=== PATIENT | male | born 1965 | race Caucasian/White ===

== ENCOUNTER 2020-01-13 06:44 | Emergency (ER) | payer MEDICARE, MEDICAID, SELFPAY ==
[2020-01-13 06:44] VITALS: BP 256/114; PULSE 95; RESP 24; TEMP 36.2; O2SAT 100
[2020-01-13] MEDS: GLUCOSE ORAL GEL 15 GM OF GLUCSE IN 37.5 GM TUBE (06:54)
[2020-01-13] MEDS: DEXTROSE 50% 25 GM/50 ML SYRINGE (06:54)
[2020-01-13 06:55] VITALS: PULSE 94
--- NOTE | 2020-01-13 06:55 | ECG_ITS ---
Measurements Intervals [place] Rate: 94 P: 65 VT: 169 QRS: 86 QRSD: 93 T: 0 QT: 341 QTc: 427 Interpretive Statements SINUS RHYTHM POSSIBLE LEFT ATRIAL ENLARGEMENT BORDERLINE ST-T WAVE ABNORMALITY- DIFFUSE LEADS BASELINE ARTIFACT- V1-V2, V4-V5 BORDERLINE ECG Electronically Signed On 01-13-2020 7:06:25 [employer]INTER PLATE by Edmond Elias D.O.
--- NOTE | 2020-01-13 06:56 | ED.GENADULT ---
HPI - General Adult General Chief complaint: Unspecified Stated complaint: low bs Time Seen by Provider: 01/13/20 06:55 Source: patient and EMS Mode of arrival: EMS Limitations: no limitations History of Present Illness HPI narrative: Patient presented via EMS for hypoglycemia. Per EMS report, they were called to patient's home by the patient's for the patient was found to have a blood sugar in the 30s, had altered mental status, confused, slightly combative. Patient was given intramuscular glucagon, transported to our facility. At the time of initial assessment, the patient is awake and alert. He has no reports of pain. He reports taking too much insulin and not eating any food. Earlier in the night, the EMS record also been called for hypoglycemia, patient had been given dextrose, and the patient had refused transport. Patient follows with Dr. Huynh, he is a hemodialysis patient obtaining hemodialysis Monday, Monday, Monday. Patient denies any recent medication changes. No recent illnesses. He denies any head, chest, or abdominal pain. He denies nausea or vomiting. He denies diarrhea. Related Data Home Medications Medication Instructions Recorded Confirmed nicotine 21 mg/24 hr daily See Rx Instructions .ROUTE .COMPLEX 09/23/19 12/20/19 transdermal patch pantoprazole 40 mg tablet,delayed 40 mg PO DAILY tablet 09/23/19 12/20/19 release tamsulosin 0.4 mg capsule 0.4 mg PO DAILY 09/23/19 12/20/19 B complex-vitamin C-folic acid 1 tablet PO DAILY 11/07/19 12/20/19 cholecalciferol (vitamin D3) 2,000 unit PO DAILY 11/07/19 12/20/19 Lantus U-100 Insulin 10 units SUBCUT BID 12/20/19 12/20/19 calcitriol 0.25 mcg PO 3XW 12/20/19 12/20/19 calcium carbonate 200 mg calcium 200 mg PO DAILY tablet 12/22/19 12/24/19 (500 mg) chewable tablet carvedilol 25 mg tablet See Rx Instructions .ROUTE .COMPLEX 12/22/19 12/24/19 furosemide 80 mg tablet See Rx Instructions .ROUTE .COMPLEX 12/22/19 12/24/19 glucagon (human recombinant) 1 mg See Rx Instructions .ROUTE .COMPLEX 12/22/19 12/24/19 solution for injection insulin lispro 100 unit/mL See Rx Instructions SUB-Q .COMPLEX 12/22/19 12/24/19 subcutaneous solution Renal Vitamin 1 tablet PO DAILY 12/24/19 12/24/19 oxycodone 5 mg PO Q4H PRN 12/24/19 12/24/19 Allergies Allergy/AdvReac Type Severity Reaction Status Date / Time scopolamine AdvReac Severe Confusion Verified 12/20/19 07:22 Review of Systems Review of Systems: Narrative: CONSTITUTIONAL: Denies fever, chills, or sweats. EYES: Denies visual changes, redness, or discharge. ENT: Denies rhinorrhea, congestion, sore throat, or otalgia. CARDIOVASCULAR: Denies chest pain, palpitations, or edema. RESPIRATORY: Denies cough or dyspnea. GASTROINTESTINAL: Denies abdominal pain, nausea, vomiting, or diarrhea. GENITOURINARY: Denies dysuria or hematuria. SKIN: Denies rash or itching. MUSCULOSKELETAL: Denies back pain, joint pain, or myalgia. NEUROLOGIC: Denies headache, numbness, or weakness. [facility] Past Medical History Medical History Benign prostatic hyperplasia Chronic anemia Depression with anxiety End-stage renal disease on hemodialysis GERD (gastroesophageal reflux disease) Hypertension Seizure Secondary to hypoglycemia. Tobacco dependence Type 1 diabetes mellitus Diagnosed at the age of 10. Complicated by retinopathy, nephropathy, and neuropathy. Vitamin D deficiency disease Surgical History Surgical History History of spinal surgery Neurostimulator in place. Status post below knee amputation of right lower extremity December 02, 2019 at [facility]. Status post cataract extraction Status post hemorrhoidectomy Family History Family History Father Hypertension Sibling Multiple myeloma Mother Acute myelogenous leukemia Sibling Hy
[2020-01-13 06:57] LABS: Glucose Point of Care 35 (65-105)
[2020-01-13] MEDS: ONDANSETRON INJ 4 MG/2 ML VIAL IV PUSH (07:00)
--- NOTE | 2020-01-13 07:07 | PC.NURSE ---
Assumed care of pt. Pt alert and answering questions at this time. BS 146.
[2020-01-13 07:08] VITALS: BP 244/100; PULSE 92; RESP 20; O2SAT 96
[2020-01-13 07:12] LABS: Glucose Point of Care 146 (65-105)
[2020-01-13 07:13] LABS: Basophils Absolute Auto 0.1 K/mm3 (0.0-0.1); Basophils Percent Auto 0.8 % (0.2-1.2); Eosinophils Absolute Auto 0.6 K/mm3 (0-0.3); Eosinophils Percent Auto 5.3 % (0-4.4); Hematocrit 31.3 % (42.0-52.0); Hemoglobin 9.7 g/dL (14.0-18.0); Immature Granulocyte Absolute 0.07 K/mm3 (0.00-0.031); Immature Granulocyte Percent A 0.6 % (0-0.5); Lymphocytes Absolute Auto 2.23 K/mm3 (0.9-3.2); Mean Corpuscular Hemoglobin 31.9 pg (26-34); Mean Platelet Volume 9.7 fl (7.4-10.4); Monocytes Absolute Auto 1.1 K/mm3 (0.1-0.6); Monocytes Percent Auto 9.4 % (2.6-8.5); Neutrophils Absolute Auto 7.6 K/mm3 (1.3-6.7); Neutrophils Percent Auto 64.9 % (45.5-73.1); Platelet Count Result 396 k/mm3 (150-375); Red Blood Count 3.04 M/mm3 (4.6-6.20); Red Cell Distribution Width 17.2 % (11.5-14.5); White Blood Count 11.8 K/mm3 (4.5-10.0)
[2020-01-13 07:26] LABS: Glucose Point of Care 187 (65-105)
[2020-01-13 07:31] LABS: Blood Urea Nitrogen 40 mg/dL (9-20); Calcium 10.7 mg/dL (8.4-10.2); Carbon Dioxide 25 mmol/L (22-30); Chloride 100 mmol/L (98-107); Estimated Glomerular Filt Rate 7; Glucose 39 mg/dL (75-110); Potassium 5.1 mmol/L (3.4-5.0); Sodium 141 mmol/L (137-145)
[2020-01-13 07:54] VITALS: BP 247/106; PULSE 91; RESP 15; O2SAT 97
[2020-01-13 07:59] LABS: Glucose Point of Care 226 (65-105)
--- NOTE | 2020-01-13 07:59 | PC.NURSE ---
BS 226.
--- NOTE | 2020-01-13 08:22 | PC.NURSE ---
BS 246
[2020-01-13 08:24] LABS: Glucose Point of Care 246 (65-105)
== END 2020-01-13 08:20 | disposition home or self-care (01) ==
PROVIDERS: Emergency Provider Emergency Medicine; PCP Emergency Medicine
DX: E10.649 Type 1 diabetes mellitus with hypoglycemia without coma (principal); E10.22 Type 1 diabetes mellitus with diabetic chronic kidney disease; I12.0 Hypertensive chronic kidney disease with stage 5 chronic kidney disease or end stage renal disease; N18.6 End stage renal disease; Z99.2 Dependence on renal dialysis; N40.0 Benign prostatic hyperplasia without lower urinary tract symptoms; E55.9 Vitamin D deficiency, unspecified; F17.210 Nicotine dependence, cigarettes, uncomplicated; K21.9 Gastro-esophageal reflux disease without esophagitis; Z79.4 Long term (current) use of insulin; D64.9 Anemia, unspecified
CPT/HCPCS: 36415; 80048; 82948; 85025; 93005; 96374; 96375; 99284; A9270; J2405

== ENCOUNTER 2020-01-20 09:18 | Inpatient (IN) | payer MEDICARE, MEDICAID, SELFPAY ==
[2020-01-20] VITALS (31 sets, daily range): BP systolic 93–300; BP diastolic 52–140; PULSE 72–143; RESP 11–36; TEMP 35.7–37.1; O2SAT 95–100; BMI 21.4
--- NOTE | ~2020-01-20 | XR_ITS ---
XR chest 1V portable 01/21/2020 05:57 Indication: Respiratory failure Procedure: AP portable chest Comparison: Comparison to multiple prior studies sequentially, with oldest reviewed study dated 05/2020. Findings: Heart size normal. Improving interstitial edema. Possible small effusion. No pneumothorax. There is atherosclerosis. Impression: 1: Improving interstitial edema. Reviewed, dictated and finalized at location A. Impression: 1: Improving interstitial edema.
--- NOTE | ~2020-01-20 | XR_ITS ---
EXAMINATION: XR chest 1V portable DATE: 01/20/2020 10:08 INDICATION: Cough. TECHNIQUE: A single frontal view of the chest was obtained. COMPARISON: Chest single view 12/22/2019 FINDINGS: There is a diffuse interstitial pattern, consistent with mild pulmonary edema. No pleural e ffusion or pneumothorax. The heart size is normal. An electronic device overlies the abdomen. IMPRESSION: 1. Mild pulmonary edema. Reviewed, dictated and finalized at location A. IMPRESSION: 1. Mild pulmonary edema.
--- NOTE | ~2020-01-20 | US_ITS ---
EXAMINATION: US retroperitoneal duplex ltd DATE: 01/22/2020 15:20 INDICATION: Hypertension. TECHNIQUE: Multiple grayscale, color Doppler, and pulsed Doppler images of the kidneys and renal pauline suki were obtained. COMPARISON: None. FINDINGS: The aorta peak systolic velocity is 115 cm/s. The right renal artery peak systolic velocity is 71 cm/ s in the proximal segment, 64 cm/s in the mid segment, and 58 cm/s in the distal segment. The left re nal artery peak systolic velocity is 41 cm/s in the proximal segment, 57 cm/s in the mid segment, and 45 cm/s in the distal segment. IMPRESSION: 1. No Doppler evidence of renal artery stenosis. Reviewed, dictated and finalized at location A.
--- NOTE | 2020-01-20 09:17 | ED.SOB ---
HPI - SOB/Dyspnea General Chief Complaint: Shortness of Breath/Dyspnea Stated Complaint: DIFFICULTY BREATHING Time Seen by Provider: 01/20/20 09:17 Source: patient and EMS Mode of arrival: EMS Limitations: other (respiratory distress) History of Present Illness HPI Narrative: Pt is a 54 y/o male who presents to the ED, via EMS, with c/o SOB. Per EMS, pt's spouse stated that he was suddenly SOB an hour ago. Upon EMS arrival pt's O2 Sat was 76% on room air and once the pt was put on CPAP his O2 Sat was 100%. Per EMS, pt has a H/O HTN and his BP was high and his HR was 150BPM. He is a dialysis pt and gets dialysis every Monday, Monday, and Monday. Pt received dialysis on Monday and he is due for dialysis today at 12PM. He states that he still produces urine. A complete HPI is limited d/t the pt being in respiratory distress. MD elicited complaint: shortness of breath Onset (ago): hour(s) (1) Timing: constant Treatment prior to arrival: oxygen (CPAP) Related Data Home Medications Medication Instructions Recorded Confirmed nicotine 21 mg/24 hr daily 21 mg TRANSDERMAL DAILY 09/23/19 01/20/20 transdermal patch pantoprazole 40 mg tablet,delayed 40 mg PO DAILY tablet 09/23/19 01/20/20 release tamsulosin 0.4 mg capsule 0.4 mg PO DAILY 09/23/19 01/20/20 cholecalciferol (vitamin D3) 4,000 unit PO DAILY 11/07/19 01/20/20 Lantus U-100 Insulin 12 units SUBCUT QAM 12/20/19 01/20/20 calcitriol 0.25 mcg PO 3XW 12/20/19 01/20/20 carvedilol 25 mg tablet 50 mg PO BID 12/22/19 01/20/20 furosemide 80 mg tablet 80 mg PO BID 12/22/19 01/20/20 insulin lispro 100 unit/mL See Rx Instructions SUB-Q .COMPLEX 12/22/19 01/20/20 subcutaneous solution Renal Vitamin 1 tablet PO DAILY 12/24/19 01/20/20 oxycodone 5 mg PO Q6H PRN 12/24/19 01/20/20 clonidine HCl 0.4 mg PO TID 01/20/20 01/20/20 cyanocobalamin (vitamin B-12) 1,000 mcg PO DAILY 01/20/20 01/20/20 [Vitamin B-12] insulin glargine [Lantus Solostar 10 unit SUBCUT HS 01/20/20 01/20/20 U-100 Insulin] Allergies Allergy/AdvReac Type Severity Reaction Status Date / Time scopolamine AdvReac Severe Confusion Verified 12/20/19 07:22 Review of Systems Review of Systems: Narrative: A complete ROS is limited d/t pt being in respiratory distress. Respiratory: Respiratory: Reports dyspnea Genitourinary: Genitourinary: Reports other (able to produce urine) [facility] Past Medical History Medical History Benign prostatic hyperplasia Chronic anemia Depression with anxiety End-stage renal disease on hemodialysis GERD (gastroesophageal reflux disease) Hypertension Seizure Secondary to hypoglycemia. Tobacco dependence Type 1 diabetes mellitus Diagnosed at the age of 10. Complicated by retinopathy, nephropathy, and neuropathy. Vitamin D deficiency disease Surgical History Surgical History History of spinal surgery Neurostimulator in place. Status post below knee amputation of right lower extremity December 02, 2019 at [facility]. Status post cataract extraction Status post hemorrhoidectomy Family History Family History Father Hypertension Sibling Multiple myeloma Mother Acute myelogenous leukemia Sibling Hypertension Sibling Hypertension Sibling Hypertension Social History Social History Social History: The patient lives in [place] with his and their 22-year-old daughter. He is on disability. he designates his , Rosana, as his surrogate decision maker and he wishes to be a full code. He is a smoker, between 1 and 2 packs a day. He smokes marijuana daily. He denies significant alcohol use. Smoking packs per day: 2 Smoking cigarettes per day: 40.0 Years smoked: 32 Smoking pack-years: 64.00 Smoking status: Current every day smoker Riky
--- NOTE | 2020-01-20 09:19 | ECG_ITS ---
Measurements Intervals [place] Rate: 144 P: 52 MN: 133 QRS: 77 QRSD: 90 T: 93 QT: 266 QTc: 412 Interpretive Statements SINUS TACHYCARDIA, POSSIBLE ATRIAL FLUTTER NONSPECIFIC ST & T-WAVE ABNORMALITY- INF/LAT LEADS BASELINE WANDER- V4-V6 ABNORMAL ECG Electronically Signed On 01-20-2020 9:29:18 CDT by Edmond Elias D.O.
[2020-01-20 09:29] LABS: Base Excess ABG -7.8 mEq/l (+/-2.0); Fractional Inspired Oxygen 100 %; HCO3 ABG 20.3 mEq/l (22.0-26.0); Oxygen Content ABG 15.8 %vol (16.0-22.0); Oxygen Saturation ABG 99.8 % (95.0-100.0); PCO2 ABG 53.5 mmHg (35.0-45.0); PO2 ABG 538.5 mmHg (80.0-100.0); PO2 FiO2 Ratio Arterial Blood 5.39 %; Total Hemoglobin 10.5 g/dL (12.0-18.0)
[2020-01-20 09:30] LABS: Device NON-INVASIVE VENT; Modified Allen's Test Pass; Site Drawn RIGHT RADIAL; pH ABG 7.197 (7.350-7.450)
[2020-01-20 09:31] LABS: Non-Invasive Expiratory Pressure 8 CMH2O; Non-Invasive Inspiratory Pressure 14 CMH2O; Non-Invasive Vent Rate 20 /MIN
[2020-01-20] MEDS: NITROGLYCERIN OINTMENT 1 INCH DOSE TRANSDERM (09:31)
[2020-01-20 09:43] LABS: Glucose Point of Care 352 (65-105)
[2020-01-20] MEDS: FUROSEMIDE INJ 40 MG/4 ML VIAL IV PUSH ×2 (09:48→11:07)
[2020-01-20 10:12] LABS: Basophils Absolute Auto 0.1 K/mm3 (0.0-0.1); Basophils Percent Auto 0.7 % (0.2-1.2); Eosinophils Absolute Auto 0.9 K/mm3 (0-0.3); Hematocrit 30.2 % (42.0-52.0); Hemoglobin 9.4 g/dL (14.0-18.0); Immature Granulocyte Absolute 0.11 K/mm3 (0.00-0.031); Immature Granulocyte Percent A 0.6 % (0-0.5); Lymphocytes Absolute Auto 3.09 K/mm3 (0.9-3.2); Lymphocytes Percent Auto 16.9 % (18.3-44.2); Mean Corpuscular HGB Conc 31.1 g/dl (32-36); Mean Corpuscular Hemoglobin 32.2 pg (26-34); Mean Corpuscular Volume 103.4 fl (80-100); Mean Platelet Volume 10.5 fl (7.4-10.4); Monocytes Absolute Auto 1.3 K/mm3 (0.1-0.6); Monocytes Percent Auto 7.1 % (2.6-8.5); Neutrophils Absolute Auto 12.8 K/mm3 (1.3-6.7); Neutrophils Percent Auto 69.7 % (45.5-73.1); Platelet Count Result 377 k/mm3 (150-375); Red Blood Count 2.92 M/mm3 (4.6-6.20); Red Cell Distribution Width 18.1 % (11.5-14.5); White Blood Count 18.3 K/mm3 (4.5-10.0)
[2020-01-20 10:25] LABS: Prothrombin Time 12.6 Seconds (11.1-14.7)
[2020-01-20 10:26] LABS: Partial Thromboplastin Time 34.3 SECONDS (22.3-36.8)
[2020-01-20] MEDS: NITROGLYCERIN/D5W 200 MCG/ML 50 MG/250 ML BTL IV CONT (11:42)
--- NOTE | 2020-01-20 12:13 | PC.NURSE ---
Nitro paste removed after Nitro Drip administration
--- NOTE | 2020-01-20 12:15 | ECG_ITS ---
Measurements Intervals [place] Rate: 115 P: 24 CA: 194 QRS: 52 QRSD: 126 T: 134 QT: 298 QTc: 414 Interpretive Statements SINUS OR ECTOPIC ATRIAL TACHYCARDIA INTRAVENTRICULAR CONDUCTION DELAY ST-T WAVE ABNORMALITY IN ANTEROLAT/LAT LEADS- CONSIDER ISCHEMIA ABNORMAL ECG Electronically Signed On 01-20-2020 13:05:47 CDT by Edmond Elias D.O.
[2020-01-20 12:30] LABS: Alanine Aminotransferase 18 U/L (4-50); Albumin Level 4.6 g/dL (3.5-5.1); Alkaline Phosphatase 110 U/L (38-126); Aspartate Amino Transferase 28 U/L (17-59); Bilirubin,Total 0.6 mg/dL (0.2-1.3); Blood Urea Nitrogen 51 mg/dL (9-20); Calcium 9.4 mg/dL (8.4-10.2); Carbon Dioxide 22 mmol/L (22-30); Chloride 100 mmol/L (98-107); Estimated Glomerular Filt Rate 6; Glucose 384 mg/dL (75-110); Sodium 139 mmol/L (137-145)
[2020-01-20 12:31] LABS: Potassium 6.5 mmol/L (3.4-5.0)
[2020-01-20 12:38] LABS: Troponin I 0.027 ng/mL (0.000-0.034)
--- NOTE | 2020-01-20 12:48 | WPDCNINT ---
Assessment and Plan Assessment and plan (1) Acute respiratory failure with hypoxia: Code(s): J96.01 - Acute respiratory failure with hypoxia Status: Acute Assessment and Plan: acute hypoxic and hypercapnic respiratory failure secondary to pulmonary edema from volume overload secondary to end-stage renal disease and cardiomyopathy ABG and chest x-ray reviewed Lasix given plan to start dialysis as soon as possible to remove fluid. will recheck ABG post hemodialysis and will try to wean off BiPAP. Continue BiPAP for now. May need intubation if respiratory status worsens. (2) Hypertensive emergency: Code(s): I16.1 - Hypertensive emergency Status: Acute Assessment and Plan: patient on nitroglycerin infusion and I will add IV Lopressor. once patient is able to take p.o. I will resume patient's Coreg, clonidine and other medication (3) End-stage renal disease on hemodialysis: Code(s): N18.6 - End stage renal disease; Z99.2 - Dependence on renal dialysis Status: Acute Assessment and Plan: patient is due for hemodialysis today and comes in with volume overload and hyperkalemia. Nephrology consulted for hemodialysis and plan to start soon. Please see below for specific treatment for for hyperkalemia and volume overload (4) Acute hyperkalemia: Code(s): E87.5 - Hyperkalemia Status: Acute Assessment and Plan: Sodium bicarbonate 50 mg IV insulin regular 10 units IV x1 . Will not give any dextrose as patient is already hyperglycemic. hemodialysis as soon as possible (5) Pulmonary edema: Code(s): J81.1 - Chronic pulmonary edema Status: Acute Assessment and Plan: patient was given Lasix in the ED but patient will be started on dialysis soon to remove fluid (6) Type 1 diabetes mellitus: Code(s): E10.9 - Type 1 diabetes mellitus without complications Status: Acute Assessment and Plan: uncontrolled hyperglycemia .Patient will be given regular insulin of hyperkalemia. I will also resume patient's Lantus. Patient also be put on q.4 hours sliding scale. If unable to be controlled I will start patient on IV insulin infusion. Patient NPO at this time (7) CAD (coronary artery disease): Code(s): I25.10 - Atherosclerotic heart disease of [place] coronary artery without angina pectoris Status: Acute Assessment and Plan: continue aspirin, Plavix, statin and beta-graciela (8) Cardiomyopathy: Code(s): I42.9 - Cardiomyopathy, unspecified Status: Acute Assessment and Plan: see above. Dialysis for volume management Additional Plan DVT prophylaxis - SCDs for now under blood pressure is controlled Stress ulcer prophylaxis - resume home PPI Nutrition - NPO Code Status - Full Code which I confirmed with the patient's Patient's and daughter updated at bedside Total Critical Care Time - 40 minutes Due to a high probability of clinically significant, life threatening deterioration, the patient required my highest level of preparedness to intervene emergently and I personally spent this critical care time directly and personally managing the patient. This critical care time included obtaining a history; examining the patient; pulse oximetry; ordering and review of studies; arranging urgent treatment with development of a management plan; evaluation of patient's response to treatment; frequent reassessment; and discussions with other providers. It was exclusive of separately billable procedures and treating other patients and teaching time. 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 Per EMS, pt's spouse stated that he was suddenly SOB an hour ago. He is a dialysis pt and gets joel
--- NOTE | 2020-01-20 13:01 | ADMGEN ---
This patient, Ish Corley, was admitted to Intensive Care Unit-8. Patient/family oriented to hospital policies and general routines including ID bracelet, bed and alarms, visiting hours, pain management, procedures, bathroom and other care routines, personal items, smoking policy, room service/diet, and visiting hours. Valuables list has been completed. Information on how to activate the Rapid Response Team has been discussed. Patient/Family are encouraged to report perceived risks to care and to ask questions if they do not understand what they are told or what they should do.
[2020-01-20 13:06] LABS: Glucose Point of Care 386 (65-105)
[2020-01-20] MEDS: SODIUM BICARBONATE 8.4% 50 MEQ/50 ML VIAL IV PUSH (13:19)
[2020-01-20] MEDS: INSULIN HUMAN REGULAR (*BKC) 100 UNITS/ML 10 UNITS IV PUSH (13:22)
[2020-01-20 14:14] LABS: NT Pro B Type Natriuretic Pept > 35000 PG/ML (5-100)
[2020-01-20 14:17] LABS: Glucose Point of Care 292 (65-105)
[2020-01-20] MEDS: INSULIN GLARGINE (*BKC) 100 UNITS/ML 20 UNITS SUB-Q (14:22)
[2020-01-20 14:48] LABS: Hepatitis B Surface Antigen Negative (Negative)
[2020-01-20 15:56] LABS: Hepatitis B Surface Anti Res Positive
[2020-01-20 17:03] LABS: Glucose Point of Care 163 (65-105)
--- NOTE | 2020-01-20 18:30 | PM.PNNEP ---
Progress Note: A&P Assessment and Plan (1) End stage renal disease: Code(s): N18.6 - End stage renal disease Status: Acute (2) Hypertensive urgency: Code(s): I16.0 - Hypertensive urgency Status: Acute (3) Pulmonary edema: Code(s): J81.1 - Chronic pulmonary edema Status: Acute (4) Acute hyperkalemia: Code(s): E87.5 - Hyperkalemia Status: Acute Assessment and Plan: . Additional Plan HD today and possibly tomorrow FULL CONSULT TO FOLLOW Subjective Date/time seen: 01/20/20 18:30 Tolerating dialysis at the time of my visit (seen on HD at ~ 5:30PM); BiPAP in place and appears relatively comfortable; no other issues or problems noted at this time. Exam Narrative: Exam Narrative: General: WD/WN male in NAD Heart: normal S1 and S2; no rub Lungs: coarse with bibasilar crackles Abdomen: soft, nontender, nondistended, positive bowel sounds Extremities: no cyanosis or clubbing; trace edema Skin: warm and dry Objective Data Vital Signs Vital Signs: Vital Signs Temp Pulse Pulse Resp BP BP Pulse Ox 01/20/20 18:00 88 18 119/77 100 01/20/20 17:30 37.0 C 89 22 H 124/68 01/20/20 17:15 74 100/85 01/20/20 16:45 87 129/70 01/20/20 16:41 99 24 H 100 01/20/20 16:30 99 100/74 01/20/20 16:15 96 104/67 01/20/20 16:00 97 18 96/63 L 100 01/20/20 15:45 72 93/63 L 01/20/20 15:30 98 96/56 L 01/20/20 15:15 98 109/62 01/20/20 15:00 77 114/67 01/20/20 14:45 78 109/66 01/20/20 14:30 93 97/63 L 01/20/20 14:18 97 24 H 100 01/20/20 14:15 92 108/67 01/20/20 14:00 92 22 H 109/69 100 01/20/20 13:45 92 128/64 01/20/20 13:36 92 183/83 H 01/20/20 13:00 37.1 C 102 H 78 24 H 161/71 H 99 01/20/20 12:48 110 H 31 H 100 01/20/20 12:22 116 H 26 H 208/117 H 100 01/20/20 12:07 119 H 33 H 95 01/20/20 10:11 132 H 01/20/20 10:10 99 01/20/20 09:22 35.7 C L 143 H 36 H 300/140 H 100 01/20/20 09:18 142 H 34 H 100 Intake/Output Intake/Output: Intake & Output 01/17/20 01/18/20 01/19/20 01/20/20 22:59 22:59 23:59 23:59 Intake Total 0 Balance 0 Meds/Results Medications: Active Medications Generic Name Dose Route Start Last Admin Trade Name Freq PRN Reason Stop Dose Admin Albuterol 2.5 mg 01/20/20 12:41 Albuterol Sulf Neb 2.5mg/0.5ml INHALATION Q4HRT PRN Shortness Of Breath Aspirin 81 mg 01/20/20 09:00 01/20/20 16:39 Aspirin Ec PO Not Given QAM [facility] Atorvastatin Calcium 40 mg 01/20/20 09:00 01/20/20 16:39 Lipitor PO Not Given DAILY [facility] Carvedilol 50 mg 01/20/20 13:08 Coreg PO Q12HR [facility] Clonidine HCl 0.2 mg 01/20/20 14:00 01/20/20 16:40 Catapres PO Not Given Q8H [facility] Clopidogrel Bisulfate 75 mg 01/20/20 09:00 01/20/20 16:39 Plavix PO Not Given QAM [facility] Dextrose 12.5 gm 01/20/20 13:10 Dextrose 50% Syringe IV PUSH PRN PRN Hypoglycemia Protocol Glucagon 1 mg 01/20/20 13:10 Glucagon For Inj IM PRN PRN Hypoglycemia Protocol Glucose 15 gm 01/20/20 13:10 Glutose 15 PO PRN PRN Hypoglycemia Protocol Nitroglycerin/Dextrose 50 mg in 250 mls @ 0 mls/hr 01/20/20 10:55 01/20/20 14:00 Nitroglycerin In 5% Dextrose 50 Mg IV CONT 0 mcg/min .Q0M MARTHA 0 mls/hr Infusion 0 MCG/MIN Dextrose 1,000 mls @ 100 mls/hr 01/20/20 13:10 Dextrose 5% 1,000 Ml IVPB PRN PRN Hypoglycemia Protocol Insulin Aspart 3 - 6 units 01/20/20 13:10 01/20/20 17:42 Novolog SUB-Q Not Given Q4H MARTHA Protocol Insulin Glargine 20 units 01/20/20 13:09 01/20/20 14:22 Lantus SUB-Q 20 units DAILY MARTHA Administration Ipratropium [place] 0.5 mg 01/20/20 12:41 Atrovent Neb INHALATION Q4HRT PRN [place]
[2020-01-20 18:34] LABS: Alveolar/Arterial O2 Gradient 85.3 mmHg; Base Excess ABG 6.2 mEq/l (+/-2.0); Fractional Inspired Oxygen 50 %; Oxygen Content ABG 14.3 %vol (16.0-22.0); Oxygen Saturation ABG 99.6 % (95.0-100.0); Oxyhemoglobin 97.9 % THb (90.0-100.0); PCO2 ABG 40.1 mmHg (35.0-45.0); PO2 ABG 226.1 mmHg (80.0-100.0); PO2 FiO2 Ratio Arterial Blood 4.52 %; pH ABG 7.492 (7.350-7.450)
[2020-01-20 18:35] LABS: Device NON-INVASIVE VENT; Non-Invasive Expiratory Pressure 8 CMH2O; Non-Invasive Inspiratory Pressure 14 CMH2O; Non-Invasive Vent Rate 20 /MIN; Site Drawn RIGHT BRACHIAL
[2020-01-20 19:24] LABS: Blood Urea Nitrogen 22 mg/dL (9-20); Calcium 8.6 mg/dL (8.4-10.2); Carbon Dioxide 32 mmol/L (22-30); Chloride 95 mmol/L (98-107); Estimated CRCL calculation 17 ml/min; Estimated Glomerular Filt Rate 16; Glucose 146 mg/dL (75-110); Sodium 138 mmol/L (137-145)
--- NOTE | 2020-01-20 20:30 | PM.IMHP ---
H&P: HPI History of Present Illness Chief complaint: Shortness of breath. Narrative: Ish Corley is a 54-year-old male with type 1 diabetes mellitus diagnosed at the age of 10, end-stage renal disease on hemodialysis, and hypertension who presented to the emergency department earlier this morning via EMS for evaluation of shortness of breath. The patient is known to myself and the hospitalists and in fact was just admitted to our service December 20 through December 24, 2019. At that time he came in with shortness of breath, and was admitted with hypertensive urgency, volume overload, acute respiratory failure with hypoxia, and mild diabetic ketoacidosis. He received dialysis with improvement in blood pressures, and was able to be weaned off of his BiPAP. Due to mention of some chest pain and elevated troponins, he was taken to the cardiac cath lab manager which showed high-grade stenosis in the LAD which was stented. He has been doing quite well since that time. Unfortunately last night he did not sleep well due to shortness of breath, and around 07:30 his heard him making ?weird noises? and when she went to check on him, he was in significant respiratory distress and was pale and diaphoretic. In the emergency department his blood pressure was as high as 300/140 and he was started on a nitro drip. Interestingly, his chest x-ray showed only mild pulmonary edema. ABG showed a pH of 7.197, pCO2 of 53.5, PO2 of 538.5, and a bicarb of 20.3. He was placed on a CPAP per EMS and was transitioned to BiPAP on arrival. Potassium was 6.5, and he urgently started on dialysis. At the time my evaluation, he is post dialysis and has been weaned off the BiPAP. He is feeling much better at this time. He denies chest pain, pleuritic pain, shortness breath, nausea, vomiting, and diaphoresis. He states compliance with his home medications, and fact will double his clonidine dose if his blood pressures get too high. He still urinates a bit, and has not noticed a change in urine output. No fever, chills, or sweats. Denies blurry vision, polydipsia, and polyuria. Review of Systems Review of Systems: Narrative: Twelve systems were reviewed with pertinent positives and negatives as per HPI. Except as documented, all other systems were reviewed and are negative. [facility] Past Medical History Medical History (Updated 01/21/20 @ 00:18 by Anai Balderas PA-C) Benign prostatic hyperplasia Chronic anemia Coronary artery disease With non STEMI in December 2019, with stent placed to the LAD. Depression with anxiety End-stage renal disease on hemodialysis GERD (gastroesophageal reflux disease) Hypertension Seizure Secondary to hypoglycemia. Tobacco dependence Type 1 diabetes mellitus Diagnosed at the age of 10. Complicated by retinopathy, nephropathy, and neuropathy. Hemoglobin A1c was 8.1% in December 2019. Vitamin D deficiency disease Surgical History Surgical History History of spinal surgery Neurostimulator in place. Status post below knee amputation of right lower extremity December 02, 2019 at [facility]. Status post cataract extraction Status post hemorrhoidectomy Family History Family History Father Hypertension Sibling Multiple myeloma Mother Acute myelogenous leukemia Sibling Hypertension Sibling Hypertension Sibling Hypertension Social History Social History Social History: The patient lives in [place] with his and their 22-year-old daughter. He is on disability. he designates his , Rosana, as his surrogate decision maker and he wishes to be a full code. He is a smoker, between 1 and 2 packs a day. He smokes marijuana daily. He denies significant alcohol use. Smoking packs per day: 2 Smoking cigarettes per day: 40.0 Years smoked: 32
[2020-01-20 21:01] LABS: Glucose Point of Care 84 (65-105)
[2020-01-20] MEDS: carvediloL 25 MG TABLET 50 MG PO (21:05)
[2020-01-20] MEDS: CLONIDINE HCL 0.2 MG TABLET PO (21:05)
[2020-01-21] VITALS (21 sets, daily range): BP systolic 102–178; BP diastolic 54–79; PULSE 71–86; RESP 12–18; TEMP 35.4–36.9; O2SAT 90–100
[2020-01-21 00:35] LABS: Glucose Point of Care 159 (65-105)
[2020-01-21 04:28] LABS: Glucose Point of Care 99 (65-105)
[2020-01-21 04:50] LABS: Basophils Percent Auto 0.4 % (0.2-1.2); Eosinophils Absolute Auto 0.2 K/mm3 (0-0.3); Hematocrit 25.9 % (42.0-52.0); Hemoglobin 8.2 g/dL (14.0-18.0); Immature Granulocyte Absolute 0.06 K/mm3 (0.00-0.031); Immature Granulocyte Percent A 0.5 % (0-0.5); Lymphocytes Absolute Auto 1.82 K/mm3 (0.9-3.2); Lymphocytes Percent Auto 16.4 % (18.3-44.2); Mean Corpuscular HGB Conc 31.7 g/dl (32-36); Mean Corpuscular Hemoglobin 31.7 pg (26-34); Mean Platelet Volume 9.2 fl (7.4-10.4); Monocytes Absolute Auto 0.8 K/mm3 (0.1-0.6); Monocytes Percent Auto 7.4 % (2.6-8.5); Neutrophils Absolute Auto 8.1 K/mm3 (1.3-6.7); Neutrophils Percent Auto 73.3 % (45.5-73.1); Platelet Count Result 286 k/mm3 (150-375); Red Blood Count 2.59 M/mm3 (4.6-6.20); Red Cell Distribution Width 17.4 % (11.5-14.5); White Blood Count 11.1 K/mm3 (4.5-10.0)
[2020-01-21 05:11] LABS: Alanine Aminotransferase 12 U/L (4-50); Albumin Level 3.3 g/dL (3.5-5.1); Alkaline Phosphatase 69 U/L (38-126); Aspartate Amino Transferase 23 U/L (17-59); Bilirubin,Total 0.4 mg/dL (0.2-1.3); Blood Urea Nitrogen 27 mg/dL (9-20); Calcium 8.7 mg/dL (8.4-10.2); Carbon Dioxide 31 mmol/L (22-30); Chloride 98 mmol/L (98-107); Estimated CRCL calculation 14 ml/min; Estimated Glomerular Filt Rate 12; Glucose 100 mg/dL (75-110); Magnesium 2.4 mg/dL (1.6-2.3); Phosphorus 6.5 mg/dL (2.5-4.5); Potassium 3.5 mmol/L (3.4-5.0); Sodium 137 mmol/L (137-145)
[2020-01-21] MEDS: CLONIDINE HCL 0.2 MG TABLET PO ×3 (05:30→23:10)
--- NOTE | 2020-01-21 06:04 | PC.NURSE ---
Dialysis nurse relocation specialist Jeremiah notified of dialysis orders for 01/21/20
--- NOTE | 2020-01-21 07:30 | WPDINTPN ---
Progress Note: A&P Assessment and Plan (1) Acute respiratory failure with hypoxia: Code(s): J96.01 - Acute respiratory failure with hypoxia Status: Acute Assessment and Plan: acute hypoxic and hypercapnic respiratory failure secondary to pulmonary edema from volume overload secondary to end-stage renal disease and cardiomyopathy resolved has patient was given Lasix yesterday and then received hemodialysis with 2 L of fluid removed. Patient now on room air planned for another hemodialysis session today (2) Hypertensive emergency: Code(s): I16.1 - Hypertensive emergency Status: Acute Assessment and Plan: patient was started on nitroglycerin infusion on admission and I added IV Lopressor. now patient is able to take p.o. and off of nitroglycerin infusion continue Coreg, clonidine and other medications BP is controlled (3) End-stage renal disease on hemodialysis: Code(s): N18.6 - End stage renal disease; Z99.2 - Dependence on renal dialysis Status: Acute Assessment and Plan: patient received hemodialysis yesterday for volume overload and hyperkalemia. K level is normal today. Plan for another session of hemodialysis today. (4) Acute hyperkalemia: Code(s): E87.5 - Hyperkalemia Status: Acute Assessment and Plan: Received Sodium bicarbonate 50 mg IV, insulin regular 10 units IV x1 . and then dialysis potassium level normal today plan for another dialysis session today (5) Pulmonary edema: Code(s): J81.1 - Chronic pulmonary edema Status: Acute Assessment and Plan: resolved (6) Type 1 diabetes mellitus: Qualifiers: Diabetes mellitus complication status: with kidney complications Diabetes mellitus complication detail: with chronic kidney disease Chronic kidney disease stage: on chronic dialysis Qualified Code(s): E10.22 - Type 1 diabetes mellitus with diabetic chronic kidney disease; N18.6 - End stage renal disease; Z99.2 - Dependence on renal dialysis Code(s): E10.9 - Type 1 diabetes mellitus without complications Status: Acute Assessment and Plan: resume diet, Lantus and sliding scale (7) CAD (coronary artery disease): Code(s): I25.10 - Atherosclerotic heart disease of [place] coronary artery without angina pectoris Status: Acute Assessment and Plan: continue aspirin, Plavix, statin and beta-graciela (8) Cardiomyopathy: Code(s): I42.9 - Cardiomyopathy, unspecified Status: Acute Assessment and Plan: see above. Dialysis for volume management Additional Plan DVT prophylaxis - SCDs for now. patient will likely be discharged today Stress ulcer prophylaxis - continue home PPI Nutrition - advance diet Code Status - Full Code which I confirmed with the patient's patient will be transferred to ICU today and will likely be discharged post his dialysis session Case discussed with internal medicine physician Subjective Date/time seen: 01/21/20 0730 Interval history: Date of Service: 01/21/2020. Admitted with acute respiratory failure secondary to pulmonary edema, hypertensive emergency. Patient known diabetic with end-stage renal disease on hemodialysis. . Patient received hemodialysis yesterday and 2 L fluid was removed. Patient feels much better this morning. On room air. No chest pain. No shortness of breath. No abdominal pain. No nausea or vomiting. No complaints. Would like to go home. Would like to eat food. Requested Ativan for anxiety. Review of Systems Review of Systems: All systems reviewed & are unremarkable except as noted in HPI and below Exam Narrative: Exam Narrative: General: Pt is alert awake and in NAD Lungs/Chest: Trachea central Clear BS B/L, No crackles or wheezing. Cardiac: RRR. Normal S1 S2. No murmurs Circulation: Pedal pulses are intact and symmetrical. Abdomen: Normal bowel sounds.. Soft
--- NOTE | 2020-01-21 08:28 | PM.IMPN ---
Progress Note: A&P Assessment and Plan (1) Acute on chronic respiratory failure with hypoxia and hypercapnia: Code(s): J96.21 - Acute and chronic respiratory failure with hypoxia; J96.22 - Acute and chronic respiratory failure with hypercapnia Status: Acute Assessment and Plan: Result of volume overload. No longer requiring BiPAP. Now on room air. Improved after dialysis yesterday. Plan for additional dialysis session today. Discussed with director global strategic publisher sales. Possible discharge later today if stable after dialysis or at least transfer to medical floor. Transferred to medical floor as dialysis late today. Hopeful discharge tomorrow. (2) Hypertensive emergency: Code(s): I16.1 - Hypertensive emergency Status: Acute Assessment and Plan: Started on nitroglycerin infusion on admission but no longer requiring since dialysis yesterday. Telemetry reviewed on 01/21/2020 with sinus rhythm. (3) End-stage renal disease on hemodialysis: Code(s): N18.6 - End stage renal disease; Z99.2 - Dependence on renal dialysis Status: Acute Assessment and Plan: Nephrology consulted and appreciate input. Did receive dialysis yesterday. Plan for dialysis again today. (4) Type 1 diabetes mellitus: Qualifiers: Chronic kidney disease stage: on chronic dialysis Diabetes mellitus complication detail: with chronic kidney disease Diabetes mellitus complication status: with kidney complications Qualified Code(s): E10.22 - Type 1 diabetes mellitus with diabetic chronic kidney disease; N18.6 - End stage renal disease; Z99.2 - Dependence on renal dialysis Code(s): E10.9 - Type 1 diabetes mellitus without complications Status: Acute Assessment and Plan: Recent hemoglobin A1c 8.1. Was hyperglycemic on arrival but glucose now improved on review on 01/21/2020. Will continue home insulin doses. Sliding scale insulin available as needed. Will monitor. (5) Acute hyperkalemia: Code(s): E87.5 - Hyperkalemia Status: Acute Assessment and Plan: Potassium 6.5 on presentation. Now corrected since hemodialysis with current level 3.5. Will continue to monitor. (6) Coronary artery disease: Qualifiers: Associated angina: without angina Coronary Disease-Associated Artery/Lesion type: [place] artery [place] vs. transplanted heart: [place] heart Qualified Code(s): I25.10 - Atherosclerotic heart disease of [place] coronary artery without angina pectoris Code(s): I25.10 - Atherosclerotic heart disease of [place] coronary artery without angina pectoris Status: Acute Assessment and Plan: Recent stent to LAD. Will continue ASA, Plavix, atorvastatin and Coreg. Will continue to monitor. (7) DVT prophylaxis: Code(s): Z29.9 - Encounter for prophylactic measures, unspecified Status: Acute Assessment and Plan: SCDs. Time Spent With Patient Time with patient: 15 - 25 minutes Subjective Date/time seen: 01/21/20 08:28 Interval history: Date of Service: 01/21/2020. Admitted with acute respiratory failure, hypertensive emergency. Patient known diabetic with end-stage renal disease on hemodialysis. Patient feels much better this morning. On room air. No chest pain. No shortness of breath. No abdominal pain. No nausea or vomiting. Review of Systems Review of Systems: Narrative: Feeling much better. Constitutional: Constitutional: Denies chills and Denies fever(s) ENT: Reports system reviewed and no additional complaints, except as documented Cardiovascular: Cardiovascular: Denies chest pain Respiratory: Respiratory: Denies dyspnea Gastrointestinal: Gastrointestinal: Denies abdominal pain Genitourinary: Genitourinary: Reports no additional male genitourinary complaints Musculoskeletal: Musculoskeletal: Reports no additional musculoskeletal complaints Integumentary/Breasts: Skin/Breast: Denies rash Neurologic:
[2020-01-21 09:27] LABS: Glucose Point of Care 51 (65-105)
[2020-01-21] MEDS: carvediloL 25 MG TABLET 50 MG PO (09:33)
[2020-01-21] MEDS: ATORVASTATIN 40 MG TABLET PO (09:33)
[2020-01-21] MEDS: ASPIRIN 81 MG ENTERIC TABLET PO (09:33)
[2020-01-21] MEDS: CHOLECALCIFEROL 1,000 UNIT TABLET 4000 UNITS PO (09:34)
[2020-01-21] MEDS: FUROSEMIDE 80 MG TABLET PO ×2 (09:34→17:27)
[2020-01-21] MEDS: TAMSULOSIN HCL 0.4 MG CAPSULE PO (09:34)
[2020-01-21] MEDS: VITAMIN B CMPLX/VIT C/FOLIC AC 1 CAPSULE 1 CAP PO (09:34)
[2020-01-21] MEDS: SERTRALINE HCL 25 MG TABLET PO (09:34)
[2020-01-21] MEDS: CLOPIDOGREL BISULFATE 75 MG TABLET PO (09:34)
[2020-01-21] MEDS: PANTOPRAZOLE 40 MG TABLET PO (09:34)
[2020-01-21] MEDS: CYANOCOBALAMIN 1,000 MCG TABLET 1000 MCG PO (09:34)
[2020-01-21] MEDS: NICOTINE (*PBKC) 14 MG PATCH 1 PATCH TRANSDERM (10:23)
--- NOTE | 2020-01-21 10:23 | PM.CNNEP ---
Assessment and Plan Assessment and plan (1) End stage renal disease: Code(s): N18.6 - End stage renal disease Status: Acute Assessment and Plan: HD tomorrow and continue M/W/F schedule electrolytes, volume status, and clearance acceptable (2) Hypertensive urgency: Code(s): I16.0 - Hypertensive urgency Status: Acute Assessment and Plan: doing significantly better at this time back on home BP medications etiology??? - rebound hypertension from missing clonidine? - renal artery stenosis?? - other?? follow trend of hemodynamics (3) Acute hyperkalemia: Code(s): E87.5 - Hyperkalemia Status: Acute Assessment and Plan: resolved with dialysis and medical management follow trend (4) Acute respiratory failure with hypoxia: Code(s): J96.01 - Acute respiratory failure with hypoxia Status: Acute Assessment and Plan: resolved due to pulmonary edema on admission clinically better with urgent dialysis (day of admission) and ultrafiltration was this due to flash pulmonary edema secondary to hypertensive urgency/emergency??? Will continue to follow. History of Present Illness Reason for Consult Consult date: 01/22/20 Reason for consult: end stage renal disease Chief Complaint Chief complaint: Acute resp failure w/ hypoxia,chronic renal failur History of Present Illness Narrative: The patient is a 54-year-old male with a past medical history as outlined below who presented to the emergency department yesterday morning via EMS for evaluation of shortness of breath. The night before admission, the patient was unable to sleep due to his shortness of breath. Initially, he did not think much of it and suspected that when he would go to his regular scheduled dialysis treatment the next day, it would take care of itself. Apparently, however, later the next morning, his noted that he was in significant respiratory distress associated with diaphoresis and appeared somewhat pale. She called 911 and the patient was eventually brought to the emergency room for further evaluation. Work-up in the emergency department demonstrated his blood pressure was apparently 300/140 requiring initiation of a = nitro drip. Interestingly, his chest x-ray showed only mild pulmonary edema. ABG showed a pH of 7.197, pCO2 of 53.5, PO2 of 538.5, and a bicarb of 20.3. He was placed on a CPAP per EMS and was transitioned to BiPAP on arrival. Potassium was 6.5 and was transferred to the ICU for urgent dialysis. Interestingly, he was recently hospitalized in early December 2019 for a similar presentation. At that time he came in with shortness of breath, and was admitted with hypertensive urgency, volume overload, acute respiratory failure with hypoxia, and mild diabetic ketoacidosis. He received dialysis with improvement in blood pressures, and was able to be weaned off of his BiPAP. Due to some chest pain during that hospital stay along with elevated troponins, he was taken to the laborer filter plant which showed high-grade stenosis in the LAD which was stented. He has been doing quite well since that time Renal consultation was requested due to his end stage renal disease. The patient normally dialyzes on a Monday, Monday, Monday schedule at [facility] under the care of Dr. Luke Huynh. He is, for the most part, compliant with his dialysis treatments, although he had had issues in the past where he would leave early or terminates his treatment early mainly due to issues and problems related to his severe anxiety. More recently, as noted above, he has had several admissions for hypertensive urgency associated with respiratory failure that improves with dialytic support. Currently, he is doing significantly better with regard to her respiratory status and blood pressure control. Review of Systems Review of Systems: Narrative: As per HPI.
[2020-01-21] MEDS: INSULIN GLARGINE (*BKC) 100 UNITS/ML 12 UNITS SUB-Q (10:33)
[2020-01-21 12:15] LABS: Glucose Point of Care 136 (65-105)
[2020-01-21] MEDS: INSULIN ASPART (*BKC) 100 UNITS/ML SUB-Q (17:28)
[2020-01-21 17:50] LABS: Glucose Point of Care 202 (65-105)
[2020-01-21 23:13] LABS: Glucose Point of Care 47 (65-105)
[2020-01-22] VITALS (23 sets, daily range): BP systolic 102–159; BP diastolic 46–79; PULSE 71–86; RESP 15–20; TEMP 36–37; O2SAT 97
[2020-01-22] MEDS: carvediloL 25 MG TABLET 50 MG PO ×2 (00:02→09:01)
[2020-01-22 00:12] LABS: Glucose Point of Care 258 (65-105)
[2020-01-22] MEDS: INSULIN GLARGINE (*BKC) 100 UNITS/ML 10 UNITS SUB-Q (00:13)
[2020-01-22 05:37] LABS: Glucose Point of Care 165 (65-105)
[2020-01-22 05:44] LABS: Alanine Aminotransferase 11 U/L (4-50); Albumin Level 3.4 g/dL (3.5-5.1); Alkaline Phosphatase 65 U/L (38-126); Aspartate Amino Transferase 21 U/L (17-59); Bilirubin,Total 0.4 mg/dL (0.2-1.3); Blood Urea Nitrogen 39 mg/dL (9-20); Calcium 8.5 mg/dL (8.4-10.2); Carbon Dioxide 30 mmol/L (22-30); Chloride 93 mmol/L (98-107); Estimated CRCL calculation 9 ml/min; Estimated Glomerular Filt Rate 8; Glucose 161 mg/dL (75-110); Magnesium 2.4 mg/dL (1.6-2.3); Phosphorus 8.2 mg/dL (2.5-4.5); Sodium 136 mmol/L (137-145)
[2020-01-22] MEDS: CLONIDINE HCL 0.2 MG TABLET PO (05:52)
[2020-01-22 06:03] LABS: Potassium 3.6 mmol/L (3.4-5.0)
--- NOTE | 2020-01-22 08:29 | PM.IMPN ---
Progress Note: A&P Assessment and Plan (1) Acute on chronic respiratory failure with hypoxia and hypercapnia: Code(s): J96.21 - Acute and chronic respiratory failure with hypoxia; J96.22 - Acute and chronic respiratory failure with hypercapnia Status: Acute Assessment and Plan: Result of volume overload. Improved with hemodialysis. Now remains on room air. Anticipate discharge today after regular hemodialysis session. (2) Hypertensive emergency: Code(s): I16.1 - Hypertensive emergency Status: Acute Assessment and Plan: Started on nitroglycerin infusion on admission but no longer requiring since hemodialysis on day of admission. Blood pressure reviewed on 01/22/2020 and acceptable. Continue to monitor on clonidine, Coreg and Lasix. (3) End-stage renal disease on hemodialysis: Code(s): N18.6 - End stage renal disease; Z99.2 - Dependence on renal dialysis Status: Acute Assessment and Plan: Nephrology consulted and appreciate input. Usual hemodialysis schedule is Monday, Monday, Monday. Did receive hemodialysis yesterday. Plan for hemodialysis today. (4) Type 1 diabetes mellitus: Qualifiers: Diabetes mellitus complication status: with kidney complications Diabetes mellitus complication detail: with chronic kidney disease Chronic kidney disease stage: on chronic dialysis Qualified Code(s): E10.22 - Type 1 diabetes mellitus with diabetic chronic kidney disease; N18.6 - End stage renal disease; Z99.2 - Dependence on renal dialysis Code(s): E10.9 - Type 1 diabetes mellitus without complications Status: Acute Assessment and Plan: Recent hemoglobin A1c 8.1. Was hyperglycemic on arrival but glucose now improved. Glucose reviewed on 01/22/2020 and acceptable. Will continue home insulin doses. Sliding scale insulin available as needed. Will monitor. (5) Acute hyperkalemia: Code(s): E87.5 - Hyperkalemia Status: Acute Assessment and Plan: Potassium 6.5 on presentation. Now corrected since hemodialysis with current level 3.6. Will continue to monitor while here. (6) Coronary artery disease: Qualifiers: Coronary Disease-Associated Artery/Lesion type: [place] artery [place] vs. transplanted heart: [place] heart Associated angina: without angina Qualified Code(s): I25.10 - Atherosclerotic heart disease of [place] coronary artery without angina pectoris Code(s): I25.10 - Atherosclerotic heart disease of [place] coronary artery without angina pectoris Status: Acute Assessment and Plan: Recent stent to LAD. Stable. Will continue ASA, Plavix, atorvastatin and Coreg. Will continue to monitor. (7) DVT prophylaxis: Code(s): Z29.9 - Encounter for prophylactic measures, unspecified Status: Acute Assessment and Plan: SCDs. Time Spent With Patient Time with patient: 15 - 25 minutes Subjective Date/time seen: 01/22/20 08:29 Interval history: Date of Service: 01/22/2020. Admitted with acute respiratory failure, hypertensive emergency. Patient known diabetic with end-stage renal disease on hemodialysis. Had hemodialysis very late last night. Reports did not sleep well. Okay this morning. No chest pain. No shortness of breath. No abdominal pain. Review of Systems Constitutional: Constitutional: Denies chills and Denies fever(s) Cardiovascular: Cardiovascular: Denies chest pain Respiratory: Respiratory: Denies dyspnea Gastrointestinal: Gastrointestinal: Denies abdominal pain, Denies nausea and Denies vomiting Genitourinary: Genitourinary: Reports no additional male genitourinary complaints Musculoskeletal: Musculoskeletal: Reports no additional musculoskeletal complaints Integumentary/Breasts: Skin/Breast: Denies rash Neurologic: Denies headache(s) Psychiatric: Psychiatric: Denies anxiety, Denies confusion and Denies depression Exam Narrative: Exam Narrative
[2020-01-22] MEDS: DEXTROSE 50% 25 GM/50 ML SYRINGE IV PUSH (08:51)
[2020-01-22] MEDS: ATORVASTATIN 40 MG TABLET PO (09:00)
[2020-01-22] MEDS: ASPIRIN 81 MG ENTERIC TABLET PO (09:00)
[2020-01-22] MEDS: calcitrioL 0.25 MCG CAPSULE PO (09:01)
[2020-01-22] MEDS: CYANOCOBALAMIN 1,000 MCG TABLET 1000 MCG PO (09:02)
[2020-01-22] MEDS: NICOTINE (*PBKC) 21 MG PATCH 1 PATCH TRANSDERM (09:02)
[2020-01-22] MEDS: CHOLECALCIFEROL 1,000 UNIT TABLET 4000 UNITS PO (09:02)
[2020-01-22] MEDS: FUROSEMIDE 80 MG TABLET PO ×2 (09:02→19:28)
[2020-01-22] MEDS: CLOPIDOGREL BISULFATE 75 MG TABLET PO (09:02)
[2020-01-22] MEDS: VITAMIN B CMPLX/VIT C/FOLIC AC 1 CAPSULE 1 CAP PO (09:03)
[2020-01-22] MEDS: TAMSULOSIN HCL 0.4 MG CAPSULE PO (09:03)
[2020-01-22] MEDS: SERTRALINE HCL 25 MG TABLET PO (09:03)
[2020-01-22] MEDS: PANTOPRAZOLE 40 MG TABLET PO (09:04)
[2020-01-22] MEDS: NICOTINE (*PBKC) 14 MG PATCH 1 PATCH TRANSDERM (09:04)
[2020-01-22 09:12] LABS: Glucose Point of Care 43 (65-105)
[2020-01-22] MEDS: INSULIN GLARGINE (*BKC) 100 UNITS/ML 12 UNITS SUB-Q (09:16)
--- NOTE | 2020-01-22 09:26 | PC.NURSE ---
0839-Patient glucose check 43. Administered 12.5 mg D50. Patient refused recheck. Up in bed eating breakfast. States No, I don't want it rechecked. I'm eating, I'll be fine. Will continue to monitor.
[2020-01-22 11:51] LABS: Glucose Point of Care 86 (65-105)
--- NOTE | 2020-01-22 14:53 | PC.NURSE ---
1450-Patient taken to dialysis per ICU bed.
--- NOTE | 2020-01-22 16:29 | PM.PNNEP ---
Progress Note: A&P Assessment and Plan (1) End stage renal disease: Code(s): N18.6 - End stage renal disease Status: Acute Assessment and Plan: HD today and continue M/W/ schedule while hospitalized electrolytes, volume status, and clearance acceptable (2) Hypertensive urgency: Code(s): I16.0 - Hypertensive urgency Status: Acute Assessment and Plan: resolved etiology??? possible renal artery stenosis?? - will check renal duplex to evaluate (3) Acute hyperkalemia: Code(s): E87.5 - Hyperkalemia Status: Acute Assessment and Plan: resolved with dialysis and medical management follow trend (4) Acute respiratory failure with hypoxia: Code(s): J96.01 - Acute respiratory failure with hypoxia Status: Acute Assessment and Plan: resolved due to mild pulmonary edema + #2 off oxygen/bipap and doing well Will continue to follow -- not opposed to discharge from renal perspective. Subjective Date/time seen: 01/22/20 16:29 Tolerating dialysis at the time of my visit (seen on HD at ~ 4:15PM); breathing and respiratory status doing quite well; BP under reasonable control; no acute distress voiced at this time. Exam Narrative: Exam Narrative: General: WD/WN male in NAD Heart: normal S1 and S2; no rub Lungs: clear to ausculation Abdomen: soft, nontender, nondistended, positive bowel sounds Extremities: no cyanosis or clubbing; no edema Skin: warm and dry Objective Data Vital Signs Vital Signs: Vital Signs Temp Pulse Resp BP Pulse Ox 01/22/20 15:13 37.0 C 71 18 130/74 01/22/20 15:00 71 155/73 H 01/22/20 09:01 72 01/22/20 08:00 36.8 C 72 16 153/79 H 97 01/22/20 06:02 76 15 134/59 L 01/22/20 00:02 86 01/21/20 23:15 36.8 C 86 17 178/77 H 99 01/21/20 22:15 36.6 C 74 16 146/57 H 01/21/20 22:05 72 148/70 H 01/21/20 21:30 73 154/72 H 01/21/20 21:15 71 138/66 01/21/20 21:00 76 141/75 H 01/21/20 20:45 78 148/73 H 01/21/20 20:30 78 137/63 01/21/20 20:15 81 139/66 01/21/20 20:00 36.8 C 78 16 129/63 Intake/Output Intake/Output: Intake & Output 01/19/20 01/20/20 01/21/20 01/22/20 23:59 23:59 23:59 23:59 Intake Total 0 1240 740 Output Total 2005 0 Balance 0 -765 740 Meds/Results Medications: Active Medications Generic Name Dose Route Start Last Admin Trade Name Freq PRN Reason Stop Dose Admin Albuterol 2.5 mg 01/20/20 12:41 Albuterol Sulf Neb 2.5mg/0.5ml INHALATION Q4HRT PRN Shortness Of Breath Aspirin 81 mg 01/20/20 09:00 01/22/20 09:00 Aspirin Ec PO 81 mg QAM MARTHA Administration Atorvastatin Calcium 40 mg 01/20/20 09:00 01/22/20 09:00 Lipitor PO 40 mg DAILY MARTHA Administration Calcitriol 0.25 mcg 01/22/20 09:00 01/22/20 09:01 Rocaltrol PO 0.25 mcg [id number] MARTHA Administration Carvedilol 50 mg 01/20/20 13:08 01/22/20 09:01 Coreg PO 50 mg Q12HR MARTHA Administration Clonidine HCl 0.2 mg 01/20/20 14:00 01/22/20 05:52 Catapres PO 0.2 mg Q8H MARTHA Administration Clopidogrel Bisulfate 75 mg 01/20/20 09:00 01/22/20 09:02 Plavix PO 75 mg QAM MARTHA Administration Cyanocobalamin 1,000 mcg 01/21/20 09:00 01/22/20 09:02 Vitamin B-12 Tab PO 1,000 mcg DAILY MARTHA Administration Dextrose 12.5 gm 01/20/20 13:10 01/22/20 08:51 Dextrose 50% Syringe IV PUSH 12.5 gm PRN PRN Administration Hypoglycemia Protocol Epoetin Johnnie 10,000 units 01/22/20 19:00 Epogen IV PUSH 01/22/20 19:01 ONCE ONE Furosemide 80 mg 01/21/20 09:00 01/22/20 09:02 Lasix Tablet PO 80 mg BID MARTHA Administration Glucagon 1 mg 03/09/20 13:10 Glucagon For Inj IM PRN PRN Hypoglycemia Protocol Glucose 15 gm 01/20/20 13:10 Glutose 15 PO PRN PRN Hypoglycemia Protocol Dextrose 1,000 m
--- NOTE | 2020-01-22 19:22 | PM.DS ---
DS: Diagnosis Admitting Diagnosis Admitting Diagnosis: Acute respiratory failure with hypoxia Discharge Diagnosis (1) Acute on chronic respiratory failure with hypoxia and hypercapnia: Code(s): J96.21 - Acute and chronic respiratory failure with hypoxia; J96.22 - Acute and chronic respiratory failure with hypercapnia Status: Acute (2) Hypertensive emergency: Code(s): I16.1 - Hypertensive emergency Status: Acute (3) End-stage renal disease on hemodialysis: Code(s): N18.6 - End stage renal disease; Z99.2 - Dependence on renal dialysis Status: Acute (4) Type 1 diabetes mellitus: Qualifiers: Diabetes mellitus complication status: with kidney complications Diabetes mellitus complication detail: with chronic kidney disease Chronic kidney disease stage: on chronic dialysis Qualified Code(s): E10.22 - Type 1 diabetes mellitus with diabetic chronic kidney disease; N18.6 - End stage renal disease; Z99.2 - Dependence on renal dialysis Code(s): E10.9 - Type 1 diabetes mellitus without complications Status: Acute (5) Acute hyperkalemia: Code(s): E87.5 - Hyperkalemia Status: Acute (6) Coronary artery disease: Qualifiers: Coronary Disease-Associated Artery/Lesion type: [place] artery [place] vs. transplanted heart: [place] heart Associated angina: without angina Qualified Code(s): I25.10 - Atherosclerotic heart disease of [place] coronary artery without angina pectoris Code(s): I25.10 - Atherosclerotic heart disease of [place] coronary artery without angina pectoris Status: Acute DS: Summary Hospital Course Reason for hospitalization: Shortness of breath. Hospital Course: Date of Service of Discharge: January 22, 2020. History of Present Illness: Patient is a 54-year-old gentleman with type 1 diabetes mellitus, end-stage renal disease on hemodialysis and hypertension who presented to the emergency room by EMS for evaluation of shortness of breath. Patient was admitted at [facility] from 12/20/2019 through 12/24/2019 for hypertensive urgency, volume overload, acute respiratory failure and mild diabetic ketoacidosis at that time. He did also have cardiac catheterization at that time with high-grade stenosis in the LAD which was stented. He has been doing well since that hospitalization but developed shortness of breath the night before presentation. At approximately 7:30 a.m. on the morning of presentation heard him making ?weird noises?. When she went to check on him he was in significant respiratory distress, pale and diaphoretic. As result, EMS was called with patient brought to the emergency room. In the emergency room, he had significantly elevated blood pressure as high as 300/140. He was therefore started on a nitroglycerin drip. Potassium was also noted to be elevated at 6.5. Bid Clerk and Nephrology were consulted. Patient was then admitted with plan for emergent hemodialysis. Course in Hospital: On admission, patient was placed in the ICU. Nephrology was consulted as noted with emergent hemodialysis carried out. With dialysis, potassium returned to its normal level and remained normal throughout the duration of his stay. The volume overload with corrected immediately and did not return. He was able to moved to room air once volume overload was corrected. He remained on room air for the duration of his stay. He did receive additional hemodialysis on January 21, 2020. Hemodialysis was then conducted on his usual Monday on January 22, 2020. Patient did have renal artery ultrasound performed which did not show any significant stenosis. He was able to rapidly come off of the nitroglycerin drip for hypertensive emergency once initial hemodialysis was completed. Blood pressure continued to be monitored and remained in stable range with patient on clonidine, Coreg and Lasix. He was able to move from the ICU to the medical floor prior to
[2020-01-22 19:31] LABS: Glucose Point of Care 142 (65-105)
== END 2020-01-22 20:28 | disposition home or self-care (01) | DRG 189 ==
LOC: ANHED 11:18 → ANHICU 14:44
PROVIDERS: Internal Medicine; Internal Medicine Nephrology; Admitting Provider Internal Medicine; Emergency Provider Emergency Medicine; PCP Emergency Medicine; Visit Provider Hospitalist
DX: J96.01 Acute respiratory failure with hypoxia (principal); N18.6 End stage renal disease; I12.0 Hypertensive chronic kidney disease with stage 5 chronic kidney disease or end stage renal disease; I16.1 Hypertensive emergency; I42.9 Cardiomyopathy, unspecified; E10.21 Type 1 diabetes mellitus with diabetic nephropathy; J96.02 Acute respiratory failure with hypercapnia; E10.22 Type 1 diabetes mellitus with diabetic chronic kidney disease; Z99.2 Dependence on renal dialysis; N40.0 Benign prostatic hyperplasia without lower urinary tract symptoms; I25.10 Atherosclerotic heart disease of native coronary artery without angina pectoris; I25.2 Old myocardial infarction; F41.8 Other specified anxiety disorders; K21.9 Gastro-esophageal reflux disease without esophagitis; E10.319 Type 1 diabetes mellitus with unspecified diabetic retinopathy without macular edema; E10.40 Type 1 diabetes mellitus with diabetic neuropathy, unspecified; E87.5 Hyperkalemia; Z89.511 Acquired absence of right leg below knee; Z96.82 Presence of neurostimulator; F17.210 Nicotine dependence, cigarettes, uncomplicated; Z79.4 Long term (current) use of insulin; E87.70 Fluid overload, unspecified; E55.9 Vitamin D deficiency, unspecified; D63.1 Anemia in chronic kidney disease
CPT/HCPCS: 36415; 36600; 71045; 80048; 80053; 82805; 83735; 83880; 84100; 84484; 85025; 85610; 85730; 86706; 87040; 87081; 87340; 93005; 93976; 96365; 96375; 96376; 99291; A9270; G0257; J1815; J1940; J7030

== ENCOUNTER 2020-01-25 09:32 | Emergency (ER) | payer MEDICARE, MEDICAID, SELFPAY ==
--- NOTE | ~2020-01-25 | XR_ITS ---
EXAMINATION: XR chest 2V DATE: 01/25/2020 10:18 INDICATION: Shortness of breath and pulmonary edema TECHNIQUE: Frontal and lateral views of the chest are obtained COMPARISON: 01/21/2020 FINDINGS: The heart size is normal. A mild interstitial pattern persists but continues to improve. Th ere are small pleural effusions. No pneumothorax is identified. Calcified atherosclerosis is noted. IMPRESSION: 1. Mild pulmonary edema with continued improvement. Reviewed, dictated and finalized at location A.
[2020-01-25 09:36] VITALS: BP 183/85; PULSE 92; RESP 20; TEMP 36.4; O2SAT 98
[2020-01-25 09:39] VITALS: PULSE 92
--- NOTE | 2020-01-25 09:39 | ED.SOB ---
HPI - SOB/Dyspnea General Chief Complaint: Shortness of Breath/Dyspnea Stated Complaint: SHORT OF BREATH Time Seen by Provider: 01/25/20 09:38 Source: patient, family () and old records reviewed Mode of arrival: ambulatory Limitations: no limitations History of Present Illness HPI Narrative: The pt is a 54 y/o male who presents to the ED c/o SOB onset 0400 today. Pt was admitted on 01/20/20 for flash pulmonary edema per old records. Pt states that he was discharged 3 days ago, and did not experience any SOB then. Pt states that his SOB today woke him up from his sleep. He notes that he has a chronic cough that has not changed. Pt also reports anxiety, and notes that he has been experiencing this since losing his top dentures when he came in. Pt denies CP and fever. Pt states that his watch engineer is Dr. Huynh. Pt's notes that he went to dialysis yesterday on his usual Monday, Monday, Monday course and notes that the amount that is usually drawn off varies. She notes that the pt had a BP of 217 over a diastolic value in the hundreds this morning. She states that his diet has been a bit diminished due to him missing his dentures, but has been eating. MD elicited complaint: shortness of breath Onset (ago): hour(s) (5.5 ) Context: recent illness (Flash pulmonary edema) Associated symptoms: cough (Chronic, has not changed) and other (Anxiety) Related Data Home Medications Medication Instructions Recorded Confirmed pantoprazole 40 mg tablet,delayed 40 mg PO DAILY tablet 09/23/19 01/20/20 release tamsulosin 0.4 mg capsule 0.4 mg PO DAILY 09/23/19 01/20/20 cholecalciferol (vitamin D3) 4,000 unit PO DAILY 11/07/19 01/20/20 Lantus U-100 Insulin 12 units SUBCUT QAM 12/20/19 01/20/20 calcitriol 0.25 mcg PO 3XW 12/20/19 01/20/20 carvedilol 25 mg tablet 50 mg PO BID 12/22/19 01/20/20 furosemide 80 mg tablet 80 mg PO BID 12/22/19 01/20/20 Renal Vitamin 1 tablet PO DAILY 12/24/19 01/20/20 oxycodone 5 mg PO Q6H PRN 12/24/19 01/20/20 Lantus Solostar U-100 Insulin 10 unit SUBCUT HS 01/20/20 01/20/20 clonidine HCl 0.4 mg PO TID 01/20/20 01/20/20 cyanocobalamin (vitamin B-12) 1,000 mcg PO DAILY 01/20/20 01/20/20 [Vitamin B-12] insulin lispro [Humalog U-100 6 unit SUBCUT TIDWM 01/25/20 Insulin] Allergies Allergy/AdvReac Type Severity Reaction Status Date / Time scopolamine AdvReac Severe Confusion Verified 01/25/20 09:39 Review of Systems Review of Systems: All systems reviewed & are unremarkable except as noted in HPI and below Constitutional: Constitutional: Denies fever(s) Cardiovascular: Cardiovascular: Denies chest pain Respiratory: Respiratory: Reports cough (Chronic, has not changed) and Reports dyspnea Psychiatric: Psychiatric: Reports anxiety [facility] Past Medical History Medical History (Updated 01/25/20 @ 11:04 by Lou Tay MD) Benign prostatic hyperplasia Chronic anemia Coronary artery disease With non STEMI in December 2019, with stent placed to the LAD. Depression with anxiety Dialysis patient End-stage renal disease on hemodialysis Flash pulmonary edema GERD (gastroesophageal reflux disease) Hypertension Seizure Secondary to hypoglycemia. Tobacco dependence Type 1 diabetes mellitus Diagnosed at the age of 10. Complicated by retinopathy, nephropathy, and neuropathy. Hemoglobin A1c was 8.1% in December 2019. Vitamin D deficiency disease Surgical History Surgical History History of spinal surgery Neurostimulator in place. Status post below knee amputation of right lower extremity December 02, 2019 at [facility]. Status post cataract extraction Status post hemorrhoidectomy Social History Social History Social History: The patient lives in [place] with his and their 22-year-old daughter. He is on disability. he designates his , Rosana, as his surrogate
--- NOTE | 2020-01-25 09:46 | ECG_ITS ---
Measurements Intervals [place] Rate: 91 P: 49 [place]: 158 QRS: 67 QRSD: 86 T: 118 QT: 347 QTc: 429 Interpretive Statements SINUS RHYTHM POSSIBLE LEFT ATRIAL ENLARGEMENT LEFT VENTRICULAR HYPERTROPHY AND ST-T CHANGE ST-T WAVE ABNORMALITY IN LATERAL LEADS- CONSIDER ISCHEMIA BASELINE ARTIFACT- I, AVL, V1-V3 ABNORMAL ECG Electronically Signed On 01-25-2020 10:22:06 CDT by Edmond Elias D.O.
[2020-01-25 09:59] LABS: Basophils Absolute Auto 0.1 K/mm3 (0.0-0.1); Basophils Percent Auto 0.4 % (0.2-1.2); Eosinophils Absolute Auto 0.2 K/mm3 (0-0.3); Eosinophils Percent Auto 1.4 % (0-4.4); Hematocrit 26.8 % (42.0-52.0); Hemoglobin 8.4 g/dL (14.0-18.0); Immature Granulocyte Absolute 0.07 K/mm3 (0.00-0.031); Immature Granulocyte Percent A 0.6 % (0-0.5); Lymphocytes Absolute Auto 1.52 K/mm3 (0.9-3.2); Lymphocytes Percent Auto 12.5 % (18.3-44.2); Mean Corpuscular HGB Conc 31.3 g/dl (32-36); Mean Corpuscular Hemoglobin 31.6 pg (26-34); Mean Corpuscular Volume 100.8 fl (80-100); Mean Platelet Volume 9.5 fl (7.4-10.4); Monocytes Percent Auto 7.8 % (2.6-8.5); Neutrophils Absolute Auto 9.4 K/mm3 (1.3-6.7); Neutrophils Percent Auto 77.3 % (45.5-73.1); Platelet Count Result 388 k/mm3 (150-375); Red Blood Count 2.66 M/mm3 (4.6-6.20); White Blood Count 12.1 K/mm3 (4.5-10.0)
[2020-01-25 10:08] LABS: Alveolar/Arterial O2 Gradient 32.4 mmHg; Base Excess ABG 0.4 mEq/l (+/-2.0); Carboxyhemoglobin 1.5 % THb (0-2.0); Fractional Inspired Oxygen 21 %; HCO3 ABG 24.9 mEq/l (22.0-26.0); Oxygen Content ABG 11.4 %vol (16.0-22.0); Oxygen Saturation ABG 94.4 % (95.0-100.0); Oxyhemoglobin 91.8 % THb (90.0-100.0); PCO2 ABG 39.4 mmHg (35.0-45.0); PO2 ABG 70.2 mmHg (80.0-100.0); PO2 FiO2 Ratio Arterial Blood 3.34 %; Reduced Hemoglobin 6.7 %THb (0-5.0); Total Hemoglobin 8.8 g/dL (12.0-18.0); pH ABG 7.418 (7.350-7.450)
[2020-01-25 10:09] LABS: Device ROOM AIR; Site Drawn RIGHT BRACHIAL
[2020-01-25 10:10] LABS: Alanine Aminotransferase 29 U/L (4-50); Albumin Level 4.2 g/dL (3.5-5.1); Alkaline Phosphatase 92 U/L (38-126); Aspartate Amino Transferase 53 U/L (17-59); Bilirubin,Total 0.4 mg/dL (0.2-1.3); Blood Urea Nitrogen 44 mg/dL (9-20); Calcium 9.1 mg/dL (8.4-10.2); Carbon Dioxide 29 mmol/L (22-30); Chloride 94 mmol/L (98-107); Estimated CRCL calculation 12 ml/min; Estimated Glomerular Filt Rate 11; Glucose 164 mg/dL (75-110); Potassium 4.8 mmol/L (3.4-5.0); Sodium 135 mmol/L (137-145)
[2020-01-25 10:15] LABS: Prothrombin Time 12.9 Seconds (11.1-14.7)
[2020-01-25 10:16] LABS: Partial Thromboplastin Time 31.2 SECONDS (22.3-36.8)
[2020-01-25 11:22] VITALS: BP 169/77; PULSE 83; RESP 22; O2SAT 98
== END 2020-01-25 11:24 | disposition home or self-care (01) ==
PROVIDERS: Emergency Provider General Practice; PCP Emergency Medicine
DX: R06.00 Dyspnea, unspecified (principal); E10.22 Type 1 diabetes mellitus with diabetic chronic kidney disease; I12.0 Hypertensive chronic kidney disease with stage 5 chronic kidney disease or end stage renal disease; N18.6 End stage renal disease; Z99.2 Dependence on renal dialysis; Z79.4 Long term (current) use of insulin; N40.0 Benign prostatic hyperplasia without lower urinary tract symptoms; I25.10 Atherosclerotic heart disease of native coronary artery without angina pectoris; K21.9 Gastro-esophageal reflux disease without esophagitis; E55.9 Vitamin D deficiency, unspecified; Z89.511 Acquired absence of right leg below knee; Z98.49 Cataract extraction status, unspecified eye; F17.210 Nicotine dependence, cigarettes, uncomplicated; R94.31 Abnormal electrocardiogram [ECG] [EKG]; I51.7 Cardiomegaly
CPT/HCPCS: 36415; 36600; 71046; 80053; 82375; 82805; 83050; 85025; 85610; 85730; 93005; 99283

== ENCOUNTER 2020-02-05 04:28 | Inpatient (IN) | payer MEDICARE, MEDICAID, SELFPAY ==
[2020-02-05] VITALS (45 sets, daily range): BP systolic 94–263; BP diastolic 29–130; PULSE 75–119; RESP 12–31; TEMP 35.1–36.8; O2SAT 95–100; BMI 23.2
--- NOTE | ~2020-02-05 | XR_ITS ---
EXAMINATION: XR chest ET placement DATE: 02/05/2020 05:33 INDICATION: Endotracheal tube placement TECHNIQUE: frontal view of the chest was obtained. COMPARISON: Chest radiograph dated 01/25/2020 FINDINGS: Endotracheal tube tip 3.9 cm above the luciano. Nasogastric tube tip projects over the tip of the júnior na likely in the mid esophagus. There are bilateral interstitial and patchy perihilar predominant airspace opacities along several cu rly B lines at the periphery of the right lower lung. No pleural effusion or pneumothorax. The cardio mediastinal silhouette is within normal limits for AP technique. Visualized bones and soft tissues ar e unremarkable. Electronic device projects over the left posterior paraspinal soft tissues. IMPRESSION: 1. Bilateral perihilar predominant interstitial and airspace opacities most likely pulmonary edema al though differential includes pneumonia. Reviewed, dictated and finalized at location A. IMPRESSION: 1. Bilateral perihilar predominant interstitial and airspace opacities most lik estephania pulmonary edema although differential includes pneumonia.
--- NOTE | ~2020-02-05 | XR_ITS ---
EXAMINATION: XR chest 1V portable 02/06/2020 08:59 INDICATION: Moderate edema. Dyspnea. PROCEDURE: AP portable chest COMPARISON: Comparison to multiple prior studies sequentially, with oldest reviewed study dated 01/20. FINDINGS: There is been near complete resolution of pulmonary edema. The cardiomediastinal silhouette is within normal limits. There are no pleural effusions. There is no pneumothorax suspected. IMPRESSION: 1: Near-complete resolution of pulmonary edema.. Reviewed, dictated and finalized at location A.
--- NOTE | ~2020-02-05 | XR_ITS ---
EXAMINATION: XR chest 1V portable DATE: 02/05/2020 17:22 INDICATION: Congestive heart failure. Fluid overload. TECHNIQUE: A single frontal view of the chest was obtained. COMPARISON: Chest single view at 4:42 AM FINDINGS: There is mild atelectasis at left lung base. There are hazy airspace opacities in the perih ilar regions. No pleural effusion or pneumothorax. The heart size is normal. Electronic devices overl ie the abdomen. IMPRESSION: 1. Hazy airspace opacities in the perihilar regions with interval improvement, consistent with pulmon júnior edema. Reviewed, dictated and finalized at location A. IMPRESSION: 1. Hazy airspace opacities in the perihilar regions with interval improvement, consistent with pulmonary edema.
--- NOTE | 2020-02-05 04:30 | ECG_ITS ---
Measurements Intervals [place] Rate: 106 P: 38 [place]: 124 QRS: 75 QRSD: 97 T: 90 QT: 329 QTc: 437 Interpretive Statements SINUS TACHYCARDIA DELAYED PRECORDIAL R/S TRANSITION PEAKED T WAVES- CONSIDER HYPERKALEMIA OR ISCHEMIA BORDERLINE ST-T WAVE ABNORMALITY- LATERAL LEADS ABNORMAL ECG Electronically Signed On 02-05-2020 7:12:10 CDT by Edmond Elias D.O.
--- NOTE | 2020-02-05 04:32 | PC.NURSE ---
Pt has gurgling respirations, pt responsive to pain only.
--- NOTE | 2020-02-05 04:34 | PC.NURSE ---
20 mg etomidate administered [address] Valencia 50 mg rocuronium administered [address] Valencia Pt intubated by edp Dr. valencia size 8 ET Tube placed 24 at the lip.
--- NOTE | 2020-02-05 04:42 | ED.SOB ---
HPI - SOB/Dyspnea General Chief Complaint: Shortness of Breath/Dyspnea Stated Complaint: SOB History of Present Illness HPI Narrative: Brought in by EMS for respiratory distress. Noted to be hypoxic and diaphoretic. Placed on non-rebreather. O2 saturation improved, but contiued to have increased work of breathing. He was fully oriented and alert until shortly before arrival at the ED. On arrival here he is obtunded. responding to verbal stimuli occasionally, but speech is incomprehensible. History limited by clinical condition. Related Data Allergies Allergy/AdvReac Type Severity Reaction Status Date / Time scopolamine Allergy Unresponsiv Verified 02/05/20 05:31 e Review of Systems Review of Systems: ROS unobtainable: unobtainable due to endotracheal tube and unobtainable due to mental condition PMFSH Past Medical History Medical History CHF (congestive heart failure) Diabetes ESRD (end stage renal disease) Exam Const: Other: Severe distress. diaphoretic HENMT: Other: drooling. periorbital edema Eyes: Pupils: Equal, round and reactive pupils present Neck: Other: JVD Resp: Auscultation: rales diffuse Cardio: Rate: tachycardic Rhythm: regular rhythm GI: GI Palp: Yes Soft to palpation Skin: General skin exam: normal color Other: extremely diaphoretic Neuro: Other: incomprehensible speech. Extrem: Other: left BKA Course Vital Signs Vital signs: Vital Signs Pulse Rate 119 H 02/05/20 04:26 Respiratory Rate 31 H 02/05/20 04:26 Blood Pressure 242/130 H 02/05/20 04:26 Pulse Oximetry 98 02/05/20 04:26 Temperature 35.8 C L 02/05/20 05:41 Pulse Rate 103 H 02/05/20 05:51 Respiratory Rate 29 H 02/05/20 05:51 Blood Pressure 204/68 H 02/05/20 05:51 Pulse Oximetry 100 02/05/20 05:51 Procedures Intubation Intubation #1: Intubation Date: 02/05/20 Time out performed: No sedative: Etomidate Mg Given: 20 paralytic: Rocuronium Mg Given: 50 Laryngoscope: fiber optic video scope Tube Size (cm): 8.0 Method of Intubation: orotracheal Number of Attempts: 1 Tube Secured Depth (cm): 24 Tube Secured Location: lips Tube Placement Confirmation: visualized tube passing through cords, equal breath sounds bilaterally, no breath sounds over epigastrium and confirmation by capnometry Patient Tolerated Procedure: well Intubation Complications: none MDM - SOB/Dyspnea MDM Narrative Medical decision making narrative: CHF, flash pulmonary edema Lab Data Result diagrams: 02/05/20 04:50 02/05/20 04:50 Labs: Lab Results 02/05/20 02/05/20 02/05/20 Range/Units 04:50 04:50 04:50 WBC 14.6 H (4.5-10.0) K/mm3 RBC 2.87 L (4.6-6.20) M/mm3 Hgb 9.1 L (14.0-18.0) g/dL Hct 30.8 L (42.0-52.0) % MCV 107.3 H (80-100) fl MCH 31.7 (26-34) pg MCHC 29.5 L (32-36) g/dl RDW 17.1 H (11.5-14.5) % Plt Count 489 H (150-375) k/mm3 MPV 9.6 (7.4-10.4) fl Immature Gran % (Auto) 0.8 H (0-0.5) % Neut % (Auto) 59.7 (45.5-73.1) % Lymph % (Auto) 26.6 (18.3-44.2) % [place] % (Auto) 8.9 H (2.6-8.5) % Eos % (Auto) 3.4 (0-4.4) % Baso % (Auto) 0.6 (0.2-1.2) % Lymph # (Auto) 3.87 H (0.9-3.2) K/mm3 [place] # (Auto) 1.3 H (0.1-0.6) K/mm3 Eos # (Auto) 0.5 H (0-0.3) K/mm3 Baso # (Auto) 0.1 (0.0-0.1) K/mm3 Abs Immat Gran (auto) 0.11 H (0.00-0.031) K/mm3 Absolute Neuts (auto) 8.7 H (1.3-6.7) K/mm3 Absolute Nucleated RBC 0.0 (0.0-0.012) K/mm3 Nucleated RBC % 0.0 (0.0-0.2) % PT 12.9 (11.1-14.7) Seconds INR 1.0 APTT 32.2 (22.3-36.8) SECONDS Minute Volume Vent Mode Tidal Volume ml PEEP cmH2O Peak Inspir Pressure Pressure Support Sodium Cancelled Potassium Cancelled Chloride Cancelle
[2020-02-05] MEDS: FUROSEMIDE INJ 100 MG/10 ML VIAL 80 MG IV PUSH (04:56)
[2020-02-05] MEDS: NITROGLYCERIN OINTMENT 1 INCH DOSE TRANSDERM (04:56)
[2020-02-05 04:58] LABS: Basophils Absolute Auto 0.1 K/mm3 (0.0-0.1); Basophils Percent Auto 0.6 % (0.2-1.2); Eosinophils Absolute Auto 0.5 K/mm3 (0-0.3); Eosinophils Percent Auto 3.4 % (0-4.4); Hematocrit 30.8 % (42.0-52.0); Hemoglobin 9.1 g/dL (14.0-18.0); Immature Granulocyte Absolute 0.11 K/mm3 (0.00-0.031); Immature Granulocyte Percent A 0.8 % (0-0.5); Lymphocytes Absolute Auto 3.87 K/mm3 (0.9-3.2); Lymphocytes Percent Auto 26.6 % (18.3-44.2); Mean Corpuscular HGB Conc 29.5 g/dl (32-36); Mean Corpuscular Hemoglobin 31.7 pg (26-34); Mean Corpuscular Volume 107.3 fl (80-100); Mean Platelet Volume 9.6 fl (7.4-10.4); Monocytes Absolute Auto 1.3 K/mm3 (0.1-0.6); Monocytes Percent Auto 8.9 % (2.6-8.5); Neutrophils Absolute Auto 8.7 K/mm3 (1.3-6.7); Neutrophils Percent Auto 59.7 % (45.5-73.1); Platelet Count Result 489 k/mm3 (150-375); Red Blood Count 2.87 M/mm3 (4.6-6.20); Red Cell Distribution Width 17.1 % (11.5-14.5); White Blood Count 14.6 K/mm3 (4.5-10.0)
[2020-02-05 05:09] LABS: Partial Thromboplastin Time 32.2 SECONDS (22.3-36.8); Prothrombin Time 12.9 Seconds (11.1-14.7)
[2020-02-05] MEDS: PROPOFOL IV EMULSION 100 ML 4.9 MG IV CONT (05:09)
[2020-02-05 05:12] LABS: Alanine Aminotransferase 59 U/L (4-50); Albumin Level 4.3 g/dL (3.5-5.1); Alkaline Phosphatase 88 U/L (38-126); Aspartate Amino Transferase 113 U/L (17-59); Bilirubin,Total 0.3 mg/dL (0.2-1.3); Blood Urea Nitrogen 50 mg/dL (9-20); Calcium 8.8 mg/dL (8.4-10.2); Carbon Dioxide 26 mmol/L (22-30); Chloride 99 mmol/L (98-107); Estimated Glomerular Filt Rate 8; Glucose 371 mg/dL (75-110); Potassium 5.3 mmol/L (3.4-5.0); Sodium 140 mmol/L (137-145)
--- NOTE | 2020-02-05 05:19 | PC.NURSE ---
mult rn attempt Og/ng unable to insert at time. Mult RN attempt for IV access only on IV at this time. EDP attempted R Ej, no access.
[2020-02-05] MEDS: hydrALAZINE HCL 20 MG/ML VIAL IV PUSH (05:30)
[2020-02-05 05:36] LABS: Alveolar/Arterial O2 Gradient 355.1 mmHg; Base Excess ABG -2.8 mEq/l (+/-2.0); Fractional Inspired Oxygen 100 %; HCO3 ABG 26.7 mEq/l (22.0-26.0); Oxygen Content ABG 14.4 %vol (16.0-22.0); Oxygen Saturation ABG 99.5 % (95.0-100.0); Oxyhemoglobin 97.5 % THb (90.0-100.0); PO2 ABG 281.8 mmHg (80.0-100.0); PO2 FiO2 Ratio Arterial Blood 2.82 %
[2020-02-05 05:37] LABS: PCO2 ABG 76.1 mmHg (35.0-45.0); Site Drawn RIGHT BRACHIAL; pH ABG 7.163 (7.350-7.450)
[2020-02-05 05:38] LABS: Arterial Blood Gas PEEP 5 cmH2O; Arterial Blood Gas Tidal Volume 450 ml; Arterial Blood Gas Vent Mode CMV; Arterial Blood Gas Ventilator rate 12 /MIN; Device VENTILATOR
[2020-02-05 05:41] LABS: NT Pro B Type Natriuretic Pept > 35000 PG/ML (5-100)
[2020-02-05 05:52] LABS: Lactic Acid Reflex 0.7 mmol/L (0.7-2.1)
[2020-02-05] MEDS: PROPOFOL IV EMULSION 100 ML 24.5 MG IV CONT (08:29)
[2020-02-05 08:33] LABS: Hepatitis B Surface Antigen Negative (Negative)
--- NOTE | 2020-02-05 08:53 | PC.NURSE ---
This patient, Ish Corley, was admitted to Intensive Care Unit-7. Patient/family oriented to hospital policies and general routines including ID bracelet, bed and alarms, visiting hours, pain management, procedures, bathroom and other care routines, personal items, smoking policy, room service/diet, and visiting hours. Valuables list has been completed. Information on how to activate the Rapid Response Team has been discussed. Patient/Family are encouraged to report perceived risks to care and to ask questions if they do not understand what they are told or what they should do.
[2020-02-05 08:58] LABS: Hepatitis B Surface Anti Res Positive
--- NOTE | 2020-02-05 10:12 | P.PNNP_ITS ---
Progress Note: A&P Assessment and Plan (1) ESRD (end stage renal disease): Code(s): N18.6 - End stage renal disease Status: Chronic Assessment and Plan: * HD today and continue M/W/F schedule while hospitalized * fluid removal as tolerated by hemodynamics * may do HD/DUF tomorrow as well * follow electrolytes and clearance FULL CONSULT TO FOLLOW Subjective Date/time seen: 02/05/20 10:12 Tolerating dialysis at the time of my visit (seen on HD at ~ 10:00AM); currently intubated and sedated but appears in no distress; BP has improved since admission (acutally on the low side on my visit). Exam Narrative: Exam Narrative: General: WD/WN male in NAD (intubated/sedated) Heart: normal S1 and S2; no rub Lungs: crackles/rhonchi posteriorly Abdomen: soft, nontender, nondistended, positive bowel sounds Extremities: no cyanosis or clubbing; no edema Skin: warm and dry Objective Data Vital Signs Vital Signs: Vital Signs Temp Pulse Resp BP Pulse Ox 02/05/20 10:00 82 112/33 L 02/05/20 09:45 82 112/45 L 02/05/20 09:30 82 115/52 L 02/05/20 09:15 80 124/29 L 02/05/20 09:08 80 106/39 L 02/05/20 08:53 36.8 C 80 27 H 94/44 L 02/05/20 08:00 36.4 C L 86 30 H 101/40 L 99 02/05/20 06:48 35.3 C L 96 12 133/72 96 02/05/20 06:46 35.1 C L 100 31 H 133/72 97 02/05/20 06:27 35.2 C L 107 H 28 H 167/81 H 95 02/05/20 06:11 35.5 C L 105 H 24 H 194/73 H 100 02/05/20 05:51 103 H 29 H 204/68 H 100 02/05/20 05:45 103 H 100 02/05/20 05:41 35.8 C L 101 H 29 H 218/92 H 100 02/05/20 05:35 99 28 H 100 02/05/20 05:15 106 H 16 251/113 H 100 02/05/20 05:00 111 H 12 263/120 H 100 02/05/20 04:45 116 H 20 257/121 H 100 02/05/20 04:44 98 02/05/20 04:26 119 H 31 H 242/130 H 98 Intake/Output Intake/Output: Intake & Output 02/02/20 02/03/20 02/04/20 02/05/20 23:59 23:59 23:59 23:59 Intake Total 100 Balance 100 Meds/Results Medications: Active Medications Generic Name Dose Route Start Last Admin Trade Name Freq PRN Reason Stop Dose Admin Dexmedetomidine HCl 400 mcg in 100 mls @ 6.54 mls/hr 02/05/20 09:20 02/05/20 09:24 Precedex 400 Mcg/D5w 100 Ml IV CONT 0.5 mcg/kg/hr .[id number] MARTHA 8.2 mls/hr Administration Protocol 0.4 MCG/KG/HR Radiology Results: ITS Impressions Chest X-Ray 02/05/20 07:24 IMPRESSION: 1. Bilateral perihilar predominant interstitial and airspace opacities most likely pulmonary edema although differential includes pneumonia. Labs Labs: Laboratory Tests 02/05/20 04:50 02/05/20 04:50
--- NOTE | 2020-02-05 10:26 | WPDCNINT ---
Assessment and Plan Assessment and plan (1) Acute respiratory failure with hypoxia and hypercapnia: Code(s): J96.01 - Acute respiratory failure with hypoxia; J96.02 - Acute respiratory failure with hypercapnia Status: Acute Assessment and Plan: - Patient intubated in ER due to severe respiratory distress, hypoxia and pulmonary edema - Cxr with pulm edema pattern - Plan for fluid removal with dialysis - will wean vent vent once dialysis completed to see if patient can be extubated. - WBC count high but likely stress response - no fever or other signs of infection - patient is also chronic smoker, will continue nebs for now . no wheezing appreciated (2) Diabetes: Code(s): E11.9 - Type 2 diabetes mellitus without complications Status: Acute Assessment and Plan: - hold patients lantus - will cotninue SSI for now (3) ESRD (end stage renal disease): Code(s): N18.6 - End stage renal disease Status: Chronic Assessment and Plan: - poorly compliant with dialysis as noted to have multiple admissions in past with similar picture requiring BIPAP and fluid removal - currently on dialysis with 4-5 lit fluid removal - will continue other home meds - unclear if patient missed any of his dialysis session (4) Hypertensive emergency: Code(s): I16.1 - Hypertensive emergency Status: Acute Assessment and Plan: - ? flash pulmonary edema due to hypertension - patient noted to have SBP in 200`s on arrival to ER - currently BP is low , will hold off on home BP meds for now (5) DVT prophylaxis: Code(s): Z29.9 - Encounter for prophylactic measures, unspecified Status: Acute Assessment and Plan: sq heparin Additional Plan GI prophylaxis - protonix 40 mg IVP Total CCT - 45 min managing respiratory failure and further organ dysfunction . Extrusion Operator Consult Note Consult date: 02/05/20 Time Seen: 11:41 HPI: Ish Corley is a 54 year old male with PMHx significant for ERSD and medical noncompliance who presented from home via EMS with respiratory distress and Hypertension . As per records patient called EMS himself due to increased SOB. He was placed on 100% NRB and Tx to ER where he was noted to be in severe distress with frothy secretions . He was unable to talk in full sentences. He was hence intubated . His BP was noted to be 200`s systolic . He was given IV hydralazine, NTP and started on sedation with propofol. His cxr showed pulmonary edema pattern . Nephrology was consulted and he was tx to ICU for further care. On my assessment in ICU patient is sedated and intubated . His BP is low in 100`s . NTP has been taken off . Dialysis is at bedside with plans for 4-5 liter of fluid removal. Review of Systems Review of Systems: ROS unobtainable: unobtainable due to endotracheal tube PMFSH Past Medical History Medical History Benign prostatic hyperplasia CHF (congestive heart failure) Chronic anemia Coronary artery disease With non STEMI in December 2019, with stent placed to the LAD. Depression with anxiety Diabetes Dialysis patient End-stage renal disease on hemodialysis ESRD (end stage renal disease) Flash pulmonary edema GERD (gastroesophageal reflux disease) Hypertension Seizure Secondary to hypoglycemia. Tobacco dependence Type 1 diabetes mellitus Diagnosed at the age of 10. Complicated by retinopathy, nephropathy, and neuropathy. Hemoglobin A1c was 8.1% in December 2019. Vitamin D deficiency disease Surgical History Surgical History History of spinal surgery Neurostimulator in place. Status post below knee amputation of right lower extremity December 02, 2019 at [facility]. Status post cataract extraction Status post hemorrhoidectomy Family History Family History Father
[2020-02-05 11:24] LABS: Alveolar/Arterial O2 Gradient 142.9 mmHg; Base Excess ABG 3.9 mEq/l (+/-2.0); Fractional Inspired Oxygen 50 %; HCO3 ABG 27.9 mEq/l (22.0-26.0); Oxygen Content ABG 14.4 %vol (16.0-22.0); Oxygen Saturation ABG 99.2 % (95.0-100.0); Oxyhemoglobin 97.7 % THb (90.0-100.0); PCO2 ABG 39.7 mmHg (35.0-45.0); PO2 ABG 168.9 mmHg (80.0-100.0); PO2 FiO2 Ratio Arterial Blood 3.38 %; Total Hemoglobin 10.2 g/dL (12.0-18.0); pH ABG 7.465 (7.350-7.450)
[2020-02-05 11:25] LABS: Arterial Blood Gas Vent Mode CMV; Arterial Blood Gas Ventilator rate 20 /MIN; Device VENTILATOR; Modified Allen's Test Pass; Site Drawn RIGHT RADIAL
[2020-02-05 11:26] LABS: Arterial Blood Gas PEEP 8 cmH2O; Arterial Blood Gas Tidal Volume 450 ml
[2020-02-05 11:49] LABS: Glucose Point of Care 215 (65-105)
--- NOTE | 2020-02-05 12:18 | PM.IMHP ---
H&P: HPI History of Present Illness Chief complaint: Acute respiratory failure with hypoxia/hypercapnea Narrative: Date of visit 02/04 730. Ish Corley is a 54 year old hypertensive white male diabetic with end-stage renal disease on dialysis Monday who had contacted EMS due to respiratory to distressed. When they arrived yesterday the evening they placed him on non-rebreather and shortly after arriving merged room here he became less and less responsive blood gas revealed CO2 retention and he was intubated and placed on a ventilator and transferred to the ICU. Chest x-ray looks to be pulmonary edema and blood pressure systolics were over 200. Is given hydralazine and nitrates. No history of any chest pain. Review of Systems Review of Systems: Narrative: Unobtainable since patient is intubated and sedated [facility] Past Medical History Medical History Benign prostatic hyperplasia CHF (congestive heart failure) Chronic anemia Coronary artery disease With non STEMI in December 2019, with stent placed to the LAD. Depression with anxiety Diabetes Dialysis patient End-stage renal disease on hemodialysis ESRD (end stage renal disease) Flash pulmonary edema GERD (gastroesophageal reflux disease) Hypertension Seizure Secondary to hypoglycemia. Tobacco dependence Type 1 diabetes mellitus Diagnosed at the age of 10. Complicated by retinopathy, nephropathy, and neuropathy. Hemoglobin A1c was 8.1% in December 2019. Vitamin D deficiency disease Surgical History Surgical History History of spinal surgery Neurostimulator in place. Status post below knee amputation of right lower extremity December 02, 2019 at [facility]. Status post cataract extraction Status post hemorrhoidectomy Family History Family History Father Hypertension Sibling Multiple myeloma Hypertension Sibling Hypertension Sibling Hypertension Father Hypertension Sibling Multiple myeloma Mother Acute myelogenous leukemia Sibling Hypertension Sibling Hypertension Sibling Hypertension Social History Social History Social History: The patient lives in [place] with his and their 22-year-old daughter. He is on disability. he designates his , Rosana, as his surrogate decision maker and he wishes to be a full code. He is a smoker, between 1 and 2 packs a day. He smokes marijuana daily. He denies significant alcohol use. Smoking packs per day: 2 Smoking cigarettes per day: 40.0 Years smoked: 32 Smoking pack-years: 64.00 Smoking status: Current every day smoker Tobacco type: cigarettes Second hand tobacco smoke exposure: Yes Additional smoking assessment comments: smokes marijuana every day Alcohol intake: never Substance use: current Substance use type: marijuana Last use: !01/08/19 everyday marijuana user Gender identity (if verbalized by the patient): Male Spiritual care concerns: No Agree to blood products: Yes Meds Home Medications and Allergies Home Medications Medication Instructions Recorded Confirmed Type pantoprazole 40 mg tablet,delayed 40 mg PO DAILY tablet 09/23/19 01/20/20 History release tamsulosin 0.4 mg capsule 0.4 mg PO DAILY 09/23/19 01/20/20 History cholecalciferol (vitamin D3) 4,000 unit PO DAILY 11/07/19 01/20/20 History atorvastatin 40 mg PO HS #0 tablet 12/18/19 01/20/20 Rx Lantus U-100 Insulin 12 units SUBCUT QAM 12/20/19 01/20/20 History calcitriol 0.25 mcg PO 3XW 12/20/19 01/20/20 History albuterol sulfate 2.5 mg INHALATION Q6HRT PRN #0 ea 12/22/19 01/20/20 Rx aspirin [Children's Aspirin] 81 mg PO DAILY@0800 #0 tablet 12/22/19 01/20/20 Rx carvedilol 25 mg tablet 50 mg PO BID 12/22/19 01/20/20 History furosemide 80 mg tablet 80 mg PO BID 0
[2020-02-05 12:28] LABS: Troponin I 0.037 ng/mL (0.000-0.034)
[2020-02-05] MEDS: INSULIN ASPART (*BKC) 100 UNITS/ML SUB-Q ×2 (12:32→17:50)
[2020-02-05] MEDS: HEPARIN SODIUM 5,000 UNITS/ML VIAL 5000 UNITS SUB-Q (13:27)
[2020-02-05 14:22] LABS: Alveolar/Arterial O2 Gradient 97.8 mmHg; Base Excess ABG 2.9 mEq/l (+/-2.0); Fractional Inspired Oxygen 35 %; HCO3 ABG 26.7 mEq/l (22.0-26.0); Oxygen Content ABG 12.3 %vol (16.0-22.0); Oxygen Saturation ABG 98.2 % (95.0-100.0); Oxyhemoglobin 96.5 % THb (90.0-100.0); PCO2 ABG 37.3 mmHg (35.0-45.0); PO2 ABG 108.4 mmHg (80.0-100.0); Total Hemoglobin 8.9 g/dL (12.0-18.0); pH ABG 7.472 (7.350-7.450)
[2020-02-05 14:23] LABS: Arterial Blood Gas PEEP 5 cmH2O; Arterial Blood Gas Vent Mode SPONTANEOUS; Device VENTILATOR; Modified Allen's Test Pass; Site Drawn RIGHT RADIAL
[2020-02-05 14:24] LABS: Arterial Blood Gas Pressure Support 5 cmH2O
[2020-02-05 18:07] LABS: Glucose Point of Care 244 (65-105)
[2020-02-05] MEDS: ATORVASTATIN 40 MG TABLET PO (21:17)
[2020-02-06] VITALS (23 sets, daily range): BP systolic 93–207; BP diastolic 43–91; PULSE 68–109; RESP 12–24; TEMP 0–37.2; O2SAT 94–98
[2020-02-06] MEDS: CLONIDINE HCL 0.2 MG TABLET 0.4 MG PO ×3 (04:49→16:50)
[2020-02-06] MEDS: INSULIN ASPART (*BKC) 100 UNITS/ML SUB-Q ×3 (08:11→20:59)
[2020-02-06 08:25] LABS: Glucose Point of Care 454 (65-105)
[2020-02-06 08:50] LABS: Basophils Absolute Auto 0.1 K/mm3 (0.0-0.1); Basophils Percent Auto 0.7 % (0.2-1.2); Eosinophils Percent Auto 0.3 % (0-4.4); Hematocrit 28.9 % (42.0-52.0); Hemoglobin 8.7 g/dL (14.0-18.0); Immature Granulocyte Absolute 0.05 K/mm3 (0.00-0.031); Immature Granulocyte Percent A 0.5 % (0-0.5); Lymphocytes Absolute Auto 0.92 K/mm3 (0.9-3.2); Lymphocytes Percent Auto 8.7 % (18.3-44.2); Mean Corpuscular HGB Conc 30.1 g/dl (32-36); Mean Corpuscular Hemoglobin 32.3 pg (26-34); Mean Corpuscular Volume 107.4 fl (80-100); Monocytes Absolute Auto 0.4 K/mm3 (0.1-0.6); Monocytes Percent Auto 3.9 % (2.6-8.5); Neutrophils Absolute Auto 9.1 K/mm3 (1.3-6.7); Neutrophils Percent Auto 85.9 % (45.5-73.1); Platelet Count Result 383 k/mm3 (150-375); Red Blood Count 2.69 M/mm3 (4.6-6.20); Red Cell Distribution Width 16.5 % (11.5-14.5); White Blood Count 10.5 K/mm3 (4.5-10.0)
[2020-02-06] MEDS: INSULIN GLARGINE (*BKC) 100 UNITS/ML 12 UNITS SUB-Q (09:06)
[2020-02-06 09:15] LABS: Alanine Aminotransferase 39 U/L (4-50); Albumin Level 3.6 g/dL (3.5-5.1); Alkaline Phosphatase 85 U/L (38-126); Aspartate Amino Transferase 37 U/L (17-59); Bilirubin,Total 0.5 mg/dL (0.2-1.3); Blood Urea Nitrogen 44 mg/dL (9-20); Calcium 8.5 mg/dL (8.4-10.2); Carbon Dioxide 17 mmol/L (22-30); Chloride 92 mmol/L (98-107); Estimated CRCL calculation 13 ml/min; Estimated Glomerular Filt Rate 11; Glucose 515 mg/dL (75-110); Potassium 4.6 mmol/L (3.4-5.0); Sodium 134 mmol/L (137-145)
[2020-02-06] MEDS: CHOLECALCIFEROL 1,000 UNIT TABLET 4000 UNITS PO (09:15)
[2020-02-06] MEDS: CLOPIDOGREL BISULFATE 75 MG TABLET PO (09:16)
[2020-02-06] MEDS: VITAMIN B CMPLX/VIT C/FOLIC AC 1 CAPSULE 1 CAP PO (09:17)
[2020-02-06] MEDS: PANTOPRAZOLE 40 MG TABLET PO (09:17)
[2020-02-06] MEDS: CYANOCOBALAMIN 1,000 MCG TABLET 1000 MCG PO (09:17)
[2020-02-06] MEDS: ASPIRIN 81 MG CHEWABLE TABLET PO (09:20)
[2020-02-06 09:26] LABS: Glucose Point of Care 431 (65-105)
[2020-02-06] MEDS: TAMSULOSIN HCL 0.4 MG CAPSULE PO (10:27)
[2020-02-06] MEDS: carvediloL 25 MG TABLET 50 MG PO ×2 (10:27→20:35)
--- NOTE | 2020-02-06 12:00 | PC.NURSE ---
Pt to dialysis via bed
--- NOTE | 2020-02-06 12:24 | PM.IMPN ---
Progress Note: A&P Assessment and Plan (1) Acute respiratory failure with hypoxia: Code(s): J96.01 - Acute respiratory failure with hypoxia Status: Acute Assessment and Plan: Thought secondary to the pulmonary edema and volume overload from his end-stage renal disease. Pressure was elevated probably secondary to the pulmonary edema. Echo in December showed some diastolic dysfunction with ejection fraction of 50-55% Mild leukocytosis but appears to be stress related and no evidence of any infection Doing much better today at 4 L removed 02/04 (2) Pulmonary edema: Code(s): J81.1 - Chronic pulmonary edema Status: Acute Assessment and Plan: Secondary to volume overload and possibly hypertension. Pressure is already down with hydralazine and emergent dialysis 02/04 with anticipated p4-5 L of fluid removal Elevated troponin thought secondary to heart failure and renal failure with flat response and no evidence of ischemia Is status post stent to LAD in November of this year and will continue aspirin and Plavix with beta-graciela (3) End stage renal disease: Code(s): N18.6 - End stage renal disease Status: Acute Assessment and Plan: Apparently patient recently has been compliant with dialysis and will have fluid removed today per Nephrology (4) Type 1 diabetes mellitus: Qualifiers: Diabetes mellitus complication status: with kidney complications Diabetes mellitus complication detail: with chronic kidney disease Chronic kidney disease stage: on chronic dialysis Qualified Code(s): E10.22 - Type 1 diabetes mellitus with diabetic chronic kidney disease; N18.6 - End stage renal disease; Z99.2 - Dependence on renal dialysis Code(s): E10.9 - Type 1 diabetes mellitus without complications Status: Acute Assessment and Plan: Low-dose Lantus and sliding scale (5) Hypertensive emergency: Code(s): I16.1 - Hypertensive emergency Status: Acute Assessment and Plan: Pressure is already fallen parental meds as needed and dialysis should help immensely with blood pressure (6) DVT prophylaxis: Code(s): Z29.9 - Encounter for prophylactic measures, unspecified Status: Acute Assessment and Plan: Heparin subcu Subjective Date/time seen: 02/06/20 12:24 Interval history: Date of visit 02/05. 54-year-old hypertensive type 2 diabetic known coronary disease on dialysis 3 times a week for chronic renal failure presented with acute shortness of breath and pulmonary edema. Initially intubated and after 4 L of fluid removed at dialysis 325 was able to be extubated.. Feels much better at present time. Had not missed any dialysis sessions and takes his medication regularly. No chest pain or other symptoms Exam Narrative: Exam Narrative: Blood pressure 162/54 pulse is 92 saturating 100% on room air Pupils equal and reactive to light sluggishly sclera anicteric Mouth normal Lungs very faint left end inpiratory crackles no areas consolidatio CV regular rate rhythm no murmurs Abdomen is soft nontender no masses Extremities without edema , right below-knee amputation stump clean and dry Neuro unresponsive sedated Objective Data Vital Signs Vital Signs: Vital Signs - 24 hr 02/05/20 12:30 02/05/20 12:40 02/05/20 12:45 Temperature 36.6 C Pulse Rate 81 80 79 Respiratory Rate 20 Blood Pressure 99/55 L 111/35 L 114/32 L Pulse Oximetry 02/05/20 13:25 02/05/20 14:00 02/05/20 14:03 Temperature Pulse Rate 78 75 76 Respiratory Rate 18 Blood Pressure 107/46 L Pulse Oximetry 100 100 02/05/20 16:00 02/05/20 16:03 02/05/20 18:00 Temperature 36.8 C Pulse Rate 83 84 101 H Respiratory Rate 24 H Blood Pressure 153/49 H Pulse Oximetry 95 02/05/20 18:03 02/05/20 20:00 02/05/20 22:00 Temperature 36.8 C Pulse Rate 101 H 99 104 H Respiratory Rate 27 H 22 H 20 Blood Pressure 107/53 L 139/60 124/62 Pulse Oximetry 96
--- NOTE | 2020-02-06 12:52 | WPDINTPN ---
Progress Note: A&P Assessment and Plan (1) Acute respiratory failure with hypoxia and hypercapnia: Code(s): J96.01 - Acute respiratory failure with hypoxia; J96.02 - Acute respiratory failure with hypercapnia Status: Acute Assessment and Plan: - Patient intubated in ER due to severe respiratory distress, hypoxia and pulmonary edema - Cxr much improved this morning after dialysis and removal of fluid on 02/05/2020 - dialysis planned again today for removal of fluid - WBC trending down, likely related to stress - no fever or other signs of infection - patient is also chronic smoker, will continue nebs for now . no wheezing appreciated (2) Diabetes: Code(s): E11.9 - Type 2 diabetes mellitus without complications Status: Acute Assessment and Plan: - patient hyperglycemic, restarted Lantus, continue high-dose sliding scale insulin Accu-Cheks - patient was refusing Accu-Cheks through the night (3) ESRD (end stage renal disease): Code(s): N18.6 - End stage renal disease Status: Chronic Assessment and Plan: - poorly compliant with dialysis as noted to have multiple admissions in past with similar picture requiring BIPAP and fluid removal - patient had dialysis on 02/05/2020 with removal of 4 L fluid - will continue other home meds - unclear if patient missed any of his dialysis session (4) Hypertensive emergency: Code(s): I16.1 - Hypertensive emergency Status: Acute Assessment and Plan: - ? flash pulmonary edema due to hypertension - patient noted to have SBP in 200`s on arrival to ER - patient continues to be hypertensive, will start home medication (5) DVT prophylaxis: Code(s): Z29.9 - Encounter for prophylactic measures, unspecified Status: Acute Assessment and Plan: DVT prophylaxis; sq heparin GI prophylaxis - protonix Additional Plan discussed with patient updated with his condition and plan of care. I did discuss with him regarding the importance of dialysis and maintaining normal blood pressures to prevent flash pulmonary edema causing respiratory distress /failure. Code status: Full code Critical care time spent: 33 minutes . Subjective Date/time seen: 02/06/20 12:52 REASON FOR CONSULT: Acute respiratory failure secondary to hypoxia and pulmonary edema, poorly compliant with dialysis, hypertensive urgency patient seen and examined in the ICU this morning. Is awake, alert, nonfocal. Patient on room air with good O2 sats, blood pressure is slightly elevated. Patient also hyperglycemic. Patient refused Accu-Cheks the evening yesterday and through the night. Patient denies any chest pain, shortness of breath, abdominal pain, nausea vomiting. Patient is on Lasix at home but states he only probably has about and oz of urine output. Review of Systems Review of Systems: All systems reviewed & are unremarkable except as noted in HPI and below Exam Narrative: Exam Narrative: General sedated, intubated Eyes Normal conjunctiva. Right pupil larger than the left and reactive to light. 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 right BKA noted Const: General: comfortable and no acute distress HENMT: Mouth: Yes moist mucous membranes Eyes: Sclera: sclerae normal and scleral abnormality Neck: Neck: supple and no JVD Resp: Effort & Inspection: normal respiratory effort Auscultation: clear to auscultation bilaterally Cardio: Rate: regular rate Rhythm: regular rhythm GI: Inspection: non-distended GI Palp: Yes Soft to palpation and No Tenderness to palpation present (GI) Auscultation: normal bowel sounds Neuro: Cognition (Neuro): normal cognition Speech: normal speech Other: Willa
--- NOTE | 2020-02-06 15:22 | PM.CNNEP ---
Assessment and Plan Assessment and plan (1) End stage renal disease: Code(s): N18.6 - End stage renal disease Status: Acute (2) Acute respiratory failure with hypoxia: Code(s): J96.01 - Acute respiratory failure with hypoxia Status: Acute (3) Hypertensive urgency: Code(s): I16.0 - Hypertensive urgency Status: Acute (4) Diabetes: Code(s): E11.9 - Type 2 diabetes mellitus without complications Status: Acute Assessment and Plan: . Additional Plan Ish has end-stage renal disease. This hospitalization/admission is very similar to his previous 1 although the severity of his respiratory distress led to intubation and placement on mechanical ventilation. He is currently off the ventilator with stable hemodynamics and respiratory status. The etiology of these episodes of hypertensive urgency associated with pulmonary edema is still not entirely clear. Initially the thought process was this may be a variation of renal artery stenosis but imaging studies done today have not significantly demonstrated this. The patient received urgent dialysis yesterday with improvement in his overall volume status and stability in his electrolytes and is currently undergoing dry ultrafiltration at the time of my visit for further fluid removal an effort to maintain stability in his volume status. His CKD parameters appear to be relatively stable and we will adjust his current dialysis prescription and medications as deemed necessary to maintain stability of them. I would not be opposed to discharge from a renal perspective after his session of dry ultrafiltration session today unless of course other medical issues and problems are present at require intervention. He remains hospitalized, I will proceed with dialysis tomorrow and maintain his Monday, Monday, Monday dialysis schedule. I will continue follow patient with you while remains hospitalized and make further recommendations based on his hospital course. Thank you for allowing me to participate in the care this patient. History of Present Illness Reason for Consult Consult date: 02/06/20 Reason for consult: end stage renal disease Chief Complaint Chief complaint: Acute respiratory failure with hypoxia/hypercapnea History of Present Illness Narrative: The patient is a 54-year-old male with a past medical history as outlined below who presented to the emergency department yesterday morning via EMS for evaluation of shortness of breath. The morning of admission, the patient woke up with sudden shortness of breath. EMS was called due to his respiratory distree. Apparently, by the time of his arrival to the ER, he was quite hypertensive with ongoing respiratory distress. His mental status started to decline as well and ABG demonstrated his pCO2 rising. Work-up in the emergency department demonstrated his blood pressure was apparently 260s systolic and CXR with pulmonary edema. Given ongoing respitory decline, he was intubated and initiated on mechanical ventilation. Interestingly, he was recently hospitalized in early December and January 2020 for a similar presentation. At that time he came in with shortness of breath, and was admitted with hypertensive urgency, volume overload, and acute respiratory failure with hypoxia. He received dialysis with improvement in blood pressures, and was able to be weaned off of his BiPAP (he did require intubation). Since admission, he was extubated and doing reasonably well Renal consultation was requested due to his end stage renal disease. The patient normally dialyzes on a Monday, Monday, Monday schedule at [facility] under the care of Dr. Luke Huynh. He is, for the most part, compliant with his dialysis treatments, although he had had issues in the past where he would leave early or terminates his treatment early mainly due to issues and problems related to his severe anxiety. More
--- NOTE | 2020-02-06 16:25 | PC.NURSE ---
Patient received from ICU room 7. Belongings list verified.
--- NOTE | 2020-02-06 16:27 | PC.NURSE ---
This patient, Ish Corley, was transferred to [[id number]] on 02/06/20 at 1627. Personal belongings sent with patient. Belongings list checked and signed with receiving [ ]. Report given to [ADILENE Muller @ [phone]]. Appropriate documentation sent with patient.
--- NOTE | 2020-02-06 16:28 | PC.NURSE ---
Pt complete dialysis. 2L removed. Transfered to medical floor, rm [id number]. Report given to ADILENE Muller
[2020-02-06 17:44] LABS: Glucose Point of Care 310 (65-105)
[2020-02-06] MEDS: ATORVASTATIN 40 MG TABLET PO (20:35)
[2020-02-06 20:57] LABS: Glucose Point of Care 283 (65-105)
[2020-02-06] MEDS: NICOTINE (*PBKC) 14 MG PATCH 1 PATCH TRANSDERM (23:59)
[2020-02-07] VITALS (21 sets, daily range): BP systolic 90–152; BP diastolic 37–56; PULSE 68–75; RESP 16–20; TEMP 34.9–36.8; O2SAT 98
[2020-02-07 07:42] LABS: Glucose Point of Care 495 (65-105)
[2020-02-07] MEDS: PANTOPRAZOLE 40 MG TABLET PO (08:26)
[2020-02-07] MEDS: TAMSULOSIN HCL 0.4 MG CAPSULE PO (08:27)
[2020-02-07] MEDS: carvediloL 25 MG TABLET 50 MG PO (08:28)
[2020-02-07] MEDS: CLONIDINE HCL 0.2 MG TABLET 0.4 MG PO ×2 (08:28→14:41)
[2020-02-07] MEDS: CHOLECALCIFEROL 1,000 UNIT TABLET 4000 UNITS PO (08:28)
[2020-02-07] MEDS: calcitrioL 0.25 MCG CAPSULE PO (08:29)
[2020-02-07] MEDS: CYANOCOBALAMIN 1,000 MCG TABLET 1000 MCG PO (08:29)
[2020-02-07] MEDS: INSULIN GLARGINE (*BKC) 100 UNITS/ML 12 UNITS SUB-Q (08:29)
[2020-02-07] MEDS: INSULIN ASPART (*BKC) 100 UNITS/ML 15 UNITS SUB-Q (08:29)
[2020-02-07] MEDS: VITAMIN B CMPLX/VIT C/FOLIC AC 1 CAPSULE 1 CAP PO (08:29)
[2020-02-07] MEDS: CLOPIDOGREL BISULFATE 75 MG TABLET PO (08:29)
[2020-02-07] MEDS: NICOTINE (*PBKC) 14 MG PATCH 1 PATCH TRANSDERM (08:30)
[2020-02-07] MEDS: ASPIRIN 81 MG CHEWABLE TABLET PO (09:17)
--- NOTE | 2020-02-07 09:50 | PC.NURSE ---
Patient transferred to dialysis in bed by nurse rosina.
--- NOTE | 2020-02-07 11:23 | PCNFU ---
Nutrition Follow-Up Complete: Inadequate oral intake related to oral intubation as evidenced by NPO status. Patient to meet estimated nutritional needs. Goal: met goal. Pt current nutrition is Diabetic Consistent Carb/Renal Dialysis diet. Nutrition recommendation: Agree Last recorded weight is 67.3 kg. Bowel Motility:+BM 02/05 noted Labs Reviewed:Na 134,GFR 11,Cr 5.3,BUN 44 Meds Noted:Vit D,Plavix, Vit B, Folic Acid, Coreg Additional Notes: Patient tolerating current diet order with intake great than 90% of meals. Agree with diet orders. No further nutritional interventions needed. Monitor: Follow up every 7 days.
--- NOTE | 2020-02-07 12:14 | P.CDI_ITS ---
CDI Query Clarification Request - Acute respiratory failure Thought secondary to the pulmonary edema documented - Chronic pulmonary edema documented - flash pulmonary edema documented by Dr Cortes Please clarify acuity of pulmonary edema: * Acute * Chronic * Acute on Chronic * Unable to determine
--- NOTE | 2020-02-07 13:57 | PM.PNNEP ---
Progress Note: A&P Assessment and Plan (1) End stage renal disease: Code(s): N18.6 - End stage renal disease Status: Acute Assessment and Plan: HD today and continue M/W/F schedule while hospitalized electrolytes, volume status, and clearance stable (2) Acute respiratory failure with hypoxia: Code(s): J96.01 - Acute respiratory failure with hypoxia Status: Acute Assessment and Plan: resolved extubated and on room air presumably due to pulmonary edema continue supportive care (3) Hypertensive urgency: Code(s): I16.0 - Hypertensive urgency Status: Acute Assessment and Plan: resolved normotensive at this time continue BP medications as is (4) Diabetes: Code(s): E11.9 - Type 2 diabetes mellitus without complications Status: Acute Assessment and Plan: follow accuchecks on LAntus and SSI Will continue to follow -- would not be opposed to discharge from renal perspective. Subjective Date/time seen: 02/07/20 13:20 Tolerating dialysis at the time of my visit (seen on HD at ~ 1:15PM); no apparent distress voiced at this time; tolerated DUF (dry ultrafiltration session) yesterday without any problems either; respiratory status and BP quite stable. Exam Narrative: Exam Narrative: General: WD/WN male iin NAD Heart: normal S1 and S2; no rub Lungs: clear to auscultation Abdomen: soft, nontender, nondistended, positive bowel sounds Extremities: no cyanosis or clubbing; no edema Skin: warm and dry Objective Data Vital Signs Vital Signs: Vital Signs Temp Pulse Resp BP Pulse Ox 02/07/20 13:30 68 107/44 L 02/07/20 13:15 69 94/37 L 02/07/20 13:00 72 101/52 L 02/07/20 12:45 75 109/53 L 02/07/20 12:30 75 121/54 L 02/07/20 12:15 69 118/52 L 02/07/20 12:00 70 124/55 L 02/07/20 11:45 72 112/56 L 02/07/20 11:30 73 109/53 L 02/07/20 11:15 71 106/55 L 02/07/20 11:00 73 107/52 L 02/07/20 10:45 71 90/49 L 02/07/20 10:30 70 111/47 L 02/07/20 10:15 70 113/49 L 02/07/20 10:10 70 111/54 L 02/07/20 09:49 36.8 C 73 18 103/52 L 02/07/20 08:28 74 02/07/20 05:37 36.2 C L 74 20 152/54 H 98 02/06/20 21:13 36.1 C L 69 18 119/61 98 02/06/20 16:00 36.8 C 72 16 168/83 H 98 02/06/20 15:35 36.4 C 70 16 123/58 L 02/06/20 15:00 68 99/45 L 02/06/20 14:45 73 133/73 02/06/20 14:30 72 135/69 02/06/20 14:15 71 128/63 02/06/20 14:00 70 135/65 Intake/Output Intake/Output: Intake & Output 02/04/20 02/05/20 02/06/20 02/07/20 23:59 23:59 23:59 23:59 Intake Total 211.5 300 100 Output Total 4075 2000 0 Balance -3863.5 -1700 100 Meds/Results Medications: Active Medications Generic Name Dose Route Start Last Admin Trade Name Freq PRN Reason Stop Dose Admin Albuterol 2.5 mg 02/05/20 15:11 Albuterol Sulf Neb 2.5mg/0.5ml INHALATION Q6HRT PRN Shortness Of Breath Aspirin 81 mg 02/06/20 09:00 02/07/20 09:17 Aspirin Chewable PO 81 mg DAILY MARTHA Administration Atorvastatin Calcium 40 mg 02/05/20 21:00 02/06/20 20:35 Lipitor PO 40 mg HS MARTHA Administration Calcitriol 0.25 mcg 02/07/20 09:00 02/07/20 08:29 Rocaltrol PO 0.25 mcg [id number] MARTHA Administration Carvedilol 50 mg 02/06/20 09:00 02/07/20 08:28 Coreg PO 50 mg Q12HR MARTHA Administration Clonidine HCl 0.4 mg 02/06/20 04:45 02/07/20 08:28 Catapres PO 0.4 mg TID MARTHA Administration Clopidogrel Bisulfate 75 mg 02/06/20 09:00 02/07/20 08:29 Plavix PO 75 mg DAILY MARTHA Administration Cyanocobalamin 1,000 mcg 02/06/20 09:00 02/07/20 08:29 Vitamin B-12 Tab PO 1,000 mcg DAILY MARTHA Administration Dextrose 12.5 gm 02/05/20 11:20 Dextrose 50% Syringe IV PUSH PRN PRN Hypoglycemia Protocol Epoetin Johnnie 10,000 units 02/07/20 19:00
--- NOTE | 2020-02-07 14:33 | PC.NURSE ---
patient back from dialysis, blood sugar checked and dr kyle informed of results.
[2020-02-07 14:57] LABS: Glucose Point of Care 206 (65-105)
[2020-02-07 16:55] LABS: Glucose Point of Care 110 (65-105)
--- NOTE | 2020-02-07 17:02 | PM.DS ---
DS: Diagnosis Admitting Diagnosis Admitting Diagnosis: Acute respiratory failure with hypoxia Discharge Diagnosis (1) Acute respiratory failure with hypoxia: Code(s): J96.01 - Acute respiratory failure with hypoxia Status: Acute Assessment and Plan: Thought secondary to the pulmonary edema and volume overload from his end-stage renal disease. Pressure was elevated probably secondary to the pulmonary edema. Echo in December showed some diastolic dysfunction with ejection fraction of 50-55% Mild leukocytosis but appears to be stress related and no evidence of any infection Doing much better today at 4 L removed 02/04, 1700 ml 02/05 and 1700 again 02/06 (2) Pulmonary edema: Code(s): J81.1 - Chronic pulmonary edema Status: Acute Assessment and Plan: Acute pulmonary edema, Secondary to volume overload and possibly hypertension. Pressure came down with hydralazine and emergent dialysis 02/04 with anticipated p4-5 L of fluid removal Elevated troponin thought secondary to heart failure and renal failure with flat response and no evidence of ischemia Is status post stent to LAD in November of this year and will continue aspirin and Plavix with beta-graciela at d/c bp 130/42 (3) End stage renal disease: Code(s): N18.6 - End stage renal disease Status: Acute Assessment and Plan: Apparently patient recently has been compliant with dialysis and had fluid removed daily per Nephrology as above (4) Type 1 diabetes mellitus: Qualifiers: Diabetes mellitus complication status: with kidney complications Diabetes mellitus complication detail: with chronic kidney disease Chronic kidney disease stage: on chronic dialysis Qualified Code(s): E10.22 - Type 1 diabetes mellitus with diabetic chronic kidney disease; N18.6 - End stage renal disease; Z99.2 - Dependence on renal dialysis Code(s): E10.9 - Type 1 diabetes mellitus without complications Status: Acute Assessment and Plan: Low-dose Lantus and sliding scale, very brittle with wide fluctuations. but down to 110 post dialysis before eating and d/c (5) Hypertensive emergency: Code(s): I16.1 - Hypertensive emergency Status: Acute Assessment and Plan: Pressure fell with parental meds as needed and dialysis should helped immensely with blood pressure As stated with dialysis and usuall meds bp down to 13 systolic by d/c (6) DVT prophylaxis: Code(s): Z29.9 - Encounter for prophylactic measures, unspecified Status: Acute Assessment and Plan: received sc Heparin while here DS: Summary Hospital Course Hospital Course: 54-year-old hypertensive type 1 brittle diabetic admitted and acute pulmonary edema with volume overload. Had to be intubated and mechanically ventilated for the 1st approximately 12 hours but quickly extubated and did well after dialysis. Had 4 L removed the 1st day, 1700 the 2nd and 3rd days. Follow-up chest x-ray showed continue resolution Blood pressure fell with fluid removal and repeat in soon his normal blood pressure medicines Blood sugar remained very labile as normal for him. He will be discharged to follow-up with his usual dialysis regime Monday the Time Spent with Patient Time attestation: Total time spent providing and/or coordinating discharge services: 35 minutes Exam Narrative: Exam Narrative: Condition on discharge Blood pressure 130/42 pulse is 84 Lungs clear is very faint basal crackle on the left CV regular rate rhythm no murmurs Abdomen soft nontender Extremities without edema good distal pulses Neuro alert pleasant cooperative no focal deficits DS: Data Data Completed and Pending Labs on day of discharge: Labs from last 24 hours 02/07/20 02/07/20 02/07/20 14:53 14:29 07:40 POC Capillary Glucose 206 H 110 495 H 02/06/20 02/06/20 20:33 16:20 POC Capillary Glucose 283 H 310 H Preliminary micro results at discha
== END 2020-02-07 15:37 | disposition home or self-care (01) | DRG 208 ==
LOC: ANHED 06:10 → ANHICU 07:09 → ANH2MED 02-07 10:55 → ANHICU 02-10 14:15
PROVIDERS: Internal Medicine; Internal Medicine Critical Care Medicine; Internal Medicine Nephrology; Admitting Provider Internal Medicine; Emergency Provider Emergency Medicine; PCP Emergency Medicine; Visit Provider Internal Medicine
DX: J96.01 Acute respiratory failure with hypoxia (principal); N18.6 End stage renal disease; I13.2 Hypertensive heart and chronic kidney disease with heart failure and with stage 5 chronic kidney disease, or end stage renal disease; I16.1 Hypertensive emergency; E10.22 Type 1 diabetes mellitus with diabetic chronic kidney disease; J96.02 Acute respiratory failure with hypercapnia; N40.0 Benign prostatic hyperplasia without lower urinary tract symptoms; I50.9 Heart failure, unspecified; D64.9 Anemia, unspecified; I25.10 Atherosclerotic heart disease of native coronary artery without angina pectoris; I25.2 Old myocardial infarction; Z95.5 Presence of coronary angioplasty implant and graft; F41.8 Other specified anxiety disorders; Z99.2 Dependence on renal dialysis; Z96.82 Presence of neurostimulator; E10.40 Type 1 diabetes mellitus with diabetic neuropathy, unspecified; E10.319 Type 1 diabetes mellitus with unspecified diabetic retinopathy without macular edema; Z89.511 Acquired absence of right leg below knee; Z98.49 Cataract extraction status, unspecified eye; F17.210 Nicotine dependence, cigarettes, uncomplicated; E87.70 Fluid overload, unspecified; E55.9 Vitamin D deficiency, unspecified; Z91.15 Patient's noncompliance with renal dialysis
CPT/HCPCS: 31500; 36415; 36600; 71045; 80053; 82805; 83605; 83880; 84484; 85025; 85610; 85730; 86706; 87040; 87340; 93005; 96365; 96366; 96375; 99291; A9270; G0257; J0360; J1644; J1815; J1940; J2704; J7030

== ENCOUNTER 2020-02-27 16:15 | Emergency (ER) | payer MEDICARE, MEDICAID, SELFPAY ==
--- NOTE | ~2020-02-27 | XR_ITS ---
EXAMINATION: XR chest 2V 02/27/2020 17:21 INDICATION: Right anterior rib pain PROCEDURE: 2 view chest COMPARISON: 02/06/2020 FINDINGS: The lungs are clear. The cardiomediastinal silhouette is within normal limits. There are no pleural effusions. There is no pneumothorax suspected. IMPRESSION: 1: NO ACUTE CARDIOPULMONARY DISEASE. Reviewed, dictated and finalized at location A.
[2020-02-27 16:35] VITALS: BP 157/63; PULSE 70; RESP 16; TEMP 36.8; O2SAT 100
--- NOTE | 2020-02-27 16:56 | ED.GENADULT ---
HPI - General Adult General Chief complaint: Unspecified Stated complaint: Right Side Rib Pain Time Seen by Provider: 02/27/20 16:56 Source: patient and RN notes reviewed History of Present Illness HPI narrative: Patient is a 54-year-old male that presents the urgent care with complaints of right-sided rib pain. Patient states that he lost his footing while standing on a footboard last night falling onto his right side. Patient is a right BKA and states that he sometimes loses his footing . Patient denies hitting his head or any loss of consciousness. Denies any other injuries due to the fall. Patient states that it is more painful with movement and deep breathing. No other acute complaints. No acute distress noted. Patient aware of the plan of care. Related Data Home Medications Medication Instructions Recorded Confirmed Lantus Solostar U-100 Insulin 10 unit SUBCUT HS 02/05/20 02/05/20 Lantus U-100 Insulin 12 unit SUBCUT DAILY 02/05/20 02/05/20 Renal Vitamin 1 tablet PO DAILY 02/05/20 02/05/20 Vitamin D3 4,000 unit PO DAILY 02/05/20 02/05/20 aspirin [Aspirin Childrens] 81 mg PO DAILY 02/05/20 02/05/20 atorvastatin 40 mg PO HS 02/05/20 02/05/20 calcitriol 0.25 mcg PO 3XW 02/05/20 02/05/20 carvedilol 50 mg PO Q12H 02/05/20 02/05/20 clonidine HCl 0.4 mg PO TID 02/05/20 02/05/20 clopidogrel 75 mg PO DAILY 02/05/20 02/05/20 cyanocobalamin (vitamin B-12) 1,000 mcg PO DAILY 02/05/20 02/05/20 furosemide 80 mg PO BID 02/05/20 02/05/20 insulin lispro [Humalog KwikPen 6 unit SUBCUT TIDWM 02/05/20 02/05/20 Insulin] nitroglycerin 0.4 mg SUBLINGUAL Q5MIN PRN 02/05/20 02/05/20 pantoprazole 40 mg PO DAILY 02/05/20 02/05/20 sertraline 25 mg PO DAILY 02/05/20 02/05/20 tamsulosin 0.4 mg PO DAILY 02/05/20 02/05/20 Allergies Allergy/AdvReac Type Severity Reaction Status Date / Time scopolamine Allergy Severe Unresponsiv Verified 02/05/20 11:26 e Review of Systems Review of Systems: Narrative: CONSTITUTIONAL: Denies fever, chills, or sweats. EYES: Denies visual changes, redness, or discharge. ENT: Denies rhinorrhea, congestion, sore throat, or otalgia. CARDIOVASCULAR: Denies chest pain, palpitations, or edema. RESPIRATORY: Denies cough or dyspnea. reports of right sided rib pain GASTROINTESTINAL: Denies abdominal pain, nausea, vomiting, or diarrhea. GENITOURINARY: Denies dysuria or hematuria. SKIN: Denies rash or itching. MUSCULOSKELETAL: Denies back pain, joint pain, or myalgia. NEUROLOGIC: Denies headache, numbness, or weakness. All other systems reviewed are negative, except as documented in HPI. [facility] Social History Social History Social History: The patient lives in [place] with his and their 22-year-old daughter. He is on disability. he designates his , Rosana, as his surrogate decision maker and he wishes to be a full code. He is a smoker, between 1 and 2 packs a day. He smokes marijuana daily. He denies significant alcohol use. Smoking packs per day: 2 Smoking cigarettes per day: 40.0 Years smoked: 32 Smoking pack-years: 64.00 Smoking status: Current every day smoker Tobacco type: cigarettes Second hand tobacco smoke exposure: Yes Additional smoking assessment comments: smokes marijuana every day Alcohol intake: never Substance use: current Substance use type: marijuana Last use: !01/08/19 everyday marijuana user Gender identity (if verbalized by the patient): Male Spiritual care concerns: No Agree to blood products: Yes Comments At the time of my signature, I reviewed and agree with the nursing past medical, surgical, social, and family history. There is no relevant family history pertinent to the patient complaint. Exam Narrative: Exam Narrative: GENERAL: This is a well-nourished, well-developed patient, in no apparent distress. HEAD: normocephalic, atraumatic. EYES: PERRL. Sclera clear/white. Vision is grossly intac
== END 2020-02-27 17:45 | disposition home or self-care (01) ==
PROVIDERS: Emergency Provider Nurse Practitioner Family
DX: S20.211A Contusion of right front wall of thorax, initial encounter (principal); W17.89XA Other fall from one level to another, initial encounter; F17.210 Nicotine dependence, cigarettes, uncomplicated; I25.2 Old myocardial infarction; I25.10 Atherosclerotic heart disease of native coronary artery without angina pectoris; Z95.5 Presence of coronary angioplasty implant and graft; J44.9 Chronic obstructive pulmonary disease, unspecified; F41.9 Anxiety disorder, unspecified; F32.9 Major depressive disorder, single episode, unspecified; E10.9 Type 1 diabetes mellitus without complications
CPT/HCPCS: 71046; 99213; G0463

== ENCOUNTER 2020-03-07 14:53 | Emergency (ER) | payer MEDICARE, MEDICAID, SELFPAY ==
--- NOTE | ~2020-03-07 | CT_ITS ---
EXAMINATION: CT abdomen pelvis wo con DATE: 03/07/2020 15:42 INDICATION: Right upper quadrant abdominal pain TECHNIQUE: Computed tomography (CT) of the abdomen and pelvis was performed without intravenous contr ast. Automated exposure control and iterative reconstruction technique were employed. Exam dose: 349 .01 mGy-cm total exam DLP. COMPARISON: 01/22/2020 retroperitoneal duplex Limited ultrasound examination FINDINGS: There are patchy bilateral lower lobe infiltrates and/or atelectasis, with some focal atele ctasis/consolidation in the medial base of the middle lobe, as well as mild discoid atelectasis or sc arring at the lung bases. The transverse cardiothoracic ratio measures approximate 14/25, consistent with cardiomegaly. There is extensive calcification of the abdominal aorta as well as prominent celiac, superior mesente rommel, renal and inferior mesenteric and bilateral iliac and femoral artery calcifications. The liver, spleen, pancreas appear essentially unremarkable on this limited noncontrast examination. The examination is compromised by considerable streak artifact from a battery pack in the left and rodriguez rdware in the lumbar and lumbosacral area. The gallbladder is present but not optimally demonstrated. Ultrasound would be more helpful for this purpose, given the history of right upper quadrant abdomin al pain. No bile duct or pancreatic duct dilatation is evident. There is bilateral diffuse renal atrophy and extensive bilateral renal artery calcified atheroscleros is. There is evidence of bilateral renal cysts, measuring up to approximately 2 cm is maximal dimensi on on the left. No ureteral calculus or hydroureteronephrosis is evident. The urinary bladder is unre markable. There are bilateral dog ears, with bladder extending into bilateral fat-containing inguinal hernias. Caution must be exercised is there is inguinal hernia repair in order to avoid bladder inju ry. There is a very prominent amount of fecal material in the colon; no bowel obstruction or intraperiton eal free air is evident. Degenerative changes of the thoracic and particularly lumbar spine including prominent degenerative d isc disease L2-3 particularly. Posterior and interbody spinal fusion at L4-5 and L5-S1. Osteoarthritic changes of both hip joints. IMPRESSION: Patchy bilateral lower lung infiltrates and/or atelectasis Cardiomegaly Extensive atherosclerotic calcifications, including particularly the renal arteries, as well as monse c and mesenteric arteries, abdominal aorta, iliac and femoral arteries Bilateral diffuse renal atrophy Renal cysts Bilateral dog ears and bilateral fat-containing inguinal hernias; caution should be exercised if ther e is a very inguinal hernia repair Very prominent fecal material in the colon Reviewed, dictated and finalized at [facility]. Reviewed, dictated and finalized at location A. IMPRESSION: Patchy bilateral lower lung infiltrates and/or atelectasis Cardiomegaly Extensive atherosclerotic calcifications, including particularly the renal pauline suki, as well as celiac and mesenteric arteries, abdominal aorta, iliac and fem oral arteries Bilateral diffuse renal atrophy Renal cysts Bilateral dog ears and bilateral fat-containing inguinal hernias; caution shoul d be exercised if there is a very inguinal hernia repair Very prominent fecal material in the colon
[2020-03-07 14:59] VITALS: BP 190/79; PULSE 100; RESP 18; TEMP 36.9; O2SAT 96
--- NOTE | 2020-03-07 15:20 | ED.ABDPAIN ---
HPI - Abdominal Pain General Chief Complaint: Abdominal Pain Stated Complaint: abdominal pain/fall/right rib pain Time Seen by Provider: 03/07/20 15:06 History of Present Illness HPI narrative: Patient presents with his for ongoing abdominal pain. He says he has it off and on a lot but it has been pretty consistent for the last month. It has been nonstop for the last 2 weeks. He gives it a 7 out of 10 rating. He has a history of pancreatitis. He locates it in the right upper quadrant, without radiation. He has no nausea, no vomiting and no recent stool. He said that his dentures were lost a month ago and because of that he has been unable to eat from. He is angry about this and says someone lost them. He has a history of diabetes hypertension and end-stage renal disease on dialysis Monday. He has a right lower leg amputation from peripheral vascular disease. He still smokes. He says he rarely drinks alcohol. He denies being sick otherwise. Related Data Home Medications Medication Instructions Recorded Confirmed Lantus Solostar U-100 Insulin 10 unit SUBCUT HS 02/05/20 02/05/20 Lantus U-100 Insulin 12 unit SUBCUT DAILY 02/05/20 02/05/20 Renal Vitamin 1 tablet PO DAILY 02/05/20 02/05/20 Vitamin D3 4,000 unit PO DAILY 02/05/20 02/05/20 aspirin [Aspirin Childrens] 81 mg PO DAILY 02/05/20 02/05/20 atorvastatin 40 mg PO HS 02/05/20 02/05/20 calcitriol 0.25 mcg PO 3XW 02/05/20 02/05/20 carvedilol 50 mg PO Q12H 02/05/20 02/05/20 clopidogrel 75 mg PO DAILY 02/05/20 02/05/20 cyanocobalamin (vitamin B-12) 1,000 mcg PO DAILY 02/05/20 02/05/20 furosemide 80 mg PO BID 02/05/20 02/05/20 insulin lispro [Humalog KwikPen 6 unit SUBCUT TIDWM 02/05/20 02/05/20 Insulin] nitroglycerin 0.4 mg SUBLINGUAL Q5MIN PRN 02/05/20 02/05/20 pantoprazole 40 mg PO DAILY 02/05/20 02/05/20 sertraline 25 mg PO DAILY 02/05/20 02/05/20 tamsulosin 0.4 mg PO DAILY 02/05/20 02/05/20 Allergies Allergy/AdvReac Type Severity Reaction Status Date / Time scopolamine Allergy Severe Unresponsiv Verified 03/07/20 15:02 e Review of Systems Review of Systems: Narrative: CONSTITUTIONAL: Denies fever, chills, or sweats. EYES: Denies visual changes, redness, or discharge. ENT: Denies rhinorrhea, congestion, sore throat, or otalgia. CARDIOVASCULAR: Denies chest pain, palpitations, or edema. RESPIRATORY: Denies cough or dyspnea. GASTROINTESTINAL: Denies nausea, vomiting, or diarrhea. GENITOURINARY: Denies dysuria or hematuria. SKIN: Denies rash or itching. MUSCULOSKELETAL: Denies back pain, joint pain, or myalgia. NEUROLOGIC: Denies headache, numbness, or weakness. PSYCHIATRIC: Denies anxiety or depression. [facility] Past Medical History Medical History Benign prostatic hyperplasia CHF (congestive heart failure) Chronic anemia Coronary artery disease With non STEMI in December 2019, with stent placed to the LAD. Depression with anxiety Diabetes Dialysis patient End-stage renal disease on hemodialysis ESRD (end stage renal disease) Flash pulmonary edema GERD (gastroesophageal reflux disease) Hypertension Seizure Secondary to hypoglycemia. Tobacco dependence Type 1 diabetes mellitus Diagnosed at the age of 10. Complicated by retinopathy, nephropathy, and neuropathy. Hemoglobin A1c was 8.1% in December 2019. Vitamin D deficiency disease Surgical History Surgical History History of spinal surgery Neurostimulator in place. Status post below knee amputation of right lower extremity December 02, 2019 at [facility]. Status post cataract extraction Status post hemorrhoidectomy Social History Social History Social History: The patient lives in [place] with his and their 22-year-old daughter. He is on disability. he designates his , Rosana, as his surrogate decision
[2020-03-07 15:35] LABS: Basophils Absolute Auto 0.1 K/mm3 (0.0-0.1); Basophils Percent Auto 0.5 % (0.2-1.2); Eosinophils Absolute Auto 0.3 K/mm3 (0-0.3); Eosinophils Percent Auto 2.7 % (0-4.4); Hematocrit 29.2 % (42.0-52.0); Hemoglobin 9.2 g/dL (14.0-18.0); Immature Granulocyte Percent A 0.8 % (0-0.5); Lymphocytes Absolute Auto 1.76 K/mm3 (0.9-3.2); Lymphocytes Percent Auto 14.3 % (18.3-44.2); Mean Corpuscular HGB Conc 31.5 g/dl (32-36); Mean Corpuscular Hemoglobin 31.7 pg (26-34); Mean Corpuscular Volume 100.7 fl (80-100); Mean Platelet Volume 9.1 fl (7.4-10.4); Monocytes Absolute Auto 0.9 K/mm3 (0.1-0.6); Monocytes Percent Auto 7.6 % (2.6-8.5); Neutrophils Absolute Auto 9.1 K/mm3 (1.3-6.7); Neutrophils Percent Auto 74.1 % (45.5-73.1); Platelet Count Result 323 k/mm3 (150-375); Red Cell Distribution Width 16.3 % (11.5-14.5); White Blood Count 12.3 K/mm3 (4.5-10.0)
[2020-03-07 15:45] LABS: Prothrombin Time 12.4 Seconds (11.1-14.7)
[2020-03-07 15:46] LABS: Partial Thromboplastin Time 31.5 SECONDS (22.3-36.8)
[2020-03-07 15:52] LABS: Alanine Aminotransferase 14 U/L (4-50); Albumin Level 3.9 g/dL (3.5-5.1); Alkaline Phosphatase 71 U/L (38-126); Aspartate Amino Transferase 30 U/L (17-59); Bilirubin,Total 0.4 mg/dL (0.2-1.3); Blood Urea Nitrogen 39 mg/dL (9-20); Calcium 9.3 mg/dL (8.4-10.2); Carbon Dioxide 29 mmol/L (22-30); Chloride 100 mmol/L (98-107); Estimated CRCL calculation 11 ml/min; Estimated Glomerular Filt Rate 9; Glucose 184 mg/dL (75-110); Lipase 269 U/L (23-300); Potassium 4.5 mmol/L (3.4-5.0); Sodium 139 mmol/L (137-145)
[2020-03-07 16:03] LABS: Troponin I 0.014 ng/mL (0.000-0.034)
--- NOTE | 2020-03-07 17:05 | PC.NURSE ---
IV insertion was not documented by RN that did it. This RN took out IV and site was WNL
== END 2020-03-07 17:07 | disposition home or self-care (01) ==
PROVIDERS: Emergency Provider Emergency Medicine; PCP Emergency Medicine
DX: E10.22 Type 1 diabetes mellitus with diabetic chronic kidney disease (principal); I13.2 Hypertensive heart and chronic kidney disease with heart failure and with stage 5 chronic kidney disease, or end stage renal disease; N18.6 End stage renal disease; K59.00 Constipation, unspecified; E10.319 Type 1 diabetes mellitus with unspecified diabetic retinopathy without macular edema; E10.40 Type 1 diabetes mellitus with diabetic neuropathy, unspecified; E10.59 Type 1 diabetes mellitus with other circulatory complications; F17.210 Nicotine dependence, cigarettes, uncomplicated; Z99.2 Dependence on renal dialysis; Z79.4 Long term (current) use of insulin; Z79.82 Long term (current) use of aspirin; F41.8 Other specified anxiety disorders; I25.10 Atherosclerotic heart disease of native coronary artery without angina pectoris; I25.2 Old myocardial infarction; Z95.5 Presence of coronary angioplasty implant and graft; K21.9 Gastro-esophageal reflux disease without esophagitis; E55.9 Vitamin D deficiency, unspecified; Z98.49 Cataract extraction status, unspecified eye; Z89.511 Acquired absence of right leg below knee
CPT/HCPCS: 36415; 74176; 80053; 83690; 84484; 85025; 85610; 85730; 99284

== ENCOUNTER 2020-03-10 21:00 | Inpatient (IN) | payer MEDICARE, MEDICAID, SELFPAY ==
--- NOTE | ~2020-03-10 | XR_ITS ---
EXAMINATION: XR abdomen NG/feed tube rechec DATE: 03/11/2020 06:37 INDICATION: Orogastric tube advancement. TECHNIQUE: A supine view of the abdomen was obtained. COMPARISON: Abdomen radiograph at 3:06 AM. Chest single view 03/10/2020, chest CT 03/11/2020 FINDINGS: The lower abdomen is excluded. There are no dilated loops of bowel. The nasogastric tube ti p is in the stomach. There are changes of posterior fusion procedure in lumbar spine. Electrodes over lie lumbar spine. There are airspace opacities in the perihilar regions, right worse than left. There is a diffuse interstitial pattern in the lungs. No pleural effusion or pneumothorax. The heart size is normal. IMPRESSION: 1. Nasogastric tube tip in the stomach. 2. Normal bowel gas pattern. 3. Unchanged diffuse lung disease, likely a combination of pneumonia and pulmonary edema. Reviewed, dictated and finalized at location A. IMPRESSION: 1. Nasogastric tube tip in the stomach. 2. Normal bowel gas pattern. 3. Unchanged diffuse lung disease, likely a combination of pneumonia and pulmon júnior edema.
--- NOTE | ~2020-03-10 | XR_ITS ---
EXAMINATION: XR chest 1V portable DATE: 03/12/2020 05:54 INDICATION: Pneumonia. TECHNIQUE: A single frontal view of the chest was obtained. COMPARISON: Chest single view 03/10/2020, chest CT 03/11/2020 FINDINGS: The patient is rotated to his left. There are airspace opacities in right mid and lower loren g zones and left lower lung zone. No pleural effusion or pneumothorax. The heart size is normal. The endotracheal tube tip is 4.8 cm above the luciano. The nasogastric tube tip is beyond the inferior mar gin of the radiograph, but at least to the stomach. IMPRESSION: 1. Airspace opacities in right mid and lower lung zones and left lower lung zone with improvement, co nsistent with pneumonia. Reviewed, dictated and finalized at location A. IMPRESSION: 1. Airspace opacities in right mid and lower lung zones and left lower lung zon e with improvement, consistent with pneumonia.
--- NOTE | ~2020-03-10 | XR_ITS ---
XR abdomen/kub 1V 03/14/2020 10:58 Indication: Evaluate for ileus or obstruction. Procedure: AP view of the abdomen Comparison: 03/11/2020 Findings: NG tube in the stomach. Surgical changes consistent with fusion at L4 S1. Bowel pattern is nonobstructive with fecal loading of the rectum. There is extensive renal arterial calcification. Hai g bases unremarkable. Impression: 1: Nonobstructive bowel gas pattern. Reviewed, dictated and finalized at location A. Impression: 1: Nonobstructive bowel gas pattern.
--- NOTE | ~2020-03-10 | XR_ITS ---
EXAMINATION: XR abdomen NG/feed tube insert DATE: 03/11/2020 03:16 INDICATION: Orogastric tube placement. TECHNIQUE: A semiupright view of the abdomen was obtained. COMPARISON: CT 03/11/2020 FINDINGS: The lower abdomen is excluded. There are no dilated loops of bowel. The nasogastric tube ti p is in the stomach. There are changes of posterior fusion procedure in lumbar spine. Electrodes over lie the lumbar spine. There is a diffuse interstitial pattern in the lungs. There are airspace opacit ies in the perihilar regions, right worse than left. IMPRESSION: 1. Nasogastric tube tip in the stomach. 2. Diffuse lung disease, likely a combination of pulmonary edema and pneumonia. Reviewed, dictated and finalized at location A.
--- NOTE | ~2020-03-10 | CT_ITS ---
EXAMINATION: CT chest abdomen pelvis w con DATE: 03/11/2020 00:50 INDICATION: Dyspnea. Generalized abdominal pain. TECHNIQUE: Computed tomography (CT) of the chest, abdomen, and pelvis was performed with 100 mL Omnip aque 350 intravenous contrast. Automated exposure control and iterative reconstruction technique were employed. The dose-length product was 788.25 mGy-cm. COMPARISON: CT abdomen and pelvis 03/07/2020 FINDINGS: CHEST CT: There is diffuse smooth septal thickening in the lungs. There are groundglass opacities scattered in all lobes. There are airspace opacities in all lobes with a posterior predominance, right worse than left. There are small pleural effusions. The endotracheal tube tip is in expected position above the luciano. The heart size is normal. There are coronary artery calcifications. No pericardial effusion. The central pulmonary arteries are enlarged, consistent with pulmonary arterial hypertension. There i s mild mediastinal lymphadenopathy. There is moderate thoracic spondylosis. There are chronic jc keke fractures of T4 and T5. ABDOMEN/PELVIS CT: There are foci of gas in the inferior vena cava, likely from IV injection. Foci of gas in left hepati c lobe are likely in hepatic veins, likely also from IV injection. There is wall thickening of the ga llbladder, likely interstitial edema. The spleen, pancreas, and adrenal glands are normal. There is m ild atrophy of the kidneys. There are cysts in the kidneys measuring up to 2.4 cm on the left. There is diffuse wall thickening of the colon. The appendix is normal. There are no dilated loops of bowel. There are extensive arterial calcifications. There is moderate bilateral renal artery stenosis. Ther e is mild retroperitoneal lymphadenopathy. There is no free intraperitoneal fluid. There are healing fractures of right L2 and L3 transverse processes. There are changes of anterior and posterior fusion procedures from L4 to S1. There is moderate lumbar spondylosis. Electrodes posterior to lumbar spine are likely a bone stimulator. There is a left inguinal central venous catheter with tip in left comm on iliac vein. IMPRESSION: 1. Severe diffuse lung disease, likely a combination of pulmonary edema and pneumonia. 2. Small pleural effusions. 3. Mild mediastinal and retroperitoneal lymphadenopathy, likely reactive. 4. Diffuse wall thickening of the colon, which may be interstitial edema or colitis. 5. Bilateral renal artery stenosis. Reviewed, dictated and finalized at location A. IMPRESSION: 1. Severe diffuse lung disease, likely a combination of pulmonary edema and pne umonia. 2. Small pleural effusions. 3. Mild mediastinal and retroperitoneal lymphadenopathy, likely reactive. 4. Diffuse wall thickening of the colon, which may be interstitial edema or col itis. 5. Bilateral renal artery stenosis.
--- NOTE | ~2020-03-10 | XR_ITS ---
EXAMINATION: XR chest ET placement EXAM DATE: 03/10/2020 23:41 INDICATION: Intubated, respiratory failure. TECHNIQUE: Portable AP frontal chest x-ray was obtained. Comparison is made to prior examination from 02/27/2020. FINDINGS: Endotracheal tube is adequately positioned. There is interval development of confluent righ t perihilar airspace disease, smaller amount of left perihilar airspace disease, acute process such a s pneumonia, acute lung injury, edema. No pneumothorax or pleural effusion. Cardiomediastinal silhoue tte is normal. There is aortic arterial sclerosis. IMPRESSION: Development of extensive right perihilar, small left perihilar acute airspace disease. Cl inical correlation. Reviewed, dictated and finalized at location G. IMPRESSION: Development of extensive right perihilar, small left perihilar acut e airspace disease. Clinical correlation.
--- NOTE | ~2020-03-10 | XR_ITS ---
EXAMINATION: XR chest 1V portable DATE: 03/13/2020 06:11 INDICATION: Pneumonia TECHNIQUE: frontal view of the chest was obtained. COMPARISON: Chest radiograph dated 03/12/2020 FINDINGS: Endotracheal tube tip 5.3 cm above the luciano. Nasogastric tube extends below the left hemidiaphragm with distal tip collimated off the study. No significant interval change in airspace opacities in the bilateral lower lung zones. No pleural ef fusion or pneumothorax. The cardiomediastinal silhouette is normal. IMPRESSION: 1. Unchanged opacities in the bilateral lower lung zones consistent with pneumonia. Reviewed, dictated and finalized at location A. IMPRESSION: 1. Unchanged opacities in the bilateral lower lung zones consistent with pneumo tyree.
--- NOTE | ~2020-03-10 | XR_ITS ---
XR chest 1V portable 03/15/2020 06:29 Indication: Pneumonia. Respiratory distress. Procedure: AP portable chest Comparison: Comparison to multiple prior studies sequentially, with oldest reviewed study dated 03/10. Findings: Interval removal of endotracheal and NG tubes. Heart size normal. No focal air space diseas e, pulmonary edema, pleural effusion or suspected pneumothorax. Impression: 1: No acute cardiopulmonary disease. Reviewed, dictated and finalized at location A. Impression: 1: No acute cardiopulmonary disease.
--- NOTE | ~2020-03-10 | XR_ITS ---
XR chest 1V portable 03/14/2020 06:27 Indication: Pneumonia Procedure: AP portable chest Comparison: Comparison to multiple prior studies sequentially, with oldest reviewed study dated 02/26. Findings: Endotracheal tube tip 7.9 cm above the luciano. NG tube in the stomach. Heart size normal. N o focal air space disease, pulmonary edema, pleural effusion or suspected pneumothorax. Impression: 1: No acute cardiopulmonary disease. Resolution of bilateral airspace disease since prior examination s. Reviewed, dictated and finalized at location A. Impression: 1: No acute cardiopulmonary disease. Resolution of bilateral airspace disease s lani prior examinations.
[2020-03-10 21:00] VITALS: BP 268/117; PULSE 120; PULSE 162; RESP 26; RESP 38; TEMP 36.8; O2SAT 97; O2SAT 98
--- NOTE | 2020-03-10 21:03 | ECG_ITS ---
Measurements Intervals [place] Rate: 162 P: [place]: 0 QRS: -18 QRSD: 90 T: -14 QT: 257 QTc: 423 Interpretive Statements SINUS OR ECTOPIC ATRIAL TACHYCARDIA LEFT VENTRICULAR HYPERTROPHY AND ST-T CHANGE CONSIDER INFERIOR INFARCT, AGE INDETERMINATE BASELINE WANDER- I, III, AVL, AVF, V4-V6 ABNORMAL ECG Electronically Signed On 03-11-2020 7:36:49 CDT by Edmond Elias D.O.
--- NOTE | 2020-03-10 21:03 | ED.ABDPAIN ---
HPI - Abdominal Pain General Chief Complaint: Abdominal Pain Stated Complaint: abd Source: patient and EMS Mode of arrival: EMS Limitations: no limitations History of Present Illness HPI narrative: Patient is a 54-year-old male with a history of chronic kidney disease on dialysis, diabetes, who presents for evaluation of abdominal pain. Patient reports a worsening history of abdominal pain throughout the day, pain became severe this evening, currently sharp, stabbing in nature in the right lower quadrant but radiates throughout abdomen. Patient denies back pain or chest pain. No cough, congestion or shortness of breath. Patient denies fever. Patient reports he has been unable to have a bowel movement today, yesterday had a soft bowel movement without hard stool. Patient denies vomiting, but reports nausea. Patient was recently seen in this emergency department discharged home yesterday for a ground-level fall. Related Data Home Medications Medication Instructions Recorded Confirmed Lantus Solostar U-100 Insulin 10 unit SUBCUT HS 02/05/20 02/05/20 Lantus U-100 Insulin 12 unit SUBCUT DAILY 02/05/20 02/05/20 Renal Vitamin 1 tablet PO DAILY 02/05/20 02/05/20 Vitamin D3 4,000 unit PO DAILY 02/05/20 02/05/20 aspirin [Aspirin Childrens] 81 mg PO DAILY 02/05/20 02/05/20 calcitriol 0.25 mcg PO 3XW 02/05/20 02/05/20 carvedilol 50 mg PO Q12H 02/05/20 02/05/20 clopidogrel 75 mg PO DAILY 02/05/20 02/05/20 cyanocobalamin (vitamin B-12) 1,000 mcg PO DAILY 02/05/20 02/05/20 furosemide 80 mg PO BID 02/05/20 02/05/20 insulin lispro [Humalog KwikPen 6 unit SUBCUT TIDWM 02/05/20 02/05/20 Insulin] nitroglycerin 0.4 mg SUBLINGUAL Q5MIN PRN 02/05/20 02/05/20 pantoprazole 40 mg PO DAILY 02/05/20 02/05/20 tamsulosin 0.4 mg PO DAILY 02/05/20 02/05/20 Allergies Allergy/AdvReac Type Severity Reaction Status Date / Time scopolamine Allergy Severe Unresponsiv Verified 03/07/20 15:02 e Review of Systems Review of Systems: Narrative: CONSTITUTIONAL: Denies fever, chills, or sweats. EYES: Denies visual changes, redness, or discharge. ENT: Denies rhinorrhea, congestion, sore throat, or otalgia. CARDIOVASCULAR: Denies chest pain, palpitations, or edema. RESPIRATORY: Denies cough or dyspnea. GASTROINTESTINAL: Reports abdominal pain, nausea, reports constipation GENITOURINARY: Denies dysuria or hematuria. SKIN: Denies rash or itching. MUSCULOSKELETAL: Denies back pain, joint pain, or myalgia. NEUROLOGIC: Denies headache, numbness, or weakness. [facility]END[facility] SALE TO [facility] Past Medical History Medical History Benign prostatic hyperplasia CHF (congestive heart failure) Chronic anemia Coronary artery disease With non STEMI in December 2019, with stent placed to the LAD. Depression with anxiety Diabetes Dialysis patient End-stage renal disease on hemodialysis ESRD (end stage renal disease) Flash pulmonary edema GERD (gastroesophageal reflux disease) Hypertension Seizure Secondary to hypoglycemia. Tobacco dependence Type 1 diabetes mellitus Diagnosed at the age of 10. Complicated by retinopathy, nephropathy, and neuropathy. Hemoglobin A1c was 8.1% in December 2019. Vitamin D deficiency disease Surgical History Surgical History History of spinal surgery Neurostimulator in place. Status post below knee amputation of right lower extremity December 02, 2019 at [facility]. Status post cataract extraction Status post hemorrhoidectomy Family History Family History Father Hypertension Sibling Multiple myeloma Hypertension Sibling Hypertension Sibling Hypertension Father Hypertension Sibling Multiple myeloma Mother Acute myelogenous leukemia Sibling Hypertension Sibling Hypertension Sibling Hypertension Social History Social History (Reviewed 03/10/20 @ 21:06 by Montez
[2020-03-10] MEDS: NITROGLYCERIN SL 0.4 MG TABLET SUBLINGUAL (21:12)
[2020-03-10] MEDS: ONDANSETRON INJ 4 MG/2 ML VIAL IV PUSH (21:14)
[2020-03-10] MEDS: FUROSEMIDE INJ 40 MG/4 ML VIAL 20 MG IV PUSH (21:17)
--- NOTE | 2020-03-10 21:20 | PC.NURSE ---
21:20, pt became diaphoretic and increased anxiety, nasal canual at 4lpm, MD at bedside, ordered Bipap, nitro drip, and lasix. 21:21 Bipap placed on pt.
[2020-03-10 21:25] LABS: Basophils Absolute Auto 0.1 K/mm3 (0.0-0.1); Basophils Percent Auto 0.4 % (0.2-1.2); Eosinophils Absolute Auto 0.3 K/mm3 (0-0.3); Eosinophils Percent Auto 2.2 % (0-4.4); Hematocrit 33.4 % (42.0-52.0); Hemoglobin 10.6 g/dL (14.0-18.0); Immature Granulocyte Absolute 0.08 K/mm3 (0.00-0.031); Immature Granulocyte Percent A 0.5 % (0-0.5); Lymphocytes Absolute Auto 1.67 K/mm3 (0.9-3.2); Lymphocytes Percent Auto 11.3 % (18.3-44.2); Mean Corpuscular HGB Conc 31.7 g/dl (32-36); Mean Corpuscular Hemoglobin 31.5 pg (26-34); Mean Corpuscular Volume 99.4 fl (80-100); Mean Platelet Volume 9.2 fl (7.4-10.4); Monocytes Absolute Auto 1.2 K/mm3 (0.1-0.6); Monocytes Percent Auto 8.1 % (2.6-8.5); Neutrophils Absolute Auto 11.4 K/mm3 (1.3-6.7); Neutrophils Percent Auto 77.5 % (45.5-73.1); Platelet Count Result 348 k/mm3 (150-375); Red Blood Count 3.36 M/mm3 (4.6-6.20); Red Cell Distribution Width 16.3 % (11.5-14.5); White Blood Count 14.8 K/mm3 (4.5-10.0)
[2020-03-10] MEDS: NITROGLYCERIN/D5W 200 MCG/ML 50 MG/250 ML BTL IV CONT (21:25)
--- NOTE | 2020-03-10 21:35 | PC.NURSE ---
NACl not given per MD, pt having SHOB and given lasix.
[2020-03-10 21:36] LABS: Lactic Acid Reflex 2.6 mmol/L (0.7-2.1)
[2020-03-10 21:37] LABS: Alanine Aminotransferase 31 U/L (4-50); Albumin Level 4.6 g/dL (3.5-5.1); Alkaline Phosphatase 95 U/L (38-126); Aspartate Amino Transferase 47 U/L (17-59); Bilirubin,Total 0.5 mg/dL (0.2-1.3); Blood Urea Nitrogen 58 mg/dL (9-20); Calcium 9.5 mg/dL (8.4-10.2); Carbon Dioxide 19 mmol/L (22-30); Chloride 102 mmol/L (98-107); Estimated CRCL calculation 8 ml/min; Estimated Glomerular Filt Rate 6; Glucose 131 mg/dL (75-110); Potassium 4.7 mmol/L (3.4-5.0); Sodium 139 mmol/L (137-145)
--- NOTE | 2020-03-10 21:53 | PC.NURSE ---
MD at bedside, ordered Nitro drip to be increased to 10mcg,
[2020-03-10 22:25] LABS: Alveolar/Arterial O2 Gradient 175.2 mmHg; Base Excess ABG -8.9 mEq/l (+/-2.0); Carboxyhemoglobin 2.3 % THb (0-2.0); Fractional Inspired Oxygen 40 %; HCO3 ABG 19.2 mEq/l (22.0-26.0); Methemoglobin ABG 0.3 %THb (0-1.5); Oxygen Content ABG 12.5 %vol (16.0-22.0); Oxyhemoglobin 75.4 % THb (90.0-100.0); PCO2 ABG 50.7 mmHg (35.0-45.0); PO2 ABG 51.7 mmHg (80.0-100.0); PO2 FiO2 Ratio Arterial Blood 1.29 %; Total Hemoglobin 11.8 g/dL (12.0-18.0)
[2020-03-10 22:28] LABS: Device BIPAP; Modified Allen's Test Pass; Oxygen Saturation ABG 78.1 % (95.0-100.0); Site Drawn RIGHT RADIAL; pH ABG 7.196 (7.350-7.450)
[2020-03-10 22:29] LABS: Expiratory Pressure 5 cmH2O; Inspiratory Pressure 15 cmH2O
[2020-03-10] MEDS: RAPID SEQUENCE INTUBATION KIT 1 EACH (23:23)
[2020-03-10 23:32] VITALS: BP 227/145; PULSE 140; RESP 17; O2SAT 96
[2020-03-10] MEDS: PROPOFOL IV EMULSION 100 ML 2.1 MG IV CONT (23:39)
[2020-03-10] MEDS: ROCURONIUM BROMIDE 50 MG/5 ML VIAL 100 MG IV PUSH (23:40)
[2020-03-10 23:47] VITALS: PULSE 141; RESP 16; O2SAT 91
[2020-03-11] VITALS (48 sets, daily range): BP systolic 73–188; BP diastolic 47–91; PULSE 68–150; RESP 16–23; TEMP 35.8–37; O2SAT 94–100; BMI 24.3
[2020-03-11] MEDS: LABETALOL HCL INJ 200 MG in DEXTROSE 5% IN WATER 160 ML 120 MG IV CONT (00:10)
[2020-03-11 00:23] LABS: Reflex Lactic Acid Yes or No Add Lactic
--- NOTE | 2020-03-11 00:57 | PC.NURSE ---
pt to ct per stretcher, pt soniya well, iv infusing without diff.
[2020-03-11 01:12] LABS: Lactic Acid 0.9 mmol/L (0.7-2.1)
[2020-03-11 01:28] LABS: Alveolar/Arterial O2 Gradient 242.6 mmHg; Carboxyhemoglobin 1.4 % THb (0-2.0); Fractional Inspired Oxygen 50 %; HCO3 ABG 19.8 mEq/l (22.0-26.0); Methemoglobin ABG 0.1 %THb (0-1.5); Oxygen Content ABG 14.8 %vol (16.0-22.0); Oxygen Saturation ABG 92.2 % (95.0-100.0); Oxyhemoglobin 90.2 % THb (90.0-100.0); PCO2 ABG 40.3 mmHg (35.0-45.0); PO2 ABG 68.6 mmHg (80.0-100.0); PO2 FiO2 Ratio Arterial Blood 1.37 %; Reduced Hemoglobin 8.3 %THb (0-5.0); Total Hemoglobin 11.6 g/dL (12.0-18.0)
[2020-03-11 01:29] LABS: Site Drawn RIGHT BRACHIAL
[2020-03-11 01:30] LABS: Arterial Blood Gas Vent Mode CMV; Arterial Blood Gas Ventilator rate 16 /MIN; Device VENTILATOR
[2020-03-11 01:31] LABS: Arterial Blood Gas PEEP 5 cmH2O; Arterial Blood Gas Tidal Volume 450 ml
--- NOTE | 2020-03-11 02:30 | PC.NURSE ---
pt brought to ICU 1 on ventilator. transfered to bed and placed on monitor Lobatalol drip d/c'd bp 120/75. Og tube placed
--- NOTE | 2020-03-11 02:54 | ADMGEN ---
This patient, Ish Corley, was admitted to Intensive Care Unit-1. Patient/family oriented to hospital policies and general routines including ID bracelet, bed and alarms, visiting hours, pain management, procedures, bathroom and other care routines, personal items, smoking policy, room service/diet, and visiting hours. Valuables list has been completed. Information on how to activate the Rapid Response Team has been discussed. Patient/Family are encouraged to report perceived risks to care and to ask questions if they do not understand what they are told or what they should do.
[2020-03-11] MEDS: PROPOFOL IV EMULSION 100 ML 16.9 MG IV CONT (03:17)
--- NOTE | 2020-03-11 03:21 | PM.IMHP ---
H&P: HPI History of Present Illness Chief complaint: Flash pulminary edema, Respiratory failure,Colitis Narrative: This is a 54 year old Diabetic male with known ESRD on HD who presented to the hospital yesterday evening for the evaluation of abdominal pain and was complaining of constipation to the ER provder. He denied any back pain,chest pain, cough, congestion, shortness of breath, or fever to the ER provider. Shortly after the patient was in the ER he quickly decompensated and was emergently intubated after he failed Bipap and Lasix. He was found to have severely elevated blood pressure. CXR demonstrated diffuse pulmonary edema. The patient had not been treated with any IV fluids while he was in the ER. The patient was placed on IV labetalol and propofol for his elevated blood pressure. Professor Of Theatre was consulted by ER provider. IV antibiotics were administered in the ER. CT abd/pelvis demonstrated colonic distention without perforation. General surgery was consulted by ER provider. NG tube was placed and dark material was drained. No other history is obtainable at this time secondary to the patient's clnical condition. Review of Systems Review of Systems: ROS unobtainable: Yes unobtainable due to endotracheal tube and unobtainable due to mental status PMFSH Past Medical History Medical History Benign prostatic hyperplasia CHF (congestive heart failure) Chronic anemia Coronary artery disease With non STEMI in December 2019, with stent placed to the LAD. Depression with anxiety Diabetes Dialysis patient End-stage renal disease on hemodialysis ESRD (end stage renal disease) Flash pulmonary edema GERD (gastroesophageal reflux disease) Hypertension Seizure Secondary to hypoglycemia. Tobacco dependence Type 1 diabetes mellitus Diagnosed at the age of 10. Complicated by retinopathy, nephropathy, and neuropathy. Hemoglobin A1c was 8.1% in December 2019. Vitamin D deficiency disease Surgical History Surgical History History of spinal surgery Neurostimulator in place. Status post below knee amputation of right lower extremity December 02, 2019 at [facility]. Status post cataract extraction Status post hemorrhoidectomy Family History Family History Father Hypertension Sibling Multiple myeloma Hypertension Sibling Hypertension Sibling Hypertension Father Hypertension Sibling Multiple myeloma Mother Acute myelogenous leukemia Sibling Hypertension Sibling Hypertension Sibling Hypertension Social History Social History Social History: The patient lives in [place] with his and their 22-year-old daughter. He is on disability. he designates his , Rosana, as his surrogate decision maker and he wishes to be a full code. He is a smoker, between 1 and 2 packs a day. He smokes marijuana daily. He denies significant alcohol use. Smoking packs per day: 2 Smoking cigarettes per day: 40.0 Years smoked: 32 Smoking pack-years: 64.00 Smoking status: Current every day smoker Tobacco type: cigarettes Second hand tobacco smoke exposure: Yes Additional smoking assessment comments: smokes marijuana every day Alcohol intake: unknown Substance use: current Substance use type: marijuana Last use: !01/08/19 everyday marijuana user Gender identity (if verbalized by the patient): Male Spiritual care concerns: No Agree to blood products: Yes Meds Home Medications and Allergies Home Medications Medication Instructions Recorded Confirmed Type albuterol sulfate 2.5 mg INHALATION Q6HRT PRN #0 ea 12/22/19 03/11/20 Rx Lantus Solostar U-100 Insulin 10 unit SUBCUT HS 02/05/20 03/11/20 History Lantus U-100 Insulin 12 unit SUBCUT DAILY 02/05/20 03/11/20 History Re
[2020-03-11 06:13] LABS: Basophils Percent Auto 0.1 % (0.2-1.2); Hematocrit 31.1 % (42.0-52.0); Hemoglobin 9.8 g/dL (14.0-18.0); Immature Granulocyte Absolute 0.15 K/mm3 (0.00-0.031); Immature Granulocyte Percent A 0.7 % (0-0.5); Mean Corpuscular HGB Conc 31.5 g/dl (32-36); Mean Corpuscular Hemoglobin 31.6 pg (26-34); Mean Corpuscular Volume 100.3 fl (80-100); Mean Platelet Volume 9.4 fl (7.4-10.4); Monocytes Percent Auto 4.8 % (2.6-8.5); Neutrophils Absolute Auto 18.1 K/mm3 (1.3-6.7); Neutrophils Percent Auto 90.4 % (45.5-73.1); Platelet Count Result 343 k/mm3 (150-375); Red Cell Distribution Width 16.1 % (11.5-14.5); White Blood Count 20.1 K/mm3 (4.5-10.0)
[2020-03-11 06:24] LABS: Blood Urea Nitrogen 64 mg/dL (9-20); Calcium 8.5 mg/dL (8.4-10.2); Carbon Dioxide 18 mmol/L (22-30); Chloride 96 mmol/L (98-107); Estimated CRCL calculation 8 ml/min; Estimated Glomerular Filt Rate 6; Glucose 329 mg/dL (75-110); Magnesium 2.7 mg/dL (1.6-2.3); Potassium 5.7 mmol/L (3.4-5.0); Sodium 134 mmol/L (137-145)
[2020-03-11 06:37] LABS: Troponin I 0.076 ng/mL (0.000-0.034)
[2020-03-11 06:49] LABS: Gastric Negative Control Negative; Gastric Positive Control Positive; Occult Blood Gastric Fluid Positive; pH Gastric Fluid 1 (1-8)
[2020-03-11 07:03] LABS: Ovalocytes 1+ (NORMAL); Platelet Estimate Adequate (Adequate); Poikilocytosis 1+ (NORMAL)
[2020-03-11 07:04] LABS: Burr Cells 1+ (NORMAL)
[2020-03-11 07:47] LABS: Base Excess ABG -6.6 mEq/l (+/-2.0); Fractional Inspired Oxygen 50 %; HCO3 ABG 18.9 mEq/l (22.0-26.0); Oxygen Content ABG 14.4 %vol (16.0-22.0); Oxygen Saturation ABG 98.5 % (95.0-100.0); Oxyhemoglobin 96.9 % THb (90.0-100.0); PCO2 ABG 37.4 mmHg (35.0-45.0); PO2 ABG 134.4 mmHg (80.0-100.0); PO2 FiO2 Ratio Arterial Blood 2.69 %; Total Hemoglobin 10.4 g/dL (12.0-18.0); pH ABG 7.321 (7.350-7.450)
[2020-03-11 07:48] LABS: Arterial Blood Gas PEEP 5 cmH2O; Arterial Blood Gas Tidal Volume 450 ml; Arterial Blood Gas Vent Mode CMV; Arterial Blood Gas Ventilator rate 16 /MIN; Device VENTILATOR; Modified Allen's Test Pass; Site Drawn RIGHT RADIAL
[2020-03-11 08:45] LABS: CRP 4.8 mg/dL (<1.0); Lactate Dehydrogenase 519 U/L (313-618)
--- NOTE | 2020-03-11 10:26 | PM.PNNEP ---
Progress Note: A&P Assessment and Plan (1) ESRD (end stage renal disease): Code(s): N18.6 - End stage renal disease Status: Chronic Assessment and Plan: HD today and continue M/W/F dialysis schedule FULL CONSULT TO FOLLOW Subjective Date/time seen: 03/11/20 10:26 Tolerating dialyis treatment at the time of my visit (seen on HD at ~ 10:15AM); no apparent distress but currently intubated; no other issues or problems to report at this time. Exam Narrative: Exam Narrative: General: WD/WN male currently intubated but in NAD Heart: normal S1 and S2; no rub Lungs: coarse breath sounds Abdomen: soft, nontender, nondistended, positive bowel sounds Extremities: no cyanosis or clubbing; trace edema Skin: warm and dry Objective Data Vital Signs Vital Signs: Vital Signs Temp Pulse Resp BP Pulse Ox 03/11/20 10:15 119/65 03/11/20 10:00 84 118/68 03/11/20 09:45 83 106/59 L 03/11/20 09:30 80 108/58 L 03/11/20 09:24 79 107/58 L 03/11/20 09:15 36.4 C L 80 16 112/54 L 100 03/11/20 07:37 81 100 03/11/20 06:00 36.7 C 82 17 108/57 L 100 03/11/20 05:56 84 23 H 100 03/11/20 05:53 84 03/11/20 05:13 79 100 03/11/20 04:00 36.8 C 74 20 116/61 100 03/11/20 03:13 36.7 C 74 20 120/75 99 03/11/20 03:07 150 H 98 03/11/20 02:59 74 03/11/20 02:39 68 16 106/66 98 03/11/20 02:30 110 H 97 03/11/20 01:36 36.2 C L 78 16 125/76 95 03/11/20 00:56 91 16 188/91 H 94 03/11/20 00:13 97 16 168/86 H 96 03/10/20 23:47 141 H 16 91 03/10/20 23:32 140 H 17 227/145 H 96 03/10/20 21:00 36.8 C 162 H 38 H 268/117 H 98 Intake/Output Intake/Output: Intake & Output 03/08/20 03/09/20 03/10/20 03/11/20 23:59 23:59 23:59 23:59 Intake Total 380 Output Total 950 Balance -570 Meds/Results Medications: Active Medications Generic Name Dose Route Start Last Admin Trade Name Freq PRN Reason Stop Dose Admin Dextrose 12.5 gm 03/11/20 03:16 Dextrose 50% Syringe IV PUSH PRN PRN Hypoglycemia Protocol Epoetin Johnnie 10,000 units 03/11/20 19:02 Epogen IV PUSH 03/11/20 19:03 ONCE ONE Glucagon 1 mg 03/11/20 03:16 Glucagon For Inj IM PRN PRN Hypoglycemia Protocol Lactated Ringer's 1,000 mls @ 125 mls/hr 03/11/20 01:00 Lr - Lactated Ringers Iv IV CONT .Q8H MARTHA Fentanyl Citrate 2,500 mcg in 250 mls @ 10 mls/hr 03/11/20 02:50 03/11/20 05:47 Fentanyl 2,500 Mcg/Ns 250 Ml IV CONT 100 mcg/hr .Q25H MARTHA 10 mls/hr Titration Protocol 100 MCG/HR Dextrose 1,000 mls @ 100 mls/hr 03/11/20 03:16 Dextrose 5% 1,000 Ml IVPB PRN PRN Hypoglycemia Protocol Midazolam HCl 50 mg in 100 mls @ 2 mls/hr 03/11/20 05:35 Versed 50 Mg/D5w 100 Ml IV CONT .Q50H MARTHA Protocol 1 MG/HR Albumin Human 50 mls @ 999 mls/hr 03/11/20 07:02 Albutein IVPB 04/10/20 07:03 Q10M PRN HYPOTENSION Propofol 100 mls @ 2.114 mls/hr 03/11/20 09:35 Diprivan IV CONT .[id number] MARTHA Protocol 5 MCG/KG/MIN Vancomycin HCl 1,000 mg in 250 mls @ 250 mls/hr 03/11/20 09:54 Vancomycin 1,000 Mg/D5w 250 Ml IVPB PRN PRN Kinetics Consult Insulin Aspart 2 - 5 units 03/11/20 08:00 Novolog SUB-Q TIDWM MARTHA Protocol Multi-Ingred Cream/Lotion/Oil/Oint 1 applic 03/11/20 09:00 Lubrifresh Pm Eye Ointment EACH EYE Q12HR [facility] Radiology Results: ITS Impressions Chest X-Ray 03/10/20 23:50 IMPRESSION: Development of extensive right perihilar, small left perihilar acute airspace disease. Clinical correlation. Abdomen X-Ray 03/11/20 07:00 IMPRESSION: 1. Nasogastric tube tip in the stomach. 2. Diffuse lung disease, likely a combination of pulmonary edema and pneumonia. Chest/Abdomen/Pelvis CT 03/11/20 07:24 IMPRESSION: 1. Severe diffuse lung dis
--- NOTE | 2020-03-11 11:15 | WPDCNINT ---
Assessment and Plan Assessment and plan (1) Acute respiratory failure with hypoxia: Code(s): J96.01 - Acute respiratory failure with hypoxia Status: Acute Assessment and Plan: Acute Respiratory failure secondary to pulmonary edema and possible pneumonia Continue full mechanical ventilation support to prevent hypoxemia/hypercarbia and end organ damage. ABG and PCXR reviewed and will repeat in am. Low tidal volume ventilation strategy to prevent volutrauma Will attempt SBT when ready to wean. Bronchodilators Empiric vancomycin and Zosyn will check blood and sputum culture hemodialysis to remove fluid vent settings reviewed and will do a breathing trial after hemodialysis (2) Pneumonia: Code(s): J18.9 - Pneumonia, unspecified organism Status: Acute Assessment and Plan: see above (3) Pulmonary edema: Qualifiers: Chronicity: acute Qualified Code(s): J81.0 - Acute pulmonary edema Code(s): J81.1 - Chronic pulmonary edema Status: Acute Assessment and Plan: secondary to CHF and end-stage renal dialysis patient is undergoing hemodialysis for fluid removal (4) Suspected 2019 novel coronavirus infection: Code(s): R68.89 - Other general symptoms and signs Status: Acute Assessment and Plan: COVID-19 suspected although atypical presentation SARS-CoV-2 PCR sent and results pending Patient is in Airborne, Droplet and Contact Isolation (5) End stage renal disease: Code(s): N18.6 - End stage renal disease Status: Acute Assessment and Plan: nephrology consulted patient is now being started on hemodialysis (6) Acute hyperkalemia: Code(s): E87.5 - Hyperkalemia Status: Acute Assessment and Plan: patient is on hemodialysis at this time (7) Hypertensive urgency: Code(s): I16.0 - Hypertensive urgency Status: Acute Assessment and Plan: when patient presented his systolic blood pressure was in 200s but now improved as patient is intubated and sedated. Monitor and treat as needed (8) GERD (gastroesophageal reflux disease): Code(s): K21.9 - Gastro-esophageal reflux disease without esophagitis Status: Acute Assessment and Plan: PPI (9) DVT prophylaxis: Code(s): Z29.9 - Encounter for prophylactic measures, unspecified Status: Acute Assessment and Plan: subcu heparin (10) Type 1 diabetes mellitus: Qualifiers: Diabetes mellitus complication status: with kidney complications Diabetes mellitus complication detail: with chronic kidney disease Chronic kidney disease stage: on chronic dialysis Qualified Code(s): E10.22 - Type 1 diabetes mellitus with diabetic chronic kidney disease; N18.6 - End stage renal disease; Z99.2 - Dependence on renal dialysis Code(s): E10.9 - Type 1 diabetes mellitus without complications Status: Chronic Assessment and Plan: sliding scale and Lantus Additional Plan DVT prophylaxis - subcutaneous heparin Stress ulcer prophylaxis - PPI Nutrition - NPO will start tube feeds if unable to extubate Code Status - full code Total Critical Care Time - 30 minutes Due to a high probability of clinically significant, life threatening deterioration, the patient required my highest level of preparedness to intervene emergently and I personally spent this critical care time directly and personally managing the patient. This critical care time included obtaining a history; examining the patient; pulse oximetry; ordering and review of studies; arranging urgent treatment with development of a management plan; evaluation of patient's response to treatment; frequent reassessment; and discussions with other providers. It was exclusive of separately billable procedures and treating other patients and teaching time. Please see Assessment and Plan section and the rest of the note for further information on
[2020-03-11] MEDS: EPOETIN ALFA 10,000 UNITS/ML VIAL 10000 UNITS IV PUSH (11:22)
[2020-03-11] MEDS: INSULIN GLARGINE (*BKC) 100 UNITS/ML 10 UNITS SUB-Q (11:30)
[2020-03-11] MEDS: ALBUMIN HUMAN 25% 12.5 GM/50ML 50 ML IVPB (11:34)
[2020-03-11] MEDS: PROPOFOL IV EMULSION 100 ML 2.1 MG IV CONT (12:00)
--- NOTE | 2020-03-11 14:32 | PM.IMPN ---
Progress Note: A&P Assessment and Plan (1) Acute respiratory failure with hypoxia: Code(s): J96.01 - Acute respiratory failure with hypoxia Status: Acute Assessment and Plan: Appears to be secondary to flash pulmonary edema. The patient has a history of multiple hospitalizations for being fluid overloaded. Admit to ICU, telemetry, NPO, Continue ventilatory support and wean off as tolerated. We will continue sedation with fentanyl and propofol overnight. Stallion Manager has been consulted. Monitor ABG. RT assess and treat. 03/11/20 14:32 patient is a 55-year-old male with history of end-stage initial disease on hemodialysis and diabetes he presented emergency department with a complaint of abdominal pain however while in the emergency department he decompensated he was placed on BiPAP and IV Lasix without much improvement in his respiratory and patient was emergently intubated and transferred to ICU, is a concern the patient may have COVID-19, patient CRP is elevated as well as D-dimer and chest x-ray is very diagnostic of COVID-19 most likely patient is positive, and under isolation, upon arrival patient blood pressure was significantly elevated most likely secondary to respiratory stress, he was started on labetalol IV is blood pressure is now trending down, he was seen but not examined unable to provide any history of review of symptoms, patient seen by brazing machine operator and appreciate (2) Pulmonary edema: Qualifiers: Chronicity: acute Qualified Code(s): J81.0 - Acute pulmonary edema Code(s): J81.1 - Chronic pulmonary edema Status: Acute Assessment and Plan: The patient has had lasix in the ER tonight. Its unknown exactly how much urine he makes daily if any. He will likely benefit from dialysis today. Nephrology has been consulted by ER provider. (3) Colitis: Code(s): K52.9 - Noninfective gastroenteritis and colitis, unspecified Status: Acute Assessment and Plan: Continue IV antibiotics. NPO. NG tube in place. Check gastric occult. General surgery has been consulted by ER provider. (4) End stage renal disease: Code(s): N18.6 - End stage renal disease Status: Acute Assessment and Plan: Continue nephrology recommendations as the patient is a dialysis patient. (5) Lactic acidosis: Code(s): E87.2 - Acidosis Status: Acute Assessment and Plan: Now resolved. Likely secondary to poor prefusion from HTN event. (6) Suspected 2019 novel coronavirus infection: Code(s): R68.89 - Other general symptoms and signs Status: Acute Assessment and Plan: The patient has been tested for COVID-19 in the ER. Test results pending. Continue supportive care. Contact isolation. (7) Hypertensive urgency: Code(s): I16.0 - Hypertensive urgency Status: Acute Assessment and Plan: Now resolved and appears to have been secondary to acute respiratory failure. Monitor blood pressure closely. (8) Type 1 diabetes mellitus: Qualifiers: Diabetes mellitus complication status: with kidney complications Diabetes mellitus complication detail: with chronic kidney disease Chronic kidney disease stage: on chronic dialysis Qualified Code(s): E10.22 - Type 1 diabetes mellitus with diabetic chronic kidney disease; N18.6 - End stage renal disease; Z99.2 - Dependence on renal dialysis Code(s): E10.9 - Type 1 diabetes mellitus without complications Status: Chronic Assessment and Plan: Accuchecks, SSI Coverage, Hypoglycemic protocol. (9) HLD (hyperlipidemia): Qualifiers: Hyperlipidemia type: unspecified Qualified Code(s): E78.5 - Hyperlipidemia, unspecified Code(s): E78.5 - Hyperlipidemia, unspecified Status: Chronic Assessment and Plan: resume statin therapy when appropriate. Subjective Date/time seen: 03/11/20 14:32 patient is a 55-year-old male with history of end-stag
[2020-03-11 19:13] LABS: Glucose Point of Care 242 (65-105)
[2020-03-11 19:13] LABS: Glucose Point of Care 142 (65-105)
[2020-03-11 19:13] LABS: Glucose Point of Care 148 (65-105)
[2020-03-11] MEDS: HEPARIN SODIUM 5,000 UNITS/ML VIAL 5000 UNITS SUB-Q (20:40)
[2020-03-11 20:57] LABS: Glucose Point of Care 172 (65-105)
[2020-03-11] MEDS: PROPOFOL IV EMULSION 100 ML 21.1 MG IV CONT (21:39)
[2020-03-12] VITALS (31 sets, daily range): BP systolic 92–145; BP diastolic 48–80; PULSE 6–98; RESP 16–20; TEMP 35.2–37; O2SAT 96–100
[2020-03-12 00:44] LABS: Glucose Point of Care 183 (65-105)
[2020-03-12] MEDS: ALTEPLASE 2 MG VIAL (CATHFLO) IV PUSH (03:21)
[2020-03-12] MEDS: WATER, STERILE FOR INJECTION 10 ML VIAL XX (03:24)
[2020-03-12 03:31] LABS: Alveolar/Arterial O2 Gradient 97.2 mmHg; Base Excess ABG 5.4 mEq/l (+/-2.0); Fractional Inspired Oxygen 30 %; HCO3 ABG 29.2 mEq/l (22.0-26.0); Oxygen Content ABG 14.8 %vol (16.0-22.0); Oxygen Saturation ABG 95.2 % (95.0-100.0); Oxyhemoglobin 92.6 % THb (90.0-100.0); PCO2 ABG 39.7 mmHg (35.0-45.0); PO2 ABG 70.1 mmHg (80.0-100.0); PO2 FiO2 Ratio Arterial Blood 2.34 %; Site Drawn RIGHT RADIAL; Total Hemoglobin 11.3 g/dL (12.0-18.0); pH ABG 7.485 (7.350-7.450)
[2020-03-12 03:32] LABS: Arterial Blood Gas PEEP 5 cmH2O; Arterial Blood Gas Tidal Volume 450 ml; Arterial Blood Gas Vent Mode CMV; Arterial Blood Gas Ventilator rate 16 /MIN; Device VENTILATOR; Modified Allen's Test Pass
[2020-03-12 05:42] LABS: Basophils Absolute Auto 0.1 K/mm3 (0.0-0.1); Basophils Percent Auto 0.4 % (0.2-1.2); Eosinophils Absolute Auto 0.3 K/mm3 (0-0.3); Eosinophils Percent Auto 2.2 % (0-4.4); Hematocrit 31.2 % (42.0-52.0); Immature Granulocyte Absolute 0.07 K/mm3 (0.00-0.031); Immature Granulocyte Percent A 0.6 % (0-0.5); Lymphocytes Absolute Auto 1.42 K/mm3 (0.9-3.2); Lymphocytes Percent Auto 11.5 % (18.3-44.2); Mean Corpuscular HGB Conc 32.1 g/dl (32-36); Mean Corpuscular Hemoglobin 31.9 pg (26-34); Mean Corpuscular Volume 99.7 fl (80-100); Mean Platelet Volume 9.4 fl (7.4-10.4); Monocytes Percent Auto 7.9 % (2.6-8.5); Neutrophils Absolute Auto 9.6 K/mm3 (1.3-6.7); Neutrophils Percent Auto 77.4 % (45.5-73.1); Platelet Count Result 321 k/mm3 (150-375); Red Blood Count 3.13 M/mm3 (4.6-6.20); Red Cell Distribution Width 16.4 % (11.5-14.5); White Blood Count 12.3 K/mm3 (4.5-10.0)
[2020-03-12 06:07] LABS: D Dimer 3.13 ug/mL (<0.48)
[2020-03-12 06:46] LABS: Alanine Aminotransferase 20 U/L (4-50); Albumin Level 3.8 g/dL (3.5-5.1); Alkaline Phosphatase 82 U/L (38-126); Aspartate Amino Transferase 30 U/L (17-59); Bilirubin,Total 0.5 mg/dL (0.2-1.3); Blood Urea Nitrogen 34 mg/dL (9-20); CRP 18.9 mg/dL (<1.0); Calcium 9.2 mg/dL (8.4-10.2); Carbon Dioxide 31 mmol/L (22-30); Chloride 89 mmol/L (98-107); Estimated CRCL calculation 10 ml/min; Estimated Glomerular Filt Rate 8; Glucose 243 mg/dL (75-110); Lactate Dehydrogenase 404 U/L (313-618); Magnesium 2.3 mg/dL (1.6-2.3); Potassium 3.9 mmol/L (3.4-5.0); Sodium 138 mmol/L (137-145)
[2020-03-12] MEDS: INSULIN ASPART (*BKC) 100 UNITS/ML SUB-Q ×2 (07:01→11:24)
[2020-03-12 07:07] LABS: Glucose Point of Care 249 (65-105)
[2020-03-12 07:15] LABS: Vancomycin Random 9.2 ug/mL (10-20)
[2020-03-12] MEDS: ASPIRIN 325 MG TABLET PO (08:06)
[2020-03-12] MEDS: PANTOPRAZOLE SODIUM IV 40 MG VIAL IV PUSH (08:07)
[2020-03-12] MEDS: CLOPIDOGREL BISULFATE 75 MG TABLET PO (08:07)
[2020-03-12] MEDS: HEPARIN SODIUM 5,000 UNITS/ML VIAL 5000 UNITS SUB-Q ×2 (08:07→22:11)
[2020-03-12] MEDS: INSULIN GLARGINE (*BKC) 100 UNITS/ML 10 UNITS SUB-Q (08:27)
--- NOTE | 2020-03-12 09:41 | WPDINTPN ---
Progress Note: A&P Assessment and Plan (1) Acute respiratory failure with hypoxia: Code(s): J96.01 - Acute respiratory failure with hypoxia Status: Acute Assessment and Plan: Acute Respiratory failure secondary to pulmonary edema and possible pneumonia - Continue full mechanical ventilation support to prevent hypoxemia/hypercarbia and end organ damage. - ABG and PCXR reviewed - continueLow tidal volume ventilation strategy to prevent volutrauma - Will attempt SBT when ready to wean. - Bronchodilators - Empiric vancomycin and Zosyn - sputum and blood cultures have been ordered - will discuss with Nephrology regarding hemodialysis today (2) Pneumonia: Code(s): J18.9 - Pneumonia, unspecified organism Status: Acute Assessment and Plan: see above (3) Pulmonary edema: Qualifiers: Chronicity: acute Qualified Code(s): J81.0 - Acute pulmonary edema Code(s): J81.1 - Chronic pulmonary edema Status: Acute Assessment and Plan: secondary to CHF and end-stage renal dialysis - patient was dialyzed on 03/11/2020, will discuss with Nephrology regarding dialysis again today (4) Suspected 2019 novel coronavirus infection: Code(s): R68.89 - Other general symptoms and signs Status: Acute Assessment and Plan: COVID-19 suspected although atypical presentation SARS-CoV-2 PCR sent and results pending Patient is in Airborne, Droplet and Contact Isolation (5) End stage renal disease: Code(s): N18.6 - End stage renal disease Status: Acute Assessment and Plan: appreciate Nephrology evaluation and recommendations, dialysis per button riveter (6) Acute hyperkalemia: Code(s): E87.5 - Hyperkalemia Status: Acute Assessment and Plan: RESOLVED post dialysis (7) Hypertensive urgency: Code(s): I16.0 - Hypertensive urgency Status: Acute Assessment and Plan: patient had similar symptoms when he was admitted at the end of January 2020 - blood pressures have been stable with positive pressure ventilation and sedation. - Patient initially presented with systolic blood pressures of over 200s. - Holding antihypertensives (8) GERD (gastroesophageal reflux disease): Code(s): K21.9 - Gastro-esophageal reflux disease without esophagitis Status: Acute Assessment and Plan: PPI (9) DVT prophylaxis: Code(s): Z29.9 - Encounter for prophylactic measures, unspecified Status: Acute Assessment and Plan: subcu heparin (10) Type 1 diabetes mellitus: Qualifiers: Diabetes mellitus complication status: with kidney complications Diabetes mellitus complication detail: with chronic kidney disease Chronic kidney disease stage: on chronic dialysis Qualified Code(s): E10.22 - Type 1 diabetes mellitus with diabetic chronic kidney disease; N18.6 - End stage renal disease; Z99.2 - Dependence on renal dialysis Code(s): E10.9 - Type 1 diabetes mellitus without complications Status: Chronic Assessment and Plan: sliding scale and Lantus Additional Plan will discuss with family. Will start tube feeds code status: Full code Total Critical Care Time - 30 minutes Due to a high probability of clinically significant, life threatening deterioration, the patient required my highest level of preparedness to intervene emergently and I personally spent this critical care time directly and personally managing the patient. This critical care time included obtaining a history; examining the patient; pulse oximetry; ordering and review of studies; arranging urgent treatment with development of a management plan; evaluation of patient's response to treatment; frequent reassessment; and discussions with other providers. It was exclusive of separately billable procedures and treating other patients and teaching time. Please see Assessment and Plan section and
--- NOTE | 2020-03-12 11:12 | PCDIET ---
ICU Rounding Note: Patient remains NPO which is appropriate. OG to suction with 900mL output thus far today. Last recorded weight is 59.8kg which is decreased. -I/O. Patient had 2L UF yesterday with possible plan for dialysis again today. Bowel Motility: No documented BM as of yet. Labs Reviewed: Glu (249), BUN (34), Cr (6.9), Alb (3.8) Meds Noted: Albuterol, Fentanyl, Novolog, Protonix, Lantus, Versed, Zosyn, Vancomycin, Propofol (current rate of 21.2mL/hr provides 557kcal over 24 hour period) Additional Notes: No documented skin breakdown. Following daily in ICU rounds. Assessing/reassessing every 3 days.
--- NOTE | 2020-03-12 12:40 | PM.IMPN ---
Progress Note: A&P Assessment and Plan (1) Acute respiratory failure with hypoxia: Code(s): J96.01 - Acute respiratory failure with hypoxia Status: Acute Assessment and Plan: Appears to be secondary to flash pulmonary edema. The patient has a history of multiple hospitalizations for being fluid overloaded. Admit to ICU, telemetry, NPO, Continue ventilatory support and wean off as tolerated. We will continue sedation with fentanyl and propofol overnight. Regulatory Law Specialist has been consulted. Monitor ABG. RT assess and treat. 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 and diabetes he presented emergency department with a complaint of abdominal pain however while in the emergency department he decompensated he was placed on BiPAP and IV Lasix without much improvement in his respiratory and patient was emergently intubated and transferred to ICU, is a concerning thay patient may have COVID-19, patient CRP were elevated as well as D-dimer and chest x-ray was very diagnostic of COVID-19, again today there is increase in CRP, D Dimer however chest x-ray today shows some improvement, most likely patient is positive, and under isolation, upon arrival patient blood pressure was significantly elevated most likely secondary to respiratory stress, he was started on labetalol IV is blood pressure is now trending down, he is seen by bridge manager and appreciate, he has ESRD and seen by superintendent pipelines and will have scheduled dialysis, Covid-19 test is still pendign he was seen but not examined unable to provide any history of review of symptoms as he is on vent. (2) Pulmonary edema: Qualifiers: Chronicity: acute Qualified Code(s): J81.0 - Acute pulmonary edema Code(s): J81.1 - Chronic pulmonary edema Status: Acute Assessment and Plan: The patient has had lasix in the ER tonight. Its unknown exactly how much urine he makes daily if any. He seen by superintendent pipelines and will have scheduled dialysis (3) Colitis: Code(s): K52.9 - Noninfective gastroenteritis and colitis, unspecified Status: Acute Assessment and Plan: CT of abdomen showed diffuse wall thickening of the colon, which may be interstitial edema or colitis. Patient on Zosyn will continue to monitor (4) End stage renal disease: Code(s): N18.6 - End stage renal disease Status: Acute Assessment and Plan: Continue nephrology recommendations as the patient is a dialysis patient. (5) Lactic acidosis: Code(s): E87.2 - Acidosis Status: Acute Assessment and Plan: Now resolved. Likely secondary to poor prefusion from HTN event. (6) Suspected 2019 novel coronavirus infection: Code(s): R68.89 - Other general symptoms and signs Status: Acute Assessment and Plan: The patient has been tested for COVID-19 in the ER. Test results pending. Continue supportive care. Contact isolation. (7) Hypertensive urgency: Code(s): I16.0 - Hypertensive urgency Status: Acute Assessment and Plan: Now resolved and appears to have been secondary to acute respiratory failure. Monitor blood pressure closely. (8) Type 1 diabetes mellitus: Qualifiers: Chronic kidney disease stage: on chronic dialysis Diabetes mellitus complication detail: with chronic kidney disease Diabetes mellitus complication status: with kidney complications Qualified Code(s): E10.22 - Type 1 diabetes mellitus with diabetic chronic kidney disease; N18.6 - End stage renal disease; Z99.2 - Dependence on renal dialysis Code(s): E10.9 - Type 1 diabetes mellitus without complications Status: Chronic Assessment and Plan: Accuchecks, SSI Coverage, Hypoglycemic protocol. (9) HLD (hyperlipidemia): Qualifiers: Hyperlipidemia type: unspecified Qualified Code(s): E78.5 - Hyperlipidemia, unspecified Code(s): E78.5 - Hy
--- NOTE | 2020-03-12 14:59 | PM.CNNEP ---
Assessment and Plan Assessment and plan (1) End stage renal disease: Code(s): N18.6 - End stage renal disease Status: Acute (2) Acute respiratory failure with hypoxia: Code(s): J96.01 - Acute respiratory failure with hypoxia Status: Acute (3) Pneumonia: Code(s): J18.9 - Pneumonia, unspecified organism Status: Acute (4) Pulmonary edema: Qualifiers: Chronicity: acute Qualified Code(s): J81.0 - Acute pulmonary edema Code(s): J81.1 - Chronic pulmonary edema Status: Acute (5) Hypertensive urgency: Code(s): I16.0 - Hypertensive urgency Status: Acute (6) Type 1 diabetes mellitus: Qualifiers: Diabetes mellitus complication status: with kidney complications Diabetes mellitus complication detail: with chronic kidney disease Chronic kidney disease stage: on chronic dialysis Qualified Code(s): E10.22 - Type 1 diabetes mellitus with diabetic chronic kidney disease; N18.6 - End stage renal disease; Z99.2 - Dependence on renal dialysis Code(s): E10.9 - Type 1 diabetes mellitus without complications Status: Chronic Assessment and Plan: . Additional Plan Jorge has end-stage renal disease and is on dialysis 3 times a week. He received dialysis yesterday to maintain his Monday, Monday, Monday dialysis schedule and we will continue dialysis on this schedule while he remains hospitalized. Given his chest x-ray findings, tentative plan is for dry ultrafiltration today to see if this will further facilitate ventilatory weaning and improve his respiratory status. His acute respiratory failure is likely multifactorial and is due to pulmonary edema, possible pneumonia, as well as the concern for COVID 19 infection. HIS COVID-19 testing is still pending and remains on IV antibiotic therapy on the concern for possible pneumonia as well. As evident by his records, the patient has had several presentations to [facility] with hypertensive urgency with associated respiratory distress secondary to pulmonary edema requiring BiPAP/mechanical ventilation to try and maintain stability in thi issue. However, the concern for pneumonia as well as COVID-19 infection are likely contributing factors with regard to this hospital admission. I will continue follow patient with you while she he remains hospitalized and make further recommendations during his hospital course and continue to make adjustments to his medications and dialysis prescription in effort to maintain stability in his electrolytes, volume status, and clearance. Thank you for allowing me to participate in the care this patient. History of Present Illness Reason for Consult Consult date: 03/12/20 Reason for consult: end stage renal disease Chief Complaint Chief complaint: Flash pulminary edema, Respiratory failure,Colitis History of Present Illness Narrative: All of the information obtained from review of the electronic medical record, my discussion with the ER physician on admission, and my personal experience taking care of this patient as he is currently intubated and sedated and unable to provide me with any history. The patient is a 54 year old male with a past medical history as outlined below presented to [facility] ER with complaints of abdominal pain/constipation. He reported no other systemic symptoms to the ER provider on initial evaluation with regard to back pain,chest pain, cough, congestion, shortness of breath, or fever. However, after this, the patient quickly decompensated and was emergently intubated after he failed a trial of BIPAP as well as IV diuretics with regard to his respiratory status. It should be noted that his BP was quite high (> 200 systolic). Further evaluation including blood work demonstrated labs consistent with his known history of end-stage renal disease and his chest x-ray demonstrated diffuse pulmonary edema. He was started on IV lab
[2020-03-12 17:54] LABS: Glucose Point of Care 345 (65-105)
[2020-03-12 17:55] LABS: Glucose Point of Care 182 (65-105)
[2020-03-13] VITALS (31 sets, daily range): BP systolic 88–183; BP diastolic 47–82; PULSE 78–122; RESP 10–25; TEMP 35.5–36.9; O2SAT 95–100
[2020-03-13] MEDS: INSULIN ASPART (*BKC) 100 UNITS/ML SUB-Q ×4 (00:30→23:16)
[2020-03-13] MEDS: PROPOFOL IV EMULSION 100 ML 21.1 MG IV CONT ×2 (00:33→07:02)
[2020-03-13 00:55] LABS: Glucose Point of Care 318 (65-105)
[2020-03-13 03:51] LABS: Base Excess ABG 5.5 mEq/l (+/-2.0); Carboxyhemoglobin 0.3 % THb (0-2.0); Fractional Inspired Oxygen 30 %; HCO3 ABG 29.6 mEq/l (22.0-26.0); Methemoglobin ABG 0.3 %THb (0-1.5); Oxygen Content ABG 16.7 %vol (16.0-22.0); Oxygen Saturation ABG 96.7 % (95.0-100.0); Oxyhemoglobin 95.2 % THb (90.0-100.0); PCO2 ABG 41.2 mmHg (35.0-45.0); PO2 ABG 82.5 mmHg (80.0-100.0); PO2 FiO2 Ratio Arterial Blood 2.75 %; Reduced Hemoglobin 4.2 %THb (0-5.0); Total Hemoglobin 12.4 g/dL (12.0-18.0); pH ABG 7.474 (7.350-7.450)
[2020-03-13 03:52] LABS: Arterial Blood Gas Vent Mode CMV; Arterial Blood Gas Ventilator rate 16 /MIN; Device VENTILATOR; Modified Allen's Test Pass; Site Drawn RIGHT RADIAL
[2020-03-13 03:53] LABS: Arterial Blood Gas PEEP 5 cmH2O; Arterial Blood Gas Tidal Volume 450 ml
[2020-03-13 05:21] LABS: D Dimer 0.95 ug/mL (<0.48)
[2020-03-13 05:27] LABS: Basophils Absolute Auto 0.1 K/mm3 (0.0-0.1); Basophils Percent Auto 0.7 % (0.2-1.2); Eosinophils Absolute Auto 0.3 K/mm3 (0-0.3); Eosinophils Percent Auto 2.9 % (0-4.4); Hemoglobin 10.5 g/dL (14.0-18.0); Immature Granulocyte Absolute 0.05 K/mm3 (0.00-0.031); Immature Granulocyte Percent A 0.5 % (0-0.5); Lymphocytes Absolute Auto 1.63 K/mm3 (0.9-3.2); Lymphocytes Percent Auto 15.5 % (18.3-44.2); Mean Corpuscular HGB Conc 31.8 g/dl (32-36); Mean Corpuscular Hemoglobin 31.3 pg (26-34); Mean Corpuscular Volume 98.5 fl (80-100); Mean Platelet Volume 9.6 fl (7.4-10.4); Monocytes Percent Auto 9.1 % (2.6-8.5); Neutrophils Absolute Auto 7.5 K/mm3 (1.3-6.7); Neutrophils Percent Auto 71.3 % (45.5-73.1); Platelet Count Result 405 k/mm3 (150-375); Red Blood Count 3.35 M/mm3 (4.6-6.20); Red Cell Distribution Width 16.2 % (11.5-14.5); White Blood Count 10.5 K/mm3 (4.5-10.0)
[2020-03-13 05:32] LABS: Alanine Aminotransferase 20 U/L (4-50); Albumin Level 4.1 g/dL (3.5-5.1); Alkaline Phosphatase 91 U/L (38-126); Aspartate Amino Transferase 38 U/L (17-59); Bilirubin,Total 0.5 mg/dL (0.2-1.3); Blood Urea Nitrogen 47 mg/dL (9-20); Calcium 9.7 mg/dL (8.4-10.2); Carbon Dioxide 30 mmol/L (22-30); Chloride 86 mmol/L (98-107); Estimated CRCL calculation 7 ml/min; Estimated Glomerular Filt Rate 6; Glucose 297 mg/dL (75-110); Lactate Dehydrogenase 368 U/L (313-618); Magnesium 2.7 mg/dL (1.6-2.3); Potassium 4.1 mmol/L (3.4-5.0); Sodium 136 mmol/L (137-145)
[2020-03-13 05:38] LABS: CRP 21.8 mg/dL (<1.0)
[2020-03-13 08:03] LABS: SARS-CoV-2 RNA PCR Negative
[2020-03-13] MEDS: EPOETIN ALFA 10,000 UNITS/ML VIAL 5000 UNITS IV PUSH (08:28)
--- NOTE | 2020-03-13 09:20 | WPDINTPN ---
Progress Note: A&P Assessment and Plan (1) Acute respiratory failure with hypoxia: Code(s): J96.01 - Acute respiratory failure with hypoxia Status: Acute Assessment and Plan: Acute Respiratory failure secondary to pulmonary edema and possible pneumonia - Continue full mechanical ventilation support to prevent hypoxemia/hypercarbia and end organ damage. - ABG and PCXR reviewed - continue Low tidal volume ventilation strategy to prevent volutrauma - patient is on fentanyl and propofol for sedation - Empiric vancomycin and Zosyn - blood cultures negative x2 so far - patient getting dialyzed again today, will place patient on SBT after dialysis evaluate for extubation (2) Pneumonia: Code(s): J18.9 - Pneumonia, unspecified organism Status: Acute Assessment and Plan: see above (3) Pulmonary edema: Qualifiers: Chronicity: acute Qualified Code(s): J81.0 - Acute pulmonary edema Code(s): J81.1 - Chronic pulmonary edema Status: Acute Assessment and Plan: secondary to CHF and end-stage renal dialysis - MUCH IMPROVED - patient was dialyzed on 03/11/2020, 03/12/2020 - patient getting dialyzed today too (4) Suspected 2019 novel coronavirus infection: Code(s): R68.89 - Other general symptoms and signs Status: Acute Assessment and Plan: COVID-19 suspected although atypical presentation - SARS-CoV-2 PCR NEGATIVE - will take patient off Airborne, Droplet and Contact Isolation (5) End stage renal disease: Code(s): N18.6 - End stage renal disease Status: Acute Assessment and Plan: appreciate Nephrology evaluation and recommendations, dialysis per branch mechanic (6) Acute hyperkalemia: Code(s): E87.5 - Hyperkalemia Status: Acute Assessment and Plan: RESOLVED post dialysis (7) Hypertensive urgency: Code(s): I16.0 - Hypertensive urgency Status: Acute Assessment and Plan: patient had similar symptoms when he was admitted at the end of January 2020 - blood pressures have been stable with positive pressure ventilation and sedation. - Patient initially presented with systolic blood pressures of over 200s. - Holding antihypertensives (8) GERD (gastroesophageal reflux disease): Code(s): K21.9 - Gastro-esophageal reflux disease without esophagitis Status: Acute Assessment and Plan: PPI (9) DVT prophylaxis: Code(s): Z29.9 - Encounter for prophylactic measures, unspecified Status: Acute Assessment and Plan: subcu heparin (10) Type 1 diabetes mellitus: Qualifiers: Diabetes mellitus complication status: with kidney complications Diabetes mellitus complication detail: with chronic kidney disease Chronic kidney disease stage: on chronic dialysis Qualified Code(s): E10.22 - Type 1 diabetes mellitus with diabetic chronic kidney disease; N18.6 - End stage renal disease; Z99.2 - Dependence on renal dialysis Code(s): E10.9 - Type 1 diabetes mellitus without complications Status: Chronic Assessment and Plan: sliding scale and Lantus Additional Plan will discuss with family. code status: Full code Total Critical Care Time - 33 minutes Due to a high probability of clinically significant, life threatening deterioration, the patient required my highest level of preparedness to intervene emergently and I personally spent this critical care time directly and personally managing the patient. This critical care time included obtaining a history; examining the patient; pulse oximetry; ordering and review of studies; arranging urgent treatment with development of a management plan; evaluation of patient's response to treatment; frequent reassessment; and discussions with other providers. It was exclusive of separately billable procedures and treating other patients and teaching time. Please see Assessment and
--- NOTE | 2020-03-13 10:41 | PCDIET ---
Nutrition Follow-Up Complete: Nutrition Diagnosis: Inadequate oral intake related to oral intubation as evidenced by NPO status. Nutrition Goal: Patient to meet estimated nutritional needs. Goal not met. Plan for dialysis again today, then possible extubation. If unable to extubate, recommend Nepro tube feeding at goal of 40mL/hr. Over estimated 22 hour infusion daily, this would provide 1584kcal, 71g protein and 639mL free water. Recommend adding 1 packet Pro-Stat (100kcal, 15g protein) daily to ensure protein needs are met. Last recorded weight is 57.7 kg which is decreased. -I/O. Patient had ~2.4L UF yesterday. Bowel Motility: No documented BM yet. 900mL NG output yesterday. Labs Reviewed: Glu (297), BUN (47), Cr (9.2), Na (136) Meds Noted: Albumin, Epogen, Fentanyl, Novolog, Versed, Lantus, Protonix, Zosyn, Vancomycin Additional Notes: Lantus increased. No documented skin breakdown. Nutrition Monitoring and Evaluation: Follow up every 3 days. Follow daily in ICU rounds.
[2020-03-13 11:15] LABS: Glucose Point of Care 123 (65-105)
--- NOTE | 2020-03-13 11:21 | PM.IMPN ---
Progress Note: A&P Assessment and Plan (1) Pneumonia: Qualifiers: Pneumonia type: due to unspecified organism Laterality: bilateral Lung location: unspecified part of lung Qualified Code(s): J18.9 - Pneumonia, unspecified organism Code(s): J18.9 - Pneumonia, unspecified organism Status: Acute Assessment and Plan: Continue empiric vancomycin and Zosyn (2) Acute respiratory failure with hypoxia: Code(s): J96.01 - Acute respiratory failure with hypoxia Status: Acute Assessment and Plan: Seems to be due to flash pulmonary edema related to end-stage renal disease Supportive care wean from ventilator is possible (3) Pulmonary edema: Qualifiers: Chronicity: acute Qualified Code(s): J81.0 - Acute pulmonary edema Code(s): J81.1 - Chronic pulmonary edema Status: Acute Assessment and Plan: The patient has had lasix in the ER tonight. Its unknown exactly how much urine he makes daily if any. He seen by lap maker and will have scheduled dialysis (4) Colitis: Code(s): K52.9 - Noninfective gastroenteritis and colitis, unspecified Status: Acute Assessment and Plan: CT of abdomen showed diffuse wall thickening of the colon, which may be interstitial edema or colitis. Patient on Zosyn will continue to monitor (5) End stage renal disease: Code(s): N18.6 - End stage renal disease Status: Acute Assessment and Plan: Continue nephrology recommendations as the patient is a dialysis patient. (6) Lactic acidosis: Code(s): E87.2 - Acidosis Status: Acute Assessment and Plan: Now resolved. Likely secondary to poor prefusion from HTN event. (7) Suspected 2019 novel coronavirus infection: Code(s): R68.89 - Other general symptoms and signs Status: Acute Assessment and Plan: COVID-19 negative (8) Hypertensive urgency: Code(s): I16.0 - Hypertensive urgency Status: Acute Assessment and Plan: Now resolved and appears to have been secondary to acute respiratory failure. Monitor blood pressure closely. (9) Type 1 diabetes mellitus: Qualifiers: Diabetes mellitus complication status: with kidney complications Diabetes mellitus complication detail: with chronic kidney disease Chronic kidney disease stage: on chronic dialysis Qualified Code(s): E10.22 - Type 1 diabetes mellitus with diabetic chronic kidney disease; N18.6 - End stage renal disease; Z99.2 - Dependence on renal dialysis Code(s): E10.9 - Type 1 diabetes mellitus without complications Status: Chronic Assessment and Plan: Accuchecks, SSI Coverage, Hypoglycemic protocol. (10) HLD (hyperlipidemia): Qualifiers: Hyperlipidemia type: unspecified Qualified Code(s): E78.5 - Hyperlipidemia, unspecified Code(s): E78.5 - Hyperlipidemia, unspecified Status: Chronic Assessment and Plan: resume statin therapy when appropriate. Subjective Date/time seen: 03/13/20 11:21 Interval history: Admitted to ICU with flash pulmonary edema and respiratory failure 03/13 sedated and ventilated Review of Systems Review of Systems: ROS unobtainable: Yes unobtainable due to medical condition Exam Narrative: Exam Narrative: HEENT: Pupils small and sluggishly reactive, sclerae nonicteric, pharyngeal mucosa pink and intact NECK: No JVD CHEST: Coarse breath sounds HEART: NL S1/S2, regular, no murmur ABDOMEN: BS+, soft, nontender, no mass, no bruits EXTREMITIES: No cyanosis, edema, or clubbing NEUROLOGIC: CN intact and symmetric to inspection. MUSCULOSKELETAL: Tone symmetric PSYCH: Sedated and ventilated. Objective Data Vital Signs Vital Signs: Vital Signs - 24 hr 03/12/20 12:00 03/12/20 14:00 03/12/20 14:11 Temperature 96.8 F L Pulse Rate 81 87 89 Respiratory Rate 16 16 Blood Pressure 116/55 L 136/73 Pulse Oximetry 100 100 100 03/12/20
[2020-03-13] MEDS: CLOPIDOGREL BISULFATE 75 MG TABLET PO (11:36)
[2020-03-13] MEDS: PANTOPRAZOLE SODIUM IV 40 MG VIAL IV PUSH (11:36)
[2020-03-13] MEDS: INSULIN GLARGINE (*BKC) 100 UNITS/ML 16 UNITS SUB-Q (11:37)
--- NOTE | 2020-03-13 14:22 | PM.PNNEP ---
Progress Note: A&P Assessment and Plan (1) End stage renal disease: Code(s): N18.6 - End stage renal disease Status: Acute Assessment and Plan: HD today and continue M/W/F schedule follow electrolytes, volume status, and clearance (2) Acute respiratory failure with hypoxia: Code(s): J96.01 - Acute respiratory failure with hypoxia Status: Acute Assessment and Plan: suspect due to a combination of pulmonary edema and possibly pneumonia on mechanical ventilation wean as tolerated (3) Pneumonia: Code(s): J18.9 - Pneumonia, unspecified organism Status: Acute Assessment and Plan: suspected on admission follow culutres on antibiotics (4) Pulmonary edema: Qualifiers: Chronicity: acute Qualified Code(s): J81.0 - Acute pulmonary edema Code(s): J81.1 - Chronic pulmonary edema Status: Acute Assessment and Plan: as evidence by CXR findings on admission precipitated by hypertensive urgency(?) fluid removal with dialysis and ultrafiltration (5) Hypertensive urgency: Code(s): I16.0 - Hypertensive urgency Status: Acute Assessment and Plan: BP doing significantly better follow trend of hemodynamics Will continue to follow. Subjective Date/time seen: 03/13/20 11:22 Tolerating dialysis at the time of my visit (seen on HD at 11:00AM); did not tolerate fluid removal well; remains on mechanical ventilation and in no distress. Exam Narrative: Exam Narrative: General: WD/WN male in NAD; intubated Heart: normal S1 and S2; no rub Lungs: clear anteriorly but decreased at bases Abdomen: soft, nontender, nondistended, positive bowel sounds Extremities: no cyanosis or clubbing; no edema Skin: warm and dry Objective Data Vital Signs Vital Signs: Vital Signs Temp Pulse Resp BP Pulse Ox 03/13/20 14:00 87 12 166/74 H 95 03/13/20 12:04 82 99 03/13/20 12:00 35.5 C L 78 16 164/66 H 96 03/13/20 11:30 36.3 C L 107 H 25 H 99/58 L 99 03/13/20 11:13 105 H 98/57 L 03/13/20 10:45 99 99/56 L 03/13/20 10:30 99 100/51 L 03/13/20 10:15 104 H 88/59 L 03/13/20 10:00 105 H 16 89/55 L 96 03/13/20 09:45 108 H 103/58 L 03/13/20 09:30 109 H 98/58 L 03/13/20 09:15 120 H 101/59 L 03/13/20 09:00 122 H 89/64 L 03/13/20 08:46 119 H 110/82 03/13/20 08:30 113 H 113/69 03/13/20 08:10 110 H 110/68 03/13/20 08:00 36.2 C L 99 16 110/65 100 03/13/20 07:47 99 100 03/13/20 06:00 97 16 108/58 L 100 03/13/20 05:15 94 100 03/13/20 04:00 35.8 C L 88 16 150/69 H 100 03/13/20 02:00 87 16 128/62 100 03/13/20 00:00 35.7 C L 82 16 150/65 H 100 03/12/20 23:13 84 100 03/12/20 22:00 85 16 126/59 L 100 03/12/20 20:14 37.0 C 57 L 20 110/74 03/12/20 20:00 35.2 C L 83 16 117/58 L 100 03/12/20 18:00 75 16 104/52 L 100 03/12/20 17:16 78 116/61 03/12/20 17:15 100 03/12/20 17:01 72 109/57 L 03/12/20 16:45 73 104/58 L 03/12/20 16:34 75 114/58 L 03/12/20 16:16 73 115/57 L 03/12/20 16:01 83 103/56 L 03/12/20 16:00 35.8 C L 82 16 145/64 H 100 03/12/20 15:14 36.4 C 6 L 03/12/20 14:57 63 92/50 L 03/12/20 14:45 36.4 C 67 20 127/80 Intake/Output Intake/Output: Intake & Output 03/10/20 03/11/20 03/12/20 03/13/20 23:59 23:59 23:59 23:59 Intake Total 1080 750 150 Output Total 2470 7432 800 Balance -2005 -4968 -051 Meds/Results Medications: Active Medications Generic Name Dose Route Start Last Admin Trade Name Freq PRN Reason Stop Dose Admin Alteplase, Recombinant 2 mg 03/12/20 02:55 03/12/20 03:21 Cathflo Activase IV PUSH 2 mg ONCE PRN Administration Line Occlusion Aspirin 325 mg 03/12/20 08:00 03/13/20 11:16 Aspirin PO Not Given DAILY@0800 [facility] Clopidogrel Bisulfate 75 mg 04
[2020-03-13 17:49] LABS: Glucose Point of Care 236 (65-105)
[2020-03-13 18:53] LABS: Vancomycin Random 15.4 ug/mL (10-20)
[2020-03-13] MEDS: HEPARIN SODIUM 5,000 UNITS/ML VIAL 5000 UNITS SUB-Q (21:13)
[2020-03-13 22:53] LABS: Glucose Point of Care 311 (65-105)
[2020-03-14] VITALS (20 sets, daily range): BP systolic 107–167; BP diastolic 53–84; PULSE 97–110; RESP 11–20; TEMP 36.5–37.1; O2SAT 97–100
[2020-03-14 05:10] LABS: Base Excess ABG 1.8 mEq/l (+/-2.0); Carboxyhemoglobin 0.1 % THb (0-2.0); Device VENTILATOR; Fractional Inspired Oxygen 30 %; HCO3 ABG 25.8 mEq/l (22.0-26.0); Methemoglobin ABG 0.3 %THb (0-1.5); Oxygen Content ABG 17.4 %vol (16.0-22.0); Oxygen Saturation ABG 97.5 % (95.0-100.0); Oxyhemoglobin 96.2 % THb (90.0-100.0); PCO2 ABG 38.3 mmHg (35.0-45.0); PO2 ABG 93.9 mmHg (80.0-100.0); PO2 FiO2 Ratio Arterial Blood 3.13 %; Reduced Hemoglobin 3.4 %THb (0-5.0); Site Drawn RIGHT BRACHIAL; Total Hemoglobin 12.8 g/dL (12.0-18.0); pH ABG 7.446 (7.350-7.450)
[2020-03-14 05:11] LABS: Arterial Blood Gas Minute Volume 7 LPM; Arterial Blood Gas PEEP 5 cmH2O; Arterial Blood Gas Vent Mode ASV
[2020-03-14 05:48] LABS: Glucose Point of Care 259 (65-105)
[2020-03-14] MEDS: INSULIN ASPART (*BKC) 100 UNITS/ML SUB-Q ×2 (05:48→13:05)
[2020-03-14 05:49] LABS: Basophils Absolute Auto 0.1 K/mm3 (0.0-0.1); Basophils Percent Auto 0.3 % (0.2-1.2); Hematocrit 34.8 % (42.0-52.0); Immature Granulocyte Percent A 0.6 % (0-0.5); Lymphocytes Absolute Auto 0.73 K/mm3 (0.9-3.2); Lymphocytes Percent Auto 4.7 % (18.3-44.2); Mean Corpuscular HGB Conc 31.6 g/dl (32-36); Mean Corpuscular Hemoglobin 31.7 pg (26-34); Mean Corpuscular Volume 100.3 fl (80-100); Mean Platelet Volume 9.6 fl (7.4-10.4); Monocytes Absolute Auto 1.8 K/mm3 (0.1-0.6); Monocytes Percent Auto 11.2 % (2.6-8.5); Neutrophils Percent Auto 83.2 % (45.5-73.1); Nucleated Red Blood Cells Perc 0.2 % (0.0-0.2); Platelet Count Result 433 k/mm3 (150-375); Red Blood Count 3.47 M/mm3 (4.6-6.20); Red Cell Distribution Width 16.4 % (11.5-14.5); White Blood Count 15.6 K/mm3 (4.5-10.0)
[2020-03-14 06:16] LABS: Alanine Aminotransferase 23 U/L (4-50); Albumin Level 4.6 g/dL (3.5-5.1); Alkaline Phosphatase 99 U/L (38-126); Aspartate Amino Transferase 39 U/L (17-59); Bilirubin,Total 0.7 mg/dL (0.2-1.3); Blood Urea Nitrogen 41 mg/dL (9-20); Calcium 10.5 mg/dL (8.4-10.2); Carbon Dioxide 31 mmol/L (22-30); Chloride 85 mmol/L (98-107); Estimated CRCL calculation 8 ml/min; Estimated Glomerular Filt Rate 7; Glucose 287 mg/dL (75-110); Lactate Dehydrogenase 394 U/L (313-618); Magnesium 2.5 mg/dL (1.6-2.3); Potassium 4.8 mmol/L (3.4-5.0); Sodium 138 mmol/L (137-145)
[2020-03-14 06:21] LABS: D Dimer 1.13 ug/mL (<0.48)
[2020-03-14 08:20] LABS: Ferritin > 2000.00 ng/mL (11.1-264)
[2020-03-14] MEDS: ASPIRIN 325 MG TABLET PO (08:39)
[2020-03-14] MEDS: PANTOPRAZOLE SODIUM IV 40 MG VIAL IV PUSH (08:39)
[2020-03-14] MEDS: HEPARIN SODIUM 5,000 UNITS/ML VIAL 5000 UNITS SUB-Q ×2 (08:39→21:18)
[2020-03-14] MEDS: CLOPIDOGREL BISULFATE 75 MG TABLET PO (08:39)
[2020-03-14] MEDS: INSULIN GLARGINE (*BKC) 100 UNITS/ML 16 UNITS SUB-Q (08:40)
[2020-03-14 09:03] LABS: CRP 31.9 mg/dL (<1.0)
[2020-03-14 10:23] LABS: Alveolar/Arterial O2 Gradient 137.2 mmHg; Base Excess ABG 4.9 mEq/l (+/-2.0); Carboxyhemoglobin 0.1 % THb (0-2.0); Device VENTILATOR; Fractional Inspired Oxygen 30 %; HCO3 ABG 29.7 mEq/l (22.0-26.0); Methemoglobin ABG 0.2 %THb (0-1.5); Modified Allen's Test Pass; Oxygen Content ABG 16.8 %vol (16.0-22.0); Oxygen Saturation ABG 97.1 % (95.0-100.0); Oxyhemoglobin 95.7 % THb (90.0-100.0); PO2 ABG 90.9 mmHg (80.0-100.0); PO2 FiO2 Ratio Arterial Blood 3.03 %; Site Drawn RIGHT RADIAL; Total Hemoglobin 12.4 g/dL (12.0-18.0); pH ABG 7.438 (7.350-7.450)
[2020-03-14 10:24] LABS: Arterial Blood Gas PEEP 5 cmH2O; Arterial Blood Gas Pressure Support 8 cmH2O; Arterial Blood Gas Vent Mode SPONTANEOUS
--- NOTE | 2020-03-14 10:43 | PM.PNNEP ---
Progress Note: A&P Assessment and Plan (1) End stage renal disease: Code(s): N18.6 - End stage renal disease Status: Acute Assessment and Plan: HD yesterday and continue M/W/F schedule follow electrolytes, volume status, and clearance (2) Acute respiratory failure with hypoxia: Code(s): J96.01 - Acute respiratory failure with hypoxia Status: Acute Assessment and Plan: suspect due to a combination of pulmonary edema and possibly pneumonia on mechanical ventilation wean as tolerated (3) Pneumonia: Qualifiers: Laterality: bilateral Lung location: unspecified part of lung Pneumonia type: due to unspecified organism Qualified Code(s): J18.9 - Pneumonia, unspecified organism Code(s): J18.9 - Pneumonia, unspecified organism Status: Acute Assessment and Plan: suspected on admission follow culutres on antibiotics (4) Pulmonary edema: Qualifiers: Chronicity: acute Qualified Code(s): J81.0 - Acute pulmonary edema Code(s): J81.1 - Chronic pulmonary edema Status: Acute Assessment and Plan: as evidence by CXR findings on admission precipitated by hypertensive urgency(?) fluid removal with dialysis and ultrafiltration (5) Hypertensive urgency: Code(s): I16.0 - Hypertensive urgency Status: Acute Assessment and Plan: BP doing significantly better follow trend of hemodynamics Will continue to follow. Subjective Date/time seen: 03/14/20 10:43 Tolerated dialysis yesterday although fluid removal limited by hemodynamics; possible extubation later this AM; no new issues or problems overnight or earlier this AM; remains hemodynamically stable. Exam Narrative: Exam Narrative: General: WD/WN male in NAD; intubated Heart: normal S1 and S2; no rub Lungs: clear anteriorly but decreased at bases Abdomen: soft, nontender, nondistended, positive bowel sounds Extremities: no cyanosis or clubbing; no edema Skin: warm and intact Objective Data Vital Signs Vital Signs: Vital Signs Temp Pulse Resp BP Pulse Ox 03/14/20 10:00 108 H 15 152/76 H 100 03/14/20 08:57 105 H 100 03/14/20 08:55 106 H 100 03/14/20 08:30 104 H 100 03/14/20 08:00 36.9 C 109 H 20 138/84 100 03/14/20 06:00 110 H 03/14/20 05:50 104 H 12 124/73 99 03/14/20 04:50 106 H 100 03/14/20 04:00 36.8 C 105 H 13 124/73 100 03/14/20 02:05 99 100 03/14/20 02:00 106 H 12 107/53 L 100 03/14/20 00:00 37.1 C 107 H 11 L 129/65 98 03/13/20 23:13 109 H 100 03/13/20 22:00 117 H 11 L 145/70 H 100 03/13/20 20:05 114 H 98 03/13/20 20:00 36.9 C 113 H 11 L 146/71 H 100 03/13/20 18:00 107 H 10 L 180/76 H 100 03/13/20 16:17 108 H 100 03/13/20 16:00 36.8 C 96 12 183/81 H 100 03/13/20 14:00 87 12 166/74 H 95 03/13/20 12:04 82 99 03/13/20 12:00 35.5 C L 78 16 164/66 H 96 03/13/20 11:30 36.3 C L 107 H 25 H 99/58 L 99 03/13/20 11:13 105 H 98/57 L 03/13/20 10:45 99 99/56 L Intake/Output Intake/Output: Intake & Output 03/11/20 03/12/20 03/13/20 03/14/20 23:59 23:59 23:59 23:59 Intake Total 1080 750 260 86 Output Total 2950 5647 1100 350 Balance -1870 -2607 -840 -264 Meds/Results Medications: Active Medications Generic Name Dose Route Start Last Admin Trade Name Freq PRN Reason Stop Dose Admin Alteplase, Recombinant 2 mg 03/12/20 02:55 03/12/20 03:21 Cathflo Activase IV PUSH 2 mg ONCE PRN Administration Line Occlusion Aspirin 325 mg 03/12/20 08:00 03/14/20 08:39 Aspirin PO 325 mg DAILY@0800 MARTHA Administration Clopidogrel Bisulfate 75 mg 03/12/20 09:00 03/14/20 08:39 Plavix PO 75 mg QAM MRATHA Administration Dextrose 12.5 gm 03/11/20 03:16 Dextrose 50% Syringe IV PUSH PRN PRN Hypoglycemia Protocol Glucagon 1 mg 03/11/20 03:16
--- NOTE | 2020-03-14 10:46 | PM.IMPN ---
Progress Note: A&P Assessment and Plan (1) Pneumonia: Qualifiers: Pneumonia type: due to unspecified organism Laterality: bilateral Lung location: unspecified part of lung Qualified Code(s): J18.9 - Pneumonia, unspecified organism Code(s): J18.9 - Pneumonia, unspecified organism Status: Acute Assessment and Plan: Continue empiric vancomycin and Zosyn (2) Acute respiratory failure with hypoxia: Code(s): J96.01 - Acute respiratory failure with hypoxia Status: Acute Assessment and Plan: Seems to be due to flash pulmonary edema related to end-stage renal disease 5/2 extubate this morning (3) Pulmonary edema: Qualifiers: Chronicity: acute Qualified Code(s): J81.0 - Acute pulmonary edema Code(s): J81.1 - Chronic pulmonary edema Status: Acute Assessment and Plan: Continue with dialysis per Nephrology (4) Colitis: Code(s): K52.9 - Noninfective gastroenteritis and colitis, unspecified Status: Acute Assessment and Plan: CT of abdomen showed diffuse wall thickening of the colon, which may be interstitial edema or colitis. Clinically more likely edema (5) End stage renal disease: Code(s): N18.6 - End stage renal disease Status: Acute Assessment and Plan: Continue nephrology recommendations as the patient is a dialysis patient. (6) Lactic acidosis: Code(s): E87.2 - Acidosis Status: Acute Assessment and Plan: Now resolved. Likely secondary to poor prefusion from HTN event. (7) Suspected 2019 novel coronavirus infection: Code(s): R68.89 - Other general symptoms and signs Status: Acute Assessment and Plan: COVID-19 negative (8) Hypertensive urgency: Code(s): I16.0 - Hypertensive urgency Status: Acute Assessment and Plan: Now resolved and appears to have been secondary to acute respiratory failure. Monitor blood pressure closely. (9) Type 1 diabetes mellitus: Qualifiers: Diabetes mellitus complication status: with kidney complications Diabetes mellitus complication detail: with chronic kidney disease Chronic kidney disease stage: on chronic dialysis Qualified Code(s): E10.22 - Type 1 diabetes mellitus with diabetic chronic kidney disease; N18.6 - End stage renal disease; Z99.2 - Dependence on renal dialysis Code(s): E10.9 - Type 1 diabetes mellitus without complications Status: Chronic Assessment and Plan: Accuchecks, SSI Coverage, Hypoglycemic protocol. (10) HLD (hyperlipidemia): Qualifiers: Hyperlipidemia type: unspecified Qualified Code(s): E78.5 - Hyperlipidemia, unspecified Code(s): E78.5 - Hyperlipidemia, unspecified Status: Chronic Assessment and Plan: resume statin therapy when appropriate. Subjective Date/time seen: 03/14/20 10:46 Interval history: Admitted to ICU with flash pulmonary edema and respiratory failure 5/2 ventilated but awake Review of Systems Review of Systems: ROS unobtainable: Yes unobtainable due to endotracheal tube Exam Narrative: Exam Narrative: HEENT: Pupils small and sluggishly reactive, sclerae nonicteric, pharyngeal mucosa pink and intact NECK: No JVD CHEST: Clear to auscultation anteriorly HEART: NL S1/S2, regular, no murmur ABDOMEN: BS+, soft, nontender, no mass, no bruits EXTREMITIES: No cyanosis, edema, or clubbing NEUROLOGIC: CN intact and symmetric to inspection. MUSCULOSKELETAL: Tone symmetric PSYCH: Drowsy but arouses easily and follow simple commands Objective Data Vital Signs Vital Signs: Vital Signs - 24 hr 03/13/20 11:13 03/13/20 11:30 03/13/20 12:00 Temperature 97.4 F L 96 F L Pulse Rate 105 H 107 H 78 Respiratory Rate 25 H 16 Blood Pressure 98/57 L 99/58 L 164/66 H Pulse Oximetry 99 96 03/13/20 12:04 03/13/20 14:00 03/13/20 16:00 Temperature 98.3 F Pulse Rate 82 87 96 Respiratory Rate 1
--- NOTE | 2020-03-14 11:03 | WPDINTPN ---
Progress Note: A&P Assessment and Plan (1) Acute respiratory failure with hypoxia: Code(s): J96.01 - Acute respiratory failure with hypoxia Status: Acute Assessment and Plan: Acute Respiratory failure secondary to pulmonary edema and possible pneumonia - Continue full mechanical ventilation support to prevent hypoxemia/hypercarbia and end organ damage. - ABG and PCXR reviewed - continue Low tidal volume ventilation strategy to prevent volutrauma - Off all sedation - Empiric vancomycin and Zosyn - blood cultures negative x2 so far - patient more awake since discontinuation of his sedation yesterday. Will place patient on spontaneous breathing trial and evaluate for extubation. (2) Pneumonia: Qualifiers: Laterality: bilateral Lung location: unspecified part of lung Pneumonia type: due to unspecified organism Qualified Code(s): J18.9 - Pneumonia, unspecified organism Code(s): J18.9 - Pneumonia, unspecified organism Status: Acute Assessment and Plan: see above (3) Pulmonary edema: Qualifiers: Chronicity: acute Qualified Code(s): J81.0 - Acute pulmonary edema Code(s): J81.1 - Chronic pulmonary edema Status: Acute Assessment and Plan: secondary to CHF and end-stage renal dialysis - MUCH IMPROVED - patient was dialyzed on 03/11/2020, 03/12/2020 - patient getting dialyzed today too (4) Suspected 2019 novel coronavirus infection: Code(s): R68.89 - Other general symptoms and signs Status: Acute Assessment and Plan: COVID-19 suspected although atypical presentation - SARS-CoV-2 PCR NEGATIVE - will take patient off Airborne, Droplet and Contact Isolation (5) End stage renal disease: Code(s): N18.6 - End stage renal disease Status: Acute Assessment and Plan: appreciate Nephrology evaluation and recommendations, dialysis per electronic bench technician (6) Acute hyperkalemia: Code(s): E87.5 - Hyperkalemia Status: Acute Assessment and Plan: RESOLVED post dialysis (7) Hypertensive urgency: Code(s): I16.0 - Hypertensive urgency Status: Acute Assessment and Plan: patient had similar symptoms when he was admitted at the end of January 2020 - blood pressures have been stable with positive pressure ventilation and sedation. - Patient initially presented with systolic blood pressures of over 200s. - Holding antihypertensives (8) GERD (gastroesophageal reflux disease): Code(s): K21.9 - Gastro-esophageal reflux disease without esophagitis Status: Acute Assessment and Plan: PPI (9) DVT prophylaxis: Code(s): Z29.9 - Encounter for prophylactic measures, unspecified Status: Acute Assessment and Plan: subcu heparin (10) Type 1 diabetes mellitus: Qualifiers: Chronic kidney disease stage: on chronic dialysis Diabetes mellitus complication detail: with chronic kidney disease Diabetes mellitus complication status: with kidney complications Qualified Code(s): E10.22 - Type 1 diabetes mellitus with diabetic chronic kidney disease; N18.6 - End stage renal disease; Z99.2 - Dependence on renal dialysis Code(s): E10.9 - Type 1 diabetes mellitus without complications Status: Chronic Assessment and Plan: sliding scale and Lantus Additional Plan patient placed on SBT and will evaluate for extubation code status: Full code Total Critical Care Time - 32 minutes Due to a high probability of clinically significant, life threatening deterioration, the patient required my highest level of preparedness to intervene emergently and I personally spent this critical care time directly and personally managing the patient. This critical care time included obtaining a history; examining the patient; pulse oximetry; ordering and review of studies; arranging urgent treatment with development of a management p
[2020-03-14 13:01] LABS: Glucose Point of Care 330 (65-105)
[2020-03-14 17:52] LABS: Glucose Point of Care 166 (65-105)
[2020-03-14 23:22] LABS: Glucose Point of Care 162 (65-105)
[2020-03-15] VITALS (7 sets, daily range): BP systolic 136–170; BP diastolic 62–90; PULSE 92–122; RESP 16–18; TEMP 36.3–36.4; O2SAT 96–100
[2020-03-15 06:29] LABS: Glucose Point of Care 200 (65-105)
[2020-03-15 06:36] LABS: Basophils Absolute Auto 0.1 K/mm3 (0.0-0.1); Basophils Percent Auto 0.4 % (0.2-1.2); Eosinophils Percent Auto 0.2 % (0-4.4); Hemoglobin 11.9 g/dL (14.0-18.0); Immature Granulocyte Absolute 0.09 K/mm3 (0.00-0.031); Immature Granulocyte Percent A 0.6 % (0-0.5); Lymphocytes Percent Auto 9.9 % (18.3-44.2); Mean Corpuscular HGB Conc 32.2 g/dl (32-36); Mean Corpuscular Hemoglobin 31.6 pg (26-34); Mean Corpuscular Volume 98.1 fl (80-100); Mean Platelet Volume 9.6 fl (7.4-10.4); Monocytes Absolute Auto 1.7 K/mm3 (0.1-0.6); Monocytes Percent Auto 10.2 % (2.6-8.5); Neutrophils Absolute Auto 12.7 K/mm3 (1.3-6.7); Neutrophils Percent Auto 78.7 % (45.5-73.1); Nucleated Red Blood Cells Perc 0.2 % (0.0-0.2); Platelet Count Result 499 k/mm3 (150-375); Red Blood Count 3.77 M/mm3 (4.6-6.20); Red Cell Distribution Width 16.4 % (11.5-14.5); White Blood Count 16.2 K/mm3 (4.5-10.0)
[2020-03-15 06:54] LABS: Magnesium 2.8 mg/dL (1.6-2.3)
[2020-03-15 07:00] LABS: Alanine Aminotransferase 25 U/L (4-50); Albumin Level 4.5 g/dL (3.5-5.1); Alkaline Phosphatase 95 U/L (38-126); Aspartate Amino Transferase 36 U/L (17-59); Bilirubin,Total 0.6 mg/dL (0.2-1.3); Blood Urea Nitrogen 74 mg/dL (9-20); Calcium 10.3 mg/dL (8.4-10.2); Carbon Dioxide 34 mmol/L (22-30); Chloride 83 mmol/L (98-107); Estimated CRCL calculation 6 ml/min; Estimated Glomerular Filt Rate 5; Glucose 215 mg/dL (75-110); Lactate Dehydrogenase 389 U/L (313-618); Potassium 4.5 mmol/L (3.4-5.0); Sodium 139 mmol/L (137-145)
[2020-03-15 07:36] LABS: Glucose Point of Care 197 (65-105)
[2020-03-15 07:40] LABS: CRP 36.9 mg/dL (<1.0)
[2020-03-15 08:50] LABS: Ferritin > 2000.00 ng/mL (11.1-264)
[2020-03-15] MEDS: CYANOCOBALAMIN 1,000 MCG TABLET 1000 MCG PO (09:25)
[2020-03-15] MEDS: CHOLECALCIFEROL 1,000 UNIT TABLET 4000 UNITS PO (09:25)
[2020-03-15] MEDS: carvediloL 25 MG TABLET 50 MG PO (09:25)
[2020-03-15] MEDS: VITAMIN B CMPLX/VIT C/FOLIC AC 1 CAPSULE 1 CAP PO (09:25)
[2020-03-15] MEDS: FUROSEMIDE 80 MG TABLET PO (09:25)
[2020-03-15] MEDS: TAMSULOSIN HCL 0.4 MG CAPSULE PO (09:26)
[2020-03-15] MEDS: CLONIDINE HCL 0.2 MG TABLET 0.4 MG PO (09:26)
[2020-03-15] MEDS: SERTRALINE HCL 25 MG TABLET PO (09:26)
[2020-03-15] MEDS: ASPIRIN 81 MG CHEWABLE TABLET PO (09:26)
[2020-03-15] MEDS: CLOPIDOGREL BISULFATE 75 MG TABLET PO (09:27)
[2020-03-15] MEDS: PANTOPRAZOLE SODIUM IV 40 MG VIAL IV PUSH (09:27)
[2020-03-15] MEDS: INSULIN GLARGINE (*BKC) 100 UNITS/ML 16 UNITS SUB-Q (09:27)
[2020-03-15] MEDS: HEPARIN SODIUM 5,000 UNITS/ML VIAL 5000 UNITS SUB-Q (09:28)
--- NOTE | 2020-03-15 09:28 | PM.DS ---
DS: Diagnosis Admitting Diagnosis Admitting Diagnosis: Hypertensive heart and chronic kidney disease with heart failure and with stage 5 chronic kidney disease, or end stage renal disease Discharge Diagnosis (1) Pneumonia: Qualifiers: Laterality: bilateral Lung location: unspecified part of lung Pneumonia type: due to unspecified organism Qualified Code(s): J18.9 - Pneumonia, unspecified organism Code(s): J18.9 - Pneumonia, unspecified organism Status: Acute Assessment and Plan: 5/ d/c empiric vancomycin and Zosyn (2) Acute respiratory failure with hypoxia: Code(s): J96.01 - Acute respiratory failure with hypoxia Status: Acute Assessment and Plan: Seems to be due to flash pulmonary edema related to end-stage renal disease / extubated (3) Pulmonary edema: Qualifiers: Chronicity: acute Qualified Code(s): J81.0 - Acute pulmonary edema Code(s): J81.1 - Chronic pulmonary edema Status: Acute Assessment and Plan: Continue with dialysis per Nephrology (4) Colitis: Code(s): K52.9 - Noninfective gastroenteritis and colitis, unspecified Status: Acute Assessment and Plan: CT of abdomen showed diffuse wall thickening of the colon, which may be interstitial edema or colitis. Clinically more likely edema (5) End stage renal disease: Code(s): N18.6 - End stage renal disease Status: Acute Assessment and Plan: Continue nephrology recommendations as the patient is a dialysis patient Consider QIW (6) Lactic acidosis: Code(s): E87.2 - Acidosis Status: Acute Assessment and Plan: Now resolved. Likely secondary to poor prefusion from HTN event. (7) Suspected 2019 novel coronavirus infection: Code(s): R68.89 - Other general symptoms and signs Status: Acute Assessment and Plan: COVID-19 negative (8) Hypertensive urgency: Code(s): I16.0 - Hypertensive urgency Status: Acute Assessment and Plan: Now resolved and appears to have been secondary to acute respiratory failure. Monitor blood pressure closely. (9) Type 1 diabetes mellitus: Qualifiers: Chronic kidney disease stage: on chronic dialysis Diabetes mellitus complication detail: with chronic kidney disease Diabetes mellitus complication status: with kidney complications Qualified Code(s): E10.22 - Type 1 diabetes mellitus with diabetic chronic kidney disease; N18.6 - End stage renal disease; Z99.2 - Dependence on renal dialysis Code(s): E10.9 - Type 1 diabetes mellitus without complications Status: Chronic Assessment and Plan: Accuchecks, SSI Coverage, Hypoglycemic protocol. Resume home regimen at discharge (10) HLD (hyperlipidemia): Qualifiers: Hyperlipidemia type: unspecified Qualified Code(s): E78.5 - Hyperlipidemia, unspecified Code(s): E78.5 - Hyperlipidemia, unspecified Status: Chronic Assessment and Plan: resume statin DS: Summary Hospital Course Reason for hospitalization: Acute respiratory failure Hospital Course: Blayne was admitted with acute respiratory failure. Found to be in pulmonary edema with possible pneumonia. Tested negative for COVID-19. Empiric vancomycin and Zosyn. Treated with furosemide and dialysis. Was able to extubate the day prior to discharge. Is up about in his usual fashion given his a BKA. Alert oriented person place and time. Anxious to go home on day of discharge, 03/15. Time Spent with Patient Time attestation: Total time spent providing and/or coordinating discharge services: Exam Narrative: Exam Narrative: HEENT: PERRL, sclerae nonicteric, pharyngeal mucosa pink and intact NECK: No JVD CHEST: Clear to auscultation, NL effort HEART: NL S1/S2, regular, no murmur ABDOMEN: BS+, soft, nontender, no mass, no bruits EXTREMITIES: No cyanosis, edema, or clubbing NEUROLOGIC: CN intact and
--- NOTE | 2020-03-15 09:34 | PM.PNNEP ---
Progress Note: A&P Assessment and Plan (1) End stage renal disease: Code(s): N18.6 - End stage renal disease Status: Acute Assessment and Plan: HD tomorrow and continue M/W/F schedule follow electrolytes, volume status, and clearance (2) Acute respiratory failure with hypoxia: Code(s): J96.01 - Acute respiratory failure with hypoxia Status: Acute Assessment and Plan: resolved -- extubated yesterday suspect due to a combination of pulmonary edema and possibly pneumonia continue supportive therapy (3) Pneumonia: Qualifiers: Laterality: bilateral Lung location: unspecified part of lung Pneumonia type: due to unspecified organism Qualified Code(s): J18.9 - Pneumonia, unspecified organism Code(s): J18.9 - Pneumonia, unspecified organism Status: Acute Assessment and Plan: suspected on admission follow cultures (negative to date) on antibiotics (4) Pulmonary edema: Qualifiers: Chronicity: acute Qualified Code(s): J81.0 - Acute pulmonary edema Code(s): J81.1 - Chronic pulmonary edema Status: Acute Assessment and Plan: resolved as evidence by CXR findings on admission precipitated by hypertensive urgency(?) fluid removal with dialysis and ultrafiltration (5) Hypertensive urgency: Code(s): I16.0 - Hypertensive urgency Status: Acute Assessment and Plan: BP doing significantly better follow trend of hemodynamics Will continue to follow. Subjective Date/time seen: 03/15/20 09:34 Successfully extubated yesterday; respiratory status/breathing appears stable; no issues or problems overnight or earlier this AM; appears in no apparent distress at this time. Exam Narrative: Exam Narrative: General: WD/WN male in NAD; intubated Heart: normal S1 and S2; no rub Lungs: clear anteriorly Abdomen: soft, nontender, nondistended, positive bowel sounds Extremities: no cyanosis or clubbing; no edema Skin: no rash or nodules Objective Data Vital Signs Vital Signs: Vital Signs Temp Pulse Resp BP Pulse Ox 03/15/20 09:25 122 H 03/15/20 08:00 36.4 C L 118 H 18 155/90 H 100 03/15/20 07:56 100 03/15/20 06:00 94 16 170/77 H 100 03/15/20 04:00 36.3 C L 101 H 18 136/62 100 03/15/20 01:58 97 169/69 H 96 05/03/20 00:00 92 03/14/20 23:53 36.8 C 99 17 154/71 H 99 03/14/20 22:00 97 130/59 L 99 03/14/20 21:15 103 H 16 97 03/14/20 20:00 36.5 C 100 14 167/60 H 98 03/14/20 17:47 103 H 18 166/71 H 97 03/14/20 16:00 36.9 C 102 H 16 159/78 H 98 03/14/20 14:00 101 H 18 166/76 H 98 03/14/20 12:00 36.6 C 107 H 19 157/79 H 97 03/14/20 10:00 108 H 15 152/76 H 100 Intake/Output Intake/Output: Intake & Output 03/12/20 03/13/20 03/14/20 03/15/20 23:59 23:59 23:59 23:59 Intake Total 750 260 306 940 Output Total 3357 1100 350 0 Balance -2607 -840 -44 940 Meds/Results Medications: Active Medications Generic Name Dose Route Start Last Admin Trade Name Freq PRN Reason Stop Dose Admin Alteplase, Recombinant 2 mg 03/12/20 02:55 03/12/20 03:21 Cathflo Activase IV PUSH 2 mg ONCE PRN Administration Line Occlusion Aspirin 81 mg 03/15/20 09:00 03/15/20 09:26 Aspirin Chewable PO 81 mg DAILY MARTHA Administration Atorvastatin Calcium 40 mg 03/15/20 21:00 Lipitor PO HS [facility] Calcitriol 0.25 mcg 03/16/20 09:00 Rocaltrol PO [id number] [facility] Carvedilol 50 mg 03/15/20 09:00 03/15/20 09:25 Coreg PO 50 mg Q12HR MARTHA Administration Clonidine HCl 0.4 mg 03/15/20 09:00 03/15/20 09:26 Catapres PO 0.4 mg TID MARTHA Administration Clopidogrel Bisulfate 75 mg 03/12/20 09:00 03/15/20 09:27 Plavix PO 75 mg QAM [facility] Administration Cyanocobalamin 1,000 mcg 03/15/20 09:00 03/15/20 09:25 Vitamin B-12 Tab PO 1,000 mcg DAILY [facility] Admini
--- NOTE | 2020-03-15 09:55 | WPDINTPN ---
Progress Note: A&P Assessment and Plan (1) Acute respiratory failure with hypoxia: Code(s): J96.01 - Acute respiratory failure with hypoxia Status: Acute Assessment and Plan: Acute Respiratory failure secondary to pulmonary edema and possible pneumonia - patient was successfully extubated on 03/14/2020. - Currently on room air - sitting up in chair with increased activity - continue vanc and Zosyn - blood cultures negative x2 so far (2) Pneumonia: Qualifiers: Pneumonia type: due to unspecified organism Laterality: bilateral Lung location: unspecified part of lung Qualified Code(s): J18.9 - Pneumonia, unspecified organism Code(s): J18.9 - Pneumonia, unspecified organism Status: Acute Assessment and Plan: see above (3) Pulmonary edema: Qualifiers: Chronicity: acute Qualified Code(s): J81.0 - Acute pulmonary edema Code(s): J81.1 - Chronic pulmonary edema Status: Acute Assessment and Plan: secondary to CHF and end-stage renal dialysis - MUCH IMPROVED - patient was dialyzed on 03/11/2020, 03/12/2020, 03/13/2020 (4) Suspected 2019 novel coronavirus infection: Code(s): R68.89 - Other general symptoms and signs Status: Acute Assessment and Plan: COVID-19 suspected although atypical presentation - SARS-CoV-2 PCR NEGATIVE - will take patient off Airborne, Droplet and Contact Isolation (5) End stage renal disease: Code(s): N18.6 - End stage renal disease Status: Acute Assessment and Plan: appreciate Nephrology evaluation and recommendations, dialysis per project superintendent (6) Acute hyperkalemia: Code(s): E87.5 - Hyperkalemia Status: Acute Assessment and Plan: RESOLVED post dialysis (7) Hypertensive urgency: Code(s): I16.0 - Hypertensive urgency Status: Acute Assessment and Plan: patient had similar symptoms when he was admitted at the end of January 2020 - restart all his home blood pressure medication (8) GERD (gastroesophageal reflux disease): Code(s): K21.9 - Gastro-esophageal reflux disease without esophagitis Status: Acute Assessment and Plan: PPI (9) DVT prophylaxis: Code(s): Z29.9 - Encounter for prophylactic measures, unspecified Status: Acute Assessment and Plan: subcu heparin (10) Type 1 diabetes mellitus: Qualifiers: Diabetes mellitus complication status: with kidney complications Diabetes mellitus complication detail: with chronic kidney disease Chronic kidney disease stage: on chronic dialysis Qualified Code(s): E10.22 - Type 1 diabetes mellitus with diabetic chronic kidney disease; N18.6 - End stage renal disease; Z99.2 - Dependence on renal dialysis Code(s): E10.9 - Type 1 diabetes mellitus without complications Status: Chronic Assessment and Plan: sliding scale and Lantus Additional Plan discussed with patient and updated with his condition and plan of care. Patient will be discharged home today per hospitalist code status: Full code Total Critical Care Time - 31 minutes Due to a high probability of clinically significant, life threatening deterioration, the patient required my highest level of preparedness to intervene emergently and I personally spent this critical care time directly and personally managing the patient. This critical care time included obtaining a history; examining the patient; pulse oximetry; ordering and review of studies; arranging urgent treatment with development of a management plan; evaluation of patient's response to treatment; frequent reassessment; and discussions with other providers. It was exclusive of separately billable procedures and treating other patients and teaching time. Please see Assessment and Plan section and the rest of the note for further information on patient assessment and treatment Subje
== END 2020-03-15 10:15 | disposition home or self-care (01) | DRG 291 ==
LOC: ANHED 23:34 → ANHICU 03-11 02:55
PROVIDERS: Family Medicine; Internal Medicine; Internal Medicine Nephrology; Admitting Provider Family Medicine; Emergency Provider Emergency Medicine; PCP Emergency Medicine; Visit Provider Internal Medicine
DX: I13.2 Hypertensive heart and chronic kidney disease with heart failure and with stage 5 chronic kidney disease, or end stage renal disease (principal); N18.6 End stage renal disease; J96.01 Acute respiratory failure with hypoxia; J18.9 Pneumonia, unspecified organism; E87.2 Acidosis; Z20.828 Contact with and (suspected) exposure to other viral communicable diseases; N40.0 Benign prostatic hyperplasia without lower urinary tract symptoms; I50.9 Heart failure, unspecified; I25.10 Atherosclerotic heart disease of native coronary artery without angina pectoris; F41.8 Other specified anxiety disorders; I25.2 Old myocardial infarction; D64.9 Anemia, unspecified; Z99.2 Dependence on renal dialysis; K21.9 Gastro-esophageal reflux disease without esophagitis; E55.9 Vitamin D deficiency, unspecified; E10.40 Type 1 diabetes mellitus with diabetic neuropathy, unspecified; E10.319 Type 1 diabetes mellitus with unspecified diabetic retinopathy without macular edema; E10.22 Type 1 diabetes mellitus with diabetic chronic kidney disease; Z89.611 Acquired absence of right leg above knee; F17.210 Nicotine dependence, cigarettes, uncomplicated; K52.9 Noninfective gastroenteritis and colitis, unspecified; I16.0 Hypertensive urgency; Z96.82 Presence of neurostimulator; E87.5 Hyperkalemia
CPT/HCPCS: 31500; 36415; 36556; 36600; 71045; 71260; 74018; 74177; 80048; 80053; 80202; 82271; 82375; 82728; 82805; 82948; 83050; 83605; 83615; 83735; 83986; 84484; 85025; 85380; 86140; 87040; 87635; 93005; 94002; 94003; 94660; 96365; 96366; 96367; 96368; 96375; 99291; A9270; C1751; C9113; G0257; J1644; J1815; J1940; J2405; J2543; J2704; J2997; J3010; J3370; J7030; J7060; P9047; Q4081; Q9967; U0003

== ENCOUNTER 2020-03-27 08:15 | Emergency (ER) | payer MEDICARE, MEDICAID, SELFPAY ==
--- NOTE | ~2020-03-27 | XR_ITS ---
EXAMINATION: XR chest 2V DATE: 03/27/2020 08:59 INDICATION: Dyspnea. TECHNIQUE: Frontal and lateral views of the chest were obtained. COMPARISON: Chest single view 03/15/2020, chest CT 03/11/2020 FINDINGS: There is mild atelectasis at the lung bases. No pleural effusion or pneumothorax. The heart size is normal. An electronic device overlies the abdomen. IMPRESSION: 1. Mild atelectasis at the lung bases. Reviewed, dictated and finalized at location A.
--- NOTE | 2020-03-27 08:22 | ED.GENADULT ---
HPI - General Adult General Chief complaint: Shortness of Breath/Dyspnea Stated complaint: shortness breath, extra fluid Time Seen by Provider: 03/27/20 08:22 Source: EMS Mode of arrival: EMS Limitations: no limitations History of Present Illness HPI narrative: Patient presented to the emergency department for evaluation of shortness of breath. Patient states that shortness of breath began approximately 4 in the morning. Patient is due for dialysis this afternoon, but typically experiences flash pulmonary edema in his last admission required intubation thus he wanted to be seen in the emergency department. Patient is still smoking. He denies head, chest pain, belly pain, lightheadedness or dizziness. No productive cough or fever. Patient states he feels short of breath especially with exertion. It is improved with that rest. Related Data Home Medications Medication Instructions Recorded Confirmed Lantus Solostar U-100 Insulin 10 unit SUBCUT HS 02/05/20 03/11/20 Lantus U-100 Insulin 12 unit SUBCUT DAILY 02/05/20 03/11/20 Renal Vitamin 1 tablet PO DAILY 02/05/20 03/11/20 Vitamin D3 4,000 unit PO DAILY 02/05/20 03/11/20 aspirin [Aspirin Childrens] 81 mg PO DAILY 02/05/20 03/11/20 calcitriol 0.25 mcg PO 3XW 02/05/20 03/11/20 carvedilol 50 mg PO Q12H 02/05/20 03/11/20 clopidogrel 75 mg PO DAILY 02/05/20 03/11/20 cyanocobalamin (vitamin B-12) 1,000 mcg PO DAILY 02/05/20 03/11/20 furosemide 80 mg PO BID 02/05/20 03/11/20 insulin lispro [Humalog KwikPen 6 unit SUBCUT TIDWM 02/05/20 03/11/20 Insulin] nitroglycerin 0.4 mg SUBLINGUAL Q5MIN PRN 02/05/20 03/11/20 pantoprazole 40 mg PO DAILY 02/05/20 03/11/20 tamsulosin 0.4 mg PO DAILY 02/05/20 03/11/20 clonidine HCl 0.4 mg PO TID 03/11/20 03/11/20 oxycodone 5 mg PO Q6H PRN 03/11/20 03/11/20 Allergies Allergy/AdvReac Type Severity Reaction Status Date / Time scopolamine Allergy Severe Unresponsiv Verified 03/07/20 15:02 e Review of Systems Review of Systems: Narrative: CONSTITUTIONAL: Denies fever CARDIOVASCULAR: Denies chest pain RESPIRATORY: Denies cough, reports shortness of breath GASTROINTESTINAL: Denies abdominal pain SKIN: Denies rash MUSCULOSKELETAL: Denies back pain NEUROLOGIC: Denies headache, denies lightheadedness or dizziness [facility] Past Medical History Medical History Benign prostatic hyperplasia CHF (congestive heart failure) Chronic anemia Coronary artery disease With non STEMI in December 2019, with stent placed to the LAD. Depression with anxiety Diabetes Dialysis patient End-stage renal disease on hemodialysis ESRD (end stage renal disease) Flash pulmonary edema GERD (gastroesophageal reflux disease) Hypertension Seizure Secondary to hypoglycemia. Tobacco dependence Type 1 diabetes mellitus Diagnosed at the age of 10. Complicated by retinopathy, nephropathy, and neuropathy. Hemoglobin A1c was 8.1% in December 2019. Vitamin D deficiency disease Surgical History Surgical History History of spinal surgery Neurostimulator in place. Status post below knee amputation of right lower extremity December 02, 2019 at [facility]. Status post cataract extraction Status post hemorrhoidectomy Family History Family History Father Hypertension Sibling Multiple myeloma Hypertension Sibling Hypertension Sibling Hypertension Father Hypertension Sibling Multiple myeloma Mother Acute myelogenous leukemia Sibling Hypertension Sibling Hypertension Sibling Hypertension Social History Social History Social History: The patient lives in [place] with his and their 22-year-old daughter. He is on disability. he designates his , Rosana, as his surrogate decision maker and he wishes to be a full code. H
[2020-03-27 08:23] VITALS: BP 192/81; PULSE 88; RESP 18; TEMP 36.8; O2SAT 100
--- NOTE | 2020-03-27 08:25 | ECG_ITS ---
Measurements Intervals [place] Rate: 87 P: 66 IN: 162 QRS: 75 QRSD: 88 T: 92 QT: 354 QTc: 428 Interpretive Statements SINUS RHYTHM DELAYED PRECORDIAL R/S TRANSITION POSSIBLE LEFT VENTRICULAR HYPERTROPHY BORDERLINE T WAVE ABNORMALITY- HIGH LATERAL LEADS BORDERLINE ECG Electronically Signed On 03-27-2020 14:13:56 CDT by Edmond Elias D.O.
[2020-03-27 08:29] VITALS: PULSE 88
[2020-03-27 08:32] VITALS: O2SAT 99
[2020-03-27] MEDS: FUROSEMIDE INJ 40 MG/4 ML VIAL IV PUSH (08:45)
[2020-03-27] MEDS: NITROGLYCERIN SL 0.4 MG TABLET SUBLINGUAL (08:45)
[2020-03-27 08:47] LABS: Basophils Absolute Auto 0.1 K/mm3 (0.0-0.1); Basophils Percent Auto 0.5 % (0.2-1.2); Eosinophils Absolute Auto 0.4 K/mm3 (0-0.3); Eosinophils Percent Auto 3.2 % (0-4.4); Hematocrit 27.8 % (42.0-52.0); Hemoglobin 8.7 g/dL (14.0-18.0); Immature Granulocyte Absolute 0.09 K/mm3 (0.00-0.031); Immature Granulocyte Percent A 0.7 % (0-0.5); Mean Corpuscular HGB Conc 31.3 g/dl (32-36); Mean Corpuscular Hemoglobin 31.1 pg (26-34); Mean Corpuscular Volume 99.3 fl (80-100); Mean Platelet Volume 9.2 fl (7.4-10.4); Monocytes Percent Auto 7.6 % (2.6-8.5); Neutrophils Absolute Auto 10.5 K/mm3 (1.3-6.7); Platelet Count Result 645 k/mm3 (150-375); Red Cell Distribution Width 15.9 % (11.5-14.5); White Blood Count 13.6 K/mm3 (4.5-10.0)
[2020-03-27 08:54] LABS: Prothrombin Time 12.6 Seconds (11.1-14.7)
[2020-03-27 08:55] LABS: Partial Thromboplastin Time 32.6 SECONDS (22.3-36.8)
[2020-03-27 08:57] LABS: Alanine Aminotransferase 13 U/L (4-50); Alkaline Phosphatase 75 U/L (38-126); Aspartate Amino Transferase 22 U/L (17-59); Bilirubin,Total 0.3 mg/dL (0.2-1.3); Blood Urea Nitrogen 65 mg/dL (9-20); Carbon Dioxide 25 mmol/L (22-30); Chloride 93 mmol/L (98-107); Estimated CRCL calculation 9 ml/min; Estimated Glomerular Filt Rate 7; Glucose 331 mg/dL (75-110); Potassium 5.8 mmol/L (3.4-5.0); Sodium 133 mmol/L (137-145)
[2020-03-27 09:08] LABS: NT Pro B Type Natriuretic Pept > 35000 PG/ML (5-100); Troponin I 0.017 ng/mL (0.000-0.034)
[2020-03-27 09:27] VITALS: BP 171/69; PULSE 84; RESP 18; O2SAT 100
[2020-03-27] MEDS: CALCIUM GLUCONATE 1,000 MG/10 ML VIAL 2000 MG IV PUSH (10:59)
[2020-03-27 11:11] VITALS: BP 187/79; PULSE 80; RESP 18; O2SAT 99
== END 2020-03-27 11:11 | disposition home or self-care (01) ==
PROVIDERS: Emergency Provider Emergency Medicine; PCP Emergency Medicine
DX: R06.00 Dyspnea, unspecified (principal); N40.0 Benign prostatic hyperplasia without lower urinary tract symptoms; I50.9 Heart failure, unspecified; I13.2 Hypertensive heart and chronic kidney disease with heart failure and with stage 5 chronic kidney disease, or end stage renal disease; N18.6 End stage renal disease; Z99.2 Dependence on renal dialysis; E10.22 Type 1 diabetes mellitus with diabetic chronic kidney disease; Z79.4 Long term (current) use of insulin; I25.10 Atherosclerotic heart disease of native coronary artery without angina pectoris; K21.9 Gastro-esophageal reflux disease without esophagitis; E55.9 Vitamin D deficiency, unspecified; F17.210 Nicotine dependence, cigarettes, uncomplicated; Z89.511 Acquired absence of right leg below knee; Z98.49 Cataract extraction status, unspecified eye; Z79.82 Long term (current) use of aspirin; E10.40 Type 1 diabetes mellitus with diabetic neuropathy, unspecified; E10.319 Type 1 diabetes mellitus with unspecified diabetic retinopathy without macular edema; R94.31 Abnormal electrocardiogram [ECG] [EKG]
CPT/HCPCS: 36415; 71046; 80053; 83880; 84484; 85025; 85610; 85730; 93005; 96374; 96375; 99284; A9270; J0610; J1940

== ENCOUNTER 2020-04-07 10:47 | Emergency (ER) | payer MEDICARE, MEDICAID, SELFPAY ==
[2020-04-07] VITALS (17 sets, daily range): BP systolic 84–151; BP diastolic 47–71; PULSE 66–74; RESP 13–23; TEMP 36.6; O2SAT 98–100
--- NOTE | ~2020-04-07 | XR_ITS ---
EXAMINATION: [id number] DATE: 04/07/2020 11:31 INDICATION: Anterior left rib pain. TECHNIQUE: A frontal view of the chest on 2 radiographs and 3 views of the left ribs were obtained. COMPARISON: Chest 2 views 03/27/2020, chest CT 03/11/2020 FINDINGS: There is mild atelectasis at the lung bases. No pleural effusion or pneumothorax. The heart size is normal. There are changes of anterior and posterior fusion procedures in lumbar spine. There is a bone stimulator overlying lumbar spine. IMPRESSION: 1. No rib fracture. 2. Mild atelectasis at the lung bases. Reviewed, dictated and finalized at location A.
--- NOTE | 2020-04-07 10:56 | ECG_ITS ---
Measurements Intervals [place] Rate: 66 P: 52 NM: 185 QRS: 67 QRSD: 85 T: 99 QT: 426 QTc: 448 Interpretive Statements SINUS RHYTHM VOLTAGE CRITERIA FOR LVH BORDERLINE ST-T WAVE ABNORMALITY- HIGH LATERAL LEADS BORDERLINE ECG Electronically Signed On 04-07-2020 11:12:33 CDT by Edmond Elias D.O.
--- NOTE | 2020-04-07 11:05 | PC.NURSE ---
Pt states he is weak and feels like he has low blood sugar. Pt states his BP was low this morning. Pt is A&Ox4. Pt able to transfer to bed. Pt talking with us.
--- NOTE | 2020-04-07 11:09 | ED.GENADULT ---
HPI - General Adult General Chief complaint: Recheck/Abnormal Lab/Rx Stated complaint: BP LOW Time Seen by Provider: 04/07/20 10:54 Source: RN notes reviewed History of Present Illness HPI narrative: Patient presents emergency department from home for low blood pressure. Patient states he noted this morning feeling weak and lightheaded. He states he went to his PCP office where blood pressure was checked and was noted to be low patient does have a history of dialysis on Wednesdays and Fridays went to dialysis yesterday with regular treatment performed he denies any recent illness he denies any fevers or chills chest pain shortness of breath or any other symptoms he states he did fall last week striking his left ribs and has been soreness left anterior lateral ribs states he has had no work-up for this Related Data Home Medications Medication Instructions Recorded Confirmed Lantus Solostar U-100 Insulin 10 unit SUBCUT HS 02/05/20 03/11/20 Lantus U-100 Insulin 12 unit SUBCUT DAILY 02/05/20 03/11/20 Renal Vitamin 1 tablet PO DAILY 02/05/20 03/11/20 Vitamin D3 4,000 unit PO DAILY 02/05/20 03/11/20 aspirin [Aspirin Childrens] 81 mg PO DAILY 02/05/20 03/11/20 calcitriol 0.25 mcg PO 3XW 02/05/20 03/11/20 carvedilol 50 mg PO Q12H 02/05/20 03/11/20 clopidogrel 75 mg PO DAILY 02/05/20 03/11/20 cyanocobalamin (vitamin B-12) 1,000 mcg PO DAILY 02/05/20 03/11/20 furosemide 80 mg PO BID 02/05/20 03/11/20 insulin lispro [Humalog KwikPen 6 unit SUBCUT TIDWM 02/05/20 03/11/20 Insulin] nitroglycerin 0.4 mg SUBLINGUAL Q5MIN PRN 02/05/20 03/11/20 pantoprazole 40 mg PO DAILY 02/05/20 03/11/20 tamsulosin 0.4 mg PO DAILY 02/05/20 03/11/20 clonidine HCl 0.4 mg PO TID 03/11/20 03/11/20 oxycodone 5 mg PO Q6H PRN 03/11/20 03/11/20 Allergies Allergy/AdvReac Type Severity Reaction Status Date / Time scopolamine Allergy Severe Unresponsiv Verified 03/07/20 15:02 e Review of Systems Review of Systems: Narrative: Gen.: Denies fevers or chills Eyes: Denies eye pain or visual change ENT: Denies congestion Respiratory: Denies shortness of breath or cough CV: Denies chest pain or palpitations reports low blood pressure GI: Denies abdominal pain nausea, emesis or diarrhea reports dialysis with last dialysis yesterday Musculoskeletal: Denies back pain or muscle pain Neuro: Reports lightheadedness Skin: Denies rash Except as documented, all other systems reviewed and negative [facility] Past Medical History Medical History Benign prostatic hyperplasia CHF (congestive heart failure) Chronic anemia Coronary artery disease With non STEMI in December 2019, with stent placed to the LAD. Depression with anxiety Diabetes Dialysis patient End-stage renal disease on hemodialysis ESRD (end stage renal disease) Flash pulmonary edema GERD (gastroesophageal reflux disease) Hypertension Seizure Secondary to hypoglycemia. Tobacco dependence Type 1 diabetes mellitus Diagnosed at the age of 10. Complicated by retinopathy, nephropathy, and neuropathy. Hemoglobin A1c was 8.1% in December 2019. Vitamin D deficiency disease Social History Social History Social History: The patient lives in [place] with his and their 22-year-old daughter. He is on disability. he designates his , Rosana, as his surrogate decision maker and he wishes to be a full code. He is a smoker, between 1 and 2 packs a day. He smokes marijuana daily. He denies significant alcohol use. Smoking packs per day: 2 Smoking cigarettes per day: 40.0 Years smoked: 32 Smoking pack-years: 64.00 Smoking status: Current every day smoker Tobacco type: cigarettes Second hand tobacco smoke exposure: Yes Additional smoking assessment comments: smokes marijuana every day Alcohol intake: unknown Substance use: current Substance use type: marijuana Last
[2020-04-07] MEDS: SODIUM CHLORIDE 0.9% IV 500 ML 999 ML IV CONT (12:05)
[2020-04-07 12:18] LABS: Basophils Absolute Auto 0.1 K/mm3 (0.0-0.1); Basophils Percent Auto 0.8 % (0.2-1.2); Eosinophils Absolute Auto 0.4 K/mm3 (0-0.3); Eosinophils Percent Auto 4.6 % (0-4.4); Hematocrit 33.9 % (42.0-52.0); Hemoglobin 10.3 g/dL (14.0-18.0); Immature Granulocyte Absolute 0.07 K/mm3 (0.00-0.031); Immature Granulocyte Percent A 0.8 % (0-0.5); Lymphocytes Absolute Auto 1.25 K/mm3 (0.9-3.2); Lymphocytes Percent Auto 14.4 % (18.3-44.2); Mean Corpuscular HGB Conc 30.4 g/dl (32-36); Mean Corpuscular Volume 102.1 fl (80-100); Monocytes Absolute Auto 0.7 K/mm3 (0.1-0.6); Monocytes Percent Auto 8.3 % (2.6-8.5); Neutrophils Absolute Auto 6.2 K/mm3 (1.3-6.7); Neutrophils Percent Auto 71.1 % (45.5-73.1); Platelet Count Result 458 k/mm3 (150-375); Red Blood Count 3.32 M/mm3 (4.6-6.20); Red Cell Distribution Width 17.1 % (11.5-14.5); White Blood Count 8.7 K/mm3 (4.5-10.0)
[2020-04-07 12:39] LABS: Alanine Aminotransferase 14 U/L (4-50); Albumin Level 3.9 g/dL (3.5-5.1); Alkaline Phosphatase 80 U/L (38-126); Aspartate Amino Transferase 21 U/L (17-59); Bilirubin,Total 0.3 mg/dL (0.2-1.3); Blood Urea Nitrogen 38 mg/dL (9-20); Calcium 8.6 mg/dL (8.4-10.2); Carbon Dioxide 25 mmol/L (22-30); Chloride 100 mmol/L (98-107); Estimated CRCL calculation 13 ml/min; Estimated Glomerular Filt Rate 10; Glucose 171 mg/dL (75-110); Potassium 6.3 mmol/L (3.4-5.0); Sodium 134 mmol/L (137-145)
[2020-04-07] MEDS: SODIUM POLYSTYRENE SULFONONATE 15 GM/60 ML BTL 30 GM PO (13:33)
== END 2020-04-07 14:03 | disposition home or self-care (01) ==
PROVIDERS: Emergency Provider Emergency Medicine; PCP Emergency Medicine
DX: E87.5 Hyperkalemia (principal); I13.2 Hypertensive heart and chronic kidney disease with heart failure and with stage 5 chronic kidney disease, or end stage renal disease; E11.22 Type 2 diabetes mellitus with diabetic chronic kidney disease; N18.6 End stage renal disease; Z99.2 Dependence on renal dialysis; Z79.4 Long term (current) use of insulin; D64.9 Anemia, unspecified; K21.9 Gastro-esophageal reflux disease without esophagitis; F17.210 Nicotine dependence, cigarettes, uncomplicated; I50.9 Heart failure, unspecified
CPT/HCPCS: 36415; 71101; 80053; 85025; 93005; 96360; 99283; A9270; J7040

== ENCOUNTER 2020-04-10 20:18 | Observation (INO) | payer MEDICARE, MEDICAID, SELFPAY ==
--- NOTE | ~2020-04-10 | XR_ITS ---
EXAMINATION: XR chest 2V 04/12/2020 08:33 INDICATION: Pneumonia. Shortness of breath. PROCEDURE: PA and lateral views of the chest COMPARISON: Comparison to multiple prior studies sequentially, with oldest reviewed study dated 12/2019. FINDINGS: The lungs are clear. The cardiomediastinal silhouette is within normal limits. There are no pleural effusions. There is no pneumothorax suspected. IMPRESSION: 1: NO ACUTE CARDIOPULMONARY DISEASE. Reviewed, dictated and finalized at location A.
--- NOTE | ~2020-04-10 | CT_ITS ---
EXAMINATION: CT abdomen pelvis wo con DATE: 04/10/2020 20:54 INDICATION: Lower abdominal pain. History of constipation. TECHNIQUE: Computed tomography (CT) of the abdomen and pelvis was performed without intravenous contr ast. The dose-length product was 313.79 mGy-cm. Automated exposure control and iterative reconstructi on technique were employed. COMPARISON: CT dated 03/11/2020 FINDINGS: There are are groundglass opacities in the right middle lobe there is dependent atelectasis . No significant pleural or pericardial effusion. Heart size is normal. The liver, spleen, pancreas, adrenal glands are unremarkable. There is extensive atherosclerosis incl uding renal artery calcifications with bilateral renal atrophy. There is bilateral renal artery steno sis. There are left renal cysts. There is a large amount of retained fecal material throughout the colon and rectum. There is a large amount of fluid and debris in the stomach. No free air or free fluid. No abscess. Evaluation for lymp hadenopathy limited by lack of contrast. There is upper abdominal retroperitoneal lymphadenopathy. Th ere is moderate lumbar spondylosis with spinal stimulator overlying the lumbar spine. There are tadeo es of anterior and posterior fusion at L5-S1. There are healing fractures of right L2 and L3 transver se processes. IMPRESSION: 1. Large amount of retained fecal material throughout the colon and rectum. Large amount of fluid and debris in the stomach. Compatible with ileus with possible fecal impaction of the colon. 2: Groundglass opacities right middle lobe, suspicious for pneumonia. 3: Bilateral renal artery stenosis with bilateral renal atrophy.. Reviewed, dictated and finalized at location A. IMPRESSION: 1. Large amount of retained fecal material throughout the colon and rectum. Lar ge amount of fluid and debris in the stomach. Compatible with ileus with possib le fecal impaction of the colon. 2: Groundglass opacities right middle lobe, suspicious for pneumonia. 3: Bilateral renal artery stenosis with bilateral renal atrophy..
--- NOTE | ~2020-04-10 | XR_ITS ---
EXAMINATION: XR chest 1V portable 04/10/2020 22:07 INDICATION: History of CHF, hypertension and infiltrate PROCEDURE: AP portable chest COMPARISON: 03/27/2020 FINDINGS: The lungs are clear. The cardiomediastinal silhouette is within normal limits. There are no pleural effusions. There is no pneumothorax suspected. IMPRESSION: 1: NO ACUTE CARDIOPULMONARY DISEASE. Reviewed, dictated and finalized at location A.
[2020-04-10 20:25] VITALS: BP 201/85; PULSE 101; RESP 21; TEMP 36.8; O2SAT 100
--- NOTE | 2020-04-10 20:43 | ED.ABDPAIN ---
HPI - Abdominal Pain General Chief Complaint: Abdominal Pain Stated Complaint: Abd pain Time Seen by Provider: 04/10/20 20:23 Source: RN notes reviewed History of Present Illness HPI narrative: Patient presents emergency department from home for abdominal pain. Patient states pain began this morning. Pain is located across the bilateral upper abdomen described as burning and sandpaper feeling . Patient denies any fevers or chills chest pain shortness of breath nausea vomiting diarrhea or any other symptoms. Patient states he took no previous pain medication for the symptoms patient reports chronic renal failure with dialysis today Related Data Home Medications Medication Instructions Recorded Confirmed Lantus Solostar U-100 Insulin 10 unit SUBCUT HS 02/05/20 03/11/20 Lantus U-100 Insulin 12 unit SUBCUT DAILY 02/05/20 03/11/20 Renal Vitamin 1 tablet PO DAILY 02/05/20 03/11/20 Vitamin D3 4,000 unit PO DAILY 02/05/20 03/11/20 aspirin [Aspirin Childrens] 81 mg PO DAILY 02/05/20 03/11/20 calcitriol 0.25 mcg PO 3XW 02/05/20 03/11/20 carvedilol 50 mg PO Q12H 02/05/20 03/11/20 clopidogrel 75 mg PO DAILY 02/05/20 03/11/20 cyanocobalamin (vitamin B-12) 1,000 mcg PO DAILY 02/05/20 03/11/20 furosemide 80 mg PO BID 02/05/20 03/11/20 insulin lispro [Humalog KwikPen 6 unit SUBCUT TIDWM 02/05/20 03/11/20 Insulin] nitroglycerin 0.4 mg SUBLINGUAL Q5MIN PRN 02/05/20 03/11/20 pantoprazole 40 mg PO DAILY 02/05/20 03/11/20 tamsulosin 0.4 mg PO DAILY 02/05/20 03/11/20 clonidine HCl 0.4 mg PO TID 03/11/20 03/11/20 oxycodone 5 mg PO Q6H PRN 03/11/20 03/11/20 Allergies Allergy/AdvReac Type Severity Reaction Status Date / Time scopolamine Allergy Severe Unresponsiv Verified 03/07/20 15:02 e Review of Systems Review of Systems: Narrative: Gen.: Denies fevers or chills ENT: Denies congestion Respiratory: Denies shortness of breath or cough CV: Denies chest pain or palpitations GI: See HPI chronic renal failure Musculoskeletal: Denies back pain or muscle pain Neuro: Denies numbness, tingling, weakness or focal weakness Skin: Denies rash Except as documented, all other systems reviewed and negative [facility] Social History Social History Social History: The patient lives in [place] with his and their 22-year-old daughter. He is on disability. he designates his , Rosana, as his surrogate decision maker and he wishes to be a full code. He is a smoker, between 1 and 2 packs a day. He smokes marijuana daily. He denies significant alcohol use. Smoking packs per day: 2 Smoking cigarettes per day: 40.0 Years smoked: 32 Smoking pack-years: 64.00 Smoking status: Current every day smoker Tobacco type: cigarettes Second hand tobacco smoke exposure: Yes Additional smoking assessment comments: smokes marijuana every day Alcohol intake: unknown Substance use: current Substance use type: marijuana Last use: !01/08/19 everyday marijuana user Gender identity (if verbalized by the patient): Male Spiritual care concerns: No Agree to blood products: Yes Exam Narrative: Exam Narrative: APPEARANCE: No acute distress, nontoxic, resting in bed HEENT: Normocephalic, atraumatic, OMM RESPIRATORY: No respiratory distress, clear to auscultation bilaterally with no rhonchi wheezing or rales CARDIOVASCULAR: RRR s murmur ABDOMINAL: Soft, nondistended, diffusely tender to palpation, no rebound or guarding MUSCULOSKELETAl: Moves all extremities. No clubbing, cyanosis or edema. NEURO: Awake and alert. Following commands, speech normal, no focal deficits SKIN:: Warm, dry. Normal Color PSYCHIATRIC: Normal affect/mood Course Course Emergency Course: Shortly after blood work was drawn the patient had checked his blood sugar in his room and noted it was high and gave himself 11 units of insulin Discussed with Dr. Ponce presentation work-up. Agrees with admission at
[2020-04-10 20:50] LABS: Basophils Absolute Auto 0.1 K/mm3 (0.0-0.1); Basophils Percent Auto 0.7 % (0.2-1.2); Eosinophils Absolute Auto 0.5 K/mm3 (0-0.3); Eosinophils Percent Auto 6.1 % (0-4.4); Hematocrit 37.5 % (42.0-52.0); Hemoglobin 11.6 g/dL (14.0-18.0); Immature Granulocyte Absolute 0.09 K/mm3 (0.00-0.031); Lymphocytes Absolute Auto 1.71 K/mm3 (0.9-3.2); Lymphocytes Percent Auto 19.4 % (18.3-44.2); Mean Corpuscular HGB Conc 30.9 g/dl (32-36); Mean Corpuscular Hemoglobin 31.6 pg (26-34); Mean Corpuscular Volume 102.2 fl (80-100); Mean Platelet Volume 9.3 fl (7.4-10.4); Monocytes Absolute Auto 0.9 K/mm3 (0.1-0.6); Monocytes Percent Auto 10.3 % (2.6-8.5); Neutrophils Absolute Auto 5.5 K/mm3 (1.3-6.7); Neutrophils Percent Auto 62.5 % (45.5-73.1); Platelet Count Result 435 k/mm3 (150-375); Red Blood Count 3.67 M/mm3 (4.6-6.20); White Blood Count 8.8 K/mm3 (4.5-10.0)
[2020-04-10 21:06] LABS: Alanine Aminotransferase 15 U/L (4-50); Albumin Level 4.5 g/dL (3.5-5.1); Alkaline Phosphatase 127 U/L (38-126); Aspartate Amino Transferase 27 U/L (17-59); Bilirubin,Total 0.4 mg/dL (0.2-1.3); Blood Urea Nitrogen 24 mg/dL (9-20); Calcium 8.6 mg/dL (8.4-10.2); Carbon Dioxide 29 mmol/L (22-30); Chloride 93 mmol/L (98-107); Estimated CRCL calculation 18 ml/min; Estimated Glomerular Filt Rate 16; Glucose 570 mg/dL (75-110); Lipase 504 U/L (23-300); Sodium 132 mmol/L (137-145)
--- NOTE | 2020-04-10 21:15 | PC.NURSE ---
PT STATES THAT HE TOOK HIS SUGAR IN ROOM AND IT READ HIGH PT THEN GAVE HIMSELF 11 UNITS OF HIS OWN INSULIN SUB-Q AT THIS TIME.
[2020-04-10 21:18] VITALS: BP 166/68; PULSE 101; RESP 19; TEMP 37.2; O2SAT 100
[2020-04-10 21:54] VITALS: BP 143/66; PULSE 101; RESP 19; O2SAT 100
[2020-04-10 22:39] VITALS: BP 158/74; PULSE 102; RESP 21; O2SAT 100
[2020-04-10 22:49] LABS: Glucose Point of Care 473 (65-105)
--- NOTE | 2020-04-10 22:59 | PC.NURSE ---
PT HAD 1 LARGE BOWEL MOVEMENT AT THIS TIME.
[2020-04-10 23:20] VITALS: BP 168/74; PULSE 104; RESP 18; TEMP 37.2; O2SAT 97
[2020-04-10 23:54] VITALS: BP 170/65; PULSE 99; RESP 20; TEMP 36.9; O2SAT 100
[2020-04-10 23:55] VITALS: BMI 21.1
[2020-04-11 00:59] LABS: Glucose Point of Care 493 (65-105)
[2020-04-11] MEDS: INSULIN ASPART (*BKC) 100 UNITS/ML 10 UNITS SUB-Q (02:27)
[2020-04-11 06:00] VITALS: BP 159/89; PULSE 88; RESP 19; TEMP 36.8; O2SAT 99
[2020-04-11 06:51] LABS: Basophils Absolute Auto 0.1 K/mm3 (0.0-0.1); Basophils Percent Auto 0.6 % (0.2-1.2); Eosinophils Absolute Auto 0.7 K/mm3 (0-0.3); Eosinophils Percent Auto 4.8 % (0-4.4); Hematocrit 36.5 % (42.0-52.0); Hemoglobin 11.5 g/dL (14.0-18.0); Immature Granulocyte Absolute 0.08 K/mm3 (0.00-0.031); Immature Granulocyte Percent A 0.6 % (0-0.5); Lymphocytes Absolute Auto 1.86 K/mm3 (0.9-3.2); Lymphocytes Percent Auto 13.3 % (18.3-44.2); Mean Corpuscular HGB Conc 31.5 g/dl (32-36); Mean Corpuscular Hemoglobin 31.1 pg (26-34); Mean Corpuscular Volume 98.6 fl (80-100); Monocytes Absolute Auto 1.5 K/mm3 (0.1-0.6); Monocytes Percent Auto 10.9 % (2.6-8.5); Neutrophils Absolute Auto 9.8 K/mm3 (1.3-6.7); Neutrophils Percent Auto 69.8 % (45.5-73.1); Platelet Count Result 461 k/mm3 (150-375); Red Cell Distribution Width 16.8 % (11.5-14.5)
[2020-04-11 07:09] LABS: Blood Urea Nitrogen 36 mg/dL (9-20); Calcium 9.3 mg/dL (8.4-10.2); Carbon Dioxide 26 mmol/L (22-30); Chloride 99 mmol/L (98-107); Estimated CRCL calculation 13 ml/min; Estimated Glomerular Filt Rate 12; Glucose 67 mg/dL (75-110); Potassium 4.7 mmol/L (3.4-5.0); Sodium 137 mmol/L (137-145)
--- NOTE | 2020-04-11 07:33 | PM.IMHP ---
H&P: HPI History of Present Illness Chief complaint: fecal impaction, abdominal pain Narrative: Ish Corley is a 54 year old male with ESRD and DM Type I here for abd pain. Patient has had abdominal 'discomfort' x 1 week he describes as 'sandpaper running over my intestines'. He has been constipated over this time with occasional nausea. Last BM 2 days ago. He took a COlace on that day as well. He tried Miralax once 1 week ago with no benefit. He has been tolerating HD M-W- but states he has been feeling more anxious at HD requiring him to take more lorazepan then prescribed. Weight has been stable. He had a BM prior to admission with improvement in his symptoms but still decided to present to the ER so 'you guys can figure out whats wrong'. No melana or hematachezia. He has noted early satiety past few months with bloating. Makes small amount of urine daily. In the ER, BP 201/85 and pulse 101. Glucose 570 but no evidence of DKA. He states his glucose runs 'all over the place'. He has a sensor in place but still checks his glucose 3-4x/day. CXR clear. CT A/P showing stool filled colon, large amount of debris in the stomach and RML airspace opacity. He denies SOB or cough. He has minor SOB prior to HD ususally but this is chronic. No fever or chills. No treatment in ER. Patient states since admission, he has had 3 BMs. He also was having emesis here of undigested food. He is requesting renal diet this morning and feels ready for discharge. Review of Systems Review of Systems: All systems reviewed & are unremarkable except as noted in HPI and below [facility] Past Medical History Medical History (Updated 04/11/20 @ 07:58 by Matteo Tom MD) Anxiety Benign prostatic hyperplasia CHF (congestive heart failure) Chronic anemia Coronary artery disease With non STEMI in December 2019, with stent placed to the LAD. Depression with anxiety End-stage renal disease on hemodialysis Flash pulmonary edema GERD (gastroesophageal reflux disease) Hypertension Seizure Secondary to hypoglycemia. Tobacco dependence Type 1 diabetes mellitus Diagnosed at the age of 10. Complicated by retinopathy, nephropathy, and neuropathy. Hemoglobin A1c was 8.1% in December 2019. Vitamin D deficiency disease Surgical History Surgical History History of spinal surgery Neurostimulator in place. Status post below knee amputation of right lower extremity December 02, 2019 at [facility]. Status post cataract extraction Status post hemorrhoidectomy Family History Family History Father Hypertension Sibling Multiple myeloma Hypertension Sibling Hypertension Sibling Hypertension Father Hypertension Sibling Multiple myeloma Mother Acute myelogenous leukemia Sibling Hypertension Sibling Hypertension Sibling Hypertension Social History Social History (Updated 04/11/20 @ 07:52 by Matteo Tom MD) Social History: The patient lives in [place] with his and daughter. He is on disability. He designates his , Rosana, as his surrogate decision maker and he wishes to be a full code. Smokes 1ppd since age 17yo. He is trying to quit and down to 3-5cig/day now. He smokes marijuana daily. He denies significant alcohol use. Hx of cocaine use but no other drug use. Smoking packs per day: 2 Smoking cigarettes per day: 40.0 Years smoked: 32 Smoking pack-years: 64.00 Smoking status: Current every day smoker Tobacco type: cigarettes Second hand tobacco smoke exposure: Yes Additional smoking assessment comments: smokes marijuana every day Alcohol intake: former Drinks per week: 12 Substance use: current Substance use type: marijuana Last use: !01/08/19 everyday marijuana user Gender identity (if verbalized by the patient): Male Spiritual care concerns: No Agree to
[2020-04-11 07:43] LABS: Glucose Point of Care 92 (65-105)
[2020-04-11] MEDS: ASPIRIN 81 MG CHEWABLE TABLET PO (09:30)
[2020-04-11] MEDS: TAMSULOSIN HCL 0.4 MG CAPSULE PO (09:30)
[2020-04-11] MEDS: PANTOPRAZOLE 40 MG TABLET PO (09:30)
[2020-04-11] MEDS: LOSARTAN POTASSIUM 100 MG TABLET PO (09:30)
[2020-04-11] MEDS: CLONIDINE HCL 0.2 MG TABLET PO ×3 (09:30→16:15)
[2020-04-11] MEDS: DOCUSATE SODIUM 100 MG CAPSULE PO ×2 (09:30→21:09)
[2020-04-11] MEDS: CHOLECALCIFEROL 1,000 UNIT TABLET 4000 UNITS PO (09:31)
[2020-04-11] MEDS: NICOTINE (*PBKC) 21 MG PATCH 1 PATCH TRANSDERM (09:32)
[2020-04-11] MEDS: VITAMIN B CMPLX/VIT C/FOLIC AC 1 CAPSULE 1 CAP PO (09:33)
[2020-04-11] MEDS: SERTRALINE HCL 25 MG TABLET PO (09:33)
[2020-04-11] MEDS: FUROSEMIDE 80 MG TABLET PO ×2 (09:33→16:15)
[2020-04-11] MEDS: carvediloL 25 MG TABLET 50 MG PO ×2 (09:33→21:09)
[2020-04-11] MEDS: CLOPIDOGREL BISULFATE 75 MG TABLET PO (09:33)
[2020-04-11] MEDS: polyethylene glycoL 3350 17 GM POWD.PACK PO (09:56)
--- NOTE | 2020-04-11 09:58 | PC.NURSE ---
patient's blood sugar at 0741 was 92. Patient did not require any insulin at this time. Upon entering patient's room during medication pass the patient informed me that after breakfast he checked his blood sugar and it was 230. The patient then self administered 2 units of Humalog. I educated the patient about the importance of not taking home medications while inpatient. The patient refused to allow me to lock up his home medications stating the insulin never leaves my side . The patient and I came to an agreement that he would not self administer medications and I would administer insulin as scheduled. I notified Dr. Tom and he said to hold the scheduled Novolog and Lantus at this time.
[2020-04-11] MEDS: METOCLOPRAMIDE HCL 2.5 MG TABLET PO ×3 (11:33→21:09)
[2020-04-11 11:41] LABS: Glucose Point of Care 241 (65-105)
[2020-04-11] MEDS: INSULIN ASPART (*BKC) 100 UNITS/ML SUB-Q (11:45)
[2020-04-11] MEDS: INSULIN ASPART (*BKC) 100 UNITS/ML 6 UNITS SUB-Q ×2 (11:46→21:28)
[2020-04-11 12:15] VITALS: BP 139/58
[2020-04-11 14:00] VITALS: BP 112/50; PULSE 78; RESP 20; TEMP 36.6; O2SAT 100
[2020-04-11 14:04] LABS: Lipase 751 U/L (23-300)
[2020-04-11 14:09] LABS: Glucose Point of Care 99 (65-105)
--- NOTE | 2020-04-11 14:10 | PC.NURSE ---
The patient was very diaphoretic and lethargic upon entering the room. Vitals signs were taken and are as follows: Temperature-97.9, pulse-78, respirations-20, oxygen-100%, blood pressure-112/50, blood glucose- 99. Patient denies any chest pain or dizziness and just states he is tired. Patient states that he sweats like this at home occasionally. I notified Dr. Tom and he assessed the patient. The patient has no complaints at this time so Dr. Tom said to continue to monitor the patient.
[2020-04-11 16:00] VITALS: BP 128/65
[2020-04-11] MEDS: GLUCOSE ORAL GEL 15 GM OF GLUCSE IN 37.5 GM TUBE PO ×2 (16:36→17:01)
[2020-04-11 16:38] LABS: Glucose Point of Care 31 (65-105)
[2020-04-11 17:17] LABS: Glucose Point of Care 39 (65-105)
[2020-04-11 17:24] LABS: Glucose Point of Care 78 (65-105)
[2020-04-11 18:55] LABS: Glucose Point of Care 332 (65-105)
[2020-04-11 21:09] VITALS: PULSE 76
[2020-04-11] MEDS: ATORVASTATIN 40 MG TABLET PO (21:09)
[2020-04-11] MEDS: INSULIN GLARGINE (*BKC) 100 UNITS/ML 10 UNITS SUB-Q (21:10)
[2020-04-11 21:23] LABS: Glucose Point of Care 377 (65-105)
[2020-04-11 22:00] VITALS: BP 159/70; PULSE 71; RESP 18; TEMP 36.5; O2SAT 100
[2020-04-12 06:00] VITALS: BP 162/67; PULSE 74; RESP 18; TEMP 35.8; O2SAT 100
[2020-04-12 06:07] LABS: Basophils Absolute Auto 0.1 K/mm3 (0.0-0.1); Basophils Percent Auto 0.8 % (0.2-1.2); Eosinophils Absolute Auto 0.6 K/mm3 (0-0.3); Eosinophils Percent Auto 7.3 % (0-4.4); Hematocrit 35.7 % (42.0-52.0); Hemoglobin 11.2 g/dL (14.0-18.0); Immature Granulocyte Absolute 0.05 K/mm3 (0.00-0.031); Immature Granulocyte Percent A 0.6 % (0-0.5); Lymphocytes Percent Auto 25.9 % (18.3-44.2); Mean Corpuscular HGB Conc 31.4 g/dl (32-36); Mean Corpuscular Hemoglobin 31.2 pg (26-34); Mean Corpuscular Volume 99.4 fl (80-100); Mean Platelet Volume 9.1 fl (7.4-10.4); Monocytes Absolute Auto 0.8 K/mm3 (0.1-0.6); Monocytes Percent Auto 9.8 % (2.6-8.5); Neutrophils Absolute Auto 4.7 K/mm3 (1.3-6.7); Neutrophils Percent Auto 55.6 % (45.5-73.1); Platelet Count Result 417 k/mm3 (150-375); Red Blood Count 3.59 M/mm3 (4.6-6.20); White Blood Count 8.5 K/mm3 (4.5-10.0)
[2020-04-12] MEDS: METOCLOPRAMIDE HCL 2.5 MG TABLET PO ×2 (06:16→11:37)
[2020-04-12 06:27] LABS: CRP 1.1 mg/dL (<1.0); Lipase 302 U/L (23-300)
[2020-04-12 06:28] LABS: Albumin Level 3.6 g/dL (3.5-5.1); Blood Urea Nitrogen 47 mg/dL (9-20); Calcium 8.8 mg/dL (8.4-10.2); Carbon Dioxide 21 mmol/L (22-30); Chloride 96 mmol/L (98-107); Estimated CRCL calculation 9 ml/min; Estimated Glomerular Filt Rate 8; Glucose 244 mg/dL (75-110); Magnesium 3.4 mg/dL (1.6-2.3); Phosphorus 7.1 mg/dL (2.5-4.5); Potassium 4.6 mmol/L (3.4-5.0); Sodium 128 mmol/L (137-145)
[2020-04-12 08:14] VITALS: PULSE 74
[2020-04-12] MEDS: CHOLECALCIFEROL 1,000 UNIT TABLET 4000 UNITS PO (08:14)
[2020-04-12] MEDS: ASPIRIN 81 MG CHEWABLE TABLET PO (08:14)
[2020-04-12] MEDS: carvediloL 25 MG TABLET 50 MG PO (08:14)
[2020-04-12] MEDS: DOCUSATE SODIUM 100 MG CAPSULE PO (08:15)
[2020-04-12] MEDS: LOSARTAN POTASSIUM 100 MG TABLET PO (08:15)
[2020-04-12] MEDS: FUROSEMIDE 80 MG TABLET PO (08:15)
[2020-04-12] MEDS: CLONIDINE HCL 0.2 MG TABLET PO ×2 (08:15→12:36)
[2020-04-12] MEDS: CLOPIDOGREL BISULFATE 75 MG TABLET PO (08:15)
[2020-04-12] MEDS: NICOTINE (*PBKC) 21 MG PATCH 1 PATCH TRANSDERM (08:15)
[2020-04-12 08:16] LABS: Glucose Point of Care 246 (65-105)
[2020-04-12] MEDS: TAMSULOSIN HCL 0.4 MG CAPSULE PO (08:16)
[2020-04-12] MEDS: polyethylene glycoL 3350 17 GM POWD.PACK PO (08:16)
[2020-04-12] MEDS: VITAMIN B CMPLX/VIT C/FOLIC AC 1 CAPSULE 1 CAP PO (08:16)
[2020-04-12] MEDS: PANTOPRAZOLE 40 MG TABLET PO (08:16)
[2020-04-12] MEDS: SERTRALINE HCL 25 MG TABLET PO (08:16)
[2020-04-12] MEDS: INSULIN ASPART (*BKC) 100 UNITS/ML 6 UNITS SUB-Q ×2 (08:17→11:37)
[2020-04-12] MEDS: INSULIN GLARGINE (*BKC) 100 UNITS/ML 12 UNITS SUB-Q (08:18)
[2020-04-12 11:54] LABS: Glucose Point of Care 335 (65-105)
--- NOTE | 2020-04-12 13:11 | PM.DS ---
DS: Discharge Diagnosis Discharge Diagnosis (1) Fecal impaction: Code(s): K56.41 - Fecal impaction Status: Acute Assessment and Plan: Patient found to have fecal impaction by imaging. While in the ER, he already had multiple BMs probably related to medication taken from home. We continued Miralax and Colace. Discussed with patient about need to titrate medications to ensure one soft BM daily or QOD. He voices understanding. (2) Gastroparesis: Code(s): K31.84 - Gastroparesis Status: Acute Assessment and Plan: CT scan showing debris in the stomach. [place] better after a bought of emesis overnight. We advanced his diet and add low dose reglan. He tolerated oral intake well. He will need more formal study to verify diagnosis but high likelihood due to his symptoms and DM duration. (3) Elevated lipase: Code(s): R74.8 - Abnormal levels of other serum enzymes Status: Acute Assessment and Plan: Probably related to above and from lack of clearance. No evidence of acute pancreatitis by CT. Repeat lipase trended down. (4) End stage renal disease: Code(s): N18.6 - End stage renal disease Status: Acute Assessment and Plan: HD on Monday and completed the treatment. We held on consulting nephrology but they were informed on the patient's admission. (5) Type 1 diabetes mellitus: Qualifiers: Chronic kidney disease stage: on chronic dialysis Diabetes mellitus complication detail: with chronic kidney disease Diabetes mellitus complication status: with kidney complications Qualified Code(s): E10.22 - Type 1 diabetes mellitus with diabetic chronic kidney disease; N18.6 - End stage renal disease; Z99.2 - Dependence on renal dialysis Code(s): E10.9 - Type 1 diabetes mellitus without complications Status: Chronic Assessment and Plan: Last A1c 8.4 per patient (8.1 here in Dec). Glucose was labile. He dropped to 31 at one point but was without symptoms. He was diaphoretic at one point but glucose 99. With treatment of the hypoglycemia, he climbed to 332. Patient to follow up with his provider for further diabetes management. Labile glucose could also be related to gastroparesis. (6) Tobacco dependence: Code(s): F17.200 - Nicotine dependence, unspecified, uncomplicated Status: Acute Assessment and Plan: Congratulated patient on trying to stop smoking. Warned him of not using the patch while smoking. DS: Summary Hospital Course Reason for hospitalization: 54yo male here for abd pain and found to have fecal impaction. Please see H&P for details. Hospital Course: As above Time Spent with Patient Time attestation: Total time spent providing and/or coordinating discharge services:31 minutes Time spent: Greater than 30 minutes Exam Narrative: Exam Narrative: AF 162/67 74 Gen - NARD sitting up at side of bed feeding himself lunch Chest - CTA bilateally, nml RR CV - RRR S1/S2 Abd - Soft, NT/ND, Positive BS Ext - No left pedal edema; right BKA. Thrill/bruit LUE. Psych - Nml mood and affect Skin - Warm and dry DS: Data Data Completed and Pending Labs on day of discharge: Labs from last 24 hours 04/12/20 04/12/20 04/12/20 11:32 08:14 05:57 WBC RBC Hgb Hct MCV MCH MCHC RDW Plt Count MPV Immature Gran % (Auto) Neut % (Auto) Lymph % (Auto) Blanco % (Auto) Eos % (Auto) Baso % (Auto) Lymph # (Auto) [place] # (Auto) Eos # (Auto) Baso # (Auto) Abs Immat Gran (auto) Absolute Neuts (auto) Absolute Nucleated RBC Nucleated RBC % Sodium Potassium Chloride Carbon Dioxide BUN Creatinine Estim Creat Clear Calc Estimated GFR Glucose POC Capillary Glucose 335 H 246 H Calcium Phosphorus Magnesium C-Reactive Protein 1.1 Albumin Lipase 302 H 03/15
--- NOTE | 2020-04-20 10:48 | PC.NURSE ---
Blood cx are negative.Dr. Vaishali rasmussen.
== END 2020-04-12 14:15 | disposition home or self-care (01) ==
LOC: ANHED 22:47 → ANH3MED 23:12
PROVIDERS: Admitting Provider Internal Medicine; Emergency Provider Emergency Medicine; PCP Emergency Medicine; Visit Provider Internal Medicine
DX: K56.41 Fecal impaction (principal); E10.43 Type 1 diabetes mellitus with diabetic autonomic (poly)neuropathy; K31.84 Gastroparesis; R74.8 Abnormal levels of other serum enzymes; E10.22 Type 1 diabetes mellitus with diabetic chronic kidney disease; I13.2 Hypertensive heart and chronic kidney disease with heart failure and with stage 5 chronic kidney disease, or end stage renal disease; I50.9 Heart failure, unspecified; N18.6 End stage renal disease; Z99.2 Dependence on renal dialysis; E10.319 Type 1 diabetes mellitus with unspecified diabetic retinopathy without macular edema; E10.65 Type 1 diabetes mellitus with hyperglycemia; F17.210 Nicotine dependence, cigarettes, uncomplicated; I25.10 Atherosclerotic heart disease of native coronary artery without angina pectoris; I25.2 Old myocardial infarction; F41.8 Other specified anxiety disorders; E55.9 Vitamin D deficiency, unspecified; N40.0 Benign prostatic hyperplasia without lower urinary tract symptoms; K21.9 Gastro-esophageal reflux disease without esophagitis; Z79.4 Long term (current) use of insulin; Z79.899 Other long term (current) drug therapy
CPT/HCPCS: 36415; 71045; 71046; 74176; 80048; 80053; 80069; 82948; 83690; 83735; 85025; 86140; 87040; 99285; A9270; G0378; J1815

== ENCOUNTER 2020-04-25 22:16 | Observation (INO) | payer MEDICARE, MEDICAID, SELFPAY ==
--- NOTE | ~2020-04-25 | XR_ITS ---
EXAMINATION: XR chest 1V portable INDICATION: Hypotension TECHNIQUE: Portable AP chest at 2243 hours COMPARISON: 04/12/2020 FINDINGS: The lungs are free of acute opacities. There is no pleural effusion or pneumothorax. The ca rdiomediastinal silhouette is normal. There is mild osteoarthritis of the shoulders. IMPRESSION: 1. No acute cardiopulmonary abnormality. Reviewed, dictated and finalized at location A.
--- NOTE | ~2020-04-25 | CT_ITS ---
EXAMINATION: CT abdomen pelvis wo con DATE: 04/25/2020 23:42 INDICATION: Nausea and vomiting TECHNIQUE: Computed tomography (CT) of the abdomen and was performed without intravenous contrast. Th e dose-length product (DLP) was 334.02 mGy-cm. Automated exposure control and iterative reconstructio n technique were employed. COMPARISON: 04/10/2020 FINDINGS: There is atelectasis and increasing airspace opacity of the right middle lobe. Dependent at electasis is noted. The heart size is normal. The liver, spleen, pancreas, and adrenal glands are nor mal. There is mild gallbladder distention. Extensive vascular calcifications are noted in the otherwi se normal-appearing kidneys. No pathologically enlarged abdominal or pelvic lymph nodes are identifie d. A moderate volume of colonic stool is present. There is no free intraperitoneal gas or evidence of bowel obstruction. There is calcified atherosclerosis of the aorta and many of the other arteries. T here are changes of anterior and posterior fusion procedures in the lumbar spine. Healed right-sided rib fractures are noted. IMPRESSION: 1. No CT correlate for the patient's symptoms. 2. Persistent right middle lobe airspace opacity, consistent with atelectasis and pneumonia. Reviewed, dictated and finalized at location A. IMPRESSION: 1. No CT correlate for the patient's symptoms. 2. Persistent right middle lobe airspace opacity, consistent with atelectasis a nd pneumonia.
[2020-04-25 22:15] VITALS: BP 71/55; PULSE 76; RESP 16; TEMP 36.2
--- NOTE | 2020-04-25 22:17 | ED.NAVMDI ---
HPI - Nausea/Vomiting/Diarrhea General Chief complaint: Nausea/Vomiting/Diarrhea Stated complaint: lerthargic, n/v History of Present Illness HPI Narrative: 54 yo male w/ h/o ESRD on dialysis, DM, HTn, constipation, Nausea and vomiting for the past 3 days. Not tolerating anything PO. Mild diarrhea a few days ago. Today became lethargic and EMS was called. They found him to hypotensive to about 60/40. No pain, fever, syncope, melena. Related Data Home Medications Medication Instructions Recorded Confirmed Lantus Solostar U-100 Insulin 10 unit SUBCUT HS 02/05/20 04/26/20 Renal Vitamin 1 tablet PO DAILY 02/05/20 04/26/20 Vitamin D3 4,000 unit PO DAILY 02/05/20 04/26/20 aspirin [Aspirin Childrens] 81 mg PO DAILY 02/05/20 04/26/20 calcitriol 0.25 mcg PO 3XW 02/05/20 04/26/20 carvedilol 25 mg PO BID 02/05/20 04/26/20 clopidogrel 75 mg PO DAILY 02/05/20 04/26/20 furosemide 80 mg PO BID 02/05/20 04/26/20 insulin lispro [Humalog KwikPen 6 unit SUBCUT TIDWM 02/05/20 04/26/20 Insulin] nitroglycerin 0.4 mg SUBLINGUAL Q5MIN PRN 02/05/20 04/26/20 pantoprazole 40 mg PO DAILY 02/05/20 04/26/20 tamsulosin 0.4 mg PO DAILY 02/05/20 04/26/20 clonidine HCl 0.2 mg PO TID 03/11/20 04/26/20 oxycodone 5 mg PO Q6H PRN 03/11/20 04/26/20 B complex with C 20-folic acid 1 cap PO DAILY 04/10/20 04/26/20 losartan 100 mg PO DAILY 04/10/20 04/26/20 Lantus Solostar U-100 Insulin 12 unit SUBCUT QAM 04/11/20 04/26/20 calcium carbonate [Tums] 200 mg PO PRN PRN 04/11/20 04/26/20 Allergies Allergy/AdvReac Type Severity Reaction Status Date / Time scopolamine Allergy Severe Unresponsiv Verified 04/25/20 22:21 e Review of Systems Review of Systems: All systems reviewed & are unremarkable except as noted in HPI and below Constitutional: Constitutional: Denies fever(s) and Reports weakness Cardiovascular: Cardiovascular: Denies chest pain Respiratory: Respiratory: Denies dyspnea Gastrointestinal: Gastrointestinal: Denies abdominal pain, Reports diarrhea, Reports nausea and Reports vomiting Neurologic: Reports confusion PMFSH Past Medical History Medical History Anxiety Benign prostatic hyperplasia CHF (congestive heart failure) Chronic anemia Coronary artery disease With non STEMI in December 2019, with stent placed to the LAD. Depression with anxiety End-stage renal disease on hemodialysis Flash pulmonary edema GERD (gastroesophageal reflux disease) Hypertension Seizure Secondary to hypoglycemia. Tobacco dependence Type 1 diabetes mellitus Diagnosed at the age of 10. Complicated by retinopathy, nephropathy, and neuropathy. Hemoglobin A1c was 8.1% in December 2019. Vitamin D deficiency disease Surgical History Surgical History History of spinal surgery Neurostimulator in place. Status post below knee amputation of right lower extremity December 02, 2019 at [facility]. Status post cataract extraction Status post hemorrhoidectomy Family History Family History Father Hypertension Sibling Multiple myeloma Hypertension Sibling Hypertension Sibling Hypertension Father Hypertension Sibling Multiple myeloma Mother Acute myelogenous leukemia Sibling Hypertension Sibling Hypertension Sibling Hypertension Social History Social History Social History: The patient lives in [place] with his and daughter. He is on disability. He designates his , Rosana, as his surrogate decision maker and he wishes to be a full code. Smokes 1ppd since age 17yo. He is trying to quit and down to 3-5cig/day now. He smokes marijuana daily. He denies significant alcohol use. Hx of cocaine use but no other drug use. Smoking packs per day: 2 Smoking cigarettes per day: 40.0 Years smoke
--- NOTE | 2020-04-25 22:25 | ECG_ITS ---
Measurements Intervals [place] Rate: 75 P: 68 OK: 166 QRS: 79 QRSD: 83 T: 127 QT: 414 QTc: 465 Interpretive Statements SINUS RHYTHM LEFT VENTRICULAR HYPERTROPHY AND ST-T CHANGE ST-T WAVE ABNORMALITY IN ANTEROLAT/INF LEADS- CONSIDER ISCHEMIA ABNORMAL ECG Electronically Signed On 04-26-2020 8:05:44 CDT by Edmond Elias D.O.
[2020-04-25] MEDS: SODIUM CHLORIDE 0.9% IV 1,000 ML 999 ML IV CONT (22:30)
[2020-04-25 22:32] VITALS: BP 83/50; PULSE 70; RESP 16; O2SAT 97
[2020-04-25 22:37] LABS: Basophils Absolute Auto 0.1 K/mm3 (0.0-0.1); Basophils Percent Auto 0.8 % (0.2-1.2); Eosinophils Absolute Auto 0.1 K/mm3 (0-0.3); Eosinophils Percent Auto 0.7 % (0-4.4); Hematocrit 48.6 % (42.0-52.0); Hemoglobin 15.1 g/dL (14.0-18.0); Immature Granulocyte Absolute 0.04 K/mm3 (0.00-0.031); Immature Granulocyte Percent A 0.4 % (0-0.5); Lymphocytes Absolute Auto 1.85 K/mm3 (0.9-3.2); Lymphocytes Percent Auto 20.1 % (18.3-44.2); Mean Corpuscular HGB Conc 31.1 g/dl (32-36); Mean Corpuscular Hemoglobin 31.3 pg (26-34); Mean Corpuscular Volume 100.6 fl (80-100); Mean Platelet Volume 9.8 fl (7.4-10.4); Monocytes Absolute Auto 0.8 K/mm3 (0.1-0.6); Monocytes Percent Auto 8.7 % (2.6-8.5); Neutrophils Absolute Auto 6.4 K/mm3 (1.3-6.7); Neutrophils Percent Auto 69.3 % (45.5-73.1); Platelet Count Result 505 k/mm3 (150-375); Red Blood Count 4.83 M/mm3 (4.6-6.20); Red Cell Distribution Width 16.8 % (11.5-14.5); White Blood Count 9.2 K/mm3 (4.5-10.0)
[2020-04-25 22:52] VITALS: BP 105/55; PULSE 66; RESP 16; O2SAT 97
[2020-04-25 22:52] LABS: INR 1.1; Prothrombin Time 13.9 Seconds (11.1-14.7)
[2020-04-25 22:53] LABS: Partial Thromboplastin Time 33.2 SECONDS (22.3-36.8)
[2020-04-25 23:01] LABS: Alanine Aminotransferase 18 U/L (4-50); Alkaline Phosphatase 131 U/L (38-126); Aspartate Amino Transferase 36 U/L (17-59); Bilirubin,Total 0.6 mg/dL (0.2-1.3); Blood Urea Nitrogen 51 mg/dL (9-20); CRP 2.6 mg/dL (<1.0); Carbon Dioxide 33 mmol/L (22-30); Chloride 87 mmol/L (98-107); Estimated Glomerular Filt Rate 7; Glucose 194 mg/dL (75-110); Potassium 5.8 mmol/L (3.4-5.0); Sodium 136 mmol/L (137-145)
[2020-04-25 23:23] VITALS: BP 109/61; PULSE 67; RESP 20; O2SAT 100
[2020-04-26] VITALS (24 sets, daily range): BP systolic 78–124; BP diastolic 37–64; PULSE 68–85; RESP 12–18; TEMP 35.7–36.5; O2SAT 94–100; BMI 19.7
[2020-04-26 00:39] LABS: Lactic Acid Reflex 3.3 mmol/L (0.7-2.1)
--- NOTE | 2020-04-26 02:02 | PC.NURSE ---
This patient, Ish Corley, was admitted to IMU Room 201-01 at 0145. Patient/family oriented to hospital policies and general routines including ID bracelet, bed and alarms, visiting hours, pain management, procedures, bathroom and other care routines, personal items, smoking policy, room service/diet, and visiting hours. Valuables list has been completed. Information on how to activate the Rapid Response Team has been discussed. Patient/Family are encouraged to report perceived risks to care and to ask questions if they do not understand what they are told or what they should do.
[2020-04-26] MEDS: LACTATED RINGERS 1,000 ML 75 ML IV CONT ×2 (02:16→17:12)
[2020-04-26 03:17] LABS: Reflex Lactic Acid Yes or No Add Lactic
--- NOTE | 2020-04-26 04:22 | PC.NURSE ---
Lab notified RN, unable to obtain blood culture and repeat lactic. No other lab techs available to draw until 529.
[2020-04-26 04:58] LABS: Glucose Point of Care 89 (65-105)
[2020-04-26 07:51] LABS: Hematocrit 34.6 % (42.0-52.0); Hemoglobin 10.5 g/dL (14.0-18.0); Mean Corpuscular HGB Conc 30.3 g/dl (32-36); Mean Corpuscular Hemoglobin 31.3 pg (26-34); Mean Platelet Volume 9.4 fl (7.4-10.4); Platelet Count Result 377 k/mm3 (150-375); Red Blood Count 3.36 M/mm3 (4.6-6.20); Red Cell Distribution Width 16.9 % (11.5-14.5); White Blood Count 8.9 K/mm3 (4.5-10.0)
[2020-04-26] MEDS: DEXTROSE 50% 25 GM/50 ML SYRINGE IV PUSH (07:57)
[2020-04-26 08:03] LABS: Lactic Acid 3.8 mmol/L (0.7-2.1)
[2020-04-26 08:14] LABS: Albumin Level 3.1 g/dL (3.5-5.1); Blood Urea Nitrogen 42 mg/dL (9-20); Calcium 8.2 mg/dL (8.4-10.2); Carbon Dioxide 24 mmol/L (22-30); Chloride 96 mmol/L (98-107); Estimated CRCL calculation 10 ml/min; Estimated Glomerular Filt Rate 9; Glucose 37 mg/dL (75-110); Phosphorus 5.9 mg/dL (2.5-4.5); Potassium 4.6 mmol/L (3.4-5.0); Sodium 134 mmol/L (137-145)
[2020-04-26 08:25] LABS: Glucose Point of Care 36 (65-105)
[2020-04-26 08:25] LABS: Glucose Point of Care 138 (65-105)
--- NOTE | 2020-04-26 09:33 | PM.IMHP ---
H&P: HPI History of Present Illness Chief complaint: dehydration, esophagitis, hyperkalemia Narrative: Date of admission: 04/26/2020 Date of service: 04/26/2020, approx. 9:00 a.m. Ish Corley is a 54 year old male with a past medical history significant for ESRD, type 1 diabetes mellitus, hypertension, CHF, and multiple other comorbidities who presented to the emergency department on 04/25/2020 with complaints of nausea and vomiting. He reports he had been feeling somewhat lethargic and fatigued the past few days. He then developed nausea and vomiting and was not able to tolerate oral intake. Due to this, he developed hypoglycemia yesterday evening around 4:00 p.m. He had symptoms of diaphoresis, confusion, and weakness. He was brought to the hospital via EMS. He denied syncope or seizure activity. He denies diarrhea, however he did report he had a loose bowel movement yesterday evening. He denies hematochezia or melena. He denies any acute pain. He reports that now his nausea and vomiting have seemed to resolve. He has been tolerating oral intake today and was able to eat a solid breakfast. He reports feeling fatigued but he was able to sleep well last night. He attended his regularly scheduled dialysis appointment on Monday. He is scheduled for dialysis on Monday. He complains of some mild muscle aches, which he reports is common for him following dialysis. Upon presentation, he was found to be hypotensive at approximately 60/40. He denied dizziness or lightheadedness. At the time of my evaluation, he reports he is feeling much better and feels that he is back to his usual state of health with the exception of some fatigue. Review of Systems Review of Systems: Narrative: A 12 point review of systems was reviewed with pertinent positives and negatives as per HPI. He denies fever or chills. He denies sore throat, congestion, cough, shortness of breath, chest pain, or palpitations. He denies numbness or tingling in his extremities. Endorses urinary hesitancy, but denies dysuria, hematuria, urgency or retention. He denies anxiety or depression. [facility] Surgical History Surgical History History of spinal surgery Neurostimulator in place. Status post below knee amputation of right lower extremity December 02, 2019 at [facility]. Status post cataract extraction Status post hemorrhoidectomy Family History Family History (Updated 04/26/20 @ 09:48 by Luz Maria Mackey PA-C) Father Hypertension Sibling Multiple myeloma Hypertension Mother Acute myelogenous leukemia Heart disease Social History Social History (Updated 04/26/20 @ 09:50 by Luz Maria Mackey PA-C) Social History: Mr. Corley lives at home in [place] with his and daughter. He is on disability. 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 He designates his , Rosana, as his surrogate decision maker and he wishes to be a full code. Smoking packs per day: 1 Smoking cigarettes per day: 20.0 Years smoked: 37 Smoking pack-years: 37.00 Smoking status: Light tobacco smoker Tobacco type: cigarettes Additional smoking assessment comments: Patient has cut down to 1-2 cigarettes/day for the past month. Alcohol intake: never Alcohol use details: Patient has not drank alcohol in many years. Substance use: current Substance use type: marijuana Other substance usage details: Patient smokes marijuana daily. Last use: 04/24/20 Living arrangements: with family Gender identity (if verbalized by the patient): Male Spiritual care concerns: No Agree to blood products: Yes Meds Home Medications and Allergies Home Medications Medication Instructions Recorded Confirmed Type Lantus Solostar U-100 Insulin 10 unit SUBCUT HS 02/05/20 04/26/20 History Renal Vitamin 1 tablet PO DAILY 02/05/20 04/26/20 History Vitamin D3 4,000 unit PO DAILY 02/05/20
[2020-04-26] MEDS: SERTRALINE HCL 25 MG TABLET PO (11:04)
[2020-04-26] MEDS: DOCUSATE SODIUM 100 MG CAPSULE PO ×2 (11:04→19:55)
[2020-04-26] MEDS: VITAMIN B CMPLX/VIT C/FOLIC AC 1 CAPSULE 1 CAP PO (11:04)
[2020-04-26] MEDS: CHOLECALCIFEROL 1,000 UNIT TABLET 4000 UNITS PO (11:04)
[2020-04-26] MEDS: ASPIRIN 81 MG CHEWABLE TABLET PO (11:04)
[2020-04-26] MEDS: TAMSULOSIN HCL 0.4 MG CAPSULE PO (11:04)
[2020-04-26] MEDS: FAMOTIDINE 20 MG/2 ML VIAL IV PUSH ×2 (11:05→19:55)
[2020-04-26] MEDS: CLOPIDOGREL BISULFATE 75 MG TABLET PO (11:05)
[2020-04-26 11:48] LABS: Glucose Point of Care 247 (65-105)
[2020-04-26] MEDS: INSULIN ASPART (*BKC) 100 UNITS/ML SUB-Q ×2 (13:00→17:35)
--- NOTE | 2020-04-26 14:29 | PM.CNNEP ---
Assessment and Plan Assessment and plan (1) ESRD (end stage renal disease): Code(s): N18.6 - End stage renal disease Status: Chronic (2) Acute hypotension: Code(s): I95.9 - Hypotension, unspecified Status: Acute (3) Acute hyperkalemia: Code(s): E87.5 - Hyperkalemia Status: Acute (4) Nausea and vomiting: Code(s): R11.2 - Nausea with vomiting, unspecified Status: Acute (5) Diabetes: Qualifiers: Diabetes mellitus complication detail: with other circulatory complications Diabetes mellitus complication status: with circulatory complication Diabetes mellitus type: type 1 Qualified Code(s): E10.59 - Type 1 diabetes mellitus with other circulatory complications Code(s): E11.9 - Type 2 diabetes mellitus without complications Status: Acute Assessment and Plan: . Additional Plan Ish has end-stage renal disease. He is due for dialysis tomorrow and since he has no critical electrolyte abnormalities and his volume status is probably more on the volume depleted side than volume overload, I think he can wait for dialysis tomorrow in effort to maintain stability of his schedule of Monday. His nausea and vomiting appear to have resolved as has his hypotension improved visibly all of these symptoms related to volume depletion in general although I am unclear what precipitated this unless perhaps maybe he had some underlying viral gastroenteritis. For now, I would continue his home medications as is with some parameters on his blood pressure medications as he has been known to have issues with hypertensive urgency in the past as well. I will continue follow his CKD parameters and adjust his medications and dialysis prescription as deemed necessary to maintain stability in these parameters Thank you for allowing me to participate in the care this patient. History of Present Illness Reason for Consult Consult date: 04/26/20 Reason for consult: end stage renal disease Chief Complaint Chief complaint: dehydration, esophagitis, hyperkalemia History of Present Illness Narrative: The patient is a 54 year old male with a past medical history as outlined below who presented to [facility] ER with complaints of nausea and vomiting. The patient states that over last few days he has noticed himself to be somewhat more lethargic and fatigued. Following the symptoms he then started having nausea and vomiting and was unable to tolerate any type of oral intake. Because of his decreased oral intake, he notes episodes of hypoglycemia yesterday afternoon. The symptoms of hypoglycemia included diaphoresis, confusion, and weakness which subsequently led to his presentation to the emergency room. He gave no symptoms with regard to syncope, seizure activity, fevers, chills, chest pain, or shortness of breath. He does report though that with the nausea and subsequent vomiting it seemed that his overall condition seemed to improve. He has no apparent distress at this time Renal consultation was requested due to his end-stage renal disease. The patient normally dialyzes on a Monday schedule at [facility] under the care of Dr. Luke Huynh. He did receive his dialysis treatment on Monday (04/24/2020) without any issues or problems. Apparently, there was some concern that he would require dialysis today as his admission labs demonstrate a potassium of 5.8. However repeat labs this morning show his sodium so his potassium level has improved and he has no other acute indications for dialysis at this time. Aside for some mild fatigue, he otherwise appears to be close to his baseline status. Review of Systems Review of Systems: Narrative: As per HPI. [facility] Past Medical History Medical History (Updated 04/26/20 @ 14:33 by Jony Martino MD) Anxiety Benign prostatic hyperplasia CHF (congestive heart failure) C
[2020-04-26 16:27] LABS: Hematocrit 39.4 % (42.0-52.0); Hemoglobin 12.3 g/dL (14.0-18.0)
[2020-04-26 16:41] LABS: Hemoglobin A1C 8.5 % (<5.7)
[2020-04-26 17:03] LABS: Glucose Point of Care 273 (65-105)
[2020-04-26 18:30] LABS: Potassium 5.5 mmol/L (3.4-5.0)
[2020-04-26] MEDS: ATORVASTATIN 40 MG TABLET PO (19:55)
[2020-04-26 20:03] LABS: Glucose Point of Care 306 (65-105)
--- NOTE | 2020-04-26 21:59 | PC.NURSE ---
Pt requested Ativan 1mg. I asked this is not a home med and w his history of resp issues the answer was no.
[2020-04-27] VITALS (26 sets, daily range): BP systolic 124–164; BP diastolic 57–80; PULSE 80–93; RESP 12–18; TEMP 35.8–37; O2SAT 96–98
[2020-04-27 01:25] LABS: Glucose Point of Care 403 (65-105)
[2020-04-27] MEDS: ONDANSETRON INJ 4 MG/2 ML VIAL IV PUSH (01:51)
[2020-04-27 02:53] LABS: Glucose Point of Care > 500 (65-105)
[2020-04-27] MEDS: INSULIN GLARGINE (*BKC) 100 UNITS/ML 10 UNITS SUB-Q (03:05)
[2020-04-27] MEDS: INSULIN ASPART (*BKC) 100 UNITS/ML 8 UNITS SUB-Q (03:05)
[2020-04-27 04:45] LABS: Basophils Absolute Auto 0.1 K/mm3 (0.0-0.1); Basophils Percent Auto 0.6 % (0.2-1.2); Eosinophils Absolute Auto 0.3 K/mm3 (0-0.3); Eosinophils Percent Auto 2.4 % (0-4.4); Hematocrit 37.1 % (42.0-52.0); Hemoglobin 11.7 g/dL (14.0-18.0); Immature Granulocyte Absolute 0.05 K/mm3 (0.00-0.031); Immature Granulocyte Percent A 0.4 % (0-0.5); Lymphocytes Absolute Auto 2.15 K/mm3 (0.9-3.2); Lymphocytes Percent Auto 16.1 % (18.3-44.2); Mean Corpuscular HGB Conc 31.5 g/dl (32-36); Mean Corpuscular Hemoglobin 30.9 pg (26-34); Mean Corpuscular Volume 97.9 fl (80-100); Mean Platelet Volume 9.4 fl (7.4-10.4); Monocytes Absolute Auto 0.8 K/mm3 (0.1-0.6); Monocytes Percent Auto 5.7 % (2.6-8.5); Neutrophils Percent Auto 74.8 % (45.5-73.1); Platelet Count Result 453 k/mm3 (150-375); Red Blood Count 3.79 M/mm3 (4.6-6.20); Red Cell Distribution Width 16.4 % (11.5-14.5); White Blood Count 13.3 K/mm3 (4.5-10.0)
[2020-04-27 04:55] LABS: Lactic Acid 2.3 mmol/L (0.7-2.1)
[2020-04-27 05:08] LABS: Alanine Aminotransferase 17 U/L (4-50); Albumin Level 4.4 g/dL (3.5-5.1); Alkaline Phosphatase 99 U/L (38-126); Aspartate Amino Transferase 26 U/L (17-59); Bilirubin,Total 0.5 mg/dL (0.2-1.3); Blood Urea Nitrogen 68 mg/dL (9-20); Calcium 8.9 mg/dL (8.4-10.2); Carbon Dioxide 26 mmol/L (22-30); Chloride 87 mmol/L (98-107); Estimated CRCL calculation 6 ml/min; Estimated Glomerular Filt Rate 6; Glucose 433 mg/dL (75-110); Magnesium 4.7 mg/dL (1.6-2.3); Phosphorus 7.5 mg/dL (2.5-4.5); Potassium 5.5 mmol/L (3.4-5.0); Sodium 129 mmol/L (137-145)
--- NOTE | 2020-04-27 08:19 | PM.PNNEP ---
Progress Note: A&P Assessment and Plan (1) ESRD (end stage renal disease): Code(s): N18.6 - End stage renal disease Status: Chronic Assessment and Plan: Due for dialysis today. If he is discharged he can go to his 3rd shift dialysis treatment. (2) Acute hypotension: Code(s): I95.9 - Hypotension, unspecified Status: Acute (3) Acute hyperkalemia: Code(s): E87.5 - Hyperkalemia Status: Acute Assessment and Plan: Potassium is stable. Slightly high. Actually really good for him. (4) Nausea and vomiting: Code(s): R11.2 - Nausea with vomiting, unspecified Status: Acute Assessment and Plan: This is resolved. (5) Diabetes: Qualifiers: Diabetes mellitus complication detail: with other circulatory complications Diabetes mellitus complication status: with circulatory complication Diabetes mellitus type: type 1 Qualified Code(s): E10.59 - Type 1 diabetes mellitus with other circulatory complications Code(s): E11.9 - Type 2 diabetes mellitus without complications Status: Acute Assessment and Plan: . Subjective Date/time seen: 04/27/20 08:19 Interval history: Patient is alert. No shortness of breath. Blood pressure is back up to speed. He feels okay and wants to go home. Review of Systems Cardiovascular: Cardiovascular: Reports no additional cardiovascular complaints Respiratory: Respiratory: Reports no additional respiratory complaints Gastrointestinal: Gastrointestinal: Reports no additional gastrointestinal complaints Genitourinary: Genitourinary: Reports no additional male genitourinary complaints Exam Narrative: Exam Narrative: WDWN in NAD skin no rash head ncat lungs clear cor reg no rub abd BS+ nontender and soft ext no edema. Objective Data Vital Signs Vital Signs: Vital Signs - 24 hr 04/26/20 10:00 04/26/20 10:17 04/26/20 11:52 Temperature 35.7 C L Pulse Rate 74 80 80 Respiratory Rate 12 Blood Pressure 111/62 111/62 Pulse Oximetry 94 04/26/20 11:58 04/26/20 12:00 04/26/20 14:07 Temperature Pulse Rate 80 79 83 Respiratory Rate Blood Pressure 123/58 L 112/62 Pulse Oximetry 04/26/20 16:00 04/26/20 18:09 04/26/20 20:00 Temperature 36.0 C L Pulse Rate 80 80 69 Respiratory Rate 16 Blood Pressure 110/64 Pulse Oximetry 100 04/26/20 20:03 04/26/20 22:00 04/26/20 23:57 Temperature 35.9 C L 35.7 C L Pulse Rate 80 82 79 Respiratory Rate 18 18 Blood Pressure 104/37 L 117/48 L Pulse Oximetry 96 99 04/27/20 00:00 04/27/20 02:00 04/27/20 04:00 Temperature Pulse Rate 83 85 88 Respiratory Rate Blood Pressure Pulse Oximetry 04/27/20 04:31 04/27/20 06:00 04/27/20 08:00 Temperature 35.8 C L 36.1 C L Pulse Rate 88 82 84 Respiratory Rate 18 18 Blood Pressure 149/57 H 158/74 H Pulse Oximetry 98 98 Intake/Output Intake/Output: Intake & Output 04/24/20 04/25/20 04/26/20 04/27/20 23:59 23:59 23:59 23:59 Intake Total 1000 2716 Balance 1000 2716 Meds/Results Medications: Active Medications Generic Name Dose Route Start Last Admin Trade Name Freq PRN Reason Stop Dose Admin Aspirin 81 mg 04/26/20 09:00 04/26/20 11:04 Aspirin Chewable PO 81 mg DAILY MARTHA Administration Atorvastatin Calcium 40 mg 04/26/20 21:00 04/26/20 19:55 Lipitor PO 40 mg HS MARTHA Administration Calcitriol 0.25 mcg 04/27/20 09:00 Rocaltrol PO [id number] MARTHA Calcium Carbonate 200 mg 04/26/20 10:20 Tums PO PRN PRN Indigestion Carvedilol 25 mg 04/27/20 09:00 Coreg PO Q12HR MARTHA Clonidine HCl 0.2 mg 04/27/20 09:00 Catapres PO TID MARTHA Clopidogrel Bisulfate 75 mg 04/26/20 09:00 04/26/20 11:05 Plavix PO 75 mg DAILY MARTHA Administration Dextrose 12.5 gm 04/26/20 05:00 04/26/20 07:57 Dextrose 50% Syringe IV PUSH 12.5 gm PRN PRN Administration
[2020-04-27 08:29] LABS: Glucose Point of Care 222 (65-105)
[2020-04-27] MEDS: CLOPIDOGREL BISULFATE 75 MG TABLET PO (08:36)
[2020-04-27] MEDS: ASPIRIN 81 MG CHEWABLE TABLET PO (08:36)
[2020-04-27] MEDS: VITAMIN B CMPLX/VIT C/FOLIC AC 1 CAPSULE 1 CAP PO (08:37)
[2020-04-27] MEDS: carvediloL 25 MG TABLET PO (08:39)
[2020-04-27] MEDS: calcitrioL 0.25 MCG CAPSULE PO (08:39)
--- NOTE | 2020-04-27 08:53 | PC.NURSE ---
Pt transferred to diaylsis via bed.
--- NOTE | 2020-04-27 10:10 | PC.NURSE ---
Re port given to ADILENE Yost @ 1010. Pt currently in dialysis. ADILENE Lyn in dialysis notified of room change and will call report to Ritika at end of dialysis. Pt will be transferred via bed from dialysis to [facility].
--- NOTE | 2020-04-27 13:15 | PC.NURSE ---
Received patient from dialysis via bed with staff. Patient settled in room. No distress noted. No c/o pain. Blood sugar checked and is in the 170s. Telemetry placed on patient. Called Luz Maria BECERRA and left voice message concerning a.m. Lantus dose. Awaiting call back.
[2020-04-27 13:29] LABS: Glucose Point of Care 171 (65-105)
[2020-04-27] MEDS: CHOLECALCIFEROL 1,000 UNIT TABLET 4000 UNITS PO (13:36)
[2020-04-27] MEDS: CLONIDINE HCL 0.2 MG TABLET PO ×2 (13:37→16:57)
[2020-04-27] MEDS: DOCUSATE SODIUM 100 MG CAPSULE PO (13:37)
[2020-04-27] MEDS: SERTRALINE HCL 25 MG TABLET PO (13:37)
[2020-04-27] MEDS: FAMOTIDINE 20 MG/2 ML VIAL IV PUSH (13:37)
[2020-04-27] MEDS: TAMSULOSIN HCL 0.4 MG CAPSULE PO (13:37)
[2020-04-27] MEDS: INSULIN ASPART (*BKC) 100 UNITS/ML 6 UNITS SUB-Q ×2 (13:43→16:56)
--- NOTE | 2020-04-27 14:58 | PM.DS ---
DS: Admitting Diagnosis Admitting Diagnosis Admitting Diagnosis: Hypotension, unspecified DS: Discharge Diagnosis Discharge Diagnosis (1) Acute hypotension: Code(s): I95.9 - Hypotension, unspecified Status: Acute Assessment and Plan: Blood pressure was noted to be as low 60/40 upon presentation. This acute decrease may been related to dehydration as patient was not tolerating oral intake given recent nausea and vomiting. He was not orthostatic. Pressures improved with gentle IV fluids. His antihypertensives were held during his stay. Given his history of uncontrolled HTN and hypertensive urgency, his antihypertensives were resumed at discharge without adjustments. However, he was instructed to monitor his BP regularly at home and hold medications if hypotensive. He was also instructed to record BP readings for PCP review to determine if antihypertensive regimen adjustments are required. (2) Acute hyperkalemia: Code(s): E87.5 - Hyperkalemia Status: Acute Assessment and Plan: Potassium was 5.8 on presentation. EKG was performed with no evidence of arrhythmia and no peaked T-waves were noted. Potassium improved upon repeat. He again developed hyperkalemia on 04/27 but was due for dialysis which improved levels. He was seen in consultation by nephrology who determined his potassium level to be acceptable. (3) Hypoglycemia: Code(s): E16.2 - Hypoglycemia, unspecified Status: Acute Assessment and Plan: Patient presented with hypoglycemia at home secondary to poor oral intake due to N/V. He again had an episode of hypoglycemia during his stay at 36 which stabilized with D50. Insulin was held. Blood sugars stabilized with improvement of oral intake. (4) Lactic acidosis: Code(s): E87.2 - Acidosis Status: Acute Assessment and Plan: Patient was noted to have elevated lactic acid at 3.8 with no evidence of infection or ischemia. This may have been related to recent nausea and vomiting as well as dehydration. Levels improved. (5) End stage renal disease: Code(s): N18.6 - End stage renal disease Status: Acute Assessment and Plan: Patient is established with Dr. Huynh and is on hemodialysis. He underwent dialysis on 04/27/20. He will continue his MWF schedule. (6) Type 1 diabetes mellitus: Qualifiers: Chronic kidney disease stage: on chronic dialysis Diabetes mellitus complication detail: with chronic kidney disease Diabetes mellitus complication status: with kidney complications Qualified Code(s): E10.22 - Type 1 diabetes mellitus with diabetic chronic kidney disease; N18.6 - End stage renal disease; Z99.2 - Dependence on renal dialysis Code(s): E10.9 - Type 1 diabetes mellitus without complications Status: Chronic Assessment and Plan: A1c is 8.5 on 04/26/20. Patient reports full compliance with insulin. His home insulin was held during his stay given hypoglycemia and he was initiated on sliding scale insulin. His blood sugars became elevated without insulin but stabilized. No changes were made to his insulin regimen. We discussed monitoring blood sugars closely and signs of hypoglycemia. (7) Chronic anemia: Code(s): D64.9 - Anemia, unspecified Status: Acute Assessment and Plan: Patient has chronic anemia secondary to end-stage renal disease. H&H remained consistent with baseline. (8) Tobacco dependence: Code(s): F17.200 - Nicotine dependence, unspecified, uncomplicated Status: Acute Assessment and Plan: Patient has recently cut down his smoking substantially and now is smoking 1-2 cigarettes per day. I congratulated him on his significant reduction. He plans to continue to cut cigarettes out completely and I spent 4 minutes discussing complete smoking cessation with him. DS: Summary Hospital Course Reason for hospitalization: [facility]
[2020-04-27 15:22] LABS: Potassium 4.3 mmol/L (3.4-5.0)
--- NOTE | 2020-04-27 15:50 | PM.EVENT ---
Event Note Event Note Event Note: oN HD soniya it well Seen at 1:05pm
[2020-04-27 16:37] LABS: Glucose Point of Care 152 (65-105)
== END 2020-04-27 17:35 | disposition home or self-care (01) ==
LOC: ANHED 22:54 → ANHIMU 04-26 01:44 → ANH3MED 04-27 14:58 → ANHIMU 04-29 16:52
PROVIDERS: Admitting Provider Internal Medicine; Emergency Provider Emergency Medicine; PCP Emergency Medicine; Visit Provider Physician Assistant
DX: I95.9 Hypotension, unspecified (principal); E87.5 Hyperkalemia; E10.649 Type 1 diabetes mellitus with hypoglycemia without coma; E87.2 Acidosis; E10.22 Type 1 diabetes mellitus with diabetic chronic kidney disease; I13.2 Hypertensive heart and chronic kidney disease with heart failure and with stage 5 chronic kidney disease, or end stage renal disease; I50.9 Heart failure, unspecified; N18.6 End stage renal disease; D63.1 Anemia in chronic kidney disease; Z99.2 Dependence on renal dialysis; E10.59 Type 1 diabetes mellitus with other circulatory complications; E10.319 Type 1 diabetes mellitus with unspecified diabetic retinopathy without macular edema; E10.40 Type 1 diabetes mellitus with diabetic neuropathy, unspecified; I25.10 Atherosclerotic heart disease of native coronary artery without angina pectoris; I25.2 Old myocardial infarction; E55.9 Vitamin D deficiency, unspecified; N40.0 Benign prostatic hyperplasia without lower urinary tract symptoms; F17.210 Nicotine dependence, cigarettes, uncomplicated; F41.8 Other specified anxiety disorders; Z95.5 Presence of coronary angioplasty implant and graft; Z79.4 Long term (current) use of insulin; Z79.899 Other long term (current) drug therapy
CPT/HCPCS: 36415; 71045; 74176; 80053; 80069; 83036; 83605; 83735; 84100; 84132; 85014; 85018; 85025; 85027; 85610; 85730; 86140; 87040; 93005; 96361; 96374; 96375; 96376; 99291; A9270; G0257; G0378; J1815; J2405; J7030; J7120

== ENCOUNTER 2020-05-29 10:00 | Outpatient (RCR) | payer MEDICARE, MEDICAID, SELFPAY ==
--- NOTE | 2020-04-07 11:09 | PTOPEVAL ---
PT note 04-07-2020 Ish and his came to department today for the PT evaluation, for the diagnosis of s/p R BKA. It was initiated, he was not feeling well but wanted to try to start therapy; his blood sugar was low this morning, but he was drinking a soda and it was increasing. Vitals were taken, his BP was 79/49 and HR was 56. He began sweating more and stated- he does not look good, need to get him to the hospital. The Physical Therapy evaluation was not completed today. He is to call when ready to perform the PT evaluation and start treatment sessions. Thank you for referring Ish Corley to [facility]. Please review, sign, date and return this PT note DONTAE. I agree with and certify that the following plan of care is medically necessary. Referring Physician Date Attending Provider: Jovanny Mcbride MD *PT Outpatient Evaluation Start: 04/07/20 10:18 Document 04/07/20 10:10 ROSY (Rec: 04/07/20 11:04 ROSY [id number]) Outpatient Past Medical History Past Medical History Source of Past Medical History Patient,Family/Significant Other Neurological History Hx Seizures Yes: from hypoglycemia Cardiovascular History Hx Cardiomyopathy Yes Hx Congestive Heart Failure Yes Hx Coronary Artery Disease Yes: NSTEMI Dec 2019, stent placed to LAD Hx Hypercholesterolemia Yes Hx Hypertension Yes: not regulated very well Respiratory History Hx Chronic Obstructive Pulmonary Disease Yes (COPD) Hx Other Respiratory Disorders Yes: pulmonary edema, acute/ chronic respiratory failure Gastrointestinal History Hx Gastroesophageal Reflux Disease Yes Hx Hemorrhoids Yes: removed 12 years ago Genitourinary History Hx Dialysis Yes: Has fistula in left arm, M-W-F dialysis Hx Renal Disease Yes Hx Other Genitourinary Disorders Yes: signs of calciphylaxis Musculoskeletal History Hx Fractures Yes: left rib fx Hx Orthopedic Surgery Yes: R BKA Dec 10, 2019 Hx Spinal Surgery Yes: has had 2 back surgeries, spinal fusion and laminectomy Hematological History Hx Anemia Yes: takes folic acid Endocrine History Hx Diabetes Yes: 40+ years; not controlled HEENT History Hx Cataracts Yes: has had surgery Integumentary History Hx Other Skin Disorders Yes: hx diabetic foot ulcer R Reproductive History Hx Reproductive Disorders No Significant History Psychosocial History Hx Anxiety Yes: taking meds--lorazopram and zoloft Hx Depression Yes Hx Other Psychiatric Disorders Yes: reports anxiety with dialysis- 3 & 1/2 hours Pain History Has Past Pain Affected Your Daily Life Ye
--- NOTE | 2020-05-25 11:23 | PCPTNOTE ---
PHYSICAL THERAPY DISCHARGE 05-25-2020 Attending Provider: Jovanny Mcbride MD Patient:Ish Corley Date of :1965 The PT evaluation was initiated on 04/07/2020, but was not able to be completed due to him being ill. This account # was discharged. An evaluation was completed today, with a new account #. Therefore, this account # has been discharged. Thank you for referring Ish to [facility]. Please review, sign, date and return this discharge summary DONTAE. I have been updated about the patient's current status and I agree with discharge from the above service at this time. Referring Physician Date
== END 2020-07-06 23:59 | disposition home or self-care (01) ==
LOC: ANHPT 10:00
PROVIDERS: PCP Emergency Medicine; Visit Provider Surgery Vascular Surgery
DX: Z47.81 Encounter for orthopedic aftercare following surgical amputation (principal); Z89.511 Acquired absence of right leg below knee
CPT/HCPCS: 99199

== ENCOUNTER 2020-06-09 08:17 | Observation (INO) | payer MEDICARE, MEDICAID, SELFPAY ==
[2020-06-09] VITALS (32 sets, daily range): BP systolic 189–251; BP diastolic 75–126; PULSE 86–115; RESP 14–23; TEMP 36.2–37.1; O2SAT 96–99; BMI 22.2
--- NOTE | ~2020-06-09 | XR_ITS ---
EXAMINATION: XR chest 2V EXAM DATE: 06/09/2020 08:57 INDICATION: Shortness of breath. TECHNIQUE: Frontal and lateral projections of the chest obtained and reviewed. Comparison is made to prior examination from 04/25/2020. FINDINGS: Mildly prominent left infrahilar markings, and some prominent peripheral reticulation. Hai gs are moderately chronically hyperinflated. Mild cardiomegaly. No pneumothorax or pleural effusion. IMPRESSION: 1. Cardiomegaly. Some prominent left infrahilar and bilateral peripheral reticulation, could indicat e mild pulmonary edema. 2. No confluent consolidation. Reviewed, dictated and finalized at location A. IMPRESSION: 1. Cardiomegaly. Some prominent left infrahilar and bilateral peripheral retic ulation, could indicate mild pulmonary edema. 2. No confluent consolidation.
--- NOTE | ~2020-06-09 | CT_ITS ---
EXAMINATION: CT abdomen pelvis wo con DATE: 06/09/2020 10:28 INDICATION: Severe acute abdominal pain TECHNIQUE: Computed tomography (CT) of the abdomen and pelvis was performed without intravenous contr ast. The dose-length product (DLP) was 285.56 mGy-cm. Automated exposure control and iterative recons truction technique were employed. COMPARISON: 04/25/2020 FINDINGS: Cardiomegaly is noted. There is interlobular septal thickening of the visualized lung bases . Within the limitations of noncontrast examination, the liver, spleen, pancreas, gallbladder, and ad renal glands are normal. There is extensive calcified atherosclerosis of the aorta and many of the ot her arteries. Cysts of the kidneys measure up to 2.2 cm on the left. No pathologically enlarged abdom inal or pelvic lymph nodes are identified. There is a greater than normal number of fluid-filled, non distended small bowel loops. There is no free intraperitoneal gas or evidence of bowel obstruction. T here are changes of anterior and posterior fusion procedures in the lumbar spine. Healed right-sided rib fractures are again noted. IMPRESSION: 1. Greater than normal number of fluid-filled, nondistended small bowel loops which may reflect enter itis. 2. Cardiomegaly with pulmonary edema of the visualized lung bases. Reviewed, dictated and finalized at location B. IMPRESSION: 1. Greater than normal number of fluid-filled, nondistended small bowel loops w hich may reflect enteritis. 2. Cardiomegaly with pulmonary edema of the visualized lung bases.
--- NOTE | 2020-06-09 08:29 | ECG_ITS ---
Measurements Intervals Spring Rate: 85 P: 62 SD: 162 QRS: 74 QRSD: 85 T: 87 QT: 382 QTc: 455 Interpretive Statements SINUS RHYTHM POSSIBLE LEFT ATRIAL ENLARGEMENT BORDERLINE ST-T WAVE ABNORMALITY- HIGH LAT/LAT LEADS BORDERLINE ECG Electronically Signed On 06-09-2020 8:43:56 CDT by Edmond Elias D.O.
[2020-06-09 08:45] LABS: Basophils Absolute Auto 0.1 K/mm3 (0.0-0.1); Basophils Percent Auto 0.5 % (0.2-1.2); Eosinophils Absolute Auto 0.6 K/mm3 (0-0.3); Eosinophils Percent Auto 4.7 % (0-4.4); Hematocrit 36.1 % (42.0-52.0); Hemoglobin 11.3 g/dL (14.0-18.0); Immature Granulocyte Absolute 0.05 K/mm3 (0.00-0.031); Immature Granulocyte Percent A 0.4 % (0-0.5); Lymphocytes Percent Auto 14.6 % (18.3-44.2); Mean Corpuscular HGB Conc 31.3 g/dl (32-36); Mean Corpuscular Hemoglobin 30.7 pg (26-34); Mean Corpuscular Volume 98.1 fl (80-100); Mean Platelet Volume 9.2 fl (7.4-10.4); Monocytes Absolute Auto 1.1 K/mm3 (0.1-0.6); Monocytes Percent Auto 9.5 % (2.6-8.5); Neutrophils Absolute Auto 8.2 K/mm3 (1.3-6.7); Neutrophils Percent Auto 70.3 % (45.5-73.1); Platelet Count Result 415 k/mm3 (150-375); Red Blood Count 3.68 M/mm3 (4.6-6.20); Red Cell Distribution Width 17.2 % (11.5-14.5); White Blood Count 11.6 K/mm3 (4.5-10.0)
[2020-06-09 08:53] LABS: Anion Gap 15.4 mmol/L (7-16); Blood Urea Nitrogen 32 mg/dL (9-20); Calcium 8.3 mg/dL (8.4-10.2); Carbon Dioxide 26 mmol/L (22-30); Chloride 103 mmol/L (98-107); Estimated CRCL calculation 14 ml/min; Estimated Glomerular Filt Rate 12; Glucose 66 mg/dL (75-110); Potassium 4.4 mmol/L (3.4-5.0); Sodium 140 mmol/L (137-145)
--- NOTE | 2020-06-09 09:13 | PC.NURSE ---
PT GLUCOSE 66, ERP CLINTON AWARE, VERBAL ORDER TO FEED PT, RENAL DIET ORDERED.
--- NOTE | 2020-06-09 09:20 | PC.NURSE ---
MEAL TRAY ORDERED AT THIS TIME, WILL RECHECK BS WHEN PT EATS.
--- NOTE | 2020-06-09 09:22 | ED.SOB ---
HPI - SOB/Dyspnea General Chief Complaint: Shortness of Breath/Dyspnea Stated Complaint: SOB Time Seen by Provider: 06/09/20 08:25 History of Present Illness HPI Narrative: Dialysis patient presents with his from home for shortness of breath. Started this morning. He had his normal dialysis yesterday, then he had salted salmon for dinner. He has swelling in his eyelids but not his scrotum or his legs. He feels short of breath with a high blood pressure. He complains of abdominal pain despite having a stool already this morning. He feels like he is constipated, and would like a laxative. He has no cough, cold, fever, chills, sweats. He has no known COVID exposure. He is a dialysis patient Wednesdays and Fridays. His access is in his left upper arm. He smokes cigarettes, and marijuana. Related Data Home Medications Medication Instructions Recorded Confirmed Lantus Solostar U-100 Insulin 10 unit SUBCUT HS 02/05/20 04/26/20 Renal Vitamin 1 tablet PO DAILY 02/05/20 04/26/20 Vitamin D3 4,000 unit PO DAILY 02/05/20 04/26/20 aspirin [Aspirin Childrens] 81 mg PO DAILY 02/05/20 04/26/20 calcitriol 0.25 mcg PO 3XW 02/05/20 04/26/20 carvedilol 25 mg PO BID 02/05/20 04/26/20 clopidogrel 75 mg PO DAILY 02/05/20 04/26/20 furosemide 80 mg PO BID 02/05/20 04/26/20 insulin lispro [Humalog KwikPen 6 unit SUBCUT TIDWM 02/05/20 04/26/20 Insulin] nitroglycerin 0.4 mg SUBLINGUAL Q5MIN PRN 02/05/20 04/26/20 pantoprazole 40 mg PO DAILY 02/05/20 04/26/20 tamsulosin 0.4 mg PO DAILY 02/05/20 04/26/20 oxycodone 5 mg PO Q6H PRN 03/11/20 04/26/20 B complex with C 20-folic acid 1 cap PO DAILY 04/10/20 04/26/20 losartan 100 mg PO DAILY 04/10/20 04/26/20 Lantus Solostar U-100 Insulin 12 unit SUBCUT QAM 04/11/20 04/26/20 calcium carbonate [Tums] 200 mg PO PRN PRN 04/11/20 04/26/20 Allergies Allergy/AdvReac Type Severity Reaction Status Date / Time scopolamine Allergy Severe Unresponsiv Verified 06/09/20 08:33 e Review of Systems Review of Systems: Narrative: CONSTITUTIONAL: Denies fever, chills, or sweats. EYES: Denies visual changes, redness, or discharge. ENT: Denies, sore throat, or otalgia. CARDIOVASCULAR: Denies chest pain, palpitations, or edema. RESPIRATORY: Denies cough, but does have dyspnea. GASTROINTESTINAL: He has abdominal pain, but not nausea, vomiting, or diarrhea. GENITOURINARY: Denies dysuria or hematuria. SKIN: Denies rash or itching. MUSCULOSKELETAL: Denies back pain, joint pain, or myalgia. NEUROLOGIC: Denies headache, numbness, or weakness. . All systems reviewed & are unremarkable except as noted in HPI and below PMFSH Past Medical History Medical History Anxiety Benign prostatic hyperplasia CHF (congestive heart failure) Chronic anemia Coronary artery disease With non STEMI in December 2019, with stent placed to the LAD. Depression with anxiety End-stage renal disease on hemodialysis Flash pulmonary edema GERD (gastroesophageal reflux disease) Hypertension Seizure Secondary to hypoglycemia. Tobacco dependence Type 1 diabetes mellitus Diagnosed at the age of 10. Complicated by retinopathy, nephropathy, and neuropathy. Hemoglobin A1c was 8.1% in December 2019. Vitamin D deficiency disease Surgical History Surgical History History of spinal surgery Neurostimulator in place. Status post below knee amputation of right lower extremity December 02, 2019 at [facility]. Status post cataract extraction Status post hemorrhoidectomy Family History Family History (Updated 04/26/20 @ 09:48 by Luz Maria Mackey PA-C) Father Hypertension Sibling Multiple myeloma Hypertension Mother Acute myelogenous leukemia Heart disease Social History Social History Social History: Mr. Corley lives at home in [place] with his and daught
--- NOTE | 2020-06-09 09:38 | PC.NURSE ---
SPOKE WITH ERP ABOUT PT GETTING KAEXELATE W/ K+ WNL AND DIALYSIS SCHEDULED FOR TODAY, ERP STATES THAT SHE IS GIVING IT TO HELP HIM POOP AND TO ONLY ADMINISTER HALF OF THE BOTTLE.
[2020-06-09] MEDS: hydrALAZINE HCL 20 MG/ML VIAL 10 MG IV PUSH (09:48)
[2020-06-09 09:52] LABS: NT Pro B Type Natriuretic Pept > 35000 PG/ML (5-100); Troponin I 0.022 ng/mL (0.000-0.034)
[2020-06-09] MEDS: SODIUM POLYSTYRENE SULFONONATE 15 GM/60 ML BTL PO (09:54)
--- NOTE | 2020-06-09 10:00 | PC.NURSE ---
RN AND ERP CLINTON CALLED TO BEDSIDE, PT SQUEEZING EYES SHUT AND ROCKING IN PLACE, C/O 08/22 ABD PAIN, MEAL REMOVED, TOLD NOT TO EAT ANYTHIGN ELSE, ERP CLINTON TO PLACE ORDERS FOR CT ABD AND PAIN MEDICATION. VS: 103PR, 40 rr, 100%, 233/126. AWAITING ORDERS.
[2020-06-09] MEDS: MORPHINE SULFATE 4 MG/ML INJ IV PUSH (10:07)
[2020-06-09 10:12] LABS: Glucose Point of Care 120 (65-105)
--- NOTE | 2020-06-09 10:27 | PC.NURSE ---
PT TO CT IN STRETCHER AT THIS TIME, RATING PAIN AT 7/10 AFTER IVP MORHPINE.
--- NOTE | 2020-06-09 10:39 | PC.NURSE ---
PT AMBULATORY TO RESTROOM AT THIS TIME, I ATTEMPTED TO HAVE PT USE URINAL OR COMMODE, PT REFUSING STATES HE WILL GET UP TO THE BATHROOM, I EXPLAINED THAT HE IS A FALL RISK AND WHY WE NEEDED TO USE THE COMMODE, PT STILL REFUSING STATES HE WILL GET UP AND OUT OF BED. I ASSISTED PT TO THE BATHROOM, AND EDUCATED ON THE RED CALL LIGHT.
--- NOTE | 2020-06-09 11:23 | PC.NURSE ---
PT FOUND UP AND WALKING IN ROOM, I ASKED PT TO RETURN TO THE BED DUE TO BEING A FALL RISK. PT STATES I KNOW THAT YOU ASKED ME NICELY TO GET UP BUT I WAS JUST JAC TO TAKE A BITE OF MY MEAL. I GOT PT BACK INTO THE BED, AND REMINDED HIM THAT HE IS NOT TO EAT ANYTHING AT THIS TIME. PT VERBALIZED UNDERSTANDING OF INSTRUCTIONS AND EDUCATION.
--- NOTE | 2020-06-09 12:16 | ADMGEN ---
This patient, Ish Corley, was admitted to IMU Room 209-. Patient/family oriented to hospital policies and general routines including ID bracelet, bed and alarms, visiting hours, pain management, procedures, bathroom and other care routines, personal items, smoking policy, room service/diet, and visiting hours. Valuables list has been completed. Information on how to activate the Rapid Response Team has been discussed. Patient/Family are encouraged to report perceived risks to care and to ask questions if they do not understand what they are told or what they should do.
[2020-06-09] MEDS: HEPARIN SODIUM 1,000 UNITS/ML VIAL 1000 UNITS IV PUSH (12:56)
[2020-06-09] MEDS: HEPARIN SODIUM 1,000 UNITS/ML VIAL 500 UNITS IV PUSH ×2 (12:59→13:59)
--- NOTE | 2020-06-09 14:20 | PM.CNNEP ---
Assessment and Plan Assessment and plan (1) ESRD needing dialysis: Code(s): N18.6 - End stage renal disease; Z99.2 - Dependence on renal dialysis Status: Acute Assessment and Plan: Ish had dialysis yesterday. His potassium is high so are doing again today. (2) CHF (congestive heart failure): Qualifiers: Heart failure chronicity: unspecified Heart failure type: unspecified Qualified Code(s): I50.9 - Heart failure, unspecified Code(s): I50.9 - Heart failure, unspecified Status: Acute Assessment and Plan: patient has volume overload. I do not see than an echocardiogram has been done. We can do this tomorrow. Clearly the pulmonary edema is from drinking too much fluid. Because he has done this overnight over again sometimes people developed a cardiomyopathy and so patient is will be more susceptible to pulmonary edema given the same amount of fluid intake. That may explain why he had pulmonary edema this morning when they took 3L of fluid off yesterday. Another possibility is that his blood pressure is so high that the increased afterload could have produced pulmonary edema as well apart from just the fluid gain. Whichever it is at all starts with drinking too much fluid. We discussed this again. We discussed the dangers of cardiomyopathy in the future if this type of fluid overload continues. At this point I suggest doing dialysis 4 times a week. I talked to bring about an he seems agreeable to come in every Monday as well. (3) Hypertensive crisis: Code(s): I16.9 - Hypertensive crisis, unspecified Status: Acute Assessment and Plan: Patient's blood pressure is very high. Will give clonidine now and resume his outpatient meds. Taking fluid off will help this as well. (4) Smoking: Code(s): F17.200 - Nicotine dependence, unspecified, uncomplicated Status: Acute Assessment and Plan: He continues to smoke. We have suggested ways to help him stop smoking such as Chantix or patches but he is not interested at this point. (5) Chronic anemia: Code(s): D64.9 - Anemia, unspecified Status: Acute Assessment and Plan: Hemoglobin is pretty good. Will hold off on EPO. (6) Renal osteodystrophy: Code(s): N25.0 - Renal osteodystrophy Status: Acute Assessment and Plan: Continue binders and education for patient to stop eating so much phosphorus (7) Hyperkalemia: Code(s): E87.5 - Hyperkalemia Status: Acute Assessment and Plan: potassium was high. Probably from dietary indiscretion. We will take potassium off with dialysis. History of Present Illness Reason for Consult Consult date: 06/09/20 Chief Complaint Chief complaint: hypertensive crisis/esrd needs dialysis/ileus History of Present Illness Narrative: Ish is a very pleasant 54-year-old gentleman who has multiple medical problems including end-stage renal disease on dialysis 3 times a week, recurrent pulmonary edema from excess fluid intake and salt intake, recurrent hyperkalemia and hyperphosphatemia, hypertension, peripheral vascular disease status post right [id number] amputation, diabetes, and depression. Patient came into dialysis yesterday. He had 6L on. They were able to get 3L off and scheduled him for another treatment today to make up the difference. He tolerated dialysis yesterday. This morning he will come he was short of breath. He came to the emergency room. His blood pressure was extremely high. He received some medications. He had a chest x-ray which showed fluid so was admitted. he is not having any chest pain. No belly pain no nausea vomiting diarrhea constipation. His fluid intake has been a problem for the last few years. He frequently comes in very volume overloaded. Sometimes he is able to come in for an extra treatment to get the rest of the fluid off. This was a planned this ti
--- NOTE | 2020-06-09 14:30 | PM.IMHP ---
H&P: HPI History of Present Illness Chief complaint: Shortness of breath. Narrative: This is a 54-year-old male with multiple medical problems to include type 1 diabetes mellitus diagnosed at the age of 10, end-stage renal disease on hemodialysis, peripheral vascular disease, and hypertension who presented to the emergency department earlier this morning via private vehicle from home for evaluation of shortness of breath. He is well known to the hospitalist service and has been admitted to us many times due to flash pulmonary edema and/ or volume overload. Dialysis days are Monday, Monday, and Monday and he did have dialysis yesterday, reportedly a complete session. This morning, not long after waking, he developed sudden onset of severe shortness of breath and he had his drive him into the emergency department. He also reports having pain throughout his chest and abdomen, almost a pressure-like pain. His blood pressures were extremely high on arrival to the emergency department and is chest x-ray once again showed pulmonary edema, and thus he was taken to dialysis. He admits to dietary indiscretion, and reports eating salmon with a lot of salt on at last night.He is no longer having any discomfort in his chest or abdomen. He also denies nausea, vomiting, and diarrhea. He has not had a cough and he denies sick contacts. Despite a blood pressure of 260/140 while getting dialysis, he reports feeling pretty good. Review of Systems Review of Systems: Narrative: Twelve systems were reviewed with pertinent positives and negatives as per HPI. Except as documented, all other systems were reviewed and are negative. [facility] Past Medical History Medical History Anxiety Benign prostatic hyperplasia CHF (congestive heart failure) Chronic anemia Coronary artery disease With non STEMI in December 2019, with stent placed to the LAD. Depression with anxiety End-stage renal disease on hemodialysis Flash pulmonary edema GERD (gastroesophageal reflux disease) Hyperkalemia Hypertension Renal osteodystrophy Seizure Secondary to hypoglycemia. Tobacco dependence Type 1 diabetes mellitus Diagnosed at the age of 10. Complicated by retinopathy, nephropathy, and neuropathy. Hemoglobin A1c was 8.1% in December 2019. Vitamin D deficiency disease Surgical History Surgical History History of spinal surgery Neurostimulator in place. Status post below knee amputation of right lower extremity December 02, 2019 at [facility]. Status post cataract extraction Status post hemorrhoidectomy Family History Family History Father Hypertension Sibling Multiple myeloma Hypertension Mother Acute myelogenous leukemia Heart disease Social History Social History Social History: Mr. Corley lives at home in [place] with his and daughter. He is on disability. 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 He designates his , Rosana, as his surrogate decision maker and he wishes to be a full code. Smoking packs per day: 1 Smoking cigarettes per day: 20.0 Years smoked: 37 Smoking pack-years: 37.00 Smoking status: Light tobacco smoker Tobacco type: cigarettes Additional smoking assessment comments: Patient has cut down to 1-2 cigarettes/day for the past month. Alcohol intake: never Substance use: current Substance use type: marijuana Other substance usage details: Patient smokes marijuana daily. Last use: 04/24/20 Gender identity (if verbalized by the patient): Male Spiritual care concerns: No Agree to blood products: Yes Meds Home Medications and Allergies Home Medications Medication Instructions Recorded Confirmed Type Lantus Solostar U-100 Insulin 10 unit SUBCUT HS 0
--- NOTE | 2020-06-09 14:33 | PM.EVENT ---
Event Note Event Note Event Note: On dialysis and tolerating it well. Blood pressure is very high in spite of removing fluid. Will try clonidine 0.2 to bring the blood pressure down. Was seen at 2:10 p.m.
--- NOTE | 2020-06-09 16:41 | PM.EVENT ---
Event Note Event Note Event Note: Patient seen for a 2nd time on dialysis. He wants to come off. He is tired of doing dialysis. We discussed at length. He was discontinued and now will restart for dry ultrafiltration to get the rest of the fluid off. We had a long conversation.
[2020-06-09] MEDS: carvediloL 25 MG TABLET PO (17:33)
[2020-06-09] MEDS: cloNIDine HCL 0.2 MG TABLET PO (17:34)
--- NOTE | 2020-06-09 17:48 | PC.NURSE ---
Patient removed telemetry. I asked patient if I could please put his telemetry back on. Patient yelled at me and said he was going to leave the hospital if I asked him again. I informed patient he has high blood pressure and he is having dialysis and we need to monitor his heart. Patient stated QUOTE I am a dumbass and I will not wear the telemetry while I am here.
[2020-06-09 18:47] LABS: Glucose Point of Care 272 (65-105)
--- NOTE | 2020-06-09 19:53 | PC.NURSE ---
Patient notified of risks of leaving AMA. Anai BECERRA notified. Follow up instructions given to patient. Patient signed AMA form. Explained in detail to patient reason to stay and get treatment. Patient states I know I'm a dumbass and thats my choice. Patient ambulated to lobby to wait for to pick him up. Charge nurse and housekeeping lead notified also.
== END 2020-06-09 19:50 | disposition left against medical advice (07) ==
LOC: ANHED 10:55 → ANHIMU 11:35
PROVIDERS: Admitting Provider Internal Medicine; Emergency Provider Emergency Medicine; PCP Emergency Medicine; Visit Provider Internal Medicine
DX: R06.02 Shortness of breath (principal); E87.70 Fluid overload, unspecified; E10.22 Type 1 diabetes mellitus with diabetic chronic kidney disease; E10.21 Type 1 diabetes mellitus with diabetic nephropathy; E10.51 Type 1 diabetes mellitus with diabetic peripheral angiopathy without gangrene; E10.42 Type 1 diabetes mellitus with diabetic polyneuropathy; E10.319 Type 1 diabetes mellitus with unspecified diabetic retinopathy without macular edema; E87.5 Hyperkalemia; I12.0 Hypertensive chronic kidney disease with stage 5 chronic kidney disease or end stage renal disease; N18.6 End stage renal disease; Z99.2 Dependence on renal dialysis; D63.1 Anemia in chronic kidney disease; F17.210 Nicotine dependence, cigarettes, uncomplicated; F12.90 Cannabis use, unspecified, uncomplicated; I16.9 Hypertensive crisis, unspecified; I25.10 Atherosclerotic heart disease of native coronary artery without angina pectoris; J81.1 Chronic pulmonary edema; R93.5 Abnormal findings on diagnostic imaging of other abdominal regions, including retroperitoneum; Z89.511 Acquired absence of right leg below knee
CPT/HCPCS: 36415; 71046; 74176; 80048; 82948; 83880; 84484; 85025; 93005; 96374; 96375; 99285; A9270; G0257; G0378; J0360; J1644; J2270; J7030

== ENCOUNTER 2020-06-17 10:00 | Outpatient (RCR) | payer MEDICARE, MEDICAID, SELFPAY ==
--- NOTE | 2020-05-25 11:10 | PTOPEVAL ---
PHYSICAL THERAPY EVALUATION AND PLAN OF TREATMENT 05-25-2020 The PT evaluation was completed for the diagnosis of s/p R BKA and prosthesis training. The plan of treatment is scheduled for 2x/week for 4 weeks. Thank you for referring Ish Corley to [facility]. Please review, sign, date and return this plan of care DONTAE. I agree with and certify that the following plan of care is medically necessary. Referring Physician Date Attending Provider: Jovanny Mcbride MD *PT Outpatient Evaluation Start: 05/25/20 10:03 Document 05/25/20 10:03 ROSY (Rec: 05/25/20 11:04 ROSY [id number]) Outpatient Past Medical History Past Medical History Source of Past Medical History Patient,Family/Significant Other Neurological History Hx Seizures Yes: from hypoglycemia Cardiovascular History Hx Angina Yes Hx Cardiomyopathy Yes Hx Congestive Heart Failure Yes Hx Coronary Artery Disease Yes: NSTEMI Dec 2019, stent placed to LAD Hx Coronary Stent Yes Hx Hypercholesterolemia Yes Hx Hypertension Yes: on meds, monitoring Hx Myocardial Infarction Yes Respiratory History Hx Other Respiratory Disorders Yes: pulmonary edema, acute/ chronic respiratory failure Gastrointestinal History Hx Hemorrhoids Yes: removed 12 years ago Genitourinary History Hx Dialysis Yes: Has fistula in left arm, M-W-F dialysis Hx Renal Disease Yes Hx Other Genitourinary Disorders Yes: signs of calciphylaxis Musculoskeletal History Hx Fractures Yes: left rib fx Hx Orthopedic Surgery Yes: R BKA Dec 10, 2019 Hx Spinal Surgery Yes: has had 2 back surgeries, spinal fusion and laminectomy Hematological History Hx Anemia Yes: takes folic acid Endocrine History Hx Diabetes Yes: 40+ years; not controlled HEENT History Hx Cataracts Yes: has had surgery LEFT EYE Hx Dental Problems Yes Integumentary History Hx Other Skin Disorders Yes: hx diabetic foot ulcer R Reproductive History Hx Reproductive Disorders No Significant History Psychosocial History Hx Anxiety Yes: taking meds--lorazopram and zoloft Hx Depression Yes Hx Other Psychiatric Disorders Yes: reports anxiety with dialysis- 3 & 1/2 hours Pain History History of Any Previous or Ongoing No Significant History Instance of Pain Anesthesia History Hx Anesthesia Reactions No Significant History Other History Hx Implanted Device Yes: GLUCOSE MONITOR Evaluation Information Problem
--- NOTE | 2020-06-17 10:40 | PTOPEVAL ---
PHYSICAL THERAPY DISCHARGE 06-17-2020 Ish has received 10 PT sessions, from April 25 to today, for the diagnosis of s/p R BKA. Compared to the initial evaluation: strength of R hip has improved with single leg standing tolerance increased; 6 minute walk test is the same distance; Bose balance score increased by 3 points, sit/stand time improved and he has been educated on a home exercise program. The goals were partially achieved. Thank you for referring Ish Corley to [facility]. Please review, sign, date and return this discharge DONTAE. I agree with and certify that the following plan of care is medically necessary. Referring Physician Date Attending Provider: Jovanny Mcbride MD *PT Outpatient Discharge Document 06/17/20 10:18 ROSY (Rec: 06/17/20 10:35 ROSY [id number]) Subjective Information Ish reports: doing home Query Text:As Reported By Patient/ exercises when he feels up to Family it; does not have any pain; has not had any falls; is doing everything at home; no skin irritation of R stump, skin a little dry--checks skin , wearing prosthesis 8-10 hours/day; in home is not always using the cane; agrees with discharge from PT and to continue exercises and walking as tolerated; Pain Assessment Timing of Pain Assessment Timing of Pain Assessment Assessment Self Report Self Report Pain Level 0 Pain Score Pain Score 0: Self Report Balance Assessment Bose Balance Assessment Sitting to Standing Independent w/out Hands Unsupported Stance Ability Safely- 2 minutes Sitting Unsupported, Feet on Floor Safely- 2 minutes Standing to Sitting Safely, Minimal Hand Use Transfer Ability Safely, Minimal Hand Use Unsupported Stance- Eyes Closed Safely, 10 seconds Unsupported Stance- Feet Together Independent, 1 minute Reaching Forward while Standing Safely, 5 inches biomedical equipment support specialist Object From Floor Independent/Safe Look Behind Shoulder - Standing Shifts Weight Well Turning 360 Degrees Turns Bilateral, < 4 secs Unsupported Stance, Alternating Feet on (I)- 8 Steps in > 20 secs Stair Unsupported Tandem Stance Small Step- 30 seconds Unilateral Leg Stance Lifts Leg/Unable to Hold BOSE Balance Evaluation Total Score (/56 49 points) Comments single leg standing on R-2 sec / L 6 seconds-unsteady 5 Time Sit to Stand Time in Seconds 13 5 Time Sit to Stand Comments without use of UE Query Text:Normative Data: If Greater Than 15 Seconds, 74% Increase Risk for
== END 2020-06-18 12:48 | disposition home or self-care (01) ==
LOC: ANHPT 10:00
PROVIDERS: PCP Emergency Medicine; Visit Provider Surgery Vascular Surgery
DX: Z47.81 Encounter for orthopedic aftercare following surgical amputation (principal); Z89.511 Acquired absence of right leg below knee
CPT/HCPCS: 97110; 97140; 97161

== ENCOUNTER 2020-06-26 06:13 | Inpatient (IN) | payer MEDICARE, MEDICAID, SELFPAY ==
[2020-06-26] VITALS (62 sets, daily range): BP systolic 90–226; BP diastolic 53–119; PULSE 72–123; RESP 12–32; TEMP 36.5–37; O2SAT 94–100; BMI 22.8
--- NOTE | 2020-06-26 | ECHO_ITS ---
Patient Info Name: Ish Corley Age: 54 years : 1965 Gender: Male Ht: 66 in Wt: 144 lbs BSA: 1.75 m2 HR: 75 bpm BP: 97 / 62 mmHg Heart Rhythm: Sinus Rhythm Technical Quality: Good Exam Date: 06/26/2020 11:31 AM Exam Location: [facility] Patient Status: Inpatient Admit Date: 06/26/2020 Staff Ordering Physician: Cristi Amin MD [employer] Products Fabricator: Riki Marley RDCS Attending Provider: Chance Landis MD Exam Type: CA echo dop color flow w con Study Info Indications I21.02 - ST elevation (STEMI) myocardial infarction involving left anterior descending coronary artery Complete two-dimensional, color flow and Doppler transthoracic echocardiogram is performed with contrast to opacify the left ventricle and to improve the deliniation of the left ventricle endocardial borders. Strain analysis performed. Contrast/Agitated Saline Contrast/Ag. Saline: Definity Amount: 3.00 ml Administered By: Lew Ash RN Existing IV Access: Yes History/Risk Factors STEMI; SOB, pulmonary edema, respiratory failure, HTN, COPD>. Summary 1. Left ventricular chamber dimension is mildly enlarged. 2. Left ventricular systolic function is severely reduced, estimated at 25-30%. 3. There is moderately increased left ventricular wall thickness. 4. The left ventricular diastolic function is grade II diastolic dysfunction. 5. There is no thrombus visualized in the left ventricle. 6. Global longitudinal strain is abnormal at -6 %. 7. The apex, inferior wall, anterior wall, inferoseptal wall, anterolateral wall, and anteroseptal wall are hypokinetic. 8. Left atrial chamber dimension is mildly enlarged. 9. There is severe aortic valve sclerosis. 10. There is mild mitral valve regurgitation. 11. The mitral valve has calcified annulus. 12. Mild pulmonary hypertension, estimated pulmonary arterial systolic pressure is 43 mmHg. 13. There is mild tricuspid valve regurgitation. 14. There is mild pulmonic regurgitation. Left Ventricle Left ventricular chamber dimension is mildly enlarged. Left ventricular systolic function is severely reduced, estimated at 25-30%. There is moderately increased left ventricular wall thickness. The left ventricular diastolic function is grade II diastolic dysfunction. There is no thrombus visualized in the left ventricle. Global longitudinal strain is abnormal at -6 %. The apex, inferior wall, anterior wall, inferoseptal wall, anterolateral wall, and anteroseptal wall are hypokinetic. All other duenas appear normal. Right Ventricle Right ventricular chamber dimension is normal. Right ventricular systolic function is normal. Left Atria Left atrial chamber dimension is mildly enlarged. Right Atria Right atrial chamber dimension is normal. Atrial Septum Intact interatrial septum visualized by color flow imaging. Aortic Valve The aortic valve is trileaflet. There is severe aortic valve sclerosis. There is no aortic valve stenosis. There is trace aortic valve regurgitation. Pulmonic Valve The pulmonic valve is normal. There is no pulmonic valve stenosis. There is mild pulmonic regurgitation. Mitral Valve The mitral valve has calcified annulus. There is no mitral valve stenosis. There is mild mitral valve regurgitation. Tricuspid Valve The tricuspid valve leaflets are normal. There is no significant tricuspid valve stenosis. There is mild tricuspid valve reg
--- NOTE | ~2020-06-26 | XR_ITS ---
EXAMINATION: XR chest 1V portable DATE: 06/27/2020 05:55 INDICATION: Respiratory failure. TECHNIQUE: A single frontal view of the chest was obtained. COMPARISON: Chest single view 06/26/2020 FINDINGS: The chest demonstrates clear lungs without pneumonia, pleural effusion, or pneumothorax. Th e heart size is normal. The endotracheal tube tip is 4.8 cm above the luciano. The nasogastric tube ti p is in the stomach. IMPRESSION: 1. No acute cardiopulmonary disease. Reviewed, dictated and finalized at location A.
--- NOTE | ~2020-06-26 | XR_ITS ---
EXAMINATION: XR chest ET placement DATE: 06/26/2020 09:58 INDICATION: Respiratory failure. TECHNIQUE: A single frontal view of the chest was obtained. COMPARISON: Chest single view at 6:46 AM, CT abdomen and pelvis 06/09/2020 FINDINGS: There is a diffuse interstitial pattern with a perihilar and upper lung predominance, consi stent with pulmonary edema. No pleural effusion or pneumothorax. The heart size is normal. The endotr acheal tube tip is 4.5 cm above the luciano. The nasogastric tube tip is beyond the inferior margin of the radiograph, but at least to the stomach. IMPRESSION: 1. Mild pulmonary edema with interval improvement. Reviewed, dictated and finalized at location B.
--- NOTE | ~2020-06-26 | XR_ITS ---
EXAMINATION: XR chest 1V portable DATE: 06/28/2020 05:42 INDICATION: Respiratory failure. TECHNIQUE: A single frontal view of the chest was obtained. COMPARISON: Chest single view 06/27/2020, CT abdomen and pelvis 06/09/2020 FINDINGS: There is mild atelectasis in left mid and lower lung zones. No pleural effusion or pneumoth orax. The heart size is normal. IMPRESSION: 1. Mild atelectasis in left mid and lower lung zones. Reviewed, dictated and finalized at location A.
--- NOTE | ~2020-06-26 | XR_ITS ---
EXAMINATION: XR chest ET placement DATE: 06/26/2020 06:48 INDICATION: Endotracheal tube placement TECHNIQUE: AP view of the chest and AP view of the abdomen and pelvis were obtained.. COMPARISON: Chest radiograph dated 06/09/2020 FINDINGS: Endotracheal tube tip 6.1 cm above the luciano. Perihilar opacities with diffuse increased interstitia l pattern and peripheral Marilee B-lines consistent with mild pulmonary edema. No pneumothorax or defi nitive pleural effusion although portions of the lung bases are excluded from the field of imaging. C ardiomegaly. Nasogastric tube tip and proximal side port in the body of the stomach. Normal bowel gas pattern with no dilated gas-filled loops of bowel. Stimulator device with bilateral leads projecting over the lef t and right sides of the lumbar spine at the level of the L3-L4. L5 laminectomy. Bilateral vertical r od and pedicle screw fixation for posterior spinal fusion at L4-S1. There is also and washer and scre w fixation projecting over L5-S1 likely for anterior spinal fusion. IMPRESSION: 1. Endotracheal tube 6.1 cm above the luciano. Consider advancement by 3-4 cm. 2. Congestive heart failure with cardiomegaly and mild pulmonary edema. Reviewed, dictated and finalized at location A.
--- NOTE | ~2020-06-26 | XR_ITS ---
XR abdomen NG/feed tube rechec DATE: 06/27/2020 15:21 INDICATION: Reinserted NG tube TECHNIQUE: Portable AP views on 06/27/2020 at 1514 and 1515 hours COMPARISON: None FINDINGS: An NG tube is present in the distal esophagus approximately 6-6.5 centimeters proximal to t he diaphragmatic hiatus. The bowel gas pattern is unremarkable, without evidence of obstruction. There is hardware in the mid lumbar spine to upper sacrum. Implanted battery and leads overlie the maury mbar area. Diffuse osteopenia. IMPRESSION: NG tube in distal stomach approximately 6-6.5 cm proximal to the diaphragmatic hiatus Reviewed, dictated and finalized at Location A. Reviewed, dictated and finalized at location A. IMPRESSION: NG tube in distal stomach approximately 6-6.5 cm proximal to the di aphragmatic hiatus
--- NOTE | 2020-06-26 06:26 | ECG_ITS ---
Measurements Intervals [place] Rate: 88 P: -70 [place]: 188 QRS: -65 QRSD: 254 T: 95 QT: 547 QTc: 663 Interpretive Statements ECTOPIC ATRIAL RHYTHM LEFT AXIS DEVIATION LEFT BUNDLE BRANCH BLOCK SIGNIFICANT ST ELEVATION IN ANTEROSEPTAL LEADS- CONSIDER ACUTE INJURY BASELINE ARTIFACT- I, II, III ABNORMAL ECG Electronically Signed On 06-26-2020 9:52:56 CDT by Edmond Elias D.O.
--- NOTE | 2020-06-26 06:27 | ED.SOB ---
HPI - SOB/Dyspnea General Chief Complaint: Shortness of Breath/Dyspnea <Lex Oliveira MD - Last Filed: 06/26/20 07:00> Stated Complaint: SOB <Lex Oliveira MD - Last Filed: 06/26/20 07:00> Time Seen by Provider: 06/26/20 06:24 <Lex Oliveira MD - Last Filed: 06/26/20 07:00> History of Present Illness HPI Narrative: Brought in by EMS from home. Called for SOB. Hypoxic. Became unresponsive in route. Recieved BVM ventilation. History limited by clinical condition <Lex Oliveira MD - Last Filed: 06/26/20 07:00> Review of Systems Review of Systems: ROS unobtainable: Yes unobtainable due to medical condition <Lex Oliveira MD - Last Filed: 06/26/20 07:00> Exam Const: Other: Severe distress. diaphoretic. <Lex Oliveira MD - Last Filed: 06/26/20 07:00> Eyes: Pupils: Equal, round and reactive pupils present <Lex Oliveira MD - Last Filed: 06/26/20 07:00> Resp: Other: Gasping. tachypnea, rales <Lex Oliveira MD - Last Filed: 06/26/20 07:00> Cardio: Rate: tachycardic <eLx Oliveira MD - Last Filed: 06/26/20 07:00> Rhythm: regular rhythm <Lex Oliveira MD - Last Filed: 06/26/20 07:00> GI: GI Palp: Yes Soft to palpation <Lex Oliveira MD - Last Filed: 06/26/20 07:00> Skin: General skin exam: normal color <Lex Oliveira MD - Last Filed: 06/26/20 07:00> Neuro: Other: Unresponsive. <Lex Oliveira MD - Last Filed: 06/26/20 07:00> Extrem: Other: Left bka. Dialysis shunt in LUE. <Lex Oliveira MD - Last Filed: 06/26/20 07:00> Course Reevaluation(s) Reevaluation #1: Patient is intubated, and Dr. Oliveira advanced the ET tube before he left. The is present and she has the patient's cardiac cath card that shows a stent in the LAD. His previous MO was in December of this year. <Ilsa Stewart MD - Last Filed: 06/26/20 07:12> Date: 06/26/20 <Ilsa Stewart MD - Last Filed: 06/26/20 07:12> Time: 07:12 <Ilsa Stewart MD - Last Filed: 06/26/20 07:12> Consultations Consultation #1: Call Dr. Landis for acute MO on EKG. he was the physician who did the cardiac cath in December for the acute MO and gave a stent to the LAD. He spoke with the , and is taking the patient to cardiac cath. <Ilsa Stewart MD - Last Filed: 06/26/20 07:12> Date: 06/26/20 <Ilsa Stewart MD - Last Filed: 06/26/20 07:12> Time: 07:11 <Ilsa Stewart MD - Last Filed: 06/26/20 07:12> Vital Signs Vital signs: Vital Signs Pulse Rate 123 H 06/26/20 06:15 Respiratory Rate 32 H 06/26/20 06:15 Blood Pressure 221/107 H 06/26/20 06:15 Pulse Oximetry 98 06/26/20 06:15 Temperature 98.2 F 06/26/20 06:26 Pulse Rate 119 H 06/26/20 06:53 Respiratory Rate 19 06/26/20 06:53 Blood Pressure 180/110 H 06/26/20 06:53 Pulse Oximetry 100 06/26/20 06:53 <Lex Oliveira MD - Last Filed: 06/26/20 07:00> Vital Signs Pulse Rate 123 H 06/26/20 06:15 Respiratory Rate 32 H 06/26/20 06:15 Blood Pressure 221/107 H 06/26/20 06:15 Pulse Oximetry 98 06/26/20 06:15 Temperature 98.2 F 06/26/20 06:26 Pulse Rate 119 H 06/26/20 06:53 Respiratory Rate 19 06/26/20 06:53 Blood Pressure 180/110 H 06/26/20 06:53 Pulse Oximetry 100 06/26/20 06:53 <Ilsa Stewart MD - Last Filed: 06/26/20 07:12> Procedures Intubation Intubation #1: Intubation Date: 06/26/20 <Lex Oliveira MD - Last Filed: 06/26/20 07:00> Time out performed: No <Lex Oliveira MD - Last Filed: 06/26/20 07:00> sedative: Etomidate <Lex Oliveira MD - Last Filed: 06/26/20 07:00> Mg Given: 20 <Lex Oliveira MD - Last Filed: 06/26/20 07:00> paralytic: Succinylcholine <Lex Oliveira MD - Last Filed: 06/26/20 07:00> Mg Given: 100 <Lex Oliveira MD - Last Filed: 06/26/20 07:00>
--- NOTE | 2020-06-26 06:31 | PC.NURSE ---
0617---18g right external Jugular placed by Dr Oliveira 0619 20mg Etomidate given IV 0620 100mg Succinylcholine given IV 0622 8.[address] Oliveira--no rey used. At 23cm lip line
[2020-06-26] MEDS: NITROGLYCERIN OINTMENT 1 INCH DOSE TRANSDERM (06:37)
[2020-06-26] MEDS: PROPOFOL IV EMULSION 100 ML 30 MG (06:40)
[2020-06-26 06:47] LABS: Basophils Absolute Auto 0.1 K/mm3 (0.0-0.1); Basophils Percent Auto 0.7 % (0.2-1.2); Eosinophils Absolute Auto 0.7 K/mm3 (0-0.3); Eosinophils Percent Auto 3.3 % (0-4.4); Hematocrit 42.7 % (42.0-52.0); Hemoglobin 12.9 g/dL (14.0-18.0); Immature Granulocyte Absolute 0.12 K/mm3 (0.00-0.031); Immature Granulocyte Percent A 0.6 % (0-0.5); Lymphocytes Absolute Auto 5.09 K/mm3 (0.9-3.2); Lymphocytes Percent Auto 24.3 % (18.3-44.2); Mean Corpuscular HGB Conc 30.2 g/dl (32-36); Mean Corpuscular Hemoglobin 30.6 pg (26-34); Mean Corpuscular Volume 101.4 fl (80-100); Mean Platelet Volume 9.9 fl (7.4-10.4); Monocytes Absolute Auto 1.5 K/mm3 (0.1-0.6); Monocytes Percent Auto 7.3 % (2.6-8.5); Neutrophils Absolute Auto 13.4 K/mm3 (1.3-6.7); Neutrophils Percent Auto 63.8 % (45.5-73.1); Platelet Count Result 484 k/mm3 (150-375); Red Blood Count 4.21 M/mm3 (4.6-6.20); Red Cell Distribution Width 17.3 % (11.5-14.5); White Blood Count 20.9 K/mm3 (4.5-10.0)
[2020-06-26 07:00] LABS: Anion Gap 17 mmol/L (8-16); Blood Urea Nitrogen 63 mg/dL (9-20); Calcium 8.9 mg/dL (8.4-10.2); Carbon Dioxide 24 mmol/L (22-30); Chloride 97 mmol/L (98-107); Estimated CRCL calculation 9 ml/min; Estimated Glomerular Filt Rate 6; Glucose 226 mg/dL (75-110); Potassium 5.6 mmol/L (3.4-5.0); Sodium 138 mmol/L (137-145)
--- NOTE | 2020-06-26 07:04 | PC.NURSE ---
ETT advanced to 24cm at lip line
[2020-06-26 07:05] LABS: Partial Thromboplastin Time 28.7 SECONDS (22.3-36.8)
--- NOTE | 2020-06-26 07:08 | PC.NURSE ---
REport to oncoming shift RN
[2020-06-26 07:23] LABS: NT Pro B Type Natriuretic Pept > 35000 PG/ML (5-100); Troponin I 0.049 ng/mL (0.000-0.034)
--- NOTE | 2020-06-26 07:34 | WPDMODSED ---
Moderate Sedation Note-Pt Data Patient Data Diagnosis: Acute respiratory failure requiring emergency intubation history of coronary artery disease with PCI to the mid LAD December of 2019 Present Complaint: 54-year-old man with history of previous stenting to the LAD in December of 2019 abruptly noticing next respiratory extremis this morning and was brought to the emergency room. He was intubated because of respiratory extremis. He was not reporting chest pain. Following intubation there is mild precordial ST elevation. Procedure to be performed/Plan: Emergency coronary angiogram Allergies Allergy/AdvReac Type Severity Reaction Status Date / Time scopolamine Allergy Unknown Verified 06/26/20 07:35 Current Medications: Active Medications Propofol (Diprivan) 100 mls @ 2.7 mls/hr IV CONT .Q37H3M MARTHA Sedation/Anesthesia: No previous sedation/anesthesia problems (including family history). Mod Sed Physical Exam Physical Exam Pre Procedural Exam: Normal: Neck, Throat, Heart Size, Heart Rate and Heart Rhythm and Variation: Appearance ( intubated white male right lower extremity amputee), Airway ( patient intubated), Lungs ( central rhonchi), Neuro Exam ( sedated) and Extremities ( right lower extremity amputation) Hours since solid foods: 12 Hours since liquid intake: 12 Internal Medicine - PN: Obj Da Vital Signs Vital Signs: Vital Signs - 24 hr 06/26/20 06:15 06/26/20 06:26 06/26/20 06:39 Temperature 36.8 C Pulse Rate 123 H 120 H Respiratory Rate 32 H 16 Blood Pressure 221/107 H 226/119 H Pulse Oximetry 98 100 100 06/26/20 06:40 06/26/20 06:53 Temperature Pulse Rate 120 H 119 H Respiratory Rate 19 19 Blood Pressure 180/110 H Pulse Oximetry 100 Meds/Results Medications: Active Medications Generic Name Dose Route Start Last Admin Trade Name Freq PRN Reason Stop Dose Admin Propofol 100 mls @ 2.7 mls/hr 06/26/20 06:30 Diprivan IV CONT .Q37H3M MARTHA 5 MCG/KG/MIN Radiology Results: ITS Impressions Chest X-Ray 06/26/20 06:50 IMPRESSION: 1. Endotracheal tube 6.1 cm above the luciano. Consider advancement by 3-4 cm. 2. Congestive heart failure with cardiomegaly and mild pulmonary edema. Labs CBC & Chem 7: 06/26/20 06:39 06/26/20 06:39 Labs: Laboratory Results - last 24 hr 06/26/20 06/26/20 06/26/20 06:39 06:39 06:39 WBC 20.9 H RBC 4.21 L Hgb 12.9 L Hct 42.7 MCV 101.4 H MCH 30.6 MCHC 30.2 L RDW 17.3 H Plt Count 484 H MPV 9.9 Immature Gran % (Auto) 0.6 H Neut % (Auto) 63.8 Lymph % (Auto) 24.3 [place] % (Auto) 7.3 Eos % (Auto) 3.3 Baso % (Auto) 0.7 Lymph # (Auto) 5.09 H [place] # (Auto) 1.5 H Eos # (Auto) 0.7 H Baso # (Auto) 0.1 Abs Immat Gran (auto) 0.12 H Absolute Neuts (auto) 13.4 H Absolute Nucleated RBC 0.0 Nucleated RBC % 0.0 PT 13.0 INR 1.0 APTT 28.7 Sodium 138 Potassium 5.6 H Chloride 97 L Carbon Dioxide 24 Anion Gap 17 H BUN 63 H Creatinine 9.10 H Estim Creat Clear Calc 9 Estimated GFR 6 L Glucose 226 H Calcium 8.9 Troponin I 0.049 H* NT-Pro-B Natriuret Pep > 28102 H ASA Classification/Sedation ASA Classification/Sedation ASA Class: IV Emergent: Yes Risks: Risks, benefits and alternatives explained and patient/family accepted plan for sedation. Patient re-evaluated immediately prior to sedation.
--- NOTE | 2020-06-26 08:44 | ECG_ITS ---
Measurements Intervals [place] Rate: 120 P: 71 [place]: 157 QRS: 97 QRSD: 130 T: -74 QT: 338 QTc: 478 Interpretive Statements SINUS TACHYCARDIA RIGHT AXIS DEVIATION INTRAVENTRICULAR CONDUCTION DELAY ST ELEVATION IN ANTEROSEPTAL LEADS- CONSIDER ACUTE INJURY ABNORMAL ECG Electronically Signed On 06-26-2020 10:52:33 CDT by Edmond Elias D.O.
--- NOTE | 2020-06-26 08:49 | WPDCARDPROC ---
Cardiac Cath Procedure Note Date of procedure:: 06/26/20 Performing physician:: Chance Landis MD Indication:: acute myocardial infarction, acute pulmonary edema Brief clinical history:: this is a 54-year-old patient with coronary disease who underwent LAD stenting in December of this year. He presented to the hospital with acute respiratory extremis and was intubated in the emergency room. Electrocardiogram demonstrates anterior precordial ST elevation resulting in the need to perform urgent angiogram. Procedure Procedure performed:: Emergency left coronary angiography emergency thrombectomy of LAD, in stent thrombus PTCA and stenting of LAD distal to the previous device high-pressure balloon inflation of existing stent Sedation/Medication given:: patient on propofol infusion from the emergency room, no additional sedation given case start time 7:42 a.m. case end time 8:41 a.m. sedation monitored by Houston Dubois RN, trained observer Access site:: right femoral artery Estimated blood loss:: 50 cc Procedure note:: patient was brought emergently to the cardiac catheterization lab intubated and sedated in the setting of acute pulmonary edema. The patient's angiography from December of this year were reviewed his right coronary was a very small nondominant vessel and was not re-examined during this procedure. A 6 British CLS 3.5 guiding catheter was used to engage inject the left coronary. Following this emergency PCI of the LAD was carried out as detailed below. Prior to PCI the patient was systemically anticoagulated with Angiomax and he received aspirin and Brilinta 180 mg down the NG tube. Following this the LAD was wired using the 0.014 BMW wire. The 1st wire was underneath existing struts from the original stent identified when initial balloon inflation attempt was performed. Following this a 2nd BMW wire was advanced into the LAD and with support of the PTCA balloon the true lumen of the stent was identified and the wire was advanced into the distal LAD. Following this extraction thrombectomy of the in stent thrombus was performed using the export catheter. Following this the area was pre-dilated with the 3.5 mm high-pressure balloon. Following this attention was turned to the lesion at the distal margin of the stent this was dilated using the 3.5 mm balloon at low pressure. Following this the 3.5 x 22 mm or cirrhosis stent was delivered to the segment using the GuideLiner catheter and deployed at the distal margin of the previous stent at 8 atmospheres. Following this a 4 mm high-pressure noncompliant balloon was used to dilate the original stent at 20 atmospheres. Following this the area in question was widely patent with excellent angiographic result and resolution of thrombus and no persistent dissection or distal embolization. The sheath was sutured into position and the patient was taken to the ICU for further recovery. Following and during the procedure described above the patient did have 1 episode of sustained ventricular tachycardia which was monomorphic and was terminated with 1 countershock at 200 joules. Findings:: The left main coronary artery is widely patent the LAD is a large caliber artery with visible stent material in the proximal segment. There is NADJA 3 flow in the vessel but there is an obvious intraluminal thrombus in the LAD stent. The device appears angiographically to be undersized. The LAD also has a 70% stenosis at the distal margin of the stent. A previously seen proximal diagonal branch which was jailed by the original stent is now totally occluded. circumflex is dominant to the posterior circulation there are mild luminal irregularities in the circumflex but no significant disease is identified as stated above the right coronary artery is known to be a very small non dominant vessel was not reinjected during today's emergency. Conclusion:: 1. Acute pulmonary edema with acute thro
[2020-06-26 09:36] LABS: Glucose Point of Care 215 (65-105)
--- NOTE | 2020-06-26 09:57 | WPDCNINT ---
Assessment and Plan Assessment and plan (1) Acute respiratory failure: Code(s): J96.00 - Acute respiratory failure, unspecified whether with hypoxia or hypercapnia Status: Acute Assessment and Plan: Acute Respiratory failure secondary to STEMI and pulmonary edema Continue full mechanical ventilation support to prevent hypoxemia/hypercarbia and end organ damage. PCXR reviewed and showed pulmonary edema and acceptable position of ET tube vent settings reviewed. check ABG now Will attempt SBT after dialysis if he is hemodynamically stable (2) STEMI (ST elevation myocardial infarction): Code(s): I21.3 - ST elevation (STEMI) myocardial infarction of unspecified site Status: Acute Assessment and Plan: status post complicated PCI with stent placement in LAD on aspirin statin beta-graciela ARB and Brilinta will check echo (3) ESRD (end stage renal disease): Code(s): N18.6 - End stage renal disease Status: Acute Assessment and Plan: consulted nephrology for hemodialysis today (4) Hyperkalemia: Code(s): E87.5 - Hyperkalemia Status: Acute Assessment and Plan: check BMP now to see current potassium level (5) Pulmonary edema: Code(s): J81.1 - Chronic pulmonary edema Status: Acute Assessment and Plan: plan to remove fluid with hemodialysis today (6) CHF (congestive heart failure): Code(s): I50.9 - Heart failure, unspecified Status: Acute (7) Upper GI bleed: Code(s): K92.2 - Gastrointestinal hemorrhage, unspecified Status: Acute Assessment and Plan: patient has coffee-ground section coming out of his OG tube patient is currently on antiplatelets aspirin and Brilinta and also on anticoagulation with Angiomax will give Protonix IV bolus and start infusion serial hemoglobin Discussed with cardiology and GI. will DC Angiomax at this time Additional Plan DVT prophylaxis - currently on Angiomax which will be stopped, SCDs Stress ulcer prophylaxis - PPI infusion Nutrition - NPO Code Status - Full Code. no family at bedside Total Critical Care Time - 35 minutes Due to a high probability of clinically significant, life threatening deterioration, the patient required my highest level of preparedness to intervene emergently and I personally spent this critical care time directly and personally managing the patient. This critical care time included obtaining a history; examining the patient; pulse oximetry; ordering and review of studies; arranging urgent treatment with development of a management plan; evaluation of patient's response to treatment; frequent reassessment; and discussions with other providers. It was exclusive of separately billable procedures and treating other patients and teaching time. Please see Assessment and Plan section and the rest of the note for further information on patient assessment and treatment Oil Well Driller Consult Note Consult date: 06/26/20 Time Seen: 09:00 HPI: Ish Corley is a 54 year old male with past medical history of end-stage renal disease on hemodialysis Monday, coronary artery disease status post LAD stent placement in December of this year, hypertension, COPD who was brought early in the morning today with chief complaint of shortness of breath. To hospital he became unresponsive and was ventilated with Ambu bag. Was intubated in ED and during the workup EKG showed ST segment elevation. Was emergently taken to medical laboratory specialist and had a complicated PCI with a stent placed in LAD. Patient had 2 episodes of V-tach during the procedure 1 of them required cardioversion. Postprocedure patient was admitted to ICU for further evaluation management. History obtained from chart and Physician sign out. Pt intubated and sedated and unable to provide any other history. Review of Systems Review of Systems: ROS unobtainable: Yes unobtainable due t
[2020-06-26] MEDS: PROPOFOL IV EMULSION 100 ML 27 MG IV CONT (10:07)
[2020-06-26] MEDS: PANTOPRAZOLE SODIUM IV 40 MG VIAL 80 MG IV PUSH (10:15)
[2020-06-26 10:30] LABS: Hematocrit 37.8 % (42.0-52.0); Hemoglobin 11.6 g/dL (14.0-18.0)
[2020-06-26 10:32] LABS: Glucose Point of Care 274 (65-105)
[2020-06-26] MEDS: INSULIN ASPART (*BKC) 100 UNITS/ML SUB-Q ×2 (10:32→23:57)
[2020-06-26 10:59] LABS: Anion Gap 16 mmol/L (8-16); Blood Urea Nitrogen 72 mg/dL (9-20); Calcium 8.1 mg/dL (8.4-10.2); Carbon Dioxide 20 mmol/L (22-30); Chloride 92 mmol/L (98-107); Estimated CRCL calculation 10 ml/min; Estimated Glomerular Filt Rate 6; Glucose 356 mg/dL (75-110); Potassium 8.5 mmol/L (3.4-5.0); Sodium 128 mmol/L (137-145)
--- NOTE | 2020-06-26 11:20 | WPDGICN ---
Assessment and Plan Assessment and plan (1) Upper GI bleed: Code(s): K92.2 - Gastrointestinal hemorrhage, unspecified Status: Acute Assessment and Plan: Patient with upper GI bleeding manifested by maroonish in coffee-ground NG tube return. Suspect he may have peptic ulcer disease. Plan is to maintain on IV proton pump inhibitors. Anticoagulation should be held if at all possible. Because hemoglobin is felt to be stable in the 11.6 - 12 range would defer endoscopy unless absolutely necessary. Consider a elective EGD over the next several days if he remains stable more urgently should he actively bleed. (2) CHF (congestive heart failure): Code(s): I50.9 - Heart failure, unspecified Status: Acute Assessment and Plan: Acute congestive heart failure and pulmonary edema now with respiratory failure patient is on the ventilator. Cardiology actively managing the patient. (3) Acute respiratory failure: Code(s): J96.00 - Acute respiratory failure, unspecified whether with hypoxia or hypercapnia Status: Acute (4) Acute renal failure: Code(s): N17.9 - Acute kidney failure, unspecified Status: Acute Assessment and Plan: Elevated BUN 72, creatinine 8.7. Appears to be acute renal insufficiency. Workup in process. GI Consult Note Consult date/time: 06/26/20 11:20 HPI: Ish Corley is a 54 year old male I am asked to see at the request of the speech language pathologist prn service. To evaluate upper GI blood loss. Patient has a known history of diabetes mellitus. Has a history of peripheral vascular disease and bilateral [id number] amputations. He awoke his early this morning with respiratory distress. Was taken to the emergency room in quickly intubated. He was identified as having an acute IN. He was taken to the labor economist and cstents were placed. He was placed on bright Lantus anticoagulation upon presenting to the intensive care unit NG tube was noticed to pass a large amount of maroonish blood. In for this reason I have been consulted. There is no prior known history of ulcer disease. Patient is currently intubated unable to add any useful history. Much history is obtained from question his . Review of Systems Review of Systems: ROS unobtainable: Yes unobtainable due to endotracheal tube Meds Home Medications and Allergies Home Medications Medication Instructions Recorded Confirmed Type B complex-vitamin C-folic acid 1 tablet PO DAILY 06/26/20 History [Dang-Nilsa] albuterol sulfate 2.5 mg INHALATION ONCE 06/26/20 History aspirin 81 mg PO DAILY 06/26/20 History atorvastatin 40 mg PO DAILY 06/26/20 History calcitriol 0.25 mcg PO 3XW 06/26/20 History carvedilol 25 mg PO BID 06/26/20 History cholecalciferol (vitamin D3) 100 mcg PO DAILY 06/26/20 History clonidine HCl 0.4 mg PO TID 06/26/20 History clopidogrel 75 mg PO DAILY 06/26/20 History furosemide 80 mg PO BID 06/26/20 History insulin glargine [Lantus U-100 10 unit SUBCUT QPM 06/26/20 History Insulin] insulin lispro [Humalog KwikPen 6 unit SUBCUT DAILY 06/26/20 History Insulin] lanthanum [Fosrenol] 1,000 mg PO TID 06/26/20 History lorazepam 1 mg PO BID PRN 06/26/20 History losartan 100 mg PO DAILY 06/26/20 History nitroglycerin 0.4 mg SUBLINGUAL ONCE 06/26/20 History oxycodone-acetaminophen 1 tablet PO Q6H PRN 06/26/20 History pantoprazole 40 mg PO QAM 06/26/20 History sertraline 25 mg PO DAILY 06/26/20 History tamsulosin 0.4 mg PO DAILY 06/26/20 History Allergies Allergy/AdvReac Type Severity Reaction Status Date / Time scopolamine Allergy Unknown Verified 06/26/20 07:35 Vital Signs Vital Signs - 24 hr 06/26/20 06:15 06/26/20 06:26 06/26/20 06:39 Temperature 98.2 F Pulse Rate 123 H 120 H Respiratory Rate 32 H 16 Blood Pressure 221/107 H 226/119 H Pulse Oximetry 98 100 100 06/26/20 06:40 06/26/20 06:53 06/26/20 07:33 Temperature P
--- NOTE | 2020-06-26 11:51 | PM.CNNEP ---
Assessment and Plan Assessment and plan (1) ESRD (end stage renal disease): Code(s): N18.6 - End stage renal disease Status: Acute Assessment and Plan: The patient has end-stage kidney disease. He is due for dialysis today. I have notified the nurse. Orders are written. (2) STEMI (ST elevation myocardial infarction): Code(s): I21.3 - ST elevation (STEMI) myocardial infarction of unspecified site Status: Acute Assessment and Plan: Patient had a STEMI. He had a PCI performed. (3) Acute respiratory failure: Code(s): J96.00 - Acute respiratory failure, unspecified whether with hypoxia or hypercapnia Status: Acute Assessment and Plan: He is on the ventilator now. He is on full support because he is sedated. We will do dialysis today and take some fluid off if possible. Discussed with Dr. Amin (4) Upper GI bleed: Code(s): K92.2 - Gastrointestinal hemorrhage, unspecified Status: Acute Assessment and Plan: He has some bleeding going on. His anticoagulants have been discontinued. He is on Protonix. PI has been consulted. (5) Acute hyperkalemia: Code(s): E87.5 - Hyperkalemia Status: Acute Assessment and Plan: Potassium was high on admission. We just got another test back and it is 8.5! This probably kevin because of the absorption of the potassium since he is GI bleeding. He was also a difficult stick so may have been hemolyzed. I asked the nurse to repeat the potassium stat as well. I talked with nursing and gave him orders for measures to get his potassium down. I just got word from the dialysis nurse that he is on his way now. (6) Hypertension: Code(s): I10 - Essential (primary) hypertension Status: Acute Assessment and Plan: Blood pressure is under better control lately. History of Present Illness Reason for Consult Consult date: 06/26/20 Chief Complaint Chief complaint: STEMI History of Present Illness Narrative: Ish is an unfortunate 54-year-old gentleman who has multiple medical problems including diabetes, hypertension, renal osteodystrophy, peripheral vascular disease status post right [id number] amputation, hyperlipidemia, coronary disease, depression, BPH. The patient came in the hospital because of shortness of breath. It turns out that he had a STEMI and so emergent with the cardiac microbiology lab analyst. They did a PCI. The patient went to the ICU. He is on a ventilator. He is due for dialysis today he cannot give a history the patient has severe hypertension. He is on several antihypertensives and finally his blood pressure has been under pretty good control the last few months. He has severe renal osteodystrophy. Phosphorus is constantly very high. He forgets his medicines and is noncompliant with his diet. He has diabetes. He has GERD on pantoprazole. He has BPH on tamsulosin he does not drink alcohol. He smokes a pack per day. Review of Systems Review of Systems: ROS unobtainable: Yes unobtainable due to endotracheal tube and unobtainable due to medical condition Endocrine: Endocrine: Reports no additional endocrine complaints Meds Home Medications and Allergies Home Medications Medication Instructions Recorded Confirmed Type B complex-vitamin C-folic acid 1 tablet PO DAILY 06/26/20 History [Dang-Nilsa] albuterol sulfate 2.5 mg INHALATION ONCE 06/26/20 History aspirin 81 mg PO DAILY 06/26/20 History atorvastatin 40 mg PO DAILY 06/26/20 History calcitriol 0.25 mcg PO 3XW 06/26/20 History carvedilol 25 mg PO BID 06/26/20 History cholecalciferol (vitamin D3) 100 mcg PO DAILY 06/26/20 History clonidine HCl 0.4 mg PO TID 06/26/20 History clopidogrel 75 mg PO DAILY 06/26/20 History furosemide 80 mg PO BID 06/26/20 History insulin glargine [Lantus U-100 10 unit SUBCUT QPM 06/26/20 History Insulin]
--- NOTE | 2020-06-26 12:08 | PM.EVENT ---
Event Note Event Note Event Note: potassium 8.5 2 g of calcium gluconate, 10 units of insulin regular IV, 25 g of dextrose 50 and 100 meq sodium bicarbonate IV ordered discussed with nephrology and plan for dialysis
[2020-06-26] MEDS: PERFLUTREN LIPID MICROSPHERES 1.5 ML VIAL DILUTED TO 10 ML TOTAL VOLUME IV PUSH (12:15)
[2020-06-26] MEDS: MIDAZOLAM HCL 2 MG/2 ML VIAL 4 MG IV PUSH (13:21)
--- NOTE | 2020-06-26 14:02 | P.PCNBED_ITS ---
Procedures Central Line Placement Left Femoral: Central Line Date: 06/26/20 Central Line Time: 13:00 Discussed w/ the patient/family/POA,the placement of a central venous catheter, including its clinical necessity/indication & associated potential risks, benifits and alternatives.: Yes The patient/family/POA understand(s) and acknowledge(s) the need to proceed with central venous catheter insertion as an important element of the patient's clinical management.: Yes Consent: Patient had poor IV access and we were unable to draw labs. informed consent was obtained from patient's . femoral site was used as patient was on Angiomax which was discontinued recently Time Out Performed: Yes Patient Position: supine Patient placed on monitor/pulse ox: Yes Provider Prep: mask, sterile gown, sterile gloves, Max. sterile barrier precautions, cap and hand hygiene with conventional soap/water or alcohol based hand rub Central line prep: 2% Chlorhexidine scrub and sterile full body sheet applied Sterile US Technique with sterile gel/sterile probe covers: Yes Central line lumen inserted: triple Length (cm): 16 Depth of Insertion (cm): 16 Post procedure: sutured in place, good blood return, all ports aspirated, flushed, capped, tegaderm, hemostatic disc, antimicrobial disc and aseptic te chnique maintained throughout procedure Patient tolerated procedure: well Complications: none
[2020-06-26 14:16] LABS: Anion Gap 15 mmol/L (8-16); Blood Urea Nitrogen 74 mg/dL (9-20); Calcium 7.8 mg/dL (8.4-10.2); Carbon Dioxide 23 mmol/L (22-30); Chloride 93 mmol/L (98-107); Estimated CRCL calculation 8 ml/min; Estimated Glomerular Filt Rate 6; Glucose 320 mg/dL (75-110); Potassium 6.9 mmol/L (3.4-5.0); Sodium 131 mmol/L (137-145)
[2020-06-26] MEDS: PROPOFOL IV EMULSION 100 ML 11.6 MG IV CONT (14:28)
[2020-06-26 17:49] LABS: Glucose Point of Care 160 (65-105)
[2020-06-26 17:51] LABS: Hematocrit 31.5 % (42.0-52.0); Hemoglobin 10.4 g/dL (14.0-18.0)
[2020-06-26 20:47] LABS: Hemoglobin 9.9 g/dL (14.0-18.0)
[2020-06-26] MEDS: PROPOFOL IV EMULSION 100 ML 19.3 MG IV CONT (21:07)
[2020-06-26] MEDS: carvediloL 12.5 MG TABLET PO (23:19)
[2020-06-26 23:55] LABS: Glucose Point of Care 205 (65-105)
[2020-06-27] VITALS (40 sets, daily range): BP systolic 88–182; BP diastolic 54–83; PULSE 96–121; RESP 6–28; TEMP 36.5–37.2; O2SAT 90–100
[2020-06-27 01:27] LABS: Hematocrit 30.4 % (42.0-52.0); Hemoglobin 9.6 g/dL (14.0-18.0)
[2020-06-27] MEDS: PROPOFOL IV EMULSION 100 ML 17.3 MG IV CONT (01:33)
[2020-06-27] MEDS: SODIUM CHLORIDE 0.9% IV 500 ML IV CONT (02:21)
[2020-06-27 04:29] LABS: Alveolar/Arterial O2 Gradient 165.9 mmHg; Base Excess ABG 2.3 mEq/l (+/-2.0); Carboxyhemoglobin 0.3 % THb (0-2.0); Fractional Inspired Oxygen 60 %; HCO3 ABG 25.3 mEq/l (22.0-26.0); Methemoglobin ABG 0.1 %THb (0-1.5); Oxygen Content ABG 14.7 %vol (16.0-22.0); Oxygen Saturation ABG 99.6 % (95.0-100.0); Oxyhemoglobin 98.6 % THb (90.0-100.0); PCO2 ABG 33.2 mmHg (35.0-45.0); PO2 ABG 225.4 mmHg (80.0-100.0); PO2 FiO2 Ratio Arterial Blood 3.76 %; Total Hemoglobin 10.2 g/dL (12.0-18.0)
[2020-06-27 04:30] LABS: Device VENTILATOR; Modified Allen's Test Pass; Site Drawn RIGHT BRACHIAL
[2020-06-27 04:31] LABS: Arterial Blood Gas PEEP 5 cmH2O; Arterial Blood Gas Tidal Volume 500 ml; Arterial Blood Gas Vent Mode CMV; Arterial Blood Gas Ventilator rate 18 /MIN
[2020-06-27 05:10] LABS: Hemoglobin 9.1 g/dL (14.0-18.0); Mean Corpuscular HGB Conc 32.5 g/dl (32-36); Mean Corpuscular Hemoglobin 31.2 pg (26-34); Mean Corpuscular Volume 95.9 fl (80-100); Mean Platelet Volume 10.2 fl (7.4-10.4); Platelet Count Result 355 k/mm3 (150-375); Red Blood Count 2.92 M/mm3 (4.6-6.20); Red Cell Distribution Width 17.5 % (11.5-14.5); White Blood Count 16.4 K/mm3 (4.5-10.0)
--- NOTE | 2020-06-27 05:11 | ECG_ITS ---
Measurements Intervals [place] Rate: 105 P: 60 SC: 116 QRS: 73 QRSD: 86 T: 120 QT: 415 QTc: 550 Interpretive Statements SINUS TACHYCARDIA WITH SHORT SC INTERVAL POSSIBLE LEFT ATRIAL ENLARGEMENT DELAYED PRECORDIAL R/S TRANSITION T WAVE ABNORMALITY IN ANTEROLATERAL LEADS- CONSIDER ISCHEMIA ABNORMAL ECG Electronically Signed On 06-27-2020 7:47:34 CDT by Edmond Elias D.O.
[2020-06-27 05:33] LABS: Alanine Aminotransferase 37 U/L (4-50); Alkaline Phosphatase 81 U/L (38-126); Anion Gap 17 mmol/L (8-16); Aspartate Amino Transferase 209 U/L (17-59); Bilirubin,Total 0.4 mg/dL (0.2-1.3); Blood Urea Nitrogen 39 mg/dL (9-20); Calcium 7.9 mg/dL (8.4-10.2); Carbon Dioxide 26 mmol/L (22-30); Chloride 88 mmol/L (98-107); Estimated CRCL calculation 13 ml/min; Estimated Glomerular Filt Rate 10; Glucose 327 mg/dL (75-110); Magnesium 2.5 mg/dL (1.6-2.3); Potassium 4.2 mmol/L (3.4-5.0); Sodium 131 mmol/L (137-145)
[2020-06-27] MEDS: INSULIN ASPART (*BKC) 100 UNITS/ML SUB-Q ×3 (05:42→12:28)
[2020-06-27 05:49] LABS: Glucose Point of Care 286 (65-105)
--- NOTE | 2020-06-27 08:00 | WPDINTPN ---
Progress Note: A&P Assessment and Plan (1) Acute respiratory failure: Code(s): J96.00 - Acute respiratory failure, unspecified whether with hypoxia or hypercapnia Status: Acute Assessment and Plan: Acute Respiratory failure secondary to STEMI and pulmonary edema Continue full mechanical ventilation support to prevent hypoxemia/hypercarbia and end organ damage. PCXR reviewed and showed pulmonary edema improved after dialysis yesterday vent settings reviewed. decrease tidal volume to 420 Will attempt SBT after EGD today depending on the results (2) Upper GI bleed: Code(s): K92.2 - Gastrointestinal hemorrhage, unspecified Status: Acute Assessment and Plan: patient has coffee-ground section coming out of his OG tube on arrival to ICU patient was on Angiomax which was discontinued. Patient was started on Protonix infusion serial hemoglobin are being done GI was consulted and notified overnight of persistent bleeding. Plan for EGD today. Brilinta was held last night. Aspirin is on hold. Will resume depending on EGD results. will transfuse if hemoglobin drops below 9 in the setting of STEMI (3) STEMI (ST elevation myocardial infarction): Code(s): I21.3 - ST elevation (STEMI) myocardial infarction of unspecified site Status: Acute Assessment and Plan: status post complicated PCI with stent placement in LAD on aspirin statin beta-graciela ARB and Brilinta echo reviewed yesterday Angiomax had to be discontinued earlier than planned due to GI bleeding. GI bleeding persisted despite noninvasive intervention and Brilinta was held. this does increase risk of InStent thrombosis but in light of active GI bleeding left us with no choice. Will resume antiplatelet drugs depending on EGD results today (4) ESRD (end stage renal disease): Code(s): N18.6 - End stage renal disease Status: Acute Assessment and Plan: patient was hemodialyzed yesterday. Further dialysis as per nephrology (5) Hyperkalemia: Code(s): E87.5 - Hyperkalemia Status: Acute Assessment and Plan: resolved after hemodialysis (6) Pulmonary edema: Code(s): J81.1 - Chronic pulmonary edema Status: Acute Assessment and Plan: improved after hemodialysis yesterday (7) CHF (congestive heart failure): Code(s): I50.9 - Heart failure, unspecified Status: Acute Assessment and Plan: ECHO Summary 1. Left ventricular chamber dimension is mildly enlarged. 2. Left ventricular systolic function is severely reduced, estimated at25-30%. 3. There is moderately increased left ventricular wall thickness. 4. The left ventricular diastolic function is grade II diastolicdysfunction. 5. There is no thrombus visualized in the left ventricle. 6. Global longitudinal strain is abnormal at -6 %. 7. The apex, inferior wall, anterior wall, inferoseptal wall, anterolateralwall, and anteroseptal wall are hypokinetic. 8. Left atrial chamber dimension is mildly enlarged. 9. There is severe aortic valve sclerosis. 10. There is mild mitral valve regurgitation. 11. The mitral valve has calcified annulus. 12. Mild pulmonary hypertension, estimated pulmonary arterial systolic pressure is 43 mmHg. 13. There is mild tricuspid valve regurgitation. 14. There is mild pulmonic regurgitation. (8) Diabetes mellitus: Code(s): E11.9 - Type 2 diabetes mellitus without complications Status: Acute Assessment and Plan: increase sliding scale strength and add Lantus Additional Plan DVT prophylaxis - SCDs Stress ulcer prophylaxis - PPI infusion Nutrition - NPO Code Status - Full Code. no family at bedside Total Critical Care Time - 30 minutes Due to a high probability of clinically significant, life threatening deterioration, the patient required my highest level of preparedness to intervene emergently and
[2020-06-27] MEDS: PROPOFOL IV EMULSION 100 ML 19.3 MG IV CONT (08:07)
[2020-06-27] MEDS: ROSUVASTATIN 10 MG TABLET 20 MG PO (08:09)
--- NOTE | 2020-06-27 08:22 | PM.PNCARD ---
Progress Note: A&P Additional Plan 54-year-old man with challenging difficult case with abrupt stent thrombosis in his LAD yesterday. Following this event he unfortunately has had significant GI bleeding which seems to have tapered off this morning. Hemoglobin has decreased to 9 which is acceptable. Await EGD findings this morning. He needs to be put back on aspirin and Brilinta as soon as possible. His beta-graciela and ARB are on hold because of low blood pressure which is likely a combination of acute hemorrhage and propofol Chance Landis MD [facility] Subjective Date/time seen: Date of service:06/27/20 08:22 Interval history: Follow-up visit in 54-year-old man with complex case coronary artery disease with acute coronary syndrome status post stent to the mid LAD December of 2019. Patient presented yesterday with acute pulmonary edema and evidence of abrupt stent thrombosis in the laborer cutting tool. Successful but challenging and difficult intervention to treat this involving extraction thrombectomy, stent distal to the original device to address significant stenosis in that segment and expanding the original stent using a 4 mm noncompliant balloon. There was question in the chart as to the patient's compliant with his medication he has a history apparently of signing out of the hospital AMA with frequency. Following emergency PCI the patient has had significant GI bleeding from the stomach hemoglobin has dropped to 9 g. With lavage bleeding seems to have cleared largely this morning. Plan is for EGD in the ICU about an hour from now. Until we have those results the patient's aspirin and Brilinta are on hold which is obviously of significant concern given fresh stent in his LAD. Serious comorbidities include end-stage renal disease with chronic hemodialysis and severe vascular disease with right lower extremity amputation today patient is alert and responsive still on the ventilator seems a bit uncomfortable /agitated Exam Const: General: uncomfortable Other: alert 54-year-old man on the ventilator appears to be uncomfortable because of the ET tube HENMT: Mouth: Yes moist mucous membranes Eyes: Sclera: sclerae normal Pupils: Equal, round and reactive pupils present Neck: Neck: supple Thyroid: thyroid normal Other: no apparent carotid bruits Resp: Other: central rhonchi noted bilaterally Cardio: Rate: regular rate and tachycardic Rhythm: regular rhythm GI: Auscultation: normal bowel sounds Skin: General skin exam: normal color Neuro: Other: appears responsive but this still intubated and somewhat sedated Extrem: Other: access site in the right femoral triangle looks fine with no hematoma no ecchymosis no bruits Objective Data Vital Signs Vital Signs: Vital Signs - 24 hr 06/26/20 09:00 06/26/20 09:28 06/26/20 09:30 Temperature 36.5 C Pulse Rate 81 91 Respiratory Rate 23 H Blood Pressure 124/74 Pulse Oximetry 100 100 98 06/26/20 09:45 06/26/20 10:00 06/26/20 10:30 Temperature Pulse Rate 85 83 78 Respiratory Rate 20 20 19 Blood Pressure 124/80 113/67 99/63 L Pulse Oximetry 100 100 100 06/26/20 11:00 06/26/20 12:00 06/26/20 13:00 Temperature 36.8 C Pulse Rate 74 72 72 Respiratory Rate 19 12 19 Blood Pressure 91/61 L 96/65 L 90/53 L Pulse Oximetry 100 100 100 06/26/20 13:55 06/26/20 14:00 06/26/20 14:14 Temperature 36.8 C Pulse Rate 77 84 77 Respiratory Rate 20 Blood Pressure 94/61 L 109/62 Pulse Oximetry 100 100 06/26/20 14:25 06/26/20 14:30 06/26/20 14:45 Temperature Pulse Rate 79 82 83 Respiratory Rate Blood Pressure 96/64 L 95/64 L 94/61 L Pulse Oximetry 06/26/20 15:00 06/26/20 15:15 06/26/20 15:30 Temperature Pulse Rate 87 88 89 Respiratory Rate 21 H Blood Pressure 105/64 104/64 109/66 Pulse Oximetry 100 06/26/20 15:45 06/26/20 16:00 06/26/20 16:15 Temperature 36.5 C Pulse Rate 92 93 96 Respiratory Rate 19 Blood
[2020-06-27] MEDS: INSULIN GLARGINE (*BKC) 100 UNITS/ML 10 UNITS SUB-Q (08:34)
[2020-06-27 08:42] LABS: Glucose Point of Care 328 (65-105)
[2020-06-27] MEDS: MIDAZOLAM HCL 2 MG/2 ML VIAL 4 MG IV PUSH (09:26)
[2020-06-27 09:35] LABS: Prothrombin Time 12.9 Seconds (11.1-14.7)
[2020-06-27] MEDS: MIDAZOLAM HCL 2 MG/2 ML VIAL IV PUSH (09:35)
[2020-06-27] MEDS: ASPIRIN 81 MG CHEWABLE TABLET PO (10:32)
--- NOTE | 2020-06-27 11:40 | PM.PNNEP ---
Progress Note: A&P Assessment and Plan (1) ESRD (end stage renal disease): Code(s): N18.6 - End stage renal disease Status: Acute Assessment and Plan: The patient has end-stage kidney disease. He had dialysis yesterday and did well. Will hold off on dialysis until Monday his usual day. (2) STEMI (ST elevation myocardial infarction): Code(s): I21.3 - ST elevation (STEMI) myocardial infarction of unspecified site Status: Acute Assessment and Plan: Patient had a STEMI. He had a PCI performed. Last stroke was over 13 (3) Acute respiratory failure: Code(s): J96.00 - Acute respiratory failure, unspecified whether with hypoxia or hypercapnia Status: Acute Assessment and Plan: He is on the ventilator now. He is on full support because he is sedated. (4) Upper GI bleed: Code(s): K92.2 - Gastrointestinal hemorrhage, unspecified Status: Acute Assessment and Plan: He has some bleeding going on. His anticoagulants have been discontinued. He is on Protonix. GI has been consulted. scope done and report is pending (5) Acute hyperkalemia: Code(s): E87.5 - Hyperkalemia Status: Acute Assessment and Plan: Potassium is good today. (6) Hypertension: Code(s): I10 - Essential (primary) hypertension Status: Acute Assessment and Plan: Blood pressure is under better control lately. Subjective Date/time seen: 06/27/20 11:40 Interval history: Patient is intubated and sedated. He is a bit agitated, trying to lift his head and moves his arms and legs about. in the room. We discussed the case. Review of Systems Review of Systems: ROS unobtainable: Yes unobtainable due to medical condition Exam Narrative: Exam Narrative: WDWN Gentleman intubated and sedated in the ICU. skin no rash head ncat lungs Course bilaterally cor reg no rub abd BS+ nontender and soft ext no edema. Objective Data Vital Signs Vital Signs: Vital Signs - 24 hr 06/26/20 12:00 06/26/20 13:00 06/26/20 13:55 Temperature 36.8 C Pulse Rate 72 72 77 Respiratory Rate 12 19 Blood Pressure 96/65 L 90/53 L Pulse Oximetry 100 100 100 06/26/20 14:00 06/26/20 14:14 06/26/20 14:25 Temperature 36.8 C Pulse Rate 84 77 79 Respiratory Rate 20 Blood Pressure 94/61 L 109/62 96/64 L Pulse Oximetry 100 06/26/20 14:30 06/26/20 14:45 06/26/20 15:00 Temperature Pulse Rate 82 83 87 Respiratory Rate 21 H Blood Pressure 95/64 L 94/61 L 105/64 Pulse Oximetry 100 06/26/20 15:15 06/26/20 15:30 06/26/20 15:45 Temperature Pulse Rate 88 89 92 Respiratory Rate Blood Pressure 104/64 109/66 111/65 Pulse Oximetry 06/26/20 16:00 06/26/20 16:15 06/26/20 16:30 Temperature 36.5 C Pulse Rate 93 96 97 Respiratory Rate 19 Blood Pressure 129/67 115/69 122/69 Pulse Oximetry 100 06/26/20 16:45 06/26/20 16:47 06/26/20 16:50 Temperature Pulse Rate 100 99 100 Respiratory Rate 14 Blood Pressure 129/66 129/66 Pulse Oximetry 100 100 06/26/20 16:52 06/26/20 16:57 06/26/20 17:00 Temperature Pulse Rate 102 H 102 H 101 H Respiratory Rate 14 23 H Blood Pressure 127/74 131/71 113/69 Pulse Oximetry 100 100 06/26/20 17:02 06/26/20 17:07 06/26/20 17:12 Temperature Pulse Rate 102 H 103 H 104 H Respiratory Rate 19 21 H 21 H Blood Pressure 113/69 112/69 110/69 Pulse Oximetry 100 100 100 06/26/20 17:15 06/26/20 17:17 06/26/20 17:22 Temperature Pulse Rate 103 H 103 H 103 H Respiratory Rate 21 H 21 H Blood Pressure 110/69 110/69 109/73 Pulse Oximetry 100 100 06/26/20 17:27 06/26/20 17:30 06/26/20 17:45 Temperature 36.6 C Pulse Rate 104 H 104 H 106 H Respiratory Rate 23 H 22 H Blood Pressure 113/75 113/75 128/79 Pulse Oximetry 100 100 06/26/20 18:00 06/26/20 19:00 06/26/20 19:40 Temperature 36.6 C Pulse Rate 100 105 H
[2020-06-27] MEDS: PROPOFOL IV EMULSION 100 ML 13.5 MG IV CONT (12:23)
[2020-06-27 12:27] LABS: Glucose Point of Care 255 (65-105)
[2020-06-27 12:48] LABS: Alveolar/Arterial O2 Gradient 122.1 mmHg; Fractional Inspired Oxygen 40 %; HCO3 ABG 27.2 mEq/l (22.0-26.0); Oxygen Content ABG 12.9 %vol (16.0-22.0); Oxygen Saturation ABG 98.4 % (95.0-100.0); PCO2 ABG 40.2 mmHg (35.0-45.0); PO2 ABG 116.9 mmHg (80.0-100.0); PO2 FiO2 Ratio Arterial Blood 2.92 %; Total Hemoglobin 9.3 g/dL (12.0-18.0); pH ABG 7.449 (7.350-7.450)
[2020-06-27 12:49] LABS: Arterial Blood Gas PEEP 5 cmH2O; Arterial Blood Gas Pressure Support 5 cmH2O; Arterial Blood Gas Vent Mode SPONTANEOUS; Device VENTILATOR; Site Drawn RIGHT BRACHIAL
[2020-06-27 13:03] LABS: Hematocrit 25.6 % (42.0-52.0); Hemoglobin 8.3 g/dL (14.0-18.0)
[2020-06-27] MEDS: SODIUM CHLORIDE 0.9% IV 250 ML 30 ML IV CONT (15:43)
[2020-06-27 17:06] LABS: Glucose Point of Care 166 (65-105)
[2020-06-27] MEDS: TICAGRELOR 90 MG TABLET PO (20:06)
[2020-06-27 20:16] LABS: Glucose Point of Care 188 (65-105)
[2020-06-28] VITALS (15 sets, daily range): BP systolic 123–173; BP diastolic 61–87; PULSE 89–120; RESP 12–25; TEMP 36.4–37.1; O2SAT 92–98
--- NOTE | 2020-06-28 06:28 | PM.PNCARD ---
Progress Note: A&P Additional Plan 54-year-old man with: Acute myocardial infarction with abrupt stent thrombosis of the LAD. Device was placed in December of this year and appeared to be undersized. Underwent somewhat difficult but successful PCI involving extraction thrombectomy. Stenting distal to the original device and up sizing the original stent with a 4.0 mm balloon. Patient had significant GI bleeding following the event found to have a gastric ulcer which was cauterized yesterday morning. He is now back on dual anti-platelet therapy. Patient is off of pressors and hypertensive. I will resume his losartan and carvedilol today. In my opinion he can move from the ICU to IMU and he is a potential candidate for discharge no earlier than tomorrow. Patient was asking if he can be discharged today and I told him that was not realistic Chance Landis MD [facility] Subjective Date/time seen: Date of service:06/28/20 06:28 Interval history: Follow-up visit in 54-year-old man with complex case coronary artery disease with acute coronary syndrome status post stent to the mid LAD December of 2019. Patient presented yesterday with acute pulmonary edema and evidence of abrupt stent thrombosis in the electronic lab technician. Successful but challenging and difficult intervention to treat this involving extraction thrombectomy, stent distal to the original device to address significant stenosis in that segment and expanding the original stent using a 4 mm noncompliant balloon. There was question in the chart as to the patient's compliant with his medication he has a history apparently of signing out of the hospital AMA with frequency. Following emergency PCI the patient has had significant GI bleeding from the stomach hemoglobin has dropped to 9 g. With lavage bleeding seems to have cleared largely this morning. Plan is for EGD in the ICU about an hour from now. Until we have those results the patient's aspirin and Brilinta are on hold which is obviously of significant concern given fresh stent in his LAD. 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 He understands the event very well. He reports that he was compliant with his medications including his aspirin and clopidogrel. His only complaint today is that he would like to be fed, he has been NPO since admission Exam Const: General: comfortable and no acute distress HENMT: Mouth: Yes moist mucous membranes Eyes: Sclera: sclerae normal Pupils: Equal, round and reactive pupils present Neck: Neck: supple and no JVD Thyroid: thyroid normal Resp: Effort & Inspection: normal respiratory effort Auscultation: clear to auscultation bilaterally Cardio: Rate: regular rate Rhythm: regular rhythm Other: S4 gallop is evident GI: Auscultation: normal bowel sounds Skin: General skin exam: normal color Neuro: Cognition (Neuro): normal cognition Extrem: General: normal to inspection Objective Data Vital Signs Vital Signs: Vital Signs - 24 hr 06/27/20 07:10 06/27/20 08:00 06/27/20 08:07 Temperature 37.1 C Pulse Rate 105 H 107 H 105 H Respiratory Rate 25 H 18 25 H Blood Pressure 111/64 Pulse Oximetry 100 06/27/20 08:30 06/27/20 09:26 06/27/20 09:31 Temperature Pulse Rate 112 H 115 H 110 H Respiratory Rate 21 H 21 H Blood Pressure 109/55 L 88/55 L Pulse Oximetry 100 100 100 06/27/20 09:36 06/27/20 09:41 06/27/20 10:00 Temperature Pulse Rate 110 H 111 H 109 H Respiratory Rate 21 H 21 H 18 Blood Pressure 93/68 L 120/57 L 136/67 Pulse Oximetry 100 100 100 06/27/20 10:51 06/27/20 10:59 06/27/20 11:35 Temperature Pulse Rate 108 H 110 H 107 H Respiratory Rate 25 H 18 Blood Pressure Pulse Oximetry 100
[2020-06-28 08:51] LABS: Hematocrit 25.8 % (42.0-52.0); Hemoglobin 8.5 g/dL (14.0-18.0); Mean Corpuscular HGB Conc 32.9 g/dl (32-36); Mean Corpuscular Hemoglobin 30.7 pg (26-34); Mean Corpuscular Volume 93.1 fl (80-100); Mean Platelet Volume 10.4 fl (7.4-10.4); Platelet Count Result 308 k/mm3 (150-375); Red Blood Count 2.77 M/mm3 (4.6-6.20); Red Cell Distribution Width 16.7 % (11.5-14.5); White Blood Count 15.9 K/mm3 (4.5-10.0)
[2020-06-28 08:52] LABS: Alanine Aminotransferase 35 U/L (4-50); Albumin Level 3.2 g/dL (3.5-5.1); Alkaline Phosphatase 82 U/L (38-126); Anion Gap 15 mmol/L (8-16); Aspartate Amino Transferase 116 U/L (17-59); Bilirubin,Total 0.4 mg/dL (0.2-1.3); Blood Urea Nitrogen 26 mg/dL (9-20); Calcium 8.1 mg/dL (8.4-10.2); Carbon Dioxide 27 mmol/L (22-30); Chloride 84 mmol/L (98-107); Estimated CRCL calculation 9 ml/min; Estimated Glomerular Filt Rate 7; Glucose 477 mg/dL (75-110); Magnesium 2.7 mg/dL (1.6-2.3); Potassium 4.3 mmol/L (3.4-5.0); Sodium 126 mmol/L (137-145)
--- NOTE | 2020-06-28 09:00 | WPDINTPN ---
Progress Note: A&P Assessment and Plan (1) Acute respiratory failure: Code(s): J96.00 - Acute respiratory failure, unspecified whether with hypoxia or hypercapnia Status: Acute Assessment and Plan: Acute Respiratory failure secondary to STEMI and pulmonary edema patient extubated after successful weaning trial yesterday and now saturating well on room air fluid was removed with hemodialysis (2) Upper GI bleed: Code(s): K92.2 - Gastrointestinal hemorrhage, unspecified Status: Acute Assessment and Plan: patient rodriguez had coffee-ground section coming out of his OG tube on arrival to ICU. patient was on Angiomax which was discontinued and patient was started on Protonix infusion. GI was consulted. bleeding persisted and patient underwent EGD yesterday which showed nonbleeding ulcers which were cauterized. Patient was NPO with NG tube but he pulled out his NG tube and threatened to leave against medical advice unless started on a diet. Patient was started on clear liquid diet after discussion with GI physician. Patient was transfused 1 unit of packed red cells yesterday. Patient denies any new episodes of vomiting and nausea. Discussed with Dr. Reynoso of GI. Will advance diet today. Discontinue Protonix infusion and switched to IVP PPI twice a day aspirin and Brilinta were resumed yesterday after EGD continue monitoring of hemoglobin for another 24 hours (3) STEMI (ST elevation myocardial infarction): Code(s): I21.3 - ST elevation (STEMI) myocardial infarction of unspecified site Status: Acute Assessment and Plan: status post complicated PCI with stent placement in LAD echo reviewed aspirin and Brilinta was resumed after EGD yesterday on Coreg and losartan (4) ESRD (end stage renal disease): Code(s): N18.6 - End stage renal disease Status: Acute Assessment and Plan: patient was hemodialyzed 06/27 Further dialysis as per nephrology (5) Hyperkalemia: Code(s): E87.5 - Hyperkalemia Status: Acute Assessment and Plan: resolved after hemodialysis (6) Pulmonary edema: Code(s): J81.1 - Chronic pulmonary edema Status: Acute Assessment and Plan: improved after hemodialysis yesterday (7) CHF (congestive heart failure): Code(s): I50.9 - Heart failure, unspecified Status: Acute Assessment and Plan: ECHO Summary 1. Left ventricular chamber dimension is mildly enlarged. 2. Left ventricular systolic function is severely reduced, estimated at25-30%. 3. There is moderately increased left ventricular wall thickness. 4. The left ventricular diastolic function is grade II diastolicdysfunction. 5. There is no thrombus visualized in the left ventricle. 6. Global longitudinal strain is abnormal at -6 %. 7. The apex, inferior wall, anterior wall, inferoseptal wall, anterolateralwall, and anteroseptal wall are hypokinetic. 8. Left atrial chamber dimension is mildly enlarged. 9. There is severe aortic valve sclerosis. 10. There is mild mitral valve regurgitation. 11. The mitral valve has calcified annulus. 12. Mild pulmonary hypertension, estimated pulmonary arterial systolic pressure is 43 mmHg. 13. There is mild tricuspid valve regurgitation. 14. There is mild pulmonic regurgitation. (8) Diabetes mellitus: Code(s): E11.9 - Type 2 diabetes mellitus without complications Status: Acute Assessment and Plan: who restarted q.12 on Lantus and continue sliding scale. Blood sugar is high this morning will adjust depending on levels after treatment Additional Plan DVT prophylaxis - SCDs Stress ulcer prophylaxis - PPI IV Nutrition - advance diet Code Status - Full Code. Patient is adamant that he wants his nicotine patch otherwise he will leave against medical advise to smoke outside. Patient is now close to 3 days out of his MT.I have reluctantl
--- NOTE | 2020-06-28 09:39 | PM.PNNEP ---
Progress Note: A&P Assessment and Plan (1) ESRD (end stage renal disease): Code(s): N18.6 - End stage renal disease Status: Acute Assessment and Plan: The patient has end-stage kidney disease. Dialysis is due tomorrow (2) STEMI (ST elevation myocardial infarction): Code(s): I21.3 - ST elevation (STEMI) myocardial infarction of unspecified site Status: Acute Assessment and Plan: Patient had a STEMI. He had a PCI performed. Last troponin was over 13 it is clearly dangerous for him to leave the hospital. He understands this. (3) Acute respiratory failure: Code(s): J96.00 - Acute respiratory failure, unspecified whether with hypoxia or hypercapnia Status: Acute Assessment and Plan: This is improved. He is off the ventilator. (4) Upper GI bleed: Code(s): K92.2 - Gastrointestinal hemorrhage, unspecified Status: Acute Assessment and Plan: He has some bleeding going on. His anticoagulants have been discontinued. He is on Protonix. GI has been consulted. reported endoscope showing something. Report pending presuming it was done. (5) Acute hyperkalemia: Code(s): E87.5 - Hyperkalemia Status: Acute Assessment and Plan: Potassium is good today. (6) Hypertension: Code(s): I10 - Essential (primary) hypertension Status: Acute Assessment and Plan: Blood pressure is under better control lately. Right now it is a bit high but he is somewhat anxious. Subjective Date/time seen: 06/28/20 09:39 Interval history: Patient is Extubated. When I entered the room he was standing at the side of the bed. spanish interpreter leads and phone were all tangled up. His bed clothes are string throughout the room and on his bed and he has several belongings including a pocket knife in his bed. I helped clear his bed off and on tingle him and got him back into bed. He is alert and oriented but he is talking about signing out against medical advice. He has done this before. He understands this is bad for him but he is just too anxious to stay in the hospital. I told him that the more he signs out AMA the more likely it is that he would come back into the hospital which is where he does not want to be. Review of Systems Cardiovascular: Cardiovascular: Reports no additional cardiovascular complaints Respiratory: Respiratory: Reports no additional respiratory complaints Gastrointestinal: Gastrointestinal: Reports no additional gastrointestinal complaints Genitourinary: Genitourinary: Reports no additional male genitourinary complaints Exam Narrative: Exam Narrative: WDWN Gentleman intubated and sedated in the ICU. skin no rash head ncat lungs Course bilaterally cor reg no rub abd BS+ nontender and soft ext no edema. Objective Data Vital Signs Vital Signs: Vital Signs - 24 hr 06/27/20 09:41 06/27/20 10:00 06/27/20 10:51 Temperature Pulse Rate 111 H 109 H 108 H Respiratory Rate 21 H 18 25 H Blood Pressure 120/57 L 136/67 Pulse Oximetry 100 100 06/27/20 10:59 06/27/20 11:35 06/27/20 12:00 Temperature 37.2 C Pulse Rate 110 H 107 H 106 H Respiratory Rate 18 27 H Blood Pressure 131/62 Pulse Oximetry 100 99 06/27/20 12:23 06/27/20 13:18 06/27/20 13:19 Temperature Pulse Rate 106 H 107 H 107 H Respiratory Rate 28 H 14 14 Blood Pressure Pulse Oximetry 06/27/20 13:20 06/27/20 14:00 06/27/20 15:23 Temperature 36.6 C Pulse Rate 114 H 106 H Respiratory Rate 11 L 14 Blood Pressure 137/77 133/64 Pulse Oximetry 99 97 95 06/27/20 15:40 06/27/20 15:51 06/27/20 16:00 Temperature 36.5 C 36.5 C Pulse Rate 110 H 110 H 108 H Respiratory Rate 18 18 Blood Pressure 171/83 H 171/83 H Pulse Oximetry 99 99 06/27/20 16:40 06/27/20 18:00 06/27/20 20:00 Temperature 36.5 C 36.9 C Pulse Rate 114 H 115 H 121 H Respiratory Rate
[2020-06-28] MEDS: PANTOPRAZOLE SODIUM IV 40 MG VIAL IV PUSH ×2 (09:45→20:54)
[2020-06-28] MEDS: ASPIRIN 81 MG CHEWABLE TABLET PO (09:45)
[2020-06-28] MEDS: carvediloL 12.5 MG TABLET PO ×2 (09:46→20:54)
[2020-06-28] MEDS: INSULIN GLARGINE (*BKC) 100 UNITS/ML 12 UNITS SUB-Q ×2 (09:46→20:54)
[2020-06-28] MEDS: TICAGRELOR 90 MG TABLET PO ×2 (09:47→20:54)
[2020-06-28] MEDS: LOSARTAN POTASSIUM 100 MG TABLET PO (09:47)
[2020-06-28] MEDS: INSULIN ASPART (*BKC) 100 UNITS/ML SUB-Q ×4 (09:47→23:50)
[2020-06-28] MEDS: ROSUVASTATIN 10 MG TABLET 20 MG PO (09:51)
--- NOTE | 2020-06-28 09:55 | WPDGIPROGNO ---
Progress Note: A&P Assessment and Plan (1) Gastric ulcer: Code(s): K25.9 - Gastric ulcer, unspecified as acute or chronic, without hemorrhage or perforation Status: Acute Assessment and Plan: he has gastric ulcers without visible vessel but treated with gold probe yesterday now he is on ppi bid, ok to advance diet hb stable after blood transfusion dual antiplatelet therapy was resumed given recent STEMI with thrombosis in LAD stent which was treated by cardiology. Dr Pacheco will resume care tomorrow. (2) Upper GI bleed: Code(s): K92.2 - Gastrointestinal hemorrhage, unspecified Status: Acute Assessment and Plan: stable and no more episodes of hematemesis, now he is hemodynamically stable monitor h/h ppi bid (3) Acute blood loss anemia: Code(s): D62 - Acute posthemorrhagic anemia Status: Acute (4) STEMI (ST elevation myocardial infarction): Code(s): I21.3 - ST elevation (STEMI) myocardial infarction of unspecified site Status: Acute Assessment and Plan: by cardiology, he is now back on dual anti-platelet therapy (5) ESRD (end stage renal disease): Code(s): N18.6 - End stage renal disease Status: Acute Assessment and Plan: nephrology on board Subjective Date/time seen: 06/28/20 09:55 Interval history: yesterday I found 4 non-bleeding gastric ulcers treated with gold probe, he was extubated and removed OGT. No more report of bleeding and tolerated liquid diet, no vomiting. Patient is anxious to go home. Review of Systems Review of Systems: All systems reviewed & are unremarkable except as noted in HPI and below Exam Const: General: comfortable and no acute distress Other: anxious, he is aaox3 HENMT: General nose exam: Normal nares present Eyes: General: appearance normal, both eyes and all related structures Neck: Neck: no JVD Resp: Auscultation: clear to auscultation bilaterally Cardio: Rate: regular rate Rhythm: regular rhythm Heart sounds: Gallop heart sound present GI: Inspection: non-distended GI Palp: Yes Soft to palpation and No Tenderness to palpation present (GI) Auscultation: normal bowel sounds Skin: General skin exam: no erythema Neuro: General: gait normal Speech: normal speech Extrem: General: normal to inspection Psych: Affect: Anxious affect present Objective Data Vital Signs Vital Signs: Vital Signs - 24 hr 06/27/20 10:00 06/27/20 10:51 06/27/20 10:59 Temperature Pulse Rate 109 H 108 H 110 H Respiratory Rate 18 25 H 18 Blood Pressure 136/67 Pulse Oximetry 100 06/27/20 11:35 06/27/20 12:00 06/27/20 12:23 Temperature 99 F Pulse Rate 107 H 106 H 106 H Respiratory Rate 27 H 28 H Blood Pressure 131/62 Pulse Oximetry 100 99 06/27/20 13:18 06/27/20 13:19 06/27/20 13:20 Temperature Pulse Rate 107 H 107 H Respiratory Rate 14 14 Blood Pressure Pulse Oximetry 99 06/27/20 14:00 06/27/20 15:23 06/27/20 15:40 Temperature 97.9 F 97.7 F Pulse Rate 114 H 106 H 110 H Respiratory Rate 11 L 14 18 Blood Pressure 137/77 133/64 171/83 H Pulse Oximetry 97 95 99 06/27/20 15:51 06/27/20 16:00 06/27/20 16:40 Temperature 97.7 F 97.7 F Pulse Rate 110 H 108 H 114 H Respiratory Rate 18 6 L Blood Pressure 171/83 H 179/80 H Pulse Oximetry 99 100 06/27/20 18:00 06/27/20 20:00 06/27/20 22:00 Temperature 98.4 F Pulse Rate 115 H 121 H 118 H Respiratory Rate 16 20 26 H Blood Pressure 151/73 H 172/77 H 182/78 H Pulse Oximetry 95 95 90 06/28/20 00:00 06/28/20 02:00 06/28/20 04:00 Temperature Pulse Rate 107 H 110 H 107 H Respiratory Rate 20 25 H 21 H Blood Pressure 130/61 166/81 H 158/63 H Pulse Oximetry 92 93 93 06/28/20 06:00 06/28/20 08:00 06/28/20 09:46 Temperature 98.3 F Pulse Rate 106 H 109 H 120 H Respiratory Rate 12 22 H Blood Pressure 157/68 H 173/84 H Pulse Oximetry 95 97 Intake/Output Intake/Output: Intake & Output
[2020-06-28] MEDS: NICOTINE (*PBKC) 21 MG PATCH 1 PATCH TRANSDERM (11:00)
[2020-06-28 12:39] LABS: Glucose Point of Care 393 (65-105)
[2020-06-28 17:06] LABS: Glucose Point of Care 176 (65-105)
[2020-06-28 17:17] LABS: Hematocrit 24.5 % (42.0-52.0); Hemoglobin 8.1 g/dL (14.0-18.0)
--- NOTE | 2020-06-28 18:31 | PC.NURSE ---
This patient, Ish Corley, was transferred to [facility] on 06/28/20 at 1805 via wheelchair with Rn x2. Personal belongings sent with patient. Belongings list checked and signed with receiving RN. Report given to ADILENE Ledezma. Appropriate documentation sent with patient.
[2020-06-28 20:36] LABS: Glucose Point of Care 249 (65-105)
[2020-06-28 23:33] LABS: Glucose Point of Care 268 (65-105)
[2020-06-29] VITALS (33 sets, daily range): BP systolic 120–186; BP diastolic 62–94; PULSE 84–109; RESP 12–20; TEMP 36.5–37; O2SAT 97–100
[2020-06-29 05:19] LABS: Glucose Point of Care 142 (65-105)
[2020-06-29] MEDS: METOPROLOL TARTRATE INJ 5 MG/5 ML VIAL IV PUSH (05:21)
[2020-06-29 05:49] LABS: Hematocrit 23.9 % (42.0-52.0); Hemoglobin 7.9 g/dL (14.0-18.0); Mean Corpuscular HGB Conc 33.1 g/dl (32-36); Mean Corpuscular Hemoglobin 30.5 pg (26-34); Mean Corpuscular Volume 92.3 fl (80-100); Platelet Count Result 292 k/mm3 (150-375); Red Blood Count 2.59 M/mm3 (4.6-6.20); Red Cell Distribution Width 16.4 % (11.5-14.5); White Blood Count 12.6 K/mm3 (4.5-10.0)
[2020-06-29 06:15] LABS: Alanine Aminotransferase 30 U/L (4-50); Albumin Level 3.2 g/dL (3.5-5.1); Alkaline Phosphatase 74 U/L (38-126); Anion Gap 13 mmol/L (8-16); Aspartate Amino Transferase 75 U/L (17-59); Bilirubin,Total 0.3 mg/dL (0.2-1.3); Blood Urea Nitrogen 77 mg/dL (9-20); Carbon Dioxide 29 mmol/L (22-30); Chloride 88 mmol/L (98-107); Estimated CRCL calculation 7 ml/min; Estimated Glomerular Filt Rate 5; Glucose 132 mg/dL (75-110); Magnesium 2.9 mg/dL (1.6-2.3); Potassium 3.6 mmol/L (3.4-5.0); Sodium 130 mmol/L (137-145)
--- NOTE | 2020-06-29 08:23 | PM.PNNEP ---
Progress Note: A&P Assessment and Plan (1) ESRD (end stage renal disease): Code(s): N18.6 - End stage renal disease Status: Acute Assessment and Plan: The patient has end-stage kidney disease. Dialysis is due today. I talked with nursing. I wrote orders. (2) STEMI (ST elevation myocardial infarction): Code(s): I21.3 - ST elevation (STEMI) myocardial infarction of unspecified site Status: Acute Assessment and Plan: Patient had a STEMI. He had a PCI performed. Last troponin was over 13 Cardiology on board. (3) Acute respiratory failure: Code(s): J96.00 - Acute respiratory failure, unspecified whether with hypoxia or hypercapnia Status: Acute Assessment and Plan: This is improved. He is off the ventilator. Breathing comfortably on room air. (4) Upper GI bleed: Code(s): K92.2 - Gastrointestinal hemorrhage, unspecified Status: Acute Assessment and Plan: He had endoscopies done which showed for ulcers. He is on IV Protonix (5) Acute hyperkalemia: Code(s): E87.5 - Hyperkalemia Status: Acute Assessment and Plan: Potassium is Normal. (6) Hypertension: Code(s): I10 - Essential (primary) hypertension Status: Acute Assessment and Plan: Blood pressure is Mostly good. Overnight it was in the 120s. It is high this morning but we will be removing fluid with dialysis. Subjective Date/time seen: 06/29/20 08:23 Interval history: the patient is feeling better today. He decided to stick around. He is due for dialysis today. He has some swelling Review of Systems Cardiovascular: Cardiovascular: Reports no additional cardiovascular complaints Respiratory: Respiratory: Reports no additional respiratory complaints Gastrointestinal: Gastrointestinal: Reports no additional gastrointestinal complaints Genitourinary: Genitourinary: Reports no additional male genitourinary complaints Exam Narrative: Exam Narrative: WDWN Gentleman intubated and sedated in the ICU. skin no rash head ncat lungs Course bilaterally cor reg no rub abd BS+ nontender and soft ext 1+ edema. Objective Data Vital Signs Vital Signs: Vital Signs - 24 hr 06/28/20 09:46 06/28/20 10:00 06/28/20 12:00 Temperature 37.1 C Pulse Rate 120 H 108 H 101 H Respiratory Rate 25 H 16 Blood Pressure 173/87 H 123/66 Pulse Oximetry 97 96 06/28/20 14:00 06/28/20 16:00 06/28/20 18:00 Temperature 36.9 C Pulse Rate 95 91 98 Respiratory Rate 15 Blood Pressure 139/63 Pulse Oximetry 98 06/28/20 20:00 06/28/20 20:54 06/28/20 22:00 Temperature 36.4 C L Pulse Rate 92 97 100 Respiratory Rate 20 Blood Pressure 139/66 Pulse Oximetry 98 06/28/20 23:42 06/29/20 00:00 06/29/20 02:00 Temperature 36.6 C Pulse Rate 97 99 90 Respiratory Rate 20 Blood Pressure 123/68 Pulse Oximetry 98 06/29/20 04:00 06/29/20 05:21 06/29/20 06:00 Temperature 36.6 C Pulse Rate 99 95 84 Respiratory Rate 20 Blood Pressure 174/70 H Pulse Oximetry 99 Intake/Output Intake/Output: Intake & Output 06/26/20 06/27/20 06/28/20 06/29/20 23:59 23:59 23:59 23:59 Intake Total 3182 2560 1380 250 Output Total 4290 1050 0 Balance -1108 1510 1380 250 Meds/Results Medications: Active Medications Generic Name Dose Route Start Last Admin Trade Name Freq PRN Reason Stop Dose Admin Aspirin 81 mg 06/27/20 08:00 06/28/20 09:45 Aspirin Chewable PO 81 mg DAILY@0800 MARTHA Administration Carvedilol 12.5 mg 06/26/20 09:00 06/28/20 20:54 Coreg PO 12.5 mg Q12HR MARTHA Administration Dextrose 12.5 gm 06/27/20 08:05 Dextrose 50% Syringe IV PUSH PRN PRN Hypoglycemia Protocol Glucagon 1 mg 06/27/20 08:05 Glucagon For Inj IM PRN PRN Hypoglycemia Protocol Glucose 15 gm 06/27/20 08:05 Glutose 1
[2020-06-29] MEDS: NICOTINE (*PBKC) 21 MG PATCH 1 PATCH TRANSDERM (08:30)
--- NOTE | 2020-06-29 08:30 | P.CDI_ITS ---
CDI Query Clarification Request - Acute CHF has been documented - Echo results documented, EF 25-30%, grad II diastolic dysfunction - Coders cannot code type of CHF from echo results Please clarify type of CHF: * Systolic * Diastolic * Both systolic and diastolic * Unable to determine
[2020-06-29 08:40] LABS: Glucose Point of Care 104 (65-105)
--- NOTE | 2020-06-29 09:05 | PC.NURSE ---
Patient to dialysis via bed. Report given to ADILENE Lyn.
--- NOTE | 2020-06-29 11:00 | WPDGIPROGNO ---
Progress Note: A&P Additional Plan patient with no additional bleeding. Feels good today. Tolerating diet. Anxious to go home. Denies abdominal pain or bleeding. Physical exam reveals patient to be alert. He is anicteric. Vital signs stable. HEENT exam unremarkable. Lungs are clear. Heart without murmur. Abdomen bowel sounds present soft nontender with no organomegaly. Impression 1. Gastric ulcer. Identified by EGD over the weekend. Cautery applied. It was no longer bleeding at time of endoscopy. Plan to avoid nonsteroidal anti-inflammatory agents. Continue Protonix. Follow-up EGD in 2 months advised. Advance diet as tolerated. 2. Acute [place]. Status post stents. Try to hold off on anticoagulants for a week given the recent upper GI blood loss from ulcer. 3. End-stage renal disease. Dr. Huynh seeing for dialysis. Subjective Date/time seen: 06/29/20 11:00 Objective Data Vital Signs Vital Signs: Vital Signs - 24 hr 06/28/20 12:00 06/28/20 14:00 06/28/20 16:00 Temperature 98.7 F 98.4 F Pulse Rate 101 H 95 91 Respiratory Rate 16 15 Blood Pressure 123/66 139/63 Pulse Oximetry 96 98 06/28/20 18:00 06/28/20 20:00 06/28/20 20:54 Temperature 97.5 F L Pulse Rate 98 92 97 Respiratory Rate 20 Blood Pressure 139/66 Pulse Oximetry 98 06/28/20 22:00 06/28/20 23:42 06/29/20 00:00 Temperature 97.9 F Pulse Rate 100 97 99 Respiratory Rate 20 Blood Pressure 123/68 Pulse Oximetry 98 06/29/20 02:00 06/29/20 04:00 06/29/20 05:21 Temperature 97.9 F Pulse Rate 90 99 95 Respiratory Rate 20 Blood Pressure 174/70 H Pulse Oximetry 99 06/29/20 06:00 06/29/20 08:00 06/29/20 09:15 Temperature 97.7 F 98.3 F Pulse Rate 84 88 96 Respiratory Rate 18 12 Blood Pressure 178/67 H 184/94 H Pulse Oximetry 97 06/29/20 09:25 06/29/20 09:30 06/29/20 09:45 Temperature Pulse Rate 92 90 89 Respiratory Rate Blood Pressure 176/93 H 172/85 H 168/85 H Pulse Oximetry 06/29/20 10:00 06/29/20 10:15 06/29/20 10:30 Temperature Pulse Rate 89 89 89 Respiratory Rate Blood Pressure 155/77 H 154/78 H 150/79 H Pulse Oximetry 06/29/20 10:45 Temperature Pulse Rate 90 Respiratory Rate Blood Pressure 156/76 H Pulse Oximetry Intake/Output Intake/Output: Intake & Output 06/26/20 06/27/20 06/28/20 06/29/20 23:59 23:59 23:59 23:59 Intake Total 3182 2560 1380 250 Output Total 4290 1050 0 Balance -1108 1510 1380 250 Meds/Results Medications: Active Medications Generic Name Dose Route Start Last Admin Trade Name Freq PRN Reason Stop Dose Admin Aspirin 81 mg 06/27/20 08:00 06/28/20 09:45 Aspirin Chewable PO 81 mg DAILY@0800 MARTHA Administration Carvedilol 12.5 mg 06/26/20 09:00 06/28/20 20:54 Coreg PO 12.5 mg Q12HR MARTHA Administration Dextrose 12.5 gm 06/27/20 08:05 Dextrose 50% Syringe IV PUSH PRN PRN Hypoglycemia Protocol Glucagon 1 mg 06/27/20 08:05 Glucagon For Inj IM PRN PRN Hypoglycemia Protocol Glucose 15 gm 06/27/20 08:05 Glutose 15 PO PRN PRN Hypoglycemia Protocol Hydromorphone HCl 1 mg 06/27/20 21:44 06/29/20 08:40 Dilaudid Inj IV PUSH 1 mg Q3H PRN Administration Pain Rated 7-10 Dextrose 1,000 mls @ 100 mls/hr 06/27/20 08:05 Dextrose 5% 1,000 Ml IVPB PRN PRN Hypoglycemia Protocol Albumin Human 50 mls @ 999 mls/hr 06/29/20 09:53 Albutein IVPB 06/30/20 09:54 Q10M PRN HYPOTENSION Insulin Aspart 4 - 8 units 06/27/20 09:00 06/29/20 08:28 Novolog SUB-Q Not Given Q4HR MARTHA Protocol Insulin Glargine 12 units 06/28/20 21:00 06/28/20 20:54 Lantus SUB-Q 12 units Q12H MARTHA Administration Losartan Potassium 100 mg 06/26/20 09:00 06/28/20 09:47 Cozaar PO 100 mg DAILY MARTHA Administration Metoprolol Tartrate 5 mg 06/28/20 10:01 06/29/20 05:21 Lopressor Inj
[2020-06-29] MEDS: EPOETIN ALFA-EPBX 10,000 UNITS/ML VIAL 10000 UNITS IV PUSH (11:23)
--- NOTE | 2020-06-29 11:24 | PCDIET ---
Nutrition Follow-Up Complete: Nutrition Diagnosis: Inadequate oral intake at present related to oral intubation as evidenced by NPO status. Nutrition Goal: Patient to meet estimated nutritional needs. Goal in progress. Patient extubated and transferred to IMU. Now on renal dialysis diet with 100% consumption recorded on 06/28/20. Patient off unit for dialysis at time of visit. Last recorded weight is 67.8 kg which is increased from last review, but stable with last two days. Bowel Motility: +BM today. Labs Reviewed: Hgb (7.9), Hct (23.9), Glu (142), BUN (77), Cr (10.0), Na (130), Alb (3.2), Dede Ca (8.64) Meds Noted: Albumin, Novolog, Lantus, Protonix Additional Notes: No skin breakdown documented. Will continue to monitor with same goal. Nutrition Monitoring and Evaluation: Follow up every 5 days.
--- NOTE | 2020-06-29 12:50 | PM.EVENT ---
Event Note Event Note Event Note: On dialysis and tolerating it well. Fluid coming off well. Blood pressure is okay he was seen at 12:30 p.m.
[2020-06-29] MEDS: carvediloL 12.5 MG TABLET PO (14:03)
[2020-06-29] MEDS: ROSUVASTATIN 10 MG TABLET 20 MG PO (14:03)
[2020-06-29] MEDS: ASPIRIN 81 MG CHEWABLE TABLET PO (14:03)
[2020-06-29] MEDS: TICAGRELOR 90 MG TABLET PO ×2 (14:04→21:23)
[2020-06-29] MEDS: LOSARTAN POTASSIUM 100 MG TABLET PO (14:04)
--- NOTE | 2020-06-29 15:08 | PC.NURSE ---
1345 Patient returned to room following dialysis.
--- NOTE | 2020-06-29 15:44 | PM.PNCARD ---
Progress Note: A&P Assessment and Plan (1) STEMI (ST elevation myocardial infarction): Code(s): I21.3 - ST elevation (STEMI) myocardial infarction of unspecified site Status: Acute Assessment and Plan: 06/26/2020:Acute myocardial infarction with abrupt stent thrombosis of the LAD. Device was placed in December of this year and appeared to be undersized. Underwent somewhat difficult but successful PCI involving extraction thrombectomy. Stenting distal to the original device and up sizing the original stent with a 4.0 mm balloon. Since he was compliant with aspirin and clopidogrel with a stent thrombosis he will need to be on Brilinta 90 mg q.12 hours for at least 1 year. GI bleed post procedure. Angiomax was discontinued. Aspirin and Brilinta were held. Underwent endoscopy with the findings of an ulcer that was not bleeding at the time but this was cauterized. Aspirin and Brilinta have been resumed. H&H still drifting Was hypotensive and on pressors. Off pressors and then hypertensive. Carvedilol and losartan resumed. He states that he was on carvedilol 50 mg in the morning and 25 mg in the evening. Will increase to 25 mg Q.12 hours at this point. Continue losartan 100 mg daily. Echo 06/26/2020: 1. Left ventricular chamber dimension is mildly enlarged. 2. Left ventricular systolic function is severely reduced, estimated at 25-30%. 3. There is moderately increased left ventricular wall thickness. 4. The left ventricular diastolic function is grade II diastolic dysfunction. 5. There is no thrombus visualized in the left ventricle. 6. Global longitudinal strain is abnormal at -6 %. 7. The apex, inferior wall, anterior wall, inferoseptal wall, anterolateral wall, and anteroseptal wall are hypokinetic. 8. Left atrial chamber dimension is mildly enlarged. 9. There is severe aortic valve sclerosis. 10. There is mild mitral valve regurgitation. 11. The mitral valve has calcified annulus. 12. Mild pulmonary hypertension, estimated pulmonary arterial systolic pressure is 43 mmHg. 13. There is mild tricuspid valve regurgitation. 14. There is mild pulmonic regurgitation. (2) Acute blood loss anemia: Code(s): D62 - Acute posthemorrhagic anemia Status: Acute Assessment and Plan: Due to GI bleed. H&H as above. Dr. Hsu following. (3) ESRD (end stage renal disease): Code(s): N18.6 - End stage renal disease Status: Acute Assessment and Plan: Management per Dr. Huynh. Dialysis days Monday, Monday, Monday. Tolerated dialysis well today. 3 L removed. Will leave the resumption diuretics up to Dr. Huynh. (4) Neck pain: Code(s): M54.2 - Cervicalgia Status: Acute Assessment and Plan: Has been receiving Dilaudid for his pain. He is to follow up with his primary care provider regarding this pain. Will discontinue Dilaudid and try tramadol 50 mg every 6 hours. Additional Plan Anticipate discharge within the next 24-[address] Landis 1610 06/29/2020 Subjective Date/time seen: 06/29/20 15:44 Interval history: Follow up for: abrupt stent thrombosis in his LAD with challenging intervention on 06/26/2020, respiratory failure withpulmonary edema requiring intubation, GI bleed, end-stage renal disease on dialysis Date of service: 06/29/2020 Subjective: Denied chest discomfort, shortness of breath or lightheadedness. Has neck pain. Has been receiving dilaudid for this Review of Systems Constitutional: Constitutional: Denies chills, Denies fatigue and Denies weakness Eyes: Eyes: Denies blurry vision ENT: Reports Normal hearing present and Denies epistaxis Cardiovascular: Cardiovascular: Denies chest pain, Denies pedal edema, Denies lightheadedness, Denies palpitations and Denies orthopnea Re
[2020-06-29] MEDS: traMADol HCL 50 MG TABLET PO ×2 (16:18→22:05)
[2020-06-29] MEDS: INSULIN ASPART (*BKC) 100 UNITS/ML SUB-Q ×2 (17:11→21:24)
[2020-06-29 17:26] LABS: Glucose Point of Care 387 (65-105)
[2020-06-29 21:17] LABS: Glucose Point of Care 342 (65-105)
[2020-06-29] MEDS: carvediloL 25 MG TABLET PO (21:23)
[2020-06-29] MEDS: PANTOPRAZOLE SODIUM IV 40 MG VIAL IV PUSH (21:24)
[2020-06-29] MEDS: INSULIN GLARGINE (*BKC) 100 UNITS/ML 12 UNITS SUB-Q (21:24)
[2020-06-30] VITALS (8 sets, daily range): BP systolic 118–157; BP diastolic 53–70; PULSE 62–106; RESP 12–20; TEMP 36.6–37.2; O2SAT 97–100
[2020-06-30] MEDS: INSULIN ASPART (*BKC) 100 UNITS/ML SUB-Q ×3 (00:04→12:47)
[2020-06-30 00:08] LABS: Glucose Point of Care 285 (65-105)
[2020-06-30 05:15] LABS: Glucose Point of Care 168 (65-105)
[2020-06-30 05:47] LABS: Hematocrit 25.6 % (42.0-52.0); Hemoglobin 8.2 g/dL (14.0-18.0); Mean Corpuscular Hemoglobin 30.6 pg (26-34); Mean Corpuscular Volume 95.5 fl (80-100); Platelet Count Result 300 k/mm3 (150-375); Red Blood Count 2.68 M/mm3 (4.6-6.20); Red Cell Distribution Width 16.6 % (11.5-14.5); White Blood Count 9.1 K/mm3 (4.5-10.0)
[2020-06-30 06:17] LABS: Alanine Aminotransferase 26 U/L (4-50); Albumin Level 3.1 g/dL (3.5-5.1); Alkaline Phosphatase 71 U/L (38-126); Anion Gap 12 mmol/L (8-16); Aspartate Amino Transferase 50 U/L (17-59); Bilirubin,Total 0.3 mg/dL (0.2-1.3); Blood Urea Nitrogen 36 mg/dL (9-20); Carbon Dioxide 30 mmol/L (22-30); Chloride 91 mmol/L (98-107); Estimated CRCL calculation 11 ml/min; Estimated Glomerular Filt Rate 9; Glucose 176 mg/dL (75-110); Magnesium 2.3 mg/dL (1.6-2.3); Potassium 4.2 mmol/L (3.4-5.0); Sodium 133 mmol/L (137-145)
[2020-06-30 07:54] LABS: Glucose Point of Care 261 (65-105)
[2020-06-30] MEDS: TICAGRELOR 90 MG TABLET PO (08:44)
[2020-06-30] MEDS: ROSUVASTATIN 10 MG TABLET 20 MG PO (08:45)
[2020-06-30] MEDS: LOSARTAN POTASSIUM 100 MG TABLET PO (08:45)
[2020-06-30] MEDS: ASPIRIN 81 MG CHEWABLE TABLET PO (08:45)
[2020-06-30] MEDS: carvediloL 25 MG TABLET PO (08:45)
[2020-06-30] MEDS: INSULIN GLARGINE (*BKC) 100 UNITS/ML 12 UNITS SUB-Q (08:46)
[2020-06-30] MEDS: PANTOPRAZOLE SODIUM IV 40 MG VIAL IV PUSH (08:47)
[2020-06-30] MEDS: NICOTINE (*PBKC) 21 MG PATCH 1 PATCH TRANSDERM (08:47)
[2020-06-30] MEDS: traMADol HCL 50 MG TABLET PO (08:53)
--- NOTE | 2020-06-30 09:00 | PM.PNNEP ---
Progress Note: A&P Assessment and Plan (1) ESRD (end stage renal disease): Code(s): N18.6 - End stage renal disease Status: Acute Assessment and Plan: The patient has end-stage kidney disease. Dialysis is due tomorrow (2) STEMI (ST elevation myocardial infarction): Code(s): I21.3 - ST elevation (STEMI) myocardial infarction of unspecified site Status: Acute Assessment and Plan: Patient had a STEMI. He had a PCI performed. Last troponin was over 13 Cardiology on board. aspirin and Brilinta for the next year (3) Acute respiratory failure: Code(s): J96.00 - Acute respiratory failure, unspecified whether with hypoxia or hypercapnia Status: Acute Assessment and Plan: This is improved. He is off the ventilator. Breathing comfortably on room air. (4) Upper GI bleed: Code(s): K92.2 - Gastrointestinal hemorrhage, unspecified Status: Acute Assessment and Plan: He had endoscopies done which showed four ulcers. He is on IV Protonix (5) Acute hyperkalemia: Code(s): E87.5 - Hyperkalemia Status: Acute Assessment and Plan: Potassium is Normal. (6) Hypertension: Code(s): I10 - Essential (primary) hypertension Status: Acute Assessment and Plan: Blood pressure is Mostly good. sometimes high if anxiety or if volume present Subjective Date/time seen: 06/30/20 09:01 Interval history: the patient is feeling better today. he had dialysis yesterday and tolerated it well. He is not having any chest pain. He says he never did and never has. He has no shortness of breath Review of Systems Cardiovascular: Cardiovascular: Reports no additional cardiovascular complaints Respiratory: Respiratory: Reports no additional respiratory complaints Gastrointestinal: Gastrointestinal: Reports no additional gastrointestinal complaints Genitourinary: Genitourinary: Reports no additional male genitourinary complaints Exam Narrative: Exam Narrative: WDWN Gentleman intubated and sedated in the ICU. skin no rash or subcu nodules head ncat lungs Course bilaterally cor reg no rub or gallop abd BS+ nontender and soft ext 1+ edema. Objective Data Vital Signs Vital Signs: Vital Signs - 24 hr 06/29/20 09:15 06/29/20 09:25 06/29/20 09:30 Temperature 36.8 C Pulse Rate 96 92 90 Respiratory Rate 12 Blood Pressure 184/94 H 176/93 H 172/85 H Pulse Oximetry 06/29/20 09:45 06/29/20 10:00 06/29/20 10:15 Temperature Pulse Rate 89 89 89 Respiratory Rate Blood Pressure 168/85 H 155/77 H 154/78 H Pulse Oximetry 06/29/20 10:30 06/29/20 10:45 06/29/20 11:00 Temperature Pulse Rate 89 90 88 Respiratory Rate Blood Pressure 150/79 H 156/76 H 160/75 H Pulse Oximetry 06/29/20 11:15 06/29/20 11:30 06/29/20 11:45 Temperature Pulse Rate 97 102 H 94 Respiratory Rate Blood Pressure 170/81 H 186/82 H 171/82 H Pulse Oximetry 06/29/20 12:00 06/29/20 12:06 06/29/20 12:15 Temperature Pulse Rate 95 94 93 Respiratory Rate Blood Pressure 175/85 H 168/83 H Pulse Oximetry 06/29/20 12:30 06/29/20 12:45 06/29/20 12:57 Temperature Pulse Rate 96 96 96 Respiratory Rate Blood Pressure 160/83 H 155/79 H 165/89 H Pulse Oximetry 06/29/20 13:10 06/29/20 14:00 06/29/20 14:03 Temperature 36.9 C Pulse Rate 98 108 H 109 H Respiratory Rate 16 Blood Pressure 152/82 H Pulse Oximetry 06/29/20 16:00 06/29/20 18:00 06/29/20 20:00 Temperature 36.7 C 36.7 C Pulse Rate 104 H 103 H 97 Respiratory Rate 16 18 Blood Pressure 145/69 H 120/62 Pulse Oximetry 100 97 06/29/20 21:23 06/29/20 22:00 06/30/20 00:00 Temperature 36.6 C Pulse Rate 98 99 85 Respiratory Rate 20 Blood Pressure 126/53 L Pulse Oximetry 97 06/30/20 02:00 06/30/20 04:00 06/30/20 06:00 Temperature 36.7 C P
--- NOTE | 2020-06-30 09:31 | WPDGIPROGNO ---
Progress Note: A&P Additional Plan Patient alert and comfortable this morning. Tolerating diet. Offers no complaints. No bleeding described. Denies abdominal pain. Physical exam reveals patient to be alert. Vital signs stable. HEENT exam unremarkable. Patient is anicteric. Lungs are clear to auscultation and percussion. Heart without murmur. Abdomen bowel sounds are present soft nontender. Labs reveal hemoglobin 8.2, hematocrit 25.6. Stable. Impression 1. Gastric ulcerations. Status post upper GI bleeding. He this required cautery on Monday. Plan is to continue patient on proton pump inhibitor. Continue to monitor hemoglobin on a occasional basis after discharge. Watch closely as patient remains anticoagulated. Anticipate follow-up EGD in 2 months because of gastric ulcerations. 2. Atherosclerotic heart disease. Status post acute [place]. Stent placement recently. Patient to remain on Brilenta for the next year. 3. End-stage renal disease. Dr. Huynh following patient. Continue dialysis anticipated. 4. Diabetes mellitus. Plan is for patient be discharged when all services agree. Follow-up EGD suggested in 2 months. Because of gastric ulcers. Subjective Date/time seen: 06/30/20 09:31 Objective Data Vital Signs Vital Signs: Vital Signs - 24 hr 06/29/20 09:45 06/29/20 10:00 06/29/20 10:15 Temperature Pulse Rate 89 89 89 Respiratory Rate Blood Pressure 168/85 H 155/77 H 154/78 H Pulse Oximetry 06/29/20 10:30 06/29/20 10:45 06/29/20 11:00 Temperature Pulse Rate 89 90 88 Respiratory Rate Blood Pressure 150/79 H 156/76 H 160/75 H Pulse Oximetry 06/29/20 11:15 06/29/20 11:30 06/29/20 11:45 Temperature Pulse Rate 97 102 H 94 Respiratory Rate Blood Pressure 170/81 H 186/82 H 171/82 H Pulse Oximetry 06/29/20 12:00 06/29/20 12:06 06/29/20 12:15 Temperature Pulse Rate 95 94 93 Respiratory Rate Blood Pressure 175/85 H 168/83 H Pulse Oximetry 06/29/20 12:30 06/29/20 12:45 06/29/20 12:57 Temperature Pulse Rate 96 96 96 Respiratory Rate Blood Pressure 160/83 H 155/79 H 165/89 H Pulse Oximetry 06/29/20 13:10 06/29/20 14:00 06/29/20 14:03 Temperature 98.4 F Pulse Rate 98 108 H 109 H Respiratory Rate 16 Blood Pressure 152/82 H Pulse Oximetry 06/29/20 16:00 06/29/20 18:00 06/29/20 20:00 Temperature 98.1 F 98.0 F Pulse Rate 104 H 103 H 97 Respiratory Rate 16 18 Blood Pressure 145/69 H 120/62 Pulse Oximetry 100 97 06/29/20 21:23 06/29/20 22:00 06/30/20 00:00 Temperature 97.9 F Pulse Rate 98 99 85 Respiratory Rate 20 Blood Pressure 126/53 L Pulse Oximetry 97 06/30/20 02:00 06/30/20 04:00 06/30/20 06:00 Temperature 98.0 F Pulse Rate 94 62 99 Respiratory Rate 18 Blood Pressure 118/60 Pulse Oximetry 97 06/30/20 08:00 06/30/20 08:45 Temperature 98.6 F Pulse Rate 95 102 H Respiratory Rate 12 Blood Pressure 157/70 H Pulse Oximetry 100 Intake/Output Intake/Output: Intake & Output 06/27/20 06/28/20 06/29/20 06/30/20 23:59 23:59 23:59 23:59 Intake Total 2560 1380 2010 200 Output Total 1050 0 3000 Balance 1510 1380 -990 200 Meds/Results Medications: Active Medications Generic Name Dose Route Start Last Admin Trade Name Freq PRN Reason Stop Dose Admin Aspirin 81 mg 06/27/20 08:00 06/30/20 08:45 Aspirin Chewable PO 81 mg DAILY@0800 MARTHA Administration Carvedilol 25 mg 06/29/20 21:00 06/30/20 08:45 Coreg PO 25 mg Q12HR MARTHA Administration Dextrose 12.5 gm 06/27/20 08:05 Dextrose 50% Syringe IV PUSH PRN PRN Hypoglycemia Protocol Glucagon 1 mg 06/27/20 08:05 Glucagon For Inj IM PRN PRN Hypoglycemia Protocol Glucose 15 gm 06/27/20 08:05 Glutose 15 PO PRN PRN Hypoglycemia Protocol Dextrose 1,000 mls @ 100 mls/hr 06/27/20 08:05 Dextrose 5% 1,000 Ml IVPB
[2020-06-30 10:01] LABS: Glucose Point of Care 384 (65-105)
--- NOTE | 2020-06-30 12:21 | PM.DS ---
DS: Admitting Diagnosis Admitting Diagnosis Admitting Diagnosis: STEMI DS: Discharge Diagnosis Discharge Diagnosis (1) STEMI (ST elevation myocardial infarction): Code(s): I21.3 - ST elevation (STEMI) myocardial infarction of unspecified site Status: Acute Assessment and Plan: 06/26/2020:Acute myocardial infarction with abrupt stent thrombosis of the LAD. Device was placed in December (see [id number]) of this year and appeared to be undersized. Underwent somewhat difficult but successful PCI involving extraction thrombectomy. Stenting distal to the original device and up sizing the original stent with a 4.0 mm balloon. Since he stated he was compliant with aspirin and clopidogrel with a stent thrombosis he will need to be on Brilinta 90 mg q.12 hours for at least 1 year. GI bleed post procedure. Angiomax was discontinued. Aspirin and Brilinta were held. Underwent endoscopy with the findings of an ulcer that was not bleeding at the time but this was cauterized. Aspirin and Brilinta resumed. H&H stable Was hypotensive and on pressors. Off pressors and then hypertensive. Carvedilol and losartan resumed. He states that he was on carvedilol 50 mg in the morning and 25 mg in the evening. Per his and his medcation list was taking 25 mg Q.12 hours. Continue losartan 100 mg daily. Blood pressure was stable off clonidine. This was not resume the discharge Echo 06/26/2020: 1. Left ventricular chamber dimension is mildly enlarged. 2. Left ventricular systolic function is severely reduced, estimated at 25-30%. 3. There is moderately increased left ventricular wall thickness. 4. The left ventricular diastolic function is grade II diastolic dysfunction. 5. There is no thrombus visualized in the left ventricle. 6. Global longitudinal strain is abnormal at -6 %. 7. The apex, inferior wall, anterior wall, inferoseptal wall, anterolateral wall, and anteroseptal wall are hypokinetic. 8. Left atrial chamber dimension is mildly enlarged. 9. There is severe aortic valve sclerosis. 10. There is mild mitral valve regurgitation. 11. The mitral valve has calcified annulus. 12. Mild pulmonary hypertension, estimated pulmonary arterial systolic pressure is 43 mmHg. 13. There is mild tricuspid valve regurgitation. 14. There is mild pulmonic regurgitation. (2) Acute blood loss anemia: Code(s): D62 - Acute posthemorrhagic anemia Status: Acute Assessment and Plan: Due to GI bleed. H&H as above. He is to follow up with Dr Pacheco. (3) ESRD (end stage renal disease): Code(s): N18.6 - End stage renal disease Status: Acute Assessment and Plan: Management per Dr. Huynh. Dialysis days Monday, Monday, Monday. Tolerated dialysis well Resumed diuretics at discharge. (4) Neck pain: Code(s): M54.2 - Cervicalgia Status: Acute Assessment and Plan: He is to follow up with his primary care provider regarding this pain. Dilaudid was discontinued. Received 2 doses of tramadol. Requested delighted prior to discharge. Request denied. DS: Summary Hospital Course Reason for hospitalization: Acute pulmonary edema/STEMI Hospital Course: 54-year-old male admitted on 06/26/2020 in pulmonary edema due to ST-elevation myocardial infarction. He was intubated in the emergency room. He was taken emergently to the cardiac catheterization lab by Dr. Landis with a significant findings of: acute myocardial infarction with abrupt stent thrombosis of the LAD. Device was placed in December (see [id number]) of this year and appeared to be undersized. Underwent somewhat difficult but successful PCI involving extraction thrombectomy. Stenting distal to the original device and up sizing the original stent with a 4.0 mm balloon. He had a GI bleed immediately p
[2020-06-30 12:41] LABS: Glucose Point of Care 340 (65-105)
[2020-06-30] MEDS: NEOMYCIN/POLYMYXIN/BACITRACIN OINTMENT PACKET 1 PACKET TOPICAL (13:35)
== END 2020-06-30 14:53 | disposition home or self-care (01) | DRG 248 ==
LOC: ANHED 07:10 → ANHICU 07:18 → ANHIMU 06-28 18:09
PROVIDERS: Emergency Medicine; Internal Medicine; Internal Medicine Gastroenterology; Internal Medicine Nephrology; Admitting Provider Specialist; Emergency Provider Emergency Medicine; PCP Emergency Medicine; Visit Provider Specialist
PROC: 4A023N7 Measurement of Cardiac Sampling and Pressure, Left Heart, Percutaneous Approach (ICD-10-PCS; CPT 93452; principal; 2020-06-26 07:30)
PROC: 02703DZ Dilation of Coronary Artery, One Artery with Intraluminal Device, Percutaneous Approach (ICD-10-PCS; 2020-06-26 07:30)
PROC: 0DJ08ZZ Inspection of Upper Intestinal Tract, Via Natural or Artificial Opening Endoscopic (ICD-10-PCS; CPT 43235; principal; 2020-06-27 09:30)
DX: I21.09 ST elevation (STEMI) myocardial infarction involving other coronary artery of anterior wall (principal); J96.00 Acute respiratory failure, unspecified whether with hypoxia or hypercapnia; N18.6 End stage renal disease; K25.0 Acute gastric ulcer with hemorrhage; T82.855A Stenosis of coronary artery stent, initial encounter; I13.2 Hypertensive heart and chronic kidney disease with heart failure and with stage 5 chronic kidney disease, or end stage renal disease; J81.1 Chronic pulmonary edema; K92.0 Hematemesis; I97.790 Other intraoperative cardiac functional disturbances during cardiac surgery; I47.2 Ventricular tachycardia; D62 Acute posthemorrhagic anemia; D50.9 Iron deficiency anemia, unspecified; Z89.511 Acquired absence of right leg below knee; I25.10 Atherosclerotic heart disease of native coronary artery without angina pectoris; N40.0 Benign prostatic hyperplasia without lower urinary tract symptoms; E87.5 Hyperkalemia; E11.22 Type 2 diabetes mellitus with diabetic chronic kidney disease; E78.5 Hyperlipidemia, unspecified; M54.2 Cervicalgia; K21.9 Gastro-esophageal reflux disease without esophagitis; I50.9 Heart failure, unspecified; N25.0 Renal osteodystrophy; Z99.2 Dependence on renal dialysis
CPT/HCPCS: 31500; 36415; 36430; 36600; 51702; 71045; 74018; 80048; 80053; 82375; 82805; 83050; 83735; 83880; 84484; 85014; 85018; 85025; 85027; 85610; 85730; 86850; 86900; 86901; 86923; 93005; 93458; 94003; 96365; 99291; A9270; C1725; C1751; C1757; C1769; C1874; C1887; C1894; C8929; C9113; C9606; G0257; J0282; J0330; J0461; J0583; J1170; J1644; J1815; J2250; J2704; J3010; J7030; J7040; J7050; J7060; L1830; P9016; Q5106; Q9957

== ENCOUNTER 2020-07-02 16:59 | Emergency (ER) | payer MEDICARE, MEDICAID, SELFPAY ==
[2020-07-02 17:17] VITALS: BP 105/53; PULSE 86; RESP 16; TEMP 37.1; O2SAT 98
--- NOTE | 2020-07-02 17:34 | ED.EAR ---
HPI - Ear Problem General Chief complaint: Ear Stated complaint: left ear clogged Time Seen by Provider: 07/02/20 17:34 Source: patient Mode of arrival: ambulatory Limitations: no limitations History of Present Illness HPI Narrative: Ish Corley is a 54 yo male with a PMH of STEMI (1 week ago), HTN, cholesterol, anxiety, GERD, who comes to express care with clogged ears. All new meds post UT last week including Plavix and ASA. Related Data Home Medications Medication Instructions Recorded Confirmed albuterol sulfate 1 inh INHALATION QID 07/02/20 07/02/20 aspirin 81 mg PO DAILY 07/02/20 07/02/20 atorvastatin [Lipitor] 40 mg PO DAILY 07/02/20 07/02/20 carvedilol [Coreg] 25 mg PO BID 07/02/20 07/02/20 clonidine HCl [Catapres] 0.2 mg PO BID 07/02/20 07/02/20 clopidogrel [Plavix] 75 mg PO DAILY 07/02/20 07/02/20 furosemide [Lasix] 80 mg PO BID 07/02/20 07/02/20 insulin glargine [Lantus U-100 12 unit SUBCUT DAILY 07/02/20 07/02/20 Insulin] insulin lispro [Humalog KwikPen 1 unit SUBCUT ONCE 07/02/20 07/02/20 Insulin] lorazepam [Ativan] 1 mg PO BID 07/02/20 07/02/20 nitroglycerin 0.4 mg SUBLINGUAL ONCE 07/02/20 07/02/20 oxycodone-acetaminophen 1 tablet PO Q4H 07/02/20 07/02/20 pantoprazole [Protonix] 40 mg PO BID 07/02/20 07/02/20 sertraline [Zoloft] 25 mg PO DAILY 07/02/20 07/02/20 tamsulosin 0.4 mg PO DAILY 07/02/20 07/02/20 ticagrelor [Brilinta] 90 mg PO DAILY 07/02/20 07/02/20 Allergies Allergy/AdvReac Type Severity Reaction Status Date / Time scopolamine Allergy Unknown Verified 07/02/20 17:29 Review of Systems Review of Systems: Narrative: CONSTITUTIONAL: Denies fever, chills, sweats. EYES: Denies visual changes, redness, discharge. ENT: Denies rhinorrhea, congestion, sore throat, otalgia. Feels ears are clogged CARDIOVASCULAR: Denies chest pain, palpitations, edema. RESPIRATORY: Denies dyspnea, wheezing, cough GASTROINTESTINAL: Denies abdominal pain, nausea, vomiting, diarrhea. GENITOURINARY: Denies dysuria, hematuria, abnormal discharge SKIN: Denies rash or itching. NEUROLOGIC: Denies numbness, or focal weakness. PSYCHIATRIC: Denies anxiety or depression. [facility] Past Medical History Medical History (Updated 07/02/20 @ 17:59 by Lilliana Rider CNP) Acute blood loss anemia Chronic kidney disease requiring chronic dialysis Gastric ulcer Hypertension STEMI (ST elevation myocardial infarction) Surgical History Surgical History (Updated 07/02/20 @ 17:50 by Lilliana Rider CNP) Hx of BKA Family History Family History Sibling Multiple myeloma Social History Social History (Updated 07/02/20 @ 17:41 by Lilliana Rider CNP) Smoking packs per day: 0.5 Smoking cigarettes per day: 10.0 Smoking status: Current every day smoker Additional smoking assessment comments: Patient states trying to quit and is down to 4cigarettes daily currently; Alcohol intake: never Substance use: current Substance use type: marijuana Other substance usage details: marijuana usage daily-continued post STEMI Last use: 06/25/2020 Living arrangements: with family Gender identity (if verbalized by the patient): Male Spiritual care concerns: No Comments At time of signature, I agree with nursing past medical, surgical, social and family history. There is no relevant family history pertinent to the presenting complaint. Which this luis also was Exam Narrative: Exam Narrative: GENERAL: Patient looks much older than stated age and appears somewhat fragile, well-developed patient, in mild distress. HEAD: normocephalic, atraumatic. EYES: Sclera clear/white. Vision is grossly intact. EARS: External ears normal, auditory canals clear and without drainage, TMs normal without perforation. R ear small amount cerumen at opening; L ear small amount further in canal; no cotton noted .Hearing grossly intact. NOSE: External nose normal without nasal discharg
== END 2020-07-02 18:05 | disposition home or self-care (01) ==
PROVIDERS: Emergency Provider Nurse Practitioner; PCP Emergency Medicine
DX: H91.92 Unspecified hearing loss, left ear (principal); F17.210 Nicotine dependence, cigarettes, uncomplicated; I12.0 Hypertensive chronic kidney disease with stage 5 chronic kidney disease or end stage renal disease; N18.6 End stage renal disease; I25.2 Old myocardial infarction; Z99.2 Dependence on renal dialysis
CPT/HCPCS: 99213; G0463

== ENCOUNTER 2020-07-05 10:54 | Emergency (ER) | payer MEDICARE, MEDICAID, SELFPAY ==
--- NOTE | ~2020-07-05 | XR_ITS ---
EXAMINATION: XR chest 2V DATE: 07/05/2020 11:40 INDICATION: History of COPD TECHNIQUE: AP and lateral views of the chest are obtained. COMPARISON: 06/28/2020 FINDINGS: The lungs are free of acute opacities. There is no pleural effusion or pneumothorax. The ca rdiomediastinal silhouette is normal. There is mild thoracic spondylosis. IMPRESSION: 1. No acute cardiopulmonary abnormality. Reviewed, dictated and finalized at location A.
--- NOTE | ~2020-07-05 | CT_ITS ---
EXAMINATION: CT abdomen pelvis wo con DATE: 07/05/2020 12:17 INDICATION: Generalized abdominal pain and nausea TECHNIQUE: Computed tomography (CT) of the abdomen and pelvis was performed without intravenous contr ast. The dose-length product (DLP) was 272.98 mGy-cm. Automated exposure control and iterative recons truction technique were employed. COMPARISON: 06/01/2020 FINDINGS: Cardiomegaly is noted. There is mild atelectasis of the visualized lung bases. The liver, s pleen, pancreas, gallbladder, and adrenal glands are normal. Cysts of the kidneys measure up to 2.2 c m on the left. There is extensive calcified atherosclerosis of the aorta and many of the other arteri es. No pathologically enlarged abdominal or pelvic lymph nodes are identified. There is no free intra peritoneal gas or evidence of bowel obstruction. The anterior and posterior fusion procedures are not ed in the lumbar spine. IMPRESSION: 1. No CT correlate for the patient's symptoms. 2. Cardiomegaly Reviewed, dictated and finalized at location A.
[2020-07-05 11:02] VITALS: BP 158/65; PULSE 93; RESP 16; TEMP 36.1; O2SAT 100
--- NOTE | 2020-07-05 11:10 | ECG_ITS ---
Measurements Intervals [place] Rate: 87 P: 68 SD: 179 QRS: 71 QRSD: 90 T: 107 QT: 385 QTc: 465 Interpretive Statements SINUS RHYTHM NONSPECIFIC ST & T-WAVE ABNORMALITY- INF/LAT LEADS BASELINE ARTIFACT- I, III, AVL BORDERLINE ECG Electronically Signed On 07-05-2020 13:42:11 CDT by Edmond Elias D.O.
--- NOTE | 2020-07-05 11:25 | ED.NAVMDI ---
HPI - Nausea/Vomiting/Diarrhea General Chief complaint: Nausea/Vomiting/Diarrhea Stated complaint: NAUSEA, UPSET STOMACH Time Seen by Provider: 07/05/20 11:07 History of Present Illness HPI Narrative: Diffuse abdominal pain today. Associated with many bouts of watery diarrhea. He states that he has had similar pain, but this is worse. No vomiting, fever, CP, SOB. He was admitted to the hospital earlier this month with a STEMI. Related Data Home Medications Medication Instructions Recorded Confirmed albuterol sulfate 1 inh INHALATION QID 07/02/20 07/02/20 aspirin 81 mg PO DAILY 07/02/20 07/02/20 atorvastatin [Lipitor] 40 mg PO DAILY 07/02/20 07/02/20 carvedilol [Coreg] 25 mg PO BID 07/02/20 07/02/20 clonidine HCl [Catapres] 0.2 mg PO BID 07/02/20 07/02/20 clopidogrel [Plavix] 75 mg PO DAILY 07/02/20 07/02/20 furosemide [Lasix] 80 mg PO BID 07/02/20 07/02/20 insulin glargine [Lantus U-100 12 unit SUBCUT DAILY 07/02/20 07/02/20 Insulin] insulin lispro [Humalog KwikPen 1 unit SUBCUT ONCE 07/02/20 07/02/20 Insulin] lorazepam [Ativan] 1 mg PO BID 07/02/20 07/02/20 nitroglycerin 0.4 mg SUBLINGUAL ONCE 07/02/20 07/02/20 oxycodone-acetaminophen 1 tablet PO Q4H 07/02/20 07/02/20 pantoprazole [Protonix] 40 mg PO BID 07/02/20 07/02/20 sertraline [Zoloft] 25 mg PO DAILY 07/02/20 07/02/20 tamsulosin 0.4 mg PO DAILY 07/02/20 07/02/20 ticagrelor [Brilinta] 90 mg PO DAILY 07/02/20 07/02/20 Allergies Allergy/AdvReac Type Severity Reaction Status Date / Time scopolamine Allergy Unknown Verified 07/02/20 17:29 Review of Systems Review of Systems: All systems reviewed & are unremarkable except as noted in HPI and below Constitutional: Constitutional: Denies fever(s) and Reports weakness Cardiovascular: Cardiovascular: Denies chest pain Respiratory: Respiratory: Denies dyspnea Gastrointestinal: Gastrointestinal: Reports abdominal pain, Reports diarrhea, Reports nausea and Denies vomiting Neurologic: Reports weakness PMFSH Past Medical History Medical History Acute blood loss anemia Chronic kidney disease requiring chronic dialysis Gastric ulcer Hypertension STEMI (ST elevation myocardial infarction) Surgical History Surgical History Hx of BKA Family History Family History Sibling Multiple myeloma Social History Social History Smoking packs per day: 0.5 Smoking cigarettes per day: 10.0 Smoking status: Current every day smoker Additional smoking assessment comments: Patient states trying to quit and is down to 4cigarettes daily currently; Alcohol intake: never Substance use: current Substance use type: marijuana Other substance usage details: marijuana usage daily-continued post STEMI Last use: 06/25/2020 Gender identity (if verbalized by the patient): Male Spiritual care concerns: No Exam Const: General: alert and ill appearing chronically Orientation/consciousness: patient oriented x3 HENMT: Head: normal to inspection Resp: Effort & Inspection: normal respiratory effort Auscultation: clear to auscultation bilaterally Cardio: Rate: regular rate Rhythm: regular rhythm GI: GI Palp: Yes Soft to palpation and Yes Tenderness to palpation present (GI) (LLQ) Skin: Other: 2 abscess ti right posterior thigh minimal surrounding erythema. 1 small abscess adjacent to the anus on the right side. Neuro: General: patient oriented x3, moves all extremities and CN's II-XI intact bilaterally Speech: normal speech Extrem: Other: LUE dialysis fistula. RLE AKA. Course Vital Signs Vital signs: Vital Signs Temperature 36.1 C L 07/05/20 11:02 Pulse Rate 93 07/05/20 11:02 Respiratory Rate 16 07/05/20 11:02 Blood Pressure 158/65 H 07/05/20 11:02 Pulse Oximetry
[2020-07-05 11:26] LABS: Basophils Absolute Auto 0.1 K/mm3 (0.0-0.1); Basophils Percent Auto 0.5 % (0.2-1.2); Eosinophils Absolute Auto 0.5 K/mm3 (0-0.3); Eosinophils Percent Auto 4.7 % (0-4.4); Hematocrit 27.3 % (42.0-52.0); Hemoglobin 8.6 g/dL (14.0-18.0); Immature Granulocyte Absolute 0.04 K/mm3 (0.00-0.031); Immature Granulocyte Percent A 0.4 % (0-0.5); Lymphocytes Absolute Auto 1.55 K/mm3 (0.9-3.2); Lymphocytes Percent Auto 15.9 % (18.3-44.2); Mean Corpuscular HGB Conc 31.5 g/dl (32-36); Mean Corpuscular Hemoglobin 30.6 pg (26-34); Mean Corpuscular Volume 97.2 fl (80-100); Mean Platelet Volume 9.5 fl (7.4-10.4); Monocytes Percent Auto 10.7 % (2.6-8.5); Neutrophils Absolute Auto 6.6 K/mm3 (1.3-6.7); Neutrophils Percent Auto 67.8 % (45.5-73.1); Platelet Count Result 495 k/mm3 (150-375); Red Blood Count 2.81 M/mm3 (4.6-6.20); Red Cell Distribution Width 16.3 % (11.5-14.5); White Blood Count 9.7 K/mm3 (4.5-10.0)
[2020-07-05 11:34] LABS: Potassium 5.3 mmol/L (3.4-5.0)
[2020-07-05 11:36] LABS: Lactic Acid Reflex 1.3 mmol/L (0.7-2.1)
[2020-07-05 11:37] LABS: Prothrombin Time 13.2 Seconds (11.1-14.7)
[2020-07-05 11:38] LABS: Partial Thromboplastin Time 36.7 SECONDS (22.3-36.8)
[2020-07-05 11:45] LABS: Alanine Aminotransferase 17 U/L (4-50); Albumin Level 3.9 g/dL (3.5-5.1); Alkaline Phosphatase 67 U/L (38-126); Anion Gap 13 mmol/L (8-16); Aspartate Amino Transferase 29 U/L (17-59); Bilirubin,Total 0.2 mg/dL (0.2-1.3); Blood Urea Nitrogen 44 mg/dL (9-20); CRP 2.6 mg/dL (<1.0); Calcium 8.6 mg/dL (8.4-10.2); Carbon Dioxide 26 mmol/L (22-30); Chloride 97 mmol/L (98-107); Estimated CRCL calculation 9 ml/min; Estimated Glomerular Filt Rate 7; Glucose 202 mg/dL (75-110); Sodium 136 mmol/L (137-145)
[2020-07-05] MEDS: SODIUM CHLORIDE 0.9% IV 1,000 ML 999 ML IV CONT (11:59)
[2020-07-05 12:00] VITALS: BP 152/72; PULSE 85; RESP 18; O2SAT 100
[2020-07-05] MEDS: LOPERAMIDE HCL 2 MG CAPSULE 4 MG PO (13:18)
[2020-07-05 14:18] VITALS: BP 164/75; PULSE 91; RESP 18; O2SAT 96
--- NOTE | 2020-07-05 14:18 | PC.NURSE ---
Pt informed us of 2 abcesses to RLE and 1 abcess to buttocks. ERP in room for I&D.
[2020-07-05 15:00] VITALS: BP 132/75; PULSE 78; RESP 18; O2SAT 98
[2020-07-05] MEDS: CLINDAMYCIN HCL 150 MG CAP 300 MG PO (15:00)
== END 2020-07-05 15:01 | disposition home or self-care (01) ==
PROVIDERS: Emergency Medicine Emergency Medical Services; Emergency Provider Emergency Medicine; PCP Emergency Medicine
DX: R10.30 Lower abdominal pain, unspecified (principal); R19.7 Diarrhea, unspecified; L02.415 Cutaneous abscess of right lower limb; L02.212 Cutaneous abscess of back [any part, except buttock and flank]; I25.2 Old myocardial infarction; E10.22 Type 1 diabetes mellitus with diabetic chronic kidney disease; I13.2 Hypertensive heart and chronic kidney disease with heart failure and with stage 5 chronic kidney disease, or end stage renal disease; N18.6 End stage renal disease; I50.9 Heart failure, unspecified; Z99.2 Dependence on renal dialysis; Z79.4 Long term (current) use of insulin; Z79.82 Long term (current) use of aspirin; Z79.02 Long term (current) use of antithrombotics/antiplatelets; I25.10 Atherosclerotic heart disease of native coronary artery without angina pectoris; F41.8 Other specified anxiety disorders; K21.9 Gastro-esophageal reflux disease without esophagitis; Z89.519 Acquired absence of unspecified leg below knee; Z98.49 Cataract extraction status, unspecified eye
CPT/HCPCS: 10061; 36415; 71046; 74176; 80053; 83605; 84484; 85025; 85610; 85730; 86140; 87040; 93005; 96360; 99284; A9270; J7030

== ENCOUNTER 2020-07-20 08:10 | Emergency (ER) | payer MEDICARE, MEDICAID, SELFPAY ==
[2020-07-20] VITALS (31 sets, daily range): BP systolic 153–175; BP diastolic 70–83; PULSE 75–83; RESP 12–29; TEMP 36.6; O2SAT 95–100
--- NOTE | ~2020-07-20 | XR_ITS ---
EXAMINATION: XR chest 1V portable INDICATION: Increasing shortness of breath TECHNIQUE: Portable AP chest at 0838 hours COMPARISON: 07/05/2020 FINDINGS: The heart size is upper limits of normal for technique. There are interstitial opacities wi th a mid and lower lung zone predominance. No pleural effusion or pneumothorax is identified. Calcifi ed atherosclerosis is noted. IMPRESSION: 1. Findings consistent with mild pulmonary edema. Reviewed, dictated and finalized at location A.
--- NOTE | ~2020-07-20 | CT_ITS ---
EXAMINATION: CT abdomen pelvis wo con DATE: 07/20/2020 09:53 INDICATION: Abdominal pain and bloating TECHNIQUE: Computed tomography (CT) of the abdomen and pelvis was performed without intravenous contr ast. The dose-length product (DLP) was 327.41 mGy-cm. Automated exposure control and iterative recons truction technique were employed. COMPARISON: 07/05/2020 FINDINGS: There is smooth interlobular septal thickening in the visualized lung bases. Atelectasis is noted. There are tiny pleural effusions. The heart size is upper limits of normal. Within the limita tions of noncontrast examination, the liver, spleen, pancreas, gallbladder, and adrenal glands are no rmal. There is calcified atherosclerosis of the aorta and many of the other arteries. Cysts of the ki dneys measure up to 2.2 cm on the left. There is a 4 mm hemorrhagic cyst of the right kidney. No path ologically enlarged abdominal or pelvic lymph nodes are identified. There is no free intraperitoneal gas or evidence of bowel obstruction. A moderate volume of colonic stool is present. There are change s of anterior and posterior fusion from L4 through S1. An electronic device is implanted in the poste rior subcutaneous tissues of the lower back to the left of midline. IMPRESSION: 1. Pulmonary edema and the visualized lung bases. 2. No acute abnormality of the abdomen or pelvis. Reviewed, dictated and finalized at location A.
--- NOTE | 2020-07-20 08:11 | ED.SOB ---
HPI - SOB/Dyspnea General Chief Complaint: Shortness of Breath/Dyspnea Stated Complaint: trouble breathing Time Seen by Provider: 07/20/20 08:11 Source: patient Mode of arrival: wheelchair Limitations: no limitations History of Present Illness HPI Narrative: Patient is a 54-year-old male with a history of end-stage renal disease, Monday dialysis, hypertension, flash pulmonary edema, recent STEMI, who presents for evaluation of shortness of breath. Patient has been feeling weak, reports abdominal bloating and has been feeling short of breath. Patient states he is due for dialysis today, but they did not have a chair available for him this morning and he did not feel that he could wait until this afternoon. Patient is denying any current chest pain. He denies diarrhea or constipation. He reports pain throughout his abdomen. Reports some mild diarrhea. Related Data Home Medications Medication Instructions Recorded Confirmed Lantus Solostar U-100 Insulin 10 unit SUBCUT HS 02/05/20 06/09/20 Renal Vitamin 1 tablet PO DAILY 02/05/20 06/09/20 Vitamin D3 4,000 unit PO DAILY 02/05/20 06/09/20 aspirin [Aspirin Childrens] 81 mg PO DAILY 02/05/20 06/09/20 calcitriol 0.25 mcg PO 3XW 02/05/20 06/09/20 carvedilol 25 mg PO BID 02/05/20 06/09/20 clopidogrel 75 mg PO DAILY 02/05/20 06/09/20 furosemide 80 mg PO BID 02/05/20 06/09/20 insulin lispro [Humalog KwikPen 6 unit SUBCUT TIDWM 02/05/20 06/09/20 Insulin] nitroglycerin 0.4 mg SUBLINGUAL Q5MIN PRN 02/05/20 06/09/20 pantoprazole 40 mg PO DAILY 02/05/20 06/09/20 tamsulosin 0.4 mg PO DAILY 02/05/20 06/09/20 oxycodone 5 mg PO Q6H PRN 03/11/20 06/09/20 B complex with C 20-folic acid 1 cap PO DAILY 04/10/20 06/09/20 losartan 100 mg PO DAILY 04/10/20 06/09/20 Lantus Solostar U-100 Insulin 12 unit SUBCUT QAM 04/11/20 06/09/20 calcium carbonate [Tums] 200 mg PO PRN PRN 04/11/20 06/09/20 albuterol sulfate 1 inh INHALATION QID 07/02/20 07/02/20 aspirin 81 mg PO DAILY 07/02/20 07/02/20 atorvastatin [Lipitor] 40 mg PO DAILY 07/02/20 07/02/20 carvedilol [Coreg] 25 mg PO BID 07/02/20 07/02/20 clonidine HCl [Catapres] 0.2 mg PO BID 07/02/20 07/02/20 clopidogrel [Plavix] 75 mg PO DAILY 07/02/20 07/02/20 furosemide [Lasix] 80 mg PO BID 07/02/20 07/02/20 insulin glargine [Lantus U-100 12 unit SUBCUT DAILY 07/02/20 07/02/20 Insulin] insulin lispro [Humalog KwikPen 1 unit SUBCUT ONCE 07/02/20 07/02/20 Insulin] lorazepam [Ativan] 1 mg PO BID 07/02/20 07/02/20 nitroglycerin 0.4 mg SUBLINGUAL ONCE 07/02/20 07/02/20 oxycodone-acetaminophen 1 tablet PO Q4H 07/02/20 07/02/20 pantoprazole [Protonix] 40 mg PO BID 07/02/20 07/02/20 sertraline [Zoloft] 25 mg PO DAILY 07/02/20 07/02/20 tamsulosin 0.4 mg PO DAILY 07/02/20 07/02/20 ticagrelor [Brilinta] 90 mg PO DAILY 07/02/20 07/02/20 Allergies Allergy/AdvReac Type Severity Reaction Status Date / Time scopolamine Allergy Severe Unresponsiv Verified 07/06/20 08:58 e [facility] Social History Social History (System 07/06/20 @ 08:58 by Molly Kurtz) Social History: Mr. Corley lives at home in [place] with his and daughter. He is on disability. 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 He designates his , Rosana, as his surrogate decision maker and he wishes to be a full code. Smoking packs per day: 0.5 Smoking cigarettes per day: 10.0 Years smoked: 37 Smoking pack-years: 18.50 Smoking status: Current every day smoker Tobacco type: cigarettes Additional smoking assessment comments: Patient states trying to quit and is down to 4cigarettes daily currently; Alcohol intake: never Substance use: current Substance use type: marijuana Other substance usage details: marijuana usage daily-continued post STEMI Last use: 06/25/2020 Gender identity (if verbalized by the patient): Male Spiritual care concerns: No Agree to blood products: Yes Course Vital Signs Vital signs: Vital Signs Pulse Rate 7
--- NOTE | 2020-07-20 08:12 | ECG_ITS ---
Measurements Intervals Ideal Rate: 79 P: 60 AR: 168 QRS: 71 QRSD: 86 T: 111 QT: 406 QTc: 467 Interpretive Statements SINUS RHYTHM POSSIBLE LEFT ATRIAL ENLARGEMENT NONSPECIFIC ST & T-WAVE ABNORMALITY- INF/LAT LEADS BORDERLINE ECG Electronically Signed On 07-20-2020 8:29:00 CDT by Edmond Elias D.O.
[2020-07-20 08:44] LABS: Basophils Absolute Auto 0.1 K/mm3 (0.0-0.1); Basophils Percent Auto 0.5 % (0.2-1.2); Eosinophils Absolute Auto 0.5 K/mm3 (0-0.3); Eosinophils Percent Auto 4.6 % (0-4.4); Hematocrit 25.9 % (42.0-52.0); Hemoglobin 8.2 g/dL (14.0-18.0); Immature Granulocyte Absolute 0.05 K/mm3 (0.00-0.031); Immature Granulocyte Percent A 0.5 % (0-0.5); Lymphocytes Absolute Auto 1.67 K/mm3 (0.9-3.2); Lymphocytes Percent Auto 15.4 % (18.3-44.2); Mean Corpuscular HGB Conc 31.7 g/dl (32-36); Mean Corpuscular Hemoglobin 31.2 pg (26-34); Mean Corpuscular Volume 98.5 fl (80-100); Mean Platelet Volume 9.7 fl (7.4-10.4); Neutrophils Absolute Auto 7.6 K/mm3 (1.3-6.7); Platelet Count Result 424 k/mm3 (150-375); Red Blood Count 2.63 M/mm3 (4.6-6.20); Red Cell Distribution Width 16.9 % (11.5-14.5); White Blood Count 10.8 K/mm3 (4.5-10.0)
[2020-07-20 09:09] LABS: Anion Gap 17 mmol/L (8-16); Blood Urea Nitrogen 64 mg/dL (9-20); Calcium 8.2 mg/dL (8.4-10.2); Carbon Dioxide 27 mmol/L (22-30); Chloride 97 mmol/L (98-107); Estimated CRCL calculation 7 ml/min; Estimated Glomerular Filt Rate 6; Glucose 41 mg/dL (75-110); Lipase 80 U/L (23-300); Sodium 141 mmol/L (137-145)
[2020-07-20 09:18] LABS: NT Pro B Type Natriuretic Pept > 35000 PG/ML (5-100); Troponin I 0.081 ng/mL (0.000-0.034)
[2020-07-20 09:27] LABS: INR 1.2; Prothrombin Time 14.6 Seconds (11.1-14.7)
--- NOTE | 2020-07-20 09:30 | PC.NURSE ---
915 Pt. give apple juice 930 BG 51 EDP notified, EDP asked to give Pt. another apple juice
[2020-07-20 09:35] LABS: Potassium 4.6 mmol/L (3.4-5.0)
[2020-07-20 09:41] LABS: Glucose Point of Care 51 (65-105)
[2020-07-20 10:19] LABS: Glucose Point of Care 77 (65-105)
--- NOTE | 2020-07-20 10:55 | PC.NURSE ---
Pt. ambulated on spo2 device on room air. Pt. remained at 97% while ambulating.
[2020-07-20 12:04] LABS: Troponin I 0.083 ng/mL (0.000-0.034)
== END 2020-07-20 12:38 | disposition home or self-care (01) ==
PROVIDERS: Emergency Provider Emergency Medicine; PCP Emergency Medicine
DX: R06.02 Shortness of breath (principal); J81.1 Chronic pulmonary edema; F17.210 Nicotine dependence, cigarettes, uncomplicated; I25.2 Old myocardial infarction; I12.0 Hypertensive chronic kidney disease with stage 5 chronic kidney disease or end stage renal disease; E11.22 Type 2 diabetes mellitus with diabetic chronic kidney disease; N18.6 End stage renal disease; Z99.2 Dependence on renal dialysis; Z79.4 Long term (current) use of insulin
CPT/HCPCS: 36415; 71045; 74176; 80048; 82948; 83690; 83880; 84484; 85025; 85610; 85730; 93005; 99284

== ENCOUNTER 2020-07-23 06:15 | Inpatient (IN) | payer MEDICARE, MEDICAID, SELFPAY ==
[2020-07-23] VITALS (40 sets, daily range): BP systolic 100–223; BP diastolic 37–93; PULSE 69–146; RESP 12–22; TEMP 35.4–37; O2SAT 88–100
--- NOTE | ~2020-07-23 | XR_ITS ---
XR chest 1V portable 07/26/2020 10:28 Indication: Assess for rib fracture. Mid chest pain. Procedure: AP portable chest Comparison: Comparison to multiple prior studies sequentially, with oldest reviewed study dated 05/2020. Findings: There are bilateral interstitial infiltrates. Heart size normal. No pleural effusion or pne umothorax. No acute osseous abnormality identified. There is a healing right ninth rib fracture. Impression: 1: Healing right ninth rib fracture. Possible 10th rib fracture. 2: Bilateral interstitial infiltrates of the mid and lower lungs which may represent atelectasis and /or atypical pneumonia. Reviewed, dictated and finalized at location A. Impression: 1: Healing right ninth rib fracture. Possible 10th rib fracture. 2: Bilateral interstitial infiltrates of the mid and lower lungs which may rep resent atelectasis and/or atypical pneumonia.
--- NOTE | ~2020-07-23 | CT_ITS ---
EXAMINATION: CT brain wo con INDICATION: Altered mental status, hypotension COMPARISON: 12/04/2018 TECHNIQUE: Standard unenhanced head CT. The dose-length product (DLP) was 605.33 mGy-cm. The mA was a djusted according to patient size. Iterative reconstruction technique was employed. FINDINGS: There is no intracranial hemorrhage, acute infarction, or abnormal mass lesion. Chronic enc ephalomalacia in the left anterior frontal lobe may reflect prior infarct or prior traumatic brain in jury. The ventricles are normal. There is no abnormal mass effect or midline shift. The brown-white ma tter differentiation is normal. The basal cisterns are patent. The orbits are normal. Intracranial ca lcified cerebral atherosclerosis is noted. There is partial opacification of the left mastoid air lila ls. IMPRESSION: 1. Chronic encephalomalacia in the left anterior frontal lobe without acute intracranial abnormality. Reviewed, dictated and finalized at location B. IMPRESSION: 1. Chronic encephalomalacia in the left anterior frontal lobe without acute int racranial abnormality.
--- NOTE | ~2020-07-23 | XR_ITS ---
EXAMINATION: XR chest ET placement, XR abdomen NG/feed tube insert DATE: 07/23/2020 06:53 INDICATION: Endotracheal tube placement. Nasogastric tube placement. TECHNIQUE: 1. Frontal view of the chest was obtained. 2. AP supine view of the abdomen was obtained. COMPARISON: Chest radiograph dated 07/20/2020 FINDINGS: Endotracheal tube tip 3.4 cm above the luciano. Nasogastric tube tip in proximal side port in the body of the stomach. Slight increase in the diffuse interstitial and perihilar predominant patchy airspace opacities with peripheral Marilee B-lines consistent with worsening pulmonary edema. No pleural effusion or pneumotho rax. Borderline heart size accounting for AP technique. Incompletely visualized vertical devyn and pedicle screw fixation for lower lumbar posterior spinal fus ion. There is also a likely pain management device with stimulator leads projecting over the lumbar s pine. Visualized bowel gas pattern in the upper abdomen is unremarkable. IMPRESSION: 1. Endotracheal tube and nasogastric tube in expected positions. 2. Worsening pulmonary edema. Reviewed, dictated and finalized at location A. IMPRESSION: 1. Endotracheal tube and nasogastric tube in expected positions. 2. Worsening pulmonary edema.
--- NOTE | ~2020-07-23 | XR_ITS ---
XR chest 1V portable 07/25/2020 07:03 Indication: Pulmonary edema. Respiratory failure. Procedure: AP portable chest Comparison: Comparison to multiple prior studies sequentially, with oldest reviewed study dated 07/05. Findings: Heart size normal for technique. Mild interstitial edema. No pleural effusion or pneumothor ax. No acute osseous abnormality. Impression: 1: Mild interstitial edema. Reviewed, dictated and finalized at location A. Impression: 1: Mild interstitial edema.
--- NOTE | ~2020-07-23 | XR_ITS ---
EXAMINATION: XR chest 1V portable DATE: 07/24/2020 05:49 INDICATION: Acute respiratory failure. Pulmonary edema. TECHNIQUE: frontal view of the chest was obtained. COMPARISON: Chest radiograph dated 07/23/2020 FINDINGS: Endotracheal tube tip 4.4 cm above the luciano. Nasogastric tube extends below the left hemidiaphragm with distal tip collimated off the study. Resolution of prior pulmonary edema. No new airspace opacities, pleural effusion or pneumothorax. Car diomediastinal silhouette is normal. IMPRESSION: 1. Resolution of prior pulmonary edema. No evident acute cardiopulmonary disease. Reviewed, dictated and finalized at location A. IMPRESSION: 1. Resolution of prior pulmonary edema. No evident acute cardiopulmonary diseas e.
--- NOTE | 2020-07-23 06:33 | ECG_ITS ---
Measurements Intervals Cerulean Rate: 97 P: WV: 0 QRS: 111 QRSD: 94 T: 152 QT: 367 QTc: 468 Interpretive Statements SINUS RHYTHM LIMB LEAD REVERSSAL LEFT ATRIAL ENLARGEMENT BORDERLINE R WAVE PROGRESSION, ANTERIOR LEADS BORDERLINE ST-T WAVE ABNORMALITY- ANTEROLAT/INF LEADS BASELINE ARTIFACT- I, II, III, AVR, AVF, V4-V5 BORDERLINE ECG Electronically Signed On 07-23-2020 7:08:10 CDT by Edmond Elias D.O.
--- NOTE | 2020-07-23 06:36 | ED.SOB ---
HPI - SOB/Dyspnea General Chief Complaint: Shortness of Breath/Dyspnea <Lex Oliveira MD - Last Filed: 07/24/20 14:46> Stated Complaint: STEMI <Lex Oliveira MD - Last Filed: 07/24/20 14:46> Time Seen by Provider: 07/23/20 06:33 <Lex Oliveira MD - Last Filed: 07/24/20 14:46> History of Present Illness HPI Narrative: EMS called to his house for SOB. Patient in severe distress. Found to have ST elevations in V1-V3. He reportedly nodded yes to chest pain. STEMI was called in the field. On arrival He was unresponsive. History limited by medical condition and mental status. <Lex Oliveira MD - Last Filed: 07/24/20 14:46> Related Data Home Medications: Home Medications Medication Instructions Recorded Confirmed Lantus Solostar U-100 Insulin 10 unit SUBCUT HS 02/05/20 07/23/20 Vitamin D3 4,000 unit PO DAILY 02/05/20 07/23/20 carvedilol 25 mg PO BID 02/05/20 07/23/20 furosemide 80 mg PO BID 02/05/20 07/23/20 insulin lispro [Humalog KwikPen See Rx Instructions .ROUTE .COMPLEX 02/05/20 07/23/20 Insulin] nitroglycerin 0.4 mg SUBLINGUAL Q5MIN PRN 02/05/20 07/23/20 pantoprazole 40 mg PO BID 02/05/20 07/23/20 losartan 100 mg PO DAILY 04/10/20 07/23/20 Lantus Solostar U-100 Insulin 12 unit SUBCUT QAM 04/11/20 07/23/20 calcium carbonate [Tums] 200 mg PO PRN PRN 04/11/20 07/23/20 albuterol sulfate 1 inh INHALATION QID 07/02/20 07/23/20 aspirin 81 mg PO DAILY 07/02/20 07/23/20 atorvastatin [Lipitor] 40 mg PO DAILY 07/02/20 07/23/20 lorazepam [Ativan] 1 mg PO BID PRN 07/02/20 07/23/20 sertraline [Zoloft] 25 mg PO DAILY 07/02/20 07/23/20 ticagrelor [Brilinta] 90 mg PO DAILY 07/02/20 07/23/20 B complex-vitamin C-folic acid 1 tablet PO DAILY 07/23/20 07/23/20 [Dang-Nilsa] lanthanum 1,000 mg PO TID 07/23/20 07/23/20 nicotine 1 patch TRANSDERMAL DAILY 07/23/20 07/23/20 rosuvastatin 10 mg PO DAILY 07/23/20 07/23/20 <Lex Oliveira MD - Last Filed: 07/24/20 14:46> Allergies/Adverse Reactions: Allergies Allergy/AdvReac Type Severity Reaction Status Date / Time scopolamine Allergy Severe Unresponsiv Verified 07/23/20 07:32 e <Lex Oliveira MD - Last Filed: 07/24/20 14:46> Review of Systems Review of Systems: ROS unobtainable: Yes unobtainable due to medical condition and unobtainable due to mental status <Lex Oliveira MD - Last Filed: 07/24/20 14:46> [facility] Past Medical History Medical History: Medical History Acute blood loss anemia Anxiety Benign prostatic hyperplasia CHF (congestive heart failure) Chronic anemia Chronic kidney disease requiring chronic dialysis Coronary artery disease With non STEMI in December 2019, with stent placed to the LAD. Depression with anxiety End-stage renal disease on hemodialysis Flash pulmonary edema Gastric ulcer GERD (gastroesophageal reflux disease) Hyperkalemia Hypertension Hypertension Renal osteodystrophy Seizure Secondary to hypoglycemia. STEMI (ST elevation myocardial infarction) Tobacco dependence Type 1 diabetes mellitus Diagnosed at the age of 10. Complicated by retinopathy, nephropathy, and neuropathy. Hemoglobin A1c was 8.1% in December 2019. Vitamin D deficiency disease <Lex Oliveira MD - Last Filed: 07/24/20 14:46> Surgical History Surgical History: Surgical History H/O endoscopy June 27, 2020 H/O heart artery stent LAD December of 2019 twice a cough June 26, 2020 left coronary Angiography the myectomy of LAD and stent thrombosis PTCA and stenting of LAD distal the previous devise a History of spinal surgery Neurostimulator in place. Hx of BKA S/P dialysis catheter insertion left forearm Status post below knee amputation of right lower extremity December 02, 2019 at [facility]. Status post cataract extraction Status post hemorrhoidectomy
[2020-07-23] MEDS: NITROGLYCERIN OINTMENT 1 INCH DOSE (06:40)
[2020-07-23 06:53] LABS: Basophils Absolute Auto 0.1 K/mm3 (0.0-0.1); Basophils Percent Auto 0.6 % (0.2-1.2); Eosinophils Absolute Auto 0.3 K/mm3 (0-0.3); Eosinophils Percent Auto 2.8 % (0-4.4); Hematocrit 31.9 % (42.0-52.0); Hemoglobin 9.6 g/dL (14.0-18.0); Immature Granulocyte Absolute 0.05 K/mm3 (0.00-0.031); Immature Granulocyte Percent A 0.5 % (0-0.5); Lymphocytes Absolute Auto 2.23 K/mm3 (0.9-3.2); Lymphocytes Percent Auto 21.5 % (18.3-44.2); Mean Corpuscular HGB Conc 30.1 g/dl (32-36); Mean Corpuscular Volume 102.9 fl (80-100); Mean Platelet Volume 10.7 fl (7.4-10.4); Monocytes Absolute Auto 0.9 K/mm3 (0.1-0.6); Monocytes Percent Auto 8.2 % (2.6-8.5); Neutrophils Absolute Auto 6.9 K/mm3 (1.3-6.7); Neutrophils Percent Auto 66.4 % (45.5-73.1); Platelet Count Result 409 k/mm3 (150-375); Red Cell Distribution Width 16.8 % (11.5-14.5); White Blood Count 10.4 K/mm3 (4.5-10.0)
--- NOTE | 2020-07-23 07:00 | PC.NURSE ---
pt intubated by TIM Oliveira at 0622, tube size #7, 23CM AT LIPS. PT SEDATED WITH 20MG ETOMIDATE, AND 50MG OF ROCK AT 0619.
[2020-07-23 07:02] LABS: Magnesium 2.3 mg/dL (1.6-2.3)
[2020-07-23 07:03] LABS: INR 1.1; Prothrombin Time 13.6 Seconds (11.1-14.7)
[2020-07-23 07:04] LABS: Partial Thromboplastin Time 37.2 SECONDS (22.3-36.8)
--- NOTE | 2020-07-23 07:08 | ECG_ITS ---
Measurements Intervals Gage Rate: 98 P: 51 MS: 170 QRS: 70 QRSD: 101 T: 92 QT: 360 QTc: 460 Interpretive Statements SINUS RHYTHM BORDERLINE R WAVE PROGRESSION, ANTERIOR LEADS BORDERLINE ST-T WAVE ABNORMALITY- LAT/HIGH LAT LEADS BASELINE WANDER- I, II, AVR, AVL, AVF, V4-V6 BORDERLINE ECG Electronically Signed On 07-23-2020 8:26:09 CDT by Edmond Elias D.O.
[2020-07-23 07:59] LABS: Alveolar/Arterial O2 Gradient 255.9 mmHg; Base Excess ABG -3.8 mEq/l (+/-2.0); Fractional Inspired Oxygen 70 %; HCO3 ABG 25.8 mEq/l (22.0-26.0); Oxygen Content ABG 14.9 %vol (16.0-22.0); Oxygen Saturation ABG 98.5 % (95.0-100.0); Oxyhemoglobin 96.7 % THb (90.0-100.0); PO2 FiO2 Ratio Arterial Blood 2.34 %; Total Hemoglobin 10.7 g/dL (12.0-18.0)
[2020-07-23 08:01] LABS: Device VENTILATOR; Modified Allen's Test Pass; PCO2 ABG 73.7 mmHg (35.0-45.0); Site Drawn LEFT RADIAL; pH ABG 7.162 (7.350-7.450)
[2020-07-23 08:02] LABS: Arterial Blood Gas Vent Mode CMV; Arterial Blood Gas Ventilator rate 12 /MIN
[2020-07-23 08:03] LABS: Arterial Blood Gas Minute Volume 0 LPM; Arterial Blood Gas PEEP 5 cmH2O; Arterial Blood Gas Pressure Support 0 cmH2O; Arterial Blood Gas Tidal Volume 400 ml; Peak Inspiratory Pressure 0 cmH2O
[2020-07-23 09:13] LABS: Anion Gap 11 mmol/L (8-16); Blood Urea Nitrogen 48 mg/dL (9-20); Calcium 8.6 mg/dL (8.4-10.2); Carbon Dioxide 29 mmol/L (22-30); Chloride 93 mmol/L (98-107); Estimated Glomerular Filt Rate 9; Glucose 440 mg/dL (75-110); Potassium 7.5 mmol/L (3.4-5.0); Sodium 133 mmol/L (137-145)
[2020-07-23] MEDS: INSULIN HUMAN REGULAR (*BKC) 100 UNITS/ML 10 UNITS IV PUSH (09:26)
[2020-07-23] MEDS: SODIUM BICARBONATE 8.4% 50 MEQ/50 ML VIAL IV PUSH (09:27)
[2020-07-23] MEDS: DEXTROSE 50% 25 GM/50 ML SYRINGE IV PUSH (09:27)
[2020-07-23 09:28] LABS: NT Pro B Type Natriuretic Pept > 35000 PG/ML (5-100); Troponin I 0.083 ng/mL (0.000-0.034)
[2020-07-23] MEDS: ALBUTEROL SULFATE NEB 2.5 MG/0.5 ML INH 20 MG INHALATION (10:14)
[2020-07-23] MEDS: ALBUTEROL SULFATE NEB 2.5 MG/0.5 ML INH 20 MG (10:20)
[2020-07-23 11:10] LABS: Alveolar/Arterial O2 Gradient 194.2 mmHg; Base Excess ABG 3.1 mEq/l (+/-2.0); Fractional Inspired Oxygen 70 %; HCO3 ABG 27.8 mEq/l (22.0-26.0); Oxygen Saturation ABG 99.6 % (95.0-100.0); Oxyhemoglobin 98.2 % THb (90.0-100.0); PCO2 ABG 43.4 mmHg (35.0-45.0); PO2 ABG 258.3 mmHg (80.0-100.0); PO2 FiO2 Ratio Arterial Blood 3.69 %; Total Hemoglobin 10.4 g/dL (12.0-18.0); pH ABG 7.425 (7.350-7.450)
[2020-07-23 11:11] LABS: Arterial Blood Gas PEEP 8 cmH2O; Arterial Blood Gas Vent Mode CMV; Arterial Blood Gas Ventilator rate 20 /MIN; Device VENTILATOR; Modified Allen's Test Pass; Site Drawn RIGHT RADIAL
[2020-07-23 11:12] LABS: Arterial Blood Gas Tidal Volume 450 ml
[2020-07-23] MEDS: SODIUM POLYSTYRENE SULFONONATE 15 GM/60 ML BTL PO (11:12)
--- NOTE | 2020-07-23 12:10 | WPDCNINT ---
Assessment and Plan Assessment and plan (1) Acute respiratory failure with hypoxia and hypercarbia: Code(s): J96.01 - Acute respiratory failure with hypoxia; J96.02 - Acute respiratory failure with hypercapnia Status: Acute Assessment and Plan: acute respiratory failure likely related to volume overload, pulmonary edema secondary to end-stage renal disease on dialysis and or congestive heart failure. - Patient being emergently dialyzed - remains on CMV mode of ventilation, peep of 5, 70% FiO2, repeat ABG with much improvement in hypercarbia and respiratory acidosis. Ventilator adjusted, CO2 weaned down to 50% - continue fentanyl and Versed for sedation, maintain RASS of 0 to -2, the sedation vacation (2) Cardiac arrest: Code(s): I46.9 - Cardiac arrest, cause unspecified Status: Acute Assessment and Plan: patient with brief cardiac arrest likely respiratory event, ROSC with 2 rounds of epi and CPR - patient is awake post cardiac arrest and follows commands, not a candidate for hypothermia protocol - elevated troponins, Cardiology was consulted from the ER - there was some mention of ST elevation of the initial EKG in the field when EMS arrived. Repeat EKG in the ER did not show any ST elevations. - Will await evaluation from Cardiology - patient does have an extensive cardiac history, with recent in stent thrombosis on 06/26/2020 status post successful PCI involving extraction thrombectomy - continue Brilinta, aspirin, statin (3) Acute hyperkalemia: Code(s): E87.5 - Hyperkalemia Status: Acute Assessment and Plan: patient with acute hyperkalemia with potassium level of 7.5, treated with calcium, bicarbonate, insulin and D50 and Kayexalate, patient also received albuterol nebulizer - currently being dialyzed, will repeat [facility] follow-up potassium level (4) ESRD (end stage renal disease): Code(s): N18.6 - End stage renal disease Status: Acute Assessment and Plan: patient with end-stage renal disease on hemodialysis, Monday and Monday - patient did get dialyzed on 07/22/2020 according this - appreciate Nephrology evaluation, further dialysis per Nephrology (5) CHF (congestive heart failure): Qualifiers: Heart failure type: combined systolic and diastolic Heart failure chronicity: acute on chronic Qualified Code(s): I50.43 - Acute on chronic combined systolic (congestive) and diastolic (congestive) heart failure Code(s): I50.9 - Heart failure, unspecified Status: Acute Assessment and Plan: cardiomyopathy and congestive heart failure systolic and diastolic - Will hold carvedilol, furosemide, losartan echocardiogram 06/26/2020: showed EF of 25 30%, grade 2 diastolic dysfunction, severe aortic valve sclerosis, mild mitral valve regurg, mild pulmonary hypertension with RVSP of 43 mmHg. (6) DVT prophylaxis: Code(s): Z29.9 - Encounter for prophylactic measures, unspecified Status: Acute Assessment and Plan: heparin subcu Additional Plan discussed with patient's and updated with his condition and plan of care. Answered all her questions code status: Full code critical care time spent: 46 minutes Due to a high probability of clinically significant, life threatening deterioration, the patient required my highest level of preparedness to intervene emergently and I personally spent this critical care time directly and personally managing the patient. This critical care time included obtaining a history; examining the patient; pulse oximetry; ordering and review of studies; arranging urgent treatment with development of a management plan; evaluation of patient's response to treatment; frequent reassessment; and discussions with other providers. It was exclusive of separately billable procedures and treating other patients and teaching time. Please see Assessment and Plan section and the res
[2020-07-23 12:40] LABS: Troponin I 0.112 ng/mL (0.000-0.034)
--- NOTE | 2020-07-23 12:59 | PM.IMHP ---
H&P: HPI History of Present Illness Date/Time: 07/23/20 12:59 Chief complaint: cardiac arrest,respiratory failure Narrative: Ish Corley is a 54 year old male Who has a history of insulin-dependent diabetes type 1 and end-stage renal disease on dialysis. The patient has dialysis on Monday. The last day that the patient had dialysis was yesterday. His is at the bedside answering questions for me. She stated that he had a full treatment yesterday he has been very compliant with his dialysis. She stated that his blood pressure and his blood sugars were high yesterday. She said that his blood sugars were in the 500s last night he was feeling very lethargic. She stated that his blood pressure was so high yesterday that thumb monitor at home would not rated she had to give him some clonidine. She also had a give him insulin every 2 hours x2. Today the patient felt very weak and had a seen his wheelchair. Has a prosthetic leg for the right gocvr-eyw-tlex amputation but was not able to ambulate today. He became very diaphoretic and short of breath today. He has his to call the ambulance. At the time he did not tell her that he was having any chest pain. His EKG was read as sinus rhythm borderline R-wave progression anterior leads. He reportedly nodded yes to chest pain when EMS came. a STEMI was called in the field. On 06/26/2020 the patient had a stent thrombosis of the LAD and underwent successful PCI involving a extraction thrombectomy Upon arrival to ER he was unresponsive. The patient Mike down and then went into cardiac arrest. CPR was initiated and 2 rounds of Epinephrine and a dose of calcium chloride were given in the emergency room to regain pulse. pulse was regained after those IV medications were given. Patient was intubated in the emergency room. His potassium was found to be 7.5. The patient was also given insulin, dextrose and bicarb. Nephrology has been consulted. The polymer chemist has seen the patient. He is currently getting dialysis at this time. Troponin 0.112. BNP greater than 35,000. the patient was also given a nebulizer treatment and sodium bicarb as well as nitroglycerin. I spent approximately 1 hour reviewing the chart , assessing the patient and speaking with his . his admitted to ICU date of service is 07/23/2020 Review of Systems Review of Systems: ROS unobtainable: Yes unobtainable due to endotracheal tube Constitutional: Constitutional: Reports as per HPI and Reports no additional constitutional complaints Eyes: Eyes: Reports as per HPI and Reports no additional eye complaints ENT: Reports system reviewed and no additional complaints, except as documented and Reports Normal hearing present Cardiovascular: Cardiovascular: Reports no additional cardiovascular complaints Respiratory: Respiratory: Reports no additional respiratory complaints and Reports no additional respiratory complaints Gastrointestinal: Gastrointestinal: Reports as per HPI and Reports no additional gastrointestinal complaints Musculoskeletal: Musculoskeletal: Reports no additional musculoskeletal complaints Integumentary/Breasts: Skin/Breast: Reports system reviewed and no additional complaints, except as docu and Reports as per HPI Neurologic: Reports system reviewed and no additional complaints, except as documented, Reports as per HPI and Reports Normal hearing present Psychiatric: Psychiatric: Reports no additional psychiatric complaints and Reports as per HPI Endocrine: Endocrine: Reports no additional endocrine complaints Hematologic/Lymphatic: Hematologic/Lymphatic: Reports no additional hematologic/lymphatic complaints Allergic/Immunologic: Allergic/Immunologic: Reports no additional allergic/immunologic complaints [facility], [facility] Past Medical History Medical History Acute blood loss anemia Anxiety Benign prostatic hyperplasia CHF (congestive
--- NOTE | 2020-07-23 13:24 | PM.PNNEP ---
Progress Note: A&P Assessment and Plan (1) ESRD (end stage renal disease): Code(s): N18.6 - End stage renal disease Status: Acute Assessment and Plan: emergent HD today for pulmonary edema and hyperkalemia possible HD tomorrow depending on AM labs and CXR FULL CONSULT to follow Subjective Date/time seen: 07/23/20 13:24 Tolerating dialysis treatment at the time of my visit (seen on HD at ~1:00PM); intubated/sedated but in no apparent distress. Objective Data Vital Signs Vital Signs: Vital Signs Temp Pulse Resp BP Pulse Ox 07/23/20 13:15 92 116/68 07/23/20 13:00 90 118/74 07/23/20 12:45 89 136/79 07/23/20 12:30 85 120/74 07/23/20 12:15 85 136/75 07/23/20 12:00 79 126/67 07/23/20 11:57 78 137/75 07/23/20 11:45 35.9 C L 75 14 109/66 100 07/23/20 10:43 79 20 07/23/20 10:00 78 20 100 07/23/20 09:33 80 16 149/74 H 100 07/23/20 08:45 85 18 07/23/20 08:44 85 18 07/23/20 08:38 86 21 H 195/83 H 100 07/23/20 07:50 102 H 100 07/23/20 07:02 99 16 158/61 H 100 07/23/20 06:47 122 H 100 07/23/20 06:31 146 H 16 223/93 H 100 07/23/20 06:14 35.4 C L 97 22 H 132/37 L 88 L Meds/Results Medications: Active Medications Generic Name Dose Route Start Last Admin Trade Name Freq PRN Reason Stop Dose Admin Dextrose 12.5 gm 07/23/20 12:22 Dextrose 50% Syringe IV PUSH PRN PRN Hypoglycemia Protocol Glucagon 1 mg 07/23/20 12:22 Glucagon For Inj IM PRN PRN Hypoglycemia Protocol Glucose 15 gm 07/23/20 12:22 Glutose 15 PO PRN PRN Hypoglycemia Protocol Fentanyl Citrate 2,500 mcg in 250 mls @ 2.5 mls/hr 07/23/20 08:20 07/23/20 10:00 Fentanyl 2,500 Mcg/Ns 250 Ml IV CONT 25 mcg/hr .Q72H MARTHA 2.5 mls/hr Infusion 25 MCG/HR Midazolam HCl 50 mg in 100 mls @ 2 mls/hr 07/23/20 08:20 07/23/20 10:00 Versed 50 Mg/D5w 100 Ml IV CONT 1 mg/hr .Q50H MARTHA 2 mls/hr Infusion 1 MG/HR Albumin Human 50 mls @ 999 mls/hr 07/23/20 10:59 Albutein IVPB 08/22/20 11:00 Q10M PRN HYPOTENSION Dextrose 1,000 mls @ 100 mls/hr 07/23/20 12:22 Dextrose 5% 1,000 Ml IVPB PRN PRN Hypoglycemia Protocol Insulin Aspart 4 - 8 units 07/23/20 12:00 Novolog SUB-Q TIDWM MARTHA Protocol Rosuvastatin Calcium 10 mg 07/24/20 09:00 Crestor PO DAILY MARTHA Ticagrelor 90 mg 07/24/20 09:00 Brilinta PO DAILY [facility] Radiology Results: ITS Impressions Abdomen X-Ray 07/23/20 07:22 IMPRESSION: 1. Endotracheal tube and nasogastric tube in expected positions. 2. Worsening pulmonary edema. Chest X-Ray 07/23/20 07:22 IMPRESSION: 1. Endotracheal tube and nasogastric tube in expected positions. 2. Worsening pulmonary edema. Head CT 07/23/20 08:38 IMPRESSION: 1. Chronic encephalomalacia in the left anterior frontal lobe without acute intracranial abnormality. Labs Labs: Laboratory Tests 07/23/20 06:34 07/23/20 08:48 Quality Patient seen and evaluated on hemodialysis ([id number]).
[2020-07-23] MEDS: INSULIN GLARGINE (*BKC) 100 UNITS/ML SUB-Q (13:38)
[2020-07-23 13:43] LABS: Glucose Point of Care 164 (65-105)
--- NOTE | 2020-07-23 13:58 | PM.CNCAR ---
Assessment and Plan Assessment and plan (1) Cardiac arrest: Code(s): I46.9 - Cardiac arrest, cause unspecified Status: Acute Assessment and Plan: In setting of severe hyperkalemia, acute pulmonary edema and respiratory failure, bradycardic arrest not secondary to acute myocardial infarction. (2) Acute respiratory failure with hypoxia and hypercarbia: Code(s): J96.01 - Acute respiratory failure with hypoxia; J96.02 - Acute respiratory failure with hypercapnia Status: Acute Assessment and Plan: Secondary to pulmonary edema from volume overload suspect inadequate hemodialysis and hypertensive urgency. Hemodialysis for volume management. Continue ventilatory support, wean as tolerated. Defer to Critical Care in this regard. (3) Pulmonary edema: Code(s): J81.1 - Chronic pulmonary edema Status: Acute Assessment and Plan: As above. (4) Cardiomyopathy: Code(s): I42.9 - Cardiomyopathy, unspecified Status: Acute Assessment and Plan: Severe LV dysfunction EF previously documented 25-30%. As above, volume management per hemodialysis. (5) Coronary artery disease: Qualifiers: Coronary Disease-Associated Artery/Lesion type: [place] artery [place] vs. transplanted heart: [place] heart Associated angina: without angina Qualified Code(s): I25.10 - Atherosclerotic heart disease of [place] coronary artery without angina pectoris Code(s): I25.10 - Atherosclerotic heart disease of [place] coronary artery without angina pectoris Status: Acute Assessment and Plan: Minimal troponin elevation given his presentation. No evidence for acute myocardial infarction/ ACS as primary explanation for patient's presentation and cardiac arrest. Must continue aspirin, Brilinta without interruption due to stent thrombosis LAD in setting of ST-elevation [place] June 2020. Continue statin therapy. Stop Rosuvastatin, continue atorvastatin 40 mg daily which he was taking at discharge in June. (6) Hypertensive urgency: Code(s): I16.0 - Hypertensive urgency Status: Acute Assessment and Plan: as above, blood pressure very high with evidence of pulmonary edema. BP much better controlled. (7) Acute hyperkalemia: Code(s): E87.5 - Hyperkalemia Status: Acute Assessment and Plan: Hyperkalemic 7.5 at presentation status post treatment. Electrolyte management per hemodialysis as well. (8) End stage renal disease: Code(s): N18.6 - End stage renal disease Status: Acute Assessment and Plan: Hemodialysis Per Nephrology. History of Present Illness History of Present Illness Consult date/time: Date of service: 07/23/20 13:58 This is a cardiology consultation at the request of Dr. Roca of the Emergency Department for our opinion regarding cardiac arrest. Requesting physician: Judy Roca MD Consult reason: Other (cardiac arrest) Reason For Visit: cardiac arrest,respiratory failure Narrative: Mr. Corley is 54-year-old male with a history of type 1 diabetes mellitus, end-stage renal disease on hemodialysis, history of severe LV dysfunction EF 25-30%, NSTEMI 12/2019 s/p 3.0 x 26 mm drug-eluting stent in proximal LAD extending across Diagonal branch, anterior STEMI 06/26/20 presenting in acute pulmonary edema due to stent thrombosis s/p aspiration thrombectomy and placement of 3.5 x 22 mm MANPREET overlapping previous stent at site of 70% at proximal edge of the stent, occluded of jailed diagonal branch. It is noted the patient suffered GI bleeding post intervention during that hospitalization. Pt has a h/o severe PAD s/p R AKA, ongoing tobacco abuse, HTN with multiple ER visits for various complaints who presented to the emergency department this visit with complaints of increasing shortness of breath and reported confusion. Her electronic medical record patient had completed dialysis the day before but was
[2020-07-23 14:27] LABS: Hemoglobin A1C 7.6 % (<5.7)
[2020-07-23 17:55] LABS: Troponin I 0.227 ng/mL (0.000-0.034)
[2020-07-23 18:52] LABS: Glucose Point of Care 212 (65-105)
[2020-07-23] MEDS: INSULIN ASPART (*BKC) 100 UNITS/ML SUB-Q (18:54)
[2020-07-23] MEDS: ASPIRIN 81 MG ENTERIC TABLET PO (18:54)
[2020-07-23] MEDS: HEPARIN SODIUM 5,000 UNITS/ML VIAL 5000 UNITS SUB-Q (20:16)
[2020-07-23 23:25] LABS: Glucose Point of Care 174 (65-105)
[2020-07-24] VITALS (35 sets, daily range): BP systolic 86–157; BP diastolic 47–96; PULSE 87–400; RESP 10–25; TEMP 35–37.4; O2SAT 92–100
[2020-07-24 04:24] LABS: Basophils Percent Auto 0.4 % (0.2-1.2); Eosinophils Absolute Auto 0.2 K/mm3 (0-0.3); Eosinophils Percent Auto 1.6 % (0-4.4); Hematocrit 33.6 % (42.0-52.0); Hemoglobin 10.4 g/dL (14.0-18.0); Immature Granulocyte Absolute 0.04 K/mm3 (0.00-0.031); Immature Granulocyte Percent A 0.4 % (0-0.5); Lymphocytes Absolute Auto 1.36 K/mm3 (0.9-3.2); Lymphocytes Percent Auto 13.7 % (18.3-44.2); Mean Corpuscular Hemoglobin 30.7 pg (26-34); Mean Corpuscular Volume 99.1 fl (80-100); Mean Platelet Volume 9.6 fl (7.4-10.4); Monocytes Percent Auto 9.7 % (2.6-8.5); Neutrophils Absolute Auto 7.4 K/mm3 (1.3-6.7); Neutrophils Percent Auto 74.2 % (45.5-73.1); Platelet Count Result 370 k/mm3 (150-375); Red Blood Count 3.39 M/mm3 (4.6-6.20); Red Cell Distribution Width 16.4 % (11.5-14.5)
[2020-07-24 04:29] LABS: Alveolar/Arterial O2 Gradient 175.8 mmHg; Base Excess ABG 2.4 mEq/l (+/-2.0); Carboxyhemoglobin 0.3 % THb (0-2.0); Fractional Inspired Oxygen 50 %; HCO3 ABG 26.4 mEq/l (22.0-26.0); Oxygen Content ABG 14.6 %vol (16.0-22.0); Oxygen Saturation ABG 98.9 % (95.0-100.0); Oxyhemoglobin 98.1 % THb (90.0-100.0); PCO2 ABG 38.4 mmHg (35.0-45.0); PO2 ABG 137.5 mmHg (80.0-100.0); PO2 FiO2 Ratio Arterial Blood 2.75 %; Reduced Hemoglobin 1.6 %THb (0-5.0); Total Hemoglobin 10.4 g/dL (12.0-18.0); pH ABG 7.455 (7.350-7.450)
[2020-07-24 04:30] LABS: Site Drawn RIGHT RADIAL
[2020-07-24 04:31] LABS: Device VENTILATOR; Modified Allen's Test Pass
[2020-07-24 04:33] LABS: Arterial Blood Gas PEEP 5 cmH2O; Arterial Blood Gas Tidal Volume 450 ml; Arterial Blood Gas Vent Mode CMV; Arterial Blood Gas Ventilator rate 16 /MIN
[2020-07-24 05:22] LABS: Alanine Aminotransferase 42 U/L (4-50); Albumin Level 3.9 g/dL (3.5-5.1); Alkaline Phosphatase 98 U/L (38-126); Anion Gap 14 mmol/L (8-16); Aspartate Amino Transferase 45 U/L (17-59); Bilirubin,Total 0.6 mg/dL (0.2-1.3); Blood Urea Nitrogen 24 mg/dL (9-20); Calcium 9.3 mg/dL (8.4-10.2); Carbon Dioxide 28 mmol/L (22-30); Chloride 95 mmol/L (98-107); Estimated Glomerular Filt Rate 12; Glucose 250 mg/dL (75-110); Magnesium 1.9 mg/dL (1.6-2.3); Phosphorus 7.5 mg/dL (2.5-4.5); Potassium 4.2 mmol/L (3.4-5.0); Sodium 137 mmol/L (137-145)
[2020-07-24] MEDS: INSULIN ASPART (*BKC) 100 UNITS/ML SUB-Q ×5 (05:28→23:18)
--- NOTE | 2020-07-24 09:10 | PM.IMPN ---
Progress Note: A&P Assessment and Plan (1) Cardiac arrest: Code(s): I46.9 - Cardiac arrest, cause unspecified Status: Acute Assessment and Plan: Patient was coded and intubated placed in ICU. Emergent dialysis was started. Most likely this resulted from his high potassium level. also due to fluid overload. Vent settings per radar repairer. The patient has a history of coronary artery disease and remains on Brilinta, aspirin and statins. No ST elevation was noted on the EKG when he arrived to the hospital. Patient received 2 rounds of epi in the emergency room. Elevated troponins, cardiology was consulted. He is alert and following commands today, critical care planning for possible extubation. (2) Acute respiratory failure with hypoxia and hypercarbia: Code(s): J96.01 - Acute respiratory failure with hypoxia; J96.02 - Acute respiratory failure with hypercapnia Status: Acute Assessment and Plan: Arterial blood gases have improved. Patient is intubated on the vent but improving he might be extubated today. (3) Acute hyperkalemia: Code(s): E87.5 - Hyperkalemia Status: Acute Assessment and Plan: Treated in the emergency room with calcium carbonate, bicarbonate, insulin D50, and Kayexalate as well as albuterol nebulizer treatments. He is currently being dialysis. K wnl now.. (4) CHF (congestive heart failure): Qualifiers: Heart failure type: combined systolic and diastolic Heart failure chronicity: acute on chronic Qualified Code(s): I50.43 - Acute on chronic combined systolic (congestive) and diastolic (congestive) heart failure Code(s): I50.9 - Heart failure, unspecified Status: Acute Assessment and Plan: On coreg and lasix and losartan. Patient has a EF of 25-30% with a grade 2 diastolic dysfunction. (5) Hypertension: Code(s): I10 - Essential (primary) hypertension Status: Acute Assessment and Plan: Back on his home medications (6) CAD (coronary artery disease): Code(s): I25.10 - Atherosclerotic heart disease of [place] coronary artery without angina pectoris Status: Acute Assessment and Plan: Resume her ASA, brilinta and statin. (7) Diabetes mellitus: Code(s): E11.9 - Type 2 diabetes mellitus without complications Status: Acute Assessment and Plan: Accu-Cheks q.6 hours with sliding scale. . (8) ESRD (end stage renal disease): Code(s): N18.6 - End stage renal disease Status: Chronic Assessment and Plan: Patient typically has dialysis on Monday. The patient had dialysis yesterday according to the . Nephrology has been consulted. (9) Depression with anxiety: Code(s): F41.8 - Other specified anxiety disorders Status: Acute Subjective Date/time seen: Alert and following commands he is intubated for now. 07/24/20 09:10 Exam Const: General: comfortable and no acute distress Other: Intubated Neck: Neck: supple and no JVD Resp: Auscultation: clear to auscultation bilaterally and diminished lung sounds Cardio: Rate: regular rate Rhythm: regular rhythm GI: Auscultation: normal bowel sounds Other: Soft, non tender. Non distended. Neuro: Motor exam (neuro): 5/5 motor strength present throughout and Normal motor muscle tone present throughout Extrem: Other: Right below the knee amputation. Objective Data Vital Signs Vital Signs: Vital Signs - 24 hr 07/23/20 09:33 07/23/20 10:00 07/23/20 10:43 Temperature 98.1 F Pulse Rate 80 78 79 Respiratory Rate 16 20 20 Blood Pressure 149/74 H 140/75 Pulse Oximetry 100 100 07/23/20 11:40 07/23/20 11:45 07/23/20 11:57 Temperature 96.7 F L Pulse Rate 82 75 78 Respiratory Rate 14 Blood Pressure 109/66 137/75 Pulse Oximetry 100 100 07/23/20 12:00 07/23/20 12:15 07/23/20 12:30 Temperature 97.5 F L Pulse Rate 78 85 85 Respiratory
[2020-07-24] MEDS: ATORVASTATIN 40 MG TABLET PO (09:31)
[2020-07-24] MEDS: carvediloL 25 MG TABLET PO ×2 (09:31→21:43)
[2020-07-24] MEDS: ASPIRIN 81 MG ENTERIC TABLET PO (09:31)
[2020-07-24] MEDS: FUROSEMIDE 80 MG TABLET PO ×2 (09:31→21:44)
[2020-07-24] MEDS: HEPARIN SODIUM 5,000 UNITS/ML VIAL 5000 UNITS SUB-Q ×2 (09:32→21:44)
[2020-07-24] MEDS: TICAGRELOR 90 MG TABLET PO (09:32)
[2020-07-24 11:05] LABS: Alveolar/Arterial O2 Gradient 131.7 mmHg; Fractional Inspired Oxygen 35 %; HCO3 ABG 28.1 mEq/l (22.0-26.0); Oxygen Content ABG 15.2 %vol (16.0-22.0); Oxyhemoglobin 93.8 % THb (90.0-100.0); PCO2 ABG 40.5 mmHg (35.0-45.0); PO2 ABG 70.8 mmHg (80.0-100.0); PO2 FiO2 Ratio Arterial Blood 2.02 %; Total Hemoglobin 11.5 g/dL (12.0-18.0); pH ABG 7.459 (7.350-7.450)
[2020-07-24 11:07] LABS: Arterial Blood Gas PEEP 5 cmH2O; Arterial Blood Gas Pressure Support 8 cmH2O; Arterial Blood Gas Vent Mode SPONTANEOUS; Device VENTILATOR; Modified Allen's Test Pass; Site Drawn RIGHT RADIAL
--- NOTE | 2020-07-24 12:52 | PM.CNNEP ---
Assessment and Plan Assessment and plan (1) ESRD (end stage renal disease): Code(s): N18.6 - End stage renal disease Status: Acute (2) Acute hyperkalemia: Code(s): E87.5 - Hyperkalemia Status: Acute (3) Acute and chronic respiratory failure with hypoxia: Code(s): J96.21 - Acute and chronic respiratory failure with hypoxia Status: Acute (4) Pulmonary edema: Code(s): J81.1 - Chronic pulmonary edema Status: Acute (5) Hypertension: Code(s): I10 - Essential (primary) hypertension Status: Acute (6) Diabetes mellitus: Code(s): E11.9 - Type 2 diabetes mellitus without complications Status: Acute Assessment and Plan: . Additional Plan Ish has end-stage renal disease. He received dialysis yesterday given his critical electrolyte abnormalities and his volume status and will receive dialysis today to maintain his outpatient schedule of Monday. His respiratory status appears to be doing better and his labs have stablilized as well. Unfortunately, it is not entirely clear what precipitated his presentation -- flash pulmonary edema versus hyperkalemia versus something else but this is not the first time he has presented to the hospital with this scenario. Cardiology has been consulted for further assessment given his extensive cardiac history. I will continue follow his CKD parameters and adjust his medications and dialysis prescription as deemed necessary to maintain stability in these parameters Thank you for allowing me to participate in the care this patient. History of Present Illness Reason for Consult Consult date: 07/24/20 Reason for consult: end stage renal disease Chief Complaint Chief complaint: cardiac arrest,respiratory failure History of Present Illness Narrative: The patient is a 54 year old male with past medical history as outlined below who presented to [facility] yesterday with complains of increasing shortness of breath, dyspnea, confusion. Per review of records and discussion with his , had his normal dialysis treatment yesterday but seemsed more weak and fatigued than usual followint the treatment and was noticeably confused. On the morning or admission, he became acute short of breath and was progressively getting worse so EMS was called On arrival by EMS, he was immediately placed on BiPAP due to his respiratory status and there was some concern he had ST-elevation in V1 to V3 and hence a STEMI was called in the field. By the time of his arrival to the ER, he became bradycardic and had a cardiac arrest. ACLS protocol was initiated with administration of calcium gluconate, epinephrine...etc. with ROSC fairly quickly; he was intubated at this time as well. Repeat EKG was without any ischemic changes but STAT labs were significan for significant hyperkalemia, elevated BNP, and mildly elevated troponins. Head CT was negative for an new/acute intracranial findings and his CXR was notable for significant pulmonary edema. He received medical management for his hyperkalemia and admitted to the ICU for further management. Renal consultation was requested due to his end-stage renal disease. The patient normally dialyzes on a Monday schedule at [facility] under the care of Dr. Luke Huynh. He did receive his dialysis treatment on Monday (07/22/2020) without any issues or problems and received emergent hemodialysis yesterday to correct his pulmonary edema and hyperkalemia. He is going to recieve dialysis again today later this afternoon as well. Currently, at the time of my visit, the patient appears to be doing better; he was just extubated and doing reasonably well. Review of Systems Review of Systems: Narrative: As per HPI. [facility] Past Medical History Medical History Acute blood loss anemia Anxiety Benign
[2020-07-24 13:28] LABS: Glucose Point of Care 323 (65-105)
--- NOTE | 2020-07-24 13:41 | WPDINTPN ---
Progress Note: A&P Assessment and Plan (1) Acute respiratory failure with hypoxia and hypercarbia: Code(s): J96.01 - Acute respiratory failure with hypoxia; J96.02 - Acute respiratory failure with hypercapnia Status: Acute Assessment and Plan: acute respiratory failure likely related to volume overload, pulmonary edema secondary to end-stage renal disease on dialysis and or congestive heart failure. - Patient was dialyzed on 07/23/2020 with 3 L fluid removal - will discontinue fentanyl and Versed infusion, - placed patient on SBT, patient did well and was extubated on 07/24/2020, currently on 2 L nasal cannula with good O2 sats (2) Cardiac arrest: Code(s): I46.9 - Cardiac arrest, cause unspecified Status: Acute Assessment and Plan: patient with brief cardiac arrest likely respiratory event, ROSC with 2 rounds of epi and CPR - patient is awake post cardiac arrest and follows commands, not a candidate for hypothermia protocol - appreciate evaluation and recommendation from Cardiology - - patient does have an extensive cardiac history, with recent in stent thrombosis on 06/26/2020 status post successful PCI involving extraction thrombectomy - continue Brilinta, aspirin, statin (3) Acute hyperkalemia: Code(s): E87.5 - Hyperkalemia Status: Acute Assessment and Plan: RESOLVED: patient with acute hyperkalemia with potassium level of 7.5, treated with calcium, bicarbonate, insulin and D50 and Kayexalate, patient also received albuterol nebulizer - currently being dialyzed, will repeat BMP follow-up potassium level (4) ESRD (end stage renal disease): Code(s): N18.6 - End stage renal disease Status: Acute Assessment and Plan: patient with end-stage renal disease on hemodialysis, Monday and Monday - patient did get dialyzed on 07/22/2020 according this - appreciate Nephrology evaluation, further dialysis per Nephrology (5) CHF (congestive heart failure): Qualifiers: Heart failure type: combined systolic and diastolic Heart failure chronicity: acute on chronic Qualified Code(s): I50.43 - Acute on chronic combined systolic (congestive) and diastolic (congestive) heart failure Code(s): I50.9 - Heart failure, unspecified Status: Acute Assessment and Plan: cardiomyopathy and congestive heart failure systolic and diastolic - Will hold carvedilol, furosemide, losartan echocardiogram 06/26/2020: showed EF of 25 30%, grade 2 diastolic dysfunction, severe aortic valve sclerosis, mild mitral valve regurg, mild pulmonary hypertension with RVSP of 43 mmHg. (6) DVT prophylaxis: Code(s): Z29.9 - Encounter for prophylactic measures, unspecified Status: Acute Assessment and Plan: heparin subcu Additional Plan Discussed with the patient and his and updated them with his condition and plan of care. They aware that he will be getting another round of dialysis today code status: Full code critical care time spent: 46 minutes Due to a high probability of clinically significant, life threatening deterioration, the patient required my highest level of preparedness to intervene emergently and I personally spent this critical care time directly and personally managing the patient. This critical care time included obtaining a history; examining the patient; pulse oximetry; ordering and review of studies; arranging urgent treatment with development of a management plan; evaluation of patient's response to treatment; frequent reassessment; and discussions with other providers. It was exclusive of separately billable procedures and treating other patients and teaching time. Please see Assessment and Plan section and the rest of the note for further information on patient assessment and treatment Subjective Date/time seen: 07/24/20 13:41 Reason for consult: acute respiratory failure, cardiac arrest, hy
--- NOTE | 2020-07-24 13:58 | PM.PNCARD ---
Progress Note: A&P Assessment and Plan (1) Cardiac arrest: Code(s): I46.9 - Cardiac arrest, cause unspecified Status: Acute Assessment and Plan: In setting of severe hyperkalemia, acute pulmonary edema and respiratory failure, bradycardic arrest not secondary to acute myocardial infarction. (2) Acute respiratory failure with hypoxia and hypercarbia: Code(s): J96.01 - Acute respiratory failure with hypoxia; J96.02 - Acute respiratory failure with hypercapnia Status: Acute Assessment and Plan: Secondary to pulmonary edema from volume overload suspect inadequate hemodialysis and hypertensive urgency. Hemodialysis for volume management. Extubated. Doing well in this regard. Hemodialysis planned once again today. (3) Pulmonary edema: Code(s): J81.1 - Chronic pulmonary edema Status: Acute Assessment and Plan: As above. Lasix 80 mg p.o. b.i.d.. (4) Cardiomyopathy: Code(s): I42.9 - Cardiomyopathy, unspecified Status: Acute Assessment and Plan: Severe LV dysfunction EF previously documented 25-30%. As above, volume management per hemodialysis. Continue supportive cardiovascular medical therapy. (5) Coronary artery disease: Qualifiers: Coronary Disease-Associated Artery/Lesion type: [place] artery [place] vs. transplanted heart: [place] heart Associated angina: without angina Qualified Code(s): I25.10 - Atherosclerotic heart disease of [place] coronary artery without angina pectoris Code(s): I25.10 - Atherosclerotic heart disease of [place] coronary artery without angina pectoris Status: Acute Assessment and Plan: Minimal troponin elevation given his presentation. No evidence for acute myocardial infarction/ ACS as primary explanation for patient's presentation and cardiac arrest. Must continue aspirin, Brilinta without interruption due to stent thrombosis LAD in setting of ST-elevation [place] June 2020. Continue statin therapy. Stop Rosuvastatin, continue atorvastatin 40 mg daily which he was taking at discharge in June. (6) Hypertensive urgency: Code(s): I16.0 - Hypertensive urgency Status: Acute Assessment and Plan: as above, blood pressure very high with evidence of pulmonary edema. BP much better controlled. (7) Acute hyperkalemia: Code(s): E87.5 - Hyperkalemia Status: Acute Assessment and Plan: resolved. Hyperkalemic 7.5 at presentation status post treatment. Electrolyte management per hemodialysis as well. Potassium 4.2 this morning. patient and admit he had been eating a lot of potassium rich foods and was taking a no salt substitute the past couple of weeks. They wish to speak with a dietitian. (8) End stage renal disease: Code(s): N18.6 - End stage renal disease Status: Acute Assessment and Plan: Hemodialysis Per Nephrology. Subjective Date/time seen: Date of service: 07/24/20 13:58 Follow-up visit for respiratory arrest, hyperkalemia at bedside. Patient states he feels much better but complains of chest pain from CPR in the ER at presentation. Denies shortness of breath. states his potassium was noted to be high prior to dialysis before admission. He had been drinking a lot of chocolate milk at home, frequently missing his evening medications, eating more potassium rich foods including cheese, dairy including others. They also admit to taking a no salt substitute in the past few weeks. Apparently, per his , patient eats and drinks what he wants and then chases his blood sugars with insulin. Review of Systems Review of Systems: All systems reviewed & are unremarkable except as noted in HPI and below Constitutional: Constitutional: Reports as per HPI, Reports no additional constitutional complaints, Denies fatigue and Reports weakness Eyes: Eyes: Reports as per HPI and Reports no additional eye complaints ENT: R
[2020-07-24] MEDS: ACETAMINOPHEN 500 MG TABLET 1000 MG (16:57)
[2020-07-24 17:47] LABS: Glucose Point of Care 456 (65-105)
[2020-07-24] MEDS: ACETAMINOPHEN 500 MG TABLET 1000 MG PO (21:33)
--- NOTE | 2020-07-24 22:41 | PC.NURSE ---
PATIENT TRANSFERRED TO [address] [place] [address] AT 2230. REPORT GIVEN TO ESTHER HEAD. PATIENT TRANSPORTED VIA W/C.
--- NOTE | 2020-07-24 22:45 | PC.NURSE ---
This patient, Ish Corley, was received from [ICU 7 ] on 07/24/20 at 2225. Personal belongings list checked and signed. Patient/family oriented to unit policies and routines
[2020-07-24] MEDS: MELATONIN 3 MG TABLET PO (23:17)
[2020-07-24 23:25] LABS: Glucose Point of Care 231 (65-105)
[2020-07-25] VITALS (11 sets, daily range): BP systolic 102–145; BP diastolic 58–65; PULSE 89–101; RESP 16; TEMP 36.3–36.8; O2SAT 97
[2020-07-25 06:02] LABS: Glucose Point of Care 457 (65-105)
[2020-07-25 06:09] LABS: Basophils Absolute Auto 0.1 K/mm3 (0.0-0.1); Basophils Percent Auto 0.4 % (0.2-1.2); Eosinophils Absolute Auto 0.1 K/mm3 (0-0.3); Eosinophils Percent Auto 0.7 % (0-4.4); Hematocrit 32.6 % (42.0-52.0); Hemoglobin 10.1 g/dL (14.0-18.0); Immature Granulocyte Absolute 0.04 K/mm3 (0.00-0.031); Immature Granulocyte Percent A 0.3 % (0-0.5); Lymphocytes Absolute Auto 1.52 K/mm3 (0.9-3.2); Lymphocytes Percent Auto 13.1 % (18.3-44.2); Mean Corpuscular Hemoglobin 30.2 pg (26-34); Mean Corpuscular Volume 97.6 fl (80-100); Mean Platelet Volume 10.1 fl (7.4-10.4); Monocytes Absolute Auto 1.3 K/mm3 (0.1-0.6); Monocytes Percent Auto 11.5 % (2.6-8.5); Neutrophils Absolute Auto 8.6 K/mm3 (1.3-6.7); Platelet Count Result 405 k/mm3 (150-375); Red Blood Count 3.34 M/mm3 (4.6-6.20); Red Cell Distribution Width 16.2 % (11.5-14.5); White Blood Count 11.6 K/mm3 (4.5-10.0)
[2020-07-25 06:21] LABS: Anion Gap 19 mmol/L (8-16); Blood Urea Nitrogen 30 mg/dL (9-20); Calcium 9.5 mg/dL (8.4-10.2); Carbon Dioxide 23 mmol/L (22-30); Chloride 90 mmol/L (98-107); Estimated CRCL calculation 13 ml/min; Estimated Glomerular Filt Rate 12; Glucose 445 mg/dL (75-110); Magnesium 2.2 mg/dL (1.6-2.3); Phosphorus 6.6 mg/dL (2.5-4.5); Potassium 4.5 mmol/L (3.4-5.0); Sodium 132 mmol/L (137-145)
[2020-07-25] MEDS: INSULIN ASPART (*BKC) 100 UNITS/ML 9 UNITS SUB-Q (06:25)
[2020-07-25] MEDS: INSULIN ASPART (*BKC) 100 UNITS/ML SUB-Q ×3 (07:36→23:28)
[2020-07-25 08:31] LABS: Glucose Point of Care 382 (65-105)
[2020-07-25] MEDS: LOSARTAN POTASSIUM 100 MG TABLET PO (09:08)
[2020-07-25] MEDS: FUROSEMIDE 80 MG TABLET PO ×2 (09:08→16:14)
[2020-07-25] MEDS: carvediloL 25 MG TABLET PO ×2 (09:08→16:14)
[2020-07-25] MEDS: ASPIRIN 81 MG ENTERIC TABLET PO (09:08)
[2020-07-25] MEDS: HEPARIN SODIUM 5,000 UNITS/ML VIAL 5000 UNITS SUB-Q ×2 (09:09→20:41)
[2020-07-25] MEDS: ATORVASTATIN 40 MG TABLET PO (09:09)
[2020-07-25] MEDS: TICAGRELOR 90 MG TABLET PO (09:09)
[2020-07-25] MEDS: INSULIN GLARGINE (*BKC) 100 UNITS/ML 12 UNITS SUB-Q (09:11)
[2020-07-25 09:39] LABS: Glucose Point of Care 392 (65-105)
[2020-07-25] MEDS: INSULIN ASPART (*BKC) 100 UNITS/ML 10 UNITS SUB-Q ×3 (10:09→17:00)
[2020-07-25] MEDS: CHOLECALCIFEROL 1,000 UNITS TABLET 4000 UNITS PO (10:11)
[2020-07-25] MEDS: SERTRALINE HCL 25 MG TABLET PO (10:11)
[2020-07-25] MEDS: VITAMIN B CMPLX/VIT C/FOLIC AC 1 CAPSULE 1 CAP PO (10:11)
[2020-07-25] MEDS: PANTOPRAZOLE 40 MG TABLET PO ×2 (10:11→20:40)
[2020-07-25] MEDS: NICOTINE (*PBKC) 21 MG PATCH 1 PATCH TRANSDERM (10:11)
[2020-07-25 12:16] LABS: Glucose Point of Care 245 (65-105)
[2020-07-25 12:16] LABS: Glucose Point of Care 375 (65-105)
--- NOTE | 2020-07-25 15:06 | PM.PNNEP ---
Progress Note: A&P Assessment and Plan (1) ESRD (end stage renal disease): Code(s): N18.6 - End stage renal disease Status: Acute Assessment and Plan: HD yesterday and continue M/W/F dialysis schedule follow electrolytes, volume status, and clearance (2) Acute hyperkalemia: Code(s): E87.5 - Hyperkalemia Status: Acute Assessment and Plan: resolved treated with medical management and urgent hemodialysis on day of admission follow trend (3) Acute and chronic respiratory failure with hypoxia: Code(s): J96.21 - Acute and chronic respiratory failure with hypoxia Status: Acute Assessment and Plan: slowly improving extubated/off ventilator wean oxygen as tolerated secondary to pulmonary edema (4) Pulmonary edema: Code(s): J81.1 - Chronic pulmonary edema Status: Acute Assessment and Plan: improved with aggressive ultrafiltration/fluid removal with dialysis follow respiratory status closely (5) Hypertension: Code(s): I10 - Essential (primary) hypertension Status: Acute Assessment and Plan: reasonable control with current therapy follow trend of hemodynamics (6) Diabetes mellitus: Code(s): E11.9 - Type 2 diabetes mellitus without complications Status: Acute Assessment and Plan: follow accuchecks on Lantus and SSI Will continue to follow. Subjective Date/time seen: 07/25/20 15:06 Only recevied a partial dialysis treatment yesterday; ended treatment 45 minutes early due to pain all over -- transferred out of ICU; respiratory status stable; no events overnight or this AM. Exam Narrative: Exam Narrative: General: WD/WN male in NAD Heart: normal S1 and S2; no rub Lungs: decreased at the bases Abdomen: soft, nontender, nondistended, positive bowel sounds Extremities: no cyanosis or clubbing; no edema Skin: warm and dry Objective Data Vital Signs Vital Signs: Vital Signs Temp Pulse Resp BP Pulse Ox 07/25/20 09:08 98 07/25/20 08:00 101 H 07/25/20 06:00 36.8 C 98 16 145/65 H 97 07/25/20 04:00 98 07/25/20 00:00 100 07/24/20 22:39 108 H 07/24/20 22:00 36.8 C 108 H 16 133/66 100 07/24/20 21:43 106 H 07/24/20 21:37 99 07/24/20 21:01 36.5 C 18 114/64 07/24/20 21:00 107 H 106/74 07/24/20 20:45 112 H 86/47 L 07/24/20 20:15 400 H 103/69 07/24/20 20:00 36.4 C 111 H 19 114/65 07/24/20 19:45 112 H 102/51 L 07/24/20 19:30 123 H 125/71 07/24/20 19:00 126 H 149/67 H 07/24/20 18:45 121 H 147/75 H 07/24/20 18:30 111 H 157/72 H 07/24/20 18:15 111 H 147/68 H 07/24/20 18:04 110 H 156/66 H 07/24/20 18:00 108 H 22 H 147/68 H 07/24/20 17:45 37.4 C 110 H 19 126/60 07/24/20 16:00 111 H 20 157/71 H 97 Intake/Output Intake/Output: Intake & Output 07/22/20 07/23/20 07/24/20 07/25/20 23:59 23:59 23:59 23:59 Intake Total 126 621.9 990 Output Total 3375 2254 Balance -3249 -1632.1 990 Meds/Results Medications: Active Medications Generic Name Dose Route Start Last Admin Trade Name Freq PRN Reason Stop Dose Admin Acetaminophen 1,000 mg 07/24/20 17:00 07/24/20 21:33 Tylenol Tablet PO 1,000 mg Q6H PRN Administration Mild Pain (1-3) or Fever Hydrocodone Bitart/Acetaminophen 1 tab 07/25/20 10:20 07/25/20 10:54 [place] 5-325 Mg PO 1 tab Q6H PRN Administration Pain Rated 4-10 Aspirin 81 mg 07/23/20 09:00 07/25/20 09:08 Aspirin Ec PO 81 mg DAILY MARTHA Administration Atorvastatin Calcium 40 mg 07/24/20 09:00 07/25/20 09:09 Lipitor PO 40 mg DAILY MARTHA Administration Carvedilol 25 mg 07/24/20 09:00 07/25/20 09:08 Coreg PO 25 mg BID MARTHA Administration Dextrose 12.5 gm 07/24/20 18:01 Dextrose 50% Syringe IV PUSH PRN PRN Hypoglycemia Protocol Furosemide 80 m
--- NOTE | 2020-07-25 15:44 | PM.IMPN ---
Progress Note: A&P Assessment and Plan (1) Cardiac arrest: Code(s): I46.9 - Cardiac arrest, cause unspecified Status: Acute Assessment and Plan: Patient was coded and intubated placed in ICU. Emergent dialysis was started. Most likely this resulted from his high potassium level. also due to fluid overload. Doing better now, was extubated yesterday. (2) Acute respiratory failure with hypoxia and hypercarbia: Code(s): J96.01 - Acute respiratory failure with hypoxia; J96.02 - Acute respiratory failure with hypercapnia Status: Acute Assessment and Plan: Resolved, he was extubated. (3) Acute hyperkalemia: Code(s): E87.5 - Hyperkalemia Status: Acute Assessment and Plan: Treated in the emergency room with calcium carbonate, bicarbonate, insulin D50, and Kayexalate as well as albuterol nebulizer treatments. He is currently being dialysis. K wnl now.. (4) CHF (congestive heart failure): Qualifiers: Heart failure type: combined systolic and diastolic Heart failure chronicity: acute on chronic Qualified Code(s): I50.43 - Acute on chronic combined systolic (congestive) and diastolic (congestive) heart failure Code(s): I50.9 - Heart failure, unspecified Status: Acute Assessment and Plan: On coreg and lasix and losartan. Patient has a EF of 25-30% with a grade 2 diastolic dysfunction. Currently compensated. (5) Hypertension: Code(s): I10 - Essential (primary) hypertension Status: Acute Assessment and Plan: Back on his home medications (6) CAD (coronary artery disease): Code(s): I25.10 - Atherosclerotic heart disease of [place] coronary artery without angina pectoris Status: Acute Assessment and Plan: Resume her ASA, brilinta and statin. (7) Diabetes mellitus: Code(s): E11.9 - Type 2 diabetes mellitus without complications Status: Acute Assessment and Plan: Uncontrolled, back on long acting insulin 10 units q pm and 12 units qam, 10 units of short acting with meals and correctional scale. We will get a hemoglobin A1c. (8) ESRD (end stage renal disease): Code(s): N18.6 - End stage renal disease Status: Chronic Assessment and Plan: Patient typically has dialysis on Monday. Nephrology has been consulted. (9) Depression with anxiety: Code(s): F41.8 - Other specified anxiety disorders Status: Acute Subjective Date/time seen: C/o sharp chest pain after CPR. 07/25/20 15:44 Exam Const: General: comfortable and no acute distress Neck: Neck: supple and no JVD Resp: Auscultation: clear to auscultation bilaterally and diminished lung sounds Cardio: Rate: regular rate Rhythm: regular rhythm GI: Auscultation: normal bowel sounds Other: Soft, non tender. Non distended. Neuro: Motor exam (neuro): 5/5 motor strength present throughout and Normal motor muscle tone present throughout Extrem: Other: Right below the knee amputation. Objective Data Vital Signs Vital Signs: Vital Signs - 24 hr 07/24/20 16:00 07/24/20 17:45 07/24/20 18:00 Temperature 99.4 F Pulse Rate 111 H 110 H 108 H Respiratory Rate 20 19 22 H Blood Pressure 157/71 H 126/60 147/68 H Pulse Oximetry 97 07/24/20 18:04 07/24/20 18:15 07/24/20 18:30 Temperature Pulse Rate 110 H 111 H 111 H Respiratory Rate Blood Pressure 156/66 H 147/68 H 157/72 H Pulse Oximetry 07/24/20 18:45 07/24/20 19:00 07/24/20 19:30 Temperature Pulse Rate 121 H 126 H 123 H Respiratory Rate Blood Pressure 147/75 H 149/67 H 125/71 Pulse Oximetry 07/24/20 19:45 07/24/20 20:00 07/24/20 20:15 Temperature 97.6 F Pulse Rate 112 H 111 H 400 H Respiratory Rate 19 Blood Pressure 102/51 L 114/65 103/69 Pulse Oximetry 07/24/20 20:45 07/24/20 21:00 07/24/20 21:01 Temperature 97.7 F Pulse Rate 112 H 107 H Respi
[2020-07-25] MEDS: LIDOCAINE 5% PATCH 1 PATCH TRANSDERM (16:02)
[2020-07-25 17:19] LABS: Glucose Point of Care 151 (65-105)
[2020-07-25] MEDS: MELATONIN 3 MG TABLET PO (20:40)
[2020-07-25] MEDS: INSULIN GLARGINE (*BKC) 100 UNITS/ML 10 UNITS SUB-Q (20:45)
[2020-07-25 21:10] LABS: Glucose Point of Care 201 (65-105)
[2020-07-25 23:33] LABS: Glucose Point of Care 334 (65-105)
[2020-07-26] VITALS: BP 140/66; PULSE 92; PULSE 93; RESP 18; TEMP 36.9; O2SAT 95
[2020-07-26 04:00] VITALS: PULSE 93
[2020-07-26] MEDS: INSULIN ASPART (*BKC) 100 UNITS/ML SUB-Q ×2 (05:26→10:26)
[2020-07-26 05:50] LABS: Glucose Point of Care 369 (65-105)
[2020-07-26 05:53] VITALS: BP 153/66; PULSE 93; RESP 18; TEMP 36.9; O2SAT 97
[2020-07-26 06:12] LABS: Basophils Percent Auto 0.4 % (0.2-1.2); Eosinophils Absolute Auto 0.4 K/mm3 (0-0.3); Eosinophils Percent Auto 3.4 % (0-4.4); Hematocrit 32.5 % (42.0-52.0); Hemoglobin 10.4 g/dL (14.0-18.0); Immature Granulocyte Absolute 0.05 K/mm3 (0.00-0.031); Immature Granulocyte Percent A 0.5 % (0-0.5); Lymphocytes Absolute Auto 2.05 K/mm3 (0.9-3.2); Lymphocytes Percent Auto 19.1 % (18.3-44.2); Mean Corpuscular Hemoglobin 30.9 pg (26-34); Mean Corpuscular Volume 96.4 fl (80-100); Mean Platelet Volume 10.3 fl (7.4-10.4); Monocytes Absolute Auto 1.1 K/mm3 (0.1-0.6); Monocytes Percent Auto 10.1 % (2.6-8.5); Neutrophils Absolute Auto 7.1 K/mm3 (1.3-6.7); Neutrophils Percent Auto 66.5 % (45.5-73.1); Platelet Count Result 404 k/mm3 (150-375); Red Blood Count 3.37 M/mm3 (4.6-6.20); Red Cell Distribution Width 15.9 % (11.5-14.5); White Blood Count 10.7 K/mm3 (4.5-10.0)
[2020-07-26 06:41] LABS: Anion Gap 20 mmol/L (8-16); Blood Urea Nitrogen 58 mg/dL (9-20); Calcium 9.5 mg/dL (8.4-10.2); Carbon Dioxide 22 mmol/L (22-30); Chloride 87 mmol/L (98-107); Estimated CRCL calculation 10 ml/min; Estimated Glomerular Filt Rate 8; Glucose 381 mg/dL (75-110); Potassium 4.6 mmol/L (3.4-5.0); Sodium 129 mmol/L (137-145)
[2020-07-26 08:00] VITALS: BP 132/62; PULSE 80; PULSE 96; RESP 20; TEMP 36.7; O2SAT 100
[2020-07-26] MEDS: ASPIRIN 81 MG ENTERIC TABLET PO (08:25)
[2020-07-26 08:26] VITALS: PULSE 86
[2020-07-26] MEDS: carvediloL 25 MG TABLET PO (08:26)
[2020-07-26] MEDS: CHOLECALCIFEROL 1,000 UNITS TABLET 4000 UNITS PO (08:26)
[2020-07-26] MEDS: ATORVASTATIN 40 MG TABLET PO (08:26)
[2020-07-26 08:27] LABS: Glucose Point of Care 283 (65-105)
[2020-07-26] MEDS: FUROSEMIDE 80 MG TABLET PO (08:27)
[2020-07-26] MEDS: LIDOCAINE 5% PATCH 1 PATCH TRANSDERM (08:28)
[2020-07-26] MEDS: NICOTINE (*PBKC) 21 MG PATCH 1 PATCH TRANSDERM (08:28)
[2020-07-26] MEDS: LOSARTAN POTASSIUM 100 MG TABLET PO (08:28)
[2020-07-26] MEDS: SERTRALINE HCL 25 MG TABLET PO (08:29)
[2020-07-26] MEDS: TICAGRELOR 90 MG TABLET PO (08:29)
[2020-07-26] MEDS: PANTOPRAZOLE 40 MG TABLET PO (08:29)
[2020-07-26] MEDS: VITAMIN B CMPLX/VIT C/FOLIC AC 1 CAPSULE 1 CAP PO (08:29)
[2020-07-26] MEDS: INSULIN GLARGINE (*BKC) 100 UNITS/ML 12 UNITS SUB-Q (08:32)
[2020-07-26] MEDS: INSULIN ASPART (*BKC) 100 UNITS/ML 10 UNITS SUB-Q (08:35)
[2020-07-26] MEDS: HEPARIN SODIUM 5,000 UNITS/ML VIAL 5000 UNITS SUB-Q (10:25)
--- NOTE | 2020-07-26 11:31 | PC.NURSE ---
Called Dr. Martino in regards to the patient being discharged today. Per Dr. Martino he is okay that the patient be discharged home at this time. Medically he is stable and main goal was pain control. Per Dr. Martino he can follow up tomorrow with Dr. Huynh for his routine visits and his scheduled hemodialysis.
[2020-07-26] MEDS: MORPHINE SULFATE 2 MG/ML INJ IV PUSH (12:05)
[2020-07-26 12:23] LABS: Glucose Point of Care 96 (65-105)
--- NOTE | 2020-07-26 17:09 | PM.DS ---
DS: Admitting Diagnosis Admitting Diagnosis Admitting Diagnosis: cardiac arrest,respiratory failure DS: Discharge Diagnosis Discharge Diagnosis (1) Cardiac arrest: Code(s): I46.9 - Cardiac arrest, cause unspecified Status: Acute (2) Respiratory failure: Code(s): J96.90 - Respiratory failure, unspecified, unspecified whether with hypoxia or hypercapnia Status: Acute (3) Acute hyperkalemia: Code(s): E87.5 - Hyperkalemia Status: Acute (4) ESRD (end stage renal disease): Code(s): N18.6 - End stage renal disease Status: Acute (5) Acute respiratory failure: Code(s): J96.00 - Acute respiratory failure, unspecified whether with hypoxia or hypercapnia Status: Acute (6) Diabetes mellitus: Code(s): E11.9 - Type 2 diabetes mellitus without complications Status: Acute DS: Summary Hospital Course Reason for hospitalization: Cardiac arrest Hospital Course: 54 yo that presented to the hospital feeling very weak and then had a cardiac arrest in the ER, he was intubated, given epinephrine and calcium chloride and regain pulse. His cardiac arrest was likely due to hyperkalemia he had a K of 7.5. He was seen by cardiology, it seems that his cardiac arrest was not due to ACS but due to hyperkalemia. He was successfully extubated and transferred to the floor, his potassium is wnl now. His glucose was hard to manage in the hospital, he was started on a fixed dose of short acting insulin and achieved a better control with 10 units with meals plus correctional scale. The patient is hesitant about doing this at home and decided to follow up with his PCP to see if further adjustments are needed for his insulin. He should continue his same long acting insulin dose at home. The patient was also found to have a ninth healing rib fracture and a 10 th rib fracture after the chest compressions. No pneumothorax. Status at Discharge Cognitive/behavioral status at discharge: Alert and oriented Functional status at discharge: independent ambulation Overall status at discharge: patient is back to baseline Time Spent with Patient Time attestation: Total time spent providing and/or coordinating discharge services: Time spent: Greater than 30 minutes Exam Const: General: comfortable and no acute distress Neck: Neck: supple and no JVD Resp: Auscultation: clear to auscultation bilaterally and diminished lung sounds Cardio: Rate: regular rate Rhythm: regular rhythm GI: Auscultation: normal bowel sounds Other: Soft, non tender. Non distended. Neuro: Motor exam (neuro): 5/5 motor strength present throughout and Normal motor muscle tone present throughout Extrem: Other: Right below the knee amputation. DS: Data Data Completed and Pending Labs on day of discharge: Labs from last 24 hours 07/26/20 07/26/20 07/26/20 12:09 08:24 05:43 WBC RBC Hgb Hct MCV MCH MCHC RDW Plt Count MPV Immature Gran % (Auto) Neut % (Auto) Lymph % (Auto) [place] % (Auto) Eos % (Auto) Baso % (Auto) Lymph # (Auto) [place] # (Auto) Eos # (Auto) Baso # (Auto) Abs Immat Gran (auto) Absolute Neuts (auto) Absolute Nucleated RBC Nucleated RBC % Sodium 129 L Potassium 4.6 Chloride 87 L Carbon Dioxide 22 Anion Gap 20 H BUN 58 H D Creatinine 7.10 H Estim Creat Clear Calc 10 Estimated GFR 8 L Glucose 381 H POC Capillary Glucose 96 283 H Calcium 9.5 07/26/20 07/26/20 07/25/20 05:43 05:23 23:26 WBC 10.7 H RBC 3.37 L Hgb 10.4 L Hct 32.5 L MCV 96.4 MCH 30.9 MCHC 32.0 RDW 15.9 H Plt Count 404 H MPV 10.3 Immature Gran % (Auto) 0.5 Neut % (Auto) 66.5 Lymph % (Auto) 19.1 [place] % (Auto) 10.1 H Eos % (Auto) 3.4 Baso % (Auto) 0.4 Lymph # (Auto) 2.05 [place] # (Auto) 1.1 H Eos # (Auto) 0.4 H Baso # (Auto) 0.0 Abs Immat Gran (auto)
== END 2020-07-26 14:35 | disposition home or self-care (01) | DRG 291 ==
LOC: ANHED 09:15 → ANHICU 07-24 03:42 → ANH2MED 07-26 00:26 → ANHICU 07-28 17:08
PROVIDERS: Emergency Medicine; Internal Medicine; Nurse Practitioner; Admitting Provider Internal Medicine; Emergency Provider Emergency Medicine; PCP Emergency Medicine; Visit Provider Hospitalist
DX: I13.2 Hypertensive heart and chronic kidney disease with heart failure and with stage 5 chronic kidney disease, or end stage renal disease (principal); J96.02 Acute respiratory failure with hypercapnia; I50.43 Acute on chronic combined systolic (congestive) and diastolic (congestive) heart failure; I46.8 Cardiac arrest due to other underlying condition; N18.6 End stage renal disease; J96.01 Acute respiratory failure with hypoxia; S22.41XA Multiple fractures of ribs, right side, initial encounter for closed fracture; E87.5 Hyperkalemia; I25.10 Atherosclerotic heart disease of native coronary artery without angina pectoris; F41.8 Other specified anxiety disorders; N25.0 Renal osteodystrophy; K21.9 Gastro-esophageal reflux disease without esophagitis; E55.9 Vitamin D deficiency, unspecified; N40.0 Benign prostatic hyperplasia without lower urinary tract symptoms; E10.319 Type 1 diabetes mellitus with unspecified diabetic retinopathy without macular edema; E10.21 Type 1 diabetes mellitus with diabetic nephropathy; E10.42 Type 1 diabetes mellitus with diabetic polyneuropathy; I16.0 Hypertensive urgency; F17.210 Nicotine dependence, cigarettes, uncomplicated; E10.22 Type 1 diabetes mellitus with diabetic chronic kidney disease; Z99.2 Dependence on renal dialysis; Z89.511 Acquired absence of right leg below knee; I25.2 Old myocardial infarction; Z95.5 Presence of coronary angioplasty implant and graft; Z98.42 Cataract extraction status, left eye; Z98.41 Cataract extraction status, right eye; X58.XXXA Exposure to other specified factors, initial encounter
CPT/HCPCS: 31500; 36415; 36600; 51702; 70450; 71045; 74176; 80048; 80053; 82375; 82805; 82948; 83036; 83050; 83690; 83735; 83880; 84100; 84443; 84484; 85025; 85610; 85730; 93005; 94003; 94640; 96374; 96375; 99284; 99291; A9270; G0257; J0171; J0330; J1644; J1815; J2250; J2270; J3010; J7030

== ENCOUNTER 2020-07-27 17:19 | Emergency (ER) | payer MEDICARE, MEDICAID, SELFPAY ==
[2020-07-27 17:31] VITALS: BP 113/60; PULSE 90; RESP 16; TEMP 36.5; O2SAT 100
--- NOTE | 2020-07-27 17:37 | ECG_ITS ---
Measurements Intervals [place] Rate: 90 P: 49 LA: 154 QRS: 33 QRSD: 81 T: 120 QT: 387 QTc: 474 Interpretive Statements SINUS RHYTHM POSSIBLE LEFT ATRIAL ENLARGEMENT LEFT VENTRICULAR HYPERTROPHY WITH ST-T CHANGE BORDERLINE R WAVE PROGRESSION, ANTERIOR LEADS BORDERLINE ECG Electronically Signed On 07-27-2020 19:43:31 CDT by Edmond Elias D.O.
[2020-07-27 18:04] LABS: Basophils Percent Auto 0.4 % (0.2-1.2); Eosinophils Absolute Auto 0.2 K/mm3 (0-0.3); Eosinophils Percent Auto 2.5 % (0-4.4); Immature Granulocyte Absolute 0.04 K/mm3 (0.00-0.031); Immature Granulocyte Percent A 0.4 % (0-0.5); Lymphocytes Absolute Auto 0.64 K/mm3 (0.9-3.2); Lymphocytes Percent Auto 6.8 % (18.3-44.2); Mean Corpuscular HGB Conc 32.3 g/dl (32-36); Mean Corpuscular Hemoglobin 30.6 pg (26-34); Mean Corpuscular Volume 94.8 fl (80-100); Monocytes Absolute Auto 0.7 K/mm3 (0.1-0.6); Monocytes Percent Auto 7.3 % (2.6-8.5); Neutrophils Absolute Auto 7.8 K/mm3 (1.3-6.7); Neutrophils Percent Auto 82.6 % (45.5-73.1); Platelet Count Result 418 k/mm3 (150-375); Red Blood Count 3.27 M/mm3 (4.6-6.20); White Blood Count 9.5 K/mm3 (4.5-10.0)
[2020-07-27 18:18] LABS: Anion Gap 14 mmol/L (8-16); Blood Urea Nitrogen 29 mg/dL (9-20); Calcium 9.1 mg/dL (8.4-10.2); Carbon Dioxide 27 mmol/L (22-30); Chloride 92 mmol/L (98-107); Estimated CRCL calculation 14 ml/min; Estimated Glomerular Filt Rate 13; Glucose 261 mg/dL (75-110); Potassium 4.2 mmol/L (3.4-5.0); Sodium 133 mmol/L (137-145)
--- NOTE | 2020-07-27 18:54 | PC.NURSE ---
Pt brought to intake desk my security. Pt states that he is feel 100% better. States that he lives close and if he started to feel worse he will return but for now he is going to leave. Pt insisted he will walk to the car in the parking lot. Pt ambulated with cane to parking lot.
== END 2020-07-27 18:45 | disposition left against medical advice (07) ==
PROVIDERS: Emergency Provider Emergency Medicine; PCP Emergency Medicine
DX: R68.89 Other general symptoms and signs (principal); I51.7 Cardiomegaly
CPT/HCPCS: 36415; 80048; 85025; 93005; 99199

== ENCOUNTER 2020-07-31 17:40 | Emergency (ER) | payer MEDICARE, MEDICAID, SELFPAY ==
--- NOTE | 2020-07-31 18:14 | PC.NURSE ---
pt came to triage desk stating that he does not want to wait for ed room at this time and will return to ed if he begins to feel worse. pt encouraged to stay.
== END 2020-07-31 18:14 | disposition left against medical advice (07) ==
PROVIDERS: PCP Emergency Medicine
DX: Z53.21 Procedure and treatment not carried out due to patient leaving prior to being seen by health care provider (principal)
CPT/HCPCS: 99199

== ENCOUNTER 2020-08-12 08:59 | Inpatient (IN) | payer MEDICARE, MEDICAID, SELFPAY ==
[2020-08-12] VITALS (59 sets, daily range): BP systolic 80–252; BP diastolic 23–108; PULSE 82–123; RESP 20–35; TEMP 35.5–37.3; O2SAT 90–100; BMI 24.0
--- NOTE | 2020-08-12 | ECG_ITS ---
Measurements Intervals [place] Rate: 113 P: [place]: 0 QRS: 71 QRSD: 92 T: 80 QT: 338 QTc: 465 Interpretive Statements SINUS TACHYCARDIA BASELINE ARTIFACT- I, II, III, AVR, AVL, AVF, V1-V6 ABNORMAL ECG Electronically Signed On 08-12-2020 16:14:27 CDT by Edmond Elias D.O.
--- NOTE | ~2020-08-12 | XR_ITS ---
EXAMINATION: XR chest 1V portable EXAM DATE: 08/14/2020 06:32 INDICATION: Respiratory failure. TECHNIQUE: Portable AP frontal chest x-ray was obtained. Comparison is made to prior examination from earlier same date. FINDINGS: There is mild to moderate bilateral perihilar acute airspace disease. There are no sizable pleural e ffusions. There is no pneumothorax suspected. Cardiomediastinal silhouette is normal. Coronary ar meche stent. The bones and soft tissues are unremarkable. Compared to last several days, continued i nterval improvement in the acute airspace disease. IMPRESSION: 1. Continued improvement in bilateral perihilar edema and/or pneumonia. 2. Extubated. Reviewed, dictated and finalized at location A.
--- NOTE | ~2020-08-12 | XR_ITS ---
EXAMINATION: XR chest 1V portable EXAM DATE: 08/13/2020 05:57 INDICATION: Respiratory failure. TECHNIQUE: Portable AP frontal chest x-ray was obtained. Comparison is made to prior examination from earlier same date. FINDINGS: Awa difficult to confirm in position, but tube appears adequately positioned about 3 cm above it. There is a nasogastric tube seen with tip collimated off the study, but below the left hem idiaphragm. There is extensive right, moderate left perihilar acute airspace disease. There are no sizable pleur al effusions. There is no pneumothorax suspected. Cardiomediastinal silhouette is normal. Coronar y artery stent. The bones and soft tissues are unremarkable. Compared to yesterday, there may be sl ight interval improvement in the perihilar airspace disease. IMPRESSION: 1. Tubes in position. 2. Bilateral perihilar distribution acute edema or pneumonia, mild improvement. Reviewed, dictated and finalized at location A. IMPRESSION: 1. Tubes in position. 2. Bilateral perihilar distribution acute edema or pneumonia, mild improvement .
--- NOTE | ~2020-08-12 | XR_ITS ---
XR abdomen NG/feed tube insert DATE: 08/12/2020 16:02 INDICATION: NG tube placement TECHNIQUE: Portable supine AP view COMPARISON: 07/23/2020 KUB FINDINGS: The orogastric tube tip overlies the gastric fundus, the proximal side-port approximately 2 cm distal to the diaphragmatic hiatus. Extensive bilateral renal artery calcifications are noted incidentally. There are bilateral pulmonary infiltrates Marilee B-lines and prominence of the minor fissure suggesti ng pulmonary interstitial and subpleural edema. Battery pack and electrodes overlie the lumbar spine. Lumbar spine hardware. IMPRESSION: Orogastric tube in gastric fundus Reviewed, dictated and finalized at Location A. Reviewed, dictated and finalized at location B.
--- NOTE | ~2020-08-12 | XR_ITS ---
EXAMINATION: XR chest ET placement DATE: 08/12/2020 16:03 INDICATION: Intubation. TECHNIQUE: A single frontal view of the chest was obtained. COMPARISON: Chest single view at 9:14 AM, chest single view 07/26/2020, CT abdomen and pelvis 07/20/2020 FINDINGS: There are airspace opacities in the perihilar regions. There is a diffuse interstitial thad candy in the lungs. No pleural effusion or pneumothorax. The heart size is normal. The endotracheal tub e tip is 5.2 cm above the luciano. The nasogastric tube tip is in the stomach. IMPRESSION: 1. Stable diffuse lung disease, likely moderate pulmonary edema. Reviewed, dictated and finalized at location A.
--- NOTE | ~2020-08-12 | XR_ITS ---
XR chest 1V portable DATE: 08/12/2020 09:15 INDICATION: Shortness of breath. Dyspnea. Diaphoresis. History of COPD and congestive heart failure TECHNIQUE: Portable upright AP chest on 08/12/2020 at 0914 hours COMPARISON: 07/26/2020 portable AP chest FINDINGS: There are prominent bilateral pulmonary infiltrates which are more prominent centrally, rig ht greater than left. Marilee B-lines are noted, as well as prominence of the minor fissure, consisten t with pulmonary interstitial and subpleural edema. There is slight if any pleural effusion. Heart size appears within normal range. There is aortic arch and descending thoracic aortic calcifica tion. Moderate diffuse osteopenia. IMPRESSION: Interval prominent bilateral infiltrates, which predominate centrally, right greater than left, likely due to pulmonary alveolar edema; pulmonary interstitial and subpleural edema are noted. Reviewed, dictated and finalized at location B. IMPRESSION: Interval prominent bilateral infiltrates, which predominate central ly, right greater than left, likely due to pulmonary alveolar edema; pulmonary interstitial and subpleural edema are noted.
--- NOTE | ~2020-08-12 | XR_ITS ---
EXAMINATION: XR chest 1V portable EXAM DATE: 08/15/2020 06:11 INDICATION: Respiratory failure. TECHNIQUE: Portable AP frontal chest x-ray was obtained. Comparison is made to prior examination from earlier same date. FINDINGS: There is mild bilateral perihilar acute airspace disease. There are no sizable pleural effusions. There is no pneumothorax suspected. The cardiomediastinal silhouette is prominent but magnified on this AP technique. The bones and soft tissues are unremarkable. Mild hyperinflation. Compared to last several days, continued interval improvement in the acute airspace disease. IMPRESSION: Continued improvement in bilateral perihilar edema and/or pneumonia. Reviewed, dictated and finalized at location A. IMPRESSION: Continued improvement in bilateral perihilar edema and/or pneumoni a.
[2020-08-12] MEDS: NITROGLYCERIN OINTMENT 1 INCH DOSE (08:59)
[2020-08-12] MEDS: LABETALOL HCL INJ 100 MG/20 ML VIAL (09:00)
[2020-08-12] MEDS: CALCIUM CHLORIDE 1,000 MG/10 ML SYRINGE 1000 MG IV PUSH (09:08)
[2020-08-12] MEDS: hydrALAZINE HCL 20 MG/ML VIAL 10 MG IV PUSH (09:13)
--- NOTE | 2020-08-12 09:24 | ECG_ITS ---
Measurements Intervals [place] Rate: 93 P: 30 [place]: 176 QRS: 34 QRSD: 102 T: 29 QT: 372 QTc: 463 Interpretive Statements SINUS RHYTHM POSSIBLE LEFT ATRIAL ENLARGEMENT BORDERLINE R WAVE PROGRESSION, ANTERIOR LEADS BORDERLINE ST-T WAVE ABNORMALITY- INF/LAT LEADS BASELINE ARTIFACT- I, II, III, AVR, AVL, V4-V6 BORDERLINE ECG Electronically Signed On 08-12-2020 9:33:40 CDT by Edmond Elias D.O.
--- NOTE | 2020-08-12 09:27 | ED.SOB ---
HPI - SOB/Dyspnea General Chief Complaint: Shortness of Breath/Dyspnea Stated Complaint: DIFFICULTY BREATHING Time Seen by Provider: 08/12/20 09:18 History of Present Illness HPI Narrative: 54 yo male w/ h/o ESRD on dialysis, CHF, flash pulmonary edema, COPD, SD brought in by EMS from home for respiratory distress. They were called out for SOB. He was initially alert. He was placed on CPAP and given Epi and fluids. During transport he became drowsy. He has bee nhere with a similar presentation many times recently. He has required CPR, intubation by myself personally. He is due for dialysis today. He has not missed any. Related Data Home Medications Medication Instructions Recorded Confirmed Lantus Solostar U-100 Insulin 10 unit SUBCUT HS 02/05/20 08/12/20 carvedilol 25 mg PO BID 02/05/20 08/12/20 furosemide 80 mg PO BID 02/05/20 08/12/20 insulin lispro [Humalog KwikPen See Rx Instructions .ROUTE .COMPLEX 02/05/20 08/12/20 Insulin] nitroglycerin 0.4 mg SUBLINGUAL Q5MIN PRN 02/05/20 08/12/20 pantoprazole 40 mg PO Q12H 02/05/20 08/12/20 losartan 100 mg PO QPM 04/10/20 08/12/20 Lantus Solostar U-100 Insulin 12 unit SUBCUT QAM 04/11/20 08/12/20 calcium carbonate [Tums] 200 mg PO PRN PRN 04/11/20 08/12/20 Brilinta 90 mg PO Q12H 07/02/20 08/12/20 aspirin 81 mg PO DAILY 07/02/20 08/12/20 atorvastatin [Lipitor] 40 mg PO DAILY 07/02/20 08/12/20 lorazepam [Ativan] 1 mg PO BID PRN 07/02/20 08/12/20 [place] 1 tablet PO DAILY 07/23/20 08/12/20 lanthanum 1,000 mg PO TIDWM 07/23/20 08/12/20 nicotine 1 patch TRANSDERMAL DAILY 07/23/20 08/12/20 albuterol sulfate 1 inh INHALATION QID PRN 08/12/20 08/12/20 cholecalciferol (vitamin D3) 50 mcg PO DAILY 08/12/20 08/12/20 rosuvastatin 10 mg PO HS 08/12/20 08/12/20 sertraline 25 mg PO DAILY 08/12/20 08/12/20 Allergies Allergy/AdvReac Type Severity Reaction Status Date / Time scopolamine Allergy Severe Unresponsiv Verified 07/23/20 07:32 e Review of Systems Review of Systems: ROS unobtainable: Yes unobtainable due to medical condition and unobtainable due to mental status PMFSH Past Medical History Medical History Acute blood loss anemia Anxiety Benign prostatic hyperplasia CHF (congestive heart failure) Chronic anemia Chronic kidney disease requiring chronic dialysis Coronary artery disease With non STEMI in December 2019, with stent placed to the LAD. Depression with anxiety End-stage renal disease on hemodialysis Flash pulmonary edema Gastric ulcer GERD (gastroesophageal reflux disease) Hyperkalemia Hypertension Hypertension Renal osteodystrophy Seizure Secondary to hypoglycemia. STEMI (ST elevation myocardial infarction) Tobacco dependence Type 1 diabetes mellitus Diagnosed at the age of 10. Complicated by retinopathy, nephropathy, and neuropathy. Hemoglobin A1c was 8.1% in December 2019. Vitamin D deficiency disease Surgical History Surgical History H/O endoscopy June 27, 2020 H/O heart artery stent LAD December of 2019June 26, 2020 left coronary Angiography the myectomy of LAD and stent thrombosis PTCA and stenting of LAD distal the previous devise a History of spinal surgery Neurostimulator in place. Hx of BKA Right leg S/P dialysis catheter insertion left forearm Status post below knee amputation of right lower extremity December 02, 2019 at [facility]. Status post cataract extraction Status post hemorrhoidectomy Family History Family History Father Hypertension Sibling Multiple myeloma Hypertension Mother Acute myelogenous leukemia Heart disease Social History Social History Social History: Mr. Corley lives at home in [place] with his and daughter. He is on disability. 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
[2020-08-12] MEDS: LABETALOL HCL INJ 100 MG/20 ML VIAL 20 MG IV PUSH (09:35)
[2020-08-12 09:51] LABS: Basophils Absolute Auto 0.1 K/mm3 (0.0-0.1); Basophils Percent Auto 0.7 % (0.2-1.2); Eosinophils Absolute Auto 0.6 K/mm3 (0-0.3); Eosinophils Percent Auto 4.6 % (0-4.4); Hematocrit 33.1 % (42.0-52.0); Hemoglobin 10.3 g/dL (14.0-18.0); Immature Granulocyte Absolute 0.07 K/mm3 (0.00-0.031); Immature Granulocyte Percent A 0.6 % (0-0.5); Lymphocytes Absolute Auto 2.63 K/mm3 (0.9-3.2); Lymphocytes Percent Auto 20.8 % (18.3-44.2); Mean Corpuscular HGB Conc 31.1 g/dl (32-36); Mean Corpuscular Hemoglobin 31.1 pg (26-34); Monocytes Absolute Auto 0.8 K/mm3 (0.1-0.6); Neutrophils Absolute Auto 8.5 K/mm3 (1.3-6.7); Neutrophils Percent Auto 67.3 % (45.5-73.1); Platelet Count Result 500 k/mm3 (150-375); Red Blood Count 3.31 M/mm3 (4.6-6.20); White Blood Count 12.6 K/mm3 (4.5-10.0)
[2020-08-12 09:57] LABS: Glucose Point of Care 281 (65-105)
[2020-08-12 09:59] LABS: INR 1.1; Prothrombin Time 13.6 Seconds (11.1-14.7)
[2020-08-12 10:00] LABS: Partial Thromboplastin Time 34.3 SECONDS (22.3-36.8)
[2020-08-12 10:44] LABS: Alanine Aminotransferase 67 U/L (4-50); Albumin Level 4.1 g/dL (3.5-5.1); Alkaline Phosphatase 112 U/L (38-126); Anion Gap 19 mmol/L (8-16); Aspartate Amino Transferase 163 U/L (17-59); Bilirubin,Total 0.3 mg/dL (0.2-1.3); Blood Urea Nitrogen 52 mg/dL (9-20); Calcium 10.3 mg/dL (8.4-10.2); Carbon Dioxide 23 mmol/L (22-30); Chloride 100 mmol/L (98-107); Estimated CRCL calculation 8 ml/min; Estimated Glomerular Filt Rate 6; Glucose 316 mg/dL (75-110); Magnesium 2.6 mg/dL (1.6-2.3); Phosphorus 10.9 mg/dL (2.5-4.5); Potassium 4.6 mmol/L (3.4-5.0); Sodium 142 mmol/L (137-145)
[2020-08-12] MEDS: NITROGLYCERIN/D5W 200 MCG/ML 50 MG/250 ML BTL 6 MG IV CONT (10:49)
[2020-08-12] MEDS: NITROGLYCERIN/D5W 200 MCG/ML 50 MG/250 ML BTL 6 MG (10:49)
[2020-08-12 10:58] LABS: NT Pro B Type Natriuretic Pept > 35000 PG/ML (5-100); Troponin I 0.092 ng/mL (0.000-0.034)
--- NOTE | 2020-08-12 11:14 | PC.NURSE ---
assumed care of pt from [facility] at this time.
--- NOTE | 2020-08-12 11:35 | PC.NURSE ---
nitro past removed from pt left chest.
--- NOTE | 2020-08-12 12:55 | PC.NURSE ---
Per EDP, IO is to remain in L leg at this time for secondary IV access.
--- NOTE | 2020-08-12 13:18 | PM.IMHP ---
H&P: HPI History of Present Illness Date/Time: 08/12/20 13:18 Chief complaint: ACUTE RESPIRATORY FAILURE,PULMONARY EDEMA Narrative: His blood sugar is 281.Ish Corley is a 54 year old male Who has dialysis on Monday. The patient did not go to dialysis today. The patient was very short of breath today but did not complain of any chest pain. The patient thought he would try to waited out for his dialysis patches could make it he was so short of breath. The patient just had a follow-up visit with his primary care doctor Dr. york on 07/31/2020 after the patient had been discharged from here on 07/26/2020. The patient had been admitted on 07/23/2020 after cardiac arrest. The patient had a potassium level of 7.5 at that time. Shelters cardiac arrest most likely was due to the potassium. Patient had rib fractures after his cardiac arrest due to chest compressions. Today the patient is in sinus rhythm. his white count was 12.6. H&H is 10.3 and 33.1. Troponin is 0.092. BNP is greater than 35,000 which is his baseline. The patient has chronically elevated troponin. He is not complaining of any chest pain at this Time. Patient was given labetalol, calcium chloride, hydralazine, nitro drip, and normal saline. Patient is being admitted inpatient to IMU. Review of Systems Review of Systems: Narrative: The patient is currently on a BiPAP machine any shaking his head yes and no to questions and his is answering questions as well. All systems reviewed & are unremarkable except as noted in HPI and below Constitutional: Constitutional: Reports as per HPI and Reports no additional constitutional complaints Eyes: Eyes: Reports as per HPI and Reports no additional eye complaints ENT: Reports system reviewed and no additional complaints, except as documented and Reports Normal hearing present Cardiovascular: Cardiovascular: Reports no additional cardiovascular complaints Respiratory: Respiratory: Reports no additional respiratory complaints and Reports no additional respiratory complaints Gastrointestinal: Gastrointestinal: Reports as per HPI and Reports no additional gastrointestinal complaints Musculoskeletal: Musculoskeletal: Reports no additional musculoskeletal complaints Integumentary/Breasts: Skin/Breast: Reports system reviewed and no additional complaints, except as docu and Reports as per HPI Neurologic: Reports system reviewed and no additional complaints, except as documented, Reports as per HPI and Reports Normal hearing present Psychiatric: Psychiatric: Reports no additional psychiatric complaints and Reports as per HPI Endocrine: Endocrine: Reports no additional endocrine complaints Hematologic/Lymphatic: Hematologic/Lymphatic: Reports no additional hematologic/lymphatic complaints Allergic/Immunologic: Allergic/Immunologic: Reports no additional allergic/immunologic complaints [facility] Past Medical History Medical History Acute blood loss anemia Anxiety Benign prostatic hyperplasia CHF (congestive heart failure) Chronic anemia Chronic kidney disease requiring chronic dialysis Coronary artery disease With non STEMI in December 2019, with stent placed to the LAD. Depression with anxiety End-stage renal disease on hemodialysis Flash pulmonary edema Gastric ulcer GERD (gastroesophageal reflux disease) Hyperkalemia Hypertension Hypertension Renal osteodystrophy Seizure Secondary to hypoglycemia. STEMI (ST elevation myocardial infarction) Tobacco dependence Type 1 diabetes mellitus Diagnosed at the age of 10. Complicated by retinopathy, nephropathy, and neuropathy. Hemoglobin A1c was 8.1% in December 2019. Vitamin D deficiency disease Surgical History Surgical History (Updated 08/12/20 @ 13:36 by Mary Lou Davila NP) H/O endoscopy June 27, 2020 H/O heart artery stent LAD December of 2019June 26, 2020 left coronary Angiograph
[2020-08-12 14:04] LABS: Alveolar/Arterial O2 Gradient 298.9 mmHg; Base Excess ABG -6.8 mEq/l (+/-2.0); Fractional Inspired Oxygen 60 %; Oxygen Content ABG 14.5 %vol (16.0-22.0); Oxygen Saturation ABG 96.8 % (95.0-100.0); Oxyhemoglobin 94.4 % THb (90.0-100.0); PCO2 ABG 33.5 mmHg (35.0-45.0); PO2 ABG 92.1 mmHg (80.0-100.0); PO2 FiO2 Ratio Arterial Blood 1.53 %; Total Hemoglobin 10.8 g/dL (12.0-18.0); pH ABG 7.348 (7.350-7.450)
[2020-08-12 14:05] LABS: Device BIPAP; Modified Allen's Test Pass; Site Drawn RIGHT RADIAL
[2020-08-12 14:06] LABS: Expiratory Pressure 7 cmH2O; Inspiratory Pressure 18 cmH2O
--- NOTE | 2020-08-12 14:31 | ADMGEN ---
This patient, Ish Corley, was admitted to IMU Room 210-01 on 08-12-2020 at 1318. Patient/family oriented to hospital policies and general routines including ID bracelet, bed and alarms, visiting hours, pain management, procedures, bathroom and other care routines, personal items, smoking policy, room service/diet, and visiting hours. Valuables list has been completed. Information on how to activate the Rapid Response Team has been discussed. Patient/Family are encouraged to report perceived risks to care and to ask questions if they do not understand what they are told or what they should do.
[2020-08-12] MEDS: LORazepam INJ (*CRX) 2 MG/ML VIAL 0.5 MG IV PUSH (14:46)
--- NOTE | 2020-08-12 15:03 | P.PNCROSS_ITS ---
Event Note Event Note Event Note: I was called into the patient's room while he was getting dialysis. He was very diaphoretic and tachypneic. His blood pressure went up so we requested that the nitro drip be increased. The patient is currently getting dialysis. We put him on a non-rebreather at 15 L any satting 100%. I asked for of blood sugar read as well since the patient is diaphoretic and anxious. Patient's respirations are 32-40 and he is using accessory muscles he has retractions. Respiratory was called for ABGs which are not bad. Troponin has been drawn. Dr. Cortes was called to the room. Patient will be intubated by the licensed investment sales assistant and taken to ICU. An EKG was performed which shows sinus tachycardia. It was reading as atrial flutter but it is Sinus tachycardia per my read. I showed the EKG to the licensed investment sales assistant as well.
[2020-08-12 15:11] LABS: Troponin I 0.085 ng/mL (0.000-0.034)
[2020-08-12] MEDS: PROPOFOL IV EMULSION 100 ML 4.1 MG IV CONT (15:20)
[2020-08-12 15:56] LABS: Glucose Point of Care 315 (65-105)
[2020-08-12] MEDS: hydrALAZINE HCL 20 MG/ML VIAL IV PUSH (15:57)
[2020-08-12 15:59] LABS: Alveolar/Arterial O2 Gradient 501.2 mmHg; Base Excess ABG -4.1 mEq/l (+/-2.0); Carboxyhemoglobin 1.9 % THb (0-2.0); Fractional Inspired Oxygen 100 %; HCO3 ABG 20.9 mEq/l (22.0-26.0); Methemoglobin ABG 0.3 %THb (0-1.5); Oxygen Content ABG 16.1 %vol (16.0-22.0); Oxygen Saturation ABG 99.1 % (95.0-100.0); Oxyhemoglobin 97.3 % THb (90.0-100.0); PCO2 ABG 38.1 mmHg (35.0-45.0); PO2 ABG 173.7 mmHg (80.0-100.0); PO2 FiO2 Ratio Arterial Blood 1.74 %; Reduced Hemoglobin 0.5 %THb (0-5.0); Total Hemoglobin 11.5 g/dL (12.0-18.0); pH ABG 7.357 (7.350-7.450)
[2020-08-12 16:00] LABS: Arterial Blood Gas PEEP 8 cmH2O; Arterial Blood Gas Tidal Volume 450 ml; Arterial Blood Gas Vent Mode CMV; Arterial Blood Gas Ventilator rate 20 /MIN; Device VENTILATOR; Site Drawn RIGHT BRACHIAL
--- NOTE | 2020-08-12 16:13 | PM.PNNEP ---
Progress Note: A&P Assessment and Plan (1) ESRD (end stage renal disease): Code(s): N18.6 - End stage renal disease Status: Acute Assessment and Plan: HD today possible DUF tomorrow FULL CONSULT to follow Subjective Date/time seen: 08/12/20 16:13 Tolerating dialysis at the time of my visit (seen on HD at 3:50PM); currently intubated and on mechanical ventilation (intubated about a hour ago); no distress at this time; BP is doing better. Objective Data Vital Signs Vital Signs: Vital Signs Temp Pulse Resp BP Pulse Ox 08/12/20 15:25 115 H 100 08/12/20 15:20 123 H 24 H 08/12/20 14:10 98 08/12/20 14:07 142/78 H 08/12/20 13:46 140/70 08/12/20 13:45 140/70 08/12/20 13:43 148/80 H 08/12/20 13:36 36.6 C 91 29 H 148/85 H 93 08/12/20 13:32 36.6 C 91 29 H 148/85 H 93 08/12/20 13:18 89 35 H 100 08/12/20 13:09 89 28 H 165/66 H 100 08/12/20 12:33 89 28 H 165/66 H 100 08/12/20 12:26 85 27 H 100 08/12/20 12:06 175/65 H 08/12/20 12:05 175/65 H 08/12/20 11:46 82 158/65 H 08/12/20 11:31 86 32 H 178/80 H 100 08/12/20 11:24 182/63 H 08/12/20 11:13 85 205/72 H 08/12/20 10:40 35.5 C L 08/12/20 09:53 88 27 H 174/106 H 100 08/12/20 09:50 86 31 H 174/106 H 100 08/12/20 09:30 92 31 H 100 08/12/20 09:29 91 29 H 252/107 H 100 08/12/20 09:25 91 34 H 252/107 H 100 08/12/20 09:22 90 31 H 08/12/20 09:10 115 H 31 H 90 08/12/20 09:05 91 Meds/Results Medications: Active Medications Generic Name Dose Route Start Last Admin Trade Name Freq PRN Reason Stop Dose Admin Hydrocodone Bitart/Acetaminophen 1 tab 08/12/20 13:49 [place] 5-325 Mg PO Q4H PRN Pain Rated 4-6 Albuterol 1 puff 08/12/20 13:49 Proventil Hfa INHALATION QID PRN Shortness Of Breath Or Wheezing Aspirin 81 mg 08/13/20 09:00 Aspirin Ec PO DAILY [facility] Atorvastatin Calcium 40 mg 08/13/20 09:00 Lipitor PO DAILY [facility] Calcium Carbonate 200 mg 08/12/20 13:49 Tums PO PRN PRN Indigestion Carvedilol 25 mg 08/12/20 21:00 Coreg PO Q12HR [facility] Dextrose 12.5 gm 08/12/20 14:00 Dextrose 50% Syringe IV PUSH PRN PRN Hypoglycemia Protocol Furosemide 80 mg 08/12/20 17:00 Lasix Tablet PO BID [facility] Glucagon 1 mg 08/12/20 14:00 Glucagon For Inj IM PRN PRN Hypoglycemia Protocol Glucose 15 gm 08/12/20 14:00 Glutose 15 PO PRN PRN Hypoglycemia Protocol Hydralazine HCl 10 mg 08/12/20 13:37 Apresoline Hcl Inj IV PUSH Q8H PRN Blood Pressure - High Dextrose 1,000 mls @ 100 mls/hr 08/12/20 14:00 Dextrose 5% 1,000 Ml IVPB PRN PRN Hypoglycemia Protocol Propofol 100 mls @ 8.1 mls/hr 08/12/20 15:25 08/12/20 15:45 Diprivan IV CONT 20 mcg/kg/min .[id number] MARTHA 8.1 mls/hr Titration Protocol 20 MCG/KG/MIN Insulin Aspart 2 - 5 units 08/12/20 17:00 Novolog SUB-Q TIDWM [facility] Protocol Insulin Glargine 12 units 08/13/20 09:00 Lantus SUB-Q QAM [facility] Insulin Glargine 10 units 08/12/20 21:00 Lantus SUB-Q HS [facility] Lorazepam 1 mg 08/12/20 13:49 Ativan Tablet PO BID PRN Anxiety Losartan Potassium 100 mg 08/12/20 18:00 Cozaar PO QPM [facility] Multi-Ingred Cream/Lotion/Oil/Oint 1 applic 08/12/20 21:00 Lubrifresh Pm Eye Ointment EACH EYE Q12HR [facility] Nicotine 1 patch 08/12/20 14:15 Nicoderm Cq 21 Mg TRANSDERM DAILY [facility] Nitroglycerin 0.4 mg 08/12/20 13:49 Nitrostat Subl 0.4 Mg (1/150) SUBLINGUAL Q5MIN PRN Chest Pain Non-Formulary Medication 1,000 mg 08/12/20 17:00 Lanthanum PO 09/11/20 17:01 TIDWM [facility] Pantoprazole Sodium 40 mg 08/12/20 21:00 Protonix PO Q12HR [facility] Rosuvastatin Calcium 10 mg 07/16
[2020-08-12] MEDS: LEVALBUTEROL NEB 1.25 MG/3 ML 3.75 MG INHALATION (16:20)
[2020-08-12 16:26] LABS: Glucose Point of Care 213 (65-105)
[2020-08-12 17:42] LABS: Troponin I 0.121 ng/mL (0.000-0.034)
--- NOTE | 2020-08-12 19:41 | WPDCNINT ---
Assessment and Plan Assessment and plan (1) Acute respiratory failure with hypoxia and hypercarbia: Code(s): J96.01 - Acute respiratory failure with hypoxia; J96.02 - Acute respiratory failure with hypercapnia Status: Acute Assessment and Plan: acute respiratory failure likely related to pulmonary edema /volume overload secondary end-stage renal disease on dialysis and a congestive heart failure - patient intubated, on CMV mode of ventilation - chest x-ray and ABGs post intubation reviewed, ventilator adjusted - continue bronchodilators - continue propofol for sedation maintain RASS of 0 to -2 (2) Pulmonary edema: Code(s): J81.1 - Chronic pulmonary edema Status: Acute Assessment and Plan: flash pulmonary edema likely related to end-stage renal disease - patient was dialyzed with removal of 4 L of fluid - chest x-ray with bilateral pulmonary edema (3) ESRD (end stage renal disease): Code(s): N18.6 - End stage renal disease Status: Acute Assessment and Plan: end-stage renal disease on dialysis, Monday, Monday, Monday - nephrology following the patient and dialysis per plate painter - patient did get dialyzed today with removal of 4 L (4) Hypertensive urgency: Code(s): I16.0 - Hypertensive urgency Status: Acute Assessment and Plan: hypertensive urgency requiring nitroglycerin infusion - status post dialysis - currently on propofol infusion with adequate blood pressures - continue to monitor (5) Type 1 diabetes mellitus: Qualifiers: Diabetes mellitus complication status: with kidney complications Diabetes mellitus complication detail: with chronic kidney disease Chronic kidney disease stage: on chronic dialysis Qualified Code(s): E10.22 - Type 1 diabetes mellitus with diabetic chronic kidney disease; N18.6 - End stage renal disease; Z99.2 - Dependence on renal dialysis Code(s): E10.9 - Type 1 diabetes mellitus without complications Status: Chronic Assessment and Plan: Accu-Cheks, sliding scale insulin and Lantus (6) HLD (hyperlipidemia): Qualifiers: Hyperlipidemia type: unspecified Qualified Code(s): E78.5 - Hyperlipidemia, unspecified Code(s): E78.5 - Hyperlipidemia, unspecified Status: Chronic Assessment and Plan: continue atorvastatin (7) CAD (coronary artery disease): Code(s): I25.10 - Atherosclerotic heart disease of [place] coronary artery without angina pectoris Status: Acute Assessment and Plan: patient does have an extensive cardiac history, with recent in stent thrombosis on 06/26/2020 status post successful PCI involving extraction thrombectomy - continue carvedilol, Brilinta, rosuvastatin, losartan (8) CHF (congestive heart failure): Code(s): I50.9 - Heart failure, unspecified Status: Acute Assessment and Plan: 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 - continue medications as above (9) DVT prophylaxis: Code(s): Z29.9 - Encounter for prophylactic measures, unspecified Status: Acute Assessment and Plan: heparin subcu Additional Plan discussed with and updated with patient's condition and plan of care. I answered all questions code status: Full code critical care time spent: 51 minutes Due to a high probability of clinically significant, life threatening deterioration, the patient required my highest level of preparedness to intervene emergently and I personally spent this critical care time directly and personally managing the patient. This critical care time included obtaining a history; examining the patient; pulse oximetry; ordering and review of studies; arranging urgent treatment with develop
--- NOTE | 2020-08-12 19:57 | WPDPROCEDUR ---
Procedures Intubation Intubation Date: 08/12/20 A pre-procedural Time-Out was completed immediately before starting the procedure and confirmed: Patient Identification, Site, Procedure, Patient Position and the Availability of Requisite Equipment: Yes Sedative: etomidate Paralytic: rocuronium Laryngoscope: fiber optic video scope Assist device used: fiber optic device ET tube size: 8 Tube secured depth (cm): 24 Tube secured location: lips Tube placement confirmation: visualized tube passing through cords, equal breath sounds bilaterally, no breath sounds over epigastrium and confirmation by capnometry Patient tolerated procedure: well Intubation complications: none Additional comments: ETT in appropriate position on chest x-ray
--- NOTE | 2020-08-12 20:55 | PC.NURSE ---
Patient arrived to IMU floor from ER at 13:18. Patient was on continuous BiPAP with a Nitro drip running at 45 mcg/min. TISH Dumont and Nakia Matthews, ICU Director monitored patients BP and Nakia spoke with the physician and adjusted the Nitro drip rate per orders. Riki set up machinist was present on arrival and began to hook patient up for his dialysis treatment. While completing the admission questions with the patients spouse at the room door, the patient was noted to be vomiting into his BiPAP mask at approximately 14:25. The mask was immediately removed and RT called and the patient was placed on high flow nasal cannula. The patient, while clammy on arrival from ER, was, at this time, now noted to be extremely diaphoretic, working hard to breath and had bilateral wheezes in all lung worthy. The patient was laboring hard to breath and stating I can't breath. Help me. I can't breath. The patients oxygen saturation levels remained 95% or higher during this time. Mary Lou Davila, EXTRACTOR LOADER AND UNLOADER was called when patient vomited and asked to come to the room. When she arrived, I updated Mary Lou on the patients deteriorating condition. She placed orders for Ativan IVP which was administer. The patients anxiety,shortness of breath and work of breathing continued despite best efforts. Dr. Cortes and Nakia Matthews were informed and both responded to the patients room. Dr. Cortes, at that time, decided to intubate the patient and supplies were obtained. The patient was successfully intubated at 15:08 and placed on a Propofol drip. Dialysis treatment continued throughout the respiratory distress and intubation. Dr. Martino assessed the patient later in the afternoon at approximately 15:45 and was updated on the events since admission.
[2020-08-12] MEDS: TICAGRELOR 90 MG TABLET PO (21:43)
[2020-08-12] MEDS: HEPARIN SODIUM 5,000 UNITS/ML VIAL 5000 UNITS SUB-Q (21:43)
[2020-08-12] MEDS: PANTOPRAZOLE SODIUM IV 40 MG VIAL IV PUSH (21:44)
[2020-08-12] MEDS: INSULIN GLARGINE (*BKC) 100 UNITS/ML 10 UNITS SUB-Q (21:45)
[2020-08-12] MEDS: PROPOFOL IV EMULSION 100 ML 18.2 MG IV CONT (23:35)
[2020-08-12] MEDS: HYDROcodone/acetaminophen (*CRX) 5-325 MG TABLET 1 TAB PO (23:44)
[2020-08-13] VITALS (51 sets, daily range): BP systolic 75–138; BP diastolic 45–69; PULSE 68–101; RESP 14–24; TEMP 0–37.4; O2SAT 96–100; BMI 24.2
[2020-08-13 00:12] LABS: Glucose Point of Care 184 (65-105)
[2020-08-13] MEDS: LORazepam (*CRX) 1 MG TABLET PO (02:33)
[2020-08-13] MEDS: PROPOFOL IV EMULSION 100 ML 20.3 MG IV CONT ×2 (05:44→10:37)
[2020-08-13 06:34] LABS: Basophils Percent Auto 0.3 % (0.2-1.2); Eosinophils Absolute Auto 0.1 K/mm3 (0-0.3); Eosinophils Percent Auto 0.8 % (0-4.4); Hematocrit 29.7 % (42.0-52.0); Hemoglobin 9.8 g/dL (14.0-18.0); Immature Granulocyte Absolute 0.04 K/mm3 (0.00-0.031); Immature Granulocyte Percent A 0.4 % (0-0.5); Lymphocytes Absolute Auto 1.07 K/mm3 (0.9-3.2); Lymphocytes Percent Auto 10.8 % (18.3-44.2); Mean Corpuscular Hemoglobin 30.5 pg (26-34); Mean Corpuscular Volume 92.5 fl (80-100); Mean Platelet Volume 9.9 fl (7.4-10.4); Monocytes Absolute Auto 0.6 K/mm3 (0.1-0.6); Monocytes Percent Auto 6.3 % (2.6-8.5); Neutrophils Absolute Auto 8.1 K/mm3 (1.3-6.7); Neutrophils Percent Auto 81.4 % (45.5-73.1); Platelet Count Result 422 k/mm3 (150-375); Red Blood Count 3.21 M/mm3 (4.6-6.20); Red Cell Distribution Width 16.3 % (11.5-14.5); White Blood Count 9.9 K/mm3 (4.5-10.0)
[2020-08-13 06:42] LABS: Alveolar/Arterial O2 Gradient 146.5 mmHg; Base Excess ABG 5.9 mEq/l (+/-2.0); Carboxyhemoglobin 1.1 % THb (0-2.0); Fractional Inspired Oxygen 40 %; HCO3 ABG 27.9 mEq/l (22.0-26.0); Methemoglobin ABG 0.3 %THb (0-1.5); Oxygen Saturation ABG 98.4 % (95.0-100.0); Oxyhemoglobin 96.8 % THb (90.0-100.0); PCO2 ABG 31.4 mmHg (35.0-45.0); PO2 ABG 102.6 mmHg (80.0-100.0); PO2 FiO2 Ratio Arterial Blood 2.57 %; Reduced Hemoglobin 1.8 %THb (0-5.0); Total Hemoglobin 10.2 g/dL (12.0-18.0)
[2020-08-13 06:44] LABS: Arterial Blood Gas Vent Mode CMV; Arterial Blood Gas Ventilator rate 20 /MIN; Device VENTILATOR; Modified Allen's Test Pass; Site Drawn RIGHT RADIAL; pH ABG 7.567 (7.350-7.450)
[2020-08-13 06:45] LABS: Arterial Blood Gas PEEP 8 cmH2O; Arterial Blood Gas Tidal Volume 450 ml
[2020-08-13 07:03] LABS: Alanine Aminotransferase 42 U/L (4-50); Albumin Level 3.6 g/dL (3.5-5.1); Alkaline Phosphatase 95 U/L (38-126); Anion Gap 16 mmol/L (8-16); Aspartate Amino Transferase 41 U/L (17-59); Bilirubin,Total 0.4 mg/dL (0.2-1.3); Blood Urea Nitrogen 36 mg/dL (9-20); Carbon Dioxide 28 mmol/L (22-30); Chloride 96 mmol/L (98-107); Estimated CRCL calculation 13 ml/min; Estimated Glomerular Filt Rate 11; Glucose 115 mg/dL (75-110); Lipase 27 U/L (23-300); Magnesium 2.3 mg/dL (1.6-2.3); Phosphorus 6.6 mg/dL (2.5-4.5); Potassium 3.9 mmol/L (3.4-5.0); Sodium 140 mmol/L (137-145)
[2020-08-13 07:40] LABS: Thyroid Stimulating Hormone Reflex 0.859 uIU/mL (0.465-4.68)
[2020-08-13] MEDS: CHOLECALCIFEROL 1,000 UNITS TABLET 2000 UNITS PO (09:02)
[2020-08-13] MEDS: ASPIRIN 81 MG ENTERIC TABLET PO (09:02)
[2020-08-13] MEDS: HEPARIN SODIUM 5,000 UNITS/ML VIAL 5000 UNITS SUB-Q ×2 (09:02→20:05)
[2020-08-13] MEDS: VITAMIN B CMPLX/VIT C/FOLIC AC 1 CAPSULE 1 CAP PO (09:03)
[2020-08-13] MEDS: SERTRALINE HCL 25 MG TABLET PO (09:03)
[2020-08-13] MEDS: PANTOPRAZOLE SODIUM IV 40 MG VIAL IV PUSH ×2 (09:03→20:02)
[2020-08-13] MEDS: TICAGRELOR 90 MG TABLET PO ×2 (09:03→20:03)
[2020-08-13 09:19] LABS: Glucose Point of Care 106 (65-105)
--- NOTE | 2020-08-13 09:36 | PM.CNNEP ---
Assessment and Plan Assessment and plan (1) ESRD (end stage renal disease): Code(s): N18.6 - End stage renal disease Status: Acute Assessment and Plan: HD tomorrow and eventually transition to M/W/F next week follow electrolytes, volume status, and clearance (2) Acute respiratory failure: Code(s): J96.00 - Acute respiratory failure, unspecified whether with hypoxia or hypercapnia Status: Acute Assessment and Plan: due to pulmonary edema wean mechanical ventilation as tolerated DUF today for further fluid removal (3) Pulmonary edema: Code(s): J81.1 - Chronic pulmonary edema Status: Acute Assessment and Plan: as noted by CXR on admission continue with HD and DUF to facilitate significant fluid removal/ultrafiltration follow respiratory status (4) Hypertensive urgency: Code(s): I16.0 - Hypertensive urgency Status: Acute Assessment and Plan: doing better weaned off nitro gtt resume home medications as tolerated follow trend of hemodynamics (5) CHF (congestive heart failure): Qualifiers: Heart failure chronicity: acute on chronic Heart failure type: combined systolic and diastolic Qualified Code(s): I50.43 - Acute on chronic combined systolic (congestive) and diastolic (congestive) heart failure Code(s): I50.9 - Heart failure, unspecified Status: Acute Assessment and Plan: likely playing a role with respiratory status reassess once fluid/volume status optimized (6) Diabetes: Qualifiers: Diabetes mellitus complication detail: with other circulatory complications Diabetes mellitus complication status: with circulatory complication Diabetes mellitus type: type 1 Qualified Code(s): E10.59 - Type 1 diabetes mellitus with other circulatory complications Code(s): E11.9 - Type 2 diabetes mellitus without complications Status: Acute Assessment and Plan: follow accuchecks on SSI I will continue follow the patient with you while remains hospitalized make further recommendations during his hospital course. Thank you for allowing me to participate in the care this patient History of Present Illness Reason for Consult Consult date: 08/13/20 Reason for consult: end stage renal disease Chief Complaint Chief complaint: ACUTE RESPIRATORY FAILURE,PULMONARY EDEMA History of Present Illness Narrative: The patient is a 54 year old male with an extensive past medical history as outlined below who presented to [facility] ER with complaints of increasing shortness of breath, dyspnea and drowsiness. The patient apparently woke up with the symptoms and a progressively seemed to worsen to the point where he called 911 and EMS was sent for further evaluation. He appeared to be in respiratory distress and hypoxic and supplemental oxygen was applied and he was brought to the emergency room for further evaluation and therapy Workup and evaluation emergency room demonstrated the patient to be quite hypertensive with a systolic BP greater than 250 and in significant respiratory distress. BiPAP was applied in the hopes of improving his breathing and he was given IV labetalol to try to help bring his blood pressure down. This failed to bring his blood pressure down significantly so he was started on a nitroglycerin drip for better control. Routine blood test demonstrated labs consistent with his known history of end-stage renal disease with no critical electrolyte abnormalities. chest x-ray demonstrated bilateral infiltrates presumably secondary to pulmonary edema. With BiPAP, his respirations seem to somewhat stabilized and he was subsequent admitted to IMU with ongoing BiPAP and the aforementioned nitroglycerin drip. Since his admission, he was started on dialysis in effort to improve his respiratory status but he continued to decline with worsening respiratory distress in a
[2020-08-13] MEDS: HYDROmorphone HCL INJ (*CRX) 1 MG/ML SYR 0.25 MG IV PUSH (10:46)
[2020-08-13] MEDS: ATORVASTATIN 40 MG TABLET PO (13:02)
--- NOTE | 2020-08-13 13:52 | WPDINTPN ---
Progress Note: A&P Assessment and Plan (1) Acute respiratory failure with hypoxia and hypercarbia: Code(s): J96.01 - Acute respiratory failure with hypoxia; J96.02 - Acute respiratory failure with hypercapnia Status: Acute Assessment and Plan: acute respiratory failure likely related to pulmonary edema /volume overload secondary end-stage renal disease on dialysis and a congestive heart failure - patient intubated, on CMV mode of ventilation - chest x-ray and ABGs reviewed, ventilator adjusted - continue bronchodilators - continue propofol for sedation maintain RASS of 0 to -2 (2) Pulmonary edema: Code(s): J81.1 - Chronic pulmonary edema Status: Acute Assessment and Plan: flash pulmonary edema likely related to end-stage renal disease - patient was dialyzed with removal of 3 L of fluid on 08/12/2020 - chest x-ray with bilateral pulmonary edema - discussed with Nephrology, patient again dialyzed again today (3) ESRD (end stage renal disease): Code(s): N18.6 - End stage renal disease Status: Acute Assessment and Plan: end-stage renal disease on dialysis, Monday, Monday, Monday - nephrology following the patient and dialysis per search engine marketing specialist - patient did get dialyzed today with removal of 3L on 08/12/2020 (4) Hypertensive urgency: Code(s): I16.0 - Hypertensive urgency Status: Acute Assessment and Plan: hypertensive urgency requiring nitroglycerin infusion. PATIENT OFF TRIGLYCERIDE INFUSION - status post dialysis - currently on propofol infusion with adequate blood pressures - continue to monitor (5) Type 1 diabetes mellitus: Qualifiers: Diabetes mellitus complication status: with kidney complications Diabetes mellitus complication detail: with chronic kidney disease Chronic kidney disease stage: on chronic dialysis Qualified Code(s): E10.22 - Type 1 diabetes mellitus with diabetic chronic kidney disease; N18.6 - End stage renal disease; Z99.2 - Dependence on renal dialysis Code(s): E10.9 - Type 1 diabetes mellitus without complications Status: Chronic Assessment and Plan: Accu-Cheks, sliding scale insulin and Lantus (6) HLD (hyperlipidemia): Qualifiers: Hyperlipidemia type: unspecified Qualified Code(s): E78.5 - Hyperlipidemia, unspecified Code(s): E78.5 - Hyperlipidemia, unspecified Status: Chronic Assessment and Plan: continue atorvastatin (7) CAD (coronary artery disease): Code(s): I25.10 - Atherosclerotic heart disease of [place] coronary artery without angina pectoris Status: Acute Assessment and Plan: patient does have an extensive cardiac history, with recent in stent thrombosis on 06/26/2020 status post successful PCI involving extraction thrombectomy - continue carvedilol, Brilinta, rosuvastatin, losartan (8) CHF (congestive heart failure): Code(s): I50.9 - Heart failure, unspecified Status: Acute Assessment and Plan: 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 - continue medications as above (9) DVT prophylaxis: Code(s): Z29.9 - Encounter for prophylactic measures, unspecified Status: Acute Assessment and Plan: heparin subcu Additional Plan discussed with and updated with patient's condition and plan of care. I answered all questions code status: Full code critical care time spent: 34 minutes Due to a high probability of clinically significant, life threatening deterioration, the patient required my highest level of preparedness to intervene emergently and I personally spent this critical care time directly and personally managing the patient. This critical care time included obtaining a history
[2020-08-13 14:00] LABS: Glucose Point of Care 92 (65-105)
[2020-08-13] MEDS: PROPOFOL IV EMULSION 100 ML 16.2 MG IV CONT ×2 (16:43→22:18)
--- NOTE | 2020-08-13 20:00 | PC.NURSE ---
propofol drip running at 45mcg per hour. Increased to 50 due to agitation.
[2020-08-13] MEDS: INSULIN GLARGINE (*BKC) 100 UNITS/ML 10 UNITS SUB-Q (20:23)
[2020-08-13 20:29] LABS: Glucose Point of Care 233 (65-105)
[2020-08-13] MEDS: ALBUMIN HUMAN 25% 25 GM/100 ML 100 ML IVPB (23:49)
[2020-08-13] MEDS: INSULIN ASPART (*BKC) 100 UNITS/ML SUB-Q (23:53)
[2020-08-14] VITALS (23 sets, daily range): BP systolic 105–178; BP diastolic 54–76; PULSE 56–83; RESP 15–27; TEMP 36.4–37.7; O2SAT 88–100
[2020-08-14 00:02] LABS: Glucose Point of Care 269 (65-105)
--- NOTE | 2020-08-14 02:38 | PC.NURSE ---
Pt self extubated at 0210. Placed on nonrebreather. Pt asking for apple juice. When told he can not have any states things are about to go real bad and demands discharge papers. Explained to patient it is not safe for him to go home after self extubating when he has had low blood pressures this evening. Pt states he does not care get my discharge papers . Pt shaking oxygen mask off and trying to climb out of bed with restraints on and right BKA, attempting to break restraints. Dr Cortes called and precedex ordered.
--- NOTE | 2020-08-14 02:41 | P.PNCROSS_ITS ---
Event Note Event Note Event Note: Nursing staff called to inform me that the patient had self- extubated. By the time I arrived at the patient's bedside the patient was on a non-rebreather in maintaining oxygen saturations. The patient was demanding discharge papers or he was going to leave AMA.
[2020-08-14 04:49] LABS: Hematocrit 29.7 % (42.0-52.0); Hemoglobin 9.5 g/dL (14.0-18.0); Mean Corpuscular Hemoglobin 30.4 pg (26-34); Mean Corpuscular Volume 95.2 fl (80-100); Mean Platelet Volume 10.4 fl (7.4-10.4); Platelet Count Result 385 k/mm3 (150-375); Red Blood Count 3.12 M/mm3 (4.6-6.20); Red Cell Distribution Width 16.7 % (11.5-14.5); White Blood Count 9.6 K/mm3 (4.5-10.0)
--- NOTE | 2020-08-14 05:16 | PCRCNOTE ---
05:15 went into pt room to obtain an ABG he told me not now later today. RN is aware.
[2020-08-14 05:28] LABS: Anion Gap 19 mmol/L (8-16); Blood Urea Nitrogen 55 mg/dL (9-20); Calcium 9.7 mg/dL (8.4-10.2); Carbon Dioxide 31 mmol/L (22-30); Chloride 91 mmol/L (98-107); Estimated CRCL calculation 8 ml/min; Estimated Glomerular Filt Rate 7; Glucose 190 mg/dL (75-110); Magnesium 2.6 mg/dL (1.6-2.3); Phosphorus 8.4 mg/dL (2.5-4.5); Potassium 4.1 mmol/L (3.4-5.0); Sodium 141 mmol/L (137-145)
[2020-08-14] MEDS: SERTRALINE HCL 25 MG TABLET PO (09:07)
[2020-08-14] MEDS: VITAMIN B CMPLX/VIT C/FOLIC AC 1 CAPSULE 1 CAP PO (09:07)
[2020-08-14] MEDS: ASPIRIN 81 MG ENTERIC TABLET PO (09:08)
[2020-08-14] MEDS: CHOLECALCIFEROL 1,000 UNITS TABLET 2000 UNITS PO (09:08)
[2020-08-14] MEDS: PANTOPRAZOLE SODIUM IV 40 MG VIAL IV PUSH ×2 (09:08→21:09)
[2020-08-14] MEDS: TICAGRELOR 90 MG TABLET PO ×2 (09:08→21:10)
[2020-08-14] MEDS: ATORVASTATIN 40 MG TABLET PO (09:08)
[2020-08-14] MEDS: NICOTINE (*PBKC) 21 MG PATCH 1 PATCH TRANSDERM (09:08)
[2020-08-14] MEDS: INSULIN GLARGINE (*BKC) 100 UNITS/ML 12 UNITS SUB-Q (09:14)
[2020-08-14 09:18] LABS: Glucose Point of Care 172 (65-105)
[2020-08-14] MEDS: HEPARIN SODIUM 5,000 UNITS/ML VIAL 5000 UNITS SUB-Q ×2 (10:02→21:01)
--- NOTE | 2020-08-14 10:13 | PC.NURSE ---
Gave Cari on 2nd medical report on patient. Patient is eating his breakfast and will be moved after he is done.
--- NOTE | 2020-08-14 11:15 | PC.NURSE ---
Received patient from ICU via wheelchair with ICU staff. Patient settled in room. Ambulating in room. Patient's at bedside. No c/o pain. No distress noted.
--- NOTE | 2020-08-14 11:26 | PCDIET ---
Nutrition Follow-Up Complete: Nutrition Diagnosis: Inadequate oral intake related to oral intubation as evidenced by NPO status. Nutrition Goal: Patient to meet estimated nutritional needs. Goal in progress. Patient extubated and diet advanced to diabetic, renal dialysis. Recommend adding phosphate binder. Will monitor intakes and provide additional recommendations, as needed. Last recorded weight is 58.3 kg which is significantly decreased. -I/O with UF on 08/12/20 and 08/13/20. Recommend re-weighing to ensure accuracy. Bowel Motility: No documented BM. Labs Reviewed: Hgb (9.5), Hct (29.7), Glu (190), BUN (55), Cr (7.9), PO4 (8.4), Mg (2.6) Meds Noted: [place], Lipitor, Retacrit, Heparin, Novolog, Lantus, Protonix, Nephrocaps, Vitamin D Additional Notes: No documented skin breakdown. Will continue to monitor with same goal. Nutrition Monitoring and Evaluation: Follow up every 3 days. Follow daily in ICU rounds.
[2020-08-14 11:41] LABS: Glucose Point of Care 225 (65-105)
--- NOTE | 2020-08-14 11:56 | PC.NURSE ---
Patient transferred to [facility] via wheelchair. Patient belongings and medications transferred with patient.
[2020-08-14] MEDS: INSULIN ASPART (*BKC) 100 UNITS/ML SUB-Q ×2 (12:19→21:05)
[2020-08-14] MEDS: carvediloL 25 MG TABLET PO (12:21)
[2020-08-14] MEDS: HYDROcodone/acetaminophen (*CRX) 5-325 MG TABLET 1 TAB PO ×2 (12:27→18:16)
--- NOTE | 2020-08-14 13:09 | WPDINTPN ---
Progress Note: A&P Assessment and Plan (1) Acute respiratory failure with hypoxia and hypercarbia: Code(s): J96.01 - Acute respiratory failure with hypoxia; J96.02 - Acute respiratory failure with hypercapnia Status: Acute Assessment and Plan: acute respiratory failure likely related to pulmonary edema /volume overload secondary end-stage renal disease on dialysis and a congestive heart failure - self-extubated during the night, on 1 L nasal cannula. - chest x-ray Much improved - continue bronchodilators (2) Pulmonary edema: Code(s): J81.1 - Chronic pulmonary edema Status: Acute Assessment and Plan: flash pulmonary edema likely related to end-stage renal disease : SIGNIFICANTLY IMPROVED - patient was dialyzed with removal of 3 L of fluid on 08/12/2020 AND 3.2 L OF FLUID REMOVAL on 08/13/2020 - chest x-ray improvement in pulmonary edema - patient to be dialyzed again today (3) ESRD (end stage renal disease): Code(s): N18.6 - End stage renal disease Status: Acute Assessment and Plan: end-stage renal disease on dialysis, Monday, Monday, Monday - nephrology following the patient and dialysis per burnisher - patient will be dialyzed again today (4) Hypertensive urgency: Code(s): I16.0 - Hypertensive urgency Status: Acute Assessment and Plan: hypertensive urgency requiring nitroglycerin infusion. PATIENT OFF TRIGLYCERIDE INFUSION - status post dialysis - currently on propofol infusion with adequate blood pressures - continue to monitor (5) Type 1 diabetes mellitus: Qualifiers: Diabetes mellitus complication status: with kidney complications Diabetes mellitus complication detail: with chronic kidney disease Chronic kidney disease stage: on chronic dialysis Qualified Code(s): E10.22 - Type 1 diabetes mellitus with diabetic chronic kidney disease; N18.6 - End stage renal disease; Z99.2 - Dependence on renal dialysis Code(s): E10.9 - Type 1 diabetes mellitus without complications Status: Chronic Assessment and Plan: Accu-Cheks, sliding scale insulin and Lantus (6) HLD (hyperlipidemia): Qualifiers: Hyperlipidemia type: unspecified Qualified Code(s): E78.5 - Hyperlipidemia, unspecified Code(s): E78.5 - Hyperlipidemia, unspecified Status: Chronic Assessment and Plan: continue atorvastatin (7) CAD (coronary artery disease): Code(s): I25.10 - Atherosclerotic heart disease of [place] coronary artery without angina pectoris Status: Acute Assessment and Plan: patient does have an extensive cardiac history, with recent in stent thrombosis on 06/26/2020 status post successful PCI involving extraction thrombectomy - continue carvedilol, Brilinta, rosuvastatin, losartan (8) CHF (congestive heart failure): Code(s): I50.9 - Heart failure, unspecified Status: Acute Assessment and Plan: 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 - continue medications as above (9) DVT prophylaxis: Code(s): Z29.9 - Encounter for prophylactic measures, unspecified Status: Acute Assessment and Plan: heparin subcu Additional Plan discussed with and updated with patient's condition and plan of care. I answered all questions code status: Full code critical care time spent: 31 minutes Due to a high probability of clinically significant, life threatening deterioration, the patient required my highest level of preparedness to intervene emergently and I personally spent this critical care time directly and personally managing the patient. This critical care time included obtaining a history; examining the patient; pulse oximetry; ordering and rev
--- NOTE | 2020-08-14 13:19 | PM.IMPN ---
Progress Note: A&P Assessment and Plan (1) CHF (congestive heart failure): Code(s): I50.9 - Heart failure, unspecified Status: Acute Assessment and Plan: The patient is going for dialysis today he is currently on a BiPAP. I will get some ABGs. Continue with Coreg. Continue Lasix. 08/14/20 13:19Patient is a 55-year-old male with history of end-stage renal disease on hemodialysis patient was recently admitted and had a cardiac arrest he was discharged home July 26 he was doing reasonably well until on August 12 patient became short of breath and was brought to the emergency department via EMS, patient was volume overload with flash pulmonary edema as he had missed his dialysis that day, was admitted in IMU and while having dialysis his symptoms worsen he became quite hypoxic and unit operator was called and patient was intubated patient remained intubated and had his scheduled dialysis, upon arrival patient blood pressure was extremely elevated he was placed on BiPAP is started on nitro drip and continue his home regimen Coreg, losartan and lasix, and patient blood pressure was trending down, however early this morning on 08/14 patient extubated himself and currently patient is out of ICU on the medical floor and on room air patient clinically stable he denies any complaint of shortness of breath, chest pain palpitation fever or chills, I communicated with Dr. Collins patient will have a dialysis tomorrow and reassess the patient and may discharge him tomorrow. (2) Hypertensive emergency: Code(s): I16.1 - Hypertensive emergency Status: Acute Assessment and Plan: Patient was on a nitro drip. I did stop that as his blood pressure is coming down. Continue with his Coreg, losartan, and Lasix (3) Acute and chronic respiratory failure with hypoxia: Code(s): J96.21 - Acute and chronic respiratory failure with hypoxia Status: Acute Assessment and Plan: patient is currently on a BiPAP machine 30/05. Will get ABGs. Patient needs dialysis. And will be going she here shortly. (4) Type 1 diabetes mellitus: Qualifiers: Diabetes mellitus complication status: with kidney complications Diabetes mellitus complication detail: with chronic kidney disease Chronic kidney disease stage: on chronic dialysis Qualified Code(s): E10.22 - Type 1 diabetes mellitus with diabetic chronic kidney disease; N18.6 - End stage renal disease; Z99.2 - Dependence on renal dialysis Code(s): E10.9 - Type 1 diabetes mellitus without complications Status: Chronic Assessment and Plan: Continue with patient's Lantus and do sliding scale insulin. last A1c was 7.6 on 07/23/2020 (5) End-stage renal disease on hemodialysis: Code(s): N18.6 - End stage renal disease; Z99.2 - Dependence on renal dialysis Status: Acute Assessment and Plan: Patient has dialysis on Monday. Patient did not have dialysis today is going to have dialysis here soon. (6) Depression: Qualifiers: Depression Type: major depressive disorder Major depression recurrence: recurrent Active/Remission status: currently active Major depression episode severity: moderate Qualified Code(s): F33.1 - Major depressive disorder, recurrent, moderate Code(s): F32.9 - Major depressive disorder, single episode, unspecified Status: Acute Assessment and Plan: Continue with Zoloft. (7) HTN (hypertension): Code(s): I10 - Essential (primary) hypertension Status: Acute Assessment and Plan: P.r.n. hydralazine. Continue with Coreg, losartan, and Lasix. (8) HLD (hyperlipidemia): Qualifiers: Hyperlipidemia type: unspecified Qualified Code(s): E78.5 - Hyperlipidemia, unspecified Code(s): E78.5 - Hyperlipidemia, unspecified Status: Chronic Assessment and Plan: Continue with Crestor. (9) CAD (coronary pauline
--- NOTE | 2020-08-14 15:03 | PM.PNNEP ---
Progress Note: A&P Assessment and Plan (1) ESRD (end stage renal disease): Code(s): N18.6 - End stage renal disease Status: Acute Assessment and Plan: HD tomorrow and eventually transition to M/W/F next week follow electrolytes, volume status, and clearance (2) Acute respiratory failure: Code(s): J96.00 - Acute respiratory failure, unspecified whether with hypoxia or hypercapnia Status: Acute Assessment and Plan: resolved s/p self extubation due to HTN and pulmonary edema follow respiratory status (3) Pulmonary edema: Code(s): J81.1 - Chronic pulmonary edema Status: Acute Assessment and Plan: as noted by CXR on admission s/p HD and DUF to facilitate significant fluid removal/ultrafiltration improved (if no resovled) (4) Hypertensive urgency: Code(s): I16.0 - Hypertensive urgency Status: Acute Assessment and Plan: doing better off nitro gtt follow trend of hemodynamics (5) CHF (congestive heart failure): Qualifiers: Heart failure type: combined systolic and diastolic Heart failure chronicity: acute on chronic Qualified Code(s): I50.43 - Acute on chronic combined systolic (congestive) and diastolic (congestive) heart failure Code(s): I50.9 - Heart failure, unspecified Status: Acute Assessment and Plan: better compensated at this time no acute intervention needed (6) Diabetes: Qualifiers: Diabetes mellitus complication detail: with other circulatory complications Diabetes mellitus complication status: with circulatory complication Diabetes mellitus type: type 1 Qualified Code(s): E10.59 - Type 1 diabetes mellitus with other circulatory complications Code(s): E11.9 - Type 2 diabetes mellitus without complications Status: Acute Assessment and Plan: follow accuchecks on SSI Will contine to follow. Subjective Date/time seen: 08/14/20 15:03 Self extubated himself earlier this AM and wanted to leave AMA; transferred to the floor and also wanted to leave AMA but eventually changed his mind; no other acute issues or problems to report; respiratory status seems stable at this time. Exam Narrative: Exam Narrative: General: WD/WN male in NAD Heart: normal S1 and S2; no rub Lungs: clear but decreased at bases Abdomen: soft, nontender, nondistended, positive bowel sounds Extremities: no cyanosis or clubbing; no edema Skin: warm and dry Objective Data Vital Signs Vital Signs: Vital Signs Temp Pulse Resp BP Pulse Ox 08/14/20 12:21 72 08/14/20 09:00 77 20 105/54 L 92 08/14/20 08:00 36.7 C 75 15 128/68 93 08/14/20 07:21 72 17 08/14/20 06:25 88 L 08/14/20 06:09 70 16 08/14/20 06:08 69 15 94 08/14/20 06:00 69 17 130/58 L 94 08/14/20 05:19 68 15 95 08/14/20 05:18 70 15 08/14/20 04:00 36.4 C L 73 17 135/56 L 95 08/14/20 03:46 75 20 08/14/20 03:03 78 21 H 08/14/20 02:43 83 27 H 129/64 95 08/14/20 02:29 83 15 08/14/20 02:01 79 16 08/14/20 02:00 80 17 127/54 L 100 08/14/20 01:49 79 99 08/14/20 01:33 83 16 08/14/20 00:00 80 08/13/20 23:50 36.8 C 81 16 89/58 L 100 08/13/20 23:16 83 16 99 08/13/20 23:15 83 16 96/58 L 97 08/13/20 23:10 80/46 L 08/13/20 23:06 85 16 08/13/20 23:04 85 16 83/58 L 100 08/13/20 22:59 85 100 08/13/20 22:45 87 16 82/57 L 97 08/13/20 22:30 88 16 75/54 L 96 08/13/20 22:18 87 16 08/13/20 22:00 87 16 91/58 L 99 08/13/20 21:01 81 16 105/60 99 08/13/20 20:41 81 98 08/13/20 20:31 82 16 98 08/13/20 20:01 79 16 104/57 L 99 08/13/20 20:00 78 99 08/13/20 19:30 36.8 C 77 16 102/49 L 100 08/13/20 19:16 73 16 104/55 L 100 08/13/20 19:01 70 16 130/65 100 10/01/20 18:38 36.7 C 71 16 138/69 08/13/20 18:
--- NOTE | 2020-08-14 16:15 | PC.NURSE ---
Blood glucose 527. Called Dr. Ibarra and orders received.
[2020-08-14 16:20] LABS: Glucose Point of Care > 500 (65-105)
[2020-08-14] MEDS: INSULIN GLARGINE (*BKC) 100 UNITS/ML 10 UNITS SUB-Q (16:39)
[2020-08-14] MEDS: INSULIN ASPART (*BKC) 100 UNITS/ML 7 UNITS SUB-Q (16:40)
[2020-08-14 21:32] LABS: Glucose Point of Care 337 (65-105)
[2020-08-15] VITALS (21 sets, daily range): BP systolic 132–190; BP diastolic 51–85; PULSE 73–88; RESP 12–16; TEMP 36.5–37; O2SAT 97
[2020-08-15] MEDS: HYDROcodone/acetaminophen (*CRX) 5-325 MG TABLET 1 TAB PO ×3 (01:34→12:51)
[2020-08-15] MEDS: carvediloL 25 MG TABLET PO ×2 (01:35→13:45)
[2020-08-15] MEDS: LORazepam (*CRX) 1 MG TABLET PO (05:54)
[2020-08-15 05:58] LABS: Hematocrit 28.1 % (42.0-52.0); Hemoglobin 9.3 g/dL (14.0-18.0); Mean Corpuscular HGB Conc 33.1 g/dl (32-36); Mean Corpuscular Volume 93.7 fl (80-100); Mean Platelet Volume 10.7 fl (7.4-10.4); Platelet Count Result 393 k/mm3 (150-375); White Blood Count 9.2 K/mm3 (4.5-10.0)
[2020-08-15 06:18] LABS: Anion Gap 22 mmol/L (8-16); Blood Urea Nitrogen 79 mg/dL (9-20); Calcium 9.4 mg/dL (8.4-10.2); Carbon Dioxide 26 mmol/L (22-30); Chloride 88 mmol/L (98-107); Estimated CRCL calculation 7 ml/min; Estimated Glomerular Filt Rate 6; Glucose 328 mg/dL (75-110); Magnesium 2.7 mg/dL (1.6-2.3); Phosphorus 8.2 mg/dL (2.5-4.5); Potassium 4.1 mmol/L (3.4-5.0); Sodium 136 mmol/L (137-145)
[2020-08-15] MEDS: INSULIN ASPART (*BKC) 100 UNITS/ML SUB-Q (07:47)
[2020-08-15] MEDS: INSULIN GLARGINE (*BKC) 100 UNITS/ML 12 UNITS SUB-Q (07:49)
[2020-08-15 07:57] LABS: Glucose Point of Care 278 (65-105)
--- NOTE | 2020-08-15 08:00 | PC.NURSE ---
To dialysis via bed with staff. Handoff to Riki chief resource officer.
--- NOTE | 2020-08-15 10:57 | PM.PNNEP ---
Progress Note: A&P Assessment and Plan (1) ESRD (end stage renal disease): Code(s): N18.6 - End stage renal disease Status: Acute Assessment and Plan: HD today and eventually transition to M/W/F next week follow electrolytes, volume status, and clearance (2) Acute respiratory failure: Code(s): J96.00 - Acute respiratory failure, unspecified whether with hypoxia or hypercapnia Status: Acute Assessment and Plan: resolved s/p self extubation due to HTN and pulmonary edema follow respiratory status (3) Pulmonary edema: Code(s): J81.1 - Chronic pulmonary edema Status: Acute Assessment and Plan: as noted by CXR on admission s/p HD and DUF to facilitate significant fluid removal/ultrafiltration improved (if no resovled) (4) Hypertensive urgency: Code(s): I16.0 - Hypertensive urgency Status: Acute Assessment and Plan: doing better off nitro gtt back on home medications follow trend of hemodynamics (5) CHF (congestive heart failure): Qualifiers: Heart failure chronicity: acute on chronic Heart failure type: combined systolic and diastolic Qualified Code(s): I50.43 - Acute on chronic combined systolic (congestive) and diastolic (congestive) heart failure Code(s): I50.9 - Heart failure, unspecified Status: Acute Assessment and Plan: better compensated at this time no acute intervention needed (6) Diabetes: Qualifiers: Diabetes mellitus complication detail: with other circulatory complications Diabetes mellitus complication status: with circulatory complication Diabetes mellitus type: type 1 Qualified Code(s): E10.59 - Type 1 diabetes mellitus with other circulatory complications Code(s): E11.9 - Type 2 diabetes mellitus without complications Status: Acute Assessment and Plan: follow accuchecks on SSI Will contine to follow - not opposed to discharge today after dialysis. Subjective Date/time seen: 08/15/20 10:57 Tolerating dialysis treatment at the time of my visit (seen on HD at ~ 10:50AM); no apparent distress voiced at this time; breathing and blood pressure are stable; no events overnight or earlier this AM. Exam Narrative: Exam Narrative: General: WD/WN male in NAD Heart: normal S1 and S2; no rub Lungs: clear anteriorly Abdomen: soft, nontender, nondistended, positive bowel sounds Extremities: no cyanosis or clubbing; no edema Skin: warm and intact Objective Data Vital Signs Vital Signs: Vital Signs Temp Pulse Resp BP Pulse Ox 08/15/20 10:45 82 155/76 H 08/15/20 10:30 76 152/78 H 08/15/20 10:15 77 160/72 H 08/15/20 10:00 79 132/72 08/15/20 09:45 80 169/63 H 08/15/20 09:30 78 163/83 H 08/15/20 09:15 81 159/82 H 08/15/20 09:00 78 163/80 H 08/15/20 08:45 78 171/74 H 08/15/20 08:33 76 163/74 H 08/15/20 08:25 36.7 C 78 12 168/78 H 08/15/20 06:00 36.6 C 73 16 190/75 H 97 08/14/20 22:15 36.7 C 78 16 178/76 H 98 08/14/20 15:16 37.7 C H 56 L 17 134/67 93 08/14/20 12:21 72 Intake/Output Intake/Output: Intake & Output 08/12/20 08/13/20 08/14/20 08/15/20 23:59 23:59 23:59 23:59 Intake Total 426 922 4966 1220 Output Total 3000 3202 100 Balance -2900 -2802 1895 1220 Meds/Results Medications: Active Medications Generic Name Dose Route Start Last Admin Trade Name Freq PRN Reason Stop Dose Admin Hydrocodone Bitart/Acetaminophen 1 tab 08/12/20 13:49 08/15/20 05:53 [place] 5-325 Mg PO 1 tab Q4H PRN Administration Pain Rated 4-6 Albuterol 1 puff 08/12/20 13:49 Proventil Hfa INHALATION QID PRN Shortness Of Breath Or Wheezing Aspirin 81 mg 08/13/20 09:00 08/14/20 09:08 Aspirin Ec PO 81 mg DAILY MARTHA Administration Atorvastatin Calcium 40 mg 08/13/20 09:00 08/14/20 09:08 Lipitor PO 40 mg
[2020-08-15] MEDS: EPOETIN ALFA-EPBX 10,000 UNITS/ML VIAL 10000 UNITS IV PUSH (11:35)
--- NOTE | 2020-08-15 11:37 | PM.DS ---
DS: Admitting Diagnosis Admitting Diagnosis Admitting Diagnosis: ACUTE RESPIRATORY FAILURE,PULMONARY EDEMA DS: Discharge Diagnosis Discharge Diagnosis (1) CHF (congestive heart failure): Code(s): I50.9 - Heart failure, unspecified Status: Acute Assessment and Plan: The patient is going for dialysis today he is currently on a BiPAP. I will get some ABGs. Continue with Coreg. Continue Lasix. 08/14/20 13:19Patient is a 55-year-old male with history of end-stage renal disease on hemodialysis patient was recently admitted and had a cardiac arrest he was discharged home July 26 he was doing reasonably well until on August 12 patient became short of breath and was brought to the emergency department via EMS, patient was volume overload with flash pulmonary edema as he had missed his dialysis that day, was admitted in IMU and while having dialysis his symptoms worsen he became quite hypoxic and ornamental metalwork designer was called and patient was intubated patient remained intubated and had his scheduled dialysis, upon arrival patient blood pressure was extremely elevated he was placed on BiPAP is started on nitro drip and continue his home regimen Coreg, losartan and lasix, and patient blood pressure was trending down, however early this morning on 08/14 patient extubated himself and currently patient is out of ICU on the medical floor and on room air patient clinically stable he denies any complaint of shortness of breath, chest pain palpitation fever or chills, I communicated with Dr. Collins patient will have a dialysis tomorrow and reassess the patient and may discharge him tomorrow. (2) Hypertensive emergency: Code(s): I16.1 - Hypertensive emergency Status: Acute Assessment and Plan: Patient was on a nitro drip. I did stop that as his blood pressure is coming down. Continue with his Coreg, losartan, and Lasix (3) Acute and chronic respiratory failure with hypoxia: Code(s): J96.21 - Acute and chronic respiratory failure with hypoxia Status: Acute Assessment and Plan: patient is currently on a BiPAP machine 30/05. Will get ABGs. Patient needs dialysis. And will be going she here shortly. (4) Type 1 diabetes mellitus: Qualifiers: Diabetes mellitus complication status: with kidney complications Diabetes mellitus complication detail: with chronic kidney disease Chronic kidney disease stage: on chronic dialysis Qualified Code(s): E10.22 - Type 1 diabetes mellitus with diabetic chronic kidney disease; N18.6 - End stage renal disease; Z99.2 - Dependence on renal dialysis Code(s): E10.9 - Type 1 diabetes mellitus without complications Status: Chronic Assessment and Plan: Continue with patient's Lantus and do sliding scale insulin. last A1c was 7.6 on 07/23/2020 (5) End-stage renal disease on hemodialysis: Code(s): N18.6 - End stage renal disease; Z99.2 - Dependence on renal dialysis Status: Acute Assessment and Plan: Patient has dialysis on Monday. Patient did not have dialysis today is going to have dialysis here soon. (6) Depression: Qualifiers: Depression Type: major depressive disorder Major depression recurrence: recurrent Active/Remission status: currently active Major depression episode severity: moderate Qualified Code(s): F33.1 - Major depressive disorder, recurrent, moderate Code(s): F32.9 - Major depressive disorder, single episode, unspecified Status: Acute Assessment and Plan: Continue with Zoloft. (7) HTN (hypertension): Code(s): I10 - Essential (primary) hypertension Status: Acute Assessment and Plan: P.r.n. hydralazine. Continue with Coreg, losartan, and Lasix. (8) HLD (hyperlipidemia): Qualifiers: Hyperlipidemia type: unspecified Qualified Code(s): E78.5 - Hyperlipidemia, unspecified Code(s): E78.5 - Hyperlipid
[2020-08-15] MEDS: ASPIRIN 81 MG ENTERIC TABLET PO (13:04)
[2020-08-15] MEDS: NICOTINE (*PBKC) 21 MG PATCH 1 PATCH TRANSDERM (13:05)
[2020-08-15] MEDS: CHOLECALCIFEROL 1,000 UNITS TABLET 2000 UNITS PO (13:05)
[2020-08-15] MEDS: ATORVASTATIN 40 MG TABLET PO (13:05)
[2020-08-15] MEDS: SERTRALINE HCL 25 MG TABLET PO (13:06)
[2020-08-15] MEDS: VITAMIN B CMPLX/VIT C/FOLIC AC 1 CAPSULE 1 CAP PO (13:06)
[2020-08-15] MEDS: PANTOPRAZOLE SODIUM IV 40 MG VIAL IV PUSH (13:06)
[2020-08-15] MEDS: TICAGRELOR 90 MG TABLET PO (13:06)
[2020-08-15] MEDS: HEPARIN SODIUM 5,000 UNITS/ML VIAL 5000 UNITS SUB-Q (13:09)
[2020-08-15 13:18] LABS: Glucose Point of Care 140 (65-105)
--- NOTE | 2020-08-15 13:55 | PC.NURSE ---
Patient returned from dialysis via bed with staff. Settled in room and lunch tray given to patient.
== END 2020-08-15 13:55 | disposition home or self-care (01) | DRG 208 ==
LOC: ANHED 09:51 → ANHIMU 12:00 → ANHICU 18:32 → ANH2MED 08-14 11:21
PROVIDERS: Internal Medicine; Nurse Practitioner; Admitting Provider Family Medicine; Emergency Provider Emergency Medicine; PCP Emergency Medicine; Visit Provider Family Medicine
DX: J96.21 Acute and chronic respiratory failure with hypoxia (principal); N18.6 End stage renal disease; I50.43 Acute on chronic combined systolic (congestive) and diastolic (congestive) heart failure; I13.2 Hypertensive heart and chronic kidney disease with heart failure and with stage 5 chronic kidney disease, or end stage renal disease; E10.21 Type 1 diabetes mellitus with diabetic nephropathy; E78.5 Hyperlipidemia, unspecified; I25.10 Atherosclerotic heart disease of native coronary artery without angina pectoris; E87.5 Hyperkalemia; F41.8 Other specified anxiety disorders; D64.9 Anemia, unspecified; I25.2 Old myocardial infarction
CPT/HCPCS: 31500; 36415; 36600; 71045; 80048; 80053; 82375; 82805; 83050; 83690; 83735; 83880; 84100; 84443; 84484; 85025; 85027; 85610; 85730; 87040; 93005; 94002; 94003; 94640; 96365; 96375; 96376; 99291; A9270; C9113; G0257; J0360; J1170; J1644; J1815; J2060; J2250; J2704; J3010; J7030; P9047; Q5106

== ENCOUNTER 2020-09-14 08:53 | Inpatient (IN) | payer MEDICARE, MEDICAID, SELFPAY ==
[2020-09-14] VITALS (37 sets, daily range): BP systolic 72–226; BP diastolic 15–138; PULSE 76–113; RESP 18–35; TEMP 35.8–37; O2SAT 79–100
--- NOTE | ~2020-09-14 | XR_ITS ---
EXAMINATION: XR chest 1V portable INDICATION: Respiratory failure TECHNIQUE: Portable AP chest at 0546 hours COMPARISON: 09/14/2020 FINDINGS: The endotracheal tube ends approximately 6.4 cm above the luciano. The nasogastric tube is i n the stomach. There is stable cardiomegaly. Perihilar and upper lung zone opacities persist but have slightly improved. There is no pleural effusion or pneumothorax. IMPRESSION: 1. Perihilar and upper lung zone opacities with slight improvement, consistent with pulmonary edema a nd/or pneumonia. 2. Stable cardiomegaly. Reviewed, dictated and finalized at location A. RISK SPECIALIST IMPRESSION: 1. Perihilar and upper lung zone opacities with slight improvement, consistent with pulmonary edema and/or pneumonia. 2. Stable cardiomegaly.
--- NOTE | ~2020-09-14 | XR_ITS ---
EXAMINATION: XR chest ET placement INDICATION: Shortness of breath and unresponsive TECHNIQUE: Portable AP chest at 0923 hours COMPARISON: 08/15/2020 FINDINGS: The endotracheal tube ends approximately 5.7 cm above the luciano. The nasogastric tube is f ollowed as far as the stomach. Its tip is beyond the inferior margin of the radiograph. Cardiomegaly is noted. There are perihilar opacities as well as peripheral opacities in the upper lung zones. Ashley nary artery stent is noted. IMPRESSION: 1. Endotracheal tube approximately 5.7 cm above the luciano. 2. Cardiomegaly. 3. Perihilar and upper lung zone opacities which could reflect pulmonary edema and/or pneumonia. Reviewed, dictated and finalized at location A. ROPOLOGY INSTRUCTOR
--- NOTE | ~2020-09-14 | XR_ITS ---
EXAMINATION: XR abdomen NG/feed tube insert INDICATION: Nasogastric tube placement TECHNIQUE: Portable AP KUB-NG at 0924 hours COMPARISON: 08/12/2020 FINDINGS: The tip of nasogastric tube is in the stomach. The proximal side port is at the gastroesoph ageal junction. Cardiomegaly is noted. IMPRESSION: 1. Nasogastric tube in the stomach with proximal side port near the gastroesophageal junction. Tube c an be safely advanced 2 to 3 cm. Reviewed, dictated and finalized at location A. ORATIVE ART EMBALMER IMPRESSION: 1. Nasogastric tube in the stomach with proximal side port near the gastroesoph ageal junction. Tube can be safely advanced 2 to 3 cm.
--- NOTE | 2020-09-14 09:06 | ECG_ITS ---
Measurements Intervals [place] Rate: 109 P: OK: 0 QRS: 75 QRSD: 94 T: 91 QT: 333 QTc: 449 Interpretive Statements SINUS TACHYCARDIA BORDERLINE R WAVE PROGRESSION, ANTERIOR LEADS BORDERLINE ST-T WAVE ABNORMALITY- LAT/HIGH LAT LEADS ABNORMAL ECG Electronically Signed On 09-14-2020 9:27:04 SOFTWARE RELEASE ENGINEER by Edmond Elias D.O.
[2020-09-14] MEDS: MORPHINE SULFATE (*CRX) 4 MG/ML INJ (09:07)
[2020-09-14] MEDS: ONDANSETRON INJ 4 MG/2 ML VIAL (09:07)
[2020-09-14] MEDS: FUROSEMIDE INJ 40 MG/4 ML VIAL (09:07)
--- NOTE | 2020-09-14 09:07 | PC.NURSE ---
EDP at bedside with verbal orders for medications. 40mg lasix 4mg zofran 4mg morphine EDP preparing to intubate patient: 7.5 tube at 23 at the lip at 0912
[2020-09-14] MEDS: RAPID SEQUENCE INTUBATION KIT 1 EACH (09:10)
--- NOTE | 2020-09-14 09:18 | ED.SOB ---
HPI - SOB/Dyspnea General Chief Complaint: Shortness of Breath/Dyspnea Stated Complaint: RESP DISTRESS Time Seen by Provider: 09/14/20 09:16 Source: family and EMS Mode of arrival: EMS History of Present Illness HPI Narrative: 55 years old white male brought to the emergency room by ambulance because of severe shortness of breath which started in the middle of the night. The told me that patient woke up in the middle of the night complaining of shortness of breath, and told her to not call ENT at that time. The called EMT 20 minutes prior to arrival because patient was not able to talk and unable to breathe. Patient scheduled for hemodialysis this morning. History of multiple intubation for similar symptoms. Patient arrived to the ED on BiPAP. Related Data Home Medications Medication Instructions Recorded Confirmed Lantus Solostar U-100 Insulin 10 unit SUBCUT HS 02/05/20 08/12/20 carvedilol 25 mg PO BID 02/05/20 08/12/20 furosemide 80 mg PO BID 02/05/20 08/12/20 insulin lispro [Humalog KwikPen See Rx Instructions .ROUTE .COMPLEX 02/05/20 08/12/20 Insulin] nitroglycerin 0.4 mg SUBLINGUAL Q5MIN PRN 02/05/20 08/12/20 pantoprazole 40 mg PO Q12H 02/05/20 08/12/20 losartan 100 mg PO QPM 04/10/20 08/12/20 Lantus Solostar U-100 Insulin 12 unit SUBCUT QAM 04/11/20 08/12/20 calcium carbonate [Tums] 200 mg PO PRN PRN 04/11/20 08/12/20 Brilinta 90 mg PO Q12H 07/02/20 08/12/20 aspirin 81 mg PO DAILY 07/02/20 08/12/20 lorazepam [Ativan] 1 mg PO BID PRN 07/02/20 08/12/20 Dang-Nilsa 1 tablet PO DAILY 07/23/20 08/12/20 lanthanum 1,000 mg PO TIDWM 07/23/20 08/12/20 nicotine 1 patch TRANSDERMAL DAILY 07/23/20 08/12/20 cholecalciferol (vitamin D3) 50 mcg PO DAILY 08/12/20 08/12/20 sertraline 25 mg PO DAILY 08/12/20 08/12/20 Allergies Allergy/AdvReac Type Severity Reaction Status Date / Time scopolamine Allergy Severe Unresponsiv Verified 09/14/20 09:25 e Review of Systems Review of Systems: ROS unobtainable: Yes unobtainable due to medical condition [facility] Past Medical History Medical History Acute blood loss anemia Anxiety Benign prostatic hyperplasia CHF (congestive heart failure) Chronic anemia Chronic kidney disease requiring chronic dialysis Coronary artery disease With non STEMI in December 2019, with stent placed to the LAD. Depression with anxiety End-stage renal disease on hemodialysis Flash pulmonary edema Gastric ulcer GERD (gastroesophageal reflux disease) Hyperkalemia Hypertension Hypertension Renal osteodystrophy Seizure Secondary to hypoglycemia. STEMI (ST elevation myocardial infarction) Tobacco dependence Type 1 diabetes mellitus Diagnosed at the age of 10. Complicated by retinopathy, nephropathy, and neuropathy. Hemoglobin A1c was 8.1% in December 2019. Vitamin D deficiency disease Surgical History Surgical History H/O endoscopy June 27, 2020 H/O heart artery stent LAD December of 2019June 26, 2020 left coronary Angiography the myectomy of LAD and stent thrombosis PTCA and stenting of LAD distal the previous devise a History of spinal surgery Neurostimulator in place. Hx of BKA Right leg S/P dialysis catheter insertion left forearm Status post below knee amputation of right lower extremity December 02, 2019 at [facility]. Status post cataract extraction Status post hemorrhoidectomy Family History Family History Father Hypertension Sibling Multiple myeloma Hypertension Mother Acute myelogenous leukemia Heart disease Social History Social History Social History: Mr. Corley lives at home in [place] with his and daughter. He is on disability. 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 He designates his , Rosana, as his surrogate decision maker
[2020-09-14 09:19] LABS: Basophils Absolute Auto 0.1 K/mm3 (0.0-0.1); Basophils Percent Auto 0.7 % (0.2-1.2); Eosinophils Absolute Auto 0.7 K/mm3 (0-0.3); Eosinophils Percent Auto 4.4 % (0-4.4); Hematocrit 35.3 % (42.0-52.0); Hemoglobin 10.7 g/dL (14.0-18.0); Immature Granulocyte Absolute 0.07 K/mm3 (0.00-0.031); Immature Granulocyte Percent A 0.4 % (0-0.5); Lymphocytes Absolute Auto 3.32 K/mm3 (0.9-3.2); Lymphocytes Percent Auto 20.2 % (18.3-44.2); Mean Corpuscular HGB Conc 30.3 g/dl (32-36); Mean Corpuscular Hemoglobin 29.7 pg (26-34); Mean Corpuscular Volume 98.1 fl (80-100); Mean Platelet Volume 9.9 fl (7.4-10.4); Monocytes Absolute Auto 1.5 K/mm3 (0.1-0.6); Monocytes Percent Auto 9.4 % (2.6-8.5); Neutrophils Absolute Auto 10.7 K/mm3 (1.3-6.7); Neutrophils Percent Auto 64.9 % (45.5-73.1); Platelet Count Result 534 k/mm3 (150-375); Red Cell Distribution Width 16.9 % (11.5-14.5); White Blood Count 16.4 K/mm3 (4.5-10.0)
--- NOTE | 2020-09-14 09:23 | PC.NURSE ---
EMS gave Decadron and albuterol in route with the C-Pap Machine.
[2020-09-14 09:31] LABS: Alveolar/Arterial O2 Gradient 185.2 mmHg; Base Excess ABG -8.3 mEq/l (+/-2.0); Fractional Inspired Oxygen 100 %; HCO3 ABG 21.2 mEq/l (22.0-26.0); Oxygen Content ABG 16.3 %vol (16.0-22.0); Oxygen Saturation ABG 99.8 % (95.0-100.0); Oxyhemoglobin 96.5 % THb (90.0-100.0); PO2 ABG 462.8 mmHg (80.0-100.0); PO2 FiO2 Ratio Arterial Blood 4.63 %; Total Hemoglobin 11.1 g/dL (12.0-18.0)
[2020-09-14 09:32] LABS: Arterial Blood Gas Ventilator rate 18 /MIN; Device VENTILATOR; Modified Allen's Test Pass; Site Drawn LEFT RADIAL; pH ABG 7.132 (7.350-7.450)
[2020-09-14] MEDS: hydrALAZINE HCL 20 MG/ML VIAL 10 MG IV PUSH (09:32)
[2020-09-14 09:33] LABS: Arterial Blood Gas PEEP 5 cmH2O; Arterial Blood Gas Tidal Volume 450 ml; Arterial Blood Gas Vent Mode CMV
[2020-09-14 09:35] LABS: Anion Gap 22 mmol/L (8-16); Blood Urea Nitrogen 71 mg/dL (9-20); Carbon Dioxide 23 mmol/L (22-30); Chloride 98 mmol/L (98-107); Estimated CRCL calculation 7 ml/min; Estimated Glomerular Filt Rate 5; Glucose 171 mg/dL (75-110); Potassium 5.2 mmol/L (3.4-5.0); Sodium 143 mmol/L (137-145)
[2020-09-14 10:00] LABS: Add Urine Microscopic? YES; Appearance Urine Clear (Clear); Bilirubin Urine Negative (Negative); Blood Urine Negative (Negative); Color Urine Yellow (Yellow); Glucose Urine UA 3+ mg/dL (Negative); Ketones Urine Negative (Negative); Leukocyte Esterase Ur Negative LEU/UL (Negative); Nitrate Urine Negative (Negative); Protein Urine 2+ mg/dL (Negative); Squamous Epithelial Cell Urine Rare /hpf (Few); Urobilinogen Urine Negative mg/dL (<2.0); WBC Urine 0-3 /hpf
[2020-09-14 10:17] LABS: Lactic Acid Reflex 1.2 mmol/L (0.7-2.1)
--- NOTE | 2020-09-14 10:50 | ADMGEN ---
This patient, Ish Corley, was admitted to Intensive Care Unit-12. Patient/family oriented to hospital policies and general routines including ID bracelet, bed and alarms, visiting hours, pain management, procedures, bathroom and other care routines, personal items, smoking policy, room service/diet, and visiting hours. Information on how to activate the Rapid Response Team has been discussed. Patient/Family are encouraged to report perceived risks to care and to ask questions if they do not understand what they are told or what they should do.
[2020-09-14] MEDS: PROPOFOL IV EMULSION 100 ML 6.06 MG IV CONT (11:26)
--- NOTE | 2020-09-14 11:45 | WPDCNINT ---
Assessment and Plan Assessment and plan (1) Acute respiratory failure with hypoxia and hypercarbia: Code(s): J96.01 - Acute respiratory failure with hypoxia; J96.02 - Acute respiratory failure with hypercapnia Status: Acute Assessment and Plan: Acute Respiratory failure secondary to pulmonary edema although patient does have elevated white count, chest x-ray suggest pulmonary edema and the a acuity of symptoms for example starting in the middle of night, patient's history of similar presentation the past, I will hold antibiotics at this time. Cultures were sent and patient will be monitor plan for hemodialysis COVID-19 PCR sent PCXR reviewed and will repeat in am. repeat ABG now Low tidal volume ventilation strategy to prevent volutrauma Will attempt SBT when ready to wean. Bronchodilators (2) ESRD (end stage renal disease): Code(s): N18.6 - End stage renal disease Status: Acute Assessment and Plan: nephrology consulted for hemodialysis will give a dose of Kayexalate (3) Acute hyperkalemia: Code(s): E87.5 - Hyperkalemia Status: Acute Assessment and Plan: mild hyperkalemia with K 5.2 will give a dose of Kayexalate at this time patient will be dialyzed today (4) Hypertensive urgency: Code(s): I16.0 - Hypertensive urgency Status: Acute Assessment and Plan: improved now as patient is sedated. Patient also received hydralazine in the ER. Lopressor IV p.r.n. from my past experience with the patient patient tends to get hypotensive once adequately sedated and on dialysis Hence will hold scheduled medications unless patient is not adequately controlled (5) Pulmonary edema: Code(s): J81.1 - Chronic pulmonary edema Status: Acute Assessment and Plan: plan for hemodialysis (6) CAD (coronary artery disease): Code(s): I25.10 - Atherosclerotic heart disease of [place] coronary artery without angina pectoris Status: Acute Assessment and Plan: continue aspirin and Brilinta statin and beta-graciela (7) Suspected COVID-19 virus infection: Code(s): Z20.828 - Contact with and (suspected) exposure to other viral communicable diseases Status: Acute Assessment and Plan: COVID-19 suspected. SARS-CoV-2 PCR sent and results pending Patient is in Airborne, Droplet and Contact Isolation Additional Plan DVT prophylaxis - SCDs as patient has history of GI bleed Stress ulcer prophylaxis - Protonix Nutrition - NPO Code Status - Full Code Total Critical Care Time -32 minutes Due to a high probability of clinically significant, life threatening deterioration, the patient required my highest level of preparedness to intervene emergently and I personally spent this critical care time directly and personally managing the patient. This critical care time included obtaining a history; examining the patient; pulse oximetry; ordering and review of studies; arranging urgent treatment with development of a management plan; evaluation of patient's response to treatment; frequent reassessment; and discussions with other providers. It was exclusive of separately billable procedures and treating other patients and teaching time. Please see Assessment and Plan section and the rest of the note for further information on patient assessment and treatment Supervisor Coffee Consult Note Consult date: 09/14/20 Time Seen: 11:25 HPI: Ish Corley is a 55 year old male well known to this hospital due to multiple admissions in the past. Patient has history of end-stage renal disease, right BKA, coronary artery disease, hypertension, CHF, noncompliance and respiratory failure secondary to volume overload requiring intubation.. He was brought by EMS with severe shortness of breath which started in the middle of the night. per patient's patient woke up in the middle of the night complaining of shortness of breath. P
[2020-09-14 11:54] LABS: Alveolar/Arterial O2 Gradient 352.5 mmHg; Base Excess ABG -4.8 mEq/l (+/-2.0); Carboxyhemoglobin 1.9 % THb (0-2.0); Fractional Inspired Oxygen 60 %; HCO3 ABG 21.5 mEq/l (22.0-26.0); Methemoglobin ABG 0.1 %THb (0-1.5); Oxygen Content ABG 5.3 %vol (16.0-22.0); Oxyhemoglobin 35.1 % THb (90.0-100.0); PCO2 ABG 45.1 mmHg (35.0-45.0); PO2 FiO2 Ratio Arterial Blood 0.43 %; Reduced Hemoglobin 62.9 %THb (0-5.0); Total Hemoglobin 10.7 g/dL (12.0-18.0); pH ABG 7.296 (7.350-7.450)
[2020-09-14 11:57] LABS: Device VENTILATOR; Oxygen Saturation ABG 40.8 % (95.0-100.0); PO2 ABG 25.7 mmHg (80.0-100.0); Site Drawn RIGHT BRACHIAL
[2020-09-14] MEDS: INSULIN ASPART (*BKC) 100 UNITS/ML SUB-Q ×2 (13:34→17:24)
[2020-09-14 13:50] LABS: Arterial Blood Gas PEEP 5 cmH2O; Arterial Blood Gas Tidal Volume 450 ml; Arterial Blood Gas Vent Mode CMV; Arterial Blood Gas Ventilator rate 18 /MIN
[2020-09-14] MEDS: ALBUMIN HUMAN 25% 12.5 GM/50ML 50 ML IVPB (14:40)
[2020-09-14] MEDS: SODIUM CHLORIDE 0.9% IV 1,000 ML 999 ML IV CONT (14:41)
[2020-09-14] MEDS: HEPARIN SODIUM 1,000 UNITS/ML VIAL 1000 UNITS IV PUSH (14:46)
[2020-09-14] MEDS: HEPARIN SODIUM 1,000 UNITS/ML VIAL 500 UNITS IV PUSH (14:47)
--- NOTE | 2020-09-14 15:39 | PM.CNNEP ---
Assessment and Plan Assessment and plan (1) Hypertensive urgency: Code(s): I16.0 - Hypertensive urgency Status: Acute Assessment and Plan: patient has extremely high blood pressure. Is hard to tease out whether the hypertension is because of volume overload or if the Hypertension is causing the pulmonary edema. Either way he needs blood pressure control and fluid removal. Dialysis is getting fluid off. His blood pressure was extremely high in the ER then he got some Hydralazine. The knee moved to the ICU and was intubated in given Propofol and now his blood pressure is only in the 90s. Dialysis is trying to get him through treatment but we are unable to take any fluid off right now. Sometimes just getting would pressure under control decreases the afterload and therefore the pulmonary edema. (2) Acute respiratory failure with hypoxia and hypercarbia: Code(s): J96.01 - Acute respiratory failure with hypoxia; J96.02 - Acute respiratory failure with hypercapnia Status: Acute Assessment and Plan: Patient has respiratory failure and is on the ventilator. Will try to wean the ventilator as quickly as possible. (3) Suspected COVID-19 virus infection: Code(s): Z20.828 - Contact with and (suspected) exposure to other viral communicable diseases Status: Acute Assessment and Plan: COVID-19 is pending (4) Acute hyperkalemia: Code(s): E87.5 - Hyperkalemia Status: Acute Assessment and Plan: Potassium is a little high at 5.2. Dialysis will take care of this. (5) Renal osteodystrophy: Code(s): N25.0 - Renal osteodystrophy Status: Acute Assessment and Plan: Will check a phosphorus level in the morning. This is almost always elevated in this patient. (6) Erythropoietin deficiency anemia: Code(s): D63.1 - Anemia in chronic kidney disease Status: Acute Assessment and Plan: Will give him Epogen starting Monday. I held off on it today because of his very high blood pressure in the ER (7) Diabetes: Qualifiers: Diabetes mellitus complication detail: with other circulatory complications Diabetes mellitus complication status: with circulatory complication Diabetes mellitus type: type 1 Qualified Code(s): E10.59 - Type 1 diabetes mellitus with other circulatory complications Code(s): E11.9 - Type 2 diabetes mellitus without complications Status: Acute Assessment and Plan: on Accu-Cheks and sliding-scale insulin (8) ESRD (end stage renal disease): Code(s): N18.6 - End stage renal disease Status: Acute Assessment and Plan: gets dialysis 3 times a week History of Present Illness Reason for Consult Consult date: 09/14/20 Chief Complaint Chief complaint: RESP DISTRESS History of Present Illness Narrative: Ish is a very pleasant gentleman who has multiple medical problems including end-stage renal disease on dialysis 3 times a week, congestive cardiomyopathy, severe hypertension, coronary disease, lower extremity peripheral vascular disease, chronic pain, renal osteodystrophy, anemia of chronic kidney disease, GERD, who went to dialysis on Monday and did pretty well. Over the weekend he apparently did okay but then became short of breath on Monday evening. He refused to go to the ER at that time. Apparently things worsen gradually overnight and so came to the ER hardly able to breathe at all. He was intubated and sedated and put in the ICU. his blood pressure was extremely high and so he receive some hydralazine. COVID-19 test was checked and is pending the patient cannot give a history Review of Systems Review of Systems: ROS unobtainable: Yes unobtainable due to medical condition PMFSH Past Medical History Medical History (Updated 09/14/20 @ 15:45 by Luke Huynh MD) Acute blood loss anemia Anxiety Benign prostatic hyperplasia CHF
--- NOTE | 2020-09-14 15:49 | PM.EVENT ---
Event Note Event Note Event Note: on dialysis. Blood pressure still low but at least it did go lower while on the machine. Will continue supportive care. He was seen at 3:30 p.m.
[2020-09-14] MEDS: SODIUM POLYSTYRENE SULFONONATE 15 GM/60 ML BTL 30 GM FEED TUBE (16:01)
[2020-09-14] MEDS: EPOETIN ALFA-EPBX 10,000 UNITS/ML VIAL 10000 UNITS IV PUSH (16:19)
[2020-09-14 17:38] LABS: Glucose Point of Care 266 (65-105)
[2020-09-14 17:38] LABS: Glucose Point of Care 202 (65-105)
--- NOTE | 2020-09-14 18:00 | PM.IMHP ---
H&P: HPI History of Present Illness Date/Time: 09/14/20 18:00 Chief complaint: Shortness of breath. Narrative: Ish Corley is a chronically ill 55-year-old male smoker with multiple medical problems including end-stage renal disease on hemodialysis, congestive heart failure, coronary artery disease, hypertension, type 1 diabetes mellitus, noncompliance, and several other comorbidities who presented to the emergency department earlier today via EMS from home with complaints of severe shortness of breath. He is well known to this hospital with frequent visits to the emergency department as well as hospitalizations, several times requiring intubation due to volume overload and flash pulmonary edema. At the time my evaluation he is sedated and intubated, however is responsive and will follow commands. In fact he will nod and shake his head appropriately to questions as well. According to the EMR he became acutely short of breath sometime early this morning but he told his not call 911 at that time. As the hours past he got increasingly short of breath and on arrival to the emergency department it sounds as though he was in respiratory extremis with an SpO2 of 79% on CPAP. Blood pressure at that time was 226/138. He was subsequently intubated and has now undergone dialysis as he was due for that today. He denies fever, cold and flu symptoms, cough chest pain, recent travel, and sick contacts. Review of Systems Review of Systems: Narrative: The patient was able to answer some questions by nodding or shaking his head however he is sedated and intubated and thus a full review of systems is unable to be obtained accurately. [facility] Past Medical History Medical History (Updated 09/14/20 @ 19:32 by Anai Balderas PA-C) Anxiety Benign prostatic hyperplasia Bradycardic cardiac arrest (~07/23/20) In the setting of severe hyperkalemia, acute pulmonary edema, and respiratory failure Chronic anemia Congestive heart failure Echocardiogram in August 2020 showed a mildly enlarged left ventricular chamber, severely reduced left ventricular systolic function with an estimated ejection fraction of 25 to 30%, moderately increased LV wall thickness, grade 2 diastolic dysfunction, severe aortic valve sclerosis, mild mitral, tricuspid, and pulmonic valve regurgitation, mild pulmonary hypertension with an estimated arterial pressure 43 mmHg, and areas of hypokinesis including the apex, inferior wall, anterior wall, inferoseptal wall, anterolateral wall, and anteroseptal wall. Coronary artery disease With non STEMI in December 2019, with stent placed to the LAD. Depression with anxiety End-stage renal disease on hemodialysis Gastric ulcer On endoscopy per Dr. Pacheco in June 2020. Gastroesophageal reflux disease Hypertension Hypertension Renal osteodystrophy Seizure Secondary to hypoglycemia. ST elevation myocardial infarction (STEMI) (~06/26/20) Secondary to abrupt stent thrombosis of the LAD. Tobacco dependence Type 1 diabetes mellitus Diagnosed at the age of 10. Complicated by retinopathy, nephropathy, and neuropathy. Hemoglobin A1c was 7.6% in July 2020. Vitamin D deficiency disease Surgical History Surgical History (Updated 09/14/20 @ 19:13 by Anai Balderas PA-C) History of endoscopy (~06/27/20) History of heart artery stent Stent in the LAD in December 2019. Patient had abrupt stent thrombosis of the previously placed stent to the LAD on June 26, 2020 left coronary with extraction thrombectomy and stenting distal to the original stent with upsizing of the original stent. History of right below knee amputation History of spinal surgery Neurostimulator in place. Status post below knee amputation of right lower extremity (~12/02/19) Performed [facility]. Status post cataract extraction Status post creation of arteriovenous fistula Left upper extremity. Status post hemorrhoidectomy Family History Family History (
[2020-09-14 19:58] LABS: SARS-CoV-2 RNA PCR Negative
[2020-09-14] MEDS: FENTANYL 2,500MCG/NS250ML(*CRX 2,500 MCG/250 ML BAG 20 MCG IV CONT (21:48)
[2020-09-14] MEDS: TICAGRELOR 90 MG TABLET PO (21:49)
[2020-09-14] MEDS: INSULIN GLARGINE (*BKC) 100 UNITS/ML 10 UNITS SUB-Q (21:49)
[2020-09-14] MEDS: PANTOPRAZOLE SODIUM IV 40 MG VIAL IV PUSH (21:50)
[2020-09-15] VITALS (18 sets, daily range): BP systolic 68–182; BP diastolic 34–88; PULSE 68–99; RESP 14–20; TEMP 35.6–36.4; O2SAT 96–100
[2020-09-15 05:17] LABS: Base Excess ABG 0.5 mEq/l (+/-2.0); Carboxyhemoglobin 0.5 % THb (0-2.0); Device VENTILATOR; Fractional Inspired Oxygen 50 %; HCO3 ABG 23.8 mEq/l (22.0-26.0); Methemoglobin ABG 0.3 %THb (0-1.5); Modified Allen's Test Pass; Oxygen Content ABG 16.1 %vol (16.0-22.0); Oxygen Saturation ABG 99.3 % (95.0-100.0); Oxyhemoglobin 98.2 % THb (90.0-100.0); PCO2 ABG 33.7 mmHg (35.0-45.0); PO2 ABG 174.6 mmHg (80.0-100.0); PO2 FiO2 Ratio Arterial Blood 3.49 %; Site Drawn RIGHT RADIAL; Total Hemoglobin 11.4 g/dL (12.0-18.0); pH ABG 7.467 (7.350-7.450)
[2020-09-15 05:18] LABS: Arterial Blood Gas PEEP 5 cmH2O; Arterial Blood Gas Tidal Volume 450 ml; Arterial Blood Gas Vent Mode CMV; Arterial Blood Gas Ventilator rate 18 /MIN
[2020-09-15 08:19] LABS: Basophils Absolute Auto 0.1 K/mm3 (0.0-0.1); Basophils Percent Auto 0.4 % (0.2-1.2); Eosinophils Percent Auto 0.3 % (0-4.4); Hematocrit 30.9 % (42.0-52.0); Hemoglobin 9.8 g/dL (14.0-18.0); Immature Granulocyte Percent A 1.4 % (0-0.5); Lymphocytes Absolute Auto 1.77 K/mm3 (0.9-3.2); Lymphocytes Percent Auto 12.1 % (18.3-44.2); Mean Corpuscular HGB Conc 31.7 g/dl (32-36); Mean Corpuscular Hemoglobin 29.7 pg (26-34); Mean Corpuscular Volume 93.6 fl (80-100); Mean Platelet Volume 9.9 fl (7.4-10.4); Monocytes Absolute Auto 1.3 K/mm3 (0.1-0.6); Monocytes Percent Auto 9.2 % (2.6-8.5); Neutrophils Absolute Auto 11.2 K/mm3 (1.3-6.7); Neutrophils Percent Auto 76.6 % (45.5-73.1); Platelet Count Result 466 k/mm3 (150-375); Red Cell Distribution Width 16.8 % (11.5-14.5); White Blood Count 14.6 K/mm3 (4.5-10.0)
[2020-09-15 08:33] LABS: Alanine Aminotransferase 17 U/L (4-50); Albumin Level 3.6 g/dL (3.5-5.1); Alkaline Phosphatase 82 U/L (38-126); Anion Gap 20 mmol/L (8-16); Aspartate Amino Transferase 21 U/L (17-59); Bilirubin,Total 0.4 mg/dL (0.2-1.3); Blood Urea Nitrogen 66 mg/dL (9-20); Calcium 9.1 mg/dL (8.4-10.2); Carbon Dioxide 26 mmol/L (22-30); Chloride 94 mmol/L (98-107); Estimated CRCL calculation 7 ml/min; Estimated Glomerular Filt Rate 6; Glucose 255 mg/dL (75-110); Magnesium 2.6 mg/dL (1.6-2.3); Phosphorus 10.7 mg/dL (2.5-4.5); Potassium 4.4 mmol/L (3.4-5.0); Sodium 140 mmol/L (137-145)
[2020-09-15 08:41] LABS: Alveolar/Arterial O2 Gradient 110.3 mmHg; Base Excess ABG -0.2 mEq/l (+/-2.0); Carboxyhemoglobin 0.5 % THb (0-2.0); Fractional Inspired Oxygen 40 %; Methemoglobin ABG 0.3 %THb (0-1.5); Oxygen Content ABG 14.4 %vol (16.0-22.0); Oxygen Saturation ABG 98.4 % (95.0-100.0); Oxyhemoglobin 97.2 % THb (90.0-100.0); PO2 ABG 125.5 mmHg (80.0-100.0); PO2 FiO2 Ratio Arterial Blood 3.14 %; Total Hemoglobin 10.4 g/dL (12.0-18.0); pH ABG 7.382 (7.350-7.450)
[2020-09-15 08:42] LABS: Arterial Blood Gas PEEP 5 cmH2O; Arterial Blood Gas Pressure Support 5 cmH2O; Arterial Blood Gas Vent Mode SPONTANEOUS; Device VENTILATOR; Modified Allen's Test Pass; Site Drawn RIGHT RADIAL
--- NOTE | 2020-09-15 09:00 | WPDINTPN ---
Progress Note: A&P Assessment and Plan (1) Acute respiratory failure with hypoxia and hypercarbia: Code(s): J96.01 - Acute respiratory failure with hypoxia; J96.02 - Acute respiratory failure with hypercapnia Status: Acute Assessment and Plan: Acute Respiratory failure secondary to pulmonary edema Pt hemodialysed yesterday COVID-19 PCR was negative PCXR reviewed and will repeat in am. 5/5 PSV SBT done. ABG, RSBI and VS acceptable Will extubate and monitor (2) ESRD (end stage renal disease): Code(s): N18.6 - End stage renal disease Status: Acute Assessment and Plan: nephrology consulted for hemodialysis Expect another session today (3) Acute hyperkalemia: Code(s): E87.5 - Hyperkalemia Status: Acute Assessment and Plan: mild hyperkalemia with K 5.2 on presentation resolved after HD (4) Hypertensive urgency: Code(s): I16.0 - Hypertensive urgency Status: Acute Assessment and Plan: Resolved. BP actually was low once he got sedated and on HD. Required Cruz for short while. Now off and BP in adequate range Monitor (5) Pulmonary edema: Code(s): J81.1 - Chronic pulmonary edema Status: Acute Assessment and Plan: S/P HD (6) CAD (coronary artery disease): Code(s): I25.10 - Atherosclerotic heart disease of [place] coronary artery without angina pectoris Status: Acute Assessment and Plan: continue aspirin and Brilinta statin and beta-graciela (7) Suspected COVID-19 virus infection: Code(s): Z20.828 - Contact with and (suspected) exposure to other viral communicable diseases Status: Acute Assessment and Plan: COVID-19 was suspected. SARS-CoV-2 PCR sent and was negative Additional Plan DVT prophylaxis - SCDs as patient has history of GI bleed Stress ulcer prophylaxis - Protonix Nutrition - NPO Code Status - Full Code Total Critical Care Time -30 minutes Due to a high probability of clinically significant, life threatening deterioration, the patient required my highest level of preparedness to intervene emergently and I personally spent this critical care time directly and personally managing the patient. This critical care time included obtaining a history; examining the patient; pulse oximetry; ordering and review of studies; arranging urgent treatment with development of a management plan; evaluation of patient's response to treatment; frequent reassessment; and discussions with other providers. It was exclusive of separately billable procedures and treating other patients and teaching time. Please see Assessment and Plan section and the rest of the note for further information on patient assessment and treatment Subjective Date/time seen: 09/15/20 0700 Pt was hemodialysed last night Required low dose cruz support to maintain BP with sedation and HD Follows commands this morning Afebrile Review of Systems Review of Systems: ROS unobtainable: Yes unobtainable due to endotracheal tube Exam Narrative: Exam Narrative: General: Pt is sedated, intubated and on mechanical ventilation Lungs/Chest: Trachea central Coarse BS B/L, bilateral crackles Cardiac: RRR. Normal S1 S2. No murmurs Circulation: Pedal pulses are intact and symmetrical. Abdomen: Decreased bowel sounds. Obese. Soft. NT. ND. Extremities: No clubbing, cyanosis or edema. Warm right BKA : Baptiste in place Neurologic: Moves all 4 ext, follows commands. PERRL Objective Data Vital Signs Vital Signs: Vital Signs - 24 hr 09/14/20 09:12 09/14/20 09:13 09/14/20 09:14 Temperature Pulse Rate 105 H 107 H Respiratory Rate 21 H Blood Pressure 207/101 H Pulse Oximetry 99 100 09/14/20 09:22 09/14/20 09:55 09/14/20 10:23 Temperature 35.8 C L Pulse Rate 98 96 Respiratory Rate 29 H 32 H Blood Pressure 180/88 H 175/86 H Pulse Oximetry 100 100 100 09/14/20 10:40 09/14/20 11:00 09/14/20 11:18
[2020-09-15] MEDS: PANTOPRAZOLE SODIUM IV 40 MG VIAL IV PUSH (09:29)
[2020-09-15] MEDS: ASPIRIN 325 MG TABLET PO (11:02)
[2020-09-15] MEDS: ATORVASTATIN 40 MG TABLET 80 MG PO (11:03)
[2020-09-15] MEDS: TICAGRELOR 90 MG TABLET PO (11:03)
--- NOTE | 2020-09-15 11:04 | PM.PNNEP ---
Progress Note: A&P Assessment and Plan (1) Hypertensive urgency: Code(s): I16.0 - Hypertensive urgency Status: Acute Assessment and Plan: blood pressure was very high in the emergency room. This was treated. His blood pressure was low yesterday and yesterday evening and is just starting to rise now. This chest x-ray is wet and so taking fluid off should help the blood pressure. I hesitate to treat the blood pressure because yesterday his systolic was too low for us to take any fluid off. Ultimately fluid removal is going to help the blood pressure. Dialysis nurses will be in to do the a dry ultrafiltration today discussed with Dr. Amin (2) Acute respiratory failure with hypoxia and hypercarbia: Code(s): J96.01 - Acute respiratory failure with hypoxia; J96.02 - Acute respiratory failure with hypercapnia Status: Acute Assessment and Plan: patient has been extubated and is breathing comfortably. (3) Suspected COVID-19 virus infection: Code(s): Z20.828 - Contact with and (suspected) exposure to other viral communicable diseases Status: Acute Assessment and Plan: COVID-19 is Negative (4) Acute hyperkalemia: Code(s): E87.5 - Hyperkalemia Status: Acute Assessment and Plan: resolved (5) Renal osteodystrophy: Code(s): N25.0 - Renal osteodystrophy Status: Acute Assessment and Plan: Will check a phosphorus level in the morning. (6) Erythropoietin deficiency anemia: Code(s): D63.1 - Anemia in chronic kidney disease Status: Acute Assessment and Plan: Will give him Epogen starting Monday. (7) Diabetes: Qualifiers: Diabetes mellitus complication detail: with other circulatory complications Diabetes mellitus complication status: with circulatory complication Diabetes mellitus type: type 1 Qualified Code(s): E10.59 - Type 1 diabetes mellitus with other circulatory complications Code(s): E11.9 - Type 2 diabetes mellitus without complications Status: Acute Assessment and Plan: on Accu-Cheks and sliding-scale insulin (8) ESRD (end stage renal disease): Code(s): N18.6 - End stage renal disease Status: Acute Assessment and Plan: gets dialysis 3 times a week Subjective Date/time seen: 09/15/20 11:04 Interval history: Ish is feeling better today. Extubated this morning. He is reading comfortably now. He has no swelling. Review of Systems Cardiovascular: Cardiovascular: Reports no additional cardiovascular complaints Respiratory: Respiratory: Reports no additional respiratory complaints Gastrointestinal: Gastrointestinal: Reports no additional gastrointestinal complaints Genitourinary: Genitourinary: Reports no additional male genitourinary complaints Exam Narrative: Exam Narrative: WDWN in NAD skin no rash head ncat lungs Rare crackles at the bases but surprisingly clear. cor reg no rub abd BS+ nontender and soft ext no edema. Status post right lower extremity amputation Objective Data Vital Signs Vital Signs: Vital Signs - 24 hr 09/14/20 11:18 09/14/20 11:20 09/14/20 11:24 Temperature 36.5 C Pulse Rate 89 89 90 Respiratory Rate 32 H 28 H Blood Pressure 170/69 H Pulse Oximetry 100 100 100 09/14/20 11:26 09/14/20 11:39 09/14/20 12:00 Temperature Pulse Rate 88 88 84 Respiratory Rate 28 H 26 H Blood Pressure Pulse Oximetry 09/14/20 13:26 09/14/20 13:50 09/14/20 14:00 Temperature 36.1 C L Pulse Rate 89 89 82 Respiratory Rate 25 H 20 Blood Pressure 93/41 L 82/27 L Pulse Oximetry 100 100 100 09/14/20 14:29 09/14/20 14:45 09/14/20 15:00 Temperature 36.1 C L Pulse Rate 91 91 92 Respiratory Rate 22 H Blood Pressure 75/15 L 73/24 L 72/34 L Pulse Oximetry 100 09/14/20 15:15 09/14/20 15:30 09/14/20 15:45 Temperature Pulse Rate 93 91 92 Respirator
--- NOTE | 2020-09-15 11:55 | PC.NURSE ---
Patient spouse to guille stated Ish said when he gets home tomorrow he will kill himself . Dr. Ayala, ICU Drector and steno typist notified
[2020-09-15] MEDS: INSULIN ASPART (*BKC) 100 UNITS/ML SUB-Q (12:30)
[2020-09-15] MEDS: METOPROLOL TARTRATE INJ 5 MG/5 ML VIAL IV PUSH (12:36)
[2020-09-15] MEDS: ONDANSETRON INJ 4 MG/2 ML VIAL IV PUSH (12:51)
[2020-09-15] MEDS: LORazepam INJ (*CRX) 2 MG/ML VIAL 1 MG IV PUSH (12:52)
[2020-09-15 12:56] LABS: Glucose Point of Care 216 (65-105)
--- NOTE | 2020-09-15 15:09 | PM.DS ---
DS: Admitting Diagnosis Admitting Diagnosis Admitting Diagnosis: Shortness of breath. DS: Discharge Diagnosis Discharge Diagnosis (1) Acute respiratory failure with hypoxia and hypercarbia: Code(s): J96.01 - Acute respiratory failure with hypoxia; J96.02 - Acute respiratory failure with hypercapnia Status: Acute Assessment and Plan: Pt was intubated and extubated the next day. Stable for discharge off oxygen now. CXR shows mild cardiomegaly. Some pulmonary edema. (2) Hypertensive urgency: Code(s): I16.0 - Hypertensive urgency Status: Acute Assessment and Plan: BP is 182/ 82 Pt to continue on his own BP medications at home (3) Acute hyperkalemia: Code(s): E87.5 - Hyperkalemia Status: Acute Assessment and Plan: Potassium is 4.4 today (4) Pulmonary edema: Qualifiers: Chronicity: acute Qualified Code(s): J81.0 - Acute pulmonary edema Code(s): J81.1 - Chronic pulmonary edema Status: Acute Assessment and Plan: SP intubated. ? non compliance to dialysis pt needs to continue dialysis three times a week (5) Type 1 diabetes mellitus: Qualifiers: Chronic kidney disease stage: on chronic dialysis Diabetes mellitus complication detail: with chronic kidney disease Diabetes mellitus complication status: with kidney complications Qualified Code(s): E10.22 - Type 1 diabetes mellitus with diabetic chronic kidney disease; N18.6 - End stage renal disease; Z99.2 - Dependence on renal dialysis Code(s): E10.9 - Type 1 diabetes mellitus without complications Status: Chronic Assessment and Plan: Pt to continue home medications (6) Coronary artery disease: Qualifiers: Associated angina: without angina Coronary Disease-Associated Artery/Lesion type: stebbins artery [place] vs. transplanted heart: stebbins heart Qualified Code(s): I25.10 - Atherosclerotic heart disease of stebbins coronary artery without angina pectoris Code(s): I25.10 - Atherosclerotic heart disease of stebbins coronary artery without angina pectoris Status: Acute Assessment and Plan: Pt to continue home medications (7) Tobacco dependence: Code(s): F17.200 - Nicotine dependence, unspecified, uncomplicated Status: Acute Assessment and Plan: Pt adviced to quit smoking (8) Suspected COVID-19 virus infection: Code(s): Z20.828 - Contact with and (suspected) exposure to other viral communicable diseases Status: Acute Assessment and Plan: COVID is negative (9) ESRD (end stage renal disease): Code(s): N18.6 - End stage renal disease Status: Acute Assessment and Plan: Seen by Dr Huynh, nephrology, ok or discharge pt must continue with dialysis as outpatient. Must have dialysis tomorrow (10) Suicidal ideation: Code(s): R45.851 - Suicidal ideations Status: Acute Assessment and Plan: Pt expressed thoughts of suicide history of depression, in the ICU room with him. CRISIS team consulted ok to dischrage on a safety pact. lives with him and will watch him. DS: Summary Time Spent with Patient Time attestation: Total time spent providing and/or coordinating discharge services: 40 minutes on day of dischrage Exam Narrative: Exam Narrative: General: Middle aged man, slightly agitated HEENT: Normocephalic, atraumatic. Neck: Supple. Respiratory: Lung sounds are clear Cardiovascular: Regular rate and rhythm with S1-S2. Gastrointestinal: Abdomen is soft, nontender, and nondistended with positive bowel sounds. Skin: Warm and dry. No rash or lesions on limited exam. Extremities: No cyanosis, clubbing, or edema. Status post right [id number]-[id number] amputation. DS: Data Data Completed and Pending Labs on day of discharge: Labs from last 24 hours 09/15/20 09/15/20 09/15/20 12:28 08:34 07:59 WBC RBC Hgb Hct M
--- NOTE | 2020-09-15 15:55 | PC.NURSE ---
Patient discharge paperwork signed. Patient waiting for spouse for transportation home.
== END 2020-09-15 17:25 | disposition home or self-care (01) | DRG 291 ==
LOC: ANHED 09:21 → ANHICU 10:38
PROVIDERS: Internal Medicine; Admitting Provider Family Medicine; Emergency Provider Emergency Medicine; PCP Emergency Medicine; Visit Provider Family Medicine
DX: I13.2 Hypertensive heart and chronic kidney disease with heart failure and with stage 5 chronic kidney disease, or end stage renal disease (principal); J96.01 Acute respiratory failure with hypoxia; N18.6 End stage renal disease; J96.02 Acute respiratory failure with hypercapnia; I50.42 Chronic combined systolic (congestive) and diastolic (congestive) heart failure; R45.851 Suicidal ideations; Z20.828 Contact with and (suspected) exposure to other viral communicable diseases; Z91.15 Patient's noncompliance with renal dialysis; J44.9 Chronic obstructive pulmonary disease, unspecified; I16.0 Hypertensive urgency; E10.22 Type 1 diabetes mellitus with diabetic chronic kidney disease; E87.5 Hyperkalemia; E10.21 Type 1 diabetes mellitus with diabetic nephropathy; E10.319 Type 1 diabetes mellitus with unspecified diabetic retinopathy without macular edema; E10.42 Type 1 diabetes mellitus with diabetic polyneuropathy; N40.0 Benign prostatic hyperplasia without lower urinary tract symptoms; F41.8 Other specified anxiety disorders; E55.9 Vitamin D deficiency, unspecified; N25.0 Renal osteodystrophy; D63.1 Anemia in chronic kidney disease; K21.9 Gastro-esophageal reflux disease without esophagitis; I25.10 Atherosclerotic heart disease of native coronary artery without angina pectoris; E10.51 Type 1 diabetes mellitus with diabetic peripheral angiopathy without gangrene; F17.200 Nicotine dependence, unspecified, uncomplicated; Z89.511 Acquired absence of right leg below knee; I25.2 Old myocardial infarction; Z98.42 Cataract extraction status, left eye; Z99.2 Dependence on renal dialysis; Z98.41 Cataract extraction status, right eye
CPT/HCPCS: 31500; 36415; 36600; 71045; 80048; 80053; 81001; 82375; 82805; 83050; 83605; 83735; 84100; 85025; 87040; 87635; 93005; 94003; 96374; 96375; 99291; A9270; C9113; C9803; G0257; J0330; J0360; J1644; J1815; J1940; J2060; J2250; J2270; J2370; J2405; J2704; J3010; J7030; J7060; P9047; Q5106; U0003

== ENCOUNTER 2020-10-17 03:25 | Inpatient (IN) | payer MEDICARE, MEDICAID, SELFPAY ==
[2020-10-17] VITALS (59 sets, daily range): BP systolic 72–248; BP diastolic 47–112; PULSE 56–120; RESP 13–32; TEMP 35–37; O2SAT 97–100; BMI 21.1
--- NOTE | ~2020-10-17 | CT_ITS ---
EXAMINATION: CT brain wo con DATE: 10/17/2020 05:45 INDICATION: Altered mental status TECHNIQUE: Computed tomography (CT) of the head was performed without intravenous contrast. The dose- length product was 605.33 mGy-cm. The mA was adjusted according to patient size. Iterative reconstruc tion technique was employed. COMPARISON: None FINDINGS: Generalized atrophy. Chronic left frontal lobe infarction with encephalomalacia. No ventric ulomegaly or midline shift. There is intracranial atherosclerosis. There are scattered mild periventr icular and subcortical white matter changes, most likely related to small vessel ischemic disease (mi croangiopathy). Small left mastoid effusion. IMPRESSION: 1. No acute intracranial abnormality. 2: Chronic left frontal lobe infarction with encephalomalacia. 3: Chronic age-related findings. Reviewed, dictated and finalized at location A. GY CONSERVATION SPECIALIST
--- NOTE | ~2020-10-17 | XR_ITS ---
XR chest ET placement 10/17/2020 03:56 Indication: Respiratory distress. Intubation. Procedure: AP portable chest Comparison: Comparison to multiple prior studies sequentially, with oldest reviewed study dated 12/2019. Findings: Endotracheal tube tip 3.3 cm above the luciano. NG tube in the stomach. Cardiomegaly. Diffus e bilateral airspace disease. Left costophrenic recess is excluded. No significant effusion or pneumo thorax. Impression: 1: Extensive bilateral airspace disease which may represent edema and/or pneumonia. Reviewed, dictated and finalized at location A. PIT WORKER Impression: 1: Extensive bilateral airspace disease which may represent edema and/or pneumo tyree.
--- NOTE | 2020-10-17 03:32 | ECG_ITS ---
Measurements Intervals [place] Rate: 110 P: 47 MT: 112 QRS: 76 QRSD: 94 T: 87 QT: 362 QTc: 492 Interpretive Statements SINUS TACHYCARDIA WITH SHORT MT INTERVAL LEFT ATRIAL ENLARGEMENT NONSPECIFIC ST & T-WAVE ABNORMALITY- DIFFUSE LEADS ABNORMAL ECG Electronically Signed On 10-17-2020 7:40:53 BEHAVIOR CLINICIAN by Edmond Elias D.O.
--- NOTE | 2020-10-17 03:34 | PC.NURSE ---
0323 annie in room to intubate pt. 0323 100mg rocc, 20mg etomidate given to pt per annie vargas verbal order. 0324 IO in left leg taken out by james warner due to it not flushing. 0325 20g IV placed in right upp arm by leatha warner. 0327 OG placed in pt
--- NOTE | 2020-10-17 03:37 | ED.AMS ---
HPI - Altered Mental Status General Chief Complaint: Altered Mental Status Stated Complaint: unresponsive Time Seen by Provider: 10/17/20 03:30 History of Present Illness HPI narrative: 55 yo male with h/o COPD, CHF, ESRD on dialysis, and flash pulmonary edema brought in by EMS for severe respiratory distress. Found in severe distress by his . Had to have assisted respirations by EMS. He has presented in similar circumstances many time and required intubation. He has also gone into cardiac arrest on at least 1 occasion. Related Data Home Medications Medication Instructions Recorded Confirmed carvedilol 50 mg PO DAILY 02/05/20 10/17/20 furosemide 80 mg PO BID 02/05/20 10/17/20 nitroglycerin 0.4 mg SUBLINGUAL Q5MIN PRN 02/05/20 10/17/20 pantoprazole 40 mg PO Q12H 02/05/20 10/17/20 losartan 100 mg PO QPM 04/10/20 10/17/20 calcium carbonate [Tums] 200 mg PO PRN PRN 04/11/20 10/17/20 aspirin 81 mg PO DAILY 07/02/20 10/17/20 Dang-Nilsa 1 tablet PO DAILY 07/23/20 10/17/20 lanthanum 1,000 mg PO TIDWM 07/23/20 10/17/20 nicotine 1 patch TRANSDERMAL DAILY 07/23/20 10/17/20 cholecalciferol (vitamin D3) 50 mcg PO DAILY 08/12/20 10/17/20 clopidogrel [Plavix] 75 mg PO DAILY 09/14/20 10/17/20 rosuvastatin 10 mg PO DAILY 09/14/20 10/17/20 Allergies Allergy/AdvReac Type Severity Reaction Status Date / Time scopolamine Allergy Severe Unresponsiv Verified 10/18/20 16:11 e Review of Systems Review of Systems: ROS unobtainable: Yes unobtainable due to medical condition [facility] Past Medical History Medical History Anxiety Benign prostatic hyperplasia Bradycardic cardiac arrest (~07/23/20) In the setting of severe hyperkalemia, acute pulmonary edema, and respiratory failure Chronic anemia Congestive heart failure Echocardiogram in August 2020 showed a mildly enlarged left ventricular chamber, severely reduced left ventricular systolic function with an estimated ejection fraction of 25 to 30%, moderately increased LV wall thickness, grade 2 diastolic dysfunction, severe aortic valve sclerosis, mild mitral, tricuspid, and pulmonic valve regurgitation, mild pulmonary hypertension with an estimated arterial pressure 43 mmHg, and areas of hypokinesis including the apex, inferior wall, anterior wall, inferoseptal wall, anterolateral wall, and anteroseptal wall. Coronary artery disease With non STEMI in December 2019, with stent placed to the LAD. Depression with anxiety End-stage renal disease on hemodialysis Gastric ulcer On endoscopy per Dr. Pacheco in June 2020. Gastroesophageal reflux disease Hypertension Hypertension Renal osteodystrophy Seizure Secondary to hypoglycemia. ST elevation myocardial infarction (STEMI) (~06/26/20) Secondary to abrupt stent thrombosis of the LAD. Tobacco dependence Type 1 diabetes mellitus Diagnosed at the age of 10. Complicated by retinopathy, nephropathy, and neuropathy. Hemoglobin A1c was 7.6% in July 2020. Vitamin D deficiency disease Surgical History Surgical History History of endoscopy (~06/27/20) History of heart artery stent Stent in the LAD in December 2019. Patient had abrupt stent thrombosis of the previously placed stent to the LAD on June 26, 2020 left coronary with extraction thrombectomy and stenting distal to the original stent with upsizing of the original stent. History of right below knee amputation History of spinal surgery Neurostimulator in place. Status post below knee amputation of right lower extremity (~12/02/19) Performed [facility]. Status post cataract extraction Status post creation of arteriovenous fistula Left upper extremity. Status post hemorrhoidectomy Family History Family History Father Hypertension Sibling Multiple myeloma Hypertension Mother Acute myelogenous le
[2020-10-17 03:44] LABS: Glucose Point of Care > 500 (65-105)
[2020-10-17] MEDS: PROPOFOL IV EMULSION 100 ML 1.95 MG IV CONT (03:54)
[2020-10-17] MEDS: NITROGLYCERIN/D5W 200 MCG/ML 50 MG/250 ML BTL IV CONT (04:05)
[2020-10-17 04:17] LABS: Basophils Absolute Auto 0.1 K/mm3 (0.0-0.1); Basophils Percent Auto 0.6 % (0.2-1.2); Eosinophils Absolute Auto 0.6 K/mm3 (0-0.3); Hematocrit 35.8 % (42.0-52.0); Hemoglobin 10.8 g/dL (14.0-18.0); Immature Granulocyte Absolute 0.04 K/mm3 (0.00-0.031); Immature Granulocyte Percent A 0.4 % (0-0.5); Lymphocytes Absolute Auto 2.48 K/mm3 (0.9-3.2); Lymphocytes Percent Auto 25.2 % (18.3-44.2); Mean Corpuscular HGB Conc 30.2 g/dl (32-36); Mean Corpuscular Hemoglobin 30.3 pg (26-34); Mean Corpuscular Volume 100.6 fl (80-100); Mean Platelet Volume 10.8 fl (7.4-10.4); Monocytes Absolute Auto 0.9 K/mm3 (0.1-0.6); Monocytes Percent Auto 9.2 % (2.6-8.5); Neutrophils Absolute Auto 5.8 K/mm3 (1.3-6.7); Neutrophils Percent Auto 58.6 % (45.5-73.1); Platelet Count Result 375 k/mm3 (150-375); Red Blood Count 3.56 M/mm3 (4.6-6.20); Red Cell Distribution Width 17.6 % (11.5-14.5); White Blood Count 9.8 K/mm3 (4.5-10.0)
[2020-10-17 04:20] LABS: Prothrombin Time 13.5 Seconds (11.1-14.7)
[2020-10-17 04:21] LABS: Partial Thromboplastin Time 33.6 SECONDS (22.3-36.8)
[2020-10-17] MEDS: INSULIN HUMAN REGULAR (*BKC) 100 UNITS/ML 10 UNITS IV PUSH (04:21)
[2020-10-17 04:26] LABS: Base Excess ABG 0.9 mEq/l (+/-2.0); Device VENTILATOR; Fractional Inspired Oxygen 60 %; HCO3 ABG 28.3 mEq/l (22.0-26.0); Oxygen Content ABG 15.4 %vol (16.0-22.0); Oxygen Saturation ABG 96.3 % (95.0-100.0); Oxyhemoglobin 93.6 % THb (90.0-100.0); PCO2 ABG 58.4 mmHg (35.0-45.0); PO2 ABG 93.6 mmHg (80.0-100.0); PO2 FiO2 Ratio Arterial Blood 1.56 %; Site Drawn RIGHT BRACHIAL; Total Hemoglobin 11.6 g/dL (12.0-18.0); pH ABG 7.303 (7.350-7.450)
[2020-10-17 04:27] LABS: Arterial Blood Gas PEEP 5 cmH2O; Arterial Blood Gas Tidal Volume 400 ml; Arterial Blood Gas Vent Mode ASSIST CONTROL; Arterial Blood Gas Ventilator rate 15 /MIN
[2020-10-17 04:28] LABS: Anion Gap 19 mmol/L (8-16); Blood Urea Nitrogen 35 mg/dL (9-20); Calcium 8.4 mg/dL (8.4-10.2); Carbon Dioxide 28 mmol/L (22-30); Chloride 91 mmol/L (98-107); Estimated CRCL calculation 12 ml/min; Estimated Glomerular Filt Rate 10; Glucose 758 mg/dL (75-110); Potassium 4.7 mmol/L (3.4-5.0); Sodium 138 mmol/L (137-145)
[2020-10-17 04:34] LABS: NT Pro B Type Natriuretic Pept > 35000 PG/ML (5-100); Troponin I 0.046 ng/mL (0.000-0.034)
[2020-10-17 06:12] LABS: Glucose Point of Care > 500 (65-105)
[2020-10-17 07:04] LABS: Beta-Hydroxybutyrate/Acetoacetate 0.19 mmol/L (0.02-0.27)
--- NOTE | 2020-10-17 08:11 | ADMGEN ---
This patient, Ish Corley, was admitted to Intensive Care Unit-5. Patient/family oriented to hospital policies and general routines including ID bracelet, bed and alarms, visiting hours, pain management, procedures, bathroom and other care routines, personal items, smoking policy, room service/diet, and visiting hours. Information on how to activate the Rapid Response Team has been discussed. Patient/Family are encouraged to report perceived risks to care and to ask questions if they do not understand what they are told or what they should do.
[2020-10-17 08:43] LABS: Glucose Point of Care > 500 (65-105)
[2020-10-17] MEDS: INSULIN GLARGINE (*BKC) 100 UNITS/ML 30 UNITS SUB-Q (08:50)
[2020-10-17] MEDS: PROPOFOL IV EMULSION 100 ML 11.7 MG IV CONT (08:54)
[2020-10-17 11:42] LABS: Glucose Point of Care 455 (65-105)
[2020-10-17 12:03] LABS: Glucose Point of Care 362 (65-105)
[2020-10-17] MEDS: INSULIN ASPART (*BKC) 100 UNITS/ML SUB-Q (12:05)
[2020-10-17 12:35] LABS: SARS-CoV-2 RNA PCR Negative
--- NOTE | 2020-10-17 12:57 | WPDCNINT ---
Assessment and Plan Assessment and plan (1) Flash pulmonary edema: Code(s): J81.0 - Acute pulmonary edema Status: Acute Assessment and Plan: awaiting dialysis. once dialysis and adequate fluid removal is achieved then he will undergo SBT for possible extubation (2) Acute and chronic respiratory failure with hypoxia: Code(s): J96.21 - Acute and chronic respiratory failure with hypoxia Status: Acute Assessment and Plan: likely due to CHF and flash pulmonary edema. BP needs to be well controlled. Patient is not compliant with home meds I'm told. (3) ESRD (end stage renal disease): Code(s): N18.6 - End stage renal disease Status: Acute (4) IDDM (insulin dependent diabetes mellitus): Status: Acute Assessment and Plan: Will start Lantus 30 units SC daily plus high dose SSI. If glucose does not come down or AG increases he may need an insulin drip. Additional Plan Condition: Critical Code status: Full code Critical care time spent: 35 minutes Due to a high probability of clinically significant, life threatening deterioration, the patient required my highest level of preparedness to intervene emergently and I personally spent this critical care time directly and personally managing the patient. This critical care time included obtaining a history; examining the patient; pulse oximetry; ordering and review of studies; arranging urgent treatment with development of a management plan; evaluation of patient's response to treatment; frequent reassessment; and discussions with other providers. It was exclusive of separately billable procedures and treating other patients and teaching time. Please see Assessment and Plan section and the rest of the note for further information on patient assessment and treatment Hand Nailer Consult Note Consult date: 10/17/20 Time Seen: 09:30 HPI: Ish Corley is a 55 year old male with ESRD, HTN, IDDM, CAD, GERD who is non complaint with medications and presents every few weeks with respiratory failure due to pulmonary edema. Not sure if he normally misses dialysis. He was intubated upon arrival and his SBP has decreased from 260 to 150's. He is current sedated on propofol and stable, blood sugars were in 700's, AG was 19 but bicarb is 28. Review of Systems Review of Systems: All systems reviewed & are unremarkable except as noted in HPI and below PMFSH Past Medical History Medical History Anxiety Benign prostatic hyperplasia Bradycardic cardiac arrest (~07/23/20) In the setting of severe hyperkalemia, acute pulmonary edema, and respiratory failure Chronic anemia Congestive heart failure Echocardiogram in August 2020 showed a mildly enlarged left ventricular chamber, severely reduced left ventricular systolic function with an estimated ejection fraction of 25 to 30%, moderately increased LV wall thickness, grade 2 diastolic dysfunction, severe aortic valve sclerosis, mild mitral, tricuspid, and pulmonic valve regurgitation, mild pulmonary hypertension with an estimated arterial pressure 43 mmHg, and areas of hypokinesis including the apex, inferior wall, anterior wall, inferoseptal wall, anterolateral wall, and anteroseptal wall. Coronary artery disease With non STEMI in December 2019, with stent placed to the LAD. Depression with anxiety End-stage renal disease on hemodialysis Gastric ulcer On endoscopy per Dr. Pacheco in June 2020. Gastroesophageal reflux disease Hypertension Hypertension Renal osteodystrophy Seizure Secondary to hypoglycemia. ST elevation myocardial infarction (STEMI) (~06/26/20) Secondary to abrupt stent thrombosis of the LAD. Tobacco dependence Type 1 diabetes mellitus Diagnosed at the age of 10. Complicated by retinopathy, nephropathy, and neuropathy. Hemoglobin A1c was 7.6% in July 2020. Vitamin D deficiency disease Surgical History Surgical Hi
[2020-10-17] MEDS: NICOTINE (*PBKC) 21 MG PATCH 1 PATCH TRANSDERM (14:20)
[2020-10-17] MEDS: SERTRALINE HCL 50 MG TABLET 100 MG PO (14:21)
[2020-10-17] MEDS: ROSUVASTATIN 10 MG TABLET PO (14:22)
[2020-10-17] MEDS: CLOPIDOGREL BISULFATE 75 MG TABLET PO (14:23)
[2020-10-17] MEDS: carvediloL 25 MG TABLET 50 MG PO (14:23)
[2020-10-17] MEDS: CHOLECALCIFEROL 1,000 UNITS TABLET 2000 UNITS PO (14:23)
[2020-10-17] MEDS: ASPIRIN 81 MG ENTERIC TABLET PO (14:24)
--- NOTE | 2020-10-17 14:38 | PM.IMHP ---
H&P: HPI History of Present Illness Date/Time: 10/17/20 14:38 Chief complaint: Acute respiratory failure/anion gap acidosis/ESRD Narrative: Date of visit 10/17 1145 Ish Corley is a 55 year old male with end-stage renal disease on hemodialysis, congestive heart failure with last ejection fraction 25-30%, coronary artery disease status post stent to LAD in 01/02, who presents to the emergency room by ambulance when his found him acutely short of breath and respiratory distress. Is found to be in pulmonary edema has he has been on previous hospitalizations with elevated blood sugar but normal CO2. He was intubated and mechanically ventilated in the emergency room and is awaiting hemodialysis.. Apparently there has been an issue with compliance of medications in the past Review of Systems Review of Systems: Narrative: Unobtainable at this time due to mechanical ventilation and sedation [facility] Past Medical History Medical History Anxiety Benign prostatic hyperplasia Bradycardic cardiac arrest (~07/23/20) In the setting of severe hyperkalemia, acute pulmonary edema, and respiratory failure Chronic anemia Congestive heart failure Echocardiogram in August 2020 showed a mildly enlarged left ventricular chamber, severely reduced left ventricular systolic function with an estimated ejection fraction of 25 to 30%, moderately increased LV wall thickness, grade 2 diastolic dysfunction, severe aortic valve sclerosis, mild mitral, tricuspid, and pulmonic valve regurgitation, mild pulmonary hypertension with an estimated arterial pressure 43 mmHg, and areas of hypokinesis including the apex, inferior wall, anterior wall, inferoseptal wall, anterolateral wall, and anteroseptal wall. Coronary artery disease With non STEMI in December 2019, with stent placed to the LAD. Depression with anxiety End-stage renal disease on hemodialysis Gastric ulcer On endoscopy per Dr. Pacheco in June 2020. Gastroesophageal reflux disease Hypertension Hypertension Renal osteodystrophy Seizure Secondary to hypoglycemia. ST elevation myocardial infarction (STEMI) (~06/26/20) Secondary to abrupt stent thrombosis of the LAD. Tobacco dependence Type 1 diabetes mellitus Diagnosed at the age of 10. Complicated by retinopathy, nephropathy, and neuropathy. Hemoglobin A1c was 7.6% in July 2020. Vitamin D deficiency disease Surgical History Surgical History History of endoscopy (~06/27/20) History of heart artery stent Stent in the LAD in December 2019. Patient had abrupt stent thrombosis of the previously placed stent to the LAD on June 26, 2020 left coronary with extraction thrombectomy and stenting distal to the original stent with upsizing of the original stent. History of right below knee amputation History of spinal surgery Neurostimulator in place. Status post below knee amputation of right lower extremity (~12/02/19) Performed [facility]. Status post cataract extraction Status post creation of arteriovenous fistula Left upper extremity. Status post hemorrhoidectomy Family History Family History Father Hypertension Sibling Multiple myeloma Hypertension Mother Acute myelogenous leukemia Heart disease Social History Social History Social History: Mr. Corley lives at home in [place] with his and daughter. 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 He designates his , Rosana, as his surrogate decision maker and he wishes to be a full code. Smoking packs per day: 0.5 Smoking cigarettes per day: 10.0 Years smoked: 30 Smoking pack-years: 15.00 Smoking status: Current every day smoker Tobacco type: cigarettes Second hand tobacco smoke exposure: Yes Alcohol in
--- NOTE | 2020-10-17 14:40 | PM.CNNEP ---
Assessment and Plan Assessment and plan (1) End stage renal disease: Code(s): N18.6 - End stage renal disease Status: Acute Assessment and Plan: HD (along with DUF) today and resume schedule of Monday/Monday/Monday next week follow electrolytes, volume status, and clearance (2) Acute respiratory failure: Code(s): J96.00 - Acute respiratory failure, unspecified whether with hypoxia or hypercapnia Status: Acute Assessment and Plan: secondary to flash pulmonary edema from hypertensive urgency fluid removal with HD/DUF as tolerated wean from ventilator as respiratory status improves (3) Hypertension: Code(s): I10 - Essential (primary) hypertension Status: Acute Assessment and Plan: notoriously erratic and possibly complicated by compliance issues with medications reasonably control at this time follow trend of hemodynamics (4) Anemia: Code(s): D64.9 - Anemia, unspecified Status: Acute Assessment and Plan: due to ESRD Epogen with HD follow trend of H/H (5) Cardiomyopathy: Code(s): I42.9 - Cardiomyopathy, unspecified Status: Chronic Assessment and Plan: known history fluid removal with HD to maintain euvolemia (6) Diabetes: Qualifiers: Diabetes mellitus complication detail: with other circulatory complications Diabetes mellitus complication status: with circulatory complication Diabetes mellitus type: type 1 Qualified Code(s): E10.59 - Type 1 diabetes mellitus with other circulatory complications Code(s): E11.9 - Type 2 diabetes mellitus without complications Status: Chronic Assessment and Plan: poor control at baseline as noted by last A1c hyperglycemic on admission as well glycemic control instituted Will continue to follow. History of Present Illness Reason for Consult Consult date: 10/17/20 Reason for consult: end stage renal disease Chief Complaint Chief complaint: Acute respiratory failure/anion gap acidosis/ESRD History of Present Illness Narrative: All the information I have obtained is from review of the electronic medical record as well as my personal history of taking care of this patient as he is unable to provide me with any history given his current clinical status (intubated and sedated). The patient is a 55 year old male with an extensive past medical history as outlined below who presented to [facility] ER with complaints of increasing shortness of breath/respiratory distress. The patient was noted by his yesterday evening to be in respiratory distress. She called 911 and EMS arrived for further evaluation. He appeared to be in respiratory distress and hypoxic and supplemental oxygen was applied and he was brought to the emergency room for further evaluation and therapy. Workup and evaluation emergency room demonstrated the patient to be quite hypertensive with a systolic BP greater than 250 and in significant respiratory distress. routine blood test demonstrated labs consistent with his known history of end-stage renal disease a chest x-ray showed significant pulmonary vascular congestion/pulmonary edema. Given the severity of his respiratory status, he was intubated and placed on mechanical ventilation. He was subsequently admitted to the intensive care unit for further therapy. Renal consultation was requested due to his history of end-stage renal disease. The patient is well known to me as I have taken care of him numerous times during his multiple hospitalizations here [facility]. His presentation is somewhat similar to some of his previous hospitalizations/admissions for respiratory distress, hypertensive urgency, and flash pulmonary edema which is quite similar to his presentation on this hospitalization as well. He normally dialyzes on a Monday, Monday, Monday schedule under the care of Dr. Luke Huynh at [facility]
[2020-10-17] MEDS: PROPOFOL IV EMULSION 100 ML 19.5 MG IV CONT ×2 (15:32→20:30)
[2020-10-17] MEDS: DEXTROSE 50% 25 GM/50 ML SYRINGE IV PUSH (17:27)
[2020-10-17 17:59] LABS: Glucose Point of Care 34 (65-105)
[2020-10-17 17:59] LABS: Glucose Point of Care 164 (65-105)
[2020-10-17] MEDS: HEPARIN SODIUM 5,000 UNITS/ML VIAL 5000 UNITS SUB-Q (21:30)
[2020-10-18] VITALS (10 sets, daily range): BP systolic 84–111; BP diastolic 50–59; PULSE 81–100; RESP 15; TEMP 36.6–37.2; O2SAT 92–100
[2020-10-18 00:02] LABS: Glucose Point of Care 148 (65-105)
[2020-10-18] MEDS: PROPOFOL IV EMULSION 100 ML 19.5 MG IV CONT ×2 (00:48→05:52)
[2020-10-18 05:49] LABS: Glucose Point of Care 325 (65-105)
[2020-10-18] MEDS: INSULIN ASPART (*BKC) 100 UNITS/ML SUB-Q (05:52)
[2020-10-18 06:04] LABS: Alveolar/Arterial O2 Gradient 107.1 mmHg; Base Excess ABG 8.8 mEq/l (+/-2.0); Fractional Inspired Oxygen 35 %; HCO3 ABG 32.1 mEq/l (22.0-26.0); Oxygen Content ABG 18.4 %vol (16.0-22.0); Oxyhemoglobin 96.9 % THb (90.0-100.0); PCO2 ABG 39.3 mmHg (35.0-45.0); PO2 ABG 96.8 mmHg (80.0-100.0); PO2 FiO2 Ratio Arterial Blood 2.77 %; Total Hemoglobin 13.4 g/dL (12.0-18.0)
[2020-10-18 06:08] LABS: Arterial Blood Gas PEEP 5 cmH2O; Arterial Blood Gas Vent Mode CMV; Arterial Blood Gas Ventilator rate 15 /MIN; Device VENTILATOR; Modified Allen's Test Pass; Site Drawn LEFT RADIAL
[2020-10-18 06:09] LABS: Arterial Blood Gas Tidal Volume 450 ml
--- NOTE | 2020-10-18 08:20 | WPDINTPN ---
Progress Note: A&P Assessment and Plan (1) Flash pulmonary edema: Code(s): J81.0 - Acute pulmonary edema Status: Acute Assessment and Plan: Due to hypertensive emergency; improved with HD and BP control. Vent needs are minimal. SAT/SBT today. (2) Acute and chronic respiratory failure with hypoxia: Code(s): J96.21 - Acute and chronic respiratory failure with hypoxia Status: Acute Assessment and Plan: Due to CHF and flash pulmonary edema. BP needs to be well controlled. Patient is not compliant with home meds I'm told. SAT/SBT today with probable extubation. (3) ESRD (end stage renal disease): Code(s): N18.6 - End stage renal disease Status: Acute Assessment and Plan: HD per Nephrology. (4) IDDM (insulin dependent diabetes mellitus): Status: Acute Assessment and Plan: Continue Lantus 30 units SC daily plus high dose SSI. Additional Plan Condition: Critical Code status: Full code Critical care time spent: 32 minutes Due to a high probability of clinically significant, life threatening deterioration, the patient required my highest level of preparedness to intervene emergently and I personally spent this critical care time directly and personally managing the patient. This critical care time included obtaining a history; examining the patient; pulse oximetry; ordering and review of studies; arranging urgent treatment with development of a management plan; evaluation of patient's response to treatment; frequent reassessment; and discussions with other providers. It was exclusive of separately billable procedures and treating other patients and teaching time. Please see Assessment and Plan section and the rest of the note for further information on patient assessment and treatment Subjective Date/time seen: 10/18/20 08:20 10/17: presented to ED with respiratory distress and hypertensive emergency, intubated 24h summary: Pt remains on mechanical ventilation. No acute events noted. Review of Systems Review of Systems: All systems reviewed & are unremarkable except as noted in HPI and below Exam Const: General: cooperative and comfortable Other: NAD HENMT: Head: normocephalic and atraumatic Eyes: General: appearance normal, both eyes and all related structures Neck: Other: JVD Resp: Effort & Inspection: normal respiratory effort Auscultation: clear to auscultation bilaterally Other: intubated and sedated Cardio: Rate: regular rate Rhythm: regular rhythm Heart sounds: S1 normal heart sound present and S2 normal heart sound present GI: Inspection: normal to inspection Auscultation: normal bowel sounds Skin: General skin exam: normal color and no rashes or lesions noted Neuro: Other: Grimace to pain. Extrem: Other: right BKA Objective Data Vital Signs Vital Signs: Vital Signs - 24 hr 10/17/20 08:41 10/17/20 08:54 10/17/20 10:00 Temperature Pulse Rate 76 76 77 Respiratory Rate 17 16 Blood Pressure 159/60 H Pulse Oximetry 100 100 10/17/20 11:13 10/17/20 12:00 10/17/20 14:00 Temperature 35.7 C L Pulse Rate 76 76 84 Respiratory Rate 15 17 Blood Pressure 135/69 142/55 H Pulse Oximetry 100 100 99 10/17/20 14:02 10/17/20 14:20 10/17/20 15:32 Temperature Pulse Rate 76 82 76 Respiratory Rate 15 15 Blood Pressure Pulse Oximetry 99 10/17/20 16:00 10/17/20 17:01 10/17/20 18:00 Temperature 36.2 C L Pulse Rate 79 75 74 Respiratory Rate 16 15 Blood Pressure 126/64 112/64 Pulse Oximetry 100 100 100 10/17/20 19:08 10/17/20 19:15 10/17/20 19:30 Temperature Pulse Rate 89 72 67 Respiratory Rate 15 15 15 Blood Pressure 158/64 H 102/56 L 96/56 L Pulse Oximetry 98 98 98 10/17/20 19:43 10/17/20 19:45 10/17/20 20:00 Temperature 36.7 C Pulse Rate 68 68 80 Respiratory Rate 17 19 Blood Pressure 95/57 L 95/57 L 82/55 L Pulse Oximetry 97 98 10/17/20 20:15 10/17/20 20:20 12/0
[2020-10-18] MEDS: CHOLECALCIFEROL 1,000 UNITS TABLET 2000 UNITS PO (08:49)
[2020-10-18] MEDS: CLOPIDOGREL BISULFATE 75 MG TABLET PO (08:49)
[2020-10-18] MEDS: HEPARIN SODIUM 5,000 UNITS/ML VIAL 5000 UNITS SUB-Q (08:50)
[2020-10-18] MEDS: NICOTINE (*PBKC) 21 MG PATCH 1 PATCH TRANSDERM (08:50)
[2020-10-18] MEDS: VITAMIN B CMPLX/VIT C/FOLIC AC 1 CAPSULE 1 CAP PO (08:51)
[2020-10-18] MEDS: ROSUVASTATIN 10 MG TABLET PO (08:51)
[2020-10-18] MEDS: SERTRALINE HCL 50 MG TABLET 100 MG PO (08:51)
[2020-10-18] MEDS: PANTOPRAZOLE 40 MG TABLET PO (08:52)
[2020-10-18] MEDS: INSULIN GLARGINE (*BKC) 100 UNITS/ML 30 UNITS SUB-Q (09:05)
[2020-10-18 12:15] LABS: Glucose Point of Care 304 (65-105)
--- NOTE | 2020-10-18 13:04 | PC.NURSE ---
1245After going into room, pt stated release me. asked pt what he meant and he stated to take all of the stuff off him so he can go home. I asked him if he was meaning Against Medical Advice. He stated yes, bring the AMA paper in for him to sign it. Notified Dr. Mejía and icu physcian. all wires and iv's dc'd after paper signed and awaiting him to dress,
--- NOTE | 2020-10-18 14:23 | PC.NURSE ---
pt left at 1415, explained the need why pt must become compliant with doctors orders with diabetic diet and dialysis clinics need for therapies, pt stayed he was willing to stay then changed his mind several times,
--- NOTE | 2020-10-18 16:44 | PM.IMPN ---
Progress Note: A&P Assessment and Plan (1) Flash pulmonary edema: Code(s): J81.0 - Acute pulmonary edema Status: Acute Assessment and Plan: Thought secondary to noncompliance and possibly hypertension. Relieved after dialysis 10/17 (2) Acute and chronic respiratory failure with hypoxia: Code(s): J96.21 - Acute and chronic respiratory failure with hypoxia Status: Acute Assessment and Plan: Diuresed and hemodialysis 10/17. Thought secondary to volume overload secondary to noncompliance. (3) ESRD (end stage renal disease): Code(s): N18.6 - End stage renal disease Status: Acute Assessment and Plan: Dialysis 10 17 and will resume his usual Monday schedule (4) Hypertension: Code(s): I10 - Essential (primary) hypertension Status: Acute Assessment and Plan: Fair control resumed meds per NG (5) Diabetes mellitus: Code(s): E11.9 - Type 2 diabetes mellitus without complications Status: Acute Assessment and Plan: A1c in July 7.6. Continue Lantus and sliding scale. Blood sugar fasting still 300 this a.m. it is reported the eat ate a whole cheesecake today prior to admission Subjective Date/time seen: 10/18/20 16:44 Interval history: Date of visit 10/18. 55-year-old type 2 diabetic with known congestive heart failure chronic renal failure on dialysis admitted with 1 of multiple admissions with flash pulmonary edema and respiratory distress. He was intubated and mechanically ventilated and placed in ICU. This a.m. he is still mechanically ventilated on my rounds and sedated.. Required minimal oxygenation with FiO2 of 35% after hemodialysis 10/17 Exam Narrative: Exam Narrative: Blood pressure 100/60 pulse is 94, afebrile saturating 100% on FiO2 of 35% with 5 of PEEP Pupils equal reactive to light sclera anicteric Mouth ET and OG secured Neck supple Lungs appear clear, today CV regular rate rhythm I hear no murmurs Abdomen is soft nontender no masses Baptiste catheter draining clear yellow urine Extremities right below-knee amputation with clean stump, left foot cool and not able to palpate dorsalis pedis or posterior tibial Neuro sedated but spontaneous movement of left leg Integument no skin breakdown rashes Objective Data Vital Signs Vital Signs: Vital Signs - 24 hr 10/17/20 17:01 10/17/20 18:00 10/17/20 19:08 Temperature Pulse Rate 75 74 89 Respiratory Rate 15 15 Blood Pressure 112/64 158/64 H Pulse Oximetry 100 100 98 10/17/20 19:15 10/17/20 19:30 10/17/20 19:43 Temperature Pulse Rate 72 67 68 Respiratory Rate 15 15 17 Blood Pressure 102/56 L 96/56 L 95/57 L Pulse Oximetry 98 98 97 10/17/20 19:45 10/17/20 20:00 10/17/20 20:15 Temperature 36.7 C Pulse Rate 68 80 60 Respiratory Rate 19 Blood Pressure 95/57 L 82/55 L 92/48 L Pulse Oximetry 98 10/17/20 20:20 10/17/20 20:25 10/17/20 20:27 Temperature Pulse Rate 80 57 L 56 L Respiratory Rate Blood Pressure 79/47 L 72/48 L Pulse Oximetry 98 10/17/20 20:31 10/17/20 22:00 10/18/20 00:00 Temperature 36.3 C L 36.6 C Pulse Rate 69 75 81 Respiratory Rate 15 15 15 Blood Pressure 94/53 L 89/50 L 97/57 L Pulse Oximetry 100 100 10/18/20 02:00 10/18/20 04:00 10/18/20 06:00 Temperature 36.8 C Pulse Rate 87 91 91 Respiratory Rate 15 15 15 Blood Pressure 103/53 L 109/52 L 84/50 L Pulse Oximetry 100 100 100 10/18/20 08:00 10/18/20 08:18 10/18/20 10:00 Temperature 36.8 C Pulse Rate 98 100 97 Respiratory Rate 15 15 Blood Pressure 100/59 L 92/58 L Pulse Oximetry 100 98 100 10/18/20 10:50 10/18/20 11:40 10/18/20 12:00 Temperature 37.2 C Pulse Rate 94 90 96 Respiratory Rate 15 Blood Pressure 111/58 L Pulse Oximetry 96 96 92 Intake/Output Intake/Output: Intake & Output 10/15/20 10/16/20 10/17/20 10/18/20 23:59 23:59 23:59 23:59 Intake Total 300 290 Output Total 1545 1150 Hermilo
== END 2020-10-18 14:15 | disposition left against medical advice (07) | DRG 208 ==
LOC: ANHED 03:34 → ANHICU 15:38
PROVIDERS: Internal Medicine Critical Care Medicine; Admitting Provider Family Medicine; Emergency Provider Emergency Medicine; PCP Emergency Medicine; Visit Provider Internal Medicine
DX: J96.21 Acute and chronic respiratory failure with hypoxia (principal); N18.6 End stage renal disease; J81.0 Acute pulmonary edema; I13.2 Hypertensive heart and chronic kidney disease with heart failure and with stage 5 chronic kidney disease, or end stage renal disease; I42.9 Cardiomyopathy, unspecified; Z20.828 Contact with and (suspected) exposure to other viral communicable diseases; I16.0 Hypertensive urgency; Z99.2 Dependence on renal dialysis; I25.10 Atherosclerotic heart disease of native coronary artery without angina pectoris; E10.319 Type 1 diabetes mellitus with unspecified diabetic retinopathy without macular edema; E10.40 Type 1 diabetes mellitus with diabetic neuropathy, unspecified; E10.22 Type 1 diabetes mellitus with diabetic chronic kidney disease; E10.59 Type 1 diabetes mellitus with other circulatory complications; I50.9 Heart failure, unspecified; D63.1 Anemia in chronic kidney disease; F17.210 Nicotine dependence, cigarettes, uncomplicated; I25.2 Old myocardial infarction; Z98.49 Cataract extraction status, unspecified eye; Z89.511 Acquired absence of right leg below knee; Z95.5 Presence of coronary angioplasty implant and graft; Z79.4 Long term (current) use of insulin; Z79.899 Other long term (current) drug therapy; Z91.14 Patient's other noncompliance with medication regimen
CPT/HCPCS: 31500; 36415; 36600; 70450; 80048; 82010; 82805; 82948; 83880; 84484; 85025; 85610; 85730; 87070; 87205; 87635; 93005; 94002; 94003; 96365; 96366; 96368; 96375; 99291; A9270; C9803; J1644; J1815; J2704; J7030; U0003

== ENCOUNTER 2020-10-18 16:03 | Observation (INO) | payer MEDICARE, MEDICAID, SELFPAY ==
[2020-10-18] VITALS (10 sets, daily range): BP systolic 79–110; BP diastolic 49–65; PULSE 85–97; RESP 15–95; TEMP 36.4–37.2; O2SAT 94–100; BMI 21.0
--- NOTE | ~2020-10-18 | XR_ITS ---
EXAMINATION: XR chest 1V portable DATE: 10/18/2020 16:51 INDICATION: Congestive heart failure, coronary artery disease, hypertension and weakness. TECHNIQUE: frontal view of the chest was obtained. COMPARISON: Chest radiograph dated 10/17/2020 FINDINGS: Symmetric nipple shadows projecting between the anterior fifth and sixth ribs on both the left and ri ght. Additional ill-defined nodular opacities projecting over the lateral left lung corresponding to the anterior second-fifth ribs which suggests likelihood of callus formation associated with relative ly recent rib fractures. Correlate for history of recent trauma or CPR. Pulmonary vascular congestion but without danna pulmonary edema. No pleural effusion or pneumothorax. Borderline heart size accoun ting for AP technique. IMPRESSION: 1. Borderline heart size with pulmonary vascular congestion but without danna pulmonary edema. 2. Subtle nodular opacities projecting over the anterior left second-fifth ribs suggesting callus for mation related to recent rib fractures. Correlate for history of recent trauma or CPR. If there is no collaborating history. Would recommend chest CT for further evaluation. Reviewed, dictated and finalized at location A. DERMATOLOGIST IMPRESSION: 1. Borderline heart size with pulmonary vascular congestion but without danna p ulmonary edema. 2. Subtle nodular opacities projecting over the anterior left second-fifth ribs suggesting callus formation related to recent rib fractures. Correlate for his tory of recent trauma or CPR. If there is no collaborating history. Would recom mend chest CT for further evaluation.
--- NOTE | 2020-10-18 16:33 | ECG_ITS ---
Measurements Intervals M[place]une Rate: 86 P: 55 [place]: 148 QRS: 62 QRSD: 86 T: 83 QT: 463 QTc: 554 Interpretive Statements SINUS RHYTHM POSSIBLE LEFT ATRIAL ENLARGEMENT LEFT VENTRICULAR HYPERTROPHY AND ST-T CHANGE BORDERLINE ST-T WAVE ABNORMALITY- DIFFUSE LEADS BASELINE WANDER- II, III, AVF BORDERLINE ECG Electronically Signed On 10-18-2020 18:35:12 TELEPHONE CLERK by Edmond Elias D.O.
--- NOTE | 2020-10-18 16:45 | ED.GENADULT ---
HPI - General Adult General Chief complaint: Weakness Stated complaint: weak/signed out ama from icu Time Seen by Provider: 10/18/20 16:25 Source: patient History of Present Illness HPI narrative: Patient is a 55 y/o male complaining of severe generalized weakness start today. There is no alleviating or exacerbating factor. He was apparently admitted for respiratory failure, intubated and just extubated earlier today. He signed out AMA, but his family convince him to return to be evaluated. He also complains of left arm pain. Related Data Home Medications Medication Instructions Recorded Confirmed carvedilol 50 mg PO DAILY 02/05/20 10/18/20 furosemide 80 mg PO BID 02/05/20 10/18/20 nitroglycerin 0.4 mg SUBLINGUAL Q5MIN PRN 02/05/20 10/18/20 pantoprazole 40 mg PO Q12H 02/05/20 10/18/20 losartan 100 mg PO QPM 04/10/20 10/18/20 aspirin 81 mg PO DAILY 07/02/20 10/18/20 Dang-Nilsa 1 tablet PO DAILY 07/23/20 10/18/20 lanthanum 1,000 mg PO TIDWM 07/23/20 10/18/20 nicotine 1 patch TRANSDERMAL DAILY 07/23/20 10/18/20 cholecalciferol (vitamin D3) 50 mcg PO DAILY 08/12/20 10/18/20 clopidogrel [Plavix] 75 mg PO DAILY 09/14/20 10/18/20 rosuvastatin 10 mg PO DAILY 09/14/20 10/18/20 albuterol sulfate 1 inh INHALATION BID 10/18/20 10/18/20 Allergies Allergy/AdvReac Type Severity Reaction Status Date / Time scopolamine Allergy Severe Unresponsiv Verified 10/18/20 16:11 e Review of Systems Constitutional: Constitutional: Denies chills, Denies fever(s), Denies headache(s) and Reports weakness Eyes: Eyes: Denies blurry vision ENT: Denies headache(s) and Denies neck pain Cardiovascular: Cardiovascular: Denies chest pain and Denies dyspnea Respiratory: Respiratory: Denies cough and Denies dyspnea Gastrointestinal: Gastrointestinal: Denies abdominal pain, Denies diarrhea, Denies nausea and Denies vomiting Genitourinary: Genitourinary: Denies hematuria and Denies dysuria Musculoskeletal: Musculoskeletal: Denies back pain, Denies neck pain and Reports other (left arm pain) Neurologic: Denies headache(s) and Reports weakness PMFSH Past Medical History Medical History Anxiety Benign prostatic hyperplasia Bradycardic cardiac arrest (~07/23/20) In the setting of severe hyperkalemia, acute pulmonary edema, and respiratory failure Chronic anemia Congestive heart failure Echocardiogram in August 2020 showed a mildly enlarged left ventricular chamber, severely reduced left ventricular systolic function with an estimated ejection fraction of 25 to 30%, moderately increased LV wall thickness, grade 2 diastolic dysfunction, severe aortic valve sclerosis, mild mitral, tricuspid, and pulmonic valve regurgitation, mild pulmonary hypertension with an estimated arterial pressure 43 mmHg, and areas of hypokinesis including the apex, inferior wall, anterior wall, inferoseptal wall, anterolateral wall, and anteroseptal wall. Coronary artery disease With non STEMI in December 2019, with stent placed to the LAD. Depression with anxiety End-stage renal disease on hemodialysis Gastric ulcer On endoscopy per Dr. Pacheco in June 2020. Gastroesophageal reflux disease Hypertension Hypertension Renal osteodystrophy Seizure Secondary to hypoglycemia. ST elevation myocardial infarction (STEMI) (~06/26/20) Secondary to abrupt stent thrombosis of the LAD. Tobacco dependence Type 1 diabetes mellitus Diagnosed at the age of 10. Complicated by retinopathy, nephropathy, and neuropathy. Hemoglobin A1c was 7.6% in July 2020. Vitamin D deficiency disease Surgical History Surgical History History of endoscopy (~06/27/20) History of heart artery stent Stent in the LAD in December 2019. Patient had abrupt stent thrombosis of the previously placed stent to the LAD on June 26, 2020 left coronary with extraction thrombectomy and stenting distal to the
[2020-10-18 16:48] LABS: Basophils Absolute Auto 0.1 K/mm3 (0.0-0.1); Basophils Percent Auto 0.4 % (0.2-1.2); Eosinophils Percent Auto 0.2 % (0-4.4); Hematocrit 42.3 % (42.0-52.0); Hemoglobin 13.1 g/dL (14.0-18.0); Immature Granulocyte Absolute 0.05 K/mm3 (0.00-0.031); Immature Granulocyte Percent A 0.3 % (0-0.5); Lymphocytes Absolute Auto 1.51 K/mm3 (0.9-3.2); Lymphocytes Percent Auto 9.1 % (18.3-44.2); Mean Corpuscular Hemoglobin 29.5 pg (26-34); Mean Corpuscular Volume 95.3 fl (80-100); Mean Platelet Volume 10.5 fl (7.4-10.4); Monocytes Absolute Auto 1.3 K/mm3 (0.1-0.6); Monocytes Percent Auto 7.8 % (2.6-8.5); Neutrophils Absolute Auto 13.6 K/mm3 (1.3-6.7); Neutrophils Percent Auto 82.2 % (45.5-73.1); Platelet Count Result 447 k/mm3 (150-375); Red Blood Count 4.44 M/mm3 (4.6-6.20); Red Cell Distribution Width 17.4 % (11.5-14.5); White Blood Count 16.5 K/mm3 (4.5-10.0)
[2020-10-18 17:00] LABS: Lactic Acid Reflex 2.4 mmol/L (0.7-2.1)
[2020-10-18] MEDS: SODIUM CHLORIDE 0.9% IV 500 ML 999 ML IV CONT (17:26)
[2020-10-18 17:42] LABS: Alanine Aminotransferase 27 U/L (4-50); Albumin Level 4.3 g/dL (3.5-5.1); Alkaline Phosphatase 155 U/L (38-126); Aspartate Amino Transferase 38 U/L (17-59); Bilirubin,Total 0.4 mg/dL (0.2-1.3); Blood Urea Nitrogen 53 mg/dL (9-20); Calcium 9.4 mg/dL (8.4-10.2); Carbon Dioxide > 40 mmol/L (22-30); Chloride 84 mmol/L (98-107); Estimated CRCL calculation 8 ml/min; Estimated Glomerular Filt Rate 6; Glucose 229 mg/dL (75-110); Potassium 3.8 mmol/L (3.4-5.0); Sodium 146 mmol/L (137-145)
[2020-10-18 17:50] LABS: Troponin I 0.489 ng/mL (0.000-0.034)
[2020-10-18] MEDS: LORazepam (*CRX) 1 MG TABLET PO (18:45)
[2020-10-18 19:47] LABS: Reflex Lactic Acid Yes or No Add Lactic
--- NOTE | 2020-10-18 19:51 | ADMGEN ---
This patient, [facility], was admitted to IMU Room 205-01 at 1946. Patient/family oriented to hospital policies and general routines including ID bracelet, bed and alarms, visiting hours, pain management, procedures, bathroom and other care routines, personal items, smoking policy, room service/diet, and visiting hours. Information on how to activate the Rapid Response Team has been discussed. Patient/Family are encouraged to report perceived risks to care and to ask questions if they do not understand what they are told or what they should do.
--- NOTE | 2020-10-18 19:59 | ADMGEN ---
This patient, Ish Corley, was admitted to IMU Room 205-01. Patient/family oriented to hospital policies and general routines including ID bracelet, bed and alarms, visiting hours, pain management, procedures, bathroom and other care routines, personal items, smoking policy, room service/diet, and visiting hours. Information on how to activate the Rapid Response Team has been discussed. Patient/Family are encouraged to report perceived risks to care and to ask questions if they do not understand what they are told or what they should do.
[2020-10-18 20:00] LABS: Glucose Point of Care 221 (65-105)
[2020-10-18 20:05] LABS: Troponin I 0.445 ng/mL (0.000-0.034)
--- NOTE | 2020-10-18 22:15 | PM.IMHP ---
H&P: HPI History of Present Illness Date/Time: 10/18/20 22:15 Chief complaint: weakness/hypotension Narrative: Ish Corley is a 55 year old male who has a history of having end-stage renal disease on dialysis and congestive heart failure with ejection fraction of 25-35% he also has coronary artery disease with a stent to the LAD on 01/02. The patient came to the emergency room on 10/17 with shortness of breath and respiratory distress. The patient was found to be in pulmonary edema he was intubated and mechanically ventilated the emergency room and was awaiting hemodialysis there has been some compliance issues with the patient in the past. Patient was to be resumed back on his regular dialysis on Monday and he received dialysis on the day he was admitted here on the . The patient was weaned off the ventilator after dialysis. Patient's blood pressure had been low and he was given albumin. Patient has poorly controlled diabetes. He has type 1 was diagnosed at the age of 10. After extubation is came to the hospital and the patient left against medical advice. It was noted that his pulmonary edema was relieved after dialysis on 10/17. His last A1c was 7.6. The patient's chest x-ray showed extensive bilateral airspace disease which could represent edema or pneumonia which was noted on 10/17/2020. The patient return back to the emergency room today after signing out AMA earlier this morning. The patient came back this afternoon was complaining of severe generalized weakness. Chest x-ray was read as borderline heart size supple nodular opacities projecting over the anterior left 2nd 5th rib suggesting calcis formation related to recent rib fractures. The ED provider felt that the patient was septic because his blood pressure was low and his white count was 16.5 however I do not have a source of infection. The patient was given a dose of vancomycin. The patient was admitted into observation status on the date of service of 10/18/2020 Review of Systems Review of Systems: All systems reviewed & are unremarkable except as noted in HPI and below Constitutional: Constitutional: Reports as per HPI and Reports no additional constitutional complaints Eyes: Eyes: Reports as per HPI and Reports no additional eye complaints ENT: Reports system reviewed and no additional complaints, except as documented and Reports Normal hearing present Cardiovascular: Cardiovascular: Reports no additional cardiovascular complaints Respiratory: Respiratory: Reports no additional respiratory complaints and Reports no additional respiratory complaints Gastrointestinal: Gastrointestinal: Reports as per HPI and Reports no additional gastrointestinal complaints Musculoskeletal: Musculoskeletal: Reports no additional musculoskeletal complaints Integumentary/Breasts: Skin/Breast: Reports system reviewed and no additional complaints, except as docu and Reports as per HPI Neurologic: Reports system reviewed and no additional complaints, except as documented, Reports as per HPI and Reports Normal hearing present Psychiatric: Psychiatric: Reports no additional psychiatric complaints and Reports as per HPI Endocrine: Endocrine: Reports no additional endocrine complaints Hematologic/Lymphatic: Hematologic/Lymphatic: Reports no additional hematologic/lymphatic complaints Allergic/Immunologic: Allergic/Immunologic: Reports no additional allergic/immunologic complaints [facility] Past Medical History Medical History Anxiety Benign prostatic hyperplasia Bradycardic cardiac arrest (~07/23/20) In the setting of severe hyperkalemia, acute pulmonary edema, and respiratory failure Chronic anemia Congestive heart failure Echocardiogram in August 2020 showed a mildly enlarged left ventricular chamber, severely reduced left ventricular systolic function with an estimated ejection fraction of 25 to 30%, moderately
[2020-10-18 23:07] LABS: Lactic Acid 1.9 mmol/L (0.7-2.1)
[2020-10-19] VITALS (10 sets, daily range): BP systolic 113–135; BP diastolic 56–72; PULSE 86–95; RESP 16–95; TEMP 36–36.9; O2SAT 95–96
[2020-10-19] MEDS: PANTOPRAZOLE 40 MG TABLET PO ×2 (01:52→08:42)
[2020-10-19] MEDS: INSULIN GLARGINE (*BKC) 100 UNITS/ML 10 UNITS SUB-Q (01:53)
[2020-10-19] MEDS: LOSARTAN POTASSIUM 100 MG TABLET PO (01:53)
[2020-10-19] MEDS: TICAGRELOR 90 MG TABLET PO ×2 (01:53→08:42)
[2020-10-19 04:37] LABS: Basophils Absolute Auto 0.1 K/mm3 (0.0-0.1); Basophils Percent Auto 0.4 % (0.2-1.2); Eosinophils Absolute Auto 0.4 K/mm3 (0-0.3); Eosinophils Percent Auto 3.1 % (0-4.4); Hematocrit 37.6 % (42.0-52.0); Immature Granulocyte Absolute 0.06 K/mm3 (0.00-0.031); Immature Granulocyte Percent A 0.4 % (0-0.5); Lymphocytes Absolute Auto 1.74 K/mm3 (0.9-3.2); Lymphocytes Percent Auto 12.9 % (18.3-44.2); Mean Corpuscular HGB Conc 31.9 g/dl (32-36); Mean Corpuscular Hemoglobin 30.1 pg (26-34); Mean Corpuscular Volume 94.2 fl (80-100); Mean Platelet Volume 9.9 fl (7.4-10.4); Monocytes Absolute Auto 1.1 K/mm3 (0.1-0.6); Monocytes Percent Auto 8.5 % (2.6-8.5); Neutrophils Percent Auto 74.7 % (45.5-73.1); Platelet Count Result 364 k/mm3 (150-375); Red Blood Count 3.99 M/mm3 (4.6-6.20); Red Cell Distribution Width 17.2 % (11.5-14.5); White Blood Count 13.5 K/mm3 (4.5-10.0)
[2020-10-19 04:56] LABS: Alanine Aminotransferase 24 U/L (4-50); Albumin Level 3.8 g/dL (3.5-5.1); Alkaline Phosphatase 105 U/L (38-126); Aspartate Amino Transferase 42 U/L (17-59); Bilirubin,Total 0.5 mg/dL (0.2-1.3); Blood Urea Nitrogen 65 mg/dL (9-20); CRP 6.7 mg/dL (<1.0); Calcium 8.3 mg/dL (8.4-10.2); Carbon Dioxide > 40 mmol/L (22-30); Chloride 86 mmol/L (98-107); Estimated CRCL calculation 8 ml/min; Estimated Glomerular Filt Rate 7; Glucose 179 mg/dL (75-110); Magnesium 2.8 mg/dL (1.6-2.3); Phosphorus 9.2 mg/dL (2.5-4.5); Potassium 3.5 mmol/L (3.4-5.0); Sodium 141 mmol/L (137-145)
[2020-10-19 06:04] LABS: Thyroid Stimulating Hormone Reflex 0.542 uIU/mL (0.465-4.68)
[2020-10-19] MEDS: ALBUTEROL SULFATE (*SP) AEROSOL 1 PUFF INHALATION (08:04)
[2020-10-19 08:34] LABS: Glucose Point of Care 66 (65-105)
[2020-10-19] MEDS: CLOPIDOGREL BISULFATE 75 MG TABLET PO (08:42)
[2020-10-19] MEDS: SERTRALINE HCL 50 MG TABLET 100 MG PO (08:42)
[2020-10-19] MEDS: carvediloL 25 MG TABLET 50 MG PO (08:42)
[2020-10-19] MEDS: VITAMIN B CMPLX/VIT C/FOLIC AC 1 CAPSULE 1 CAP PO (08:42)
[2020-10-19] MEDS: ASPIRIN 81 MG ENTERIC TABLET PO (08:43)
[2020-10-19] MEDS: FUROSEMIDE 80 MG TABLET PO (08:43)
[2020-10-19] MEDS: NICOTINE (*PBKC) 21 MG PATCH 1 PATCH TRANSDERM (08:43)
[2020-10-19] MEDS: ATORVASTATIN 40 MG TABLET 80 MG PO (08:43)
[2020-10-19] MEDS: CHOLECALCIFEROL 1,000 UNITS TABLET 2000 UNITS PO (08:43)
[2020-10-19 10:07] LABS: Glucose Point of Care 218 (65-105)
[2020-10-19 12:44] LABS: Glucose Point of Care 189 (65-105)
--- NOTE | 2020-10-21 12:40 | PM.DS ---
DS: Admitting Diagnosis Admitting Diagnosis Admitting Diagnosis: weakness/hypotension DS: Discharge Diagnosis Discharge Diagnosis (1) ESRD (end stage renal disease): Code(s): N18.6 - End stage renal disease Status: Acute Assessment and Plan: The patient got dialysis Thursday 10/18 after missing Tuesday 10/16 and is supposed to resume his Monday schedule. The patient had been in the hospital am 10/18 but got extubated and signed out AMA. However the patient came back now because he felt weak. BP was low after dialysis before her left and still is. However the ED provider felt that the patient was septic because his white count was mildly elevated. . However obvious source of infection and his white cell count was lower than when he left the hospital. His blood pressure kevin and he continued to feel better. Dialysis could not be ranged at the hospital until midnight due to scheduling and after discussion with streetcar starter it was arranged for him to be discharged directly to the dialysis unit for his scheduled dialysis 10/19. (2) CHF (congestive heart failure): Qualifiers: Heart failure type: combined systolic and diastolic Heart failure chronicity: acute on chronic Qualified Code(s): I50.43 - Acute on chronic combined systolic (congestive) and diastolic (congestive) heart failure Code(s): I50.9 - Heart failure, unspecified Status: Acute Assessment and Plan: patient has a known ejection fraction of 20-25% and will run chronically low blood pressures. His Coreg and losartan were restarted and doses may need to be adjusted later (3) ESRD needing dialysis: Code(s): N18.6 - End stage renal disease; Z99.2 - Dependence on renal dialysis Status: Acute Assessment and Plan: Monday, as above discharge to his dialysis unit for treatment today (4) Smoking: Code(s): F17.200 - Nicotine dependence, unspecified, uncomplicated Status: Acute Assessment and Plan: Patient is on a nicotine patch and he has been offered smoking cessation. (5) Acute hypotension: Code(s): I95.9 - Hypotension, unspecified Status: Acute Assessment and Plan: Patient was given albumin at his dialysis 10/17. His blood pressure still on the soft side. But parameters on his lorazepam, Cozaar, Coreg, pain medication if his blood pressures less than 100/60 them were to hold that medication. resume medication on discharge (6) HLD (hyperlipidemia): Qualifiers: Hyperlipidemia type: unspecified Qualified Code(s): E78.5 - Hyperlipidemia, unspecified Code(s): E78.5 - Hyperlipidemia, unspecified Status: Chronic Assessment and Plan: Continue with atorvastatin (7) Depression: Qualifiers: Depression Type: major depressive disorder Major depression recurrence: recurrent Active/Remission status: currently active Major depression episode severity: moderate Qualified Code(s): F33.1 - Major depressive disorder, recurrent, moderate Code(s): F32.9 - Major depressive disorder, single episode, unspecified Status: Acute Assessment and Plan: Continue with Zoloft for depression and he is on lorazepam for anxiety. I also put parameters on that for blood pressure get his Ativan. (8) Diabetes: Qualifiers: Diabetes mellitus complication detail: with other circulatory complications Diabetes mellitus complication status: with circulatory complication Diabetes mellitus type: type 1 Qualified Code(s): E10.59 - Type 1 diabetes mellitus with other circulatory complications Code(s): E11.9 - Type 2 diabetes mellitus without complications Status: Chronic Assessment and Plan: Accu-Cheks AC and HS. Last A1c was around 7.6. Continue with glargine. DS: Summary Hospital Course Hospital Course: date of service and date of discharge 10/19. 55-year-old hypertensive typ
== END 2020-10-19 12:18 | disposition home or self-care (01) ==
LOC: ANHED 16:36 → ANHIMU 18:42
PROVIDERS: Nurse Practitioner; Admitting Provider Internal Medicine; Emergency Provider Emergency Medicine; PCP Emergency Medicine; Visit Provider Internal Medicine
DX: N18.6 End stage renal disease (principal); I13.2 Hypertensive heart and chronic kidney disease with heart failure and with stage 5 chronic kidney disease, or end stage renal disease; I50.43 Acute on chronic combined systolic (congestive) and diastolic (congestive) heart failure; Z99.2 Dependence on renal dialysis; E10.22 Type 1 diabetes mellitus with diabetic chronic kidney disease; E10.65 Type 1 diabetes mellitus with hyperglycemia; J96.90 Respiratory failure, unspecified, unspecified whether with hypoxia or hypercapnia; R53.1 Weakness; E78.5 Hyperlipidemia, unspecified; F32.9 Major depressive disorder, single episode, unspecified; I25.10 Atherosclerotic heart disease of native coronary artery without angina pectoris; I95.9 Hypotension, unspecified; Z89.511 Acquired absence of right leg below knee; F17.210 Nicotine dependence, cigarettes, uncomplicated; F12.90 Cannabis use, unspecified, uncomplicated; Z95.5 Presence of coronary angioplasty implant and graft
CPT/HCPCS: 36415; 71045; 80053; 83605; 83735; 84100; 84443; 84484; 85025; 86140; 93005; 94640; 96361; 96365; 96375; 99285; A9270; G0378; J1815; J2543; J3370; J7040

== ENCOUNTER 2020-12-24 14:29 | Outpatient (CLI) | payer MEDICARE, MEDICAID, SELFPAY ==
--- NOTE | ~2020-12-24 | XR_ITS ---
EXAMINATION: XR foot LT 2V DATE: 12/24/2020 16:21 INDICATION: Lacerations at the first and second toes. TECHNIQUE: Dorsoplantar and lateral views of the left foot were obtained. COMPARISON: None. FINDINGS: Relatively thick lucent defect with sclerotic margins extending across the third middle phalanx sugge sting a chronic nonunited fracture which remains in essentially anatomic alignment (aside from shorte antinoette of the middle phalanx relative to the middle phalanx on the contralateral right foot as seen on radiographs dated 11/07/2019). No other fractures identified. Mild polyarticular osteoarthritis at th e distal interphalangeal joints. No periosteal reaction or cortical erosions to suggest osteomyelitis . Extensive scattered vascular calcifications. No subcutaneous gas or radiopaque foreign bodies. IMPRESSION: 1. Likely chronic nonunited fracture of the third middle phalanx. No acute osseous abnormality. Reviewed, dictated and finalized at location A. ZING MACHINE OPERATOR IMPRESSION: 1. Likely chronic nonunited fracture of the third middle phalanx. No acute osse ous abnormality.
--- NOTE | ~2020-12-24 | US_ITS ---
EXAMINATION: US art doppler w press LE LT DATE: 12/24/2020 15:21 INDICATION: Type 1 diabetes with circulatory complications including toe ulcers. TECHNIQUE: Segmental pressures and plethysmographic and Doppler waveforms of the brachial and left lo wer extremity arteries were obtained. Prior right lower limb amputation. COMPARISON: None. FINDINGS: Right brachial artery pressures of 144 mm Hg. The left brachial artery pressures unable to be obtaine d due to the presence of a dialysis access at the left upper arm. Arterial pressures were unable to be obtained into the left lower limb due to inability to occlude th e vessels. Arterial waveforms are biphasic at the left common femoral artery with brisk systolic upst rokes at the common femoral, superficial femoral and popliteal arteries. There are dampened and broad ened systolic peaks at the left posterior tibial artery with delayed upstrokes. No detectable arteria l waveform at the left dorsalis pedis artery. Patient is status post right [id number] amputation. Patient unable to tolerate pressure measurements at the left thigh due to pain. IMPRESSION: 1. Significant arterial occlusive disease to the left lower limb with parvus et tardus arterial wavef orms with delayed upstrokes at the left posterior tibial artery and no discernible arterial waveforms at the left dorsalis pedis artery. Pressures unable to be obtained due to inability to occlude the v essels. Reviewed, dictated and finalized at location A. S SUPERINTENDENT IMPRESSION: 1. Significant arterial occlusive disease to the left lower limb with parvus et tardus arterial waveforms with delayed upstrokes at the left posterior tibial artery and no discernible arterial waveforms at the left dorsalis pedis artery. Pressures unable to be obtained due to inability to occlude the vessels.
== END 2020-12-24 14:30 | disposition home or self-care (01) ==
PROVIDERS: PCP Emergency Medicine; Visit Provider Emergency Medicine
DX: E10.59 Type 1 diabetes mellitus with other circulatory complications (principal); M79.673 Pain in unspecified foot
CPT/HCPCS: 73620; 93922

== ENCOUNTER 2021-01-08 18:26 | Emergency (ER) | payer MEDICARE, MEDICAID, SELFPAY ==
--- NOTE | ~2021-01-08 | XR_ITS ---
EXAMINATION: XR foot LT min 3V DATE: 01/08/2021 21:30 INDICATION: Left foot injury. TECHNIQUE: 4 views of left foot were obtained. COMPARISON: Left foot radiographs 12/24/2020 FINDINGS: Bone alignment is normal. There is a transverse extra-articular fracture of third middle ph alanx with sclerotic margins. There is mild osteoarthritis of first metatarsophalangeal joint and toni e the interphalangeal joints. IMPRESSION: 1. Ununited fracture of third middle phalanx, likely chronic. 2. Mild polyarticular osteoarthritis. Reviewed, dictated and finalized at location A. NING AND DEVELOPMENT COORDINATOR
--- NOTE | ~2021-01-08 | XR_ITS ---
EXAMINATION: XR toe 2nd LT min 2V DATE: 01/08/2021 21:34 INDICATION: Left foot injury. Black left toe. TECHNIQUE: 4 views of left second toe were obtained. COMPARISON: Left foot radiographs 12/24/2020 FINDINGS: Bone alignment is normal. Again seen is a transverse extra-articular fracture of third midd le phalanx with sclerotic margins. There is mild osteoarthritis of first metatarsophalangeal joint an d some of the interphalangeal joints. IMPRESSION: 1. Fracture of third middle phalanx, likely chronic. 2. Mild polyarticular osteoarthritis. Reviewed, dictated and finalized at location A. ETING SALES REPRESENTATIVE
[2021-01-08 20:54] VITALS: BP 164/63; PULSE 98; RESP 22; TEMP 36.7; O2SAT 93
--- NOTE | 2021-01-08 22:25 | ED.GENADULT ---
HPI - General Adult General Chief complaint: Extremity Injury, Lower Stated complaint: black toes/diabetic Time Seen by Provider: 01/08/21 22:07 Source: RN notes reviewed History of Present Illness HPI narrative: Patient presents to emergency department from home for left second toe wound patient states that initially it had a wound on his left second toe and was seen by his primary care physician the beginning of the month of December and was started on antibiotics at that time. He states that he had had some improvement and then a week ago he had slipped into bed and try to catch himself had kicked the wall causing pain in his left second toe he states that since that time is progressively become discolored and painful notes the pain is throbbing in nature denies any other trauma or injury denies any fevers or chills Related Data Home Medications Medication Instructions Recorded Confirmed carvedilol 50 mg PO DAILY 02/05/20 10/18/20 furosemide 80 mg PO BID 02/05/20 10/18/20 nitroglycerin 0.4 mg SUBLINGUAL Q5MIN PRN 02/05/20 10/18/20 pantoprazole 40 mg PO Q12H 02/05/20 10/18/20 aspirin 81 mg PO DAILY 07/02/20 10/18/20 Dang-Nilsa 1 tablet PO DAILY 07/23/20 10/18/20 lanthanum 1,000 mg PO TIDWM 07/23/20 10/18/20 nicotine 1 patch TRANSDERMAL DAILY 07/23/20 10/18/20 cholecalciferol (vitamin D3) 50 mcg PO DAILY 08/12/20 10/18/20 clopidogrel [Plavix] 75 mg PO DAILY 09/14/20 10/18/20 rosuvastatin 10 mg PO DAILY 09/14/20 10/18/20 albuterol sulfate 1 inh INHALATION QID 10/18/20 10/19/20 Allergies Allergy/AdvReac Type Severity Reaction Status Date / Time scopolamine Allergy Severe Unresponsiv Verified 01/08/21 21:53 e Review of Systems Review of Systems: Narrative: Gen.: Denies fevers or chills ENT: Denies congestion Respiratory: Denies shortness of breath or cough CV: Denies chest pain or palpitations GI: Denies abdominal pain nausea, emesis Musculoskeletal: Reports toe pain Neuro: Denies numbness, tingling, weakness or focal weakness Skin: See HPI Except as documented, all other systems reviewed and negative FORMERLY [facility], [facility] Past Medical History Medical History Anxiety Benign prostatic hyperplasia Bradycardic cardiac arrest (~07/23/20) In the setting of severe hyperkalemia, acute pulmonary edema, and respiratory failure Chronic anemia Congestive heart failure Echocardiogram in August 2020 showed a mildly enlarged left ventricular chamber, severely reduced left ventricular systolic function with an estimated ejection fraction of 25 to 30%, moderately increased LV wall thickness, grade 2 diastolic dysfunction, severe aortic valve sclerosis, mild mitral, tricuspid, and pulmonic valve regurgitation, mild pulmonary hypertension with an estimated arterial pressure 43 mmHg, and areas of hypokinesis including the apex, inferior wall, anterior wall, inferoseptal wall, anterolateral wall, and anteroseptal wall. Coronary artery disease With non STEMI in December 2019, with stent placed to the LAD. Depression with anxiety End-stage renal disease on hemodialysis Gastric ulcer On endoscopy per Dr. Pacheco in June 2020. Gastroesophageal reflux disease Hypertension Hypertension Renal osteodystrophy Seizure Secondary to hypoglycemia. ST elevation myocardial infarction (STEMI) (~06/26/20) Secondary to abrupt stent thrombosis of the LAD. Tobacco dependence Type 1 diabetes mellitus Diagnosed at the age of 10. Complicated by retinopathy, nephropathy, and neuropathy. Hemoglobin A1c was 7.6% in July 2020. Vitamin D deficiency disease Surgical History Surgical History History of endoscopy (~06/27/20) History of heart artery stent Stent in the LAD in December 2019. Patient had abrupt stent thrombosis of the previously placed stent to the LAD on June 26, 2020 left coronary with extraction thrombectomy and stenting distal to the original
[2021-01-08 22:48] LABS: Basophils Absolute Auto 0.1 K/mm3 (0.0-0.1); Basophils Percent Auto 0.4 % (0.2-1.2); Eosinophils Absolute Auto 0.2 K/mm3 (0-0.3); Eosinophils Percent Auto 1.1 % (0-4.4); Hematocrit 35.7 % (42.0-52.0); Hemoglobin 11.5 g/dL (14.0-18.0); Immature Granulocyte Absolute 0.06 K/mm3 (0.00-0.031); Immature Granulocyte Percent A 0.4 % (0-0.5); Lymphocytes Absolute Auto 0.98 K/mm3 (0.9-3.2); Lymphocytes Percent Auto 6.2 % (18.3-44.2); Mean Corpuscular HGB Conc 32.2 g/dl (32-36); Mean Corpuscular Hemoglobin 29.9 pg (26-34); Mean Platelet Volume 9.8 fl (7.4-10.4); Monocytes Absolute Auto 1.1 K/mm3 (0.1-0.6); Monocytes Percent Auto 7.1 % (2.6-8.5); Neutrophils Absolute Auto 13.4 K/mm3 (1.3-6.7); Neutrophils Percent Auto 84.8 % (45.5-73.1); Platelet Count Result 397 k/mm3 (150-375); Red Blood Count 3.84 M/mm3 (4.6-6.20); Red Cell Distribution Width 17.7 % (11.5-14.5); White Blood Count 15.8 K/mm3 (4.5-10.0)
[2021-01-08 23:04] LABS: Alanine Aminotransferase 11 U/L (4-50); Albumin Level 3.9 g/dL (3.5-5.1); Alkaline Phosphatase 110 U/L (38-126); Anion Gap 10 mmol/L (8-16); Aspartate Amino Transferase 22 U/L (17-59); Bilirubin,Total 0.4 mg/dL (0.2-1.3); Blood Urea Nitrogen 26 mg/dL (9-20); Calcium 8.2 mg/dL (8.4-10.2); Carbon Dioxide 28 mmol/L (22-30); Chloride 97 mmol/L (98-107); Estimated CRCL calculation 15 ml/min; Estimated Glomerular Filt Rate 13; Glucose 303 mg/dL (75-110); Potassium 3.9 mmol/L (3.4-5.0); Sodium 135 mmol/L (137-145)
[2021-01-08 23:05] LABS: Lactic Acid Reflex 0.9 mmol/L (0.7-2.1)
[2021-01-08] MEDS: HYDROcodone/acetaminophen (*CRX) 5-325 MG TABLET 1 TAB PO (23:47)
[2021-01-08] MEDS: CLINDAMYCIN HCL 150 MG CAP 300 MG PO (23:47)
== END 2021-01-08 23:56 | disposition home or self-care (01) ==
PROVIDERS: Emergency Provider Emergency Medicine; PCP Emergency Medicine
DX: L03.032 Cellulitis of left toe (principal); E10.52 Type 1 diabetes mellitus with diabetic peripheral angiopathy with gangrene; I96 Gangrene, not elsewhere classified; E10.319 Type 1 diabetes mellitus with unspecified diabetic retinopathy without macular edema; E10.40 Type 1 diabetes mellitus with diabetic neuropathy, unspecified; E10.22 Type 1 diabetes mellitus with diabetic chronic kidney disease; I13.2 Hypertensive heart and chronic kidney disease with heart failure and with stage 5 chronic kidney disease, or end stage renal disease; I50.9 Heart failure, unspecified; N18.6 End stage renal disease; F17.210 Nicotine dependence, cigarettes, uncomplicated; Z99.2 Dependence on renal dialysis; N40.0 Benign prostatic hyperplasia without lower urinary tract symptoms; D63.1 Anemia in chronic kidney disease; I25.10 Atherosclerotic heart disease of native coronary artery without angina pectoris; K21.9 Gastro-esophageal reflux disease without esophagitis; N25.0 Renal osteodystrophy; I25.2 Old myocardial infarction; E55.9 Vitamin D deficiency, unspecified; Z95.5 Presence of coronary angioplasty implant and graft; Z89.511 Acquired absence of right leg below knee; Z98.49 Cataract extraction status, unspecified eye; Z79.4 Long term (current) use of insulin
CPT/HCPCS: 36415; 73630; 73660; 80053; 83605; 85025; 87040; 99283; A9270

== ENCOUNTER 2021-01-10 23:51 | Inpatient (IN) | payer MEDICARE, MEDICAID, SELFPAY ==
--- NOTE | ~2021-01-10 | XR_ITS ---
EXAMINATION: XR chest 1V portable DATE: 01/11/2021 00:27 INDICATION: Cough. Shortness of breath. TECHNIQUE: A single frontal view of the chest was obtained on 2 radiographs. COMPARISON: Chest single view 10/18/2020, CT abdomen and pelvis 07/20/2020 FINDINGS: There is a diffuse interstitial pattern in the lungs, consistent with mild pulmonary edema. No pleural effusion or pneumothorax. The heart size is normal. IMPRESSION: 1. Mild pulmonary edema. Reviewed, dictated and finalized at location A. NG PAN TENDER IMPRESSION: 1. Mild pulmonary edema.
--- NOTE | ~2021-01-10 | NM_ITS ---
EXAM: NM gastric emptying study DATE: 01/14/2021 12:32 INDICATION: Nausea and vomiting TECHNIQUE: A gastric emptying study was performed using the methodology of Randall REY, et al. J Nucl Med 2007; 48:568-572. The patient was given a meal consisting of 2 scrambled eggs labeled with 1 mCi Tc-99m sulfur colloid, 2 slices of toast, two packages of jam, and approximately 120 mL of water. Si multaneous anterior and posterior 1-min images of the abdomen were obtained with the patient supine a t multiple time points over a total period of 4 hours. The geometric mean of anterior and posterior v iews was determined, and the percentage retention was calculated for each time point. COMPARISON: None. FINDINGS: Gastric retention of the radiotracer-labeled meal was 105%, 104%, and 94% at the 1-hour, 2-hour, and 4-hour time points, respectively. With this technique, apparent rapid gastric emptying is suggested b y <30% gastric retention at 1 hour. Delayed gastric emptying is defined by gastric retention of >90% at 1 hour, >60% retention at 2 hours, or >10% retention at 4 hours. IMPRESSION: 1. Delayed gastric emptying. Reviewed, dictated and finalized at location B. NG AND QUARRYING MACHINERY REPAIRER
--- NOTE | ~2021-01-10 | US_ITS ---
EXAMINATION: US retroperitoneal duplex ltd DATE: 01/13/2021 09:53 INDICATION: hypertension TECHNIQUE: Multiple grayscale, color Doppler, and pulsed Doppler images of the kidneys and renal pauline suki were obtained. COMPARISON: 01/22/2020 FINDINGS: The aorta peak systolic velocity is 100 cm/s. The right renal artery peak systolic velocity is 42 cm/ s in the proximal segment, 51 cm/s in the mid segment, and 66 cm/s in the distal segment. The left re nal artery peak systolic velocity is 79 cm/s in the proximal segment, 51 cm/s in the mid segment, and 31 cm/s in the distal segment. Again noted are echogenic calcifications at the bilateral renal munir which on CT dated 07/20/2020 appear to correspond to atherosclerotic calcifications. IMPRESSION: 1. No Doppler evidence of renal artery stenosis. Reviewed, dictated and finalized at location B. BULATORY CARE NURSE
[2021-01-10 23:52] VITALS: BP 228/143; PULSE 147; RESP 40; TEMP 35.7; O2SAT 100
--- NOTE | 2021-01-10 23:58 | PC.NURSE ---
Pt given 40mg of IVP Lasix
--- NOTE | 2021-01-10 23:58 | PC.NURSE ---
1 of nitro past applied to patient's R chest.
[2021-01-11] VITALS (39 sets, daily range): BP systolic 132–224; BP diastolic 75–135; PULSE 55–146; RESP 18–42; TEMP 35.7–36.8; O2SAT 94–100; BMI 21.2
[2021-01-11 00:11] LABS: Basophils Absolute Auto 0.1 K/mm3 (0.0-0.1); Basophils Percent Auto 0.5 % (0.2-1.2); Eosinophils Absolute Auto 0.5 K/mm3 (0-0.3); Eosinophils Percent Auto 2.7 % (0-4.4); Hematocrit 42.6 % (42.0-52.0); Hemoglobin 13.3 g/dL (14.0-18.0); Immature Granulocyte Absolute 0.12 K/mm3 (0.00-0.031); Immature Granulocyte Percent A 0.7 % (0-0.5); Lymphocytes Absolute Auto 3.04 K/mm3 (0.9-3.2); Lymphocytes Percent Auto 16.6 % (18.3-44.2); Mean Corpuscular HGB Conc 31.2 g/dl (32-36); Mean Corpuscular Hemoglobin 29.7 pg (26-34); Mean Corpuscular Volume 95.1 fl (80-100); Monocytes Absolute Auto 1.2 K/mm3 (0.1-0.6); Monocytes Percent Auto 6.4 % (2.6-8.5); Neutrophils Absolute Auto 13.4 K/mm3 (1.3-6.7); Neutrophils Percent Auto 73.1 % (45.5-73.1); Platelet Count Result 569 k/mm3 (150-375); Red Blood Count 4.48 M/mm3 (4.6-6.20); White Blood Count 18.3 K/mm3 (4.5-10.0)
[2021-01-11 00:19] LABS: Alveolar/Arterial O2 Gradient 209.2 mmHg; Base Excess ABG -7.8 mEq/l (+/-2.0); Fractional Inspired Oxygen 50 %; HCO3 ABG 17.6 mEq/l (22.0-26.0); Oxygen Content ABG 17.5 %vol (16.0-22.0); Oxygen Saturation ABG 97.5 % (95.0-100.0); Oxyhemoglobin 94.3 % THb (90.0-100.0); PCO2 ABG 35.7 mmHg (35.0-45.0); PO2 ABG 107.1 mmHg (80.0-100.0); PO2 FiO2 Ratio Arterial Blood 2.14 %; Total Hemoglobin 13.1 g/dL (12.0-18.0); pH ABG 7.311 (7.350-7.450)
[2021-01-11 00:21] LABS: Prothrombin Time 13.4 Seconds (11.1-14.7)
[2021-01-11 00:22] LABS: Partial Thromboplastin Time 38.6 SECONDS (22.3-36.8)
[2021-01-11 00:24] LABS: Alanine Aminotransferase 16 U/L (4-50); Albumin Level 4.4 g/dL (3.5-5.1); Alkaline Phosphatase 128 U/L (38-126); Anion Gap 23 mmol/L (8-16); Aspartate Amino Transferase 34 U/L (17-59); Bilirubin,Total 0.7 mg/dL (0.2-1.3); Blood Urea Nitrogen 61 mg/dL (9-20); Calcium 8.8 mg/dL (8.4-10.2); Carbon Dioxide 22 mmol/L (22-30); Chloride 98 mmol/L (98-107); Estimated Glomerular Filt Rate 6; Glucose 184 mg/dL (75-110); Potassium 4.6 mmol/L (3.4-5.0); Sodium 143 mmol/L (137-145)
[2021-01-11 00:25] LABS: Device NON-INVASIVE VENT; Modified Allen's Test Pass; Site Drawn RIGHT RADIAL
[2021-01-11 00:26] LABS: Non-Invasive Expiratory Pressure 5 CMH2O; Non-Invasive Inspiratory Pressure 14 CMH2O; Non-Invasive Vent Rate 4 /MIN
[2021-01-11 00:38] LABS: NT Pro B Type Natriuretic Pept > 35000 PG/ML (5-100); Troponin I 0.035 ng/mL (0.000-0.034)
--- NOTE | 2021-01-11 00:47 | ED.GENADULT ---
HPI - General Adult General Chief complaint: Shortness of Breath/Dyspnea Stated complaint: respiratory distress Source: RN notes reviewed History of Present Illness HPI narrative: Patient presents to emergency department from home via EMS for respiratory distress. EMS was called out tonight for shortness of breath that began 5 minutes prior to calling EMS. The patient has a history of flash pulmonary edema and is well-known to this facility for similar episodes in the past requiring intubation patient is unable to give any history at this time he was placed on CPAP by EMS Related Data Home Medications Medication Instructions Recorded Confirmed carvedilol 50 mg PO DAILY 02/05/20 01/11/21 furosemide 80 mg PO BID 02/05/20 01/11/21 nitroglycerin 0.4 mg SUBLINGUAL Q5MIN PRN 02/05/20 10/18/20 pantoprazole 40 mg PO Q12H 02/05/20 10/18/20 aspirin 81 mg PO DAILY 07/02/20 10/18/20 Dang-Nilsa 1 tablet PO DAILY 07/23/20 10/18/20 lanthanum 1,000 mg PO TIDWM 07/23/20 10/18/20 nicotine 1 patch TRANSDERMAL DAILY 07/23/20 10/18/20 cholecalciferol (vitamin D3) 50 mcg PO DAILY 08/12/20 10/18/20 clopidogrel [Plavix] 75 mg PO DAILY 09/14/20 10/18/20 rosuvastatin 10 mg PO DAILY 09/14/20 10/18/20 albuterol sulfate 1 inh INHALATION QID 10/18/20 10/19/20 atorvastatin 80 mg PO HS 01/11/21 01/11/21 carvedilol 25 mg PO HS 01/11/21 01/11/21 lorazepam 0.5 mg PO BID 01/11/21 01/11/21 ropinirole mg 01/11/21 sevelamer carbonate 800 mg PO TID 01/11/21 01/11/21 Allergies Allergy/AdvReac Type Severity Reaction Status Date / Time scopolamine Allergy Severe Unresponsiv Verified 01/08/21 21:53 e Review of Systems Review of Systems: ROS unobtainable: Yes unobtainable due to medical condition PMFSH Past Medical History Medical History Anxiety Benign prostatic hyperplasia Bradycardic cardiac arrest (~07/23/20) In the setting of severe hyperkalemia, acute pulmonary edema, and respiratory failure Chronic anemia Congestive heart failure Echocardiogram in August 2020 showed a mildly enlarged left ventricular chamber, severely reduced left ventricular systolic function with an estimated ejection fraction of 25 to 30%, moderately increased LV wall thickness, grade 2 diastolic dysfunction, severe aortic valve sclerosis, mild mitral, tricuspid, and pulmonic valve regurgitation, mild pulmonary hypertension with an estimated arterial pressure 43 mmHg, and areas of hypokinesis including the apex, inferior wall, anterior wall, inferoseptal wall, anterolateral wall, and anteroseptal wall. Coronary artery disease With non STEMI in December 2019, with stent placed to the LAD. Depression with anxiety End-stage renal disease on hemodialysis Gastric ulcer On endoscopy per Dr. Pacheco in June 2020. Gastroesophageal reflux disease Hypertension Hypertension Renal osteodystrophy Seizure Secondary to hypoglycemia. ST elevation myocardial infarction (STEMI) (~06/26/20) Secondary to abrupt stent thrombosis of the LAD. Tobacco dependence Type 1 diabetes mellitus Diagnosed at the age of 10. Complicated by retinopathy, nephropathy, and neuropathy. Hemoglobin A1c was 7.6% in July 2020. Vitamin D deficiency disease Surgical History Surgical History History of endoscopy (~06/27/20) History of heart artery stent Stent in the LAD in December 2019. Patient had abrupt stent thrombosis of the previously placed stent to the LAD on June 26, 2020 left coronary with extraction thrombectomy and stenting distal to the original stent with upsizing of the original stent. History of right below knee amputation History of spinal surgery Neurostimulator in place. Status post below knee amputation of right lower extremity (~12/02/19) Performed [facility]. Status post cataract extraction Status post creation of arteriovenous fistula Left upper extremity. Status post
--- NOTE | 2021-01-11 00:57 | ECG_ITS ---
Measurements Intervals [place] Rate: 116 P: 66 MO: 152 QRS: 72 QRSD: 93 T: 91 QT: 344 QTc: 478 Interpretive Statements SINUS TACHYCARDIA POSSIBLE LEFT ATRIAL ENLARGEMENT POOR R WAVE PROGRESSION, CONSIDER ANTEROSEPTAL INFARCT BORDERLINE ST-T WAVE ABNORMALITY- INF/HIGH LAT LEADS BASELINE ARTIFACT- V4-V6 ABNORMAL ECG Electronically Signed On 01-11-2021 20:19:19 DATA MANAGEMENT ASSOCIATE by Edmond Elias D.O.
--- NOTE | 2021-01-11 01:41 | PM.IMHP ---
H&P: HPI History of Present Illness Date/Time: 01/11/21 01:41 Chief Complaint: Acute respiratory distress tonight++ Narrative: This is a 55 year old Diabetic male with known ESRD on HD who presented to the hospital [facility] in acute respiratory distress. The patient has not missed any of his dialysis sessions and today he spent most of the time sleeping in bed. He had a short episode of respiratory difficulty earlier in the day but it resolved quickly. Tonight while laying down he began to have respiratory difficulty which did not improve. He does have a history of previous flash pulmonary edema requiring intubation and mechanical ventilation. The patient was seen in the ER a few days ago for a necrotic second toe of his left foot for which he has been on antibiotics and is supposed to follow up with general surgery tomorrow for a possible amputation. He complains of ongoing foot pain. Tonight he denies any fever, chills, cough, worsening LE swelling, rectal bleeding, dark black stools, palpitations, or focal neurological symptoms. On arrival to the ER [facility] the patient was placed on Bipap for his acute respiratory distress. Routine labs demonstrated leukocytosis of 18,300 and an elevated troponin of 0.035. General Surgery and Nephrology have been consulted by ER provider and we were asked to admit the patient for further care. Review of Systems Review of Systems: All systems reviewed & are unremarkable except as noted in HPI and below PMFSH Past Medical History Medical History Anxiety Benign prostatic hyperplasia Bradycardic cardiac arrest (~07/23/20) In the setting of severe hyperkalemia, acute pulmonary edema, and respiratory failure Chronic anemia Congestive heart failure Echocardiogram in August 2020 showed a mildly enlarged left ventricular chamber, severely reduced left ventricular systolic function with an estimated ejection fraction of 25 to 30%, moderately increased LV wall thickness, grade 2 diastolic dysfunction, severe aortic valve sclerosis, mild mitral, tricuspid, and pulmonic valve regurgitation, mild pulmonary hypertension with an estimated arterial pressure 43 mmHg, and areas of hypokinesis including the apex, inferior wall, anterior wall, inferoseptal wall, anterolateral wall, and anteroseptal wall. Coronary artery disease With non STEMI in December 2019, with stent placed to the LAD. Depression with anxiety End-stage renal disease on hemodialysis Gastric ulcer On endoscopy per Dr. Pacheco in June 2020. Gastroesophageal reflux disease Hypertension Hypertension Renal osteodystrophy Seizure Secondary to hypoglycemia. ST elevation myocardial infarction (STEMI) (~06/26/20) Secondary to abrupt stent thrombosis of the LAD. Tobacco dependence Type 1 diabetes mellitus Diagnosed at the age of 10. Complicated by retinopathy, nephropathy, and neuropathy. Hemoglobin A1c was 7.6% in July 2020. Vitamin D deficiency disease Surgical History Surgical History History of endoscopy (~06/27/20) History of heart artery stent Stent in the LAD in December 2019. Patient had abrupt stent thrombosis of the previously placed stent to the LAD on June 26, 2020 left coronary with extraction thrombectomy and stenting distal to the original stent with upsizing of the original stent. History of right below knee amputation History of spinal surgery Neurostimulator in place. Status post below knee amputation of right lower extremity (~12/02/19) Performed [facility]. Status post cataract extraction Status post creation of arteriovenous fistula Left upper extremity. Status post hemorrhoidectomy Family History Family History Father Hypertension Sibling Multiple myeloma Hypertension Mother Acute myelogenous leukemia Heart disease Social Hi
[2021-01-11 02:50] LABS: Lactic Acid Reflex 1.3 mmol/L (0.7-2.1)
--- NOTE | 2021-01-11 03:25 | ADMGEN ---
This patient, Ish Corley, was admitted to IMU Room 200-01. Patient/family oriented to hospital policies and general routines including ID bracelet, bed and alarms, visiting hours, pain management, procedures, bathroom and other care routines, personal items, smoking policy, room service/diet, and visiting hours. Information on how to activate the Rapid Response Team has been discussed. Patient/Family are encouraged to report perceived risks to care and to ask questions if they do not understand what they are told or what they should do.
[2021-01-11 04:04] LABS: Troponin I 0.065 ng/mL (0.000-0.034)
[2021-01-11] MEDS: MORPHINE SULFATE (*CRX) 2 MG/ML INJ IV PUSH ×5 (04:17→22:14)
[2021-01-11 04:36] LABS: Glucose Point of Care 199 (65-105)
[2021-01-11 06:31] LABS: Estimated CRCL calculation 6 ml/min; Estimated Glomerular Filt Rate 5
[2021-01-11 06:41] LABS: Troponin I 0.156 ng/mL (0.000-0.034)
[2021-01-11] MEDS: IMIPENEM/CILASTATIN SODIUM 200 MG in DEXTROSE 5% 100 ML 300 MG IVPB ×3 (08:57→21:24)
--- NOTE | 2021-01-11 09:01 | PM.CNNEP ---
Assessment and Plan Assessment and plan (1) ESRD (end stage renal disease) on dialysis: Code(s): N18.6 - End stage renal disease; Z99.2 - Dependence on renal dialysis Status: Chronic Assessment and Plan: Ish has end-stage renal disease. He has not missed any treatments. He does have problems with weight gains at times and also has problems with high blood pressure, both of which contribute to these episodes of pulmonary edema. Part of the pulmonary edema is because of his very high blood pressures which cause increased afterload. Part is the excess fluid intake that sometimes occurs with Ish. He has been trying diligently to reduce that. Will do dialysis today to remove fluid. His blood pressure is already better (2) Acute respiratory failure: Qualifiers: Respiratory failure complication: unspecified whether with hypoxia or hypercapnia Qualified Code(s): J96.00 - Acute respiratory failure, unspecified whether with hypoxia or hypercapnia Code(s): J96.00 - Acute respiratory failure, unspecified whether with hypoxia or hypercapnia Status: Acute Assessment and Plan: pulmonary edema . Blood pressure is under better control and will redo move fluid with dialysis today (3) Cellulitis of foot: Code(s): L03.119 - Cellulitis of unspecified part of limb Status: Acute Assessment and Plan: he is getting antibiotics and is undergoing evaluation of this foot. (4) Cardiomyopathy: Code(s): I42.9 - Cardiomyopathy, unspecified Status: Chronic Assessment and Plan: EF only 25-30%. (5) Hypertension: Qualifiers: Hypertension type: unspecified Qualified Code(s): I10 - Essential (primary) hypertension Code(s): I10 - Essential (primary) hypertension Status: Chronic Assessment and Plan: His blood pressure is better (6) Anemia: Code(s): D64.9 - Anemia, unspecified Status: Acute Assessment and Plan: hemoglobin is 13. Will not need EPO today. (7) Erythropoietin deficiency anemia: Code(s): D63.1 - Anemia in chronic kidney disease Status: Acute (8) Tobacco abuse: Code(s): Z72.0 - Tobacco use Status: Acute (9) IDDM (insulin dependent diabetes mellitus): Status: Chronic History of Present Illness Reason for Consult Consult date: 01/11/21 Chief Complaint Chief complaint: Acute respiratory failure with hypoxia, History of Present Illness Narrative: Ish is a very pleasant 55-year-old gentleman who has multiple medical problems including end-stage renal disease on dialysis 3 times a week, hypertension, diabetes, peripheral vascular disease status post left below the knee amputation, anxiety, depression, coronary disease status post stents, congestive heart failure with an EF of 25-30%, cardiac arrest in the past, renal osteodystrophy with severely high phosphorus levels, anemia from chronic kidney disease, hyperlipidemia, ongoing cigarette smoking who in his usual state of health until yesterday when he developed sudden onset shortness of breath. They called 911 and took him to the ER. He was found to be in pulmonary edema. They gave him some oxygen and then placed him on a BiPAP mask. His blood pressure was also high so they gave him medications for that. He improved dramatically.He did not need to have emergency dialysis last night. Today he feels better but is still on the BiPAP machine. No chest pain or shortness of breath now. Has no swelling or joint pains. Over the last 3 weeks the patient has developed a black 2nd toe on his right foot. He is seeing an orthopedic surgeon about this. He says that he has quite a bit of pain in the right foot all the way to the heel on the sole of the foot and also some pain on the dorsum of the foot to about nursing home up. He went to dialysis routinely. His blood pressures been doing pretty well on
--- NOTE | 2021-01-11 12:54 | PM.CNGS ---
Assessment and Plan Assessment and plan (1) Sepsis: Qualifiers: Sepsis type: sepsis due to unspecified organism Sepsis acute organ dysfunction status: with acute organ dysfunction Severe sepsis acute organ dysfunction type: acute respiratory failure Acute respiratory failure type: unspecified Severe sepsis shock status: unspecified Qualified Code(s): A41.9 - Sepsis, unspecified organism; R65.20 - Severe sepsis without septic shock; J96.00 - Acute respiratory failure, unspecified whether with hypoxia or hypercapnia Code(s): A41.9 - Sepsis, unspecified organism Status: Acute Assessment and Plan: Criteria met on admission. WBC 18,300. Lactic acid normal. Hemodynamically stable and tachycardia has resolved. Concern of the left foot infection being the source. Continue IV antibiotics and IV fluids. Blood cultures pending. (2) Cellulitis of foot: Code(s): L03.119 - Cellulitis of unspecified part of limb Status: Acute Assessment and Plan: The patient has dry gangrene of the left 2nd toe with surrounding cellulitis of the left foot. This is a potential source for the leukocytosis. He will eventually need at least a left second toe amputation, but we would recommend to continue with the IV antibiotics for now and allow the primary team to improve his overall respiratory status prior to proceeding with any surgical intervention. The patient also has significant peripheral arterial disease as evidenced by his arterial doppler and exam. We can proceed with surgery at this facility to gain source control, but he may have prolonged healing or complications with healing due to his PAD. He will eventually need an evaluation from a vascular surgeon as well. He was seen at [facility] in the past when he had his BKA on the right. I discussed all of this with the patient and treatment options at this time. He is agreeable to the plan. We will re-evaluate the patient tomorrow and decipher if he is medically stable to proceed with surgery. 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 Will receive hemodialysis today. Management per Hospitalist and Nephrology. (5) PAD (peripheral artery disease): Code(s): I73.9 - Peripheral vascular disease, unspecified Status: Acute Assessment and Plan: Arterial doppler on 12/24/20 showing significant arterial occlusive disease to the left lower limb. Will need to be evaluated by a vascular surgeon. See plan above. (6) ESRD (end stage renal disease) on dialysis: Code(s): N18.6 - End stage renal disease; Z99.2 - Dependence on renal dialysis Status: Chronic Assessment and Plan: Nephrology consulted and planning hemodialysis today. (7) IDDM (insulin dependent diabetes mellitus): Status: Chronic (8) Cardiomyopathy: Code(s): I42.9 - Cardiomyopathy, unspecified Status: Chronic (9) CHF (congestive heart failure): Qualifiers: Heart failure type: combined systolic and diastolic Heart failure chronicity: acute on chronic Qualified Code(s): I50.43 - Acute on chronic combined systolic (congestive) and diastolic (congestive) heart failure Code(s): I50.9 - Heart failure, unspecified Status: Acute Assessment and Plan: Echo (June 2020) showed EF 25-30% with severe aortic valve sclerosis, mild MVR, and pulm HTN. (10) CAD (coronary artery disease): Code(s): I25.10 - Atherosclerotic heart disease of [place] coronary artery without angina
[2021-01-11 13:01] LABS: Glucose Point of Care 250 (65-105)
[2021-01-11] MEDS: INSULIN ASPART (*BKC) 100 UNITS/ML SUB-Q (14:17)
--- NOTE | 2021-01-11 14:20 | PM.IMPN ---
Progress Note: A&P Assessment and Plan (1) Acute respiratory failure: Qualifiers: Respiratory failure complication: unspecified whether with hypoxia or hypercapnia Qualified Code(s): J96.00 - Acute respiratory failure, unspecified whether with hypoxia or hypercapnia Code(s): J96.00 - Acute respiratory failure, unspecified whether with hypoxia or hypercapnia Status: Acute Assessment and Plan: Volume overload pt had lasix in ED will benefit from dialysis and oxygen delivery (2) Flash pulmonary edema: Code(s): J81.0 - Acute pulmonary edema Status: Acute Assessment and Plan: Nephrology on the case, pt should have dialysis soon (3) Sepsis: Qualifiers: Sepsis type: sepsis due to unspecified organism Sepsis acute organ dysfunction status: with acute organ dysfunction Severe sepsis acute organ dysfunction type: acute respiratory failure Acute respiratory failure type: unspecified Severe sepsis shock status: unspecified Qualified Code(s): A41.9 - Sepsis, unspecified organism; R65.20 - Severe sepsis without septic shock; J96.00 - Acute respiratory failure, unspecified whether with hypoxia or hypercapnia Code(s): A41.9 - Sepsis, unspecified organism Status: Acute Assessment and Plan: Source of sepsis appears to be cellulitis. Continue IV imipenem and vancomycin (4) Cellulitis of foot: Code(s): L03.119 - Cellulitis of unspecified part of limb Status: Acute Assessment and Plan: see above (5) Toe necrosis: Code(s): I96 - Gangrene, not elsewhere classified Status: Chronic Assessment and Plan: General surgery has been consulted (6) Elevated troponin: Code(s): R77.8 - Other specified abnormalities of plasma proteins Status: Acute Assessment and Plan: Likely secondary to ESRD. (7) Leukocytosis: Qualifiers: Leukocytosis type: unspecified Qualified Code(s): D72.829 - Elevated white blood cell count, unspecified Code(s): D72.829 - Elevated white blood cell count, unspecified Status: Acute Assessment and Plan: Appears to be secondary to cellulitis and gangrenous left toe (8) Hypertension: Qualifiers: Hypertension type: unspecified Qualified Code(s): I10 - Essential (primary) hypertension Code(s): I10 - Essential (primary) hypertension Status: Chronic Assessment and Plan: Elevated. (9) Metabolic acidosis: Code(s): E87.2 - Acidosis Status: Chronic Assessment and Plan: Likely secondary to ESRD. Monitor acid-base status. We will consider sodium bicarbonate administration if necessary. (10) ESRD (end stage renal disease) on dialysis: Code(s): N18.6 - End stage renal disease; Z99.2 - Dependence on renal dialysis Status: Chronic Assessment and Plan: Nephrology has been consulted. (11) IDDM (insulin dependent diabetes mellitus): Status: Chronic Assessment and Plan: Accuchecks, SSI Coverage, long acting glargine insulin. Subjective Date/time seen: 01/11/21 14:20 Interval history: 55 year old Diabetic male with known ESRD on HD who presented to the [facility] in acute respiratory distress. Also having on going foot pain with gangrene. Pt seen by surgery and nephrology today. Review of Systems Review of Systems: All systems reviewed & are unremarkable except as noted in HPI and below Exam Const: General: cooperative, alert, awake and other (chronically ill appearing ) Nutritional Appearance: thin Orientation/consciousness: patient oriented x3 Resp: Auscultation: diminished lung sounds Cardio: Rhythm: regular rhythm Heart sounds: no murmurs Skin: General skin exam: normal color and no rashes or lesions noted Neuro: General: patient oriented x3 Cranial nerves: Yes CN's II-XII intact bilaterally and Yes Equal, round and reactive pupils present Speec
[2021-01-11] MEDS: NICOTINE (*PBKC) 21 MG PATCH 1 PATCH TRANSDERM (15:27)
[2021-01-11 20:12] LABS: Glucose Point of Care 141 (65-105)
[2021-01-11] MEDS: TICAGRELOR 90 MG TABLET PO (21:22)
[2021-01-11] MEDS: INSULIN GLARGINE (*BKC) 100 UNITS/ML 10 UNITS SUB-Q (21:23)
[2021-01-11] MEDS: FUROSEMIDE 80 MG TABLET PO (21:24)
[2021-01-11] MEDS: SEVELAMER CARBONATE 800 MG TABLET PO (21:24)
[2021-01-11] MEDS: carvediloL 25 MG TABLET PO (21:25)
[2021-01-11] MEDS: ATORVASTATIN 40 MG TABLET 80 MG PO (21:25)
[2021-01-11] MEDS: rOPINIRole HCL 0.25 MG TABLET PO (21:25)
[2021-01-11] MEDS: LORazepam (*CRX) 0.5 MG TABLET PO (21:47)
[2021-01-11] MEDS: ALBUTEROL SULFATE (*SP) AEROSOL 1 PUFF INHALATION (22:45)
[2021-01-11] MEDS: TEMAZEPAM (*CRX) 15 MG CAPSULE PO (23:41)
[2021-01-12] VITALS (16 sets, daily range): BP systolic 129–170; BP diastolic 58–99; PULSE 76–102; RESP 16–20; TEMP 35.8–36.6; O2SAT 94–100
[2021-01-12] MEDS: MORPHINE SULFATE (*CRX) 2 MG/ML INJ IV PUSH ×2 (01:58→06:05)
[2021-01-12] MEDS: IMIPENEM/CILASTATIN SODIUM 200 MG in DEXTROSE 5% 100 ML 300 MG IVPB ×4 (01:58→20:18)
[2021-01-12 05:27] LABS: Basophils Absolute Auto 0.1 K/mm3 (0.0-0.1); Basophils Percent Auto 0.6 % (0.2-1.2); Eosinophils Absolute Auto 0.1 K/mm3 (0-0.3); Eosinophils Percent Auto 1.1 % (0-4.4); Hematocrit 36.7 % (42.0-52.0); Hemoglobin 11.9 g/dL (14.0-18.0); Immature Granulocyte Absolute 0.06 K/mm3 (0.00-0.031); Immature Granulocyte Percent A 0.5 % (0-0.5); Lymphocytes Absolute Auto 1.51 K/mm3 (0.9-3.2); Lymphocytes Percent Auto 13.2 % (18.3-44.2); Mean Corpuscular HGB Conc 32.4 g/dl (32-36); Mean Corpuscular Hemoglobin 29.8 pg (26-34); Mean Platelet Volume 10.2 fl (7.4-10.4); Monocytes Absolute Auto 0.9 K/mm3 (0.1-0.6); Monocytes Percent Auto 8.2 % (2.6-8.5); Neutrophils Absolute Auto 8.8 K/mm3 (1.3-6.7); Neutrophils Percent Auto 76.4 % (45.5-73.1); Platelet Count Result 501 k/mm3 (150-375); Red Blood Count 3.99 M/mm3 (4.6-6.20); Red Cell Distribution Width 17.3 % (11.5-14.5); White Blood Count 11.5 K/mm3 (4.5-10.0)
[2021-01-12 05:32] LABS: Alanine Aminotransferase 12 U/L (4-50); Alkaline Phosphatase 112 U/L (38-126); Anion Gap 12 mmol/L (8-16); Aspartate Amino Transferase 24 U/L (17-59); Bilirubin,Total 0.7 mg/dL (0.2-1.3); Blood Urea Nitrogen 36 mg/dL (9-20); Calcium 9.3 mg/dL (8.4-10.2); Carbon Dioxide 34 mmol/L (22-30); Chloride 92 mmol/L (98-107); Estimated CRCL calculation 11 ml/min; Estimated Glomerular Filt Rate 10; Glucose 244 mg/dL (75-110); Phosphorus 6.1 mg/dL (2.5-4.5); Potassium 4.2 mmol/L (3.4-5.0); Sodium 138 mmol/L (137-145)
[2021-01-12] MEDS: INSULIN ASPART (*BKC) 100 UNITS/ML SUB-Q ×3 (06:05→16:47)
[2021-01-12] MEDS: FUROSEMIDE 80 MG TABLET PO ×2 (08:52→16:47)
[2021-01-12] MEDS: ASPIRIN 81 MG ENTERIC TABLET PO (08:52)
[2021-01-12] MEDS: SERTRALINE HCL 50 MG TABLET 100 MG PO (08:52)
[2021-01-12] MEDS: NICOTINE (*PBKC) 21 MG PATCH 1 PATCH TRANSDERM (08:52)
[2021-01-12] MEDS: VITAMIN B CMPLX/VIT C/FOLIC AC 1 CAPSULE 1 CAP PO (08:53)
[2021-01-12] MEDS: carvediloL 25 MG TABLET 50 MG PO (08:53)
--- NOTE | 2021-01-12 09:36 | PM.PNNEP ---
Progress Note: A&P Assessment and Plan (1) ESRD (end stage renal disease) on dialysis: Code(s): N18.6 - End stage renal disease; Z99.2 - Dependence on renal dialysis Status: Chronic Assessment and Plan: Ish has end-stage renal disease. He had dialysis yesterday and is due tomorrow. (2) Acute respiratory failure: Qualifiers: Respiratory failure complication: unspecified whether with hypoxia or hypercapnia Qualified Code(s): J96.00 - Acute respiratory failure, unspecified whether with hypoxia or hypercapnia Code(s): J96.00 - Acute respiratory failure, unspecified whether with hypoxia or hypercapnia Status: Acute Assessment and Plan: He had pulmonary edema, probably more from his blood pressure than from his weight gains. . This is improved now after fluid removal in dialysis. Breathing comfortably on room air (3) Cellulitis of foot: Code(s): L03.119 - Cellulitis of unspecified part of limb Status: Acute Assessment and Plan: he is getting antibiotics and is undergoing evaluation of this foot. Orthopedics saw yesterday. Her deciding about amputation. (4) Cardiomyopathy: Code(s): I42.9 - Cardiomyopathy, unspecified Status: Chronic Assessment and Plan: EF only 25-30%. (5) Hypertension: Qualifiers: Hypertension type: unspecified Qualified Code(s): I10 - Essential (primary) hypertension Code(s): I10 - Essential (primary) hypertension Status: Chronic Assessment and Plan: His blood pressure is better (6) Anemia: Code(s): D64.9 - Anemia, unspecified Status: Acute Assessment and Plan: hemoglobin is 13. Will not need EPO today. (7) Erythropoietin deficiency anemia: Code(s): D63.1 - Anemia in chronic kidney disease Status: Acute (8) Tobacco abuse: Code(s): Z72.0 - Tobacco use Status: Acute (9) IDDM (insulin dependent diabetes mellitus): Status: Chronic Subjective Date/time seen: 01/12/21 09:36 Interval history: Ish is feeling much better today. He is off the BiPAP machine and is breathing fine without any oxygen. He did well on dialysis yesterday. He still has pain in his left toe. He is getting morphine for this. Review of Systems Cardiovascular: Cardiovascular: Reports no additional cardiovascular complaints Respiratory: Respiratory: Reports no additional respiratory complaints Gastrointestinal: Gastrointestinal: Reports no additional gastrointestinal complaints Genitourinary: Genitourinary: Reports no additional male genitourinary complaints Exam Narrative: Exam Narrative: WDWN in NAD skin no rash head ncat lungs clear cor reg no rub abd BS+ nontender and soft ext no edema. Right [id number] amputation. Left foot has a necrotic 2nd toe and erythema proximal to that. Objective Data Vital Signs Vital Signs: Vital Signs - 24 hr 01/11/21 10:00 01/11/21 12:00 01/11/21 14:00 Temperature 36.4 C Pulse Rate 94 92 102 H Respiratory Rate 18 Blood Pressure 167/75 H Pulse Oximetry 100 01/11/21 15:40 01/11/21 15:54 01/11/21 16:00 Temperature 36.8 C Pulse Rate 92 90 93 Respiratory Rate 18 Blood Pressure 171/89 H 169/91 H 178/91 H Pulse Oximetry 98 01/11/21 16:15 01/11/21 16:30 01/11/21 16:45 Temperature Pulse Rate 90 94 Respiratory Rate Blood Pressure 171/89 H 161/82 H 155/92 H Pulse Oximetry 01/11/21 17:00 01/11/21 17:15 01/11/21 17:30 Temperature Pulse Rate 95 100 100 Respiratory Rate Blood Pressure 161/82 H 164/83 H 149/86 H Pulse Oximetry 01/11/21 17:45 01/11/21 18:00 01/11/21 18:15 Temperature Pulse Rate 101 H 100 107 H Respiratory Rate Blood Pressure 167/88 H 168/85 H 178/87 H Pulse Oximetry 01/11/21 18:30 01/11/21 18:45 01/11/21 19:00 Temperature Pulse Rate 100 101 H 96 Respiratory Rate Blood Pressure 169/89 H
[2021-01-12] MEDS: ONDANSETRON INJ 4 MG/2 ML VIAL IV PUSH (10:04)
[2021-01-12] MEDS: HYDROmorphone HCL INJ (*CRX) 1 MG/ML SYR IV PUSH ×6 (10:24→22:24)
--- NOTE | 2021-01-12 10:57 | PM.PNGS ---
Progress Note: A&P Assessment and Plan (1) Gangrene: Code(s): I96 - Gangrene, not elsewhere classified Status: Acute Assessment and Plan: will setup for amputation in am, cont med optimization Subjective Subjective Date/Time Seen: 01/12/21 10:57 still c/o severe pain at L second toe, reports breathing is much improved Review of Systems Review of Systems: All systems reviewed & are unremarkable except as noted in HPI and below Exam Const: General: cooperative, no acute distress and ill appearing Chest: Chest palpation & inspection: normal inspection of the chest Resp: Effort & Inspection: normal respiratory effort Auscultation: diminished lung sounds Cardio: Rate: regular rate Rhythm: regular rhythm GI: Inspection: normal to inspection GI Palp: Yes Soft to palpation and No Tenderness to palpation present (GI) Skin: Other: left second toe dry gangrene, decreased surrounding cellulitis Objective Data Vital Signs Vital Signs: Vital Signs - 24 hr 01/11/21 12:00 01/11/21 14:00 01/11/21 15:40 Temperature 36.4 C 36.8 C Pulse Rate 92 102 H 92 Respiratory Rate 18 18 Blood Pressure 167/75 H 171/89 H Pulse Oximetry 100 01/11/21 15:54 01/11/21 16:00 01/11/21 16:15 Temperature Pulse Rate 90 93 90 Respiratory Rate Blood Pressure 169/91 H 178/91 H 171/89 H Pulse Oximetry 98 01/11/21 16:30 01/11/21 16:45 01/11/21 17:00 Temperature Pulse Rate 94 95 Respiratory Rate Blood Pressure 161/82 H 155/92 H 161/82 H Pulse Oximetry 01/11/21 17:15 01/11/21 17:30 01/11/21 17:45 Temperature Pulse Rate 100 100 101 H Respiratory Rate Blood Pressure 164/83 H 149/86 H 167/88 H Pulse Oximetry 01/11/21 18:00 01/11/21 18:15 01/11/21 18:30 Temperature Pulse Rate 100 107 H 100 Respiratory Rate Blood Pressure 168/85 H 178/87 H 169/89 H Pulse Oximetry 01/11/21 18:45 01/11/21 19:00 01/11/21 19:28 Temperature Pulse Rate 101 H 96 96 Respiratory Rate Blood Pressure 184/95 H 163/84 H 162/85 H Pulse Oximetry 01/11/21 19:38 01/11/21 20:00 01/11/21 20:05 Temperature 36.6 C 35.9 C L Pulse Rate 95 107 H 109 H Respiratory Rate 18 18 Blood Pressure 177/83 H 151/81 H Pulse Oximetry 99 98 01/11/21 21:00 01/11/21 21:25 01/11/21 22:46 Temperature Pulse Rate 106 H 100 107 H Respiratory Rate 18 18 Blood Pressure Pulse Oximetry 01/11/21 23:07 01/11/21 23:29 01/11/21 23:54 Temperature 36.6 C Pulse Rate 113 H 109 H 109 H Respiratory Rate 20 20 Blood Pressure 172/82 H Pulse Oximetry 94 01/12/21 00:00 01/12/21 02:00 01/12/21 04:00 Temperature 36.5 C Pulse Rate 102 H 102 H 98 Respiratory Rate 20 Blood Pressure 169/77 H Pulse Oximetry 96 01/12/21 06:00 01/12/21 08:00 01/12/21 08:34 Temperature 35.8 C L Pulse Rate 95 89 92 Respiratory Rate 16 18 Blood Pressure 156/62 H Pulse Oximetry 96 94 01/12/21 09:51 Temperature Pulse Rate 96 Respiratory Rate Blood Pressure Pulse Oximetry Intake/Output Intake/Output: Intake & Output 01/09/21 01/10/21 01/11/21 01/12/21 23:59 23:59 23:59 23:59 Intake Total 650 600 Output Total 3000 225 Balance -2350 375 Meds/Results Medications: Active Medications Generic Name Dose Route Start Last Admin Trade Name Shahramq PRN Reason Stop Dose Admin Albuterol 1 puff 01/11/21 16:00 01/11/21 22:45 Albuterol Sulfate (*Sp) Aerosol 1 Puff INHALATION 1 puff QIDRT MARTHA Administration Aspirin 81 mg 01/12/21 09:00 01/12/21 08:52 Aspirin 81 Mg Enteric Tablet PO 81 mg DAILY MARTHA Administration Atorvastatin Calcium 80 mg 01/11/21 21:00 01/11/21 21:25 Atorvastatin 40 Mg Tablet PO 80 mg HS MARTHA Administration Carvedilol 25 mg 01/11/21 21:00 01/11/21 21:25 Carvedilol 25 Mg Tablet PO 25 mg HS MARTHA Administration Carvedilol 50 mg 01/12/21 09:00 03/02/21 08:53 Carvedilol 25 Mg Tablet PO 50 mg DWIGHT
[2021-01-12 11:44] LABS: Glucose Point of Care 228 (65-105)
[2021-01-12] MEDS: SEVELAMER CARBONATE 800 MG TABLET PO ×2 (12:18→16:47)
[2021-01-12] MEDS: LORazepam (*CRX) 0.5 MG TABLET PO ×2 (13:07→20:49)
[2021-01-12] MEDS: hydrALAZINE HCL 20 MG/ML VIAL 10 MG IV PUSH (13:11)
--- NOTE | 2021-01-12 15:28 | PM.IMPN ---
Progress Note: A&P Assessment and Plan (1) Acute respiratory failure: Qualifiers: Respiratory failure complication: unspecified whether with hypoxia or hypercapnia Qualified Code(s): J96.00 - Acute respiratory failure, unspecified whether with hypoxia or hypercapnia Code(s): J96.00 - Acute respiratory failure, unspecified whether with hypoxia or hypercapnia Status: Acute Assessment and Plan: Acute respiratory failure secondary to acute flash pulmonary edema. Patietn started on Bipap support but able to be weaned off and back on room air now. Contineu to monitor. (2) Flash pulmonary edema: Code(s): J81.0 - Acute pulmonary edema Status: Acute Assessment and Plan: Secondary to being fluid overloaded or related to the severe HTN. He has not missed HD. Noncompliance with diet? The patient has an extensive history of flash pulmonary edema. Renal artery stenosis? Nephrology has been consulted. Symptoms much better after HD. Continue to use HD to control fluid status. (3) Hypertensive urgency: Code(s): I16.0 - Hypertensive urgency Status: Acute Assessment and Plan: BP was 228/143 on admission. Unclear if this is a result of the respiratory failue and pulmonary edema or the cause of it. Patient's blood pressure was reviewed on 01/12 Blood pressure much better controlled. Will continue current medications. Continue home antihypertensives. PRN IV hydralazine w/ parameters is ordered. (4) Nausea and vomiting: Code(s): R11.2 - Nausea with vomiting, unspecified Status: Acute Assessment and Plan: Nausea with vomiting but appears to be more chronic. Could be worse related to the infection. Doubt DKA given normal AG now. Possible gastroparesis given the chronicity. Check GES. Add Protonix. Consider GI consult (5) Sepsis: Qualifiers: Acute respiratory failure type: unspecified Sepsis acute organ dysfunction status: with acute organ dysfunction Sepsis type: sepsis due to unspecified organism Severe sepsis acute organ dysfunction type: acute respiratory failure Severe sepsis shock status: unspecified Qualified Code(s): A41.9 - Sepsis, unspecified organism; R65.20 - Severe sepsis without septic shock; J96.00 - Acute respiratory failure, unspecified whether with hypoxia or hypercapnia Code(s): A41.9 - Sepsis, unspecified organism Status: Acute Assessment and Plan: Present on admission with leukocytosis, tachycardia, Source of sepsis appears to be left foot cellulitis. Continue IV antibiotics. (6) Cellulitis of foot: Code(s): L03.119 - Cellulitis of unspecified part of limb Status: Acute Assessment and Plan: Intially was a wound to the left 2nd toe treated with abx early part of December. Was doing well until he slipped and stubbing the left 2nd toe. Seen here in ED 01/08 and discharged home on clinidamycin. Fading erythema to the left dorsum associated with the necrotic toe. BCx NGTD from 01/08 and 01/11. Continue IV antibiotics. 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 General surgery has been consulted with plans for amputation. Arterial doppler 12/24/20 on the LLE showing significant arterial occlusive disease to the left lower limb with parvus et tardus arterial waveforms with delayed upstrokes at the left posterior tibial artery and no discernible arterial waveforms at the left dorsalis pedis artery. May be difficult to heal given his vascular disease. (8) Elevated troponin: Code(s): R77.8 - Other specified abnormalities of plasma proteins Status: Acute Assessment and Plan: Troponin elevated on admission and has climbed to 0.156. No complaints of chest pain. EKG showing poor R w
[2021-01-12 16:28] LABS: Glucose Point of Care 296 (65-105)
[2021-01-12 19:44] LABS: Glucose Point of Care 275 (65-105)
[2021-01-12] MEDS: INSULIN GLARGINE (*BKC) 100 UNITS/ML 10 UNITS SUB-Q (20:16)
[2021-01-12] MEDS: ATORVASTATIN 40 MG TABLET 80 MG PO (20:18)
[2021-01-12] MEDS: TICAGRELOR 90 MG TABLET PO (20:18)
[2021-01-12] MEDS: PANTOPRAZOLE SODIUM IV 40 MG VIAL IV PUSH (20:18)
[2021-01-12] MEDS: rOPINIRole HCL 0.25 MG TABLET PO (20:18)
[2021-01-12] MEDS: carvediloL 25 MG TABLET PO (20:19)
[2021-01-13] VITALS (30 sets, daily range): BP systolic 91–169; BP diastolic 48–88; PULSE 53–92; RESP 12–20; TEMP 36.2–37; O2SAT 95–100
--- NOTE | 2021-01-13 | ECHO_ITS ---
Patient Info Name: Ish Corley Age: 55 years : 1965 Gender: Male Ht: 66 in Wt: 131 lbs BSA: 1.66 m2 HR: 84 bpm BP: 150 / 65 mmHg Technical Quality: Good Exam Date: 01/13/2021 4:02 PM Exam Location: [facility] Pulmonary Exam Room: 200 Patient Status: Inpatient Admit Date: 01/11/2021 Staff Ordering Physician: Matteo Tom MD Senior Physician: Aishwarya Carmen RDCS Attending Provider: Matteo Tom MD Exam Type: CA echo doppler color flow Study Info Indications - ELEVATED TROPONINS ON HD MWF Complete two-dimensional, color flow and Doppler transthoracic echocardiogram is performed. Summary 1. Complete two-dimensional, color flow and Doppler transthoracic echocardiogram is performed. 2. Left ventricular systolic function is normal, estimated at 60-65%. 3. The left ventricular diastolic function is grade I diastolic dysfunction. 4. There is mild aortic valve calcification. 5. There is moderate mitral valve calcification. 6. There is mild mitral valve regurgitation. 7. There is mild tricuspid valve regurgitation. 8. No pulmonary hypertension, estimated pulmonary arterial systolic pressure is 45 mmHg. Left Ventricle Left ventricular chamber dimension is normal. Left ventricular systolic function is normal, estimated at 60-65%. There is no increased left ventricular wall thickness. Left ventricular septal wall motion is normal. The left ventricular diastolic function is grade I diastolic dysfunction. Right Ventricle Right ventricular chamber dimension is normal. Right ventricular systolic function is normal. Left Atria Left atrial chamber dimension is normal. Right Atria Right atrial chamber dimension is normal. Atrial Septum Intact interatrial septum visualized by color flow imaging. Aortic Valve The aortic valve is trileaflet. There is no aortic valve stenosis. There is no aortic valve regurgitation. There is mild aortic valve calcification. Pulmonic Valve The pulmonic valve is normal. There is no pulmonic valve stenosis. There is no pulmonic regurgitation. Mitral Valve The mitral valve has normal leaflets. There is no mitral valve stenosis. There is mild mitral valve regurgitation. There is moderate mitral valve calcification. Tricuspid Valve The tricuspid valve leaflets are normal. There is no significant tricuspid valve stenosis. There is mild tricuspid valve regurgitation. No pulmonary hypertension, estimated pulmonary arterial systolic pressure is 45 mmHg. Pericardium/Pleural The pericardium appears normal. There is no pericardial effusion. Inferior Vena Cava Normal inferior vena cava with >50% collapse upon inspiration consistent with normal right atrial pressure, 10 mmHg. Aorta The aortic root size at the sinus of Valsalva is normal. The prox ascending aorta size is normal. Left Ventricular Outflow Tract Name Value Normal LVOT 2D LVOT Diameter 2.0 cm LVOT Doppler LVOT Peak Gradient 4 mmHg LVOT Mean Gradient 2 mmHg LVOT VTI 18 cm
[2021-01-13] MEDS: HYDROmorphone HCL INJ (*CRX) 1 MG/ML SYR IV PUSH ×6 (00:24→20:24)
[2021-01-13] MEDS: IMIPENEM/CILASTATIN SODIUM 200 MG in DEXTROSE 5% 100 ML 300 MG IVPB ×3 (02:01→13:08)
[2021-01-13 04:52] LABS: Hemoglobin 11.7 g/dL (14.0-18.0); Mean Corpuscular HGB Conc 31.6 g/dl (32-36); Mean Corpuscular Hemoglobin 29.5 pg (26-34); Mean Corpuscular Volume 93.4 fl (80-100); Platelet Count Result 511 k/mm3 (150-375); Red Blood Count 3.96 M/mm3 (4.6-6.20); Red Cell Distribution Width 17.2 % (11.5-14.5); White Blood Count 12.4 K/mm3 (4.5-10.0)
[2021-01-13 05:12] LABS: Albumin Level 3.7 g/dL (3.5-5.1); Anion Gap 14 mmol/L (8-16); Blood Urea Nitrogen 54 mg/dL (9-20); Calcium 9.2 mg/dL (8.4-10.2); Carbon Dioxide 30 mmol/L (22-30); Chloride 91 mmol/L (98-107); Estimated CRCL calculation 8 ml/min; Estimated Glomerular Filt Rate 7; Glucose 276 mg/dL (75-110); Magnesium 2.4 mg/dL (1.6-2.3); Phosphorus 8.9 mg/dL (2.5-4.5); Potassium 4.6 mmol/L (3.4-5.0); Sodium 135 mmol/L (137-145)
[2021-01-13] MEDS: INSULIN ASPART (*BKC) 100 UNITS/ML SUB-Q ×3 (06:17→13:05)
--- NOTE | 2021-01-13 06:31 | PC.NURSE ---
Report given to preop. No further questions. SBAR handed off to RN. Preop requested that blood sugar be treated per sliding scale. Sliding scale administered.
[2021-01-13] MEDS: SODIUM CHLORIDE 0.9% IV 500 ML 30 ML IV CONT (06:35)
--- NOTE | 2021-01-13 06:41 | WPDANESEPPF ---
Anes - Initial Pre Proc Eval Procedure: Operation Date: 01/13/21 07:30 Proposed Procedures p Amputation Of Left Second Toe - Isabell Hercules MD Date/Time: 01/13/21 06:41 Surgeon: Al Tom MD Pre Op Diagnosis: Acute respiratory failure with hypoxia, Patient Data Age: 55 Gender: M Height: 1.68 m Weight: 59.7 kg Last Vital Signs Temp 36.5 C 01/13/21 03:55 Pulse 85 01/13/21 06:00 Resp 20 01/13/21 03:55 BP 156/76 H 01/13/21 03:55 Pulse Ox 99 01/13/21 03:55 Allergies Allergy/AdvReac Type Severity Reaction Status Date / Time scopolamine Allergy Severe Unresponsiv Verified 01/08/21 21:53 e Home Medications Medication Instructions Recorded Confirmed Type carvedilol 50 mg PO DAILY 02/05/20 01/11/21 History furosemide 80 mg PO BID 02/05/20 01/11/21 History aspirin 81 mg PO DAILY 07/02/20 01/11/21 History Dang-Nilsa 1 tablet PO DAILY 07/23/20 01/11/21 History Brilinta 90 mg PO Q12HR 30 Days #60 tablet 09/15/20 01/11/21 Rx insulin lispro 100 unit/mL See Rx Instructions .ROUTE 09/16/20 01/11/21 Rx subcutaneous pen .COMPLEX #45 ml sertraline 100 mg tablet 100 mg PO DAILY #90 tablet 09/22/20 01/11/21 Rx insulin glargine 100 unit/mL (3 See Rx Instructions .ROUTE 09/29/20 01/11/21 Rx mL) subcutaneous pen .COMPLEX #30 ml blood-glucose sensor #3 each 10/20/20 01/11/21 Rx blood-glucose transmitter #1 each 10/20/20 01/11/21 Rx blood-glucose meter,continuous #3 ea 10/21/20 01/11/21 Rx alcohol swabs See Rx Instructions .ROUTE 12/22/20 01/11/21 Rx .COMPLEX #100 ea temazepam 15 mg capsule 15 mg PO ONCE PRN #30 cap 12/31/20 01/11/21 Rx albuterol sulfate 1 puff INHALATION QID 01/11/21 01/11/21 History atorvastatin 80 mg PO HS 01/11/21 01/11/21 History carvedilol 25 mg PO HS 01/11/21 01/11/21 History desoximetasone 1 applic TOPICAL BID 01/11/21 01/11/21 History diclofenac sodium 2 g TOPICAL TID 01/11/21 01/11/21 History lorazepam 0.5 mg PO BID PRN 01/11/21 01/11/21 History ropinirole 0.25 mg PO DIRECTED 01/11/21 01/11/21 History sevelamer carbonate 800 mg PO TID 01/11/21 01/11/21 History Laboratory Tests 01/12/21 01/12/21 01/12/21 11:32 16:01 19:31 WBC RBC Hgb Hct MCV MCH MCHC RDW Plt Count MPV Sodium Potassium Chloride Carbon Dioxide Anion Gap BUN Creatinine Estim Creat Clear Calc Estimated GFR Glucose POC Capillary Glucose 228 mg/dl H mg/dl 296 mg/dl H mg/dl 275 mg/dl H mg/dl (65-105) (65-105) (65-105) Calcium Phosphorus Magnesium Troponin I Albumin 01/13/21 01/13/21 04:13 04:13 WBC 12.4 K/mm3 H K/mm3 (4.5-10.0) RBC 3.96 M/mm3 L M/mm3 (4.6-6.20) Hgb 11.7 g/dL L g/dL (14.0-18.0) Hct 37.0 % L % (42.0-52.0) MCV 93.4 fl fl (80-100) MCH 29.5 pg pg (26-34) MCHC 31.6 g/dl L g/dl (32-36) RDW 17.2 % H % (11.5-14.5) Plt Count 511 k/mm3 H k/mm3 (150-375) MPV 10.0 fl fl (7.4-10.4) Sodium 135 mmol/L L mmol/L (137-145) Potassium 4.6 mmol/L mmol/L (3.4-5.0) Chloride 91 mmol/L L mmol/L (98-107) Carbon Dioxide 30 mmol/L mmol/L (22-30) Anion Gap 14 mmol/L mmol/L (8-16) BUN 54 mg/dL H D mg/dL (9-20) Creatinine 8.30 mg/dL H mg/dL (0.7-1.3) Estim Creat Clear Calc 8 ml/min ml/min Estimated GFR 7 L (59 - ) Glucose 276 mg/dL H mg/dL (75-110) POC Capillary Glucose Calcium 9.2 mg/dL mg/dL (8.4-10.2) Phosphorus 8.9 mg/dL H mg/dL (2.5-4.5) Magnesium 2.4 mg/dL H mg/dL (1.6-2.3) Troponin I 0.540 ng/mL H* ng/mL (0.000-0.034) Albumin 3.7 g/dL g/dL (3.5-5.1)
--- NOTE | 2021-01-13 07:26 | WPDHPUPDATE1 ---
History and Physical Update Update Date/Time: 01/13/21 07:26 History and Physical has been reviewed, including an updated exam of the patient. There are NO changes in the patient's condition. Risks, benefits, and alternatives have been discussed and questions answered. Patient agrees to proceed with procedure.
--- NOTE | 2021-01-13 08:16 | PM.PROC ---
Procedure Note - Detailed Date of procedure: 01/13/21 Pre-op diagnosis: Acute respiratory failure with hypoxia, Gangrene and infection of left 2nd toe Post-op diagnosis: same Procedure performed: left 2nd toe guillotine amputation, washout Description of procedure: The patient was taken to the operating room placed in the supine position. After adequate induction of general anesthesia, the patient was prepped and draped in the normal sterile fashion. A time-out was then done to verify the patient, as well as the procedure being performed. I began by using the scalpel to make a incision in the skin around the area of the gangrene. This was done with a fishmouth fashion to allow closure. Upon getting into the subcutaneous tissue, it was noted that the tissue was necrotic and infected. I was able to then use the rongeur to disarticulate the metatarsal from the intermediate cuneiform. The specimen was then sent to pathology for further review. I then further debrided some of this necrotic infected tissue. On the dorsal aspect there was noted to be a pocket of purulence. This area was opened to allow drainage. Given the amount of infection in the area I decided to leave the wound open. We washed out the wound with Betadine and normal saline. I then packed the wound open with Betadine soaked gauze. Sterile dressing was then placed. The patient tolerated the procedure well and was extubated the operating room postoperative. He will be sent to the recovery room in stable condition. Anesthesia: KATHERINE Surgeon: Isabell Hercules MD Estimated blood loss (mL): 10 Drains: No Packing: Yes Pathology: yes Complications: No immediate complications Condition: stable Disposition: PACU Findings: Necrotic gangrenous infected 2nd left toe
[2021-01-13 08:49] LABS: Glucose Point of Care 233 (65-105)
--- NOTE | 2021-01-13 09:16 | PM.IMPN ---
Progress Note: A&P Assessment and Plan (1) Acute respiratory failure: Qualifiers: Respiratory failure complication: unspecified whether with hypoxia or hypercapnia Qualified Code(s): J96.00 - Acute respiratory failure, unspecified whether with hypoxia or hypercapnia Code(s): J96.00 - Acute respiratory failure, unspecified whether with hypoxia or hypercapnia Status: Acute Assessment and Plan: Acute respiratory failure secondary to acute flash pulmonary edema. Patietn started on Bipap support but able to be weaned off and back on room air now. Contineu to monitor. (2) Flash pulmonary edema: Code(s): J81.0 - Acute pulmonary edema Status: Acute Assessment and Plan: Secondary to being fluid overloaded or related to the severe HTN. He has not missed HD. Noncompliance with diet? The patient has an extensive history of flash pulmonary edema. No renal artery stenosis. Nephrology has been consulted. Symptoms much better after HD. Continue to use HD to control fluid status. (3) Hypertensive urgency: Code(s): I16.0 - Hypertensive urgency Status: Acute Assessment and Plan: BP was 228/143 on admission. Unclear if this is a result of the respiratory failue and pulmonary edema or the cause of it. Patient's blood pressure was reviewed on / Blood pressure much better controlled. Will continue current medications. Continue home antihypertensives. PRN IV hydralazine w/ parameters is ordered. (4) Nausea and vomiting: Code(s): R11.2 - Nausea with vomiting, unspecified Status: Acute Assessment and Plan: Nausea with vomiting that is acute on chronic. Acute process could be related to the pain and/or narcotics. Could also be worse related to the infection. Chronic n/v possibly gastroparesis given the chronicity. Doubt DKA given normal AG now. GES pending. Continue Protonix. (5) Sepsis: Qualifiers: Acute respiratory failure type: unspecified Sepsis acute organ dysfunction status: with acute organ dysfunction Sepsis type: sepsis due to unspecified organism Severe sepsis acute organ dysfunction type: acute respiratory failure Severe sepsis shock status: unspecified Qualified Code(s): A41.9 - Sepsis, unspecified organism; R65.20 - Severe sepsis without septic shock; J96.00 - Acute respiratory failure, unspecified whether with hypoxia or hypercapnia Code(s): A41.9 - Sepsis, unspecified organism Status: Acute Assessment and Plan: Present on admission with leukocytosis, tachycardia. Source of sepsis appears to be left foot cellulitis. Continue IV antibiotics. (6) Cellulitis of foot: Code(s): L03.119 - Cellulitis of unspecified part of limb Status: Acute Assessment and Plan: Initially was a wound to the left 2nd toe treated with abx early part of December. Was doing well until he slipped and stubbing the left 2nd toe. Seen here in ED 01/08 and discharged home on clinidamycin. Fading erythema to the left dorsum associated with the necrotic toe. BCx NGTD from 01/08 and 01/11. Continue IV antibiotics. 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 Arterial doppler 12/24/20 on the LLE showing significant arterial occlusive disease to the left lower limb with parvus et tardus arterial waveforms with delayed upstrokes at the left posterior tibial artery and no discernible arterial waveforms at the left dorsalis pedis artery. General surgery was consulted and patietn underwent amputation earlier today. (8) Elevated troponin: Code(s): R77.8 - Other specified abnormalities of plasma proteins Status: Acute Assessment and Plan: Troponin elevated on admission and has climbed to 0.156. No complaints of chyna
--- NOTE | 2021-01-13 09:25 | PC.NURSE ---
Report received from ADILENE Rollins in PACU. Pt to ultrasound from PACU and then will return to room 200
--- NOTE | 2021-01-13 10:04 | PC.NURSE ---
Pt returned to room via bed from PACU and US
[2021-01-13] MEDS: TICAGRELOR 90 MG TABLET PO ×2 (10:14→20:23)
[2021-01-13] MEDS: NICOTINE (*PBKC) 21 MG PATCH 1 PATCH TRANSDERM (10:14)
[2021-01-13] MEDS: SEVELAMER CARBONATE 800 MG TABLET PO ×3 (10:14→16:37)
[2021-01-13] MEDS: FUROSEMIDE 80 MG TABLET PO ×2 (10:14→16:37)
[2021-01-13] MEDS: PANTOPRAZOLE SODIUM IV 40 MG VIAL IV PUSH ×2 (10:15→20:22)
[2021-01-13] MEDS: SERTRALINE HCL 50 MG TABLET 100 MG PO (10:15)
[2021-01-13] MEDS: ASPIRIN 81 MG ENTERIC TABLET PO (10:15)
[2021-01-13] MEDS: carvediloL 25 MG TABLET 50 MG PO (10:15)
[2021-01-13] MEDS: VITAMIN B CMPLX/VIT C/FOLIC AC 1 CAPSULE 1 CAP PO (10:16)
[2021-01-13 10:19] LABS: Glucose Point of Care 247 (65-105)
[2021-01-13] MEDS: INSULIN GLARGINE (*BKC) 100 UNITS/ML 12 UNITS SUB-Q ×2 (10:22→20:27)
[2021-01-13] MEDS: ONDANSETRON INJ 4 MG/2 ML VIAL IV PUSH (10:23)
[2021-01-13] MEDS: LORazepam (*CRX) 0.5 MG TABLET PO ×2 (11:06→20:23)
[2021-01-13 12:02] LABS: Glucose Point of Care 228 (65-105)
[2021-01-13 15:09] LABS: Hemoglobin A1C 8.7 % (<5.7)
[2021-01-13 15:21] LABS: Troponin I 0.425 ng/mL (0.000-0.034)
--- NOTE | 2021-01-13 15:54 | PC.NURSE ---
Dr. Tom notified of blood glucose of 427. New order to give 10 units of Novolog when tray arrives
[2021-01-13 16:05] LABS: Glucose Point of Care 427 (65-105)
[2021-01-13] MEDS: INSULIN ASPART (*BKC) 100 UNITS/ML 10 UNITS SUB-Q (16:39)
--- NOTE | 2021-01-13 18:16 | PM.PNNEP ---
Progress Note: A&P Assessment and Plan (1) ESRD (end stage renal disease) on dialysis: Code(s): N18.6 - End stage renal disease; Z99.2 - Dependence on renal dialysis Status: Chronic Assessment and Plan: Ish has end-stage renal disease. He had dialysis yesterday and is due tomorrow. (2) Acute respiratory failure: Qualifiers: Respiratory failure complication: unspecified whether with hypoxia or hypercapnia Qualified Code(s): J96.00 - Acute respiratory failure, unspecified whether with hypoxia or hypercapnia Code(s): J96.00 - Acute respiratory failure, unspecified whether with hypoxia or hypercapnia Status: Acute Assessment and Plan: He had pulmonary edema, probably more from his blood pressure than from his weight gains. . This is improved now after fluid removal in dialysis. Breathing comfortably on room air (3) Cellulitis of foot: Code(s): L03.119 - Cellulitis of unspecified part of limb Status: Acute Assessment and Plan: he is getting antibiotics and is undergoing evaluation of this foot. status post toe amputation. Afebrile. White cell count is better as well. (4) Cardiomyopathy: Code(s): I42.9 - Cardiomyopathy, unspecified Status: Chronic Assessment and Plan: EF only 25-30%. He seems to be compensated (5) Hypertension: Qualifiers: Hypertension type: unspecified Qualified Code(s): I10 - Essential (primary) hypertension Code(s): I10 - Essential (primary) hypertension Status: Chronic Assessment and Plan: His blood pressure is better (6) Anemia: Code(s): D64.9 - Anemia, unspecified Status: Acute Assessment and Plan: hemoglobin is 13. Will not need EPO today. (7) Erythropoietin deficiency anemia: Code(s): D63.1 - Anemia in chronic kidney disease Status: Acute (8) Tobacco abuse: Code(s): Z72.0 - Tobacco use Status: Acute (9) IDDM (insulin dependent diabetes mellitus): Status: Chronic Subjective Date/time seen: 01/13/21 18:16 Interval history: Ish is feeling good this evening. is in the room. He had the toe amputated this morning. Pain is much better. Exam Narrative: Exam Narrative: WDWN in NAD skin no rash Or subcu nodules head ncat lungs clear bilaterally cor reg no rub abd BS+ nontender and soft ext no edema. Right [id number] amputation. Left foot has a necrotic 2nd toe and erythema proximal to that. Objective Data Vital Signs Vital Signs: Vital Signs - 24 hr 01/12/21 19:08 01/12/21 20:00 01/12/21 20:19 Temperature 36.5 C Pulse Rate 88 89 88 Respiratory Rate 16 Blood Pressure 129/99 H Pulse Oximetry 100 01/12/21 22:00 01/12/21 23:43 01/13/21 00:00 Temperature 36.6 C Pulse Rate 76 76 78 Respiratory Rate 20 Blood Pressure 137/87 Pulse Oximetry 97 01/13/21 02:00 01/13/21 03:23 01/13/21 03:55 Temperature 36.5 C Pulse Rate 81 92 85 Respiratory Rate 20 Blood Pressure 156/76 H Pulse Oximetry 99 01/13/21 04:00 01/13/21 06:00 01/13/21 06:28 Temperature 37.0 C Pulse Rate 53 L 85 88 Respiratory Rate 20 Blood Pressure 155/72 H Pulse Oximetry 98 01/13/21 08:14 01/13/21 08:25 01/13/21 08:40 Temperature 36.2 C L Pulse Rate 67 70 70 Respiratory Rate 12 12 12 Blood Pressure 91/48 L 101/49 L 108/53 L Pulse Oximetry 100 100 100 01/13/21 08:55 01/13/21 09:10 01/13/21 09:25 Temperature Pulse Rate 72 77 71 Respiratory Rate 12 14 12 Blood Pressure 115/58 L 113/54 L 116/50 L Pulse Oximetry 100 100 97 01/13/21 10:15 01/13/21 10:30 01/13/21 10:45 Temperature 36.6 C 36.6 C 36.8 C Pulse Rate 86 82 86 Respiratory Rate 18 16 16 Blood Pressure 150/76 H 151/71 H 155/68 H Pulse Oximetry 96 96 97 01/13/21 11:00 01/13/21 11:30 01/13/21 12:00 Temperature 36.8 C 36.8 C 36.9 C Pulse Rate 80 80 86 Respiratory
[2021-01-13 20:18] LABS: Glucose Point of Care 260 (65-105)
[2021-01-13] MEDS: ATORVASTATIN 40 MG TABLET 80 MG PO (20:22)
[2021-01-13] MEDS: rOPINIRole HCL 0.25 MG TABLET PO (20:22)
[2021-01-13] MEDS: carvediloL 25 MG TABLET PO (20:23)
[2021-01-13] MEDS: IMIPENEM/CILASTATIN SODIUM 200 MG in DEXTROSE 5% 100 ML 100 MG IVPB (20:28)
[2021-01-13] MEDS: TEMAZEPAM (*CRX) 15 MG CAPSULE PO (23:35)
[2021-01-14] VITALS (28 sets, daily range): BP systolic 93–149; BP diastolic 48–89; PULSE 71–94; RESP 14–22; TEMP 36.1–37; O2SAT 96–99
[2021-01-14] MEDS: HYDROmorphone HCL INJ (*CRX) 1 MG/ML SYR IV PUSH ×8 (00:08→23:17)
[2021-01-14] MEDS: IMIPENEM/CILASTATIN SODIUM 200 MG in DEXTROSE 5% 100 ML 300 MG IVPB ×3 (02:47→13:50)
[2021-01-14 05:18] LABS: Basophils Percent Auto 0.3 % (0.2-1.2); Eosinophils Absolute Auto 0.1 K/mm3 (0-0.3); Eosinophils Percent Auto 0.3 % (0-4.4); Hematocrit 31.4 % (42.0-52.0); Hemoglobin 9.9 g/dL (14.0-18.0); Immature Granulocyte Absolute 0.11 K/mm3 (0.00-0.031); Immature Granulocyte Percent A 0.7 % (0-0.5); Lymphocytes Absolute Auto 1.54 K/mm3 (0.9-3.2); Mean Corpuscular HGB Conc 31.5 g/dl (32-36); Mean Corpuscular Hemoglobin 28.6 pg (26-34); Mean Corpuscular Volume 90.8 fl (80-100); Mean Platelet Volume 10.2 fl (7.4-10.4); Monocytes Percent Auto 6.6 % (2.6-8.5); Neutrophils Absolute Auto 12.6 K/mm3 (1.3-6.7); Neutrophils Percent Auto 82.1 % (45.5-73.1); Platelet Count Result 526 k/mm3 (150-375); Red Blood Count 3.46 M/mm3 (4.6-6.20); Red Cell Distribution Width 16.9 % (11.5-14.5); White Blood Count 15.4 K/mm3 (4.5-10.0)
[2021-01-14 05:50] LABS: Albumin Level 3.5 g/dL (3.5-5.1); Anion Gap 16 mmol/L (8-16); Blood Urea Nitrogen 66 mg/dL (9-20); Calcium 8.6 mg/dL (8.4-10.2); Carbon Dioxide 27 mmol/L (22-30); Chloride 88 mmol/L (98-107); Estimated CRCL calculation 7 ml/min; Estimated Glomerular Filt Rate 5; Glucose 407 mg/dL (75-110); Phosphorus 9.4 mg/dL (2.5-4.5); Potassium 4.8 mmol/L (3.4-5.0); Sodium 131 mmol/L (137-145)
[2021-01-14] MEDS: INSULIN ASPART (*BKC) 100 UNITS/ML SUB-Q (06:42)
[2021-01-14] MEDS: PANTOPRAZOLE SODIUM IV 40 MG VIAL IV PUSH ×2 (09:00→20:52)
[2021-01-14] MEDS: NICOTINE (*PBKC) 21 MG PATCH 1 PATCH TRANSDERM (09:00)
[2021-01-14 09:14] LABS: Glucose Point of Care 224 (65-105)
--- NOTE | 2021-01-14 10:01 | WPDANESPN ---
Anes - Prog Note Post-Op Date/Time: 01/14/21 10:01 Cardiovascular status: normal Respiratory status: normal Airway patency: baseline Mental status: baseline Post-Op hydration status: normal Vital Signs: Last Vital Signs Temp 97.6 F 01/14/21 04:00 Pulse 71 01/14/21 06:00 Resp 18 01/14/21 04:00 BP 141/89 H 01/14/21 04:00 Pulse Ox 96 01/14/21 04:00 Pain Score (VAS): 11/22 I/O: Intake & Output 01/13/21 01/14/21 01/14/21 23:59 07:59 15:59 Intake Total 880 500 Balance 880 500 Laboratory Tests 01/14/21 04:26 01/14/21 04:26 01/13/21 01/13/21 01/13/21 10:15 11:59 14:31 WBC RBC Hgb Hct MCV MCH MCHC RDW Plt Count MPV Immature Gran % (Auto) Neut % (Auto) Lymph % (Auto) [place] % (Auto) Eos % (Auto) Baso % (Auto) Lymph # (Auto) [place] # (Auto) Eos # (Auto) Baso # (Auto) Abs Immat Gran (auto) Absolute Neuts (auto) Absolute Nucleated RBC Nucleated RBC % Sodium Potassium Chloride Carbon Dioxide Anion Gap BUN Creatinine Estim Creat Clear Calc Estimated GFR Glucose POC Capillary Glucose 247 H 228 H Hemoglobin A1c 8.7 H Calcium Phosphorus Troponin I Albumin 01/13/21 01/13/21 01/13/21 14:31 15:46 20:05 WBC RBC Hgb Hct MCV MCH MCHC RDW Plt Count MPV Immature Gran % (Auto) Neut % (Auto) Lymph % (Auto) [place] % (Auto) Eos % (Auto) Baso % (Auto) Lymph # (Auto) [place] # (Auto) Eos # (Auto) Baso # (Auto) Abs Immat Gran (auto) Absolute Neuts (auto) Absolute Nucleated RBC Nucleated RBC % Sodium Potassium Chloride Carbon Dioxide Anion Gap BUN Creatinine Estim Creat Clear Calc Estimated GFR Glucose POC Capillary Glucose 427 H 260 H Hemoglobin A1c Calcium Phosphorus Troponin I 0.425 H* Albumin 01/14/21 01/14/21 01/14/21 04:26 04:26 08:57 WBC 15.4 H RBC 3.46 L Hgb 9.9 L Hct 31.4 L MCV 90.8 MCH 28.6 MCHC 31.5 L RDW 16.9 H Plt Count 526 H MPV 10.2 Immature Gran % (Auto) 0.7 H Neut % (Auto) 82.1 H Lymph % (Auto) 10.0 L [place] % (Auto) 6.6 Eos % (Auto) 0.3 Baso % (Auto) 0.3 Lymph # (Auto) 1.54 [place] # (Auto) 1.0 H Eos # (Auto) 0.1 Baso # (Auto) 0.0 Abs Immat Gran (auto) 0.11 H Absolute Neuts (auto) 12.6 H Absolute Nucleated RBC 0.0 Nucleated RBC % 0.0 Sodium 131 L Potassium 4.8 Chloride 88 L Carbon Dioxide 27 Anion Gap 16 BUN 66 H D Creatinine 10.10 H Estim Creat Clear Calc 7 Estimated GFR 5 L Glucose 407 H POC Capillary Glucose 224 H Hemoglobin A1c Calcium 8.6 Phosphorus 9.4 H Troponin I Albumin 3.5 Post-procedural complaints: none Patient Feedback: Patient satisfied with anesthetic care.
[2021-01-14] MEDS: DEXTROSE 50% 25 GM/50 ML SYRINGE IV PUSH (11:52)
--- NOTE | 2021-01-14 12:56 | PM.IMPN ---
Progress Note: A&P Assessment and Plan (1) Acute respiratory failure: Qualifiers: Respiratory failure complication: unspecified whether with hypoxia or hypercapnia Qualified Code(s): J96.00 - Acute respiratory failure, unspecified whether with hypoxia or hypercapnia Code(s): J96.00 - Acute respiratory failure, unspecified whether with hypoxia or hypercapnia Status: Acute Assessment and Plan: Acute respiratory failure secondary to acute flash pulmonary edema. Patient started on Bipap support but able to be weaned off and back on room air now. Contineu to monitor. (2) Flash pulmonary edema: Code(s): J81.0 - Acute pulmonary edema Status: Acute Assessment and Plan: Secondary to being fluid overloaded or related to the severe HTN. He has not missed HD. The patient has an extensive history of flash pulmonary edema. Doppler negative for renal artery stenosis. I spoke with patient who admits to being noncompliant with his diet. Nephrology has been consulted. Symptoms much better after HD. Continue to use HD to control fluid status. Educated about the benefits of minimizing fluid intake especially when he off HD for 2 days (3) Hypertensive urgency: Code(s): I16.0 - Hypertensive urgency Status: Acute Assessment and Plan: BP was 228/143 on admission. Unclear if this is a result of the respiratory failure and pulmonary edema or the cause of it. Patient's blood pressure was reviewed on 01/14. Blood pressure much better controlled. Will continue current medications. Continue home antihypertensives. PRN IV hydralazine w/ parameters is ordered. (4) Nausea and vomiting: Code(s): R11.2 - Nausea with vomiting, unspecified Status: Acute Assessment and Plan: Nausea with vomiting that is acute on chronic. Acute process could be related to the pain and/or narcotics. Could also be worse related to the infection. Chronic n/v possibly gastroparesis given the chronicity. GES pending. Continue Protonix. GES showing delayed gastric emptying with gastric retention of meal of 105%, 104%, and 94% at the 1-hour, 2-hour, and 4-hour time points, respectively. Add Reglan. (5) Sepsis: Qualifiers: Acute respiratory failure type: unspecified Sepsis acute organ dysfunction status: with acute organ dysfunction Sepsis type: sepsis due to unspecified organism Severe sepsis acute organ dysfunction type: acute respiratory failure Severe sepsis shock status: unspecified Qualified Code(s): A41.9 - Sepsis, unspecified organism; R65.20 - Severe sepsis without septic shock; J96.00 - Acute respiratory failure, unspecified whether with hypoxia or hypercapnia Code(s): A41.9 - Sepsis, unspecified organism Status: Acute Assessment and Plan: Present on admission with leukocytosis, tachycardia. Source of sepsis appears to be left foot cellulitis and necrotic toe. Continue IV antibiotics. (6) Cellulitis of foot: Code(s): L03.119 - Cellulitis of unspecified part of limb Status: Acute Assessment and Plan: Initially was a wound to the left 2nd toe treated with abx early part of December. Was doing well until he slipped and stubbing the left 2nd toe. Seen here in ED 01/08 and discharged home on clinidamycin. Fading erythema to the left dorsum consistent with cellulitis associated with the necrotic toe. BCx NGTD from 01/08 and 01/11. Continue IV antibiotics. 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 Arterial doppler 12/24/20 on the LLE showing significant arterial occlusive disease to the left lower limb with parvus et tardus arterial waveforms with delayed upstrokes at the left posterior tibial artery and no discernible arterial waveforms at the left do
[2021-01-14 13:05] LABS: Glucose Point of Care 55 (65-105)
[2021-01-14 13:05] LABS: Glucose Point of Care 107 (65-105)
--- NOTE | 2021-01-14 13:29 | PM.PNGS ---
Progress Note: A&P Assessment and Plan (1) Gangrene: Code(s): I96 - Gangrene, not elsewhere classified Status: Acute Assessment and Plan: wound looks good, cont abx and local wound care Subjective Subjective Date/Time Seen: 01/14/21 13:29 feels good, no acute issues Review of Systems Review of Systems: All systems reviewed & are unremarkable except as noted in HPI and below Exam Resp: Effort & Inspection: normal respiratory effort Auscultation: diminished lung sounds Cardio: Rate: regular rate Rhythm: regular rhythm Skin: Other: LLE - drsg C/D/I Objective Data Vital Signs Vital Signs: Vital Signs - 24 hr 01/13/21 14:00 01/13/21 15:00 01/13/21 16:00 Temperature 36.6 C 36.6 C 36.6 C Pulse Rate 82 80 84 Respiratory Rate 16 16 16 Blood Pressure 150/65 H 152/61 H 165/88 H Pulse Oximetry 98 98 95 01/13/21 18:00 01/13/21 18:51 01/13/21 20:00 Temperature 36.9 C Pulse Rate 92 90 91 Respiratory Rate 16 Blood Pressure 169/83 H Pulse Oximetry 99 01/13/21 20:20 01/13/21 20:23 01/13/21 20:35 Temperature Pulse Rate 91 Respiratory Rate Blood Pressure Pulse Oximetry 99 99 01/13/21 23:47 01/14/21 00:00 01/14/21 02:00 Temperature 36.4 C Pulse Rate 85 84 72 Respiratory Rate 18 Blood Pressure 155/67 H Pulse Oximetry 100 01/14/21 04:00 01/14/21 06:00 01/14/21 08:00 Temperature 36.4 C 36.7 C Pulse Rate 77 71 94 Respiratory Rate 18 18 Blood Pressure 141/89 H 148/75 H Pulse Oximetry 96 98 01/14/21 10:00 01/14/21 10:41 01/14/21 12:00 Temperature 36.6 C Pulse Rate 85 84 Respiratory Rate 16 Blood Pressure 141/67 H Pulse Oximetry 98 98 Intake/Output Intake/Output: Intake & Output 01/11/21 01/12/21 01/13/21 01/14/21 23:59 23:59 23:59 23:59 Intake Total 650 1320 2085 600 Output Total 3000 525 Balance -2350 795 2085 600 Meds/Results Medications: Active Medications Generic Name Dose Route Start Last Admin Trade Name Freq PRN Reason Stop Dose Admin Albuterol 1 puff 01/11/21 16:00 01/13/21 21:15 Albuterol Sulfate (*Sp) Aerosol 1 Puff INHALATION Not Given QIDRT MARTHA Aspirin 81 mg 01/12/21 09:00 01/13/21 10:15 Aspirin 81 Mg Enteric Tablet PO 81 mg DAILY MARTHA Administration Atorvastatin Calcium 80 mg 01/11/21 21:00 01/13/21 20:22 Atorvastatin 40 Mg Tablet PO 80 mg HS MARTHA Administration Carvedilol 25 mg 01/11/21 21:00 01/13/21 20:23 Carvedilol 25 Mg Tablet PO 25 mg HS MARTHA Administration Carvedilol 50 mg 01/12/21 09:00 01/13/21 10:15 Carvedilol 25 Mg Tablet PO 50 mg DAILY MARTHA Administration Dextrose 12.5 gm 01/11/21 02:43 01/14/21 11:52 Dextrose 50% 25 Gm/50 Ml Syringe IV PUSH 12.5 gm PRN PRN Administration Hypoglycemia Protocol Epoetin Johnnie-epbx 10,000 units 01/15/21 09:00 Epoetin Johnnie-Epbx 10,000 Units/Ml Vial IV PUSH [id number] MARTHA Furosemide 80 mg 01/11/21 17:00 01/13/21 16:37 Furosemide 80 Mg Tablet PO 80 mg BID MARTHA Administration Glucagon 1 mg 01/11/21 02:43 Glucagon For Inj 1 Mg Vial IM PRN PRN Hypoglycemia Protocol Glucose 15 gm 01/11/21 02:43 Glucose Oral Gel 15 Gm Of Glucse In 37.5 Gm Tube PO PRN PRN Hypoglycemia Protocol Heparin Sodium (Porcine) 5,000 units 01/12/21 21:00 01/14/21 11:25 Heparin Sodium 5,000 Units/Ml Vial SUB-Q Not Given Q12HR MARTHA Hydromorphone HCl 1 mg 01/12/21 10:10 01/14/21 11:52 Hydromorphone Hcl Inj (*Crx) 1 Mg/Ml Syr IV PUSH 1 mg Q2H PRN Administration Pain Rated 7-10 Dextrose 1,000 mls @ 100 mls/hr 01/11/21 02:43 Dextrose 5% 1,000 Ml IVPB PRN PRN Hypoglycemia Protocol Imipenem/Cilastatin Sodium 200 100 mls @ 300 mls/hr 01/11/21 08:00 01/14/21 09:18 mg/ Dextrose IVPB Infused Q6H MARTHA Infusion Vancomycin HCl 1,000 mg in 250 mls @ 250 mls/hr 01/11/21 10:03 Vancomycin 1,000 Mg/D5w
[2021-01-14] MEDS: LORazepam (*CRX) 0.5 MG TABLET PO (13:43)
[2021-01-14] MEDS: ASPIRIN 81 MG ENTERIC TABLET PO (13:44)
[2021-01-14] MEDS: carvediloL 25 MG TABLET 50 MG PO (13:44)
[2021-01-14] MEDS: FUROSEMIDE 80 MG TABLET PO ×2 (13:44→20:49)
[2021-01-14] MEDS: TICAGRELOR 90 MG TABLET PO ×2 (13:45→20:49)
[2021-01-14] MEDS: SERTRALINE HCL 50 MG TABLET 100 MG PO (13:45)
[2021-01-14] MEDS: VITAMIN B CMPLX/VIT C/FOLIC AC 1 CAPSULE 1 CAP PO (13:45)
[2021-01-14] MEDS: SEVELAMER CARBONATE 800 MG TABLET PO ×2 (13:45→20:48)
--- NOTE | 2021-01-14 13:54 | PM.PNNEP ---
Progress Note: A&P Assessment and Plan (1) ESRD (end stage renal disease) on dialysis: Code(s): N18.6 - End stage renal disease; Z99.2 - Dependence on renal dialysis Status: Chronic Assessment and Plan: Ish has end-stage renal disease. He Will get dialysis today (2) Acute respiratory failure: Qualifiers: Respiratory failure complication: unspecified whether with hypoxia or hypercapnia Qualified Code(s): J96.00 - Acute respiratory failure, unspecified whether with hypoxia or hypercapnia Code(s): J96.00 - Acute respiratory failure, unspecified whether with hypoxia or hypercapnia Status: Acute Assessment and Plan: He had pulmonary edema, probably more from his blood pressure than from his weight gains. . he looks compensated now. (3) Cellulitis of foot: Code(s): L03.119 - Cellulitis of unspecified part of limb Status: Acute Assessment and Plan: he is getting antibiotics and is undergoing evaluation of this foot. status post toe amputation. Afebrile. White cell count Is up and down. (4) Cardiomyopathy: Code(s): I42.9 - Cardiomyopathy, unspecified Status: Chronic Assessment and Plan: EF only 25-30%. He seems to be compensated (5) Hypertension: Qualifiers: Hypertension type: unspecified Qualified Code(s): I10 - Essential (primary) hypertension Code(s): I10 - Essential (primary) hypertension Status: Chronic Assessment and Plan: His blood pressure is better Systolic is in the 140s (6) Anemia: Code(s): D64.9 - Anemia, unspecified Status: Acute Assessment and Plan: hemoglobin is below 10 now. Will give EPO (7) Erythropoietin deficiency anemia: Code(s): D63.1 - Anemia in chronic kidney disease Status: Acute (8) Tobacco abuse: Code(s): Z72.0 - Tobacco use Status: Acute Assessment and Plan: encouraged to stop smoking (9) IDDM (insulin dependent diabetes mellitus): Status: Chronic Subjective Date/time seen: 01/14/21 13:54 Interval history: Ish is feeling good going for a nuclear scan. To get dialysis later today. Exam Narrative: Exam Narrative: WDWN in NAD skin no rash Or subcu nodules head ncat lungs clear bilaterally cor reg no rub abd BS+ nontender and soft ext no edema. Right [id number] amputation. Left foot has a necrotic 2nd toe and erythema proximal to that. Objective Data Vital Signs Vital Signs: Vital Signs - 24 hr 01/13/21 14:00 01/13/21 15:00 01/13/21 16:00 Temperature 36.6 C 36.6 C 36.6 C Pulse Rate 82 80 84 Respiratory Rate 16 16 16 Blood Pressure 150/65 H 152/61 H 165/88 H Pulse Oximetry 98 98 95 01/13/21 18:00 01/13/21 18:51 01/13/21 20:00 Temperature 36.9 C Pulse Rate 92 90 91 Respiratory Rate 16 Blood Pressure 169/83 H Pulse Oximetry 99 01/13/21 20:20 01/13/21 20:23 01/13/21 20:35 Temperature Pulse Rate 91 Respiratory Rate Blood Pressure Pulse Oximetry 99 99 01/13/21 23:47 01/14/21 00:00 01/14/21 02:00 Temperature 36.4 C Pulse Rate 85 84 72 Respiratory Rate 18 Blood Pressure 155/67 H Pulse Oximetry 100 01/14/21 04:00 01/14/21 06:00 01/14/21 08:00 Temperature 36.4 C 36.7 C Pulse Rate 77 71 94 Respiratory Rate 18 18 Blood Pressure 141/89 H 148/75 H Pulse Oximetry 96 98 01/14/21 10:00 01/14/21 10:41 01/14/21 12:00 Temperature 36.6 C Pulse Rate 85 84 Respiratory Rate 16 Blood Pressure 141/67 H Pulse Oximetry 98 98 01/14/21 13:44 Temperature Pulse Rate 87 Respiratory Rate Blood Pressure Pulse Oximetry Intake/Output Intake/Output: Intake & Output 01/11/21 01/12/21 01/13/21 01/14/21 23:59 23:59 23:59 23:59 Intake Total 650 1320 2085 1080 Output Total 3000 525 Balance -0971 799 2086 1080 Meds/Results Medications: Active Medications Generic Name
[2021-01-14] MEDS: EPOETIN ALFA-EPBX 10,000 UNITS/ML VIAL 10000 UNITS IV PUSH (16:37)
[2021-01-14] MEDS: rOPINIRole HCL 0.25 MG TABLET PO ×2 (17:42→20:47)
[2021-01-14 19:52] LABS: Hepatitis Be Antibody Nonreactive; Hepatitis Be Antigen Nonreactive
[2021-01-14] MEDS: ATORVASTATIN 40 MG TABLET 80 MG PO (20:48)
[2021-01-14] MEDS: IMIPENEM/CILASTATIN SODIUM 200 MG in DEXTROSE 5% 100 ML 100 MG IVPB (20:58)
[2021-01-14] MEDS: ALBUTEROL SULFATE (*SP) AEROSOL 1 PUFF INHALATION (22:09)
[2021-01-14] MEDS: METOCLOPRAMIDE HCL 2.5 MG TABLET PO (22:20)
[2021-01-14 22:30] LABS: Glucose Point of Care 65 (65-105)
[2021-01-14 22:30] LABS: Glucose Point of Care 103 (65-105)
[2021-01-14] MEDS: TEMAZEPAM (*CRX) 15 MG CAPSULE PO (23:29)
[2021-01-14 23:36] LABS: Vancomycin Random 11.6 ug/mL (10-20)
[2021-01-15] VITALS (11 sets, daily range): BP systolic 128–155; BP diastolic 41–70; PULSE 71–84; RESP 16–20; TEMP 35.6–36.4; O2SAT 95–100
[2021-01-15] MEDS: carvediloL 25 MG TABLET PO ×2 (00:44→21:49)
[2021-01-15] MEDS: IMIPENEM/CILASTATIN SODIUM 200 MG in DEXTROSE 5% 100 ML 300 MG IVPB ×2 (03:44→08:51)
[2021-01-15 04:58] LABS: Basophils Percent Auto 0.4 % (0.2-1.2); Eosinophils Absolute Auto 0.2 K/mm3 (0-0.3); Eosinophils Percent Auto 2.4 % (0-4.4); Hematocrit 34.1 % (42.0-52.0); Hemoglobin 10.8 g/dL (14.0-18.0); Immature Granulocyte Absolute 0.08 K/mm3 (0.00-0.031); Immature Granulocyte Percent A 0.8 % (0-0.5); Lymphocytes Absolute Auto 1.66 K/mm3 (0.9-3.2); Lymphocytes Percent Auto 16.5 % (18.3-44.2); Mean Corpuscular HGB Conc 31.7 g/dl (32-36); Mean Corpuscular Hemoglobin 29.7 pg (26-34); Mean Corpuscular Volume 93.7 fl (80-100); Mean Platelet Volume 9.7 fl (7.4-10.4); Monocytes Absolute Auto 0.8 K/mm3 (0.1-0.6); Monocytes Percent Auto 8.1 % (2.6-8.5); Neutrophils Absolute Auto 7.2 K/mm3 (1.3-6.7); Neutrophils Percent Auto 71.8 % (45.5-73.1); Platelet Count Result 480 k/mm3 (150-375); Red Blood Count 3.64 M/mm3 (4.6-6.20); White Blood Count 10.1 K/mm3 (4.5-10.0)
[2021-01-15 05:18] LABS: Albumin Level 3.5 g/dL (3.5-5.1); Anion Gap 8 mmol/L (8-16); Blood Urea Nitrogen 36 mg/dL (9-20); Calcium 8.4 mg/dL (8.4-10.2); Carbon Dioxide 33 mmol/L (22-30); Chloride 91 mmol/L (98-107); Estimated CRCL calculation 9 ml/min; Estimated Glomerular Filt Rate 9; Glucose 250 mg/dL (75-110); Phosphorus 6.9 mg/dL (2.5-4.5); Potassium 4.2 mmol/L (3.4-5.0); Sodium 132 mmol/L (137-145)
[2021-01-15] MEDS: METOCLOPRAMIDE HCL 2.5 MG TABLET PO ×4 (06:46→21:44)
[2021-01-15 08:10] LABS: Glucose Point of Care 263 (65-105)
[2021-01-15] MEDS: INSULIN ASPART (*BKC) 100 UNITS/ML SUB-Q ×2 (08:52→17:13)
[2021-01-15] MEDS: NICOTINE (*PBKC) 21 MG PATCH 1 PATCH TRANSDERM (08:52)
[2021-01-15] MEDS: TICAGRELOR 90 MG TABLET PO ×2 (08:53→21:52)
[2021-01-15] MEDS: PANTOPRAZOLE SODIUM IV 40 MG VIAL IV PUSH ×2 (08:53→21:51)
[2021-01-15] MEDS: SERTRALINE HCL 50 MG TABLET 100 MG PO (08:53)
[2021-01-15] MEDS: SEVELAMER CARBONATE 800 MG TABLET PO ×3 (08:53→17:14)
[2021-01-15] MEDS: SILVERGEL (ELTA) 45 ML 1 APPLIC TOPICAL (08:53)
[2021-01-15] MEDS: FUROSEMIDE 80 MG TABLET PO ×2 (08:54→17:14)
[2021-01-15] MEDS: carvediloL 25 MG TABLET 50 MG PO (08:54)
[2021-01-15] MEDS: VITAMIN B CMPLX/VIT C/FOLIC AC 1 CAPSULE 1 CAP PO (08:54)
[2021-01-15] MEDS: ASPIRIN 81 MG ENTERIC TABLET PO (08:54)
[2021-01-15] MEDS: HYDROmorphone HCL INJ (*CRX) 1 MG/ML SYR IV PUSH ×6 (08:56→21:44)
--- NOTE | 2021-01-15 09:39 | PM.PNGS ---
Progress Note: A&P Assessment and Plan (1) Gangrene: Code(s): I96 - Gangrene, not elsewhere classified Status: Acute Assessment and Plan: Wound looks good today. Continue local wound care with silver gel dressing changes daily. Patient states he has help with both his and daughter to perform dressing changes at home. WBC trending towards normal. Cellulitis of the left foot is improving. Okay from our standpoint to switch to oral antibiotics and discharge home when okay with all other services. Will have the patient set up for follow-up with Dr. Hercules in the wound clinic in 2 weeks. Continue to wear post-op shoe with ambulation. Additional Plan I discussed the plan of care with Dr. Hercules today. Subjective Subjective Date/Time Seen: 01/15/21 09:39 Post Op day: 2 (left 2nd toe guillotine amputation, washout) Patient reports: no new complaints, pain is less and afebrile Interval history: Patient feeling well this morning. No new complaints. Reports pain in his left foot is improving. Wearing the post-op shoe with any ambulation. Review of Systems Review of Systems: All systems reviewed & are unremarkable except as noted in HPI and below Constitutional: Constitutional: Denies chills and Denies fever(s) Exam Const: General: no acute distress, alert and awake Orientation/consciousness: patient oriented x3 Skin: Other: Left foot with open wound s/p 2nd toe amputation with no purulent drainage, some dusky tissue but also some granulation tissue forming, bone exposed. Surrounding cellulitis/erythema improving of left foot. Neuro: General: moves all extremities and no focal motor deficits Extrem: General: amputation noted Below the knee: right Left lower extremity: foot Details: vascular exam Details: other (unable to palpate DP or PT, able to doppler both on left) Psych: Mental Status: mental status grossly normal Insight: Good insight present (Psych) Judgement: Good judgement present (Psych) Objective Data Vital Signs Vital Signs: Vital Signs - 24 hr 01/14/21 10:00 01/14/21 10:41 01/14/21 12:00 Temperature 97.8 F Pulse Rate 85 84 Respiratory Rate 16 Blood Pressure 141/67 H Pulse Oximetry 98 98 01/14/21 13:44 01/14/21 14:00 01/14/21 15:55 Temperature 98.0 F Pulse Rate 87 89 81 Respiratory Rate 22 H Blood Pressure 141/72 H Pulse Oximetry 01/14/21 16:00 01/14/21 16:03 01/14/21 16:15 Temperature 97 F L Pulse Rate 81 80 82 Respiratory Rate 14 Blood Pressure 116/83 142/71 H 132/63 Pulse Oximetry 99 01/14/21 16:30 01/14/21 16:45 01/14/21 17:00 Temperature Pulse Rate 88 85 84 Respiratory Rate Blood Pressure 149/75 H 124/68 121/58 L Pulse Oximetry 01/14/21 17:15 01/14/21 17:30 01/14/21 17:45 Temperature Pulse Rate 83 88 89 Respiratory Rate Blood Pressure 142/60 H 132/62 127/67 Pulse Oximetry 01/14/21 18:00 01/14/21 18:15 01/14/21 18:30 Temperature Pulse Rate 87 91 89 Respiratory Rate Blood Pressure 138/69 123/66 110/57 L Pulse Oximetry 01/14/21 18:45 01/14/21 19:00 01/14/21 20:00 Temperature Pulse Rate 91 81 93 Respiratory Rate Blood Pressure 93/55 L 97/48 L Pulse Oximetry 01/14/21 22:25 01/15/21 00:00 01/15/21 00:44 Temperature 96.9 F L Pulse Rate 77 79 Respiratory Rate 18 Blood Pressure 135/41 L Pulse Oximetry 99 100 01/15/21 04:00 01/15/21 08:00 01/15/21 08:54 Temperature 96.9 F L 97.6 F Pulse Rate 72 79 83 Respiratory Rate 20 16 Blood Pressure 132/61 155/70 H Pulse Oximetry 99 100 Intake/Output Intake/Output: Intake & Output 01/12/21 01/13/21 01/14/21 01/15/21 23:59 23:59 23:59 23:59 Intake Total 1320 2085 2000 850 Output Total 525 2485 Balance 795 2085 -485 850 Meds/Results Medications: Active Medications Generic Name Dose Route Start Last Admin Trade Name Freq PRN Reason Stop Dose Admin Albuterol 1 puff 01/11/21 16:00 01/14/21 22:09
--- NOTE | 2021-01-15 10:08 | PM.DS ---
DS: Admitting Diagnosis Admitting Diagnosis Admitting Diagnosis: DS: Summary Time Spent with Patient Time attestation: Total time spent providing and/or coordinating discharge services: DS: Data Data Completed and Pending Pending studies at discharge: Pending at discharge 01/13/21 07:55 Surgical [PTH] Routine Labs on day of discharge: Labs from last 24 hours 01/15/21 01/15/21 01/15/21 07:50 04:28 04:27 WBC 10.1 H RBC 3.64 L Hgb 10.8 L Hct 34.1 L MCV 93.7 MCH 29.7 MCHC 31.7 L RDW 17.0 H Plt Count 480 H MPV 9.7 Immature Gran % (Auto) 0.8 H Neut % (Auto) 71.8 Lymph % (Auto) 16.5 L [place] % (Auto) 8.1 Eos % (Auto) 2.4 Baso % (Auto) 0.4 Lymph # (Auto) 1.66 [place] # (Auto) 0.8 H Eos # (Auto) 0.2 Baso # (Auto) 0.0 Abs Immat Gran (auto) 0.08 H Absolute Neuts (auto) 7.2 H Absolute Nucleated RBC 0.0 Nucleated RBC % 0.0 Sodium 132 L Potassium 4.2 Chloride 91 L Carbon Dioxide 33 H Anion Gap 8 BUN 36 H D Creatinine 6.70 H Estim Creat Clear Calc 9 Estimated GFR 9 L Glucose 250 H POC Capillary Glucose 263 H Calcium 8.4 Phosphorus 6.9 H Albumin 3.5 Random Vancomycin Hepatitis Be Antibody Hepatitis Be Antigen 01/14/21 01/14/21 01/14/21 22:11 21:55 20:24 WBC RBC Hgb Hct MCV MCH MCHC RDW Plt Count MPV Immature Gran % (Auto) Neut % (Auto) Lymph % (Auto) [place] % (Auto) Eos % (Auto) Baso % (Auto) Lymph # (Auto) [place] # (Auto) Eos # (Auto) Baso # (Auto) Abs Immat Gran (auto) Absolute Neuts (auto) Absolute Nucleated RBC Nucleated RBC % Sodium Potassium Chloride Carbon Dioxide Anion Gap BUN Creatinine Estim Creat Clear Calc Estimated GFR Glucose POC Capillary Glucose 103 65 Calcium Phosphorus Albumin Random Vancomycin 11.6 Hepatitis Be Antibody Hepatitis Be Antigen 01/14/21 01/14/21 01/11/21 12:12 11:50 15:22 WBC RBC Hgb Hct MCV MCH MCHC RDW Plt Count MPV Immature Gran % (Auto) Neut % (Auto) Lymph % (Auto) [place] % (Auto) Eos % (Auto) Baso % (Auto) Lymph # (Auto) [place] # (Auto) Eos # (Auto) Baso # (Auto) Abs Immat Gran (auto) Absolute Neuts (auto) Absolute Nucleated RBC Nucleated RBC % Sodium Potassium Chloride Carbon Dioxide Anion Gap BUN Creatinine Estim Creat Clear Calc Estimated GFR Glucose POC Capillary Glucose 107 55 L* Calcium Phosphorus Albumin Random Vancomycin Hepatitis Be Antibody Nonreactive Hepatitis Be Antigen Nonreactive Preliminary micro results at discharge 01/11/21 02:29 Blood Culture - Preliminary Blood 01/11/21 02:29 Blood Culture - Preliminary Blood Discharge Plan Discharge Consulting providers: Isabell Hercules ; Jony Martino Wound Care Instructions: follow printed instructions Discharge Instructions: Wound Care Instructions Apply Silver gel to the open wound on the left foot, cover with gauze and wrap with roll gauze. Change once a day. You will see Dr. Hercules at the [facility] on Monday January 25, 2021 at 1:00pm Patient Instructions: How to Stop Smoking (DC), Extrapyramidal Symptoms (DC) Follow-up/Referrals: Isabell Hercules MD [Physician] - 01/25/21 1:00 pm (You will see Dr. Hercules at the [facility] on Monday January 25, 2021 at 1:00pm. Please arrive to the hospital at 12:30pm as you must register. Registration is located in the main lobby of Hospital Entrance 1. Once you are Registered, the wound center is located on the 2nd floor. For any questions regarding your appointment please call [phone].) Discharge Medications: No Action aspirin 81 mg Tablet,Delayed Release (Dr/Ec) 81 mg PO DAILY R
--- NOTE | 2021-01-15 10:11 | PM.IMPN ---
Progress Note: A&P Assessment and Plan (1) Acute respiratory failure: Qualifiers: Respiratory failure complication: unspecified whether with hypoxia or hypercapnia Qualified Code(s): J96.00 - Acute respiratory failure, unspecified whether with hypoxia or hypercapnia Code(s): J96.00 - Acute respiratory failure, unspecified whether with hypoxia or hypercapnia Status: Acute Assessment and Plan: Acute respiratory failure secondary to acute flash pulmonary edema. Patient started on Bipap support. Patient had hemodialysis on the day of admission with removal of 3 L. Patient had marked symptomatic improvement and able to be weaned off BIPAP and back on room air now. Continue to monitor. (2) Flash pulmonary edema: Code(s): J81.0 - Acute pulmonary edema Status: Acute Assessment and Plan: Secondary to being fluid overloaded and/or related to the severe HTN. He has not missed HD. The patient has an extensive history of flash pulmonary edema. Doppler negative for renal artery stenosis. Patient admits to being noncompliant with his diet. Nephrology following and appreciate their input. Symptoms much better after HD. Continue to use HD to control fluid status. Educated about the benefits of minimizing fluid intake especially when he off HD for 2 days (3) Hypertensive urgency: Code(s): I16.0 - Hypertensive urgency Status: Acute Assessment and Plan: BP was 228/143 on admission. Unclear if this is a result of the respiratory failure and pulmonary edema or the cause of it. Patient's blood pressure was reviewed on 01/15 Blood pressure soft last night but much better controlled overall. Will continue current medications. Continue home antihypertensives. PRN IV hydralazine w/ parameters is ordered. (4) Nausea and vomiting: Code(s): R11.2 - Nausea with vomiting, unspecified Status: Acute Assessment and Plan: Nausea with vomiting that is acute on chronic. Acute process could be related to the pain and/or narcotics. Could also be worse related to the infection. Chronic n/v secondary to gastroparesis with GES showing delayed gastric emptying with gastric retention of meal of 105%, 104%, and 94% at the 1-hour, 2-hour, and 4-hour time points, respectively. Reglan added. Continue Protonix. (5) Sepsis: Qualifiers: Acute respiratory failure type: unspecified Sepsis acute organ dysfunction status: with acute organ dysfunction Sepsis type: sepsis due to unspecified organism Severe sepsis acute organ dysfunction type: acute respiratory failure Severe sepsis shock status: unspecified Qualified Code(s): A41.9 - Sepsis, unspecified organism; R65.20 - Severe sepsis without septic shock; J96.00 - Acute respiratory failure, unspecified whether with hypoxia or hypercapnia Code(s): A41.9 - Sepsis, unspecified organism Status: Acute Assessment and Plan: Present on admission with leukocytosis, tachycardia. Source of sepsis appears to be left foot cellulitis and necrotic toe. Continue IV antibiotics with Primaxin and Vancomycin Day 5. (6) Cellulitis of foot: Code(s): L03.119 - Cellulitis of unspecified part of limb Status: Acute Assessment and Plan: Initially was a wound to the left 2nd toe treated with abx early part of December. Was doing well until he slipped and stubbing the left 2nd toe. Seen here in ED 01/08 and discharged home on clindamycin. Erythema to the left dorsum consistent with cellulitis associated with the necrotic toe. BCx NGTD from 01/08 and 01/11. Continue IV antibiotics. Surgical input appreciated. Consult ID for abx choice with goals for cure. 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 Arterial doppler 12/24/20 on the LLE showing signific
[2021-01-15] MEDS: INSULIN GLARGINE (*BKC) 100 UNITS/ML 12 UNITS SUB-Q (10:17)
--- NOTE | 2021-01-15 11:27 | PM.PNNEP ---
Progress Note: A&P Assessment and Plan (1) ESRD (end stage renal disease) on dialysis: Code(s): N18.6 - End stage renal disease; Z99.2 - Dependence on renal dialysis Status: Chronic Assessment and Plan: Ish has end-stage renal disease. He received dialysis yesterday. He will get it today here or at [facility] depending on discharge. (2) Acute respiratory failure: Qualifiers: Respiratory failure complication: unspecified whether with hypoxia or hypercapnia Qualified Code(s): J96.00 - Acute respiratory failure, unspecified whether with hypoxia or hypercapnia Code(s): J96.00 - Acute respiratory failure, unspecified whether with hypoxia or hypercapnia Status: Acute Assessment and Plan: He had pulmonary edema, probably more from his blood pressure than from his weight gains. . he looks compensated now. (3) Cellulitis of foot: Code(s): L03.119 - Cellulitis of unspecified part of limb Status: Acute Assessment and Plan: he is getting antibiotics The toe was removed. (4) Cardiomyopathy: Code(s): I42.9 - Cardiomyopathy, unspecified Status: Chronic Assessment and Plan: EF only 25-30%. He seems to be compensated (5) Hypertension: Qualifiers: Hypertension type: unspecified Qualified Code(s): I10 - Essential (primary) hypertension Code(s): I10 - Essential (primary) hypertension Status: Chronic Assessment and Plan: His blood pressure is better Systolic is in the 140s (6) Anemia: Code(s): D64.9 - Anemia, unspecified Status: Acute Assessment and Plan: hemoglobin is below 10 now. Will give EPO (7) Erythropoietin deficiency anemia: Code(s): D63.1 - Anemia in chronic kidney disease Status: Acute (8) Tobacco abuse: Code(s): Z72.0 - Tobacco use Status: Acute Assessment and Plan: encouraged to stop smoking (9) IDDM (insulin dependent diabetes mellitus): Status: Chronic Subjective Date/time seen: 01/15/21 11:27 Interval history: Ish is feeling fine today. He is eager for discharge. He wants to go to outpatient dialysis today if he can go home. Exam Narrative: Exam Narrative: WDWN in NAD skin no rash Or subcu nodules head ncat lungs clear bilaterally cor reg no rub or gallop abd BS+ nontender and soft ext no edema. Right [id number] amputation. Left foot has a bandage Objective Data Vital Signs Vital Signs: Vital Signs - 24 hr 01/14/21 12:00 01/14/21 13:44 01/14/21 14:00 Temperature 36.6 C Pulse Rate 84 87 89 Respiratory Rate 16 Blood Pressure 141/67 H Pulse Oximetry 98 01/14/21 15:55 01/14/21 16:00 01/14/21 16:03 Temperature 36.7 C 36.1 C L Pulse Rate 81 81 80 Respiratory Rate 22 H 14 Blood Pressure 141/72 H 116/83 142/71 H Pulse Oximetry 99 01/14/21 16:15 01/14/21 16:30 01/14/21 16:45 Temperature Pulse Rate 82 88 85 Respiratory Rate Blood Pressure 132/63 149/75 H 124/68 Pulse Oximetry 01/14/21 17:00 01/14/21 17:15 01/14/21 17:30 Temperature Pulse Rate 84 83 88 Respiratory Rate Blood Pressure 121/58 L 142/60 H 132/62 Pulse Oximetry 01/14/21 17:45 01/14/21 18:00 01/14/21 18:15 Temperature Pulse Rate 89 87 91 Respiratory Rate Blood Pressure 127/67 138/69 123/66 Pulse Oximetry 01/14/21 18:30 01/14/21 18:45 01/14/21 19:00 Temperature Pulse Rate 89 91 81 Respiratory Rate Blood Pressure 110/57 L 93/55 L 97/48 L Pulse Oximetry 01/14/21 20:00 01/14/21 22:25 01/15/21 00:00 Temperature 36.1 C L Pulse Rate 93 77 Respiratory Rate 18 Blood Pressure 135/41 L Pulse Oximetry 99 100 01/15/21 00:44 01/15/21 04:00 01/15/21 08:00 Temperature 36.1 C L 36.4 C Pulse Rate 79 72 79 Respiratory Rate 20 16 Blood Pressure 132/61 155/70 H Pulse Oximetry 99 100 01/15/21 08:54 Temperature Pulse R
[2021-01-15 12:57] LABS: Glucose Point of Care 195 (65-105)
--- NOTE | 2021-01-15 13:54 | WPDINFPN2 ---
Progress Note: A&P Assessment and Plan (1) Gangrene: Code(s): I96 - Gangrene, not elsewhere classified Status: Acute Assessment and Plan: Gangrene L 2nd toe with cellulitis at open wound REC Clinda x 2 weeks. Subjective Date/time seen: 01/15/21 13:54 Objective Data Vital Signs Vital Signs: Vital Signs - 24 hr 01/14/21 14:00 01/14/21 15:55 01/14/21 16:00 Temperature 36.7 C 36.1 C L Pulse Rate 89 81 81 Respiratory Rate 22 H 14 Blood Pressure 141/72 H 116/83 Pulse Oximetry 99 01/14/21 16:03 01/14/21 16:15 01/14/21 16:30 Temperature Pulse Rate 80 82 88 Respiratory Rate Blood Pressure 142/71 H 132/63 149/75 H Pulse Oximetry 01/14/21 16:45 01/14/21 17:00 01/14/21 17:15 Temperature Pulse Rate 85 84 83 Respiratory Rate Blood Pressure 124/68 121/58 L 142/60 H Pulse Oximetry 01/14/21 17:30 01/14/21 17:45 01/14/21 18:00 Temperature Pulse Rate 88 89 87 Respiratory Rate Blood Pressure 132/62 127/67 138/69 Pulse Oximetry 01/14/21 18:15 01/14/21 18:30 01/14/21 18:45 Temperature Pulse Rate 91 89 91 Respiratory Rate Blood Pressure 123/66 110/57 L 93/55 L Pulse Oximetry 01/14/21 19:00 01/14/21 20:00 01/14/21 22:25 Temperature Pulse Rate 81 93 Respiratory Rate Blood Pressure 97/48 L Pulse Oximetry 99 01/15/21 00:00 01/15/21 00:44 01/15/21 04:00 Temperature 36.1 C L 36.1 C L Pulse Rate 77 79 72 Respiratory Rate 18 20 Blood Pressure 135/41 L 132/61 Pulse Oximetry 100 99 01/15/21 08:00 01/15/21 08:54 01/15/21 10:00 Temperature 36.4 C Pulse Rate 76 83 81 Respiratory Rate 18 Blood Pressure 155/70 H Pulse Oximetry 97 01/15/21 12:00 Temperature 36.3 C L Pulse Rate 74 Respiratory Rate 18 Blood Pressure 128/53 L Pulse Oximetry 97 Intake/Output Intake/Output: Intake & Output 01/12/21 01/13/21 01/14/21 01/15/21 23:59 23:59 23:59 23:59 Intake Total 1320 2085 1999 1430 Output Total 525 2485 Balance 795 2085 -485 1430 Meds/Results Medications: Active Medications Generic Name Dose Route Start Last Admin Trade Name Freq PRN Reason Stop Dose Admin Albuterol 1 puff 01/11/21 16:00 01/14/21 22:09 Albuterol Sulfate (*Sp) Aerosol 1 Puff INHALATION 1 puff QIDRT MARTHA Administration Aspirin 81 mg 01/12/21 09:00 01/15/21 08:54 Aspirin 81 Mg Enteric Tablet PO 81 mg DAILY MARTHA Administration Atorvastatin Calcium 80 mg 01/11/21 21:00 01/14/21 20:48 Atorvastatin 40 Mg Tablet PO 80 mg HS MARTHA Administration Carvedilol 25 mg 01/11/21 21:00 01/15/21 00:44 Carvedilol 25 Mg Tablet PO 25 mg HS MARTHA Administration Carvedilol 50 mg 01/12/21 09:00 01/15/21 08:54 Carvedilol 25 Mg Tablet PO 50 mg DAILY MARTHA Administration Dextrose 12.5 gm 01/11/21 02:43 01/14/21 11:52 Dextrose 50% 25 Gm/50 Ml Syringe IV PUSH 12.5 gm PRN PRN Administration Hypoglycemia Protocol Epoetin Johnnie-epbx 10,000 units 01/15/21 09:00 01/14/21 16:37 Epoetin Johnnie-Epbx 10,000 Units/Ml Vial IV PUSH 10,000 units [id number] MARTHA Administration Furosemide 80 mg 01/11/21 17:00 01/15/21 08:54 Furosemide 80 Mg Tablet PO 80 mg BID MARTHA Administration Glucagon 1 mg 01/11/21 02:43 Glucagon For Inj 1 Mg Vial IM PRN PRN Hypoglycemia Protocol Glucose 15 gm 01/11/21 02:43 Glucose Oral Gel 15 Gm Of Glucse In 37.5 Gm Tube PO PRN PRN Hypoglycemia Protocol Heparin Sodium (Porcine) 5,000 units 01/12/21 21:00 01/15/21 10:16 Heparin Sodium 5,000 Units/Ml Vial SUB-Q Not Given Q12HR MARTHA Hydromorphone HCl 1 mg 01/12/21 10:10 01/15/21 12:30 Hydromorphone Hcl Inj (*Crx) 1 Mg/Ml Syr IV PUSH 1 mg Q2H PRN Administration Pain Rated 7-10 Dextrose 1,000 mls @ 100 mls/hr 01/11/21 02:43 Dextrose 5% 1,000 Ml IVPB PRN PRN Hypoglycemia Protocol Insulin Aspart 2 - 5 units 01/13/21 1
[2021-01-15] MEDS: CLINDAMYCIN HCL 150 MG CAP 300 MG PO ×2 (14:46→21:43)
[2021-01-15] MEDS: LORazepam (*CRX) 0.5 MG TABLET PO (14:46)
[2021-01-15 18:03] LABS: Glucose Point of Care 212 (65-105)
--- NOTE | 2021-01-15 18:24 | ADMGEN ---
This patient, Ish Corley, was admitted to 3rd med/surg Room 312-01. Patient/family oriented to hospital policies and general routines including ID bracelet, bed and alarms, visiting hours, pain management, procedures, bathroom and other care routines, personal items, smoking policy, room service/diet, and visiting hours. Information on how to activate the Rapid Response Team has been discussed. Patient/Family are encouraged to report perceived risks to care and to ask questions if they do not understand what they are told or what they should do.
--- NOTE | 2021-01-15 18:31 | PC.NURSE ---
This patient, Ish Corley, was transferred to [[id number] ] on 01/15/21 at 1820. Personal belongings sent with patient. Report given to [RN ]. Appropriate documentation sent with patient.
--- NOTE | 2021-01-15 19:38 | CONS_ITS ---
DATE OF CONSULTATION: 01/15/2021 REASON FOR CONSULTATION: Soft tissue infection, left foot. HISTORY OF PRESENT ILLNESS: A 55-year-old male with chronic renal failure and type 1 diabetes mellitus. The former has been on dialysis need for about 3 years. 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 He accidentally struck the left first and second toes against a hard wooden object at home about 3 weeks before admission, but the following day he had discoloration in the first and second toes and this progressed until the time of the present admission, which was early on January 11. He has been given imipenem and vancomycin for suspected infection of the left 2nd toe and consultation requested. He was taken to the operating room on January 13 where he underwent guillotine amputation of the left 2nd toe, with washout some purulence was encountered as well. Pathology as below. Consultation requested today. No fever, chills, or sweats. He is on no antibiotics for this indication prior to admission. No previous operations to the foot nor the toes. He knows of no other trauma. ALLERGIES: SCOPOLAMINE. HABITS: Three cigarettes per day and he hopes to quit. He smokes marijuana. No alcohol. PRESENT MEDICATIONS: No immunosuppressants. PAST MEDICAL HISTORY: AV fistula, left arm; hemorrhoidectomy; cataract extraction; spine surgery; coronary stents; non-ST NV; seizure disorder; hypertension; GERD; PUD; depression; anxiety; heart failure; BPH. FAMILY HISTORY: Not pertinent to his present illness. SOCIAL HISTORY: He is , disabled, and lives locally. REVIEW OF SYSTEMS: He does urinate some. Appetite has been diminished. Weight has been stable. He has noted some dyspnea, which is now resolved. 14-point review otherwise negative. PHYSICAL EXAMINATION: GENERAL: This is a middle-aged male who appears older than his actual age. No acute distress. VITAL SIGNS: Afebrile since arrival, 74, 18, 128/53, 97% on room air. SKIN: Few ecchymoses, warm and dry. No erythroderma. EENT: The conjunctivae are clear. Pupils equal, round, reactive. The oropharynx, oral mucosa normal. NECK: No masses. No thyromegaly. No asymmetry. LUNGS: Clear to auscultation and percussion. Good air entry. CHEST: Equal expansion. Normal AP diameter. CARDIAC: Regular rate and rhythm. No murmurs or gallops. Popliteal pulse on the left is 1+, unable to palpate dorsalis pedis. ABDOMEN: Scaphoid, nontender. No mass. No organomegaly. EXTREMITIES: Right BKA stump and he has a prosthesis. On the left, he has a blood blister over the lateral aspect of the first toe distal phalanx, approximately 0.5 cm in diameter. There is no gangrene. There is an open wound at the left foot and no gangrene presently; however, he does have some mild erythema over the dorsum of the foot. He has diminished light touch sensation. LABORATORY DATA: No cultures obtained. Surgical pathology with atherosclerosis and gangrenous changes with soft tissue inflammation at the margins. Blood cultures are no growth. White count 10.1, was 18.3 on admission; hemoglobin 10.8; platelets are 480. Differential is normal. His A1c was mildly high at 8.7%. His BUN 36, creatinine 6.7, chloride low, sodium low, albumin normal. RADIOLOGY: Foot x-ray showed no bone destruction. His duplex Doppler of the kidneys normal. He also had a lower extremity Doppler on the left performed 12/24/2020, as an outpatient. Significant arterial occlusive disease as described. ASSESSMENT: 1. Gangrene and resulting soft tissue infection, left second toe, postop day 2 amputation. He has mild cellulitis at the remaining part of his foot. No sepsis. 2. Chronic renal failure. 3. Carri
[2021-01-15] MEDS: ONDANSETRON INJ 4 MG/2 ML VIAL IV PUSH (19:42)
[2021-01-15] MEDS: rOPINIRole HCL 0.25 MG TABLET PO (21:43)
[2021-01-15] MEDS: ATORVASTATIN 40 MG TABLET 80 MG PO (21:43)
[2021-01-15 22:39] LABS: Glucose Point of Care 72 (65-105)
[2021-01-15 22:39] LABS: Glucose Point of Care 48 (65-105)
[2021-01-16] VITALS (22 sets, daily range): BP systolic 90–161; BP diastolic 53–77; PULSE 60–89; RESP 12–20; TEMP 36.1–37; O2SAT 98–100
[2021-01-16] MEDS: HYDROmorphone HCL INJ (*CRX) 1 MG/ML SYR IV PUSH ×4 (03:24→14:22)
[2021-01-16 03:56] LABS: Glucose Point of Care 261 (65-105)
[2021-01-16] MEDS: TICAGRELOR 90 MG TABLET PO (08:40)
[2021-01-16] MEDS: FUROSEMIDE 80 MG TABLET PO (08:41)
[2021-01-16] MEDS: CLINDAMYCIN HCL 150 MG CAP 300 MG PO (08:41)
[2021-01-16] MEDS: carvediloL 25 MG TABLET 50 MG PO (08:41)
[2021-01-16] MEDS: SERTRALINE HCL 50 MG TABLET 100 MG PO (08:42)
[2021-01-16] MEDS: ASPIRIN 81 MG ENTERIC TABLET PO (08:42)
[2021-01-16] MEDS: VITAMIN B CMPLX/VIT C/FOLIC AC 1 CAPSULE 1 CAP PO (08:42)
[2021-01-16] MEDS: SEVELAMER CARBONATE 800 MG TABLET PO (08:42)
[2021-01-16] MEDS: METOCLOPRAMIDE HCL 2.5 MG TABLET PO (08:42)
[2021-01-16] MEDS: SILVERGEL (ELTA) 45 ML 1 APPLIC TOPICAL (08:43)
[2021-01-16] MEDS: PANTOPRAZOLE SODIUM IV 40 MG VIAL IV PUSH (08:43)
[2021-01-16] MEDS: NICOTINE (*PBKC) 21 MG PATCH 1 PATCH TRANSDERM (08:43)
[2021-01-16] MEDS: INSULIN ASPART (*BKC) 100 UNITS/ML SUB-Q (09:00)
[2021-01-16] MEDS: INSULIN GLARGINE (*BKC) 100 UNITS/ML 12 UNITS SUB-Q (09:00)
[2021-01-16 10:03] LABS: Glucose Point of Care 280 (65-105)
--- NOTE | 2021-01-16 12:01 | PM.DS ---
DS: Admitting Diagnosis Admitting Diagnosis Admitting Diagnosis: acute respiratory distress. DS: Discharge Diagnosis Discharge Diagnosis (1) Acute respiratory failure: Qualifiers: Respiratory failure complication: unspecified whether with hypoxia or hypercapnia Qualified Code(s): J96.00 - Acute respiratory failure, unspecified whether with hypoxia or hypercapnia Code(s): J96.00 - Acute respiratory failure, unspecified whether with hypoxia or hypercapnia Status: Acute Assessment and Plan: Acute respiratory failure secondary to acute flash pulmonary edema. Patient started on Bipap support on admission. Patient had hemodialysis on the day of admission with removal of 3 L. Patient had marked symptomatic improvement and able to be weaned off BIPAP and back on room air now. (2) Flash pulmonary edema: Code(s): J81.0 - Acute pulmonary edema Status: Acute Assessment and Plan: Secondary to being fluid overloaded and/or related to the severe HTN. He has not missed HD. The patient has an extensive history of flash pulmonary edema. Doppler negative for renal artery stenosis. Patient admits to being noncompliant with his diet. Nephrology followed along. Symptoms much better after HD. We used HD to control fluid status. Patient educated about the benefits of minimizing fluid intake especially when he off HD for 2 days (3) Hypertensive urgency: Code(s): I16.0 - Hypertensive urgency Status: Acute Assessment and Plan: BP was 228/143 on admission. Unclear if this is a result of the respiratory failure and pulmonary edema or the cause of it. Patient's blood pressure was monitored closely. We continued home medications and BP remained well controlled. (4) Nausea and vomiting: Code(s): R11.2 - Nausea with vomiting, unspecified Status: Acute Assessment and Plan: Nausea with vomiting that is acute on chronic. Acute process could be related to the pain and/or narcotics. Could also be worse related to the infection. Chronic n/v secondary to gastroparesis with GES showing delayed gastric emptying with gastric retention of meal of 105%, 104%, and 94% at the 1-hour, 2-hour, and 4-hour time points, respectively. Reglan added. (5) Sepsis: Qualifiers: Acute respiratory failure type: unspecified Sepsis acute organ dysfunction status: with acute organ dysfunction Sepsis type: sepsis due to unspecified organism Severe sepsis acute organ dysfunction type: acute respiratory failure Severe sepsis shock status: unspecified Qualified Code(s): A41.9 - Sepsis, unspecified organism; R65.20 - Severe sepsis without septic shock; J96.00 - Acute respiratory failure, unspecified whether with hypoxia or hypercapnia Code(s): A41.9 - Sepsis, unspecified organism Status: Acute Assessment and Plan: Present on admission with leukocytosis, tachycardia. Source of sepsis appears to be left foot cellulitis and necrotic toe. Treated with IV antibiotics with Primaxin and Vancomycin before changing to Clindamycin orally. (6) Cellulitis of foot: Code(s): L03.119 - Cellulitis of unspecified part of limb Status: Acute Assessment and Plan: Initially was a wound to the left 2nd toe treated with abx early part of December. Was doing well until he slipped and stubbing the left 2nd toe. Seen here in ED 01/08 and discharged home on clindamycin. Erythema to the left dorsum consistent with cellulitis associated with the necrotic toe. BCx NGTD from 01/08 and 01/11. Plan for Clindamycin for 2 weeks. 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 Arterial doppler 12/24/20 on the LLE showing significant arterial occlusive disease to the left lower limb with parvus et tardus arterial wavefo
[2021-01-16] MEDS: EPOETIN ALFA-EPBX 10,000 UNITS/ML VIAL 10000 UNITS IV PUSH (12:06)
[2021-01-16 12:14] LABS: Glucose Point of Care 165 (65-105)
--- NOTE | 2021-01-16 14:51 | PC.NURSE ---
Pt is being discharged. Pt has had IV removed, and tele removed. Pt's discharge paperwork has been reviewed with him and his , with opportunity for questions provided. Both exhibit understanding of discharge instructions, follow up appointments, and new medication. Pt will be assisted by wheelchair to the front of the building to get into his 's car.
--- NOTE | 2021-01-16 15:33 | PM.PNNEP ---
Progress Note: A&P Assessment and Plan (1) ESRD (end stage renal disease) on dialysis: Code(s): N18.6 - End stage renal disease; Z99.2 - Dependence on renal dialysis Status: Chronic Assessment and Plan: Ish has end-stage renal disease. getting dialysis today he is hoping to go home tomorrow (2) Acute respiratory failure: Qualifiers: Respiratory failure complication: unspecified whether with hypoxia or hypercapnia Qualified Code(s): J96.00 - Acute respiratory failure, unspecified whether with hypoxia or hypercapnia Code(s): J96.00 - Acute respiratory failure, unspecified whether with hypoxia or hypercapnia Status: Acute Assessment and Plan: He had pulmonary edema, probably more from his blood pressure than from his weight gains. . he looks compensated now. (3) Cellulitis of foot: Code(s): L03.119 - Cellulitis of unspecified part of limb Status: Acute Assessment and Plan: he is getting antibiotics to get oral antibiotics once dishcharget The toe was removed. (4) Cardiomyopathy: Code(s): I42.9 - Cardiomyopathy, unspecified Status: Chronic Assessment and Plan: EF only 25-30%. He seems to be compensated (5) Hypertension: Qualifiers: Hypertension type: unspecified Qualified Code(s): I10 - Essential (primary) hypertension Code(s): I10 - Essential (primary) hypertension Status: Chronic Assessment and Plan: His blood pressure is better Systolic is in the 140s (6) Anemia: Code(s): D64.9 - Anemia, unspecified Status: Acute Assessment and Plan: hemoglobin is below 10 now. Will give EPO (7) Erythropoietin deficiency anemia: Code(s): D63.1 - Anemia in chronic kidney disease Status: Acute (8) Tobacco abuse: Code(s): Z72.0 - Tobacco use Status: Acute Assessment and Plan: encouraged to stop smoking (9) IDDM (insulin dependent diabetes mellitus): Status: Chronic Subjective Date/time seen: 01/16/21 15:33 Interval history: Ish is feeling fine today. on HD soniya it well. seen at noon Exam Narrative: Exam Narrative: WDWN in NAD skin no rash Or subcu nodules head ncat lungs clear bilaterally cor reg no rub or gallop abd BS+ nontender and soft ext no edema. Right [id number] amputation. Left foot has a bandage Objective Data Vital Signs Vital Signs: Vital Signs - 24 hr 01/15/21 16:00 01/15/21 20:00 01/15/21 21:49 Temperature 36.1 C L 35.6 C L Pulse Rate 77 78 80 Respiratory Rate 18 20 Blood Pressure 150/66 H 151/61 H Pulse Oximetry 100 100 01/15/21 23:52 01/16/21 00:00 01/16/21 04:00 Temperature 36.3 C L 36.2 C L Pulse Rate 84 84 85 Respiratory Rate 20 20 Blood Pressure 147/69 H 161/71 H Pulse Oximetry 95 100 01/16/21 08:00 01/16/21 10:05 01/16/21 10:16 Temperature 36.1 C L 36.6 C Pulse Rate 89 86 86 Respiratory Rate 20 12 Blood Pressure 148/77 H 137/70 137/70 Pulse Oximetry 99 01/16/21 10:30 01/16/21 10:45 01/16/21 11:00 Temperature Pulse Rate 82 81 81 Respiratory Rate Blood Pressure 120/56 L 121/58 L 90/55 L Pulse Oximetry 01/16/21 11:15 01/16/21 11:30 01/16/21 11:45 Temperature Pulse Rate 81 79 80 Respiratory Rate Blood Pressure 106/53 L 106/53 L 129/59 L Pulse Oximetry 01/16/21 12:00 01/16/21 12:15 01/16/21 12:30 Temperature 36.5 C Pulse Rate 82 81 80 Respiratory Rate 20 Blood Pressure 129/59 L 110/55 L 123/58 L Pulse Oximetry 98 01/16/21 12:45 01/16/21 13:00 01/16/21 13:15 Temperature Pulse Rate 85 80 81 Respiratory Rate Blood Pressure 140/61 126/59 L 122/60 Pulse Oximetry 01/16/21 13:30 01/16/21 13:45 01/16/21 13:46 Temperature Pulse Rate 82 81 82 Respiratory Rate Blood Pressure 142/68 H 114/61 117/56 L Pulse Oximetry 01/16/21 13:55 Temperature 36.7 C Pulse Ra
== END 2021-01-16 15:10 | disposition home or self-care (01) | DRG 853 ==
LOC: ANHED 01-11 01:17 → ANHIMU 01-11 02:44 → ANH3MEDSUR 01-16 12:35 → ANHIMU 01-20 13:55
PROVIDERS: Internal Medicine; Internal Medicine Nephrology; Surgery; Admitting Provider Family Medicine; Emergency Provider Emergency Medicine; PCP Emergency Medicine; Visit Provider Family Medicine
PROC: 0Y6S0Z0 Detachment at Left 2nd Toe, Complete, Open Approach (ICD-10-PCS; principal; 2021-01-13 07:30)
DX: A41.9 Sepsis, unspecified organism (principal); I21.A1 Myocardial infarction type 2; J96.01 Acute respiratory failure with hypoxia; N18.6 End stage renal disease; J81.0 Acute pulmonary edema; E10.52 Type 1 diabetes mellitus with diabetic peripheral angiopathy with gangrene; I96 Gangrene, not elsewhere classified; I13.2 Hypertensive heart and chronic kidney disease with heart failure and with stage 5 chronic kidney disease, or end stage renal disease; I50.42 Chronic combined systolic (congestive) and diastolic (congestive) heart failure; E87.2 Acidosis; I42.9 Cardiomyopathy, unspecified; R65.20 Severe sepsis without septic shock; L03.032 Cellulitis of left toe; E10.22 Type 1 diabetes mellitus with diabetic chronic kidney disease; E10.43 Type 1 diabetes mellitus with diabetic autonomic (poly)neuropathy; K31.84 Gastroparesis; E10.42 Type 1 diabetes mellitus with diabetic polyneuropathy; E10.21 Type 1 diabetes mellitus with diabetic nephropathy; E10.319 Type 1 diabetes mellitus with unspecified diabetic retinopathy without macular edema; E10.628 Type 1 diabetes mellitus with other skin complications; D72.829 Elevated white blood cell count, unspecified; I16.0 Hypertensive urgency; F41.8 Other specified anxiety disorders; I25.10 Atherosclerotic heart disease of native coronary artery without angina pectoris; K21.9 Gastro-esophageal reflux disease without esophagitis; D63.1 Anemia in chronic kidney disease; E55.9 Vitamin D deficiency, unspecified; N40.0 Benign prostatic hyperplasia without lower urinary tract symptoms; G40.909 Epilepsy, unspecified, not intractable, without status epilepticus; N25.0 Renal osteodystrophy; F17.210 Nicotine dependence, cigarettes, uncomplicated; Z99.2 Dependence on renal dialysis; Z91.11 Patient's noncompliance with dietary regimen; Z95.5 Presence of coronary angioplasty implant and graft; I25.2 Old myocardial infarction; Z89.511 Acquired absence of right leg below knee; Z98.42 Cataract extraction status, left eye; Z98.41 Cataract extraction status, right eye; Z79.02 Long term (current) use of antithrombotics/antiplatelets
CPT/HCPCS: 36415; 36600; 71045; 73630; 73660; 78264; 80053; 80069; 80202; 82565; 82805; 82948; 83036; 83605; 83735; 83880; 84100; 84484; 85025; 85027; 85610; 85730; 86707; 87040; 87350; 88305; 88311; 93005; 93306; 93976; 94640; 94660; 99291; A9270; A9541; C9113; G0257; J0360; J0743; J1100; J1170; J1644; J1815; J1940; J2250; J2270; J2405; J2704; J3010; J3370; J7030; J7040; Q5106

== ENCOUNTER 2021-01-28 10:51 | Outpatient (RCR) | payer MEDICARE, MEDICAID, SELFPAY ==
--- NOTE | 2021-01-28 12:15 | WPDWOUNDNOTE ---
Wound Care Note Date/Time: 01/28/21 12:15 Pt seen and examined. Pt reports he still has significant pain in the L foot. Pt denies any drainage, reports redness, swelling is improved. Pt denies any f/c. Assessment and Plan Assessment and plan (1) Gangrene: Code(s): I96 - Gangrene, not elsewhere classified Status: Acute Assessment and Plan: cont local wound care, may still end up needing TMA, will refer to vascular surgery to see if able increase blood flow to LLE, encourage smoking cessation Review of Systems Review of Systems: All systems reviewed & are unremarkable except as noted in HPI and below Exam Const: General: cooperative, comfortable and no acute distress Nutritional Appearance: average body habitus Orientation/consciousness: patient oriented x3 Limitations: no limitations Extrem: Other: L foot wound - 2nd digit amp site sl dusky, no s/s drainage, active infection, exposed bone noted, 1st digit brown and dusky, overall cellulitis improved
[2021-01-28 14:07] VITALS: BMI 21.2
== END 2021-02-17 14:42 | disposition home or self-care (01) ==
LOC: ANHWOC 10:51
PROVIDERS: PCP Emergency Medicine; Visit Provider Surgery
DX: Z47.81 Encounter for orthopedic aftercare following surgical amputation (principal); Z89.422 Acquired absence of other left toe(s)
CPT/HCPCS: 99213; G0463

== ENCOUNTER 2021-01-29 20:25 | Emergency (ER) | payer MEDICARE, MEDICAID, SELFPAY ==
--- NOTE | ~2021-01-29 | XR_ITS ---
XR foot LT 2V DATE: 01/29/2021 21:23 INDICATION: Osteomyelitis. Second toe amputated one week ago. TECHNIQUE: AP and lateral views COMPARISON: 02/05/2021 left foot FINDINGS: There is amputation of all 3 phalanges of the second digit since 01/08/2021. Chronic fracture deformity of the middle phalanx of the third digit. There is diffuse osteopenia. There is extensive arterial calcification including metatarsal artery as well as digital artery calci fications, suggesting diabetes. No periosteal reaction or bone destruction is evident. IMPRESSION: Status post amputation of the second digit since 01/08/2021 Extensive arterial calcifications, likely due to diabetes Diffuse osteopenia Reviewed, dictated and finalized at location A.
[2021-01-29 20:29] VITALS: BP 142/59; PULSE 87; RESP 19; TEMP 36.7; O2SAT 99
--- NOTE | 2021-01-29 21:16 | ED.EXTPRO ---
HPI - Extremity Problem General Chief complaint: Extremity Problem,Nontraumatic <Iker Ramires MD - Last Filed: 01/30/21 00:40> Stated complaint: left foot pain <Iker Ramires MD - Last Filed: 01/30/21 00:40> Time Seen by Provider: 01/29/21 21:00 <Iker Ramires MD - Last Filed: 01/30/21 00:40> Source: patient <Iker Ramires MD - Last Filed: 01/30/21 00:40> Mode of arrival: ambulatory <Iker Ramires MD - Last Filed: 01/30/21 00:40> Limitations: no limitations <Iker Ramires MD - Last Filed: 01/30/21 00:40> History of Present Illness HPI Narrative: Patient is 55 years old white male status post left second toe amputation 2 weeks ago, subsequently patient developed pain at that area immediately after the surgery, was seen by his surgeon yesterday and was advised to follow-up with pain management physician. Patient denies any fever, chills, nausea, vomiting. Patient has dialysis today <Iker Ramires MD - Last Filed: 01/30/21 00:40> Related Data Home medications: Home Medications Medication Instructions Recorded Confirmed carvedilol 50 mg PO DAILY 02/05/20 01/11/21 furosemide 80 mg PO BID 02/05/20 01/11/21 aspirin 81 mg PO DAILY 07/02/20 01/11/21 Dang-Nilsa 1 tablet PO DAILY 07/23/20 01/11/21 albuterol sulfate 1 puff INHALATION QID 01/11/21 01/11/21 atorvastatin 80 mg PO HS 01/11/21 01/11/21 carvedilol 25 mg PO HS 01/11/21 01/11/21 desoximetasone 1 applic TOPICAL BID 01/11/21 01/11/21 diclofenac sodium 2 g TOPICAL TID 01/11/21 01/11/21 lorazepam 0.5 mg PO BID PRN 01/11/21 01/11/21 ropinirole 0.25 mg PO DIRECTED 01/11/21 01/11/21 sevelamer carbonate 800 mg PO TID 03/01/21 03/01/21 naltrexone 50 mg tablet 1.5 mg PO DAILY tablet 01/29/21 <Iker Ramires MD - Last Filed: 01/30/21 00:40> Allergies/Adverse reactions: Allergies Allergy/AdvReac Type Severity Reaction Status Date / Time scopolamine Allergy Severe Unresponsiv Verified 01/30/21 07:13 e <Iker Ramires MD - Last Filed: 01/30/21 00:40> Review of Systems Review of Systems: Narrative: CONSTITUTIONAL: Denies fever, chills, or sweats. EYES: Denies visual changes, redness, or discharge. ENT: Denies rhinorrhea, congestion, sore throat, or otalgia. CARDIOVASCULAR: Denies chest pain, palpitations, or edema. RESPIRATORY: Denies cough or dyspnea. GASTROINTESTINAL: Denies abdominal pain, nausea, vomiting, or diarrhea. GENITOURINARY: Denies dysuria or hematuria. SKIN: Denies rash or itching. MUSCULOSKELETAL: Denies back pain, joint pain, or myalgia. NEUROLOGIC: Denies headache, numbness, or weakness. PSYCHIATRIC: Denies anxiety or depression. <Iker Ramires MD - Last Filed: 01/30/21 00:40> [facility] Past Medical History Medical History: Medical History Anxiety Benign prostatic hyperplasia Bradycardic cardiac arrest (~07/23/20) In the setting of severe hyperkalemia, acute pulmonary edema, and respiratory failure Chronic anemia Congestive heart failure Echocardiogram in August 2020 showed a mildly enlarged left ventricular chamber, severely reduced left ventricular systolic function with an estimated ejection fraction of 25 to 30%, moderately increased LV wall thickness, grade 2 diastolic dysfunction, severe aortic valve sclerosis, mild mitral, tricuspid, and pulmonic valve regurgitation, mild pulmonary hypertension with an estimated arterial pressure 43 mmHg, and areas of hypokinesis including the apex, inferior wall, anterior wall, inferoseptal wall, anterolateral wall, and anteroseptal wall. Coronary artery disease With non STEMI in December 2019, with stent placed to the LAD. Depression with anxiety End-stage renal disease on hemodialysis Gastric ulcer On endoscopy per Dr. Pacheco in June 2020. Gastroesophageal reflux disease Hypertension Hypertension Renal osteodystrophy Seizure Secondary to hypoglycemia. ST elevation myocardial infarction (
[2021-01-29 22:13] LABS: Basophils Absolute Auto 0.1 K/mm3 (0.0-0.1); Basophils Percent Auto 0.5 % (0.2-1.2); Eosinophils Absolute Auto 0.1 K/mm3 (0-0.3); Eosinophils Percent Auto 0.8 % (0-4.4); Hematocrit 29.3 % (42.0-52.0); Hemoglobin 9.5 g/dL (14.0-18.0); Immature Granulocyte Absolute 0.06 K/mm3 (0.00-0.031); Immature Granulocyte Percent A 0.5 % (0-0.5); Lymphocytes Percent Auto 8.3 % (18.3-44.2); Mean Corpuscular HGB Conc 32.4 g/dl (32-36); Mean Corpuscular Hemoglobin 29.7 pg (26-34); Mean Corpuscular Volume 91.6 fl (80-100); Mean Platelet Volume 9.8 fl (7.4-10.4); Monocytes Absolute Auto 0.9 K/mm3 (0.1-0.6); Monocytes Percent Auto 7.1 % (2.6-8.5); Neutrophils Absolute Auto 9.9 K/mm3 (1.3-6.7); Neutrophils Percent Auto 82.8 % (45.5-73.1); Platelet Count Result 556 k/mm3 (150-375)
[2021-01-29 22:30] LABS: Alanine Aminotransferase 12 U/L (4-50); Albumin Level 3.6 g/dL (3.5-5.1); Alkaline Phosphatase 109 U/L (38-126); Anion Gap 9 mmol/L (8-16); Aspartate Amino Transferase 23 U/L (17-59); Bilirubin,Total 0.4 mg/dL (0.2-1.3); Blood Urea Nitrogen 33 mg/dL (9-20); Calcium 7.9 mg/dL (8.4-10.2); Carbon Dioxide 31 mmol/L (22-30); Chloride 95 mmol/L (98-107); Estimated CRCL calculation 14 ml/min; Estimated Glomerular Filt Rate 12; Glucose 433 mg/dL (75-110); Sodium 135 mmol/L (137-145)
[2021-01-29 22:38] LABS: CRP 14.3 mg/dL (<1.0)
[2021-01-29 22:54] VITALS: BP 139/60; PULSE 77; RESP 18; O2SAT 98
[2021-01-29] MEDS: MORPHINE SULFATE (*CRX) 4 MG/ML INJ IV PUSH (23:06)
[2021-01-29] MEDS: ONDANSETRON INJ 4 MG/2 ML VIAL IV PUSH (23:06)
[2021-01-30] MEDS: HYDROmorphone HCL INJ (*CRX) 1 MG/ML SYR 0.5 MG IV PUSH ×4 (00:28→13:33)
[2021-01-30] MEDS: INSULIN HUMAN REGULAR (*BKC) 100 UNITS/ML 8 UNITS SUB-Q (00:48)
[2021-01-30] MEDS: SODIUM CHLORIDE 0.9% IV 1,000 ML 999 ML IV CONT (01:39)
[2021-01-30 01:49] VITALS: BP 160/63; PULSE 88; RESP 18; O2SAT 94
[2021-01-30 03:06] LABS: Glucose Point of Care 185 (65-105)
--- NOTE | 2021-01-30 06:08 | PC.NURSE ---
SPOKE WITH [facility] PATIENT ACCESS, STILL ON WAITLIST, NO BEDS AVAILABLE AT THIS TIME.
[2021-01-30 06:20] VITALS: BP 168/76; PULSE 80; RESP 18; O2SAT 93
[2021-01-30 07:18] VITALS: BP 186/84; PULSE 83; RESP 18; O2SAT 95
[2021-01-30] MEDS: ONDANSETRON INJ 4 MG/2 ML VIAL IV PUSH (07:18)
[2021-01-30 07:23] LABS: Glucose Point of Care 98 (65-105)
[2021-01-30 08:01] VITALS: BP 177/80; PULSE 80; RESP 18; O2SAT 95
[2021-01-30 09:20] VITALS: TEMP 36.7
[2021-01-30 11:24] LABS: Glucose Point of Care 245 (65-105)
--- NOTE | 2021-01-30 12:47 | PC.NURSE ---
[facility] Called to report that [facility] are no [facility] available at this time, will call back with updates
[2021-01-30 12:58] VITALS: BP 189/78; PULSE 89; RESP 18; O2SAT 95
[2021-01-30] MEDS: INSULIN HUMAN REGULAR (*BKC) 100 UNITS/ML SUB-Q (13:05)
== END 2021-01-30 13:39 | disposition short-term general hospital (02) ==
PROVIDERS: Emergency Medicine; Emergency Provider Emergency Medicine; PCP Emergency Medicine
DX: E10.52 Type 1 diabetes mellitus with diabetic peripheral angiopathy with gangrene (principal); I96 Gangrene, not elsewhere classified; Z89.422 Acquired absence of other left toe(s); N40.0 Benign prostatic hyperplasia without lower urinary tract symptoms; I50.9 Heart failure, unspecified; I25.10 Atherosclerotic heart disease of native coronary artery without angina pectoris; E10.22 Type 1 diabetes mellitus with diabetic chronic kidney disease; I13.2 Hypertensive heart and chronic kidney disease with heart failure and with stage 5 chronic kidney disease, or end stage renal disease; F17.210 Nicotine dependence, cigarettes, uncomplicated; N18.6 End stage renal disease; Z99.2 Dependence on renal dialysis; E10.21 Type 1 diabetes mellitus with diabetic nephropathy; E10.319 Type 1 diabetes mellitus with unspecified diabetic retinopathy without macular edema; E10.40 Type 1 diabetes mellitus with diabetic neuropathy, unspecified; K21.9 Gastro-esophageal reflux disease without esophagitis; N25.0 Renal osteodystrophy; I25.2 Old myocardial infarction; E55.9 Vitamin D deficiency, unspecified; Z95.5 Presence of coronary angioplasty implant and graft; Z89.511 Acquired absence of right leg below knee; Z98.49 Cataract extraction status, unspecified eye; M85.872 Other specified disorders of bone density and structure, left ankle and foot
CPT/HCPCS: 36415; 73620; 80053; 82948; 83605; 85025; 86140; 87040; 96361; 96365; 96367; 96375; 96376; 99285; J0743; J1170; J1815; J2270; J2405; J3370; J7030

== ENCOUNTER → 2021-02-14 18:53 | Emergency (ER) | payer MEDICARE, MEDICAID, SELFPAY ==
[2021-02-14 18:57] VITALS: BP 137/52; PULSE 86; RESP 20; TEMP 36.8; O2SAT 99
--- NOTE | 2021-02-14 21:00 | PC.NURSE ---
came to the desk and told staff that he was going to leave, that he did not need to be seen. pt agreeable to return if need be. picked up the pt
== END | disposition left against medical advice (07) ==
PROVIDERS: PCP Emergency Medicine
DX: Z53.21 Procedure and treatment not carried out due to patient leaving prior to being seen by health care provider (principal)
CPT/HCPCS: 99199; A9270

== ENCOUNTER 2021-02-15 07:34 | Inpatient (IN) | payer MEDICARE, MEDICAID, SELFPAY ==
[2021-02-15] VITALS (51 sets, daily range): BP systolic 96–255; BP diastolic 51–128; PULSE 63–129; RESP 18–33; TEMP 35.7–36.9; O2SAT 98–100; BMI 21.0
--- NOTE | ~2021-02-15 | XR_ITS ---
EXAMINATION: XR abdomen NG/feed tube insert DATE: 02/17/2021 06:41 INDICATION: Nasogastric tube placement. TECHNIQUE: A semiupright view of the abdomen was obtained. COMPARISON: Abdomen radiograph 02/15/2021 FINDINGS: The lower abdomen is excluded. The nasogastric tube tip is in the stomach with proximal rosi e port at the gastroesophageal junction. There are changes of posterior fusion procedure in lumbar sp ine. A bone stimulator overlies the lumbar spine. IMPRESSION: 1. Nasogastric tube tip in the stomach with proximal side port at the gastroesophageal junction. Adva ncement 4 cm is recommended. Reviewed, dictated and finalized at location A. IMPRESSION: 1. Nasogastric tube tip in the stomach with proximal side port at the gastroeso phageal junction. Advancement 4 cm is recommended.
--- NOTE | ~2021-02-15 | XR_ITS ---
EXAMINATION: XR chest ET placement DATE: 02/17/2021 06:41 INDICATION: Intubation. TECHNIQUE: A single frontal view of the chest was obtained. COMPARISON: Chest single view at 6:03 AM FINDINGS: There is a diffuse interstitial pattern in the lungs. There are airspace opacities in the p erihilar regions. No pleural effusion or pneumothorax. The heart size is normal. The endotracheal tub e tip is 4.9 cm above the luciano. The nasogastric tube tip is beyond the inferior margin of the radio graph, but at least to the stomach. IMPRESSION: 1. Stable diffuse lung disease, likely moderate pulmonary edema. Reviewed, dictated and finalized at location A.
--- NOTE | ~2021-02-15 | XR_ITS ---
EXAMINATION: XR chest 1V portable DATE: 02/17/2021 06:40 INDICATION: Respiratory distress. TECHNIQUE: A single frontal view of the chest was obtained. COMPARISON: Chest single view at 5:15 AM FINDINGS: There is a diffuse interstitial pattern in the lungs. There are airspace opacities in the p erihilar regions. No pleural effusion or pneumothorax. The heart size is normal. IMPRESSION: 1. Stable diffuse lung disease, likely moderate pulmonary edema. Reviewed, dictated and finalized at location A.
--- NOTE | ~2021-02-15 | XR_ITS ---
EXAMINATION: XR abdomen NG/feed tube insert EXAM DATE: 02/15/2021 11:31 INDICATION: NG tube placement . TECHNIQUE: Frontal projection(s) of the abdomen for interpretation. Comparison is made to prior exami nation from 09/14/2020. FINDINGS: Feeding tube tip and side-port project below the left hemidiaphragm, adequate. There is non obstructive upper abdominal bowel gas pattern. Lumbar fusion hardware, laminectomies, spine stimulato r. Some bony degenerative changes. IMPRESSION: 1. Feeding tube in position. Reviewed, dictated and finalized at location A.
--- NOTE | ~2021-02-15 | XR_ITS ---
EXAMINATION: XR chest 1V portable DATE: 02/16/2021 05:27 INDICATION: Acute respiratory failure. TECHNIQUE: A single frontal view of the chest was obtained. COMPARISON: Chest single view 02/15/2021, CT abdomen and pelvis 07/20/2020 FINDINGS: There are airspace opacities in the lower lung zones, right worse than left. No pleural eff usion or pneumothorax. The heart size is normal. The nasogastric tube tip is in the stomach. The endo tracheal tube tip is 7.4 cm above the luciano. IMPRESSION: 1. Airspace opacities in the lower lung zones with interval change in distribution, consistent with a telectasis versus pneumonia. Reviewed, dictated and finalized at location A. IMPRESSION: 1. Airspace opacities in the lower lung zones with interval change in distribut ion, consistent with atelectasis versus pneumonia.
--- NOTE | ~2021-02-15 | XR_ITS ---
EXAMINATION: XR chest 1V portable DATE: 02/19/2021 05:38 INDICATION: Acute respiratory failure. TECHNIQUE: A single frontal view of the chest was obtained. COMPARISON: Chest single view 02/18/2021 FINDINGS: There is mild atelectasis at left lung base. No pleural effusion or pneumothorax. The heart size is normal. IMPRESSION: 1. Mild atelectasis at left lung base. Reviewed, dictated and finalized at location A.
--- NOTE | ~2021-02-15 | XR_ITS ---
EXAMINATION: XR chest 1V portable DATE: 02/17/2021 05:19 INDICATION: Acute respiratory failure. TECHNIQUE: A single frontal view of the chest was obtained. COMPARISON: Chest single view 02/16/2021 FINDINGS: There is a diffuse interstitial pattern in the lungs. There are airspace opacities in the p erihilar regions bilaterally. No pleural effusion or pneumothorax. The heart size is normal. IMPRESSION: 1. Diffuse lung disease with worsening on the left, likely moderate pulmonary edema. Reviewed, dictated and finalized at location A. IMPRESSION: 1. Diffuse lung disease with worsening on the left, likely moderate pulmonary e robbi.
--- NOTE | ~2021-02-15 | XR_ITS ---
EXAMINATION: XR chest 1V portable DATE: 02/18/2021 05:30 INDICATION: Acute respiratory failure. TECHNIQUE: A single frontal view of the chest was obtained. COMPARISON: Chest single view 02/17/2021 FINDINGS: There are airspace opacities in the lower lung zones. Marilee B lines are noted, consistent with mild pulmonary edema. No pleural effusion or pneumothorax. The heart size is normal. The endotra cheal tube tip is 4.6 cm above the luciano. The nasogastric tube tip is in the stomach. IMPRESSION: 1. Improved mild pulmonary edema. 2. Worsened airspace opacities in the lower lung zones, consistent with atelectasis versus pneumonia. Reviewed, dictated and finalized at location A. IMPRESSION: 1. Improved mild pulmonary edema. 2. Worsened airspace opacities in the lower lung zones, consistent with atelect asis versus pneumonia.
--- NOTE | ~2021-02-15 | XR_ITS ---
EXAMINATION: XR chest 1V portable EXAM DATE: 02/20/2021 05:45 INDICATION: Acute respiratory failure. TECHNIQUE: Portable AP frontal chest x-ray was obtained. Comparison is made to prior examination from 02/19/2021. FINDINGS: The lungs are clear. There are no pleural effusions. Cardiomediastinal silhouette is norm al. There is no pneumothorax suspected. The bones and soft tissues are unremarkable. Mild chronic hyperinflation. IMPRESSION: No acute cardiopulmonary findings. Reviewed, dictated and finalized at location A.
--- NOTE | ~2021-02-15 | XR_ITS ---
EXAMINATION: XR chest ET placement DATE: 02/15/2021 08:02 INDICATION: Intubation. TECHNIQUE: A single frontal view of the chest was obtained on 2 radiographs. COMPARISON: Chest single view 01/11/2021, CT abdomen and pelvis 07/20/2020 FINDINGS: There is a diffuse interstitial pattern in the lungs. There are airspace opacities in the r ight perihilar region and left midlung zone. No pleural effusion or pneumothorax. The heart size is n ormal. The endotracheal tube tip is 6.6 cm above the luciano. IMPRESSION: 1. Worsened diffuse lung disease, likely moderate pulmonary edema. Superimposed pneumonia cannot be e xcluded. Reviewed, dictated and finalized at location A. IMPRESSION: 1. Worsened diffuse lung disease, likely moderate pulmonary edema. Superimposed pneumonia cannot be excluded.
--- NOTE | 2021-02-15 07:36 | ECG_ITS ---
Measurements Intervals [place] Rate: 114 P: 65 [place]: 153 QRS: 73 QRSD: 90 T: 92 QT: 298 QTc: 410 Interpretive Statements SINUS TACHYCARDIA POSSIBLE LEFT ATRIAL ENLARGEMENT ST-T WAVE ABNORMALITY IN INF/LAT LEADS- CONSIDER ISCHEMIA BASELINE WANDER- II, III ABNORMAL ECG ABNORMAL ECG Electronically Signed On 02-15-2021 10:48:52 CDT by Edmond Elias D.O.
--- NOTE | 2021-02-15 07:42 | PC.NURSE ---
0742: 20 mg Etomidate given 0743: 100 mg Succinylcholine given Pt intubated by Dr. Beauchamp at 0744 with 7.5 tube, 24 at the lip
[2021-02-15] MEDS: NITROGLYCERIN OINTMENT 1 INCH DOSE TRANSDERM (07:47)
--- NOTE | 2021-02-15 08:00 | PC.NURSE ---
Per , pt had alot of liquid intake yesterday. Pt was here yesterday but left before he was seen. states pt BS was high yesterday and he did not take his insulin this morning.
[2021-02-15 08:05] LABS: Basophils Absolute Auto 0.1 K/mm3 (0.0-0.1); Basophils Percent Auto 0.4 % (0.2-1.2); Eosinophils Absolute Auto 0.3 K/mm3 (0-0.3); Hematocrit 29.9 % (42.0-52.0); Hemoglobin 9.2 g/dL (14.0-18.0); Immature Granulocyte Absolute 0.17 K/mm3 (0.00-0.031); Immature Granulocyte Percent A 0.7 % (0-0.5); Lymphocytes Absolute Auto 3.15 K/mm3 (0.9-3.2); Lymphocytes Percent Auto 12.9 % (18.3-44.2); Mean Corpuscular HGB Conc 30.8 g/dl (32-36); Mean Corpuscular Hemoglobin 29.8 pg (26-34); Mean Corpuscular Volume 96.8 fl (80-100); Mean Platelet Volume 10.2 fl (7.4-10.4); Monocytes Absolute Auto 1.5 K/mm3 (0.1-0.6); Monocytes Percent Auto 6.1 % (2.6-8.5); Neutrophils Absolute Auto 19.3 K/mm3 (1.3-6.7); Neutrophils Percent Auto 78.9 % (45.5-73.1); Platelet Count Result 571 k/mm3 (150-375); Red Blood Count 3.09 M/mm3 (4.6-6.20); Red Cell Distribution Width 17.8 % (11.5-14.5); White Blood Count 24.5 K/mm3 (4.5-10.0)
[2021-02-15] MEDS: FUROSEMIDE INJ 100 MG/10 ML VIAL 80 MG IV PUSH (08:05)
[2021-02-15] MEDS: PROPOFOL IV EMULSION 200 MG/20 ML VIAL 60 MG IV PUSH (08:12)
[2021-02-15] MEDS: PROPOFOL IV EMULSION 100 ML 1.89 MG IV CONT (08:14)
[2021-02-15 08:15] LABS: Prothrombin Time 14.1 Seconds (11.1-14.7)
[2021-02-15 08:16] LABS: Partial Thromboplastin Time 48.9 SECONDS (22.3-36.8)
[2021-02-15 08:19] LABS: Anion Gap 21 mmol/L (8-16); Blood Urea Nitrogen 61 mg/dL (9-20); Calcium 9.1 mg/dL (8.4-10.2); Carbon Dioxide 18 mmol/L (22-30); Chloride 90 mmol/L (98-107); Estimated CRCL calculation 8 ml/min; Estimated Glomerular Filt Rate 7; Potassium 5.4 mmol/L (3.4-5.0); Sodium 129 mmol/L (137-145)
[2021-02-15 08:19] LABS: Lactic Acid Reflex 4.6 mmol/L (0.7-2.1)
[2021-02-15] MEDS: RAPID SEQUENCE INTUBATION KIT 1 EACH (08:20)
[2021-02-15 08:22] LABS: Glucose Point of Care > 500 (65-105)
--- NOTE | 2021-02-15 08:24 | PC.NURSE ---
Pt bucking at the tube and thrashing. notified. [facility] for 40mg propofol IVP
--- NOTE | 2021-02-15 08:24 | ED.SOB ---
HPI - SOB/Dyspnea General Chief Complaint: Shortness of Breath/Dyspnea Stated Complaint: resp distress Time Seen by Provider: 02/15/21 07:36 History of Present Illness HPI Narrative: Patient is a 55-year-old male who presents to the ER with respiratory failure/distress. Patient with history of CHF and end-stage renal disease. Recently had left midfoot amputation at [facility]. According to patient was drinking alcohol all day yesterday. Unknown when his last dialysis was. Patient unable to provide history due to clinical state. Related Data Home Medications Medication Instructions Recorded Confirmed carvedilol 50 mg PO TID 02/05/20 01/11/21 furosemide 80 mg PO BID 02/05/20 01/11/21 aspirin 81 mg PO DAILY 07/02/20 01/11/21 Dang-Nilsa 1 tablet PO DAILY 07/23/20 01/11/21 albuterol sulfate 1 puff INHALATION QID 01/11/21 01/11/21 atorvastatin 80 mg PO HS 01/11/21 01/11/21 lorazepam 1 mg PO BID PRN 01/11/21 01/11/21 ropinirole 0.25 mg PO DIRECTED 01/11/21 01/11/21 naltrexone 50 mg tablet 1.5 mg PO DAILY tablet 01/29/21 amlodipine 02/15/21 02/15/21 gabapentin 02/15/21 vitamin B complex [B 1 tablet PO DAILY 02/15/21 02/15/21 Complex-Vitamin B12] Allergies Allergy/AdvReac Type Severity Reaction Status Date / Time scopolamine Allergy Severe Unresponsiv Verified 02/15/21 09:35 e Review of Systems Review of Systems: ROS unobtainable: Yes unobtainable due to medical condition [facility] Past Medical History Medical History (Updated 02/15/21 @ 10:49 by Vivek Sears MD) Amputation of left midfoot Anxiety Benign prostatic hyperplasia Bradycardic cardiac arrest (~07/23/20) In the setting of severe hyperkalemia, acute pulmonary edema, and respiratory failure Chronic anemia Congestive heart failure Echocardiogram in August 2020 showed a mildly enlarged left ventricular chamber, severely reduced left ventricular systolic function with an estimated ejection fraction of 25 to 30%, moderately increased LV wall thickness, grade 2 diastolic dysfunction, severe aortic valve sclerosis, mild mitral, tricuspid, and pulmonic valve regurgitation, mild pulmonary hypertension with an estimated arterial pressure 43 mmHg, and areas of hypokinesis including the apex, inferior wall, anterior wall, inferoseptal wall, anterolateral wall, and anteroseptal wall. Coronary artery disease With non STEMI in December 2019, with stent placed to the LAD. Depression with anxiety End-stage renal disease on hemodialysis Gastric ulcer On endoscopy per Dr. Pacheco in June 2020. Gastroesophageal reflux disease Hypertension Hypertension Renal osteodystrophy Seizure Secondary to hypoglycemia. ST elevation myocardial infarction (STEMI) (~06/26/20) Secondary to abrupt stent thrombosis of the LAD. Tobacco dependence Type 1 diabetes mellitus Diagnosed at the age of 10. Complicated by retinopathy, nephropathy, and neuropathy. Hemoglobin A1c was 7.6% in July 2020. Vitamin D deficiency disease Surgical History Surgical History History of endoscopy (~06/27/20) History of heart artery stent Stent in the LAD in December 2019. Patient had abrupt stent thrombosis of the previously placed stent to the LAD on June 26, 2020 left coronary with extraction thrombectomy and stenting distal to the original stent with upsizing of the original stent. History of right below knee amputation History of spinal surgery Neurostimulator in place. Status post below knee amputation of right lower extremity (~12/02/19) Performed [facility]. Status post cataract extraction Status post creation of arteriovenous fistula Left upper extremity. Status post hemorrhoidectomy Family History Family History Father Hypertension Sibling Multiple myeloma Hypertension Mother Acute myelogenous leukemia Heart disease Social History S
[2021-02-15] MEDS: INSULIN HUMAN REGULAR (*BKC) 100 UNITS/ML 10 UNITS IV PUSH ×2 (08:27→12:39)
[2021-02-15 08:30] LABS: NT Pro B Type Natriuretic Pept > 35000 PG/ML (5-100)
[2021-02-15 08:31] LABS: Alveolar/Arterial O2 Gradient 314.9 mmHg; Base Excess ABG -7.5 mEq/l (+/-2.0); Carboxyhemoglobin 2.1 % THb (0-2.0); Fractional Inspired Oxygen 100 %; Methemoglobin ABG 0.3 %THb (0-1.5); Oxygen Content ABG 12.2 %vol (16.0-22.0); Oxygen Saturation ABG 99.7 % (95.0-100.0); Oxyhemoglobin 97.4 % THb (90.0-100.0); PCO2 ABG 43.2 mmHg (35.0-45.0); PO2 ABG 354.9 mmHg (80.0-100.0); PO2 FiO2 Ratio Arterial Blood 3.55 %; Reduced Hemoglobin 0.2 %THb (0-5.0); Total Hemoglobin 8.2 g/dL (12.0-18.0)
[2021-02-15 08:33] LABS: Device VENTILATOR; Modified Allen's Test Pass; Site Drawn RIGHT RADIAL
[2021-02-15 08:34] LABS: Arterial Blood Gas PEEP 5 cmH2O; Arterial Blood Gas Tidal Volume 450 ml; Arterial Blood Gas Vent Mode CMV; Arterial Blood Gas Ventilator rate 18 /MIN
[2021-02-15 08:38] LABS: Glucose 650 mg/dL (75-110)
--- NOTE | 2021-02-15 08:47 | PC.NURSE ---
Pt still thrashing and bucking at tube. notified. VORB 2 mg versed
[2021-02-15] MEDS: MIDAZOLAM 100MG/NS 100ML(*CRX) 100 MG/100 ML BAG IV CONT (09:10)
[2021-02-15 09:55] LABS: pH ABG 7.262 (7.350-7.450)
[2021-02-15 10:13] LABS: Glucose Point of Care > 500 (65-105)
[2021-02-15 11:03] LABS: Reflex Lactic Acid Yes or No Add Lactic
--- NOTE | 2021-02-15 11:20 | ADMGEN ---
This patient, Ish Corley, was admitted to Intensive Care Unit-2. Patient/family oriented to hospital policies and general routines including ID bracelet, bed and alarms, visiting hours, pain management, procedures, bathroom and other care routines, personal items, smoking policy, room service/diet, and visiting hours. Information on how to activate the Rapid Response Team has been discussed. Patient/Family are encouraged to report perceived risks to care and to ask questions if they do not understand what they are told or what they should do.
--- NOTE | 2021-02-15 11:27 | WPDCNINT ---
Assessment and Plan Assessment and plan (1) Acute respiratory failure: Code(s): J96.00 - Acute respiratory failure, unspecified whether with hypoxia or hypercapnia Status: Acute Assessment and Plan: Acute Respiratory failure secondary to pulmonary edema due to noncompliance with dialysis and other medication regimen. Although patient does have elevated white count, chest x-ray suggest pulmonary edema. He has history of similar presentation why many times in the past. Nephrology has been consulted. His being dialyzed now in the room. Continue mechanical ventilation with current settings. Wean FiO2 and PEEP if tolerated. Follow chest x-ray and ABG. Low tidal volume ventilation strategy to prevent volutrauma Will attempt SBT when ready to wean. Continue bronchodilator. (2) Diabetic foot infection: Code(s): E11.628 - Type 2 diabetes mellitus with other skin complications; L08.9 - Local infection of the skin and subcutaneous tissue, unspecified Status: Acute Assessment and Plan: Will start him empirically on Zosyn and vancomycin. Surgery has been consulted. Cultures have been sent from emergency department which will be followed up. (3) CHF exacerbation: Code(s): I50.9 - Heart failure, unspecified Status: Acute Assessment and Plan: He is being dialyzed today. Strict intake output record and daily weight. Continue his cardiac regimen with aspirin Lipitor and Brilinta. Continue carvedilol. Hold of amlodipine for now. (4) Metabolic acidosis: Code(s): E87.2 - Acidosis Status: Chronic Assessment and Plan: Likely combination of end-stage renal disease not compliant with dialysis regimen and lactic acidosis. Continue to monitor ABG. (5) Lactic acidosis: Code(s): E87.2 - Acidosis Status: Acute Assessment and Plan: Continue to monitor lactic acid until it resolved. (6) ESRD (end stage renal disease) on dialysis: Code(s): N18.6 - End stage renal disease; Z99.2 - Dependence on renal dialysis Status: Chronic Assessment and Plan: Nephrology has been consulted. Dialysis as per nephrology service. (7) IDDM (insulin dependent diabetes mellitus): Status: Chronic Assessment and Plan: Continue Lantus and insulin sliding scale. Additional Plan DVT prophylaxis - SCDs Stress ulcer prophylaxis -Pepcid Nutrition - NPO Code Status - Full Code Critical Care Time -32 minutes Due to a high probability of clinically significant, life threatening deterioration, the patient required my highest level of preparedness to intervene emergently and I personally spent this critical care time directly and personally managing the patient. This critical care time included obtaining a history; examining the patient; pulse oximetry; ordering and review of studies; arranging urgent treatment with development of a management plan; evaluation of patient's response to treatment; frequent reassessment; and discussions with other providers. It was exclusive of separately billable procedures and treating other patients and teaching time. Please see Assessment and Plan section and the rest of the note for further information on patient assessment and treatment. Sum[employer] Wrest[employer] Consult Note Consult date: 02/15/21 Time Seen: 12:33 HPI: Ish Corley is a 55 year old male with past medical history of end-stage renal disease on hemodialysis, CAD, anxiety/depression, BPH, GERD, hypertension, seizure disorder, history of alcohol abuse and peripheral vascular disease to the emergency department with shortness of breath and respiratory distress. He was on BiPAP at the time of presentation to emergency department started by EMS. He was obtunded and was intubated in the emergency department at the time of arrival. He is very well known to hospital staff here. He is very noncompliant to his medication regimen including dialysis. I
--- NOTE | 2021-02-15 11:33 | PM.CNNEP ---
Assessment and Plan Assessment and plan (1) End stage kidney disease: Code(s): N18.6 - End stage renal disease Status: Acute Assessment and Plan: Ish has end-stage renal disease. He is due for dialysis today. His chest x-ray shows pulmonary edema. He was drinking a lot of alcohol yesterday which means he probably was also drinking a lot of water. His low sodium is also suggestive of him drinking a lot of water but not eating much food. He will get dialysis today and will remove fluid as tolerated. His blood pressure is not very good right now. This may be due to intubation with decreased venous return, or sedatives, or possibly sepsis? I asked the dialysis nurse to take no fluid off for the 2hour and if he tolerates the treatment we can increase his ultrafiltration. We will eventually need to get this fluid off. He will use albumin for to help as well. (2) Acute respiratory failure: Code(s): J96.00 - Acute respiratory failure, unspecified whether with hypoxia or hypercapnia Status: Acute Assessment and Plan: Likely due to fluid overload. Will retry to remove fluid as tolerated sometimes he gets increased afterload due to his severe hypertension and getting his blood pressure down can clear his lungs as well. (3) Diabetic foot infection: Code(s): E11.628 - Type 2 diabetes mellitus with other skin complications; L08.9 - Local infection of the skin and subcutaneous tissue, unspecified Status: Acute Assessment and Plan: The patient has poor wound healing from his transmetatarsal amputation. Surgery is going to be consulted. (4) CHF exacerbation: Code(s): I50.9 - Heart failure, unspecified Status: Acute Assessment and Plan: Most likely from his hypertension and fluid intake. (5) Hyperkalemia: Code(s): E87.5 - Hyperkalemia Status: Acute Assessment and Plan: His potassium is mildly high. Will use a 2 K bath. (6) Diabetes mellitus: Code(s): E11.9 - Type 2 diabetes mellitus without complications Status: Acute Assessment and Plan: On Accu-Cheks and sliding-scale insulin (7) Hypertension: Qualifiers: Hypertension type: unspecified Qualified Code(s): I10 - Essential (primary) hypertension Code(s): I10 - Essential (primary) hypertension Status: Chronic Assessment and Plan: blood pressure was high when he got here. Likely due to fluid. (8) Smoking: Code(s): F17.200 - Nicotine dependence, unspecified, uncomplicated Status: Acute Assessment and Plan: He continues to smoke we have talked many times about trying to quit. History of Present Illness Reason for Consult Consult date: 02/15/21 Chief Complaint Chief complaint: respiratory failure/ esrd with volume overload/mid History of Present Illness Narrative: Ish is a very pleasant 55-year-old gentleman who has multiple medical problems including end-stage renal disease on dialysis 3 times a week, peripheral vascular disease status post right [id number] amputation and left transmetatarsal amputation more recently. The madeleine are still in the left metatarsal amputation site and there is considerable black eschar over /Around the wound. he also has diabetes, renal osteodystrophy with chronically high phosphorus levels, hypertension, congestive heart failure, anxiety, depression, coronary disease, seizure. He went to dialysis on Monday and apparently had a reasonably good treatment. His blood pressure was a little bit on the high side. He did not have any fluid on, and in fact he left below his dry weight. Apparently Monday he was drinking alcoholic beverages all day long and last night he became short of breath. He came to the emergency room. Chest x-ray showed pulmonary edema. He was intubated. His blood pressure was high when he 1st got here however since being intub
--- NOTE | 2021-02-15 11:59 | PM.EVENT ---
Event Note Event Note Event Note: On HD. just starting. BP now 121. will see how he does with fluid removal today. seen at 11:56am
[2021-02-15] MEDS: FENTANYL 2,500MCG/NS250ML(*CRX 2,500 MCG/250 ML BAG IV CONT (12:39)
[2021-02-15 12:45] LABS: Glucose Point of Care 445 (65-105)
[2021-02-15] MEDS: FOLIC ACID 1 MG/0.2 ML INJ IV PUSH (12:51)
[2021-02-15] MEDS: TICAGRELOR 90 MG TABLET PO ×2 (12:51→21:43)
[2021-02-15] MEDS: HEPARIN SODIUM 5,000 UNITS/ML VIAL 5000 UNITS SUB-Q (12:51)
[2021-02-15] MEDS: ASPIRIN 81 MG ENTERIC TABLET PO (12:51)
[2021-02-15] MEDS: THIAMINE HCL 200 MG/2 ML VIAL 100 MG IV PUSH (12:52)
[2021-02-15 12:57] LABS: Lactic Acid 1.4 mmol/L (0.7-2.1)
--- NOTE | 2021-02-15 13:00 | PM.IMHP ---
H&P: HPI History of Present Illness Date/Time: 02/15/21 13:00 Chief Complaint: Shortness of breath. Narrative: This is a chronically ill 55-year-old male smoker with multiple medical problems including history of noncompliance, end-stage renal disease on hemodialysis, congestive heart failure, coronary artery disease, peripheral vascular disease, hypertension, type 1 diabetes mellitus, and several other comorbidities who presented to the emergency department earlier today via EMS from home with complaints of severe shortness of breath. He is well known to this hospital with frequent ER visits and multiple readmissions for malignant hypertension and respiratory failure due to flash pulmonary edema requiring intubation. At the time my evaluation he is sedated and intubated and is unable to provide any history. According to the triage note, he developed acute shortness of breath this morning, was hypoxic on EMS arrival, and was intubated shortly after arrival to the ER as he apparently was in quite a bit of distress despite being BiPAP. He does have a history of noncompliance and his does not recall when he last went to dialysis. She also remarks that the patient had been drinking quite a bit of alcohol yesterday. He is being admitted with acute respiratory failure due to pulmonary edema and markedly elevated blood pressures, which have improved with nitro paste and propofol infusion. It should be noted that the patient is status post left forefoot amputation on 02/04/2021 done at [facility] due to a gangrenous diabetic wound. Review of Systems Review of Systems: Narrative: Unable to be obtained as patient is sedated and intubated. [facility] Past Medical History Medical History (Updated 02/15/21 @ 21:25 by Anai Balderas PA-C) Anxiety Benign prostatic hyperplasia Bradycardic cardiac arrest (~07/23/20) In the setting of severe hyperkalemia, acute pulmonary edema, and respiratory failure Chronic anemia Congestive heart failure Echocardiogram in August 2020 showed a mildly enlarged left ventricular chamber, severely reduced left ventricular systolic function with an estimated ejection fraction of 25 to 30%, moderately increased LV wall thickness, grade 2 diastolic dysfunction, severe aortic valve sclerosis, mild mitral, tricuspid, and pulmonic valve regurgitation, mild pulmonary hypertension with an estimated arterial pressure 43 mmHg, and areas of hypokinesis including the apex, inferior wall, anterior wall, inferoseptal wall, anterolateral wall, and anteroseptal wall. Coronary artery disease With non STEMI in December 2019, with stent placed to the LAD. Depression with anxiety End-stage renal disease on hemodialysis Gastric ulcer On endoscopy per Dr. Pacheco in June 2020. Gastroesophageal reflux disease Hypertension Noncompliance Renal osteodystrophy Seizure Secondary to hypoglycemia. ST elevation myocardial infarction (STEMI) (~06/26/20) Secondary to abrupt stent thrombosis of the LAD. Tobacco dependence Type 1 diabetes mellitus Diagnosed at the age of 10. Complicated by retinopathy, nephropathy, and neuropathy. Hemoglobin A1c was 7.6% in July 2020. Vitamin D deficiency disease Surgical History Surgical History (Updated 02/15/21 @ 21:14 by Anai Balderas PA-C) History of endoscopy (~06/27/20) History of femoropopliteal bypass 02/04/21 left common femoral endarterectomy with left femoral to below-knee popliteal artery bypass History of heart artery stent Stent in the LAD in December 2019. Patient had abrupt stent thrombosis of the previously placed stent to the LAD on June 26, 2020 left coronary with extraction thrombectomy and stenting distal to the original stent with upsizing of the original stent. History of right below knee amputation History of spinal surgery Neurostimulator in place. History of transmetatarsal amputation of left foot 02/04/21 at [facility]. Status post below knee ampu
--- NOTE | 2021-02-15 13:20 | PM.CNGS ---
Assessment and Plan Assessment and plan (1) History of transmetatarsal amputation of left foot: Code(s): Z89.432 - Acquired absence of left foot Status: Inactive Assessment and Plan: The patient is 11 days post-op from a left transmetatarsal amputation and left common femoral endarterectomy with left femoral to below-knee popliteal artery bypass. The medial thigh and lower leg incisions are healing well with madeleine intact. There is firm, dry necrosis at the transmetatarsal amputation incision. No purulent drainage or surrounding cellulitis to this area. Both the dorsalis pedis and posterior tibial pulses were found with the doppler on exam. No indication for urgent surgical debridement or intervention to this area, although he will eventually need this addressed. After the patient's acute issues are managed and he is medically stable, he will need to follow-up with vascular surgery for further care. At this time, we will continue local wound care with xeroform and gauze dressing changes and monitor. Thank you for allowing us to see the patient in consultation. (2) Acute respiratory failure: Code(s): J96.00 - Acute respiratory failure, unspecified whether with hypoxia or hypercapnia Status: Acute Assessment and Plan: Intubated in the ICU. Dialysis today. Ventilator management per Animal Behaviorist. (3) CHF exacerbation: Code(s): I50.9 - Heart failure, unspecified Status: Acute Assessment and Plan: Secondary to noncompliance. Receiving dialysis today. (4) Antiplatelet or antithrombotic long-term use: Code(s): Z79.02 - retirement (current) use of antithrombotics/antiplatelets Status: Acute Assessment and Plan: Due to the patient's recent vascular surgery, his antiplatelet regimen needs to be continued. It is okay from a surgical standpoint to start a Heparin drip or Lovenox if needing to hold his antiplatelets while intubated. (5) Metabolic acidosis: Code(s): E87.2 - Acidosis Status: Chronic (6) Noncompliance: Code(s): Z91.19 - Patient's noncompliance with other medical treatment and regimen Status: Acute (7) ESRD (end stage renal disease) on dialysis: Code(s): N18.6 - End stage renal disease; Z99.2 - Dependence on renal dialysis Status: Chronic Assessment and Plan: History of noncompliance. Unclear when his last dialysis treatment was prior to admission. Receiving dialysis today. Management per Nephrology. (8) IDDM (insulin dependent diabetes mellitus): Status: Chronic Assessment and Plan: Blood glucose 650 on admission. Management per Hospitalist. (9) CAD (coronary artery disease): Code(s): I25.10 - Atherosclerotic heart disease of [place] coronary artery without angina pectoris Status: Acute (10) PAD (peripheral artery disease): Code(s): I73.9 - Peripheral vascular disease, unspecified Status: Acute Assessment and Plan: See plan above. Follow-up with vascular surgery when medically stable. Additional Plan I discussed the patient's case and plan of care with Dr. Ospina. History of Present Illness Consult details Consult date: 02/15/21 Reason for consult: other (Gangrenous left transmetatarsal amputation site) Requesting physician: Rodriguez Olivera MD Narrative: This is a 55-year-old male with a history of end-stage renal disease on hemodialysis, type 1 diabetes mellitus complicated by neuropathy, peripheral arterial disease, coronary artery disease, and multiple other co-morbidities. The patient is sedated and intubated in the ICU and unable to provider history, therefore his history was gathered from his electronic medical record. He is known to our service as he was seen previously for a gangrenous left 2nd toe with subsequent left 2nd toe amputation on 01/13/21. The patient was treated with IV antibiotics and sent home with a 2 week course of oral antibiotics. In follow-up with Dr. Hercules
[2021-02-15] MEDS: HEPARIN SOD/D5W 100 UNITS/ML 25,000 UNITS/250 ML BAG 11 UNITS IV CONT (15:22)
[2021-02-15] MEDS: INSULIN ASPART (*BKC) 100 UNITS/ML SUB-Q (17:27)
[2021-02-15] MEDS: PROPOFOL IV EMULSION 100 ML 9.45 MG IV CONT (17:28)
[2021-02-15 17:30] LABS: Glucose Point of Care 225 (65-105)
[2021-02-15] MEDS: INSULIN GLARGINE (*BKC) 100 UNITS/ML 6 UNITS SUB-Q (20:58)
[2021-02-15] MEDS: ATORVASTATIN 40 MG TABLET 80 MG PO (21:43)
[2021-02-15] MEDS: FAMOTIDINE 20 MG/2 ML VIAL IV PUSH (21:43)
[2021-02-15 22:41] LABS: Partial Thromboplastin Time 79.1 SECONDS (22.3-36.8)
[2021-02-16] VITALS (22 sets, daily range): BP systolic 103–171; BP diastolic 51–78; PULSE 79–105; RESP 16–19; TEMP 36.1–37.2; O2SAT 98–100
[2021-02-16 00:13] LABS: Glucose Point of Care 140 (65-105)
[2021-02-16] MEDS: PROPOFOL IV EMULSION 100 ML 13.23 MG IV CONT (02:14)
[2021-02-16 04:27] LABS: Alveolar/Arterial O2 Gradient 146.3 mmHg; Base Excess ABG 4.1 mEq/l (+/-2.0); Carboxyhemoglobin 1.1 % THb (0-2.0); Fractional Inspired Oxygen 40 %; HCO3 ABG 26.4 mEq/l (22.0-26.0); Methemoglobin ABG 0.3 %THb (0-1.5); Oxygen Content ABG 10.4 %vol (16.0-22.0); Oxygen Saturation ABG 98.4 % (95.0-100.0); Oxyhemoglobin 96.7 % THb (90.0-100.0); PO2 ABG 104.4 mmHg (80.0-100.0); PO2 FiO2 Ratio Arterial Blood 2.61 %; Reduced Hemoglobin 1.9 %THb (0-5.0)
[2021-02-16 04:28] LABS: Device VENTILATOR; Modified Allen's Test Unable to perform; Site Drawn LEFT RADIAL; Total Hemoglobin 7.5 g/dL (12.0-18.0); pH ABG 7.562 (7.350-7.450)
[2021-02-16 04:29] LABS: Arterial Blood Gas PEEP 5 cmH2O; Arterial Blood Gas Tidal Volume 450 ml; Arterial Blood Gas Vent Mode CMV; Arterial Blood Gas Ventilator rate 18 /MIN
[2021-02-16 04:55] LABS: Hematocrit 23.6 % (42.0-52.0); Hemoglobin 7.6 g/dL (14.0-18.0); Mean Corpuscular HGB Conc 32.2 g/dl (32-36); Mean Corpuscular Hemoglobin 29.6 pg (26-34); Mean Corpuscular Volume 91.8 fl (80-100); Mean Platelet Volume 10.2 fl (7.4-10.4); Platelet Count Result 511 k/mm3 (150-375); Red Blood Count 2.57 M/mm3 (4.6-6.20); Red Cell Distribution Width 17.4 % (11.5-14.5); White Blood Count 21.3 K/mm3 (4.5-10.0)
[2021-02-16 05:05] LABS: Partial Thromboplastin Time 49.5 SECONDS (22.3-36.8)
[2021-02-16] MEDS: HEPARIN SODIUM 5,000 UNITS/ML VIAL 4500 UNITS IV PUSH (05:20)
[2021-02-16 05:22] LABS: Anion Gap 7 mmol/L (8-16); Blood Urea Nitrogen 30 mg/dL (9-20); Calcium 8.6 mg/dL (8.4-10.2); Carbon Dioxide 31 mmol/L (22-30); Chloride 95 mmol/L (98-107); Estimated CRCL calculation 15 ml/min; Estimated Glomerular Filt Rate 14; Glucose 108 mg/dL (75-110); Sodium 133 mmol/L (137-145)
[2021-02-16 06:15] LABS: Glucose Point of Care 88 (65-105)
[2021-02-16 08:52] LABS: Alveolar/Arterial O2 Gradient 84.7 mmHg; Base Excess ABG 6.4 mEq/l (+/-2.0); Device VENTILATOR; Fractional Inspired Oxygen 30 %; HCO3 ABG 30.3 mEq/l (22.0-26.0); Modified Allen's Test Pass; Oxygen Content ABG 11.3 %vol (16.0-22.0); Oxygen Saturation ABG 96.7 % (95.0-100.0); Oxyhemoglobin 95.3 % THb (90.0-100.0); PCO2 ABG 40.7 mmHg (35.0-45.0); PO2 ABG 81.4 mmHg (80.0-100.0); PO2 FiO2 Ratio Arterial Blood 2.71 %; Site Drawn RIGHT RADIAL; Total Hemoglobin 8.3 g/dL (12.0-18.0); pH ABG 7.489 (7.350-7.450)
[2021-02-16 08:53] LABS: Arterial Blood Gas PEEP 5 cmH2O; Arterial Blood Gas Pressure Support 5 cmH2O; Arterial Blood Gas Vent Mode SPONTANEOUS
[2021-02-16 09:14] LABS: Vancomycin Random 17.3 ug/mL (10-20)
--- NOTE | 2021-02-16 09:21 | PM.PNNEP ---
Progress Note: A&P Assessment and Plan (1) End stage kidney disease: Code(s): N18.6 - End stage renal disease Status: Deleted Assessment and Plan: Ish has end-stage renal disease. He had his dialysis yesterday. Only 2L was able to be removed as it was limited by his blood pressure. His oxygenation is good. Hopefully he will come off the ventilator easily. He is due for his next dialysis tomorrow. If fluid continues to be an issue we can do a dry ultrafiltration today. (2) Acute respiratory failure: Code(s): J96.00 - Acute respiratory failure, unspecified whether with hypoxia or hypercapnia Status: Acute Assessment and Plan: Likely due to fluid overload. This could have been from drinking excess fluid but also could have been from increased afterload with his hypertension. (3) Diabetic foot infection: Code(s): E11.628 - Type 2 diabetes mellitus with other skin complications; L08.9 - Local infection of the skin and subcutaneous tissue, unspecified Status: Deleted Assessment and Plan: The patient has poor wound healing from his transmetatarsal amputation. Surgery has seen the patient. Local wound care ordered. He will return to vascular surgery when more stable. (4) CHF exacerbation: Code(s): I50.9 - Heart failure, unspecified Status: Acute Assessment and Plan: Most likely from his hypertension and fluid intake. (5) Hyperkalemia: Code(s): E87.5 - Hyperkalemia Status: Resolved Assessment and Plan: His potassium is good today. (6) Diabetes mellitus: Code(s): E11.9 - Type 2 diabetes mellitus without complications Status: Deleted Assessment and Plan: On Accu-Cheks and sliding-scale insulin (7) Hypertension: Qualifiers: Hypertension type: unspecified Qualified Code(s): I10 - Essential (primary) hypertension Code(s): I10 - Essential (primary) hypertension Status: Chronic Assessment and Plan: blood pressure is improved now that he is off the sedatives. (8) Smoking: Code(s): F17.200 - Nicotine dependence, unspecified, uncomplicated Status: Acute Assessment and Plan: He continues to smoke we have talked many times about trying to quit. Subjective Date/time seen: 02/16/21 09:21 Interval history: Ish is agitated today. He wants to come off the ventilator. He is very angry. He has tried pulling his ET tube out. He was seen at 8:30 a.m. I talked with him at length trying to calm him down. We have to do this in the right way. If he pulls at out on his own he could cause trauma which might lead to more shortness of breath and re-intubation. Dr. Rodriguez will be coming in the room very shortly; he is undergoing a breathing try I will right now. Review of Systems Review of Systems: ROS unobtainable: Yes unobtainable due to endotracheal tube Exam Narrative: Exam Narrative: WDWN in NAD skin no rash head ncat lungs mild coarse upper airway noise. cor reg no rub abd BS+ nontender and soft ext no edema. Objective Data Vital Signs Vital Signs: Vital Signs - 24 hr 02/15/21 09:35 02/15/21 09:43 02/15/21 09:45 Temperature Pulse Rate 80 86 85 Respiratory Rate 18 20 21 H Blood Pressure 129/63 152/77 H Pulse Oximetry 100 100 02/15/21 10:02 02/15/21 10:15 02/15/21 10:56 Temperature Pulse Rate 86 75 70 Respiratory Rate 21 H 18 Blood Pressure 98/58 L 109/57 L Pulse Oximetry 100 100 100 02/15/21 11:01 02/15/21 11:30 02/15/21 11:56 Temperature 35.8 C L Pulse Rate 78 66 Respiratory Rate 18 18 Blood Pressure 138/66 107/59 L Pulse Oximetry 100 100 100 02/15/21 11:57 02/15/21 12:00 02/15/21 12:15 Temperature 35.7 C L Pulse Rate 63 63 67 Respiratory Rate 18 Blood Pressure 113/60 112/60 122/66 Pulse Oximetry 100 02/15/21 12:30 02/15/21 12:39 02/15/21 12:45 Temperature Pulse Rate 6
[2021-02-16] MEDS: HYDROcodone/acetaminophen (*CRX) 10-325 MG TABLET 1 TAB PO ×3 (09:35→21:22)
[2021-02-16] MEDS: fentaNYL CITRATE INJ (*CRX) 100 MCG/2 ML VIAL 50 MCG IV PUSH ×3 (09:36→15:40)
[2021-02-16] MEDS: FAMOTIDINE 20 MG/2 ML VIAL IV PUSH ×2 (09:40→21:20)
[2021-02-16] MEDS: TICAGRELOR 90 MG TABLET PO ×2 (09:41→21:21)
[2021-02-16 09:53] LABS: Glucose Point of Care 91 (65-105)
[2021-02-16] MEDS: ASPIRIN 81 MG ENTERIC TABLET PO (10:15)
[2021-02-16] MEDS: FOLIC ACID 1 MG/0.2 ML INJ IV PUSH (10:15)
--- NOTE | 2021-02-16 10:29 | WPDINTPN ---
Progress Note: A&P Assessment and Plan (1) Acute respiratory failure: Code(s): J96.00 - Acute respiratory failure, unspecified whether with hypoxia or hypercapnia Status: Acute Assessment and Plan: Acute Respiratory failure secondary to pulmonary edema due to noncompliance with dialysis and other medication regimen. Although patient did have elevated white count, chest x-ray suggested pulmonary edema. He was dialyzed last night and 2 L of fluid were removed He is on broad-spectrum antibiotics which should cover for pneumonia too. Today he was on 30% FiO2 5/5 PSV SBT done for more than 30 min. RSBI, ABGI and Vitals acceptable. Pt awake and following commands. Will extubate and monitor. (2) Diabetic foot infection: Code(s): E11.628 - Type 2 diabetes mellitus with other skin complications; L08.9 - Local infection of the skin and subcutaneous tissue, unspecified Status: Deleted Assessment and Plan: He is 11 days post-op from a left transmetatarsal amputation and left common femoral endarterectomy with left femoral to below-knee popliteal artery bypass. The medial thigh and lower leg incisions are healing well with madeleine intact. There is firm, dry necrosis at the transmetatarsal amputation incision. Patient was started empirically on Zosyn and vancomycin. Which will be continued Surgery has been consulted and they do not feel that foot looks infected and recommend local wound care Cultures have been sent from emergency department and 1/2 is growing gram-negative rods If recommended by surgery for any surgical intervention, patient will be transferred back to [facility] where he had vascular surgery recently He has PAD and had recent vascular surgery. Antiplatelet drugs will be continued (3) CHF exacerbation: Code(s): I50.9 - Heart failure, unspecified Status: Acute Assessment and Plan: Improved after hemodialysis Strict intake output record and daily weight. (4) Elevated troponin: Code(s): R77.8 - Other specified abnormalities of plasma proteins Status: Acute Assessment and Plan: Patient has chronically elevated troponin level due to CHF and end-stage renal disease. The level was infected lower than what it has been in the past Continue coronary artery disease treatment Discontinue heparin infusion (5) CAD (coronary artery disease): Code(s): I25.10 - Atherosclerotic heart disease of [place] coronary artery without angina pectoris Status: Acute Assessment and Plan: Continue his cardiac regimen with aspirin Lipitor and Brilinta. Continue carvedilol. (6) ESRD (end stage renal disease) on dialysis: Code(s): N18.6 - End stage renal disease; Z99.2 - Dependence on renal dialysis Status: Chronic Assessment and Plan: Nephrology has been consulted. Dialysis as per nephrology service. No session planned for today (7) IDDM (insulin dependent diabetes mellitus): Status: Chronic Assessment and Plan: Continue Lantus and insulin sliding scale. (8) Bacteremia: Code(s): R78.81 - Bacteremia Status: Acute Assessment and Plan: Patient's blood cultures are growing or gram-negative rods in anaerobic bottle 1/2. Could be contaminant versus from his foot Continue vancomycin and Zosyn for now Additional Plan DVT prophylaxis -currently on heparin drip. Will switch to subcu Stress ulcer prophylaxis -Pepcid Nutrition - NPO will start diet once patient is extubated Code Status - Full Code Critical Care Time -30 minutes Due to a high probability of clinically significant, life threatening deterioration, the patient required my highest level of preparedness to intervene emergently and I personally spent this critical care time directly and personally managing the patient. This critical care time included obtaining a history; examining the patient; pulse oximetry; ordering and review of studies;
--- NOTE | 2021-02-16 13:58 | PC.NURSE ---
Pt advised on clear liquid diet and will advance as tolerated. Walked in to room to give clear tray and had brought him two double cheeseburgers from [employer] which he was eating.
--- NOTE | 2021-02-16 16:21 | WPDPN ---
Progress Note: A&P Assessment and Plan (1) History of transmetatarsal amputation of left foot: Code(s): Z89.432 - Acquired absence of left foot Status: Inactive Assessment and Plan: Transmetatarsal amputation site without changes today. Still remains stable with no purulent drainage or surrounding cellulitis. Continue local wound care and monitoring for wound changes. Will need to follow-up with vascular once medically stable. (2) Acute respiratory failure: Code(s): J96.00 - Acute respiratory failure, unspecified whether with hypoxia or hypercapnia Status: Acute Assessment and Plan: Extubated this morning. Management per Fuel Verification Technician and primary team. (3) CHF exacerbation: Code(s): I50.9 - Heart failure, unspecified Status: Acute (4) PAD (peripheral artery disease): Code(s): I73.9 - Peripheral vascular disease, unspecified Status: Acute Assessment and Plan: See plan above. Follow-up with vascular surgery when medically stable. (5) Antiplatelet or antithrombotic long-term use: Code(s): Z79.02 - alf (current) use of antithrombotics/antiplatelets Status: Acute Assessment and Plan: Continue Brilinta. (6) ESRD (end stage renal disease) on dialysis: Code(s): N18.6 - End stage renal disease; Z99.2 - Dependence on renal dialysis Status: Chronic (7) IDDM (insulin dependent diabetes mellitus): Status: Chronic Additional Plan I discussed the patient's plan of care with Dr. Ospina. Exam Const: General: comfortable and no acute distress Skin: General skin exam: pallor Other: Left medial upper thigh incision with madeleine intact and edges well approximated, no signs of infection. Left medial lower leg incision with madeleine intact and edges well approximated, no signs of infection. Left transmetatarsal amputation incision with madeleine intact and localized area of dark purple skin discoloration the length of the incision - unchanged from yesterday. No purulent drainage or surrounding cellulitis. Still able to doppler left PT and DP pulses. Neuro: General: patient oriented x3, moves all extremities and no focal motor deficits Extrem: General: full ROM, no clubbing, cyanosis or edema and amputation noted Below the knee: right and Transmetatarsal: left Psych: Insight: Fair insight present (Psych) Judgement: Fair judgement present (Psych) Objective Data Vital Signs Vital Signs: Vital Signs - 24 hr 02/15/21 16:25 02/15/21 17:28 02/15/21 17:34 Temperature Pulse Rate 65 72 75 Respiratory Rate 21 H 19 Blood Pressure Pulse Oximetry 100 02/15/21 18:00 02/15/21 19:40 02/15/21 20:00 Temperature 97.2 F L Pulse Rate 67 73 71 Respiratory Rate 18 18 Blood Pressure 154/60 H 103/54 L Pulse Oximetry 100 100 100 02/15/21 20:45 02/15/21 22:00 02/15/21 22:11 Temperature Pulse Rate 74 76 76 Respiratory Rate 18 18 18 Blood Pressure 129/60 Pulse Oximetry 100 02/15/21 22:13 02/15/21 22:15 02/15/21 22:30 Temperature Pulse Rate 76 80 86 Respiratory Rate 18 20 Blood Pressure Pulse Oximetry 100 02/16/21 00:00 02/16/21 00:10 02/16/21 01:33 Temperature 97.2 F L Pulse Rate 83 83 86 Respiratory Rate 18 18 Blood Pressure 107/56 L Pulse Oximetry 100 100 02/16/21 02:00 02/16/21 02:13 02/16/21 02:14 Temperature Pulse Rate 89 89 89 Respiratory Rate 18 18 18 Blood Pressure 141/65 H Pulse Oximetry 100 02/16/21 03:15 02/16/21 04:00 02/16/21 04:35 Temperature 97.0 F L Pulse Rate 89 88 87 Respiratory Rate 18 18 Blood Pressure 138/63 Pulse Oximetry 100 100 02/16/21 05:42 02/16/21 06:00 02/16/21 07:59 Temperature Pulse Rate 81 80 79 Respiratory Rate 18 18 Blood Pressure 103/51 L Pulse Oximetry 100 100 02/16/21 08:00 02/16/21 08:05 02/16/21 08:54 Temperature Pulse Rate 79 79 97 Respiratory Rate 18 18 Blood Pressure 122/68 Pulse Oxime
--- NOTE | 2021-02-16 16:43 | PM.IMPN ---
Progress Note: A&P Assessment and Plan (1) Acute respiratory failure: Code(s): J96.00 - Acute respiratory failure, unspecified whether with hypoxia or hypercapnia Status: Acute Assessment and Plan: Secondary to volume overload due to noncompliance with dialysis and his medication regimen. Cannot rule out pneumonia.empircally started on vancomycin and zosyn. extuated successfullly this am 02/16 (2) CHF exacerbation: Code(s): I50.9 - Heart failure, unspecified Status: Acute Assessment and Plan: Secondary to noncompliance as detailed above. Patient underwent dialysis 02/15. (3) End-stage renal disease on hemodialysis: Code(s): N18.6 - End stage renal disease; Z99.2 - Dependence on renal dialysis Status: Acute Assessment and Plan: Patient has a history of noncompliance and missed dialysis sessions. (4) Metabolic acidosis: Code(s): E87.2 - Acidosis Status: Chronic Assessment and Plan: Due to a combination of lactic acidosis and renal disease. Repeat lactic acid has normalized. (5) Amputation of left forefoot: Code(s): S98.912A - Complete traumatic amputation of left foot, level unspecified, initial encounter Status: Acute Assessment and Plan: Patient is status post left forefoot amputation at [facility] within the last several weeks. on empiric vanc and zosyn. gen surgery consulted. appreciate their recs. (6) Electrolyte abnormality: Code(s): E87.8 - Other disorders of electrolyte and fluid balance, not elsewhere classified Status: Acute Assessment and Plan: Including moderate hyponatremia and mild hyperkalemia among others. angus. 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 Continue basal insulin. Initiate sliding scale insulin, Accu-Cheks, and hypoglycemic protocol. (8) Noncompliance: Code(s): Z91.19 - Patient's noncompliance with other medical treatment and regimen Status: Acute Assessment and Plan: An ongoing issue with this patient, unfortunately. (9) Hypertension: Qualifiers: Hypertension type: unspecified Qualified Code(s): I10 - Essential (primary) hypertension Code(s): I10 - Essential (primary) hypertension Status: Chronic Assessment and Plan: Blood pressure was 255/121 on arrival to the emergency department. Initially started on nitropaste and propofol with a drop in pressures. currently off these and stable. likele levated due to volume overload (10) Coronary artery disease: Qualifiers: Coronary Disease-Associated Artery/Lesion type: [place] artery [place] vs. transplanted heart: crow heart Associated angina: without angina Qualified Code(s): I25.10 - Atherosclerotic heart disease of [place] coronary artery without angina pectoris Code(s): I25.10 - Atherosclerotic heart disease of [place] coronary artery without angina pectoris Status: Acute Assessment and Plan: Troponin is a bit elevated likely due to a combination of factors and less likely acute coronary syndrome. No workup planned unless troponin jumps exponentially. Continue dual anti-platelet therapy and statin. Beta-graciela currently on hold given soft blood pressures. (11) Tobacco dependence: Code(s): F17.200 - Nicotine dependence, unspecified, uncomplicated Status: Acute Assessment
[2021-02-16] MEDS: INSULIN ASPART (*BKC) 100 UNITS/ML 15 UNITS SUB-Q (18:04)
[2021-02-16] MEDS: THIAMINE HCL 200 MG/2 ML VIAL 100 MG IV PUSH (18:05)
[2021-02-16 18:11] LABS: Glucose Point of Care > 500 (65-105)
[2021-02-16] MEDS: ATORVASTATIN 40 MG TABLET 80 MG PO (21:20)
[2021-02-16] MEDS: HEPARIN SODIUM 5,000 UNITS/ML VIAL 5000 UNITS SUB-Q (21:21)
[2021-02-16 22:43] LABS: Glucose Point of Care > 500 (65-105)
[2021-02-16] MEDS: INSULIN GLARGINE (*BKC) 100 UNITS/ML 6 UNITS SUB-Q (23:24)
[2021-02-16 23:59] LABS: Glucose 715 mg/dL (75-110)
[2021-02-17] VITALS (49 sets, daily range): BP systolic 99–195; BP diastolic 51–90; PULSE 65–156; RESP 16–36; TEMP 35.9–37.2; O2SAT 95–100; BMI 21.4
[2021-02-17] MEDS: INSULIN ASPART (*BKC) 100 UNITS/ML 20 UNITS SUB-Q (00:12)
[2021-02-17 00:41] LABS: Anion Gap 12 mmol/L (8-16); Blood Urea Nitrogen 48 mg/dL (9-20); Calcium 8.3 mg/dL (8.4-10.2); Carbon Dioxide 26 mmol/L (22-30); Chloride 88 mmol/L (98-107); Estimated CRCL calculation 11 ml/min; Estimated Glomerular Filt Rate 9; Potassium 4.6 mmol/L (3.4-5.0); Sodium 126 mmol/L (137-145)
[2021-02-17 03:40] LABS: Glucose Point of Care 500 (65-105)
[2021-02-17 03:56] LABS: Mean Corpuscular HGB Conc 32.3 g/dl (32-36); Mean Corpuscular Hemoglobin 29.3 pg (26-34); Mean Corpuscular Volume 90.7 fl (80-100); Mean Platelet Volume 9.7 fl (7.4-10.4); Platelet Count Result 398 k/mm3 (150-375); Red Blood Count 2.05 M/mm3 (4.6-6.20); White Blood Count 19.1 K/mm3 (4.5-10.0)
[2021-02-17 04:13] LABS: Anion Gap 10 mmol/L (8-16); Blood Urea Nitrogen 49 mg/dL (9-20); Carbon Dioxide 29 mmol/L (22-30); Chloride 90 mmol/L (98-107); Estimated CRCL calculation 10 ml/min; Estimated Glomerular Filt Rate 9; Glucose 488 mg/dL (75-110); Potassium 4.4 mmol/L (3.4-5.0); Sodium 129 mmol/L (137-145)
[2021-02-17] MEDS: INSULIN HUMAN REGULAR (*BKC) 100 UNITS in SODIUM CHLORIDE 0.9% IV 99 ML 8.6 UNITS IV CONT (04:32)
[2021-02-17 04:46] LABS: Hematocrit 18.6 % (42.0-52.0)
[2021-02-17 05:08] LABS: Alveolar/Arterial O2 Gradient 60.5 mmHg; Base Excess ABG 3.3 mEq/l (+/-2.0); Fractional Inspired Oxygen 21 %; HCO3 ABG 26.3 mEq/l (22.0-26.0); Methemoglobin ABG 0.3 %THb (0-1.5); Oxygen Content ABG 8.3 %vol (16.0-22.0); Oxygen Saturation ABG 89.3 % (95.0-100.0); Oxyhemoglobin 86.5 % THb (90.0-100.0); PO2 FiO2 Ratio Arterial Blood 2.37 %; Reduced Hemoglobin 12.2 %THb (0-5.0)
[2021-02-17 05:09] LABS: PO2 ABG 49.7 mmHg (80.0-100.0); Total Hemoglobin 6.8 g/dL (12.0-18.0)
[2021-02-17 05:10] LABS: Device ROOM AIR; Modified Allen's Test Pass; Site Drawn RIGHT RADIAL
--- NOTE | 2021-02-17 05:30 | PM.EVENT ---
Event Note Event Note Event Note: Nursing staff called to notify me the patient's glucoses were above 700 despite receiving 15 units subq NovoLog and his scheduled Lantus. The patient had had a full liquid diet tray plus a renal diet tray and his brought in too fast food sandwiches and fries. The patient also has jelly beans head and in his room. The patient received another 20 units of subq insulin with his glucoses still remaining greater than 500 after a total of 35 units of NovoLog. Patient has subsequently been transferred to ICU status and has been started on an insulin drip non DKA to get more adequate management of his glucoses. The fluid power mechanic was contacted by the nursing staff. Patient's hemoglobin was also 6.0. I have requested that 2 units of PRBC be ordered but that the transfusion be discussed with nephrology as patient is postop dialysis today. Patient's blood pressures were also markedly elevated and his antihypertensive had evidently been held on admission. They had not been resumed as of yet. I have requested the patient receive his morning Norvasc and Coreg dosing immediately. Will monitor blood pressures closely.
[2021-02-17 05:35] LABS: Glucose Point of Care 359 (65-105)
[2021-02-17] MEDS: MORPHINE SULFATE (*CRX) 2 MG/ML INJ IV PUSH (05:50)
[2021-02-17] MEDS: NITROGLYCERIN OINTMENT 1 INCH DOSE TRANSDERM (05:50)
[2021-02-17] MEDS: FUROSEMIDE INJ 100 MG/10 ML VIAL 80 MG IV PUSH (05:55)
[2021-02-17] MEDS: METOPROLOL TARTRATE INJ 5 MG/5 ML VIAL IV PUSH (06:05)
[2021-02-17] MEDS: FENTANYL 2,500MCG/NS250ML(*CRX 2,500 MCG/250 ML BAG IV CONT (06:20)
[2021-02-17] MEDS: PROPOFOL IV EMULSION 100 ML 1.81 MG IV CONT (06:20)
--- NOTE | 2021-02-17 06:21 | ECG_ITS ---
Measurements Intervals [place] Rate: 117 P: 72 SD: 152 QRS: 71 QRSD: 94 T: 120 QT: 327 QTc: 456 Interpretive Statements SINUS TACHYCARDIA DELAYED PRECORDIAL R/S TRANSITION NONSPECIFIC ST & T-WAVE ABNORMALITY- INF/HIGH LAT LEADS BASELINE ARTIFACT- I, II, III, AVR, AVL, AVF, V3 ABNORMAL ECG Electronically Signed On 02-17-2021 6:58:10 CDT by Edmond Elias D.O.
[2021-02-17] MEDS: LABETALOL HCL INJ 100 MG/20 ML VIAL 40 MG IV PUSH (06:40)
[2021-02-17 06:47] LABS: Glucose Point of Care 334 (65-105)
--- NOTE | 2021-02-17 07:29 | WPDPROCEDUR ---
Procedures Intubation Intubation Date: 02/17/21 Intubation Time: 06:13 A pre-procedural Time-Out was completed immediately before starting the procedure and confirmed: Patient Identification, Site, Procedure, Patient Position and the Availability of Requisite Equipment: Yes Sedative: etomidate Mg given: 20 Paralytic: succinylcholine Mg given: 60 Laryngoscope: fiber optic video scope ET tube size: 8 Tube secured depth (cm): 26 Tube secured location: lips Tube placement confirmation: visualized tube passing through cords, equal breath sounds bilaterally, no breath sounds over epigastrium and confirmation by capnometry Patient tolerated procedure: well Intubation complications: none
--- NOTE | 2021-02-17 07:32 | PM.CCN ---
Critical Care Event Note Summary Code activated: No Narrative: 02/17/2021 at 6:00 a.m. The patient developed sudden onset of severe shortness of breath. The patient was diaphoretic. He denied having chest pain. He was requiring 5.5 L nasal cannula oxygen but was still having desaturations. The patient was given stat Lasix 80 mg IV push. His blood pressures were noted to be elevated to the 190 systolic. He had coarse crackles bilaterally. The patient had had multiple dietary indiscretions overnight and drink at least 20 oz of water sometime between midnight and 6:00 a.m.. Nursing staff noted the bottle and the patient's bedside table 4:00 a.m.. The bottle was empty just before 6:00 a.m.. Despite IV Lopressor and Lasix patient's respiratory status continued to decline. The patient's blood pressures continued to climb up to 230s/120s. His respiratory rate was up to 39 and his oxygen saturations had dropped to 81% on non-rebreather. Subsequently the decision was made to intubate the patient after RSI. GENERAL: Acutely ill-appearing, marked respiratory distress HEENT: Mucous membranes are tacky, pupils are equal, head is normocephalic atraumatic CARDIOVASCULAR: Marked tachycardia with heart rate between 140 and 150, EKG was a poor study but appeared to be sinus tach RESPIRATORY: Coarse crackles bilaterally, marked respiratory distress, marked tachypnea ABDOMEN: Nondistended, soft INTEGUMENT: Generalized pallor, diaphoretic NEUROLOGIC: Alert and oriented, speech clear, moving all extremities equally PSYCHIATRIC: Irritable, uncooperative EXTREMITIES: Chronic left foot wound with darkened skin that appears necrotic, wound is dry staple line intact across the mid tarsal amputation site : Baptiste catheter placed after resuscitation 02/15/21 02/16/21 02/16/21 08:27 04:21 08:40 Puncture Site Right radial Left radial Right radial ABG pH 7.262 L* 7.562 H* 7.489 H ABG pCO2 43.2 30.0 L 40.7 ABG pO2 354.9 H 104.4 H 81.4 ABG PO2/FiO2 Ratio 3.55 2.61 2.71 ABG HCO3 19.0 L 26.4 H 30.3 H ABG O2 Saturation 99.7 98.4 96.7 ABG O2 Content 12.2 L 10.4 L 11.3 L ABG Base Excess -7.5 4.1 6.4 A-a Gradient 314.9 146.3 84.7 Oxyhemoglobin 97.4 96.7 95.3 Carboxyhemoglobin 2.1 H 1.1 Reduced Hemoglobin 0.2 1.9 Total Hemoglobin 8.2 L 7.5 L* 8.3 L O2 Delivery Device Ventilator Ventilator Ventilator O2 Liters/Min Not Reportable Not Reportable Not Reportable Vent Rate 18 18 Not Reportable FiO2 100 40 30 02/17/21 05:04 Puncture Site Right radial ABG pH 7.520 H* ABG pCO2 33.0 L ABG pO2 49.7 L* ABG PO2/FiO2 Ratio 2.37 ABG HCO3 26.3 H ABG O2 Saturation 89.3 L ABG O2 Content 8.3 L ABG Base Excess 3.3 A-a Gradient 60.5 Oxyhemoglobin 86.5 L Carboxyhemoglobin 1.0 Reduced Hemoglobin 12.2 H Total Hemoglobin 6.8 L* O2 Delivery Device Room air O2 Liters/Min 0.0 Vent Rate FiO2 21 Chest x-ray personally reviewed. On my interpretation patient had diffuse pulmonary edema. Radiologic interpretation pending repeat chest x-ray after intubation demonstrated ET tube in appropriate position with stable pulmonary edema. KUB personally reviewed demonstrated OG beyond the diaphragm will advance OG 3-5 cm. Assessment and plan: 1. Flash pulmonary edema with acute hypoxic respiratory failure: The patient has been reintubated. Ventilator settings tidal volume 450 peep of 5 rate of 16 with 70% FiO2. Patient has been placed on sedation with propofol and fentanyl currently maxed out. 2. Hypertensive urgency: Leading to or as a result of flash pulmonary edema. Blood pressures improved after nitropaste and IV labetalol 40 mg. Patient had no response to IV Lopressor. 3. Anemia: Patient will need transfusion with hemodialysis. 55 minutes spent in critical care activities. This case had a high probability of a clinically significant, sudden, or life threatening deterioration of this patient
[2021-02-17 07:48] LABS: Glucose Point of Care 261 (65-105)
--- NOTE | 2021-02-17 08:13 | PC.NURSE ---
CALLED TO ROOM AT 0545, PT YELLING HE NEEDS A URINAL Found pt sitting on edge of bed, diaphoretic, panting, resp 35-40, SpO2 81% HR 150's . Adia, charge nurse at bedside to assist and Dr. Ponce and respirtory paged.
[2021-02-17 08:29] LABS: Base Excess ABG 2.8 mEq/l (+/-2.0); Carboxyhemoglobin 0.9 % THb (0-2.0); Fractional Inspired Oxygen 50 %; HCO3 ABG 27.9 mEq/l (22.0-26.0); Methemoglobin ABG 0.3 %THb (0-1.5); Oxygen Content ABG 8.6 %vol (16.0-22.0); Oxygen Saturation ABG 95.9 % (95.0-100.0); Oxyhemoglobin 94.1 % THb (90.0-100.0); PCO2 ABG 45.7 mmHg (35.0-45.0); PO2 ABG 81.1 mmHg (80.0-100.0); PO2 FiO2 Ratio Arterial Blood 1.62 %; Reduced Hemoglobin 4.7 %THb (0-5.0); pH ABG 7.403 (7.350-7.450)
[2021-02-17 08:30] LABS: Device VENTILATOR; Modified Allen's Test Pass; Site Drawn RIGHT RADIAL; Total Hemoglobin 6.4 g/dL (12.0-18.0)
[2021-02-17 08:31] LABS: Arterial Blood Gas PEEP 5 cmH2O; Arterial Blood Gas Tidal Volume 450 ml; Arterial Blood Gas Vent Mode CMV; Arterial Blood Gas Ventilator rate 16 /MIN
[2021-02-17] MEDS: INSULIN GLARGINE (*BKC) 100 UNITS/ML 20 UNITS SUB-Q (08:33)
[2021-02-17] MEDS: FAMOTIDINE 20 MG/2 ML VIAL IV PUSH (08:34)
[2021-02-17] MEDS: THIAMINE HCL 200 MG/2 ML VIAL 100 MG IV PUSH (08:34)
[2021-02-17] MEDS: HEPARIN SODIUM 5,000 UNITS/ML VIAL 5000 UNITS SUB-Q ×2 (08:34→20:02)
[2021-02-17] MEDS: FOLIC ACID 1 MG/0.2 ML INJ IV PUSH (08:36)
[2021-02-17 08:51] LABS: Glucose Point of Care 180 (65-105)
[2021-02-17] MEDS: TICAGRELOR 90 MG TABLET PO (09:12)
[2021-02-17] MEDS: FUROSEMIDE 80 MG TABLET PO (09:13)
--- NOTE | 2021-02-17 09:26 | WPDINTPN ---
Progress Note: A&P Assessment and Plan (1) Acute respiratory failure: Code(s): J96.00 - Acute respiratory failure, unspecified whether with hypoxia or hypercapnia Status: Acute Assessment and Plan: Acute Respiratory failure secondary to flash pulmonary edema due to noncompliance with dialysis, diet, fluid restriction and other medication regimen. Intubated 02/15 HD 02/15 extubated 02/16 -> reintubated 02/17 He is already on broad-spectrum antibiotics which should cover for pneumonia too. ABG and chest x-ray reviewed Discussed with nephrology plan for hemodialysis to remove fluid (2) Diabetic foot infection: Code(s): E11.628 - Type 2 diabetes mellitus with other skin complications; L08.9 - Local infection of the skin and subcutaneous tissue, unspecified Status: Deleted Assessment and Plan: He is 12 days post-op from a left transmetatarsal amputation and left common femoral endarterectomy with left femoral to below-knee popliteal artery bypass. The medial thigh and lower leg incisions are healing well with madeleine intact. There is firm, dry necrosis at the transmetatarsal amputation incision. Patient was started empirically on Zosyn and vancomycin. Which will be continued Surgery has been consulted and they do not feel that foot looks infected and recommend local wound care Cultures have been sent from emergency department and 1/2 is growing gram-negative rods If recommended by surgery for any surgical intervention, patient will be transferred back to [facility] where he had vascular surgery recently He has PAD and had recent vascular surgery. Antiplatelet drugs will be continued (3) CHF exacerbation: Code(s): I50.9 - Heart failure, unspecified Status: Acute Assessment and Plan: Plan to remove fluid with hemodialysis Strict intake output record and daily weight. Patient on compliant (4) Elevated troponin: Code(s): R77.8 - Other specified abnormalities of plasma proteins Status: Acute Assessment and Plan: Patient has chronically elevated troponin level due to CHF and end-stage renal disease. The level was infected lower than what it has been in the past Continue coronary artery disease treatment Off heparin infusion (5) CAD (coronary artery disease): Code(s): I25.10 - Atherosclerotic heart disease of [place] coronary artery without angina pectoris Status: Acute Assessment and Plan: Continue his cardiac regimen with aspirin Lipitor and Brilinta. Continue carvedilol. (6) ESRD (end stage renal disease) on dialysis: Code(s): N18.6 - End stage renal disease; Z99.2 - Dependence on renal dialysis Status: Chronic Assessment and Plan: Nephrology is following. Dialysis as per nephrology service. Another session planned for today (7) IDDM (insulin dependent diabetes mellitus): Status: Chronic Assessment and Plan: Uncontrolled Continue insulin infusion Increase Lantus (8) Bacteremia: Code(s): R78.81 - Bacteremia Status: Acute Assessment and Plan: Patient's blood cultures are growing or gram-negative rods in anaerobic bottle 1/2. Could be contaminant versus from his foot Continue vancomycin and Zosyn for now (9) Anemia: Code(s): D64.9 - Anemia, unspecified Status: Acute Assessment and Plan: Hemoglobin dropped from 7.6-6 Will transfuse 1 unit of packed red cells and then recheck Change Pepcid to PPI No obvious source of bleed at this time Continue antiplatelet drugs for now Additional Plan DVT prophylaxis -SC heparin drip. Stress ulcer prophylaxis -Pepcid Nutrition -start tube feeds Code Status - Full Code Critical Care Time -32 minutes Due to a high probability of clinically significant, life threatening deterioration, the patient required my highest level of preparedness to intervene emergently and I personally spent this critical care time directly and persona
[2021-02-17] MEDS: ASPIRIN 81 MG CHEWABLE TABLET PO (09:35)
[2021-02-17 09:37] LABS: Glucose Point of Care 107 (65-105)
[2021-02-17 10:46] LABS: Glucose Point of Care 80 (65-105)
[2021-02-17] MEDS: PROPOFOL IV EMULSION 100 ML 18.09 MG IV CONT ×3 (11:13→21:26)
[2021-02-17] MEDS: DEXTROSE 50% 25 GM/50 ML SYRINGE IV PUSH (12:50)
[2021-02-17 12:54] LABS: Glucose Point of Care 44 (65-105)
[2021-02-17 13:12] LABS: Glucose Point of Care 133 (65-105)
[2021-02-17 13:40] LABS: Mean Corpuscular HGB Conc 33.1 g/dl (32-36); Mean Corpuscular Hemoglobin 30.1 pg (26-34); Mean Corpuscular Volume 90.7 fl (80-100); Mean Platelet Volume 9.4 fl (7.4-10.4); Platelet Count Result 374 k/mm3 (150-375); Red Blood Count 1.83 M/mm3 (4.6-6.20); Red Cell Distribution Width 17.1 % (11.5-14.5); White Blood Count 21.6 K/mm3 (4.5-10.0)
[2021-02-17 13:43] LABS: Hematocrit 16.6 % (42.0-52.0); Hemoglobin 5.5 g/dL (14.0-18.0)
[2021-02-17] MEDS: SODIUM CHLORIDE 0.9% IV 250 ML 30 ML IV CONT (14:10)
--- NOTE | 2021-02-17 14:51 | PM.IMPN ---
Progress Note: A&P Assessment and Plan (1) Acute respiratory failure: Code(s): J96.00 - Acute respiratory failure, unspecified whether with hypoxia or hypercapnia Status: Acute Assessment and Plan: Secondary to volume overload due to noncompliance with dialysis and his medication regimen. Cannot rule out pneumonia.empircally started on vancomycin and zosyn. extuated successfullly this am 02/16 reintubated again 02/17. curently sedated and on vent (2) CHF exacerbation: Code(s): I50.9 - Heart failure, unspecified Status: Acute Assessment and Plan: Secondary to noncompliance as detailed above. Patient underwent dialysis 02/15. undergonig dialsyis again today (3) End-stage renal disease on hemodialysis: Code(s): N18.6 - End stage renal disease; Z99.2 - Dependence on renal dialysis Status: Acute Assessment and Plan: Patient has a history of noncompliance and missed dialysis sessions. (4) Metabolic acidosis: Code(s): E87.2 - Acidosis Status: Chronic Assessment and Plan: Due to a combination of lactic acidosis and renal disease. Repeat lactic acid has normalized. (5) Amputation of left forefoot: Code(s): S98.912A - Complete traumatic amputation of left foot, level unspecified, initial encounter Status: Acute Assessment and Plan: Patient is status post left forefoot amputation at [facility] within the last several weeks. on empiric vanc and zosyn. gen surgery consulted. appreciate their recs. (6) Electrolyte abnormality: Code(s): E87.8 - Other disorders of electrolyte and fluid balance, not elsewhere classified Status: Acute Assessment and Plan: Including moderate hyponatremia and mild hyperkalemia among others. montior. 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 Continue basal insulin. Initiate sliding scale insulin, Accu-Cheks, and hypoglycemic protocol. (8) Noncompliance: Code(s): Z91.19 - Patient's noncompliance with other medical treatment and regimen Status: Acute Assessment and Plan: An ongoing issue with this patient, unfortunately. (9) Hypertension: Qualifiers: Hypertension type: unspecified Qualified Code(s): I10 - Essential (primary) hypertension Code(s): I10 - Essential (primary) hypertension Status: Chronic Assessment and Plan: Blood pressure was 255/121 on arrival to the emergency department. Initially started on nitropaste and propofol with a drop in pressures. currently off these and stable. likele levated due to volume overload (10) Coronary artery disease: Qualifiers: Coronary Disease-Associated Artery/Lesion type: [place] artery [place] vs. transplanted heart: [place] heart Associated angina: without angina Qualified Code(s): I25.10 - Atherosclerotic heart disease of [place] coronary artery without angina pectoris Code(s): I25.10 - Atherosclerotic heart disease of [place] coronary artery without angina pectoris Status: Acute Assessment and Plan: Troponin is a bit elevated likely due to a combination of factors and less likely acute coronary syndrome. No workup planned unless troponin jumps exponentially. Continue dual anti-platelet therapy and statin. Beta-graciela currently on hold given soft blood pressures. (11) Tobacco dependence: Code(s): F17.200 -
[2021-02-17 17:05] LABS: Glucose Point of Care 83 (65-105)
--- NOTE | 2021-02-17 17:42 | PM.PNNEP ---
Progress Note: A&P Assessment and Plan (1) End stage kidney disease: Code(s): N18.6 - End stage renal disease Status: Deleted Assessment and Plan: Ish has end-stage renal disease. he ate and drank a lot of food and liquid along with lots of salt because it was carry out. He has no swelling so apparently all of the fluid he drank went straight into his lungs. Getting dialysis now (2) Acute respiratory failure: Code(s): J96.00 - Acute respiratory failure, unspecified whether with hypoxia or hypercapnia Status: Acute Assessment and Plan: Likely due to fluid overload. (3) Diabetic foot infection: Code(s): E11.628 - Type 2 diabetes mellitus with other skin complications; L08.9 - Local infection of the skin and subcutaneous tissue, unspecified Status: Deleted Assessment and Plan: The patient has poor wound healing from his transmetatarsal amputation. Surgery has seen the patient. Local wound care ordered. He will return to vascular surgery when more stable. (4) CHF exacerbation: Code(s): I50.9 - Heart failure, unspecified Status: Acute Assessment and Plan: Most likely from his hypertension and fluid intake. (5) Hyperkalemia: Code(s): E87.5 - Hyperkalemia Status: Resolved Assessment and Plan: His potassium is good today. (6) Diabetes mellitus: Code(s): E11.9 - Type 2 diabetes mellitus without complications Status: Deleted Assessment and Plan: On Accu-Cheks and sliding-scale insulin (7) Hypertension: Qualifiers: Hypertension type: unspecified Qualified Code(s): I10 - Essential (primary) hypertension Code(s): I10 - Essential (primary) hypertension Status: Chronic Assessment and Plan: blood pressure is improved now that he is off the sedatives. (8) Smoking: Code(s): F17.200 - Nicotine dependence, unspecified, uncomplicated Status: Acute Assessment and Plan: He continues to smoke we have talked many times about trying to quit. Subjective Date/time seen: 02/17/21 17:42 Interval history: Ish is intubated again. Again he ate carry out and also drink a lot of fluid yesterday and developed flash pulmonary edema early this morning. Now he is on dialysis and tolerating it well. Ultrafiltration is set for 3L. He was seen at 5:00 p.m. Exam Narrative: Exam Narrative: WDWN in NAD skin no rash head ncat lungs coarse upper airway noise. cor reg no rub abd BS+ nontender and soft ext no edema. Objective Data Vital Signs Vital Signs: Vital Signs - 24 hr 02/16/21 18:00 02/16/21 20:00 02/17/21 00:00 Temperature 37.2 C 36.9 C Pulse Rate 103 H 100 94 Respiratory Rate 19 20 Blood Pressure 163/64 H 184/74 H Pulse Oximetry 100 95 02/17/21 04:00 02/17/21 06:00 02/17/21 06:10 Temperature 37.1 C Pulse Rate 98 156 H 120 H Respiratory Rate 26 H Blood Pressure 195/73 H Pulse Oximetry 97 100 02/17/21 06:20 02/17/21 06:40 02/17/21 07:00 Temperature Pulse Rate 119 H 93 85 Respiratory Rate 36 H 19 Blood Pressure Pulse Oximetry 02/17/21 08:00 02/17/21 08:05 02/17/21 10:00 Temperature 36.3 C L Pulse Rate 84 84 74 Respiratory Rate 17 Blood Pressure 134/59 L Pulse Oximetry 97 96 02/17/21 11:13 02/17/21 11:15 02/17/21 12:00 Temperature 36.4 C Pulse Rate 71 71 72 Respiratory Rate 16 16 Blood Pressure 131/90 Pulse Oximetry 99 99 02/17/21 14:00 02/17/21 14:03 02/17/21 14:25 Temperature 36.1 C L 36.1 C L Pulse Rate 68 68 68 Respiratory Rate 16 16 Blood Pressure 124/58 L 122/58 L Pulse Oximetry 99 99 02/17/21 14:30 02/17/21 14:33 02/17/21 15:25 Temperature 36.0 C L 36.2 C L Pulse Rate 67 67 66 Respiratory Rate 16 16 Blood Pressure 121/58 L 120/56 L Pulse Oximetry 99 99 100 02/17/21 15:30 02/17/21 15:45 02/17/21 16:00 Temperature 36.2 C L Puls
[2021-02-17] MEDS: FENTANYL 2,500MCG/NS250ML(*CRX 2,500 MCG/250 ML BAG 20 MCG IV CONT (17:50)
[2021-02-17 19:08] LABS: Hematocrit 27.4 % (42.0-52.0); Hemoglobin 9.1 g/dL (14.0-18.0)
[2021-02-17 19:47] LABS: Vancomycin Random 8.6 ug/mL (10-20)
[2021-02-17] MEDS: ATORVASTATIN 40 MG TABLET 80 MG PO (20:00)
[2021-02-17] MEDS: carvediloL 25 MG TABLET PO (20:01)
[2021-02-17] MEDS: PANTOPRAZOLE SODIUM IV 40 MG VIAL IV PUSH (21:12)
[2021-02-17 21:24] LABS: Glucose Point of Care 78 (65-105)
[2021-02-17 22:49] LABS: Glucose Point of Care 98 (65-105)
[2021-02-18] VITALS (38 sets, daily range): BP systolic 90–197; BP diastolic 49–92; PULSE 66–882; RESP 12–30; TEMP 36–37.1; O2SAT 91–100
[2021-02-18 01:04] LABS: Glucose Point of Care 107 (65-105)
[2021-02-18] MEDS: PROPOFOL IV EMULSION 100 ML 18.09 MG IV CONT (02:40)
[2021-02-18 04:49] LABS: Alveolar/Arterial O2 Gradient 124.7 mmHg; Carboxyhemoglobin 0.5 % THb (0-2.0); Fractional Inspired Oxygen 40 %; HCO3 ABG 28.6 mEq/l (22.0-26.0); Methemoglobin ABG 0.3 %THb (0-1.5); Oxygen Content ABG 12.6 %vol (16.0-22.0); Oxygen Saturation ABG 98.8 % (95.0-100.0); Oxyhemoglobin 97.4 % THb (90.0-100.0); PCO2 ABG 33.7 mmHg (35.0-45.0); PO2 ABG 121.7 mmHg (80.0-100.0); PO2 FiO2 Ratio Arterial Blood 3.04 %; Reduced Hemoglobin 1.8 %THb (0-5.0)
[2021-02-18 04:51] LABS: Hemoglobin 8.5 g/dL (14.0-18.0); Mean Corpuscular HGB Conc 32.7 g/dl (32-36); Mean Corpuscular Volume 88.7 fl (80-100); Mean Platelet Volume 9.8 fl (7.4-10.4); Platelet Count Result 438 k/mm3 (150-375); Red Blood Count 2.93 M/mm3 (4.6-6.20); Red Cell Distribution Width 17.3 % (11.5-14.5)
[2021-02-18 04:53] LABS: Site Drawn RIGHT RADIAL; pH ABG 7.547 (7.350-7.450)
[2021-02-18 04:54] LABS: Arterial Blood Gas PEEP 5 cmH2O; Arterial Blood Gas Tidal Volume 450 ml; Arterial Blood Gas Vent Mode CMV; Arterial Blood Gas Ventilator rate 16 /MIN; Device VENTILATOR; Modified Allen's Test Unable to perform
[2021-02-18 05:38] LABS: Anion Gap 7 mmol/L (8-16); Blood Urea Nitrogen 26 mg/dL (9-20); Calcium 8.3 mg/dL (8.4-10.2); Carbon Dioxide 31 mmol/L (22-30); Chloride 94 mmol/L (98-107); Estimated CRCL calculation 16 ml/min; Estimated Glomerular Filt Rate 16; Glucose 124 mg/dL (75-110); Potassium 4.1 mmol/L (3.4-5.0); Sodium 132 mmol/L (137-145)
[2021-02-18 06:19] LABS: Glucose Point of Care 104 (65-105)
[2021-02-18] MEDS: FENTANYL 2,500MCG/NS250ML(*CRX 2,500 MCG/250 ML BAG 20 MCG IV CONT (06:21)
--- NOTE | 2021-02-18 07:26 | PM.PNNEP ---
Progress Note: A&P Assessment and Plan (1) End stage kidney disease: Code(s): N18.6 - End stage renal disease Status: Deleted Assessment and Plan: Ish has end-stage renal disease. He had dialysis yesterday. (2) Acute respiratory failure: Code(s): J96.00 - Acute respiratory failure, unspecified whether with hypoxia or hypercapnia Status: Acute Assessment and Plan: Likely due to fluid overload. Vent settings doing pretty well. Blood pressure is a bit soft so I am not sure he would tolerate much more fluid off today. His amlodipine is on hold. He is on a lot of carvedilol. I will cut the dose down. He will tolerate more fluid off if his blood pressure is higher. (3) Diabetic foot infection: Code(s): E11.628 - Type 2 diabetes mellitus with other skin complications; L08.9 - Local infection of the skin and subcutaneous tissue, unspecified Status: Deleted Assessment and Plan: The patient has poor wound healing from his transmetatarsal amputation. Surgery has seen the patient. Local wound care ordered. He will return to vascular surgery as an outpatient when more stable. (4) CHF exacerbation: Code(s): I50.9 - Heart failure, unspecified Status: Acute Assessment and Plan: Most likely from his hypertension and fluid intake. He does not make urine so will stop his Lasix. (5) Hyperkalemia: Code(s): E87.5 - Hyperkalemia Status: Resolved Assessment and Plan: His potassium is good today. (6) Diabetes mellitus: Code(s): E11.9 - Type 2 diabetes mellitus without complications Status: Deleted Assessment and Plan: On Accu-Cheks and sliding-scale insulin (7) Hypertension: Qualifiers: Hypertension type: unspecified Qualified Code(s): I10 - Essential (primary) hypertension Code(s): I10 - Essential (primary) hypertension Status: Chronic Assessment and Plan: blood pressure is actually a bit soft. (8) Smoking: Code(s): F17.200 - Nicotine dependence, unspecified, uncomplicated Status: Acute Assessment and Plan: He continues to smoke we have talked many times about trying to quit. Subjective Date/time seen: 02/18/21 07:26 Interval history: Ish is still on the ventilator. On 40% FiO2, minute volume of around 7, peak airway pressure of around 18. He had dialysis yesterday and 3L were removed. Blood pressure is still on the low side today. Review of Systems Review of Systems: ROS unobtainable: Yes unobtainable due to endotracheal tube and unobtainable due to medical condition Exam Narrative: Exam Narrative: WDWN in NAD skin no rash or subcu nodules head ncat lungs coarse upper airway noise. cor reg no rub abd BS+ nontender and soft ext no edema or cyanosis. Objective Data Vital Signs Vital Signs: Vital Signs - 24 hr 02/17/21 08:00 02/17/21 08:05 02/17/21 10:00 Temperature 36.3 C L Pulse Rate 84 84 74 Respiratory Rate 17 Blood Pressure 134/59 L Pulse Oximetry 97 96 02/17/21 11:13 02/17/21 11:15 02/17/21 12:00 Temperature 36.4 C Pulse Rate 71 71 72 Respiratory Rate 16 16 Blood Pressure 131/90 Pulse Oximetry 99 99 02/17/21 14:00 02/17/21 14:03 02/17/21 14:25 Temperature 36.1 C L 36.1 C L Pulse Rate 68 68 68 Respiratory Rate 16 16 Blood Pressure 124/58 L 122/58 L Pulse Oximetry 99 99 02/17/21 14:30 02/17/21 14:33 02/17/21 15:25 Temperature 36.0 C L 36.2 C L Pulse Rate 67 67 66 Respiratory Rate 16 16 Blood Pressure 121/58 L 120/56 L Pulse Oximetry 99 99 100 02/17/21 15:30 02/17/21 15:45 02/17/21 16:00 Temperature 36.2 C L Pulse Rate 66 66 68 Respiratory Rate 16 Blood Pressure 114/55 L 112/54 L 110/56 L Pulse Oximetry 100 02/17/21 16:15 02/17/21 16:25 02/17/21 16:30 Temperature 36.2 C L Pulse Rate 68 68 68 Respiratory Rate 16 Blood Pressure 119/56 L 118/61
[2021-02-18] MEDS: PROPOFOL IV EMULSION 100 ML 14.47 MG IV CONT (07:40)
[2021-02-18] MEDS: HEPARIN SODIUM 5,000 UNITS/ML VIAL 5000 UNITS SUB-Q ×2 (08:52→20:22)
[2021-02-18] MEDS: PANTOPRAZOLE SODIUM IV 40 MG VIAL IV PUSH ×2 (08:52→20:36)
[2021-02-18] MEDS: carvediloL 12.5 MG TABLET PO (08:52)
[2021-02-18] MEDS: FOLIC ACID 1 MG/0.2 ML INJ IV PUSH (08:56)
[2021-02-18] MEDS: THIAMINE HCL 200 MG/2 ML VIAL 100 MG IV PUSH (08:57)
[2021-02-18 09:09] LABS: Glucose Point of Care 212 (65-105)
[2021-02-18] MEDS: INSULIN ASPART (*BKC) 100 UNITS/ML SUB-Q ×3 (09:16→20:19)
[2021-02-18] MEDS: INSULIN GLARGINE (*BKC) 100 UNITS/ML 12 UNITS SUB-Q ×2 (09:21→20:20)
--- NOTE | 2021-02-18 09:28 | WPDINTPN ---
Progress Note: A&P Assessment and Plan (1) Acute respiratory failure: Code(s): J96.00 - Acute respiratory failure, unspecified whether with hypoxia or hypercapnia Status: Acute Assessment and Plan: Acute Respiratory failure secondary to flash pulmonary edema due to noncompliance with dialysis, diet, fluid restriction and other medication regimen. Intubated 02/15 HD 02/15 extubated 02/16 -> reintubated 02/17 He is already on broad-spectrum antibiotics which should cover for any pneumonia too. ABG and chest x-ray reviewed Patient was hemodialyzed yesterday Will plan to do pressure support ventilation trial and extubate of possible (2) Diabetic foot infection: Code(s): E11.628 - Type 2 diabetes mellitus with other skin complications; L08.9 - Local infection of the skin and subcutaneous tissue, unspecified Status: Deleted Assessment and Plan: He is 12 days post-op from a left transmetatarsal amputation and left common femoral endarterectomy with left femoral to below-knee popliteal artery bypass. The medial thigh and lower leg incisions are healing well with madeleine intact. There is firm, dry necrosis at the transmetatarsal amputation incision. Patient was started empirically on Zosyn and vancomycin. Blood cultures growing out ESBL. Will switch antibiotics to ertapenem Surgery has been consulted and they do not feel that foot looks infected and recommend local wound care If recommended by surgery for any surgical intervention, patient will be transferred back to [facility] where he had vascular surgery recently He has PAD and had recent vascular surgery. Antiplatelet drugs will be continued (3) CHF exacerbation: Code(s): I50.9 - Heart failure, unspecified Status: Acute Assessment and Plan: Plan to remove fluid with hemodialysis Strict intake output record and daily weight. Patient noncompliant (4) Elevated troponin: Code(s): R77.8 - Other specified abnormalities of plasma proteins Status: Acute Assessment and Plan: Patient has chronically elevated troponin level due to CHF and end-stage renal disease. The level was infected lower than what it has been in the past Continue coronary artery disease treatment Off heparin infusion (5) CAD (coronary artery disease): Code(s): I25.10 - Atherosclerotic heart disease of [place] coronary artery without angina pectoris Status: Acute Assessment and Plan: Continue his cardiac regimen with aspirin Lipitor and Brilinta. Hold carvedilol due to soft blood pressure (6) ESRD (end stage renal disease) on dialysis: Code(s): N18.6 - End stage renal disease; Z99.2 - Dependence on renal dialysis Status: Chronic Assessment and Plan: Nephrology is following. Dialysis as per nephrology service. (7) IDDM (insulin dependent diabetes mellitus): Status: Chronic Assessment and Plan: Uncontrolled Insulin drip was changed to sliding scale Continue Lantus (8) Bacteremia: Code(s): R78.81 - Bacteremia Status: Acute Assessment and Plan: Patient's blood cultures are growing ESBL E coli. Switch antibiotics to ertapenem. Discussed with pharmacy and they will adjust the dose as per his renal function (9) Anemia: Code(s): D64.9 - Anemia, unspecified Status: Acute Assessment and Plan: Hemoglobin dropped from 7.6-6 02/17 patient received 2 units of packed red cells Continue PPI No obvious source of bleed at this time Continue antiplatelet drugs for now Monitor Additional Plan DVT prophylaxis -SC heparin Stress ulcer prophylaxis -PPI Nutrition -hold tube feeds for breathing trial Code Status - Full Code Critical Care Time -30 minutes Due to a high probability of clinically significant, life threatening deterioration, the patient required my highest level of preparedness to intervene emergently and I personally spent this critical care time directly and pe
[2021-02-18 09:44] LABS: Alveolar/Arterial O2 Gradient 151.4 mmHg; Base Excess ABG 5.1 mEq/l (+/-2.0); Fractional Inspired Oxygen 40 %; HCO3 ABG 26.7 mEq/l (22.0-26.0); Oxygen Saturation ABG 98.4 % (95.0-100.0); Oxyhemoglobin 97.3 % THb (90.0-100.0); PCO2 ABG 28.8 mmHg (35.0-45.0); PO2 ABG 100.7 mmHg (80.0-100.0); PO2 FiO2 Ratio Arterial Blood 2.52 %; Total Hemoglobin 10.1 g/dL (12.0-18.0)
[2021-02-18 09:47] LABS: Arterial Blood Gas PEEP 5 cmH2O; Arterial Blood Gas Vent Mode SPONTANEOUS; Device VENTILATOR; Modified Allen's Test Pass; Site Drawn RIGHT RADIAL; pH ABG 7.585 (7.350-7.450)
[2021-02-18 09:48] LABS: Arterial Blood Gas Pressure Support 5 cmH2O
[2021-02-18] MEDS: HYDROmorphone HCL INJ (*CRX) 1 MG/ML SYR IV PUSH ×3 (11:14→21:01)
[2021-02-18] MEDS: ERTAPENEM SODIUM 0.5 GM in SODIUM CHLORIDE 0.9% IV 50 ML IVPB (11:16)
--- NOTE | 2021-02-18 11:34 | PCDIET ---
ICU Rounding Note: Patient extubated. MD advancing to renal diet today. Last recorded weight is 57.9kg which is down from last review. -I/O. Patient had 3.5L UF yesterday. Bowel Motility: Last documented BM on 02/16/21 x 1. Labs Reviewed: Hgb (8.5), Hct (26.0), Glu (124), BUN (26), Cr (3.90), Na (132), Ca (8.3) Meds Noted: Lipitor, Coreg, Ertapenem, Folic Acid, Lantus, Protonix, Thiamine Additional Notes: Surgical sites to left groin, left calf and left foot. Following daily in ICU rounds. Assessing/reassessing every Monday/Monday.
[2021-02-18 12:48] LABS: Glucose Point of Care 160 (65-105)
[2021-02-18 12:48] LABS: Glucose Point of Care 184 (65-105)
--- NOTE | 2021-02-18 14:15 | PM.IMPN ---
Progress Note: A&P Assessment and Plan (1) Acute respiratory failure: Code(s): J96.00 - Acute respiratory failure, unspecified whether with hypoxia or hypercapnia Status: Acute Assessment and Plan: Secondary to volume overload due to noncompliance with dialysis and his medication regimen. Cannot rule out pneumonia.empircally started on vancomycin and zosyn. extuated successfullly this am 02/16 reintubated again 02/17. on pressure support wean trial. per flat grinder operator (2) CHF exacerbation: Code(s): I50.9 - Heart failure, unspecified Status: Acute Assessment and Plan: Secondary to noncompliance as detailed above. Patient underwent dialysis 02/15. underwent dialysis 02/17 (3) End-stage renal disease on hemodialysis: Code(s): N18.6 - End stage renal disease; Z99.2 - Dependence on renal dialysis Status: Acute Assessment and Plan: Patient has a history of noncompliance and missed dialysis sessions. (4) Metabolic acidosis: Code(s): E87.2 - Acidosis Status: Chronic Assessment and Plan: Due to a combination of lactic acidosis and renal disease. Repeat lactic acid has normalized. (5) Amputation of left forefoot: Code(s): S98.912A - Complete traumatic amputation of left foot, level unspecified, initial encounter Status: Acute Assessment and Plan: Patient is status post left forefoot amputation at [facility] within the last several weeks. on empiric vanc and zosyn. gen surgery consulted. appreciate their recs. (6) Electrolyte abnormality: Code(s): E87.8 - Other disorders of electrolyte and fluid balance, not elsewhere classified Status: Acute Assessment and Plan: Including moderate hyponatremia and mild hyperkalemia among others. poliior. 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 Continue basal insulin. Initiate sliding scale insulin, Accu-Cheks, and hypoglycemic protocol. (8) Noncompliance: Code(s): Z91.19 - Patient's noncompliance with other medical treatment and regimen Status: Acute Assessment and Plan: An ongoing issue with this patient, unfortunately. (9) Hypertension: Qualifiers: Hypertension type: unspecified Qualified Code(s): I10 - Essential (primary) hypertension Code(s): I10 - Essential (primary) hypertension Status: Chronic Assessment and Plan: Blood pressure was 255/121 on arrival to the emergency department. Initially started on nitropaste and propofol with a drop in pressures. currently off these and stable. likele levated due to volume overload (10) Coronary artery disease: Qualifiers: Coronary Disease-Associated Artery/Lesion type: [place] artery [place] vs. transplanted heart: [place] heart Associated angina: without angina Qualified Code(s): I25.10 - Atherosclerotic heart disease of [place] coronary artery without angina pectoris Code(s): I25.10 - Atherosclerotic heart disease of [place] coronary artery without angina pectoris Status: Acute Assessment and Plan: Troponin is a bit elevated likely due to a combination of factors and less likely acute coronary syndrome. No workup planned unless troponin jumps exponentially. Continue dual anti-platelet therapy and statin. Beta-graciela currently on hold given soft blood pressures. (11) Tobacco dependence: Code(s):
[2021-02-18] MEDS: LORazepam (*CRX) 0.5 MG TABLET PO (14:28)
[2021-02-18] MEDS: NICOTINE (*PBKC) 14 MG PATCH 1 PATCH TRANSDERM (15:22)
[2021-02-18 17:22] LABS: Glucose Point of Care 213 (65-105)
[2021-02-18 19:55] LABS: Hepatitis B Surface Antigen Negative (Negative)
[2021-02-18] MEDS: ATORVASTATIN 40 MG TABLET 80 MG PO (20:24)
[2021-02-18 20:32] LABS: Glucose Point of Care 256 (65-105)
[2021-02-18 20:41] LABS: Hepatitis B Surface Anti Res Indeterminate
[2021-02-18 21:18] LABS: Hepatitis B Surface Antigen 0.08 S/C
[2021-02-18] MEDS: hydrALAZINE HCL 20 MG/ML VIAL IV PUSH (21:54)
[2021-02-18] MEDS: WATER, STERILE FOR INJECTION 10 ML VIAL XX (21:55)
[2021-02-18] MEDS: HYDROcodone/acetaminophen (*CRX) 10-325 MG TABLET 1 TAB PO (22:14)
[2021-02-19] VITALS (21 sets, daily range): BP systolic 123–166; BP diastolic 54–80; PULSE 87–104; RESP 14–20; TEMP 36.6–37.3; O2SAT 94–100
[2021-02-19] MEDS: HYDROmorphone HCL INJ (*CRX) 1 MG/ML SYR IV PUSH ×5 (00:06→21:33)
[2021-02-19 00:22] LABS: Glucose Point of Care 157 (65-105)
[2021-02-19] MEDS: hydrALAZINE HCL 20 MG/ML VIAL IV PUSH ×2 (02:51→14:41)
[2021-02-19] MEDS: HYDROcodone/acetaminophen (*CRX) 10-325 MG TABLET 1 TAB PO ×4 (02:52→19:14)
[2021-02-19] MEDS: INSULIN ASPART (*BKC) 100 UNITS/ML SUB-Q ×4 (04:54→20:23)
[2021-02-19 04:56] LABS: Hematocrit 30.1 % (42.0-52.0); Hemoglobin 9.8 g/dL (14.0-18.0); Mean Corpuscular HGB Conc 32.6 g/dl (32-36); Mean Corpuscular Hemoglobin 29.2 pg (26-34); Mean Corpuscular Volume 89.6 fl (80-100); Platelet Count Result 510 k/mm3 (150-375); Red Blood Count 3.36 M/mm3 (4.6-6.20); Red Cell Distribution Width 17.4 % (11.5-14.5); White Blood Count 19.2 K/mm3 (4.5-10.0)
[2021-02-19 04:59] LABS: Glucose Point of Care 223 (65-105)
[2021-02-19 05:22] LABS: Alveolar/Arterial O2 Gradient 43.5 mmHg; Base Excess ABG 1.7 mEq/l (+/-2.0); Carboxyhemoglobin 0.6 % THb (0-2.0); Fractional Inspired Oxygen 21 %; HCO3 ABG 25.3 mEq/l (22.0-26.0); Methemoglobin ABG 0.3 %THb (0-1.5); Oxygen Content ABG 13.6 %vol (16.0-22.0); Oxygen Saturation ABG 93.7 % (95.0-100.0); Oxyhemoglobin 91.9 % THb (90.0-100.0); PCO2 ABG 35.5 mmHg (35.0-45.0); PO2 ABG 63.7 mmHg (80.0-100.0); PO2 FiO2 Ratio Arterial Blood 3.03 %; Reduced Hemoglobin 7.2 %THb (0-5.0); Total Hemoglobin 10.5 g/dL (12.0-18.0)
[2021-02-19 05:23] LABS: Device ROOM AIR; Modified Allen's Test Pass; Site Drawn RIGHT RADIAL
[2021-02-19 05:27] LABS: Albumin Level 3.4 g/dL (3.5-5.1); Anion Gap 14 mmol/L (8-16); Blood Urea Nitrogen 46 mg/dL (9-20); Carbon Dioxide 27 mmol/L (22-30); Chloride 91 mmol/L (98-107); Estimated CRCL calculation 9 ml/min; Estimated Glomerular Filt Rate 9; Glucose 242 mg/dL (75-110); Potassium 4.3 mmol/L (3.4-5.0); Sodium 132 mmol/L (137-145)
--- NOTE | 2021-02-19 08:33 | PCWOUND ---
WOCN NOTE Received a referral for wound care to right foot. right side is BKA. surgery was done on left foot and is being managed by the surgeon Dr Brandyn Ospina.
[2021-02-19] MEDS: HEPARIN SODIUM 5,000 UNITS/ML VIAL 5000 UNITS SUB-Q ×2 (08:37→20:19)
[2021-02-19 08:38] LABS: Glucose Point of Care 289 (65-105)
[2021-02-19] MEDS: TICAGRELOR 90 MG TABLET PO ×2 (08:39→20:15)
[2021-02-19] MEDS: PANTOPRAZOLE SODIUM IV 40 MG VIAL IV PUSH ×2 (08:41→20:19)
[2021-02-19] MEDS: FOLIC ACID 1 MG/0.2 ML INJ IV PUSH (08:41)
[2021-02-19] MEDS: THIAMINE HCL 200 MG/2 ML VIAL 100 MG IV PUSH (08:41)
[2021-02-19] MEDS: ERTAPENEM SODIUM 0.5 GM in SODIUM CHLORIDE 0.9% IV 50 ML IVPB (08:46)
[2021-02-19] MEDS: amLODIPine BESYLATE 5 MG TABLET PO (08:46)
--- NOTE | 2021-02-19 08:48 | WPDINTPN ---
Progress Note: A&P Assessment and Plan (1) Acute respiratory failure: Code(s): J96.00 - Acute respiratory failure, unspecified whether with hypoxia or hypercapnia Status: Acute Assessment and Plan: Acute Respiratory failure secondary to flash pulmonary edema due to noncompliance with dialysis, diet, fluid restriction and other medication regimen. Intubated 02/15 HD 02/15 extubated 02/16 -> reintubated 02/17 Patient was extubated yesterday after a successful weaning trial Saturating well on room air ABG and chest x-ray reviewed Patient was hemodialyzed yesterday Incentive spirometry and up in chair today (2) Diabetic foot infection: Code(s): E11.628 - Type 2 diabetes mellitus with other skin complications; L08.9 - Local infection of the skin and subcutaneous tissue, unspecified Status: Deleted Assessment and Plan: He is 12 days post-op from a left transmetatarsal amputation and left common femoral endarterectomy with left femoral to below-knee popliteal artery bypass. The medial thigh and lower leg incisions are healing well with madeleine intact. There is firm, dry necrosis at the transmetatarsal amputation incision. Patient was started empirically on Zosyn and vancomycin. Blood cultures growing out ESBL. Will switch antibiotics to ertapenem Surgery has been consulted and is swallowing. Surgeon does not feel that foot looks infected and recommend local wound care If recommended by surgery for any surgical intervention, patient will be transferred back to [facility] where he had vascular surgery recently He has PAD and had recent vascular surgery. Antiplatelet drugs will be continued (3) CHF exacerbation: Code(s): I50.9 - Heart failure, unspecified Status: Acute Assessment and Plan: Improved after patient was again ultrafiltrate yesterday and additional fluid was removed Strict intake output record and daily weight. Patient noncompliant diet and fluid restrictions. I encouraged patient to limit his fluid intake and salt intake (4) Elevated troponin: Code(s): R77.8 - Other specified abnormalities of plasma proteins Status: Acute Assessment and Plan: Patient has chronically elevated troponin level due to CHF and end-stage renal disease. The level was infected lower than what it has been in the past Continue coronary artery disease treatment Off heparin infusion (5) CAD (coronary artery disease): Code(s): I25.10 - Atherosclerotic heart disease of [place] coronary artery without angina pectoris Status: Acute Assessment and Plan: Continue his cardiac regimen with aspirin Lipitor and Brilinta. Continue carvedilol (6) ESRD (end stage renal disease) on dialysis: Code(s): N18.6 - End stage renal disease; Z99.2 - Dependence on renal dialysis Status: Chronic Assessment and Plan: Nephrology is following. Dialysis as per nephrology service. He was ultrafiltrated yesterday (7) IDDM (insulin dependent diabetes mellitus): Status: Chronic Assessment and Plan: Uncontrolled Continue sliding scale Continue Lantus but will increase dose to 15 units subcu q.12 hours (8) Bacteremia: Code(s): R78.81 - Bacteremia Status: Acute Assessment and Plan: Patient's blood cultures are growing ESBL E coli. Continue ertapenem. Will consult infectious disease service for guidance on duration of therapy and if antibiotics can be switched to p.o. on discharge (9) Anemia: Code(s): D64.9 - Anemia, unspecified Status: Acute Assessment and Plan: Hemoglobin dropped from 7.6-6 4/ patient received 2 units of packed red cells Continue PPI No obvious source of bleed at this time Hemoglobin stable at this time Continue antiplatelet drugs for now Monitor Additional Plan DVT prophylaxis -SC heparin Stress ulcer prophylaxis -PPI Nutrition -renal diet Code Status - Full Code Transfer out of ICU today Subj
[2021-02-19] MEDS: INSULIN GLARGINE (*BKC) 100 UNITS/ML 15 UNITS SUB-Q ×2 (08:53→20:25)
--- NOTE | 2021-02-19 09:11 | PM.PNNEP ---
Progress Note: A&P Assessment and Plan (1) End stage kidney disease: Code(s): N18.6 - End stage renal disease Status: Deleted Assessment and Plan: Ish has end-stage renal disease. He is due for dialysis today (2) Acute respiratory failure: Code(s): J96.00 - Acute respiratory failure, unspecified whether with hypoxia or hypercapnia Status: Acute Assessment and Plan: Likely due to fluid overload. he improved after removing fluid yesterday with dry ultrafiltration. (3) Diabetic foot infection: Code(s): E11.628 - Type 2 diabetes mellitus with other skin complications; L08.9 - Local infection of the skin and subcutaneous tissue, unspecified Status: Deleted Assessment and Plan: The patient has poor wound healing from his transmetatarsal amputation. Surgery has seen the patient. Local wound care ordered. He will return to vascular surgery as an outpatient when more stable. (4) CHF exacerbation: Code(s): I50.9 - Heart failure, unspecified Status: Acute Assessment and Plan: Most likely from his hypertension and fluid intake. (5) Hyperkalemia: Code(s): E87.5 - Hyperkalemia Status: Resolved Assessment and Plan: His potassium is good today. (6) Diabetes mellitus: Code(s): E11.9 - Type 2 diabetes mellitus without complications Status: Deleted Assessment and Plan: On Accu-Cheks and sliding-scale insulin (7) Hypertension: Qualifiers: Hypertension type: unspecified Qualified Code(s): I10 - Essential (primary) hypertension Code(s): I10 - Essential (primary) hypertension Status: Chronic Assessment and Plan: blood pressure Is higher now that he is not sedated. folding in blood pressure meds again. (8) Smoking: Code(s): F17.200 - Nicotine dependence, unspecified, uncomplicated Status: Acute Assessment and Plan: He continues to smoke we have talked many times about trying to quit. Subjective Date/time seen: 02/20/21 10:11 Interval history: Late entry. Ish Is off the ventilator now. He is comfortable on room air. Girlfriend is in the room. Ish is stressed out and sad. Vijay from pastoral care came by but Ish says that there are personality differences. Review of Systems Cardiovascular: Cardiovascular: Reports no additional cardiovascular complaints Respiratory: Respiratory: Reports no additional respiratory complaints Gastrointestinal: Gastrointestinal: Reports no additional gastrointestinal complaints Genitourinary: Genitourinary: Reports no additional male genitourinary complaints Exam Narrative: Exam Narrative: WDWN in NAD skin no rash or subcu nodules head ncat lungs coarse upper airway noise. cor reg no rub Or gallop abd BS+ nontender and soft ext no edema or cyanosis. Objective Data Vital Signs Vital Signs: Vital Signs - 24 hr 02/19/21 12:00 02/19/21 14:00 02/19/21 20:00 Temperature 36.7 C Pulse Rate 93 96 98 Respiratory Rate 18 15 Blood Pressure 160/78 H 166/80 H Pulse Oximetry 100 99 02/19/21 20:15 02/19/21 21:20 02/19/21 21:48 Temperature 37.0 C 36.8 C Pulse Rate 98 99 94 Respiratory Rate 16 20 18 Blood Pressure 142/54 H 150/75 H Pulse Oximetry 94 98 02/19/21 22:00 02/19/21 22:15 02/19/21 22:30 Temperature 37.0 C Pulse Rate 99 92 92 Respiratory Rate 20 Blood Pressure 142/54 H 158/71 H 143/70 H Pulse Oximetry 98 02/19/21 22:45 02/19/21 23:00 02/19/21 23:15 Temperature Pulse Rate 93 96 98 Respiratory Rate Blood Pressure 124/55 L 136/60 128/56 L Pulse Oximetry 02/19/21 23:30 02/19/21 23:45 02/20/21 00:00 Temperature Pulse Rate 89 87 86 Respiratory Rate Blood Pressure 123/58 L 123/59 L 121/58 L Pulse Oximetry 02/20/21 00:15 02/20/21 00:30 02/20/21 00:45 Temperature Pulse Rate 82 81 80 Respiratory Rate Blood
[2021-02-19] MEDS: NICOTINE (*PBKC) 14 MG PATCH 1 PATCH TRANSDERM (10:59)
--- NOTE | 2021-02-19 11:39 | PCDIET ---
Nutrition Follow-Up Complete: Nutrition Diagnosis: Inadequate oral intake related to oral intubation as evidenced by need for NG tube feedings. Nutrition Goal: Patient to meet estimated nutritional needs. Goal in progress. Patient reports tolerating renal dialysis diet without issues. Last recorded weight is 53.5 kg which is down from last review. -I/O. Patient had 3.4L UF on 02/17/21. Bowel Motility: Last documented BM on 02/16/21. Labs Reviewed: Hgb (9.8), Hct (30.1), Glu (242), BUN (46), Cr (6.4), Na (132), Alb (3.4) Meds Noted: [place], Ertapenem, Lipitor, Folic Acid, Coreg, Hydralazine, Novolog, Lantus, Protonix, Thiamine Additional Notes: No change in skin reported. Will continue to monitor with same goal. Nutrition Monitoring and Evaluation: Follow up every 3 days.
[2021-02-19 12:46] LABS: Glucose Point of Care 278 (65-105)
--- NOTE | 2021-02-19 13:07 | PM.IMPN ---
Progress Note: A&P Assessment and Plan (1) Acute respiratory failure: Code(s): J96.00 - Acute respiratory failure, unspecified whether with hypoxia or hypercapnia Status: Acute Assessment and Plan: Secondary to volume overload due to noncompliance with dialysis and his medication regimen. Cannot rule out pneumonia.empircally started on vancomycin and zosyn. extuated successfullly this am 02/16 reintubated again 02/17. on pressure support wean trial. per production support consultant (2) CHF exacerbation: Code(s): I50.9 - Heart failure, unspecified Status: Acute Assessment and Plan: Secondary to noncompliance as detailed above. Patient underwent dialysis 02/15. underwent dialysis 02/17 (3) End-stage renal disease on hemodialysis: Code(s): N18.6 - End stage renal disease; Z99.2 - Dependence on renal dialysis Status: Acute Assessment and Plan: Patient has a history of noncompliance and missed dialysis sessions. (4) Metabolic acidosis: Code(s): E87.2 - Acidosis Status: Chronic Assessment and Plan: Due to a combination of lactic acidosis and renal disease. Repeat lactic acid has normalized. (5) Amputation of left forefoot: Code(s): S98.912A - Complete traumatic amputation of left foot, level unspecified, initial encounter Status: Acute Assessment and Plan: Patient is status post left forefoot amputation at [facility] within the last several weeks. on empiric vanc and zosyn. gen surgery consulted. appreciate their recs. (6) Electrolyte abnormality: Code(s): E87.8 - Other disorders of electrolyte and fluid balance, not elsewhere classified Status: Acute Assessment and Plan: Including moderate hyponatremia and mild hyperkalemia among others. poliior. (7) Type 1 diabetes mellitus: Qualifiers: Chronic kidney disease stage: on chronic dialysis Diabetes mellitus complication detail: with chronic kidney disease Diabetes mellitus complication status: with kidney complications Qualified Code(s): E10.22 - Type 1 diabetes mellitus with diabetic chronic kidney disease; N18.6 - End stage renal disease; Z99.2 - Dependence on renal dialysis Code(s): E10.9 - Type 1 diabetes mellitus without complications Status: Chronic Assessment and Plan: Hemoglobin A1c was 8.7% on 01/13/2021. Continue basal insulin. Initiate sliding scale insulin, Accu-Cheks, and hypoglycemic protocol. (8) Noncompliance: Code(s): Z91.19 - Patient's noncompliance with other medical treatment and regimen Status: Acute Assessment and Plan: An ongoing issue with this patient, unfortunately. (9) Hypertension: Qualifiers: Hypertension type: unspecified Qualified Code(s): I10 - Essential (primary) hypertension Code(s): I10 - Essential (primary) hypertension Status: Chronic Assessment and Plan: Blood pressure was 255/121 on arrival to the emergency department. Initially started on nitropaste and propofol with a drop in pressures. currently off these and stable. likele levated due to volume overload (10) Coronary artery disease: Qualifiers: Associated angina: without angina Coronary Disease-Associated Artery/Lesion type: [place] artery [place] vs. transplanted heart: [place] heart Qualified Code(s): I25.10 - Atherosclerotic heart disease of [place] coronary artery without angina pectoris Code(s): I25.10 - Atherosclerotic heart disease of [place] coronary artery without angina pectoris Status: Acute Assessment and Plan: Troponin is a bit elevated likely due to a combination of factors and less likely acute coronary syndrome. No workup planned unless troponin jumps exponentially. Continue dual anti-platelet therapy and statin. Beta-graciela currently on hold given soft blood pressures. (11) Tobacco dependence: Code(s):
--- NOTE | 2021-02-19 14:30 | WPDINFPN2 ---
Progress Note: A&P Assessment and Plan (1) Bacteremia: Code(s): R78.81 - Bacteremia Status: Acute Assessment and Plan: E coli bacteremia, left foot source REC ertapenem #1, I think he requires BKA sooner rather than later, here or at [facility]. IV therapy anticipated for 10 days after BKA performed. Subjective Date/time seen: 02/19/21 14:30 Objective Data Vital Signs Vital Signs: Vital Signs - 24 hr 02/18/21 16:00 02/18/21 18:00 02/18/21 19:44 Temperature Pulse Rate 103 H 98 94 Respiratory Rate 17 16 Blood Pressure 169/92 H 171/76 H 167/69 H Pulse Oximetry 99 100 02/18/21 20:00 02/18/21 20:15 02/18/21 20:20 Temperature Pulse Rate 95 98 96 Respiratory Rate Blood Pressure 193/76 H 174/85 H 169/72 H Pulse Oximetry 02/18/21 20:45 02/18/21 21:00 02/18/21 21:15 Temperature 37.1 C Pulse Rate 96 97 96 Respiratory Rate 26 H Blood Pressure 189/82 H 189/82 H 186/76 H Pulse Oximetry 97 02/18/21 21:30 02/18/21 21:45 02/18/21 22:00 Temperature Pulse Rate 114 H 109 H 101 H Respiratory Rate 25 H Blood Pressure 197/82 H 190/79 H 179/77 H Pulse Oximetry 100 02/18/21 22:30 02/18/21 23:00 02/18/21 23:15 Temperature 37.1 C Pulse Rate 104 H 102 H Respiratory Rate 30 H Blood Pressure 179/77 H 185/72 H 142/53 H Pulse Oximetry 02/19/21 00:00 02/19/21 02:00 02/19/21 04:00 Temperature 37.1 C Pulse Rate 94 90 99 Respiratory Rate 18 19 Blood Pressure 149/59 H 154/62 H Pulse Oximetry 98 98 02/19/21 04:30 02/19/21 08:00 02/19/21 08:51 Temperature 36.7 C 36.6 C Pulse Rate 95 100 88 Respiratory Rate 14 20 18 Blood Pressure 157/56 H 162/68 H Pulse Oximetry 98 99 98 02/19/21 10:00 02/19/21 12:00 Temperature 36.7 C Pulse Rate 104 H 93 Respiratory Rate 15 18 Blood Pressure 153/67 H 160/78 H Pulse Oximetry 96 100 Intake/Output Intake/Output: Intake & Output 02/16/21 02/17/21 02/18/21 02/19/21 23:59 23:59 23:59 23:59 Intake Total 914 2420 1167 490 Output Total 460 3500 3400 160 Balance 031 -7753 -5465 330 Meds/Results Medications: Active Medications Generic Name Dose Route Start Last Admin Trade Name Freq PRN Reason Stop Dose Admin Hydrocodone Bitart/Acetaminophen 1 tab 02/16/21 09:24 Hydrocodone/Acetaminophen (*Crx) 5-325 Mg Tablet PO Q4H PRN Pain Rated 4-6 Hydrocodone Bitart/Acetaminophen 1 tab 02/16/21 09:24 02/19/21 14:26 Hydrocodone/Acetaminophen (*Crx) 10-325 Mg Tablet PO 1 tab Q4H PRN Administration Pain Rated 7-10 Amlodipine Besylate 5 mg 02/17/21 05:05 02/19/21 08:46 Amlodipine Besylate 5 Mg Tablet PO 5 mg DAILY MARTHA Administration Aspirin 81 mg 02/17/21 08:00 02/17/21 09:35 Aspirin 81 Mg Chewable Tablet PO 81 mg DAILY@0800 MARTHA Administration Atorvastatin Calcium 80 mg 02/15/21 21:00 02/18/21 20:24 Atorvastatin 40 Mg Tablet PO 80 mg HS MARTHA Administration Carvedilol 12.5 mg 02/18/21 09:00 02/18/21 08:52 Carvedilol 12.5 Mg Tablet PO 12.5 mg Q12HR MARTHA Administration Dextrose 12.5 gm 02/15/21 12:33 02/17/21 12:50 Dextrose 50% 25 Gm/50 Ml Syringe IV PUSH 12.5 gm PRN PRN Administration Hypoglycemia Protocol Folic Acid 1 mg 02/15/21 09:00 02/19/21 08:41 Folic Acid 1 Mg/0.2 Ml Inj IV PUSH 1 mg QAM MARTHA Administration Glucagon 1 mg 02/15/21 12:33 Glucagon For Inj 1 Mg Vial IM PRN PRN Hypoglycemia Protocol Glucose 15 gm 02/15/21 12:33 Glucose Oral Gel 15 Gm Of Glucse In 37.5 Gm Tube PO PRN PRN Hypoglycemia Protocol Heparin Sodium (Porcine) 5,000 units 02/16/21 21:00 02/19/21 08:37 Heparin Sodium 5,000 Units/Ml Vial SUB-Q 5,000 units Q12HR MARTHA Administration Hydralazine HCl 20 mg 02/18/21 10:05 02/19/21 02:51 Hydralazine Hcl 20 Mg/Ml Vial IV PUSH 20 mg Q4H PRN Administration SBP > 160 Hydromorphone HCl 1 mg 02/18/21 10:42
--- NOTE | 2021-02-19 16:00 | PC.NURSE ---
This patient, Ish Corley, was transferred to [Critical access hospital ] on 02/19/21 at 1350. Personal belongings sent with patient. Report given to [Reyna]. Appropriate documentation sent with patient.
[2021-02-19 16:49] LABS: Glucose Point of Care 162 (65-105)
[2021-02-19] MEDS: SERTRALINE HCL 50 MG TABLET 100 MG PO (16:55)
[2021-02-19] MEDS: ONDANSETRON INJ 4 MG/2 ML VIAL IV PUSH (17:03)
[2021-02-19] MEDS: ATORVASTATIN 40 MG TABLET 80 MG PO (20:16)
--- NOTE | 2021-02-19 20:18 | CONS_ITS ---
DATE OF CONSULTATION: 02/19/2021 REASON FOR CONSULTATION: Bacteremia. HISTORY OF PRESENT ILLNESS: A 55-year-old male with chronic renal failure, on dialysis via a left upper arm fistula. He also has longstanding diabetes mellitus. He has never had previous bloodstream infection that he is aware of and has never had E coli infection he is aware of. He has known peripheral vascular disease and was at [facility] in January. About 2 weeks ago, he had vascular bypass surgery, and at the same time or soon thereafter transmetatarsal amputation. He was on antibiotics while there, but no antibiotics at the time of discharge. He presented to this hospital on February 15. He came to the emergency room here with shortness of breath. Here he was found to have pulmonary edema and has been receiving hemodialysis. Blood cultures collected on admission, 1 out of 2 sets has ESBL producing E. coli and consultation requested. He has been started on ertapenem yesterday. The patient has significant pain in the foot, not really improved after his bypass surgery. Further review of records indicates that his operations were performed on the same day, February 04, thus he is postop day #15 today. The patient had no pre-existing fever, chills, or sweats. His breathing has improved significantly. ALLERGIES: SCOPOLAMINE. MEDICATIONS: List reviewed, extensive. No immunosuppressants. HABITS: Alcohol to excess and 1 pack per day smoker. PAST MEDICAL HISTORY: In addition to the above, right BKA in November 2019, spinal surgery, coronary stents, endoscopy, hemorrhoid and cataract repairs. There is known type 1 diabetes mellitus, vitamin D deficiency, [place], seizure disorder, renal osteodystrophy, hypertension, GERD, PUD, depression, anxiety, bradycardic, cardiac arrest in July last year BPH, anxiety. REVIEW OF SYSTEMS: He continues to make some urine and he has no voiding complaints. He has malaise. 14-point review otherwise negative. SOCIAL HISTORY: He is retired, lives in [place], disabled, . His is at the bedside. The patient explicitly allows conversations with her regarding the patient's health. FAMILY HISTORY: Not pertinent to his present illness. PHYSICAL EXAMINATION: GENERAL: Thin but not cachectic male, who appears much older than his actual age. No respiratory distress, on room air, he was mildly hypothermic on admission and since arrival, no fever. VITAL SIGNS: 166/80, 15, 96, 99%. SKIN: Ecchymoses, venous stasis. NODES: No cervical adenopathy. EENT: The conjunctivae are normal. Pupils equal, round. The oral mucosa is well hydrated. NECK: No masses, thyromegaly, or meningismus. LUNGS: Mildly diminished breath sounds, otherwise clear to auscultation and percussion. CARDIAC: Regular rate and rhythm. No murmur or gallop. Unable to palpate dorsalis pedis pulse on the left. Radial pulses are 1+ and equal. ABDOMEN: Nondistended, soft. No organomegaly. No masses. EXTREMITIES: Right BKA has no evidence of infection. On the left, he has a TMA stapled incision line with dark discoloration at the wound edges suggesting early necrosis or skin hemorrhage. For several centimeters proximally, both dorsally and plantar, he has less marked subcutaneous and cutaneous purplish discoloration. There is no crepitus. No tenderness. Does have erythema throughout the forefoot and midfoot as well as edema. LABORATORY DATA: Blood cultures as above. Prior blood cultures, January 29, no growth final. His white blood cell count 24.5 on admission, 19.2 today, hemoglobin 9.8, platelets are 510. No differential repeated, earlier it was minimal left shift. His blood gases, 7.47, 36, 64, 25, 94% on room air. He has hyponatremia. BUN 46, creatinine 6.4. Accu
[2021-02-19 21:20] LABS: Glucose Point of Care 387 (65-105)
--- NOTE | 2021-02-19 21:54 | PC.NURSE ---
2130 TO DIALYSIS PER BED
[2021-02-19 23:51] LABS: Vancomycin Random 16.8 ug/mL (10-20)
[2021-02-20] VITALS (13 sets, daily range): BP systolic 116–158; BP diastolic 45–71; PULSE 80–99; RESP 18–21; TEMP 36.5–36.8; O2SAT 95–100
[2021-02-20] MEDS: HYDROmorphone HCL INJ (*CRX) 1 MG/ML SYR IV PUSH ×3 (01:35→10:38)
[2021-02-20 01:39] LABS: Glucose Point of Care 172 (65-105)
--- NOTE | 2021-02-20 01:45 | PC.NURSE ---
RETURNED FROM DIALYSIS 0120
[2021-02-20] MEDS: HYDROcodone/acetaminophen (*CRX) 10-325 MG TABLET 1 TAB PO ×2 (04:17→09:43)
[2021-02-20 05:07] LABS: Glucose Point of Care 174 (65-105)
[2021-02-20 05:31] LABS: Hematocrit 28.9 % (42.0-52.0); Hemoglobin 9.4 g/dL (14.0-18.0); Mean Corpuscular HGB Conc 32.5 g/dl (32-36); Mean Corpuscular Hemoglobin 29.3 pg (26-34); Mean Platelet Volume 9.9 fl (7.4-10.4); Platelet Count Result 549 k/mm3 (150-375); Red Blood Count 3.21 M/mm3 (4.6-6.20); Red Cell Distribution Width 17.2 % (11.5-14.5); White Blood Count 21.6 K/mm3 (4.5-10.0)
[2021-02-20 05:45] LABS: Anion Gap 8 mmol/L (8-16); Blood Urea Nitrogen 27 mg/dL (9-20); Calcium 8.9 mg/dL (8.4-10.2); Carbon Dioxide 32 mmol/L (22-30); Chloride 94 mmol/L (98-107); Estimated CRCL calculation 14 ml/min; Estimated Glomerular Filt Rate 14; Glucose 188 mg/dL (75-110); Potassium 4.3 mmol/L (3.4-5.0); Sodium 134 mmol/L (137-145)
[2021-02-20] MEDS: THIAMINE HCL 200 MG/2 ML VIAL 100 MG IV PUSH (09:10)
[2021-02-20] MEDS: PANTOPRAZOLE SODIUM IV 40 MG VIAL IV PUSH (09:13)
[2021-02-20] MEDS: FOLIC ACID 1 MG/0.2 ML INJ IV PUSH (09:14)
[2021-02-20] MEDS: TICAGRELOR 90 MG TABLET PO (09:15)
[2021-02-20] MEDS: ERTAPENEM SODIUM 0.5 GM in SODIUM CHLORIDE 0.9% IV 50 ML IVPB (09:15)
[2021-02-20] MEDS: SERTRALINE HCL 50 MG TABLET 100 MG PO (09:15)
[2021-02-20] MEDS: NICOTINE (*PBKC) 14 MG PATCH 1 PATCH TRANSDERM (09:16)
[2021-02-20] MEDS: INSULIN ASPART (*BKC) 100 UNITS/ML SUB-Q ×2 (09:25→12:09)
[2021-02-20] MEDS: INSULIN GLARGINE (*BKC) 100 UNITS/ML 15 UNITS SUB-Q (09:26)
[2021-02-20 09:28] LABS: Glucose Point of Care 379 (65-105)
--- NOTE | 2021-02-20 10:15 | PM.PNNEP ---
Progress Note: A&P Assessment and Plan (1) End stage kidney disease: Code(s): N18.6 - End stage renal disease Status: Deleted Assessment and Plan: Ish has end-stage renal disease. he had dialysis yesterday and did well. (2) Acute respiratory failure: Code(s): J96.00 - Acute respiratory failure, unspecified whether with hypoxia or hypercapnia Status: Acute Assessment and Plan: This is resolved. Lungs are clear, no edema, and patient is not short of breath. He is on room air. (3) Diabetic foot infection: Code(s): E11.628 - Type 2 diabetes mellitus with other skin complications; L08.9 - Local infection of the skin and subcutaneous tissue, unspecified Status: Deleted Assessment and Plan: The patient has poor wound healing from his transmetatarsal amputation. Surgery has seen the patient. Local wound care ordered. Ish tells me he is trying to be transferred to [facility]. (4) CHF exacerbation: Code(s): I50.9 - Heart failure, unspecified Status: Acute Assessment and Plan: Most likely from his hypertension and fluid intake. (5) Hyperkalemia: Code(s): E87.5 - Hyperkalemia Status: Resolved Assessment and Plan: His potassium is good today. (6) Diabetes mellitus: Code(s): E11.9 - Type 2 diabetes mellitus without complications Status: Deleted Assessment and Plan: On Accu-Cheks and sliding-scale insulin (7) Hypertension: Qualifiers: Hypertension type: unspecified Qualified Code(s): I10 - Essential (primary) hypertension Code(s): I10 - Essential (primary) hypertension Status: Chronic Assessment and Plan: blood pressure Is improved now back on his home medications (8) Smoking: Code(s): F17.200 - Nicotine dependence, unspecified, uncomplicated Status: Acute Assessment and Plan: He continues to smoke we have talked many times about trying to quit. Subjective Date/time seen: 02/20/21 10:15 Interval history: Ish is out of the ICU on a regular floor. He is sitting in his wheelchair comfortably. He does not like having the chair alarm. We discussed that he has a bad left foot and prosthesis on the right foot. He is hoping to be transferred to [facility] today so that he can have evaluation by vascular surgeon for an amputation. Review of Systems Cardiovascular: Cardiovascular: Reports no additional cardiovascular complaints Respiratory: Respiratory: Reports no additional respiratory complaints Gastrointestinal: Gastrointestinal: Reports no additional gastrointestinal complaints Genitourinary: Genitourinary: Reports no additional male genitourinary complaints Exam Narrative: Exam Narrative: WDWN in NAD skin no rash or subcu nodules head ncat lungs clear bilaterally cor reg no rub Or gallop abd BS+ nontender and soft ext no edema or cyanosis. Objective Data Vital Signs Vital Signs: Vital Signs - 24 hr 02/19/21 12:00 02/19/21 14:00 02/19/21 20:00 Temperature 36.7 C Pulse Rate 93 96 98 Respiratory Rate 18 15 Blood Pressure 160/78 H 166/80 H Pulse Oximetry 100 99 02/19/21 20:15 02/19/21 21:20 02/19/21 21:48 Temperature 37.0 C 36.8 C Pulse Rate 98 99 94 Respiratory Rate 16 20 18 Blood Pressure 142/54 H 150/75 H Pulse Oximetry 94 98 02/19/21 22:00 02/19/21 22:15 02/19/21 22:30 Temperature 37.0 C Pulse Rate 99 92 92 Respiratory Rate 20 Blood Pressure 142/54 H 158/71 H 143/70 H Pulse Oximetry 98 02/19/21 22:45 02/19/21 23:00 02/19/21 23:15 Temperature Pulse Rate 93 96 98 Respiratory Rate Blood Pressure 124/55 L 136/60 128/56 L Pulse Oximetry 02/19/21 23:30 02/19/21 23:45 02/20/21 00:00 Temperature Pulse Rate 89 87 86 Respiratory Rate Blood Pressure 123/58 L 123/59 L 121/58 L Pulse Oximetry 02/20/21 00:15 02/20/21
--- NOTE | 2021-02-20 11:02 | PM.PNGS ---
Progress Note: A&P Assessment and Plan (1) Amputation of left forefoot: Code(s): S98.912A - Complete traumatic amputation of left foot, level unspecified, initial encounter Status: Acute Assessment and Plan: Surgically stable. Patient may be discharged when clear medically. He needs to follow up with his vascular surgeon for ongoing postoperative care. If he remains here more than another day or 2, will remove his madeleine here in the hospital. (2) Noncompliance: Code(s): Z91.19 - Patient's noncompliance with other medical treatment and regimen Status: Acute (3) CHF exacerbation: Code(s): I50.9 - Heart failure, unspecified Status: Acute (4) ESRD (end stage renal disease) on dialysis: Code(s): N18.6 - End stage renal disease; Z99.2 - Dependence on renal dialysis Status: Chronic Subjective Subjective Date/Time Seen: 02/20/21 11:02 Interval history: Patient has some pain the bottom of his left foot, stating it feels like it is on fire. Has some pins and needle sensations as well. Exam Skin: Other: Left foot wound with minimal bloody drainage. No purulence noted. [place] intact, but surface of skin has some dry gangrene. Objective Data Vital Signs Vital Signs: Vital Signs - 24 hr 02/19/21 12:00 02/19/21 14:00 02/19/21 20:00 Temperature 36.7 C Pulse Rate 93 96 98 Respiratory Rate 18 15 Blood Pressure 160/78 H 166/80 H Pulse Oximetry 100 99 02/19/21 20:15 02/19/21 21:20 02/19/21 21:48 Temperature 37.0 C 36.8 C Pulse Rate 98 99 94 Respiratory Rate 16 20 18 Blood Pressure 142/54 H 150/75 H Pulse Oximetry 94 98 02/19/21 22:00 02/19/21 22:15 02/19/21 22:30 Temperature 37.0 C Pulse Rate 99 92 92 Respiratory Rate 20 Blood Pressure 142/54 H 158/71 H 143/70 H Pulse Oximetry 98 02/19/21 22:45 02/19/21 23:00 02/19/21 23:15 Temperature Pulse Rate 93 96 98 Respiratory Rate Blood Pressure 124/55 L 136/60 128/56 L Pulse Oximetry 02/19/21 23:30 02/19/21 23:45 02/20/21 00:00 Temperature Pulse Rate 89 87 86 Respiratory Rate Blood Pressure 123/58 L 123/59 L 121/58 L Pulse Oximetry 02/20/21 00:15 02/20/21 00:30 02/20/21 00:45 Temperature Pulse Rate 82 81 80 Respiratory Rate Blood Pressure 128/60 124/65 135/69 Pulse Oximetry 02/20/21 01:00 02/20/21 01:10 02/20/21 02:00 Temperature 36.6 C 36.5 C Pulse Rate 83 81 85 Respiratory Rate 18 21 H Blood Pressure 116/51 L 144/71 H 122/45 L Pulse Oximetry 100 02/20/21 04:00 02/20/21 06:00 02/20/21 08:19 Temperature 36.8 C Pulse Rate 94 96 Respiratory Rate 20 Blood Pressure 145/57 H Pulse Oximetry 98 95 02/20/21 10:00 Temperature 36.5 C Pulse Rate 91 Respiratory Rate 18 Blood Pressure 158/60 H Pulse Oximetry 100 Intake/Output Intake/Output: Intake & Output 02/17/21 02/18/21 02/19/21 02/20/21 23:59 23:59 23:59 23:59 Intake Total 2420 0716 809 2874 Output Total 3500 3400 160 2500 [facility] -[phone] Meds/Results Medications: Active Medications Generic Name Dose Route Start Last Admin Trade Name Freq PRN Reason Stop Dose Admin Hydrocodone Bitart/Acetaminophen 1 tab 02/16/21 09:24 Hydrocodone/Acetaminophen (*Crx) 5-325 Mg Tablet PO Q4H PRN Pain Rated 4-6 Hydrocodone Bitart/Acetaminophen 1 tab 02/16/21 09:24 02/20/21 09:43 Hydrocodone/Acetaminophen (*Crx) 10-325 Mg Tablet PO 1 tab Q4H PRN Administration Pain Rated 7-10 Amlodipine Besylate 5 mg 02/17/21 05:05 02/20/21 09:15 Amlodipine Besylate 5 Mg Tablet PO Not Given DAILY MARTHA Aspirin 81 mg 02/17/21 08:00 02/17/21 09:35 Aspirin 81 Mg Chewable Tablet PO 81 mg DAILY@0800 [facility] Administration Atorvastatin Calcium 80 mg 02/15/21 21:00 02/19/21 20:16 Atorvastatin 40 Mg Tablet PO 80 mg HS MARTHA Administration Carvedilol 12.5 mg 02/18/21 09:00 02/18/21 08:52 Carvedilol 12.5 Mg Tablet PO
--- NOTE | 2021-02-20 11:10 | PM.TDS ---
Transfer Discharge Sum: Prov Provider Date of admission: 02/15/21 09:21 Primary care physician: Chance Maurice MD Admitting clinician: Charlotte Mitchell MD Consults: 02/15/21 Consult to Physician Routine Comment: CALLED MAYITO IN THE OFFICE WITH CONSULT INFORMATIO Consulting Provider: Brandyn Ospina scallop dredger/MD group to consult: SURGERY Reason for consultation: gangrenous wound Right foot with recent vascular procedure Has provider been notified: Yes Consult to Physician Routine Comment: IS AWARE OF THE PT. CONSULT Consulting Provider: Luke Huynh scallop dredger/MD group to consult: NEPHROLOGY Reason for consultation: esrd, volume overload Has provider been notified: Yes 02/15/21 09:22 Consult to Physician Routine Comment: DR OLIVERA IS AWARE OF THE PT CONSULT Consulting Provider: Rodriguez Olivera scallop dredger/ group to consult: J[employer] ORDER CLERK [employer] Reason for consultation: respiratory failure, midfoot infection Has provider been notified: Yes 02/19/21 Consult to Physician Routine Comment: Consulting Provider: Torsten Mcgarry scallop dredger/MD group to consult: Infectious Disease Reason for consultation: E.Coli bacteremia Has provider been notified: Yes Wound/ET Consult Routine Reason for Consult:: R foot wound DS: Admitting Diagnosis Admitting Diagnosis Admitting Diagnosis: acute respiratory failure DS: Discharge Diagnosis Discharge Diagnosis (1) Bacteremia: Code(s): R78.81 - Bacteremia Status: Acute (2) Amputation of left forefoot: Code(s): S98.912A - Complete traumatic amputation of left foot, level unspecified, initial encounter Status: Acute (3) Electrolyte abnormality: Code(s): E87.8 - Other disorders of electrolyte and fluid balance, not elsewhere classified Status: Acute (4) Noncompliance: Code(s): Z91.19 - Patient's noncompliance with other medical treatment and regimen Status: Acute (5) Acute respiratory failure: Code(s): J96.00 - Acute respiratory failure, unspecified whether with hypoxia or hypercapnia Status: Acute (6) CHF exacerbation: Code(s): I50.9 - Heart failure, unspecified Status: Acute (7) Gangrene: Code(s): I96 - Gangrene, not elsewhere classified Status: Acute (8) Antiplatelet or antithrombotic long-term use: Code(s): Z79.02 - terminal manager (current) use of antithrombotics/antiplatelets Status: Acute (9) Metabolic acidosis: Code(s): E87.2 - Acidosis Status: Chronic (10) Leukocytosis: Qualifiers: Leukocytosis type: unspecified Qualified Code(s): D72.829 - Elevated white blood cell count, unspecified Code(s): D72.829 - Elevated white blood cell count, unspecified Status: Acute (11) Elevated troponin: Code(s): R77.8 - Other specified abnormalities of plasma proteins Status: Acute (12) Sepsis: Qualifiers: Sepsis type: sepsis due to unspecified organism Sepsis acute organ dysfunction status: with acute organ dysfunction Severe sepsis acute organ dysfunction type: acute respiratory failure Acute respiratory failure type: unspecified Severe sepsis shock status: unspecified Qualified Code(s): A41.9 - Sepsis, unspecified organism; R65.20 - Severe sepsis without septic shock; J96.00 - Acute respiratory failure, unspecified whether with hypoxia or hypercapnia Code(s): A41.9 - Sepsis, unspecified organism Status: Acute (13) ESRD (end stage renal disease) on dialysis: Code(s): N18.6 - End stage renal disease; Z99.2 - Dependence on renal dialysis Status: Chronic (14) IDDM (insulin dependent diabetes mellitus): Status: Chronic (15) Cardiomyopathy: Code(s): I42.9 - Cardiomyopathy, unspecified Status: Chronic (16) Anemia: Code(s): D64.9 - Anemia, unspecified Status: Acute Transfer Discharge Sum: Med Medications Active and Home Medications
[2021-02-20 12:12] LABS: Glucose Point of Care 240 (65-105)
== END 2021-02-20 14:16 | disposition short-term general hospital (02) | DRG 871 ==
LOC: ANHED 10:49 → ANHICU 18:24 → ANH2MED 02-20 11:08 → ANHICU 02-23 18:07
PROVIDERS: Internal Medicine; Internal Medicine Critical Care Medicine; Internal Medicine Nephrology; Physician Assistant; Admitting Provider Internal Medicine; Emergency Provider Emergency Medicine; PCP Emergency Medicine; Visit Provider Internal Medicine
DX: A41.9 Sepsis, unspecified organism (principal); J96.00 Acute respiratory failure, unspecified whether with hypoxia or hypercapnia; I50.43 Acute on chronic combined systolic (congestive) and diastolic (congestive) heart failure; N18.6 End stage renal disease; I13.2 Hypertensive heart and chronic kidney disease with heart failure and with stage 5 chronic kidney disease, or end stage renal disease; R65.20 Severe sepsis without septic shock; E87.79 Other fluid overload; E10.22 Type 1 diabetes mellitus with diabetic chronic kidney disease; Z99.2 Dependence on renal dialysis; F41.8 Other specified anxiety disorders; K21.9 Gastro-esophageal reflux disease without esophagitis; I25.10 Atherosclerotic heart disease of native coronary artery without angina pectoris; F17.210 Nicotine dependence, cigarettes, uncomplicated; Z89.432 Acquired absence of left foot; I73.9 Peripheral vascular disease, unspecified; E87.5 Hyperkalemia; E10.21 Type 1 diabetes mellitus with diabetic nephropathy; E10.319 Type 1 diabetes mellitus with unspecified diabetic retinopathy without macular edema; I25.2 Old myocardial infarction; Z91.19 Patient's noncompliance with other medical treatment and regimen; D64.9 Anemia, unspecified
CPT/HCPCS: 31500; 36415; 36430; 36600; 51702; 71045; 80048; 80069; 80202; 82375; 82805; 82947; 82948; 83050; 83605; 83880; 84484; 85014; 85018; 85025; 85027; 85610; 85730; 86706; 86850; 86900; 86901; 86923; 87040; 87077; 87186; 87340; 93005; 94002; 94003; 96365; 96366; 96368; 96375; 99291; A9270; C9113; G0257; J0330; J0360; J1170; J1335; J1644; J1815; J1940; J2250; J2270; J2405; J2543; J2704; J3010; J3370; J3411; J7050; P9016

== ENCOUNTER 2021-03-04 03:57 | Emergency (ER) | payer MEDICARE, MEDICAID, SELFPAY ==
--- NOTE | ~2021-03-04 | XR_ITS ---
XR femur LT min 2V DATE: 03/04/2021 04:53 INDICATION: Fall. Left leg pain TECHNIQUE: 4 views COMPARISON: None FINDINGS: There are madeleine overlying the left inguinal area. Pedicle screws and rods are noted at th e lumbosacral area. There are skin madeleine at the stump of the above-knee amputation at the mid shaft of the left femur. There is extensive calcification of the deep femoral and femoral arteries. No fracture or dislocation, periosteal reaction or bone destruction of the left hip were left femoral remnant is noted. IMPRESSION: No fracture or dislocation Left above-knee amputation Reviewed, dictated and finalized at location A.
[2021-03-04 04:02] VITALS: BP 163/69; PULSE 98; RESP 18; TEMP 37.1; O2SAT 97
[2021-03-04] MEDS: HYDROmorphone HCL INJ (*CRX) 1 MG/ML SYR IM (04:35)
[2021-03-04] MEDS: ONDANSETRON HCL ODT 4 MG TABLET PO (04:36)
--- NOTE | 2021-03-04 05:24 | ED.FALL ---
HPI - Fall General Chief Complaint: Fall Stated Complaint: glf - amputation and buttock injury Time Seen by Provider: 03/04/21 03:59 Source: patient Mode of arrival: wheelchair (private care, wheelcha) Limitations: no limitations History of Present Illness HPI Narrative: This is a 55 year old male with history of multiple medical problems, s/p left AKA who presents for evaluation of stump pain after fall. He reports he has history of phantom pain. He states he accidentally fell out of bed tonight, and this has exacerbated his pain. His amputation was performed 2 weeks ago at [facility]. He denies nausea, vomiting or fever. He has mild bleeding at site after fall but he denies purulent drainage. He reports he is seen at pain clinic for his phantom pain. Related Data Home Medications Medication Instructions Recorded Confirmed furosemide 80 mg PO BID 02/05/20 02/15/21 aspirin 81 mg PO DAILY 07/02/20 02/15/21 Dang-Nilsa 1 tablet PO DAILY 07/23/20 02/15/21 albuterol sulfate 1 puff INHALATION QID 01/11/21 02/15/21 atorvastatin 80 mg PO HS 01/11/21 02/15/21 lorazepam 1 mg PO BID PRN 01/11/21 02/15/21 ropinirole 0.25 mg PO DIRECTED 01/11/21 02/15/21 amlodipine 5 mg PO DAILY 02/15/21 02/15/21 gabapentin 300 mg PO DAILY 02/15/21 02/15/21 sevelamer carbonate 800 mg PO TID 02/15/21 02/15/21 silver [Silver-Sept] 1 applic TOPICAL DAILY 02/15/21 02/15/21 vitamin B complex [B 1 tablet PO DAILY 02/15/21 02/15/21 Complex-Vitamin B12] carvedilol 25 mg tablet See Rx Instructions .ROUTE .COMPLEX 03/02/21 insulin glargine 100 unit/mL (3 See Rx Instructions .ROUTE .COMPLEX 03/02/21 mL) subcutaneous pen metoclopramide HCl 5 mg tablet See Rx Instructions .ROUTE .COMPLEX 03/02/21 Allergies Allergy/AdvReac Type Severity Reaction Status Date / Time scopolamine Allergy Severe Unresponsiv Verified 02/15/21 09:35 e Review of Systems Review of Systems: All systems reviewed & are unremarkable except as noted in HPI and below Cardiovascular: Cardiovascular: Denies chest pain Respiratory: Respiratory: Denies cough and Denies dyspnea Musculoskeletal: Musculoskeletal: Reports arthralgias [facility] Past Medical History Medical History (Updated 03/04/21 @ 05:48 by Lou Tay MD) Amputation above knee Anxiety Benign prostatic hyperplasia Bradycardic cardiac arrest (~07/23/20) In the setting of severe hyperkalemia, acute pulmonary edema, and respiratory failure Chronic anemia Congestive heart failure Echocardiogram in August 2020 showed a mildly enlarged left ventricular chamber, severely reduced left ventricular systolic function with an estimated ejection fraction of 25 to 30%, moderately increased LV wall thickness, grade 2 diastolic dysfunction, severe aortic valve sclerosis, mild mitral, tricuspid, and pulmonic valve regurgitation, mild pulmonary hypertension with an estimated arterial pressure 43 mmHg, and areas of hypokinesis including the apex, inferior wall, anterior wall, inferoseptal wall, anterolateral wall, and anteroseptal wall. Coronary artery disease With non STEMI in December 2019, with stent placed to the LAD. Depression with anxiety End-stage renal disease on hemodialysis Gastric ulcer On endoscopy per Dr. Pacheco in June 2020. Gastroesophageal reflux disease Hypertension Noncompliance Renal osteodystrophy Seizure Secondary to hypoglycemia. ST elevation myocardial infarction (STEMI) (~06/26/20) Secondary to abrupt stent thrombosis of the LAD. Tobacco dependence Type 1 diabetes mellitus Diagnosed at the age of 10. Complicated by retinopathy, nephropathy, and neuropathy. Hemoglobin A1c was 7.6% in July 2020. Vitamin D deficiency disease Surgical History Surgical History (Updated 02/15/21 @ 21:14 by Anai Balderas PA-C) History of endoscopy (~06/27/20) History of femoropopliteal bypass 02/04/21 left common femoral endarterectomy with left femoral to below-knee popliteal pauline
[2021-03-04 05:55] VITALS: BP 155/59; PULSE 90; RESP 16; O2SAT 99
== END 2021-03-04 05:55 | disposition home or self-care (01) ==
PROVIDERS: Emergency Provider General Practice; PCP Emergency Medicine
DX: T87.89 Other complications of amputation stump (principal); G54.6 Phantom limb syndrome with pain; N40.0 Benign prostatic hyperplasia without lower urinary tract symptoms; I25.10 Atherosclerotic heart disease of native coronary artery without angina pectoris; I25.2 Old myocardial infarction; K21.9 Gastro-esophageal reflux disease without esophagitis; N25.0 Renal osteodystrophy; I13.2 Hypertensive heart and chronic kidney disease with heart failure and with stage 5 chronic kidney disease, or end stage renal disease; E10.22 Type 1 diabetes mellitus with diabetic chronic kidney disease; I50.9 Heart failure, unspecified; N18.6 End stage renal disease; Z99.2 Dependence on renal dialysis; E10.319 Type 1 diabetes mellitus with unspecified diabetic retinopathy without macular edema; E10.21 Type 1 diabetes mellitus with diabetic nephropathy; E10.40 Type 1 diabetes mellitus with diabetic neuropathy, unspecified; Z89.511 Acquired absence of right leg below knee; Z79.4 Long term (current) use of insulin; E55.9 Vitamin D deficiency, unspecified; Z98.49 Cataract extraction status, unspecified eye; Z95.5 Presence of coronary angioplasty implant and graft; F41.8 Other specified anxiety disorders; F17.210 Nicotine dependence, cigarettes, uncomplicated; W06.XXXA Fall from bed, initial encounter
CPT/HCPCS: 73552; 96372; 99283; A9270; J1170

== ENCOUNTER 2021-03-05 07:38 | Inpatient (IN) | payer MEDICARE, MEDICAID, SELFPAY ==
[2021-03-05] VITALS (44 sets, daily range): BP systolic 83–193; BP diastolic 54–83; PULSE 82–138; RESP 12–44; TEMP 36–37; O2SAT 98–100
--- NOTE | ~2021-03-05 | XR_ITS ---
EXAMINATION: XR chest 1V portable DATE: 03/05/2021 08:47 INDICATION: Shortness of breath. TECHNIQUE: A single frontal view of the chest was obtained. COMPARISON: Chest single view 02/20/2021, CT abdomen and pelvis 07/20/2020 FINDINGS: There is a diffuse interstitial pattern, consistent with mild pulmonary edema. No pleural e ffusion or pneumothorax. Cardiomegaly is noted. IMPRESSION: 1. Mild pulmonary edema. 2. Cardiomegaly. Reviewed, dictated and finalized at location D.
--- NOTE | ~2021-03-05 | XR_ITS ---
EXAMINATION: XR chest 1V portable DATE: 03/06/2021 05:43 INDICATION: Pulmonary edema. TECHNIQUE: A single frontal view of the chest was obtained on 2 radiographs. COMPARISON: Chest single view 03/05/2021 FINDINGS: There is a diffuse interstitial pattern, consistent with mild pulmonary edema. No pleural e ffusion or pneumothorax. The heart size is normal. The endotracheal tube tip is 4.6 cm above the júnior na. The nasogastric tube tip is beyond the inferior margin of the radiograph, but at least to the sto mach. There are old healed left rib fractures. IMPRESSION: 1. Mild pulmonary edema with interval improvement. Reviewed, dictated and finalized at location A.
--- NOTE | ~2021-03-05 | XR_ITS ---
XR abdomen NG/feed tube insert DATE: 03/05/2021 13:36 INDICATION: Orogastric tube insertion TECHNIQUE: Portable supine AP view COMPARISON: 02/17/2021 KUB for NG tube placement 07/20/2020 CT abdomen pelvis FINDINGS: The orogastric tube is situated in the stomach, the distal tip overlying the lower body of the stomach, the proximal port situated 8 cm distal to the diaphragmatic hiatus. There is severe extensive calcification of the renal arteries. Status post lower lumbar posterior surgical fusion. Battery pack overlies the upper abdomen left of m idline, with electrodes extending to the lumbar spine IMPRESSION: Orogastric tube in stomach Reviewed, dictated and finalized at Location A. Reviewed, dictated and finalized at location A. IMPRESSION: Orogastric tube in stomach
--- NOTE | ~2021-03-05 | XR_ITS ---
XR chest ET placement DATE: 03/05/2021 13:36 INDICATION: Intubation. Check ET tube position TECHNIQUE: Portable supine AP view on 03/05/2021 at 1328 hours COMPARISON: 03/05/2021 portable AP chest at 1259 hours FINDINGS: ET tube in satisfactory position 3.7 cm above luciano. NG tube in stomach. No central lines. There is pulmonary vascular congestion and redistribution. There is prominence of the minor fissure. There are bilateral Marilee B-lines. There are bilateral pulmonary infiltrates which are more prominen t centrally, suggesting pulmonary edema. The bilateral infiltrates are increased since earlier today. Borderline heart size. Aortic arch calcification, calcification of the descending thoracic aorta. Diffuse osteopenia. IMPRESSION: ET tube and NG tube in satisfactory position Increased congestive changes, pulmonary edema Reviewed, dictated and finalized at Location A. Reviewed, dictated and finalized at location A.
--- NOTE | ~2021-03-05 | XR_ITS ---
EXAMINATION: XR chest 1V portable DATE: 03/05/2021 13:04 INDICATION: Pulmonary edema. TECHNIQUE: A single frontal view of the chest was obtained. COMPARISON: Chest single view at 8:46 AM FINDINGS: There is a diffuse interstitial pattern, consistent with mild pulmonary edema. No pleural e ffusion or pneumothorax. Cardiomegaly is noted. IMPRESSION: 1. Worsened mild pulmonary edema. 2. Cardiomegaly. Reviewed, dictated and finalized at location B.
--- NOTE | 2021-03-05 07:40 | ECG_ITS ---
Measurements Intervals [place] Rate: 89 P: 64 MD: 159 QRS: 70 QRSD: 85 T: 86 QT: 357 QTc: 436 Interpretive Statements SINUS RHYTHM DELAYED PRECORDIAL R/S TRANSITION BORDERLINE ST-T WAVE ABNORMALITY- INF/LAT LEADS BORDERLINE ECG Electronically Signed On 03-05-2021 8:50:14 CDT by Edmond Elias D.O.
--- NOTE | 2021-03-05 07:41 | ED.SOB ---
HPI - SOB/Dyspnea General Chief Complaint: Shortness of Breath/Dyspnea Stated Complaint: SOB Time Seen by Provider: 03/05/21 07:40 History of Present Illness HPI Narrative: 55 yo male w/ extensive medical history including CHF, flash pulmonary edema, COPD, respiratory failure, [place], DM presents to the ED c/o SOB for the past 40 minutes. Tried albuterol without improvement. He has gone into acute respiratory failure and required intubation multiple times due to flash pulmonary edema and this feels the same. Related Data Home Medications Medication Instructions Recorded Confirmed furosemide 80 mg PO BID 02/05/20 03/11/21 aspirin 81 mg PO DAILY 07/02/20 03/11/21 Dang-Nilsa 1 tablet PO DAILY 07/23/20 03/11/21 albuterol sulfate 1 puff INHALATION QID 01/11/21 03/11/21 atorvastatin 80 mg PO HS 01/11/21 03/11/21 lorazepam 1 mg PO BID PRN 01/11/21 03/11/21 ropinirole 0.25 mg PO DIRECTED 01/11/21 03/11/21 Silver-Sept 1 applic TOPICAL DAILY 02/15/21 03/11/21 amlodipine 5 mg PO DAILY 02/15/21 03/11/21 gabapentin 300 mg PO DAILY 02/15/21 03/11/21 sevelamer carbonate 800 mg PO TID 02/15/21 03/11/21 vitamin B complex [B 1 tablet PO DAILY 02/15/21 03/11/21 Complex-Vitamin B12] carvedilol 25 mg tablet See Rx Instructions .ROUTE .COMPLEX 03/02/21 03/11/21 Allergies Allergy/AdvReac Type Severity Reaction Status Date / Time scopolamine Allergy Severe Unresponsiv Verified 03/11/21 01:17 e Review of Systems Review of Systems: All systems reviewed & are unremarkable except as noted in HPI and below Constitutional: Constitutional: Denies fever(s) Eyes: Eyes: Reports no additional eye complaints ENT: Reports system reviewed and no additional complaints, except as documented Cardiovascular: Cardiovascular: Denies chest pain Respiratory: Respiratory: Reports chest congestion, Reports dyspnea and Reports wheezing Gastrointestinal: Gastrointestinal: Denies abdominal pain, Denies nausea and Denies vomiting Neurologic: Denies confusion, Denies dizziness and Denies weakness [facility] Past Medical History Medical History (Updated 03/11/21 @ 09:58 by Matteo Tom MD) Amputation above knee Anxiety Benign prostatic hyperplasia Bradycardic cardiac arrest (~07/23/20) In the setting of severe hyperkalemia, acute pulmonary edema, and respiratory failure Chronic anemia Congestive heart failure Echocardiogram in August 2020 showed a mildly enlarged left ventricular chamber, severely reduced left ventricular systolic function with an estimated ejection fraction of 25 to 30%, moderately increased LV wall thickness, grade 2 diastolic dysfunction, severe aortic valve sclerosis, mild mitral, tricuspid, and pulmonic valve regurgitation, mild pulmonary hypertension with an estimated arterial pressure 43 mmHg, and areas of hypokinesis including the apex, inferior wall, anterior wall, inferoseptal wall, anterolateral wall, and anteroseptal wall. Coronary artery disease With non STEMI in December 2019, with stent placed to the LAD. Depression with anxiety End-stage renal disease on hemodialysis Erythropoietin deficiency anemia Gastric ulcer On endoscopy per Dr. Pacheco in June 2020. Gastroesophageal reflux disease Hypertension Noncompliance Renal osteodystrophy Seizure Secondary to hypoglycemia. ST elevation myocardial infarction (STEMI) (~06/26/20) Secondary to abrupt stent thrombosis of the LAD. Tobacco dependence Type 1 diabetes mellitus Diagnosed at the age of 10. Complicated by retinopathy, nephropathy, and neuropathy. Hemoglobin A1c was 7.6% in July 2020. Vitamin D deficiency disease Surgical History Surgical History (Updated 03/11/21 @ 09:41 by Matteo Tom MD) History of endoscopy (~06/27/20) History of femoropopliteal bypass 02/04/21 left common femoral endarterectomy with left femoral to below-knee popliteal artery bypass History of heart artery stent Stent in the LAD in December 2019. Patient had abrupt stent thr
[2021-03-05] MEDS: NITROGLYCERIN OINTMENT 1 INCH DOSE TRANSDERM (08:02)
--- NOTE | 2021-03-05 08:04 | PC.NURSE ---
IV attempts x4 unsuccessful per this RN. Becky Michel, [employer], notified and will be enroute.
[2021-03-05 08:38] LABS: Basophils Absolute Auto 0.1 K/mm3 (0.0-0.1); Basophils Percent Auto 0.5 % (0.2-1.2); Eosinophils Absolute Auto 0.6 K/mm3 (0-0.3); Eosinophils Percent Auto 3.7 % (0-4.4); Hematocrit 21.6 % (42.0-52.0); Immature Granulocyte Absolute 0.13 K/mm3 (0.00-0.031); Immature Granulocyte Percent A 0.9 % (0-0.5); Lymphocytes Percent Auto 11.1 % (18.3-44.2); Mean Corpuscular HGB Conc 31.5 g/dl (32-36); Mean Corpuscular Hemoglobin 29.4 pg (26-34); Mean Corpuscular Volume 93.5 fl (80-100); Mean Platelet Volume 9.5 fl (7.4-10.4); Monocytes Percent Auto 6.2 % (2.6-8.5); Neutrophils Absolute Auto 11.8 K/mm3 (1.3-6.7); Neutrophils Percent Auto 77.6 % (45.5-73.1); Platelet Count Result 598 k/mm3 (150-375); Red Blood Count 2.31 M/mm3 (4.6-6.20); White Blood Count 15.3 K/mm3 (4.5-10.0)
[2021-03-05] MEDS: FUROSEMIDE INJ 40 MG/4 ML VIAL IV PUSH ×2 (08:38→19:06)
[2021-03-05 08:40] LABS: Hemoglobin 6.8 g/dL (14.0-18.0)
[2021-03-05] MEDS: LABETALOL HCL INJ 100 MG/20 ML VIAL 10 MG IV PUSH ×2 (08:40→09:49)
[2021-03-05 08:46] LABS: INR 1.1; Prothrombin Time 14.8 Seconds (11.1-14.7)
[2021-03-05 08:47] LABS: Partial Thromboplastin Time 38.3 SECONDS (22.3-36.8)
[2021-03-05 08:51] LABS: Anion Gap 7 mmol/L (8-16); Blood Urea Nitrogen 73 mg/dL (9-20); Calcium 9.1 mg/dL (8.4-10.2); Carbon Dioxide 31 mmol/L (22-30); Chloride 99 mmol/L (98-107); Estimated CRCL calculation 10 ml/min; Estimated Glomerular Filt Rate 9; Glucose 216 mg/dL (75-110); Potassium 6.3 mmol/L (3.4-5.0); Sodium 137 mmol/L (137-145)
[2021-03-05 09:02] LABS: NT Pro B Type Natriuretic Pept > 35000 pg/mL (5-100)
--- NOTE | 2021-03-05 09:50 | PC.NURSE ---
Pt states is feeling better, is breathing better. Remains on 2L/o2/nc. Has not voided since lasix was given, state I feel it coming though .
--- NOTE | 2021-03-05 09:54 | ECG_ITS ---
Measurements Intervals [place] Rate: 116 P: 64 [place]: 180 QRS: 62 QRSD: 95 T: 97 QT: 310 QTc: 431 Interpretive Statements SINUS TACHYCARDIA ST-T WAVE ABNORMALITY IN ANTEROLATERAL LEADS- CONSIDER ISCHEMIA BASELINE ARTIFACT- I, II, AVR, AVL, AVF ABNORMAL ECG Electronically Signed On 03-05-2021 13:48:21 CDT by Edmond Elias D.O.
--- NOTE | 2021-03-05 10:21 | PC.NURSE ---
Renal diet breakfast tray given po. Attempt to call report, floor unable to take at this time and will return call.
--- NOTE | 2021-03-05 10:52 | PC.NURSE ---
Note just prior to patient being transferred to the floor, states I'm not going till I get something to eat! . Pt has eaten his eggs and toast. When reminded, states oh yeah, I forgot . Pt's at bedside that earlier during this visit that pt was talking to fernanda castañeda and has been generally forgetting things for the past 2 days. Pt is alert and oriented x3 at present. Call to ADILENE Gilmore, in IMU and updated that pt has been confused and she states she will pass it on.
--- NOTE | 2021-03-05 11:30 | PM.CNNEP ---
Assessment and Plan Assessment and plan (1) ESRD (end stage renal disease) on dialysis: Code(s): N18.6 - End stage renal disease; Z99.2 - Dependence on renal dialysis Status: Chronic Assessment and Plan: Ish has end-stage renal disease. He was due for dialysis today at [facility]. However he became short of breath so came to the ER. His shortness of breath kevin treated successfully with inhalers but his potassium was 6.3 so he was admitted to the hospital. The patient is feeling better today. He is set up for dialysis today. (2) Acute hyperkalemia: Code(s): E87.5 - Hyperkalemia Status: Acute Assessment and Plan: Potassium was in the sevens earlier this week. He was told to resume his diet. He was dialyzed on a low-potassium bath at the clinic. So this is actually an improvement. (3) Pulmonary edema: Code(s): J81.1 - Chronic pulmonary edema Status: Acute Assessment and Plan: The patient has fluid overload on his chest x-ray. Will remove extra fluid today. (4) Hypertension: Qualifiers: Hypertension type: unspecified Qualified Code(s): I10 - Essential (primary) hypertension Code(s): I10 - Essential (primary) hypertension Status: Chronic Assessment and Plan: Blood pressure is high from anxiety and also the excess fluid. He says he takes his blood pressure at home and gets reasonable readings on non dialysis days. (5) Smoking: Code(s): F17.200 - Nicotine dependence, unspecified, uncomplicated Status: Acute Assessment and Plan: He continues to smoke. He is not ready to quit. I counseled him to try stop smoking if we can. Consider Chantix or patches. (6) Erythropoietin deficiency anemia: Code(s): D63.1 - Anemia in chronic kidney disease Status: Acute Assessment and Plan: The patient's hemoglobin is low. He may need a transfusion. I will leave this up to the hospitalist. We can transfuse him on dialysis not let the nurse know to do that if it is ordered. I will give him Epogen. Because his blood pressure is high will hold the Epogen unless it comes down to below one seventy by the time he is finished with his dialysis. (7) Type 1 diabetes mellitus: Qualifiers: Diabetes mellitus complication status: with kidney complications Diabetes mellitus complication detail: with chronic kidney disease Chronic kidney disease stage: on chronic dialysis Qualified Code(s): E10.22 - Type 1 diabetes mellitus with diabetic chronic kidney disease; N18.6 - End stage renal disease; Z99.2 - Dependence on renal dialysis Code(s): E10.9 - Type 1 diabetes mellitus without complications Status: Chronic Assessment and Plan: On Accu-Cheks and sliding-scale insulin (8) Coronary artery disease: Qualifiers: Coronary Disease-Associated Artery/Lesion type: eagle artery [place] vs. transplanted heart: eagle heart Associated angina: without angina Qualified Code(s): I25.10 - Atherosclerotic heart disease of eagle coronary artery without angina pectoris Code(s): I25.10 - Atherosclerotic heart disease of eagle coronary artery without angina pectoris Status: Acute Assessment and Plan: no current chest pain History of Present Illness Reason for Consult Consult date: 03/05/21 Chief Complaint Chief complaint: anemia,chf,hypertension History of Present Illness Narrative: Ish is a very pleasant 55-year-old gentleman who has multiple medical problems including end-stage renal disease on dialysis 3 times a week, peripheral vascular disease status post right [id number] amputation and left transmetatarsal amputation more recently. The madeleine are still in the left metatarsal amputation site and there is considerable black eschar over /Around the wound. he also has diabetes, renal osteodystrophy with chronically high phosphorus levels, hyper
[2021-03-05 12:39] LABS: Troponin I 0.107 ng/mL (0.000-0.034)
[2021-03-05] MEDS: LEVALBUTEROL NEB 1.25 MG/3 ML (12:45)
[2021-03-05 12:51] LABS: Alveolar/Arterial O2 Gradient 359.4 mmHg; Base Excess ABG -3.5 mEq/l (+/-2.0); Fractional Inspired Oxygen 100 %; HCO3 ABG 23.7 mEq/l (22.0-26.0); Methemoglobin ABG 0.1 %THb (0-1.5); Oxygen Content ABG 12.9 %vol (16.0-22.0); Oxygen Saturation ABG 99.6 % (95.0-100.0); Oxyhemoglobin 98.9 % THb (90.0-100.0); PCO2 ABG 54.5 mmHg (35.0-45.0); PO2 ABG 299.1 mmHg (80.0-100.0); PO2 FiO2 Ratio Arterial Blood 2.99 %; Total Hemoglobin 8.7 g/dL (12.0-18.0)
[2021-03-05 12:52] LABS: Site Drawn RIGHT RADIAL; pH ABG 7.257 (7.350-7.450)
[2021-03-05 12:53] LABS: Device NON-INVASIVE VENT; Modified Allen's Test Pass; Non-Invasive Expiratory Pressure 6 CMH2O; Non-Invasive Inspiratory Pressure 12 CMH2O; Non-Invasive Vent Rate 12 /MIN
--- NOTE | 2021-03-05 13:16 | PM.IMHP ---
H&P: HPI History of Present Illness Date/Time: 03/05/21 13:16 this is a 55-year-old male patient with end-stage renal disease. The patient had been transferred from here on 02/20/2021 the with sepsis. The patient had ESBLE coli infection. The patient had acute respiratory failure secondary to flash pulmonary edema due to non compliant with dialysis. As well as diet and fluid restrictions another medication regimen. The patient had been intubated on 02/15 hemodialysis for 5 extubated for 6 and then reintubated on 02/17. The patient was on room air when he was transferred to [facility]. The patient had a diabetic foot infection with postop left transmetatarsal amputation. His left femoral to below-knee popliteal artery bypass. He had dry necrotic at incision site that was noted. The patient had been on vancomycin and Zosyn at the time. The patient typically has dialysis on Monday. The patient is here today because he was short of breath. The patient was scheduled to have dialysis today. It is not known when he had his last dialysis however the patient stated that he did not go to dialysis on Monday. Dr. Huynh has been notified and has scheduled for the patient to have dialysis. The patient became very confused and restless. Patient had a heart rate in the 130s and 140s. Blood pressure was elevated 200s over over 100s. We initiated the BiPAP machine and a respiratory treatment. Patient was doing well for a brief moment of time however he decided to pull off his BiPAP on several occasions. The patient stated that he was hot and was still having difficulty breathing. Albuterol without improvement. Patient last echo August 2020 showed a mildly enlarged left ventricular chamber severely reduced left ventricular systolic function and an estimated ejection fraction of 25-30%. Is 15.3. Hemoglobin is 6.8 and 21.6. ABG was obtained pH was 7.257. CO2 was 54.5. PO2 was 299. Bicarb was within normal limits. We did call Dr. Asif into the room to help with further recommendations. The patient was given a neb treatment at the bedside. We did call dialysis to do a stat treatment on the patient. The patient was diaphoretic and we checked his blood sugar was in the 300s. Nitro paste, labetalol, Lasix, hydralazine, and is Xopenex treatment. BUN 73 and creatinine 6.0. We attempted the BiPAP for over an hour and the patient was still struggling so the patient was transferred to ICU and most likely will be intubated and have emergent dialysis. The patient is being admitted to inpatient status on the date of service of 03/05/2021. Chief Complaint: Shortness of breath Review of Systems Review of Systems: All systems reviewed & are unremarkable except as noted in HPI and below Constitutional: Constitutional: Reports as per HPI and Reports no additional constitutional complaints Eyes: Eyes: Reports as per HPI and Reports no additional eye complaints ENT: Reports system reviewed and no additional complaints, except as documented and Reports Normal hearing present Cardiovascular: Cardiovascular: Reports no additional cardiovascular complaints Respiratory: Respiratory: Reports no additional respiratory complaints and Reports no additional respiratory complaints Gastrointestinal: Gastrointestinal: Reports as per HPI and Reports no additional gastrointestinal complaints Musculoskeletal: Musculoskeletal: Reports no additional musculoskeletal complaints Integumentary/Breasts: Skin/Breast: Reports system reviewed and no additional complaints, except as docu and Reports as per HPI Neurologic: Reports system reviewed and no additional complaints, except as documented, Reports as per HPI and Reports Normal hearing present Psychiatric: Psychiatric: Reports no additional psychiatric complaints and Reports as per HPI Endocrine: Endocrine: Reports no additional endocrine complaints Hematologic/Lymphatic: Hematologic/Lymphatic: Report
[2021-03-05 13:17] LABS: Glucose Point of Care 326 (65-105)
[2021-03-05 13:19] LABS: NT Pro B Type Natriuretic Pept > 35000 pg/mL (5-100)
[2021-03-05 13:20] LABS: Blood Urea Nitrogen 76 mg/dL (9-20); Estimated CRCL calculation 10 ml/min
--- NOTE | 2021-03-05 13:41 | WPDCNINT ---
Assessment and Plan Assessment and plan (1) Acute respiratory failure with hypoxia: Code(s): J96.01 - Acute respiratory failure with hypoxia Status: Acute Assessment and Plan: Patient with acute respiratory failure along with hypoxia for impending respiratory failure was intubated on 03/05/2021. Intubation was uneventful -place patient on CMV mode of ventilation, tidal volume 400 mL, rate of 24, peep of 8, 60% FiO2 -repeat ABG -continue bronchodilators -sedated with propofol (2) ESRD (end stage renal disease): Code(s): N18.6 - End stage renal disease Status: Chronic Assessment and Plan: End-stage renal disease on dialysis Monday and Monday, he stated he missed his dialysis Saturday 03/03 -presented the ED with pulmonary edema and respiratory failure -nephrology following the patient, -patient is being dialyzed has I write t this note -will monitor renal function electrolytes (3) Acute hyperkalemia: Code(s): E87.5 - Hyperkalemia Status: Acute Assessment and Plan: Patient getting dialyzed at this time, will repeat labs after dialysis (4) Pulmonary edema: Qualifiers: Chronicity: acute Qualified Code(s): J81.0 - Acute pulmonary edema Code(s): J81.1 - Chronic pulmonary edema Status: Acute Assessment and Plan: Chest x-ray showed pulmonary edema likely related to congestive heart failure exacerbation, missed dialysis -currently on mechanical ventilation -continue dialysis (5) Hypertensive urgency: Code(s): I16.0 - Hypertensive urgency Status: Acute Assessment and Plan: Patient has history of hypertensive urgency in the past, presented with systolic blood pressures greater than 200 and diastolic pressures greater than 100s in the ER -received hydralazine, metoprolol, intubated on positive pressure ventilation with improvement in blood pressures and heart rate -EKG reviewed -continue to monitor (6) Type 1 diabetes mellitus: Qualifiers: Diabetes mellitus complication status: with kidney complications Diabetes mellitus complication detail: with chronic kidney disease Chronic kidney disease stage: on chronic dialysis Qualified Code(s): E10.22 - Type 1 diabetes mellitus with diabetic chronic kidney disease; N18.6 - End stage renal disease; Z99.2 - Dependence on renal dialysis Code(s): E10.9 - Type 1 diabetes mellitus without complications Status: Chronic Assessment and Plan: Continue sliding scale insulin Accu-Cheks (7) CHF (congestive heart failure): Code(s): I50.9 - Heart failure, unspecified Status: Acute Assessment and Plan: Patient is on Lasix -getting dialyzed (8) Anemia: Code(s): D64.9 - Anemia, unspecified Status: Acute Assessment and Plan: Patient has a history of anemia -will check iron panel, haptoglobin, LDH -could be related to anemia of chronic disease -will transfuse 1 unit of packed RBCs with dialysis Additional Plan Discussed with Rosana, updated with patient's condition and plan of care. I answered all questions. Code status: Full code Critical care time spent: 44 minutes This dictation may have been done utilizing a voice recognition system. Attempts have been made to correct errors. However, there may be uncorrected grammatical, spelling, and recognition errors present. Due to a high probability of clinically significant, life threatening deterioration, the patient required my highest level of preparedness to intervene emergently and I personally spent this critical care time directly and personally managing the patient. This critical care time included obtaining a history; examining the patient; pulse oximetry; ordering and review of studies; arranging urgent treatment with development of a management plan; evaluation of patient's response to treatment; frequent reassessment; and discussions with other providers. It wa
[2021-03-05 14:05] LABS: Sodium 137 mmol/L (137-145)
[2021-03-05 14:06] LABS: Anion Gap 11 mmol/L (8-16); Calcium 9.3 mg/dL (8.4-10.2); Carbon Dioxide 26 mmol/L (22-30); Chloride 100 mmol/L (98-107); Estimated Glomerular Filt Rate 8; Glucose 280 mg/dL (75-110)
[2021-03-05 14:08] LABS: Potassium 6.4 mmol/L (3.4-5.0)
[2021-03-05] MEDS: EPOETIN ALFA-EPBX 10,000 UNITS/ML VIAL 10000 UNITS IV PUSH (14:44)
[2021-03-05] MEDS: RAPID SEQUENCE INTUBATION KIT 1 EACH (14:55)
[2021-03-05] MEDS: PROPOFOL IV EMULSION 100 ML 1.83 MG IV CONT (14:57)
[2021-03-05] MEDS: MIDAZOLAM 100MG/NS 100ML(*CRX) 100 MG/100 ML BAG IV CONT (14:58)
--- NOTE | 2021-03-05 14:59 | WPDPROCEDUR ---
Procedures Intubation Intubation Date: 03/05/21 A pre-procedural Time-Out was completed immediately before starting the procedure and confirmed: Patient Identification, Site, Procedure, Patient Position and the Availability of Requisite Equipment: Yes Sedative: etomidate Paralytic: rocuronium Laryngoscope: fiber optic video scope ET tube size: 7.5 Tube secured depth (cm): 25 Tube secured location: lips Tube placement confirmation: visualized tube passing through cords, equal breath sounds bilaterally, no breath sounds over epigastrium and confirmation by capnometry Patient tolerated procedure: well Intubation complications: none
[2021-03-05] MEDS: hydrALAZINE HCL 20 MG/ML VIAL IV PUSH (15:00)
[2021-03-05 15:06] LABS: Glucose Point of Care 334 (65-105)
[2021-03-05 15:08] LABS: Troponin I 0.109 ng/mL (0.000-0.034)
[2021-03-05] MEDS: INSULIN ASPART (*BKC) 100 UNITS/ML SUB-Q (15:11)
[2021-03-05] MEDS: METOPROLOL TARTRATE INJ 5 MG/5 ML VIAL IV PUSH (15:13)
--- NOTE | 2021-03-05 15:29 | ADMGEN ---
This patient, Ish Corley, was admitted to Intensive Care Unit-7. Patient/family oriented to hospital policies and general routines including ID bracelet, bed and alarms, visiting hours, pain management, procedures, bathroom and other care routines, personal items, smoking policy, room service/diet, and visiting hours. Information on how to activate the Rapid Response Team has been discussed. Patient/Family are encouraged to report perceived risks to care and to ask questions if they do not understand what they are told or what they should do.
--- NOTE | 2021-03-05 15:35 | PC.NURSE ---
Suicide assessment completed per questions in ED initial assessment. The patient is intubated and sedated and unable to answer at this time.
[2021-03-05 15:44] LABS: Hemoglobin A1C 8.1 % (<5.7)
[2021-03-05 15:51] LABS: Lactate Dehydrogenase 537 U/L (313-618)
[2021-03-05 16:06] LABS: Iron 35 ug/dL (49-181)
[2021-03-05 16:15] LABS: Percent Iron Saturation 21 % (20-50)
[2021-03-05] MEDS: PROPOFOL IV EMULSION 100 ML 18.3 MG IV CONT (17:21)
[2021-03-05 19:09] LABS: Glucose Point of Care 103 (65-105)
[2021-03-05] MEDS: FAMOTIDINE 20 MG/2 ML VIAL IV PUSH (22:09)
[2021-03-05 23:31] LABS: Glucose Point of Care 187 (65-105)
[2021-03-06] VITALS (44 sets, daily range): BP systolic 96–157; BP diastolic 46–76; PULSE 87–109; RESP 18–30; TEMP 35.9–37.3; O2SAT 93–100
[2021-03-06] MEDS: PROPOFOL IV EMULSION 100 ML 10.98 MG IV CONT (04:01)
[2021-03-06 04:16] LABS: Base Excess ABG -3.1 mEq/l (+/-2.0); Carboxyhemoglobin 0.2 % THb (0-2.0); Device VENTILATOR; Fractional Inspired Oxygen 40 %; HCO3 ABG 20.8 mEq/l (22.0-26.0); Methemoglobin ABG 0.1 %THb (0-1.5); Modified Allen's Test Pass; Oxygen Content ABG 16.2 %vol (16.0-22.0); Oxygen Saturation ABG 97.8 % (95.0-100.0); Oxyhemoglobin 96.7 % THb (90.0-100.0); PCO2 ABG 33.3 mmHg (35.0-45.0); PO2 ABG 102.9 mmHg (80.0-100.0); PO2 FiO2 Ratio Arterial Blood 2.57 %; Site Drawn RIGHT RADIAL; Total Hemoglobin 11.8 g/dL (12.0-18.0); pH ABG 7.413 (7.350-7.450)
[2021-03-06 04:17] LABS: Arterial Blood Gas PEEP 5 cmH2O; Arterial Blood Gas Tidal Volume 400 ml; Arterial Blood Gas Vent Mode CMV; Arterial Blood Gas Ventilator rate 24 /MIN
[2021-03-06 04:42] LABS: Basophils Absolute Auto 0.1 K/mm3 (0.0-0.1); Basophils Percent Auto 0.7 % (0.2-1.2); Eosinophils Absolute Auto 0.2 K/mm3 (0-0.3); Eosinophils Percent Auto 1.9 % (0-4.4); Hematocrit 28.6 % (42.0-52.0); Immature Granulocyte Absolute 0.06 K/mm3 (0.00-0.031); Immature Granulocyte Percent A 0.5 % (0-0.5); Lymphocytes Absolute Auto 1.46 K/mm3 (0.9-3.2); Lymphocytes Percent Auto 12.1 % (18.3-44.2); Mean Corpuscular HGB Conc 31.5 g/dl (32-36); Mean Corpuscular Hemoglobin 29.8 pg (26-34); Mean Corpuscular Volume 94.7 fl (80-100); Monocytes Absolute Auto 0.8 K/mm3 (0.1-0.6); Monocytes Percent Auto 6.5 % (2.6-8.5); Neutrophils Absolute Auto 9.5 K/mm3 (1.3-6.7); Neutrophils Percent Auto 78.3 % (45.5-73.1); Platelet Count Result 594 k/mm3 (150-375); Red Blood Count 3.02 M/mm3 (4.6-6.20); Red Cell Distribution Width 16.1 % (11.5-14.5); White Blood Count 12.1 K/mm3 (4.5-10.0)
[2021-03-06 04:57] LABS: Alanine Aminotransferase 10 U/L (4-50); Albumin Level 3.1 g/dL (3.5-5.1); Alkaline Phosphatase 93 U/L (38-126); Anion Gap 15 mmol/L (8-16); Aspartate Amino Transferase 25 U/L (17-59); Bilirubin,Total 0.6 mg/dL (0.2-1.3); Blood Urea Nitrogen 43 mg/dL (9-20); Calcium 8.9 mg/dL (8.4-10.2); Carbon Dioxide 22 mmol/L (22-30); Chloride 98 mmol/L (98-107); Estimated CRCL calculation 16 ml/min; Estimated Glomerular Filt Rate 15; Glucose 307 mg/dL (75-110); Sodium 135 mmol/L (137-145)
[2021-03-06] MEDS: INSULIN ASPART (*BKC) 100 UNITS/ML SUB-Q ×3 (05:58→17:55)
[2021-03-06 06:20] LABS: Glucose Point of Care 360 (65-105)
[2021-03-06] MEDS: FUROSEMIDE INJ 40 MG/4 ML VIAL IV PUSH (08:51)
[2021-03-06] MEDS: FAMOTIDINE 20 MG/2 ML VIAL IV PUSH ×2 (08:51→20:24)
[2021-03-06] MEDS: PROPOFOL IV EMULSION 100 ML 16.47 MG IV CONT (09:39)
--- NOTE | 2021-03-06 09:58 | ECHO_ITS ---
Patient Info Name: Ish Corley Age: 55 years : 1965 Gender: Male Ht: 66 in Wt: 117 lbs BSA: 1.56 m2 HR: 97 bpm BP: 121 / 65 mmHg Heart Rhythm: Sinus Rhythm Technical Quality: Fair Exam Date: 03/06/2021 8:14 AM Exam Location: [facility] Pulmonary Exam Room: ICU7 Patient Status: Inpatient Admit Date: 03/05/2021 Staff Ordering Physician: Jessica Bianchi MD Band Director: Aishwarya Carmen RDCS Attending Provider: Jessica Bianchi MD Referring Physician: Tash ONEILL; Exam Type: CA echo doppler color flow Study Info Indications - chf Complete two-dimensional, color flow and Doppler transthoracic echocardiogram is performed. Summary 1. Complete two-dimensional, color flow and Doppler transthoracic echocardiogram is performed. 2. Left ventricular chamber dimension is mildly enlarged. 3. Left ventricular systolic function is mildly reduced, estimated at 55-60%. 4. There is severely increased left ventricular wall thickness. Speckled appearance of the myocardium. 5. The left ventricular diastolic function is grade I diastolic dysfunction. 6. Left atrial chamber dimension is mildly enlarged. 7. There is moderate aortic valve sclerosis. 8. The mitral valve annulus is severely calcified. 9. There is mild mitral valve regurgitation. 10. The mitral valve has thickened leaflets. 11. There is mild tricuspid valve regurgitation. 12. There is mild pulmonic regurgitation. Left Ventricle Left ventricular chamber dimension is mildly enlarged. Left ventricular systolic function is mildly reduced, estimated at 55-60%. There is severely increased left ventricular wall thickness. Speckled appearance of the myocardium. The left ventricular diastolic function is grade I diastolic dysfunction. Right Ventricle Right ventricular chamber dimension is normal. Right ventricular systolic function is normal. Left Atria Left atrial chamber dimension is mildly enlarged. Right Atria Right atrial chamber dimension is normal. Atrial Septum Intact interatrial septum visualized by color flow imaging. Aortic Valve The aortic valve is trileaflet. There is moderate aortic valve sclerosis. There is no aortic valve stenosis. There is trace aortic valve regurgitation. Pulmonic Valve The pulmonic valve is normal. There is no pulmonic valve stenosis. There is mild pulmonic regurgitation. Mitral Valve The mitral valve has thickened leaflets. There is no mitral valve stenosis. There is mild mitral valve regurgitation. The mitral valve annulus is severely calcified. Tricuspid Valve The tricuspid valve leaflets are normal. There is no significant tricuspid valve stenosis. There is mild tricuspid valve regurgitation. No pulmonary hypertension, estimated pulmonary arterial systolic pressure is 34 mmHg. Pericardium/Pleural The pericardium appears normal. There is small pericardial effusion. Inferior Vena Cava Dilated inferior vena cava with <50% collapse upon inspiration consistent with elevated right atrial pressure, 15 mmHg. Aorta The aortic root size at the sinus of Valsalva is normal. The prox ascending aorta size is normal. Left Ventricular Outflow Tract Name Value Normal LVOT 2D
--- NOTE | 2021-03-06 10:17 | PM.PNNEP ---
Progress Note: A&P Assessment and Plan (1) ESRD (end stage renal disease) on dialysis: Code(s): N18.6 - End stage renal disease; Z99.2 - Dependence on renal dialysis Status: Chronic Assessment and Plan: Ish has end-stage renal disease. He had his regular dialysis yesterday. Will do an extra treatment today to get fluid (2) Acute hyperkalemia: Code(s): E87.5 - Hyperkalemia Status: Acute Assessment and Plan: Potassium is on the high side. Will take more potassium off today (3) Pulmonary edema: Code(s): J81.1 - Chronic pulmonary edema Status: Acute Assessment and Plan: The patient has fluid overload on his chest x-ray. Will remove extra fluid today. (4) Hypertension: Qualifiers: Hypertension type: unspecified Qualified Code(s): I10 - Essential (primary) hypertension Code(s): I10 - Essential (primary) hypertension Status: Chronic Assessment and Plan: Blood pressure is better. He is sedated. (5) Smoking: Code(s): F17.200 - Nicotine dependence, unspecified, uncomplicated Status: Acute Assessment and Plan: He continues to smoke. He is not ready to quit. I counseled him to try stop smoking if we can. Consider Chantix or patches. (6) Erythropoietin deficiency anemia: Code(s): D63.1 - Anemia in chronic kidney disease Status: Acute Assessment and Plan: The patient is getting Epogen with dialysis on Wednesdays and Monday His hemoglobin is 9 today (7) Type 1 diabetes mellitus: Qualifiers: Diabetes mellitus complication status: with kidney complications Diabetes mellitus complication detail: with chronic kidney disease Chronic kidney disease stage: on chronic dialysis Qualified Code(s): E10.22 - Type 1 diabetes mellitus with diabetic chronic kidney disease; N18.6 - End stage renal disease; Z99.2 - Dependence on renal dialysis Code(s): E10.9 - Type 1 diabetes mellitus without complications Status: Chronic Assessment and Plan: On Accu-Cheks and sliding-scale insulin (8) Coronary artery disease: Qualifiers: Coronary Disease-Associated Artery/Lesion type: [place] artery [place] vs. transplanted heart: [place] heart Associated angina: without angina Qualified Code(s): I25.10 - Atherosclerotic heart disease of [place] coronary artery without angina pectoris Code(s): I25.10 - Atherosclerotic heart disease of [place] coronary artery without angina pectoris Status: Acute Assessment and Plan: no current chest pain Subjective Date/time seen: 03/06/21 10:17 Interval history: Patient is resting comfortably on the vent. He had dialysis yesterday and removed some fluid. Will do another dialysis today to remove more fluid so he can more easily get off the ventilator Review of Systems Review of Systems: ROS unobtainable: Yes unobtainable due to medical condition Exam Narrative: Exam Narrative: WDWN in NAD skin no rash head ncat lungs coarse bilaterally cor reg no rub abd BS+ nontender and soft ext trace edema. Objective Data Vital Signs Vital Signs: Vital Signs - 24 hr 03/05/21 11:57 03/05/21 12:00 03/05/21 12:46 Temperature 36.8 C Pulse Rate 97 138 H Respiratory Rate 12 44 H Blood Pressure 146/63 H Pulse Oximetry 98 100 03/05/21 12:48 03/05/21 12:54 03/05/21 12:55 Temperature Pulse Rate 138 H 138 H Respiratory Rate 34 H 44 H Blood Pressure Pulse Oximetry 100 100 100 03/05/21 13:25 03/05/21 14:00 03/05/21 14:19 Temperature 36.9 C Pulse Rate 100 97 100 Respiratory Rate 32 H Blood Pressure 150/74 H Pulse Oximetry 100 100 03/05/21 14:30 03/05/21 14:45 03/05/21 14:57 Temperature Pulse Rate 97 99 98 Respiratory Rate 26 H Blood Pressure 145/74 H 121/68 Pulse Oximetry 03/05/21 14:58 03/05/21 15:00 03/05/21 15:13 Temperature Pulse Rate 98 100 134 H
[2021-03-06 11:58] LABS: Glucose Point of Care 300 (65-105)
--- NOTE | 2021-03-06 12:03 | WPDINTPN ---
Progress Note: A&P Assessment and Plan (1) CHF exacerbation: Code(s): I50.9 - Heart failure, unspecified Status: Acute (2) Acute respiratory failure: Code(s): J96.00 - Acute respiratory failure, unspecified whether with hypoxia or hypercapnia Status: Acute Assessment and Plan: Received dialysis with fluid removal yesterday and was extubated this morning successfully after a spontaneous breathing trial. (3) Noncompliance: Code(s): Z91.19 - Patient's noncompliance with other medical treatment and regimen Status: Acute Assessment and Plan: Patient has a history of noncompliance with medications as well as leaving against medical advice during his hospitalizations before treatments can be completed. (4) ESRD (end stage renal disease) on dialysis: Code(s): N18.6 - End stage renal disease; Z99.2 - Dependence on renal dialysis Status: Chronic Assessment and Plan: Further dialysis is planned for today. (5) Cardiomyopathy: Code(s): I42.9 - Cardiomyopathy, unspecified Status: Chronic Assessment and Plan: Patient has a history of low ejection fraction 25 to 30%. We will continue to monitor his vitals blood pressure and make sure that he is euvolemic (6) IDDM (insulin dependent diabetes mellitus): Status: Chronic Assessment and Plan: continue current care of insulin management Additional Plan Can be transferred to medical telemetry today Code status: Full code Critical care time spent: 32 minutes This dictation may have been done utilizing a voice recognition system. Attempts have been made to correct errors. However, there may be uncorrected grammatical, spelling, and recognition errors present. Due to a high probability of clinically significant, life threatening deterioration, the patient required my highest level of preparedness to intervene emergently and I personally spent this critical care time directly and personally managing the patient. This critical care time included obtaining a history; examining the patient; pulse oximetry; ordering and review of studies; arranging urgent treatment with development of a management plan; evaluation of patient's response to treatment; frequent reassessment; and discussions with other providers. It was exclusive of separately billable procedures and treating other patients and teaching time. Please see Assessment and Plan section and the rest of the note for further information on patient assessment and treatment Subjective Date/time seen: 03/06/21 12:03 Interval history: Stable overnight no acute events. He is on minimal support from the ventilator. He tolerated his spontaneous breathing trial and was extubated successfully this morning. He will be receiving further dialysis today. Review of Systems Review of Systems: All systems reviewed & are unremarkable except as noted in HPI and below Exam Const: General: comfortable and no acute distress HENMT: Other: ETT in place Eyes: Sclera: sclerae normal Pupils: Equal, round and reactive pupils present Neck: Neck: supple Resp: Effort & Inspection: normal respiratory effort Auscultation: crackles, rales and diminished lung sounds Cardio: Rate: regular rate and tachycardic GI: Inspection: non-distended GI Palp: Yes Soft to palpation and No Tenderness to palpation present (GI) Auscultation: normal bowel sounds (Hypoactive bowel sounds) : Other: Baptiste catheter in place Urinary Catheter: Urinary Catheter: urine clear Skin: Other: Left femoral groin site incision with madeleine, clean dry and intact -some dry scaly skin on the upper extremities Neuro: Other: Patient is intubated and sedated Extrem: Other: Right below-knee amputation, left above-knee amputation -dialysis fistula in the left upper extremity Psych: Other: Unable to assess at this time Objective Data Vital Signs Vital Signs: Vital Signs - 24 hr
--- NOTE | 2021-03-06 13:56 | PM.IMPN ---
Progress Note: A&P Assessment and Plan (1) Acute respiratory failure with hypoxia and hypercapnia: Code(s): J96.01 - Acute respiratory failure with hypoxia; J96.02 - Acute respiratory failure with hypercapnia Status: Acute Assessment and Plan: Pt was successfully extubated. Currently on RA breatig is better after diuresis and dialysis (2) Hypertensive emergency: Code(s): I16.1 - Hypertensive emergency Status: Acute Assessment and Plan: The patient was given nitro paste, labetalol and hydralazine. The patient requires emergent dialysis. Pt is non compliant. (3) End-stage renal disease on hemodialysis: Code(s): N18.6 - End stage renal disease; Z99.2 - Dependence on renal dialysis Status: Acute Assessment and Plan: Dr. Huynh has been consulted. The patient typically has dialysis on Monday. The patient is noncompliant (4) Acute hyperglycemia: Code(s): R73.9 - Hyperglycemia, unspecified Status: Acute Assessment and Plan: Patient has diabetes insulin dependent. Will do Accu-Cheks every 6 hours with high sliding scale insulin. Check A1c. (5) CHF exacerbation: Code(s): I50.9 - Heart failure, unspecified Status: Acute Assessment and Plan: The patient has pulmonary edema from end-stage renal disease and need for hemodialysis.Echocardiogram in August 2020 showed a mildly enlarged left ventricular chamber, severely reduced left ventricular systolic function with an estimated ejection fraction of 25 to 30%, moderately increased LV wall thickness, grade 2 diastolic dysfunction, severe aortic valve sclerosis, mild mitral, tricuspid, and pulmonic valve regurgitation, mild pulmonary hypertension with an estimated arterial pressure 43 mmHg, and areas of hypokinesis including the apex, inferior wall, anterior wall, inferoseptal wall, anterolateral wall, and anteroseptal wall (6) Depression: Qualifiers: Depression Type: major depressive disorder Major depression recurrence: recurrent Active/Remission status: currently active Major depression episode severity: moderate Qualified Code(s): F33.1 - Major depressive disorder, recurrent, moderate Code(s): F32.9 - Major depressive disorder, single episode, unspecified Status: Acute Assessment and Plan: Restart oral medications (7) Type 1 diabetes mellitus: Qualifiers: Diabetes mellitus complication status: with kidney complications Diabetes mellitus complication detail: with chronic kidney disease Chronic kidney disease stage: on chronic dialysis Qualified Code(s): E10.22 - Type 1 diabetes mellitus with diabetic chronic kidney disease; N18.6 - End stage renal disease; Z99.2 - Dependence on renal dialysis Code(s): E10.9 - Type 1 diabetes mellitus without complications Status: Chronic Assessment and Plan: Accu-Cheks every 6 hours with High dose sliding scale and check A1c. (8) Tobacco dependence: Code(s): F17.200 - Nicotine dependence, unspecified, uncomplicated Status: Acute Assessment and Plan: Counselling about smoking cessation Subjective Date/time seen: 03/06/21 13:56 Interval history: Pt was successfully extubated can be transferred to the medical floor. Pt was on a ventilator earlier this morning Review of Systems Review of Systems: ROS unobtainable: Yes unobtainable due to medical condition Exam Const: General: other (young man ) Nutritional Appearance: thin Eyes: Pupils: Equal, round and reactive pupils present EOM: EOMs intact bilaterally Neck: Neck: normal visual inspection, full ROM, no lymphadenopathy, trachea midline and supple Thyroid: thyroid normal Carotids: normal carotid upstroke Lymphatic: no lymphadenopathy noted Chest: Chest palpation & inspection: normal inspection of the chest Resp: tactile fremitus present: other (decreased breath sounds ) Cardio: Palpatio
--- NOTE | 2021-03-06 15:59 | PCSTNOTE ---
Please refer to the Bedside Swallow Evaluation in the EMR. Please note, silent aspiration cannot be ruled out at bedside.
--- NOTE | 2021-03-06 17:31 | PC.NURSE ---
Patient to room 347 from ICU 7. Patient and spouse oriented to room and policies. Belongings with patient.
--- NOTE | 2021-03-06 17:34 | PC.NURSE ---
This patient, Ish Corley, was transferred to 171 on 03/06/21 at 1734. Personal belongings sent with patient. Report given to RN. Appropriate documentation sent with patient.
[2021-03-06 17:44] LABS: Glucose Point of Care 227 (65-105)
[2021-03-06] MEDS: NICOTINE (*PBKC) 14 MG PATCH 1 PATCH TRANSDERM (17:54)
--- NOTE | 2021-03-06 18:04 | PC.NURSE ---
Patient spouse went home to look for patient's dentures. Unable to find them at home and patient now insists his dentures are in the ICU department. Made a call to ICU and was told that he has a half set here and they are with him. Upon looking through his belongings we found the half set the ICU stated was with him.
[2021-03-06] MEDS: LORazepam INJ (*CRX) 2 MG/ML VIAL 0.25 MG IV PUSH (20:24)
[2021-03-07] VITALS (15 sets, daily range): BP systolic 102–142; BP diastolic 42–93; PULSE 73–114; RESP 12–26; TEMP 36.5–36.9; O2SAT 95–100
[2021-03-07 00:48] LABS: Glucose Point of Care > 500 (65-105)
[2021-03-07] MEDS: INSULIN ASPART (*BKC) 100 UNITS/ML 12 UNITS SUB-Q (00:55)
--- NOTE | 2021-03-07 01:03 | PC.NURSE ---
During midnight medpass, patient was found to have several bags of nilla wafers, cheese crackers, snack bag of popcorn, muna crackers, a container of glucose tabs, a bag of regular sugar, home lantus and lispro injection pen. All items were packed in his home bag that was delivered by his earlier in admission. All items were collected and placed into locked closet out of patients reach. Patient stated that he had not consumed any of the snacks yet BS was logged as >500 and several packages were open. Physician was notified and a diabetic education was given.
[2021-03-07 01:28] LABS: Anion Gap 29 mmol/L (8-16); Blood Urea Nitrogen 36 mg/dL (9-20); Calcium 9.1 mg/dL (8.4-10.2); Carbon Dioxide 13 mmol/L (22-30); Chloride 91 mmol/L (98-107); Estimated CRCL calculation 16 ml/min; Estimated Glomerular Filt Rate 17; Glucose 793 mg/dL (75-110); Potassium 5.1 mmol/L (3.4-5.0); Sodium 133 mmol/L (137-145)
[2021-03-07 01:56] LABS: Beta-Hydroxybutyrate/Acetoacetate 8.46 mmol/L (0.02-0.27)
[2021-03-07 01:57] LABS: Alveolar/Arterial O2 Gradient 46.6 mmHg; Base Excess ABG -9.4 mEq/l (+/-2.0); Device ROOM AIR; Fractional Inspired Oxygen 21 %; HCO3 ABG 14.6 mEq/l (22.0-26.0); Modified Allen's Test Pass; Oxygen Content ABG 11.7 %vol (16.0-22.0); Oxygen Saturation ABG 94.6 % (95.0-100.0); Oxyhemoglobin 91.9 % THb (90.0-100.0); PCO2 ABG 25.6 mmHg (35.0-45.0); PO2 ABG 72.5 mmHg (80.0-100.0); PO2 FiO2 Ratio Arterial Blood 3.45 %; Site Drawn RIGHT RADIAL; pH ABG 7.373 (7.350-7.450)
--- NOTE | 2021-03-07 02:16 | PC.NURSE ---
This patient, Ish Corley, was transferred to [ ICU-7] on 03/07/21 at 0216. Personal belongings sent with patient. Report given to [ADILENE PARMAR ]. Appropriate documentation and medication sent with patient.
[2021-03-07] MEDS: INSULIN HUMAN REGULAR (*BKC) 100 UNITS/ML IV PUSH (02:18)
[2021-03-07] MEDS: INSULIN HUMAN REGULAR (*BKC) 100 UNITS in SODIUM CHLORIDE 0.9% IV 99 ML 14.6 UNITS IV CONT (02:20)
[2021-03-07 02:33] LABS: Glucose Point of Care > 500 (65-105)
[2021-03-07] MEDS: HYDROcodone/acetaminophen (*CRX) 5-325 MG TABLET 1 TAB PO ×5 (02:34→20:30)
[2021-03-07 03:23] LABS: Glucose Point of Care > 500 (65-105)
--- NOTE | 2021-03-07 03:49 | PC.NURSE ---
This patient, Ish Corley, was received from [ [address] [place] [address]] on 03/07/21 at 0200. Patient/family oriented to unit policies and routines
[2021-03-07 04:30] LABS: Glucose Point of Care 447 (65-105)
[2021-03-07 05:19] LABS: Hematocrit 24.4 % (42.0-52.0); Hemoglobin 7.8 g/dL (14.0-18.0); Mean Corpuscular Hemoglobin 30.2 pg (26-34); Mean Corpuscular Volume 94.6 fl (80-100); Mean Platelet Volume 9.8 fl (7.4-10.4); Platelet Count Result 553 k/mm3 (150-375); Red Blood Count 2.58 M/mm3 (4.6-6.20); White Blood Count 12.4 K/mm3 (4.5-10.0)
[2021-03-07 05:22] LABS: Glucose Point of Care 392 (65-105)
[2021-03-07 05:38] LABS: Anion Gap 14 mmol/L (8-16); Blood Urea Nitrogen 47 mg/dL (9-20); Carbon Dioxide 24 mmol/L (22-30); Chloride 96 mmol/L (98-107); Estimated CRCL calculation 15 ml/min; Estimated Glomerular Filt Rate 17; Glucose 429 mg/dL (75-110); Magnesium 2.2 mg/dL (1.6-2.3); Potassium 3.6 mmol/L (3.4-5.0); Sodium 134 mmol/L (137-145)
[2021-03-07 06:21] LABS: Glucose Point of Care 295 (65-105)
--- NOTE | 2021-03-07 06:57 | PC.NURSE ---
Notified pt's , Rosana, that pt is back in ICU 7 for DKA.
[2021-03-07 07:32] LABS: Glucose Point of Care 180 (65-105)
[2021-03-07] MEDS: INSULIN HUMAN REGULAR (*BKC) 100 UNITS in SODIUM CHLORIDE 0.9% IV 99 ML 7.2 UNITS IV CONT (08:28)
[2021-03-07] MEDS: NICOTINE (*PBKC) 14 MG PATCH 1 PATCH TRANSDERM (08:36)
[2021-03-07 08:38] LABS: Glucose Point of Care 98 (65-105)
--- NOTE | 2021-03-07 08:39 | PM.PNNEP ---
Progress Note: A&P Assessment and Plan (1) ESRD (end stage renal disease) on dialysis: Code(s): N18.6 - End stage renal disease; Z99.2 - Dependence on renal dialysis Status: Chronic Assessment and Plan: Ish has end-stage renal disease. He had an extra dialysis yesterday. Will do another treatment tomorrow (2) Acute hyperkalemia: Code(s): E87.5 - Hyperkalemia Status: Acute Assessment and Plan: Okay today (3) Pulmonary edema: Code(s): J81.1 - Chronic pulmonary edema Status: Acute Assessment and Plan: The patient looks a lot better. He is on room air. Blood pressure is under good control. (4) Hypertension: Qualifiers: Hypertension type: unspecified Qualified Code(s): I10 - Essential (primary) hypertension Code(s): I10 - Essential (primary) hypertension Status: Chronic Assessment and Plan: Blood pressure is doing well (5) Smoking: Code(s): F17.200 - Nicotine dependence, unspecified, uncomplicated Status: Acute Assessment and Plan: He continues to smoke. He is not ready to quit. I counseled him to try stop smoking if we can. Consider Chantix or patches. (6) Erythropoietin deficiency anemia: Code(s): D63.1 - Anemia in chronic kidney disease Status: Acute Assessment and Plan: The patient is getting Epogen with dialysis on Wednesdays and Monday His hemoglobin is 9 today (7) Type 1 diabetes mellitus: Qualifiers: Diabetes mellitus complication status: with kidney complications Diabetes mellitus complication detail: with chronic kidney disease Chronic kidney disease stage: on chronic dialysis Qualified Code(s): E10.22 - Type 1 diabetes mellitus with diabetic chronic kidney disease; N18.6 - End stage renal disease; Z99.2 - Dependence on renal dialysis Code(s): E10.9 - Type 1 diabetes mellitus without complications Status: Chronic Assessment and Plan: On Accu-Cheks and sliding-scale insulin (8) Coronary artery disease: Qualifiers: Coronary Disease-Associated Artery/Lesion type: cheesh-na artery [place] vs. transplanted heart: cheesh-na heart Associated angina: without angina Qualified Code(s): I25.10 - Atherosclerotic heart disease of cheesh-na coronary artery without angina pectoris Code(s): I25.10 - Atherosclerotic heart disease of cheesh-na coronary artery without angina pectoris Status: Acute Assessment and Plan: no current chest pain Subjective Date/time seen: 03/07/21 08:39 Interval history: Patient is resting comfortably. He is extubated and on room air now. In good spirits. Review of Systems Cardiovascular: Cardiovascular: Reports no additional cardiovascular complaints Respiratory: Respiratory: Reports no additional respiratory complaints Gastrointestinal: Gastrointestinal: Reports no additional gastrointestinal complaints Genitourinary: Genitourinary: Reports no additional male genitourinary complaints Exam Narrative: Exam Narrative: WDWN in NAD skin no rash head ncat lungs fairly clear cor reg no rub abd BS+ nontender and soft ext no edema. Objective Data Vital Signs Vital Signs: Vital Signs - 24 hr 03/06/21 08:50 03/06/21 09:39 03/06/21 10:00 Temperature Pulse Rate 94 94 87 Respiratory Rate 22 H 24 H 24 H Blood Pressure 116/63 Pulse Oximetry 100 03/06/21 10:31 03/06/21 10:55 03/06/21 12:00 Temperature 36.9 C Pulse Rate 89 96 Respiratory Rate 18 Blood Pressure 111/69 Pulse Oximetry 100 100 93 03/06/21 13:00 03/06/21 13:13 03/06/21 13:43 Temperature 36.9 C Pulse Rate 96 97 94 Respiratory Rate 20 18 18 Blood Pressure 109/62 Pulse Oximetry 99 03/06/21 13:47 03/06/21 13:48 03/06/21 14:00 Temperature Pulse Rate 97 100 Respiratory Rate Blood Pressure 131/65 157/69 H Pulse Oximetry 98 03/06/21 14:15 03/06/21 14:30
[2021-03-07 09:15] LABS: Anion Gap 12 mmol/L (8-16); Blood Urea Nitrogen 48 mg/dL (9-20); Calcium 9.1 mg/dL (8.4-10.2); Carbon Dioxide 28 mmol/L (22-30); Chloride 98 mmol/L (98-107); Estimated CRCL calculation 13 ml/min; Estimated Glomerular Filt Rate 15; Glucose 104 mg/dL (75-110); Potassium 3.4 mmol/L (3.4-5.0); Sodium 138 mmol/L (137-145)
[2021-03-07] MEDS: DEXTROSE 50% 25 GM/50 ML SYRINGE IV PUSH (09:48)
[2021-03-07 09:51] LABS: Glucose Point of Care 29 (65-105)
[2021-03-07 10:24] LABS: Glucose Point of Care 103 (65-105)
--- NOTE | 2021-03-07 12:06 | WPDINTPN ---
Progress Note: A&P Assessment and Plan (1) CHF exacerbation: Code(s): I50.9 - Heart failure, unspecified Status: Acute Assessment and Plan: resolved (2) Acute respiratory failure: Code(s): J96.00 - Acute respiratory failure, unspecified whether with hypoxia or hypercapnia Status: Acute Assessment and Plan: Recieved dialysis with fluid removal on Monday and Monday. Extubated yesterday. Is currently euvolemic (3) Noncompliance: Code(s): Z91.19 - Patient's noncompliance with other medical treatment and regimen Status: Acute Assessment and Plan: Patient has a history of noncompliance with medications as well as leaving against medical advice during his hospitalizations before treatments can be completed. (4) ESRD (end stage renal disease) on dialysis: Code(s): N18.6 - End stage renal disease; Z99.2 - Dependence on renal dialysis Status: Chronic Assessment and Plan: Further dialysis is planned for today. (5) Cardiomyopathy: Code(s): I42.9 - Cardiomyopathy, unspecified Status: Chronic Assessment and Plan: Patient has a history of low ejection fraction 25 to 30%. We will continue to monitor his vitals blood pressure and make sure that he is euvolemic (6) IDDM (insulin dependent diabetes mellitus): Status: Chronic Assessment and Plan: Lantus to start tonight at 10 units SC Q12h Insulin drip discontinued after hypoglycemic episode. SSI with Lispro high dose will be started Diabetic/Renal/Cardiac diet restarted. Additional Plan Code status: Full code Critical care time spent: 32 minutes This dictation may have been done utilizing a voice recognition system. Attempts have been made to correct errors. However, there may be uncorrected grammatical, spelling, and recognition errors present. Due to a high probability of clinically significant, life threatening deterioration, the patient required my highest level of preparedness to intervene emergently and I personally spent this critical care time directly and personally managing the patient. This critical care time included obtaining a history; examining the patient; pulse oximetry; ordering and review of studies; arranging urgent treatment with development of a management plan; evaluation of patient's response to treatment; frequent reassessment; and discussions with other providers. It was exclusive of separately billable procedures and treating other patients and teaching time. Please see Assessment and Plan section and the rest of the note for further information on patient assessment and treatment Subjective Date/time seen: 03/07/21 12:06 Interval history: Ish was extubated yesterday morning and was transferred out to the medical orantes. The nurse told me that he was brought in some sweets and candies and later on the medical orantes he develops severe hyperglycemia and was transferred back to the ICU for IV insulin infusion. His bicarb level was 24 and he had no anion gap. This morning he became hypoglycemic with a glucose of 29 on insulin drip and this was discontinued and he was given D50 immediately. He was still alert and an awake and had no mental status changes. Review of Systems Review of Systems: All systems reviewed & are unremarkable except as noted in HPI and below Exam Const: General: comfortable and no acute distress HENMT: Other: ETT in place Eyes: Sclera: sclerae normal Pupils: Equal, round and reactive pupils present Neck: Neck: supple Resp: Effort & Inspection: normal respiratory effort Auscultation: crackles, rales and diminished lung sounds Cardio: Rate: regular rate and tachycardic GI: Inspection: non-distended GI Palp: Yes Soft to palpation and No Tenderness to palpation present (GI) Auscultation: normal bowel sounds (Hypoactive bowel sounds) : Other: Baptiste catheter in place Urinary Catheter: Urinary Catheter: urine clear
[2021-03-07 13:02] LABS: Glucose Point of Care 218 (65-105)
[2021-03-07] MEDS: INSULIN ASPART (*BKC) 100 UNITS/ML SUB-Q ×3 (13:26→17:02)
[2021-03-07 13:33] LABS: Anion Gap 12 mmol/L (8-16); Blood Urea Nitrogen 49 mg/dL (9-20); Calcium 8.8 mg/dL (8.4-10.2); Carbon Dioxide 28 mmol/L (22-30); Chloride 97 mmol/L (98-107); Estimated CRCL calculation 11 ml/min; Estimated Glomerular Filt Rate 12; Glucose 228 mg/dL (75-110); Potassium 4.3 mmol/L (3.4-5.0); Sodium 137 mmol/L (137-145)
--- NOTE | 2021-03-07 14:05 | PM.IMPN ---
Progress Note: A&P Assessment and Plan (1) Acute respiratory failure with hypoxia and hypercapnia: Code(s): J96.01 - Acute respiratory failure with hypoxia; J96.02 - Acute respiratory failure with hypercapnia Status: Acute Assessment and Plan: Pt was successfully extubated. Currently on room air breating is better after diuresis and dialysis. Hopeful discharge tomorrow after dialysis (2) Hypertensive emergency: Code(s): I16.1 - Hypertensive emergency Status: Acute Assessment and Plan: The patient was given nitro paste, labetalol and hydralazine. The patient requires dialysis tomorrow. Pt is non compliant. (3) End-stage renal disease on hemodialysis: Code(s): N18.6 - End stage renal disease; Z99.2 - Dependence on renal dialysis Status: Acute Assessment and Plan: Dr. Huynh has been consulted. The patient typically has dialysis on Monday. The patient is noncompliant (4) Acute hyperglycemia: Code(s): R73.9 - Hyperglycemia, unspecified Status: Acute Assessment and Plan: Patient has diabetes insulin dependent. Will do Accu-Cheks every 6 hours with high sliding scale insulin. Check A1c. (5) CHF exacerbation: Code(s): I50.9 - Heart failure, unspecified Status: Acute Assessment and Plan: The patient has pulmonary edema from end-stage renal disease and need for hemodialysis. (6) Depression: Qualifiers: Depression Type: major depressive disorder Major depression recurrence: recurrent Active/Remission status: currently active Major depression episode severity: moderate Qualified Code(s): F33.1 - Major depressive disorder, recurrent, moderate Code(s): F32.9 - Major depressive disorder, single episode, unspecified Status: Acute Assessment and Plan: Restart oral medications (7) Type 1 diabetes mellitus: Qualifiers: Diabetes mellitus complication status: with kidney complications Diabetes mellitus complication detail: with chronic kidney disease Chronic kidney disease stage: on chronic dialysis Qualified Code(s): E10.22 - Type 1 diabetes mellitus with diabetic chronic kidney disease; N18.6 - End stage renal disease; Z99.2 - Dependence on renal dialysis Code(s): E10.9 - Type 1 diabetes mellitus without complications Status: Chronic Assessment and Plan: Accu-Cheks every 6 hours with High dose sliding scale and check A1c. (8) Tobacco dependence: Code(s): F17.200 - Nicotine dependence, unspecified, uncomplicated Status: Acute Assessment and Plan: Counselling about smoking cessation (9) DKA (diabetic ketoacidoses): Code(s): E11.10 - Type 2 diabetes mellitus with ketoacidosis without coma Status: Acute Assessment and Plan: Pt was in DKA last night now on his DM diet and lantus dosing. Subjective Date/time seen: 03/07/21 14:05 Interval history: Pt was successfully extubated yesterday, back in ICU because of DKA. Pt feels at lot better. Started back on his diet, hopeful discharge tomorrow after dialysis. Review of Systems Review of Systems: All systems reviewed & are unremarkable except as noted in HPI and below Exam Const: General: other (young man ) Nutritional Appearance: thin Orientation/consciousness: oriented to person and oriented to place Neck: Neck: normal visual inspection, full ROM, no lymphadenopathy, trachea midline and supple Thyroid: thyroid normal Carotids: normal carotid upstroke Lymphatic: no lymphadenopathy noted Chest: Chest palpation & inspection: normal inspection of the chest Cardio: Palpation: normal PMI Rate: regular rate Rhythm: regular rhythm Heart sounds: S1 normal heart sound present and S2 normal heart sound present Peripheral pulses: Peripheral pulses 2+ throughout GI: Inspection: normal to inspection Auscultation: normal bowel sounds Skin: General skin exam: normal c
[2021-03-07] MEDS: LORazepam (*CRX) 0.5 MG TABLET PO (16:39)
[2021-03-07 16:44] LABS: Glucose Point of Care 428 (65-105)
--- NOTE | 2021-03-07 17:45 | PC.NURSE ---
This patient, Ish Corley, was received from [ICU 7 ] on 03/07/21 at 1746. Patient/family oriented to unit policies and routines.
--- NOTE | 2021-03-07 17:46 | PC.NURSE ---
This patient, Ish Corley, was transferred to [facility] on 03/07/21 at 1735. Personal belongings sent with patient. Report given to Argelia RN. Appropriate documentation sent with patient.
--- NOTE | 2021-03-07 18:21 | PC.NURSE ---
This nurse along with ADILENE Dyson educated the patient on importance of removing snacks that were brought from home, knife brought from home, and prescription medications brought from home. This nurse and ADILENE Dyson were able to look through patient's belongings, with their permission, those previously mentioned items were found in a duffle bag in the room. Those items were given to the patient's spouse to take home. This information will be passed along to the retail shift leader. It will be important to check the patient's room when the spouse leaves to make sure she actually took those items with her and they no longer remain in the room.
[2021-03-07 18:25] LABS: Anion Gap 18 mmol/L (8-16); Blood Urea Nitrogen 57 mg/dL (9-20); Carbon Dioxide 24 mmol/L (22-30); Chloride 94 mmol/L (98-107); Estimated CRCL calculation 10 ml/min; Estimated Glomerular Filt Rate 11; Glucose 464 mg/dL (75-110); Potassium 4.2 mmol/L (3.4-5.0); Sodium 136 mmol/L (137-145)
--- NOTE | 2021-03-07 18:29 | PC.NURSE ---
Patient called this nurse to come in the room and patient stated that their insulin pens. Patient and state that there are two insulin pens missing from his belongings. I have called the ICU department as that is where he was transferred from. Oscar from ICU department brought the insulin pens personally and gave them to me. I will take the pens to the room and give to the spouse for her to take home. I will also pass this information along to [employer] so they can check to make sure these items have been removed for patient's safety.
[2021-03-07] MEDS: INSULIN GLARGINE (*BKC) 100 UNITS/ML 10 UNITS SUB-Q (20:38)
[2021-03-07 20:45] LABS: Glucose Point of Care 371 (65-105)
[2021-03-07 21:18] LABS: Anion Gap 12 mmol/L (8-16); Blood Urea Nitrogen 61 mg/dL (9-20); Calcium 8.7 mg/dL (8.4-10.2); Carbon Dioxide 26 mmol/L (22-30); Chloride 94 mmol/L (98-107); Estimated CRCL calculation 10 ml/min; Estimated Glomerular Filt Rate 11; Glucose 363 mg/dL (75-110); Potassium 4.6 mmol/L (3.4-5.0); Sodium 132 mmol/L (137-145)
[2021-03-08] MEDS: HYDROcodone/acetaminophen (*CRX) 5-325 MG TABLET 1 TAB PO ×2 (04:40→11:44)
[2021-03-08 05:46] VITALS: BP 126/59; PULSE 77; RESP 14; TEMP 36.5; O2SAT 94
[2021-03-08] MEDS: LORazepam (*CRX) 0.5 MG TABLET PO (05:46)
[2021-03-08 07:07] LABS: Hemoglobin 8.1 g/dL (14.0-18.0); Mean Corpuscular HGB Conc 32.4 g/dl (32-36); Mean Corpuscular Hemoglobin 29.7 pg (26-34); Mean Corpuscular Volume 91.6 fl (80-100); Mean Platelet Volume 9.8 fl (7.4-10.4); Platelet Count Result 600 k/mm3 (150-375); Red Blood Count 2.73 M/mm3 (4.6-6.20); Red Cell Distribution Width 16.1 % (11.5-14.5); White Blood Count 10.4 K/mm3 (4.5-10.0)
[2021-03-08 07:14] LABS: Glucose Point of Care 87 (65-105)
[2021-03-08 07:15] LABS: Anion Gap 11 mmol/L (8-16); Blood Urea Nitrogen 63 mg/dL (9-20); Calcium 8.6 mg/dL (8.4-10.2); Carbon Dioxide 29 mmol/L (22-30); Chloride 95 mmol/L (98-107); Estimated CRCL calculation 9 ml/min; Estimated Glomerular Filt Rate 9; Glucose 111 mg/dL (75-110); Phosphorus 7.7 mg/dL (2.5-4.5); Potassium 4.1 mmol/L (3.4-5.0); Sodium 135 mmol/L (137-145)
[2021-03-08 08:20] VITALS: PULSE 91; RESP 20
[2021-03-08 08:27] VITALS: PULSE 91; RESP 20
[2021-03-08] MEDS: FAMOTIDINE 20 MG/2 ML VIAL IV PUSH (08:28)
[2021-03-08] MEDS: NICOTINE (*PBKC) 14 MG PATCH 1 PATCH TRANSDERM (08:28)
[2021-03-08] MEDS: INSULIN GLARGINE (*BKC) 100 UNITS/ML 10 UNITS SUB-Q (08:29)
[2021-03-08 08:43] VITALS: BP 126/54; PULSE 89; RESP 16; TEMP 36.3; O2SAT 96
--- NOTE | 2021-03-08 11:10 | PC.NURSE ---
Pt reported to me that his upper dentures are missing. ICU was called as well as lost and found, both told me this has been an issue and they are being looked for.
[2021-03-08 11:20] LABS: Glucose Point of Care 296 (65-105)
--- NOTE | 2021-03-08 12:50 | PM.DS ---
DS: Admitting Diagnosis Admitting Diagnosis Admitting Diagnosis: Shortness of breath DS: Discharge Diagnosis Discharge Diagnosis (1) Acute respiratory failure with hypoxia and hypercapnia: Code(s): J96.01 - Acute respiratory failure with hypoxia; J96.02 - Acute respiratory failure with hypercapnia Status: Acute Assessment and Plan: Pt was doing well on room air, breathing is better after diuresis and dialysis. Discharge today home with outpatient dialysis. (2) Hypertensive emergency: Code(s): I16.1 - Hypertensive emergency Status: Acute Assessment and Plan: The patient was given nitro paste, labetalol and hydralazine. Bp is better. Pt is non compliant. (3) End-stage renal disease on hemodialysis: Code(s): N18.6 - End stage renal disease; Z99.2 - Dependence on renal dialysis Status: Acute Assessment and Plan: Dr. Huynh has been consulted. The patient typically has dialysis on Monday. The patient is noncompliant (4) Acute hyperglycemia: Code(s): R73.9 - Hyperglycemia, unspecified Status: Acute Assessment and Plan: Patient has diabetes insulin dependent. hbaic is 8. (5) CHF exacerbation: Code(s): I50.9 - Heart failure, unspecified Status: Acute Assessment and Plan: The patient has pulmonary edema from end-stage renal disease and need for hemodialysis. (6) Depression: Qualifiers: Depression Type: major depressive disorder Major depression recurrence: recurrent Active/Remission status: currently active Major depression episode severity: moderate Qualified Code(s): F33.1 - Major depressive disorder, recurrent, moderate Code(s): F32.9 - Major depressive disorder, single episode, unspecified Status: Acute Assessment and Plan: Restart oral medications (7) Type 1 diabetes mellitus: Qualifiers: Diabetes mellitus complication status: with kidney complications Diabetes mellitus complication detail: with chronic kidney disease Chronic kidney disease stage: on chronic dialysis Qualified Code(s): E10.22 - Type 1 diabetes mellitus with diabetic chronic kidney disease; N18.6 - End stage renal disease; Z99.2 - Dependence on renal dialysis Code(s): E10.9 - Type 1 diabetes mellitus without complications Status: Chronic Assessment and Plan: Pt advised compliance to insulin and lantus changed to BID 10 units (8) Tobacco dependence: Code(s): F17.200 - Nicotine dependence, unspecified, uncomplicated Status: Acute Assessment and Plan: Counselling about smoking cessation (9) DKA (diabetic ketoacidoses): Code(s): E11.10 - Type 2 diabetes mellitus with ketoacidosis without coma Status: Resolved Assessment and Plan: Pt was in DKA last night now on his DM diet and lantus dosing. DS: Summary Hospital Course Hospital Course: Pt was successfully extubated, doing well on room air, went back to ICU because of DKA. DKA resolved. Pt feels at lot better. Started back on his diet, stable for discharge today. Time Spent with Patient Time attestation: Total time spent providing and/or coordinating discharge services:40 minutes on day of discharge Exam Const: General: other (young man ) Nutritional Appearance: thin Orientation/consciousness: oriented to person and oriented to place Chest: Chest palpation & inspection: normal inspection of the chest Resp: Effort & Inspection: normal respiratory effort and no respiratory distress (clear lung worthy ) Cardio: Palpation: normal PMI Rate: regular rate Rhythm: regular rhythm Heart sounds: S1 normal heart sound present and S2 normal heart sound present Peripheral pulses: Peripheral pulses 2+ throughout GI: Inspection: normal to inspection Auscultation: normal bowel sounds Neuro: General: oriented to person and oriented to place Cranial nerves: Yes Equal, round and reactive pupi
[2021-03-09 13:12] LABS: Haptoglobin 349 mg/dL (43-212)
== END 2021-03-08 12:01 | disposition home or self-care (01) | DRG 208 ==
LOC: ANHED 07:52 → ANHIMU 10:55 → ANH3MED 03-08 06:52 → ANHICU 03-10 13:03 → ANHIMU 03-10 13:03
PROVIDERS: Family Medicine; Internal Medicine; Internal Medicine Nephrology; Nurse Practitioner; Admitting Provider Hospitalist; Emergency Provider Emergency Medicine; PCP Emergency Medicine; Visit Provider Family Medicine
DX: J96.01 Acute respiratory failure with hypoxia (principal); N18.6 End stage renal disease; I13.2 Hypertensive heart and chronic kidney disease with heart failure and with stage 5 chronic kidney disease, or end stage renal disease; I16.1 Hypertensive emergency; F33.1 Major depressive disorder, recurrent, moderate; I42.9 Cardiomyopathy, unspecified; D63.1 Anemia in chronic kidney disease; E87.5 Hyperkalemia; F17.210 Nicotine dependence, cigarettes, uncomplicated; J96.02 Acute respiratory failure with hypercapnia; J44.9 Chronic obstructive pulmonary disease, unspecified; E10.22 Type 1 diabetes mellitus with diabetic chronic kidney disease; E10.65 Type 1 diabetes mellitus with hyperglycemia; I50.9 Heart failure, unspecified; Z99.2 Dependence on renal dialysis; F41.9 Anxiety disorder, unspecified; N25.0 Renal osteodystrophy; K21.9 Gastro-esophageal reflux disease without esophagitis; I25.10 Atherosclerotic heart disease of native coronary artery without angina pectoris; I25.2 Old myocardial infarction; N40.0 Benign prostatic hyperplasia without lower urinary tract symptoms; E55.9 Vitamin D deficiency, unspecified; E10.40 Type 1 diabetes mellitus with diabetic neuropathy, unspecified; E10.319 Type 1 diabetes mellitus with unspecified diabetic retinopathy without macular edema; Z79.4 Long term (current) use of insulin; Z79.82 Long term (current) use of aspirin; Z86.74 Personal history of sudden cardiac arrest; Z89.612 Acquired absence of left leg above knee; Z89.511 Acquired absence of right leg below knee; Z95.5 Presence of coronary angioplasty implant and graft; Z91.19 Patient's noncompliance with other medical treatment and regimen
CPT/HCPCS: 36415; 36430; 36600; 71045; 73552; 80048; 80053; 80069; 82010; 82375; 82805; 82948; 83010; 83036; 83050; 83540; 83550; 83615; 83735; 83880; 84100; 84484; 85025; 85027; 85610; 85730; 86850; 86900; 86901; 86923; 87086; 92610; 93005; 93306; 94002; 94640; 96372; 96374; 96375; 99285; A9270; G0257; J0360; J1170; J1815; J1940; J2060; J2250; J2704; J7040; P9016; Q5106

== ENCOUNTER 2021-03-11 01:16 | Inpatient (IN) | payer MEDICARE, MEDICAID, SELFPAY ==
[2021-03-11] VITALS (19 sets, daily range): BP systolic 158–189; BP diastolic 74–91; PULSE 81–107; RESP 18–25; TEMP 36.6–37.2; O2SAT 95–100; BMI 21.2
--- NOTE | ~2021-03-11 | XR_ITS ---
XR abdomen NG/feed tube insert INDICATION: Evaluate NG tube position. TECHNIQUE: Limited KUB perform for evaluating NG tube . COMPARISON: Comparison to multiple prior studies sequentially, with oldest reviewed study dated 12/2019. FINDINGS: NG tube tip in the stomach. Visualized bowel gas pattern is unremarkable.There are extensi ve bilateral renal arterial calcifications. IMPRESSION: 1: NG tube tip in the stomach. Reviewed, dictated and finalized at location B.
--- NOTE | ~2021-03-11 | XR_ITS ---
XR chest 1V portable DATE: 03/13/2021 05:22 INDICATION: Respiratory failure TECHNIQUE: Portable AP chest on 03/13/2021 at 0511 hours COMPARISON: Portable AP chest on 03/12/2021 and 0 854 FINDINGS: ET tube in satisfactory position 5 cm above luciano. NG tube in stomach. Normal heart size. Aortic calcification and minimal unfolding. No hilar or mediastinal enlargement. Bilateral hyperinflation. Minimal infiltrate or atelectasis at the lung bases, primarily on the left. No pleural effusion or pulmonary vascular congestion or pneumothorax. Diffuse osteopenia. IMPRESSION: Minimal infiltrate or atelectasis at the lung bases, primarily on the left Reviewed, dictated and finalized at location A. IMPRESSION: Minimal infiltrate or atelectasis at the lung bases, primarily on t he left
--- NOTE | ~2021-03-11 | XR_ITS ---
EXAMINATION: XR chest 2V DATE: 03/11/2021 02:05 INDICATION: Shortness of breath. TECHNIQUE: Frontal and lateral views of the chest were obtained. COMPARISON: Chest single view 03/06/2021, CT abdomen and pelvis 07/20/2020 FINDINGS: The chest demonstrates clear lungs without pneumonia, pleural effusion, or pneumothorax. Th e heart size is normal. There is an old healed left rib fracture. IMPRESSION: 1. No acute cardiopulmonary disease. Reviewed, dictated and finalized at location A.
--- NOTE | ~2021-03-11 | XR_ITS ---
EXAMINATION: XR chest ET placement EXAM DATE: 03/12/2021 08:55 INDICATION: Et tube placement . TECHNIQUE: Portable AP frontal chest x-ray was obtained. Comparison is made to prior examination from 03/11/2021. FINDINGS: Endotracheal tube tip is 4.2 centimeters above the luciano. There is a nasogastric tube see n with tip collimated off the study, but below the left hemidiaphragm. Nodular density over left midlung zone laterally probably an anterior fracture of the left 4th rib. There is small amount of bilateral mid lung zone prominent reticulation, could be interstitial lung d isease which was identified on yesterday's CT. Can't exclude developing reticulonodular acute infecti ous process. Mild hyperinflation. There are no sizable pleural effusions. There is no pneumothorax suspected. Cardiomediastinal silhouette is normal. There is aortic arteriosclerosis. The bones an d soft tissues are unremarkable. IMPRESSION: 1. Line and tube(s) in position. 2. Small amount of bilateral mid lung zone prominent reticulation, could be mild interstitial lung d isease. Can't exclude developing acute infectious process. Reviewed, dictated and finalized at location A. IMPRESSION: 1. Line and tube(s) in position. 2. Small amount of bilateral mid lung zone prominent reticulation, could be mi ld interstitial lung disease. Can't exclude developing acute infectious process .
--- NOTE | ~2021-03-11 | CT_ITS ---
EXAMINATION: CTA chest PE protocol EXAM DATE: 03/11/2021 13:34 INDICATION: Dyspnea. TECHNIQUE: Spiral CTA of the chest (pulmonary arteries) was performed with 100 cc Omnipaque 350 intr avenous contrast injection. Images were acquired during the pulmonary arterial phase. Coronal maxi mum intensity projection 3D-reconstructions were created by the technologist on dedicated workstation . Axial, coronal and sagittal reformatted images were reviewed. The dose-length product (DLP) for t his examination was 204.61 mGy-cm. The exposure was tailored according to patient size (auto mA exp osure control), and iterative reconstruction (ASIR) was used as additional dose reduction technique. There is no prior study for comparison. FINDINGS: Pulmonary arteries are well opacified and without intraluminal filling defects. No thora cic aortic dissection. Mild to moderate interlobular septal thickening in the lower lobes probably i nterstitial lung disease. There is mild emphysema. Right middle lobe subsegmental atelectasis. There are no pleural or pericardial effusions. Tracheobronchial tree is patent. There is no mediastina l, hilar or axillary lymphadenopathy. There is no pneumothorax. Heart normal in size. There is dense left coronary artery, could be severe coronary arterial sclerosis and/or coronary pauline ry stent(s), which are difficult to distinguish due to cardiac motion on this non-gated exam. Correla te with cardiac history and consider cardiology consult if not recently evaluated. Dense mitral annul ar calcifications. Patient may have hepatomegaly. There is some generalized body wall edema. A left- sided rib fractures. There is thoracic spondylosis without osteoblastic or osteolytic lesions identif ied. IMPRESSION: 1. No pulmonary emboli. 2. Mild interstitial lung disease. 3. Possible hepatomegaly. 4. Generalized body wall fat stranding. 5. Dense left anterior descending coronary arteries versus stent Reviewed, dictated and finalized at location A.
--- NOTE | 2021-03-11 01:26 | ECG_ITS ---
Measurements Intervals [place] Rate: 98 P: [place]: 0 QRS: 82 QRSD: 81 T: 70 QT: 357 QTc: 457 Interpretive Statements SINUS RHYTHM BORDERLINE ST ABNORMALITY- INF/LAT LEADS BASELINE ARTIFACT- V2 BORDERLINE ECG Electronically Signed On 03-11-2021 7:14:50 CDT by Edmond Elias D.O.
--- NOTE | 2021-03-11 01:43 | PC.NURSE ---
Pt presents to ED with complaints of sob that onset last night. Pt states sob is greatest when he is relaxed. Pt noted to be dialysis pt and states he attended dialysis Monday03/10/21. Pt denies nvd, fever, chills and chest pain at this time. Pt states sob onset at 2200. O2 saturation noted at 100% on room air. Pt is tachypneic with RR of 26 but breathing is otherwise even and unlabored. Pt also complaining of pain to left stump ajs he has an above knee amputation. 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 Pt noted to be alert, stable and in no obvious distress at this time. Call button and personal items within reach. Advised to press call button for assistance.
--- NOTE | 2021-03-11 01:48 | PC.NURSE ---
Pt to radiology via cart.
--- NOTE | 2021-03-11 01:56 | PC.NURSE ---
Pt returned from radiology.
[2021-03-11 02:02] LABS: Basophils Absolute Auto 0.1 K/mm3 (0.0-0.1); Basophils Percent Auto 0.6 % (0.2-1.2); Eosinophils Absolute Auto 0.6 K/mm3 (0-0.3); Eosinophils Percent Auto 5.2 % (0-4.4); Hematocrit 27.8 % (42.0-52.0); Hemoglobin 8.8 g/dL (14.0-18.0); Immature Granulocyte Absolute 0.12 K/mm3 (0.00-0.031); Lymphocytes Absolute Auto 1.92 K/mm3 (0.9-3.2); Lymphocytes Percent Auto 15.6 % (18.3-44.2); Mean Corpuscular HGB Conc 31.7 g/dl (32-36); Mean Corpuscular Hemoglobin 30.9 pg (26-34); Mean Corpuscular Volume 97.5 fl (80-100); Mean Platelet Volume 9.5 fl (7.4-10.4); Monocytes Absolute Auto 1.1 K/mm3 (0.1-0.6); Neutrophils Absolute Auto 8.4 K/mm3 (1.3-6.7); Neutrophils Percent Auto 68.6 % (45.5-73.1); Platelet Count Result 463 k/mm3 (150-375); Red Blood Count 2.85 M/mm3 (4.6-6.20); Red Cell Distribution Width 17.4 % (11.5-14.5); White Blood Count 12.3 K/mm3 (4.5-10.0)
--- NOTE | 2021-03-11 02:02 | ED.SOB ---
HPI - SOB/Dyspnea General Chief Complaint: Shortness of Breath/Dyspnea Stated Complaint: Shortness of breath Time Seen by Provider: 03/11/21 01:54 Source: patient Mode of arrival: ambulatory Limitations: no limitations History of Present Illness HPI Narrative: Patient is a 55-year-old male complaining of shortness of breath that started tonight, I think I had flash edema . Patient states that he has a history of flash pulmonary edema and states that this feels like the same when he has it. Patient states that he has a history of end-stage renal disease on dialysis, Mondays and Fridays, had his dialysis today. Patient denies any chest pain, cough, abdominal pain or distention, nausea, vomiting, fever or chills. Related Data Home Medications Medication Instructions Recorded Confirmed furosemide 80 mg PO BID 02/05/20 03/05/21 aspirin 81 mg PO DAILY 07/02/20 03/05/21 Dang-Nilsa 1 tablet PO DAILY 07/23/20 03/05/21 albuterol sulfate 1 puff INHALATION QID 01/11/21 03/05/21 atorvastatin 80 mg PO HS 01/11/21 03/05/21 lorazepam 1 mg PO BID PRN 01/11/21 03/05/21 ropinirole 0.25 mg PO DIRECTED 01/11/21 03/05/21 Silver-Sept 1 applic TOPICAL DAILY 02/15/21 03/05/21 amlodipine 5 mg PO DAILY 02/15/21 03/05/21 gabapentin 300 mg PO DAILY 02/15/21 03/05/21 sevelamer carbonate 800 mg PO TID 02/15/21 03/05/21 vitamin B complex [B 1 tablet PO DAILY 02/15/21 03/05/21 Complex-Vitamin B12] carvedilol 25 mg tablet See Rx Instructions .ROUTE .COMPLEX 03/02/21 03/05/21 Allergies Allergy/AdvReac Type Severity Reaction Status Date / Time scopolamine Allergy Severe Unresponsiv Verified 03/11/21 01:17 e Review of Systems Review of Systems: All systems reviewed & are unremarkable except as noted in HPI and below Constitutional: Constitutional: Denies body ache(s), Denies chills, Denies excessive sweating, Denies fatigue, Denies fever(s), Denies headache(s), Denies lethargy, Denies malaise, Denies weakness and Denies weight loss Eyes: Eyes: Denies blurry vision, Denies change in vision and Denies loss of vision ENT: Denies dizziness, Denies ear discharge, Denies headache(s), Denies lip swelling, Denies epistaxis, Denies nasal congestion, Denies neck pain, Denies throat swelling and Denies tongue swelling Cardiovascular: Cardiovascular: Denies chest pain, Denies chest pain at rest, Denies chest pain with activity, Denies diaphoresis, Denies rapid heart rate, Denies edema, Denies irregular heart rhythm, Denies lightheadedness, Denies palpitations, Denies dyspnea and Denies dyspnea on exertion Respiratory: Respiratory: Denies chest congestion, Denies cough and Denies hemoptysis Gastrointestinal: Gastrointestinal: Denies abdominal pain, Denies melena, Denies hematochezia, Denies diarrhea, Denies nausea, Denies vomiting and Denies hematemesis Musculoskeletal: Musculoskeletal: Denies abnormal gait, Denies deformity, Denies joint swelling, Denies limited range of motion, Denies neck pain and Denies numbness Neurologic: Denies Abnormal speech present, Denies abnormal gait, Denies confusion, Denies dizziness, Denies headache(s), Denies focal weakness, Denies loss of vision, Denies numbness, Denies Other visual disturbances, Denies Sensory deficit (Neuro) and Denies weakness Psychiatric: Psychiatric: Denies confusion, Denies depression, Denies auditory hallucinations, Denies homicidal ideation and Denies suicidal ideation Endocrine: Endocrine: Denies cold intolerance, Denies excessive sweating, Denies fatigue, Denies heat intolerance and Denies palpitations Hematologic/Lymphatic: Hematologic/Lymphatic: Denies easy bleeding and Denies easy bruising Allergic/Immunologic: Allergic/Immunologic: Denies lip swelling, Denies throat swelling and Denies tongue swelling PMFSH Past Medical History Medical History Amputation above knee Anxiety Benign prostatic hyperplasia Bradycardic cardiac arrest (~0
[2021-03-11 02:08] LABS: Anion Gap 9 mmol/L (8-16); Blood Urea Nitrogen 57 mg/dL (9-20); Calcium 8.4 mg/dL (8.4-10.2); Carbon Dioxide 30 mmol/L (22-30); Chloride 102 mmol/L (98-107); Estimated CRCL calculation 16 ml/min; Estimated Glomerular Filt Rate 15; Glucose 101 mg/dL (75-110); Potassium 4.5 mmol/L (3.4-5.0); Sodium 141 mmol/L (137-145)
[2021-03-11] MEDS: FUROSEMIDE INJ 40 MG/4 ML VIAL IV PUSH (02:13)
--- NOTE | 2021-03-11 02:13 | PC.NURSE ---
EDME at bedside.
--- NOTE | 2021-03-11 02:18 | PC.NURSE ---
Respiratory at bedside for ABG.
[2021-03-11] MEDS: MORPHINE SULFATE (*CRX) 2 MG/ML INJ IV PUSH (02:24)
[2021-03-11 02:26] LABS: Alveolar/Arterial O2 Gradient 39.5 mmHg; Base Excess ABG 3.2 mEq/l (+/-2.0); Carboxyhemoglobin 2.6 % THb (0-2.0); Device ROOM AIR; Fractional Inspired Oxygen 21 %; HCO3 ABG 26.7 mEq/l (22.0-26.0); Methemoglobin ABG 0.3 %THb (0-1.5); Oxygen Content ABG 11.3 %vol (16.0-22.0); Oxygen Saturation ABG 94.8 % (95.0-100.0); Oxyhemoglobin 90.9 % THb (90.0-100.0); PCO2 ABG 35.9 mmHg (35.0-45.0); PO2 ABG 67.2 mmHg (80.0-100.0); Reduced Hemoglobin 6.2 %THb (0-5.0); Site Drawn RIGHT BRACHIAL; Total Hemoglobin 8.8 g/dL (12.0-18.0); pH ABG 7.489 (7.350-7.450)
--- NOTE | 2021-03-11 02:53 | PC.NURSE ---
RN spoke with Corinna in lab and she is adding on PT, PTT at this time. Paresh spoke with Rosana @ 0227, and it was not added on.
[2021-03-11 03:04] LABS: NT Pro B Type Natriuretic Pept > 35000 pg/mL (5-100); Troponin I 0.187 ng/mL (0.000-0.034)
[2021-03-11 03:05] LABS: Glucose Point of Care 123 (65-105)
[2021-03-11 03:08] LABS: INR 0.9
--- NOTE | 2021-03-11 03:08 | PC.NURSE ---
Per ERP request pt belongings removed from room and placed outside the room. Belongings remain in line of site of pt.
[2021-03-11 03:10] LABS: Partial Thromboplastin Time 31.3 SECONDS (22.3-36.8)
--- NOTE | 2021-03-11 03:45 | PC.NURSE ---
pt resting on cart in its lowest position with call button and personal items within reach. vitals are stable and pt in no obvious distress.
--- NOTE | 2021-03-11 05:14 | PC.NURSE ---
glucose 102
--- NOTE | 2021-03-11 05:14 | PC.NURSE ---
Pt resting on cart in its lowest position with call button and personal items within reach. Vitals are stable and pt in no obvious distress at this time. Advised to press call button for assistance.
[2021-03-11 05:18] LABS: Glucose Point of Care 102 (65-105)
[2021-03-11 05:47] LABS: Troponin I 0.198 ng/mL (0.000-0.034)
--- NOTE | 2021-03-11 07:01 | ADMGEN ---
This patient, Ish Corley, was admitted to Intensive Care Unit-7 at 0650 on 03/11/2021. Patient/family oriented to hospital policies and general routines including ID bracelet, bed and alarms, visiting hours, pain management, procedures, bathroom and other care routines, personal items, smoking policy, room service/diet, and visiting hours. Information on how to activate the Rapid Response Team has been discussed. Patient/Family are encouraged to report perceived risks to care and to ask questions if they do not understand what they are told or what they should do.
[2021-03-11 07:54] LABS: Glucose Point of Care 127 (65-105)
--- NOTE | 2021-03-11 08:50 | PM.IMHP ---
H&P: HPI History of Present Illness Date/Time: 03/11/21 08:50 PATIENT PLACED UNDER OBSERVATION STATUS Chief Complaint: Shortness of breath Narrative: 55-year-old male with end-stage renal disease, severe peripheral arterial disease and CHF who presents to the emergency room with complaints of shortness of breath. Patient was hospitalized in January of this year at [facility] and underwent left femoral to the below the knee popliteal artery bypass. He also had a left transmetatarsal amputation during that hospital course. Patient was hospitalized here on February 15 for shortness of breath found to have ESBL E coli and flash pulmonary edema. There was necrosis at the foot wound site felt to be the source of the infection and ultimately patient was transferred back [facility] where patient underwent a left [id number]-clo-jaon amputation. Patient was rehospitalized here on March 05 for shortness of breath and again found to have flash pulmonary edema. Patient has known history of noncompliance and drinks excessive amounts of free fluids. Patient was intubated during the hospital course. With successive dialysis treatments, patient able to be extubated. He overall did well and was able to be discharged home on 03/08/2021. Since being home patient states he has been doing well. He was discharged on 03/08 to the dialysis unit and he underwent treatment. He does hemodialysis Monday, Monday, Monday. He had a 2nd hemodialysis treatment on 03/10 where they removed 3 L. That evening however he became short of breath. He denies any chest pain or palpitations. No cough. He states he is compliant with a low-sodium diet and he is not drinking excessive fluids. His weight has been stable. He has not been hospitalized since 03/08/2021. He denies any odynophagia or dysphagia. No fever or chills. No nausea or vomiting. No abdominal pain or back pain. He makes small amounts urine. He denies any dysuria or hematuria. He was noted to have a small coccyx wound that he states has been present since his time in [place] in January. Does complain of right leg weakness and has fallen at times. 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 Because this reason he presented to the emergency room for evaluation. In the Emergency room, his pulse was 102 with a blood pressure 171/74. BNP was greater than 35,000. Troponin was elevated to 0.198. EKG showed borderline ST abnormalities in inferior and lateral leads. EKG was reviewed personally and appears improved from prior EKG from a few days ago. Chest x-ray was clear. Patient was admitted for further care. For his diabetes, patient states he checks his glucose 4 to 5 times a day and runs 110-300 range. He takes Lantus 12 units in the morning and 10 units in the evening. He is also on Humalog 3 units at mealtimes plus sliding scale. Review of Systems Review of Systems: All systems reviewed & are unremarkable except as noted in HPI and below PMFSH Past Medical History Medical History (Updated 03/11/21 @ 18:44 by Jony Martino MD) Amputation above knee Anxiety Benign prostatic hyperplasia Bradycardic cardiac arrest (~07/23/20) In the setting of severe hyperkalemia, acute pulmonary edema, and respiratory failure Chronic anemia Congestive heart failure Echocardiogram in August 2020 showed a mildly enlarged left ventricular chamber, severely reduced left ventricular systolic function with an estimated ejection fraction of 25 to 30%, moderately increased LV wall thickness, grade 2 diastolic dysfunction, severe aortic valve sclerosis, mild mitral, tricuspid, and pulmonic valve regurgitation, mild pulmonary hypertension with an estimated arterial pressure 43 mmHg, and areas of hypokinesis including the apex, inferior wall, anterior wall, inferoseptal wall, anterolateral wall, and anteroseptal wall. Coronary artery disease With
[2021-03-11] MEDS: FUROSEMIDE INJ 40 MG/4 ML VIAL 20 MG IV PUSH (08:51)
[2021-03-11] MEDS: SILVERGEL (ELTA) 45 ML 1 APPLIC TOPICAL (08:51)
[2021-03-11] MEDS: carvediloL 25 MG TABLET 50 MG PO (11:07)
[2021-03-11] MEDS: HYDROcodone/acetaminophen (*CRX) 5-325 MG TABLET 1 TAB PO ×3 (11:08→23:58)
[2021-03-11] MEDS: INSULIN ASPART (*BKC) 100 UNITS/ML SUB-Q ×2 (11:14→15:43)
[2021-03-11 11:16] LABS: Glucose Point of Care 375 (65-105)
[2021-03-11] MEDS: ALBUTEROL SULFATE (*SP) AEROSOL 1 PUFF INHALATION ×2 (11:18→21:12)
[2021-03-11] MEDS: ONDANSETRON INJ 4 MG/2 ML VIAL IV PUSH (11:29)
[2021-03-11] MEDS: INSULIN GLARGINE (*BKC) 100 UNITS/ML 10 UNITS SUB-Q (11:29)
[2021-03-11] MEDS: SEVELAMER CARBONATE 800 MG TABLET PO ×2 (11:52→15:40)
[2021-03-11] MEDS: SERTRALINE HCL 50 MG TABLET 100 MG PO (12:16)
[2021-03-11] MEDS: ASPIRIN 81 MG ENTERIC TABLET PO (12:16)
[2021-03-11] MEDS: GABAPENTIN 300 MG CAPSULE PO (12:16)
[2021-03-11] MEDS: amLODIPine BESYLATE 5 MG TABLET PO (12:17)
[2021-03-11] MEDS: FUROSEMIDE 80 MG TABLET PO (15:40)
[2021-03-11 15:43] LABS: Glucose Point of Care 236 (65-105)
--- NOTE | 2021-03-11 15:43 | PM.CNNEP ---
Assessment and Plan Assessment and plan (1) End stage renal disease: Code(s): N18.6 - End stage renal disease Status: Chronic Assessment and Plan: HD tomorrow and continue M/W/F schedule optimize electrolytes, volume status, and clearance (2) Dyspnea: Code(s): R06.00 - Dyspnea, unspecified Status: Acute Assessment and Plan: etiology? no evidence of fluid overload by CXR or CT scan pulmonary embolus ruled out by chest CT no noted hypoxia at this time element of COPD/reactive airway disease(?) (3) Hypertension: Qualifiers: Hypertension type: unspecified Qualified Code(s): I10 - Essential (primary) hypertension Code(s): I10 - Essential (primary) hypertension Status: Chronic Assessment and Plan: somewhat elevated at this time resume home BP medications follow trend of hemodyanamics (4) Anemia: Code(s): D64.9 - Anemia, unspecified Status: Chronic Assessment and Plan: due to ESRD and recent hospitalizations [facility] with HD follow trend of H/H (5) Peripheral vascular disease: Code(s): I73.9 - Peripheral vascular disease, unspecified Status: Acute Assessment and Plan: s/p recent left AKA and previous right BKA stump local wound care for left AKA (6) Diabetes: Qualifiers: Diabetes mellitus complication detail: with other circulatory complications Diabetes mellitus complication status: with circulatory complication Diabetes mellitus type: type 1 Qualified Code(s): E10.59 - Type 1 diabetes mellitus with other circulatory complications Code(s): E11.9 - Type 2 diabetes mellitus without complications Status: Chronic Assessment and Plan: follow accuchecks glycemic control Will continue to follow. History of Present Illness Reason for Consult Consult date: 03/11/21 Reason for consult: end stage renal disease Chief Complaint Chief complaint: chf exacerbation, ESRD History of Present Illness Narrative: The patient is a 55-year-old Caucausian male with an extensive medical history as outlined below who presented to [facility] emergency room with complaints of shortness of breath. The patient was just recently hospitalized here [facility] but a week ago for shortness of breath secondary to flash pulmonary edema and hypertension. This was further complicated by issues relating to excessive drinking of fluids as well. During that hospital stay he was intubated and with aggressive dialysis and fluid removal he was able to be extubated and subsequently did reasonably well and was discharged on 03/08/21. Since discharge, he had been doing reasonably well and was compliant with his dialysis treatments following at hospital discharge. His last dialysis treatment was on 03/10/21 and he tolerated the procedure reasonably well and was able to get down to his dry weight. However, later that evening, he developed some mild shortness of breath without any other acute symptoms relating to chest pain, palpitations, cough, fever, chills, nausea, vomiting, or abdominal pain. Initially, the shortness of breath was tolerable but then by the next morning (day of admission), it seemed to be somewhat worse for this reason, he came to the emergency room for further evaluation. Workup and evaluation emergency room demonstrated the patient to be somewhat hypertensive with a systolic BP in the 170s, BNP greater than 35,000, and EKG did not demonstrate any significant changes from previous readings. His chest x-ray did not demonstrate any evidence of pulmonary edema/vascular congestion, infiltrate, or effusions. However, given his complex medical history as noted as well as his recent hospitalization, he was admitted to the hospital for further evaluation and therapy. Since his admission, he still has shortness of breath but he has been able to maintain his oxygen saturations on room
[2021-03-11] MEDS: DEXTROSE 50% 25 GM/50 ML SYRINGE IV PUSH (21:00)
[2021-03-11] MEDS: TICAGRELOR 90 MG TABLET PO (21:11)
[2021-03-11] MEDS: HEPARIN SODIUM 5,000 UNITS/ML VIAL 5000 UNITS SUB-Q (21:11)
[2021-03-11] MEDS: rOPINIRole HCL 0.25 MG TABLET PO (21:11)
[2021-03-11] MEDS: ATORVASTATIN 40 MG TABLET 80 MG PO (21:11)
[2021-03-11] MEDS: CARBAMIDE PEROXIDE 6.5% OT SOLN 15 ML BTL 5 DROP EACH EAR (21:22)
[2021-03-11 21:28] LABS: Glucose Point of Care 56 (65-105)
[2021-03-11 21:28] LABS: Glucose Point of Care 121 (65-105)
[2021-03-11 23:41] LABS: Glucose Point of Care 128 (65-105)
[2021-03-12] VITALS (43 sets, daily range): BP systolic 88–213; BP diastolic 55–101; PULSE 71–139; RESP 20–34; TEMP 36–37; O2SAT 88–100
[2021-03-12 04:19] LABS: Hematocrit 25.3 % (42.0-52.0); Mean Corpuscular HGB Conc 31.6 g/dl (32-36); Mean Corpuscular Hemoglobin 30.2 pg (26-34); Mean Corpuscular Volume 95.5 fl (80-100); Mean Platelet Volume 9.6 fl (7.4-10.4); Platelet Count Result 430 k/mm3 (150-375); Red Blood Count 2.65 M/mm3 (4.6-6.20); Red Cell Distribution Width 17.8 % (11.5-14.5); White Blood Count 12.4 K/mm3 (4.5-10.0)
[2021-03-12 04:41] LABS: Albumin Level 3.1 g/dL (3.5-5.1); Anion Gap 11 mmol/L (8-16); Blood Urea Nitrogen 86 mg/dL (9-20); Carbon Dioxide 25 mmol/L (22-30); Chloride 97 mmol/L (98-107); Estimated CRCL calculation 10 ml/min; Estimated Glomerular Filt Rate 9; Glucose 283 mg/dL (75-110); Phosphorus 7.9 mg/dL (2.5-4.5); Potassium 5.6 mmol/L (3.4-5.0); Sodium 133 mmol/L (137-145)
[2021-03-12] MEDS: hydrALAZINE HCL 20 MG/ML VIAL 10 MG IV PUSH (04:51)
[2021-03-12 05:40] LABS: Folic Acid 18.4 ng/mL (2.76->20); Vitamin B12 > 1000.0 pg/mL (239-931)
[2021-03-12] MEDS: ALBUTEROL SULFATE (*SP) AEROSOL 1 PUFF INHALATION (08:01)
[2021-03-12 08:39] LABS: Glucose Point of Care 400 (65-105)
[2021-03-12] MEDS: PROPOFOL IV EMULSION 100 ML 8.28 MG IV CONT (08:40)
--- NOTE | 2021-03-12 09:21 | WPDPROCEDUR ---
Procedures Intubation Intubation Date: 03/12/21 Intubation Time: 08:25 A pre-procedural Time-Out was completed immediately before starting the procedure and confirmed: Patient Identification, Site, Procedure, Patient Position and the Availability of Requisite Equipment: Yes Sedative: etomidate Laryngoscope: fiber optic video scope Assist device used: fiber optic device ET tube size: 7.5 Tube secured depth (cm): 24 Tube secured location: lips Tube placement confirmation: visualized tube passing through cords, equal breath sounds bilaterally, no breath sounds over epigastrium and confirmation by capnometry Patient tolerated procedure: well Intubation complications: none
--- NOTE | 2021-03-12 09:22 | WPDCNINT ---
Assessment and Plan Assessment and plan (1) Acute respiratory failure with hypoxia: Code(s): J96.01 - Acute respiratory failure with hypoxia Status: Acute Assessment and Plan: Patient initially presented with dyspnea chest x-ray was clear 100%, CTA did not show any pulmonary embolism. BNP has been elevated chronically and on this admission her BNP was > 92102. -patient this morning went into respiratory distress, was unresponsive and emergently intubated -currently on mechanical ventilation, CMV mode, 50% FiO2 and 8 of PEEP -chest x-ray and ABGs reviewed -unknown if it secondary to hypertensive urgency, negative pressure pulmonary edema, anxiety, volume overload, increased salt intake (2) Hypertensive urgency: Code(s): I16.0 - Hypertensive urgency Status: Acute Assessment and Plan: Systolic blood pressures were greater than 200 this morning -patient currently intubated propofol with is improved blood pressures -continue to monitor (3) ESRD (end stage renal disease) on dialysis: Code(s): N18.6 - End stage renal disease; Z99.2 - Dependence on renal dialysis Status: Chronic Assessment and Plan: Continue dialysis per Nephrology (4) Diabetes: Qualifiers: Diabetes mellitus complication detail: with other circulatory complications Diabetes mellitus complication status: with circulatory complication Diabetes mellitus type: type 1 Qualified Code(s): E10.59 - Type 1 diabetes mellitus with other circulatory complications Code(s): E11.9 - Type 2 diabetes mellitus without complications Status: Chronic Assessment and Plan: Continue sliding scale insulin and Lantus -hemoglobin A1c was 8.1 (5) Amputation above knee: Code(s): S78.119A - Complete traumatic amputation at level between unspecified hip and knee, initial encounter Status: Acute Assessment and Plan: 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 Severely increased left ventricular wall thickness, speckled appearance of the myocardium, grade 1 diastolic dysfunction, moderate aortic valve sclerosis, mild mitral valve regurg -cardiology has been consulted Additional Plan Discuss with family and updated them with his condition and plan of care Code status: Full code Critical care time spent:49 minutes This dictation may have been done utilizing a voice recognition system. Attempts have been made to correct errors. However, there may be uncorrected grammatical, spelling, and recognition errors present. Due to a high probability of clinically significant, life threatening deterioration, the patient required my highest level of preparedness to intervene emergently and I personally spent this critical care time directly and personally managing the patient. This critical care time included obtaining a history; examining the patient; pulse oximetry; ordering and review of studies; arranging urgent treatment with development of a management plan; evaluation of patient's response to treatment; frequent reassessment; and discussions with other providers. It was exclusive of separately billable procedures and treating other patients and teaching time. Please see Assessment and Plan section and the rest of the note for further information on patient assessment and treatment Mate Fourth Consult Note Consult date: 03/12/21 Time Seen: 08:25 Reason for consult: Unresponsiveness, acute respiratory failure requiring intubation HPI: Ish Corley is a 55
--- NOTE | 2021-03-12 09:28 | PM.IMPN ---
Progress Note: A&P Assessment and Plan (1) Acute respiratory failure with hypoxia: Code(s): J96.01 - Acute respiratory failure with hypoxia Status: Acute Assessment and Plan: Patient presents with dyspnea. No other concerning symptoms to suggest another etiology. BNP elevated but CXR was clear. Chest CTA showing no PE but mild ILD. Also noted to have generalized body wall fat stranding. Patient did have a LHC in Dec 2019 with LAD stent placed. Echo consistent with LV noncompaction. Probably recurrent flash pulmonary edema. PE less likely since negative yesterday. Cardiac? Will check Trop and EKG. Cardiology consult. HD today. (2) Dyspnea: Code(s): R06.00 - Dyspnea, unspecified Status: Acute Assessment and Plan: As above. (3) Elevated troponin: Code(s): R77.8 - Other specified abnormalities of plasma proteins Status: Acute Assessment and Plan: Troponin elevated on admission to 0.198. EKG showed borderline ST abnormalities in inferior and lateral leads. EKG was reviewed personally and appears improved from prior EKG from a few days ago. Chart review shows the patient's troponin has been elevated almost every single admission. Recent echo noted without focal wall motion abnormalities. (4) ESRD (end stage renal disease): Code(s): N18.6 - End stage renal disease Status: Chronic Assessment and Plan: Patient has hemodialysis Monday. He has been compliant with treatment this week. He stated that he is not drinking excessive fluids or increasing salt intake. Nephrology consulted for dialysis management. HD today. (5) Diabetes: Qualifiers: Diabetes mellitus complication detail: with other circulatory complications Diabetes mellitus complication status: with circulatory complication Diabetes mellitus type: type 1 Qualified Code(s): E10.59 - Type 1 diabetes mellitus with other circulatory complications Code(s): E11.9 - Type 2 diabetes mellitus without complications Status: Chronic Assessment and Plan: Recent A1c 8.1. The patient's blood glucose was reviewed on 03/12 Glucose brittle with sugar of 56-375 yesterday. Continue AccuCheks covering with sliding scale. Hypoglycemia protocol available as needed. Will continue Lantus and titrate as needed. (6) CHF (congestive heart failure): Code(s): I50.9 - Heart failure, unspecified Status: Acute Assessment and Plan: Patient has a history of CHF with depressed LV function in the past. Echocardiogram on 03/06/2021 showing EF of 55-60% with a severely thickened LV and a speckled appearance of the myocardium. He has grade 1 diastolic dysfunction and mild valvular disease. BNP >35K but CXR was clear on admission. Suspect BNP elevated related to his ESRD. Unclear if the thickened LV causing his recurrent flash pulmonary edema. As above. (7) Amputation above knee: Code(s): S78.119A - Complete traumatic amputation at level between unspecified hip and knee, initial encounter Status: Acute Assessment and Plan: Patient is status post left [id number] amputation. He still has madeleine in place but it appears he is removing them himself. Wound is healing well. He has an appointment to follow-up with the surgeon to have madeleine removed. He is falling but more likely related to his recent surgeries. Resume PT/OT when able (8) Chronic anemia: Code(s): D64.9 - Anemia, unspecified Status: Acute Assessment and Plan: Hemoglobin 8.8 on admission. Patient has chronic anemia. Iron studies consistent with anemia chronic disease. Anemia most likely related to his end-stage renal disease. Hgb today down to 8.0. No evidence of blood loss. Will follow. (9) Tobacco dependence: Code(s): F17.200 - Nicotine dependence, unspecified, uncomplicated Status: Acute Assessment
--- NOTE | 2021-03-12 10:05 | ECG_ITS ---
Measurements Intervals [place] Rate: 84 P: 67 [place]: 159 QRS: 68 QRSD: 80 T: 81 QT: 384 QTc: 455 Interpretive Statements SINUS RHYTHM DELAYED PRECORDIAL R/S TRANSITION BORDERLINE ST-T WAVE ABNORMALITY- LAT/HIGH LAT LEADS BASELINE WANDER- V6 BORDERLINE ECG Electronically Signed On 03-12-2021 15:25:17 CDT by Edmond Elias D.O.
--- NOTE | 2021-03-12 10:13 | PM.PNNEP ---
Progress Note: A&P Assessment and Plan (1) End stage renal disease: Code(s): N18.6 - End stage renal disease Status: Chronic Assessment and Plan: HD today and continue M/W/ schedule optimize electrolytes, volume status, and clearance (2) Acute respiratory failure: Code(s): J96.00 - Acute respiratory failure, unspecified whether with hypoxia or hypercapnia Status: Acute Assessment and Plan: currently intubated and on mechanical ventilation triggered by HTN versus flash pulmonary edema again versus anxiety versus something else or combination of all?? CT scan of chest and CXRs as noted wean as tolerated (3) Hypertension: Qualifiers: Hypertension type: unspecified Qualified Code(s): I10 - Essential (primary) hypertension Code(s): I10 - Essential (primary) hypertension Status: Chronic Assessment and Plan: somewhat elevated at this time resume home BP medications dialysis may also help as well follow trend of hemodyanamics (4) Anemia: Code(s): D64.9 - Anemia, unspecified Status: Chronic Assessment and Plan: due to ESRD and recent hospitalizations [facility] with HD follow trend of H/H (5) Peripheral vascular disease: Code(s): I73.9 - Peripheral vascular disease, unspecified Status: Acute Assessment and Plan: s/p recent left AKA and previous right BKA stump local wound care for left AKA (6) Diabetes: Qualifiers: Diabetes mellitus complication detail: with other circulatory complications Diabetes mellitus complication status: with circulatory complication Diabetes mellitus type: type 1 Qualified Code(s): E10.59 - Type 1 diabetes mellitus with other circulatory complications Code(s): E11.9 - Type 2 diabetes mellitus without complications Status: Chronic Assessment and Plan: follow accuchecks on Lantus and SSI Will continue to follow. Subjective Date/time seen: 03/12/21 10:13 Events noted earlier this AM -- systolic blood pressures elevated this morning in the 200s and patient became quite anxious; suddenly became unresponsive and developed respiratory distress leading to emergent intubation; reportedly no issues or complaints by patient overnight. Exam Narrative: Exam Narrative: General: WD/WN male intubated and on mechanical ventilation Heart: normal S1 and S2; no rub Lungs: coarse breath sounds Abdomen: soft, nontender, nondistended, positive bowel sounds Extremities: no cyanosis or clubbing; no edema Skin: warm and dry Objective Data Vital Signs Vital Signs: Vital Signs Temp Pulse Resp BP Pulse Ox 03/12/21 08:40 139 H 34 H 98 03/12/21 08:00 36.7 C 115 H 27 H 213/101 H 90 03/12/21 06:00 99 185/90 H 03/12/21 04:29 182/95 H 03/12/21 04:20 36.7 C 96 22 H 182/95 H 94 03/12/21 04:00 93 03/12/21 02:00 97 03/12/21 00:00 36.8 C 89 20 173/66 H 96 03/11/21 22:00 85 03/11/21 20:40 36.6 C 83 19 170/85 H 95 03/11/21 20:00 81 03/11/21 18:00 84 03/11/21 16:00 93 03/11/21 15:55 36.9 C 91 20 170/77 H 98 03/11/21 14:00 90 03/11/21 12:00 103 H 03/11/21 11:44 37.0 C 105 H 21 H 189/91 H 99 03/11/21 11:23 98 Intake/Output Intake/Output: Intake & Output 03/09/21 03/10/21 03/11/21 03/12/21 23:59 23:59 23:59 23:59 Intake Total 840 480 Output Total 800 0 Balance 40 480 Meds/Results Medications: Active Medications Generic Name Dose Route Start Last Admin Trade Name Freq PRN Reason Stop Dose Admin Acetaminophen 650 mg 03/11/21 11:28 Acetaminophen 325 Mg Tablet PO Q6H PRN Mild Pain (1-5) Or Fever Hydrocodone Bitart/Acetaminophen 1 tab 03/11/21 11:28 03/11/21 23:58 Hydrocodone/Acetaminophen (*Crx) 5-325 Mg Tablet PO 1 tab Q6H PRN Administration Pain Rated 6-10 Albuterol 1 puff 03/11/21 12:0
[2021-03-12 10:31] LABS: Alveolar/Arterial O2 Gradient 267.9 mmHg; Base Excess ABG -4.9 mEq/l (+/-2.0); Carboxyhemoglobin 0.3 % THb (0-2.0); Fractional Inspired Oxygen 80 %; HCO3 ABG 20.1 mEq/l (22.0-26.0); Methemoglobin ABG 0.3 %THb (0-1.5); Oxygen Content ABG 13.1 %vol (16.0-22.0); Oxygen Saturation ABG 99.6 % (95.0-100.0); Oxyhemoglobin 98.2 % THb (90.0-100.0); PCO2 ABG 36.7 mmHg (35.0-45.0); Reduced Hemoglobin 1.2 %THb (0-5.0); pH ABG 7.356 (7.350-7.450)
[2021-03-12] MEDS: LORazepam INJ (*CRX) 2 MG/ML VIAL (10:31)
[2021-03-12 10:32] LABS: Arterial Blood Gas PEEP 8 cmH2O; Arterial Blood Gas Vent Mode CMV; Arterial Blood Gas Ventilator rate 20 /MIN; Device VENTILATOR; Site Drawn RIGHT BRACHIAL
[2021-03-12 10:33] LABS: Arterial Blood Gas Tidal Volume 450 ml
[2021-03-12] MEDS: INSULIN GLARGINE (*BKC) 100 UNITS/ML 10 UNITS SUB-Q (10:44)
[2021-03-12] MEDS: INSULIN ASPART (*BKC) 100 UNITS/ML SUB-Q (10:44)
[2021-03-12 10:51] LABS: Glucose Point of Care 489 (65-105)
[2021-03-12] MEDS: CARBAMIDE PEROXIDE 6.5% OT SOLN 15 ML BTL 5 DROP EACH EAR ×2 (10:51→18:11)
[2021-03-12] MEDS: SILVERGEL (ELTA) 45 ML 1 APPLIC TOPICAL (10:51)
--- NOTE | 2021-03-12 11:06 | PCNFU ---
Nutrition Follow-Up Complete: Increased protein and calorie needs related to increased demands for wound healing as evidenced by unhealed stage III wound. Goal: Patient to consume 75% of meals/supplements or greater. Limited progress towards goal. Pt current nutrition is Nepro. Last recorded weight is 55.2 kg, down from 59.6 kg on admit. Bowel Motility: No BM noted. Labs Reviewed:BUN 86,Cr 6.4,Na 133,Hct 25.3,Hgb 8.0,K 5.6 Meds Noted:Propofol at 8.28 ml/jl=592 kcals,NovoLog,Lantus,Proventil,Debrox,Zoloft,Silvergel. Additional Notes: Patient seen today for nutrition follow up. Placed on mechanical ventilator today. Tube feeding ordered for Nepro at 20 ml/hr advancing by 10 ml/hr q 6 hours to goal rate of 40 ml/hr. 30 ml free water flush q 4 hours. Monitor: Reassess every Monday/Monday. Will follow daily in ICU rounds.
[2021-03-12 11:09] LABS: Troponin I 0.105 ng/mL (0.000-0.034)
--- NOTE | 2021-03-12 11:29 | PC.NURSE ---
0740 Patient called out asking for RN to come into room. 0745 Entered room patient stated he was having trouble breathing. Patient asked for oxygen. Pulse ox placed on patient's finger and SpO2 88%. Patient placed on 2L NC. Oxygen saturation increased to 90%. Patient drowsy/sleeping. This RN noted that patient's right leg tapping bed. Patient asked this RN to stay with him and not leave him. Inhaler given as ordered on JAN at 08. Patient noted to have wheezes bilaterally and tachypneic. Oxygen increased to 3L and phone call made to Dr. Tom. While on phone with Dr. Tom patient called out a second time. Upon entering room again patient unresponsive and convulsing. Dr. Cortes called into room. Ativan 2mg IVP given as ordered and patient intubated at 0830.
--- NOTE | 2021-03-12 11:37 | PC.NURSE ---
Spoke with patient's , Rosana, at 0845 and made her aware of patient needing rapidly intubated. All questions answered at this time.
[2021-03-12 12:46] LABS: Glucose Point of Care 407 (65-105)
[2021-03-12 13:07] LABS: Troponin I 0.101 ng/mL (0.000-0.034)
--- NOTE | 2021-03-12 13:21 | PCPTNOTE ---
Attempted to see pt for PT session at 1320, but pt developed respiratory distress and is currently intubated and receiving dialysis. Pt is not appropriate for therapy at this time.
--- NOTE | 2021-03-12 15:23 | PM.CNCAR ---
Assessment and Plan Assessment and plan (1) Hypertensive emergency: Code(s): I16.1 - Hypertensive emergency Status: Acute Assessment and Plan: At this time, appears to be primary contribute to acute flash pulmonary edema and respiratory failure requiring intubation. He has demonstrated this pattern repeatedly with hypertensive urgency/emergency and stabilizes after diuresis and BP control. Interestingly, EF now 55-60% worse previously severely depressed. Again, I have a concern given his LVH and speckled myocardium which previously I have discussed plans for more invasive cardiovascular imaging at [facility] with appropriate workup subsequent period unfortunately, he has not been compliant with follow-up and recommendations in this regard. Continue to wean ventilatory support as tolerated. Continue volume management with dialysis, diuresis. Overall, this patient is extremely complicated with multiple comorbidities and overall poor prognosis. This is based on the complexity of his underlying illness complicated by history of noncompliance. It is curious his EF has improved significantly yet he continues to present with acute decompensated heart failure and flash pulmonary edema. The fact that this occurred in the setting of hypertensive urgency would suggest a very non compliant LV. I previously recommended further outpatient workup with advanced cardiovascular imaging and possible referral to [facility] for infiltrative cardiomyopathy and/or HCM variant vs noncompaction. 63 spent in the care of this patient at bedside and chart review. (2) Acute respiratory failure: Code(s): J96.00 - Acute respiratory failure, unspecified whether with hypoxia or hypercapnia Status: Acute Assessment and Plan: Per Critical Care and primary service. Remains intubated, wean ventilatory support. Other considerations may involve VCD, tracheal stenosis, etc, however, uncertain at this time and he has other plausible explanations. Nonetheless, he has demonstrated this sort of pattern on multiple occasions button varied clinical setting such as hypertensive urgency, noncompliance with dialysis, hyperkalemia with reported Mike arrest, NSTEMI and STEMI due to late stent thrombosis, DKA. (3) Elevated troponin: Code(s): R77.8 - Other specified abnormalities of plasma proteins Status: Acute Assessment and Plan: Chronic troponin elevation flat curve not consistent with acute coronary syndrome with type 2 infarct secondary to hypertensive urgency, acute flash pulmonary edema and decompensated heart failure with preserved ejection fraction, end-stage renal disease on hemodialysis. (4) Noncompliance: Code(s): Z91.19 - Patient's noncompliance with other medical treatment and regimen Status: Acute Assessment and Plan: Has been a chronic issue unfortunately particularly with regards to control diabetes, fluid and sodium intake. Not to mention, failure to follow up as advised. (5) Coronary artery disease: Qualifiers: Coronary Disease-Associated Artery/Lesion type: [place] artery [place] vs. transplanted heart: [place] heart Associated angina: without angina Qualified Code(s): I25.10 - Atherosclerotic heart disease of [place] coronary artery without angina pectoris Code(s): I25.10 - Atherosclerotic heart disease of [place] coronary artery without angina pectoris Status: Acute Assessment and Plan: As above, continue DAPT with ASA and Ticagrelor. MANPREET 07/2020. Statin, Coreg. (6) ESRD (end stage renal disease) on dialysis: Code(s): N18.6 - End stage renal disease; Z99.2 - Dependence on renal dialysis Status: Chronic Assessment and Plan: Per Nephrology and primary service. (7) PAD (peripheral artery disease): Code(s): I73.9 - Peripheral vascular disease, unspecified Status: Acute Assessment and Plan: Severe PVD status post right BKA and more recently
[2021-03-12] MEDS: TICAGRELOR 90 MG TABLET PO ×2 (16:30→20:59)
[2021-03-12] MEDS: FAMOTIDINE 20 MG TABLET PO (16:30)
[2021-03-12] MEDS: ASPIRIN 81 MG ENTERIC TABLET PO (16:30)
[2021-03-12] MEDS: GABAPENTIN 300 MG CAPSULE PO (16:31)
[2021-03-12] MEDS: SERTRALINE HCL 50 MG TABLET 100 MG PO (16:31)
[2021-03-12 16:32] LABS: Troponin I 0.106 ng/mL (0.000-0.034)
[2021-03-12 16:35] LABS: Glucose Point of Care 113 (65-105)
[2021-03-12 18:16] LABS: Glucose Point of Care 84 (65-105)
[2021-03-12] MEDS: DEXTROSE 50% 25 GM/50 ML SYRINGE IV PUSH (20:48)
[2021-03-12 20:52] LABS: Glucose Point of Care 67 (65-105)
[2021-03-12] MEDS: HEPARIN SODIUM 5,000 UNITS/ML VIAL 5000 UNITS SUB-Q (20:59)
[2021-03-12] MEDS: rOPINIRole HCL 0.25 MG TABLET PO (20:59)
[2021-03-12] MEDS: ATORVASTATIN 40 MG TABLET 80 MG PO (20:59)
[2021-03-12 21:19] LABS: Glucose Point of Care 132 (65-105)
[2021-03-12 22:32] LABS: Glucose Point of Care 99 (65-105)
[2021-03-12] MEDS: PROPOFOL IV EMULSION 100 ML 9.94 MG IV CONT (23:06)
[2021-03-13] VITALS (36 sets, daily range): BP systolic 103–154; BP diastolic 52–87; PULSE 81–112; RESP 8–24; TEMP 0–37; O2SAT 93–100
[2021-03-13 00:26] LABS: Glucose Point of Care 123 (65-105)
[2021-03-13 04:38] LABS: Base Excess ABG 4.3 mEq/l (+/-2.0); Carboxyhemoglobin 0.3 % THb (0-2.0); Fractional Inspired Oxygen 30 %; Methemoglobin ABG 0.1 %THb (0-1.5); Oxygen Content ABG 11.1 %vol (16.0-22.0); Oxygen Saturation ABG 97.9 % (95.0-100.0); Oxyhemoglobin 96.3 % THb (90.0-100.0); PCO2 ABG 32.7 mmHg (35.0-45.0); PO2 ABG 92.5 mmHg (80.0-100.0); PO2 FiO2 Ratio Arterial Blood 3.08 %; Reduced Hemoglobin 3.3 %THb (0-5.0); Total Hemoglobin 8.1 g/dL (12.0-18.0)
[2021-03-13 04:39] LABS: Arterial Blood Gas PEEP 8 cmH2O; Arterial Blood Gas Tidal Volume 450 ml; Arterial Blood Gas Vent Mode CMV; Arterial Blood Gas Ventilator rate 20 /MIN; Device VENTILATOR; Modified Allen's Test Unable to perform; Site Drawn RIGHT RADIAL; pH ABG 7.535 (7.350-7.450)
[2021-03-13 04:41] LABS: Basophils Percent Auto 0.4 % (0.2-1.2); Eosinophils Absolute Auto 0.4 K/mm3 (0-0.3); Eosinophils Percent Auto 3.6 % (0-4.4); Hematocrit 24.1 % (42.0-52.0); Hemoglobin 7.8 g/dL (14.0-18.0); Immature Granulocyte Absolute 0.06 K/mm3 (0.00-0.031); Immature Granulocyte Percent A 0.6 % (0-0.5); Lymphocytes Absolute Auto 1.46 K/mm3 (0.9-3.2); Lymphocytes Percent Auto 15.1 % (18.3-44.2); Mean Corpuscular HGB Conc 32.4 g/dl (32-36); Mean Corpuscular Hemoglobin 30.4 pg (26-34); Mean Corpuscular Volume 93.8 fl (80-100); Mean Platelet Volume 9.4 fl (7.4-10.4); Monocytes Absolute Auto 0.6 K/mm3 (0.1-0.6); Monocytes Percent Auto 6.4 % (2.6-8.5); Neutrophils Absolute Auto 7.1 K/mm3 (1.3-6.7); Neutrophils Percent Auto 73.9 % (45.5-73.1); Platelet Count Result 373 k/mm3 (150-375); Red Blood Count 2.57 M/mm3 (4.6-6.20); Red Cell Distribution Width 18.5 % (11.5-14.5); White Blood Count 9.7 K/mm3 (4.5-10.0)
[2021-03-13] MEDS: PROPOFOL IV EMULSION 100 ML 14.9 MG IV CONT (04:55)
[2021-03-13 05:05] LABS: Alanine Aminotransferase 9 U/L (4-50); Albumin Level 2.8 g/dL (3.5-5.1); Alkaline Phosphatase 88 U/L (38-126); Anion Gap 6 mmol/L (8-16); Aspartate Amino Transferase 22 U/L (17-59); Bilirubin,Total 0.2 mg/dL (0.2-1.3); Blood Urea Nitrogen 42 mg/dL (9-20); Calcium 8.7 mg/dL (8.4-10.2); Carbon Dioxide 30 mmol/L (22-30); Chloride 99 mmol/L (98-107); Estimated CRCL calculation 15 ml/min; Estimated Glomerular Filt Rate 15; Glucose 154 mg/dL (75-110); Phosphorus 5.4 mg/dL (2.5-4.5); Potassium 4.3 mmol/L (3.4-5.0); Sodium 135 mmol/L (137-145)
[2021-03-13 05:47] LABS: Glucose Point of Care 165 (65-105)
--- NOTE | 2021-03-13 06:37 | PM.PNCARD ---
Progress Note: A&P Additional Plan 55-year-old man with: Repeated episodes of respiratory failure with clinical diagnosis of flash pulmonary edema. The etiology of this seems puzzling. Based on echocardiogram several days ago his left ventricular systolic function is actually fairly good and appears to have recovered nicely following PCI last year. He likely has extremely severe diastolic noncompliance and a very stiff ventricle resulting in this with very tenuous volume status. He may benefit from cardiac MRI in terms of imaging the myocardia for evidence of restrictive pathology the clinical picture of this in my opinion does not suggest that to be the principal problem. For now we will simply recommend continue to possibly dialyze him a little bit more aggressively and optimize his blood pressure. It is my impression that the extremely high blood pressure that has been recorded transiently is probably the result of catecholamine surge when he is in respiratory extremis. It is unlikely that he has extreme systolic hypertension causing the problem Chance Landis MD [facility] Subjective Date/time seen: Date of service: 03/13/21 06:37 Interval history: 55-year-old man with: Difficult challenging pattern of acute respiratory failure/distress with diagnosis of abrupt pulmonary edema were necessitating intubation and mechanical ventilation repeatedly. Patient has a history of coronary artery disease with previous anterior wall OH and stenting of the proximal LAD with also evidence of abrupt stent thrombosis which was dealt with interventionally last year. Patient also has end-stage renal disease and is on chronic hemodialysis. Remarkably left ventricular systolic dysfunction and by previous echoes has improved by follow-up exam several days ago. There does not appear to be any obvious cardiac reason for this abrupt pulmonary edema. Dr. Grimaldo of our practice has recommended advanced imaging of his LV because of unusual appearance of his myocardium. Presumably he is referring to cardiac MRI. Apparently the patient was not compliant with getting that done. He also has extensive peripheral vascular disease and is now a bilateral lower extremity amputee. To today he is intubated in room ICU sedated. Exam Const: Other: Sedated patient intubated in ICU room 7. HENMT: Mouth: Yes moist mucous membranes Eyes: Sclera: sclerae normal Neck: Neck: no JVD Other: Carotid pulses are intact Resp: Other: Breath sounds relatively clear some scant large airway rhonchi are noted Cardio: Rate: regular rate Rhythm: regular rhythm Other: S4 is noted no discernible murmur GI: GI Palp: Yes Soft to palpation Auscultation: normal bowel sounds Skin: General skin exam: normal color Neuro: Cognition (Neuro): normal cognition Extrem: General: normal to inspection Objective Data Vital Signs Vital Signs: Vital Signs - 24 hr 03/12/21 08:00 03/12/21 08:10 03/12/21 08:40 Temperature 36.7 C Pulse Rate 112 H 139 H Respiratory Rate 27 H 34 H Blood Pressure 213/101 H Pulse Oximetry 88 L 90 100 03/12/21 09:00 03/12/21 10:00 03/12/21 11:00 Temperature Pulse Rate 94 87 85 Respiratory Rate 20 22 H Blood Pressure 162/83 H 129/67 Pulse Oximetry 100 100 100 03/12/21 11:39 03/12/21 12:00 03/12/21 12:02 Temperature 36.4 C Pulse Rate 88 88 89 Respiratory Rate 21 H 21 H 21 H Blood Pressure 95/60 L Pulse Oximetry 100 03/12/21 12:46 03/12/21 13:00 03/12/21 13:15 Temperature Pulse Rate 84 79 85 Respiratory Rate 20 Blood Pressure 112/63 117/70 Pulse Oximetry 03/12/21 13:30 03/12/21 13:45 03/12/21 13:53 Temperature 37.0 C Pulse Rate 92 97 82 Respiratory Rate 20 Blood Pressure 91/62 L 88/61 L 118/65 Pulse Oximetry 100 03/12/21 14:00 03/12/21 14:15 03/12/21 14:30 Temperature Pulse Rate 96 96 71 Respiratory Rate 20 Blood Pressure 97/55 L 91/60 L 94/61 L Pulse Oximetry 100 04
--- NOTE | 2021-03-13 09:20 | PM.IMPN ---
Progress Note: A&P Assessment and Plan (1) Acute respiratory failure with hypoxia: Code(s): J96.01 - Acute respiratory failure with hypoxia Status: Acute Assessment and Plan: Patient presents with dyspnea. No other concerning symptoms to suggest another etiology. BNP elevated but CXR was clear. Chest CTA showing no PE but mild ILD. Also noted to have generalized body wall fat stranding. Patient did have a LHC in Dec 2019 with LAD stent placed. Echo consistent with LV noncompaction. Sudden respiratory failure probably recurrent flash pulmonary edema although only minimal pulm edema. Repeat Trop negative. Repeat EKG (reviewed yesterday) showing T wave changes in the high lateal leads. Cardiology input appreciated. Consider partially anxiety driven as well. Add Buspar. (2) Dyspnea: Code(s): R06.00 - Dyspnea, unspecified Status: Acute Assessment and Plan: As above. (3) Elevated troponin: Code(s): R77.8 - Other specified abnormalities of plasma proteins Status: Acute Assessment and Plan: Troponin elevated on admission to 0.198. EKG showed borderline ST abnormalities in inferior and lateral leads. EKG was reviewed personally and appears improved from prior EKG from a few days ago. Chart review shows the patient's troponin has been elevated almost every single admission. Recent echo noted without focal wall motion abnormalities. Defer to cardiology for decision about possible further evaluation of cardiac source of his flash pulmonary edema. (4) ESRD (end stage renal disease): Code(s): N18.6 - End stage renal disease Status: Chronic Assessment and Plan: Patient has hemodialysis Monday. He has been compliant with treatment this week. He stated that he is not drinking excessive fluids or increasing salt intake. Nephrology consulted for dialysis management. Tolerated HD yesterday. Potassium stable and no acidosis. Continue to use HD for fluid management. (5) Diabetes: Qualifiers: Diabetes mellitus complication detail: with other circulatory complications Diabetes mellitus complication status: with circulatory complication Diabetes mellitus type: type 1 Qualified Code(s): E10.59 - Type 1 diabetes mellitus with other circulatory complications Code(s): E11.9 - Type 2 diabetes mellitus without complications Status: Chronic Assessment and Plan: Recent A1c 8.1. The patient's blood glucose was reviewed on 03/13 Lantus given yesterday clary since glucose 489 and TF to be started. Lantus held last night due to normal glucose values now. Brittle glucose control overall. Continue AccuCheks covering with sliding scale. Hypoglycemia protocol available as needed. Will continue Lantus and titrate down. (6) CHF (congestive heart failure): Code(s): I50.9 - Heart failure, unspecified Status: Acute Assessment and Plan: Patient has a history of CHF with depressed LV function in the past. Echocardiogram on 03/06/2021 showing EF of 55-60% with a severely thickened LV and a speckled appearance of the myocardium. He has grade 1 diastolic dysfunction and mild valvular disease. BNP >35K but CXR was clear on admission. Suspect BNP elevated related to his ESRD. Unclear if the thickened LV causing his recurrent flash pulmonary edema. As above. (7) Amputation above knee: Code(s): S78.119A - Complete traumatic amputation at level between unspecified hip and knee, initial encounter Status: Acute Assessment and Plan: Patient is status post left [id number] amputation. He still has madeleine in place but it appears he is removing them himself. Wound is healing well. He has an appointment to follow-up with the surgeon to have madeleine removed. He is falling but more likely related to his recent surgeries. Resume PT/OT when able (8) Chronic anemia: Code(s):
[2021-03-13 09:43] LABS: Base Excess ABG 1.7 mEq/l (+/-2.0); Fractional Inspired Oxygen 30 %; HCO3 ABG 25.6 mEq/l (22.0-26.0); Oxygen Content ABG 12.9 %vol (16.0-22.0); Oxygen Saturation ABG 98.2 % (95.0-100.0); Oxyhemoglobin 96.9 % THb (90.0-100.0); PCO2 ABG 37.3 mmHg (35.0-45.0); PO2 ABG 110.1 mmHg (80.0-100.0); PO2 FiO2 Ratio Arterial Blood 3.67 %; Total Hemoglobin 9.3 g/dL (12.0-18.0); pH ABG 7.455 (7.350-7.450)
[2021-03-13 09:45] LABS: Modified Allen's Test Pass; Site Drawn RIGHT RADIAL
[2021-03-13 09:46] LABS: Device NON-INVASIVE VENT
[2021-03-13 09:47] LABS: Non-Invasive Expiratory Pressure 5 CMH2O; Non-Invasive Inspiratory Pressure 8 CMH2O; Non-Invasive Vent Rate 0 /MIN
--- NOTE | 2021-03-13 11:08 | P.PNNP_ITS ---
Progress Note: A&P Assessment and Plan (1) End stage renal disease: Code(s): N18.6 - End stage renal disease Status: Chronic Assessment and Plan: * HD yesterday and continue // schedule * optimize electrolytes, volume status, and clearance * given limited fluid removal, will plan for DUF today (2) Acute respiratory failure: Code(s): J96.00 - Acute respiratory failure, unspecified whether with hypoxia or hypercapnia Status: Acute Assessment and Plan: * resolved -- extubated * triggered by HTN versus flash pulmonary edema again versus anxiety versus something else or combination of all?? * Cardiology notes reviewed -- possible restrictive cardiac disease playing a role? * CT scan of chest and CXRs as noted * fluid removal with HD to maintain euvolemia (3) Hypertension: Qualifiers: Hypertension type: unspecified Qualified Code(s): I10 - Essential (primary) hypertension Code(s): I10 - Essential (primary) hypertension Status: Chronic Assessment and Plan: * reasonable control at this time * follow trend of hemodyanamics (4) Anemia: Code(s): D64.9 - Anemia, unspecified Status: Chronic Assessment and Plan: * due to ESRD and recent hospitalizations * Epogen with HD * follow trend of H/H (5) Peripheral vascular disease: Code(s): I73.9 - Peripheral vascular disease, unspecified Status: Acute Assessment and Plan: * s/p recent left AKA and previous right BKA stump * local wound care for left AKA (6) Diabetes: Qualifiers: Diabetes mellitus complication detail: with other circulatory c omplications Diabetes mellitus complication status: with circulatory compl ication Diabetes mellitus type: type 1 Qualified Code(s): E10.59 - Type 1 diabetes mellitus with other circulatory complications Code(s): E11.9 - Type 2 diabetes mellitus without complications Status: Chronic Assessment and Plan: * follow accuchecks * on Lantus and SSI Discussed case with Dr. Cortes. Will continue to follow. Subjective Date/time seen: 03/13/21 11:08 Dialysis yesterday but fluid removal limited due to fluctuating hemodynamics; extubated at the time of my visit; awake and alert; somewhat frustrated by his recurrent issues with respiratory failure requiring intubation in general; no apparent distress voiced. Exam Narrative: Exam Narrative: General: WD/WN male in NAD Heart: normal S1 and S2; no rub Lungs: coarse breath sounds Abdomen: soft, nontender, nondistended, positive bowel sounds Extremities: no cyanosis or clubbing; no edema Skin: warm and intact Objective Data Vital Signs Vital Signs: Vital Signs Temp Pulse Resp BP Pulse Ox 03/13/21 10:00 104 H 20 148/62 H 93 03/13/21 09:50 95 03/13/21 08:19 90 8 L 03/13/21 08:14 91 100 03/13/21 08:00 88 8 L 133/70 99 03/13/21 06:00 81 20 112/62 100 03/13/21 04:55 82 20 03/13/21 04:42 84 100 03/13/21 04:00 36.4 C 83 20 119/76 100 03/13/21 02:16 83 100 03/13/21 02:00 84 20 111/58 L 100 03/13/21 00:00 36.3 C L 90 19 117/62 100 03/12/21 23:06 89 20 03/12/21 22:00 84 20 114/62 100 03/12/21 20:10 85 100 03/12/21 20:00 36.4 C 84 20 124
--- NOTE | 2021-03-13 11:08 | PM.PNNEP ---
Progress Note: A&P Assessment and Plan (1) End stage renal disease: Code(s): N18.6 - End stage renal disease Status: Chronic Assessment and Plan: HD yesterday and continue M/W/ schedule optimize electrolytes, volume status, and clearance given limited fluid removal, will plan for DUF today (2) Acute respiratory failure: Code(s): J96.00 - Acute respiratory failure, unspecified whether with hypoxia or hypercapnia Status: Acute Assessment and Plan: resolved -- extubated triggered by HTN versus flash pulmonary edema again versus anxiety versus something else or combination of all?? Cardiology notes reviewed -- possible restrictive cardiac disease playing a role? CT scan of chest and CXRs as noted fluid removal with HD to maintain euvolemia (3) Hypertension: Qualifiers: Hypertension type: unspecified Qualified Code(s): I10 - Essential (primary) hypertension Code(s): I10 - Essential (primary) hypertension Status: Chronic Assessment and Plan: reasonable control at this time follow trend of hemodyanamics (4) Anemia: Code(s): D64.9 - Anemia, unspecified Status: Chronic Assessment and Plan: due to ESRD and recent hospitalizations Epogen with HD follow trend of H/H (5) Peripheral vascular disease: Code(s): I73.9 - Peripheral vascular disease, unspecified Status: Acute Assessment and Plan: s/p recent left AKA and previous right BKA stump local wound care for left AKA (6) Diabetes: Qualifiers: Diabetes mellitus complication detail: with other circulatory complications Diabetes mellitus complication status: with circulatory complication Diabetes mellitus type: type 1 Qualified Code(s): E10.59 - Type 1 diabetes mellitus with other circulatory complications Code(s): E11.9 - Type 2 diabetes mellitus without complications Status: Chronic Assessment and Plan: follow accuchecks on Lantus and SSI Discussed case with Dr. Cortes. Will continue to follow. Subjective Date/time seen: 03/13/21 11:08 Dialysis yesterday but fluid removal limited due to fluctuating hemodynamics; extubated at the time of my visit; awake and alert; somewhat frustrated by his recurrent issues with respiratory failure requiring intubation in general; no apparent distress voiced. Exam Narrative: Exam Narrative: General: WD/WN male in NAD Heart: normal S1 and S2; no rub Lungs: coarse breath sounds Abdomen: soft, nontender, nondistended, positive bowel sounds Extremities: no cyanosis or clubbing; no edema Skin: warm and intact Objective Data Vital Signs Vital Signs: Vital Signs Temp Pulse Resp BP Pulse Ox 03/13/21 10:00 104 H 20 148/62 H 93 03/13/21 09:50 95 03/13/21 08:19 90 8 L 03/13/21 08:14 91 100 03/13/21 08:00 88 8 L 133/70 99 03/13/21 06:00 81 20 112/62 100 03/13/21 04:55 82 20 03/13/21 04:42 84 100 03/13/21 04:00 36.4 C 83 20 119/76 100 03/13/21 02:16 83 100 03/13/21 02:00 84 20 111/58 L 100 03/13/21 00:00 36.3 C L 90 19 117/62 100 03/12/21 23:06 89 20 03/12/21 22:00 84 20 114/62 100 03/12/21 20:10 85 100 03/12/21 20:00 36.4 C 84 20 124/65 100 03/12/21 18:00 82 20 111/63 100 03/12/21 17:22 86 100 03/12/21 17:15 87 20 03/12/21 17:00 37.0 C 97 20 130/74 03/12/21 16:20 89 20 03/12/21 16:15 92 23 H 03/12/21 16:00 36.6 C 97 20 128/69 100 03/12/21 15:45 96 132/65 03/12/21 15:32 100 133/75 03/12/21 15:15 100 124/73 03/12/21 15:01 101 H 23 H 03/12/21 15:00 129/71 03/12/21 14:50 89 98 03/12/21 14:45 76 99/63 L 03/12/21 14:30 71 94/61 L 03/12/21 14:15 96 91/60 L 03/12/21 14:00 96 20 97/55 L 100 03/12/21 13:53 37.0 C 82 20 118/65 100 03/12/21 13:45 97 88/61 L 0
[2021-03-13] MEDS: TICAGRELOR 90 MG TABLET PO ×2 (11:14→19:52)
[2021-03-13] MEDS: SILVERGEL (ELTA) 45 ML 1 APPLIC TOPICAL (11:14)
[2021-03-13] MEDS: FAMOTIDINE 20 MG TABLET PO (11:15)
[2021-03-13] MEDS: SERTRALINE HCL 50 MG TABLET 100 MG PO (11:15)
[2021-03-13] MEDS: HEPARIN SODIUM 5,000 UNITS/ML VIAL 5000 UNITS SUB-Q ×2 (11:15→19:52)
[2021-03-13] MEDS: GABAPENTIN 300 MG CAPSULE PO (11:15)
[2021-03-13] MEDS: carvediloL 25 MG TABLET 50 MG PO (11:16)
[2021-03-13] MEDS: busPIRone HCL 5 MG TABLET PO ×2 (11:16→19:52)
[2021-03-13] MEDS: amLODIPine BESYLATE 5 MG TABLET PO (11:17)
[2021-03-13] MEDS: ASPIRIN 81 MG ENTERIC TABLET PO (11:17)
[2021-03-13 11:39] LABS: Glucose Point of Care 409 (65-105)
[2021-03-13] MEDS: INSULIN ASPART (*BKC) 100 UNITS/ML SUB-Q (11:44)
[2021-03-13] MEDS: INSULIN GLARGINE (*BKC) 100 UNITS/ML 10 UNITS SUB-Q ×3 (11:57→19:59)
[2021-03-13] MEDS: SEVELAMER CARBONATE 800 MG TABLET PO ×2 (12:14→17:16)
[2021-03-13] MEDS: HYDROcodone/acetaminophen (*CRX) 5-325 MG TABLET 1 TAB PO ×2 (12:14→18:46)
--- NOTE | 2021-03-13 12:23 | WPDINTPN ---
Progress Note: A&P Assessment and Plan (1) Acute respiratory failure with hypoxia: Code(s): J96.01 - Acute respiratory failure with hypoxia Status: Acute Assessment and Plan: Patient initially presented with dyspnea, chest x-ray was clear, CTA did not show any pulmonary embolism. BNP has been elevated chronically and on this admission her BNP was > 49973. -on 03/12/2021 morning went into respiratory distress, was unresponsive and emergently intubated -currently on mechanical ventilation, CMV mode, 30% FiO2 and peep of 5 -chest x-ray and ABGs reviewed -place patient on SBT, he did well, post SBT ABGs look good, patient was extubated successfully - (2) Hypertensive urgency: Code(s): I16.0 - Hypertensive urgency Status: Acute Assessment and Plan: Will restart his antihypertensive (3) ESRD (end stage renal disease) on dialysis: Code(s): N18.6 - End stage renal disease; Z99.2 - Dependence on renal dialysis Status: Chronic Assessment and Plan: Discussed with Nephrology today, it was dialyzed on 03/12/2021 without removal of fluids as his blood pressures did not tolerated. -have requested Nephrology to dialyze him with removal of fluid to which he is agreeable (4) Diabetes: Qualifiers: Diabetes mellitus complication detail: with other circulatory complications Diabetes mellitus complication status: with circulatory complication Diabetes mellitus type: type 1 Qualified Code(s): E10.59 - Type 1 diabetes mellitus with other circulatory complications Code(s): E11.9 - Type 2 diabetes mellitus without complications Status: Chronic Assessment and Plan: Continue sliding scale insulin and Lantus -hemoglobin A1c was 8.1 (5) Amputation above knee: Code(s): S78.119A - Complete traumatic amputation at level between unspecified hip and knee, initial encounter Status: Acute Assessment and Plan: 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 Severely increased left ventricular wall thickness, speckled appearance of the myocardium, grade 1 diastolic dysfunction, moderate aortic valve sclerosis, mild mitral valve regurg -appreciate cardiology evaluation, patient probably has very noncompliant LV, recommended further outpatient workup with advance cardiovascular imaging for infiltrative cardiomyopathy Additional Plan Discussed with patient updated with his condition and plan of care. Code status: Full code Critical care time spent: 32 minutes This dictation may have been done utilizing a voice recognition system. Attempts have been made to correct errors. However, there may be uncorrected grammatical, spelling, and recognition errors present. Due to a high probability of clinically significant, life threatening deterioration, the patient required my highest level of preparedness to intervene emergently and I personally spent this critical care time directly and personally managing the patient. This critical care time included obtaining a history; examining the patient; pulse oximetry; ordering and review of studies; arranging urgent treatment with development of a management plan; evaluation of patient's response to treatment; frequent reassessment; and discussions with other providers. It was exclusive of separately billable procedures and treating other patients and teaching time. Please see Assessment and Plan section and the rest of the note for further information on patient assessment and treatment
[2021-03-13] MEDS: ALBUMIN HUMAN 25% 12.5 GM/50ML 50 ML IVPB (14:30)
--- NOTE | 2021-03-13 16:17 | PCOTNOTE ---
Pt unable to be seen today for OT session. Will continue per POC duration/frequency tomorrow.
[2021-03-13 17:04] LABS: Glucose Point of Care 431 (65-105)
[2021-03-13] MEDS: FUROSEMIDE 80 MG TABLET PO (17:16)
[2021-03-13] MEDS: INSULIN ASPART (*BKC) 100 UNITS/ML 10 UNITS SUB-Q (17:16)
[2021-03-13] MEDS: CARBAMIDE PEROXIDE 6.5% OT SOLN 15 ML BTL 5 DROP EACH EAR (17:16)
[2021-03-13] MEDS: ATORVASTATIN 40 MG TABLET 80 MG PO (19:52)
[2021-03-13] MEDS: rOPINIRole HCL 0.25 MG TABLET PO (19:52)
[2021-03-13 20:00] LABS: Glucose Point of Care 338 (65-105)
[2021-03-13 23:51] LABS: Glucose Point of Care 194 (65-105)
[2021-03-14] VITALS (11 sets, daily range): BP systolic 129–158; BP diastolic 54–72; PULSE 76–86; RESP 14–20; TEMP 36.4–36.7; O2SAT 96–100
[2021-03-14] MEDS: HYDROcodone/acetaminophen (*CRX) 5-325 MG TABLET 1 TAB PO ×2 (01:12→08:30)
[2021-03-14 04:39] LABS: Basophils Percent Auto 0.4 % (0.2-1.2); Eosinophils Absolute Auto 0.5 K/mm3 (0-0.3); Eosinophils Percent Auto 4.9 % (0-4.4); Hematocrit 24.4 % (42.0-52.0); Hemoglobin 7.7 g/dL (14.0-18.0); Immature Granulocyte Absolute 0.05 K/mm3 (0.00-0.031); Immature Granulocyte Percent A 0.5 % (0-0.5); Lymphocytes Absolute Auto 1.54 K/mm3 (0.9-3.2); Lymphocytes Percent Auto 16.3 % (18.3-44.2); Mean Corpuscular HGB Conc 31.6 g/dl (32-36); Mean Corpuscular Hemoglobin 30.4 pg (26-34); Mean Corpuscular Volume 96.4 fl (80-100); Mean Platelet Volume 9.4 fl (7.4-10.4); Monocytes Absolute Auto 0.8 K/mm3 (0.1-0.6); Monocytes Percent Auto 8.9 % (2.6-8.5); Neutrophils Absolute Auto 6.5 K/mm3 (1.3-6.7); Platelet Count Result 389 k/mm3 (150-375); Red Blood Count 2.53 M/mm3 (4.6-6.20); Red Cell Distribution Width 18.1 % (11.5-14.5); White Blood Count 9.5 K/mm3 (4.5-10.0)
[2021-03-14 05:22] LABS: Alanine Aminotransferase 7 U/L (4-50); Albumin Level 2.9 g/dL (3.5-5.1); Alkaline Phosphatase 78 U/L (38-126); Anion Gap 8 mmol/L (8-16); Aspartate Amino Transferase 20 U/L (17-59); Bilirubin,Total 0.3 mg/dL (0.2-1.3); Blood Urea Nitrogen 67 mg/dL (9-20); Calcium 8.5 mg/dL (8.4-10.2); Carbon Dioxide 30 mmol/L (22-30); Chloride 100 mmol/L (98-107); Estimated CRCL calculation 10 ml/min; Estimated Glomerular Filt Rate 10; Glucose 58 mg/dL (75-110); Phosphorus 7.9 mg/dL (2.5-4.5); Potassium 4.5 mmol/L (3.4-5.0); Sodium 138 mmol/L (137-145)
[2021-03-14] MEDS: DEXTROSE 50% 25 GM/50 ML SYRINGE IV PUSH (06:21)
[2021-03-14 06:38] LABS: Glucose Point of Care 112 (65-105)
[2021-03-14 06:38] LABS: Glucose Point of Care 28 (65-105)
[2021-03-14] MEDS: SEVELAMER CARBONATE 800 MG TABLET PO ×2 (08:21→12:47)
[2021-03-14] MEDS: VITAMIN B CMPLX/VIT C/FOLIC AC 1 CAPSULE 1 CAP PO (08:21)
[2021-03-14] MEDS: SILVERGEL (ELTA) 45 ML 1 APPLIC TOPICAL (08:21)
[2021-03-14] MEDS: TICAGRELOR 90 MG TABLET PO (08:21)
[2021-03-14] MEDS: VITAMIN B COMPLEX CAPSULE 1 CAP PO (08:21)
[2021-03-14] MEDS: SERTRALINE HCL 50 MG TABLET 100 MG PO (08:22)
[2021-03-14] MEDS: HEPARIN SODIUM 5,000 UNITS/ML VIAL 5000 UNITS SUB-Q (08:22)
[2021-03-14] MEDS: FUROSEMIDE 80 MG TABLET PO (08:23)
[2021-03-14] MEDS: GABAPENTIN 300 MG CAPSULE PO (08:23)
[2021-03-14] MEDS: carvediloL 25 MG TABLET 50 MG PO (08:24)
[2021-03-14] MEDS: busPIRone HCL 5 MG TABLET PO (08:24)
[2021-03-14] MEDS: FAMOTIDINE 20 MG TABLET PO (08:24)
[2021-03-14] MEDS: amLODIPine BESYLATE 5 MG TABLET PO (08:25)
[2021-03-14] MEDS: ASPIRIN 81 MG ENTERIC TABLET PO (08:25)
[2021-03-14] MEDS: INSULIN GLARGINE (*BKC) 100 UNITS/ML 10 UNITS SUB-Q (08:31)
--- NOTE | 2021-03-14 11:07 | WPDINTPN ---
Progress Note: A&P Assessment and Plan (1) Acute respiratory failure with hypoxia: Code(s): J96.01 - Acute respiratory failure with hypoxia Status: Acute Assessment and Plan: Patient initially presented with dyspnea, chest x-ray was clear, CTA did not show any pulmonary embolism. BNP has been elevated chronically and on this admission her BNP was > 92502. -on 03/12/2021 morning went into respiratory distress, was unresponsive and emergently intubated -successfully extubated on 03/13/2021 -chest x-ray minimal infiltrate or atelectasis at the lung bases, primarily on the left - - (2) Hypertensive urgency: Code(s): I16.0 - Hypertensive urgency Status: Acute Assessment and Plan: Blood pressures have been low normal limits on home medications (3) ESRD (end stage renal disease) on dialysis: Code(s): N18.6 - End stage renal disease; Z99.2 - Dependence on renal dialysis Status: Chronic Assessment and Plan: Discussed with Nephrology today, it was dialyzed on 03/12/2021 without removal of fluids as his blood pressures did not tolerated. -dialysis done on 03/13/2020 with removal of 2000 mL. (4) Diabetes: Qualifiers: Diabetes mellitus complication detail: with other circulatory complications Diabetes mellitus complication status: with circulatory complication Diabetes mellitus type: type 1 Qualified Code(s): E10.59 - Type 1 diabetes mellitus with other circulatory complications Code(s): E11.9 - Type 2 diabetes mellitus without complications Status: Chronic Assessment and Plan: Continue sliding scale insulin and Lantus -hemoglobin A1c was 8.1 (5) Amputation above knee: Code(s): S78.119A - Complete traumatic amputation at level between unspecified hip and knee, initial encounter Status: Acute Assessment and Plan: 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 Severely increased left ventricular wall thickness, speckled appearance of the myocardium, grade 1 diastolic dysfunction, moderate aortic valve sclerosis, mild mitral valve regurg -appreciate cardiology evaluation, patient probably has very noncompliant LV, recommended further outpatient workup with advance cardiovascular imaging for infiltrative cardiomyopathy Additional Plan Discussed with patient updated with his condition and plan of care. Code status: Full code Critical care time spent: 32 minutes D/w Dr. Tom, patient likely be discharged home by hospitalist This dictation may have been done utilizing a voice recognition system. Attempts have been made to correct errors. However, there may be uncorrected grammatical, spelling, and recognition errors present. Due to a high probability of clinically significant, life threatening deterioration, the patient required my highest level of preparedness to intervene emergently and I personally spent this critical care time directly and personally managing the patient. This critical care time included obtaining a history; examining the patient; pulse oximetry; ordering and review of studies; arranging urgent treatment with development of a management plan; evaluation of patient's response to treatment; frequent reassessment; and discussions with other providers. It was exclusive of separately billable procedures and treating other patients and teaching time. Please see Assessment and Plan section and the rest of the note for further information on patient assessment and treatment Subjecti
--- NOTE | 2021-03-14 11:20 | PM.DS ---
DS: Admitting Diagnosis Admitting Diagnosis Admitting Diagnosis: Shortness of breath DS: Discharge Diagnosis Discharge Diagnosis (1) Acute respiratory failure with hypoxia: Code(s): J96.01 - Acute respiratory failure with hypoxia Status: Acute Assessment and Plan: Patient presents with dyspnea. No other concerning symptoms to suggest another etiology. BNP elevated but CXR was clear. Chest CTA showing no PE but mild ILD. Also noted to have generalized body wall fat stranding. Patient did have a C in Dec 2019 with LAD stent placed. Echo consistent with LV noncompaction. After admission, patient developed sudden onset respiratory failure on the morning of 03/12. SBP 170-180 overnight but was 213/101 when he was in extremis on 03/12. Probably recurrent flash pulmonary edema although only minimal pulm edema by CXR. Repeat Trop mildly elevated but lower than on admission. Repeat EKG showing T wave changes in the high lateral leads but overall looks similar to admission EKG. Cardiology followed. Considered partially anxiety driven as well and Buspar added. (2) Dyspnea: Code(s): R06.00 - Dyspnea, unspecified Status: Acute Assessment and Plan: As above. (3) Elevated troponin: Code(s): R77.8 - Other specified abnormalities of plasma proteins Status: Acute Assessment and Plan: Troponin elevated on admission to 0.198. Chart review shows the patient's troponin has been elevated almost every single admission. EKG from admission appears improved from prior EKGs; EKG when patient in extremis about the same. Recent echo noted no focal wall motion abnormalities. Cardiology did not feel an ischemic evaluation warranted at this time. Discussed with cardiology who is arranging for further cardiac testing (cardiac MRI) at a tertiary care center. (4) ESRD (end stage renal disease): Code(s): N18.6 - End stage renal disease Status: Chronic Assessment and Plan: Patient has hemodialysis Monday. He has been compliant with treatment prior to admission. He stated that he is not drinking excessive fluids or increasing salt intake. Nephrology consulted for dialysis management. Tolerated HD on 03/12 and 03/13. Potassium stable and no acidosis. (5) Diabetes: Qualifiers: Diabetes mellitus complication detail: with other circulatory complications Diabetes mellitus complication status: with circulatory complication Diabetes mellitus type: type 1 Qualified Code(s): E10.59 - Type 1 diabetes mellitus with other circulatory complications Code(s): E11.9 - Type 2 diabetes mellitus without complications Status: Chronic Assessment and Plan: Recent A1c 8.1. The patient's blood glucose was monitored closely with AccuChecks. He has brittle glucose control overall with low glucose at home. Hypoglycemia protocol was available as needed. (6) CHF (congestive heart failure): Code(s): I50.9 - Heart failure, unspecified Status: Acute Assessment and Plan: Patient has a history of CHF with depressed LV function in the past. Echocardiogram on 03/06/2021 showing EF of 55-60% with a severely thickened LV and a speckled appearance of the myocardium. He has grade 1 diastolic dysfunction and mild valvular disease. BNP >35K but CXR was clear on admission. Suspect BNP elevated related to his ESRD. Unclear if the thickened LV causing his recurrent flash pulmonary edema. Plan for further evaluation at tertiary care center. (7) Amputation above knee: Code(s): S78.119A - Complete traumatic amputation at level between unspecified hip and knee, initial encounter Status: Acute Assessment and Plan: Patient is status post left [id number] amputation. He still has madeleine in place but it appears he is removing them himself (he was advised not to). Wound is healing well. He has an appointment to follow
--- NOTE | 2021-03-14 12:12 | PM.PNCARD ---
Progress Note: A&P Additional Plan 55-year-old man with: Ischemic heart disease previous anterior infarction with emergency PCI of the proximal LAD on more than 1 occasion. Recent echo suggests that LV systolic function is improved significantly. Despite this he has multiple admissions to the hospital with acute respiratory failure necessitating intubation etiology of this is unclear. We will allow and be discharged today and arrange for follow-up in the office at a short interval with Dr. guevara and advanced imaging of his heart will be arranged as mentioned in his note as well. Chance Landis MD [facility] Subjective Date/time seen: 03/14/21 12:12 Interval history: Follow-up visit in this 55-year-old man with: History of coronary artery disease with previous anterior infarction 2 previous proximal LAD interventions. Previously had very poor left ventricular systolic function which looks much better on recent echo several days ago. Patient has had multiple admissions with acute respiratory failure resulting in the need for intubation and mechanical ventilation. Etiology of this is not entirely clear. He does have end-stage renal disease dependent on hemodialysis also significant diastolic dysfunction by echo. Once again he is now extubated and feeling well this morning plans are for discharge today. The patient has unfortunately not been very compliant with follow-up in our office regarding his cardiovascular disease and my partner Dr. Grimaldo has recommended cardiac MRI for more advanced imaging of the myocardium since some of his echocardiograms describe a speckled appearance of the myocardium which I suppose raises the concern regarding a restrictive infiltrative process. The patient understands this well and states he will be compliant with follow-up in the office in scheduling any interventions or imaging studies that are recommended. Exam Const: General: comfortable and no acute distress HENMT: Mouth: Yes moist mucous membranes Eyes: Sclera: sclerae normal Pupils: Equal, round and reactive pupils present Neck: Neck: supple and no JVD Resp: Effort & Inspection: normal respiratory effort Auscultation: clear to auscultation bilaterally Cardio: Rate: regular rate Rhythm: regular rhythm Other: No murmur S4 is evident GI: GI Palp: Yes Soft to palpation Auscultation: normal bowel sounds Skin: General skin exam: normal color Neuro: Cognition (Neuro): normal cognition Extrem: Other: Bilateral lower extremity amputee Objective Data Vital Signs Vital Signs: Vital Signs - 24 hr 03/13/21 13:48 03/13/21 13:58 03/13/21 14:00 Temperature 36.6 C Pulse Rate 98 101 H 93 Respiratory Rate 18 24 H Blood Pressure 103/61 123/58 L 116/56 L Pulse Oximetry 97 96 03/13/21 14:01 03/13/21 14:15 03/13/21 14:30 Temperature Pulse Rate 95 93 93 Respiratory Rate Blood Pressure 117/59 L 117/54 L Pulse Oximetry 03/13/21 14:45 03/13/21 15:00 03/13/21 15:02 Temperature Pulse Rate 93 92 Respiratory Rate Blood Pressure 129/62 138/64 Pulse Oximetry 94 03/13/21 15:15 03/13/21 15:30 03/13/21 15:45 Temperature Pulse Rate 88 98 86 Respiratory Rate Blood Pressure 126/52 L 119/55 L 123/64 Pulse Oximetry 03/13/21 16:00 03/13/21 16:15 03/13/21 16:30 Temperature 36.6 C Pulse Rate 90 88 89 Respiratory Rate 16 Blood Pressure 131/65 131/65 143/73 H Pulse Oximetry 97 03/13/21 16:40 03/13/21 18:00 03/13/21 20:00 Temperature 36.6 C 36.1 C L Pulse Rate 89 91 92 Respiratory Rate 19 16 16 Blood Pressure 139/63 126/60 126/60 Pulse Oximetry 96 100 99 03/13/21 22:00 03/13/21 23:50 03/14/21 00:00 Temperature 37.0 C Pulse Rate 85 89 86 Respiratory Rate 17 16 Blood Pressure 149/87 H 154/68 H Pulse Oximetry 96 99 97 03/14/21 02:00 03/14/21 04:00 03/14/21 05:51 Temperature 36.7 C Pulse Rate 80 77 80 Respiratory Rate 18 16 Blood Pressure 133/54 L 150/66 H
--- NOTE | 2021-03-14 12:32 | PM.PNNEP ---
Progress Note: A&P Assessment and Plan (1) End stage renal disease: Code(s): N18.6 - End stage renal disease Status: Chronic Assessment and Plan: HD tomorrow and continue M/W/ schedule optimize electrolytes, volume status, and clearance (2) Acute respiratory failure: Code(s): J96.00 - Acute respiratory failure, unspecified whether with hypoxia or hypercapnia Status: Acute Assessment and Plan: resolved -- extubated triggered by HTN versus flash pulmonary edema again versus anxiety versus something else or combination of all?? Cardiology notes reviewed -- possible restrictive cardiac disease playing a role? CT scan of chest and CXRs as noted fluid removal with HD to maintain euvolemia (3) Hypertension: Qualifiers: Hypertension type: unspecified Qualified Code(s): I10 - Essential (primary) hypertension Code(s): I10 - Essential (primary) hypertension Status: Chronic Assessment and Plan: reasonable control at this time follow trend of hemodyanamics (4) Anemia: Code(s): D64.9 - Anemia, unspecified Status: Chronic Assessment and Plan: due to ESRD and recent hospitalizations Epogen with HD follow trend of H/H (5) Peripheral vascular disease: Code(s): I73.9 - Peripheral vascular disease, unspecified Status: Acute Assessment and Plan: s/p recent left AKA and previous right BKA stump local wound care for left AKA (6) Diabetes: Qualifiers: Diabetes mellitus complication detail: with other circulatory complications Diabetes mellitus complication status: with circulatory complication Diabetes mellitus type: type 1 Qualified Code(s): E10.59 - Type 1 diabetes mellitus with other circulatory complications Code(s): E11.9 - Type 2 diabetes mellitus without complications Status: Chronic Assessment and Plan: follow accuchecks on Lantus and SSI Not opposed to discharge from renal perspective -- he should follow-up at [facility] for his next scheduled treatment on Monday. Will continue to follow. Subjective Date/time seen: 03/14/21 12:32 Tolerated dry ultrafiltration yesterday with approximately 2L fluid removal; otherwise, no apparent distress today; no events/issues overnight or earlier this AM; feels quite well; happy about discharge today. Exam Narrative: Exam Narrative: General: WD/WN male in NAD Heart: normal S1 and S2; no rub Lungs: coarse breath sounds Abdomen: soft, nontender, nondistended, positive bowel sounds Extremities: no cyanosis or clubbing; no edema Skin: warm and intact Objective Data Vital Signs Vital Signs: Vital Signs Temp Pulse Resp BP Pulse Ox 03/14/21 12:00 97 03/14/21 10:01 76 14 129/64 97 03/14/21 10:00 76 03/14/21 08:24 78 03/14/21 08:00 36.4 C L 76 16 158/72 H 100 03/14/21 06:58 143/66 H 03/14/21 05:52 78 20 98 03/14/21 05:51 80 03/14/21 04:00 36.7 C 77 16 150/66 H 97 03/14/21 02:00 80 18 133/54 L 96 03/14/21 00:00 86 97 03/13/21 23:50 37.0 C 89 16 154/68 H 99 03/13/21 22:00 85 17 149/87 H 96 03/13/21 20:00 36.1 C L 92 16 126/60 99 03/13/21 18:00 91 16 126/60 100 03/13/21 16:40 36.6 C 89 19 139/63 96 03/13/21 16:30 89 143/73 H 03/13/21 16:15 88 131/65 03/13/21 16:00 36.6 C 90 16 131/65 97 03/13/21 15:45 86 123/64 03/13/21 15:30 98 119/55 L 03/13/21 15:15 88 126/52 L 03/13/21 15:02 94 03/13/21 15:00 92 138/64 03/13/21 14:45 93 129/62 03/13/21 14:30 93 117/54 L 03/13/21 14:15 93 117/59 L Intake/Output Intake/Output: Intake & Output 03/11/21 03/12/21 03/13/21 03/14/21 23:59 23:59 23:59 23:59 Intake Total 840 580 733 250 Output Total 800 1226 2060 0 Balance 40 -516 1327 250 Meds/Results Medications: Active Medications Generi
[2021-03-14 12:37] LABS: Glucose Point of Care 213 (65-105)
[2021-03-14] MEDS: INSULIN ASPART (*BKC) 100 UNITS/ML SUB-Q (12:47)
== END 2021-03-14 14:30 | disposition home or self-care (01) | DRG 291 ==
LOC: ANHED 02:04 → ANHIMU 03:34 → ANHICU 05:57
PROVIDERS: Internal Medicine; Admitting Provider Family Medicine; Emergency Provider Emergency Medicine; PCP Emergency Medicine; Visit Provider Internal Medicine
DX: I13.2 Hypertensive heart and chronic kidney disease with heart failure and with stage 5 chronic kidney disease, or end stage renal disease (principal); N18.6 End stage renal disease; J96.01 Acute respiratory failure with hypoxia; I50.32 Chronic diastolic (congestive) heart failure; N17.9 Acute kidney failure, unspecified; F41.8 Other specified anxiety disorders; I16.0 Hypertensive urgency; E10.21 Type 1 diabetes mellitus with diabetic nephropathy; E10.40 Type 1 diabetes mellitus with diabetic neuropathy, unspecified; E10.319 Type 1 diabetes mellitus with unspecified diabetic retinopathy without macular edema; E10.51 Type 1 diabetes mellitus with diabetic peripheral angiopathy without gangrene; E10.22 Type 1 diabetes mellitus with diabetic chronic kidney disease; D63.1 Anemia in chronic kidney disease; R79.89 Other specified abnormal findings of blood chemistry; N40.0 Benign prostatic hyperplasia without lower urinary tract symptoms; I25.10 Atherosclerotic heart disease of native coronary artery without angina pectoris; N25.0 Renal osteodystrophy; K21.9 Gastro-esophageal reflux disease without esophagitis; E55.9 Vitamin D deficiency, unspecified; Z89.612 Acquired absence of left leg above knee; I25.2 Old myocardial infarction; Z95.5 Presence of coronary angioplasty implant and graft; Z91.19 Patient's noncompliance with other medical treatment and regimen; Z99.2 Dependence on renal dialysis; Z87.891 Personal history of nicotine dependence
CPT/HCPCS: 31500; 36415; 36600; 71045; 71046; 71275; 80048; 80053; 80069; 82375; 82607; 82746; 82805; 82948; 83050; 83735; 83880; 84100; 84484; 85025; 85027; 85610; 85730; 87086; 93005; 94002; 94640; 96374; 96375; 96376; 97110; 97116; 97161; 97165; 97530; 99285; A9270; G0257; G0378; J0360; J1644; J1815; J1940; J2060; J2270; J2405; J2704; J7030; P9047; Q9967

== ENCOUNTER 2021-03-16 06:58 | Inpatient (IN) | payer MEDICARE, MEDICAID, SELFPAY ==
[2021-03-16] VITALS (36 sets, daily range): BP systolic 139–190; BP diastolic 47–112; PULSE 84–111; RESP 16–24; TEMP 36–36.8; O2SAT 97–100
--- NOTE | ~2021-03-16 | XR_ITS ---
EXAMINATION: XR chest 1V portable INDICATION: Shortness of breath TECHNIQUE: Portable AP chest at 0746 hours COMPARISON: 03/16/2021 FINDINGS: Cardiomegaly is noted. A mild diffuse interstitial pattern persists but has improved. Opaci ties of the mid lung zones have also improved. There is minimal developing opacity of the right lung base. There is no pleural effusion or pneumothorax. IMPRESSION: 1. Cardiomegaly with improving pulmonary edema. 2. Improved opacities of the midlung zones and developing opacity in the right lung base, consistent with pulmonary edema and/or pneumonia and/or atelectasis. Reviewed, dictated and finalized at location A.
--- NOTE | ~2021-03-16 | XR_ITS ---
EXAMINATION: XR chest 1V portable INDICATION: Shortness of breath TECHNIQUE: Portable AP chest at 0747 hours COMPARISON: 03/13/2021 FINDINGS: There are patchy opacities in the midlung zones, left greater than right. Cardiomegaly is n oted. There are curly B lines of the mid and lower lung zones. No pleural effusion or pneumothorax is identified. IMPRESSION: 1. Cardiomegaly with mild pulmonary edema. 2. Patchy opacities of the mid lung zones could reflect pulmonary edema and/or pneumonia. Reviewed, dictated and finalized at location A.
--- NOTE | 2021-03-16 07:03 | ECG_ITS ---
Measurements Intervals [place] Rate: 107 P: 64 GA: 151 QRS: 71 QRSD: 90 T: 90 QT: 342 QTc: 458 Interpretive Statements SINUS TACHYCARDIA POSSIBLE LEFT ATRIAL ENLARGEMENT BORDERLINE R WAVE PROGRESSION, ANTERIOR LEADS PEAKED T WAVES- CONSIDER HYPERKALEMIA OR ISCHEMIA BORDERLINE ST-T WAVE ABNORMALITY- INF/LAT LEADS BASELINE WANDER- AVF ABNORMAL ECG Electronically Signed On 03-16-2021 7:16:07 CDT by Edmond Elias D.O.
[2021-03-16] MEDS: NITROGLYCERIN OINTMENT 1 INCH DOSE TRANSDERM (07:31)
[2021-03-16] MEDS: FUROSEMIDE INJ 100 MG/10 ML VIAL 80 MG IV PUSH (07:31)
[2021-03-16 07:34] LABS: Basophils Absolute Auto 0.1 K/mm3 (0.0-0.1); Basophils Percent Auto 0.5 % (0.2-1.2); Eosinophils Absolute Auto 0.6 K/mm3 (0-0.3); Eosinophils Percent Auto 5.1 % (0-4.4); Hematocrit 26.5 % (42.0-52.0); Hemoglobin 8.3 g/dL (14.0-18.0); Immature Granulocyte Absolute 0.05 K/mm3 (0.00-0.031); Immature Granulocyte Percent A 0.5 % (0-0.5); Lymphocytes Absolute Auto 1.13 K/mm3 (0.9-3.2); Lymphocytes Percent Auto 10.4 % (18.3-44.2); Mean Corpuscular HGB Conc 31.3 g/dl (32-36); Mean Corpuscular Hemoglobin 30.2 pg (26-34); Mean Corpuscular Volume 96.4 fl (80-100); Mean Platelet Volume 9.5 fl (7.4-10.4); Monocytes Absolute Auto 0.8 K/mm3 (0.1-0.6); Monocytes Percent Auto 7.2 % (2.6-8.5); Neutrophils Absolute Auto 8.3 K/mm3 (1.3-6.7); Neutrophils Percent Auto 76.3 % (45.5-73.1); Platelet Count Result 414 k/mm3 (150-375); Red Blood Count 2.75 M/mm3 (4.6-6.20); Red Cell Distribution Width 18.3 % (11.5-14.5); White Blood Count 10.9 K/mm3 (4.5-10.0)
--- NOTE | 2021-03-16 07:43 | ED.SOB ---
HPI - SOB/Dyspnea General Chief Complaint: Shortness of Breath/Dyspnea Stated Complaint: DIFFICULTY BREATHING Time Seen by Provider: 03/16/21 07:00 History of Present Illness HPI Narrative: Patient is a 56-year-old male well-known to the hospital with history of ESRD and CHF. Who presents in acute respiratory failure. He is awake alert and oriented x3. Reports been feeling short of breath but suddenly worsened this morning. He is on CPAP which was placed by EMS and he is feeling markedly improved. No chest pain or chest pressure. Reports he received dialysis yesterday. Denies any systemic infectious symptoms. Related Data Home Medications Medication Instructions Recorded Confirmed furosemide 80 mg PO BID 02/05/20 03/16/21 aspirin 81 mg PO DAILY 07/02/20 03/16/21 Dang-Nilsa 1 tablet PO DAILY 07/23/20 03/16/21 albuterol sulfate 1 puff INHALATION QID 01/11/21 03/16/21 atorvastatin 80 mg PO HS 01/11/21 03/16/21 lorazepam 1 mg PO BID PRN 01/11/21 03/16/21 ropinirole 0.25 mg PO DIRECTED 01/11/21 03/16/21 amlodipine 5 mg PO DAILY 02/15/21 03/16/21 sevelamer carbonate 800 mg PO TID 02/15/21 03/16/21 vitamin B complex [B 1 tablet PO DAILY 02/15/21 03/16/21 Complex-Vitamin B12] carvedilol 25 mg tablet 25 mg PO HS 03/02/21 03/16/21 carvedilol 50 mg PO DAILY 03/16/21 03/16/21 Allergies Allergy/AdvReac Type Severity Reaction Status Date / Time scopolamine Allergy Severe Unresponsiv Verified 03/16/21 10:13 e Review of Systems Review of Systems: All systems reviewed & are unremarkable except as noted in HPI and below Constitutional: Constitutional: Denies chills, Denies fever(s) and Denies weakness ENT: Denies nasal congestion and Denies sore throat Cardiovascular: Cardiovascular: Denies chest pain and Denies radiating jaw, neck or arm pain Respiratory: Respiratory: Denies cough, Reports dyspnea and Denies wheezing Gastrointestinal: Gastrointestinal: Denies abdominal pain, Denies nausea and Denies vomiting [facility] Past Medical History Medical History (Updated 03/16/21 @ 17:15 by Vivek Sears MD) Amputation above knee Anxiety Benign prostatic hyperplasia Bradycardic cardiac arrest (~07/23/20) In the setting of severe hyperkalemia, acute pulmonary edema, and respiratory failure Chronic anemia Congestive heart failure Echocardiogram in August 2020 showed a mildly enlarged left ventricular chamber, severely reduced left ventricular systolic function with an estimated ejection fraction of 25 to 30%, moderately increased LV wall thickness, grade 2 diastolic dysfunction, severe aortic valve sclerosis, mild mitral, tricuspid, and pulmonic valve regurgitation, mild pulmonary hypertension with an estimated arterial pressure 43 mmHg, and areas of hypokinesis including the apex, inferior wall, anterior wall, inferoseptal wall, anterolateral wall, and anteroseptal wall. Coronary artery disease With non STEMI in December 2019, with stent placed to the LAD. Depression with anxiety End-stage renal disease on hemodialysis Erythropoietin deficiency anemia Gastric ulcer On endoscopy per Dr. Pacheco in June 2020. Gastroesophageal reflux disease Hypertension Noncompliance Renal osteodystrophy Seizure Secondary to hypoglycemia. ST elevation myocardial infarction (STEMI) (~06/26/20) Secondary to abrupt stent thrombosis of the LAD. Tobacco dependence Type 1 diabetes mellitus Diagnosed at the age of 10. Complicated by retinopathy, nephropathy, and neuropathy. Hemoglobin A1c was 7.6% in July 2020. Vitamin D deficiency disease Surgical History Surgical History History of endoscopy (~06/27/20) History of femoropopliteal bypass 02/04/21 left common femoral endarterectomy with left femoral to below-knee popliteal artery bypass History of heart artery stent Stent in the LAD in December 2019. Patient had abrupt stent thrombosis of the previously placed stent to the LAD
[2021-03-16 07:47] LABS: INR 0.9; Prothrombin Time 12.7 Seconds (11.1-14.7)
[2021-03-16 07:48] LABS: Anion Gap 9 mmol/L (8-16); Blood Urea Nitrogen 44 mg/dL (9-20); Calcium 8.4 mg/dL (8.4-10.2); Carbon Dioxide 34 mmol/L (22-30); Chloride 99 mmol/L (98-107); Estimated Glomerular Filt Rate 15; Glucose 206 mg/dL (75-110); Potassium 5.1 mmol/L (3.4-5.0); Sodium 142 mmol/L (137-145)
[2021-03-16 07:53] LABS: NT Pro B Type Natriuretic Pept > 35000 pg/mL (5-100)
--- NOTE | 2021-03-16 09:46 | ADMGEN ---
This patient, sIh Corley, was admitted to IMU Room 204-01 on 03/16/21 at 0919. Patient/family oriented to hospital policies and general routines including ID bracelet, bed and alarms, visiting hours, pain management, procedures, bathroom and other care routines, personal items, smoking policy, room service/diet, and visiting hours. Information on how to activate the Rapid Response Team has been discussed. Patient/Family are encouraged to report perceived risks to care and to ask questions if they do not understand what they are told or what they should do.
[2021-03-16] MEDS: MORPHINE SULFATE (*CRX) 4 MG/ML INJ IV PUSH ×3 (11:52→21:18)
[2021-03-16 12:48] LABS: Glucose Point of Care 235 (65-105)
[2021-03-16] MEDS: INSULIN ASPART (*BKC) 100 UNITS/ML SUB-Q (16:23)
--- NOTE | 2021-03-16 16:28 | PM.IMHP ---
H&P: HPI History of Present Illness Date/Time: 03/16/21 16:28 SOB Pt is known to our service has been here multiple times in past month. Pt has ESRD and CHF, pt was here with flash pulmonary edema,pt had to be intubated at that time pt was extubated and did well with iv lasix later developed DKA was in icu and then was discharged the next day. Pt felt similar sob and came into the hospital. Pt had dialysis yesterday is compliant to dialysis and his medications. Pt was seen by cardiology last week and was found to have EF now 55-60% worse previously severely depressed. Cardiology, had concerns given his LVH and speckled myocardium considerations for further MRI cardiac imaging at [place] maybe needed, to consider restrictive cardiomyopathy. I discussed wit the patient about transfer, he would like to stay here and will decide after he sees cardiology again. On admission today he describes sudden SOB in his chest, not at the moment and is comfortable in his wheelchair. Pt has history of tobacco abuse and BL amputation. Chief Complaint: Shortness of breath Review of Systems Review of Systems: All systems reviewed & are unremarkable except as noted in HPI and below PMFSH Past Medical History Medical History (Updated 03/16/21 @ 16:44 by Sade Ayala MD) Amputation above knee Anxiety Benign prostatic hyperplasia Bradycardic cardiac arrest (~07/23/20) In the setting of severe hyperkalemia, acute pulmonary edema, and respiratory failure Chronic anemia Congestive heart failure Echocardiogram in August 2020 showed a mildly enlarged left ventricular chamber, severely reduced left ventricular systolic function with an estimated ejection fraction of 25 to 30%, moderately increased LV wall thickness, grade 2 diastolic dysfunction, severe aortic valve sclerosis, mild mitral, tricuspid, and pulmonic valve regurgitation, mild pulmonary hypertension with an estimated arterial pressure 43 mmHg, and areas of hypokinesis including the apex, inferior wall, anterior wall, inferoseptal wall, anterolateral wall, and anteroseptal wall. Coronary artery disease With non STEMI in December 2019, with stent placed to the LAD. Depression with anxiety End-stage renal disease on hemodialysis Erythropoietin deficiency anemia Gastric ulcer On endoscopy per Dr. Pacheco in June 2020. Gastroesophageal reflux disease Hypertension Noncompliance Renal osteodystrophy Seizure Secondary to hypoglycemia. ST elevation myocardial infarction (STEMI) (~06/26/20) Secondary to abrupt stent thrombosis of the LAD. Tobacco dependence Type 1 diabetes mellitus Diagnosed at the age of 10. Complicated by retinopathy, nephropathy, and neuropathy. Hemoglobin A1c was 7.6% in July 2020. Vitamin D deficiency disease Surgical History Surgical History History of endoscopy (~06/27/20) History of femoropopliteal bypass 02/04/21 left common femoral endarterectomy with left femoral to below-knee popliteal artery bypass History of heart artery stent Stent in the LAD in December 2019. Patient had abrupt stent thrombosis of the previously placed stent to the LAD on June 26, 2020 left coronary with extraction thrombectomy and stenting distal to the original stent with upsizing of the original stent. History of spinal surgery Neurostimulator in place. History of transmetatarsal amputation of left foot 02/04/21 at [facility]. Status post above-knee amputation of left lower extremity February 2021 at [facility] Status post below knee amputation of right lower extremity (~12/02/19) Performed [facility]. Status post cataract extraction Status post creation of arteriovenous fistula Left upper extremity. Status post hemorrhoidectomy Family History Family History Father Hypertension Sibling Multiple myeloma Hypertension Mother Acute myel
[2021-03-16 17:06] LABS: Glucose Point of Care 285 (65-105)
[2021-03-16 17:52] LABS: Troponin I 0.041 ng/mL (0.000-0.034)
[2021-03-16] MEDS: FUROSEMIDE INJ 40 MG/4 ML VIAL IV PUSH (18:40)
[2021-03-16] MEDS: SEVELAMER CARBONATE 800 MG TABLET PO (18:40)
[2021-03-16 19:55] LABS: Glucose Point of Care 166 (65-105)
--- NOTE | 2021-03-16 21:39 | PC.NURSE ---
pt. taken to dialysis room for treatment at 194
[2021-03-16] MEDS: TICAGRELOR 90 MG TABLET PO (23:21)
[2021-03-16] MEDS: HYDROcodone/acetaminophen (*CRX) 5-325 MG TABLET 1 TAB PO (23:22)
[2021-03-16] MEDS: ATORVASTATIN 40 MG TABLET 80 MG PO (23:22)
[2021-03-16] MEDS: LORazepam (*CRX) 1 MG TABLET PO (23:23)
[2021-03-16] MEDS: rOPINIRole HCL 0.25 MG TABLET PO (23:23)
[2021-03-16] MEDS: busPIRone HCL 5 MG TABLET PO (23:23)
[2021-03-16] MEDS: carvediloL 25 MG TABLET PO (23:24)
[2021-03-16] MEDS: INSULIN GLARGINE (*BKC) 100 UNITS/ML 10 UNITS SUB-Q (23:26)
--- NOTE | 2021-03-16 23:52 | PC.NURSE ---
pt. returned back to room following dialysis tratment.
[2021-03-17] VITALS (25 sets, daily range): BP systolic 116–172; BP diastolic 47–73; PULSE 76–95; RESP 16–20; TEMP 36–37; O2SAT 95–100
[2021-03-17] MEDS: MORPHINE SULFATE (*CRX) 4 MG/ML INJ IV PUSH ×4 (00:37→16:54)
[2021-03-17] MEDS: HYDROcodone/acetaminophen (*CRX) 5-325 MG TABLET 1 TAB PO ×3 (04:23→20:45)
[2021-03-17 04:57] LABS: Hemoglobin 7.7 g/dL (14.0-18.0); Mean Corpuscular HGB Conc 30.8 g/dl (32-36); Mean Corpuscular Hemoglobin 30.2 pg (26-34); Mean Platelet Volume 9.4 fl (7.4-10.4); Platelet Count Result 342 k/mm3 (150-375); Red Blood Count 2.55 M/mm3 (4.6-6.20); Red Cell Distribution Width 18.2 % (11.5-14.5); White Blood Count 8.6 K/mm3 (4.5-10.0)
[2021-03-17 05:26] LABS: Anion Gap 3 mmol/L (8-16); Blood Urea Nitrogen 25 mg/dL (9-20); Calcium 8.4 mg/dL (8.4-10.2); Carbon Dioxide 36 mmol/L (22-30); Chloride 96 mmol/L (98-107); Estimated Glomerular Filt Rate 20; Glucose 321 mg/dL (75-110); Potassium 4.3 mmol/L (3.4-5.0); Sodium 135 mmol/L (137-145)
[2021-03-17 07:24] LABS: Glucose Point of Care 313 (65-105)
[2021-03-17] MEDS: INSULIN ASPART (*BKC) 100 UNITS/ML SUB-Q (07:31)
[2021-03-17] MEDS: ALBUTEROL SULFATE (*SP) AEROSOL 1 PUFF INHALATION ×4 (08:12→20:49)
--- NOTE | 2021-03-17 08:23 | PM.CNNEP ---
Assessment and Plan Assessment and plan (1) ESRD (end stage renal disease) on dialysis: Code(s): N18.6 - End stage renal disease; Z99.2 - Dependence on renal dialysis Status: Chronic Assessment and Plan: Ish has end-stage renal disease. He had dialysis on Monday and a short treatment last night. We will do another treatment today. He is somewhat thin and I question how well he eats at home. Although he eats really bad foods and his phosphorus is frequently very high I suspect his dietary intake is a little lower. He probably has lost some weight between the above and also the left above the knee amputation. Will take more fluid off today and reduce dry weight at [place]. (2) Acute respiratory failure: Code(s): J96.00 - Acute respiratory failure, unspecified whether with hypoxia or hypercapnia Status: Acute Assessment and Plan: The patient had volume overload yesterday. This may be because he needs a lower dry weight. His hypertension always plays a role in this as well In addition he has diastolic dysfunction which means he does not tolerate excess fluid well at all. He has anxiety as well which makes any SOB worse for him and can accelerate his hypertensive response to volume overload. We reviewed all of these issues. (3) Peripheral vascular disease: Code(s): I73.9 - Peripheral vascular disease, unspecified Status: Acute Assessment and Plan: Patient has a right [id number] amputation and has a prosthesis for this. He has a left [id number] amputation and this is still undergoing processes before he can get a prosthesis. (4) Hypertension: Qualifiers: Hypertension type: unspecified Qualified Code(s): I10 - Essential (primary) hypertension Code(s): I10 - Essential (primary) hypertension Status: Chronic Assessment and Plan: His blood pressure is a bit high this morning. Will take more fluid off today. He is getting his home medications. (5) Erythropoietin deficiency anemia: Code(s): D63.1 - Anemia in chronic kidney disease Status: Acute Assessment and Plan: He is getting Epogen with dialysis (6) Diabetes: Code(s): E11.9 - Type 2 diabetes mellitus without complications Status: Acute Assessment and Plan: On Accu-Cheks and sliding-scale insulin History of Present Illness Reason for Consult Consult date: 03/17/21 Chief Complaint Chief complaint: Acute respiratory failure, chf exacerbation History of Present Illness Narrative: Ish is a very pleasant 55 yo gentleman who has multiple medical problems including end-stage renal disease on dialysis 3 times a week, severe hypertension, diastolic dysfunction, systolic dysfunction, severe aortic valve sclerosis, mild pulmonary hypertension, continued smoking, coronary disease status post AK, anemia, renal osteodystrophy, gastric ulcer, BPH, peripheral vascular disease status post right [id number] amputation and left [id number] amputation, diabetes with retinopathy nephropathy neuropathy, and vitamin-D deficiency. The patient has been in out of the hospital frequently with flash pulmonary edema. He had dialysis on Monday and did well in got to his dry weight. Yesterday morning he became short of breath and gradually worsened so they called an ambulance and had him brought over to [place] [facility]. By the time he was in the ER he was very short of breath. He was given oxygen and BiPAP mask. He settled down and actually came off the BiPAP mask and off oxygen by yesterday afternoon. In the past he has done this and then reverted to flash pulmonary edema and intubated. For this reason, he was dialyzed yesterday evening and about 3L were removed. He was better after the treatment and feels better today. He is off oxygen and his O2 sats are 95%. The patient is asking about home oxygen. We discussed criteria for insurance paying for it. He is going
[2021-03-17] MEDS: VITAMIN B CMPLX/VIT C/FOLIC AC 1 CAPSULE 1 CAP PO (08:39)
[2021-03-17] MEDS: SEVELAMER CARBONATE 800 MG TABLET PO ×3 (08:39→16:41)
[2021-03-17] MEDS: amLODIPine BESYLATE 5 MG TABLET PO (08:39)
[2021-03-17] MEDS: SERTRALINE HCL 50 MG TABLET 100 MG PO (08:40)
[2021-03-17] MEDS: FAMOTIDINE 20 MG TABLET PO (08:40)
[2021-03-17] MEDS: VITAMIN B COMPLEX CAPSULE 1 CAP PO (08:40)
[2021-03-17] MEDS: HEPARIN SODIUM 5,000 UNITS/ML VIAL 5000 UNITS SUB-Q ×2 (08:42→20:44)
[2021-03-17] MEDS: GABAPENTIN 300 MG CAPSULE PO (08:42)
[2021-03-17] MEDS: TICAGRELOR 90 MG TABLET PO ×2 (08:42→20:46)
[2021-03-17] MEDS: FUROSEMIDE INJ 40 MG/4 ML VIAL IV PUSH ×2 (08:42→16:41)
[2021-03-17] MEDS: busPIRone HCL 5 MG TABLET PO ×2 (08:42→20:47)
[2021-03-17] MEDS: ASPIRIN 81 MG ENTERIC TABLET PO (08:42)
[2021-03-17] MEDS: NICOTINE (*PBKC) 14 MG PATCH 1 PATCH TRANSDERM (08:44)
[2021-03-17] MEDS: SILVERGEL (ELTA) 45 ML 1 APPLIC TOPICAL (08:45)
[2021-03-17] MEDS: INSULIN GLARGINE (*BKC) 100 UNITS/ML 12 UNITS SUB-Q (08:50)
[2021-03-17] MEDS: carvediloL 25 MG TABLET 50 MG PO (09:03)
--- NOTE | 2021-03-17 09:45 | PCPTNOTE ---
Attempted PT eval. Pt gone to dialysis. Will try again at later time.
--- NOTE | 2021-03-17 09:58 | PCOTNOTE ---
OT evaluation attempted. Patient down for dialysis this am. Will attempt at later time.
--- NOTE | 2021-03-17 12:12 | PM.CNCAR ---
Assessment and Plan Additional Plan This is a 55-year-old man with extensive peripheral vascular disease also history of coronary disease with previous PCI to the proximal/ostial LAD segments. He has had a series of admissions here with abrupt shortness of breath on a couple of occasions at least as had to be intubated. The etiology of this remains unexplained. It is always possible that he has a new unstable coronary lesion he with no he has not had a significant apparent acute coronary syndrome during any of these presentations. Because of the complexity of his case and peripheral disease I did recommend transferring him downtown to [facility] for further evaluation of this with the patient is refusing that at this point. For that reason I suppose we will try to schedule a follow-up coronary angiogram here at [facility] tomorrow. Further recommendations of course will be pending completion of that exam. Chance Landis MD [facility] History of Present Illness History of Present Illness Consult date/time: 03/17/21 12:12 Consult reason: congestive heart failure Reason For Visit: Acute respiratory failure, chf exacerbation Narrative: This is a 55-year-old man I am seeing at the request of the hospitalist because of severe acute shortness of breath prompting readmission to the hospital last evening. This is a gentleman who has been hospitalized on a multitude of occasions here at [facility] with would is being called flash pulmonary edema where he will abruptly experience respiratory distress and on a number of occasions has had to be intubated. He has a history of coronary artery disease with a prior anterior wall infarction and I believe on a couple of occasions percutaneous revascularization to the proximal LAD. It is my recollection that he had the artery stented on 1 occasion and then had an abrupt stent thrombosis where he had balloon dilatation and up sizing of the stent as it appeared to be somewhat under expanded. When that occurred in the past he had relatively severe LV systolic function is 1 would expect and was followed by Dr. Grimaldo of our practice. Was stable for a while but here in the last couple of months has been seen at [facility] on a variety of occasions with severe shortness of breath and at least 2 or 3 times has been abruptly reintubated. He came back with shortness of breath last night was seen in the emergency room. He this time did not have to be intubated but was admitted for further evaluation and treatment. He is currently in hemodialysis his comfortable and has no complaints. This is a gentleman obviously with chronic end-stage renal failure dependent on hemodialysis he also has severe peripheral vascular disease and has had amputations of both lower extremities. During a more recent admission with this shortness of breath echocardiogram was interpreted as showing very good left ventricular systolic function making even more puzzling as to the nature of these events. There was some discussion about sending this patient to [facility] for more advanced imaging of his heart with MRI because 1 of the echocardiograms commented on a speckled appearance to the myocardium. This is the raise the concern of the possibility of a restrictive process on the other hand it does not appear to be explaining abrupt sudden shortness of breath. During the recent events the patient has not had a significant troponin rise or any chest pain. It is of course still possible that he has a recurrent coronary lesion explaining these episodes. I recommended in the consultation today transferring the patient to [facility] where he could undergo further evaluation of his case since we do not appear to be coming up with a diagnosis here that avoids these episodes. After discussing with the patient he does not wish to be transferred to another hospital at this time. We discussed the option of doing a coronary angiogram here and that is what he would prefer. Review o
[2021-03-17 12:40] LABS: Glucose Point of Care 63 (65-105)
[2021-03-17 13:43] LABS: Glucose Point of Care 77 (65-105)
--- NOTE | 2021-03-17 14:13 | PC.NURSE ---
Spoke with ADAMARIS Pablo at Dr. Guillaume's office who stated that Dr. Guillaume approved having the madeleine to the left leg removed at this time. Bev stated the madeleine were to be removed last week, but due to hospitalizations the removal was delayed. Called Dr. Ayala to make her aware that MD has ok removal and patient is requesting removal.
--- NOTE | 2021-03-17 15:09 | PC.NURSE ---
When pt came back from dialysis, pt's BS was 66. His tray was there. He ate and also had an apple juice. BS was checked about 45 minutes later and it was 77.
--- NOTE | 2021-03-17 15:46 | PM.IMPN ---
Progress Note: A&P Assessment and Plan (1) Peripheral vascular disease: Code(s): I73.9 - Peripheral vascular disease, unspecified Status: Acute Assessment and Plan: BL amputee with prosthesis and wheelchair, pt had recent surgery, needs his madeleine removed near his upper leg (2) Dyspnea: Code(s): R06.00 - Dyspnea, unspecified Status: Acute Assessment and Plan: iv lasix for diuresis (3) Acute exacerbation of CHF (congestive heart failure): Qualifiers: Heart failure type: unspecified Qualified Code(s): I50.9 - Heart failure, unspecified Code(s): I50.9 - Heart failure, unspecified Status: Acute Assessment and Plan: CARDIOLOGY CONSULT (4) Amputation above knee: Code(s): S78.119A - Complete traumatic amputation at level between unspecified hip and knee, initial encounter Status: Acute Assessment and Plan: CHRONIC HISTORY (5) Elevated troponin: Code(s): R77.8 - Other specified abnormalities of plasma proteins Status: Acute Assessment and Plan: MONITOR while in hospital sp heart cath showing - minimal coronary irregularities and patent stent in LAD. (6) Diabetes: Code(s): E11.9 - Type 2 diabetes mellitus without complications Status: Acute Assessment and Plan: SSI and accuchecks (7) Hypertension: Qualifiers: Hypertension type: unspecified Qualified Code(s): I10 - Essential (primary) hypertension Code(s): I10 - Essential (primary) hypertension Status: Chronic Assessment and Plan: Continue BP medications (8) Smoking: Code(s): F17.200 - Nicotine dependence, unspecified, uncomplicated Status: Acute Assessment and Plan: NICOTINE PAtches advised o quit smoking (9) IDDM (insulin dependent diabetes mellitus): Status: Chronic Assessment and Plan: Accuchecks, SSI (10) ESRD (end stage renal disease) on dialysis: Code(s): N18.6 - End stage renal disease; Z99.2 - Dependence on renal dialysis Status: Chronic Assessment and Plan: CONSULT NEPHROLOGY continue dialysis as before mon and monday monitor bmp in hospital Subjective Date/time seen: 03/17/21 15:46 Interval history: Pt is known to our service has been here multiple times in past month. Pt has ESRD and CHF, pt was here with flash pulmonary edema. Pt states he is compliant to his medications and has been to his dialysis sessions. ? unsure about his compliance to his diet and pt continues to smoke. Review of Systems Review of Systems: All systems reviewed & are unremarkable except as noted in HPI and below Exam Const: General: other (chronically ill appears comfortable in his wheelchair ) HENMT: Head: normocephalic Eyes: Pupils: Equal, round and reactive pupils present Neck: Neck: supple Resp: Effort & Inspection: other (fine crackles in bases ) Cardio: Jugular venous distension: no JVD Rhythm: regular rhythm Heart sounds: S1 normal heart sound present and S2 normal heart sound present GI: Inspection: normal to inspection Auscultation: normal bowel sounds Skin: General skin exam: normal color and dry skin Neuro: Cranial nerves: Yes CN's II-XII intact bilaterally and Yes Equal, round and reactive pupils present Cognition (Neuro): normal cognition Speech: normal speech Motor exam (neuro): 5/5 motor strength present throughout Extrem: General: other (BL amputee with prosthesis on right leg ) Psych: Appearance: grossly normal Mental Status: mental status grossly normal Objective Data Vital Signs Vital Signs: Vital Signs - 24 hr 03/16/21 16:00 03/16/21 18:00 03/16/21 19:49 Temperature 36.5 C 36.8 C Pulse Rate 91 93 86 Respiratory Rate 18 18 Blood Pressure 168/73 H 150/80 H Pulse Oximetry 100 03/16/21 19:55 03/16/21 20:00 03/16/21 20:15 Temperature 36.6 C Pulse Rate 84 86 86 Respiratory Rate 18 18 Blood P
[2021-03-17 16:53] LABS: Glucose Point of Care 170 (65-105)
--- NOTE | 2021-03-17 17:31 | PC.NURSE ---
Spoke with Dr. Gee to ensure that cardiology was aware of the patients recent left common femoral artery endartarectomy on 02/04/[address] Guillaume. The patient is to have a cath tomorrow, 03/18/2021. Informed Dr. Gee that I requested and had received the records from Dr. Guillaume's office and placed them on the chart. Dr. Gee then went into the patients room and spoke with the patient and his at bedside.
[2021-03-17 17:51] LABS: Glucose Point of Care 226 (65-105)
[2021-03-17 19:32] LABS: Glucose Point of Care 264 (65-105)
[2021-03-17] MEDS: INSULIN GLARGINE (*BKC) 100 UNITS/ML 10 UNITS SUB-Q (20:43)
[2021-03-17] MEDS: ATORVASTATIN 40 MG TABLET 80 MG PO (20:45)
[2021-03-17] MEDS: LORazepam (*CRX) 1 MG TABLET PO (20:45)
[2021-03-17] MEDS: rOPINIRole HCL 0.25 MG TABLET PO (20:45)
[2021-03-17] MEDS: carvediloL 25 MG TABLET PO (20:46)
[2021-03-18] VITALS (27 sets, daily range): BP systolic 103–150; BP diastolic 30–80; PULSE 60–89; RESP 10–20; TEMP 36–36.6; O2SAT 95–100
[2021-03-18 05:21] LABS: Hematocrit 26.4 % (42.0-52.0); Mean Corpuscular HGB Conc 30.3 g/dl (32-36); Mean Corpuscular Hemoglobin 29.7 pg (26-34); Mean Corpuscular Volume 98.1 fl (80-100); Mean Platelet Volume 9.2 fl (7.4-10.4); Platelet Count Result 345 k/mm3 (150-375); Red Blood Count 2.69 M/mm3 (4.6-6.20); Red Cell Distribution Width 18.6 % (11.5-14.5); White Blood Count 6.3 K/mm3 (4.5-10.0)
[2021-03-18 05:35] LABS: Anion Gap 3 mmol/L (8-16); Blood Urea Nitrogen 27 mg/dL (9-20); Calcium 8.7 mg/dL (8.4-10.2); Carbon Dioxide 37 mmol/L (22-30); Chloride 101 mmol/L (98-107); Estimated Glomerular Filt Rate 18; Glucose 50 mg/dL (75-110); Phosphorus 7.1 mg/dL (2.5-4.5); Potassium 4.2 mmol/L (3.4-5.0); Sodium 141 mmol/L (137-145)
[2021-03-18] MEDS: DEXTROSE 50% 25 GM/50 ML SYRINGE IV PUSH (05:41)
[2021-03-18] MEDS: HYDROcodone/acetaminophen (*CRX) 5-325 MG TABLET 1 TAB PO ×4 (05:41→21:13)
[2021-03-18 06:19] LABS: Glucose Point of Care 119 (65-105)
[2021-03-18 07:43] LABS: Glucose Point of Care 85 (65-105)
[2021-03-18] MEDS: SERTRALINE HCL 50 MG TABLET 100 MG PO (09:10)
[2021-03-18] MEDS: busPIRone HCL 5 MG TABLET PO ×2 (09:10→20:36)
[2021-03-18] MEDS: FAMOTIDINE 20 MG TABLET PO (09:10)
[2021-03-18] MEDS: VITAMIN B CMPLX/VIT C/FOLIC AC 1 CAPSULE 1 CAP PO (09:11)
[2021-03-18] MEDS: amLODIPine BESYLATE 5 MG TABLET PO (09:11)
[2021-03-18] MEDS: carvediloL 25 MG TABLET 50 MG PO (09:11)
[2021-03-18] MEDS: GABAPENTIN 300 MG CAPSULE PO (09:11)
[2021-03-18] MEDS: TICAGRELOR 90 MG TABLET PO ×2 (09:11→20:37)
[2021-03-18] MEDS: VITAMIN B COMPLEX CAPSULE 1 CAP PO (09:11)
[2021-03-18] MEDS: NICOTINE (*PBKC) 14 MG PATCH 1 PATCH TRANSDERM (09:12)
[2021-03-18] MEDS: ASPIRIN 81 MG ENTERIC TABLET PO (09:12)
[2021-03-18] MEDS: SILVERGEL (ELTA) 45 ML 1 APPLIC TOPICAL (09:12)
[2021-03-18] MEDS: ALBUTEROL SULFATE (*SP) AEROSOL 1 PUFF INHALATION ×3 (09:26→21:12)
--- NOTE | 2021-03-18 09:29 | WPDMODSED ---
Moderate Sedation Note-Pt Data Patient Data Allergies Allergy/AdvReac Type Severity Reaction Status Date / Time scopolamine Allergy Severe Unresponsiv Verified 03/16/21 10:13 e Home Medications Medication Instructions Recorded Confirmed Type furosemide 80 mg PO BID 02/05/20 03/16/21 History aspirin 81 mg PO DAILY 07/02/20 03/16/21 History Dang-Nilsa 1 tablet PO DAILY 07/23/20 03/16/21 History Brilinta 90 mg PO Q12HR 30 Days #60 tablet 09/15/20 03/16/21 Rx insulin lispro 100 unit/mL See Rx Instructions .ROUTE 09/16/20 03/16/21 Rx subcutaneous pen .COMPLEX #45 ml sertraline 100 mg tablet 100 mg PO DAILY #90 tablet 09/22/20 03/16/21 Rx albuterol sulfate 1 puff INHALATION QID 01/11/21 03/16/21 History atorvastatin 80 mg PO HS 01/11/21 03/16/21 History lorazepam 1 mg PO BID PRN 01/11/21 03/16/21 History ropinirole 0.25 mg PO DIRECTED 01/11/21 03/16/21 History amlodipine 5 mg PO DAILY 02/15/21 03/16/21 History sevelamer carbonate 800 mg PO TID 02/15/21 03/16/21 History vitamin B complex [B 1 tablet PO DAILY 02/15/21 03/16/21 History Complex-Vitamin B12] carvedilol 25 mg tablet 25 mg PO HS 03/02/21 03/16/21 History Lantus Solostar U-100 Insulin 10 unit SUBCUT BID #3 ml 03/08/21 03/16/21 Rx nicotine 1 patch TRANSDERMAL QAM #20 ea 03/08/21 03/16/21 Rx buspirone 5 mg PO Q12HR #60 tablet 03/14/21 03/16/21 Rx silver [Silver-Sept] 1 applic TOPICAL DAILY #0 g 03/14/21 03/16/21 Rx gabapentin 300 mg capsule 300 mg PO DAILY #90 cap 03/15/21 03/16/21 Rx carvedilol 50 mg PO DAILY 03/16/21 03/16/21 History famotidine 20 mg tablet 20 mg PO DAILY #90 tablet 03/17/21 Rx Current Medications: Active Medications Acetaminophen (Acetaminophen 325 Mg Tablet) 650 mg PO Q4H PRN PRN Reason: Mild Pain (1-3) or Fever Hydrocodone Bitart/Acetaminophen (Hydrocodone/Acetaminophen (*Crx) 5-325 Mg Tablet) 1 tab PO Q4H PRN PRN Reason: Pain Rated 4-6 Last Admin: 03/18/21 09:20 Dose: 1 tab Documented by: Albuterol (Albuterol Sulfate (*Sp) Aerosol 1 Puff) 1 puff INHALATION QIDRT [facility] Last Admin: 03/18/21 09:26 Dose: 1 puff Documented by: Amlodipine Besylate (Amlodipine Besylate 5 Mg Tablet) 5 mg PO DAILY [facility] Last Admin: 03/18/21 09:11 Dose: 5 mg Documented by: Aspirin (Aspirin 81 Mg Enteric Tablet) 81 mg PO DAILY [facility] Last Admin: 03/18/21 09:12 Dose: 81 mg Documented by: Atorvastatin Calcium (Atorvastatin 40 Mg Tablet) 80 mg PO [facility] Last Admin: 03/17/21 20:45 Dose: 80 mg Documented by: Buspirone HCl (Buspirone Hcl 5 Mg Tablet) 5 mg PO Q12HR [facility] Last Admin: 03/18/21 09:10 Dose: 5 mg Documented by: Carvedilol (Carvedilol 25 Mg Tablet) 50 mg PO DAILY [facility] Last Admin: 03/18/21 09:11 Dose: 50 mg Documented by: Carvedilol (Carvedilol 25 Mg Tablet) 25 mg PO [facility] Last Admin: 03/17/21 20:46 Dose: 25 mg Documented by: Dextrose (Dextrose 50% 25 Gm/50 Ml Syringe) 12.5 gm IV PUSH PRN PRN; Protocol PRN Reason: Hypoglycemia Last Admin: 03/18/21 05:41 Dose: 12.5 gm Documented by: Epoetin Johnnie-epbx (Epoetin Johnnie-Epbx 10,000 Units/Ml Vial) 10,000 units IV PUSH MOWEFR [facility] Last Admin: 03/17/21 12:57 Dose: Not Given Documented by: Famotidine (Famotidine 20 Mg Tablet) 20 mg PO DAILY [facility] Last Admin: 03/18/21 09:10 Dose: 20 mg Documented by: Furosemide (Furosemide Inj 40 Mg/4 Ml Vial) 40 mg IV PUSH BID [facility] Last Admin: 03/18/21 08:49 Dose: Not Given Documented by: Gabapentin (Gabapentin 300 Mg Capsule) 300 mg PO DAILY [facility] Last Admin: 03/18/21 09:11 Dose: 300 mg Documented by: Glucagon (Glucagon For Inj 1 Mg Vial) 1 mg IM PRN PRN; Protocol PRN Reason: Hypoglycemia Glucose (Glucose Oral Gel 15 Gm Of Glucse In 37.5 Gm Tube) 15 gm PO PRN PRN; Protocol PRN Reason: Hypoglycemia Heparin Sodium (Porcine) (Heparin Sodium 5,000 Units/Ml Vial) 5,000 units SUB-Q Q12HR [facility] Last Admin: 03/17/21 20:44 Dose: 5,000 units Documented by: Dextrose (Dextrose 5% 1,000 Ml) 1,000 mls @ 100 mls/hr IVPB PRN PRN; Protocol PRN
--- NOTE | 2021-03-18 12:28 | WPDHPUPDATE1 ---
History and Physical Update Update Date/Time: 03/18/21 10am History and Physical has been reviewed, including an updated exam of the patient. There are NO changes in the patient's condition. Risks, benefits, and alternatives have been discussed and questions answered. Patient agrees to proceed with procedure.
--- NOTE | 2021-03-18 12:29 | WPDCARDPROC ---
Cardiac Cath Procedure Note Date of procedure:: 03/18/21 Performing physician:: Jonathan Gallegos MD date of service 03/18/2021 Indication:: recurrent CHF exacerbation Brief clinical history:: this is 55-year-old patient with past history of LAD stent, hypertension, end-stage renal disease on dialysis, bilateral lower extremity amputations who has been admitted to the hospital with recurrent episodes of CHF exacerbation. Because of the recurrent episodes of CHF he was brought into [facility] to rule out worsening CAD Procedure Procedure performed:: 1-Moderate sedation that started at 11:46 a.m. and ended at 12:23 a.m. total duration 37 minutes using 2mg of Versed and 50 mcg fentanyl. The registered nurse was fay smith. 2-Selective left and right coronary angiogram. 3-Left heart catheterization with measurement of LVEDP and measurement of gradient across aortic valve. 4- LV angiogram. Sedation/Medication given:: Moderate sedation. Access site:: Right common femoral artery. Estimated blood loss:: 10cc Procedure note:: After informed consent patient was brought in to [facility] director with the was draped and prepped in usual manner. Moderate sedation was given and the right wrist was infiltrated using 1% lidocaine. Six Icelandic sheath was obtained using classic Seldinger technique. Selective left coronary angiogram was done using JL3.5 catheter with the tip of the catheter placed in the left main coronary artery. Selective right coronary angiogram was done using JR4 catheter with the tip of the catheter placed to the right coronary artery. After that 5 Icelandic pigtail catheter was advanced across the aortic valve into the left ventricle with measurement of LVEDP and measurement of gradient across aortic valve. LV angiogram was done as well. Findings:: 1- left coronary artery is a large artery that divides into large LAD, large circumflex artery And small ramus. Left main Has minimal irregularities. 2- left anterior descending artery is a large artery that runs and wraps around the apex. has patent stent in the mid segment. Has diffuse minimal irregularities. 3- ramus intermedius is small in size has diffuse 30%. 3- leftcircumflex artery is a large artery And dominant and has minimal irregularities. Large OM1 branch and large left PDA with minimal irregularities. 4- right coronary artery is Small artery and nondominant and has diffuse 30%. 5- LVEDP was 18 mm Hg . there was 10 mm peak to peak gradient across the aortic valve. 6- LV angiogram shows normal LV systolic function ejection fraction 65%. There was some inferior wall hypokinesis. 6- opening arterial pressure was 130/80 and closing pressure was 157/58 Conclusion:: - minimal coronary irregularities. - patent stent in LAD. Assessment and Plan Additional Plan 1- continue aggressive risk factor modification for CAD
--- NOTE | 2021-03-18 13:18 | PCPTNOTE ---
The patient treatment was not able to be completed today due to patient out of room for procedure. Will plan to continue treatment per plan of care.
[2021-03-18 14:00] LABS: Glucose Point of Care 25 (65-105)
[2021-03-18 14:00] LABS: Glucose Point of Care 21 (65-105)
--- NOTE | 2021-03-18 14:14 | SUR.PHASEII ---
RN alerted by patient's that patient appeared diaphoretic. POC BG obtained and resulted 25. Repeat check 21. Dr. Ayala notified and with no further orders given by MD outside those in the hypoglycemia protocol. Patient given 2 apple juices and tolerated them without difficulty. Patient also given 12.5 g dextrose from ampule by Nanda Quick RN. POCT recheck of 113. Patient responsive and resting comfortable.
[2021-03-18 14:15] LABS: Glucose Point of Care 113 (65-105)
[2021-03-18 14:50] LABS: Glucose Point of Care 78 (65-105)
--- NOTE | 2021-03-18 15:55 | PM.IMPN ---
Progress Note: A&P Assessment and Plan (1) Peripheral vascular disease: Code(s): I73.9 - Peripheral vascular disease, unspecified Status: Acute Assessment and Plan: BL amputee with prosthesis and wheelchair (2) Dyspnea: Code(s): R06.00 - Dyspnea, unspecified Status: Acute Assessment and Plan: OXYGEN PRN IV LASIX (3) Acute exacerbation of CHF (congestive heart failure): Qualifiers: Heart failure type: unspecified Qualified Code(s): I50.9 - Heart failure, unspecified Code(s): I50.9 - Heart failure, unspecified Status: Acute Assessment and Plan: CARDIOLOGY CONSULT (4) Amputation above knee: Code(s): S78.119A - Complete traumatic amputation at level between unspecified hip and knee, initial encounter Status: Acute Assessment and Plan: CHRONIC HISTORY (5) Elevated troponin: Code(s): R77.8 - Other specified abnormalities of plasma proteins Status: Acute Assessment and Plan: MONITOR while in hospital sp heart cath showing - minimal coronary irregularities and patent stent in LAD. (6) Diabetes: Code(s): E11.9 - Type 2 diabetes mellitus without complications Status: Acute Assessment and Plan: SSI and accuchecks (7) Hypertension: Qualifiers: Hypertension type: unspecified Qualified Code(s): I10 - Essential (primary) hypertension Code(s): I10 - Essential (primary) hypertension Status: Chronic Assessment and Plan: Continue BP medications (8) Smoking: Code(s): F17.200 - Nicotine dependence, unspecified, uncomplicated Status: Acute Assessment and Plan: NICOTINE PAtches advised o quit smoking (9) IDDM (insulin dependent diabetes mellitus): Status: Chronic Assessment and Plan: Episode of hypoglycemia today in chest pain center probably because of being npo overnite (10) ESRD (end stage renal disease) on dialysis: Code(s): N18.6 - End stage renal disease; Z99.2 - Dependence on renal dialysis Status: Chronic Assessment and Plan: CONSULT NEPHROLOGY continue dialysis as before mon and monday monitor bmp in hospital Subjective Date/time seen: 03/18/21 15:55 Interval history: Pt is known to our service has been here multiple times in past month. Pt has ESRD and CHF, pt was here with flash pulmonary edema. Pt had some speckles found on his echo pt went for heart cath today, pt had hypoglycemic episode after heart cath. Review of Systems Review of Systems: All systems reviewed & are unremarkable except as noted in HPI and below Exam Const: General: other (chronically ill appears comfortable in his wheelchair ) HENMT: Head: normocephalic Eyes: Pupils: Equal, round and reactive pupils present Neck: Neck: supple Resp: Effort & Inspection: other (fine crackles in bases ) Cardio: Jugular venous distension: no JVD Rhythm: regular rhythm Heart sounds: S1 normal heart sound present and S2 normal heart sound present GI: Inspection: normal to inspection Auscultation: normal bowel sounds Skin: General skin exam: normal color and dry skin Neuro: Cranial nerves: Yes CN's II-XII intact bilaterally and Yes Equal, round and reactive pupils present Cognition (Neuro): normal cognition Speech: normal speech Motor exam (neuro): 5/5 motor strength present throughout Extrem: General: other (BL amputee with prosthesis on right leg ) Psych: Appearance: grossly normal Mental Status: mental status grossly normal Objective Data Vital Signs Vital Signs: Vital Signs - 24 hr 03/17/21 16:00 03/17/21 18:00 03/17/21 18:57 Temperature 36.0 C L 36.1 C L Pulse Rate 81 88 79 Respiratory Rate 16 18 Blood Pressure 116/47 L 153/65 H Pulse Oximetry 96 98 03/17/21 20:00 03/17/21 20:46 03/17/21 22:00 Temperature Pulse Rate 86 87 81 Respiratory Rate Blood Pressure Pulse Oximetry
[2021-03-18 16:13] LABS: Glucose Point of Care 80 (65-105)
[2021-03-18] MEDS: FUROSEMIDE INJ 40 MG/4 ML VIAL IV PUSH (16:35)
[2021-03-18] MEDS: SEVELAMER CARBONATE 800 MG TABLET PO (16:35)
[2021-03-18 17:10] LABS: Potassium 5.2 mmol/L (3.4-5.0)
[2021-03-18 17:15] LABS: Anion Gap 8 mmol/L (8-16); Blood Urea Nitrogen 32 mg/dL (9-20); Calcium 9.6 mg/dL (8.4-10.2); Carbon Dioxide 30 mmol/L (22-30); Chloride 100 mmol/L (98-107); Estimated Glomerular Filt Rate 15; Glucose 141 mg/dL (75-110); Sodium 138 mmol/L (137-145)
[2021-03-18 20:24] LABS: Glucose Point of Care 488 (65-105)
[2021-03-18] MEDS: carvediloL 25 MG TABLET PO (20:36)
[2021-03-18] MEDS: ATORVASTATIN 40 MG TABLET 80 MG PO (20:36)
[2021-03-18] MEDS: rOPINIRole HCL 0.25 MG TABLET PO (20:37)
[2021-03-18] MEDS: HEPARIN SODIUM 5,000 UNITS/ML VIAL 5000 UNITS SUB-Q (20:37)
[2021-03-18] MEDS: INSULIN ASPART (*BKC) 100 UNITS/ML SUB-Q (23:03)
[2021-03-18] MEDS: INSULIN GLARGINE (*BKC) 100 UNITS/ML 10 UNITS SUB-Q (23:03)
[2021-03-19] VITALS (23 sets, daily range): BP systolic 92–151; BP diastolic 41–66; PULSE 67–87; RESP 16–18; TEMP 36.1–37; O2SAT 95–100
[2021-03-19] MEDS: HYDROcodone/acetaminophen (*CRX) 5-325 MG TABLET 1 TAB PO ×2 (04:24→15:01)
[2021-03-19 08:12] LABS: Glucose Point of Care 325 (65-105)
[2021-03-19] MEDS: NICOTINE (*PBKC) 14 MG PATCH 1 PATCH TRANSDERM (08:33)
[2021-03-19] MEDS: FAMOTIDINE 20 MG TABLET PO (08:33)
[2021-03-19] MEDS: amLODIPine BESYLATE 5 MG TABLET PO (08:33)
[2021-03-19] MEDS: busPIRone HCL 5 MG TABLET PO (08:34)
[2021-03-19] MEDS: TICAGRELOR 90 MG TABLET PO (08:34)
[2021-03-19] MEDS: SEVELAMER CARBONATE 800 MG TABLET PO ×2 (08:34→15:01)
[2021-03-19] MEDS: SERTRALINE HCL 50 MG TABLET 100 MG PO (08:35)
[2021-03-19] MEDS: GABAPENTIN 300 MG CAPSULE PO (08:35)
[2021-03-19] MEDS: VITAMIN B CMPLX/VIT C/FOLIC AC 1 CAPSULE 1 CAP PO (08:35)
[2021-03-19] MEDS: FUROSEMIDE INJ 40 MG/4 ML VIAL IV PUSH (08:35)
[2021-03-19] MEDS: carvediloL 25 MG TABLET 50 MG PO (08:35)
[2021-03-19] MEDS: VITAMIN B COMPLEX CAPSULE 1 CAP PO (08:35)
[2021-03-19] MEDS: ASPIRIN 81 MG ENTERIC TABLET PO (08:36)
[2021-03-19] MEDS: INSULIN ASPART (*BKC) 100 UNITS/ML SUB-Q (08:37)
[2021-03-19] MEDS: ALBUTEROL SULFATE (*SP) AEROSOL 1 PUFF INHALATION ×2 (08:43→15:06)
[2021-03-19] MEDS: INSULIN GLARGINE (*BKC) 100 UNITS/ML 12 UNITS SUB-Q (08:54)
--- NOTE | 2021-03-19 09:45 | PC.NURSE ---
Pt to dialysis via bed
--- NOTE | 2021-03-19 09:57 | PCPTNOTE ---
The patient treatment was not able to be completed this A.M. due to patient out of room for dialysis. Will plan to continue treatment per plan of care.
[2021-03-19 10:02] LABS: Anion Gap 8 mmol/L (8-16); Blood Urea Nitrogen 47 mg/dL (9-20); Calcium 8.8 mg/dL (8.4-10.2); Carbon Dioxide 33 mmol/L (22-30); Chloride 98 mmol/L (98-107); Estimated Glomerular Filt Rate 10; Glucose 292 mg/dL (75-110); Potassium 5.1 mmol/L (3.4-5.0); Sodium 139 mmol/L (137-145)
--- NOTE | 2021-03-19 10:02 | P.CDI_ITS ---
CDI Query Clarification Request -Acute exacerbation of CHF has been documented Please further specify type of CHF: * Systolic * Diastolic * Both Systolic and Diastolic * Unable to determine
--- NOTE | 2021-03-19 10:02 | WPDCDIQUERY2 ---
CDI Query Clarification Request -Acute exacerbation of CHF has been documented Please further specify type of CHF: Systolic Diastolic Both Systolic and Diastolic Unable to determine
--- NOTE | 2021-03-19 10:56 | PM.PNCARD ---
Progress Note: A&P Additional Plan 55-year-old man with: Extensive coronary and peripheral vascular disease patient has multiple admissions to the hospital with severe shortness of breath and clinical impression of abrupt pulmonary edema. He does not really have any obvious cardiac substrate for this since his LV function has improved and he does not have any coronary lesions at all. One would have to recommend that Nephrology try to reduce his dry weight with dialysis and hopefully that will improve this pattern that we have seen. Chance Landis MD [facility] Subjective Date/time seen: Date of service: 03/19/21 10:56 Interval history: Pt is known to our service has been here multiple times in past month. Pt has ESRD and CHF, pt was here with flash pulmonary edema. Pt had some speckles found on his echo pt went for heart cath today, pt had hypoglycemic episode after heart cath. Patient has extensive vascular disease and bilateral amputations of lower lower extremities and previous anterior infarction and PCI to the proximal LAD. Because of multiple admissions with abrupt shortness of breath and the clinical impression that he has flash pulmonary edema follow-up angiography was done yesterday and there are no coronary lesions identified. Specifically the site of his PCI, the proximal LAD remains widely patent. One would have to conclude therefore that the only way to obviate the admissions would be to lower his dry weight in dialysis and hopefully this will improve this current situation where he is admitted repeatedly every week or 2 with shortness of breath and frequently becoming reintubated. Exam Const: General: comfortable and no acute distress Other: Chronically ill-appearing gentleman, bilateral amputee is very comfortable while he is now being hemodialyzed. HENMT: Mouth: Yes moist mucous membranes Eyes: Sclera: sclerae normal Pupils: Equal, round and reactive pupils present Neck: Neck: supple and no JVD Thyroid: thyroid normal Resp: Effort & Inspection: normal respiratory effort Auscultation: clear to auscultation bilaterally Cardio: Rate: regular rate Rhythm: regular rhythm Other: Soft systolic murmur that does not radiate from the left sternal border GI: Auscultation: normal bowel sounds Skin: General skin exam: normal color Neuro: Cranial nerves: Yes Equal, round and reactive pupils present Cognition (Neuro): normal cognition Extrem: Other: Bilateral amputee Objective Data Vital Signs Vital Signs: Vital Signs - 24 hr 03/18/21 12:55 03/18/21 13:10 03/18/21 13:25 Temperature 36.0 C L Pulse Rate 68 67 66 Respiratory Rate 12 15 12 Blood Pressure 147/43 H 141/42 H 131/33 L Pulse Oximetry 96 96 95 03/18/21 13:40 03/18/21 14:10 03/18/21 14:40 Temperature Pulse Rate 64 60 60 Respiratory Rate 13 12 14 Blood Pressure 119/30 L 103/49 L 114/34 L Pulse Oximetry 95 95 97 03/18/21 15:00 03/18/21 15:15 03/18/21 15:30 Temperature Pulse Rate 61 63 61 Respiratory Rate 14 15 10 L Blood Pressure 121/44 L 138/80 105/62 Pulse Oximetry 100 100 98 03/18/21 16:00 03/18/21 16:30 03/18/21 17:30 Temperature 36.6 C Pulse Rate 63 71 78 Respiratory Rate 14 15 13 Blood Pressure 144/61 H 140/57 L 122/46 L Pulse Oximetry 100 99 98 03/18/21 18:00 03/18/21 18:30 03/18/21 19:30 Temperature 36.1 C L Pulse Rate 78 83 78 Respiratory Rate 14 15 Blood Pressure 121/61 118/50 L Pulse Oximetry 99 97 03/18/21 20:00 03/18/21 20:30 03/18/21 20:36 Temperature 36.1 C L Pulse Rate 85 86 85 Respiratory Rate 18 16 Blood Pressure 129/55 L Pulse Oximetry 100 100 03/18/21 21:41 03/18/21 22:00 03/19/21 00:00 Temperature 36.1 C L Pulse Rate 89 87 Respiratory Rate 18 Blood Pressure 144/54 H Pulse Oximetry 95 100 03/19/21 02:00 03/19/21 04:00 03/19/21 06:00 Temperature 36.4 C L Pulse Rate 80 67 77 Respiratory Rate 16 Blood Pressure 138/56 L Pulse Oximetry 95
--- NOTE | 2021-03-19 12:22 | PM.PNNEP ---
Progress Note: A&P Assessment and Plan (1) ESRD (end stage renal disease) on dialysis: Code(s): N18.6 - End stage renal disease; Z99.2 - Dependence on renal dialysis Status: Chronic Assessment and Plan: Ish has end-stage renal disease. Getting dialysis today which is His normal day. (2) Acute respiratory failure: Code(s): J96.00 - Acute respiratory failure, unspecified whether with hypoxia or hypercapnia Status: Acute Assessment and Plan: The patient had volume overload this is improved. He does some times gain a lot of weight between treatments. His heart is not the greatest. And sometimes his blood pressure is fabián rocket. Probably this is a combination of all 3 causing his recurrent hospital stays. I discussed with him at length drinking less fluid at home. (3) Peripheral vascular disease: Code(s): I73.9 - Peripheral vascular disease, unspecified Status: Acute Assessment and Plan: Patient has a right mysdm-tji-dnkz amputation and has a prosthesis for this. He has a left gvzgh-fhw-oyll amputation and this is still undergoing processes before he can get a prosthesis. (4) Hypertension: Qualifiers: Hypertension type: unspecified Qualified Code(s): I10 - Essential (primary) hypertension Code(s): I10 - Essential (primary) hypertension Status: Chronic Assessment and Plan: His blood pressure is On the soft side today. (5) Erythropoietin deficiency anemia: Code(s): D63.1 - Anemia in chronic kidney disease Status: Acute Assessment and Plan: He is getting Epogen with dialysis (6) Diabetes: Code(s): E11.9 - Type 2 diabetes mellitus without complications Status: Acute Assessment and Plan: On Accu-Cheks and sliding-scale insulin Subjective Date/time seen: 03/19/21 12:23 Interval history: Ish is feeling better. Lying flat in bed on room air breathing normally. He is on dialysis. Tolerating well. He was seen at 11:00 a.m. he is eager for discharge Review of Systems Cardiovascular: Cardiovascular: Reports no additional cardiovascular complaints Respiratory: Respiratory: Reports no additional respiratory complaints Gastrointestinal: Gastrointestinal: Reports no additional gastrointestinal complaints Genitourinary: Genitourinary: Reports no additional male genitourinary complaints Exam Narrative: Exam Narrative: WDWN in NAD skin no rash head ncat lungs clear cor reg no rub abd BS+ nontender and soft ext no edema. right qjleq-xuh-tcvv amputation, left pjbrd-xzc-[id number] amputation. Objective Data Vital Signs Vital Signs: Vital Signs - 24 hr 03/18/21 12:55 03/18/21 13:10 03/18/21 13:25 Temperature 36.0 C L Pulse Rate 68 67 66 Respiratory Rate 12 15 12 Blood Pressure 147/43 H 141/42 H 131/33 L Pulse Oximetry 96 96 95 03/18/21 13:40 03/18/21 14:10 03/18/21 14:40 Temperature Pulse Rate 64 60 60 Respiratory Rate 13 12 14 Blood Pressure 119/30 L 103/49 L 114/34 L Pulse Oximetry 95 95 97 03/18/21 15:00 03/18/21 15:15 03/18/21 15:30 Temperature Pulse Rate 61 63 61 Respiratory Rate 14 15 10 L Blood Pressure 121/44 L 138/80 105/62 Pulse Oximetry 100 100 98 03/18/21 16:00 03/18/21 16:30 03/18/21 17:30 Temperature 36.6 C Pulse Rate 63 71 78 Respiratory Rate 14 15 13 Blood Pressure 144/61 H 140/57 L 122/46 L Pulse Oximetry 100 99 98 03/18/21 18:00 03/18/21 18:30 03/18/21 19:30 Temperature 36.1 C L Pulse Rate 78 83 78 Respiratory Rate 14 15 Blood Pressure 121/61 118/50 L Pulse Oximetry 99 97 03/18/21 20:00 03/18/21 20:30 03/18/21 20:36 Temperature 36.1 C L Pulse Rate 85 86 85 Respiratory Rate 18 16 Blood Pressure 129/55 L Pulse Oximetry 100 100 03/18/21 21:41 03/18/21 22:00 03/19/21 00:00 Temperature 36.1 C L Pulse Rate 89 87 Respiratory Rate 18 Blood Pressure 144/54 H Pulse Oximetry 95 100
--- NOTE | 2021-03-19 14:00 | PCPTNOTE ---
Unable to see for PT due to patient out of reoom for dialysis. PT will continue to follow per plan of care.
--- NOTE | 2021-03-19 14:33 | PC.NURSE ---
Pt returned for dialysis via bed
[2021-03-19 14:41] LABS: Glucose Point of Care 164 (65-105)
--- NOTE | 2021-03-19 16:37 | PM.IMPN ---
Progress Note: A&P Assessment and Plan (1) Peripheral vascular disease: Code(s): I73.9 - Peripheral vascular disease, unspecified Status: Acute Assessment and Plan: BL amputee with prosthesis and wheelchair (2) Dyspnea: Code(s): R06.00 - Dyspnea, unspecified Status: Acute Assessment and Plan: OXYGEN PRN transition to oral lasix and increase his GUEVARA inhibitor watch bp tonite and dC early tomorrow morning. (3) Acute exacerbation of CHF (congestive heart failure): Qualifiers: Heart failure type: unspecified Qualified Code(s): I50.9 - Heart failure, unspecified Code(s): I50.9 - Heart failure, unspecified Status: Acute Assessment and Plan: CARDIOLOGY CONSULT (4) Amputation above knee: Code(s): S78.119A - Complete traumatic amputation at level between unspecified hip and knee, initial encounter Status: Acute Assessment and Plan: CHRONIC HISTORY (5) Elevated troponin: Code(s): R77.8 - Other specified abnormalities of plasma proteins Status: Acute Assessment and Plan: MONITOR while in hospital sp heart cath showing - minimal coronary irregularities and patent stent in LAD. (6) Diabetes: Code(s): E11.9 - Type 2 diabetes mellitus without complications Status: Acute Assessment and Plan: SSI and accuchecks (7) Hypertension: Qualifiers: Hypertension type: unspecified Qualified Code(s): I10 - Essential (primary) hypertension Code(s): I10 - Essential (primary) hypertension Status: Chronic Assessment and Plan: Continue BP medications (8) Smoking: Code(s): F17.200 - Nicotine dependence, unspecified, uncomplicated Status: Acute Assessment and Plan: NICOTINE PAtches advised o quit smoking (9) IDDM (insulin dependent diabetes mellitus): Status: Chronic Assessment and Plan: Accuchecks, SSI (10) ESRD (end stage renal disease) on dialysis: Code(s): N18.6 - End stage renal disease; Z99.2 - Dependence on renal dialysis Status: Chronic Assessment and Plan: CONSULT NEPHROLOGY continue dialysis as before mon and monday monitor bmp in hospital Subjective Date/time seen: 03/19/21 16:37 Interval history: Pt is known to our service has been here multiple times in past month. Pt has ESRD and CHF, pt was here with flash pulmonary edema. Pt had his heart catheterization yesterday and dialysis today. Review of Systems Review of Systems: All systems reviewed & are unremarkable except as noted in HPI and below Exam Const: General: other (chronically ill appears comfortable in his wheelchair ) HENMT: Head: normocephalic Eyes: Pupils: Equal, round and reactive pupils present Neck: Neck: supple Resp: Effort & Inspection: other (fine crackles in bases ) Cardio: Jugular venous distension: no JVD Rhythm: regular rhythm Heart sounds: S1 normal heart sound present and S2 normal heart sound present GI: Inspection: normal to inspection Auscultation: normal bowel sounds Skin: General skin exam: normal color and dry skin Neuro: Cranial nerves: Yes CN's II-XII intact bilaterally and Yes Equal, round and reactive pupils present Cognition (Neuro): normal cognition Speech: normal speech Motor exam (neuro): 5/5 motor strength present throughout Extrem: General: other (BL amputee with prosthesis on right leg ) Psych: Appearance: grossly normal Mental Status: mental status grossly normal Objective Data Vital Signs Vital Signs: Vital Signs - 24 hr 03/18/21 17:30 03/18/21 18:00 03/18/21 18:30 Temperature Pulse Rate 78 78 83 Respiratory Rate 13 14 Blood Pressure 122/46 L 121/61 Pulse Oximetry 98 99 03/18/21 19:30 03/18/21 20:00 03/18/21 20:30 Temperature 36.1 C L 36.1 C L Pulse Rate 78 85 86 Respiratory Rate 15 18 16 Blood Pressure 118/50 L 129/55 L Pulse Oximetry 97 100 100 03/18/21 20
--- NOTE | 2021-03-19 16:42 | PM.DS ---
DS: Admitting Diagnosis Admitting Diagnosis Admitting Diagnosis: SOB DS: Discharge Diagnosis Discharge Diagnosis (1) Peripheral vascular disease: Code(s): I73.9 - Peripheral vascular disease, unspecified Status: Acute Assessment and Plan: BL amputee with prosthesis and wheelchair, pt had recent surgery, pt had madeleine removed near his upper leg prior to dischrage (2) Dyspnea: Code(s): R06.00 - Dyspnea, unspecified Status: Acute Assessment and Plan: Transition to oral lasix and increase his GUEVARA inhibitor, DC today (3) Acute exacerbation of CHF (congestive heart failure): Qualifiers: Heart failure type: unspecified Qualified Code(s): I50.9 - Heart failure, unspecified Code(s): I50.9 - Heart failure, unspecified Status: Acute Assessment and Plan: CARDIOLOGY CONSULT sp heart catheterization in hospital. (4) Amputation above knee: Code(s): S78.119A - Complete traumatic amputation at level between unspecified hip and knee, initial encounter Status: Acute Assessment and Plan: CHRONIC HISTORY- adviced to quit smoking (5) Elevated troponin: Code(s): R77.8 - Other specified abnormalities of plasma proteins Status: Acute Assessment and Plan: MONITOR while in hospital sp heart cath showing - minimal coronary irregularities and patent stent in LAD. (6) Diabetes: Code(s): E11.9 - Type 2 diabetes mellitus without complications Status: Acute Assessment and Plan: continue home lantus and dm mediactions (7) Hypertension: Qualifiers: Hypertension type: unspecified Qualified Code(s): I10 - Essential (primary) hypertension Code(s): I10 - Essential (primary) hypertension Status: Chronic Assessment and Plan: Continue BP medications (8) Smoking: Code(s): F17.200 - Nicotine dependence, unspecified, uncomplicated Status: Acute Assessment and Plan: NICOTINE PAtches advised to quit smoking (9) IDDM (insulin dependent diabetes mellitus): Status: Chronic Assessment and Plan: Encouraged corrected DM diet (10) ESRD (end stage renal disease) on dialysis: Code(s): N18.6 - End stage renal disease; Z99.2 - Dependence on renal dialysis Status: Chronic Assessment and Plan: CONSULT NEPHROLOGY continue dialysis as before mon and monday Pt to have his epogen on the day of dialysis, pt to have a monthly epogen shot DS: Summary Hospital Course Hospital Course: Pt is known to our service has been here multiple times in past month. Pt has ESRD and CHF, pt was here with flash pulmonary edema. Pt had his heart catheterization yesterday and dialysis today. Pt advised to quit smoking, correct his diet. Lisinopril has been started and pt to continue on oral lasix. Compliance to dialysis sessions and medications emphasized. Time Spent with Patient Time attestation: Total time spent providing and/or coordinating discharge services: 40 minutes on day of discharge Exam Const: General: other (chronically ill appears comfortable in his wheelchair ) HENMT: Head: normocephalic Eyes: Pupils: Equal, round and reactive pupils present Neck: Neck: supple Cardio: Jugular venous distension: no JVD Rhythm: regular rhythm Heart sounds: S1 normal heart sound present and S2 normal heart sound present GI: Inspection: normal to inspection Auscultation: normal bowel sounds Skin: General skin exam: normal color and dry skin Neuro: Cranial nerves: Yes CN's II-XII intact bilaterally and Yes Equal, round and reactive pupils present Cognition (Neuro): normal cognition Speech: normal speech Motor exam (neuro): 5/5 motor strength present throughout Extrem: General: other (BL amputee with prosthesis on right leg ) Psych: Appearance: grossly normal Mental Status: mental status grossly normal DS: Data Data Completed and Pending Labs on of
== END 2021-03-19 17:33 | disposition home or self-care (01) | DRG 286 ==
LOC: ANHED 08:25 → ANHIMU 08:44
PROVIDERS: Internal Medicine Cardiovascular Disease; Internal Medicine Nephrology; Admitting Provider Family Medicine; Emergency Provider Emergency Medicine; PCP Emergency Medicine; Visit Provider Family Medicine
PROC: 4A023N7 Measurement of Cardiac Sampling and Pressure, Left Heart, Percutaneous Approach (ICD-10-PCS; CPT 93452; principal; 2021-03-18 11:30)
DX: I13.2 Hypertensive heart and chronic kidney disease with heart failure and with stage 5 chronic kidney disease, or end stage renal disease (principal); N18.6 End stage renal disease; J96.00 Acute respiratory failure, unspecified whether with hypoxia or hypercapnia; I50.9 Heart failure, unspecified; E10.22 Type 1 diabetes mellitus with diabetic chronic kidney disease; E10.51 Type 1 diabetes mellitus with diabetic peripheral angiopathy without gangrene; Z99.2 Dependence on renal dialysis; I25.10 Atherosclerotic heart disease of native coronary artery without angina pectoris; F41.8 Other specified anxiety disorders; D63.1 Anemia in chronic kidney disease; N25.0 Renal osteodystrophy; E10.40 Type 1 diabetes mellitus with diabetic neuropathy, unspecified; E10.319 Type 1 diabetes mellitus with unspecified diabetic retinopathy without macular edema; R77.8 Other specified abnormalities of plasma proteins; E55.9 Vitamin D deficiency, unspecified; N40.0 Benign prostatic hyperplasia without lower urinary tract symptoms; K21.9 Gastro-esophageal reflux disease without esophagitis; K25.9 Gastric ulcer, unspecified as acute or chronic, without hemorrhage or perforation; I27.20 Pulmonary hypertension, unspecified; I35.8 Other nonrheumatic aortic valve disorders; I25.2 Old myocardial infarction; Z79.4 Long term (current) use of insulin; Z79.82 Long term (current) use of aspirin; Z79.899 Other long term (current) drug therapy; Z86.74 Personal history of sudden cardiac arrest; Z87.891 Personal history of nicotine dependence; Z89.511 Acquired absence of right leg below knee; Z89.612 Acquired absence of left leg above knee; Z95.5 Presence of coronary angioplasty implant and graft; Z95.828 Presence of other vascular implants and grafts; Z98.49 Cataract extraction status, unspecified eye
CPT/HCPCS: 36415; 71045; 80048; 80069; 82948; 83880; 84484; 85025; 85027; 85610; 85730; 87040; 93005; 93458; 94002; 94640; 96374; 97161; 97165; 99285; A9270; C1769; C1887; C1894; G0257; G0378; J1644; J1815; J1940; J2250; J2270; J3010; J7030; J7040

== ENCOUNTER 2021-03-27 03:37 | Inpatient (IN) | payer MEDICARE, MEDICAID, SELFPAY ==
[2021-03-27] VITALS (35 sets, daily range): BP systolic 124–184; BP diastolic 57–145; PULSE 75–131; RESP 12–34; TEMP 0–36.6; O2SAT 96–100; BMI 23.6
--- NOTE | ~2021-03-27 | XR_ITS ---
XR chest 1V portable DATE: 03/27/2021 04:11 INDICATION: Shortness of breath TECHNIQUE: Portable AP chest on 03/27/2021 at 0407 hours COMPARISON: 03/17/2021 portable AP chest at 0746 hours FINDINGS: Cardiomegaly. Aortic calcification and mild unfolding. There is pulmonary vascular congestion and redistribution. There is prominence of the minor fissure c onsistent with subpleural edema. There are bilateral Marilee B-lines and prominence of pulmonary inter stitium, consistent with pulmonary interstitial edema. Mild patchy infiltrates are noted in the mid and lower lung zones, consistent with pulmonary edema an d/or pneumonia. Diffuse osteopenia. IMPRESSION: Congestive heart failure with pulmonary interstitial and subpleural edema Mild patchy infiltrates anomaly involving mid and lower lung zones which may be due to pulmonary corby a and/or pneumonia These findings are increased in severity since 03/17/2021 Reviewed, dictated and finalized at location A. IMPRESSION: Congestive heart failure with pulmonary interstitial and subpleural edema Mild patchy infiltrates anomaly involving mid and lower lung zones which may be due to pulmonary edema and/or pneumonia These findings are increased in severity since 03/17/2021
--- NOTE | ~2021-03-27 | XR_ITS ---
XR chest 1V portable DATE: 03/28/2021 07:29 INDICATION: Pulmonary edema TECHNIQUE: Portable AP chest on 03/28/2021 at 0730 hours COMPARISON: 03/27/2021 portable AP chest at 0407 hours FINDINGS: Cardiomegaly. Aortic calcification and mild unfolding. There is pulmonary vascular redistribution suggesting mild pulmonary venous hypertension, but pulmona ry vascular congestion has improved and there is virtual resolution of pulmonary interstitial and sub pleural edema since 03/27/2021. No pleural effusion. No pneumothorax. Diffuse osteopenia. IMPRESSION: Virtually resolved, interstitial and subpleural edema since 03/27/2021 Pulmonary vascular redistribution suggests residual mild pulmonary venous hypertension Reviewed, dictated and finalized at location A. IMPRESSION: Virtually resolved, interstitial and subpleural edema since 03/27/20 21 Pulmonary vascular redistribution suggests residual mild pulmonary venous hyper tension
--- NOTE | 2021-03-27 03:40 | ECG_ITS ---
Measurements Intervals [place] Rate: 131 P: VT: 0 QRS: 69 QRSD: 93 T: 90 QT: 279 QTc: 412 Interpretive Statements SINUS OR ECTOPIC ATRIAL TACHYCARDIA NONSPECIFIC ST & T-WAVE ABNORMALITY- INF/LAT LEADS BASELINE ARTIFACT- II, III, AVR, AVL, AVF, V4-V6 ABNORMAL ECG Electronically Signed On 03-27-2021 7:15:03 CDT by Edmond Elias D.O.
[2021-03-27] MEDS: LABETALOL HCL INJ 100 MG/20 ML VIAL 20 MG IV PUSH (03:46)
[2021-03-27] MEDS: NITROGLYCERIN OINTMENT 1 INCH DOSE TRANSDERM ×4 (03:50→23:01)
--- NOTE | 2021-03-27 03:53 | PC.NURSE ---
Pt arrived to ED in respiratory distress. Pt arrived with bi-pap in place and was diaphoretic, tachypneic with accessory muscle use. Pt placed on BI pap by ED respiratory who is present at bedside for ABG. Pt tolerating well with O2 saturation of 100%. Pt remains diaphoretic, tachypneic and unresponsive to staff. Lab draws completed and sent to lab. presented to bedside and is aware of poc. Medications administered. Call button and personal items within reach. advised to press call button for assistance.
--- NOTE | 2021-03-27 03:59 | PC.NURSE ---
EDMD presented to bedside to speak with . updated on poc and all questions and concerns addressed.
--- NOTE | 2021-03-27 04:00 | PC.NURSE ---
CXR completed at bedside.
[2021-03-27 04:03] LABS: Basophils Absolute Auto 0.1 K/mm3 (0.0-0.1); Basophils Percent Auto 0.6 % (0.2-1.2); Eosinophils Absolute Auto 0.6 K/mm3 (0-0.3); Eosinophils Percent Auto 5.1 % (0-4.4); Hematocrit 29.5 % (42.0-52.0); Hemoglobin 9.2 g/dL (14.0-18.0); Immature Granulocyte Absolute 0.14 K/mm3 (0.00-0.031); Immature Granulocyte Percent A 1.1 % (0-0.5); Lymphocytes Absolute Auto 3.15 K/mm3 (0.9-3.2); Lymphocytes Percent Auto 25.3 % (18.3-44.2); Mean Corpuscular HGB Conc 31.2 g/dl (32-36); Mean Corpuscular Hemoglobin 31.4 pg (26-34); Mean Corpuscular Volume 100.7 fl (80-100); Mean Platelet Volume 9.4 fl (7.4-10.4); Monocytes Absolute Auto 0.8 K/mm3 (0.1-0.6); Monocytes Percent Auto 6.4 % (2.6-8.5); Neutrophils Absolute Auto 7.7 K/mm3 (1.3-6.7); Neutrophils Percent Auto 61.5 % (45.5-73.1); Platelet Count Result 464 k/mm3 (150-375); Red Blood Count 2.93 M/mm3 (4.6-6.20); Red Cell Distribution Width 18.9 % (11.5-14.5); White Blood Count 12.4 K/mm3 (4.5-10.0)
[2021-03-27 04:12] LABS: INR 0.9; Prothrombin Time 12.8 Seconds (11.1-14.7)
[2021-03-27 04:13] LABS: Partial Thromboplastin Time 33.8 SECONDS (22.3-36.8)
[2021-03-27 04:16] LABS: Magnesium 2.2 mg/dL (1.6-2.3)
[2021-03-27 04:23] LABS: Alanine Aminotransferase 25 U/L (4-50); Albumin Level 4.3 g/dL (3.5-5.1); Alkaline Phosphatase 126 U/L (38-126); Anion Gap 14 mmol/L (8-16); Aspartate Amino Transferase 70 U/L (17-59); Bilirubin,Total 0.4 mg/dL (0.2-1.3); Blood Urea Nitrogen 21 mg/dL (9-20); Calcium 8.7 mg/dL (8.4-10.2); Carbon Dioxide 25 mmol/L (22-30); Chloride 97 mmol/L (98-107); Estimated Glomerular Filt Rate 18; Glucose 600 mg/dL (75-110); Potassium 3.8 mmol/L (3.4-5.0); Sodium 136 mmol/L (137-145)
[2021-03-27 04:24] LABS: Alveolar/Arterial O2 Gradient 56.6 mmHg; Base Excess ABG -5.9 mEq/l (+/-2.0); Fractional Inspired Oxygen 85 %; HCO3 ABG 21.1 mEq/l (22.0-26.0); Oxygen Content ABG 15.2 %vol (16.0-22.0); Oxygen Saturation ABG 99.8 % (95.0-100.0); Oxyhemoglobin 98.2 % THb (90.0-100.0); PCO2 ABG 48.5 mmHg (35.0-45.0); PO2 ABG 499.1 mmHg (80.0-100.0); PO2 FiO2 Ratio Arterial Blood 5.87 %
[2021-03-27 04:28] LABS: NT Pro B Type Natriuretic Pept > 35000 pg/mL (5-100); Troponin I 0.026 ng/mL (0.000-0.034)
--- NOTE | 2021-03-27 04:30 | PC.NURSE ---
Pt tolerating Bi-pap well. Breathing is even and unlabored and pt is no longer diaphoretic. Accessory muscle use remains but is improving. Respirations improved from 39 to 26. Pt is more responsive to staff and is answering yes/no questions appropriately. remains at bedside. No questions or concerns at this time. Advised to press call button for assistance.
[2021-03-27 04:35] LABS: Device NON-INVASIVE VENT; Modified Allen's Test Pass; Site Drawn RIGHT RADIAL; pH ABG 7.256 (7.350-7.450)
[2021-03-27 04:36] LABS: Non-Invasive Expiratory Pressure 8 CMH2O; Non-Invasive Inspiratory Pressure 16 CMH2O; Non-Invasive Vent Rate 16 /MIN
[2021-03-27 04:51] LABS: Beta-Hydroxybutyrate/Acetoacetate 0.09 mmol/L (0.02-0.27)
[2021-03-27 04:53] LABS: Lactic Acid Reflex 3.5 mmol/L (0.7-2.1)
--- NOTE | 2021-03-27 05:13 | PC.NURSE ---
Pt continues to tolerate bipap well with stable vitals. Respirations 21 and O2 is 100%. remains at bedside. No questions or concerns voiced at this time.
[2021-03-27 05:46] LABS: Alveolar/Arterial O2 Gradient 155.8 mmHg; Base Excess ABG -0.5 mEq/l (+/-2.0); Device NON-INVASIVE VENT; Fractional Inspired Oxygen 60 %; HCO3 ABG 24.6 mEq/l (22.0-26.0); Modified Allen's Test Pass; Oxygen Saturation ABG 99.5 % (95.0-100.0); Oxyhemoglobin 98.2 % THb (90.0-100.0); PCO2 ABG 42.4 mmHg (35.0-45.0); PO2 ABG 225.4 mmHg (80.0-100.0); PO2 FiO2 Ratio Arterial Blood 3.76 %; Site Drawn RIGHT RADIAL; pH ABG 7.381 (7.350-7.450)
[2021-03-27 05:47] LABS: Non-Invasive Expiratory Pressure 6 CMH2O; Non-Invasive Inspiratory Pressure 12 CMH2O; Non-Invasive Vent Rate 12 /MIN
--- NOTE | 2021-03-27 06:08 | PC.NURSE ---
Pt resting on cart, lights dimmed. remains at bedside. Call button and personal items within reach. advised to press call button for assistance.
--- NOTE | 2021-03-27 06:11 | ED.GENADULT ---
HPI - General Adult General Chief complaint: Shortness of Breath/Dyspnea Stated complaint: SOB Time Seen by Provider: 03/27/21 03:40 History of Present Illness HPI narrative: Patient is a 55-year-old gentleman who presents the emergency department with chief complaint of shortness of breath. Patient is well-known to the emergency department with a history of flash pulmonary edema before in the past and has history of end-stage renal disease on dialysis. The patient completed a run of dialysis on Monday and completed his normal course. Patient was home doing okay and then suddenly started feeling as though he was starting to get short of breath. When EMS arrived the patient was extremely tachypneic and was hypoxic saturating in the mid 80s. Patient was started on CPAP and brought in. Upon arrival to the emergency department the patient was extremely tachypneic and required BiPAP therapy immediately. Patient was started on antihypertensives Nitropaste and the patient's blood pressure has subsequently improved now the patient is doing much better at this time yes Related Data Home Medications Medication Instructions Recorded Confirmed furosemide 80 mg PO BID 02/05/20 03/16/21 aspirin 81 mg PO DAILY 07/02/20 03/16/21 Dang-Nilsa 1 tablet PO DAILY 07/23/20 03/16/21 albuterol sulfate 1 puff INHALATION QID 01/11/21 03/16/21 atorvastatin 80 mg PO HS 01/11/21 03/16/21 lorazepam 1 mg PO BID PRN 01/11/21 03/16/21 ropinirole 0.25 mg PO DIRECTED 01/11/21 03/16/21 amlodipine 5 mg PO DAILY 02/15/21 03/16/21 sevelamer carbonate 800 mg PO TID 02/15/21 03/16/21 vitamin B complex [B 1 tablet PO DAILY 02/15/21 03/16/21 Complex-Vitamin B12] carvedilol 25 mg tablet 25 mg PO HS 03/02/21 03/16/21 carvedilol 50 mg PO DAILY 03/16/21 03/16/21 Allergies Allergy/AdvReac Type Severity Reaction Status Date / Time scopolamine Allergy Severe Unresponsiv Verified 03/16/21 10:13 e Review of Systems Review of Systems: Narrative: A 10 system review of systems was completed on the patient and is negative except for what is stated in the HPI. Nursing and ancillary documentation was reviewed. [facility] Past Medical History Medical History Amputation above knee Anxiety Benign prostatic hyperplasia Bradycardic cardiac arrest (~07/23/20) In the setting of severe hyperkalemia, acute pulmonary edema, and respiratory failure Chronic anemia Congestive heart failure Echocardiogram in August 2020 showed a mildly enlarged left ventricular chamber, severely reduced left ventricular systolic function with an estimated ejection fraction of 25 to 30%, moderately increased LV wall thickness, grade 2 diastolic dysfunction, severe aortic valve sclerosis, mild mitral, tricuspid, and pulmonic valve regurgitation, mild pulmonary hypertension with an estimated arterial pressure 43 mmHg, and areas of hypokinesis including the apex, inferior wall, anterior wall, inferoseptal wall, anterolateral wall, and anteroseptal wall. Coronary artery disease With non STEMI in December 2019, with stent placed to the LAD. Depression with anxiety End-stage renal disease on hemodialysis Erythropoietin deficiency anemia Gastric ulcer On endoscopy per Dr. Pacheco in June 2020. Gastroesophageal reflux disease Hypertension Noncompliance Renal osteodystrophy Seizure Secondary to hypoglycemia. ST elevation myocardial infarction (STEMI) (~06/26/20) Secondary to abrupt stent thrombosis of the LAD. Tobacco dependence Type 1 diabetes mellitus Diagnosed at the age of 10. Complicated by retinopathy, nephropathy, and neuropathy. Hemoglobin A1c was 7.6% in July 2020. Vitamin D deficiency disease Surgical History Surgical History History of endoscopy (~06/27/20) History of femoropopliteal bypass 02/04/21 left common femoral endarterectomy with left femoral to below-kne
[2021-03-27] MEDS: INSULIN HUMAN REGULAR (*BKC) 100 UNITS/ML 10 UNITS IV PUSH (06:59)
[2021-03-27 07:07] LABS: Add Urine Microscopic? YES; Appearance Urine Clear (Clear); Bilirubin Urine Negative (Negative); Blood Urine 2+ (Negative); Color Urine Yellow (Yellow); Glucose Urine UA 3+ mg/dL (Negative); Ketones Urine Negative (Negative); Leukocyte Esterase Ur Negative LEU/UL (Negative); Mucus Urine Rare /lpf; Nitrate Urine Negative (Negative); Protein Urine 3+ mg/dL (Negative); RBC Urine >75 /hpf (0-2); Specific Grav Ur 1.013 (1.001-1.035); Squamous Epithelial Cell Urine Rare /hpf (Few); Urobilinogen Urine Negative mg/dL (<2.0)
--- NOTE | 2021-03-27 07:15 | PC.NURSE ---
Pt resting on cart. updated on poc. All questions and concerns addressed. Pt repositioned in bed for comfort. Call button and personal items within reach. advised to press call button for assistance.
[2021-03-27 07:38] LABS: Reflex Lactic Acid Yes or No Add Lactic
[2021-03-27 08:30] LABS: Glucose Point of Care 302 (65-105)
--- NOTE | 2021-03-27 08:38 | WPDCNINT ---
Assessment and Plan Assessment and plan (1) Acute respiratory failure: Qualifiers: Respiratory failure complication: hypoxia Qualified Code(s): J96.01 - Acute respiratory failure with hypoxia Code(s): J96.00 - Acute respiratory failure, unspecified whether with hypoxia or hypercapnia Status: Acute Assessment and Plan: Patient presented with acute onset of shortness of breath, chest x-ray revealed bilateral likely related to pulmonary edema and/or pneumonia -heart failure, volume overload, end-stage renal disease -patient currently on BiPAP 10/18, 40% FiO2 and tolerating -continue BiPAP for now, discussed with Nephrology, will remove fluid with dialysis today (2) Pulmonary edema: Qualifiers: Chronicity: acute Qualified Code(s): J81.0 - Acute pulmonary edema Code(s): J81.1 - Chronic pulmonary edema Status: Acute Assessment and Plan: As above (3) Hypertensive urgency: Code(s): I16.0 - Hypertensive urgency Status: Acute Assessment and Plan: Patient presented with hypertensive urgency with elevated diastolic blood pressures -patient on nitro paste, labetalol, amlodipine, carvedilol -will also dialyze patient today (4) Diabetes: Qualifiers: Diabetes mellitus type: type 2 Diabetes mellitus [employer] insulin use: with senior care use Diabetes mellitus complication status: with hyperglycemia Qualified Code(s): E11.65 - Type 2 diabetes mellitus with hyperglycemia; Z79.4 - exterminator termite (current) use of insulin Code(s): E11.9 - Type 2 diabetes mellitus without complications Status: Acute Assessment and Plan: Patient with history of diabetes -presented with blood sugars of 600, received insulin in the ER with improvement in blood sugars, not in DKA at this time -continue Lantus and sliding scale insulin -continue Accu-Cheks (5) Acute exacerbation of CHF (congestive heart failure): Qualifiers: Heart failure type: unspecified Qualified Code(s): I50.9 - Heart failure, unspecified Code(s): I50.9 - Heart failure, unspecified Status: Acute Assessment and Plan: CHF exacerbation likely due to hypertensive emergency, patient does have ischemic heart disease -recent echocardiogram on 03/06/2021 showed an EF of 55-60%, severely increased LV thickness, speckled appearance of the myocardial, grade 1 diastolic dysfunction, mode hurting valve sclerosis, mild mitral valve regurg -more pronounced murmur at the left sternal border -continue Coreg (6) CAD (coronary artery disease): Code(s): I25.10 - Atherosclerotic heart disease of [place] coronary artery without angina pectoris Status: Acute Assessment and Plan: -cardiology has been following this patient on his previous visits -patient had a recent cardiac catheterization on 03/18/2021 for recurrent episodes of CHF, minimal coronary irregularities, patent stent in the LAD. EF was 65% the some inferior wall hypokinesis Additional Plan DVT prophylaxis: Heparin Nutrition: Currently NPO -continue BiPAP for, patient be dialyzed today, discussed with Nephrology and Cardiology Code status: Full code Critical care time spent: 44 minutes This dictation may have been done utilizing a voice recognition system. Attempts have been made to correct errors. However, there may be uncorrected grammatical, spelling, and recognition errors present. Due to a high probability of clinically significant, life threatening deterioration, the patient required my highest level of preparedness to intervene emergently and I personally spent this critical care time directly and personally managing the patient. This critical care time included obtaining a history; examining the patient; pulse oximetry; ordering and review of studies; arranging urgent treatment with development of a management plan; evaluation of patient's response to treatment; frequent reassessment; and discus
[2021-03-27] MEDS: LABETALOL HCL INJ 100 MG/20 ML VIAL 10 MG IV PUSH (08:54)
[2021-03-27 09:20] LABS: Lactic Acid 1.5 mmol/L (0.7-2.1)
--- NOTE | 2021-03-27 09:22 | PC.NURSE ---
Patient refuses urinary catheter. Dr. Cortes notified and order cancelled.
--- NOTE | 2021-03-27 09:48 | PM.IMHP ---
H&P: HPI History of Present Illness Date/Time: 03/27/21 09:48 Chief Complaint: dyspnea Narrative: Patient with multiple comorbidities including end-stage renal disease on dialysis who was in his usual state of health. He completed his dialysis on Monday evening however early Monday morning 515 he experienced acute onset shortness of breath pursue this has been a recurrent issue for him. He presented the emergency department where he was found to be in pulmonary edema. He denied noncompliance with medications or diet. However his blood sugar was 600. He denied pain. He denied missing any dialysis appointments. With nitropaste BiPAP oxygen and diuretics his breathing has improved. Review of Systems Review of Systems: All systems reviewed & are unremarkable except as noted in HPI and below PMFSH Past Medical History Medical History Amputation above knee Anxiety Benign prostatic hyperplasia Bradycardic cardiac arrest (~07/23/20) In the setting of severe hyperkalemia, acute pulmonary edema, and respiratory failure Chronic anemia Congestive heart failure Echocardiogram in August 2020 showed a mildly enlarged left ventricular chamber, severely reduced left ventricular systolic function with an estimated ejection fraction of 25 to 30%, moderately increased LV wall thickness, grade 2 diastolic dysfunction, severe aortic valve sclerosis, mild mitral, tricuspid, and pulmonic valve regurgitation, mild pulmonary hypertension with an estimated arterial pressure 43 mmHg, and areas of hypokinesis including the apex, inferior wall, anterior wall, inferoseptal wall, anterolateral wall, and anteroseptal wall. Coronary artery disease With non STEMI in December 2019, with stent placed to the LAD. Depression with anxiety End-stage renal disease on hemodialysis Erythropoietin deficiency anemia Gastric ulcer On endoscopy per Dr. Pacheco in June 2020. Gastroesophageal reflux disease Hypertension Noncompliance Renal osteodystrophy Seizure Secondary to hypoglycemia. ST elevation myocardial infarction (STEMI) (~06/26/20) Secondary to abrupt stent thrombosis of the LAD. Tobacco dependence Type 1 diabetes mellitus Diagnosed at the age of 10. Complicated by retinopathy, nephropathy, and neuropathy. Hemoglobin A1c was 7.6% in July 2020. Vitamin D deficiency disease Surgical History Surgical History History of endoscopy (~06/27/20) History of femoropopliteal bypass 02/04/21 left common femoral endarterectomy with left femoral to below-knee popliteal artery bypass History of heart artery stent Stent in the LAD in December 2019. Patient had abrupt stent thrombosis of the previously placed stent to the LAD on June 26, 2020 left coronary with extraction thrombectomy and stenting distal to the original stent with upsizing of the original stent. History of spinal surgery Neurostimulator in place. History of transmetatarsal amputation of left foot 02/04/21 at [facility]. Status post above-knee amputation of left lower extremity February 2021 at [facility] Status post below knee amputation of right lower extremity (~12/02/19) Performed [facility]. Status post cataract extraction Status post creation of arteriovenous fistula Left upper extremity. Status post hemorrhoidectomy Family History Family History Father Hypertension Sibling Multiple myeloma Hypertension Mother Acute myelogenous leukemia Heart disease Social History Social History (Updated 03/27/21 @ 09:58 by Wilbur Guerrero MD) Social History: Mr. Corley lives at home in [place] with his and daughter. 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 He designates his , Rosana, as his surrogate decision maker and he wishes to be a full code. Tobacco 1ppd x
--- NOTE | 2021-03-27 12:52 | PM.CNNEP ---
Assessment and Plan Assessment and plan (1) End stage renal disease: Code(s): N18.6 - End stage renal disease Status: Chronic Assessment and Plan: HD normally on Mon/Mon/Monday had full treatment yesterday at his outpatient HD unit stable electrolytes and clearance; however, fluid is the issue (see #2) (2) Pulmonary edema: Qualifiers: Chronicity: acute Qualified Code(s): J81.0 - Acute pulmonary edema Code(s): J81.1 - Chronic pulmonary edema Status: Acute Assessment and Plan: likely secondary to #3 but compliance issues are also a factor plan dry ultrafiltration (DUF) session today to optimize volume status follow respiratory status (3) Hypertensive urgency: Code(s): I16.0 - Hypertensive urgency Status: Acute Assessment and Plan: as noted by BP readings since admission fluid removal with DUF should help resume home BP medications follow trend of hemodynamics (4) Anemia: Code(s): D64.9 - Anemia, unspecified Status: Chronic Assessment and Plan: due to ESRD Epogen with HD follow trend of H/H (5) Diabetes: Qualifiers: Diabetes mellitus complication detail: with other circulatory complications Diabetes mellitus complication status: with circulatory complication Diabetes mellitus type: type 1 Qualified Code(s): E10.59 - Type 1 diabetes mellitus with other circulatory complications Code(s): E11.9 - Type 2 diabetes mellitus without complications Status: Chronic Assessment and Plan: poor control at baseline numerous complications from this as noted by history follow accuchecks glycemic control Will continue to follow. History of Present Illness Reason for Consult Consult date: 03/27/21 Reason for consult: end stage renal disease Chief Complaint Chief complaint: pulmonary edema/hypertensive urgency History of Present Illness Narrative: The patient is a 55-year-old Caucausian male with an extensive medical history as outlined below who presented to [facility] emergency room with complaints of shortness of breath. The patient has a history of multiple hospitalizations for acute respiratory failure secondary to pulmonary edema due to hypertensive urgency. He apparently had his normal dialysis treatment yesterday with approximately 3 L of fluid removal and tolerated the procedure reasonably well. However later in the evening yesterday, he seemed the suddenly feel more short of breath. The shortness of breath continued to progress until eventually EMS was called for further evaluation. He apparently was quite tachypneic and tachycardic and clearly in mild respiratory distress. He was subsequent transferred to [facility] Emergency room for further evaluation. Workup and evaluation emergency room demonstrated the patient to be somewhat hypertensive with a systolic BP in the 170s, BNP greater than 35,000, and EKG did not demonstrate any significant changes from previous readings. He was clearly in respiratory distress and nitro paste was applied and he was initiated on BiPAP therapy. His chest x-ray demonstrated evidence of pulmonary edema/vascular congestion. Given his complex medical history as noted as well as his recent hospitalizations for issues similar to this presentation, he was admitted to the hospital for further evaluation and therapy. Renal consultation was requested due to his end-stage renal disease. The patient normally dialyzes on a Monday, Monday, Monday schedule under the care of Dr. Luke Huynh at [facility]. As mentioned above, his last dialysis treatment was on 03/26/2021 where he had approximately 3 L of fluid removal with relative stability in his hemodynamics and respiratory status. As noted, he does have numerous hospitalizations for flash pulmonary edema/hypertensive urgency necessitating intubation and mechanical ventilation with t
[2021-03-27 12:55] LABS: Glucose Point of Care 204 (65-105)
[2021-03-27] MEDS: INSULIN ASPART (*BKC) 100 UNITS/ML SUB-Q (16:47)
[2021-03-27 16:48] LABS: Glucose Point of Care 291 (65-105)
[2021-03-27] MEDS: SEVELAMER CARBONATE 800 MG TABLET PO (16:48)
[2021-03-27] MEDS: HEPARIN SODIUM 5,000 UNITS/ML VIAL 5000 UNITS SUB-Q ×2 (16:48→19:54)
--- NOTE | 2021-03-27 17:26 | PM.CNCAR ---
Assessment and Plan Assessment and plan (1) Pulmonary edema: Qualifiers: Chronicity: acute Qualified Code(s): J81.0 - Acute pulmonary edema Code(s): J81.1 - Chronic pulmonary edema Status: Acute Assessment and Plan: Patient presents with yet another episode of acute pulmonary edema. Interestingly his blood pressure was running in the 90s on discharge 03/19/2021 and now is high again. There is some degree of noncompliance with medications. Suggestions: Aim for optimal blood pressure control, 120/70. Add hydralazine 25 mg BID. Patient and his should check his blood pressure b.i.d. P.r.n. nitroglycerin when he feels congested or short of breath P.r.n. hydralazine when his blood pressure is getting elevated Ask Dr. Huynh to lower his dry rate further Check serum catecholamines to rule out pheochromocytoma (2) Acute exacerbation of CHF (congestive heart failure): Qualifiers: Heart failure type: unspecified Qualified Code(s): I50.9 - Heart failure, unspecified Code(s): I50.9 - Heart failure, unspecified Status: Acute (3) Hypertensive urgency: Code(s): I16.0 - Hypertensive urgency Status: Acute (4) Noncompliance: Code(s): Z91.19 - Patient's noncompliance with other medical treatment and regimen Status: Acute (5) End-stage renal disease on hemodialysis: Code(s): N18.6 - End stage renal disease; Z99.2 - Dependence on renal dialysis Status: Acute (6) CAD (coronary artery disease): Code(s): I25.10 - Atherosclerotic heart disease of [place] coronary artery without angina pectoris Status: Acute Assessment and Plan: Stable CAD, Left anterior descending stent patent by catheterization earlier this month. History of Present Illness History of Present Illness Consult date/time: 03/27/21 17:26 Reason For Visit: pulmonary edema/hypertensive urgency Narrative: Mr. Ish Corley is a 55-year-old white male on dialysis with hypertension, CAD and bilateral amputations He has had r several admissions this year for acute pulmonary edema. He has required intubation on a couple of them. He was admitted again today and we have been asked to see him at the request of the hospitalist for advice and opinion regarding his acute pulmonary edema and intermittent severe hypertension. Mr. Corley had his dialysis treatment on Monday uneventfully but last night had an inkling he was having problems because he was rattling and getting a little short of breath. This got worse through the night awoke this morning around 515 with severe shortness of breath, rattling and profuse diaphoresis. On arrival in the emergency room his blood pressure was 162/145, heart rate 131, and he was hypoxic. His blood sugar was 600. He was started on BiPAP and admitted to the ICU. The patient has a history of CAD and he had a repeat catheterization on his most recent admission earlier this month which showed a patent stent in the Left anterior descending. EF 65%, inferior wall hypokinesis. He misses his evening pills once in a while. He does not check his blood pressure at home but on dialysis it was running ?good? which the patient says is about 140/70. He thinks that his dry weight should be last since he had a recent amputation and the dialysis nurses, he believes, have not subtracted that weight from his dry weight. Review of Systems Constitutional: Constitutional: Reports no additional constitutional complaints Eyes: Eyes: Reports no additional eye complaints ENT: Reports Normal hearing present Cardiovascular: Cardiovascular: Denies chest pain, Reports diaphoresis, Denies pedal edema, Denies leg edema, Denies lightheadedness and Denies palpitations Respiratory: Respiratory: Reports chest congestion, Reports dyspnea and Reports dyspnea on exertion Gastrointestinal: Gastrointestinal: Denies abdominal pain Genitourinary: Genitourinary: Denies hematuria Musculoske
[2021-03-27] MEDS: NICOTINE (*PBKC) 21 MG PATCH 1 PATCH TRANSDERM (17:27)
[2021-03-27 17:53] LABS: Hepatitis B Surface Antigen Negative (Negative)
[2021-03-27 18:15] LABS: Hepatitis B Surface Anti Res Indeterminate
[2021-03-27] MEDS: carvediloL 25 MG TABLET PO (19:52)
[2021-03-27] MEDS: ATORVASTATIN 40 MG TABLET 80 MG PO (19:52)
[2021-03-27] MEDS: amLODIPine BESYLATE 5 MG TABLET PO (19:53)
[2021-03-27] MEDS: INSULIN GLARGINE (*BKC) 100 UNITS/ML 10 UNITS SUB-Q (19:54)
[2021-03-27] MEDS: rOPINIRole HCL 0.25 MG TABLET PO (19:55)
[2021-03-27 20:06] LABS: Glucose Point of Care 253 (65-105)
[2021-03-27] MEDS: LORazepam (*CRX) 1 MG TABLET PO (23:01)
[2021-03-27 23:12] LABS: Glucose Point of Care 191 (65-105)
[2021-03-28] VITALS (7 sets, daily range): BP systolic 112–143; BP diastolic 53–75; PULSE 83–95; RESP 20–26; TEMP 36.1–36.2; O2SAT 96–100
[2021-03-28] MEDS: MORPHINE SULFATE (*CRX) 2 MG/ML INJ IV PUSH ×3 (00:52→09:02)
[2021-03-28] MEDS: HEPARIN SODIUM 5,000 UNITS/ML VIAL 5000 UNITS SUB-Q (04:59)
[2021-03-28] MEDS: NITROGLYCERIN OINTMENT 1 INCH DOSE TRANSDERM (05:00)
[2021-03-28 07:46] LABS: Glucose Point of Care 163 (65-105)
--- NOTE | 2021-03-28 07:55 | WPDINTPN ---
Progress Note: A&P Assessment and Plan (1) Acute respiratory failure: Qualifiers: Respiratory failure complication: hypoxia Qualified Code(s): J96.01 - Acute respiratory failure with hypoxia Code(s): J96.00 - Acute respiratory failure, unspecified whether with hypoxia or hypercapnia Status: Acute Assessment and Plan: Patient presented with acute onset of shortness of breath, chest x-ray revealed bilateral likely related to pulmonary edema and/or pneumonia -heart failure, volume overload, end-stage renal disease -patient was on BiPAP on admission, did well after dialysis and currently on room air with good O2 sats. (2) Pulmonary edema: Qualifiers: Chronicity: acute Qualified Code(s): J81.0 - Acute pulmonary edema Code(s): J81.1 - Chronic pulmonary edema Status: Acute Assessment and Plan: Manage hypertension and CHF (3) Hypertensive urgency: Code(s): I16.0 - Hypertensive urgency Status: Acute Assessment and Plan: Patient presented with hypertensive urgency with elevated diastolic blood pressures -patient on nitro paste, labetalol, amlodipine, carvedilol -received dialysis on 03/27/2021 with improvement in blood pressures (4) Diabetes: Qualifiers: Diabetes mellitus type: type 2 Diabetes mellitus [facility] insulin use: with [facility] use Diabetes mellitus complication status: with hyperglycemia Qualified Code(s): E11.65 - Type 2 diabetes mellitus with hyperglycemia; Z79.4 - manager intermediate (current) use of insulin Code(s): E11.9 - Type 2 diabetes mellitus without complications Status: Acute Assessment and Plan: Patient with history of diabetes -presented with blood sugars of 600, received insulin in the ER with improvement in blood sugars, not in DKA at this time -continue Lantus and sliding scale insulin -continue Accu-Cheks (5) Acute exacerbation of CHF (congestive heart failure): Qualifiers: Heart failure type: unspecified Qualified Code(s): I50.9 - Heart failure, unspecified Code(s): I50.9 - Heart failure, unspecified Status: Acute Assessment and Plan: CHF exacerbation likely due to hypertensive emergency, volume overload due to end-stage renal disease, patient does have ischemic heart disease -recent echocardiogram on 03/06/2021 showed an EF of 55-60%, severely increased LV thickness, speckled appearance of the myocardial, grade 1 diastolic dysfunction, mode hurting valve sclerosis, mild mitral valve regurg -more pronounced murmur at the left sternal border -continue Coreg (6) CAD (coronary artery disease): Code(s): I25.10 - Atherosclerotic heart disease of [place] coronary artery without angina pectoris Status: Acute Assessment and Plan: -cardiology has been following this patient on his previous visits -patient had a recent cardiac catheterization on 03/18/2021 for recurrent episodes of CHF, minimal coronary irregularities, patent stent in the LAD. EF was 65% the some inferior wall hypokinesis Additional Plan DVT prophylaxis: Heparin Nutrition: Tolerating diabetic and renal diet Code status: Full code Critical care time spent: 32 minutes This dictation may have been done utilizing a voice recognition system. Attempts have been made to correct errors. However, there may be uncorrected grammatical, spelling, and recognition errors present. Due to a high probability of clinically significant, life threatening deterioration, the patient required my highest level of preparedness to intervene emergently and I personally spent this critical care time directly and personally managing the patient. This critical care time included obtaining a history; examining the patient; pulse oximetry; ordering and review of studies; arranging urgent treatment with development of a management plan; evaluation of patient's response to treatment; frequent reassessment; and discussions w
[2021-03-28 08:05] LABS: Potassium 4.1 mmol/L (3.4-5.0)
[2021-03-28 08:09] LABS: Basophils Absolute Auto 0.1 K/mm3 (0.0-0.1); Basophils Percent Auto 0.7 % (0.2-1.2); Eosinophils Absolute Auto 0.5 K/mm3 (0-0.3); Eosinophils Percent Auto 4.9 % (0-4.4); Hemoglobin 8.2 g/dL (14.0-18.0); Immature Granulocyte Absolute 0.09 K/mm3 (0.00-0.031); Lymphocytes Absolute Auto 2.75 K/mm3 (0.9-3.2); Lymphocytes Percent Auto 29.2 % (18.3-44.2); Mean Corpuscular HGB Conc 31.5 g/dl (32-36); Mean Corpuscular Hemoglobin 30.9 pg (26-34); Mean Corpuscular Volume 98.1 fl (80-100); Mean Platelet Volume 9.3 fl (7.4-10.4); Monocytes Absolute Auto 0.7 K/mm3 (0.1-0.6); Monocytes Percent Auto 7.5 % (2.6-8.5); Neutrophils Absolute Auto 5.3 K/mm3 (1.3-6.7); Neutrophils Percent Auto 56.7 % (45.5-73.1); Platelet Count Result 329 k/mm3 (150-375); Red Blood Count 2.65 M/mm3 (4.6-6.20); Red Cell Distribution Width 19.1 % (11.5-14.5); White Blood Count 9.4 K/mm3 (4.5-10.0)
[2021-03-28 08:33] LABS: Anion Gap 11 mmol/L (8-16); Blood Urea Nitrogen 49 mg/dL (9-20); Carbon Dioxide 26 mmol/L (22-30); Chloride 98 mmol/L (98-107); Estimated CRCL calculation 9 ml/min; Estimated Glomerular Filt Rate 10; Glucose 171 mg/dL (75-110); Magnesium 2.3 mg/dL (1.6-2.3); Phosphorus 8.2 mg/dL (2.5-4.5); Sodium 135 mmol/L (137-145)
[2021-03-28] MEDS: GABAPENTIN 300 MG CAPSULE PO (08:51)
[2021-03-28] MEDS: FAMOTIDINE 20 MG TABLET PO (08:51)
[2021-03-28] MEDS: hydrALAZINE HCL 25 MG TABLET PO (08:52)
[2021-03-28] MEDS: carvediloL 25 MG TABLET 50 MG PO (08:53)
[2021-03-28] MEDS: SERTRALINE HCL 50 MG TABLET 100 MG PO (08:54)
[2021-03-28] MEDS: VITAMIN B CMPLX/VIT C/FOLIC AC 1 CAPSULE 1 CAP PO (08:54)
[2021-03-28] MEDS: SEVELAMER CARBONATE 800 MG TABLET PO (08:54)
[2021-03-28] MEDS: INSULIN GLARGINE (*BKC) 100 UNITS/ML 10 UNITS SUB-Q (08:55)
--- NOTE | 2021-03-28 09:04 | PM.PNCARD ---
Progress Note: A&P Assessment and Plan (1) Pulmonary edema: Qualifiers: Chronicity: acute Qualified Code(s): J81.0 - Acute pulmonary edema Code(s): J81.1 - Chronic pulmonary edema Status: Acute Assessment and Plan: Patient presents with yet another episode of acute pulmonary edema. There is some degree of noncompliance with medications. States he is very compliant with his 32 cc per day fluid restriction. Suggestions: Aim for optimal blood pressure control, 120/70. Added hydralazine 25 mg BID. Patient and his should check his blood pressure b.i.d. P.r.n. nitroglycerin when he feels congested or short of breath. Needs a new prescription P.r.n. hydralazine when his blood pressure is getting elevated Ask Dr. Huynh to lower his dry rate further Check serum catecholamines to rule out pheochromocytoma. (unable to order it through EMR; talked to chemistry department to will order it for me and sent to a reference lab.) Patient is still not completely euvolemic. If he does go home today I advised him to cut back on his fluid restriction significantly today until he can get dialysis tomorrow. (2) Acute exacerbation of CHF (congestive heart failure): Qualifiers: Heart failure type: unspecified Qualified Code(s): I50.9 - Heart failure, unspecified Code(s): I50.9 - Heart failure, unspecified Status: Acute (3) Hypertensive urgency: Code(s): I16.0 - Hypertensive urgency Status: Acute Assessment and Plan: Blood pressure better, not at goal, just started on hydralazine. (4) Noncompliance: Code(s): Z91.19 - Patient's noncompliance with other medical treatment and regimen Status: Acute Assessment and Plan: Encourage compliance with medications and fluid restriction (5) End-stage renal disease on hemodialysis: Code(s): N18.6 - End stage renal disease; Z99.2 - Dependence on renal dialysis Status: Acute (6) CAD (coronary artery disease): Code(s): I25.10 - Atherosclerotic heart disease of [place] coronary artery without angina pectoris Status: Acute Assessment and Plan: Stable CAD, Left anterior descending stent patent by catheterization earlier this month. Subjective Date/time seen: 03/28/21 09:04 Interval history: FU for HTN and pulmonary edema. Mr. Ish Corley is a 55-year-old white male on dialysis with hypertension, CAD and bilateral amputations He has had several admissions this year for acute pulmonary edema. He has required intubation on a couple of them. He was admitted again 03/27/2021 with flashpulmonary edema and severe HTN. Improved with BP meds, BiPAP and an ultrafiltration treatment 03/27/2021. Date of service 03/28/2021: Did well overnight. SBP ranging fr 112-143 taking amlod, carvedilol, hydralazine. Ultrafiltration removed 2500 cc yesterday. CXR shows improvement but not resolution of CHF. Review of Systems Constitutional: Constitutional: Reports difficulty sleeping (Chronic insomnia) ENT: Reports system reviewed and no additional complaints, except as documented Cardiovascular: Cardiovascular: Denies chest pain, Denies lightheadedness and Denies palpitations Respiratory: Respiratory: Denies cough, Denies dyspnea and Denies dyspnea on exertion Comments: No PND or orthopnea Gastrointestinal: Gastrointestinal: Denies abdominal pain Musculoskeletal: Musculoskeletal: Reports no additional musculoskeletal complaints Integumentary/Breasts: Skin/Breast: Reports system reviewed and no additional complaints, except as docu Neurologic: Reports system reviewed and no additional complaints, except as documented Exam Const: General: comfortable and no acute distress HENMT: Mouth: Yes moist mucous membranes Eyes: EOM: EOMs intact bilaterally Neck: Neck: supple Resp: Auscultation: rales (Still has rales in his bases) Cardio: Rate: regular rate Rhythm: regular rhythm Heart sounds: Murmur
--- NOTE | 2021-03-28 10:01 | PM.DS ---
DS: Admitting Diagnosis Admitting Diagnosis Admitting Diagnosis: ACUTE PULMONARY EDEMA DS: Discharge Diagnosis Discharge Diagnosis (1) Pulmonary edema: Qualifiers: Chronicity: acute Qualified Code(s): J81.0 - Acute pulmonary edema Code(s): J81.1 - Chronic pulmonary edema Status: Acute Assessment and Plan: Likely due to medication and dietary noncompliance Responded to Bipap, oxygen, diuresis, DUF D/w patient measures to prevent (2) Hypertensive urgency: Code(s): I16.0 - Hypertensive urgency Status: Acute Assessment and Plan: Responded to Nitropaste, labetalol, diuresis, DUF (3) Acute respiratory failure: Qualifiers: Respiratory failure complication: hypoxia Qualified Code(s): J96.01 - Acute respiratory failure with hypoxia Code(s): J96.00 - Acute respiratory failure, unspecified whether with hypoxia or hypercapnia Status: Acute Assessment and Plan: Bipap, oxygen now discontinued (4) Diabetes: Qualifiers: Diabetes mellitus type: type 2 Diabetes mellitus prison insulin use: with prison use Diabetes mellitus complication status: with hyperglycemia Qualified Code(s): E11.65 - Type 2 diabetes mellitus with hyperglycemia; Z79.4 - intermediate card tender (current) use of insulin Code(s): E11.9 - Type 2 diabetes mellitus without complications Status: Acute Assessment and Plan: Basal and SSI while hospitalized (5) Peripheral vascular disease: Code(s): I73.9 - Peripheral vascular disease, unspecified Status: Acute (6) Acute exacerbation of CHF (congestive heart failure): Qualifiers: Heart failure type: unspecified Qualified Code(s): I50.9 - Heart failure, unspecified Code(s): I50.9 - Heart failure, unspecified Status: Acute Assessment and Plan: Responsded to diuresis, DUF Echo 03/03: speckled myocardium, aortic sclerosis, mild mitral regurgitation, mild pulmonic & tricuspid insufficiency, EF 55-60% (7) Amputation above knee: Code(s): S78.119A - Complete traumatic amputation at level between unspecified hip and knee, initial encounter Status: Acute (8) Erythropoietin deficiency anemia: Code(s): D63.1 - Anemia in chronic kidney disease Status: Acute (9) Coronary artery disease: Qualifiers: Coronary Disease-Associated Artery/Lesion type: [place] artery [place] vs. transplanted heart: [place] heart Associated angina: without angina Qualified Code(s): I25.10 - Atherosclerotic heart disease of [place] coronary artery without angina pectoris Code(s): I25.10 - Atherosclerotic heart disease of [place] coronary artery without angina pectoris Status: Acute (10) ESRD (end stage renal disease): Code(s): N18.6 - End stage renal disease Status: Chronic Assessment and Plan: F/u for MWF HD D/w pt maintaining lower dry weight DS: Summary Hospital Course Reason for hospitalization: Shortness of breath Hospital Course: Patient was known end-stage renal disease on Monday dialysis has had recurrent episodes of flash pulmonary edema. He was noticing shortness of breath that worsened the night prior to admission. He presented with pulmonary edema and acute respiratory failure with hypoxia. Responded well to labetalol night face diuresis and dry ultrafiltration. By the morning of discharge she was up and oriented and tolerating diet. Blood pressure was controlled as were his sugars. Time spent discussing smoking cessation with patient: 3 to 10 minutes Status at Discharge Functional status at discharge: wheelchair bound Overall status at discharge: patient is back to baseline Time Spent with Patient Time attestation: Total time spent providing and/or coordinating discharge services: Time spent: Greater than 30 minutes Exam Narrative: Exam Narrative: HEENT: PERRL, sclerae nonicteric, pharyngeal muc
[2021-03-28 13:22] LABS: Glucose Point of Care 195 (65-105)
== END 2021-03-28 12:15 | disposition home or self-care (01) | DRG 291 ==
LOC: ANHED 06:30 → ANHICU 08:42
PROVIDERS: Internal Medicine; Internal Medicine Nephrology; Admitting Provider Internal Medicine; Emergency Provider Emergency Medicine; PCP Emergency Medicine; Visit Provider Internal Medicine
DX: I13.2 Hypertensive heart and chronic kidney disease with heart failure and with stage 5 chronic kidney disease, or end stage renal disease (principal); J96.01 Acute respiratory failure with hypoxia; N18.6 End stage renal disease; I50.1 Left ventricular failure, unspecified; Z79.4 Long term (current) use of insulin; I25.10 Atherosclerotic heart disease of native coronary artery without angina pectoris; E10.65 Type 1 diabetes mellitus with hyperglycemia; E10.22 Type 1 diabetes mellitus with diabetic chronic kidney disease; E10.40 Type 1 diabetes mellitus with diabetic neuropathy, unspecified; E10.319 Type 1 diabetes mellitus with unspecified diabetic retinopathy without macular edema; D63.1 Anemia in chronic kidney disease; F12.90 Cannabis use, unspecified, uncomplicated; Z89.511 Acquired absence of right leg below knee; Z89.612 Acquired absence of left leg above knee
CPT/HCPCS: 36415; 36600; 71045; 80048; 80053; 81001; 82010; 82805; 82948; 83605; 83735; 83880; 84100; 84484; 85025; 85610; 85730; 86706; 87040; 87077; 87186; 87340; 93005; 96374; 99285; A9270; G0257; J1644; J1815; J2270; J7030

== ENCOUNTER 2021-04-05 09:51 | Observation (INO) | payer OTHER, MEDICARE, MEDICAID, SELFPAY ==
[2021-04-05] VITALS (30 sets, daily range): BP systolic 129–198; BP diastolic 51–95; PULSE 76–110; RESP 16–27; TEMP 36.7–38; O2SAT 93–100; BMI 16.9
--- NOTE | ~2021-04-05 | XR_ITS ---
EXAMINATION: XR chest 1V portable DATE: 04/05/2021 10:07 INDICATION: Dyspnea. TECHNIQUE: A single frontal view of the chest was obtained. COMPARISON: Chest single view 03/28/2021, chest CT 03/11/2021 FINDINGS: There is a diffuse interstitial pattern, consistent with mild pulmonary edema. No pleural e ffusion or pneumothorax. The heart size is normal. IMPRESSION: 1. Mild pulmonary edema. Reviewed, dictated and finalized at location B. IMPRESSION: 1. Mild pulmonary edema.
--- NOTE | 2021-04-05 10:00 | ECG_ITS ---
Measurements Intervals [place] Rate: 90 P: OK: 0 QRS: 69 QRSD: 88 T: 91 QT: 393 QTc: 481 Interpretive Statements SINUS RHYTHM NONSPECIFIC ST & T-WAVE ABNORMALITY- INF/LAT LEADS BASELINE ARTIFACT- V3-V6 BORDERLINE ECG Electronically Signed On 04-05-2021 10:40:22 CDT by Edmond Elias D.O.
[2021-04-05] MEDS: NITROGLYCERIN OINTMENT 1 INCH DOSE 0.5 INCH TRANSDERM (10:05)
[2021-04-05 10:08] LABS: Basophils Percent Auto 0.3 % (0.2-1.2); Eosinophils Absolute Auto 0.6 K/mm3 (0-0.3); Eosinophils Percent Auto 5.3 % (0-4.4); Hemoglobin 7.7 g/dL (14.0-18.0); Immature Granulocyte Absolute 0.05 K/mm3 (0.00-0.031); Immature Granulocyte Percent A 0.4 % (0-0.5); Lymphocytes Absolute Auto 1.49 K/mm3 (0.9-3.2); Lymphocytes Percent Auto 12.5 % (18.3-44.2); Mean Corpuscular HGB Conc 32.1 g/dl (32-36); Mean Corpuscular Hemoglobin 31.2 pg (26-34); Mean Corpuscular Volume 97.2 fl (80-100); Mean Platelet Volume 9.5 fl (7.4-10.4); Monocytes Absolute Auto 0.9 K/mm3 (0.1-0.6); Monocytes Percent Auto 7.4 % (2.6-8.5); Neutrophils Absolute Auto 8.8 K/mm3 (1.3-6.7); Neutrophils Percent Auto 74.1 % (45.5-73.1); Platelet Count Result 422 k/mm3 (150-375); Red Blood Count 2.47 M/mm3 (4.6-6.20); Red Cell Distribution Width 18.1 % (11.5-14.5); White Blood Count 11.9 K/mm3 (4.5-10.0)
[2021-04-05 10:18] LABS: INR 0.9; Prothrombin Time 13.1 Seconds (11.1-14.7)
[2021-04-05 10:19] LABS: Partial Thromboplastin Time 34.9 SECONDS (22.3-36.8)
--- NOTE | 2021-04-05 10:24 | ED.SOB ---
HPI - SOB/Dyspnea General Chief Complaint: Shortness of Breath/Dyspnea Stated Complaint: SOB Time Seen by Provider: 04/05/21 10:00 Source: RN notes reviewed History of Present Illness HPI Narrative: Patient presents to emergency department from home for shortness of breath. Patient arrives on 2 L nasal cannula for shortness of breath began this morning. Patient with a history of chronic renal failure with dialysis with dialysis last on Monday is followed by Dr. Huynh patient denies any fevers or chills chest pain or any other symptoms of concern. States he did not take his morning medication this morning Related Data Home Medications Medication Instructions Recorded Confirmed Dang-Nilsa 1 tablet PO DAILY 07/23/20 03/27/21 atorvastatin 80 mg PO HS 01/11/21 03/27/21 lorazepam 1 mg PO BID PRN 01/11/21 03/27/21 ropinirole 0.25 mg PO DIRECTED 01/11/21 03/27/21 amlodipine 5 mg PO HS 02/15/21 03/27/21 sevelamer carbonate 800 mg PO TID 02/15/21 03/27/21 carvedilol 25 mg tablet 25 mg PO HS 03/02/21 03/27/21 carvedilol 50 mg PO QAM 03/16/21 03/27/21 glucagon See Rx Instructions .ROUTE .COMPLEX 03/27/21 03/27/21 Allergies Allergy/AdvReac Type Severity Reaction Status Date / Time scopolamine Allergy Severe Unresponsiv Verified 04/05/21 10:52 e Review of Systems Review of Systems: Narrative: Gen.: Denies fevers or chills ENT: Denies congestion Respiratory: See HPI CV: Denies chest pain or palpitations GI: Denies abdominal pain nausea, emesis or diarrhea reports chronic renal failure dialysis Musculoskeletal: Denies back pain or muscle pain Neuro: Denies numbness, tingling, weakness or focal weakness Skin: Denies rash Except as documented, all other systems reviewed and negative [facility] Past Medical History Medical History Amputation above knee Anxiety Benign prostatic hyperplasia Bradycardic cardiac arrest (~07/23/20) In the setting of severe hyperkalemia, acute pulmonary edema, and respiratory failure Chronic anemia Congestive heart failure Echocardiogram in August 2020 showed a mildly enlarged left ventricular chamber, severely reduced left ventricular systolic function with an estimated ejection fraction of 25 to 30%, moderately increased LV wall thickness, grade 2 diastolic dysfunction, severe aortic valve sclerosis, mild mitral, tricuspid, and pulmonic valve regurgitation, mild pulmonary hypertension with an estimated arterial pressure 43 mmHg, and areas of hypokinesis including the apex, inferior wall, anterior wall, inferoseptal wall, anterolateral wall, and anteroseptal wall. Coronary artery disease With non STEMI in December 2019, with stent placed to the LAD. Depression with anxiety End-stage renal disease on hemodialysis Erythropoietin deficiency anemia Gastric ulcer On endoscopy per Dr. Pacheco in June 2020. Gastroesophageal reflux disease Hypertension Noncompliance Renal osteodystrophy Seizure Secondary to hypoglycemia. ST elevation myocardial infarction (STEMI) (~06/26/20) Secondary to abrupt stent thrombosis of the LAD. Tobacco dependence Type 1 diabetes mellitus Diagnosed at the age of 10. Complicated by retinopathy, nephropathy, and neuropathy. Hemoglobin A1c was 7.6% in July 2020. Vitamin D deficiency disease Surgical History Surgical History History of endoscopy (~06/27/20) History of femoropopliteal bypass 02/04/21 left common femoral endarterectomy with left femoral to below-knee popliteal artery bypass History of heart artery stent Stent in the LAD in December 2019. Patient had abrupt stent thrombosis of the previously placed stent to the LAD on June 26, 2020 left coronary with extraction thrombectomy and stenting distal to the original stent with upsizing of the original stent. History of spinal surgery Neurostimulator in place. History of transmetatarsal amputation of
[2021-04-05 10:25] LABS: Alanine Aminotransferase 12 U/L (4-50); Albumin Level 3.7 g/dL (3.5-5.1); Alkaline Phosphatase 91 U/L (38-126); Anion Gap 13 mmol/L (8-16); Aspartate Amino Transferase 26 U/L (17-59); Bilirubin,Total 0.3 mg/dL (0.2-1.3); Blood Urea Nitrogen 76 mg/dL (9-20); Calcium 8.5 mg/dL (8.4-10.2); Carbon Dioxide 20 mmol/L (22-30); Chloride 101 mmol/L (98-107); Estimated CRCL calculation 9 ml/min; Estimated Glomerular Filt Rate 7; Glucose 232 mg/dL (75-110); Potassium 4.6 mmol/L (3.4-5.0); Sodium 134 mmol/L (137-145)
[2021-04-05] MEDS: hydrALAZINE HCL 20 MG/ML VIAL 10 MG IV PUSH (11:17)
--- NOTE | 2021-04-05 12:14 | PC.NURSE ---
This patient, Ish Corley, was admitted to Intensive Care Unit-1. Patient/family oriented to hospital policies and general routines including ID bracelet, bed and alarms, visiting hours, pain management, procedures, bathroom and other care routines, personal items, smoking policy, room service/diet, and visiting hours. Information on how to activate the Rapid Response Team has been discussed. Patient/Family are encouraged to report perceived risks to care and to ask questions if they do not understand what they are told or what they should do.
--- NOTE | 2021-04-05 12:42 | PM.IMHP ---
H&P: HPI History of Present Illness Date/Time: 04/05/21 12:[id number] male patient who has a history of end-stage renal disease He has a history of being noncompliant with dialysis as well as his medications. The patient has had multiple admissions here already this year and multiple admissions to the ICU due to flash pulmonary edema. The patient has been intubated many times this year. The patient has chronically elevated troponins. The patient received a cardiac catheterization this year on 03/18/2021 and was found to have minimal coronary irregularities. He has a history of having LAD stent, hypertension and she had renal disease on dialysis. Bilateral amputations and multiple recurrent episodes of congestive heart failure. Last echo was 03/06/2021 within E EF of 55-60% with grade 1 diastolic dysfunction Today the patient came into the emergency room complaining of shortness of breath. The shortness of breath began today. The patient is now on 2 L per nasal cannula per EMS. He is not typically on oxygen at home.. Patient's chest x-ray was read as mild pulmonary edema. His dialysis schedule is On Monday schedule. It was noted that the patient had dialysis this past Monday. He is followed by Dr. Huynh. The patient denied any fever chills. The patient is complaining of having some left stump pain which is the above the knee amputation. The left above the knee amputation is clear without any signs and symptoms of infection and is healing well. The patient is requesting morphine at this time. The patient was given nitro ointment and hydralazine in the emergency room for blood pressure of 198/95. His H&H is 7.7 and 24.0. The patient is being admitted to observation services on the date of service of 04/05/2021. Chief Complaint: Shortness of breath Review of Systems Review of Systems: All systems reviewed & are unremarkable except as noted in HPI and below Constitutional: Constitutional: Reports as per HPI and Reports no additional constitutional complaints Eyes: Eyes: Reports as per HPI and Reports no additional eye complaints ENT: Reports system reviewed and no additional complaints, except as documented and Reports Normal hearing present Cardiovascular: Cardiovascular: Reports no additional cardiovascular complaints Respiratory: Respiratory: Reports no additional respiratory complaints and Reports no additional respiratory complaints Gastrointestinal: Gastrointestinal: Reports as per HPI and Reports no additional gastrointestinal complaints Musculoskeletal: Musculoskeletal: Reports no additional musculoskeletal complaints Integumentary/Breasts: Skin/Breast: Reports system reviewed and no additional complaints, except as docu and Reports as per HPI Neurologic: Reports system reviewed and no additional complaints, except as documented, Reports as per HPI and Reports Normal hearing present Psychiatric: Psychiatric: Reports no additional psychiatric complaints and Reports as per HPI Endocrine: Endocrine: Reports no additional endocrine complaints Hematologic/Lymphatic: Hematologic/Lymphatic: Reports no additional hematologic/lymphatic complaints Allergic/Immunologic: Allergic/Immunologic: Reports no additional allergic/immunologic complaints [facility] Past Medical History Medical History (Updated 04/05/21 @ 12:57 by Mary Lou Davila NP) Amputation above knee Anxiety Benign prostatic hyperplasia Bradycardic cardiac arrest (~07/23/20) In the setting of severe hyperkalemia, acute pulmonary edema, and respiratory failure Chronic anemia Congestive heart failure Echo 03/06/2021 1. Complete two-dimensional, color flow and Doppler transthoracic echocardiogram is performed. 2. Left ventricular chamber dimension is mildly enlarged. 3. Left ventricular systolic function is mildly reduced, estimated at 55-60%. 4. There is severely increased left ventricular wall thickness. Speckled appearance of the myocardi
[2021-04-05 13:56] LABS: Glucose Point of Care 136 mg/dl (65-105)
[2021-04-05] MEDS: MORPHINE SULFATE (*CRX) 2 MG/ML INJ IV PUSH ×2 (17:08→20:15)
--- NOTE | 2021-04-05 17:24 | PM.PNNEP ---
Progress Note: A&P Assessment and Plan (1) ESRD (end stage renal disease): Code(s): N18.6 - End stage renal disease Status: Chronic Assessment and Plan: HD today and continue M/W/F schedule FULL CONSULT to follow. Subjective Date/time seen: 04/05/21 17:24 Patient tolerating dialysis at the time of my visit (seen on HD at 5:15PM); states he already feels better with regard to his shortness of breath; no other acute complaints to report. Exam Narrative: Exam Narrative: General: WD/WN malein NAD Heart: normal S1 and S2; no rub Lungs: bibasilar crackles Abdomen: soft, nontender, nondistended, positive bowel sounds Extremities: no cyanosis or clubbing; no edema Skin: warm and dry Objective Data Vital Signs Vital Signs: Vital Signs Temp Pulse Resp BP Pulse Ox 04/05/21 15:32 36.8 C 92 20 148/73 H 04/05/21 13:00 91 24 H 151/76 H 93 04/05/21 12:24 36.9 C 93 24 H 185/82 H 100 04/05/21 12:04 76 16 198/95 H 100 04/05/21 11:45 99 27 H 194/82 H 100 04/05/21 11:02 94 27 H 195/87 H 100 04/05/21 10:47 93 25 H 197/93 H 04/05/21 09:54 97 25 H 177/77 H 97 Meds/Results Medications: Active Medications Generic Name Dose Route Start Last Admin Trade Name Freq PRN Reason Stop Dose Admin Hydrocodone Bitart/Acetaminophen 1 tab 04/05/21 13:28 Hydrocodone/Acetaminophen (*Crx) 5-325 Mg Tablet PO Q4H PRN Pain Rated 4-6 Dextrose 12.5 gm 04/05/21 13:23 Dextrose 50% 25 Gm/50 Ml Syringe IV PUSH PRN PRN Hypoglycemia Protocol Epoetin Johnnie-epbx 10,000 units 04/05/21 20:25 Epoetin Johnnie-Epbx 10,000 Units/Ml Vial IV PUSH 04/05/21 20:26 ONCE ONE Glucagon 1 mg 04/05/21 13:23 Glucagon For Inj 1 Mg Vial IM PRN PRN Hypoglycemia Protocol Glucose 15 gm 04/05/21 13:23 Glucose Oral Gel 15 Gm Of Glucse In 37.5 Gm Tube PO PRN PRN Hypoglycemia Protocol Heparin Sodium (Porcine) 5,000 units 04/05/21 14:00 Heparin Sodium 5,000 Units/Ml Vial SUB-Q Q8HR MARTHA Dextrose 1,000 mls @ 100 mls/hr 04/05/21 13:23 Dextrose 5% 1,000 Ml IVPB PRN PRN Hypoglycemia Protocol Albumin Human 50 mls @ 999 mls/hr 04/05/21 14:25 Albutein IVPB 04/06/21 14:26 Q10M PRN HYPOTENSION Insulin Aspart 3 - 6 units 04/05/21 17:00 Insulin Aspart (*Bkc) 100 Units/Ml SUB-Q TIDWM [facility] Protocol Labetalol HCl 20 mg 04/05/21 13:25 Labetalol Hcl Inj 100 Mg/20 Ml Vial IV PUSH Q4H PRN Hypertension Morphine Sulfate 2 mg 04/05/21 13:27 04/05/21 17:08 Morphine Sulfate (*Crx) 2 Mg/Ml Inj IV PUSH 2 mg Q4H PRN Administration Pain Rated 7-10 Radiology Results: ITS Impressions Chest X-Ray 04/05/21 10:09 IMPRESSION: 1. Mild pulmonary edema. Labs Labs: Laboratory Tests 04/05/21 10:03 04/05/21 10:03 Quality Patient seen/evaluated on hemodialysis treatment ([id number]).
[2021-04-05 20:11] LABS: Glucose Point of Care 82 mg/dl (65-105)
[2021-04-05] MEDS: NICOTINE (*PBKC) 21 MG PATCH 1 PATCH TRANSDERM (20:17)
--- NOTE | 2021-04-05 20:46 | PC.NURSE ---
1928 received report from echo vasc tech.
--- NOTE | 2021-04-05 20:46 | PC.NURSE ---
1934 Patient returned to ICU 1.
[2021-04-05] MEDS: ATORVASTATIN 40 MG TABLET 80 MG PO (21:38)
[2021-04-05] MEDS: HEPARIN SODIUM 5,000 UNITS/ML VIAL 5000 UNITS SUB-Q (21:38)
[2021-04-05] MEDS: rOPINIRole HCL 0.25 MG TABLET PO (21:38)
[2021-04-05] MEDS: amLODIPine BESYLATE 5 MG TABLET PO (21:40)
[2021-04-05] MEDS: INSULIN GLARGINE (*BKC) 100 UNITS/ML 10 UNITS SUB-Q (21:40)
[2021-04-05] MEDS: carvediloL 25 MG TABLET PO (21:40)
[2021-04-05 21:50] LABS: Glucose Point of Care 215 mg/dl (65-105)
[2021-04-06] VITALS (8 sets, daily range): BP systolic 132–152; BP diastolic 56–72; PULSE 86–97; RESP 19–21; TEMP 36.7–37.1; O2SAT 96–100
[2021-04-06] MEDS: HYDROcodone/acetaminophen (*CRX) 5-325 MG TABLET 1 TAB PO ×3 (00:04→08:42)
[2021-04-06] MEDS: MORPHINE SULFATE (*CRX) 2 MG/ML INJ IV PUSH ×3 (00:14→10:41)
[2021-04-06] MEDS: LORazepam (*CRX) 1 MG TABLET PO (04:44)
--- NOTE | 2021-04-06 04:48 | PC.NURSE ---
c/o feeling anxious - Lorazepam administered.
[2021-04-06 05:36] LABS: Basophils Percent Auto 0.4 % (0.2-1.2); Eosinophils Absolute Auto 0.4 K/mm3 (0-0.3); Eosinophils Percent Auto 4.6 % (0-4.4); Hematocrit 25.6 % (42.0-52.0); Immature Granulocyte Absolute 0.04 K/mm3 (0.00-0.031); Immature Granulocyte Percent A 0.5 % (0-0.5); Lymphocytes Percent Auto 22.8 % (18.3-44.2); Mean Corpuscular HGB Conc 31.3 g/dl (32-36); Mean Corpuscular Hemoglobin 30.7 pg (26-34); Mean Corpuscular Volume 98.1 fl (80-100); Mean Platelet Volume 8.9 fl (7.4-10.4); Monocytes Absolute Auto 0.7 K/mm3 (0.1-0.6); Monocytes Percent Auto 8.7 % (2.6-8.5); Neutrophils Absolute Auto 5.3 K/mm3 (1.3-6.7); Platelet Count Result 379 k/mm3 (150-375); Red Blood Count 2.61 M/mm3 (4.6-6.20); Red Cell Distribution Width 18.3 % (11.5-14.5); White Blood Count 8.3 K/mm3 (4.5-10.0)
[2021-04-06] MEDS: HEPARIN SODIUM 5,000 UNITS/ML VIAL 5000 UNITS SUB-Q (06:27)
[2021-04-06 06:50] LABS: Anion Gap 10 mmol/L (8-16); Blood Urea Nitrogen 33 mg/dL (9-20); Calcium 8.6 mg/dL (8.4-10.2); Carbon Dioxide 34 mmol/L (22-30); Chloride 96 mmol/L (98-107); Estimated CRCL calculation 12 ml/min; Estimated Glomerular Filt Rate 14; Glucose 234 mg/dL (75-110); Magnesium 2.3 mg/dL (1.6-2.3); Phosphorus 6.8 mg/dL (2.5-4.5); Sodium 140 mmol/L (137-145)
[2021-04-06 07:34] LABS: Glucose Point of Care 302 mg/dl (65-105)
--- NOTE | 2021-04-06 08:10 | PM.CNNEP ---
Assessment and Plan Assessment and plan (1) ESRD (end stage renal disease): Code(s): N18.6 - End stage renal disease Status: Chronic Assessment and Plan: HD yesterday and continue M/W/F schedule optimize electrolytes, volume status, and clearance as tolerated (2) Pulmonary edema: Code(s): J81.1 - Chronic pulmonary edema Status: Acute Assessment and Plan: as noted by admission CXR resolved/improved with fluid removal/ultrafiltration by dialysis follow respiratory status (3) Hypertension: Code(s): I10 - Essential (primary) hypertension Status: Acute Assessment and Plan: reasonable control at this time follow hemodynamics Will continue to follow. History of Present Illness Reason for Consult Consult date: 04/06/21 Reason for consult: end stage renal disease Chief Complaint Chief complaint: Pulmonary edema/chronic renal failure dialysis History of Present Illness Narrative: The patient is a 55-year-old Caucausian male with an extensive medical history as outlined below who presented to [facility] emergency room with complaints of shortness of breath. The patient has a history of multiple hospitalizations for acute respiratory failure secondary to pulmonary edema due to hypertensive urgency. He apparently had his normal dialysis treatment on Monday (04/02/21) without issues or problems. However later in the evening yesterday, he seemed the suddenly feel more short of breath. The shortness of breath continued to progress until eventually EMS was called for further evaluation. He was subsequent transferred to [facility] Emergency room for further evaluation. Workup and evaluation emergency room demonstrated the patient to be hemodynamically stable but in no acute distress. Routine blood test demonstrated labs consistent with his known history of end-stage renal disease with no acute /critical electrolyte abnormalities noted. His chest x-ray showed mild pulmonary edema as well. Given his extensive history of respiratory failure and subsequent need for intubation, he was admitted to the hospital for dialysis and closer monitoring of his respiratory status. Renal consultation was requested due to his end-stage renal disease. The patient normally dialyzes on a Monday, Monday, Monday schedule under the care of Dr. Luke Huynh at [facility]. As mentioned above, his last dialysis treatment was on 04/02/2021. As noted, he does have numerous hospitalizations for flash pulmonary edema/hypertensive urgency necessitating intubation and mechanical ventilation with the need for aggressive dialysis treatments with regard to ultrafiltration but usually he is extubated within 24-48 hours of these admissions. He did not require any further intervention other than supplemental oxygen and dialysis yesterday to improve his respiratory status. Currently, at the time my visit, he appears in no acute distress. Review of Systems Review of Systems: Narrative: As per HPI. [facility] Past Medical History Medical History (Updated 04/05/21 @ 12:57 by Mary Lou Davila NP) Amputation above knee Anxiety Benign prostatic hyperplasia Bradycardic cardiac arrest (~07/23/20) In the setting of severe hyperkalemia, acute pulmonary edema, and respiratory failure Chronic anemia Congestive heart failure Echo 03/06/2021 1. Complete two-dimensional, color flow and Doppler transthoracic echocardiogram is performed. 2. Left ventricular chamber dimension is mildly enlarged. 3. Left ventricular systolic function is mildly reduced, estimated at 55-60%. 4. There is severely increased left ventricular wall thickness. Speckled appearance of the myocardium. 5. The left ventricular diastolic function is grade I diastolic dysfunction. 6. Left atrial chamber dimension is mildly enlarged. 7. There is moderate aortic valve sclerosis. 8. The mitral valve annulus is severel
[2021-04-06] MEDS: INSULIN GLARGINE (*BKC) 100 UNITS/ML 10 UNITS SUB-Q (08:29)
[2021-04-06] MEDS: INSULIN ASPART (*BKC) 100 UNITS/ML SUB-Q ×2 (08:29→11:01)
[2021-04-06] MEDS: carvediloL 25 MG TABLET 50 MG PO (08:31)
[2021-04-06] MEDS: GABAPENTIN 300 MG CAPSULE PO (08:32)
[2021-04-06] MEDS: SERTRALINE HCL 50 MG TABLET 100 MG PO (08:32)
[2021-04-06] MEDS: VITAMIN B CMPLX/VIT C/FOLIC AC 1 CAPSULE 1 CAP PO (08:32)
[2021-04-06] MEDS: FAMOTIDINE 20 MG TABLET PO (08:32)
[2021-04-06] MEDS: NICOTINE (*PBKC) 21 MG PATCH 1 PATCH TRANSDERM (08:32)
[2021-04-06] MEDS: SEVELAMER CARBONATE 800 MG TABLET PO ×2 (08:32→11:01)
--- NOTE | 2021-04-06 08:36 | PM.DS ---
DS: Admitting Diagnosis Admitting Diagnosis Admitting Diagnosis: Acute pulmonary edema Shortness Chronic renal failure on dialysis DS: Discharge Diagnosis Discharge Diagnosis (1) Pulmonary edema: Code(s): J81.1 - Chronic pulmonary edema Status: Acute Assessment and Plan: The patient is currently on 2 L per nasal cannula. Chest x-ray shows some mild pulmonary edema. The patient has a long history of going into flash pulmonary edema. The patient is due for dialysis today. The patient has a history of being noncompliant with fluid restrictions as well as dialysis and medication. The plan is for the patient have dialysis today. Patient had an echo ready this year that shows a mildly reduced EF of 55-60%. The patient has had a cardiac catheterization already this year and had minimal coronary artery disease. He has a history of having a stent in the past. His troponins are chronically elevated. The patient is not complaining of any chest pain today. Nephrology will need to be consulted. (2) Hypertensive urgency: Code(s): I16.0 - Hypertensive urgency Status: Acute Assessment and Plan: The patient had a nitro paste patch placed earlier in the emergency room. However it looks like patient's blood pressure continues to be elevated. We will continue with his home medications. Medications to be reconciled however looks like the patient is on Coreg, amlodipine, hydralazine, and Lasix. The patient was getting p.r.n. labetalol his last admission so I will continue with p.r.n. labetalol as well wall monitors heart rate. (3) Acute respiratory failure: Qualifiers: Respiratory failure complication: hypoxia Qualified Code(s): J96.01 - Acute respiratory failure with hypoxia Code(s): J96.00 - Acute respiratory failure, unspecified whether with hypoxia or hypercapnia Status: Acute Assessment and Plan: The patient is on oxygen at 2 L per nasal cannula. However the patient has been intubated on several different occasions. The patient goes into flash pulmonary edema quite frequently. He is in the intensive care unit. Continue with patient's Lasix and he will be receiving dialysis today. 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 He is insulin-dependent. Continue with patient's Lantus. Will do moderate sliding scale insulin. 8.1 on 03/05/2021. (6) Peripheral vascular disease: Code(s): I73.9 - Peripheral vascular disease, unspecified Status: Acute Assessment and Plan: Patient has left kiclt-pra-gyna amputation and right below-knee amputation. (7) CHF exacerbation: Code(s): I50.9 - Heart failure, unspecified Status: Acute Assessment and Plan: The patient is on Lasix, and Coreg (8) ESRD (end stage renal disease) on dialysis: Code(s): N18.6 - End stage renal disease; Z99.2 - Dependence on renal dialysis Status: Chronic Assessment and Plan: Patient has dialysis on Monday and Monday. The patient's last dialysis was Monday. The patient will get dialysis today. DS: Summary Hospital Course Reason for hospitalization: Acute pulmonary edema Shortness of breath Chronic renal failure on dialysis Hospital Course: Patient is 55 years old male with history of chronic renal failure on dialysis, history of hypertension was admitted with complaint of having shortness of breath.
[2021-04-06 10:51] LABS: Glucose Point of Care 335 mg/dl (65-105)
== END 2021-04-06 11:55 | disposition home or self-care (01) ==
LOC: ANHED 10:40 → ANHICU 12:43
PROVIDERS: Admitting Provider Internal Medicine; Emergency Provider Emergency Medicine; PCP Emergency Medicine; Visit Provider Internal Medicine
DX: J81.1 Chronic pulmonary edema (principal); I16.0 Hypertensive urgency; J96.00 Acute respiratory failure, unspecified whether with hypoxia or hypercapnia; I13.2 Hypertensive heart and chronic kidney disease with heart failure and with stage 5 chronic kidney disease, or end stage renal disease; E10.22 Type 1 diabetes mellitus with diabetic chronic kidney disease; N18.6 End stage renal disease; I50.9 Heart failure, unspecified; Z99.2 Dependence on renal dialysis; E10.51 Type 1 diabetes mellitus with diabetic peripheral angiopathy without gangrene; I25.10 Atherosclerotic heart disease of native coronary artery without angina pectoris; I25.2 Old myocardial infarction; Z95.5 Presence of coronary angioplasty implant and graft; F41.8 Other specified anxiety disorders; D63.1 Anemia in chronic kidney disease; N25.0 Renal osteodystrophy; E55.9 Vitamin D deficiency, unspecified; K27.9 Peptic ulcer, site unspecified, unspecified as acute or chronic, without hemorrhage or perforation; N40.0 Benign prostatic hyperplasia without lower urinary tract symptoms; K21.9 Gastro-esophageal reflux disease without esophagitis; Z89.512 Acquired absence of left leg below knee; Z89.511 Acquired absence of right leg below knee; Z87.891 Personal history of nicotine dependence; F12.90 Cannabis use, unspecified, uncomplicated
CPT/HCPCS: 36415; 71045; 80048; 80053; 82948; 83735; 84100; 85025; 85610; 85730; 93005; 96372; 96374; 96375; 96376; 99285; A9270; G0378; J0360; J1644; J1815; J2270; J7030

== ENCOUNTER 2021-04-10 02:23 | Inpatient (IN) | payer MEDICARE, MEDICAID, SELFPAY ==
[2021-04-10] VITALS (47 sets, daily range): BP systolic 89–248; BP diastolic 47–124; PULSE 76–132; RESP 18–34; TEMP 35.8–36.9; O2SAT 95–100
--- NOTE | ~2021-04-10 | XR_ITS ---
EXAMINATION: XR chest 1V portable DATE: 04/10/2021 03:11 INDICATION: Shortness of breath. TECHNIQUE: A single frontal view of the chest was obtained. COMPARISON: Chest single view 04/05/2021, chest CT 03/11/2021 FINDINGS: The lungs are hyperexpanded with a diffuse interstitial pattern, likely mild pulmonary corby a superimposed on emphysema. No pleural effusion or pneumothorax. The heart size is normal. IMPRESSION: 1. Mild pulmonary edema. 2. Emphysema. Reviewed, dictated and finalized at location A.
--- NOTE | 2021-04-10 02:23 | ECG_ITS ---
Measurements Intervals [place] Rate: 132 P: RI: 0 QRS: 76 QRSD: 97 T: 89 QT: 279 QTc: 414 Interpretive Statements SINUS TACHYCARDIA DELAYED PRECORDIAL R/S TRANSITION NONSPECIFIC ST & T-WAVE ABNORMALITY- INF/LAT LEADS PEAKED T WAVES- CONSIDER HYPERKALEMIA OR ISCHEMIA BASELINE WANDER- I, II, III, AVL, AVF, V1, V3-V6 ABNORMAL ECG Electronically Signed On 04-15-2021 15:42:39 CDT by Edmond Elias D.O.
[2021-04-10] MEDS: NITROGLYCERIN OINTMENT 1 INCH DOSE TRANSDERM (02:29)
--- NOTE | 2021-04-10 02:29 | PC.NURSE ---
pt now on bipap placed by rt therapist in room. attempting iv access and blood draw. pt is RIGHT AKA and LEFT BKA.
--- NOTE | 2021-04-10 02:31 | PC.NURSE ---
pt's reports she gave pt 10 units lantus and 10 units regular insulin approx 0200.
[2021-04-10 02:35] LABS: Basophils Absolute Auto 0.1 K/mm3 (0.0-0.1); Basophils Percent Auto 0.8 % (0.2-1.2); Eosinophils Absolute Auto 0.4 K/mm3 (0-0.3); Eosinophils Percent Auto 2.7 % (0-4.4); Hematocrit 32.8 % (42.0-52.0); Hemoglobin 9.5 g/dL (14.0-18.0); Immature Granulocyte Absolute 0.07 K/mm3 (0.00-0.031); Immature Granulocyte Percent A 0.5 % (0-0.5); Lymphocytes Absolute Auto 2.43 K/mm3 (0.9-3.2); Lymphocytes Percent Auto 18.5 % (18.3-44.2); Mean Corpuscular Hemoglobin 31.4 pg (26-34); Mean Corpuscular Volume 108.3 fl (80-100); Mean Platelet Volume 9.9 fl (7.4-10.4); Monocytes Absolute Auto 0.9 K/mm3 (0.1-0.6); Monocytes Percent Auto 6.8 % (2.6-8.5); Neutrophils Absolute Auto 9.3 K/mm3 (1.3-6.7); Neutrophils Percent Auto 70.7 % (45.5-73.1); Platelet Count Result 539 k/mm3 (150-375); Red Blood Count 3.03 M/mm3 (4.6-6.20); Red Cell Distribution Width 17.3 % (11.5-14.5); White Blood Count 13.2 K/mm3 (4.5-10.0)
[2021-04-10 02:39] LABS: Glucose Point of Care > 500 mg/dl (65-105)
[2021-04-10 02:45] LABS: Partial Thromboplastin Time 34.9 SECONDS (22.3-36.8); Prothrombin Time 13.6 Seconds (11.1-14.7)
[2021-04-10 02:48] LABS: Hypochromasia 1+ (NORMAL); Ovalocytes 1+ (NORMAL); Platelet Estimate Increased (Adequate); Poikilocytosis 1+ (NORMAL)
[2021-04-10 02:56] LABS: Base Excess ABG -3.4 mEq/l (+/-2.0); Carboxyhemoglobin 0.8 % THb (0-2.0); Fractional Inspired Oxygen 70 %; HCO3 ABG 23.6 mEq/l (22.0-26.0); Methemoglobin ABG 0.3 %THb (0-1.5); Oxygen Content ABG 13.7 %vol (16.0-22.0); Oxygen Saturation ABG 99.6 % (95.0-100.0); Oxyhemoglobin 98.1 % THb (90.0-100.0); PCO2 ABG 52.1 mmHg (35.0-45.0); PO2 ABG 281.1 mmHg (80.0-100.0); PO2 FiO2 Ratio Arterial Blood 4.02 %; Reduced Hemoglobin 0.8 %THb (0-5.0); Total Hemoglobin 9.4 g/dL (12.0-18.0)
[2021-04-10 02:56] LABS: NT Pro B Type Natriuretic Pept > 35000 pg/mL (5-100); Troponin I 0.023 ng/mL (0.000-0.034)
[2021-04-10 02:59] LABS: Device NON-INVASIVE VENT; Modified Allen's Test Pass; Site Drawn RIGHT RADIAL; pH ABG 7.274 (7.350-7.450)
[2021-04-10 03:00] LABS: Non-Invasive Expiratory Pressure 8 CMH2O; Non-Invasive Inspiratory Pressure 16 CMH2O; Non-Invasive Vent Rate 16 /MIN
[2021-04-10 03:02] LABS: Anion Gap 24 mmol/L (8-16); Blood Urea Nitrogen 37 mg/dL (9-20); Calcium 9.3 mg/dL (8.4-10.2); Carbon Dioxide 22 mmol/L (22-30); Chloride 83 mmol/L (98-107); Estimated CRCL calculation 16 ml/min; Estimated Glomerular Filt Rate 16; Glucose 1090 mg/dL (75-110); Potassium 5.1 mmol/L (3.4-5.0); Sodium 129 mmol/L (137-145)
--- NOTE | 2021-04-10 03:12 | ED.SOB ---
HPI - SOB/Dyspnea General Chief Complaint: Shortness of Breath/Dyspnea Stated Complaint: RESP DISTRESS - CPAP History of Present Illness HPI Narrative: Patient is a 55-year-old male who presents ER and respiratory failure. Patient has history of ESRD and CHF. He had his last dialysis 04/09/2021. He recently left the hospital on 04/05/2021 for similar presentation. reports patient was having high blood sugars throughout the day and she gave him 10 of Lantus and 10 of his short acting insulin. He reports since getting home from dialysis he reports feeling off. Patient had sudden decline in status and last 25 to 30 minutes according to EMS. Patient's blood pressure in the 240s systolic for EMS. reports patient likely did not take any of his medications today. Related Data Home Medications Medication Instructions Recorded Confirmed Dang-Nilsa 1 tablet PO DAILY 07/23/20 04/10/21 atorvastatin 80 mg PO HS 01/11/21 04/10/21 lorazepam 1 mg PO BID PRN 01/11/21 04/10/21 ropinirole 0.25 mg PO DIRECTED 01/11/21 04/10/21 sevelamer carbonate 800 mg PO TID 02/15/21 04/10/21 carvedilol 25 mg tablet 25 mg PO HS 03/02/21 04/10/21 carvedilol 50 mg PO QAM 03/16/21 04/10/21 glucagon See Rx Instructions .ROUTE .COMPLEX 03/27/21 04/10/21 hydralazine 25 mg PO Q4H PRN 04/05/21 04/10/21 Allergies Allergy/AdvReac Type Severity Reaction Status Date / Time scopolamine Allergy Severe Unresponsiv Verified 04/10/21 02:39 e Review of Systems Review of Systems: ROS unobtainable: Yes unobtainable due to medical condition [facility] Past Medical History Medical History Amputation above knee Anxiety Benign prostatic hyperplasia Bradycardic cardiac arrest (~07/23/20) In the setting of severe hyperkalemia, acute pulmonary edema, and respiratory failure Chronic anemia Congestive heart failure Echo 03/06/2021 1. Complete two-dimensional, color flow and Doppler transthoracic echocardiogram is performed. 2. Left ventricular chamber dimension is mildly enlarged. 3. Left ventricular systolic function is mildly reduced, estimated at 55-60%. 4. There is severely increased left ventricular wall thickness. Speckled appearance of the myocardium. 5. The left ventricular diastolic function is grade I diastolic dysfunction. 6. Left atrial chamber dimension is mildly enlarged. 7. There is moderate aortic valve sclerosis. 8. The mitral valve annulus is severely calcified. 9. There is mild mitral valve regurgitation. 10. The mitral valve has thickened leaflets. 11. There is mild tricuspid valve regurgitation. 12. There is mild pulmonic regurgitation. Coronary artery disease With non STEMI in December 2019, with stent placed to the LAD. Depression with anxiety End-stage renal disease on hemodialysis Erythropoietin deficiency anemia Gastric ulcer On endoscopy per Dr. Pacheco in June 2020. Gastroesophageal reflux disease Hypertension Noncompliance Renal osteodystrophy Seizure Secondary to hypoglycemia. ST elevation myocardial infarction (STEMI) (~06/26/20) Secondary to abrupt stent thrombosis of the LAD. Tobacco dependence Type 1 diabetes mellitus Diagnosed at the age of 10. Complicated by retinopathy, nephropathy, and neuropathy. Hemoglobin A1c was 7.6% in July 2020. Vitamin D deficiency disease Surgical History Surgical History History of endoscopy (~06/27/20) History of femoropopliteal bypass 02/04/21 left common femoral endarterectomy with left femoral to below-knee popliteal artery bypass History of heart artery stent Stent in the LAD in December 2019. Patient had abrupt stent thrombosis of the previously placed stent to the LAD on June 26, 2020 left coronary with extraction thrombectomy and stenting distal to the original stent with upsizing of the original stent. History of spinal surgery Neurostimulator in pl
[2021-04-10] MEDS: LABETALOL HCL INJ 100 MG/20 ML VIAL 20 MG IV PUSH (03:24)
[2021-04-10] MEDS: FUROSEMIDE INJ 100 MG/10 ML VIAL 80 MG IV PUSH (03:26)
[2021-04-10] MEDS: INSULIN HUMAN REGULAR (*BKC) 100 UNITS/ML 10 UNITS IV PUSH (03:32)
[2021-04-10] MEDS: INSULIN HUMAN REGULAR (*BKC) 100 UNITS in SODIUM CHLORIDE 0.9% IV 99 ML 15 UNITS IV CONT (03:36)
[2021-04-10 04:55] LABS: Glucose Point of Care > 500 mg/dl (65-105)
[2021-04-10 05:01] LABS: Glucose Point of Care > 500 mg/dl (65-105)
--- NOTE | 2021-04-10 05:06 | ADMGEN ---
This patient, Ish Corley, was admitted to Intensive Care Unit-1 at 0437. Patient/family oriented to hospital policies and general routines including ID bracelet, bed and alarms, visiting hours, pain management, procedures, bathroom and other care routines, personal items, smoking policy, room service/diet, and visiting hours. Information on how to activate the Rapid Response Team has been discussed. Patient/Family are encouraged to report perceived risks to care and to ask questions if they do not understand what they are told or what they should do.
--- NOTE | 2021-04-10 05:10 | PM.IMHP ---
H&P: HPI History of Present Illness Date/Time: 04/10/21 05:10 Chief Complaint: Respiratory distress Narrative: 55-year-old male with past medical history of medical noncompliance, end-stage renal disease on hemodialysis, insulin-dependent diabetes mellitus with multiple episodes of DKA, and multiple admissions for flash pulmonary edema and hypertensive emergency who presented to the ER via EMS after waking up in respiratory distress. Source of information is past medical records and ER records as the patient is not providing much information. The patient's reported to the ER staff that she does not think the patient took his insulin or his blood pressure medications all day. When the patient hold and respiratory distress alive called EMS. The patient had evidently underwent hemodialysis on 04/09/2021. When he woke up he was in respiratory distress and hypoxic. When EMS arrived on the scene a place patient on CPAP in the field. To the ER his satting 100% with a respiratory rate in the mid 30s. He was transitioned to BiPAP 16/8 a 70% FiO2 with a rate of 16. His had checked his sugars at home and they were noted to be high. She gave him 10 units of Lantus and 10 units of NovoLog before EMS arrival. To the ER the patient's glucose was greater than a 1000 and anion gap of 24. He was given 10 units of IV insulin and started on an insulin drip without additional IV fluids due to his history of pulmonary edema. Patient's glucose on arrival to ICU was 564. Patient's blood pressures were noted to be in the 230-240s systolic on arrival to the ER. Nitropaste was placed with little response the patient's blood pressures he received 20 of IV labetalol. With repeat blood pressures in the 170s to 180s. Review of Systems Review of Systems: ROS unobtainable: Yes unobtainable due to medical condition (Respiratory distress) [facility] Past Medical History Medical History Amputation above knee Anxiety Benign prostatic hyperplasia Bradycardic cardiac arrest (~07/23/20) In the setting of severe hyperkalemia, acute pulmonary edema, and respiratory failure Chronic anemia Congestive heart failure Echo 03/06/2021 1. Complete two-dimensional, color flow and Doppler transthoracic echocardiogram is performed. 2. Left ventricular chamber dimension is mildly enlarged. 3. Left ventricular systolic function is mildly reduced, estimated at 55-60%. 4. There is severely increased left ventricular wall thickness. Speckled appearance of the myocardium. 5. The left ventricular diastolic function is grade I diastolic dysfunction. 6. Left atrial chamber dimension is mildly enlarged. 7. There is moderate aortic valve sclerosis. 8. The mitral valve annulus is severely calcified. 9. There is mild mitral valve regurgitation. 10. The mitral valve has thickened leaflets. 11. There is mild tricuspid valve regurgitation. 12. There is mild pulmonic regurgitation. Coronary artery disease With non STEMI in December 2019, with stent placed to the LAD. Depression with anxiety End-stage renal disease on hemodialysis Erythropoietin deficiency anemia Gastric ulcer On endoscopy per Dr. Pacheco in June 2020. Gastroesophageal reflux disease Hypertension Noncompliance Renal osteodystrophy Seizure Secondary to hypoglycemia. ST elevation myocardial infarction (STEMI) (~06/26/20) Secondary to abrupt stent thrombosis of the LAD. Tobacco dependence Type 1 diabetes mellitus Diagnosed at the age of 10. Complicated by retinopathy, nephropathy, and neuropathy. Hemoglobin A1c was 7.6% in July 2020. Vitamin D deficiency disease Surgical History Surgical History History of endoscopy (~06/27/20) History of femoropopliteal bypass 02/04/21 left common femoral endarterectomy with left femoral to below-knee popliteal artery bypass History of heart artery stent Baldev
[2021-04-10 05:29] LABS: Anion Gap 12 mmol/L (8-16); Blood Urea Nitrogen 40 mg/dL (9-20); Calcium 8.8 mg/dL (8.4-10.2); Carbon Dioxide 29 mmol/L (22-30); Chloride 87 mmol/L (98-107); Estimated CRCL calculation 15 ml/min; Estimated Glomerular Filt Rate 14; Potassium 3.9 mmol/L (3.4-5.0); Sodium 128 mmol/L (137-145)
[2021-04-10 05:38] LABS: Troponin I 0.026 ng/mL (0.000-0.034)
[2021-04-10 05:41] LABS: Glucose 708 mg/dL (75-110)
[2021-04-10] MEDS: METOPROLOL TARTRATE INJ 5 MG/5 ML VIAL IV PUSH (05:45)
[2021-04-10 06:35] LABS: Glucose Point of Care 438 mg/dl (65-105)
[2021-04-10 08:55] LABS: Anion Gap 14 mmol/L (8-16); Blood Urea Nitrogen 41 mg/dL (9-20); Calcium 9.2 mg/dL (8.4-10.2); Carbon Dioxide 27 mmol/L (22-30); Chloride 93 mmol/L (98-107); Estimated CRCL calculation 14 ml/min; Estimated Glomerular Filt Rate 13; Glucose 165 mg/dL (75-110); Potassium 3.6 mmol/L (3.4-5.0); Sodium 134 mmol/L (137-145)
--- NOTE | 2021-04-10 08:59 | WPDCNINT ---
Assessment and Plan Assessment and plan (1) Diabetic ketoacidosis: Code(s): E11.10 - Type 2 diabetes mellitus with ketoacidosis without coma Status: Acute Assessment and Plan: Patient presented with acute respiratory distress, hypertensive urgency, was found to have elevated blood sugars of > 1000 in the ER. -patient was not given any IV fluids cause of pulmonary edema on chest x-ray and history of recurrent pulmonary edema, and end-stage renal disease -he was started on insulin infusion, will transition to long-acting insulin and sliding scale insulin once anion gap closes -recent hemoglobin A1c on 03/05/2021 was 8.1 (2) Acute on chronic respiratory failure with hypoxia and hypercapnia: Code(s): J96.21 - Acute and chronic respiratory failure with hypoxia; J96.22 - Acute and chronic respiratory failure with hypercapnia Status: Acute Assessment and Plan: Acute on chronic respiratory failure likely related to pulmonary edema secondary to a hypertensive urgency/emergency -patient had systolic blood pressures in the 240s, since admission is has been controlled -patient did get dialyzed on 03/10/2021 -may need to be dialyzed again with removal of fluid (3) Pulmonary edema: Qualifiers: Chronicity: acute Qualified Code(s): J81.0 - Acute pulmonary edema Code(s): J81.1 - Chronic pulmonary edema Status: Acute Assessment and Plan: As above (4) Hypertensive urgency: Code(s): I16.0 - Hypertensive urgency Status: Acute Assessment and Plan: Presented with systolic blood pressures in the 240s, pulmonary edema, DKA, respiratory distress -continue amlodipine, Coreg, hydralazine, (5) End stage renal disease: Code(s): N18.6 - End stage renal disease Status: Chronic Assessment and Plan: End-stage renal disease on dialysis, nephrology has been consulted -chest x-ray shows pulmonary edema -last dialysis was 04/09/2021 -may need to be dialyzed again today for fluid removal Additional Plan Discussed with patient updated with his condition and plan of care. Code status: Full code Critical care time spent: 45 minutes This dictation may have been done utilizing a voice recognition system. Attempts have been made to correct errors. However, there may be uncorrected grammatical, spelling, and recognition errors present. Due to a high probability of clinically significant, life threatening deterioration, the patient required my highest level of preparedness to intervene emergently and I personally spent this critical care time directly and personally managing the patient. This critical care time included obtaining a history; examining the patient; pulse oximetry; ordering and review of studies; arranging urgent treatment with development of a management plan; evaluation of patient's response to treatment; frequent reassessment; and discussions with other providers. It was exclusive of separately billable procedures and treating other patients and teaching time. Please see Assessment and Plan section and the rest of the note for further information on patient assessment and treatment Clay Temperer Consult Note Consult date: 04/10/21 Time Seen: 07:11 Reason for consult: Diabetes ketoacidosis, hypertensive urgency, acute respiratory failure likely related to pulmonary edema HPI: Ish Corley is a 55 year old male with multiple medical problems including CHF, coronary artery disease, end-stage renal disease on hemodialysis, gastric ulcers, GERD, hypertension with hypertensive urgency, tobacco dependence, type 1 diabetes arterial disease with bilateral lower extremity amputation, presented the ED with complaints of respiratory distress/ shortness of breath, and hypertensive urgency. Was recently discharged from [facility] on 04/05 for similar complaints. His last dialysis was on 04/09/2021. Patient's blood pressures were in the 240s. EMS put patient on CPAP a
[2021-04-10 09:01] LABS: Glucose Point of Care 207 mg/dl (65-105)
[2021-04-10] MEDS: DEXTROSE 50% 25 GM/50 ML SYRINGE IV PUSH ×2 (09:56→10:59)
[2021-04-10 09:58] LABS: Glucose Point of Care 89 mg/dl (65-105)
[2021-04-10 09:58] LABS: Glucose Point of Care 48 mg/dl (65-105)
[2021-04-10 10:15] LABS: Glucose Point of Care 95 mg/dl (65-105)
--- NOTE | 2021-04-10 10:53 | PM.CNNEP ---
Assessment and Plan Assessment and plan (1) ESRD (end stage renal disease) on dialysis: Code(s): N18.6 - End stage renal disease; Z99.2 - Dependence on renal dialysis Status: Chronic Assessment and Plan: The patient has end-stage renal disease. He would normally get dialysis today because he is on 4 times a week. Will go ahead and dry ultrafiltrate him because his blood pressure is a little bit on the low side for him and we would get more fluid off of him doing this. Potassium is okay and BUN is okay. (2) Malignant hypertension: Code(s): I10 - Essential (primary) hypertension Status: Acute Assessment and Plan: The patient's blood pressure was very high when he came in. It is better now. (3) Acute respiratory failure with hypoxia: Code(s): J96.01 - Acute respiratory failure with hypoxia Status: Acute Assessment and Plan: The patient has a chest x-ray looking like excess fluid. We will get fluid off as tolerated. Controlling his blood pressure would help this as well. Long discussion with Dr. Cortes about why he has recurrent pulmonary edema. Part of it is hypertension and increased afterload. I am sure anxiety plays a role because it causes his blood pressure to rise. I am not sure that drinking fluid in eating salt always has a role in his pulmonary edema but may be part of this. I wonder if he has decreased threshold for pulmonary edema. No were the is that regardless of how much fluid is in his lungs he rarely has any swelling. So this is mostly a left-sided issue. Will increase amlodipine to try to increase venous volume. Possibly the this will give him more of a reserve and excess fluid might good was legs rather than his lungs. Will continue to encouraged him to go to [place] to look at his heart. (4) DKA (diabetic ketoacidoses): Qualifiers: Diabetes mellitus type: type 1 Diabetes mellitus complication detail: without coma Qualified Code(s): E10.10 - Type 1 diabetes mellitus with ketoacidosis without coma Code(s): E11.10 - Type 2 diabetes mellitus with ketoacidosis without coma Status: Resolved Assessment and Plan: Patient sugar was over 1000 when he came in. He is on an insulin drip now. (5) Anxiety: Code(s): F41.9 - Anxiety disorder, unspecified Status: Acute Assessment and Plan: This always plays a role in his hypertension and therefore his pulmonary fluid. (6) Peripheral vascular disease: Code(s): I73.9 - Peripheral vascular disease, unspecified Status: Acute Assessment and Plan: Bilateral LE amputations. History of Present Illness Reason for Consult Consult date: 04/10/21 Chief Complaint Chief complaint: respiratory failure, chf, hyperglycemia, History of Present Illness Narrative: Ish is a very pleasant 55 yo gentleman who has multiple medical problems including end-stage renal disease on dialysis 3 times a week, severe hypertension, diastolic dysfunction, systolic dysfunction, severe aortic valve sclerosis, mild pulmonary hypertension, continued smoking, coronary disease status post IA, anemia, renal osteodystrophy, gastric ulcer, BPH, peripheral vascular disease status post right [id number] amputation and left [id number] amputation, diabetes with retinopathy nephropathy neuropathy, and vitamin-D deficiency. The patient has been in and out of the hospital 4 times this month. Each time it is with shortness of breath. He has been getting to his dry weight. Early in the month his dry weight was 56 kg then 3 weeks ago were dropped to 54 and 2 weeks ago drop it to 52. He has been getting to his dry weight. When he comes into the hospital he is anxious, very hypertensive, and short of breath. Generally he needs dialysis to get him better. It is unclear how much weight he gains to get into this situation because scales at the hospital are not equivalent to the scales at the dialys
[2021-04-10 10:55] LABS: Glucose Point of Care 61 mg/dl (65-105)
[2021-04-10] MEDS: NICOTINE (*PBKC) 21 MG PATCH 1 PATCH TRANSDERM (12:33)
[2021-04-10] MEDS: GABAPENTIN 300 MG CAPSULE PO (12:34)
[2021-04-10] MEDS: VITAMIN B CMPLX/VIT C/FOLIC AC 1 CAPSULE 1 CAP PO (12:34)
[2021-04-10] MEDS: carvediloL 25 MG TABLET PO ×2 (12:34→22:00)
[2021-04-10] MEDS: HEPARIN SODIUM 5,000 UNITS/ML VIAL 5000 UNITS SUB-Q ×2 (12:34→21:15)
[2021-04-10] MEDS: SEVELAMER CARBONATE 800 MG TABLET PO ×2 (12:34→17:26)
[2021-04-10] MEDS: SERTRALINE HCL 50 MG TABLET 100 MG PO (12:34)
[2021-04-10] MEDS: hydrALAZINE HCL 25 MG TABLET PO (12:35)
[2021-04-10] MEDS: FAMOTIDINE 20 MG TABLET PO (12:35)
[2021-04-10 13:03] LABS: Anion Gap 12 mmol/L (8-16); Blood Urea Nitrogen 44 mg/dL (9-20); Calcium 9.1 mg/dL (8.4-10.2); Carbon Dioxide 29 mmol/L (22-30); Chloride 93 mmol/L (98-107); Estimated CRCL calculation 13 ml/min; Estimated Glomerular Filt Rate 12; Glucose 59 mg/dL (75-110); Potassium 4.2 mmol/L (3.4-5.0); Sodium 134 mmol/L (137-145)
[2021-04-10 13:13] LABS: Glucose Point of Care 175 mg/dl (65-105)
[2021-04-10 16:59] LABS: Glucose Point of Care 292 mg/dl (65-105)
[2021-04-10] MEDS: INSULIN ASPART (*BKC) 100 UNITS/ML SUB-Q (17:25)
--- NOTE | 2021-04-10 18:47 | ADMGEN ---
This patient, Ish Corley, was admitted to [facility] med/surg [facility]. Patient/family oriented to hospital policies and general routines including ID bracelet, bed and alarms, visiting hours, pain management, procedures, bathroom and other care routines, personal items, smoking policy, room service/diet, and visiting hours. Information on how to activate the Rapid Response Team has been discussed. Patient/Family are encouraged to report perceived risks to care and to ask questions if they do not understand what they are told or what they should do.
--- NOTE | 2021-04-10 18:51 | PC.NURSE ---
This patient, Ish Corley, was transferred to [ [facility] 3 ms] on 04/10/21 at 1851. Personal belongings sent with patient. Report given to [ faustino warner]. Appropriate documentation sent with patient.
[2021-04-10] MEDS: HYDROcodone/acetaminophen (*CRX) 5-325 MG TABLET 1 TAB PO (20:51)
[2021-04-10] MEDS: amLODIPine BESYLATE 5 MG TABLET 10 MG PO (20:54)
[2021-04-10] MEDS: ATORVASTATIN 40 MG TABLET 80 MG PO (20:54)
[2021-04-10] MEDS: rOPINIRole HCL 0.25 MG TABLET PO (20:55)
[2021-04-10] MEDS: INSULIN GLARGINE (*BKC) 100 UNITS/ML 10 UNITS SUB-Q (21:15)
[2021-04-10 22:59] LABS: Glucose Point of Care 343 mg/dl (65-105)
[2021-04-11] VITALS (7 sets, daily range): BP systolic 104–109; BP diastolic 50–55; PULSE 70–94; RESP 14–16; TEMP 36.1–36.6; O2SAT 96–100
[2021-04-11] MEDS: INSULIN ASPART (*BKC) 100 UNITS/ML SUB-Q ×2 (00:05→12:14)
[2021-04-11] MEDS: HYDROcodone/acetaminophen (*CRX) 10-325 MG TABLET 1 TAB PO (00:55)
--- NOTE | 2021-04-11 01:28 | PC.NURSE ---
Addendum entered by Lacey Schaefer RN 04/11/21 01:43: Dr. Ponce denied pt's permission to eat sandwich snack on floor. Original Note: Obtained ONE TIME order via Dr. Ponce to give 5U Novolog per 343 mg/dl POC glucose check @ 2221. Pt self administered insulin w/ standby assist and no adverse events. Will repeat accu check at 0300 and notify MD if BS remains 300 mg/dl or >. Obtained ONE TIME order via Dr. Ponce to give 10-325 mg hydrocodone/acetaminophen per pt's c/o of continued pain to Left AKA stump. Pt stated that initial order Hydrocodone/Acetaminophen 5-325mg does not help and request Morphine instead. Dr. Ponce denied request and proceeded w/ previously mentioned order of 10-325mg. Will continue to monitor. 0130: Pt found eating blueberry muffin in bed and is asking for a sandwich. SN instructed patient that current food choices are not conducive to the DM and renal diet regimen. Pt verbalized understanding.
[2021-04-11 03:27] LABS: Glucose Point of Care 219 mg/dl (65-105)
[2021-04-11 06:42] LABS: Glucose Point of Care 186 mg/dl (65-105)
[2021-04-11 08:54] LABS: Glucose Point of Care 190 mg/dl (65-105)
[2021-04-11] MEDS: INSULIN GLARGINE (*BKC) 100 UNITS/ML 10 UNITS SUB-Q (09:08)
[2021-04-11] MEDS: SEVELAMER CARBONATE 800 MG TABLET PO ×2 (09:09→12:14)
[2021-04-11] MEDS: carvediloL 25 MG TABLET PO (09:09)
[2021-04-11] MEDS: GABAPENTIN 300 MG CAPSULE PO (09:10)
[2021-04-11] MEDS: NICOTINE (*PBKC) 21 MG PATCH 1 PATCH TRANSDERM (09:10)
[2021-04-11] MEDS: FAMOTIDINE 20 MG TABLET PO (09:10)
[2021-04-11] MEDS: HEPARIN SODIUM 5,000 UNITS/ML VIAL 5000 UNITS SUB-Q (09:10)
[2021-04-11] MEDS: hydrALAZINE HCL 25 MG TABLET PO (09:10)
[2021-04-11] MEDS: VITAMIN B CMPLX/VIT C/FOLIC AC 1 CAPSULE 1 CAP PO (09:10)
[2021-04-11] MEDS: SERTRALINE HCL 50 MG TABLET 100 MG PO (09:10)
[2021-04-11] MEDS: HYDROcodone/acetaminophen (*CRX) 5-325 MG TABLET 1 TAB PO (09:22)
--- NOTE | 2021-04-11 11:07 | PM.PNNEP ---
Progress Note: A&P Assessment and Plan (1) ESRD (end stage renal disease) on dialysis: Code(s): N18.6 - End stage renal disease; Z99.2 - Dependence on renal dialysis Status: Chronic Assessment and Plan: The patient has end-stage renal disease. Volume status looks okay right now. Potassium fine will get another dialysis tomorrow (2) Malignant hypertension: Code(s): I10 - Essential (primary) hypertension Status: Acute Assessment and Plan: The patient's blood pressure was very high when he came in. It is better now. he is on carvedilol 25 b.i.d., hydralazine 25 b.i.d., and amlodipine 10 mg a day (3) Acute respiratory failure with hypoxia: Code(s): J96.01 - Acute respiratory failure with hypoxia Status: Acute Assessment and Plan: patient looks good right now. Will check a chest x-ray in the a.m. (4) DKA (diabetic ketoacidoses): Qualifiers: Diabetes mellitus type: type 1 Diabetes mellitus complication detail: without coma Qualified Code(s): E10.10 - Type 1 diabetes mellitus with ketoacidosis without coma Code(s): E11.10 - Type 2 diabetes mellitus with ketoacidosis without coma Status: Resolved Assessment and Plan: Patient sugar was over 1000 when he came in. sugars better now. (5) Anxiety: Code(s): F41.9 - Anxiety disorder, unspecified Status: Acute Assessment and Plan: This always plays a role in his hypertension and therefore his pulmonary fluid. (6) Peripheral vascular disease: Code(s): I73.9 - Peripheral vascular disease, unspecified Status: Acute Assessment and Plan: Bilateral LE amputations. Subjective Date/time seen: 04/11/21 11:07 Interval history: Ish is feeling better today. In good spirits and no shortness of breath. He is lying flat in bed. Review of Systems Cardiovascular: Cardiovascular: Reports no additional cardiovascular complaints Respiratory: Respiratory: Reports no additional respiratory complaints Gastrointestinal: Gastrointestinal: Reports no additional gastrointestinal complaints Genitourinary: Genitourinary: Reports no additional male genitourinary complaints Exam Narrative: Exam Narrative: WDWN in NAD skin no rash head ncat lungs clear cor reg no rub abd BS+ nontender and soft ext no edema. Bilateral lower extremity amputations. Objective Data Vital Signs Vital Signs: Vital Signs - 24 hr 04/10/21 12:00 04/10/21 12:34 04/10/21 13:16 Temperature 36.9 C Pulse Rate 83 86 78 Respiratory Rate 22 H 20 Blood Pressure 134/58 L 124/60 Pulse Oximetry 100 04/10/21 13:26 04/10/21 13:45 04/10/21 14:00 Temperature Pulse Rate 82 83 81 Respiratory Rate 22 H Blood Pressure 106/53 L 108/67 127/66 Pulse Oximetry 04/10/21 14:15 04/10/21 14:30 04/10/21 14:45 Temperature Pulse Rate 83 78 79 Respiratory Rate Blood Pressure 135/61 107/55 L 112/54 L Pulse Oximetry 04/10/21 15:00 04/10/21 15:15 04/10/21 15:25 Temperature 36.7 C Pulse Rate 78 79 76 Respiratory Rate 21 H Blood Pressure 89/62 L 94/62 L 132/60 Pulse Oximetry 04/10/21 16:00 04/10/21 17:16 04/10/21 18:49 Temperature 36.9 C Pulse Rate 83 83 89 Respiratory Rate 18 20 Blood Pressure 122/62 106/47 L Pulse Oximetry 100 99 04/10/21 20:00 04/10/21 22:00 04/11/21 00:00 Temperature 36.4 C L Pulse Rate 94 88 89 Respiratory Rate 18 Blood Pressure 117/64 Pulse Oximetry 100 04/11/21 04:00 04/11/21 06:31 04/11/21 08:00 Temperature 36.1 C L Pulse Rate 94 70 72 Respiratory Rate 14 Blood Pressure 109/55 L Pulse Oximetry 100 04/11/21 09:09 Temperature Pulse Rate 72 Respiratory Rate Blood Pressure Pulse Oximetry Intake/Output Intake/Output: Intake & Output 04/08/21 04/09/21 04/10/21 04/11/21 23:59 23:59 23:59 23:59 Intake Total 960 730 Output Total 1636 Balance -676
[2021-04-11 12:12] LABS: Glucose Point of Care 219 mg/dl (65-105)
--- NOTE | 2021-04-11 13:58 | PM.DS ---
DS: Admitting Diagnosis Admitting Diagnosis Admitting Diagnosis: DKA DS: Discharge Diagnosis Discharge Diagnosis (1) DKA (diabetic ketoacidoses): Qualifiers: Diabetes mellitus type: type 1 Diabetes mellitus complication detail: without coma Qualified Code(s): E10.10 - Type 1 diabetes mellitus with ketoacidosis without coma Code(s): E11.10 - Type 2 diabetes mellitus with ketoacidosis without coma Status: Resolved (2) Acute respiratory failure with hypoxia: Code(s): J96.01 - Acute respiratory failure with hypoxia Status: Acute (3) Hypertensive emergency: Code(s): I16.1 - Hypertensive emergency Status: Acute (4) Noncompliance: Code(s): Z91.19 - Patient's noncompliance with other medical treatment and regimen Status: Acute (5) ESRD (end stage renal disease) on dialysis: Code(s): N18.6 - End stage renal disease; Z99.2 - Dependence on renal dialysis Status: Chronic DS: Summary Hospital Course Reason for hospitalization: Dyspnea Hospital Course: Gentleman presented with dyspnea and found to be in diabetic ketoacidosis blood sugar over 1000. He admits to not taking his insulin. Responded well to IV insulin followed by insulin drip. Dialysis. Blood pressure was elevated in the 180 systolic range upon admission. Improved to the 110s after dialysis and resumption of his home medical regimen. Fasting blood sugar was 190 in prelunch blood sugar 219 on day of discharge. Status at Discharge Overall status at discharge: patient is back to baseline Time Spent with Patient Time attestation: Total time spent providing and/or coordinating discharge services: Time spent: Greater than 30 minutes Exam Narrative: Exam Narrative: General: chronically ill appearing bilateral lower extremity amputee in NAD HEENT: Sclera nonicteric. Oral mucosa moist and pink. Respiratory: Clear to auscultation with normal effort Cardiovascular: Regular rate, regular rhythm Gastrointestinal: Soft, nontender, positive bowel sounds Skin: Generalized pallor, non jaundice Musculoskeletal: Left upper extremity AV fistula palpable thrill, right [id number] amputation with stump in good condition, left above the knee amputation with stump in good condition Neurological: Cranial nerves 3-12 grossly intact. Psychiatric: Alert and oriented to person place and time. Hematologic/lymphatic: Small amount of bruising at the left upper extremity AV fistula site DS: Data Data Completed and Pending Labs on day of discharge: Labs from last 24 hours 04/11/21 04/11/21 04/11/21 12:05 08:52 06:38 POC Capillary Glucose 219 H 190 H 186 H 04/11/21 04/10/21 04/10/21 03:22 22:20 16:56 POC Capillary Glucose 219 H 343 H 292 H Discharge Plan Discharge Consulting providers: Holly Cortes ; Luke Huynh Discharging Clinician: Wilbur Guerrero Patient Disposition: Home, Self-Care Activity: as tolerated Diet: heart healthy and diabetic Patient Instructions: How to Stop Smoking (DC) Stand Alone Forms: General Discharge Information Follow-up/Referrals: Chance Maurice MD [Primary Care Provider] - 1 Week Discharge Medications: Continued sertraline 100 mg tablet 100 mg PO DAILY Qty: 90 RF: 2 ropinirole 0.25 mg tablet 0.25 mg PO DIRECTED RF: 0 atorvastatin 40 mg tablet 80 mg PO HS RF: 0 lorazepam 0.5 mg tablet 1 mg PO BID PRN (Reason: Anxiety) RF: 0 sevelamer carbonate 800 mg tablet 800 mg PO TID RF: 0 Lantus Solostar U-100 Insulin 100 unit/mL (3 mL) insulin pen 10 unit subcut BID Qty: 3 RF: 5 glucagon 1 mg Kit See Rx Instructions .ROUTE .COMPLEX RF: 0 acetaminophen [Mapap (acetaminophen)] 325 mg Tablet 650 mg PO Q4H PRN (Reason: Mild Pain (1-3) Or Fever) Qty: 60 RF: 0 nicotine [Nicoderm CQ] 21 mg/24 hr Patch 24 Hour 1 patch transdermal QAM Qty: 28 RF: 0 hydralazine 25 mg Tablet
== END 2021-04-11 15:40 | disposition home or self-care (01) | DRG 637 ==
LOC: ANHED 03:16 → ANHICU 05:27 → ANH3MEDSUR 04-11 14:03 → ANHICU 04-14 14:26
PROVIDERS: Admitting Provider Internal Medicine; Emergency Provider Emergency Medicine; PCP Emergency Medicine; Visit Provider Internal Medicine
DX: E10.10 Type 1 diabetes mellitus with ketoacidosis without coma (principal); J96.01 Acute respiratory failure with hypoxia; N18.6 End stage renal disease; I16.1 Hypertensive emergency; I13.2 Hypertensive heart and chronic kidney disease with heart failure and with stage 5 chronic kidney disease, or end stage renal disease; I50.9 Heart failure, unspecified; E10.22 Type 1 diabetes mellitus with diabetic chronic kidney disease; Z99.2 Dependence on renal dialysis; F17.200 Nicotine dependence, unspecified, uncomplicated; I25.10 Atherosclerotic heart disease of native coronary artery without angina pectoris; D63.1 Anemia in chronic kidney disease; E10.40 Type 1 diabetes mellitus with diabetic neuropathy, unspecified; E10.319 Type 1 diabetes mellitus with unspecified diabetic retinopathy without macular edema; E10.51 Type 1 diabetes mellitus with diabetic peripheral angiopathy without gangrene; F41.8 Other specified anxiety disorders; E55.9 Vitamin D deficiency, unspecified; I25.2 Old myocardial infarction; Z79.4 Long term (current) use of insulin; Z79.899 Other long term (current) drug therapy; Z86.74 Personal history of sudden cardiac arrest; Z89.511 Acquired absence of right leg below knee; Z89.612 Acquired absence of left leg above knee; Z98.49 Cataract extraction status, unspecified eye
CPT/HCPCS: 36415; 36600; 71045; 80048; 82375; 82805; 82948; 83050; 83880; 84484; 85025; 85610; 85730; 93005; 94002; 94660; 96374; 96375; 99291; A9270; G0257; J1644; J1815; J1940; J7030

== ENCOUNTER 2021-04-29 13:00 | Outpatient (RCR) | payer MEDICARE, MEDICAID, SELFPAY ==
--- NOTE | 2021-03-30 09:32 | OTOPEVAL ---
OCCUPATIONAL THERAPY EVALUATION AND DISCHARGE SUMMARY 03/30/21 Patient presents to outpatient OT following recent left AKA with a history of right BKA. He does have a prosthesis on the right LE and has returned to being independent with ADLs at home. He has intact and functional upper body strength for ADLs and for functional transfers. He also has all necessary DME at home to ensure safety with ADLs. No skilled OT indicated at this time as his needs for mobility will be met by PT. Thank you for referring Ish Corley to [facility] Please review, sign, date and return this Evaluation and Discharge Summary DONTAE. I agree with and certify that the following plan of care is medically necessary. Referring Physician Date Referring Provider: Chance Maurice MD *OT Outpatient Evaluation Start: 03/30/21 08:45 Therapy Assessment Status Assessment Status Assessment Status Evaluation Outpatient Past Medical History Past Medical History Source of Past Medical History Recalled from Previous Visit, Confirmed with Patient/Family Neurological History Hx Seizures Yes: HYPOGLYCEMIA Hx Other Neurological Disorders Yes: NEUROPATHY Cardiovascular History Hx Cardiac Catheterization Yes Hx Congestive Heart Failure Yes Hx Coronary Artery Disease Yes Hx Coronary Stent Yes: x2 Hx Hypertension Yes Hx Myocardial Infarction Yes Hx Peripheral Vascular Disease Yes Hx Vascular Surgery Yes: lt leg bypass Hx Other Cardiac Disorders Yes: ARREST WITH ROSC Respiratory History Hx Other Respiratory Disorders Yes: FLASH PULMONARY EDEMA Gastrointestinal History Hx Gastroesophageal Reflux Disease Yes Hx Gastrointestinal Bleed Yes Hx Polyps Yes Hx Ulcer Yes Genitourinary History Hx Benign Prostatic Hyperplasia Yes Hx Dialysis Yes: OLIGURIC Musculoskeletal History Hx Amputation Yes: (R) BKA 11/2019; (L) AKA Hx Back Pain Yes Hx Fractures Yes: Rib fractures Hx Spinal Surgery Yes: Neurostimulator in place Hematological History Hx Anemia Yes Hx Blood Transfusions Yes Endocrine History Hx Diabetes Yes Hx Other Endocrine Disorders Yes: Renal osteodystrophy, Vitamin d deficiency HEENT History Hx Cataracts Yes: Left eye surgery Integumentary History Hx Skin Disorders No Significant History Reproductive History Hx Reproductive Disorders No Significant History Psychosocial History Hx Anxiety Yes Hx Depression Yes Pain History History of Any Previous or Ongoing No Significant History Instance of Pain Anesthesia History Hx Anesthesia Reactions No Significant History Other History
--- NOTE | 2021-03-30 11:52 | PTOPEVAL ---
Addendum entered by Eunice Morrison, PT, DPT 03/30/21 11:53: PHYSICAL THERAPY EVALUATION AND PLAN OF CARE Patient is scheduled 1x/week for 4 weeks. Original Note: Thank you for referring Ish Corley to [facility].? The patient is scheduled to be seen for therapy? ____x/week for ___ weeks. Please review, sign, date and return this plan of care DONTAE. I agree with and certify that the following plan of care is medically necessary. Referring Physician Date Attending Provider: Chance Maurice MD Evaluation Outpatient Past Medical History Past Medical History Source of Past Medical History Recalled from Previous Visit, Confirmed with Patient/Family Neurological History Hx Seizures Yes: HYPOGLYCEMIA Hx Other Neurological Disorders Yes: NEUROPATHY Cardiovascular History Hx Cardiac Catheterization Yes Hx Congestive Heart Failure Yes Hx Coronary Artery Disease Yes Hx Coronary Stent Yes: x2 Hx Hypertension Yes Hx Myocardial Infarction Yes Hx Peripheral Vascular Disease Yes Hx Vascular Surgery Yes: lt leg bypass Hx Other Cardiac Disorders Yes: ARREST WITH ROSC Respiratory History Hx Other Respiratory Disorders Yes: FLASH PULMONARY EDEMA Gastrointestinal History Hx Gastroesophageal Reflux Disease Yes Hx Gastrointestinal Bleed Yes Hx Polyps Yes Hx Ulcer Yes Genitourinary History Hx Benign Prostatic Hyperplasia Yes Hx Dialysis Yes: OLIGURIC Musculoskeletal History Hx Amputation Yes: (R) BKA 11/2019; (L) AKA Hx Back Pain Yes Hx Fractures Yes: Rib fractures Hx Spinal Surgery Yes: Neurostimulator in place Hematological History Hx Anemia Yes Hx Blood Transfusions Yes Endocrine History Hx Diabetes Yes Hx Other Endocrine Disorders Yes: Renal osteodystrophy, Vitamin d deficiency HEENT History Hx Cataracts Yes: Left eye surgery Integumentary History Hx Skin Disorders No Significant History Reproductive History Hx Reproductive Disorders No Significant History Psychosocial History Hx Anxiety Yes Hx Depression Yes Pain History History of Any Previous or Ongoing No Significant History Instance of Pain Anesthesia History Hx Anesthesia Reactions No Significant History Other History Hx Implanted Device Yes: Neurostimulator Evaluation Information Problem Diagnosis malaise, right BKA, left AKA Onset 3 weaks ago Subjective Information Patient presents today stating Query Text:As Reported By Patient/ that the has had several
--- NOTE | 2021-04-05 09:52 | PCPTNOTE ---
Patient's called & cancelled scheduled appointment this date due to taking Pt to hospital .
--- NOTE | 2021-04-29 13:45 | PTOPEVAL ---
PHYSICAL THERAPY DISCHARGE NOTE Thank you for referring Ish Corley to [facility].? Patient has met therapy potential until he has a prosthetic and is ready for gait training. Please review, sign, date and return this plan of care DONTAE. I agree with and certify that the following plan of care is medically necessary. Referring Physician Date Attending Provider: Chance Maurice MD Discharge Diagnosis malaise, right BKA, left AKA Onset 7 weeks ago Subjective Information Patient states today that he Query Text:As Reported By Patient/ is independent at home at much Family as he can be. He states understanding of HEP and that he needs to perform HEP to prepare for walking with prosthetic. He has a call to the director [employer] to start the process of getting a prosthetic. Pain Score Pain Score 0: Self Report Lower Extremity Range of Motion General Lower Extremity Range of Motion Gross Lower Extremity Range of Motion grossly WNL; lying in supine: Comments left limb rests at -10deg extension but is able to actively and passively move leg to neutral Lower Extremity Muscle Strength Testing Hip Strength Left Hip Flexion Strength 5 Normal Hip Extension Strength 4+ Good + Hip Abduction Strength 5 Normal Muscle Length Testing Muscle Length Testing Raymond Test Shortened Muscles Short (L) Iliopsoas Kelsi's Test Hip Muscle Length (L) WFL Palpation Assessment Palpation Palpation tender to touch, but the incision site is now numb General Exercise General Exercises Side Left Exercise Location LE Exercise Type Active,Resistive,Stretching Exercise Description -supine hip extension pressing Query Text:Record Sets, Reps, left LE into the table Resistance, and Position perform glute set x5 seconds x15 -s/l hip abduction - x20 -prone hip extension -x20 -prone stretch with towel roll under residual limb for hip flexor stretching [id number] due to recommended 20minutes at home -prone press up on elbows for shoulder and back strengthening x10 -prone press plus for serratus
== END 2021-04-30 09:20 | disposition home or self-care (01) ==
LOC: ANHPT 13:00
PROVIDERS: PCP Emergency Medicine; Visit Provider Emergency Medicine
DX: Z47.81 Encounter for orthopedic aftercare following surgical amputation (principal); Z89.612 Acquired absence of left leg above knee; Z89.511 Acquired absence of right leg below knee
CPT/HCPCS: 97110; 97162; 97165

== ENCOUNTER 2021-08-25 21:05 | Emergency (ER) | payer MEDICARE, OTHER, SELFPAY ==
--- NOTE | ~2021-08-25 | CT_ITS ---
EXAMINATION: CT abdomen pelvis wo con DATE: 08/26/2021 01:21 INDICATION: Abdominal pain, vomiting TECHNIQUE: Computed tomography (CT) of the abdomen and pelvis was performed without intravenous contr ast. Automated exposure control and iterative reconstruction technique were employed. Exam dose: 284 .46 mGy-cm total exam DLP. COMPARISON: None. FINDINGS: There is discoid atelectasis or scarring at the lung bases but no pulmonary consolidation. Normal heart size. No pleural or pericardial effusion. There is nonspecific thickening of the wall of the distal esophagus. The liver, gallbladder, bile ducts, spleen, pancreas and adrenal glands are unremarkable. Bilateral probable renal cysts measuring up to 2.1 cm on the left, 10 mm on the right. No urinary tract obstruction or hydroureteronephrosis. The urinary bladder is relatively evacuated, n ot optimally evaluated; there appears to be diffuse bladder wall thickening. There is prostate enlarg ement. No evidence of appendicitis. No bowel obstruction or intraperitoneal free air. There are scattered sm all bowel air-fluid levels without small bowel dilatation, which may be due to mild adynamic ileus or enteritis. There is extensive calcification of the abdominal aorta, celiac artery and branches, superior and inf erior mesenteric arteries and renal arteries. No abdominal aortic aneurysm. There is extensive calcif ication of the iliac and femoral arteries. Left femoral bypass graft. Status post posterior and interbody spinal fusion at L4-S1. IMPRESSION: Severe atherosclerotic calcifications Bilateral renal cysts Nonspecific thickening of the distal esophageal wall Small bowel air-fluid levels without distention, which may be due to mild adynamic ileus or enteritis Reviewed, dictated and finalized at Location A. Reviewed, dictated and finalized at location B. IMPRESSION: Severe atherosclerotic calcifications Bilateral renal cysts Nonspecific thickening of the distal esophageal wall Small bowel air-fluid levels without distention, which may be due to mild adyna sonny ileus or enteritis
[2021-08-25 21:46] VITALS: BP 129/60; PULSE 115; RESP 16; TEMP 36.9; O2SAT 98
[2021-08-25 22:03] LABS: Basophils Absolute Auto 0.1 K/mm3 (0.0-0.1); Basophils Percent Auto 0.7 % (0.2-1.2); Eosinophils Absolute Auto 0.3 K/mm3 (0-0.3); Eosinophils Percent Auto 3.3 % (0-4.4); Hematocrit 41.9 % (42.0-52.0); Hemoglobin 13.7 g/dL (14.0-18.0); Immature Granulocyte Absolute 0.05 K/mm3 (0.00-0.031); Immature Granulocyte Percent A 0.5 % (0-0.5); Lymphocytes Absolute Auto 1.67 K/mm3 (0.9-3.2); Lymphocytes Percent Auto 17.3 % (18.3-44.2); Mean Corpuscular HGB Conc 32.7 g/dl (32-36); Mean Corpuscular Hemoglobin 31.6 pg (26-34); Mean Corpuscular Volume 96.5 fl (80-100); Mean Platelet Volume 9.7 fl (7.4-10.4); Monocytes Absolute Auto 1.1 K/mm3 (0.1-0.6); Monocytes Percent Auto 11.2 % (2.6-8.5); Neutrophils Absolute Auto 6.5 K/mm3 (1.3-6.7); Platelet Count Result 331 k/mm3 (150-375); Red Blood Count 4.34 M/mm3 (4.6-6.20); Red Cell Distribution Width 17.4 % (11.5-14.5); White Blood Count 9.7 K/mm3 (4.5-10.0)
[2021-08-25 22:23] LABS: Alanine Aminotransferase 13 U/L (4-50); Albumin Level 4.7 g/dL (3.5-5.1); Alkaline Phosphatase 127 U/L (38-126); Anion Gap 16 mmol/L (8-16); Aspartate Amino Transferase 28 U/L (17-59); Bilirubin,Total 0.4 mg/dL (0.2-1.3); Blood Urea Nitrogen 40 mg/dL (9-20); Calcium 9.6 mg/dL (8.4-10.2); Carbon Dioxide 32 mmol/L (22-30); Chloride 91 mmol/L (98-107); Estimated CRCL calculation 11 ml/min; Estimated Glomerular Filt Rate 9; Glucose 176 mg/dL (65-110); Lipase 490 U/L (23-300); Potassium 3.9 mmol/L (3.4-5.0); Sodium 139 mmol/L (137-145)
[2021-08-26] MEDS: ONDANSETRON INJ 4 MG/2 ML VIAL IV PUSH (00:11)
--- NOTE | 2021-08-26 01:05 | ED.GENADULT ---
HPI - General Adult General Chief complaint: Nausea/Vomiting/Diarrhea Stated complaint: N/V/D Time Seen by Provider: 08/25/21 23:35 History of Present Illness HPI narrative: Patient is a 55-year-old gentleman well-known to our emergency department who presents the emergency department today with chief complaint of nausea and vomiting. Patient reports he has history of end-stage renal disease on dialysis and normally presents with pulmonary edema. Patient reports that started having some mild epigastric discomfort and had some nausea and vomiting. Patient states he went to dialysis reports not having any shortness of breath is a little bit of uncomfortableness in his epigastric region Related Data Home Medications Medication Instructions Recorded Confirmed Dang-Nilsa 1 tablet PO DAILY 07/23/20 04/10/21 ropinirole 0.25 mg PO DIRECTED 01/11/21 04/10/21 sevelamer carbonate 800 mg PO TID 02/15/21 04/10/21 carvedilol 25 mg tablet 25 mg PO HS 03/02/21 04/10/21 carvedilol 50 mg PO QAM 03/16/21 04/10/21 glucagon See Rx Instructions .ROUTE .COMPLEX 03/27/21 04/10/21 hydralazine 25 mg PO Q4H PRN 04/05/21 04/10/21 Allergies Allergy/AdvReac Type Severity Reaction Status Date / Time scopolamine Allergy Severe Unresponsiv Verified 08/25/21 23:35 e Review of Systems Review of Systems: A 10 system review of systems was completed on the patient and is negative except for what is stated in the HPI. Nursing and ancillary documentation was reviewed. [facility] Past Medical History Medical History Amputation above knee Anxiety Benign prostatic hyperplasia Bradycardic cardiac arrest (~07/23/20) In the setting of severe hyperkalemia, acute pulmonary edema, and respiratory failure Chronic anemia Congestive heart failure Echo 03/06/2021 1. Complete two-dimensional, color flow and Doppler transthoracic echocardiogram is performed. 2. Left ventricular chamber dimension is mildly enlarged. 3. Left ventricular systolic function is mildly reduced, estimated at 55-60%. 4. There is severely increased left ventricular wall thickness. Speckled appearance of the myocardium. 5. The left ventricular diastolic function is grade I diastolic dysfunction. 6. Left atrial chamber dimension is mildly enlarged. 7. There is moderate aortic valve sclerosis. 8. The mitral valve annulus is severely calcified. 9. There is mild mitral valve regurgitation. 10. The mitral valve has thickened leaflets. 11. There is mild tricuspid valve regurgitation. 12. There is mild pulmonic regurgitation. Coronary artery disease With non STEMI in December 2019, with stent placed to the LAD. Depression with anxiety End-stage renal disease on hemodialysis Erythropoietin deficiency anemia Gastric ulcer On endoscopy per Dr. Pacheco in June 2020. Gastroesophageal reflux disease Hypertension Noncompliance Renal osteodystrophy Seizure Secondary to hypoglycemia. ST elevation myocardial infarction (STEMI) (~06/26/20) Secondary to abrupt stent thrombosis of the LAD. Tobacco dependence Type 1 diabetes mellitus Diagnosed at the age of 10. Complicated by retinopathy, nephropathy, and neuropathy. Hemoglobin A1c was 7.6% in July 2020. Vitamin D deficiency disease Surgical History Surgical History History of endoscopy (~06/27/20) History of femoropopliteal bypass 02/04/21 left common femoral endarterectomy with left femoral to below-knee popliteal artery bypass History of heart artery stent Stent in the LAD in December 2019. Patient had abrupt stent thrombosis of the previously placed stent to the LAD on June 26, 2020 left coronary with extraction thrombectomy and stenting distal to the original stent with upsizing of the original stent. History of spinal surgery Neurostimulator in place. History of transmetatarsal amputation of left f
[2021-08-26 01:50] VITALS: BP 132/67; PULSE 102; RESP 18; O2SAT 99
--- NOTE | 2021-08-26 01:58 | PC.NURSE ---
pt states he feels better and wants to be discharged. EDP aware and okay with that.
== END 2021-08-26 01:50 | disposition home or self-care (01) ==
PROVIDERS: Emergency Medicine; Emergency Provider Emergency Medicine; PCP Emergency Medicine
DX: R11.2 Nausea with vomiting, unspecified (principal); I13.2 Hypertensive heart and chronic kidney disease with heart failure and with stage 5 chronic kidney disease, or end stage renal disease; N18.6 End stage renal disease; I50.9 Heart failure, unspecified; E10.22 Type 1 diabetes mellitus with diabetic chronic kidney disease; E10.319 Type 1 diabetes mellitus with unspecified diabetic retinopathy without macular edema; E10.40 Type 1 diabetes mellitus with diabetic neuropathy, unspecified; Z99.2 Dependence on renal dialysis; I25.10 Atherosclerotic heart disease of native coronary artery without angina pectoris; I25.2 Old myocardial infarction; D63.1 Anemia in chronic kidney disease; K21.9 Gastro-esophageal reflux disease without esophagitis; Q78.9 Osteochondrodysplasia, unspecified; F41.8 Other specified anxiety disorders; Z95.5 Presence of coronary angioplasty implant and graft; Z89.612 Acquired absence of left leg above knee; Z89.511 Acquired absence of right leg below knee; Z98.49 Cataract extraction status, unspecified eye; Z87.891 Personal history of nicotine dependence; Z79.4 Long term (current) use of insulin
CPT/HCPCS: 36415; 74176; 80053; 83690; 85025; 96374; 99284; J2405

== ENCOUNTER 2021-09-09 13:00 | Outpatient (RCR) | payer MEDICARE, MEDICAID, SELFPAY ==
--- NOTE | 2021-08-18 10:21 | PTOPEVAL ---
PHYSICAL THERAPY EVALUATION AND PLAN OF CARE 08-18-21 Thank you for referring Ish Corley to [facility].? He is scheduled to be seen for therapy? 1 x/week for 6 weeks. Please review, sign, date and return this plan of care DONTAE. I agree with and certify that the following plan of care is medically necessary. Referring Physician Date Attending Provider: Chance Maurice MD PT Outpatient Evaluation Document 08/18/21 09:10 ROSY (Rec: 08/18/21 10:21 ROSY [id number]) Past Medical History Source of Past Medical History Recalled from Previous Visit, Confirmed with Patient/Family Neurological History Hx Seizures Yes: HYPOGLYCEMIA Hx Other Neurological Disorders Yes: NEUROPATHY Cardiovascular History Hx Cardiac Catheterization Yes Hx Congestive Heart Failure Yes Hx Coronary Artery Disease Yes Hx Coronary Stent Yes: x2 Hx Hypertension Yes: meds Hx Myocardial Infarction Yes Hx Peripheral Vascular Disease Yes Hx Vascular Surgery Yes: lt leg bypass Hx Other Cardiac Disorders Yes: ARREST WITH ROSC Respiratory History Hx Other Respiratory Disorders Yes: FLASH PULMONARY EDEMA Gastrointestinal History Hx Gastroesophageal Reflux Disease Yes Hx Gastrointestinal Bleed Yes Hx Polyps Yes Hx Ulcer Yes Genitourinary History Hx Benign Prostatic Hyperplasia Yes Hx Dialysis Yes: 4x/wk dialysis Musculoskeletal History Hx Amputation Yes: (R) BKA 11/2019; (L) AKA Hx Back Pain Yes Hx Fractures Yes: Rib fractures Hx Orthopedic Surgery Yes: lumbar fusion, lumbar laminectomy Hx Spinal Surgery Yes: Neurostimulator in place for back pain-- no longer working, Hematological History Hx Anemia Yes Hx Blood Transfusions Yes Endocrine History Hx Diabetes Yes Hx Other Endocrine Disorders Yes: Renal osteodystrophy, Vitamin d deficiency HEENT History Hx Cataracts Yes: Left eye surgery Integumentary History Hx Skin Disorders No Significant History Reproductive History Hx Reproductive Disorders No Significant History Psychosocial History Hx Anxiety Yes Hx Depression Yes Pain History History of Any Previous or Ongoing No Significant History Instance of Pain Anesthesia History Hx Anesthesia Reactions No Significant History Other History Hx Implanted Device Yes: Neurostimulator Evaluation Information Problem Melly
--- NOTE | 2021-09-14 09:42 | PCPTNOTE ---
Patient arrived to appointment and said he will not do very well today because he had an upset stomach all night and did get much sleep. Discussed with patient about holding on treatment today based on his symptoms. Patient is to call and reschedule appointment for later this week.
--- NOTE | 2021-09-23 16:10 | PCPTNOTE ---
pt called and canceled today's reeval due to illness.
--- NOTE | 2021-10-12 13:46 | PCPTNOTE ---
PHYSICAL THERAPY DISCHARGE 10-12-21 Attending Provider: Chance Maurice MD Patient:Ish Corley Date of :1965 Mr. Corley has not returned for any further treatments since 09/09/2021, therefore he will be discharged at this time. He received 3 PT sessions, from August 18 to , and he called/canceled 2 appointments. The goals were not assessed. Thank you for referring Ish to [facility]. Please review, sign, date and return this discharge summary DONTAE. I have been updated about the patient's current status and I agree with discharge from the above service at this time. Referring Physician Date
== END 2021-10-13 08:56 | disposition home or self-care (01) ==
LOC: ANHPT 13:00
PROVIDERS: PCP Emergency Medicine; Visit Provider Emergency Medicine
DX: Z47.81 Encounter for orthopedic aftercare following surgical amputation (principal); Z89.612 Acquired absence of left leg above knee
CPT/HCPCS: 97110; 97116; 97161; 97530

== ENCOUNTER 2021-12-27 18:44 | Emergency (ER) | payer OTHER, SELFPAY ==
--- NOTE | ~2021-12-27 | XR_ITS ---
EXAMINATION: XR chest 1V portable DATE: 12/27/2021 19:27 INDICATION: Dyspnea TECHNIQUE: frontal view of the chest was obtained. COMPARISON: Chest radiograph dated 04/10/2021 FINDINGS: Subtly increased interstitial pattern in the bilateral lower lung zones with some peribronchial cuffi ng versus wall thickening. No airspace opacities, pleural effusion or pneumothorax. The cardiomediast inal silhouette is normal. IMPRESSION: 1. Subtle increased interstitial pattern in the lower lung zones with some peribronchial cuffing vers us bronchial wall thickening. This most likely represents mild pulmonary edema with differential incl uding bronchitis or reactive airway disease/asthma. Reviewed, dictated and finalized at location A. ON FORMING MACHINE ADJUSTER IMPRESSION: 1. Subtle increased interstitial pattern in the lower lung zones with some kamini bronchial cuffing versus bronchial wall thickening. This most likely represents mild pulmonary edema with differential including bronchitis or reactive airway disease/asthma.
[2021-12-27 18:50] VITALS: BP 180/96; PULSE 101; RESP 18; TEMP 36.4; O2SAT 100
[2021-12-27 19:11] VITALS: PULSE 113
--- NOTE | 2021-12-27 19:11 | ECG_ITS ---
Measurements Intervals [place] Rate: 100 P: 62 FL: 162 QRS: 66 QRSD: 85 T: 76 QT: 375 QTc: 485 Interpretive Statements SINUS TACHYCARDIA VOLTAGE CRITERIA FOR LVH BORDERLINE R WAVE PROGRESSION, ANTERIOR LEADS BORDERLINE ST-T WAVE ABNORMALITY- HIGH LATERAL LEADS BASELINE WANDER- I, II, III BORDERLINE ECG Electronically Signed On 12-27-2021 20:17:12 CLASS B DRIVER by Edmond Elias D.O.
[2021-12-27 19:14] VITALS: BP 163/78; PULSE 100; RESP 17; O2SAT 96
[2021-12-27 19:40] LABS: Basophils Absolute Auto 0.1 K/mm3 (0.0-0.1); Basophils Percent Auto 0.5 % (0.2-1.2); Eosinophils Absolute Auto 0.4 K/mm3 (0-0.3); Hematocrit 31.2 % (42.0-52.0); Hemoglobin 10.2 g/dL (14.0-18.0); Immature Granulocyte Absolute 0.02 K/mm3 (0.00-0.031); Immature Granulocyte Percent A 0.2 % (0-0.5); Lymphocytes Absolute Auto 1.32 K/mm3 (0.9-3.2); Mean Corpuscular HGB Conc 32.7 g/dl (32-36); Mean Corpuscular Hemoglobin 32.2 pg (26-34); Mean Corpuscular Volume 98.4 fl (80-100); Mean Platelet Volume 9.7 fl (7.4-10.4); Monocytes Percent Auto 8.7 % (2.6-8.5); Neutrophils Absolute Auto 8.2 K/mm3 (1.3-6.7); Neutrophils Percent Auto 74.6 % (45.5-73.1); Platelet Count Result 331 k/mm3 (150-375); Red Blood Count 3.17 M/mm3 (4.6-6.20); Red Cell Distribution Width 16.4 % (11.5-14.5)
[2021-12-27 19:50] LABS: Alanine Aminotransferase 13 U/L (4-50); Alkaline Phosphatase 125 U/L (38-126); Anion Gap 8 mmol/L (8-16); Aspartate Amino Transferase 29 U/L (17-59); Bilirubin,Total 0.5 mg/dL (0.2-1.3); Blood Urea Nitrogen 20 mg/dL (9-20); Carbon Dioxide 31 mmol/L (22-30); Chloride 97 mmol/L (98-107); Estimated CRCL calculation 13 ml/min; Estimated Glomerular Filt Rate 13; Glucose 202 mg/dL (65-110); Potassium 4.3 mmol/L (3.4-5.0); Sodium 136 mmol/L (137-145)
[2021-12-27] MEDS: LORazepam INJ (*CRX) 2 MG/ML VIAL 1 MG IV PUSH (20:29)
[2021-12-27 20:37] VITALS: BP 152/80; PULSE 78; RESP 16; O2SAT 96
--- NOTE | 2021-12-27 20:39 | PC.NURSE ---
pt leaving the Dept d/t wish to smoking. pt not listening to staff, stating that, it just makes more work for you, I'll be right back. Iv removed per policy. pt will be dispo as El[facility] after being triaged.
== END 2021-12-27 20:43 | disposition left against medical advice (07) ==
PROVIDERS: Emergency Provider Emergency Medicine; PCP Emergency Medicine
DX: R06.02 Shortness of breath (principal)
CPT/HCPCS: 36415; 71045; 80053; 85025; 93005; 99199; J2060

== ENCOUNTER 2021-12-27 20:46 | Emergency (ER) | payer OTHER, SELFPAY ==
--- NOTE | 2021-12-27 21:47 | PC.NURSE ---
Addendum entered by Dylan Pollack RN 12/27/21 21:47: pt seen getting in car at this time. Original Note: pt when offered to be triaged states dont even bother, my is on the way to get me.
== END 2021-12-27 21:47 | disposition left against medical advice (07) ==
PROVIDERS: PCP Emergency Medicine
DX: Z53.21 Procedure and treatment not carried out due to patient leaving prior to being seen by health care provider (principal)
CPT/HCPCS: 99199

== ENCOUNTER 2021-12-29 08:35 | Emergency (ER) | payer OTHER, SELFPAY ==
[2021-12-29] VITALS (16 sets, daily range): BP systolic 168–195; BP diastolic 78–92; PULSE 94–104; RESP 19–30; TEMP 36.8; O2SAT 97–100
--- NOTE | ~2021-12-29 | XR_ITS ---
XR finger 4th LT min 2V DATE: 12/29/2021 09:38 INDICATION: Distal digit injury TECHNIQUE: 3 views COMPARISON: None FINDINGS: There are multiple small bony densities surrounding the entire circumference of the head an d neck of the middle phalanx of the fourth digit. There is underlying irregularity of the head and ne ck, particularly medially and laterally. These may be due to fracture. Differential diagnosis include s osteomyelitis. The distal interphalangeal joint appears intact and no loss of cortex is noted at the apposing articu lar margins of the middle and distal phalanges. No other fracture or dislocation of the fourth digit is evident. IMPRESSION: Probable fracture at the head and neck of the middle phalanx, with multiple small fractur e fragments surrounding the the neck of the middle phalanx; differential diagnosis includes osteomyel itis, but this less likely given the clinical history of trauma at this location Reviewed, dictated and finalized at location B. OFILMER IMPRESSION: Probable fracture at the head and neck of the middle phalanx, with multiple small fracture fragments surrounding the the neck of the middle phalan x; differential diagnosis includes osteomyelitis, but this less likely given th e clinical history of trauma at this location
--- NOTE | ~2021-12-29 | XR_ITS ---
EXAMINATION: XR chest 1V portable DATE: 12/29/2021 09:38 INDICATION: Shortness of breath. TECHNIQUE: A single frontal view of the chest was obtained on 2 radiographs. COMPARISON: Chest single view 12/27/2021, chest CT 03/11/2021 FINDINGS: The lung volumes are normal. There is a worsened diffuse interstitial pattern in the lungs, consistent with mild pulmonary edema. No pleural effusion or pneumothorax. The heart size is normal. IMPRESSION: 1. Mild pulmonary edema. Reviewed, dictated and finalized at location A. IOLOGIST IMPRESSION: 1. Mild pulmonary edema.
--- NOTE | 2021-12-29 09:14 | ECG_ITS ---
Measurements Intervals [place] Rate: 99 P: 63 PA: 152 QRS: 75 QRSD: 90 T: 80 QT: 374 QTc: 482 Interpretive Statements SINUS RHYTHM BORDERLINE R WAVE PROGRESSION, ANTERIOR LEADS BASELINE WANDER- I, V4-V6 BORDERLINE ECG Electronically Signed On 12-29-2021 10:23:55 CORRAL BOSS by Edmond Elias D.O.
[2021-12-29 09:34] LABS: Basophils Absolute Auto 0.1 K/mm3 (0.0-0.1); Basophils Percent Auto 0.6 % (0.2-1.2); Eosinophils Absolute Auto 0.5 K/mm3 (0-0.3); Eosinophils Percent Auto 3.8 % (0-4.4); Hematocrit 34.3 % (42.0-52.0); Hemoglobin 10.9 g/dL (14.0-18.0); Immature Granulocyte Absolute 0.05 K/mm3 (0.00-0.031); Immature Granulocyte Percent A 0.4 % (0-0.5); Lymphocytes Percent Auto 11.5 % (18.3-44.2); Mean Corpuscular HGB Conc 31.8 g/dl (32-36); Mean Corpuscular Hemoglobin 31.9 pg (26-34); Mean Corpuscular Volume 100.3 fl (80-100); Mean Platelet Volume 9.4 fl (7.4-10.4); Monocytes Percent Auto 7.2 % (2.6-8.5); Neutrophils Absolute Auto 10.6 K/mm3 (1.3-6.7); Neutrophils Percent Auto 76.5 % (45.5-73.1); Platelet Count Result 350 k/mm3 (150-375); Red Blood Count 3.42 M/mm3 (4.6-6.20); Red Cell Distribution Width 16.4 % (11.5-14.5); White Blood Count 13.9 K/mm3 (4.5-10.0)
[2021-12-29 09:40] LABS: Alveolar/Arterial O2 Gradient 80.3 mmHg; Device NASAL CANNULA; Fractional Inspired Oxygen 28 %; HCO3 ABG 25.6 mEq/l (22.0-26.0); Modified Allen's Test Pass; Oxygen Content ABG 14.1 %vol (16.0-22.0); Oxygen Saturation ABG 94.6 % (95.0-100.0); Oxyhemoglobin 89.3 % THb (90.0-100.0); PCO2 ABG 40.7 mmHg (35.0-45.0); PO2 ABG 71.3 mmHg (80.0-100.0); PO2 FiO2 Ratio Arterial Blood 2.55 %; Site Drawn RIGHT RADIAL; Total Hemoglobin 11.2 g/dL (12.0-18.0); pH ABG 7.416 (7.350-7.450)
[2021-12-29 09:45] LABS: Prothrombin Time 12.7 Seconds (11.1-14.7)
[2021-12-29 09:46] LABS: Partial Thromboplastin Time 40.5 SECONDS (22.3-36.8)
[2021-12-29 09:47] LABS: Alanine Aminotransferase 14 U/L (4-50); Albumin Level 4.2 g/dL (3.5-5.1); Alkaline Phosphatase 126 U/L (38-126); Anion Gap 17 mmol/L (8-16); Aspartate Amino Transferase 33 U/L (17-59); Bilirubin,Total 0.5 mg/dL (0.2-1.3); Blood Urea Nitrogen 48 mg/dL (9-20); Calcium 8.7 mg/dL (8.4-10.2); Carbon Dioxide 26 mmol/L (22-30); Chloride 94 mmol/L (98-107); Estimated CRCL calculation 12 ml/min; Estimated Glomerular Filt Rate 6; Glucose 222 mg/dL (65-110); Potassium 4.5 mmol/L (3.4-5.0); Sodium 137 mmol/L (137-145)
[2021-12-29 09:59] LABS: NT Pro B Type Natriuretic Pept > 35000 pg/mL (5-100)
--- NOTE | 2021-12-29 10:13 | ED.SOB ---
HPI - SOB/Dyspnea General Chief Complaint: Shortness of Breath/Dyspnea Stated Complaint: SOB Time Seen by Provider: 12/29/21 09:13 Source: patient Mode of arrival: EMS Limitations: no limitations History of Present Illness HPI Narrative: This is a 56 year old male that presents to the ER for shortness of breath. Noted since this morning. History of ESRD on dialysis. Last treatment was yesterday. No associated symptoms. Also notes an injury to the left fourth finger a couple of days ago with pain and swelling to the area. Denies fever, cough, chest pain. Related Data Home Medications Medication Instructions Recorded Confirmed Dang-Nilsa 1 tablet PO DAILY 07/23/20 09/21/21 ropinirole 0.25 mg PO DIRECTED 01/11/21 09/21/21 sevelamer carbonate 800 mg PO TID 02/15/21 09/21/21 carvedilol 25 mg tablet 25 mg PO HS 03/02/21 09/21/21 carvedilol 50 mg PO QAM 03/16/21 09/21/21 glucagon See Rx Instructions .ROUTE .COMPLEX 03/27/21 09/21/21 hydralazine 25 mg PO Q4H PRN 04/05/21 09/21/21 Allergies Allergy/AdvReac Type Severity Reaction Status Date / Time scopolamine Allergy Severe Unresponsiv Verified 12/29/21 09:35 e Review of Systems Review of Systems: CONSTITUTIONAL: Denies fever CARDIOVASCULAR: Denies chest pain RESPIRATORY: Reports dyspnea. Denies cough GASTROINTESTINAL: Denies abdominal pain, nausea, vomiting MUSCULOSKELETAL: Reports joint pain, and myalgia. All systems reviewed & are unremarkable except as noted in HPI and below [facility] Past Medical History Medical History Amputation above knee Anxiety Benign prostatic hyperplasia Bradycardic cardiac arrest (~07/23/20) In the setting of severe hyperkalemia, acute pulmonary edema, and respiratory failure Chronic anemia Congestive heart failure Echo 03/06/2021 1. Complete two-dimensional, color flow and Doppler transthoracic echocardiogram is performed. 2. Left ventricular chamber dimension is mildly enlarged. 3. Left ventricular systolic function is mildly reduced, estimated at 55-60%. 4. There is severely increased left ventricular wall thickness. Speckled appearance of the myocardium. 5. The left ventricular diastolic function is grade I diastolic dysfunction. 6. Left atrial chamber dimension is mildly enlarged. 7. There is moderate aortic valve sclerosis. 8. The mitral valve annulus is severely calcified. 9. There is mild mitral valve regurgitation. 10. The mitral valve has thickened leaflets. 11. There is mild tricuspid valve regurgitation. 12. There is mild pulmonic regurgitation. Coronary artery disease With non STEMI in December 2019, with stent placed to the LAD. Depression with anxiety End-stage renal disease on hemodialysis Erythropoietin deficiency anemia Gastric ulcer On endoscopy per Dr. Pacheco in June 2020. Gastroesophageal reflux disease Hypertension Noncompliance Renal osteodystrophy Seizure Secondary to hypoglycemia. ST elevation myocardial infarction (STEMI) (~06/26/20) Secondary to abrupt stent thrombosis of the LAD. Tobacco dependence Type 1 diabetes mellitus Diagnosed at the age of 10. Complicated by retinopathy, nephropathy, and neuropathy. Hemoglobin A1c was 7.6% in July 2020. Vitamin D deficiency disease Surgical History Surgical History History of endoscopy (~06/27/20) History of femoropopliteal bypass 02/04/21 left common femoral endarterectomy with left femoral to below-knee popliteal artery bypass History of heart artery stent Stent in the LAD in December 2019. Patient had abrupt stent thrombosis of the previously placed stent to the LAD on June 26, 2020 left coronary with extraction thrombectomy and stenting distal to the original stent with upsizing of the original stent. History of spinal surgery Neurostimulator in place. History of transmetatarsal amputation of left foot 02/04/21 at [facility]
--- NOTE | 2021-12-29 11:10 | PC.NURSE ---
Patient report given to ADILENE Farris. All questions answered and care of patient transferred.
== END 2021-12-29 12:05 | disposition home or self-care (01) ==
PROVIDERS: Physician Assistant; Emergency Provider Emergency Medicine; PCP Emergency Medicine
DX: S62.655A Nondisplaced fracture of middle phalanx of left ring finger, initial encounter for closed fracture (principal); R06.02 Shortness of breath; I13.2 Hypertensive heart and chronic kidney disease with heart failure and with stage 5 chronic kidney disease, or end stage renal disease; N18.6 End stage renal disease; I50.9 Heart failure, unspecified; Z99.2 Dependence on renal dialysis; F41.9 Anxiety disorder, unspecified; G40.909 Epilepsy, unspecified, not intractable, without status epilepticus; X58.XXXA Exposure to other specified factors, initial encounter
CPT/HCPCS: 29130; 36415; 36600; 71045; 73140; 80053; 82805; 83880; 85025; 85610; 85730; 93005; 99284

== ENCOUNTER 2022-03-19 17:49 | Emergency (ER) | payer OTHER, SELFPAY ==
--- NOTE | ~2022-03-19 | XR_ITS ---
EXAMINATION: XR chest 1V portable Exam Date/Time: 03/19/2022 20:05 CDT CLINICAL HISTORY: cough Comparison: 12/29/2021. RESULT: Lines, tubes, and devices: Coronary stents. Lungs and pleura: Diffuse reticular pattern, somewhat improved since the prior study. Cardiomediastinal silhouette: Stable cardiomediastinal silhouette. Other: No acute osseous or upper abdominal finding. IMPRESSION: Pulmonary findings may reflect mild initial pulmonary edema in the appropriate clinical context. Reviewed, dictated and finalized at location K.
--- NOTE | ~2022-03-19 | CT_ITS ---
EXAMINATION: CT abdomen pelvis wo con DATE: 03/19/2022 20:30 INDICATION: abdominal pain TECHNIQUE: Computed tomography (CT) of the abdomen and pelvis was performed without intravenous contr ast. Automated exposure control and iterative reconstruction technique were employed. The dose-length product was 209.84 mGy-cm. COMPARISON: 08/26/2021 FINDINGS: Exam is severely limited by motion artifact. Lower thorax: Coronary artery and mitral annulus calcifications. Liver: Right lobe hypodensity, too small to characterize but likely represents a cyst. Biliary/Gallbladder: Not visualized. No bile duct dilation. Spleen: Normal. Pancreas: No mass or duct dilation. Adrenals:No mass. Kidneys: Bilateral atrophy. Left upper pole cyst. GI tract: No small or large bowel dilation. Appendix not visualized. Mesentery/Peritoneum: No ascites, mass, or free air. Retroperitoneum: No mass. Severe atherosclerotic calcification. Pelvis: Collapsed urinary bladder. Prostatomegaly.. Soft Tissues: Stimulator in the left paraspinal musculature. Left femoral bypass graft. Bones: No acute osseous finding. Lumbar fusion. IMPRESSION: Exam is severely limited by motion artifact, particularly in the evaluation of the upper abdominal or anitha. Within that constraint, no definite acute abdominopelvic process is detected. Reviewed, dictated and finalized at location K. IMPRESSION: Exam is severely limited by motion artifact, particularly in the evaluation of the upper abdominal organs. Within that constraint, no definite acute abdominop elvic process is detected.
--- NOTE | 2022-03-19 18:34 | PC.NURSE ---
pt while awaiting triage, eating multiple snacks from vending machine
[2022-03-19 18:37] VITALS: BP 154/68; PULSE 117; RESP 18; TEMP 36.1; O2SAT 99
[2022-03-19 18:48] LABS: Glucose Point of Care 226 mg/dl (65-105)
[2022-03-19 19:30] VITALS: BP 156/65; PULSE 100; RESP 16; O2SAT 96
[2022-03-19] MEDS: MORPHINE SULFATE (*CRX) 4 MG/ML INJ IV PUSH (20:11)
[2022-03-19] MEDS: SODIUM CHLORIDE 0.9% IV 500 ML 999 ML IV CONT (20:11)
[2022-03-19] MEDS: ONDANSETRON INJ 4 MG/2 ML VIAL IV PUSH (20:11)
[2022-03-19 20:22] LABS: Basophils Absolute Auto 0.1 K/mm3 (0.0-0.1); Basophils Percent Auto 0.8 % (0.2-1.2); Eosinophils Absolute Auto 0.2 K/mm3 (0-0.3); Eosinophils Percent Auto 2.4 % (0-4.4); Hematocrit 43.4 % (42.0-52.0); Hemoglobin 13.5 g/dL (14.0-18.0); Immature Granulocyte Absolute 0.02 K/mm3 (0.00-0.031); Immature Granulocyte Percent A 0.2 % (0-0.5); Lymphocytes Absolute Auto 1.54 K/mm3 (0.9-3.2); Lymphocytes Percent Auto 18.4 % (18.3-44.2); Mean Corpuscular HGB Conc 31.1 g/dl (32-36); Mean Corpuscular Hemoglobin 31.5 pg (26-34); Mean Corpuscular Volume 101.2 fl (80-100); Monocytes Absolute Auto 0.5 K/mm3 (0.1-0.6); Monocytes Percent Auto 6.2 % (2.6-8.5); Platelet Count Result 359 k/mm3 (150-375); Red Blood Count 4.29 M/mm3 (4.6-6.20); Red Cell Distribution Width 16.1 % (11.5-14.5); White Blood Count 8.4 K/mm3 (4.5-10.0)
[2022-03-19 20:30] VITALS: BP 133/81; PULSE 100; RESP 20; O2SAT 96
[2022-03-19 20:31] LABS: Lactic Acid Reflex 1.6 mmol/L (0.7-2.0)
[2022-03-19 20:32] LABS: Alanine Aminotransferase 13 U/L (4-50); Albumin Level 4.6 g/dL (3.5-5.1); Alkaline Phosphatase 170 U/L (38-126); Anion Gap 12 mmol/L (8-16); Aspartate Amino Transferase 33 U/L (17-59); Bilirubin,Total 0.4 mg/dL (0.2-1.3); Blood Urea Nitrogen 22 mg/dL (9-20); Calcium 9.3 mg/dL (8.4-10.2); Carbon Dioxide 32 mmol/L (22-30); Chloride 96 mmol/L (98-107); Estimated CRCL calculation 13 ml/min; Estimated Glomerular Filt Rate 12; Glucose 245 mg/dL (65-110); Lipase 309 U/L (23-300); Sodium 140 mmol/L (137-145)
[2022-03-19 20:38] LABS: Beta-Hydroxybutyrate/Acetoacetate 0.43 mmol/L (0.02-0.27)
--- NOTE | 2022-03-19 21:17 | ED.GENADULT ---
HPI - General Adult General Chief complaint: Abdominal Pain Stated complaint: hyperglycemia Time Seen by Provider: 03/19/22 19:41 History of Present Illness HPI narrative: Patient is a 56-year-old gentleman who presents the emergency department with chief complaint of abdominal pain. Patient reports that has been having diarrhea and abdominal discomfort for several days now reports that he has been concerned that he may have C. difficile patient states that he had a large bowel movement prior to coming to the emergency department. Patient states that he has had his normal rounds of dialysis had no new antibiotics. Patient states that pain is not improved by anything or is worsened by anything. Related Data Home Medications Medication Instructions Recorded Confirmed Dang-Nilsa 1 tablet PO DAILY 07/23/20 09/21/21 ropinirole 0.25 mg PO DIRECTED 01/11/21 09/21/21 sevelamer carbonate 800 mg PO TID 02/15/21 09/21/21 carvedilol 25 mg tablet 25 mg PO HS 03/02/21 09/21/21 carvedilol 50 mg PO QAM 03/16/21 09/21/21 glucagon See Rx Instructions .ROUTE .COMPLEX 03/27/21 09/21/21 hydralazine 25 mg PO Q4H PRN 04/05/21 09/21/21 Allergies Allergy/AdvReac Type Severity Reaction Status Date / Time scopolamine Allergy Severe Unresponsiv Verified 12/29/21 09:35 e Review of Systems Review of Systems: A 10 system review of systems was completed on the patient and is negative except for what is stated in the HPI. Nursing and ancillary documentation was reviewed. [facility] Past Medical History Medical History Amputation above knee Anxiety Benign prostatic hyperplasia Bradycardic cardiac arrest (~07/23/20) In the setting of severe hyperkalemia, acute pulmonary edema, and respiratory failure Chronic anemia Congestive heart failure Echo 03/06/2021 1. Complete two-dimensional, color flow and Doppler transthoracic echocardiogram is performed. 2. Left ventricular chamber dimension is mildly enlarged. 3. Left ventricular systolic function is mildly reduced, estimated at 55-60%. 4. There is severely increased left ventricular wall thickness. Speckled appearance of the myocardium. 5. The left ventricular diastolic function is grade I diastolic dysfunction. 6. Left atrial chamber dimension is mildly enlarged. 7. There is moderate aortic valve sclerosis. 8. The mitral valve annulus is severely calcified. 9. There is mild mitral valve regurgitation. 10. The mitral valve has thickened leaflets. 11. There is mild tricuspid valve regurgitation. 12. There is mild pulmonic regurgitation. Coronary artery disease With non STEMI in December 2019, with stent placed to the LAD. Depression with anxiety End-stage renal disease on hemodialysis Erythropoietin deficiency anemia Gastric ulcer On endoscopy per Dr. Pacheco in June 2020. Gastroesophageal reflux disease Hypertension Noncompliance Renal osteodystrophy Seizure Secondary to hypoglycemia. ST elevation myocardial infarction (STEMI) (~06/26/20) Secondary to abrupt stent thrombosis of the LAD. Tobacco dependence Type 1 diabetes mellitus Diagnosed at the age of 10. Complicated by retinopathy, nephropathy, and neuropathy. Hemoglobin A1c was 7.6% in July 2020. Vitamin D deficiency disease Surgical History Surgical History History of endoscopy (~06/27/20) History of femoropopliteal bypass 02/04/21 left common femoral endarterectomy with left femoral to below-knee popliteal artery bypass History of heart artery stent Stent in the LAD in December 2019. Patient had abrupt stent thrombosis of the previously placed stent to the LAD on June 26, 2020 left coronary with extraction thrombectomy and stenting distal to the original stent with upsizing of the original stent. History of spinal surgery Neurostimulator in place. History of transmetatarsal amputation of le
[2022-03-19 21:30] VITALS: BP 149/72; PULSE 80; RESP 16; O2SAT 96
[2022-03-19 22:40] VITALS: BP 149/72; PULSE 87; RESP 16; O2SAT 99
== END 2022-03-19 22:40 | disposition home or self-care (01) ==
PROVIDERS: Emergency Provider Emergency Medicine; PCP Emergency Medicine
DX: R10.84 Generalized abdominal pain (principal); R19.7 Diarrhea, unspecified; E10.22 Type 1 diabetes mellitus with diabetic chronic kidney disease; I13.2 Hypertensive heart and chronic kidney disease with heart failure and with stage 5 chronic kidney disease, or end stage renal disease; I50.9 Heart failure, unspecified; N18.6 End stage renal disease; Z99.2 Dependence on renal dialysis; E10.319 Type 1 diabetes mellitus with unspecified diabetic retinopathy without macular edema; E10.21 Type 1 diabetes mellitus with diabetic nephropathy; E10.40 Type 1 diabetes mellitus with diabetic neuropathy, unspecified; N25.0 Renal osteodystrophy; N40.0 Benign prostatic hyperplasia without lower urinary tract symptoms; D64.9 Anemia, unspecified; I25.10 Atherosclerotic heart disease of native coronary artery without angina pectoris; I25.2 Old myocardial infarction; K21.9 Gastro-esophageal reflux disease without esophagitis; F41.8 Other specified anxiety disorders; Z79.4 Long term (current) use of insulin; Z95.5 Presence of coronary angioplasty implant and graft; Z96.82 Presence of neurostimulator; Z89.612 Acquired absence of left leg above knee; Z89.511 Acquired absence of right leg below knee; Z98.49 Cataract extraction status, unspecified eye; F17.210 Nicotine dependence, cigarettes, uncomplicated
CPT/HCPCS: 36415; 71045; 74176; 80053; 82010; 82948; 83605; 83690; 85025; 96374; 96375; 99284; J2270; J2405; J7040

== ENCOUNTER 2022-04-25 08:15 | Emergency (ER) | payer OTHER, SELFPAY ==
--- NOTE | ~2022-04-25 | CT_ITS ---
EXAMINATION: CT brain wo con DATE: 04/25/2022 09:20 INDICATION: Fell out of wheelchair 3 days ago. Confusion. TECHNIQUE: Computed tomography (CT) of the head was performed without intravenous contrast. The mA wa s adjusted according to patient size. Iterative reconstruction technique was employed. Exam dose: 60 5.33 mGy-cm total exam DLP. COMPARISON: None FINDINGS: 10/17/2020 CT brain IMPRESSION: Old left frontal cerebrovascular infarct. No intracranial mass lesion or hemorrhage or cerebrovascular accident is noted otherwise. Bilateral vertebral artery and carotid siphon internal carotid artery calcifications. Is nonspecific diminished attenuation cerebral white matter, likely due to chronic small vessel ischemic changes. No subdural or epidural hematoma. No fracture or bone destruction of the cranial vault. Paranasal sinuses are unremarkable. There is op acification of a minority of the left mastoid air cells. Normal development and aeration of the bilat eral mastoid air cells otherwise. IMPRESSION: Old left frontal cerebrovascular accident Cerebral atherosclerosis and chronic small vessel ischemic changes of cerebral white matter No acute intracranial finding Reviewed, dictated and finalized at Location A. Reviewed, dictated and finalized at location A. IMPRESSION: Old left frontal cerebrovascular infarct. No intracranial mass lesion or hemorrhage or cerebrovascular accident is noted otherwise. Bilateral vertebral artery and carotid siphon internal carotid artery calcifica tions. Is nonspecific diminished attenuation cerebral white matter, likely due to chronic small vessel ischemic changes. No subdural or epidural hematoma. No fracture or bone destruction of the cranial vault. Paranasal sinuses are unr emarkable. There is opacification of a minority of the left mastoid air cells. Normal development and aeration of the bilateral mastoid air cells otherwise.
--- NOTE | ~2022-04-25 | XR_ITS ---
EXAMINATION: XR chest 2V DATE: 04/25/2022 08:51 INDICATION: Stomach pain for 3 weeks. TECHNIQUE: Frontal and lateral views of the chest were obtained. COMPARISON: Chest single view 03/19/2022, CT abdomen and pelvis 03/19/2022 FINDINGS: The chest demonstrates clear lungs without pneumonia, pleural effusion, or pneumothorax. Th e heart size is normal. IMPRESSION: 1. No acute cardiopulmonary disease. Reviewed, dictated and finalized at location B.
--- NOTE | ~2022-04-25 | CT_ITS ---
EXAMINATION: CT abdomen pelvis wo con DATE: 04/25/2022 09:20 INDICATION: Low abdominal pain. TECHNIQUE: Computed tomography (CT) of the abdomen and pelvis was performed without intravenous contr ast. Automated exposure control and iterative reconstruction technique were employed. The dose-length product was 238.23 mGy-cm. COMPARISON: CT abdomen and pelvis 03/19/2022 FINDINGS: The visualized portions of the lung bases demonstrate mild atelectasis. No pleural effusion . The heart size is normal. No pericardial effusion. The liver, spleen, gallbladder, pancreas, and ad renal glands are normal. There are cysts in the kidneys measuring up to 2.4 cm on the left. There are widespread arterial calcifications. The prostate is mildly enlarged. The appendix is normal. There a re no pathologically enlarged lymph nodes. There is no free intraperitoneal fluid. There are changes of anterior and posterior fusion procedures from L4 to S1. A bone stimulator is noted. There is mild chronic anterior wedging of T11-L1 vertebral bodies. There is mild thoracic spondylosis and moderate lumbar spondylosis. IMPRESSION: 1. No etiology for the patient's symptoms. Reviewed, dictated and finalized at location B.
[2022-04-25 08:19] VITALS: BP 196/81; PULSE 93; RESP 14; TEMP 36.6; O2SAT 99
--- NOTE | 2022-04-25 08:33 | ECG_ITS ---
Measurements Intervals [place] Rate: 86 P: 62 CT: 157 QRS: 74 QRSD: 85 T: 79 QT: 375 QTc: 450 Interpretive Statements SINUS RHYTHM POSSIBLE LEFT ATRIAL ENLARGEMENT [-0.1mV P-WAVE IN V1/V2] OTHERWISE NORMAL ECG COMPARED TO ECG 12/29/2021 09:23:39 NO SIGNIFICANT CHANGES Electronically Signed On 04-25-2022 15:32:00 CDT by Chance Landis M.D.
--- NOTE | 2022-04-25 08:35 | ED.GENADULT ---
HPI - General Adult General Chief complaint: Altered Mental Status Stated complaint: Confusion Time Seen by Provider: 04/25/22 08:25 Source: patient, family, RN notes reviewed and old records reviewed Mode of arrival: wheelchair Limitations: no limitations History of Present Illness HPI narrative: This is a 56 year old male with history of DM, hypertension, ESRD on dialysis who presents for evaluation of lower abdominal pain. PAtient states he has been having lower abdominal pain for 3 weeks. He states his pain has been constant and nonradiating. He is unable to describe his pain. He denies associated nausea and vomiting. He states a few weeks ago it was watery diarrhea but it is now normal. He denies chest pain or shortness of breath. He has had nonproductive cough for 1 week. His family at bedside states patient falls out of bed and last night he fell out of bed. She states he sat up in bed stating he was confused . Patient is alert and oriented x 4. Denies headache. He admits to not taking his medications as prescribed because they are not making him feel better. He gets dialysis on MWF. Related Data Home Medications Medication Instructions Recorded Confirmed vitamin B complex-vitamin C-folic 1 tablet PO DAILY 07/23/20 09/21/21 acid 0.8 mg tablet (Dang-Nilsa) ropinirole 0.25 mg tablet 0.25 mg PO DIRECTED 01/11/21 09/21/21 glucagon 1 mg injection kit See Rx Instructions .Route .COMPLEX 03/27/21 09/21/21 insulin glargine 100 unit/mL (3 See Rx Instructions .Route .COMPLEX 04/05/22 mL) subcutaneous pen (Basaglar KwikPen U-100 Insulin) Allergies Allergy/AdvReac Type Severity Reaction Status Date / Time scopolamine Allergy Severe Unresponsiv Verified 04/25/22 08:31 e Review of Systems Review of Systems: All systems reviewed & are unremarkable except as noted in HPI and below Constitutional: Constitutional: Denies chills and Reports fatigue ENT: Reports nasal congestion and Denies sore throat Cardiovascular: Cardiovascular: Denies chest pain and Denies rapid heart rate Respiratory: Respiratory: Reports cough and Denies dyspnea Gastrointestinal: Gastrointestinal: Reports abdominal pain and Reports diarrhea Genitourinary: Genitourinary: Denies dysuria and Denies urinary frequency Musculoskeletal: Musculoskeletal: Denies back pain Neurologic: Reports confusion and Denies headache(s) [facility] Past Medical History Medical History Amputation above knee Anxiety Benign prostatic hyperplasia Bradycardic cardiac arrest (~07/23/20) In the setting of severe hyperkalemia, acute pulmonary edema, and respiratory failure Chronic anemia Congestive heart failure Echo 03/06/2021 1. Complete two-dimensional, color flow and Doppler transthoracic echocardiogram is performed. 2. Left ventricular chamber dimension is mildly enlarged. 3. Left ventricular systolic function is mildly reduced, estimated at 55-60%. 4. There is severely increased left ventricular wall thickness. Speckled appearance of the myocardium. 5. The left ventricular diastolic function is grade I diastolic dysfunction. 6. Left atrial chamber dimension is mildly enlarged. 7. There is moderate aortic valve sclerosis. 8. The mitral valve annulus is severely calcified. 9. There is mild mitral valve regurgitation. 10. The mitral valve has thickened leaflets. 11. There is mild tricuspid valve regurgitation. 12. There is mild pulmonic regurgitation. Coronary artery disease With non STEMI in December 2019, with stent placed to the LAD. Depression with anxiety End-stage renal disease on hemodialysis Erythropoietin deficiency anemia Gastric ulcer On endoscopy per Dr. Pacheco in June 2020. Gastroesophageal reflux disease Hypertension Noncompliance Renal osteodystrophy Seizure Secondary to hypoglycemia. ST elevation myocardial infarction (STEMI) (~06/26/20) Secondary to
--- NOTE | 2022-04-25 08:44 | PC.NURSE ---
Pt to CT scan via stretcher at this time.
[2022-04-25 08:54] LABS: Basophils Absolute Auto 0.1 K/mm3 (0.0-0.1); Basophils Percent Auto 0.8 % (0.2-1.2); Eosinophils Absolute Auto 0.6 K/mm3 (0-0.3); Eosinophils Percent Auto 4.8 % (0-4.4); Hematocrit 32.9 % (42.0-52.0); Hemoglobin 10.5 g/dL (14.0-18.0); Immature Granulocyte Absolute 0.03 K/mm3 (0.00-0.031); Immature Granulocyte Percent A 0.3 % (0-0.5); Lymphocytes Absolute Auto 1.89 K/mm3 (0.9-3.2); Lymphocytes Percent Auto 16.1 % (18.3-44.2); Mean Corpuscular HGB Conc 31.9 g/dl (32-36); Mean Corpuscular Hemoglobin 31.3 pg (26-34); Mean Corpuscular Volume 97.9 fl (80-100); Monocytes Percent Auto 8.5 % (2.6-8.5); Neutrophils Absolute Auto 8.2 K/mm3 (1.3-6.7); Neutrophils Percent Auto 69.5 % (45.5-73.1); Platelet Count Result 315 k/mm3 (150-375); Red Blood Count 3.36 M/mm3 (4.6-6.20); White Blood Count 11.8 K/mm3 (4.5-10.0)
[2022-04-25 08:57] LABS: Alanine Aminotransferase 9 U/L (6-50); Albumin Level 4.1 g/dL (3.5-5.1); Alkaline Phosphatase 130 U/L (38-126); Anion Gap 13 mmol/L (8-16); Aspartate Amino Transferase 20 U/L (17-59); Bilirubin,Total 0.4 mg/dL (0.2-1.3); Blood Urea Nitrogen 58 mg/dL (9-20); Calcium 8.8 mg/dL (8.4-10.2); Carbon Dioxide 23 mmol/L (22-30); Chloride 99 mmol/L (98-107); Estimated CRCL calculation 8 ml/min; Estimated Glomerular Filt Rate 7; Glucose 125 mg/dL (65-110); Lipase 250 U/L (23-300); Potassium 5.6 mmol/L (3.4-5.0); Sodium 135 mmol/L (137-145)
[2022-04-25 08:59] LABS: Partial Thromboplastin Time 36.5 SECONDS (22.3-36.8)
--- NOTE | 2022-04-25 09:07 | PC.NURSE ---
Pt to CT scan via stretcher at this time.
[2022-04-25 09:22] LABS: SARS-CoV-2 RNA PCR Negative
--- NOTE | 2022-04-25 09:45 | PC.NURSE ---
Pt unable to urinate, declined straight cath, given urinal and call light and will continue to produce u/a sample.
[2022-04-25 09:46] VITALS: BP 173/81; PULSE 92; RESP 12; O2SAT 97
--- NOTE | 2022-04-25 09:47 | PC.NURSE ---
Pt called per request - Rosana at [phone] to make aware of neg COVID test.
[2022-04-25 10:44] VITALS: BP 193/83; PULSE 88; RESP 16
[2022-04-25 10:50] LABS: Appearance Urine Clear (Clear); Bilirubin Urine Negative (Negative); Blood Urine 1+ (Negative); Glucose Urine UA 1+ mg/dL (Negative); Ketones Urine Negative (Negative); Leukocyte Esterase Ur Negative LEU/UL (Negative); Nitrate Urine Negative (Negative); Protein Urine 2+ mg/dL (Negative); Urobilinogen Urine 0.2 mg/dL (<2.0); pH Urine 8.5 (5.0-9.0)
[2022-04-25 10:54] LABS: Mucus Urine Rare /lpf; Squamous Epithelial Cell Urine Rare /hpf (Few); WBC Urine 0-3 /hpf
[2022-04-25 10:57] LABS: Add Urine Microscopic? YES; Color Urine Light Yellow (Yellow)
== END 2022-04-25 10:45 | disposition home or self-care (01) ==
PROVIDERS: Emergency Provider General Practice; PCP Emergency Medicine
DX: I13.2 Hypertensive heart and chronic kidney disease with heart failure and with stage 5 chronic kidney disease, or end stage renal disease (principal); I50.9 Heart failure, unspecified; N18.6 End stage renal disease; E87.5 Hyperkalemia; R41.0 Disorientation, unspecified; E10.22 Type 1 diabetes mellitus with diabetic chronic kidney disease; I25.10 Atherosclerotic heart disease of native coronary artery without angina pectoris; Z79.4 Long term (current) use of insulin; F17.210 Nicotine dependence, cigarettes, uncomplicated; Z20.822 Contact with and (suspected) exposure to COVID-19
CPT/HCPCS: 36415; 70450; 71046; 74176; 80053; 81001; 83690; 85025; 85610; 85730; 93005; 99284; C9803; U0003; U0005

== ENCOUNTER 2022-04-26 18:27 | Emergency (ER) | payer OTHER, SELFPAY ==
--- NOTE | 2022-04-26 19:55 | PC.NURSE ---
PT tells tech that he would like to be seen at this time.
--- NOTE | 2022-04-26 21:01 | PC.NURSE ---
Pt comes up to Triage desk states I am just going to go home I know I can't take your wheelchair home . Pt wheeled outside placed himself on ground took gown off and started to Crawl out to [place]. Pt now just sitting outside.
--- NOTE | 2022-04-26 21:11 | PC.NURSE ---
Pt now back in gown and in a wheelchair and back in waiting room.
[2022-04-26 21:18] VITALS: BP 195/96; PULSE 110; RESP 17; TEMP 36.7; O2SAT 98
[2022-04-26] MEDS: NICOTINE (*PBKC) 21 MG PATCH 1 PATCH TRANSDERM (21:46)
[2022-04-26 21:58] LABS: Basophils Absolute Auto 0.1 K/mm3 (0.0-0.1); Basophils Percent Auto 0.6 % (0.2-1.2); Eosinophils Percent Auto 0.2 % (0-4.4); Hemoglobin 11.6 g/dL (14.0-18.0); Immature Granulocyte Absolute 0.05 K/mm3 (0.00-0.031); Immature Granulocyte Percent A 0.3 % (0-0.5); Lymphocytes Percent Auto 7.4 % (18.3-44.2); Mean Corpuscular HGB Conc 32.2 g/dl (32-36); Mean Corpuscular Hemoglobin 31.1 pg (26-34); Mean Corpuscular Volume 96.5 fl (80-100); Monocytes Absolute Auto 0.8 K/mm3 (0.1-0.6); Monocytes Percent Auto 5.2 % (2.6-8.5); Neutrophils Absolute Auto 13.9 K/mm3 (1.3-6.7); Neutrophils Percent Auto 86.3 % (45.5-73.1); Platelet Count Result 332 k/mm3 (150-375); Red Blood Count 3.73 M/mm3 (4.6-6.20); Red Cell Distribution Width 16.1 % (11.5-14.5); White Blood Count 16.1 K/mm3 (4.5-10.0)
--- NOTE | 2022-04-26 22:04 | PC.NURSE ---
Pt. disclosed to that PD took all of his guns. states pt. need to be placed on SI precautions and monitored with a sitter. pt. moved to room 13 with everything removed. pt. placed in green scrubs and belongings locked in cabinet between rm 3-4
[2022-04-26 22:07] LABS: Ethanol < 10 mg/dL (<10)
[2022-04-26 22:08] LABS: Alanine Aminotransferase 11 U/L (6-50); Albumin Level 4.2 g/dL (3.5-5.1); Alkaline Phosphatase 170 U/L (38-126); Anion Gap 17 mmol/L (8-16); Aspartate Amino Transferase 27 U/L (17-59); Bilirubin,Total 0.6 mg/dL (0.2-1.3); Blood Urea Nitrogen 63 mg/dL (9-20); Calcium 8.8 mg/dL (8.4-10.2); Carbon Dioxide 20 mmol/L (22-30); Chloride 94 mmol/L (98-107); Estimated Glomerular Filt Rate 6; Glucose 408 mg/dL (65-110); Potassium 5.7 mmol/L (3.4-5.0); Sodium 131 mmol/L (137-145)
--- NOTE | 2022-04-26 23:21 | PC.NURSE ---
pt. reports to RN that he makes little urine due to kidney failure.
[2022-04-26] MEDS: INSULIN GLARGINE (*BKC) 100 UNITS/ML 10 UNITS SUB-Q (23:48)
--- NOTE | 2022-04-26 23:50 | PC.NURSE ---
pt. repeatedly asking to leave ED. pt. educated that since he made a threat on his life he cannot leave.
[2022-04-26 23:53] LABS: Glucose Point of Care 410 mg/dl (65-105)
--- NOTE | 2022-04-27 00:23 | PC.NURSE ---
flaco notified this charge nurse that the patient is requesting to speak with the erp. Pt stated I dont want you to stick that tube down my throat the next time. That way I can be legally euthanized.
--- NOTE | 2022-04-27 00:33 | PC.NURSE ---
pt. moved to RM 15
[2022-04-27 01:00] VITALS: BP 195/69; PULSE 109; RESP 14; O2SAT 97
[2022-04-27 01:07] LABS: Barbiturate Screen Urine Negative (Negative); Benzodiazepines Screen Urine Negative (Negative)
[2022-04-27 01:13] LABS: Amphetamine Screen Urine Negative (Negative); Cannabinoid Screen Urine Positive (Negative); Cocaine Screen Urine Negative (Negative); Opiate Screen Urine Negative (Negative); Phencyclidine Screen Urine Negative (Negative)
--- NOTE | 2022-04-27 01:23 | ED.PSYCH ---
HPI - Psych General Chief Complaint: Psychiatric Symptoms Stated Complaint: psych Time Seen by Provider: 04/26/22 21:18 History of Present Illness HPI Narrative: Patient is a 56-year-old male who presents ER due to concerns of mental health issues. Apparently last night patient was sitting in his room and his asked by. She asked if he needed anything and he said get my gun. He reports police and came out to his home today and took his firearms. He was then told to come here for evaluation. Denies SI or HI at this time. He does endorse some depression for which he is not being treated outside of taking sertraline. He reports that he does have stress related to his chronic illnesses. No previous suicide attempts. Patient uses vague wording to describe thoughts of suicide. Reports she thought about it once 10 years ago. He reports that everybody's had a thought about how to kill themselves and he is no different. He has no active plan. Ingestion of intoxicants. Of note patient is a dialysis patient. He receives dialysis Monday. He missed his Monday appointment. No shortness of breath at this time. No chest pain or chest pressure. He has no medical complaints in general. Related Data Home Medications Medication Instructions Recorded Confirmed vitamin B complex-vitamin C-folic 1 tablet PO DAILY 07/23/20 09/21/21 acid 0.8 mg tablet (Dang-Nilsa) ropinirole 0.25 mg tablet 0.25 mg PO DIRECTED 01/11/21 04/26/22 glucagon 1 mg injection kit See Rx Instructions .Route .COMPLEX 03/27/21 09/21/21 insulin glargine 100 unit/mL (3 See Rx Instructions .Route .COMPLEX 04/05/22 mL) subcutaneous pen (Basaglar KwikPen U-100 Insulin) Allergies Allergy/AdvReac Type Severity Reaction Status Date / Time scopolamine Allergy Severe Unresponsiv Verified 04/26/22 21:22 e Review of Systems Review of Systems: All systems reviewed & are unremarkable except as noted in HPI and below Constitutional: Constitutional: Denies chills, Denies fatigue and Denies fever(s) ENT: Denies nasal congestion and Denies sore throat Cardiovascular: Cardiovascular: Denies chest pain, Denies rapid heart rate and Denies radiating jaw, neck or arm pain Respiratory: Respiratory: Denies cough and Denies dyspnea Gastrointestinal: Gastrointestinal: Denies abdominal pain, Denies nausea and Denies vomiting Psychiatric: Psychiatric: Denies anxiety, Reports depression, Denies homicidal ideation and Denies suicidal ideation PMF Past Medical History Medical History Amputation above knee Anxiety Benign prostatic hyperplasia Bradycardic cardiac arrest (~07/23/20) In the setting of severe hyperkalemia, acute pulmonary edema, and respiratory failure Chronic anemia Congestive heart failure Echo 03/06/2021 1. Complete two-dimensional, color flow and Doppler transthoracic echocardiogram is performed. 2. Left ventricular chamber dimension is mildly enlarged. 3. Left ventricular systolic function is mildly reduced, estimated at 55-60%. 4. There is severely increased left ventricular wall thickness. Speckled appearance of the myocardium. 5. The left ventricular diastolic function is grade I diastolic dysfunction. 6. Left atrial chamber dimension is mildly enlarged. 7. There is moderate aortic valve sclerosis. 8. The mitral valve annulus is severely calcified. 9. There is mild mitral valve regurgitation. 10. The mitral valve has thickened leaflets. 11. There is mild tricuspid valve regurgitation. 12. There is mild pulmonic regurgitation. Coronary artery disease With non STEMI in December 2019, with stent placed to the LAD. Depression with anxiety End-stage renal disease on hemodialysis Erythropoietin deficiency anemia Gastric ulcer On endoscopy per Dr. Pacheco in June 2020. Gastroesophageal reflux disease Hypertension Noncompliance Renal osteodystrophy Seizu
[2022-04-27 01:29] LABS: Methadone Screen Urine Negative (Negative)
[2022-04-27] MEDS: INSULIN ASPART (*BKC) 100 UNITS/ML 8 UNITS SUB-Q (02:26)
[2022-04-27 02:44] LABS: Glucose Point of Care 422 mg/dl (65-105)
== END 2022-04-27 02:45 | disposition home or self-care (01) ==
PROVIDERS: Emergency Provider Emergency Medicine; PCP Emergency Medicine
DX: F41.8 Other specified anxiety disorders (principal); E10.65 Type 1 diabetes mellitus with hyperglycemia; E10.22 Type 1 diabetes mellitus with diabetic chronic kidney disease; I13.2 Hypertensive heart and chronic kidney disease with heart failure and with stage 5 chronic kidney disease, or end stage renal disease; I50.9 Heart failure, unspecified; D63.1 Anemia in chronic kidney disease; N18.6 End stage renal disease; Z99.2 Dependence on renal dialysis; I25.10 Atherosclerotic heart disease of native coronary artery without angina pectoris; I25.2 Old myocardial infarction; N40.0 Benign prostatic hyperplasia without lower urinary tract symptoms; K21.9 Gastro-esophageal reflux disease without esophagitis; N25.0 Renal osteodystrophy; E55.9 Vitamin D deficiency, unspecified; Z95.5 Presence of coronary angioplasty implant and graft; Z89.612 Acquired absence of left leg above knee; Z89.511 Acquired absence of right leg below knee; Z98.49 Cataract extraction status, unspecified eye; Z87.891 Personal history of nicotine dependence; Z79.4 Long term (current) use of insulin; Z79.899 Other long term (current) drug therapy
CPT/HCPCS: 36415; 80053; 80307; 82948; 84443; 85025; 99284; A9270; J1815

== ENCOUNTER 2022-05-13 19:58 | Emergency (ER) | payer OTHER, SELFPAY ==
[2022-05-13] VITALS (14 sets, daily range): BP systolic 126–154; BP diastolic 74–81; PULSE 85–107; RESP 11–23; TEMP 36.9; O2SAT 97–100
--- NOTE | ~2022-05-13 | XR_ITS ---
EXAMINATION: XR chest 2V DATE: 05/13/2022 20:30 INDICATION: Shortness of breath TECHNIQUE: AP and lateral views of the chest are obtained. COMPARISON: 04/25/2022 FINDINGS: The lungs are free of acute opacities. No pleural effusion or pneumothorax. The cardiomedia stinal silhouette is normal. There appear to be coronary artery stents.There is mild thoracic spondyl osis. IMPRESSION: 1. No acute cardiopulmonary abnormality. Reviewed, dictated and finalized at location F.
[2022-05-13 20:23] LABS: Basophils Absolute Auto 0.1 K/mm3 (0.0-0.1); Basophils Percent Auto 0.7 % (0.2-1.2); Eosinophils Absolute Auto 0.3 K/mm3 (0-0.3); Eosinophils Percent Auto 2.7 % (0-4.4); Hematocrit 33.4 % (42.0-52.0); Hemoglobin 10.7 g/dL (14.0-18.0); Immature Granulocyte Absolute 0.04 K/mm3 (0.00-0.031); Immature Granulocyte Percent A 0.4 % (0-0.5); Lymphocytes Absolute Auto 1.42 K/mm3 (0.9-3.2); Lymphocytes Percent Auto 13.9 % (18.3-44.2); Mean Corpuscular Hemoglobin 30.7 pg (26-34); Mean Corpuscular Volume 95.7 fl (80-100); Monocytes Absolute Auto 0.8 K/mm3 (0.1-0.6); Monocytes Percent Auto 7.6 % (2.6-8.5); Neutrophils Absolute Auto 7.7 K/mm3 (1.3-6.7); Neutrophils Percent Auto 74.7 % (45.5-73.1); Platelet Count Result 366 k/mm3 (150-375); Red Blood Count 3.49 M/mm3 (4.6-6.20); White Blood Count 10.2 K/mm3 (4.5-10.0)
[2022-05-13 20:35] LABS: Prothrombin Time 12.3 Seconds (11.1-14.7)
[2022-05-13 20:36] LABS: Partial Thromboplastin Time 36.2 SECONDS (22.3-36.8)
[2022-05-13] MEDS: MAG HYDROX/AL HYDROX/SIMETH 30 ML UDC PO (20:45)
[2022-05-13] MEDS: LIDOCAINE HCL 2% VISC SOLN 15 ML UDC PO (20:45)
[2022-05-13 20:52] LABS: Alanine Aminotransferase 11 U/L (6-50); Albumin Level 4.2 g/dL (3.5-5.1); Alkaline Phosphatase 121 U/L (38-126); Anion Gap 13 mmol/L (8-16); Aspartate Amino Transferase 22 U/L (17-59); Bilirubin,Total 0.4 mg/dL (0.2-1.3); Blood Urea Nitrogen 23 mg/dL (9-20); Calcium 8.5 mg/dL (8.4-10.2); Carbon Dioxide 26 mmol/L (22-30); Chloride 98 mmol/L (98-107); Estimated CRCL calculation 13 ml/min; Estimated Glomerular Filt Rate 12; Glucose 155 mg/dL (65-110); Lipase 82 U/L (23-300); Potassium 4.8 mmol/L (3.4-5.0); Sodium 137 mmol/L (137-145)
--- NOTE | 2022-05-13 21:47 | ED.GENADULT ---
HPI - General Adult General Chief complaint: Shortness of Breath/Dyspnea Stated complaint: SOB Time Seen by Provider: 05/13/22 20:03 History of Present Illness HPI narrative: Patient is a 56-year-old male who presents ER with epigastric pain. Reports its been occurring intermittently over the last 2 years. No fevers or chills or sweats. No provoking symptoms tonight. Has not found any alleviating symptoms. Denies any dyspnea or chest pain. He has received his scheduled dialysis today. Reports he has burning that is going up his chest and the back of his throat. He does occasionally take famotidine. Related Data Home Medications Medication Instructions Recorded Confirmed vitamin B complex-vitamin C-folic 1 tablet PO DAILY 07/23/20 09/21/21 acid 0.8 mg tablet (Dang-Nilsa) ropinirole 0.25 mg tablet 0.25 mg PO DIRECTED 01/11/21 04/26/22 glucagon 1 mg injection kit See Rx Instructions .Route .COMPLEX 03/27/21 09/21/21 insulin glargine 100 unit/mL (3 See Rx Instructions .Route .COMPLEX 04/05/22 mL) subcutaneous pen (Basaglar KwikPen U-100 Insulin) Allergies Allergy/AdvReac Type Severity Reaction Status Date / Time scopolamine Allergy Severe Unresponsiv Verified 04/26/22 21:22 e Review of Systems Review of Systems: All systems reviewed & are unremarkable except as noted in HPI and below Constitutional: Constitutional: Denies chills, Denies fatigue and Denies fever(s) PMFSH Past Medical History Medical History Amputation above knee Anxiety Benign prostatic hyperplasia Bradycardic cardiac arrest (~07/23/20) In the setting of severe hyperkalemia, acute pulmonary edema, and respiratory failure Chronic anemia Congestive heart failure Echo 03/06/2021 1. Complete two-dimensional, color flow and Doppler transthoracic echocardiogram is performed. 2. Left ventricular chamber dimension is mildly enlarged. 3. Left ventricular systolic function is mildly reduced, estimated at 55-60%. 4. There is severely increased left ventricular wall thickness. Speckled appearance of the myocardium. 5. The left ventricular diastolic function is grade I diastolic dysfunction. 6. Left atrial chamber dimension is mildly enlarged. 7. There is moderate aortic valve sclerosis. 8. The mitral valve annulus is severely calcified. 9. There is mild mitral valve regurgitation. 10. The mitral valve has thickened leaflets. 11. There is mild tricuspid valve regurgitation. 12. There is mild pulmonic regurgitation. Coronary artery disease With non STEMI in December 2019, with stent placed to the LAD. Depression with anxiety End-stage renal disease on hemodialysis Erythropoietin deficiency anemia Gastric ulcer On endoscopy per Dr. Pacheco in June 2020. Gastroesophageal reflux disease Hypertension Noncompliance Renal osteodystrophy Seizure Secondary to hypoglycemia. ST elevation myocardial infarction (STEMI) (~06/26/20) Secondary to abrupt stent thrombosis of the LAD. Tobacco dependence Type 1 diabetes mellitus Diagnosed at the age of 10. Complicated by retinopathy, nephropathy, and neuropathy. Hemoglobin A1c was 7.6% in July 2020. Vitamin D deficiency disease Surgical History Surgical History History of endoscopy (~06/27/20) History of femoropopliteal bypass 02/04/21 left common femoral endarterectomy with left femoral to below-knee popliteal artery bypass History of heart artery stent Stent in the LAD in December 2019. Patient had abrupt stent thrombosis of the previously placed stent to the LAD on June 26, 2020 left coronary with extraction thrombectomy and stenting distal to the original stent with upsizing of the original stent. History of spinal surgery Neurostimulator in place. History of transmetatarsal amputation of left foot 02/04/21 at [facility]. Status post above-knee amputatio
== END 2022-05-13 22:02 | disposition home or self-care (01) ==
PROVIDERS: Emergency Provider Emergency Medicine; PCP Emergency Medicine
DX: G89.29 Other chronic pain (principal); R10.13 Epigastric pain; E10.22 Type 1 diabetes mellitus with diabetic chronic kidney disease; I13.2 Hypertensive heart and chronic kidney disease with heart failure and with stage 5 chronic kidney disease, or end stage renal disease; I50.9 Heart failure, unspecified; N18.6 End stage renal disease; F17.210 Nicotine dependence, cigarettes, uncomplicated; Z79.4 Long term (current) use of insulin
CPT/HCPCS: 36415; 71046; 80053; 83690; 85025; 85610; 85730; 99283; A9270

== ENCOUNTER 2022-06-17 20:28 | Emergency (ER) | payer OTHER, SELFPAY ==
[2022-06-17 20:50] VITALS: BP 133/66; PULSE 107; RESP 16; TEMP 36.4; O2SAT 99
--- NOTE | 2022-06-18 01:14 | PC.NURSE ---
Pt left before seen by provider pt left at 0103
== END 2022-06-18 01:05 | disposition left against medical advice (07) ==
PROVIDERS: PCP Emergency Medicine
DX: T82.848A Pain due to vascular prosthetic devices, implants and grafts, initial encounter (principal); Y84.1 Kidney dialysis as the cause of abnormal reaction of the patient, or of later complication, without mention of misadventure at the time of the procedure
CPT/HCPCS: 99199

== ENCOUNTER 2022-06-20 15:00 | Inpatient (IN) | payer OTHER, SELFPAY ==
[2022-06-20] VITALS (28 sets, daily range): BP systolic 159–210; BP diastolic 77–103; PULSE 91–104; RESP 11–30; TEMP 37.1–37.2; O2SAT 97–100
--- NOTE | ~2022-06-20 | CT_ITS ---
EXAMINATION: CT brain wo con DATE: 06/24/2022 16:54 INDICATION: Altered mental status TECHNIQUE: Computed tomography (CT) of the head was performed without intravenous contrast. The mA wa s adjusted according to patient size. Iterative reconstruction technique was employed. Exam dose: 60 5.33 mGy-cm total exam DLP. COMPARISON: 04/25/2022 CT brain FINDINGS: Prominent bilateral vertebral artery and carotid siphon internal carotid artery calcificati ons. There is nonspecific diminished attenuation of the cerebral white matter, likely due to chronic small vessel ischemic changes. Chronic left frontal infarct, also present on 04/25/2022. No intracranial mass lesion or hemorrhage or recent cerebrovascular accident is detected. No midline shift or mass effect effect. No subdural or epidural hematoma. No orbital mass lesion. Occasional left mastoid air cell effusions. The right mastoid air cells are clear. No fracture or bone destruction of the cranial vault. IMPRESSION: Cerebral atherosclerosis and chronic small vessel ischemic changes of the cerebral white matter Chronic left frontal infarct, unchanged since 04/25/2022 No acute intracranial finding Reviewed, dictated and finalized at Location A. Reviewed, dictated and finalized at location B.
--- NOTE | ~2022-06-20 | XR_ITS ---
EXAMINATION: XR chest 1V portable DATE: 06/24/2022 10:47 INDICATION: Shortness of breath. Ventricular tachycardia. TECHNIQUE: A single frontal view of the chest was obtained. COMPARISON: Chest 2 view 06/20/22 FINDINGS: Marilee B lines are noted, consistent with mild pulmonary edema. No pleural effusion or pneu mothorax. The heart size is normal. IMPRESSION: 1. Mild pulmonary edema. Reviewed, dictated and finalized at location A. IMPRESSION: 1. Mild pulmonary edema.
--- NOTE | ~2022-06-20 | XR_ITS ---
EXAMINATION: XR chest 1V portable Exam Date/Time: 06/20/2022 20:00 CDT HISTORY: hyperkalemia, LT ARM PAIN, HX CHF, SMOKER Comparison: 05/13/2022. RESULT: Lines, tubes, and devices: Possible coronary artery stents. Lungs and pleura: Diffuse reticulonodular opacities, with cuffing. Cardiomediastinal silhouette: Stable. Other: No acute osseous or upper abdominal finding. IMPRESSION: Pulmonary opacities may represent bronchiolitis, as can be seen with atypical infection, asthma, aspi ration, and small airways disease.. Reviewed, dictated and finalized at location K. IMPRESSION: Pulmonary opacities may represent bronchiolitis, as can be seen with atypical i nfection, asthma, aspiration, and small airways disease..
[2022-06-20] MEDS: MORPHINE SULFATE (*CRX) 4 MG/ML INJ IV PUSH (18:14)
[2022-06-20 18:34] LABS: Basophils Absolute Auto 0.1 K/mm3 (0.0-0.1); Basophils Percent Auto 0.5 % (0.2-1.2); Eosinophils Absolute Auto 0.1 K/mm3 (0-0.3); Eosinophils Percent Auto 0.4 % (0-4.4); Hemoglobin 13.4 g/dL (14.0-18.0); Immature Granulocyte Absolute 0.06 K/mm3 (0.00-0.031); Immature Granulocyte Percent A 0.4 % (0-0.5); Lymphocytes Absolute Auto 1.17 K/mm3 (0.9-3.2); Lymphocytes Percent Auto 7.6 % (18.3-44.2); Mean Corpuscular HGB Conc 31.9 g/dl (32-36); Mean Corpuscular Hemoglobin 30.4 pg (26-34); Mean Corpuscular Volume 95.2 fl (80-100); Mean Platelet Volume 9.4 fl (7.4-10.4); Monocytes Absolute Auto 1.1 K/mm3 (0.1-0.6); Monocytes Percent Auto 7.4 % (2.6-8.5); Neutrophils Percent Auto 83.7 % (45.5-73.1); Platelet Count Result 480 k/mm3 (150-375); Red Blood Count 4.41 M/mm3 (4.6-6.20); Red Cell Distribution Width 16.2 % (11.5-14.5); White Blood Count 15.5 K/mm3 (4.5-10.0)
[2022-06-20 18:45] LABS: INR 1.1; Prothrombin Time 13.9 Seconds (11.1-14.7)
[2022-06-20 18:46] LABS: Partial Thromboplastin Time 40.6 SECONDS (22.3-36.8)
[2022-06-20 18:51] LABS: Alanine Aminotransferase 10 U/L (6-50); Albumin Level 4.5 g/dL (3.5-5.1); Alkaline Phosphatase 156 U/L (38-126); Anion Gap 25 mmol/L (8-16); Aspartate Amino Transferase 18 U/L (17-59); Bilirubin,Total 0.8 mg/dL (0.2-1.3); Blood Urea Nitrogen 86 mg/dL (9-20); Calcium 9.1 mg/dL (8.4-10.2); Carbon Dioxide 18 mmol/L (22-30); Chloride 91 mmol/L (98-107); Estimated Glomerular Filt Rate 5; Glucose 293 mg/dL (65-110); Potassium 6.1 mmol/L (3.4-5.0); Sodium 134 mmol/L (137-145)
--- NOTE | 2022-06-20 19:04 | ECG_ITS ---
Measurements Intervals [place] Rate: 96 P: 65 NM: 165 QRS: 76 QRSD: 90 T: 83 QT: 348 QTc: 441 Interpretive Statements SINUS RHYTHM MINIMAL VOLTAGE CRITERIA FOR LVH, CONSIDER NORMAL VARIANT PEAKED T-WAVES, CONSIDER HYPERKALEMIA OR ACUTE ISCHEMIA COMPARED TO ECG 04/25/2022 08:38:08 THE T-WAVE CHANGES ARE NEW. Electronically Signed On 06-21-2022 16:27:18 CDT by Deisi Gee M.D.
--- NOTE | 2022-06-20 19:06 | ED.GENADULT ---
HPI - General Adult General Chief complaint: Extremity Problem,Nontraumatic <Vivek Sears MD - Last Filed: 06/20/22 22:02> Stated complaint: L. arm pain <Vivek Sears MD - Last Filed: 06/20/22 22:02> Time Seen by Provider: 06/20/22 18:00 <Vivek Sears MD - Last Filed: 06/20/22 22:02> History of Present Illness HPI narrative: Patient is a 56-year-old male who presents ER with concerns for infection to his AV fistula. Reports he has had discomfort worsening over the last 9 days. Today he went to dialysis and they would not dialyze him due to the fact that they feel its infected. He is having tenderness proximal to the fistula. No fevers or chills or sweats. No chest pain or shortness of breath or cough. Last dialysis was 2 days ago. Typically dialyzes Monday, Monday, , and Monday. His knife sharpener is Dr. Huynh. <Vivek Sears MD - Last Filed: 06/20/22 22:02> Related Data Home medications: Home Medications Medication Instructions Recorded Confirmed vitamin B complex-vitamin C-folic 1 tablet PO DAILY 07/23/20 06/23/22 acid 0.8 mg tablet (Dang-Nilsa) ropinirole 0.25 mg tablet 0.25 mg PO DIRECTED 01/11/21 06/23/22 glucagon 1 mg injection kit See Rx Instructions .Route .COMPLEX 03/27/21 06/23/22 insulin glargine 100 unit/mL (3 See Rx Instructions .Route .COMPLEX 04/05/22 mL) subcutaneous pen (Basaglar KwikPen U-100 Insulin) famotidine 20 mg tablet 20 mg DAILY 06/23/22 06/23/22 sevelamer carbonate 800 mg tablet 800 mg TIDWM 06/23/22 06/23/22 ticagrelor 60 mg tablet (Brilinta) 60 mg PO DAILY 06/23/22 06/23/22 <Vivek Sears MD - Last Filed: 06/20/22 22:02> Allergies/adverse reactions: Allergies Allergy/AdvReac Type Severity Reaction Status Date / Time scopolamine Allergy Severe Unresponsiv Verified 06/23/22 09:36 e <Vivek Sears MD - Last Filed: 06/20/22 22:02> Review of Systems Review of Systems: All systems reviewed & are unremarkable except as noted in HPI and below <Vivek Seasr MD - Last Filed: 06/20/22 22:02> Constitutional: Constitutional: Denies chills and Denies fever(s) <Vivek Sears MD - Last Filed: 06/20/22 22:02> ENT: Denies nasal congestion and Denies sore throat <Vivek Sears MD - Last Filed: 06/20/22 22:02> Cardiovascular: Cardiovascular: Denies chest pain, Denies rapid heart rate and Denies radiating jaw, neck or arm pain <Vivek Sears MD - Last Filed: 06/20/22 22:02> Respiratory: Respiratory: Denies cough and Denies dyspnea <Vivek Sears MD - Last Filed: 06/20/22 22:02> Gastrointestinal: Gastrointestinal: Denies abdominal pain, Denies nausea and Denies vomiting <Vivek Sears MD - Last Filed: 06/20/22 22:02> Integumentary/Breasts: Skin/Breast: Denies erythema, Denies rash and Denies skin ulcer <Vivek Sears MD - Last Filed: 06/20/22 22:02> Comments: Pain of AV fistula of left side <Vivek Sears MD - Last Filed: 06/20/22 22:02> [facility] Past Medical History Medical History: Medical History Amputation above knee Anxiety Benign prostatic hyperplasia Bradycardic cardiac arrest (~07/23/20) In the setting of severe hyperkalemia, acute pulmonary edema, and respiratory failure Chronic anemia Congestive heart failure Echo 03/06/2021 1. Complete two-dimensional, color flow and Doppler transthoracic echocardiogram is performed. 2. Left ventricular chamber dimension is mildly enlarged. 3. Left ventricular systolic function is mildly reduced, estimated at 55-60%. 4. There is severely increased left ventricular wall thickness. Speckled appearance of the myocardium. 5. The left ventricular diastolic function is grade I diastolic dysfunction. 6. Left atrial chamber dimension is mildly enlarged. 7. There is moderate aortic valve sclerosis. 8. The mitral valve annulus is severely calcified.
[2022-06-20] MEDS: SODIUM ZIRCONIUM CYCLOSILICATE 10 GM POWD.PACK PO (20:12)
[2022-06-20] MEDS: INSULIN HUMAN REGULAR (*BKC) 100 UNITS/ML 10 UNITS IV PUSH (20:13)
[2022-06-20] MEDS: CALCIUM GLUCONATE 1,000 MG/10 ML VIAL 1000 MG IV PUSH (20:13)
[2022-06-20] MEDS: SODIUM BICARBONATE 8.4% 50 MEQ/50 ML SYRINGE IV PUSH (20:13)
[2022-06-20] MEDS: SODIUM CHLORIDE 0.9% IV 50 ML 500 ML (20:15)
[2022-06-20] MEDS: NITROGLYCERIN OINTMENT 1 INCH DOSE TRANSDERM (20:34)
[2022-06-20 20:56] LABS: SARS-CoV-2 RNA PCR Negative
[2022-06-20 21:04] LABS: Glucose Point of Care 251 mg/dl (65-105)
[2022-06-20] MEDS: INSULIN HUMAN REGULAR (*BKC) 100 UNITS/ML IV PUSH (21:16)
[2022-06-20 22:36] LABS: Anion Gap 18 mmol/L (8-16); Blood Urea Nitrogen 89 mg/dL (9-20); Carbon Dioxide 23 mmol/L (22-30); Chloride 91 mmol/L (98-107); Estimated Glomerular Filt Rate 5; Glucose 186 mg/dL (65-110); Potassium 5.2 mmol/L (3.4-5.0); Sodium 132 mmol/L (137-145)
--- NOTE | 2022-06-20 23:12 | PC.NURSE ---
Patient report given to ADILENE Stewart. All questions answered and care of patient transferred.
[2022-06-21] VITALS (94 sets, daily range): BP systolic 139–206; BP diastolic 63–112; PULSE 89–117; RESP 10–32; O2SAT 97–100
[2022-06-21] MEDS: MORPHINE SULFATE (*CRX) 4 MG/ML INJ IV PUSH ×5 (04:38→22:46)
--- NOTE | 2022-06-21 07:55 | PC.NURSE ---
Sleeping on cart. Awaiting bed assignment from [facility].
--- NOTE | 2022-06-21 09:23 | PC.NURSE ---
Called [facility]. access line. still no bed assignment at [facility], [id number]
[2022-06-21] MEDS: hydrALAZINE HCL 20 MG/ML VIAL 10 MG IV PUSH (12:26)
--- NOTE | 2022-06-21 12:39 | PC.NURSE ---
[facility] transfer line called for updated VS. No bed available yet d/t pt being at capacity, but as soon as one is available they will call us.
[2022-06-21] MEDS: ONDANSETRON INJ 4 MG/2 ML VIAL IV PUSH ×2 (13:43→21:09)
[2022-06-21] MEDS: NICOTINE (*PBKC) 21 MG PATCH 1 PATCH TRANSDERM (14:32)
[2022-06-21 14:39] LABS: Glucose Point of Care 446 mg/dl (65-105)
[2022-06-21] MEDS: INSULIN HUMAN REGULAR (*BKC) 100 UNITS/ML 10 UNITS SUB-Q (14:47)
[2022-06-21 16:04] LABS: Glucose Point of Care 433 mg/dl (65-105)
[2022-06-21 18:20] LABS: Glucose Point of Care 319 mg/dl (65-105)
--- NOTE | 2022-06-21 18:40 | PC.NURSE ---
called [facility] transfer line to update bed status [id number], no bed at this time.
[2022-06-21] MEDS: INSULIN ASPART (*BKC) 100 UNITS/ML SUB-Q (19:02)
--- NOTE | 2022-06-21 19:05 | PC.NURSE ---
Report given to ADILENE Richardson
--- NOTE | 2022-06-21 19:30 | PC.NURSE ---
awaiting bed placement. pt resting comfortably, no requests at this time.
--- NOTE | 2022-06-21 23:17 | PC.NURSE ---
spoke with jenna from [facility] transfer center at this time. per Jenna, no beds at this available at this time.
[2022-06-22] VITALS (38 sets, daily range): BP systolic 130–250; BP diastolic 57–122; PULSE 74–104; RESP 14–19; TEMP 36.1–36.4; O2SAT 94–100
[2022-06-22 02:32] LABS: Glucose Point of Care 179 mg/dl (65-105)
[2022-06-22] MEDS: MORPHINE SULFATE (*CRX) 4 MG/ML INJ IV PUSH ×3 (02:41→18:16)
[2022-06-22] MEDS: METOCLOPRAMIDE HCL INJ 10 MG/2 ML VIAL IV PUSH (02:43)
--- NOTE | 2022-06-22 07:32 | PC.NURSE ---
assumed care of pt. at this time. Report from ADILENE Richardson
--- NOTE | 2022-06-22 08:00 | PC.NURSE ---
Pt. refusing to keep monitor on.
[2022-06-22 09:25] LABS: Glucose Point of Care 428 mg/dl (65-105)
[2022-06-22] MEDS: INSULIN ASPART (*BKC) 100 UNITS/ML SUB-Q ×2 (09:54→18:17)
[2022-06-22] MEDS: INSULIN HUMAN REGULAR (*BKC) 100 UNITS/ML 10 UNITS SUB-Q (09:56)
[2022-06-22 11:33] LABS: Glucose Point of Care 309 mg/dl (65-105)
[2022-06-22 13:35] LABS: Basophils Absolute Auto 0.1 K/mm3 (0.0-0.1); Basophils Percent Auto 0.7 % (0.2-1.2); Eosinophils Absolute Auto 0.1 K/mm3 (0-0.3); Eosinophils Percent Auto 0.7 % (0-4.4); Hematocrit 37.7 % (42.0-52.0); Hemoglobin 12.1 g/dL (14.0-18.0); Immature Granulocyte Absolute 0.06 K/mm3 (0.00-0.031); Immature Granulocyte Percent A 0.4 % (0-0.5); Lymphocytes Absolute Auto 1.27 K/mm3 (0.9-3.2); Lymphocytes Percent Auto 9.2 % (18.3-44.2); Mean Corpuscular HGB Conc 32.1 g/dl (32-36); Mean Corpuscular Hemoglobin 30.5 pg (26-34); Mean Platelet Volume 9.3 fl (7.4-10.4); Monocytes Absolute Auto 1.2 K/mm3 (0.1-0.6); Monocytes Percent Auto 8.5 % (2.6-8.5); Neutrophils Absolute Auto 11.1 K/mm3 (1.3-6.7); Neutrophils Percent Auto 80.5 % (45.5-73.1); Platelet Count Result 476 k/mm3 (150-375); Red Blood Count 3.97 M/mm3 (4.6-6.20); Red Cell Distribution Width 16.1 % (11.5-14.5); White Blood Count 13.8 K/mm3 (4.5-10.0)
[2022-06-22 13:54] LABS: Alanine Aminotransferase 15 U/L (6-50); Albumin Level 4.2 g/dL (3.5-5.1); Alkaline Phosphatase 127 U/L (38-126); Anion Gap 24 mmol/L (8-16); Aspartate Amino Transferase 25 U/L (17-59); Bilirubin,Total 0.8 mg/dL (0.2-1.3); Blood Urea Nitrogen 115 mg/dL (9-20); Calcium 9.4 mg/dL (8.4-10.2); Carbon Dioxide 25 mmol/L (22-30); Chloride 85 mmol/L (98-107); Estimated Glomerular Filt Rate 4; Glucose 184 mg/dL (65-110); Potassium 5.5 mmol/L (3.4-5.0); Sodium 134 mmol/L (137-145)
--- NOTE | 2022-06-22 15:33 | PC.NURSE ---
pt c/o pain to fistula site. morphine 4mg given per orders
--- NOTE | 2022-06-22 15:34 | PC.NURSE ---
still no bed from C repeat CBC and CMP drawn
--- NOTE | 2022-06-22 17:37 | PC.NURSE ---
received word, no Beds at [facility].
[2022-06-22] MEDS: carvediloL 3.125 MG TABLET PO (17:44)
[2022-06-22] MEDS: SODIUM BICARBONATE 8.4% 50 MEQ/50 ML SYRINGE IV PUSH (17:46)
[2022-06-22 17:52] LABS: Glucose Point of Care 218 mg/dl (65-105)
--- NOTE | 2022-06-22 18:23 | PC.NURSE ---
PT NOTED TO BE HYPERTNSIVE PROVIDER REGGIE MADE AWARE. GOING TO ORDER HTN MEDS
[2022-06-22] MEDS: ONDANSETRON INJ 4 MG/2 ML VIAL IV PUSH (18:30)
[2022-06-22] MEDS: hydrALAZINE HCL 20 MG/ML VIAL 10 MG IV PUSH (18:30)
--- NOTE | 2022-06-22 20:53 | PC.NURSE ---
NO BEDS AT [facility] AT THIS TIME PER AZAM AT [facility] TRANSFER [facility]
[2022-06-23] VITALS (21 sets, daily range): BP systolic 134–179; BP diastolic 57–104; PULSE 78–110; RESP 12–18; TEMP 35.4–37; O2SAT 93–100; BMI 17.8
[2022-06-23] MEDS: ONDANSETRON INJ 4 MG/2 ML VIAL IV PUSH ×4 (05:39→21:58)
[2022-06-23 06:13] LABS: Anion Gap 39 mmol/L (8-16); Blood Urea Nitrogen 115 mg/dL (9-20); Calcium 9.1 mg/dL (8.4-10.2); Carbon Dioxide 15 mmol/L (22-30); Chloride 81 mmol/L (98-107); Glucose 377 mg/dL (65-110); Sodium 135 mmol/L (137-145)
--- NOTE | 2022-06-23 06:18 | ECG_ITS ---
Measurements Intervals [place] Rate: 106 P: OR: 0 QRS: 77 QRSD: 85 T: 75 QT: 339 QTc: 450 Interpretive Statements SINUS TACHYCARDIA MINIMAL VOLTAGE CRITERIA FOR LVH, CONSIDER NORMAL VARIANT [MEETS CRITERIA IN ONE OF: R(aVL), S(V1), R(V5), R(V5/V6)+S(V1)] POOR R-WAVE PROGRESSION, CANNOT RULE OUT AN OLD ANTERIOR MYOCARDIAL INFARCTION COMPARED TO ECG 06/20/2022 20:16:12 THE RATE IS FASTER Electronically Signed On 06-23-2022 18:20:11 CDT by Deisi Gee M.D.
[2022-06-23 06:19] LABS: Estimated Glomerular Filt Rate 3
[2022-06-23] MEDS: SODIUM BICARBONATE 8.4% 50 MEQ/50 ML SYRINGE IV PUSH (06:41)
[2022-06-23] MEDS: INSULIN HUMAN REGULAR (*BKC) 100 UNITS/ML 6 UNITS IV PUSH (06:41)
--- NOTE | 2022-06-23 07:42 | PM.IMHP ---
H&P: HPI History of Present Illness Date/Time: 06/23/22 07:42 Chief Complaint: AV fistula infection Narrative: Patient is a 56-year-old male with past medical history of diastolic heart failure, CAD with a non-STEMI in December of 2019, ESRD on hemodialysis, hypertension, seizure, diabetes mellitus type 1, tobacco dependence and previous amputations above the knee. Patient presented to [facility] for concerns of possible infection to his AV fistula. Patient reports discomfort and worsening over the last 9 days. Patient tried to go to dialysis and did not dialyze him to the fact that they believed was infected. Patient does have some tenderness to the proximal fistula. Denies any fever, chills, sweats, chest pain or shortness of breath. Patient received dialysis approximately 2 days ago. He typically has dialysis on Monday, Monday, and Monday. 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 Upon further evaluation in the emergency department labs and imaging were obtained. The patient's WBC was 15.5, hemoglobin 13.4, hematocrit 42.0, platelet 480, sodium 134, potassium 6.1, anion gap 25, BUN 86, creatinine 11.1 and a glucose of 293. A chest x-ray was obtained and revealed pulmonary opacities may represent bronchiolitis or is seen with atypical infections. EKG revealed normal sinus rhythm with nonspecific ST changes normal QRS normal QT. patient was attempted to be transferred out see vascular surgery for his AV fistula infection. Unfortunately at this time [facility], or [facility] do not have any beds available (these facility offer Vascular Surgery). Dr. Huynh was notified of day patient's inability to be transferred. General surgery was consulted for possible line placement, Dr. Montana will place a line and the patient will be admitted to IMU. Patient was started on vancomycin and cefepime. during my assessment the patient was very pleasant. He denied any chest pain, shortness breast, nausea, vomiting upset stomach or diarrhea. Patient reports that he has not had a bowel movement in 3 days. Will add a bowel regimen for the patient. Patient also appeared mildly anxious. Review of Systems Review of Systems: All systems reviewed & are unremarkable except as noted in HPI and below PMFSH Past Medical History Medical History Amputation above knee Anxiety Benign prostatic hyperplasia Bradycardic cardiac arrest (~07/23/20) In the setting of severe hyperkalemia, acute pulmonary edema, and respiratory failure Chronic anemia Congestive heart failure Echo 03/06/2021 1. Complete two-dimensional, color flow and Doppler transthoracic echocardiogram is performed. 2. Left ventricular chamber dimension is mildly enlarged. 3. Left ventricular systolic function is mildly reduced, estimated at 55-60%. 4. There is severely increased left ventricular wall thickness. Speckled appearance of the myocardium. 5. The left ventricular diastolic function is grade I diastolic dysfunction. 6. Left atrial chamber dimension is mildly enlarged. 7. There is moderate aortic valve sclerosis. 8. The mitral valve annulus is severely calcified. 9. There is mild mitral valve regurgitation. 10. The mitral valve has thickened leaflets. 11. There is mild tricuspid valve regurgitation. 12. There is mild pulmonic regurgitation. Coronary artery disease With non STEMI in December 2019, with stent placed to the LAD. Depression with anxiety End-stage renal disease on hemodialysis Erythropoietin deficiency anemia Gastric ulcer On endoscopy per Dr. Pacheco in June 2020. Gastroesophageal reflux disease Hypertension Noncompliance Renal osteodystrophy Seizure Secondary to hypoglycemia. ST elevation myocardial infarction (STEMI) (~06/26/20) Secondary to abrupt stent thrombosis of the LAD. Tobacco dependence Type 1 diabetes mellitus Diagnosed at the age of 10. Complicated
--- NOTE | 2022-06-23 08:16 | ADMGEN ---
This patient, Ish Corley, was admitted to IMU Room 209-01 at 0810. Patient/family oriented to hospital policies and general routines including ID bracelet, bed and alarms, visiting hours, pain management, procedures, bathroom and other care routines, personal items, smoking policy, room service/diet, and visiting hours. Information on how to activate the Rapid Response Team has been discussed. Patient/Family are encouraged to report perceived risks to care and to ask questions if they do not understand what they are told or what they should do.
[2022-06-23] MEDS: SODIUM ZIRCONIUM CYCLOSILICATE 10 GM POWD.PACK PO (08:28)
[2022-06-23 09:16] LABS: Glucose Point of Care 326 mg/dl (65-105)
[2022-06-23 09:53] LABS: Vancomycin Random 11.3 ug/mL (10-20)
[2022-06-23] MEDS: INSULIN ASPART (*BKC) 100 UNITS/ML SUB-Q ×2 (10:47→12:43)
[2022-06-23] MEDS: carvediloL 3.125 MG TABLET PO ×2 (10:47→21:05)
--- NOTE | 2022-06-23 10:50 | PM.CNGS ---
Assessment and Plan Assessment and plan (1) ESRD (end stage renal disease) on dialysis: Code(s): N18.6 - End stage renal disease; Z99.2 - Dependence on renal dialysis Status: Chronic Assessment and Plan: plan to place temporary access for emergent HD (2) Arteriovenous fistula infection: Code(s): T82.7XXA - Infection and inflammatory reaction due to other cardiac and vascular devices, implants and grafts, initial encounter Status: Acute Assessment and Plan: cont abx, await transfer to vascular surgery History of Present Illness Consult details Consult date: 06/23/22 Reason for consult: central line Requesting physician: Luke Huynh MD Narrative: Pt is a 56 y/o M c multiple med issues presenting to ED c infection of LUE AV fistula. Pt was at his schedule HD on Monday and was sent directly to ED. Pt did not get scheduled HD. Pt has been accepted for transfer to vascular at [facility] but no beds available. Pt has since been admitted for management until transfer. Pt needs urgent HD and electrolytes katty K are increasingly worsening. GS consulted for access for HD. Review of Systems Constitutional: Constitutional: Denies anorexia, Denies chills, Reports fatigue, Reports fever(s), Denies headache(s), Reports lethargy, Reports malaise, Reports poor appetite and Reports weakness Eyes: Eyes: Reports as per HPI ENT: Reports system reviewed and no additional complaints, except as documented Cardiovascular: Cardiovascular: Reports no additional cardiovascular complaints Respiratory: Respiratory: Reports no additional respiratory complaints Gastrointestinal: Gastrointestinal: Reports no additional gastrointestinal complaints Genitourinary: Genitourinary: Reports no additional male genitourinary complaints Musculoskeletal: Musculoskeletal: Reports no additional musculoskeletal complaints Integumentary/Breasts: Skin/Breast: Reports system reviewed and no additional complaints, except as docu Neurologic: Reports system reviewed and no additional complaints, except as documented Psychiatric: Psychiatric: Reports no additional psychiatric complaints Endocrine: Endocrine: Reports no additional endocrine complaints Hematologic/Lymphatic: Hematologic/Lymphatic: Reports no additional hematologic/lymphatic complaints Allergic/Immunologic: Allergic/Immunologic: Reports no additional allergic/immunologic complaints [facility] Past Medical History Medical History Amputation above knee Anxiety Benign prostatic hyperplasia Bradycardic cardiac arrest (~07/23/20) In the setting of severe hyperkalemia, acute pulmonary edema, and respiratory failure Chronic anemia Congestive heart failure Echo 03/06/2021 1. Complete two-dimensional, color flow and Doppler transthoracic echocardiogram is performed. 2. Left ventricular chamber dimension is mildly enlarged. 3. Left ventricular systolic function is mildly reduced, estimated at 55-60%. 4. There is severely increased left ventricular wall thickness. Speckled appearance of the myocardium. 5. The left ventricular diastolic function is grade I diastolic dysfunction. 6. Left atrial chamber dimension is mildly enlarged. 7. There is moderate aortic valve sclerosis. 8. The mitral valve annulus is severely calcified. 9. There is mild mitral valve regurgitation. 10. The mitral valve has thickened leaflets. 11. There is mild tricuspid valve regurgitation. 12. There is mild pulmonic regurgitation. Coronary artery disease With non STEMI in December 2019, with stent placed to the LAD. Depression with anxiety End-stage renal disease on hemodialysis Erythropoietin deficiency anemia Gastric ulcer On endoscopy per Dr. Pacheco in June 2020. Gastroesophageal reflux disease Hypertension Noncompliance Renal osteodystrophy Seizure Secondary to hypoglycemia. ST elevation myocardial infarction (
--- NOTE | 2022-06-23 12:09 | P.OP_ITS ---
Procedure Note - Detailed Date of Procedure 06/23/22 Pre-op Diagnosis end-stage renal disease requiring hemodialysis Post-op Diagnosis Same Procedure Performed placement of left femoral vein hemodialysis catheter Surgeon Isabell Hercules MD Anesthesia Local Indications 56-year-old male with multiple medical issues including end-stage renal disease requiring hemodialysis presenting with infected AV fistula. Patient needs emergent access for hemodialysis. Findings able to cannulate right femoral vein however unable to pass guidewire Description of Procedure The patient was placed in the supine position. I used the SonoSite device to visualize the right femoral vein. The bilateral groin regions were then prepped and draped in the normal sterile fashion. I then localized the area above the vein in the right groin. Using the SonoSite, I was able to gain access into the right femoral vein with an 18 gauge needle. Upon trying to pass a guidewire, I noticed a lot of resistance. Given this, I aborted using this vein for access. I then used SonoSite to gain access into the left femoral vein. Once access was gained, I was able to easily pass a guidewire into the vein. I then enlarged the incision around the guidewire to allow dilation of the vein. I then serially dilated the vein under sterile Seldinger technique. Once adequately dilated, I passed the 12 Hong Konger 20 cm Trialysis catheter into the left femoral under sterile Seldinger technique. Once the catheter was in good position I removed the guidewire. I was able to easily drawn flush from all catheters. I then sutured the catheter in place. Sterile dressing was placed. The patient tolerated the procedure well and was alert and awake in his bed post procedure. Implants Twelve Hong Konger 20 cm Trialysis catheter Estimated Blood Loss 5 Pathology None sent Complications No immediate complications Condition Stable [place]position [place] [facility] [place] Surgery - Charge Forward: Surgery Billing
[2022-06-23 12:40] LABS: Glucose Point of Care 335 mg/dl (65-105)
[2022-06-23 15:44] LABS: Potassium 5.6 mmol/L (3.4-5.0)
--- NOTE | 2022-06-23 16:00 | PM.CNNEP ---
Assessment and Plan Assessment and plan (1) ESRD (end stage renal disease): Code(s): N18.6 - End stage renal disease Status: Chronic Assessment and Plan: urgent HD today due to hyperkalemia HOWEVER, HD line is not working very well so unclear how well of an HD treatment he is really getting plan HD treatment again tomorrow as well follow repeat labs and electrolytes (2) Arteriovenous fistula infection: Code(s): T82.7XXA - Infection and inflammatory reaction due to other cardiac and vascular devices, implants and grafts, initial encounter Status: Acute Assessment and Plan: appearance of AVF does seems to fit with likely infection follow culture data IV antibiotics eventual transfer to OSH for Vascular Surgery evaluation (3) Hyperkalemia: Code(s): E87.5 - Hyperkalemia Status: Acute Assessment and Plan: quite elevated as noted by AM labs HD now along with medical management to help stabilize given poor blood flow with current/temporary HD catheter, I worry he will likely have rebound hyperkalemia and may not get much clearance of uremic toxins.... attempt to use temporary HD catheter as tolerated (4) Hypertension: Code(s): I10 - Essential (primary) hypertension Status: Chronic Assessment and Plan: elevated but pain may be playing a role follow trend of hemodynamics post treatment (5) Diabetes mellitus: Code(s): E11.9 - Type 2 diabetes mellitus without complications Status: Chronic Assessment and Plan: follow accuchecks glycemic control Will continue to follow. History of Present Illness Reason for Consult Consult date: 06/23/22 Reason for consult: end stage renal disease Chief Complaint Chief complaint: hyperkalemia and dialysis History of Present Illness Narrative: The patient is a 56-year-old Caucausian male with an extensive medical history as outlined below who presented to [facility] emergency room with concerns for possible AV access infection. He reports discomfort and worsening pain over his AVF for the last 9 days.? He went to his outpatient dialysis unit on Monday for his regularly scheduled treatment but they did not dialyze him to the fact that they believed his AVF infected due the erythema and pain to touch. He reports no fevers, chills, sweats, chest pain or shortness of breath.? Patient received dialysis approximately 2 days ago (06/18/22).? No complaints of shortness of breath or chest pain either. Work-up in the ER demonstrated the patient to be hemodynamically stable with rountine blood tests showing WBC 15.5, hemoglobin 13.4, hematocrit 42.0, platelet 480, sodium 134, potassium 6.1, anion gap 25, BUN 86, creatinine 11.1 and a glucose of 293.? A chest x-ray was obtained and revealed pulmonary opacities may represent bronchiolitis or is seen with atypical infections.? EKG revealed normal sinus rhythm with nonspecific ST changes normal QRS normal QT. The patient was attempted to be transferred out see vascular surgery for his AV fistula infection.? Unfortunately at this time [facility] [place] did not have any beds available (these facility offer Vascular Surgery).? Dr. Huynh was notified of day patient's inability to be transferred.? General surgery was consulted for possible line placement and this has been done. Patient was started on vancomycin and cefepime after appropriate cultures were done. Renal consultation was requested due to his end-stage renal disease. The patient normally dialyzes on a Monday, Monday, Monday schedule under the care of Dr. Luke Huynh at [facility]. As mentioned above, his last dialysis treatment was on 03/18/2022. As noted, he does have numerous hospitalizations for flash pulmonary edema/hypertensive urgency necessitating intubation and mechanical ventilation with the need for aggressive dialysis treatments with regard to ultrafiltration but us
[2022-06-23 17:46] LABS: Glucose Point of Care 140 mg/dl (65-105)
[2022-06-23] MEDS: NICOTINE (*PBKC) 21 MG PATCH 1 PATCH TRANSDERM (18:17)
--- NOTE | 2022-06-23 21:34 | PCRCNOTE ---
Counseled patient on smoking cessation. Pt refuses materials however, requests a nicotine patch. (RN aware and seeking order.)
[2022-06-23 21:42] LABS: Glucose Point of Care 217 mg/dl (65-105)
[2022-06-23] MEDS: MORPHINE SULFATE (*CRX) 4 MG/ML INJ IV PUSH (22:52)
[2022-06-24] VITALS (28 sets, daily range): BP systolic 102–227; BP diastolic 50–98; PULSE 91–130; RESP 12–24; TEMP 35.1–37.3; O2SAT 94–100
[2022-06-24] MEDS: MORPHINE SULFATE (*CRX) 4 MG/ML INJ IV PUSH (05:40)
[2022-06-24] MEDS: ONDANSETRON INJ 4 MG/2 ML VIAL IV PUSH (05:40)
[2022-06-24 08:42] LABS: Glucose Point of Care > 500 mg/dl (65-105)
[2022-06-24] MEDS: NICOTINE (*PBKC) 21 MG PATCH 1 PATCH TRANSDERM (09:28)
--- NOTE | 2022-06-24 09:54 | ECG_ITS ---
Measurements Intervals Sherman Rate: 244 P: MD: 0 QRS: 113 QRSD: 192 T: 0 QT: 189 QTc: 381 Interpretive Statements REGULAR ATRIAL TACHYCARDIA WITH NONSPECIFIC INTRAVENTRICULAR CONDUCTION DELAY AND PEAKED T-WAVES CONSIDER HYPERKALEMIA COMPARED TO ECG 06/23/2022 07:18:53 HEART RATE IS INCREASED AND THIS TRACING IS SUGGESTIVE OF HYPERKALEMIA Electronically Signed On 06-24-2022 10:27:14 CDT by Chance Landis M.D.
[2022-06-24] MEDS: INSULIN ASPART (*BKC) 100 UNITS/ML 10 UNITS SUB-Q (10:13)
[2022-06-24] MEDS: INSULIN GLARGINE (*BKC) 100 UNITS/ML SUB-Q ×2 (10:13→14:01)
[2022-06-24 10:42] LABS: Hematocrit 41.1 % (42.0-52.0); Hemoglobin 12.4 g/dL (14.0-18.0); Mean Corpuscular HGB Conc 30.2 g/dl (32-36); Mean Corpuscular Hemoglobin 30.2 pg (26-34); Mean Platelet Volume 9.7 fl (7.4-10.4); Platelet Count Result 495 k/mm3 (150-375); Red Blood Count 4.11 M/mm3 (4.6-6.20); Red Cell Distribution Width 16.2 % (11.5-14.5); White Blood Count 9.6 K/mm3 (4.5-10.0)
[2022-06-24 10:43] LABS: Glucose Point of Care > 500 mg/dl (65-105)
[2022-06-24 10:51] LABS: Ammonia 10 umol/L (9-30)
[2022-06-24] MEDS: CALCIUM GLUCONATE 1,000 MG/10 ML VIAL 1000 MG IV PUSH (10:52)
[2022-06-24] MEDS: INSULIN HUMAN REGULAR (*BKC) 100 UNITS/ML 10 UNITS IV PUSH (10:53)
[2022-06-24 11:02] LABS: Estimated CRCL calculation 4 ml/min; Estimated Glomerular Filt Rate 3
[2022-06-24] MEDS: HEPARIN SODIUM LOCK FLUSH 500 UNITS/5 ML VIAL (11:04)
[2022-06-24 11:06] LABS: Alanine Aminotransferase 18 U/L (6-50); Albumin Level 4.6 g/dL (3.5-5.1); Alkaline Phosphatase 158 U/L (38-126); Anion Gap 52 mmol/L (8-16); Aspartate Amino Transferase 22 U/L (17-59); Bilirubin,Total 0.7 mg/dL (0.2-1.3); Blood Urea Nitrogen 112 mg/dL (9-20); Calcium 8.5 mg/dL (8.4-10.2); Carbon Dioxide 8 mmol/L (22-30); Chloride 74 mmol/L (98-107); Glucose 701 mg/dL (65-110); Phosphorus 16.2 mg/dL (2.5-4.5); Potassium 8.7 mmol/L (3.4-5.0); Sodium 134 mmol/L (137-145)
[2022-06-24 11:10] LABS: Glucose Point of Care > 500 mg/dl (65-105)
[2022-06-24 11:14] LABS: Magnesium 3.4 mg/dL (1.6-2.3)
--- NOTE | 2022-06-24 11:32 | P.OP_ITS ---
Procedure Note - Detailed Date of Procedure 06/24/22 Pre-op Diagnosis ESRD Post-op Diagnosis Same Procedure Performed remove and replaced clotted left femoral temporary hemodialysis catheter Surgeon Isabell Hercules MD Anesthesia Local Indications 56 y/o M c emergent need for hemodialysis with clotted left femoral vein HD cath Findings wire exchange, both ports draw and flushed easily, Heparin placed in line Description of Procedure The patient was placed in the supine position. The left groin including the previously placed catheter were prepped and draped in the normal sterile fashion. I began by removing the previously placed sutures. I then used the guidewire to gain access through the catheter into the left femoral vein. Once in good position, the previous catheter was removed. The catheter was noted to be clotted. I then placed a 12 Maldivian 20 cm temporary hemodialysis catheter under sterile Seldinger technique into the left femoral vein. Once in good position, the guidewire was removed just leaving the catheter in the vein. I was able to easily draw and flush from both ports. I then sutured the new catheter in position. Sterile dressing was placed. Final heparin flush was placed as directed in each port. Patient was alert and awake post procedure. Implants Twelve Maldivian 20 cm temporary dialysis catheter left femoral vein Estimated Blood Loss 5 Pathology None sent Complications No immediate complications Condition Critical Disposition Floor [facility] Billing Surgery - Charge Forward: Surgery Billing
[2022-06-24 11:40] LABS: Lactic Acid Reflex 2.4 mmol/L (0.7-2.0)
[2022-06-24 11:49] LABS: INR 1.2; Partial Thromboplastin Time 28.9 SECONDS (22.3-36.8)
--- NOTE | 2022-06-24 11:50 | PM.CNCAR ---
Assessment and Plan Assessment and plan (1) Hyperkalemia: Code(s): E87.5 - Hyperkalemia Status: Acute Plan 56-year-old man with history of LAD PCI several years ago. He also has end-stage renal disease and is on dialysis. The patient's tachycardia and ECG abnormalities are the direct result of hyperkalemia. The patient needs to be dialyzed as soon as possible Chance Landis MD [facility] History of Present Illness History of Present Illness Consult date/time: 06/24/22 11:50 Reason For Visit: hyperkalemia and dialysis Narrative: This is a 56-year-old patient whom we are consulted to see today by the hospitalist because he is tachycardic. The patient is known to us from previous admissions here at [facility]. Apparently he has a history of end-stage renal disease and has been a hemodialysis patient for a long time. He has had previous admissions here due to noncompliance with dialysis resulting in pulmonary edema. Apparently he has had problems recently now with the AV fistula being infected and his dialysis center not been able to provide dialysis. He has not been dialyzed for 9 or 10 days at the time of coming into the hospital. He is markedly hyperkalemic with a potassium of 8.7. His electrocardiogram also shows typical findings of severe hyperkalemia with tachycardia, widened QRS and peaked T-waves. He was given some calcium this morning and is ECG does look better at this time. He had percutaneous dialysis access placed by the surgical tech yesterday. He is weight be dialyzed a little later today. Other than being anxious he has no other complaints at this time. Current rhythm is sinus tachycardia with heart rate of about 115. He is known to have coronary artery disease and according to the records previous stenting to the LAD and previous abrupt stent thrombosis resulting in anterior infarction in the need to repeat LAD intervention. That was done according to the record 2019. Is being maintained on Brilinta according to the records. Not sure if the patient is taking the medication he has a long history of noncompliance. Review of Systems Review of Systems: ROS unobtainable: Yes unobtainable due to medical condition PMFSH Past Medical History Medical History Amputation above knee Anxiety Benign prostatic hyperplasia Bradycardic cardiac arrest (~09/10/20) In the setting of severe hyperkalemia, acute pulmonary edema, and respiratory failure Chronic anemia Congestive heart failure Echo 03/06/2021 1. Complete two-dimensional, color flow and Doppler transthoracic echocardiogram is performed. 2. Left ventricular chamber dimension is mildly enlarged. 3. Left ventricular systolic function is mildly reduced, estimated at 55-60%. 4. There is severely increased left ventricular wall thickness. Speckled appearance of the myocardium. 5. The left ventricular diastolic function is grade I diastolic dysfunction. 6. Left atrial chamber dimension is mildly enlarged. 7. There is moderate aortic valve sclerosis. 8. The mitral valve annulus is severely calcified. 9. There is mild mitral valve regurgitation. 10. The mitral valve has thickened leaflets. 11. There is mild tricuspid valve regurgitation. 12. There is mild pulmonic regurgitation. Coronary artery disease With non STEMI in December 2019, with stent placed to the LAD. Depression with anxiety End-stage renal disease on hemodialysis Erythropoietin deficiency anemia Gastric ulcer On endoscopy per Dr. Pacheco in June 2020. Gastroesophageal reflux disease Hypertension Noncompliance Renal osteodystrophy Seizure Secondary to hypoglycemia. ST elevation myocardial infarction (STEMI) (~06/26/20) Secondary to abrupt stent thrombosis of the LAD. Tobacco dependence Type 1 diabetes mellitus Diagnosed at the age of 10. Complicated by retinopathy, nephropathy, and neuropathy. Hemoglobi
[2022-06-24] MEDS: SODIUM ZIRCONIUM CYCLOSILICATE 10 GM POWD.PACK PO (12:13)
[2022-06-24 12:21] LABS: Glucose Point of Care > 500 mg/dl (65-105)
[2022-06-24 12:32] LABS: Troponin I 0.071 ng/mL (0.000-0.034)
[2022-06-24 13:12] LABS: Anion Gap 50 mmol/L (8-16); Blood Urea Nitrogen 120 mg/dL (9-20); Calcium 8.7 mg/dL (8.4-10.2); Carbon Dioxide 10 mmol/L (22-30); Chloride 75 mmol/L (98-107); Estimated CRCL calculation 5 ml/min; Estimated Glomerular Filt Rate 4; Glucose 620 mg/dL (65-110); Potassium 5.5 mmol/L (3.4-5.0); Sodium 135 mmol/L (137-145)
[2022-06-24] MEDS: ALBUTEROL SULFATE (*SP) AEROSOL 1 PUFF INHALATION ×3 (13:15→20:20)
[2022-06-24] MEDS: INSULIN ASPART (*BKC) 100 UNITS/ML 15 UNITS SUB-Q (14:01)
[2022-06-24 14:24] LABS: Reflex Lactic Acid Yes or No Add Lactic
--- NOTE | 2022-06-24 14:36 | PM.PNNEP ---
Progress Note: A&P Assessment and Plan (1) ESRD (end stage renal disease): Code(s): N18.6 - End stage renal disease Status: Chronic Assessment and Plan: urgent HD today again due to hyperkalemia, acidosis, and suspected uremia (altered mental status) current HD line is working better at this time plan HD treatment again tomorrow as well follow repeat labs and electrolytes (2) Arteriovenous fistula infection: Code(s): T82.7XXA - Infection and inflammatory reaction due to other cardiac and vascular devices, implants and grafts, initial encounter Status: Acute Assessment and Plan: appearance of AVF does seems to fit with likely infection follow culture data IV antibiotics eventual transfer to OSH for Vascular Surgery evaluation (3) Hyperkalemia: Code(s): E87.5 - Hyperkalemia Status: Acute Assessment and Plan: quite elevated as noted by AM labs HD now along with medical management to help stabilize follow trend (4) Hypertension: Code(s): I10 - Essential (primary) hypertension Status: Chronic Assessment and Plan: elevated but pain may be playing a role follow trend of hemodynamics post treatment (5) Diabetes mellitus: Code(s): E11.9 - Type 2 diabetes mellitus without complications Status: Chronic Assessment and Plan: follow accuchecks glycemic control Will continue to follow. Subjective Date/time seen: 06/24/22 14:36 Tolerating another session of hemodialysis today due to suboptimal treatment yesterday as evidenced by AM labs (seen on HD at 2:30PM); s/p new temporary HD catheter placement by Surgery earlier today; was apparently very lethargic and confused earlier this AM; now more awake but only nods head to questions. Exam Narrative: General: WD/WN male in NAD Heart: normal S1 and S2; no rub Lungs: decreased at bases Abdomen: soft, nontender, nondistended, positive bowel sounds Extremities: no cyanosis or clubbing; no edema; AVF - warm and tender to touch Skin: warm and dry Objective Data Vital Signs Vital Signs: Vital Signs Temp Pulse Resp BP Pulse Ox O2 Del Method 06/24/22 14:30 95 134/65 06/24/22 14:14 96 147/65 H 06/24/22 14:05 36.8 C 99 16 158/69 H 06/24/22 12:00 Room Air 06/24/22 12:00 109 H 06/24/22 10:00 120 H 06/24/22 08:00 129 H 06/24/22 13:15 108 H 18 95 Room Air 06/24/22 12:00 36.7 C 113 H 16 159/64 H 100 06/24/22 09:27 120 H 06/24/22 08:00 36.5 C 124 H 20 131/50 L 100 06/24/22 06:00 117 H 06/24/22 04:00 110 H 16 94 Room Air 06/24/22 04:00 110 H 06/24/22 02:00 102 H 06/24/22 04:00 36.8 C 110 H 16 149/73 H 94 06/24/22 00:00 36.4 C L 96 20 227/98 H 100 06/24/22 00:00 101 H 12 95 Room Air 06/24/22 00:00 101 H 06/23/22 22:00 84 06/23/22 20:00 83 12 95 Room Air 06/23/22 20:00 83 06/23/22 21:05 83 06/23/22 20:00 36.6 C 78 12 171/61 H 95 06/23/22 18:00 83 06/23/22 16:30 37.0 C 78 16 162/69 H 93 06/23/22 16:00 85 06/23/22 16:00 Room Air 06/23/22 16:41 36.9 C 91 18 155/104 H 06/23/22 16:25 95 134/78 06/23/22 16:20 84 165/94 H 06/23/22 15:45 36.9 C 86 16 162/87 H 06/23/22 15:59 83 159/88 H Intake/Output Intake/Output: Intake & Output 06/21/22 06/22/22 06/23/22 06/24/22 23:59 23:59 23:59 23:59 Intake Total 250 720 Output Total 79 350 Balance 250 641 -350 Meds/Results Medications: Active Medications Generic Name Dose Route Start Last Admin Trade Name Freq PRN Reason Stop Dose Admin Acetaminophen 650 mg 06/24/22 09:44 Acetaminophen 325 Mg Tablet PO Q4H PRN Mild Pain (1-3) Or Fever Albuterol 1 puff 06/24/22 12:00 06/24/22 13:15 Albuterol Sulfate (*Sp) Aerosol 1 Puff INHALATION 1 puff QIDRT MARTHA
[2022-06-24 15:59] LABS: Glucose Point of Care 295 mg/dl (65-105)
--- NOTE | 2022-06-24 16:24 | PM.IMPN ---
Progress Note: A&P Assessment and Plan (1) Arteriovenous fistula infection: Code(s): T82.7XXA - Infection and inflammatory reaction due to other cardiac and vascular devices, implants and grafts, initial encounter Status: Acute Assessment and Plan: Monitor I&Os, vital signs, neuro status and patient is a fall risk Monitor serum electrolytes, CBC, WBC, temperature curve and follow cultures Provide IV fluid resuscitation for hemodynamic stability IV Vancomycin, consult pharmacy to dose, send Vancomycin trough levels before 4th dose, and Cefepime 2 gram IV q12H General surgery Dr. Allen consulted, appreciate recommendations Dr. Huynh with nephrology consulted as well, appreciate assistance and recommendations P.r.n. Tylenol, Zofran, and melatonin 06/24/2022 interval history: patient with ESRD on HD was not able to have HD as there was concerned that dialysis fistula is infected and swollen and may rupture during dialysis, upon admission to ER on 06/20/2022 patient was supposed to be transferred to [facility] as they have a vascular surgeon, apparently there were no beds and patient was admitted to the floor, my understanding is that patient has not had HD since last monday, on 06/23 patient was seen by general surgeon and temporary cathter was placed in left groin, however it was not functional during dialysis and patient did not get dialysis, this morning the surgeon replace temporary cathter, at bedside, this morning patient refused labs draw, patient finger stick blood glucose was >500 patient was given lantus 5 units, and novolog 10units, repeat blood sugars were over 600 patient was given 10units of novolog, morninig labs were drawn, it showed K of 8.7 and blood sugar of 701, patient was given calcium gluconate 1gram IV push and 10 units of regular insulin IV push and repeat K was 5.5 and blood sugars of 600, Patient was given 5units of lantus and 15U of novolog, patient is scheduled to have dialysis at 1:30 pm as dailysis nurse will arrive at that time, will continue to monitor. (2) Acute hyperkalemia: Code(s): E87.5 - Hyperkalemia Status: Acute Assessment and Plan: patient has received doses of Lokelma, insulin in the emergency department, continue to monitor serum electrolytes (3) Hypertension, uncontrolled: Code(s): I10 - Essential (primary) hypertension Status: Acute Assessment and Plan: resume home medications (4) Type 1 diabetes mellitus with long-term current use of insulin: Code(s): E10.9 - Type 1 diabetes mellitus without complications Status: Acute Assessment and Plan: Insulin Lispro sliding scale, Accu-checks qAc and HS and Hold oral hypoglycemics Subjective Date/time seen: 06/24/22 16:24 Chief Complaint: AV fistula infection Narrative: Patient is a 56-year-old male with past medical history of diastolic heart failure, CAD with a non-STEMI in December of 2019, ESRD on hemodialysis, hypertension, seizure, diabetes mellitus type 1, tobacco dependence and previous amputations above the knee.? Patient presented to [facility] for concerns of possible infection to his AV fistula.? Patient reports discomfort and worsening over the last 9 days.? Patient tried to go to dialysis and did not dialyze him to the fact that they believed was infected.? Patient does have some tenderness to the proximal fistula.? Denies any fever, chills, sweats, chest pain or shortness of breath.? Patient received dialysis approximately 2 days ago.? He typically has dialysis on Monday, Monday, and Monday.? 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 Upon further evaluation in the emergency department labs and imaging were obtained.? The patient's WBC was 15.5, hemoglobin 13.4, hematocrit 42.0, platelet 480, sodium 134, potassium 6.1, anion gap 25, BUN 86, creatinine 11.1 and a glucose of 293.? A chest x-ray was obtained and reveal
[2022-06-24 17:07] LABS: Lactic Acid 1.4 mmol/L (0.7-2.0)
[2022-06-24 17:09] LABS: Magnesium 2.8 mg/dL (1.6-2.3)
[2022-06-24 17:11] LABS: Albumin Level 4.3 g/dL (3.5-5.1); Anion Gap 25 mmol/L (8-16); Blood Urea Nitrogen 89 mg/dL (9-20); Calcium 8.7 mg/dL (8.4-10.2); Carbon Dioxide 28 mmol/L (22-30); Chloride 86 mmol/L (98-107); Estimated CRCL calculation 5 ml/min; Estimated Glomerular Filt Rate 4; Glucose 259 mg/dL (65-110); Phosphorus 9.6 mg/dL (2.5-4.5); Potassium 4.9 mmol/L (3.4-5.0); Sodium 139 mmol/L (137-145)
[2022-06-24 17:35] LABS: Glucose Point of Care 231 mg/dl (65-105)
[2022-06-24] MEDS: TICAGRELOR 60 MG TABLET PO (17:53)
[2022-06-24 19:24] LABS: Hematocrit 36.1 % (42.0-52.0); Hemoglobin 11.5 g/dL (14.0-18.0); Mean Corpuscular HGB Conc 31.9 g/dl (32-36); Mean Corpuscular Hemoglobin 30.3 pg (26-34); Mean Corpuscular Volume 95.3 fl (80-100); Mean Platelet Volume 9.7 fl (7.4-10.4); Platelet Count Result 444 k/mm3 (150-375); Red Blood Count 3.79 M/mm3 (4.6-6.20); White Blood Count 13.6 K/mm3 (4.5-10.0)
[2022-06-24] MEDS: rOPINIRole HCL 0.25 MG TABLET PO (20:40)
[2022-06-24] MEDS: carvediloL 3.125 MG TABLET PO (20:41)
[2022-06-24 20:42] LABS: Glucose Point of Care 196 mg/dl (65-105)
[2022-06-24 22:12] LABS: Vancomycin Random 19.5 ug/mL (10-20)
[2022-06-25] VITALS (26 sets, daily range): BP systolic 121–220; BP diastolic 77–106; PULSE 83–138; RESP 12–24; TEMP 35.2–36.9; O2SAT 92–100
--- NOTE | 2022-06-25 03:00 | PC.NURSE ---
06/24/[address] [place] [address] transfer line called for Pt updates. Call center states that there are still no beds available at this time. Will call back if a bed becomes available.
[2022-06-25 04:53] LABS: Hematocrit 36.2 % (42.0-52.0); Hemoglobin 11.6 g/dL (14.0-18.0); Mean Corpuscular Hemoglobin 30.6 pg (26-34); Mean Corpuscular Volume 95.5 fl (80-100); Mean Platelet Volume 9.8 fl (7.4-10.4); Platelet Count Result 436 k/mm3 (150-375); Red Blood Count 3.79 M/mm3 (4.6-6.20); Red Cell Distribution Width 15.9 % (11.5-14.5); White Blood Count 15.1 K/mm3 (4.5-10.0)
[2022-06-25 05:14] LABS: Anion Gap 22 mmol/L (8-16); Blood Urea Nitrogen 107 mg/dL (9-20); Calcium 8.9 mg/dL (8.4-10.2); Carbon Dioxide 25 mmol/L (22-30); Chloride 90 mmol/L (98-107); Estimated CRCL calculation 4 ml/min; Estimated Glomerular Filt Rate 4; Glucose 180 mg/dL (65-110); Potassium 6.3 mmol/L (3.4-5.0); Sodium 137 mmol/L (137-145)
[2022-06-25] MEDS: SODIUM ZIRCONIUM CYCLOSILICATE 10 GM POWD.PACK PO (05:52)
[2022-06-25] MEDS: ONDANSETRON INJ 4 MG/2 ML VIAL IV PUSH ×2 (06:01→15:41)
--- NOTE | 2022-06-25 06:18 | PC.NURSE ---
06/25/22 0615- [facility] answering service called and information given regarding orders for Pt to receive dialysis today per Dr. Martino. Awaiting return call.
--- NOTE | 2022-06-25 06:29 | PC.NURSE ---
ADILENE Latham from [facility] dialysis notified of Pt's orders for dialysis today.
[2022-06-25] MEDS: ALBUTEROL SULFATE (*SP) AEROSOL 1 PUFF INHALATION ×2 (07:51→13:50)
[2022-06-25 07:57] LABS: Glucose Point of Care 202 mg/dl (65-105)
[2022-06-25] MEDS: NICOTINE (*PBKC) 21 MG PATCH 1 PATCH TRANSDERM (08:27)
[2022-06-25] MEDS: ONDANSETRON HCL ODT 4 MG TABLET PO (08:33)
[2022-06-25 11:18] LABS: Glucose Point of Care 200 mg/dl (65-105)
--- NOTE | 2022-06-25 11:58 | PC.NURSE ---
Spoke with [facility] transfer center. Pt update given. Still no beds available at this time. Will call back if a bed becomes available.
--- NOTE | 2022-06-25 12:00 | P.PNNP_ITS ---
Progress Note: A&P Assessment and Plan (1) ESRD (end stage renal disease): Code(s): N18.6 - End stage renal disease Status: Chronic Assessment and Plan: * HD today again due to hyperkalemia and further optimization of acidosis and clearance of uremic toxins * current HD line is working better at this time * possible HD treatment again tomorrow depending on AM labs * follow electrolytes, clearance, and volume status (2) Arteriovenous fistula infection: Code(s): T82.7XXA - Infection and inflammatory reaction due to other cardiac and vascular devices, implants and grafts, initial encounter Status: Acute Assessment and Plan: * appearance of AVF does seems to fit with likely infection * follow culture data * IV antibiotics * eventual transfer to [facility] for Vascular Surgery evaluation * if transfer to [facility] not feasible in a timely matter, consider possible transfer to [facility] or [facility] in [facility](?)i (3) Altered mental status: Code(s): R41.82 - Altered mental status, unspecified Status: Acute Assessment and Plan: * due to infection, hyperkalemia(?), and/or uremia * CT of brain negative * follow mentation (4) Hyperkalemia: Code(s): E87.5 - Hyperkalemia Status: Acute Assessment and Plan: * continues to run high but likely secondary to suboptimal dialysis treatments till now * ongoing dialysis along with medical management to help stabilize * follow trend (5) Hypertension: Code(s): I10 - Essential (primary) hypertension Status: Chronic Assessment and Plan: * reasonable control at this time * follow trend of hemodynamics (6) Diabetes mellitus: Code(s): E11.9 - Type 2 diabetes mellitus without complications Status: Chronic Assessment and Plan: * follow accuchecks * glycemic control Will continue to follow. Subjective Date/time seen: 06/25/22 12:00 Tolerating hemodialysis treatment at the time of my visit (seen on HD treatment at 11:40AM); appears to be resting comfortably; dialysis treatment ended early yesterday (only received ~ 2 hours) due to fluctuating mental status and need for CT scan head to r/o any intracranial pathology (which was negative); no apparent distress noted currently; mentation seems to be doing better as well. Exam Narrative: General: WD/WN male in NAD Heart: normal S1 and S2; no rub Lungs: decreased at bases Abdomen: soft, nontender, nondistended, positive bowel sounds Extremities: no cyanosis or clubbing; no edema; AVF - warm and tender to touch Skin: warm and intact Objective Data Vital Signs Vital Signs: Vital Signs Temp Pulse Resp BP Pulse Ox O2 Del Method 06/25/22 12:00 121 H 06/25/22 11:50 111 H 121/86 06/25/22 11:30 110 H 137/99 H 06/25/22 11:10 108 H 171/96 H 06/25/22 10:50 101 H 155/83 H 06/25/22 10:00 99 06/25/22 10:30 99 171/91 H 06/25/22 10:10 100 188/98 H 06/25/22 09:50 95 151/92 H 06/25/22 09:30 94 183/101 H 06/25/22 09:10 97 208/103 H 06/25/22 08:45 36.8 C 110 H 18 206/104 H 06/25/22 08:53 102 H 220/106 H 06/25/22 08:00 87 06/25/22 08:00 95 Room Air 06/25/22 08:00 36.8 C 90 12 199/87 H 95
--- NOTE | 2022-06-25 12:00 | PM.PNNEP ---
Progress Note: A&P Assessment and Plan (1) ESRD (end stage renal disease): Code(s): N18.6 - End stage renal disease Status: Chronic Assessment and Plan: HD today again due to hyperkalemia and further optimization of acidosis and clearance of uremic toxins current HD line is working better at this time possible HD treatment again tomorrow depending on AM labs follow electrolytes, clearance, and volume status (2) Arteriovenous fistula infection: Code(s): T82.7XXA - Infection and inflammatory reaction due to other cardiac and vascular devices, implants and grafts, initial encounter Status: Acute Assessment and Plan: appearance of AVF does seems to fit with likely infection follow culture data IV antibiotics eventual transfer to [facility] for Vascular Surgery evaluation if transfer to [facility] not feasible in a timely matter, consider possible transfer to [facility] or [facility] in [facility](?)i (3) Altered mental status: Code(s): R41.82 - Altered mental status, unspecified Status: Acute Assessment and Plan: due to infection, hyperkalemia(?), and/or uremia CT of brain negative follow mentation (4) Hyperkalemia: Code(s): E87.5 - Hyperkalemia Status: Acute Assessment and Plan: continues to run high but likely secondary to suboptimal dialysis treatments till now ongoing dialysis along with medical management to help stabilize follow trend (5) Hypertension: Code(s): I10 - Essential (primary) hypertension Status: Chronic Assessment and Plan: reasonable control at this time follow trend of hemodynamics (6) Diabetes mellitus: Code(s): E11.9 - Type 2 diabetes mellitus without complications Status: Chronic Assessment and Plan: follow accuchecks glycemic control Will continue to follow. Subjective Date/time seen: 06/25/22 12:00 Tolerating hemodialysis treatment at the time of my visit (seen on HD treatment at 11:40AM); appears to be resting comfortably; dialysis treatment ended early yesterday (only received ~ 2 hours) due to fluctuating mental status and need for CT scan head to r/o any intracranial pathology (which was negative); no apparent distress noted currently; mentation seems to be doing better as well. Exam Narrative: General: WD/WN male in NAD Heart: normal S1 and S2; no rub Lungs: decreased at bases Abdomen: soft, nontender, nondistended, positive bowel sounds Extremities: no cyanosis or clubbing; no edema; AVF - warm and tender to touch Skin: warm and intact Objective Data Vital Signs Vital Signs: Vital Signs Temp Pulse Resp BP Pulse Ox O2 Del Method 06/25/22 12:00 121 H 06/25/22 11:50 111 H 121/86 06/25/22 11:30 110 H 137/99 H 06/25/22 11:10 108 H 171/96 H 06/25/22 10:50 101 H 155/83 H 06/25/22 10:00 99 06/25/22 10:30 99 171/91 H 06/25/22 10:10 100 188/98 H 06/25/22 09:50 95 151/92 H 06/25/22 09:30 94 183/101 H 06/25/22 09:10 97 208/103 H 06/25/22 08:45 36.8 C 110 H 18 206/104 H 06/25/22 08:53 102 H 220/106 H 06/25/22 08:00 87 06/25/22 08:00 95 Room Air 06/25/22 08:00 36.8 C 90 12 199/87 H 95 06/25/22 07:52 87 14 06/25/22 05:35 96 06/25/22 04:00 85 16 92 Room Air 06/25/22 04:00 36.9 C 85 16 172/77 H 92 06/25/22 04:00 83 06/25/22 02:00 101 H 06/25/22 00:00 85 06/24/22 23:41 101 H 16 96 Room Air 06/24/22 23:34 37.1 C 101 H 16 175/90 H 96 06/24/22 21:35 91 06/24/22 20:00 103 H 06/24/22 20:00 95 18 95 Room Air 06/24/22 20:41 95 06/24/22 20:23 95 Room Air 06/24/22 19:25 37.0 C 95 18 164/74 H 95 06/24/22 18:00 99 06/24/22 16:00 37.3 C 130 H 24 H 122/62 96 06/24/22 17:00 Room Air 06/24/22 16:20 36.7 C 108 H 16 150/86 H
[2022-06-25] MEDS: SODIUM CHLORIDE 0.9% IV 1,000 ML 999 ML IV CONT (12:10)
--- NOTE | 2022-06-25 12:15 | PM.IMPN ---
Progress Note: A&P Assessment and Plan (1) Arteriovenous fistula infection: Code(s): T82.7XXA - Infection and inflammatory reaction due to other cardiac and vascular devices, implants and grafts, initial encounter Status: Acute Assessment and Plan: Monitor I&Os, vital signs, neuro status and patient is a fall risk Monitor serum electrolytes, CBC, WBC, temperature curve and follow cultures Provide IV fluid resuscitation for hemodynamic stability IV Vancomycin, consult pharmacy to dose, send Vancomycin trough levels before 4th dose, and Cefepime 2 gram IV q12H General surgery Dr. Allen consulted, appreciate recommendations Dr. Huynh with nephrology consulted as well, appreciate assistance and recommendations P.r.n. Tylenol, Zofran, and melatonin 06/24/2022 interval history: patient with ESRD on HD was not able to have HD as there was concerned that dialysis fistula is infected and swollen and may rupture during dialysis, upon admission to ER on 06/20/2022 patient was supposed to be transferred to [facility] as they have a vascular surgeon, apparently there were no beds and patient was admitted to the floor, my understanding is that patient has not had HD since last monday, on 06/23 patient was seen by general surgeon and temporary cathter was placed in left groin, however it was not functional during dialysis and patient did not get dialysis, this morning the surgeon replace temporary cathter, at bedside, this morning patient refused labs draw, patient finger stick blood glucose was >500 patient was given lantus 5 units, and novolog 10units, repeat blood sugars were over 600 patient was given 10units of novolog, morninig labs were drawn, it showed K of 8.7 and blood sugar of 701, patient was given calcium gluconate 1gram IV push and 10 units of regular insulin IV push and repeat K was 5.5 and blood sugars of 600, Patient was given 5units of lantus and 15U of novolog, patient is scheduled to have dialysis at 1:30 pm as dailysis nurse will arrive at that time, will continue to monitor. 06/25/2022 interval history: patient with ESRD on HD was not able to have HD as there was concerned that dialysis fistula is infected and swollen and may rupture during dialysis, upon admission to ER on 06/20/2022 patient was supposed to be transferred to [facility] as they have a vascular surgeon, apparently there were no beds and patient was admitted to the floor, my understanding is that patient has not had HD since last sunday 06/17, on 06/23 patient was seen by general surgeon and temporary catheter was placed in left groin, however it was not functional during dialysis and patient did not get dialysis, on 06/24 morning the surgeon replace temporary catheter, at bedside, on 06/24 morning patient refused labs draw, patient finger stick blood glucose was >500 patient was given Lantus 5 units, and NovoLog 10units, repeat blood sugars were over 600 patient was given 10units of novolog, morninig labs were drawn, it showed K of 8.7 and blood sugar of 701, patient was given calcium gluconate 1gram IV push and 10 units of regular insulin IV push and repeat K was 5.5 and blood sugars of 600, Patient was given 5units of lantus and 15U of novolog, on 06/24 patient had dialysis at 1:30 pm as dailysis nurse will arrive at that time, however patient did not feel well and dialysis was stopped after removal of 1.5L, gear 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 (2) Acute hyperkalemia: Code(s): E87.5 - Hyperkalemia Status: Acute Assessment and Plan: patient has received doses of Lokelma, insulin in the emergency department, continue to monitor serum electrolytes (3) Hypertension, uncontrolled: Code(s): I10 - Essential (primary) hypertension
--- NOTE | 2022-06-25 13:25 | PM.TDS ---
Transfer Discharge Sum: Prov Provider Date of admission: 06/24/22 11:23 Primary care physician: Chance Maurice MD Admitting clinician: Charlotte Mitchell MD Consults: 06/23/22 Consult to Physician Routine Comment: Consulting Provider: Isabell Hercules Reason for consultation: Vascular access for dialysis Has provider been notified: Yes Consult to Physician Routine Comment: Consulting Provider: Jony Martino Reason for consultation: Dialysis Has provider been notified: Yes 06/24/22 09:58 Consult to Physician Routine Comment: spoke with Tenisha Pinto @[facility](,) Consulting Provider: Tenisha Pinto rn call center/MD group to consult: linen room attendant Reason for consultation: milton calix Has provider been notified: Yes DS: Admitting Diagnosis Discharge Date 06/25/2022 Admitting Diagnosis AV fistula infection DS: Discharge Diagnosis Discharge Diagnosis (1) Arteriovenous fistula infection: Code(s): T82.7XXA - Infection and inflammatory reaction due to other cardiac and vascular devices, implants and grafts, initial encounter Status: Acute Assessment and Plan: Monitor I&Os, vital signs, neuro status and patient is a fall risk Monitor serum electrolytes, CBC, WBC, temperature curve and follow cultures Provide IV fluid resuscitation for hemodynamic stability IV Vancomycin, consult pharmacy to dose, send Vancomycin trough levels before 4th dose, and Cefepime 2 gram IV q12H General surgery Dr. Allen consulted, appreciate recommendations Dr. Huynh with nephrology consulted as well, appreciate assistance and recommendations P.r.n. Tylenol, Zofran, and melatonin 06/24/2022 interval history: patient with ESRD on HD was not able to have HD as there was concerned that dialysis fistula is infected and swollen and may rupture during dialysis, upon admission to ER on 06/20/2022 patient was supposed to be transferred to [facility] as they have a vascular surgeon, apparently there were no beds and patient was admitted to the floor, my understanding is that patient has not had HD since last monday, on 06/23 patient was seen by general surgeon and temporary cathter was placed in left groin, however it was not functional during dialysis and patient did not get dialysis, this morning the surgeon replace temporary cathter, at bedside, this morning patient refused labs draw, patient finger stick blood glucose was >500 patient was given lantus 5 units, and novolog 10units, repeat blood sugars were over 600 patient was given 10units of novolog, morninig labs were drawn, it showed K of 8.7 and blood sugar of 701, patient was given calcium gluconate 1gram IV push and 10 units of regular insulin IV push and repeat K was 5.5 and blood sugars of 600, Patient was given 5units of lantus and 15U of novolog, patient is scheduled to have dialysis at 1:30 pm as dailysis nurse will arrive at that time, will continue to monitor. 06/25/2022 interval history: patient with ESRD on HD was not able to have HD as there was concerned that dialysis fistula is infected and swollen and may rupture during dialysis, upon admission to ER on 06/20/2022 patient was supposed to be transferred to [facility] as they have a vascular surgeon, apparently there were no beds and patient was admitted to the floor, my understanding is that patient has not had HD since last sunday 06/17, on 06/23 patient was seen by general surgeon and temporary catheter was placed in left groin, however it was not functional during dialysis and patient did not get dialysis, on 06/24 morning the surgeon replace temporary catheter, at bedside, on 06/24 morning patient refused labs draw, patient finger stick blood glucose was >500 patient was given Lantus 5 units, and NovoLog 10units, repeat blood sugars were over 600 patient was given 10units of novolog, morninig labs were drawn, it showed K of 8.7 and blood sugar of 701, patient was give
[2022-06-25 14:29] LABS: Albumin Level 4.5 g/dL (3.5-5.1); Anion Gap 27 mmol/L (8-16); Blood Urea Nitrogen 37 mg/dL (9-20); Calcium 10.2 mg/dL (8.4-10.2); Carbon Dioxide 18 mmol/L (22-30); Chloride 91 mmol/L (98-107); Estimated CRCL calculation 8 ml/min; Estimated Glomerular Filt Rate 8; Glucose 283 mg/dL (65-110); Phosphorus 7.2 mg/dL (2.5-4.5); Potassium 4.5 mmol/L (3.4-5.0); Sodium 136 mmol/L (137-145)
--- NOTE | 2022-06-25 14:54 | PC.NURSE ---
Patient has been accepted to [facility] in [place]. Room number 548. Accepting physician Dr. Mcgrath. Report called to Jania HEAD. Ambulance expected 3:30-4:00
[2022-06-25] MEDS: INSULIN ASPART (*BKC) 100 UNITS/ML SUB-Q (15:45)
[2022-06-25 15:59] LABS: Glucose Point of Care 346 mg/dl (65-105)
== END 2022-06-25 17:20 | disposition short-term general hospital (02) | DRG 314 ==
LOC: ANHED 22:00 → ANHIMU 06-23 07:40
PROVIDERS: Emergency Medicine; Internal Medicine Nephrology; Nurse Practitioner; Admitting Provider Internal Medicine; Emergency Provider Emergency Medicine; PCP Emergency Medicine; Visit Provider Family Medicine
DX: T82.7XXA Infection and inflammatory reaction due to other cardiac and vascular devices, implants and grafts, initial encounter (principal); N18.6 End stage renal disease; I13.2 Hypertensive heart and chronic kidney disease with heart failure and with stage 5 chronic kidney disease, or end stage renal disease; I50.32 Chronic diastolic (congestive) heart failure; E10.22 Type 1 diabetes mellitus with diabetic chronic kidney disease; E87.5 Hyperkalemia; E10.40 Type 1 diabetes mellitus with diabetic neuropathy, unspecified; N25.0 Renal osteodystrophy; K21.9 Gastro-esophageal reflux disease without esophagitis; T82.868A Thrombosis due to vascular prosthetic devices, implants and grafts, initial encounter; Z20.822 Contact with and (suspected) exposure to COVID-19; D53.8 Other specified nutritional anemias; F41.8 Other specified anxiety disorders; I25.10 Atherosclerotic heart disease of native coronary artery without angina pectoris; N40.0 Benign prostatic hyperplasia without lower urinary tract symptoms; E55.9 Vitamin D deficiency, unspecified; F17.210 Nicotine dependence, cigarettes, uncomplicated; R41.82 Altered mental status, unspecified; Z95.5 Presence of coronary angioplasty implant and graft; I25.2 Old myocardial infarction; Z99.2 Dependence on renal dialysis; Z89.612 Acquired absence of left leg above knee; Z89.511 Acquired absence of right leg below knee; Z98.49 Cataract extraction status, unspecified eye; Z79.4 Long term (current) use of insulin; E10.319 Type 1 diabetes mellitus with unspecified diabetic retinopathy without macular edema
CPT/HCPCS: 36415; 70450; 71045; 80048; 80053; 80069; 80202; 82140; 82948; 83605; 83735; 84100; 84132; 84484; 85025; 85027; 85610; 85730; 86850; 86900; 86901; 93005; 94640; 96365; 96367; 96375; 96376; 99285; C1752; A9270; C9803; G0257; G0378; J0360; J0610; J0692; J1642; J1644; J1815; J2270; J2405; J2765; J3370; J7030; U0003; U0005

== ENCOUNTER 2022-07-06 18:18 | Emergency (ER) | payer OTHER, SELFPAY ==
[2022-07-06] VITALS (7 sets, daily range): BP systolic 99–142; BP diastolic 69–78; PULSE 99–117; RESP 11–28; TEMP 37.1; O2SAT 98–99
--- NOTE | ~2022-07-06 | XR_ITS ---
EXAMINATION: XR chest 1V portable Exam Date/Time: 07/06/2022 19:48 CDT HISTORY: Difficulty breathign Comparison: 06/24/2022. RESULT: Lines, tubes, and devices: Right IJ dialysis catheter, in good position. Lungs and pleura: Ill-defined patchy opacities in the left peripheral lung, right midlung, and left lower lung. Cardiomediastinal silhouette: Stable. Other: No acute osseous or upper abdominal finding. IMPRESSION: Pulmonary opacities may reflect edema or infection, including atypical viral infection. Reviewed, dictated and finalized at location K. IMPRESSION: Pulmonary opacities may reflect edema or infection, including atypical viral in fection.
--- NOTE | ~2022-07-06 | CT_ITS ---
EXAMINATION: CT brain wo con DATE: 07/06/2022 19:57 INDICATION: AMS . TECHNIQUE: Computed tomography (CT) of the head was performed without intravenous contrast. The mA wa s adjusted according to patient size. Iterative reconstruction technique was employed. The dose-lengt h product was 605.33 mGy-cm. COMPARISON: 06/24/2022 FINDINGS: No acute intracranial hemorrhage or extra-axial fluid collection. No hydrocephalus, mass, or herniation. No acute ischemic infarct. Unremarkable dural venous sinus attenuation. No acute osseous abnormality. Mucosal thickening in the ethmoid air cells and along the right ostiomeatal unit, left mastoid fluid, otherwise the aerated spaces are clear. Left lens replacement. Left frontal and temporal encephalomalacia. Atherosclerotic intracranial calci fication. Mild atrophy and chronic white matter change. IMPRESSION: No acute intracranial process. Reviewed, dictated and finalized at location K.
--- NOTE | 2022-07-06 19:39 | ECG_ITS ---
Measurements Intervals [place] Rate: 101 P: 71 NH: 150 QRS: 76 QRSD: 84 T: 78 QT: 337 QTc: 437 Interpretive Statements SINUS TACHYCARDIA MODERATE VOLTAGE CRITERIA FOR LVH, CONSIDER NORMAL VARIANT NONSPECIFIC T-WAVE ABNORMALITY BORDERLINE ECG COMPARED TO ECG 06/24/2022 10:09:52 PEAKED T-WAVES ARE NO LONGER APPRECIATED Electronically Signed On 07-07-2022 15:06:23 CDT by Cam Grimaldo M.D.
--- NOTE | 2022-07-06 19:40 | ED.GENADULT ---
HPI - General Adult General Chief complaint: Weakness Stated complaint: gen wkns, hd pt Time Seen by Provider: 07/06/22 19:26 History of Present Illness HPI narrative: This is a 56-year-old male with history of end-stage renal disease presenting to ED chief complaint weakness. Patient says he has been feeling weak and short of breath since yesterday. Patient underwent a full course of dialysis earlier today. They stated that he took they took off 3 L which is more than typical for him. After that he said he felt slightly confused although he is A&O x4 at this time. He is also complaining of increased pain in his right BKA stump. Patient denies headache, chest pain, abdominal pain, nausea vomiting, diarrhea or dysuria. Related Data Home Medications Medication Instructions Recorded Confirmed vitamin B complex-vitamin C-folic 1 tablet PO DAILY 07/23/20 06/23/22 acid 0.8 mg tablet (Dang-Nilsa) ropinirole 0.25 mg tablet 0.25 mg PO DIRECTED 01/11/21 06/23/22 glucagon 1 mg injection kit See Rx Instructions .Route .COMPLEX 03/27/21 06/23/22 insulin glargine 100 unit/mL (3 See Rx Instructions .Route .COMPLEX 04/05/22 mL) subcutaneous pen (Basaglar KwikPen U-100 Insulin) famotidine 20 mg tablet 20 mg DAILY 06/23/22 06/23/22 sevelamer carbonate 800 mg tablet 800 mg TIDWM 06/23/22 06/23/22 ticagrelor 60 mg tablet (Brilinta) 60 mg PO DAILY 06/23/22 06/23/22 Allergies Allergy/AdvReac Type Severity Reaction Status Date / Time scopolamine Allergy Severe Unresponsiv Verified 07/06/22 18:34 e Review of Systems Review of Systems: CONSTITUTIONAL: Denies night sweats. EYES: No eye pain ENT: Denies rhinorrhea CARDIOVASCULAR: Denies palpitations RESPIRATORY: Denies hemoptysis GASTROINTESTINAL: Denies hematemesis GENITOURINARY: Denies hematuria. SKIN: Denies rash MUSCULOSKELETAL: Denies myalgia. NEUROLOGIC: Denies weakness. PSYCHIATRIC: Denies delusions PMFSH Past Medical History Medical History Amputation above knee Anxiety Benign prostatic hyperplasia Bradycardic cardiac arrest (~07/23/20) In the setting of severe hyperkalemia, acute pulmonary edema, and respiratory failure Chronic anemia Congestive heart failure Echo 03/06/2021 1. Complete two-dimensional, color flow and Doppler transthoracic echocardiogram is performed. 2. Left ventricular chamber dimension is mildly enlarged. 3. Left ventricular systolic function is mildly reduced, estimated at 55-60%. 4. There is severely increased left ventricular wall thickness. Speckled appearance of the myocardium. 5. The left ventricular diastolic function is grade I diastolic dysfunction. 6. Left atrial chamber dimension is mildly enlarged. 7. There is moderate aortic valve sclerosis. 8. The mitral valve annulus is severely calcified. 9. There is mild mitral valve regurgitation. 10. The mitral valve has thickened leaflets. 11. There is mild tricuspid valve regurgitation. 12. There is mild pulmonic regurgitation. Coronary artery disease With non STEMI in December 2019, with stent placed to the LAD. Depression with anxiety End-stage renal disease on hemodialysis Erythropoietin deficiency anemia Gastric ulcer On endoscopy per Dr. Pacheco in June 2020. Gastroesophageal reflux disease Hypertension Noncompliance Renal osteodystrophy Seizure Secondary to hypoglycemia. ST elevation myocardial infarction (STEMI) (~06/26/20) Secondary to abrupt stent thrombosis of the LAD. Tobacco dependence Type 1 diabetes mellitus Diagnosed at the age of 10. Complicated by retinopathy, nephropathy, and neuropathy. Hemoglobin A1c was 7.6% in July 2020. Vitamin D deficiency disease Surgical History Surgical History History of endoscopy (~06/27/20) History of femoropopliteal bypass 02/04/21 left common femoral endarterectomy with left femoral to below-
[2022-07-06 19:53] LABS: Basophils Absolute Auto 0.1 K/mm3 (0.0-0.1); Basophils Percent Auto 0.4 % (0.2-1.2); Eosinophils Absolute Auto 0.2 K/mm3 (0-0.3); Eosinophils Percent Auto 1.4 % (0-4.4); Hematocrit 32.6 % (42.0-52.0); Hemoglobin 10.1 g/dL (14.0-18.0); Immature Granulocyte Absolute 0.14 K/mm3 (0.00-0.031); Immature Granulocyte Percent A 1.1 % (0-0.5); Lymphocytes Percent Auto 8.3 % (18.3-44.2); Mean Corpuscular Hemoglobin 30.3 pg (26-34); Mean Corpuscular Volume 97.9 fl (80-100); Mean Platelet Volume 10.1 fl (7.4-10.4); Monocytes Absolute Auto 0.5 K/mm3 (0.1-0.6); Monocytes Percent Auto 3.6 % (2.6-8.5); Neutrophils Absolute Auto 11.3 K/mm3 (1.3-6.7); Neutrophils Percent Auto 85.2 % (45.5-73.1); Platelet Count Result 282 k/mm3 (150-375); Red Blood Count 3.33 M/mm3 (4.6-6.20); Red Cell Distribution Width 16.2 % (11.5-14.5); White Blood Count 13.2 K/mm3 (4.5-10.0)
[2022-07-06 20:05] LABS: Alanine Aminotransferase 7 U/L (6-50); Albumin Level 3.4 g/dL (3.5-5.1); Alkaline Phosphatase 114 U/L (38-126); Anion Gap 11 mmol/L (8-16); Aspartate Amino Transferase 35 U/L (17-59); Bilirubin,Total 0.3 mg/dL (0.2-1.3); Blood Urea Nitrogen 22 mg/dL (9-20); Calcium 7.6 mg/dL (8.4-10.2); Carbon Dioxide 28 mmol/L (22-30); Chloride 96 mmol/L (98-107); Estimated CRCL calculation 18 ml/min; Estimated Glomerular Filt Rate 17; Glucose 286 mg/dL (65-110); Potassium 4.5 mmol/L (3.4-5.0); Sodium 135 mmol/L (137-145)
[2022-07-06] MEDS: ACETAMINOPHEN 500 MG TABLET 1000 MG PO (20:11)
[2022-07-06] MEDS: IBUPROFEN 400 MG TABLET 800 MG PO (20:12)
[2022-07-06] MEDS: SODIUM CHLORIDE 0.9% IV 500 ML 999 ML IV CONT (20:12)
[2022-07-06 20:23] LABS: Troponin I 0.046 ng/mL (0.000-0.034)
[2022-07-06] MEDS: oxyCODONE HCL (*CRX) 5 MG TAB IR PO (22:00)
== END 2022-07-06 22:54 | disposition home or self-care (01) ==
PROVIDERS: Emergency Medicine; Emergency Provider Emergency Medicine; PCP Emergency Medicine
DX: J18.9 Pneumonia, unspecified organism (principal); T87.89 Other complications of amputation stump; E10.22 Type 1 diabetes mellitus with diabetic chronic kidney disease; I13.2 Hypertensive heart and chronic kidney disease with heart failure and with stage 5 chronic kidney disease, or end stage renal disease; I50.9 Heart failure, unspecified; N18.6 End stage renal disease; N25.0 Renal osteodystrophy; E10.319 Type 1 diabetes mellitus with unspecified diabetic retinopathy without macular edema; E10.21 Type 1 diabetes mellitus with diabetic nephropathy; E10.40 Type 1 diabetes mellitus with diabetic neuropathy, unspecified; I25.10 Atherosclerotic heart disease of native coronary artery without angina pectoris; I25.2 Old myocardial infarction; N40.0 Benign prostatic hyperplasia without lower urinary tract symptoms; D64.9 Anemia, unspecified; K21.9 Gastro-esophageal reflux disease without esophagitis; E55.9 Vitamin D deficiency, unspecified; F41.8 Other specified anxiety disorders; Z99.2 Dependence on renal dialysis; Z89.612 Acquired absence of left leg above knee; Z89.511 Acquired absence of right leg below knee; Z95.5 Presence of coronary angioplasty implant and graft; Z98.49 Cataract extraction status, unspecified eye; Z79.4 Long term (current) use of insulin; Z79.02 Long term (current) use of antithrombotics/antiplatelets; F17.210 Nicotine dependence, cigarettes, uncomplicated
CPT/HCPCS: 36415; 70450; 71045; 80053; 84484; 85025; 93005; 96360; 99284; A9270; J7040

== ENCOUNTER 2022-07-08 21:29 | Inpatient (IN) | payer OTHER, SELFPAY ==
--- NOTE | ~2022-07-08 | XR_ITS ---
EXAMINATION: XR abdomen/kub 1V DATE: 07/12/2022 14:45 INDICATION: Nausea and vomiting. TECHNIQUE: A supine view of the abdomen on 2 radiographs was obtained. COMPARISON: Abdomen radiograph 03/12/2021, CT abdomen and pelvis 04/25/2022 FINDINGS: There are no dilated loops of bowel. There is no visible urolithiasis. Surgical clips overl ie left hip. There are changes of anterior and posterior fusion procedures in lumbar spine. A bone st imulator is noted. There is a central venous catheter tip in right atrium. Vascular calcifications ar e noted. IMPRESSION: 1. Normal bowel gas pattern. Reviewed, dictated and finalized at location A.
--- NOTE | ~2022-07-08 | CT_ITS ---
EXAMINATION: CT knee RT wo con DATE: 07/09/2022 07:07 INDICATION: Right lower limb pain and swelling, history of below-knee amputation TECHNIQUE: Computed tomography (CT) of the right knee was performed without intravenous contrast. The dose-length product (DLP) was 526.38 mGy-cm. Automated exposure control and iterative reconstruction technique were employed. COMPARISON: None FINDINGS: The examination is limited by the absence of intravenous contrast. No discrete abscess is i dentified. There is cellulitis with edema and fluid accumulation outside the muscular fascia. There i s no fracture. Calcified atherosclerosis is noted. There is mild tricompartmental osteoarthritis. The re are changes of below-knee amputation. IMPRESSION: 1. Cellulitis with edema and small amount of fluid outside the muscular fascia without discrete absce ss identified. Reviewed, dictated and finalized at location A. IMPRESSION: 1. Cellulitis with edema and small amount of fluid outside the muscular fascia without discrete abscess identified.
[2022-07-08 22:22] VITALS: BP 109/54; PULSE 107; RESP 20; TEMP 37.1; O2SAT 99
[2022-07-09] VITALS (19 sets, daily range): BP systolic 109–156; BP diastolic 53–105; PULSE 85–126; RESP 16–100; TEMP 35.2–36.9; O2SAT 95–100
[2022-07-09 01:57] LABS: Basophils Absolute Auto 0.1 K/mm3 (0.0-0.1); Basophils Percent Auto 0.4 % (0.2-1.2); Eosinophils Absolute Auto 0.2 K/mm3 (0-0.3); Eosinophils Percent Auto 1.5 % (0-4.4); Hematocrit 28.9 % (42.0-52.0); Hemoglobin 8.9 g/dL (14.0-18.0); Immature Granulocyte Absolute 0.14 K/mm3 (0.00-0.031); Immature Granulocyte Percent A 0.9 % (0-0.5); Lymphocytes Absolute Auto 1.52 K/mm3 (0.9-3.2); Lymphocytes Percent Auto 9.6 % (18.3-44.2); Mean Corpuscular HGB Conc 30.8 g/dl (32-36); Mean Corpuscular Hemoglobin 30.4 pg (26-34); Mean Corpuscular Volume 98.6 fl (80-100); Mean Platelet Volume 9.8 fl (7.4-10.4); Monocytes Absolute Auto 0.9 K/mm3 (0.1-0.6); Monocytes Percent Auto 5.4 % (2.6-8.5); Neutrophils Percent Auto 82.2 % (45.5-73.1); Platelet Count Result 300 k/mm3 (150-375); Red Blood Count 2.93 M/mm3 (4.6-6.20); Red Cell Distribution Width 16.4 % (11.5-14.5); White Blood Count 15.8 K/mm3 (4.5-10.0)
[2022-07-09 02:06] LABS: Alanine Aminotransferase 7 U/L (6-50); Albumin Level 3.3 g/dL (3.5-5.1); Alkaline Phosphatase 106 U/L (38-126); Anion Gap 10 mmol/L (8-16); Aspartate Amino Transferase 47 U/L (17-59); Bilirubin,Total 0.3 mg/dL (0.2-1.3); Blood Urea Nitrogen 29 mg/dL (9-20); Calcium 7.6 mg/dL (8.4-10.2); Carbon Dioxide 27 mmol/L (22-30); Chloride 99 mmol/L (98-107); Estimated CRCL calculation 15 ml/min; Estimated Glomerular Filt Rate 14; Glucose 98 mg/dL (65-110); Potassium 4.9 mmol/L (3.4-5.0); Sodium 136 mmol/L (137-145)
[2022-07-09] MEDS: HYDROmorphone HCL INJ (*CRX) 1 MG/ML SYR IM (05:39)
--- NOTE | 2022-07-09 06:39 | PC.NURSE ---
contacted phlebotomy to draw labs on pt. at 0639.
--- NOTE | 2022-07-09 06:43 | ED.GENADULT ---
HPI - General Adult General Chief complaint: Skin/Abscess/Foreign Body <Matteo Swartz MD - Last Filed: 07/09/22 06:50> Stated complaint: rash to right stump <Matteo Swartz MD - Last Filed: 07/09/22 06:50> Time Seen by Provider: 07/09/22 03:45 <Matteo Swartz MD - Last Filed: 07/09/22 06:50> History of Present Illness HPI narrative: Patient is a 56-year-old gentleman who presents the emergency department with chief complaint of right lower extremity pain. Patient reports that he is a bilateral amputee and end-stage renal on dialysis patient. The patient reports that he does not know of any trauma to his right lower extremity but noticed that his soft tissue in the end of his stump started becoming firm patient also reports that he has several's patches of red tissue and noticed that there is a bruising present in the end of the stump. Patient reports a similar like a blood blister. Patient denies fever reports that he completed his normal dialysis run and was told to come to the emergency department for evaluation. Patient reports the pain is worse with movement and improved with rest. Patient reports that he recently had a fistula that clotted that required a new dialysis access to be placed. <Matteo Swartz MD - Last Filed: 07/09/22 06:50> Related Data Home medications: Home Medications Medication Instructions Recorded Confirmed vitamin B complex-vitamin C-folic 1 tablet PO DAILY 07/23/20 07/09/22 acid 0.8 mg tablet (Dang-Nilsa) ropinirole 0.25 mg tablet 0.25 mg PO DIRECTED 01/11/21 07/09/22 glucagon 1 mg injection kit See Rx Instructions .Route .COMPLEX 03/27/21 07/09/22 insulin glargine 100 unit/mL (3 See Rx Instructions .Route .COMPLEX 04/05/22 07/09/22 mL) subcutaneous pen (Basaglar KwikPen U-100 Insulin) famotidine 20 mg tablet 20 mg DAILY 06/23/22 07/09/22 ticagrelor 60 mg tablet (Brilinta) 60 mg PO BID 06/23/22 07/09/22 B12 1,000 mcg PO DAILY 07/09/22 07/09/22 albuterol sulfate 90 mcg/actuation 1 puff inhalation QID PRN 07/09/22 07/09/22 aerosol inhaler Shortness Of Breath aspirin 81 mg tablet 81 mg PO DAILY 07/09/22 07/09/22 cholecalciferol (vitamin D3) 25 25 mcg PO DAILY 07/09/22 07/09/22 mcg (1,000 unit) tablet (Vitamin D3) <Matteo Swartz MD - Last Filed: 07/09/22 06:50> Allergies/adverse reactions: Allergies Allergy/AdvReac Type Severity Reaction Status Date / Time scopolamine Allergy Severe Unresponsiv Verified 07/08/22 22:24 e <Matteo Swartz MD - Last Filed: 07/09/22 06:50> Review of Systems Review of Systems: A 10 system review of systems was completed on the patient and is negative except for what is stated in the HPI. Nursing and ancillary documentation was reviewed. <Matteo Swartz MD - Last Filed: 07/09/22 06:50> [facility] Past Medical History Medical History: Medical History (Updated 07/09/22 @ 18:17 by Vivek Sears MD) Amputation above knee Anxiety Benign prostatic hyperplasia Bradycardic cardiac arrest (~07/23/20) In the setting of severe hyperkalemia, acute pulmonary edema, and respiratory failure Chronic anemia Congestive heart failure Echo 03/06/2021 1. Complete two-dimensional, color flow and Doppler transthoracic echocardiogram is performed. 2. Left ventricular chamber dimension is mildly enlarged. 3. Left ventricular systolic function is mildly reduced, estimated at 55-60%. 4. There is severely increased left ventricular wall thickness. Speckled appearance of the myocardium. 5. The left ventricular diastolic function is grade I diastolic dysfunction. 6. Left atrial chamber dimension is mildly enlarged. 7. There is moderate aortic valve sclerosis. 8. The mitral valve annulus is severely calcified. 9. There is mild mitral valve regurgitation. 10. The mitral valve has thickened leaflets. 11. There is mild tricuspid valve regurgitat
--- NOTE | 2022-07-09 07:15 | PC.NURSE ---
Report given to ADILENE Alvarado
[2022-07-09 07:41] LABS: Lactic Acid Reflex 0.9 mmol/L (0.7-2.0)
[2022-07-09 07:43] LABS: INR 1.2; Prothrombin Time 14.3 Seconds (11.1-14.7)
[2022-07-09 07:45] LABS: CRP 8.1 mg/dL (<1.0)
[2022-07-09 07:59] LABS: Procalcitonin 2.9 ng/mL
[2022-07-09 08:24] LABS: Erythrocyte Sedimentation Rate > 140 mm/hr (0-20)
[2022-07-09 09:42] LABS: SARS-CoV-2 RNA PCR Negative
[2022-07-09] MEDS: metroNIDAZOLE 500 MG/ISO 100ML 500 MG/100 ML BAG 100 MG IVPB ×2 (10:24→18:53)
[2022-07-09] MEDS: MORPHINE SULFATE (*CRX) 4 MG/ML INJ IV PUSH ×5 (10:30→21:29)
--- NOTE | 2022-07-09 12:38 | PM.IMHP ---
H&P: HPI History of Present Illness Date/Time: 07/09/22 12:38 Chief Complaint: right stump pain Narrative: this is a 56-year-old male patient who has a history of end-stage renal disease on dialysis Monday and he stated that his last dialysis was yesterday. The patient is a right uatbx-gvi-[id number] amputation and left above the knee amputation. 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 The patient stated that he did not have any injury to his right mowfr-pub-[id number] amputation however the patient gets nodules and he takes a pocket knife and cut them off. Patient stated that his pain is worse with movement and better with rest. The patient does have prosthesis for both of his stumps. Patient has a temporary dialysis catheter to his right upper chest and stated that his left forearm AV fistula has clotted off. His white count is noted to be 15.8. H&H is 8.9 And 28.9. BUN is 29 and creatinine 4.3. C reactive protein is 8.1. CT of the right stump was read as cellulitis with edema small amount of fluid outside the macular for fascia without discrete abscess identified. The patient was started on Flagyl, cefepime IV fluid bolus and vancomycin. The patient is being admitted to observation status and is being boarded in the emergency room. date of service 07/09/2022. Review of Systems Review of Systems: See HPI All systems reviewed & are unremarkable except as noted in HPI and below Constitutional: Constitutional: Reports as per HPI and Reports no additional constitutional complaints Eyes: Eyes: Reports as per HPI and Reports no additional eye complaints ENT: Reports system reviewed and no additional complaints, except as documented and Reports Normal hearing present Cardiovascular: Cardiovascular: Reports no additional cardiovascular complaints Respiratory: Respiratory: Reports no additional respiratory complaints and Reports no additional respiratory complaints Gastrointestinal: Gastrointestinal: Reports as per HPI and Reports no additional gastrointestinal complaints Musculoskeletal: Musculoskeletal: Reports no additional musculoskeletal complaints Integumentary/Breasts: Skin/Breast: Reports system reviewed and no additional complaints, except as docu and Reports as per HPI Neurologic: Reports system reviewed and no additional complaints, except as documented, Reports as per HPI and Reports Normal hearing present Psychiatric: Psychiatric: Reports no additional psychiatric complaints and Reports as per HPI Endocrine: Endocrine: Reports no additional endocrine complaints Hematologic/Lymphatic: Hematologic/Lymphatic: Reports no additional hematologic/lymphatic complaints Allergic/Immunologic: Allergic/Immunologic: Reports no additional allergic/immunologic complaints [facility] Past Medical History Medical History (Updated 07/09/22 @ 14:26 by Mary Lou Davila NP) Amputation above knee Anxiety Benign prostatic hyperplasia Bradycardic cardiac arrest (~07/23/20) In the setting of severe hyperkalemia, acute pulmonary edema, and respiratory failure Chronic anemia Congestive heart failure Echo 03/06/2021 1. Complete two-dimensional, color flow and Doppler transthoracic echocardiogram is performed. 2. Left ventricular chamber dimension is mildly enlarged. 3. Left ventricular systolic function is mildly reduced, estimated at 55-60%. 4. There is severely increased left ventricular wall thickness. Speckled appearance of the myocardium. 5. The left ventricular diastolic function is grade I diastolic dysfunction. 6. Left atrial chamber dimension is mildly enlarged. 7. There is moderate aortic valve sclerosis. 8. The mitral valve annulus is severely calcified. 9. There is mild mitral valve regurgitation. 10. The mitral valve has thickened leaflets. 11. There is mild tricuspid valve regurgitation. 12. There is mild pulmonic regurgitation. Coronary artery disease With non STEMI in January 02
--- NOTE | 2022-07-09 13:49 | ADMGEN ---
This patient, Ish Corley, was admitted to 3 [facility] Surg Room 309-01. Patient/family oriented to hospital policies and general routines including ID bracelet, bed and alarms, visiting hours, pain management, procedures, bathroom and other care routines, personal items, smoking policy, room service/diet, and visiting hours. Information on how to activate the Rapid Response Team has been discussed. Patient/Family are encouraged to report perceived risks to care and to ask questions if they do not understand what they are told or what they should do.
[2022-07-09 14:21] LABS: Glucose Point of Care 175 mg/dl (65-105)
[2022-07-09] MEDS: ONDANSETRON INJ 4 MG/2 ML VIAL IV PUSH ×2 (15:07→19:43)
[2022-07-09] MEDS: TETANUS,DIPHTHERIA,AC PERTUSSIS ADULT (0.5 ML) BOOSTRIX IM (15:22)
[2022-07-09] MEDS: NICOTINE (*PBKC) 21 MG PATCH 1 PATCH TRANSDERM (15:23)
[2022-07-09 16:58] LABS: Glucose Point of Care 178 mg/dl (65-105)
[2022-07-09] MEDS: EPOETIN ALFA-EPBX 10,000 UNITS/ML VIAL 10000 UNITS IV PUSH (16:59)
[2022-07-09] MEDS: carvediloL 3.125 MG TABLET PO (18:33)
[2022-07-09] MEDS: TICAGRELOR 60 MG TABLET PO (18:33)
[2022-07-09] MEDS: HYDROcodone/acetaminophen (*CRX) 5-325 MG TABLET 1 TAB PO (20:30)
[2022-07-09] MEDS: HEPARIN SODIUM 5,000 UNITS/ML VIAL 5000 UNITS SUB-Q (20:31)
[2022-07-09] MEDS: rOPINIRole HCL 0.25 MG TABLET PO (20:31)
[2022-07-09] MEDS: INSULIN GLARGINE (*BKC) 100 UNITS/ML 6 UNITS SUB-Q (21:26)
[2022-07-09 21:48] LABS: Glucose Point of Care 315 mg/dl (65-105)
[2022-07-10] MEDS: MORPHINE SULFATE (*CRX) 4 MG/ML INJ IV PUSH ×6 (00:04→21:19)
[2022-07-10] MEDS: metroNIDAZOLE 500 MG/ISO 100ML 500 MG/100 ML BAG 100 MG IVPB ×3 (02:17→17:10)
[2022-07-10] MEDS: HYDROcodone/acetaminophen (*CRX) 5-325 MG TABLET 1 TAB PO (02:24)
[2022-07-10 03:16] LABS: Glucose Point of Care 366 mg/dl (65-105)
[2022-07-10] MEDS: INSULIN ASPART (*BKC) 100 UNITS/ML 6 UNITS SUB-Q (03:28)
[2022-07-10 05:07] VITALS: BP 140/85; PULSE 106; RESP 16; TEMP 36.4; O2SAT 97
[2022-07-10 06:00] LABS: Basophils Absolute Auto 0.1 K/mm3 (0.0-0.1); Basophils Percent Auto 0.7 % (0.2-1.2); Eosinophils Absolute Auto 0.2 K/mm3 (0-0.3); Eosinophils Percent Auto 1.7 % (0-4.4); Hematocrit 32.1 % (42.0-52.0); Hemoglobin 9.6 g/dL (14.0-18.0); Immature Granulocyte Absolute 0.09 K/mm3 (0.00-0.031); Immature Granulocyte Percent A 0.7 % (0-0.5); Lymphocytes Absolute Auto 1.22 K/mm3 (0.9-3.2); Lymphocytes Percent Auto 9.3 % (18.3-44.2); Mean Corpuscular HGB Conc 29.9 g/dl (32-36); Mean Corpuscular Hemoglobin 30.1 pg (26-34); Mean Corpuscular Volume 100.6 fl (80-100); Mean Platelet Volume 9.7 fl (7.4-10.4); Monocytes Absolute Auto 0.6 K/mm3 (0.1-0.6); Monocytes Percent Auto 4.8 % (2.6-8.5); Neutrophils Absolute Auto 10.9 K/mm3 (1.3-6.7); Neutrophils Percent Auto 82.8 % (45.5-73.1); Platelet Count Result 377 k/mm3 (150-375); Red Blood Count 3.19 M/mm3 (4.6-6.20); Red Cell Distribution Width 16.4 % (11.5-14.5); White Blood Count 13.2 K/mm3 (4.5-10.0)
[2022-07-10 06:13] LABS: Lactic Acid Reflex 1.7 mmol/L (0.7-2.0)
[2022-07-10 06:24] LABS: Alanine Aminotransferase 9 U/L (6-50); Albumin Level 3.3 g/dL (3.5-5.1); Alkaline Phosphatase 110 U/L (38-126); Anion Gap 13 mmol/L (8-16); Aspartate Amino Transferase 28 U/L (17-59); Bilirubin,Total 0.5 mg/dL (0.2-1.3); Blood Urea Nitrogen 27 mg/dL (9-20); Calcium 8.3 mg/dL (8.4-10.2); Carbon Dioxide 27 mmol/L (22-30); Chloride 92 mmol/L (98-107); Estimated CRCL calculation 13 ml/min; Estimated Glomerular Filt Rate 15; Glucose 245 mg/dL (65-110); Phosphorus 5.3 mg/dL (2.5-4.5); Potassium 4.6 mmol/L (3.4-5.0); Sodium 132 mmol/L (137-145)
[2022-07-10 06:30] LABS: CRP 16.7 mg/dL (<1.0)
[2022-07-10 06:55] LABS: Vancomycin Random 15.1 ug/mL (10-20)
[2022-07-10 07:00] LABS: Anisocytosis 1+ (NORMAL); Hypochromasia 1+ (NORMAL); Platelet Estimate Adequate (Adequate)
[2022-07-10 07:01] LABS: Ovalocytes 1+ (NORMAL); Schistocytes 1+ (NORMAL); Target Cells 1+ (NORMAL)
[2022-07-10 07:37] LABS: Glucose Point of Care 175 mg/dl (65-105)
[2022-07-10] MEDS: CYANOCOBALAMIN 1,000 MCG TABLET 1000 MCG PO (08:26)
[2022-07-10] MEDS: CHOLECALCIFEROL 1,000 UNITS TABLET 1000 UNITS PO (08:26)
[2022-07-10] MEDS: GABAPENTIN 300 MG CAPSULE PO (08:26)
[2022-07-10] MEDS: NICOTINE (*PBKC) 21 MG PATCH 1 PATCH TRANSDERM (08:26)
[2022-07-10 08:27] VITALS: PULSE 98
[2022-07-10] MEDS: carvediloL 3.125 MG TABLET PO ×2 (08:27→17:10)
[2022-07-10] MEDS: SERTRALINE HCL 50 MG TABLET 100 MG PO (08:27)
[2022-07-10] MEDS: ATORVASTATIN 40 MG TABLET 80 MG PO (08:27)
[2022-07-10] MEDS: TICAGRELOR 60 MG TABLET PO ×2 (08:27→17:10)
[2022-07-10] MEDS: FAMOTIDINE 20 MG TABLET BY MOUTH (08:27)
[2022-07-10] MEDS: ASPIRIN 81 MG CHEWABLE TABLET PO (08:27)
[2022-07-10] MEDS: VITAMIN B CMPLX/VIT C/FOLIC AC 1 CAPSULE 1 CAP PO (08:27)
[2022-07-10] MEDS: ONDANSETRON INJ 4 MG/2 ML VIAL IV PUSH ×2 (08:32→17:09)
[2022-07-10] MEDS: INSULIN GLARGINE (*BKC) 100 UNITS/ML 8 UNITS SUB-Q (08:42)
--- NOTE | 2022-07-10 09:51 | PM.IMPN ---
Progress Note: A&P Assessment and Plan (1) Cellulitis: Code(s): L03.90 - Cellulitis, unspecified Status: Acute Assessment and Plan: Right lower extremity. Presented with redness and pain of right stump CT of the knee showed cellulitis with edema and small amount of fluid outside the muscular fascia with no evidence of abscess continue broad-spectrum antibiotics while awaiting cultures. Continue cefepime, vancomycin, and Flagyl blood cultures pending received tetanus booster on 07/09 as patient endorses recent instrumentation with hunting knife (reports to LLE only) supportive care. analgesics available as needed WBC trending down. remains afebrile. CRP 16.7 (2) Diabetes mellitus: Code(s): E11.9 - Type 2 diabetes mellitus without complications Status: Chronic Assessment and Plan: Fasting glucose 245 today patient reports concerns regarding glucose control. States average blood sugar is 120 at home A1c is pending continue Accu-Cheks, sliding scale insulin, hypoglycemic protocol continue home Lantus 8 units qAM and 6 units qHS monitor glucose trends and adjust insulin regimen as needed (3) ESRD (end stage renal disease) on dialysis: Code(s): N18.6 - End stage renal disease; Z99.2 - Dependence on renal dialysis Status: Chronic Assessment and Plan: maintained on hemodialysis on Mondays, Wednesdays, and Fridays last dialysis was Monday, 07/08 nephrology has been consulted to continue dialysis during admission (4) CHF (congestive heart failure): Qualifiers: Heart failure chronicity: unspecified Heart failure type: unspecified Qualified Code(s): I50.9 - Heart failure, unspecified Code(s): I50.9 - Heart failure, unspecified Status: Acute Assessment and Plan: euvolemic at this time patient with history of flash pulmonary edema and respiratory failure avoid IV fluids and monitor volume status closely (5) Chronic anemia: Code(s): D64.9 - Anemia, unspecified Status: Acute Assessment and Plan: secondary to ESRD no acute issues at this time. Continue to monitor H&H (6) Smoking: Code(s): F17.200 - Nicotine dependence, unspecified, uncomplicated Status: Acute Assessment and Plan: continue to smoke 1 pack per day continue nicotine patch during admission continue to encourage smoking cessation (7) HTN (hypertension): Code(s): I10 - Essential (primary) hypertension Status: Acute Assessment and Plan: blood pressures have been well controlled. Last BP 140/85 continue carvedilol monitor BP trends Subjective Date/time seen: 07/10/22 09:51 Interval history: Date of service: 07/10/2022 Ish Corley is a 56-year-old male with a history of ESRD on hemodialysis, diabetes mellitus, right leg below-knee amputation, left leg above knee amputation, CHF, seizure disorder, hypertension, and multiple other medical problems who is seen in follow-up for cellulitis of the right stump. The patient states he did not sleep well last night due to pain. He describes 9/10 pain of his right stump. he states there is a blistered area but no drainage. He admits that he was removing lesions from his skin but states healing to this on the left leg and did not ever touched the right stump. He states that he had 100s of large pimples that he has shaved off using a hunting knife that he cleaned with alcohol. He states following removal, he had no drainage or bleeding and eventually the area dried up and scabbed over. He has been doing this for quite some time and feels that he is usually able to manage this on his own at home due to his history of working at [employer] for many years. he expresses concerns regarding his blood sugar control. He states he typically has his blood sugar in the 120s at home and each time he is in the hospital his b
[2022-07-10 10:53] LABS: Hemoglobin A1C 7.9 % (<5.7)
[2022-07-10 11:31] LABS: Glucose Point of Care 270 mg/dl (65-105)
[2022-07-10] MEDS: INSULIN ASPART (*BKC) 100 UNITS/ML SUB-Q (11:40)
--- NOTE | 2022-07-10 13:09 | PM.CNNEP ---
Assessment and Plan Assessment and plan (1) ESRD (end stage renal disease): Code(s): N18.6 - End stage renal disease Status: Chronic Assessment and Plan: HD yesterday continue 4x/week schedule of M/W/F/Sat follow electrolytes, volume status, and clearance plan HD tomorrow (2) Cellulitis: Code(s): L03.90 - Cellulitis, unspecified Status: Acute Assessment and Plan: based on exam and imaging CT of the right leg with cellulitis with edema small amount of pleural fluid outside the vascular fascia without discrete abscess identified started on broad spectrum antibiotics blood cultures are pending follow clinic exam (3) Hypertension: Code(s): I10 - Essential (primary) hypertension Status: Chronic Assessment and Plan: has been quite erratic in the past history of HTN urgency leading to flash pulmonary edema and acute respiratory distress (usually requiring intubation) this has been better controlled with dialysis 4 days/week follow trend of hemodynamics (4) Anemia: Code(s): D64.9 - Anemia, unspecified Status: Chronic Assessment and Plan: due to ESRD and acute illness Epogen with HD follow trend of H/H (5) IDDM (insulin dependent diabetes mellitus): Status: Chronic Assessment and Plan: follow accuchecks glycemic control Will continue to follow. History of Present Illness Reason for Consult Consult date: 07/10/22 Reason for consult: end stage renal disease Chief Complaint Chief complaint: Cellulitis History of Present Illness Narrative: The patient is a 56-year-old male patientWith a past medical history as outlined below who presented to [facility] Emergency room due to concern of a right lower extremity stump infection. The pat of the patient has noted a purplish rash on his right lower extremity stump that he thought was possibly calciphylaxis. He denies any type of injury to that area but he does report getting nodules sometimes and he apparently cuts these lesions off with his pocket knife. he does have pain associated with that area on his right lower extremity stump and it is worse with movement and better with rest. He does wear a prosthesis for his right lower extremity stump but he does not think this would have caused this type injury. Because of the persistence of these symptoms, he presented to the emergency room for further evaluation Workup and evaluation emergency room demonstrated patient be hemodynamically stable and in no acute distress. Routine blood test demonstrated labs consistent with his known history of end-stage renal disease and his CBC showed an elevated white blood cell count, mild anemia, and elevated C reactive protein. A CT scan of the right stump was read as cellulitis with edema and a small amount of fluid present without discrete abscess formation. Given his constellation symptoms and laboratory as well as imaging findings, appropriate cultures were obtained and he was started on broad-spectrum IV antibiotic therapy with subsequent admission to the hospital for further evaluation and therapy. It should be noted the patient was recently hospitalized for what appeared to be in AV fistula infection but he had to be transferred to another facility as vascular surgery services were unavailable here [facility]. Subsequently, during that hospitalization, his AV fistula clotted off and he had to have a new tunneled dialysis catheter placed for ongoing dialysis needs. Renal consultation was requested due to his end-stage renal disease. The patient normally dialyzes on a Monday, Monday, Monday, and Monday schedule under the care of Dr. Luke Huynh at [facility]. As mentioned above, his last dialysis treatment was on 07/08/2022. Anders does have numerous hospitalizations for flash pulmonary edema/hypertensive urgency necessitating intubation and [facility]
[2022-07-10 14:00] VITALS: BP 123/46; PULSE 86; RESP 16; TEMP 36.1; O2SAT 98
[2022-07-10 16:45] LABS: Glucose Point of Care 67 mg/dl (65-105)
[2022-07-10 17:03] LABS: Glucose Point of Care 67 mg/dl (65-105)
[2022-07-10 17:10] VITALS: PULSE 96
[2022-07-10] MEDS: CEFEPIME 0.5 GM in DEXTROSE 5% IN WATER 50 ML IVPB (17:11)
[2022-07-10 17:48] LABS: Glucose Point of Care 83 mg/dl (65-105)
[2022-07-10 19:58] VITALS: PULSE 96; RESP 16; O2SAT 98
[2022-07-10] MEDS: INSULIN GLARGINE (*BKC) 100 UNITS/ML 6 UNITS SUB-Q (21:05)
[2022-07-10] MEDS: rOPINIRole HCL 0.25 MG TABLET PO (21:06)
[2022-07-10 21:12] LABS: Glucose Point of Care 138 mg/dl (65-105)
[2022-07-10 22:00] VITALS: BP 121/70; PULSE 105; RESP 16; TEMP 36.2; O2SAT 98
[2022-07-11] VITALS (16 sets, daily range): BP systolic 84–122; BP diastolic 45–77; PULSE 77–110; RESP 16–17; TEMP 35.5–36.8; O2SAT 98–100; BMI 18.5
[2022-07-11] MEDS: MORPHINE SULFATE (*CRX) 4 MG/ML INJ IV PUSH ×5 (01:32→20:26)
[2022-07-11] MEDS: metroNIDAZOLE 500 MG/ISO 100ML 500 MG/100 ML BAG 100 MG IVPB ×3 (02:00→20:33)
[2022-07-11] MEDS: ONDANSETRON INJ 4 MG/2 ML VIAL IV PUSH ×2 (06:11→20:24)
[2022-07-11 06:19] LABS: Hematocrit 33.5 % (42.0-52.0); Hemoglobin 10.2 g/dL (14.0-18.0); Mean Corpuscular HGB Conc 30.4 g/dl (32-36); Mean Corpuscular Hemoglobin 30.4 pg (26-34); Mean Corpuscular Volume 99.7 fl (80-100); Mean Platelet Volume 9.5 fl (7.4-10.4); Platelet Count Result 460 k/mm3 (150-375); Red Blood Count 3.36 M/mm3 (4.6-6.20); Red Cell Distribution Width 17.1 % (11.5-14.5); White Blood Count 10.4 K/mm3 (4.5-10.0)
[2022-07-11 07:06] LABS: Anion Gap 10 mmol/L (8-16); Blood Urea Nitrogen 37 mg/dL (9-20); Carbon Dioxide 27 mmol/L (22-30); Chloride 92 mmol/L (98-107); Estimated CRCL calculation 9 ml/min; Estimated Glomerular Filt Rate 9; Glucose 125 mg/dL (65-110); Potassium 4.7 mmol/L (3.4-5.0); Sodium 129 mmol/L (137-145)
[2022-07-11 07:33] LABS: Glucose Point of Care 174 mg/dl (65-105)
[2022-07-11 07:56] LABS: CRP 29.2 mg/dL (<1.0)
[2022-07-11] MEDS: CHOLECALCIFEROL 1,000 UNITS TABLET 1000 UNITS PO (08:50)
[2022-07-11] MEDS: TICAGRELOR 60 MG TABLET PO (08:50)
[2022-07-11] MEDS: GABAPENTIN 300 MG CAPSULE PO (08:50)
[2022-07-11] MEDS: SERTRALINE HCL 50 MG TABLET 100 MG PO (08:50)
[2022-07-11] MEDS: CYANOCOBALAMIN 1,000 MCG TABLET 1000 MCG PO (08:50)
[2022-07-11] MEDS: carvediloL 3.125 MG TABLET PO (08:50)
[2022-07-11] MEDS: ATORVASTATIN 40 MG TABLET 80 MG PO (08:50)
[2022-07-11] MEDS: NICOTINE (*PBKC) 21 MG PATCH 1 PATCH TRANSDERM (08:51)
[2022-07-11] MEDS: INSULIN GLARGINE (*BKC) 100 UNITS/ML 8 UNITS SUB-Q (08:53)
[2022-07-11] MEDS: LORazepam (*CRX) 1 MG TABLET PO (08:59)
[2022-07-11 11:26] LABS: Glucose Point of Care 122 mg/dl (65-105)
--- NOTE | 2022-07-11 11:32 | PC.NURSE ---
Patient refused bed alarm / chair alarm during morning physical assessment @ 0850. I educated patient on safety. Patient still refusing, but willing to show me how he transfers. Patient transferred safely into the bed from his wheelchair @ 1031. javascript ui developer & Glass Edger notified of bed / chair alarm refusal.
--- NOTE | 2022-07-11 11:47 | PM.IMPN ---
Progress Note: A&P Assessment and Plan (1) Cellulitis: Code(s): L03.90 - Cellulitis, unspecified Status: Acute (2) Diabetes mellitus: Code(s): E11.9 - Type 2 diabetes mellitus without complications Status: Chronic (3) ESRD (end stage renal disease) on dialysis: Code(s): N18.6 - End stage renal disease; Z99.2 - Dependence on renal dialysis Status: Chronic (4) CHF (congestive heart failure): Qualifiers: Heart failure type: unspecified Heart failure chronicity: unspecified Qualified Code(s): I50.9 - Heart failure, unspecified Code(s): I50.9 - Heart failure, unspecified Status: Acute Assessment and Plan: (5) Chronic anemia: Code(s): D64.9 - Anemia, unspecified Status: Acute (6) Smoking: Code(s): F17.200 - Nicotine dependence, unspecified, uncomplicated Status: Acute (7) HTN (hypertension): Code(s): I10 - Essential (primary) hypertension Status: Acute Plan 56-year-old male with a history of ESRD on hemodialysis, diabetes mellitus, right leg below-knee amputation, left leg above knee amputation, CHF, seizure disorder, hypertension, and multiple other medical problems presented with cellulitis of the right stump. 1)Right Stump Cellulitis continue broad-spectrum antibiotics while awaiting cultures. Continue cefepime, vancomycin, and Flagyl blood cultures pending received tetanus booster on 07/09 as patient endorses recent instrumentation with hunting knife (reports to LLE only) supportive care. analgesics available as needed improving leucocytosis 2)Diabetes Mellitus: BG check TID AC and HS c/w BID lantus+meal time insulin Adjust dose as needed 3)ESRD on HD: maintained on hemodialysis on Mondays, Wednesdays, and Fridays Appreciate Renal Help 4)H/o CHF: euvolemic at this time patient with history of flash pulmonary edema and respiratory failure avoid IV fluids and monitor volume status closely 5)Anemia of Chronic Disease: secondary to ESRD no acute issues at this time. Continue to monitor H&H 6)HTN: blood pressures have been well controlled. continue carvedilol monitor BP trends 7)DVT ppx:hep SQ 8)Code:Full 9)Dispo:pending improvement Time Spent With Patient Time with patient: 15 - 25 minutes Subjective Date/time seen: 07/11/22 11:47 Interval history: no acute events overnight, pleasant, having breakfast Review of Systems Review of Systems: All systems reviewed & are unremarkable except as noted in HPI and below Constitutional: Constitutional: Reports no additional constitutional complaints Eyes: Eyes: Reports no additional eye complaints ENT: Reports system reviewed and no additional complaints, except as documented Cardiovascular: Cardiovascular: Reports no additional cardiovascular complaints Respiratory: Respiratory: Reports no additional respiratory complaints Gastrointestinal: Gastrointestinal: Reports no additional gastrointestinal complaints Musculoskeletal: Musculoskeletal: Reports no additional musculoskeletal complaints Integumentary/Breasts: Skin/Breast: Reports system reviewed and no additional complaints, except as docu Neurologic: Reports system reviewed and no additional complaints, except as documented Exam Const: General: comfortable and no acute distress HENMT: Mouth: Yes moist mucous membranes Eyes: General: appearance normal, both eyes and all related structures Neck: Neck: supple Resp: Effort & Inspection: normal respiratory effort Auscultation: clear to auscultation bilaterally Cardio: Rate: regular rate Rhythm: regular rhythm GI: GI Palp: Yes Soft to palpation Auscultation: normal bowel sounds Skin: Other: patient has a rash all over his right arm possibly calciphylaxis. The patient has multiple scarring to his left above the knee thigh area. The patient appears to have redness on the stump on t
--- NOTE | 2022-07-11 13:30 | PM.PNNEP ---
Progress Note: A&P Assessment and Plan (1) ESRD (end stage renal disease): Code(s): N18.6 - End stage renal disease Status: Chronic Assessment and Plan: HD today continue 4x/week schedule of M/W/F/Sat follow electrolytes, volume status, and clearance (2) Cellulitis: Code(s): L03.90 - Cellulitis, unspecified Status: Acute Assessment and Plan: based on exam and imaging CT of the right leg with cellulitis with edema small amount of pleural fluid outside the vascular fascia without discrete abscess identified started on broad spectrum antibiotics blood cultures are pending follow clinic exam (3) Hypertension: Code(s): I10 - Essential (primary) hypertension Status: Chronic Assessment and Plan: has been quite erratic in the past history of HTN urgency leading to flash pulmonary edema and acute respiratory distress (usually requiring intubation) this has been better controlled with dialysis 4 days/week follow trend of hemodynamics (4) Anemia: Code(s): D64.9 - Anemia, unspecified Status: Chronic Assessment and Plan: due to ESRD and acute illness Epogen with HD follow trend of H/H (5) IDDM (insulin dependent diabetes mellitus): Status: Chronic Assessment and Plan: follow accuchecks glycemic control Will continue to follow. Subjective Date/time seen: 07/11/22 13:30 No new issues or problems to report at this time; due for dialysis later today; eating and drinking okay; no apparent distress noted; no issues/events overnight or earlier this morning. Exam Narrative: General: WD/WN male in NAD Heart: normal S1 and S2; no rub Lungs: clear to auscultation Abdomen: soft, nontender, nondistended, positive bowel sounds Extremities: no cyanosis or clubbing; no edema Skin: left leg stump with numerous excoriations and scabs; right stump with erythema and tenderness to touch Objective Data Vital Signs Vital Signs: Vital Signs Temp Pulse Resp BP Pulse Ox O2 Del Method 07/11/22 08:50 Room Air 07/11/22 08:50 84 07/11/22 06:00 36.4 C 100 16 117/77 98 07/10/22 22:00 36.2 C L 105 H 16 121/70 98 07/10/22 19:58 96 16 98 Room Air 07/10/22 17:10 96 Intake/Output Intake/Output: Intake & Output 08/26/22 08/27/22 08/28/22 08/29/22 23:59 23:59 23:59 23:59 Intake Total 200 1260 750 Output Total 1500 0 Balance -1300 1260 750 Meds/Results Medications: Active Medications Generic Name Dose Route Start Last Admin Trade Name Freq PRN Reason Stop Dose Admin Acetaminophen 650 mg 07/09/22 09:36 Acetaminophen 325 Mg Tablet PO Q4H PRN Mild Pain (1-3) or Fever Hydrocodone Bitart/Acetaminophen 1 tab 07/09/22 09:36 07/10/22 02:24 Hydrocodone/Acetaminophen (*Crx) 5-325 Mg Tablet PO 1 tab Q4H PRN Administration Pain Rated 4-6 Albuterol 1 puff 07/09/22 17:14 Albuterol Sulfate (*Sp) Aerosol 1 Puff INHALATION QIDRT PRN Shortness Of Breath Aspirin 81 mg 07/10/22 08:00 07/10/22 08:27 Aspirin 81 Mg Chewable Tablet PO 81 mg DAILY@0800 MARTHA Administration Atorvastatin Calcium 80 mg 07/10/22 09:00 07/11/22 08:50 Atorvastatin 40 Mg Tablet PO 80 mg DAILY MARTHA Administration Carvedilol 3.125 mg 07/09/22 17:00 07/11/22 08:50 Carvedilol 3.125 Mg Tablet PO 3.125 mg BIDWM MARTHA Administration Cyanocobalamin 1,000 mcg 07/10/22 09:00 07/11/22 08:50 Cyanocobalamin 1,000 Mcg Tablet PO 1,000 mcg QAM MARTHA Administration Dextrose 12.5 gm 07/09/22 14:17 Dextrose 50% 25 Gm/50 Ml Syringe IV PUSH PRN PRN Hypoglycemia Protocol Epoetin Johnnie-epbx 10,000 units 07/11/22 22:32 Epoetin Johnnie-Epbx 10,000 Units/Ml Vial IV PUSH 07/11/22 22:33 ONCE ONE Famotidine 20 mg 07/10/22 09:00 07/10/22 08:27 Famotidine 20 Mg Tablet BY MOUTH 20 mg DAILY [facility] Admi
--- NOTE | 2022-07-11 13:30 | P.PNNP_ITS ---
Progress Note: A&P Assessment and Plan (1) ESRD (end stage renal disease): Code(s): N18.6 - End stage renal disease Status: Chronic Assessment and Plan: * HD today * continue 4x/week schedule of M/W/F/Sat * follow electrolytes, volume status, and clearance (2) Cellulitis: Code(s): L03.90 - Cellulitis, unspecified Status: Acute Assessment and Plan: * based on exam and imaging * CT of the right leg with cellulitis with edema small amount of pleural fluid outside the vascular fascia without discrete abscess identified * started on broad spectrum antibiotics * blood cultures are pending * follow clinic exam (3) Hypertension: Code(s): I10 - Essential (primary) hypertension Status: Chronic Assessment and Plan: * has been quite erratic in the past * history of HTN urgency leading to flash pulmonary edema and acute respiratory distress (usually requiring intubation) * this has been better controlled with dialysis 4 days/week * follow trend of hemodynamics (4) Anemia: Code(s): D64.9 - Anemia, unspecified Status: Chronic Assessment and Plan: * due to ESRD and acute illness * Epogen with HD * follow trend of H/H (5) IDDM (insulin dependent diabetes mellitus): Status: Chronic Assessment and Plan: * follow accuchecks * glycemic control Will continue to follow. Subjective Date/time seen: 07/11/22 13:30 No new issues or problems to report at this time; due for dialysis later today; eating and drinking okay; no apparent distress noted; no issues/events overnight or earlier this morning. Exam Narrative: General: WD/WN male in NAD Heart: normal S1 and S2; no rub Lungs: clear to auscultation Abdomen: soft, nontender, nondistended, positive bowel sounds Extremities: no cyanosis or clubbing; no edema Skin: left leg stump with numerous excoriations and scabs; right stump with erythema and tenderness to touch Objective Data Vital Signs Vital Signs: Vital Signs Temp Pulse Resp BP Pulse Ox O2 Del Method 07/11/22 08:50 Room Air 07/11/22 08:50 84 07/11/22 06:00 36.4 C 100 16 117/77 98 07/10/22 22:00 36.2 C L 105 H 16 121/70 98 07/10/22 19:58 96 16 98 Room Air 07/10/22 17:10 96 Intake/Output Intake/Output: Intake & Output 07/08/22 07/09/22 07/10/22 07/11/22 23:59 23:59 23:59 23:59 Intake Total 200 1260 750 Output Total 1500 0 Balance -1300 1260 750 Meds/Results Medications: Active Medications Generic Name Dose Route Start Last Admin Trade Name Freq PRN Reason Stop Dose Admin Acetaminophen 650 mg 07/09/22 09:36 Acetaminophen 325 Mg Tablet PO Q4H PRN Mild Pain (1-3) or Fever Hydrocodone Bitart/Acetaminophen 1 tab 07/09/22 09:36 07/10/22 02:24 Hydrocodone/Acetaminophen (*Crx) 5-325 Mg Tablet PO 1 tab Q4H PRN Administration Pain Rated 4-6 Albuterol 1 puff 07/09/22 17:14 Albuterol Sulfate (*Sp) Aerosol 1 Puff INHALATION QIDRT PRN Shortness Of Breath Aspirin 81 mg 07/10/22 08:00 07/10/22 08:27
[2022-07-11 15:13] LABS: Glucose Point of Care 44 mg/dl (65-105)
[2022-07-11 15:36] LABS: Glucose Point of Care 85 mg/dl (65-105)
[2022-07-11] MEDS: DEXTROSE 50% 25 GM/50 ML SYRINGE IV PUSH (15:48)
[2022-07-11 16:21] LABS: Glucose Point of Care 131 mg/dl (65-105)
--- NOTE | 2022-07-11 17:42 | PC.NURSE ---
To dialysis per bed @ 1735. Unable to administer IVPB Cefepime per Label Comments. Will pass along to night RN.
[2022-07-11 18:11] LABS: Vancomycin Random 21.9 ug/mL (10-20)
[2022-07-11 18:37] LABS: Hepatitis B Surface Antigen Negative (Negative)
[2022-07-11] MEDS: EPOETIN ALFA-EPBX 10,000 UNITS/ML VIAL 10000 UNITS IV PUSH (18:54)
[2022-07-11] MEDS: ALBUMIN HUMAN 25% 12.5 GM/50ML 50 ML IVPB (18:54)
[2022-07-11] MEDS: HEPARIN SODIUM 1,000 UNITS/ML VIAL 5000 UNITS (18:54)
[2022-07-11 18:55] LABS: Hepatitis B Surface Anti Res Negative
[2022-07-11] MEDS: SODIUM CHLORIDE 0.9% IV 1,000 ML 999 ML IV CONT (18:55)
[2022-07-11 20:05] LABS: Glucose Point of Care 169 mg/dl (65-105)
[2022-07-11] MEDS: rOPINIRole HCL 0.25 MG TABLET PO (20:29)
[2022-07-11] MEDS: CEFEPIME 0.5 GM in DEXTROSE 5% IN WATER 50 ML IVPB (20:32)
[2022-07-11] MEDS: INSULIN GLARGINE (*BKC) 100 UNITS/ML 6 UNITS SUB-Q (20:34)
[2022-07-12] MEDS: MORPHINE SULFATE (*CRX) 4 MG/ML INJ IV PUSH ×2 (00:10→05:44)
[2022-07-12] MEDS: metroNIDAZOLE 500 MG/ISO 100ML 500 MG/100 ML BAG 100 MG IVPB ×3 (02:15→17:20)
[2022-07-12 04:00] VITALS: BP 109/53; PULSE 89; RESP 16; TEMP 36.4; O2SAT 95
[2022-07-12 06:00] LABS: Anion Gap 16 mmol/L (8-16); Blood Urea Nitrogen 30 mg/dL (9-20); Calcium 8.5 mg/dL (8.4-10.2); Carbon Dioxide 33 mmol/L (22-30); Chloride 90 mmol/L (98-107); Estimated CRCL calculation 10 ml/min; Estimated Glomerular Filt Rate 10; Glucose 79 mg/dL (65-110); Potassium 4.1 mmol/L (3.4-5.0); Sodium 139 mmol/L (137-145)
[2022-07-12 07:59] LABS: Glucose Point of Care 70 mg/dl (65-105)
[2022-07-12] MEDS: CYANOCOBALAMIN 1,000 MCG TABLET 1000 MCG PO (08:35)
[2022-07-12] MEDS: CHOLECALCIFEROL 1,000 UNITS TABLET 1000 UNITS PO (08:35)
[2022-07-12] MEDS: FAMOTIDINE 20 MG TABLET BY MOUTH (08:35)
[2022-07-12] MEDS: SERTRALINE HCL 50 MG TABLET 100 MG PO (08:35)
[2022-07-12] MEDS: TICAGRELOR 60 MG TABLET PO ×2 (08:35→17:20)
[2022-07-12] MEDS: ATORVASTATIN 40 MG TABLET 80 MG PO (08:35)
[2022-07-12 08:36] VITALS: PULSE 107
[2022-07-12] MEDS: carvediloL 3.125 MG TABLET PO ×2 (08:36→17:20)
[2022-07-12] MEDS: ASPIRIN 81 MG CHEWABLE TABLET PO (08:36)
[2022-07-12] MEDS: GABAPENTIN 300 MG CAPSULE PO (08:36)
[2022-07-12] MEDS: NICOTINE (*PBKC) 21 MG PATCH 1 PATCH TRANSDERM (08:37)
[2022-07-12] MEDS: HEPARIN SODIUM 5,000 UNITS/ML VIAL 5000 UNITS SUB-Q ×2 (08:37→20:48)
[2022-07-12] MEDS: VITAMIN B CMPLX/VIT C/FOLIC AC 1 CAPSULE 1 CAP PO (08:37)
[2022-07-12 10:27] LABS: Glucose Point of Care 78 mg/dl (65-105)
[2022-07-12] MEDS: MORPHINE SULFATE (*CRX) 2 MG/ML INJ IV PUSH ×2 (11:21→22:28)
[2022-07-12] MEDS: PANTOPRAZOLE SODIUM IV 40 MG VIAL IV PUSH (11:39)
[2022-07-12 11:53] LABS: Glucose Point of Care 93 mg/dl (65-105)
--- NOTE | 2022-07-12 12:39 | PM.PNNEP ---
Progress Note: A&P Assessment and Plan (1) ESRD (end stage renal disease): Code(s): N18.6 - End stage renal disease Status: Chronic Assessment and Plan: HD tomorrow continue 4x/week schedule of M/W/F/Sat follow electrolytes, volume status, and clearance (2) Cellulitis: Code(s): L03.90 - Cellulitis, unspecified Status: Acute Assessment and Plan: based on exam and imaging CT of the right leg with cellulitis with edema small amount of pleural fluid outside the vascular fascia without discrete abscess identified on broad spectrum antibiotics blood cultures with no growth follow clinic exam (3) Hypertension: Code(s): I10 - Essential (primary) hypertension Status: Chronic Assessment and Plan: has been quite erratic in the past history of HTN urgency leading to flash pulmonary edema and acute respiratory distress (usually requiring intubation) this has been better controlled with dialysis 4 days/week follow trend of hemodynamics (4) Anemia: Code(s): D64.9 - Anemia, unspecified Status: Chronic Assessment and Plan: due to ESRD and acute illness Epogen with HD follow trend of H/H (5) IDDM (insulin dependent diabetes mellitus): Status: Chronic Assessment and Plan: follow accuchecks glycemic control Will continue to follow. Subjective Date/time seen: 07/12/22 12:39 Did not tolerate hemodialysis yesterday as had persistent hypotension leading to no significant fluid removal and eventually terminating dialysis treatment early; no apparent distress noted; feels reasonably well. Exam Narrative: General: WD/WN male in NAD Heart: normal S1 and S2; no rub Lungs: clear to auscultation Abdomen: soft, nontender, nondistended, positive bowel sounds Extremities: no cyanosis or clubbing; no edema Skin: left leg stump with numerous excoriations and scabs; right stump with erythema Objective Data Vital Signs Vital Signs: Vital Signs Temp Pulse Resp BP Pulse Ox O2 Del Method 07/12/22 08:45 Room Air 07/12/22 08:36 107 H 07/12/22 04:00 36.4 C L 89 16 109/53 L 95 07/11/22 20:00 110 H 17 98 Room Air 07/11/22 22:00 36.7 C 110 H 17 105/60 98 07/11/22 19:10 88 88/54 L 07/11/22 19:00 87 92/48 L 07/11/22 18:55 89 104/47 L 07/11/22 18:51 91 89/46 L 07/11/22 19:20 36.7 C 82 16 113/53 L 07/11/22 18:48 99 86/45 L 07/11/22 18:20 99 104/58 L 07/11/22 18:00 96 122/62 07/11/22 18:40 94 84/52 L 07/11/22 17:30 36.8 C 104 H 16 117/60 07/11/22 17:40 97 119/62 07/11/22 14:00 35.7 C L 77 16 109/58 L 100 Intake/Output Intake/Output: Intake & Output 07/09/22 07/10/22 07/11/22 07/12/22 23:59 23:59 23:59 23:59 Intake Total 200 1260 1940 1150 Output Total 1500 0 400 Balance -1300 1260 1540 1150 Meds/Results Medications: Active Medications Generic Name Dose Route Start Last Admin Trade Name Freq PRN Reason Stop Dose Admin Acetaminophen 650 mg 07/09/22 09:36 Acetaminophen 325 Mg Tablet PO Q4H PRN Mild Pain (1-3) or Fever Hydrocodone Bitart/Acetaminophen 1 tab 07/09/22 09:36 07/10/22 02:24 Hydrocodone/Acetaminophen (*Crx) 5-325 Mg Tablet PO 1 tab Q4H PRN Administration Pain Rated 4-6 Albuterol 1 puff 07/09/22 17:14 Albuterol Sulfate (*Sp) Aerosol 1 Puff INHALATION QIDRT PRN Shortness Of Breath Aspirin 81 mg 07/10/22 08:00 07/12/22 08:36 Aspirin 81 Mg Chewable Tablet PO 81 mg DAILY@0800 [facility] Administration Atorvastatin Calcium 80 mg 07/10/22 09:00 07/12/22 08:35 Atorvastatin 40 Mg Tablet PO 80 mg DAILY MARTHA Administration Carvedilol 3.125 mg 07/09/22 17:00 07/12/22 08:36 Carvedilol 3.125 Mg Tablet PO 3.125 mg BIDWM MARTHA Administration Cyanocobalamin 1,000 mcg 07/10/22 09:00 07/12/22 08:35 Cyanoco
[2022-07-12 14:00] VITALS: BP 128/64; PULSE 96; RESP 18; TEMP 36.5; O2SAT 99
--- NOTE | 2022-07-12 14:04 | PM.IMPN ---
Progress Note: A&P Assessment and Plan (1) Cellulitis: Code(s): L03.90 - Cellulitis, unspecified Status: Acute Assessment and Plan: continue broad-spectrum antibiotics while awaiting cultures- Day 3 of 10 renally-dosed cefepime, vancomycin, and Flagyl blood cultures negative to date. received tetanus booster on 07/09? as patient endorses recent instrumentation with hunting knife (reports to LLE only) supportive care. analgesics available as needed. Encourage oral pain medication and wean morphine. leucocytosis resolved. Transition to oral antibiotics in 24 hours if still afebrile. He will likely need MRSA coverage, given report of pustules/purulent lesions (2) Diabetes mellitus: Code(s): E11.9 - Type 2 diabetes mellitus without complications Status: Chronic Assessment and Plan: BG check TID AC and HS c/w BID lantus+meal time insulin POC glucose 70- 150. am lantus held. continue pm lantus. Adjust dose as needed (3) ESRD (end stage renal disease) on dialysis: Code(s): N18.6 - End stage renal disease; Z99.2 - Dependence on renal dialysis Status: Chronic Assessment and Plan: Nephrology following. continue HD Mondays, Wednesdays, Fridays and Saturdays (4) CHF (congestive heart failure): Qualifiers: Heart failure type: unspecified Heart failure chronicity: unspecified Qualified Code(s): I50.9 - Heart failure, unspecified Code(s): I50.9 - Heart failure, unspecified Status: Chronic Assessment and Plan: Not in acute exacerbation. patient with history of flash pulmonary edema and respiratory failure avoid IV fluids and monitor volume status closely (5) Chronic anemia: Code(s): D64.9 - Anemia, unspecified Status: Chronic Assessment and Plan: secondary to ESRD no acute issues at this time.? Continue to monitor H&H (6) Smoking: Code(s): F17.200 - Nicotine dependence, unspecified, uncomplicated Status: Acute Assessment and Plan: Counseled to quit. Nicotine patch while inpatient. (7) HTN (hypertension): Code(s): I10 - Essential (primary) hypertension Status: Chronic Assessment and Plan: Episode of hypotension during HD yesterday. continue carvedilol as BP allows. monitor BP trends (8) Constipation: Code(s): K59.00 - Constipation, unspecified Status: Acute Assessment and Plan: Start miralax daily. PRN bisacodyl suppository. (9) Nausea & vomiting: Code(s): R11.2 - Nausea with vomiting, unspecified Status: Acute Assessment and Plan: Possibly 2/2 constipation, GERD, gastroparesis, ?withdrawal symptom KUB without obstruction. Bowel regimen as above. Change famotidine to Protonix daily. Plan CODE STATUS: FULL CODE Disposition: home when medically stable. Time Spent With Patient Time with patient: 15 - 25 minutes Subjective Date/time seen: 07/12/22 14:04 Interval history: Patient is a 56-year-old male with a history of ESRD on hemodialysis MWF, insulin dependent diabetes mellitus, right leg below-knee amputation, left leg above knee amputation,?HFpEF,? seizure disorder, hypertension, and multiple other medical problems who presented with cellulitis of the right stump. Patient reports emesis x2 today. He reports it is brown in color, clear, and not coffee-ground. He has not had a BM for more than 3 days. No c/o abd distention/pain , chest pain or SOB. He attributes his emesis to missing his top dentures and reports this is intermittent and started approximately 2 weeks ago. He has a poor appetite. He denies early satiety. He had low BP yesterday and HD was terminated early. RLE wounds appear improved. Review of Systems Review of Systems: All systems reviewed & are unremarkable except as noted in HPI and below Exam Narrative: General: thin, non-toxic, chronically-ill appearing adult ma
[2022-07-12] MEDS: polyethylene glycoL 3350 17 GM POWD.PACK PO (14:55)
[2022-07-12 16:27] LABS: Basophils Percent Auto 0.4 % (0.2-1.2); Eosinophils Absolute Auto 0.2 K/mm3 (0-0.3); Eosinophils Percent Auto 2.3 % (0-4.4); Hematocrit 29.9 % (42.0-52.0); Hemoglobin 9.3 g/dL (14.0-18.0); Immature Granulocyte Absolute 0.03 K/mm3 (0.00-0.031); Immature Granulocyte Percent A 0.4 % (0-0.5); Lymphocytes Absolute Auto 1.21 K/mm3 (0.9-3.2); Lymphocytes Percent Auto 17.4 % (18.3-44.2); Mean Corpuscular HGB Conc 31.1 g/dl (32-36); Mean Corpuscular Hemoglobin 30.3 pg (26-34); Mean Corpuscular Volume 97.4 fl (80-100); Mean Platelet Volume 9.3 fl (7.4-10.4); Monocytes Absolute Auto 0.4 K/mm3 (0.1-0.6); Monocytes Percent Auto 6.3 % (2.6-8.5); Neutrophils Absolute Auto 5.1 K/mm3 (1.3-6.7); Neutrophils Percent Auto 73.2 % (45.5-73.1); Platelet Count Result 552 k/mm3 (150-375); Red Blood Count 3.07 M/mm3 (4.6-6.20); Red Cell Distribution Width 17.1 % (11.5-14.5)
[2022-07-12 16:49] LABS: Glucose Point of Care 172 mg/dl (65-105)
[2022-07-12 17:14] LABS: Glucose Point of Care 116 mg/dl (65-105)
[2022-07-12 17:20] VITALS: PULSE 102
[2022-07-12] MEDS: CEFEPIME 0.5 GM in DEXTROSE 5% IN WATER 50 ML IVPB (20:48)
[2022-07-12] MEDS: INSULIN GLARGINE (*BKC) 100 UNITS/ML 6 UNITS SUB-Q (20:48)
[2022-07-12] MEDS: rOPINIRole HCL 0.25 MG TABLET PO (20:48)
[2022-07-12 21:15] VITALS: O2SAT 94
[2022-07-12 21:47] VITALS: BP 125/52; PULSE 86; RESP 16; TEMP 36.3; O2SAT 93
[2022-07-12 21:47] LABS: Glucose Point of Care 198 mg/dl (65-105)
[2022-07-13] VITALS (13 sets, daily range): BP systolic 85–150; BP diastolic 44–68; PULSE 83–110; RESP 14–18; TEMP 36–36.6; O2SAT 93–96
[2022-07-13] MEDS: metroNIDAZOLE 500 MG/ISO 100ML 500 MG/100 ML BAG 100 MG IVPB ×2 (01:23→10:26)
[2022-07-13] MEDS: MORPHINE SULFATE (*CRX) 2 MG/ML INJ IV PUSH (02:26)
[2022-07-13 06:38] LABS: Hematocrit 28.1 % (42.0-52.0); Hemoglobin 8.5 g/dL (14.0-18.0); Mean Corpuscular HGB Conc 30.2 g/dl (32-36); Mean Corpuscular Hemoglobin 30.2 pg (26-34); Mean Platelet Volume 9.5 fl (7.4-10.4); Platelet Count Result 540 k/mm3 (150-375); Red Blood Count 2.81 M/mm3 (4.6-6.20); White Blood Count 6.8 K/mm3 (4.5-10.0)
[2022-07-13 06:47] LABS: Albumin Level 3.2 g/dL (3.5-5.1); Anion Gap 11 mmol/L (8-16); Blood Urea Nitrogen 40 mg/dL (9-20); Calcium 7.7 mg/dL (8.4-10.2); Carbon Dioxide 29 mmol/L (22-30); Chloride 91 mmol/L (98-107); Estimated CRCL calculation 8 ml/min; Estimated Glomerular Filt Rate 7; Glucose 153 mg/dL (65-110); Magnesium 2.2 mg/dL (1.6-2.3); Phosphorus 8.5 mg/dL (2.5-4.5); Potassium 4.6 mmol/L (3.4-5.0); Sodium 131 mmol/L (137-145)
--- NOTE | 2022-07-13 08:00 | PC.NURSE ---
Patient has left upper arm fistula
[2022-07-13 08:06] LABS: Glucose Point of Care 194 mg/dl (65-105)
[2022-07-13] MEDS: SERTRALINE HCL 50 MG TABLET 100 MG PO (08:08)
[2022-07-13] MEDS: VITAMIN B CMPLX/VIT C/FOLIC AC 1 CAPSULE 1 CAP PO (08:08)
[2022-07-13] MEDS: CHOLECALCIFEROL 1,000 UNITS TABLET 1000 UNITS PO (08:08)
[2022-07-13] MEDS: ASPIRIN 81 MG CHEWABLE TABLET PO (08:08)
[2022-07-13] MEDS: ATORVASTATIN 40 MG TABLET 80 MG PO (08:08)
[2022-07-13] MEDS: TICAGRELOR 60 MG TABLET PO ×2 (08:09→18:38)
[2022-07-13] MEDS: carvediloL 3.125 MG TABLET PO ×2 (08:09→18:37)
[2022-07-13] MEDS: CYANOCOBALAMIN 1,000 MCG TABLET 1000 MCG PO (08:10)
[2022-07-13] MEDS: GABAPENTIN 300 MG CAPSULE PO (08:10)
[2022-07-13] MEDS: PANTOPRAZOLE 40 MG TABLET PO (08:10)
[2022-07-13] MEDS: NICOTINE (*PBKC) 21 MG PATCH 1 PATCH TRANSDERM (08:10)
[2022-07-13] MEDS: INSULIN GLARGINE (*BKC) 100 UNITS/ML 8 UNITS SUB-Q (08:11)
[2022-07-13] MEDS: HYDROcodone/acetaminophen (*CRX) 5-325 MG TABLET 1 TAB PO (08:29)
[2022-07-13 11:45] LABS: Glucose Point of Care 31 mg/dl (65-105)
[2022-07-13 12:16] LABS: Glucose Point of Care 75 mg/dl (65-105)
--- NOTE | 2022-07-13 14:02 | PM.IMPN ---
Progress Note: A&P Assessment and Plan (1) Cellulitis: Code(s): L03.90 - Cellulitis, unspecified Status: Acute Assessment and Plan: continue broad-spectrum antibiotics while awaiting cultures- renally-dosed cefepime, vancomycin, and Flagyl started 07/10- 07/13 blood cultures negative to date. received tetanus booster on 07/09? as patient endorses recent instrumentation with hunting knife supportive care. analgesics available as needed. Encourage oral pain medication and wean morphine. leucocytosis resolved. Afebrile. He reports being prescribed clindamycin by his PCP for cellulitis to RLE, but he did not take any before admission as it worsened prompting his ED visit. Will trial clindamycin 300 mg Q6 hours x 10 days. (2) Diabetes mellitus: Code(s): E11.9 - Type 2 diabetes mellitus without complications Status: Chronic Assessment and Plan: BG check TID AC and HS c/w BID lantus+meal time insulin POC glucose 31-187. Change lantus to 4 units am and 6 units pm. Adjust dose as needed (3) ESRD (end stage renal disease) on dialysis: Code(s): N18.6 - End stage renal disease; Z99.2 - Dependence on renal dialysis Status: Chronic Assessment and Plan: Nephrology following. continue HD Mondays, Wednesdays, Fridays and Saturdays (4) CHF (congestive heart failure): Qualifiers: Heart failure chronicity: unspecified Heart failure type: unspecified Qualified Code(s): I50.9 - Heart failure, unspecified Code(s): I50.9 - Heart failure, unspecified Status: Chronic Assessment and Plan: Not in acute exacerbation. patient with history of flash pulmonary edema and respiratory failure avoid IV fluids and monitor volume status closely (5) Chronic anemia: Code(s): D64.9 - Anemia, unspecified Status: Chronic Assessment and Plan: secondary to ESRD no acute issues at this time.? Continue to monitor H&H (6) Smoking: Code(s): F17.200 - Nicotine dependence, unspecified, uncomplicated Status: Acute Assessment and Plan: Counseled to quit. Nicotine patch while inpatient. (7) HTN (hypertension): Code(s): I10 - Essential (primary) hypertension Status: Chronic Assessment and Plan: Episode of hypotension during HD yesterday. continue carvedilol as BP allows. monitor BP trends (8) Constipation: Code(s): K59.00 - Constipation, unspecified Status: Acute Assessment and Plan: Start miralax daily. PRN bisacodyl suppository. (9) Nausea & vomiting: Code(s): R11.2 - Nausea with vomiting, unspecified Status: Acute Assessment and Plan: Possibly 2/2 constipation, GERD, gastroparesis, ?withdrawal symptom KUB without obstruction. Bowel regimen as above. Change famotidine to Protonix daily. Plan CODE STATUS: FULL CODE Disposition: home when medically stable. Time Spent With Patient Time with patient: 15 - 25 minutes Subjective Date/time seen: 07/13/22 14:02 Interval history: Patient is a 56-year-old male with a history of ESRD on hemodialysis MWF, insulin dependent diabetes mellitus, right leg below-knee amputation, left leg above knee amputation,?HFpEF,? seizure disorder, hypertension, and multiple other medical problems who presented with cellulitis of the right stump. No emesis today. He reports his appetite is fair. No fevers, chills, rigors, abd pain, or nausea. He had a BM today. He reports shearing to RLE stump, but reports his right leg cellulitis is improved. Review of Systems Review of Systems: All systems reviewed & are unremarkable except as noted in HPI and below Exam Narrative: General: thin, non-toxic, chronically-ill appearing adult male, sitting up in bed, comfortable, NARD Neuro: awake, alert and oriented x4, speech clear, no focal neuro deficits noted HEENMT: normocephalic, atraumatic, EO
[2022-07-13] MEDS: SILVERGEL (ELTA) 45 ML 1 APPLIC TOPICAL (14:41)
--- NOTE | 2022-07-13 14:45 | PC.NURSE ---
To dialysis via bed.
[2022-07-13 14:49] LABS: Glucose Point of Care 187 mg/dl (65-105)
--- NOTE | 2022-07-13 15:34 | PM.PNNEP ---
Progress Note: A&P Assessment and Plan (1) ESRD (end stage renal disease): Code(s): N18.6 - End stage renal disease Status: Chronic Assessment and Plan: HD today continue 4x/week schedule of M/W/F/Sat follow electrolytes, volume status, and clearance (2) Cellulitis: Code(s): L03.90 - Cellulitis, unspecified Status: Acute Assessment and Plan: based on exam and imaging CT of the right leg with cellulitis with edema small amount of pleural fluid outside the vascular fascia without discrete abscess identified on antibiotics blood cultures with no growth improvement noted by clinical exam (3) Hypertension: Code(s): I10 - Essential (primary) hypertension Status: Chronic Assessment and Plan: has been quite erratic in the past history of HTN urgency leading to flash pulmonary edema and acute respiratory distress (usually requiring intubation) this has been better controlled with dialysis 4 days/week follow trend of hemodynamics (4) Anemia: Code(s): D64.9 - Anemia, unspecified Status: Chronic Assessment and Plan: due to ESRD and acute illness Epogen with HD follow trend of H/H (5) IDDM (insulin dependent diabetes mellitus): Status: Chronic Assessment and Plan: follow accuchecks glycemic control Not opposed to discharge from renal perspective if otherwise medically stable. Will continue to follow. Subjective Date/time seen: 07/13/22 15:34 Tolerating dialysis at the time of my visit (seen on HD at ~ 3:20PM); no new issues or problems voiced; right lower extremity stump appears better with current therapy; no apparent distress to report; no issues overnight or earlier this AM. Exam Narrative: General: WD/WN male in NAD Heart: normal S1 and S2; no rub Lungs: clear to auscultation Abdomen: soft, nontender, nondistended, positive bowel sounds Extremities: no cyanosis or clubbing; no edema Skin: left leg stump with numerous excoriations and scabs; right stump with erythema (better) Objective Data Vital Signs Vital Signs: Vital Signs Temp Pulse Resp BP Pulse Ox O2 Del Method 07/13/22 08:00 Room Air 07/13/22 08:09 88 07/13/22 05:51 36.2 C L 98 14 142/53 H 96 07/12/22 21:15 94 Room Air 07/12/22 20:00 Room Air 07/12/22 21:47 36.3 C L 86 16 125/52 L 93 07/12/22 17:20 102 H Intake/Output Intake/Output: Intake & Output 07/10/22 07/11/22 07/12/22 07/13/22 23:59 23:59 23:59 23:59 Intake Total 1260 1940 2500 1350 Output Total 0 400 Balance 1260 1540 2500 1350 Meds/Results Medications: Active Medications Generic Name Dose Route Start Last Admin Trade Name Freq PRN Reason Stop Dose Admin Acetaminophen 650 mg 07/09/22 09:36 Acetaminophen 325 Mg Tablet PO Q4H PRN Mild Pain (1-3) or Fever Hydrocodone Bitart/Acetaminophen 1 tab 07/09/22 09:36 07/13/22 08:29 Hydrocodone/Acetaminophen (*Crx) 5-325 Mg Tablet PO 1 tab Q4H PRN Administration Pain Rated 4-6 Albuterol 1 puff 07/09/22 17:14 Albuterol Sulfate (*Sp) Aerosol 1 Puff INHALATION QIDRT PRN Shortness Of Breath Aspirin 81 mg 07/10/22 08:00 07/13/22 08:08 Aspirin 81 Mg Chewable Tablet PO 81 mg DAILY@0800 [facility] Administration Atorvastatin Calcium 80 mg 07/10/22 09:00 07/13/22 08:08 Atorvastatin 40 Mg Tablet PO 80 mg DAILY MARTHA Administration Bisacodyl 10 mg 07/12/22 14:02 Bisacodyl 10 Mg Suppository RECTAL QAM PRN Constipation Carvedilol 3.125 mg 07/09/22 17:00 07/13/22 08:09 Carvedilol 3.125 Mg Tablet PO 3.125 mg BIDWM MARTHA Administration Clindamycin HCl 300 mg 07/14/22 06:00 Clindamycin Hcl 150 Mg Cap PO Q6HR MARTHA Cyanocobalamin 1,000 mcg 07/10/22 09:00 07/13/22 08:10 Cyanocobalamin 1,000 Mcg Tablet PO 1,000 mcg QAM MARTHA Administration Dextrose 12.5 gm
[2022-07-13 16:59] LABS: Glucose Point of Care 222 mg/dl (65-105)
[2022-07-13] MEDS: EPOETIN ALFA-EPBX 10,000 UNITS/ML VIAL 10000 UNITS IV PUSH (17:32)
--- NOTE | 2022-07-13 18:35 | PC.NURSE ---
Back from dialysis via bed.
[2022-07-13 18:36] LABS: Vancomycin Random 10.6 ug/mL (10-20)
[2022-07-13] MEDS: INSULIN ASPART (*BKC) 100 UNITS/ML SUB-Q (18:38)
[2022-07-13 18:39] LABS: Glucose Point of Care 207 mg/dl (65-105)
[2022-07-13] MEDS: ONDANSETRON INJ 4 MG/2 ML VIAL IV PUSH (18:40)
[2022-07-13] MEDS: rOPINIRole HCL 0.25 MG TABLET PO (20:20)
[2022-07-13] MEDS: HEPARIN SODIUM 5,000 UNITS/ML VIAL 5000 UNITS SUB-Q (20:20)
[2022-07-13] MEDS: INSULIN GLARGINE (*BKC) 100 UNITS/ML 6 UNITS SUB-Q (20:59)
[2022-07-13 21:07] LABS: Glucose Point of Care 247 mg/dl (65-105)
[2022-07-14] MEDS: HYDROcodone/acetaminophen (*CRX) 5-325 MG TABLET 1 TAB PO (01:28)
[2022-07-14] MEDS: CLINDAMYCIN HCL 150 MG CAP 300 MG PO ×2 (05:50→11:24)
[2022-07-14 05:55] VITALS: BP 118/67; PULSE 87; RESP 18; TEMP 36.3; O2SAT 94
[2022-07-14 07:32] LABS: Glucose Point of Care 145 mg/dl (65-105)
[2022-07-14] MEDS: CYANOCOBALAMIN 1,000 MCG TABLET 1000 MCG PO (08:29)
[2022-07-14] MEDS: ATORVASTATIN 40 MG TABLET 80 MG PO (08:29)
[2022-07-14] MEDS: ASPIRIN 81 MG CHEWABLE TABLET PO (08:29)
[2022-07-14] MEDS: CHOLECALCIFEROL 1,000 UNITS TABLET 1000 UNITS PO (08:29)
[2022-07-14 08:30] VITALS: PULSE 96
[2022-07-14] MEDS: SERTRALINE HCL 50 MG TABLET 100 MG PO (08:30)
[2022-07-14] MEDS: GABAPENTIN 300 MG CAPSULE PO (08:30)
[2022-07-14] MEDS: TICAGRELOR 60 MG TABLET PO (08:30)
[2022-07-14] MEDS: VITAMIN B CMPLX/VIT C/FOLIC AC 1 CAPSULE 1 CAP PO (08:30)
[2022-07-14] MEDS: carvediloL 3.125 MG TABLET PO (08:30)
[2022-07-14] MEDS: PANTOPRAZOLE 40 MG TABLET PO (08:30)
[2022-07-14] MEDS: INSULIN GLARGINE (*BKC) 100 UNITS/ML SUB-Q (08:32)
[2022-07-14] MEDS: NICOTINE (*PBKC) 21 MG PATCH 1 PATCH TRANSDERM (08:33)
[2022-07-14] MEDS: SILVERGEL (ELTA) 45 ML 1 APPLIC TOPICAL (08:33)
--- NOTE | 2022-07-14 09:50 | PCNFU ---
Nutrition Follow-Up Complete: Chewing difficulty related to dentition and lack of proper fitting dentures as evidenced by pt report. Goal:PO intake 75% of meals. Pt is meeting goal. Continue with current goal. Pt current nutrition is Renal dialysis diet, level 6, soft and bite sized. Nepro shakes daily. Nutrition recommendation: continue with current plan of care. Last recorded weight is 49.7 kg - down 3kg from admission. Bowel Motility: +BM 07/13 Labs Reviewed: Hgb:8.5, HCT:28.1, glu:145 Meds Noted: Lantus, novolog Skin: WNL Additional Notes: Pt continues on a renal diet, level 6 consistency for tolerance. Intake improved to 50-100% most meals which was goal. Nepro shakes in place daily. Agree with diet order. Monitor intake, wt, labs. Follow up in 7 days.
--- NOTE | 2022-07-14 09:55 | PM.PNNEP ---
Progress Note: A&P Assessment and Plan (1) ESRD (end stage renal disease): Code(s): N18.6 - End stage renal disease Status: Chronic Assessment and Plan: HD tomorrow continue 4x/week schedule of M/W/F/Sat follow electrolytes, volume status, and clearance (2) Cellulitis: Code(s): L03.90 - Cellulitis, unspecified Status: Acute Assessment and Plan: based on exam and imaging CT of the right leg with cellulitis with edema small amount of pleural fluid outside the vascular fascia without discrete abscess identified on antibiotics blood cultures with no growth improvement noted by clinical exam (3) Hypertension: Code(s): I10 - Essential (primary) hypertension Status: Chronic Assessment and Plan: has been quite erratic in the past history of HTN urgency leading to flash pulmonary edema and acute respiratory distress (usually requiring intubation) this has been better controlled with dialysis 4 days/week follow trend of hemodynamics (4) Anemia: Code(s): D64.9 - Anemia, unspecified Status: Chronic Assessment and Plan: due to ESRD and acute illness Epogen with HD follow trend of H/H (5) IDDM (insulin dependent diabetes mellitus): Status: Chronic Assessment and Plan: follow accuchecks glycemic control Not opposed to discharge from renal perspective if otherwise medically stable. Will continue to follow. Subjective Date/time seen: 07/14/22 09:55 Tolerated dialysis yesterday without any issues or problems; no apparent distress voiced at this time; right lower extremity/stump appears to be doing better each day; blood sugars seem better controlled as well; no other issues/events overnight or earlier this morning. Exam Narrative: General: WD/WN male in NAD Heart: normal S1 and S2; no rub Lungs: clear to auscultation Abdomen: soft, nontender, nondistended, positive bowel sounds Extremities: no cyanosis or clubbing; no edema Skin: right LE stump with minimal erythema and no reduced pain/tenderness to touch Objective Data Vital Signs Vital Signs: Vital Signs Temp Pulse Resp BP Pulse Ox O2 Del Method 07/14/22 08:30 96 07/14/22 05:55 36.3 C L 87 18 118/67 94 07/13/22 22:00 36.4 C 83 18 122/61 93 07/13/22 19:51 Room Air 07/13/22 18:00 94 127/62 08/31/22 17:20 92 106/51 L 07/13/22 17:00 90 117/54 L 07/13/22 16:20 88 85/44 L 07/13/22 15:40 95 100/58 L 07/13/22 18:20 36.5 C 101 H 14 150/68 H 07/13/22 15:15 90 109/58 L 07/13/22 18:37 110 H 07/13/22 15:10 36.1 C L 90 14 115/61 07/13/22 14:00 36.6 C 90 18 115/61 94 Intake/Output Intake/Output: Intake & Output 07/11/22 07/12/22 07/13/22 07/14/22 23:59 23:59 23:59 23:59 Intake Total 1940 2500 2600 220 Output Total 400 1000 Balance 1540 2500 1600 220 Meds/Results Medications: Active Medications Generic Name Dose Route Start Last Admin Trade Name Freq PRN Reason Stop Dose Admin Acetaminophen 650 mg 07/09/22 09:36 Acetaminophen 325 Mg Tablet PO Q4H PRN Mild Pain (1-3) or Fever Hydrocodone Bitart/Acetaminophen 1 tab 07/09/22 09:36 07/14/22 01:28 Hydrocodone/Acetaminophen (*Crx) 5-325 Mg Tablet PO 1 tab Q4H PRN Administration Pain Rated 4-6 Albuterol 1 puff 07/09/22 17:14 Albuterol Sulfate (*Sp) Aerosol 1 Puff INHALATION QIDRT PRN Shortness Of Breath Aspirin 81 mg 07/10/22 08:00 07/14/22 08:29 Aspirin 81 Mg Chewable Tablet PO 81 mg DAILY@0800 [facility] Administration Atorvastatin Calcium 80 mg 07/10/22 09:00 07/14/22 08:29 Atorvastatin 40 Mg Tablet PO 80 mg DAILY MARTHA Administration Bisacodyl 10 mg 07/12/22 14:02 Bisacodyl 10 Mg Suppository RECTAL QAM PRN Constipation Carvedilol 3.125 mg 07/09/22 17:00 07/14/22 08:30 Carvedilol 3.125 Mg Tab
--- NOTE | 2022-07-14 09:55 | P.PNNP_ITS ---
Progress Note: A&P Assessment and Plan (1) ESRD (end stage renal disease): Code(s): N18.6 - End stage renal disease Status: Chronic Assessment and Plan: * HD tomorrow * continue 4x/week schedule of M/W/F/Sat * follow electrolytes, volume status, and clearance (2) Cellulitis: Code(s): L03.90 - Cellulitis, unspecified Status: Acute Assessment and Plan: * based on exam and imaging * CT of the right leg with cellulitis with edema small amount of pleural fluid outside the vascular fascia without discrete abscess identified * on antibiotics * blood cultures with no growth * improvement noted by clinical exam (3) Hypertension: Code(s): I10 - Essential (primary) hypertension Status: Chronic Assessment and Plan: * has been quite erratic in the past * history of HTN urgency leading to flash pulmonary edema and acute respiratory distress (usually requiring intubation) * this has been better controlled with dialysis 4 days/week * follow trend of hemodynamics (4) Anemia: Code(s): D64.9 - Anemia, unspecified Status: Chronic Assessment and Plan: * due to ESRD and acute illness * Epogen with HD * follow trend of H/H (5) IDDM (insulin dependent diabetes mellitus): Status: Chronic Assessment and Plan: * follow accuchecks * glycemic control Not opposed to discharge from renal perspective if otherwise medically stable. Will continue to follow. Subjective Date/time seen: 07/14/22 09:55 Tolerated dialysis yesterday without any issues or problems; no apparent distress voiced at this time; right lower extremity/stump appears to be doing better each day; blood sugars seem better controlled as well; no other issues/events overnight or earlier this morning. Exam Narrative: General: WD/WN male in NAD Heart: normal S1 and S2; no rub Lungs: clear to auscultation Abdomen: soft, nontender, nondistended, positive bowel sounds Extremities: no cyanosis or clubbing; no edema Skin: right LE stump with minimal erythema and no reduced pain/tenderness to touch Objective Data Vital Signs Vital Signs: Vital Signs Temp Pulse Resp BP Pulse Ox O2 Del Method 07/14/22 08:30 96 07/14/22 05:55 36.3 C L 87 18 118/67 94 07/13/22 22:00 36.4 C 83 18 122/61 93 07/13/22 19:51 Room Air 07/13/22 18:00 94 127/62 07/13/22 17:20 92 106/51 L 07/13/22 17:00 90 117/54 L 07/13/22 16:20 88 85/44 L 07/13/22 15:40 95 100/58 L 07/13/22 18:20 36.5 C 101 H 14 150/68 H 07/13/22 15:15 90 109/58 L 07/13/22 18:37 110 H 07/13/22 15:10 36.1 C L 90 14 115/61 07/13/22 14:00 36.6 C 90 18 115/61 94 Intake/Output Intake/Output: Intake & Output 07/11/22 07/12/22 07/13/22 07/14/22 23:59 23:59 23:59 23:59 Intake Total 1940 2500 2600 220 Output Total 400 1000 Balance 1540 2500 1600 220 Meds/Results Medications: Active Medications Generic Name Dose Route Start Last Admin Trade Name Harmeet PRN Reason Stop Dose Admin Acetaminophen 650 mg 07/09/22 09:36 Ac
--- NOTE | 2022-07-14 10:01 | PM.DS ---
DS: Admitting Diagnosis Discharge Date 07/14/2022 1220 Admitting Diagnosis right lower extremity cellulitis History of end-stage renal disease on dialysis DS: Discharge Diagnosis Discharge Diagnosis (1) Cellulitis: Code(s): L03.90 - Cellulitis, unspecified Status: Acute Assessment and Plan: continue broad-spectrum antibiotics while awaiting cultures- renally-dosed cefepime, vancomycin, and Flagyl started 07/10- 07/13 blood cultures negative to date. received tetanus booster on 07/09? as patient endorses recent instrumentation with hunting knife leucocytosis resolved. Afebrile. He reports being prescribed clindamycin by his PCP for cellulitis to E, but he did not take any before admission as it worsened prompting his ED visit. Discharge home on clindamycin 300 mg Q6 hours x 10 days. (2) Diabetes mellitus: Qualifiers: Diabetes mellitus detention insulin use: with detention use Diabetes mellitus complication status: with kidney complications Code(s): E11.9 - Type 2 diabetes mellitus without complications Status: Chronic Assessment and Plan: insulin-dependent diabetes, juvenile onset BG check TID AC and HS c/w BID lantus+meal time insulin POC glucose 31-187. Change lantus to 4 units am and 6 units pm. Adjust dose as needed (3) ESRD (end stage renal disease) on dialysis: Code(s): N18.6 - End stage renal disease; Z99.2 - Dependence on renal dialysis Status: Chronic Assessment and Plan: Nephrology following. continue HD Mondays, Wednesdays, Fridays and Saturdays -4-6 6 kg since admission (4) CHF (congestive heart failure): Qualifiers: Heart failure chronicity: unspecified Heart failure type: unspecified Qualified Code(s): I50.9 - Heart failure, unspecified Code(s): I50.9 - Heart failure, unspecified Status: Chronic Assessment and Plan: Not in acute exacerbation. patient with history of flash pulmonary edema and respiratory failure avoid IV fluids and monitor volume status closely (5) Chronic anemia: Code(s): D64.9 - Anemia, unspecified Status: Chronic Assessment and Plan: secondary to ESRD no acute issues at this time.? Continue to monitor H&H. Stable 8.5/28% (6) Smoking: Code(s): F17.200 - Nicotine dependence, unspecified, uncomplicated Status: Acute Assessment and Plan: Counseled to quit. Nicotine patch while inpatient. (7) HTN (hypertension): Qualifiers: Hypertension type: primary hypertension Qualified Code(s): I10 - Essential (primary) hypertension Code(s): I10 - Essential (primary) hypertension Status: Chronic Assessment and Plan: Episode of hypotension during HD. improved on 07/12/2022 continue carvedilol as BP allows. monitor BP trends, stable 118/67 (8) Constipation: Qualifiers: Constipation type: drug induced constipation Qualified Code(s): K59.03 - Drug induced constipation Code(s): K59.00 - Constipation, unspecified Status: Acute Assessment and Plan: treated miralax daily. PRN bisacodyl suppository. of BM prior to discharge (9) Nausea & vomiting: Code(s): R11.2 - Nausea with vomiting, unspecified Status: Acute Assessment and Plan: Possibly 2/2 constipation, GERD, gastroparesis, ?withdrawal symptom KUB without obstruction. Bowel regimen as above. Change famotidine to Protonix daily. Plan CODE STATUS: FULL CODE Disposition: home when medically stable. DS: Summary Hospital Course Reason for hospitalization: right stump pain Hospital Course: Ish Corley is a 56 yo male with medical: Comorbidities of end-stage renal disease on dialysis 4 days per week, insulin-dependent diabetes, right BKA and left AKA. Patient presented to the emergency department with complaint of right stump pain this started durin
[2022-07-14 11:25] LABS: Glucose Point of Care 153 mg/dl (65-105)
[2022-07-14] MEDS: LORazepam (*CRX) 1 MG TABLET PO (13:00)
== END 2022-07-14 13:25 | disposition home or self-care (01) | DRG 349 ==
LOC: ANHED 07-09 10:10 → ANH3MEDSUR 07-09 12:50
PROVIDERS: Emergency Medicine; Internal Medicine; Internal Medicine Nephrology; Nurse Practitioner; Physician Assistant; Admitting Provider Internal Medicine; Emergency Provider Emergency Medicine; PCP Emergency Medicine; Visit Provider Nurse Practitioner Family
DX: T87.43 Infection of amputation stump, right lower extremity (principal); I13.2 Hypertensive heart and chronic kidney disease with heart failure and with stage 5 chronic kidney disease, or end stage renal disease; I95.3 Hypotension of hemodialysis; E10.21 Type 1 diabetes mellitus with diabetic nephropathy; L03.115 Cellulitis of right lower limb; E10.319 Type 1 diabetes mellitus with unspecified diabetic retinopathy without macular edema; E10.22 Type 1 diabetes mellitus with diabetic chronic kidney disease; E10.40 Type 1 diabetes mellitus with diabetic neuropathy, unspecified; I50.9 Heart failure, unspecified; N18.6 End stage renal disease; N25.0 Renal osteodystrophy; D63.1 Anemia in chronic kidney disease; E55.9 Vitamin D deficiency, unspecified; K21.9 Gastro-esophageal reflux disease without esophagitis; G40.909 Epilepsy, unspecified, not intractable, without status epilepticus; N40.0 Benign prostatic hyperplasia without lower urinary tract symptoms; R11.2 Nausea with vomiting, unspecified; K59.00 Constipation, unspecified; I25.2 Old myocardial infarction; F41.9 Anxiety disorder, unspecified; F32.A Depression, unspecified; Z20.822 Contact with and (suspected) exposure to COVID-19; Z99.2 Dependence on renal dialysis; Z89.612 Acquired absence of left leg above knee; Z89.511 Acquired absence of right leg below knee; Z95.5 Presence of coronary angioplasty implant and graft; Z79.4 Long term (current) use of insulin
CPT/HCPCS: 36415; 73700; 74018; 80048; 80053; 80069; 80202; 82948; 83036; 83605; 83735; 84100; 84145; 85025; 85027; 85610; 85652; 85730; 86140; 86706; 87040; 87340; 90471; 90715; 96365; 96366; 96367; 96372; 96374; 96375; 96376; 99285; A9270; C9113; C9803; G0257; G0378; G0379; J0692; J1170; J1644; J1815; J2270; J2405; J3370; J7030; P9047; Q5105; U0003; U0005

== ENCOUNTER 2022-07-15 09:14 | Inpatient (IN) | payer OTHER, SELFPAY ==
[2022-07-15] VITALS (35 sets, daily range): BP systolic 88–135; BP diastolic 53–60; PULSE 84–107; RESP 10–21; TEMP 37.1–37.3; O2SAT 94–100
--- NOTE | ~2022-07-15 | XR_ITS ---
EXAMINATION: XR lumbar puncture diagnostic DATE: 07/16/2022 13:51 INDICATION: Transverse myelitis TECHNIQUE: The procedure including the risks and benefits was discussed with the patient. Risks discu ssed included spinal headache, cerebrospinal fluid leak, bleeding, and infection. The patient underst ood the risks and agreed to proceed. A timeout was performed to verify the patient's name, date of , and procedure to be performed. The skin overlying the L5 level was prepped and draped in usu al sterile fashion. Subcutaneous 1% lidocaine was used for local anesthesia. A 22 gauge spinal need le was advanced under fluoroscopic guidance. The needle was removed and the entry site was cleaned an d dressed. There were no immediate complications. A total of 1 fluoroscopic image(s) were obtained. The amount of fluoroscopy time used during this procedure was minutes. There were no immediate compli cations. FINDINGS: Real-time fluoroscopy demonstrates the needle at the L5 level there has been a prior emma ctomy with anterior and posterior spinal fusion. Opening pressure was 13 cm water. (Normal range is v ariably defined as 6-20 cm water and up to 25 cm water in obese patients. Pressure >25 cm water is on e of the modified Dandy criteria for idiopathic intracranial hypertension). 10 mL of initially clear , colorless fluid was collected in 4 tubes. Following collection of the first tube the flow slowed re quiring slight advancement of the needle after which there is a trace amount of hemorrhage resolving pinkish discoloration of the second tube which progressively cleared. IMPRESSION: 1. Successful fluoro-guided lumbar puncture. Reviewed, dictated and finalized at location A.
--- NOTE | ~2022-07-15 | CT_ITS ---
EXAMINATION: CT brain wo con DATE: 07/15/2022 10:38 INDICATION: Weakness. Can't move legs. TECHNIQUE: Computed tomography (CT) of the head was performed without intravenous contrast. The mA wa s adjusted according to patient size. Iterative reconstruction technique was employed. Exam dose: 60 5.33 mGy-cm total exam DLP. COMPARISON: 07/02/2022 CT brain FINDINGS: Bilateral vertebral artery and bilateral carotid siphon prominent arterial calcifications. Old left frontal cerebrovascular accident. There is nonspecific diminished attenuation of the cerebra l white matter, likely due to chronic small vessel ischemic changes. No intracranial mass lesion or hemorrhage. No midline shift or mass effect effect. No subdural or epi dural hematoma. Moderately prominent cerebral and cerebellar volume loss. There is some patchy bilateral ethmoid sinus soft tissue thickening. The paranasal sinuses are otherw ise unremarkable. The right mastoid air cells are normally developed and aerated. Patchy effusions of the left mastoid air cells. No fracture or bone destruction of the cranial vault. IMPRESSION: Chronic left frontal cerebrovascular accident Cerebral atherosclerosis and chronic small vessel ischemic changes of the cerebral white matter. Reviewed, dictated and finalized at Location A. Reviewed, dictated and finalized at location B. IMPRESSION: Chronic left frontal cerebrovascular accident Cerebral atherosclerosis and chronic small vessel ischemic changes of the cereb ral white matter.
--- NOTE | ~2022-07-15 | XR_ITS ---
EXAMINATION: XR chest 1V portable DATE: 07/15/2022 15:43 INDICATION: Congestive heart failure TECHNIQUE: frontal view of the chest was obtained. COMPARISON: Chest radiograph dated 07/06/2022 FINDINGS: Large-bore likely tunneled dual-lumen right internal jugular central venous catheter with distal tip at the superior cavoatrial junction. Mild streaky bibasilar opacities and favor atelectasis over pneu monia. No pulmonary edema, pleural effusion or pneumothorax. The cardiomediastinal silhouette is norm al. Visualized bones and soft tissues are unremarkable. IMPRESSION: 1. Mild streaky bibasilar opacities and favor atelectasis over pneumonia. Reviewed, dictated and finalized at location A.
--- NOTE | ~2022-07-15 | CT_ITS ---
EXAMINATION: CTA brain carotid DATE: 07/15/2022 11:21 INDICATION: Bilateral lower extremity weakness. TECHNIQUE: Computed tomographic angiography (CTA) of the head was performed with 100 mL Omnipaque-350 intravenous contrast. CTA of the neck was performed with intravenous contrast. Automated exposure co ntrol and iterative reconstruction technique were employed. The dose-length product was 985.89 mGy-cm . Maximum intensity projection and volume rendered 3D-reconstructions were created by the [employer] t on a separate workstation. COMPARISON: Head CT 07/15/2022 FINDINGS: HEAD CTA: There is chronic encephalomalacia in anterior left frontal lobe and anteroinferior left tem poral lobe. There is an old lacunar infarct in the angelito. There is no intracranial hemorrhage, acute i nfarction, or abnormal intracranial mass lesion. There are scattered areas of low attenuation in the cerebral white matter. The ventricles are normal in size. There is mucosal thickening in the paranasa l sinuses. There are likely changes of left ocular lens replacement surgery. There is a left mastoid effusion. The vertebral arteries are codominant. There is no significant stenosis of basilar artery o r the posterior cerebral arteries. The posterior communicating arteries are normal. There is no signi ficant stenosis of the intracranial internal carotid arteries or anterior or middle cerebral arteries . Anterior communicating artery is normal. There is no aneurysm. NECK CTA: There is mild emphysema. There are no pathologically enlarged lymph nodes. Partially visual ized is a right internal jugular central venous catheter. There is moderate stenosis of the origins o f the vertebral arteries. There is plaque in the proximal internal carotid arteries. There is 0% sten osis of the proximal right internal carotid artery relative to normal distal artery lumen diameter (N ASCET criteria). There is 0% stenosis of the proximal left internal carotid artery relative to normal distal artery lumen diameter. There is mild cervical spondylosis. IMPRESSION: 1. Chronic encephalomalacia in anterior left frontal lobe and anteroinferior left temporal lobe. Old lacunar infarct in the angelito. 2. Mild nonspecific cerebral white matter disease, which likely represents chronic small vessel ische sonny disease. 3. No aneurysm or significant intracranial arterial stenosis. 4. 0% stenosis of the proximal internal carotid arteries relative to normal distal artery lumen diame ters (NASCET criteria). 5. Moderate stenosis of the vertebral artery origins. Reviewed, dictated and finalized at location A. IMPRESSION: 1. Chronic encephalomalacia in anterior left frontal lobe and anteroinferior le ft temporal lobe. Old lacunar infarct in the angelito. 2. 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 3. No aneurysm or significant intracranial arterial stenosis. 4. 0% stenosis of the proximal internal carotid arteries relative to normal dis kosta artery lumen diameters (NASCET criteria). 5. Moderate stenosis of the vertebral artery origins.
--- NOTE | ~2022-07-15 | CT_ITS ---
EXAMINATION: CT cervical spine wo con DATE: 07/16/2022 12:19 INDICATION: Upper and lower extremity weakness. TECHNIQUE: Computed tomography (CT) of the cervical spine was performed without intravenous contrast. Automated exposure control and iterative reconstruction technique were employed. The dose-length pro duct was 350.22 mGy-cm. COMPARISON: None FINDINGS: Bone alignment is normal. Vertebral body heights are normal. Intervertebral disc heights ar e normal. The following disc levels are specifically discussed: C2-C3: There is mild bilateral uncovertebral joint osteoarthritis. There is severe bilateral facet parish int osteoarthritis. There is no neural foraminal stenosis. There is moderate central canal stenosis. C3-C4: There is mild right uncovertebral joint osteoarthritis. There is mild bilateral facet joint os teoarthritis. There is mild bilateral neural foraminal stenosis. There is mild central canal stenosis . C4-C5: There is mild right and moderate left uncovertebral joint osteoarthritis. There is mild bilate ral facet joint osteoarthritis. There is mild left neural foraminal stenosis. There is mild central c anal stenosis. C5-C6: There is no uncovertebral joint osteoarthritis. There is mild right and severe left facet join t osteoarthritis. There is mild left neural foraminal stenosis. There is mild central canal stenosis. C6-C7: There is mild bilateral uncovertebral joint osteoarthritis. There is mild bilateral facet join t osteoarthritis. There is mild bilateral neural foraminal stenosis. There is moderate central canal stenosis. C7-T1: There is no uncovertebral joint osteoarthritis. There is mild bilateral facet joint osteoarthr itis. There is no neural foraminal stenosis. There is mild central canal stenosis. IMPRESSION: 1. Moderate cervical spondylosis. Reviewed, dictated and finalized at location A.
--- NOTE | ~2022-07-15 | CT_ITS ---
EXAMINATION: CT thoracic lumbar wo con DATE: 07/16/2022 12:19 INDICATION: Upper and lower extremity weakness. TECHNIQUE: Computed tomography (CT) of the thoracic and lumbar spine was performed without intravenou s contrast. Automated exposure control and iterative reconstruction technique were employed. The dose -length product was 1750.09 mGy-cm. COMPARISON: Chest CT 03/11/2021, CT abdomen and pelvis 04/25/2022 FINDINGS: CT THORACIC SPINE: There is mild emphysema. There are multiple nodules in the visualized portions of the lungs measuring up to 8 mm in left lower lobe. There are mild airspace opacities in the lower lob es. There is 3 degrees dextrocurvature of upper thoracic spine. There are Schmorl's nodes at most lev els. There is mild chronic anterior wedging of T4 and T5 vertebral bodies. There is moderately decrea sed disc height at T1-T2 and T5-T6 and mildly decreased disc height at many other levels. There is mu ltilevel mild to moderate facet joint osteoarthritis. At T11-T12, there is severe bilateral facet isela nt osteoarthritis. On the right, there is moderate neural foraminal stenosis at T1-T2 and mild neural foraminal stenosis at T9-T10, T10-T11, and T12-L1. On the left, there is mild neural foraminal steno sis at T1-T2 and T11-T12. There is mild central canal stenosis at T1-T2 and T6-T7. CT LUMBAR SPINE: There is 7 degrees levocurvature of thoracolumbar spine. There are changes of anteri or fusion procedures at L4-L5 and L5-S1 with interbody bone graft and L5 screw. There are changes of posterior fusion procedure from L4 to S1 with pedicle screws. There is mild chronic anterior wedging of L1 vertebral body. There is mildly decreased disc height at L2-L3. A bone stimulator is noted. The re is developmental osseous central canal stenosis in lumbar spine. There are changes of L5 laminecto my. The following disc levels are specifically discussed: L1-L2: The disc is bulging. There is mild bilateral facet joint osteoarthritis. There is no neural fo raminal stenosis. There is mild central canal stenosis. L2-L3: The disc is bulging. There is severe bilateral facet joint osteoarthritis. There is moderate b ilateral neural foraminal stenosis. There is moderate central canal stenosis. L3-L4: The disc is bulging. There is severe bilateral facet joint osteoarthritis. There is moderate b ilateral neural foraminal stenosis. There is moderate central canal stenosis. L4-L5: There is moderate bilateral facet joint hypertrophy. There is moderate bilateral neural forami nal stenosis. There is mild central canal stenosis with posterior decompression. L5-S1: There is moderate bilateral facet joint osteoarthritis. There is moderate bilateral neural for aminal stenosis. There is mild central canal stenosis with posterior decompression. IMPRESSION: 1. Moderate thoracic and lumbar spondylosis. 2. Anterior and posterior fusion procedures from L4 to S1. 3. Nodules in the lungs, which may be infection or malignancy. Chest CT is recommended. 4. Airspace opacities in the lower lobes, consistent with atelectasis versus pneumonia. Reviewed, dictated and finalized at location A. IMPRESSION: 1. Moderate thoracic and lumbar spondylosis. 2. Anterior and posterior fusion procedures from L4 to S1. 3. Nodules in the lungs, which may be infection or malignancy. Chest CT is ramona mmended. 4. Airspace opacities in the lower lobes, consistent with atelectasis versus pn eumonia.
--- NOTE | ~2022-07-15 | US_ITS ---
EXAMINATION: US carotid duplex BI DATE: 07/15/2022 15:30 INDICATION: Pontine infarct. Lower extremity weakness. TECHNIQUE: Grayscale, color Doppler, and pulsed Doppler images of the cervical carotid arteries were obtained. The degree of vessel stenosis is placed in one of the following categories: normal, <50%, 5 0-69%, >=70% but less than near-occlusion, near-occlusion, or total occlusion. Note that percent sten osis relative to normal distal artery lumen diameter is indirectly measured from velocity measurement s as described by Lex, et al. Radiology 2003; 229:340-346. COMPARISON: CTA 07/15/2022 FINDINGS: RIGHT: The right common carotid artery (CCA) peak systolic velocity (PSV) is 90 cm/s. The right internal car otid artery (ICA) PSV is 80 cm/s. The right ICA end-diastolic velocity (EDV) is 21 cm/s. The right IC A/CCA PSV ratio is 0.9. Grayscale and color Doppler images yield an estimate of <50% diameter reducti on from plaque in the ICA. There is antegrade flow in the right vertebral artery. LEFT: The left CCA PSV is 120 cm/s. The left ICA PSV is 87 cm/s. The left ICA EDV is 8 cm/s. The left ICA/C CA PSV ratio is 0.7. Grayscale and color Doppler images yield an estimate of <50% diameter reduction from plaque in the ICA. There is antegrade flow in the left vertebral artery. IMPRESSION: 1. <50% stenosis in the right internal carotid artery. 2. <50% stenosis in the left internal carotid artery. Reviewed, dictated and finalized at location A.
--- NOTE | ~2022-07-15 | XR_ITS ---
EXAMINATION: XR chest 1V Exam Date/Time: 07/16/2022 13:33 CDT HISTORY: pneumonia Comparison: 07/15/2022. RESULT: Lines, tubes, and devices: Right IJ dialysis catheter, terminating in the right atrium. Lungs and pleura: Senescent change. No focal consolidation. Cardiomediastinal silhouette: Stable. Other: No acute osseous or upper abdominal finding. IMPRESSION: No acute cardiopulmonary process. Reviewed, dictated and finalized at location K.
--- NOTE | 2022-07-15 09:22 | ED.GENADULT ---
HPI - General Adult General Chief complaint: Weakness Stated complaint: lethargic, sleepy, stroke symptoms (fast 2 now 1) History of Present Illness HPI narrative: 56-year-old male presents to the emergency department from home for report of numbness weakness for all his extremities. Patient states that he was discharged home yesterday and after being discharged he weakness on his extremities. He states he was unable to move his arms or his legs. Patient states this has been constant since 3 PM yesterday. In route patient started moving his arms but states he is still unable to move his bilateral stumps. Patient has end-stage renal disease and was supposed get dialysis today. Patient had a recent hospitalization for cellulitis of his right below the knee amputation. Patient has a left izhud-non-hoor amputation. Related Data Home Medications Medication Instructions Recorded Confirmed vitamin B complex-vitamin C-folic 1 tablet PO DAILY 07/23/20 07/15/22 acid 0.8 mg tablet (Dang-Nilsa) ropinirole 0.25 mg tablet 0.25 mg PO DIRECTED 01/11/21 07/15/22 glucagon 1 mg injection kit See Rx Instructions .Route .COMPLEX 03/27/21 07/15/22 ticagrelor 60 mg tablet (Brilinta) 60 mg PO BID 06/23/22 07/15/22 B12 1,000 mcg PO DAILY 07/09/22 07/15/22 albuterol sulfate 90 mcg/actuation 1 puff inhalation QID PRN 07/09/22 07/15/22 aerosol inhaler Shortness Of Breath aspirin 81 mg tablet 81 mg PO DAILY 07/09/22 07/15/22 cholecalciferol (vitamin D3) 25 25 mcg PO DAILY 07/09/22 07/15/22 mcg (1,000 unit) tablet (Vitamin D3) Allergies Allergy/AdvReac Type Severity Reaction Status Date / Time scopolamine Allergy Severe Unresponsiv Verified 07/15/22 09:20 e Review of Systems Review of Systems: CONSTITUTIONAL: Generalized weakness EYES: Denies visual changes, redness, or discharge. ENT: Denies rhinorrhea, congestion, sore throat, or otalgia. CARDIOVASCULAR: Denies chest pain, palpitations, or edema. RESPIRATORY: Denies cough or dyspnea. GASTROINTESTINAL: Denies abdominal pain, nausea, vomiting, or diarrhea. GENITOURINARY: Denies dysuria or hematuria. SKIN: Denies rash or itching. MUSCULOSKELETAL: Denies back pain, joint pain, or myalgia. NEUROLOGIC: Bilateral lower extremity weakness [facility] Past Medical History Medical History (Updated 07/15/22 @ 12:37 by Jesse Martinez MD) Amputation above knee Anxiety Benign prostatic hyperplasia Bradycardic cardiac arrest (~07/23/20) In the setting of severe hyperkalemia, acute pulmonary edema, and respiratory failure Chronic anemia Congestive heart failure Echo 03/06/2021 1. Complete two-dimensional, color flow and Doppler transthoracic echocardiogram is performed. 2. Left ventricular chamber dimension is mildly enlarged. 3. Left ventricular systolic function is mildly reduced, estimated at 55-60%. 4. There is severely increased left ventricular wall thickness. Speckled appearance of the myocardium. 5. The left ventricular diastolic function is grade I diastolic dysfunction. 6. Left atrial chamber dimension is mildly enlarged. 7. There is moderate aortic valve sclerosis. 8. The mitral valve annulus is severely calcified. 9. There is mild mitral valve regurgitation. 10. The mitral valve has thickened leaflets. 11. There is mild tricuspid valve regurgitation. 12. There is mild pulmonic regurgitation. Coronary artery disease With non STEMI in December 2019, with stent placed to the LAD. Depression with anxiety End-stage renal disease on hemodialysis Erythropoietin deficiency anemia Gastric ulcer On endoscopy per Dr. Pacheco in June 2020. Gastroesophageal reflux disease Hypertension Noncompliance Pneumonia Renal osteodystrophy Seizure Secondary to hypoglycemia. ST elevation myocardial infarction (STEMI) (~06/26/20) Secondary to abrupt stent thrombosis of the LAD. Suspected 2019 novel coronavirus infection Tobacco dependence Type 1 diabetes mellitus Diagnosed at
[2022-07-15 09:27] LABS: Glucose Point of Care 457 mg/dl (65-105)
--- NOTE | 2022-07-15 09:27 | ECG_ITS ---
Measurements Intervals [place] Rate: 100 P: 73 RI: 142 QRS: 72 QRSD: 90 T: 70 QT: 334 QTc: 431 Interpretive Statements SINUS TACHYCARDIA NONSPECIFIC ST & T-WAVE ABNORMALITY- INF/LAT LEADS BORDERLINE ECG COMPARED TO ECG 07/06/2022 20:51:27 NO SIGNIFICANT CHANGES Electronically Signed On 07-19-2022 11:53:46 CDT by Edmond Elias D.O.
[2022-07-15 09:46] LABS: Basophils Percent Auto 0.4 % (0.2-1.2); Eosinophils Absolute Auto 0.1 K/mm3 (0-0.3); Eosinophils Percent Auto 2.6 % (0-4.4); Hematocrit 29.9 % (42.0-52.0); Hemoglobin 8.9 g/dL (14.0-18.0); Immature Granulocyte Absolute 0.03 K/mm3 (0.00-0.031); Immature Granulocyte Percent A 0.6 % (0-0.5); Lymphocytes Absolute Auto 1.17 K/mm3 (0.9-3.2); Lymphocytes Percent Auto 23.7 % (18.3-44.2); Mean Corpuscular HGB Conc 29.8 g/dl (32-36); Mean Corpuscular Volume 100.7 fl (80-100); Mean Platelet Volume 9.1 fl (7.4-10.4); Monocytes Absolute Auto 0.4 K/mm3 (0.1-0.6); Monocytes Percent Auto 7.9 % (2.6-8.5); Neutrophils Absolute Auto 3.2 K/mm3 (1.3-6.7); Neutrophils Percent Auto 64.8 % (45.5-73.1); Nucleated Red Blood Cells Perc 0.4 % (0.0-0.2); Platelet Count Result 660 k/mm3 (150-375); Red Blood Count 2.97 M/mm3 (4.6-6.20); Red Cell Distribution Width 17.4 % (11.5-14.5); White Blood Count 4.9 K/mm3 (4.5-10.0)
[2022-07-15 09:56] LABS: Alanine Aminotransferase 10 U/L (6-50); Albumin Level 3.1 g/dL (3.5-5.1); Alkaline Phosphatase 105 U/L (38-126); Anion Gap 21 mmol/L (8-16); Aspartate Amino Transferase 35 U/L (17-59); Bilirubin,Total 0.4 mg/dL (0.2-1.3); Blood Urea Nitrogen 24 mg/dL (9-20); Calcium 8.1 mg/dL (8.4-10.2); Carbon Dioxide 18 mmol/L (22-30); Chloride 97 mmol/L (98-107); Estimated CRCL calculation 8 ml/min; Estimated Glomerular Filt Rate 8; Glucose 449 mg/dL (65-110); Lactic Acid Reflex 2.1 mmol/L (0.7-2.0); Sodium 136 mmol/L (137-145)
[2022-07-15 09:57] LABS: INR 1.3; Prothrombin Time 15.5 Seconds (11.1-14.7)
[2022-07-15 09:58] LABS: Partial Thromboplastin Time 36.2 SECONDS (22.3-36.8)
[2022-07-15] MEDS: SODIUM CHLORIDE 0.9% IV 1,000 ML 500 ML IV CONT (09:59)
[2022-07-15 10:16] LABS: Base Excess ABG -4.6 mEq/l (+/-2.0); Fractional Inspired Oxygen 21 %; HCO3 ABG 19.7 mEq/l (22.0-26.0); Oxygen Content ABG 12.8 %vol (16.0-22.0); Oxygen Saturation ABG 91.9 % (95.0-100.0); Oxyhemoglobin 89.8 % THb (90.0-100.0); PCO2 ABG 33.6 mmHg (35.0-45.0); PO2 ABG 62.5 mmHg (80.0-100.0); PO2 FiO2 Ratio Arterial Blood 2.98 %; Total Hemoglobin 10.1 g/dL (12.0-18.0); pH ABG 7.386 (7.350-7.450)
[2022-07-15 10:17] LABS: Device ROOM AIR; Modified Allen's Test Pass; Site Drawn RIGHT BRACHIAL
[2022-07-15] MEDS: INSULIN GLARGINE (*BKC) 100 UNITS/ML 6 UNITS SUB-Q ×2 (10:51→22:23)
--- NOTE | 2022-07-15 11:30 | PC.NURSE ---
1100 Assumed pt care from ADILENE Kebede
[2022-07-15 12:43] LABS: Reflex Lactic Acid Yes or No Add Lactic
--- NOTE | 2022-07-15 13:26 | PM.IMHP ---
H&P: HPI History of Present Illness Date/Time: 07/15/22 13:26 Chief Complaint: Weakness Narrative: This is a 56-year-old male patient who has end-stage renal disease on dialysis Monday. The patient has been hospitalized many times. The patient was just discharged yesterday. The patient came back today because of numbness and weakness to his extremities. The patient is moving his extremities on his own. However the patient would not squeeze my hands. Head CT was read as the following 1. Chronic encephalomalacia in anterior left frontal lobe and anteroinferior left temporal lobe. Old lacunar infarct in the angelito. 2. Mild nonspecific cerebral white matter disease, which likely represents chronic small vessel ischemic disease. 3. No aneurysm or significant intracranial arterial stenosis. 4. 0% stenosis of the proximal internal carotid arteries relative to normal distal artery lumen diameters (NASCET criteria). 5. Moderate stenosis of the vertebral artery origins. CT of the head was read as a following ?Chronic left frontal cerebrovascular accident Cerebral atherosclerosis and chronic small vessel ischemic changes of the cerebral white matter. His H&H is 8.9 and 29.9. The patient does have anemia of chronic disease secondary to his end-stage renal disease. The patient is being admitted to observation status on the date of service of 07/15/2022. Review of Systems Review of Systems: See HPI All systems reviewed & are unremarkable except as noted in HPI and below Constitutional: Constitutional: Reports as per HPI and Reports no additional constitutional complaints Eyes: Eyes: Reports as per HPI and Reports no additional eye complaints ENT: Reports system reviewed and no additional complaints, except as documented and Reports Normal hearing present Cardiovascular: Cardiovascular: Reports no additional cardiovascular complaints Respiratory: Respiratory: Reports no additional respiratory complaints and Reports no additional respiratory complaints Gastrointestinal: Gastrointestinal: Reports as per HPI and Reports no additional gastrointestinal complaints Musculoskeletal: Musculoskeletal: Reports no additional musculoskeletal complaints Integumentary/Breasts: Skin/Breast: Reports system reviewed and no additional complaints, except as docu and Reports as per HPI Neurologic: Reports system reviewed and no additional complaints, except as documented, Reports as per HPI and Reports Normal hearing present Psychiatric: Psychiatric: Reports no additional psychiatric complaints and Reports as per HPI Endocrine: Endocrine: Reports no additional endocrine complaints Hematologic/Lymphatic: Hematologic/Lymphatic: Reports no additional hematologic/lymphatic complaints Allergic/Immunologic: Allergic/Immunologic: Reports no additional allergic/immunologic complaints PMFSH Past Medical History Medical History (Updated 07/15/22 @ 12:37 by Jesse Martinez MD) Amputation above knee Anxiety Benign prostatic hyperplasia Bradycardic cardiac arrest (~07/23/20) In the setting of severe hyperkalemia, acute pulmonary edema, and respiratory failure Chronic anemia Congestive heart failure Echo 03/06/2021 1. Complete two-dimensional, color flow and Doppler transthoracic echocardiogram is performed. 2. Left ventricular chamber dimension is mildly enlarged. 3. Left ventricular systolic function is mildly reduced, estimated at 55-60%. 4. There is severely increased left ventricular wall thickness. Speckled appearance of the myocardium. 5. The left ventricular diastolic function is grade I diastolic dysfunction. 6. Left atrial chamber dimension is mildly enlarged. 7. There is moderate aortic valve sclerosis. 8. The mitral valve annulus is severely calcified. 9. There is mild mitral valve regurgitation. 10. The mitral valve has thickened leaflets. 11. There is mild tricuspid valve regurgitation. 12. There is mild pulmonic regur
[2022-07-15 14:00] LABS: Lactic Acid 1.2 mmol/L (0.7-2.0)
--- NOTE | 2022-07-15 14:09 | PC.NURSE ---
Updated pt's Rosana on pt. Requested to be called if he is moved before she gets to the hospital.
--- NOTE | 2022-07-15 14:30 | PM.CNNEP ---
Assessment and Plan Assessment and plan (1) ESRD (end stage renal disease): Code(s): N18.6 - End stage renal disease Status: Chronic Assessment and Plan: HD due today stable electrolytes noted given relative hypotension, may not tolerate treatment today so will hold today outpatient treatment is usually M/W/F/Sat follow electrolytes, volume status, and clearance plan HD tomorrow (2) Weakness: Code(s): R53.1 - Weakness Status: Acute Assessment and Plan: etiology not clear imaging studies to date noted Neurology consultation for further assessment (3) Hypertension: Code(s): I10 - Essential (primary) hypertension Status: Chronic Assessment and Plan: has been quite erratic in the past history of HTN urgency leading to flash pulmonary edema and acute respiratory distress (usually requiring intubation) this has been better controlled with dialysis 4 days/week follow trend of hemodynamics (4) Anemia: Code(s): D64.9 - Anemia, unspecified Status: Chronic Assessment and Plan: due to ESRD and acute illness Epogen with HD follow trend of H/H (5) IDDM (insulin dependent diabetes mellitus): Status: Chronic Assessment and Plan: follow accuchecks glycemic control Will continue to follow. History of Present Illness Reason for Consult Consult date: 07/15/22 Reason for consult: end stage renal disease Chief Complaint Chief complaint: Weakness History of Present Illness Narrative: The patient is a 56-year-old male patient with a past medical history as outlined below who presented to [facility] Emergency room due to weakness and numbness in all his extremities. The patient was just discharged yesterday after being hospitalized for treatment of a right lower extremity stump infection. He clinically improved with IV antibiotic therapy and supportive measures and his culture data was negative so he was eventually transition to oral antibiotic therapy prior to discharge. Apparently, when the patient got home, he noted that he had difficulty in moving his upper and lower extremities due to severe weakness and numbness. Initially, he stated that he was unable to move his upper extremities or his lower extremities but is able now to move his upper extremities. He states he is unable to move his lower extremities and continues to have numbness and tingling as well. Workup and evaluation emergency room did not demonstrate any acute abnormalities with regard to his physical exam or laboratory findings aside from the a for mentioned weakness/numbness in his upper and lower extremities. His upper extremities were weak but he had more difficulty in movement with his hands. Routine blood test demonstrated labs consistent with his known history of end-stage renal disease without any critical electrolyte abnormalities. Imaging studies were negative for any type of acute intracranial process or blood flow issue. He was subsequently admitted to the hospital for further evaluation therapy and Neurology consultation. Renal consultation was requested due to his end-stage renal disease. The patient normally dialyzes on a Monday, Monday, Monday, and Monday schedule under the care of Dr. Luke Huynh at [facility]. He last received dialysis on 07/13/2022, the day before he was discharged from the hospital. He does have numerous hospitalizations for flash pulmonary edema/hypertensive urgency necessitating intubation and mechanical ventilation with the need for aggressive dialysis treatments with regard to ultrafiltration but usually he is extubated within 24-48 hours of these admissions and with dialysis 4x/week, this type of hospitalizations have been less frequent. His volume appears reasonable and his electrolytes, acidosis, and clearance are relatively stable at this time. he is due for dialysis t
[2022-07-15 15:41] LABS: Alveolar/Arterial O2 Gradient 68.9 mmHg; Base Excess ABG -2.8 mEq/l (+/-2.0); Fractional Inspired Oxygen 28 %; HCO3 ABG 21.7 mEq/l (22.0-26.0); Oxygen Content ABG 13.8 %vol (16.0-22.0); Oxygen Saturation ABG 96.7 % (95.0-100.0); Oxyhemoglobin 95.3 % THb (90.0-100.0); PCO2 ABG 36.6 mmHg (35.0-45.0); PO2 ABG 87.6 mmHg (80.0-100.0); PO2 FiO2 Ratio Arterial Blood 3.13 %; Total Hemoglobin 10.2 g/dL (12.0-18.0); pH ABG 7.391 (7.350-7.450)
[2022-07-15 15:42] LABS: Device NASAL CANNULA; Modified Allen's Test Pass; Site Drawn RIGHT BRACHIAL
[2022-07-15] MEDS: SILVERGEL (ELTA) 45 ML 1 APPLIC TOPICAL (16:45)
[2022-07-15] MEDS: NICOTINE (*PBKC) 21 MG PATCH 1 PATCH TRANSDERM (16:46)
[2022-07-15 16:49] LABS: Glucose Point of Care 162 mg/dl (65-105)
--- NOTE | 2022-07-15 18:20 | PC.NURSE ---
This patient, Ish Corley, was received from ED on 07/15/22 at 1630. Patient/family oriented to unit policies and routines
[2022-07-15] MEDS: carvediloL 3.125 MG TABLET PO (20:13)
[2022-07-15] MEDS: CLINDAMYCIN HCL 150 MG CAP 300 MG PO (20:13)
[2022-07-15] MEDS: LORazepam (*CRX) 1 MG TABLET PO (21:09)
[2022-07-15 21:37] LABS: Glucose Point of Care 182 mg/dl (65-105)
[2022-07-15] MEDS: HYDROcodone/acetaminophen (*CRX) 5-325 MG TABLET 1 TAB PO (22:24)
[2022-07-16] VITALS (70 sets, daily range): BP systolic 84–170; BP diastolic 52–90; PULSE 79–108; RESP 13–20; TEMP 36–36.8; O2SAT 96–100
[2022-07-16] MEDS: CLINDAMYCIN HCL 150 MG CAP 300 MG PO ×3 (00:54→18:24)
--- NOTE | 2022-07-16 03:00 | PC.NURSE ---
When assessing patient's strength/set up worker during neuro checks patient is unable to move/squeeze hands. Witnessed patient using hands to bulk picker food and feed self when walking by room.
[2022-07-16 06:13] LABS: Lactic Acid Reflex 1.4 mmol/L (0.7-2.0)
[2022-07-16 06:15] LABS: Basophils Absolute Auto 0.1 K/mm3 (0.0-0.1); Basophils Percent Auto 0.9 % (0.2-1.2); Eosinophils Absolute Auto 0.3 K/mm3 (0-0.3); Eosinophils Percent Auto 4.6 % (0-4.4); Hematocrit 31.3 % (42.0-52.0); Hemoglobin 9.2 g/dL (14.0-18.0); Immature Granulocyte Absolute 0.05 K/mm3 (0.00-0.031); Immature Granulocyte Percent A 0.7 % (0-0.5); Lymphocytes Absolute Auto 2.04 K/mm3 (0.9-3.2); Lymphocytes Percent Auto 27.3 % (18.3-44.2); Mean Corpuscular HGB Conc 29.4 g/dl (32-36); Mean Corpuscular Hemoglobin 30.4 pg (26-34); Mean Corpuscular Volume 103.3 fl (80-100); Mean Platelet Volume 9.1 fl (7.4-10.4); Monocytes Absolute Auto 0.7 K/mm3 (0.1-0.6); Monocytes Percent Auto 9.5 % (2.6-8.5); Neutrophils Absolute Auto 4.3 K/mm3 (1.3-6.7); Nucleated Red Blood Cells Perc 0.3 % (0.0-0.2); Platelet Count Result 725 k/mm3 (150-375); Red Blood Count 3.03 M/mm3 (4.6-6.20); Red Cell Distribution Width 17.7 % (11.5-14.5); White Blood Count 7.5 K/mm3 (4.5-10.0)
[2022-07-16 06:16] LABS: Alanine Aminotransferase 7 U/L (6-50); Alkaline Phosphatase 100 U/L (38-126); Anion Gap 15 mmol/L (8-16); Aspartate Amino Transferase 25 U/L (17-59); Bilirubin,Total 0.3 mg/dL (0.2-1.3); Blood Urea Nitrogen 34 mg/dL (9-20); CRP 5.8 mg/dL (<1.0); Calcium 8.5 mg/dL (8.4-10.2); Carbon Dioxide 20 mmol/L (22-30); Chloride 101 mmol/L (98-107); Estimated CRCL calculation 7 ml/min; Estimated Glomerular Filt Rate 7; Glucose 192 mg/dL (65-110); Magnesium 2.3 mg/dL (1.6-2.3); Phosphorus 7.2 mg/dL (2.5-4.5); Potassium 5.2 mmol/L (3.4-5.0); Sodium 136 mmol/L (137-145)
[2022-07-16 06:42] LABS: Anisocytosis 1+ (NORMAL); Platelet Estimate Increased (Adequate); Poikilocytosis 1+ (NORMAL)
[2022-07-16] MEDS: NICOTINE (*PBKC) 21 MG PATCH 1 PATCH TRANSDERM (08:59)
[2022-07-16] MEDS: INSULIN GLARGINE (*BKC) 100 UNITS/ML SUB-Q (09:00)
[2022-07-16] MEDS: INSULIN ASPART (*BKC) 100 UNITS/ML SUB-Q ×3 (09:00→21:04)
--- NOTE | 2022-07-16 09:17 | PC.NURSE ---
pt takes meds after dialysis treatment, insulin administered with breakfast
[2022-07-16 09:22] LABS: Glucose Point of Care 173 mg/dl (65-105)
--- NOTE | 2022-07-16 10:31 | PM.PNNEP ---
Progress Note: A&P Assessment and Plan (1) ESRD (end stage renal disease): Code(s): N18.6 - End stage renal disease Status: Chronic Assessment and Plan: HD today outpatient treatment is usually M/W/F/Sat follow electrolytes, volume status, and clearance (2) Weakness: Code(s): R53.1 - Weakness Status: Acute Assessment and Plan: Neurology recommendations noted/reviewed CT scan of spine and lumbar puncture ordered follow-up on pending testing (3) Hypertension: Code(s): I10 - Essential (primary) hypertension Status: Chronic Assessment and Plan: has been quite erratic in the past history of HTN urgency leading to flash pulmonary edema and acute respiratory distress (usually requiring intubation) this has been better controlled with dialysis 4 days/week follow trend of hemodynamics (4) Anemia: Code(s): D64.9 - Anemia, unspecified Status: Chronic Assessment and Plan: due to ESRD and acute illness Epogen with HD follow trend of H/H (5) IDDM (insulin dependent diabetes mellitus): Status: Chronic Assessment and Plan: follow accuchecks glycemic control Will continue to follow. Subjective Date/time seen: 07/16/22 10:31 Seen by Neurology this AM with recommendations noted; about to leave for CT scan of spine and possibly lumbar puncture as ordered by Neurology at the time of my visit; still reports weakness more so in his lower extremities than upper extremities; due for dialysis today; no acute issues overnight. Exam Narrative: General: WD/WN male in NAD Heart: normal S1 and S2; no rub Lungs: clear to auscultation Abdomen: soft, nontender, nondistended, positive bowel sounds Extremities: no cyanosis or clubbing; no edema Skin: warm and dry Objective Data Vital Signs Vital Signs: Vital Signs Temp Pulse Resp BP Pulse Ox O2 Del Method 07/16/22 08:00 97 07/16/22 07:45 Room Air 07/16/22 09:29 Room Air 07/16/22 06:00 36.8 C 93 15 158/71 H 100 07/16/22 04:00 94 07/16/22 00:00 91 07/15/22 20:00 Room Air 07/15/22 20:00 91 07/15/22 20:30 37.1 C 90 16 135/54 L 96 07/15/22 20:13 84 07/15/22 17:00 Room Air 07/15/22 16:15 91 13 108/56 L 07/15/22 16:00 91 14 111/60 100 07/15/22 15:55 92 14 97/59 L 100 07/15/22 15:38 92 15 97/59 L 100 07/15/22 14:15 91 100 07/15/22 14:00 90 100 Intake/Output Intake/Output: Intake & Output 07/13/22 07/14/22 07/15/22 07/16/22 23:59 23:59 23:59 23:59 Intake Total 1000 540 Output Total 0 Balance 1000 540 Meds/Results Medications: Active Medications Generic Name Dose Route Start Last Admin Trade Name Freq PRN Reason Stop Dose Admin Acetaminophen 650 mg 07/15/22 19:19 Acetaminophen 325 Mg Tablet PO Q4H PRN Mild Pain (1-3) Or Fever Albuterol 1 puff 07/15/22 19:19 Albuterol Sulfate (*Sp) Aerosol 1 Puff INHALATION QIDRT PRN Shortness Of Breath Aspirin 81 mg 07/16/22 09:00 Aspirin 81 Mg Enteric Tablet PO 08/15/22 08:59 DAILY MARTHA Atorvastatin Calcium 80 mg 07/16/22 09:00 Atorvastatin 40 Mg Tablet PO DAILY MARTHA Carvedilol 3.125 mg 07/15/22 21:00 07/15/22 20:13 Carvedilol 3.125 Mg Tablet PO 3.125 mg Q12HR MARTHA Administration Clindamycin HCl 300 mg 07/15/22 19:20 07/16/22 05:51 Clindamycin Hcl 150 Mg Cap PO 300 mg Q6HR MARTHA Administration Cyanocobalamin 1,000 mcg 07/16/22 09:00 Cyanocobalamin 1,000 Mcg Tablet PO 08/15/22 08:59 DAILY MARTHA Dextrose 12.5 gm 07/15/22 09:30 Dextrose 50% 25 Gm/50 Ml Syringe IV PUSH PRN PRN Hypoglycemia Protocol Dextrose 12.5 gm 07/16/22 05:45 Dextrose 50% 25 Gm/50 Ml Syringe IV PUSH PRN PRN Hypoglycemia Protocol Epoetin Johnnie-epbx 10,000 units 07/16/22 22:19
--- NOTE | 2022-07-16 10:31 | WPDNEURCNPN ---
Assessment and Plan Assessment and plan (1) Weakness: Code(s): R53.1 - Weakness Status: Acute Assessment and Plan: Ish Corley is a 56 year old male with a history of prior L frontal and L temporal strokes, DM, CAD with stents, prior IN, CHF, ESRD on dialysis, HTN, R BKA and L AKA presenting after recent hospital admission for cellulitis, with new weakness in bilateral hands and lower extremities. Exam showed T4 sensory level with lower extremity weakness. Concern for spinal cord pathology such as spinal absence vs discitis vs transverse myelitis vs acute flaccid myelitis. T4 level does not explain the numbness or weakness in the hand, but this could be secondary to the swelling. Also considering Guillain [place] syndrome. Course is complicated by inability to obtain spinal MRI due to patient's spinal stimulator. Patient will need CT complete spine w/wo contrast to rule out structural lesion. If negative, will need LP with CSF studies to rule out infectious vs autoimmune process. - CT of complete spine w/wo contrast, LP, and CSF studies ordered - If LP consistent with infectious would need treatment with antibiotics, but if consistent with transverse myelitis would need high dose solumedrol for 5 days, and if consistent with GBS would need IVIG for 5 days. Both treatments, especially IVIG carry high risk given his comorbidities. - Will check Immunoglobulin levels in case we do proceed with IVIG Consult date: 07/16/22 Time Seen: 10:32 Reason for consult: Bilateral upper and lower extremity weakness HPI: Ish Corley is a 56 year old male with a history of DM, CAD with stents, prior IN, CHF, ESRD on dialysis, HTN, R BKA and L AKA presenting after recent hospital admission with weakness in bilateral hands and lower extremities. Patient was recently admitted to [place] for cellulitis of his right knee stump. He was treated with antibiotics and his cultures showed no growth during the admission. He was discharged on 07/14 and was feeling fine at that time. He came home from the hospital and reportedly took two hits of medical marijuana and fell asleep. The following day on 07/15 patient reports that he was difficult to wake up. When he did finally wake up he noticed that he could not move his torso, hands, or lower extremities. This has been constant since then. He denies any bowel or bladder incontinence. He reports that he does have sensation in his genital and anal area, but reports numbness in bilateral hands and bilateral lower extremities. His strength in his arms (other than his hands) is completely is normal. He denies any vision changes such as blurry or double vision, dysphagia, chest pain, or increased shortness of breath from his baseline. No fevers. He denied any other drug use. His last BM was 2 days ago and he has not urinated in a few days but he says that is his baseline given his kidney disease. At [place] he had a CT head which showed prior L frontal and L temporal infarcts (chronic). CTA showed no stenosis of the ICAs but moderate stenosis of vertebral artery origins. He had a carotid doppler of his neck which was negative. He was admitted for further evaluation with MRI. However, patient has a spinal stimulator that was placed 20 years ago so he cannot get an MRI. This morning, patient was eating breakfast with the help of OT. He can move his arms, but has difficulty using his hands. He still has poor truncal control and no movement in his lower extremities. Review of Systems Constitutional: Constitutional: Denies chills and Reports weakness Eyes: Eyes: Reports no additional eye complaints and Denies blurry vision ENT: Reports Normal hearing present and Denies dysphagia Cardiovascular: Cardiovascular: Reports no additional cardiovascular complaints Respiratory: Respiratory: Reports cough and Reports dyspnea on exertion Gastrointestinal: Gastrointestinal: Reports constipation Comments: no BM for past two days Gen
--- NOTE | 2022-07-16 11:20 | PC.NURSE ---
6 attempts to gain IV access by myself and nursing media supervisor, unable to get IV, CT will be done without contrast
--- NOTE | 2022-07-16 12:50 | PM.IMPN ---
Progress Note: A&P Assessment and Plan (1) Weakness: Code(s): R53.1 - Weakness Status: Acute Assessment and Plan: Appreciate neurology input. CT scan of the spine and then a lumbar puncture. Differential includes transverse myelitis (2) Anemia: Code(s): D64.9 - Anemia, unspecified Status: Chronic Assessment and Plan: Monitor (3) Hypertension: Code(s): I10 - Essential (primary) hypertension Status: Chronic Assessment and Plan: -continue Coreg (4) Diabetes mellitus: Code(s): E11.9 - Type 2 diabetes mellitus without complications Status: Chronic Assessment and Plan: -Accu-Cheks AC and HS -sliding scale insulin (5) ESRD (end stage renal disease) on dialysis: Code(s): N18.6 - End stage renal disease; Z99.2 - Dependence on renal dialysis Status: Chronic Assessment and Plan: -nephrology has been consulted. Hemodialysis as needed per Nephrology (6) Smoking: Code(s): F17.200 - Nicotine dependence, unspecified, uncomplicated Status: Acute Assessment and Plan: -continue with nicotine patch (7) HLD (hyperlipidemia): Qualifiers: Hyperlipidemia type: unspecified Qualified Code(s): E78.5 - Hyperlipidemia, unspecified Code(s): E78.5 - Hyperlipidemia, unspecified Status: Chronic Assessment and Plan: -continue with atorvastatin (8) Depression: Qualifiers: Depression Type: major depressive disorder Major depression recurrence: recurrent Active/Remission status: currently active Major depression episode severity: moderate Qualified Code(s): F33.1 - Major depressive disorder, recurrent, moderate Code(s): F32.9 - Major depressive disorder, single episode, unspecified Status: Acute Assessment and Plan: -continue with sertraline (9) Coronary artery disease: Qualifiers: Coronary Disease-Associated Artery/Lesion type: [place] artery [place] vs. transplanted heart: [place] heart Associated angina: without angina Qualified Code(s): I25.10 - Atherosclerotic heart disease of [place] coronary artery without angina pectoris Code(s): I25.10 - Atherosclerotic heart disease of [place] coronary artery without angina pectoris Status: Acute Assessment and Plan: -continue with aspirin -continue with Coreg -continue with Brilinta -continue with atorvastatin Plan The patient has been treated for cellulitis to the right stump. It looks like the area scabbed over and there is a Band-Aid on it. I did refer him to wound care clinic. Also will continue with the outpatient antibiotics to clindamycin. His blood cultures grew nothing after 5 days. Subjective Date/time seen: 07/16/22 12:50 Still having weakness Exam Const: General: cooperative, no acute distress, ill appearing, intoxicated appearing, lethargic and tired appearing Nutritional Appearance: underweight Orientation/consciousness: oriented to person, oriented to place, oriented to time, patient oriented x3 and lethargic HENMT: Head: normal to inspection, No palpable skull fracture present and normocephalic Ears: hearing grossly normal bilaterally, external ears normal and TM's normal bilaterally General nose exam: Normal external nose present, Normal nares present and No nasal polyps present Mouth: Yes Normal oral and palatal mucosa present Throat: posterior oropharynx normal Eyes: General: appearance normal, both eyes and all related structures Alignment and Position: alignment normal Periorbital: periorbital findings normal Eyelids: eyelids normal Conjunctivae: conjunctivae normal Sclera: sclerae normal Cornea: corneas normal Pupils: Equal, round and reactive pupils present and Pupil accommodation reflex normal EOM: EOMs intact bilaterally Neck: Neck: normal visual inspection, full ROM, no lymphadenopathy, trachea midline and supple Thyroid: thyroid normal Carotids:
--- NOTE | 2022-07-16 13:43 | PC.NURSE ---
pt returned to floor from radiology, taken directly to dialysis, pt instructed that he will still need to lay flat
[2022-07-16] MEDS: ACETAMINOPHEN 325 MG TABLET 650 MG PO (13:48)
[2022-07-16] MEDS: LORazepam (*CRX) 1 MG TABLET PO (13:48)
[2022-07-16 14:02] LABS: Glucose CSF 121 mg/dL (40-70); Total Protein CSF 129 mg/dL (12-60)
[2022-07-16 14:10] LABS: Appearance CSF Clear (Clear); CSF source CSF; Color CSF Colorless (Colorless)
[2022-07-16 14:17] LABS: Nucleated Cell CSF 4 /uL (0-5); Red Blood Cell CSF 3.85 (0-2)
[2022-07-16 14:18] LABS: Lymphocytes CSF 32 % (40-80); Monocytes CSF 24 % (15-45)
[2022-07-16 14:19] LABS: Neutrophils CSF 44 % (0-6)
[2022-07-16] MEDS: ALBUMIN HUMAN 25% 12.5 GM/50ML 50 ML IVPB (15:13)
[2022-07-16] MEDS: HEPARIN SODIUM 1,000 UNITS/ML VIAL 6000 UNITS (15:13)
[2022-07-16] MEDS: EPOETIN ALFA-EPBX 10,000 UNITS/ML VIAL 10000 UNITS IV PUSH (15:13)
[2022-07-16] MEDS: SODIUM CHLORIDE 0.9% IV 1,000 ML 999 ML IV CONT (15:14)
[2022-07-16 15:30] LABS: Immunoglobulin A 565 mg/dL (70-400); Immunoglobulin G 871 mg/dL (700-1600); Immunoglobulin M 66 mg/dL (40-230)
--- NOTE | 2022-07-16 18:14 | PC.NURSE ---
pt back to room from dialysis, incontinent of stool, cleaned up and repositioned, asking to eat a some dinner and take meds
[2022-07-16] MEDS: ATORVASTATIN 40 MG TABLET 80 MG PO (18:21)
[2022-07-16] MEDS: ASPIRIN 81 MG ENTERIC TABLET PO (18:21)
[2022-07-16] MEDS: PANTOPRAZOLE 40 MG TABLET PO (18:21)
[2022-07-16] MEDS: VITAMIN B CMPLX/VIT C/FOLIC AC 1 CAPSULE 1 CAP PO (18:21)
[2022-07-16] MEDS: carvediloL 3.125 MG TABLET PO (18:21)
[2022-07-16] MEDS: SERTRALINE HCL 50 MG TABLET 100 MG PO (18:22)
[2022-07-16] MEDS: SILVERGEL (ELTA) 45 ML 1 APPLIC TOPICAL (18:22)
[2022-07-16] MEDS: TICAGRELOR 60 MG TABLET PO (18:22)
[2022-07-16] MEDS: CYANOCOBALAMIN 1,000 MCG TABLET 1000 MCG PO (18:23)
[2022-07-16] MEDS: CHOLECALCIFEROL 1,000 UNITS TABLET 1000 UNITS PO (18:23)
[2022-07-16] MEDS: GABAPENTIN 300 MG CAPSULE PO (18:23)
[2022-07-16 18:29] LABS: Glucose Point of Care 148 mg/dl (65-105)
--- NOTE | 2022-07-16 19:08 | PC.NURSE ---
Patient's made aware of transfer from [id number] to ICU 9 with update of current status.
--- NOTE | 2022-07-16 19:21 | PC.NURSE ---
This patient, Ish Corley, was received from [[id number] ] on 07/16/22 at 1854. Patient/family oriented to unit policies and routines
--- NOTE | 2022-07-16 19:41 | PC.NURSE ---
pt transferred to ICU room 9 via bed, reviewed plan of care, pt oriented to new room and environment, nursing staff in room to greet pt and attach monitors, no distress noted
[2022-07-16 20:51] LABS: Glucose Point of Care 301 mg/dl (65-105)
[2022-07-16] MEDS: INSULIN GLARGINE (*BKC) 100 UNITS/ML 6 UNITS SUB-Q (21:00)
--- NOTE | 2022-07-16 23:19 | PC.NURSE ---
2230 two failed attempts to initiate peripheral access.
[2022-07-17] VITALS (16 sets, daily range): BP systolic 115–152; BP diastolic 36–87; PULSE 78–110; RESP 14–19; TEMP 36.3–36.8; O2SAT 94–100
[2022-07-17] MEDS: CLINDAMYCIN HCL 150 MG CAP 300 MG PO ×4 (00:51→20:14)
--- NOTE | 2022-07-17 08:13 | WPDNEUROPN ---
Progress Note: A&P Assessment and Plan (1) Weakness: Code(s): R53.1 - Weakness Status: Acute Assessment and Plan: Ish Corley is a 56 year old male with a history of prior L frontal and L temporal strokes, DM, CAD with stents, prior [place], CHF, ESRD on dialysis, HTN, R BKA and L AKA presenting after recent hospital admission for cellulitis, with new weakness in bilateral hands and lower extremities. Exam showed T4 sensory level with lower extremity weakness. Concern for spinal cord pathology such as spinal absence vs discitis vs transverse myelitis vs acute flaccid myelitis. T4 level does not explain the numbness or weakness in the hand, but this could be secondary to the swelling. Also considering Guillain Dennison syndrome. CT complete spine only showed spondylosis and post-operative changes, but no compressive or structural lesion/mass. CSF studies showed cell count of 4 with elevated protein of 129, consistent with cytoalbuminologic dissociation, which is more concerning for Guillain Denn[place] syndrome. Discussed risks and benefits of IVIG and patient is agreeable to treatment. - MRI cervical, thoracic, lumbar spine w/wo contrast to exclude transverse myelitis - Recommend ICU status with q4hrs NIFs given risk for autonomic dysfunction and respiratory decompensation.? - If MRI is negative for transverse myelitis will start IVIG: - IVIG dosing - 0.4g/kg per day x 5 days, this will have to be coordinated around his dialysis - pretreat IVIG with Tylenol 650mg and Benadryl 25mg, both 30 min before the infusion. Subjective Date/time seen: 07/17/22 08:13 Interval history: Ish Corley is a 56 year old male with a history of DM, CAD with stents, prior [place], CHF, ESRD on dialysis, HTN, R BKA and L AKA presenting after recent hospital admission with weakness in bilateral hands and lower extremities. Patient was recently admitted to [facility] for cellulitis of his right knee stump. He was treated with antibiotics and his cultures showed no growth during the admission. He was discharged on 07/14 and was feeling fine at that time. He came home from the hospital and reportedly took two hits of medical marijuana and fell asleep. The following day on 07/15 patient reports that he was difficult to wake up. When he did finally wake up he noticed that he could not move his torso, hands, or lower extremities. This has been constant since then. He denies any bowel or bladder incontinence. He reports that he does have sensation in his genital and anal area, but reports numbness in bilateral hands and bilateral lower extremities. His strength in his arms (other than his hands) is completely is normal. He denies any vision changes such as blurry or double vision, dysphagia, chest pain, or increased shortness of breath from his baseline. No fevers.? He denied any other drug use. His last BM was 3 days ago and he has not urinated in a few days but he says that is his baseline given his kidney disease. At [facility] he had a CT head which showed prior L frontal and L temporal infarcts (chronic). CTA showed no stenosis of the ICAs but moderate stenosis of vertebral artery origins. He had a carotid doppler of his neck which was negative. He was admitted for further evaluation with MRI. However, patient has a spinal stimulator that was placed 20 years ago so he cannot get an MRI. Lumbar puncture was done yesterday which showed elevated protein of 182 and cell count of 4. Concern for Guillan Dennison. Obtained CT complete spine to rule out cord compression or other structural lesion. CT cervical spine showed mild cervical spondylosis. The thoracic and lumbar CT showed anterior and posterior fusion procedures from L4-S1. Vitals have been stable in the ICU and NIFs have been normal as well. Patient reports no change in his symptoms from yesterday. Discussed treatment with IVIG and the risks associated with and he would like to move forward with treatment. Review of Systems Constitutional:
[2022-07-17 08:47] LABS: Basophils Absolute Auto 0.1 K/mm3 (0.0-0.1); Basophils Percent Auto 0.9 % (0.2-1.2); Eosinophils Absolute Auto 0.2 K/mm3 (0-0.3); Eosinophils Percent Auto 2.2 % (0-4.4); Hematocrit 35.7 % (42.0-52.0); Hemoglobin 10.4 g/dL (14.0-18.0); Immature Granulocyte Absolute 0.05 K/mm3 (0.00-0.031); Immature Granulocyte Percent A 0.6 % (0-0.5); Lymphocytes Absolute Auto 1.26 K/mm3 (0.9-3.2); Lymphocytes Percent Auto 14.3 % (18.3-44.2); Mean Corpuscular HGB Conc 29.1 g/dl (32-36); Mean Corpuscular Volume 106.3 fl (80-100); Monocytes Absolute Auto 0.9 K/mm3 (0.1-0.6); Monocytes Percent Auto 10.4 % (2.6-8.5); Neutrophils Absolute Auto 6.3 K/mm3 (1.3-6.7); Neutrophils Percent Auto 71.6 % (45.5-73.1); Platelet Count Result 612 k/mm3 (150-375); Red Blood Count 3.36 M/mm3 (4.6-6.20); Red Cell Distribution Width 18.6 % (11.5-14.5); White Blood Count 8.8 K/mm3 (4.5-10.0)
[2022-07-17 08:59] LABS: Alanine Aminotransferase 9 U/L (6-50); Albumin Level 3.4 g/dL (3.5-5.1); Alkaline Phosphatase 103 U/L (38-126); Anion Gap 13 mmol/L (8-16); Aspartate Amino Transferase 31 U/L (17-59); Bilirubin,Total 0.4 mg/dL (0.2-1.3); Blood Urea Nitrogen 25 mg/dL (9-20); Calcium 8.9 mg/dL (8.4-10.2); Carbon Dioxide 24 mmol/L (22-30); Chloride 101 mmol/L (98-107); Estimated CRCL calculation 10 ml/min; Estimated Glomerular Filt Rate 11; Glucose 189 mg/dL (65-110); Magnesium 2.2 mg/dL (1.6-2.3); Phosphorus 7.1 mg/dL (2.5-4.5); Potassium 5.1 mmol/L (3.4-5.0); Sodium 138 mmol/L (137-145)
[2022-07-17] MEDS: GABAPENTIN 300 MG CAPSULE PO (09:01)
[2022-07-17] MEDS: carvediloL 3.125 MG TABLET PO ×2 (09:01→20:54)
[2022-07-17] MEDS: CYANOCOBALAMIN 1,000 MCG TABLET 1000 MCG PO (09:01)
[2022-07-17] MEDS: ASPIRIN 81 MG ENTERIC TABLET PO (09:01)
[2022-07-17] MEDS: ATORVASTATIN 40 MG TABLET 80 MG PO (09:01)
[2022-07-17] MEDS: INSULIN ASPART (*BKC) 100 UNITS/ML SUB-Q ×2 (09:01→18:34)
[2022-07-17] MEDS: NICOTINE (*PBKC) 21 MG PATCH 1 PATCH TRANSDERM (09:01)
[2022-07-17] MEDS: CHOLECALCIFEROL 1,000 UNITS TABLET 1000 UNITS PO (09:01)
[2022-07-17] MEDS: INSULIN GLARGINE (*BKC) 100 UNITS/ML SUB-Q (09:01)
[2022-07-17] MEDS: VITAMIN B CMPLX/VIT C/FOLIC AC 1 CAPSULE 1 CAP PO (09:02)
[2022-07-17] MEDS: PANTOPRAZOLE 40 MG TABLET PO (09:02)
[2022-07-17] MEDS: SERTRALINE HCL 50 MG TABLET 100 MG PO (09:02)
[2022-07-17] MEDS: TICAGRELOR 60 MG TABLET PO ×2 (09:02→18:35)
[2022-07-17] MEDS: SILVERGEL (ELTA) 45 ML 1 APPLIC TOPICAL ×2 (09:02)
--- NOTE | 2022-07-17 10:35 | PCPTNOTE ---
pt has been transferred to ICU for closer monitoring. He has not had a change in status. He has had/ is having further testing and work up for neurological issues--differential diagnosis --? Guillian [place]. To continue PT treatment as ordered, continue to monitor his status and confer with nursing and physicians for any changes.
--- NOTE | 2022-07-17 11:00 | PM.IMPN ---
Progress Note: A&P Assessment and Plan (1) Weakness: Code(s): R53.1 - Weakness Status: Acute Assessment and Plan: Appreciate neurology input. CT scan of the spine and then a lumbar puncture. Differential includes transverse myelitis versus Guillain-[place]. Patient would like to proceed with IVIG or plasmapheresis. Neurology following MRI then proceed with either IVIG or plasmapheresis. This will be managed by neurologist. (2) Anemia: Code(s): D64.9 - Anemia, unspecified Status: Chronic Assessment and Plan: Monitor (3) Hypertension: Code(s): I10 - Essential (primary) hypertension Status: Chronic Assessment and Plan: -continue Coreg (4) Diabetes mellitus: Code(s): E11.9 - Type 2 diabetes mellitus without complications Status: Chronic Assessment and Plan: -Accu-Cheks AC and HS -sliding scale insulin (5) ESRD (end stage renal disease) on dialysis: Code(s): N18.6 - End stage renal disease; Z99.2 - Dependence on renal dialysis Status: Chronic Assessment and Plan: -nephrology has been consulted. Hemodialysis as needed per Nephrology (6) Smoking: Code(s): F17.200 - Nicotine dependence, unspecified, uncomplicated Status: Acute Assessment and Plan: -continue with nicotine patch (7) HLD (hyperlipidemia): Qualifiers: Hyperlipidemia type: unspecified Qualified Code(s): E78.5 - Hyperlipidemia, unspecified Code(s): E78.5 - Hyperlipidemia, unspecified Status: Chronic Assessment and Plan: -continue with atorvastatin (8) Depression: Qualifiers: Depression Type: major depressive disorder Major depression recurrence: recurrent Active/Remission status: currently active Major depression episode severity: moderate Qualified Code(s): F33.1 - Major depressive disorder, recurrent, moderate Code(s): F32.9 - Major depressive disorder, single episode, unspecified Status: Acute Assessment and Plan: -continue with sertraline (9) Coronary artery disease: Qualifiers: Coronary Disease-Associated Artery/Lesion type: [place] artery [place] vs. transplanted heart: [place] heart Associated angina: without angina Qualified Code(s): I25.10 - Atherosclerotic heart disease of [place] coronary artery without angina pectoris Code(s): I25.10 - Atherosclerotic heart disease of [place] coronary artery without angina pectoris Status: Acute Assessment and Plan: -continue with aspirin -continue with Coreg -continue with Brilinta -continue with atorvastatin Subjective Date/time seen: 07/17/22 11:00 Patient reports he is doing about the same. Denies any progression of neurologic complaints Exam Narrative: General: alert and oriented Psych: appropriate mood nad affect Eyes: PERRLA Neck: Trachea midline, no new lesions Skin: no changes Lungs: CTA Cardiac: Normal S1,S2, no MGR ABD: soft, nd, nt, nbs Ext: no new lesions, no cce Vasc: Pulses intact Neuro, ongoing weakness of the lower extremities and hands. Objective Data Vital Signs Vital Signs: Vital Signs - 24 hr 07/16/22 12:00 07/16/22 13:29 07/16/22 12:38 Temperature Pulse Rate 97 101 H 97 Respiratory Rate 16 14 Blood Pressure 157/84 H 165/85 H Pulse Oximetry 100 96 Oxygen Delivery 07/16/22 14:00 07/16/22 16:00 07/16/22 18:21 Temperature 97.9 F Pulse Rate 96 96 87 Respiratory Rate 18 Blood Pressure 170/90 H Pulse Oximetry 96 Oxygen Delivery 07/16/22 11:15 07/16/22 11:30 07/16/22 11:45 Temperature Pulse Rate 100 96 94 Respiratory Rate Blood Pressure Pulse Oximetry Oxygen Delivery 07/16/22 12:00 07/16/22 12:53 07/16/22 13:16 Temperature Pulse Rate 100 99 101 H Respiratory Rate Blood Pressure Pulse Oximetry Oxygen Delivery 07/16/22 14:00 07/16/22 14:44 07/16/22 15:29 Temperature Pulse Rat
--- NOTE | 2022-07-17 11:15 | PC.NURSE ---
AM glucose 212 per Dexcom treated per mealtime SSI
--- NOTE | 2022-07-17 11:19 | WPDCNINT ---
Assessment and Plan Assessment and plan (1) Weakness: Code(s): R53.1 - Weakness Status: Acute Assessment and Plan: Patient with weakness on the upper extremities and lower extremities bilaterally, albuminocytologic dissociation on lumbar puncture concerning for Guillain-[place] syndrome -patient recently admitted the hospital for cellulitis. -MRI has been ordered to rule out transverse myelitis. -continue monitoring in the ICU with Q4 hrs NIFs, neurological examination, monitor respiratory status -appreciate neurology following the patient -discussed with Neurology, if MRI is negative for transfers myelitis will start IVIG (2) Cellulitis: Code(s): L03.90 - Cellulitis, unspecified Status: Acute Assessment and Plan: Patient was discharged on 07/14/2022 we he was admitted for cellulitis, currently on clindamycin -wound care following the patient (3) Anemia: Code(s): D64.9 - Anemia, unspecified Status: Chronic Assessment and Plan: Hemoglobin has been stable, likely anemia of chronic disease secondary to end-stage renal disease (4) Diabetes mellitus: Code(s): E11.9 - Type 2 diabetes mellitus without complications Status: Chronic Assessment and Plan: Continue Accu-Cheks and sliding scale insulin along with Lantus (5) CAD (coronary artery disease): Code(s): I25.10 - Atherosclerotic heart disease of [place] coronary artery without angina pectoris Status: Acute Assessment and Plan: Continue Brilinta, carvedilol aspirin Plan DVT prophylaxis: No chemoprophylaxis given anemia and LP done yesterday. Stress ulcer prophylaxis: Protonix Nutrition: Tolerating oral diet Code Status: Full code Critical Care Time Spent: 51 minutes Due to a high probability of clinically significant, life threatening deterioration, the patient required my highest level of preparedness to intervene emergently and I personally spent this critical care time directly and personally managing the patient. This critical care time included obtaining a history; examining the patient; pulse oximetry; ordering and review of studies; arranging urgent treatment with development of a management plan; evaluation of patient's response to treatment; frequent reassessment; and discussions with other providers. It was exclusive of separately billable procedures and treating other patients and teaching time. 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 Patient was just discharged from the hospital on 07/14/2022 very was admitted for right lower extremity cellulitis and was placed on clindamycin and discharged home. Patient presented on 07/15/2022 with new weakness in his bilateral upper and lower extremity, increased somnolence and lethargy. CT scan of cervical, thoracic, lumbar spine showed moderate thoracic and lumbar spondylolysis, anterior and posterior fusion procedure of L4-S1, nodules in the lungs which may be infection or malignancy, airspace opacities in lower lung lobes consistent with atelectasis. Moderate cervical spondylosis. Lumbar puncture was performed on 07/15/2022 which showed albuminocytologic dissociation, which was concerning for Guillain-[place] syndrome, patient was transferred to the ICU for close monitor. Patient seen and examined the ICU this morning, continues to complain of bilateral upper extremity and lower extremity weakness.
--- NOTE | 2022-07-17 11:59 | PM.PNNEP ---
Progress Note: A&P Assessment and Plan (1) ESRD (end stage renal disease): Code(s): N18.6 - End stage renal disease Status: Chronic Assessment and Plan: HD yesterday plan HD tomorrow outpatient treatment is usually M/W/F/Sat follow electrolytes, volume status, and clearance (2) Weakness: Code(s): R53.1 - Weakness Status: Acute Assessment and Plan: Neurology following imaging and LP findings noted MRI to rule out tranverse myelitis possible IVIG therapy (3) Hypertension: Code(s): I10 - Essential (primary) hypertension Status: Chronic Assessment and Plan: has been quite erratic in the past history of HTN urgency leading to flash pulmonary edema and acute respiratory distress (usually requiring intubation) this has been better controlled with dialysis 4 days/week follow trend of hemodynamics (4) Anemia: Code(s): D64.9 - Anemia, unspecified Status: Chronic Assessment and Plan: due to ESRD and acute illness Epogen with HD follow trend of H/H (5) IDDM (insulin dependent diabetes mellitus): Status: Chronic Assessment and Plan: follow accuchecks glycemic control Will continue to follow. Subjective Date/time seen: 07/17/22 11:59 Tolerated dialysis treatment yesterday although his HD catheter was causing alarms throughout his HD treatment and he also had some issues with hypotension as well; transferred to ICU for closer monitoring after lumbar puncture findings (done yesterday) were concerning for possible Guillain-[place] syndrome; still complaining of upper and lower extremity weakness at this time. Exam Narrative: General: WD/WN male in NAD Heart: normal S1 and S2; no rub Lungs: clear to auscultation Abdomen: soft, nontender, nondistended, positive bowel sounds Extremities: no cyanosis or clubbing; no edema Skin: warm and dry Objective Data Vital Signs Vital Signs: Vital Signs Temp Pulse Resp BP Pulse Ox O2 Del Method 07/17/22 10:00 98 16 116/51 L 99 07/17/22 10:00 98 07/17/22 08:00 104 H 07/17/22 10:10 Room Air 07/17/22 09:01 107 H 07/17/22 08:00 36.8 C 110 H 17 135/64 99 07/17/22 05:56 92 17 121/72 97 07/17/22 04:00 36.8 C 83 19 121/72 96 07/17/22 04:00 83 07/17/22 04:00 83 16 96 Room Air 07/17/22 01:57 36.3 C L 96 19 144/69 H 100 07/17/22 00:00 36.3 C L 84 14 144/69 H 96 07/17/22 00:00 97 14 96 Room Air 07/17/22 00:00 84 07/16/22 20:00 99 Room Air 07/16/22 21:54 81 14 136/64 96 07/16/22 20:00 36.6 C 98 16 136/64 96 07/16/22 20:00 98 07/16/22 20:00 79 14 96 Room Air 07/16/22 21:06 82 07/16/22 17:11 87 90/56 L 07/16/22 17:00 89 105/61 07/16/22 16:40 87 105/63 07/16/22 16:20 90 86/60 L 07/16/22 16:00 90 87/59 L 07/16/22 15:40 92 94/60 L 07/16/22 15:20 93 91/54 L 07/16/22 17:15 36.6 C 86 16 126/61 07/16/22 19:35 102 H 13 106/62 98 07/16/22 19:33 102 H 20 96 07/16/22 16:45 89 07/16/22 16:30 88 07/16/22 16:16 91 07/16/22 16:04 91 07/16/22 15:45 92 07/16/22 15:30 93 07/16/22 15:29 93 07/16/22 18:21 87 07/16/22 16:00 96 Intake/Output Intake/Output: Intake & Output 07/14/22 07/15/22 07/16/22 07/17/22 23:59 23:59 23:59 23:59 Intake Total 1000 540 720 Output Total 1500 0 Balance 1000 -960 720 Meds/Results Medications: Active Medications Generic Name Dose Route Start Last Admin Trade Name Freq PRN Reason Stop Dose Admin Acetaminophen 650 mg 07/15/22 19:19 07/16/22 13:48 Acetaminophen 325 Mg Tablet PO 650 mg Q4H PRN Administration Mild Pain (1-3) Or Fever Acetaminophen 650 mg 07/17/22 16:30 Acetaminophen 325 Mg Tablet PO 07/21/22 16:31 Q24H MARTHA Albute
[2022-07-17] MEDS: ACETAMINOPHEN 325 MG TABLET 650 MG PO (16:24)
[2022-07-17] MEDS: diphenhydrAMINE HCl CAP 25 MG CAPSULE PO (16:24)
--- NOTE | 2022-07-17 17:11 | PC.NURSE ---
Tolerating IVIG infusion, no s/sx of reaction, infusing slow per pharmacy recs. at beside.
[2022-07-17 20:54] LABS: Glucose Point of Care 267 mg/dl (65-105)
[2022-07-17] MEDS: INSULIN GLARGINE (*BKC) 100 UNITS/ML 6 UNITS SUB-Q (20:55)
[2022-07-18] VITALS (25 sets, daily range): BP systolic 83–159; BP diastolic 25–88; PULSE 91–115; RESP 18–27; TEMP 36–38.1; O2SAT 96–98
[2022-07-18] MEDS: CLINDAMYCIN HCL 150 MG CAP 300 MG PO ×4 (00:13→17:28)
[2022-07-18 04:08] LABS: Basophils Absolute Auto 0.1 K/mm3 (0.0-0.1); Basophils Percent Auto 0.9 % (0.2-1.2); Eosinophils Absolute Auto 0.3 K/mm3 (0-0.3); Eosinophils Percent Auto 2.8 % (0-4.4); Hemoglobin 9.3 g/dL (14.0-18.0); Immature Granulocyte Percent A 1.1 % (0-0.5); Lymphocytes Absolute Auto 1.32 K/mm3 (0.9-3.2); Lymphocytes Percent Auto 14.3 % (18.3-44.2); Mean Corpuscular Hemoglobin 30.1 pg (26-34); Mean Corpuscular Volume 100.3 fl (80-100); Mean Platelet Volume 8.9 fl (7.4-10.4); Monocytes Absolute Auto 0.8 K/mm3 (0.1-0.6); Monocytes Percent Auto 8.5 % (2.6-8.5); Neutrophils Absolute Auto 6.7 K/mm3 (1.3-6.7); Neutrophils Percent Auto 72.4 % (45.5-73.1); Nucleated Red Blood Cells Perc 0.2 % (0.0-0.2); Platelet Count Result 595 k/mm3 (150-375); Red Blood Count 3.09 M/mm3 (4.6-6.20); Red Cell Distribution Width 18.2 % (11.5-14.5); White Blood Count 9.3 K/mm3 (4.5-10.0)
[2022-07-18] MEDS: LORazepam (*CRX) 1 MG TABLET PO ×2 (04:22→16:35)
[2022-07-18 04:28] LABS: Alanine Aminotransferase 7 U/L (6-50); Alkaline Phosphatase 100 U/L (38-126); Anion Gap 12 mmol/L (8-16); Aspartate Amino Transferase 46 U/L (17-59); Bilirubin,Total 0.4 mg/dL (0.2-1.3); Blood Urea Nitrogen 39 mg/dL (9-20); Calcium 8.7 mg/dL (8.4-10.2); Carbon Dioxide 25 mmol/L (22-30); Chloride 99 mmol/L (98-107); Estimated CRCL calculation 8 ml/min; Estimated Glomerular Filt Rate 8; Glucose 284 mg/dL (65-110); Magnesium 2.2 mg/dL (1.6-2.3); Phosphorus 7.4 mg/dL (2.5-4.5); Potassium 5.5 mmol/L (3.4-5.0); Sodium 136 mmol/L (137-145)
[2022-07-18 04:36] LABS: CRP 13.6 mg/dL (<1.0)
[2022-07-18] MEDS: INSULIN ASPART (*BKC) 100 UNITS/ML SUB-Q ×2 (04:53→12:55)
[2022-07-18 08:03] LABS: Glucose Point of Care 339 mg/dl (65-105)
--- NOTE | 2022-07-18 08:51 | WPDINTPN ---
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 -MRI could not be done as patient has a spinal/bone stimulator as seen on the CT scan of the lumbar spine -continue monitoring in the ICU with Q4 hrs NIFs, neurological examination, monitor respiratory status -appreciate neurology following the patient -patient started on IVIG on 07/17/2022, tolerated 1st dose well (2) Cellulitis: Code(s): L03.90 - Cellulitis, unspecified Status: Acute Assessment and Plan: Patient was discharged on 07/14/2022 we he was admitted for cellulitis, currently on clindamycin -will have Wound Care evaluate the patient (3) Anemia: Code(s): D64.9 - Anemia, unspecified Status: Chronic Assessment and Plan: Hemoglobin has been stable, likely anemia of chronic disease secondary to end-stage renal disease (4) Diabetes mellitus: Qualifiers: 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 insulin use: with usp use Diabetes mellitus complication status: with kidney complications Code(s): E11.9 - Type 2 diabetes mellitus without complications Status: Chronic Assessment and Plan: Continue Accu-Cheks and sliding scale insulin along with Lantus (5) CAD (coronary artery disease): Code(s): I25.10 - Atherosclerotic heart disease of [place] coronary artery without angina pectoris Status: Acute Assessment and Plan: Continue Brilinta, carvedilol,aspirin (6) ESRD (end stage renal disease) on dialysis: Code(s): N18.6 - End stage renal disease; Z99.2 - Dependence on renal dialysis Status: Chronic Assessment and Plan: End-stage renal disease on dialysis -hyperkalemia -patient is being dialyzed today -further dialysis per Nephrology Plan DVT prophylaxis: No chemoprophylaxis given anemia and LP done 07/16/2022 Stress ulcer prophylaxis: Protonix Nutrition: Tolerating oral diet Code Status: Full code Critical Care Time Spent: 33 minutes Due to a high probability of clinically significant, life threatening deterioration, the patient required my highest level of preparedness to intervene emergently and I personally spent this critical care time directly and personally managing the patient. This critical care time included obtaining a history; examining the patient; pulse oximetry; ordering and review of studies; arranging urgent treatment with development of a management plan; evaluation of patient's response to treatment; frequent reassessment; and discussions with other providers. It was exclusive of separately billable procedures and treating other patients and teaching time. Please see Assessment and Plan section and the rest of the note for further information on patient assessment and treatment Subjective Date/time seen: 07/18/22 08:51 Interval history: Reason for consult: Bilateral Upper and lower extremity weakness, concerning for Guillain-[place]rost syndrome 07/18/2022: Patient seen and examined the ICU, is awake, alert, oriented, able to answer questions. Patient continues to have weakness in his hands and fingers, otherwise is able to move his shoulders, elbows and wrists joints. Also able to move the hip and knee joint on both extremities. He states he feels much better with his weakness. Hemodynamically stable, being dialyzed as I write this note. Patient is afebrile. Denies any chest pain, shortness on breath, abdominal pain, nausea, vomiting at this time Review of Systems Review of Systems: All systems reviewed & are unremarkable except as noted in HPI and below Exam Narrative: General: Pleasant personality, in no acute distress HEENT:? Pupils equal and r
--- NOTE | 2022-07-18 10:02 | WPDNEUROPN ---
Progress Note: A&P Assessment and Plan (1) Weakness: Code(s): R53.1 - Weakness Status: Acute Assessment and Plan: Ish Corley is a 56 year old male with a history of prior L frontal and L temporal strokes, DM, CAD with stents, prior [place], CHF, ESRD on dialysis, HTN, R BKA and L AKA presenting after recent hospital admission for cellulitis, with new weakness in bilateral hands and lower extremities. Unable to get MRI due to spinal stimulator. CSF studies showed cell count of 4 with elevated protein of 129, consistent with cytoalbuminologic dissociation, which was concerning for Guillain [place] syndrome. Initiated IVIG after discussion of risks and benefits with patients. He is tolerating the IVIG well. There seem to be some discrepancies on his sensory exam for me as well as for other providers which is causing me to the question the diagnosis of GBS, but given the CSF findings, will continue full course of treatment with IVIG as long as he is tolerating it. - OK to transfer to floor since vitals and respiratory status have been stable - Continue Neurochecks and NIFs q4hrs - IVIG dosing - 0.4g/kg per day x 5 days, this will have to be coordinated around his dialysis (today is day 2 of 5) - pretreat IVIG with Tylenol 650mg and Benadryl 25mg, both 30 min before the infusion. Subjective Date/time seen: 07/18/22 10:02 Interval history: Ish Corley is a 56 year old male with a history of DM, CAD with stents, prior [place], CHF, ESRD on dialysis, HTN, R BKA and L AKA presenting after recent hospital admission with weakness in bilateral hands and lower extremities. Patient was recently admitted to [facility] for cellulitis of his right knee stump. He was treated with antibiotics and his cultures showed no growth during the admission. He was discharged on 07/14 and was feeling fine at that time. He came home from the hospital and reportedly took two hits of medical marijuana and fell asleep. The following day on 07/15 patient reports that he was difficult to wake up. When he did finally wake up he noticed that he could not move his torso, hands, or lower extremities. This has been constant since then. He denies any bowel or bladder incontinence. He reports that he does have sensation in his genital and anal area, but reports numbness in bilateral hands and bilateral lower extremities. His strength in his arms (other than his hands) is completely is normal. He denies any vision changes such as blurry or double vision, dysphagia, chest pain, or increased shortness of breath from his baseline. At [facility] he had a CT head which showed prior L frontal and L temporal infarcts (chronic). CTA showed no stenosis of the ICAs but moderate stenosis of vertebral artery origins. He had a carotid doppler of his neck which was negative. He was admitted for further evaluation with MRI. However, patient has a spinal stimulator that was placed 20 years ago so he cannot get an MRI. Lumbar puncture was done which showed elevated protein of 182 and cell count of 4. Concern for Guillan [place]. Obtained CT complete spine to rule out cord compression or other structural lesion. CT cervical spine showed mild cervical spondylosis. The thoracic and lumbar CT showed anterior and posterior fusion procedures from L4-S1. Received first dose of IVIG yesterday which he tolerated well. Vitals have been stable in the ICU and NIFs have been normal as well. Patient reports some improvement in his hand strength. Review of Systems Constitutional: Constitutional: Denies chills and Reports weakness Eyes: Eyes: Reports no additional eye complaints and Denies blurry vision ENT: Reports Normal hearing present and Denies dysphagia Cardiovascular: Cardiovascular: Reports no additional cardiovascular complaints and Reports dyspnea on exertion Respiratory: Respiratory: Reports cough and Reports dyspnea on exertion Gastrointestinal: Gastrointestinal: Reports constipation and Denies dysphagia G
[2022-07-18] MEDS: EPOETIN ALFA-EPBX 10,000 UNITS/ML VIAL 10000 UNITS IV PUSH (10:04)
--- NOTE | 2022-07-18 10:51 | P.PNNP_ITS ---
Progress Note: A&P Assessment and Plan (1) ESRD (end stage renal disease): Code(s): N18.6 - End stage renal disease Status: Chronic Assessment and Plan: * HD underway. * plan HD tomorrow * outpatient treatment is usually M/W/F/Sat * Volume status looks okay. * Electrolytes look fine. Potassium is slightly high at 5.5. He is on a 2 K bath. 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 He is getting IVIG. He will get a dose after dialysis today. (3) Hypertension: Code(s): I10 - Essential (primary) hypertension Status: Chronic Assessment and Plan: * has been quite erratic in the past * Blood pressure doing pretty well right now. (4) Anemia: Code(s): D64.9 - Anemia, unspecified Status: Chronic Assessment and Plan: * due to ESRD and acute illness * Epogen with HD * follow trend of H/H (5) IDDM (insulin dependent diabetes mellitus): Status: Chronic Assessment and Plan: * On Accu-Cheks and insulin sliding scale per fish hatchery manager/hospitalists. Subjective Date/time seen: 07/18/22 10:51 Interval history: Ish is on dialysis. He is tolerating this well. Blood pr jaziel is doing pretty well. He was seen at 10:15 a.m. Exam Narrative: General: WD/WN male in NAD Heart: normal S1 and S2; no rub or gallop Lungs: clear bilaterally Abdomen: soft, nontender, nondistended, positive bowel sounds Extremities: no cyanosis or clubbing; no edema Skin: no rash or subQ nodules Objective Data Vital Signs Vital Signs: Vital Signs - 24 hr 07/17/22 12:00 07/17/22 14:34 07/17/22 12:00 Temperature Pulse Rate 97 78 Respiratory Rate 19 Blood Pressure Pulse Oximetry 97 99 Oxygen Delivery Room Air Room Air 07/17/22 12:00 07/17/22 14:00 07/17/22 14:00 Temperature 36.8 C Pulse Rate 84 83 83 Respiratory Rate 18 16 Blood Pressure 115/36 L Pulse Oximetry 94 94 Oxygen Delivery 07/17/22 16:00 07/17/22 16:00 07/17/22 17:28 Temperature 36.8 C 36.5 C Pulse Rate 84 84 94 Respiratory Rate 16 16 18 Blood Pressure 128/44 L 152/70 H Pulse Oximetry 95 96 96 Oxygen Delivery Room Air 07/17/22 16:00 07/17/22 18:00 07/17/22 18:00 Temperature 36.8 C Pulse Rate 81 98 98 Respiratory Rate 17 Blood Pressure 141/87 H Pulse Oximetry 100 Oxygen Delivery 07/17/22 20:00 07/17/22 20:00 07/17/22 20:00 Temperature 36.7 C Pulse Rate 94 95 94 Respiratory Rate 16 18 Blood Pressure Pulse Oximetry 97 97 Oxygen Delivery Room Air 07/17/22 20:54 07/17/22 22:00 07/17/22 22:00 Temperature Pulse Rate 97 102 H 102 H Respiratory Rate 18 Blood Pressure 145/65 H Pulse Oximetry 97 Oxygen Delivery 07/18/22 00:00 07/18/22 00:00 07/18/22 00:00
--- NOTE | 2022-07-18 10:51 | PM.PNNEP ---
Progress Note: A&P Assessment and Plan (1) ESRD (end stage renal disease): Code(s): N18.6 - End stage renal disease Status: Chronic Assessment and Plan: HD underway. plan HD tomorrow outpatient treatment is usually M/W/F/Sat Volume status looks okay. Electrolytes look fine. Potassium is slightly high at 5.5. He is on a 2 K bath. 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 He is getting IVIG. He will get a dose after dialysis today. (3) Hypertension: Code(s): I10 - Essential (primary) hypertension Status: Chronic Assessment and Plan: has been quite erratic in the past Blood pressure doing pretty well right now. (4) Anemia: Code(s): D64.9 - Anemia, unspecified Status: Chronic Assessment and Plan: due to ESRD and acute illness Epogen with HD follow trend of H/H (5) IDDM (insulin dependent diabetes mellitus): Status: Chronic Assessment and Plan: On Accu-Cheks and insulin sliding scale per public relations/hospitalists. Subjective Date/time seen: 07/18/22 10:51 Interval history: Ish is on dialysis. He is tolerating this well. Blood pr essnicolas is doing pretty well. He was seen at 10:15 a.m. Exam Narrative: General: WD/WN male in NAD Heart: normal S1 and S2; no rub or gallop Lungs: clear bilaterally Abdomen: soft, nontender, nondistended, positive bowel sounds Extremities: no cyanosis or clubbing; no edema Skin: no rash or subQ nodules Objective Data Vital Signs Vital Signs: Vital Signs - 24 hr 07/17/22 12:00 07/17/22 14:34 07/17/22 12:00 Temperature Pulse Rate 97 78 Respiratory Rate 19 Blood Pressure Pulse Oximetry 97 99 Oxygen Delivery Room Air Room Air 07/17/22 12:00 07/17/22 14:00 07/17/22 14:00 Temperature 36.8 C Pulse Rate 84 83 83 Respiratory Rate 18 16 Blood Pressure 115/36 L Pulse Oximetry 94 94 Oxygen Delivery 07/17/22 16:00 07/17/22 16:00 07/17/22 17:28 Temperature 36.8 C 36.5 C Pulse Rate 84 84 94 Respiratory Rate 16 16 18 Blood Pressure 128/44 L 152/70 H Pulse Oximetry 95 96 96 Oxygen Delivery Room Air 07/17/22 16:00 07/17/22 18:00 07/17/22 18:00 Temperature 36.8 C Pulse Rate 81 98 98 Respiratory Rate 17 Blood Pressure 141/87 H Pulse Oximetry 100 Oxygen Delivery 07/17/22 20:00 07/17/22 20:00 07/17/22 20:00 Temperature 36.7 C Pulse Rate 94 95 94 Respiratory Rate 16 18 Blood Pressure Pulse Oximetry 97 97 Oxygen Delivery Room Air 07/17/22 20:54 07/17/22 22:00 07/17/22 22:00 Temperature Pulse Rate 97 102 H 102 H Respiratory Rate 18 Blood Pressure 145/65 H Pulse Oximetry 97 Oxygen Delivery 07/18/22 00:00 07/18/22 00:00 07/18/22 00:00 Temperature 36.9 C Pulse Rate 104 H 104 H 104 H Respiratory Rate 20 20 Blood Pressure 145/67 H Pulse Oximetry 97 97 Oxygen Delivery Room Air 07/18/22 02:00 07/18/22 02:00 07/18/22 04:00 Temperature 37.0 C Pulse Rate 98 98 105 H Respiratory Rate 18 20 Blood Pressure 151/73 H 159/51 H Pulse Oximetry 96 97 Oxygen Delivery 07/18/22 04:00 07/18/22 04:00 07/18/22 06:00 Temperature Pulse Rate 105 H 105 H 96 Respiratory Rate 20 18 Blood Pressure 134/49 L Pulse Oximetry 97 98 Oxygen Delivery Room Air 07/18/22 06:00 07/18/22 06:39 07/18/22 08:05 Temperature 37.2 C Pulse Rate 96 100 Respiratory Rate 22 H Blood Pressure 124/54 L Pulse Oximetry 98 Oxygen Delivery Room Air 07/18/22 08:15 07/18/22 08:30 07/18/22 09:00 Temperature Pulse Rate 101 H 101 H 102 H Respiratory Rate Blood Pressure 127/41 L 105/27 L 110/37 L Pulse Oximetry Oxygen Delivery 07/18/22 09:30 07/18/22 10:00 07/18/22 08:00 [facility]
--- NOTE | 2022-07-18 11:29 | PM.IMPN ---
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 IVIG has been started. Tolerating okay. (2) Cellulitis: Code(s): L03.90 - Cellulitis, unspecified Status: Acute Assessment and Plan: . 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 termite control technician use Diabetes mellitus complication status: with kidney complications Code(s): E11.9 - Type 2 diabetes mellitus without complications Status: Chronic Assessment and Plan: Continue Accu-Cheks and sliding scale insulin along with Lantus (5) CAD (coronary artery disease): Code(s): I25.10 - Atherosclerotic heart disease of [place] coronary artery without angina pectoris Status: Acute Assessment and Plan: Continue Brilinta, carvedilol,aspirin (6) ESRD (end stage renal disease) on dialysis: Code(s): N18.6 - End stage renal disease; Z99.2 - Dependence on renal dialysis Status: Chronic Assessment and Plan: End-stage renal disease on dialysis -hyperkalemia -patient is being dialyzed today -further dialysis per Nephrology Subjective Date/time seen: 07/18/22 11:29 No new complaints Exam Narrative: General: Pleasant personality, in no acute distress HEENT:? Pupils equal and reactive sclera is clear, moist oral mucosa Neck:? Supple, no lymphadenopathy Respiratory:? Clear to auscultation bilaterally, no wheezing, adequate air entry Cardiac:? S1-S2 normal, regular rate and rhythm Abdomen:? Soft, nontender, nondistended, normoactive bowel sounds Extremities:? Right BKA, stump purple discoloration, wound covered with Mepilex. Left AKA, stump has a Mepilex too Neuro:? Patient is awake, oriented x3. 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 Moves lower extremities at hip and knee joint. Patient is inconsistent with his neurological examination Skin:? Multiple maculopapular lesions on his arms, legs, torso Psych:? Normal affect and mentation Objective Data Vital Signs Vital Signs: Vital Signs - 24 hr 07/17/22 12:00 07/17/22 14:34 07/17/22 12:00 Temperature Pulse Rate 97 78 Respiratory Rate 19 Blood Pressure Pulse Oximetry 97 99 Oxygen Delivery Room Air Room Air 07/17/22 12:00 07/17/22 14:00 07/17/22 14:00 Temperature 98.2 F Pulse Rate 84 83 83 Respiratory Rate 18 16 Blood Pressure 115/36 L Pulse Oximetry 94 94 Oxygen Delivery 07/17/22 16:00 07/17/22 16:00 07/17/22 17:28 Temperature 98.3 F 97.7 F Pulse Rate 84 84 94 Respiratory Rate 16 16 18 Blood Pressure 128/44 L 152/70 H Pulse Oximetry 95 96 96 Oxygen Delivery Room Air 07/17/22 16:00 07/17/22 18:00 07/17/22 18:00 Temperature 98.2 F Pulse Rate 81 98 98 Respiratory Rate 17 Blood Pressure 141/87 H Pulse Oximetry 100 Oxygen Delivery 07/17/22 20:00 07/17/22 20:00 07/17/22 20:00 Temperature 98.1 F Pulse Rate 94 95 94 Respiratory Rate 16 18 Blood Pressure Pulse Oximetry 97 97 Oxygen Delivery Room Air 07/17/22 20:54 07/17/22 22:00 07/17/22 22:00 Temperature Pulse Rate 97 102 H 102 H Respiratory Rate 18 Blood Pressure 145/65 H Pulse Oximetry 97 Oxygen Delivery 07/18/22 00:00 07/18/22 00:00 07/18/22 00:00 Temperature 98.5 F Pulse Rate 104 H 104 H 104 H Respiratory Rate 20 20 Blood Pressure 145/67 H Pulse Oximetry 97 97 Oxygen Delivery Room Air 07/18/22 02:00 07/18/22 02:00 07/18/22 04:00 Temperature 98.6 F Pulse Rate 98 98 105 H Respiratory Rate 18 20 Blood Pressure 151/73 H 159/51 H Pulse Oximetry 96 97 Oxygen Delivery 07/18/22 04:00 07/18/22 04:00 07/18/22 06:00 Temperature Pulse
[2022-07-18 12:36] LABS: Glucose Point of Care 262 mg/dl (65-105)
[2022-07-18] MEDS: VITAMIN B CMPLX/VIT C/FOLIC AC 1 CAPSULE 1 CAP PO (13:58)
[2022-07-18] MEDS: ATORVASTATIN 40 MG TABLET 80 MG PO (13:58)
[2022-07-18] MEDS: GABAPENTIN 300 MG CAPSULE PO (13:58)
[2022-07-18] MEDS: NICOTINE (*PBKC) 21 MG PATCH 1 PATCH TRANSDERM (13:58)
[2022-07-18] MEDS: CYANOCOBALAMIN 1,000 MCG TABLET 1000 MCG PO (13:58)
[2022-07-18] MEDS: PANTOPRAZOLE 40 MG TABLET PO (13:59)
[2022-07-18] MEDS: ASPIRIN 81 MG ENTERIC TABLET PO (13:59)
[2022-07-18] MEDS: SERTRALINE HCL 50 MG TABLET 100 MG PO (13:59)
[2022-07-18] MEDS: rOPINIRole HCL 0.25 MG TABLET PO (13:59)
[2022-07-18] MEDS: carvediloL 3.125 MG TABLET PO ×2 (14:02→21:51)
[2022-07-18] MEDS: TICAGRELOR 60 MG TABLET PO ×2 (14:03→17:28)
[2022-07-18] MEDS: SILVERGEL (ELTA) 45 ML 1 APPLIC TOPICAL (14:03)
[2022-07-18] MEDS: diphenhydrAMINE HCl CAP 25 MG CAPSULE PO (16:35)
[2022-07-18] MEDS: CHOLECALCIFEROL 1,000 UNITS TABLET 1000 UNITS PO (16:35)
[2022-07-18] MEDS: ACETAMINOPHEN 325 MG TABLET 650 MG PO (16:35)
[2022-07-18 17:32] LABS: Glucose Point of Care 497 mg/dl (65-105)
[2022-07-18] MEDS: INSULIN ASPART (*BKC) 100 UNITS/ML 12 UNITS SUB-Q (17:55)
[2022-07-18 21:26] LABS: Glucose Point of Care > 500 mg/dl (65-105)
[2022-07-18] MEDS: INSULIN GLARGINE (*BKC) 100 UNITS/ML 6 UNITS SUB-Q (21:52)
[2022-07-18] MEDS: INSULIN GLARGINE (*BKC) 100 UNITS/ML SUB-Q (21:52)
[2022-07-18] MEDS: INSULIN ASPART (*BKC) 100 UNITS/ML 18 UNITS SUB-Q (21:52)
[2022-07-18 21:53] LABS: Anion Gap 8 mmol/L (8-16); Blood Urea Nitrogen 23 mg/dL (9-20); Calcium 8.4 mg/dL (8.4-10.2); Carbon Dioxide 27 mmol/L (22-30); Chloride 96 mmol/L (98-107); Estimated CRCL calculation 13 ml/min; Estimated Glomerular Filt Rate 16; Glucose 612 mg/dL (65-110); Potassium 4.9 mmol/L (3.4-5.0); Sodium 131 mmol/L (137-145)
[2022-07-18 21:57] LABS: Beta-Hydroxybutyrate/Acetoacetate 0.12 mmol/L (0.02-0.27)
[2022-07-19] VITALS (20 sets, daily range): BP systolic 116–167; BP diastolic 48–74; PULSE 86–105; RESP 14–22; TEMP 36.9–38.8; O2SAT 96–99; BMI 16.7
[2022-07-19 00:21] LABS: Glucose Point of Care 482 mg/dl (65-105)
[2022-07-19] MEDS: INSULIN ASPART (*BKC) 100 UNITS/ML 10 UNITS SUB-Q (00:25)
[2022-07-19] MEDS: CLINDAMYCIN HCL 150 MG CAP 300 MG PO ×5 (00:29→23:29)
[2022-07-19] MEDS: LORazepam (*CRX) 1 MG TABLET PO ×3 (05:06→19:48)
[2022-07-19 05:15] LABS: Albumin Level 2.8 g/dL (3.5-5.1); Anion Gap 13 mmol/L (8-16); Blood Urea Nitrogen 27 mg/dL (9-20); Calcium 8.3 mg/dL (8.4-10.2); Carbon Dioxide 29 mmol/L (22-30); Chloride 95 mmol/L (98-107); Estimated CRCL calculation 11 ml/min; Estimated Glomerular Filt Rate 13; Glucose 200 mg/dL (65-110); Phosphorus 5.1 mg/dL (2.5-4.5); Potassium 4.7 mmol/L (3.4-5.0); Sodium 137 mmol/L (137-145)
[2022-07-19 07:54] LABS: Glucose Point of Care 337 mg/dl (65-105)
[2022-07-19] MEDS: INSULIN ASPART (*BKC) 100 UNITS/ML SUB-Q ×3 (07:59→16:31)
[2022-07-19] MEDS: INSULIN GLARGINE (*BKC) 100 UNITS/ML SUB-Q ×2 (08:08→20:38)
[2022-07-19] MEDS: VITAMIN B CMPLX/VIT C/FOLIC AC 1 CAPSULE 1 CAP PO (08:10)
[2022-07-19] MEDS: SERTRALINE HCL 50 MG TABLET 100 MG PO (08:11)
[2022-07-19] MEDS: TICAGRELOR 60 MG TABLET PO ×2 (08:11→16:29)
[2022-07-19] MEDS: PANTOPRAZOLE 40 MG TABLET PO (08:11)
[2022-07-19] MEDS: SILVERGEL (ELTA) 45 ML 1 APPLIC TOPICAL (08:11)
[2022-07-19] MEDS: GABAPENTIN 300 MG CAPSULE PO (08:11)
[2022-07-19] MEDS: NICOTINE (*PBKC) 21 MG PATCH 1 PATCH TRANSDERM (08:11)
[2022-07-19] MEDS: ASPIRIN 81 MG ENTERIC TABLET PO (08:12)
[2022-07-19] MEDS: ATORVASTATIN 40 MG TABLET 80 MG PO (08:12)
[2022-07-19] MEDS: CYANOCOBALAMIN 1,000 MCG TABLET 1000 MCG PO (08:12)
[2022-07-19] MEDS: carvediloL 3.125 MG TABLET PO ×2 (08:12→20:13)
[2022-07-19] MEDS: CHOLECALCIFEROL 1,000 UNITS TABLET 1000 UNITS PO (09:51)
--- NOTE | 2022-07-19 09:59 | WPDNEUROPN ---
Progress Note: A&P Assessment and Plan (1) Weakness: Code(s): R53.1 - Weakness Status: Acute Assessment and Plan: Ish Corley is a 56 year old male with a history of prior L frontal and L temporal strokes, DM, CAD with stents, prior DC, CHF, ESRD on dialysis, HTN, R BKA and L AKA presenting after recent hospital admission for cellulitis, with new weakness in bilateral hands and lower extremities. Unable to get MRI due to spinal stimulator. 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 Initiated IVIG after discussion of risks and benefits with patients. He is tolerating the IVIG well. There seem to be some discrepancies on his sensory exam for me as well as for other providers which is causing me to the question the diagnosis of GBS, but given the CSF findings, will continue full course of treatment with IVIG as long as he is tolerating it. - OK to transfer to floor since vitals and respiratory status have been stable - Continue Neurochecks and NIFs q4hrs - IVIG dosing - 0.4g/kg per day x 5 days, this will have to be coordinated around his dialysis (today is day 3 of 5) - pretreat IVIG with Tylenol 650mg and Benadryl 25mg, both 30 min before the infusion. Subjective Date/time seen: 07/19/22 09:59 Interval history: Admission summary Ish Corley is a 56 year old male with a history of DM, CAD with stents, prior DC, CHF, ESRD on dialysis, HTN, R BKA and L AKA presenting after recent hospital admission with weakness in bilateral hands and lower extremities. Patient was recently admitted to [facility] for cellulitis of his right knee stump. He was treated with antibiotics and his cultures showed no growth during the admission. He was discharged on 07/14 and was feeling fine at that time. He came home from the hospital and reportedly took two hits of medical marijuana and fell asleep. The following day on 07/15 patient reports that he was difficult to wake up. When he did finally wake up he noticed that he could not move his torso, hands, or lower extremities. This has been constant since then. He denies any bowel or bladder incontinence. He reports that he does have sensation in his genital and anal area, but reports numbness in bilateral hands and bilateral lower extremities. His strength in his arms (other than his hands) is completely is normal. He denies any vision changes such as blurry or double vision, dysphagia, chest pain, or increased shortness of breath from his baseline. At [facility] he had a CT head which showed prior L frontal and L temporal infarcts (chronic). CTA showed no stenosis of the ICAs but moderate stenosis of vertebral artery origins. He had a carotid doppler of his neck which was negative. He was admitted for further evaluation with MRI. However, patient has a spinal stimulator that was placed 20 years ago so he cannot get an MRI. Lumbar puncture was done which showed elevated protein of 182 and cell count of 4. Concern for Guillan [place]. Obtained CT complete spine to rule out cord compression or other structural lesion. CT cervical spine showed mild cervical spondylosis. The thoracic and lumbar CT showed anterior and posterior fusion procedures from L4-S1. He received his first dose of IVIG on 07/17. Interval history Received second dose of IVIG yesterday. Patient emphatically reports that he feels much better today. He still has weakness in his hands, but he feels that strength in his lower extremities is improving. He received dialysis today. Review of Systems Constitutional: Constitutional: Denies chills and Reports weakness Eyes: Eyes: Reports no additional eye complaints and Denies blurry vision ENT: Reports Normal hearing present and Denies dysphagia Cardiovascular: Cardiovascular: Reports no additional cardiovascular complaints and Reports dyspnea on exertion Respiratory: Respiratory: Report
--- NOTE | 2022-07-19 10:27 | PM.PNNEP ---
Progress Note: A&P Assessment and Plan (1) ESRD (end stage renal disease): Code(s): N18.6 - End stage renal disease Status: Chronic Assessment and Plan: HD tomorrow outpatient treatment is usually M/W/F/Sat Volume status looks okay. Electrolytes look fine today. Check a potassium tomorrow. 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 He is getting IVIG. He will get his 3rd dose today. (3) Hypertension: Code(s): I10 - Essential (primary) hypertension Status: Chronic Assessment and Plan: has been quite erratic in the past Blood pressure doing pretty well right now. (4) Anemia: Code(s): D64.9 - Anemia, unspecified Status: Chronic Assessment and Plan: due to ESRD and acute illness Epogen with HD Check a CBC in the morning. (5) IDDM (insulin dependent diabetes mellitus): Status: Chronic Assessment and Plan: On Accu-Cheks and insulin sliding scale per mortgage loan closer/hospitalists. Subjective Date/time seen: 07/19/22 10:27 Interval history: Ish is lying in the ICU bed. His spirits are a little more down today. He is frustrated because he is still weak. Exam Narrative: General: WD/WN male in NAD Heart: normal S1 and S2; no rub Lungs: clear bilaterally Abdomen: soft, nontender, nondistended, positive bowel sounds Extremities: no cyanosis or clubbing; no edema . Bilateral lower extremity amputations Skin: no rash Objective Data Vital Signs Vital Signs: Vital Signs - 24 hr 07/18/22 10:30 07/18/22 11:55 07/18/22 11:00 Temperature 37.1 C Pulse Rate 97 93 97 Respiratory Rate 20 Blood Pressure 97/25 L 112/39 L 83/63 L Pulse Oximetry Oxygen Delivery 07/18/22 11:30 07/18/22 11:45 07/18/22 14:02 Temperature Pulse Rate 97 94 113 H Respiratory Rate Blood Pressure 105/45 L 99/34 L Pulse Oximetry Oxygen Delivery 07/18/22 12:00 07/18/22 12:00 07/18/22 14:00 Temperature Pulse Rate 94 93 115 H Respiratory Rate 19 Blood Pressure 112/25 L Pulse Oximetry 98 Oxygen Delivery 07/18/22 14:00 07/18/22 12:00 07/18/22 16:00 Temperature Pulse Rate 112 H 102 H Respiratory Rate 19 Blood Pressure 125/42 L Pulse Oximetry Oxygen Delivery Room Air 07/18/22 16:00 07/18/22 16:00 07/18/22 18:00 Temperature 38.1 C H Pulse Rate 106 H 115 H Respiratory Rate 27 H Blood Pressure 136/45 L Pulse Oximetry Oxygen Delivery Room Air 07/18/22 20:00 07/18/22 20:00 07/18/22 20:00 Temperature 36.9 C Pulse Rate 95 95 91 Respiratory Rate 20 20 Blood Pressure 153/50 H Pulse Oximetry 97 Oxygen Delivery Room Air 07/18/22 21:51 07/18/22 22:00 07/19/22 00:00 Temperature 37.0 C Pulse Rate 91 91 86 Respiratory Rate 20 Blood Pressure 127/68 Pulse Oximetry Oxygen Delivery 07/19/22 00:00 07/19/22 00:00 07/19/22 02:00 Temperature Pulse Rate 86 86 90 Respiratory Rate 20 Blood Pressure Pulse Oximetry 99 Oxygen Delivery Room Air 07/19/22 04:00 07/19/22 04:00 07/19/22 04:00 Temperature 36.9 C Pulse Rate 89 89 89 Respiratory Rate 20 20 Blood Pressure 116/48 L Pulse Oximetry 99 Oxygen Delivery Room Air 07/19/22 06:00 07/19/22 07:55 07/19/22 08:12 Temperature 38.1 C H Pulse Rate 94 97 97 Respiratory Rate 16 Blood Pressure 167/60 H Pulse Oximetry 98 Oxygen Delivery 07/19/22 08:00 07/19/22 08:00 07/19/22 10:00 Temperature Pulse Rate 97 95 96 Respiratory Rate 16 Blood Pressure Pulse Oximetry 98 Oxygen Delivery Room Air Intake/Output Intake/Output: Intake & Output 07/16/22 07/17/22 07/18/22 07/19/22 23:59 23:59 23:59 23:59 Intake Total 540 1160 1320 480 Output Total
[2022-07-19 12:08] LABS: Glucose Point of Care 372 mg/dl (65-105)
--- NOTE | 2022-07-19 15:29 | PM.IMPN ---
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 IVIG has been started. Tolerating okay. 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 seen by Neurologist patient was started on IVIG, is tolerating IVIG, states feeling little better compared to when he arrived, will continue to monitor and have PT OT evaluate the patient, patient with a end-stage renal disease on hemodialysis seen by Nephrology and will have scheduled dialysis, continue to monitor. (2) Cellulitis: Code(s): L03.90 - Cellulitis, unspecified Status: Acute Assessment and Plan: . 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 use Code(s): E11.9 - Type 2 diabetes mellitus without complications Status: Chronic Assessment and Plan: Continue Accu-Cheks and sliding scale insulin along with Lantus (5) CAD (coronary artery disease): Code(s): I25.10 - Atherosclerotic heart disease of [place] coronary artery without angina pectoris Status: Acute Assessment and Plan: Continue Brilinta, carvedilol,aspirin (6) ESRD (end stage renal disease) on dialysis: Code(s): N18.6 - End stage renal disease; Z99.2 - Dependence on renal dialysis Status: Chronic Assessment and Plan: End-stage renal disease on dialysis -hyperkalemia -patient is being dialyzed today -further dialysis per Nephrology Subjective Date/time seen: 07/19/22 15:29 07/19/2022 interval history: patient is a 56-year-old male with history of end-stage renal disease on hemodialysis, prior history of left frontal and left temporal stroke, diabetes, coronary artery disease status post LA and stent, and also has right BKA and left AKA presented with generalized weakness, upper and lower extremity week unable to get MRI due to spinal stimulator, 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 seen by Neurologist patient was started on IVIG, is tolerating IVIG, states feeling little better compared to when he arrived, will continue to monitor and have PT OT evaluate the patient, patient with a end-stage renal disease on hemodialysis seen by Nephrology and will have scheduled dialysis, continue to monitor. Review of Systems Review of Systems: All systems reviewed & are unremarkable except as noted in HPI and below Exam Narrative: appears chronically ill Patient is comfortable, NAD HEENT: eyes are clear and none icteric LUNGS: normal respiratory effort ABD: not distended Lower extremities: no edema MS: right BKA, left AKA SKIN: nonjaundiced Neuro: grossly intact. Objective Data Vital Signs Vital Signs: Vital Signs - 24 hr 07/18/22 16:00 07/18/22 16:00 07/18/22 16:00 Temperature 100.6 F H Pulse Rate 102 H 106 H Respiratory Rate 27 H Blood Pressure 136/45 L Pulse Oximetry Oxygen Delivery Room Air 07/18/22 18:00 07/18/22 20:00 07/18/22 20:00 Temperature Pulse Rate 115 H 95 95 Respiratory Rate 20 Blood Pressure Pulse Oximetry 97 Oxygen Delivery Room Air 07/18/22 20:00 07/18/22 21:51 07/18/22 22:00 Temperature 98.4 F Pulse Rate 91 91 91 Respiratory Rate 20 Blood Pressure 153/50 H Pulse Oximetry Oxygen Delivery 07/19/22 00:0
[2022-07-19 16:27] LABS: Glucose Point of Care 370 mg/dl (65-105)
[2022-07-19] MEDS: diphenhydrAMINE HCl CAP 25 MG CAPSULE PO (16:29)
[2022-07-19] MEDS: ACETAMINOPHEN 325 MG TABLET 650 MG PO (16:29)
[2022-07-19 18:59] LABS: Glucose Point of Care 419 mg/dl (65-105)
[2022-07-19 19:54] LABS: Glucose Point of Care > 500 mg/dl (65-105)
[2022-07-19] MEDS: INSULIN ASPART (*BKC) 100 UNITS/ML 6 UNITS SUB-Q (20:38)
[2022-07-19] MEDS: INSULIN GLARGINE (*BKC) 100 UNITS/ML 6 UNITS SUB-Q (20:38)
[2022-07-19 23:34] LABS: Glucose Point of Care 459 mg/dl (65-105)
[2022-07-20] VITALS (33 sets, daily range): BP systolic 89–161; BP diastolic 29–71; PULSE 73–99; RESP 14–25; TEMP 36–38; O2SAT 92–98
[2022-07-20 01:11] LABS: Glucose Point of Care 410 mg/dl (65-105)
[2022-07-20] MEDS: INSULIN ASPART (*BKC) 100 UNITS/ML 10 UNITS SUB-Q (01:47)
[2022-07-20 02:53] LABS: Glucose Point of Care 399 mg/dl (65-105)
[2022-07-20 04:35] LABS: Hematocrit 26.8 % (42.0-52.0); Hemoglobin 8.3 g/dL (14.0-18.0); Mean Corpuscular Hemoglobin 30.5 pg (26-34); Mean Corpuscular Volume 98.5 fl (80-100); Mean Platelet Volume 9.4 fl (7.4-10.4); Platelet Count Result 512 k/mm3 (150-375); Red Blood Count 2.72 M/mm3 (4.6-6.20); Red Cell Distribution Width 17.8 % (11.5-14.5); White Blood Count 11.2 K/mm3 (4.5-10.0)
[2022-07-20 04:54] LABS: Albumin Level 2.7 g/dL (3.5-5.1); Anion Gap 12 mmol/L (8-16); Blood Urea Nitrogen 48 mg/dL (9-20); Calcium 8.7 mg/dL (8.4-10.2); Carbon Dioxide 25 mmol/L (22-30); Chloride 96 mmol/L (98-107); Estimated CRCL calculation 8 ml/min; Estimated Glomerular Filt Rate 9; Glucose 284 mg/dL (65-110); Sodium 133 mmol/L (137-145)
[2022-07-20 07:24] LABS: Glucose Point of Care 253 mg/dl (65-105)
[2022-07-20] MEDS: LORazepam (*CRX) 1 MG TABLET PO ×2 (07:40→20:29)
[2022-07-20] MEDS: CLINDAMYCIN HCL 150 MG CAP 300 MG PO ×4 (07:40→23:05)
[2022-07-20] MEDS: INSULIN GLARGINE (*BKC) 100 UNITS/ML 6 UNITS SUB-Q (07:43)
[2022-07-20] MEDS: INSULIN ASPART (*BKC) 100 UNITS/ML SUB-Q ×3 (07:44→22:19)
--- NOTE | 2022-07-20 10:00 | WPDNEUROPN ---
Progress Note: A&P Assessment and Plan (1) Weakness: Code(s): R53.1 - Weakness Status: Acute Assessment and Plan: Ish Corley is a 56 year old male with a history of prior L frontal and L temporal strokes, DM, CAD with stents, prior [place], CHF, ESRD on dialysis, HTN, R BKA and L AKA presenting after recent hospital admission for cellulitis, with new weakness in bilateral hands and lower extremities. Unable to get MRI due to spinal stimulator. 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 Initiated IVIG after discussion of risks and benefits with patients. He is tolerating the IVIG well. There seem to be some discrepancies on his sensory exam for me as well as for other providers which is causing me to the question the diagnosis of GBS, but given the CSF findings, will continue full course of treatment with IVIG as long as he is tolerating it. - OK to transfer to floor since vitals and respiratory status have been stable - Continue Neurochecks and NIFs q4hrs - IVIG dosing - 0.4g/kg per day x 5 days, this will have to be coordinated around his dialysis (today is day 4 of 5) - pretreat IVIG with Tylenol 650mg and Benadryl 25mg, both 30 min before the infusion. Subjective Date/time seen: 07/20/22 10:00 Interval history: Ish Corley is a 56 year old male with a history of DM, CAD with stents, prior [place], CHF, ESRD on dialysis, HTN, R BKA and L AKA presenting after recent hospital admission with weakness in bilateral hands and lower extremities. Patient was recently admitted to [facility] for cellulitis of his right knee stump. He was treated with antibiotics and his cultures showed no growth during the admission. He was discharged on 07/14 and was feeling fine at that time. He came home from the hospital and reportedly took two hits of medical marijuana and fell asleep. The following day on 07/15 patient reports that he was difficult to wake up. When he did finally wake up he noticed that he could not move his torso, hands, or lower extremities. This has been constant since then. He denies any bowel or bladder incontinence. He reports that he does have sensation in his genital and anal area, but reports numbness in bilateral hands and bilateral lower extremities. His strength in his arms (other than his hands) is completely is normal. He denies any vision changes such as blurry or double vision, dysphagia, chest pain, or increased shortness of breath from his baseline. At [facility] he had a CT head which showed prior L frontal and L temporal infarcts (chronic). CTA showed no stenosis of the ICAs but moderate stenosis of vertebral artery origins. He had a carotid doppler of his neck which was negative. He was admitted for further evaluation with MRI. However, patient has a spinal stimulator that was placed 20 years ago so he cannot get an MRI. Lumbar puncture was done which showed elevated protein of 182 and cell count of 4. Concern for Guillan K[place]. Obtained CT complete spine to rule out cord compression or other structural lesion. CT cervical spine showed mild cervical spondylosis. The thoracic and lumbar CT showed anterior and posterior fusion procedures from L4-S1. He received his first dose of IVIG on 07/17. Interval history Received dialysis this morning. Receiving 4th dose of IVIG today. Review of Systems Constitutional: Constitutional: Denies chills and Reports weakness Eyes: Eyes: Reports no additional eye complaints and Denies blurry vision ENT: Reports Normal hearing present and Denies dysphagia Cardiovascular: Cardiovascular: Reports no additional cardiovascular complaints and Reports dyspnea on exertion Respiratory: Respiratory: Reports cough and Reports dyspnea on exertion Gastrointestinal: Gastrointestinal: Reports constipation and Denies dysphagia Genitourinary: Genitourinary: Reports as per HPI Musculoskel
--- NOTE | 2022-07-20 10:56 | P.PNNP_ITS ---
Progress Note: A&P Assessment and Plan (1) ESRD (end stage renal disease): Code(s): N18.6 - End stage renal disease Status: Chronic Assessment and Plan: * HD in a few minutes * outpatient treatment is usually M/W/F/Sat * Volume status looks okay. * potassium is 5.0. 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 He is getting IVIG. He will get his 4th dose today. (3) Hypertension: Code(s): I10 - Essential (primary) hypertension Status: Chronic Assessment and Plan: * has been quite erratic in the past * Systolic running between 130 and 170. * He is on carvedilol. (4) Anemia: Code(s): D64.9 - Anemia, unspecified Status: Chronic Assessment and Plan: * due to ESRD and acute illness * Epogen with HD * Check a CBC in the morning. (5) IDDM (insulin dependent diabetes mellitus): Status: Chronic Assessment and Plan: * On Accu-Cheks and insulin sliding scale per lifter driver/hospitalists. Subjective Date/time seen: 07/20/22 08:00 Interval history: Ish is about to begin dialysis. No shortness of breath or chest pain. His weakness is still substantial but may be a little better. Exam Narrative: General: WD/WN male in NAD Heart: normal S1 and S2; no rub Lungs: clear bilaterally Abdomen: soft, nontender, nondistended, positive bowel sounds Extremities: no cyanosis or clubbing; no edema . Bilateral lower extremity amputations Skin: no rash Or subcu nodules Objective Data Vital Signs Vital Signs: Vital Signs - 24 hr 07/19/22 11:10 07/19/22 11:16 07/19/22 12:00 Temperature 37.5 C Pulse Rate 98 95 Respiratory Rate 18 22 H Blood Pressure 133/48 L 140/74 Pulse Oximetry 98 98 Oxygen Delivery Room Air 07/19/22 12:00 07/19/22 14:00 07/19/22 16:00 Temperature Pulse Rate 96 99 105 H Respiratory Rate Blood Pressure Pulse Oximetry Oxygen Delivery 07/19/22 16:00 07/19/22 16:00 07/19/22 17:47 Temperature 38.8 C H Pulse Rate 100 104 H 103 H Respiratory Rate 20 22 H Blood Pressure 126/58 L Pulse Oximetry 99 99 Oxygen Delivery Room Air 07/19/22 18:30 07/19/22 19:45 07/19/22 20:13 Temperature 37.9 C H 37.1 C Pulse Rate 96 95 Respiratory Rate 14 Blood Pressure 167/67 H Pulse Oximetry 97 Oxygen Delivery 07/19/22 20:00 07/19/22 20:00 07/19/22 22:00 Temperature Pulse Rate 97 93 Respiratory Rate Blood Pressure Pulse Oximetry 96 Oxygen Delivery Room Air 07/20/22 00:00 07/20/22 00:00 07/20/22 00:00 Temperature 37.3 C Pulse Rate 97 97 Respiratory Rate 20 Blood Pressure 161/50 H Pulse Oximetry 97 97 Oxygen Delivery Room Air 07/20/22 02:00 07/20/22 04:00 07/20/22 04:00
--- NOTE | 2022-07-20 10:56 | PM.PNNEP ---
Progress Note: A&P Assessment and Plan (1) ESRD (end stage renal disease): Code(s): N18.6 - End stage renal disease Status: Chronic Assessment and Plan: HD in a few minutes outpatient treatment is usually M/W/F/Sat Volume status looks okay. potassium is 5.0. 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 He is getting IVIG. He will get his 4th dose today. (3) Hypertension: Code(s): I10 - Essential (primary) hypertension Status: Chronic Assessment and Plan: has been quite erratic in the past Systolic running between 130 and 170. He is on carvedilol. (4) Anemia: Code(s): D64.9 - Anemia, unspecified Status: Chronic Assessment and Plan: due to ESRD and acute illness Epogen with HD Check a CBC in the morning. (5) IDDM (insulin dependent diabetes mellitus): Status: Chronic Assessment and Plan: On Accu-Cheks and insulin sliding scale per ballistics professor/hospitalists. Subjective Date/time seen: 07/20/22 08:00 Interval history: Ish is about to begin dialysis. No shortness of breath or chest pain. His weakness is still substantial but may be a little better. Exam Narrative: General: WD/WN male in NAD Heart: normal S1 and S2; no rub Lungs: clear bilaterally Abdomen: soft, nontender, nondistended, positive bowel sounds Extremities: no cyanosis or clubbing; no edema . Bilateral lower extremity amputations Skin: no rash Or subcu nodules Objective Data Vital Signs Vital Signs: Vital Signs - 24 hr 07/19/22 11:10 07/19/22 11:16 07/19/22 12:00 Temperature 37.5 C Pulse Rate 98 95 Respiratory Rate 18 22 H Blood Pressure 133/48 L 140/74 Pulse Oximetry 98 98 Oxygen Delivery Room Air 07/19/22 12:00 07/19/22 14:00 07/19/22 16:00 Temperature Pulse Rate 96 99 105 H Respiratory Rate Blood Pressure Pulse Oximetry Oxygen Delivery 07/19/22 16:00 07/19/22 16:00 07/19/22 17:47 Temperature 38.8 C H Pulse Rate 100 104 H 103 H Respiratory Rate 20 22 H Blood Pressure 126/58 L Pulse Oximetry 99 99 Oxygen Delivery Room Air 07/19/22 18:30 07/19/22 19:45 07/19/22 20:13 Temperature 37.9 C H 37.1 C Pulse Rate 96 95 Respiratory Rate 14 Blood Pressure 167/67 H Pulse Oximetry 97 Oxygen Delivery 07/19/22 20:00 07/19/22 20:00 07/19/22 22:00 Temperature Pulse Rate 97 93 Respiratory Rate Blood Pressure Pulse Oximetry 96 Oxygen Delivery Room Air 07/20/22 00:00 07/20/22 00:00 07/20/22 00:00 Temperature 37.3 C Pulse Rate 97 97 Respiratory Rate 20 Blood Pressure 161/50 H Pulse Oximetry 97 97 Oxygen Delivery Room Air 07/20/22 02:00 07/20/22 04:00 07/20/22 04:00 Temperature 36.6 C Pulse Rate 94 94 Respiratory Rate 24 H Blood Pressure 136/45 L Pulse Oximetry 97 97 Oxygen Delivery Room Air 07/20/22 04:00 07/19/22 23:22 07/20/22 06:00 Temperature Pulse Rate 93 94 Respiratory Rate Blood Pressure Pulse Oximetry 97 Oxygen Delivery Room Air 07/20/22 07:25 07/20/22 08:00 07/20/22 08:00 Temperature 37.2 C Pulse Rate 96 96 93 Respiratory Rate 22 H 20 Blood Pressure 143/58 H Pulse Oximetry 97 98 Oxygen Delivery Room Air 07/20/22 10:00 07/20/22 08:20 07/20/22 08:10 Temperature 36.6 C Pulse Rate 77 93 93 Respiratory Rate 15 Blood Pressure 141/31 H 133/69 Pulse Oximetry Oxygen Delivery 07/20/22 08:40 07/20/22 09:00 Temperature Pulse Rate 98 89 Respiratory Rate Blood Pressure 112/29 L 89/30 L Pulse Oximetry Oxygen Delivery Intake/Output Intake/Output: Intake & Output 07/17/22 07/18/22 07/19/22 07/20/22 23:59 23:59 23:59 23:59 Intake Total 1160 1517.2 144
--- NOTE | 2022-07-20 12:39 | PM.IMPN ---
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 IVIG has been started. Tolerating okay. (2) Cellulitis: Code(s): L03.90 - Cellulitis, unspecified Status: Acute Assessment and Plan: . Continue oral clindamycin (3) Anemia: Code(s): D64.9 - Anemia, unspecified Status: Chronic Assessment and Plan: Monitor (4) Diabetes mellitus: Qualifiers: Diabetes mellitus long chain beamer insulin use: with long chain beamer use Diabetes mellitus complication status: with kidney complications Code(s): E11.9 - Type 2 diabetes mellitus without complications Status: Chronic Assessment and Plan: Continue Accu-Cheks and sliding scale insulin along with Lantus (5) CAD (coronary artery disease): Code(s): I25.10 - Atherosclerotic heart disease of [place] coronary artery without angina pectoris Status: Acute Assessment and Plan: Continue Brilinta, carvedilol,aspirin (6) ESRD (end stage renal disease) on dialysis: Code(s): N18.6 - End stage renal disease; Z99.2 - Dependence on renal dialysis Status: Chronic Assessment and Plan: End-stage renal disease on dialysis -hyperkalemia -patient is being dialyzed today -further dialysis per Nephrology Subjective Date/time seen: 07/20/22 12:39 no complaints Exam Narrative: appears chronically ill Patient is comfortable, NAD HEENT: eyes are clear and none icteric LUNGS: normal respiratory effort ABD: not distended Lower extremities: no edema MS: right BKA, left AKA SKIN: nonjaundiced Neuro: grossly intact. Objective Data Vital Signs Vital Signs: Vital Signs - 24 hr 07/19/22 14:00 07/19/22 16:00 07/19/22 16:00 Temperature Pulse Rate 99 105 H 100 Respiratory Rate 20 Blood Pressure Pulse Oximetry 99 Oxygen Delivery Room Air 07/19/22 16:00 07/19/22 17:47 07/19/22 18:30 Temperature 101.9 F H 100.2 F H Pulse Rate 104 H 103 H Respiratory Rate 22 H Blood Pressure 126/58 L Pulse Oximetry 99 Oxygen Delivery 07/19/22 19:45 07/19/22 20:13 07/19/22 20:00 Temperature 98.8 F Pulse Rate 96 95 Respiratory Rate 14 Blood Pressure 167/67 H Pulse Oximetry 97 96 Oxygen Delivery Room Air 07/19/22 20:00 07/19/22 22:00 07/20/22 00:00 Temperature 99.2 F Pulse Rate 97 93 97 Respiratory Rate 20 Blood Pressure 161/50 H Pulse Oximetry 97 Oxygen Delivery 07/20/22 00:00 07/20/22 00:00 07/20/22 02:00 Temperature Pulse Rate 97 94 Respiratory Rate Blood Pressure Pulse Oximetry 97 Oxygen Delivery Room Air 07/20/22 04:00 07/20/22 04:00 07/20/22 04:00 Temperature 97.9 F Pulse Rate 94 93 Respiratory Rate 24 H Blood Pressure 136/45 L Pulse Oximetry 97 97 Oxygen Delivery Room Air 07/19/22 23:22 07/20/22 06:00 07/20/22 07:25 Temperature 98.9 F Pulse Rate 94 96 Respiratory Rate 22 H Blood Pressure 143/58 H Pulse Oximetry 97 97 Oxygen Delivery Room Air 07/20/22 08:00 07/20/22 08:00 07/20/22 10:00 Temperature Pulse Rate 96 93 77 Respiratory Rate 20 Blood Pressure Pulse Oximetry 98 Oxygen Delivery Room Air 07/20/22 08:20 07/20/22 08:10 07/20/22 08:40 Temperature 97.9 F Pulse Rate 93 93 98 Respiratory Rate 15 Blood Pressure 141/31 H 133/69 112/29 L Pulse Oximetry Oxygen Delivery 07/20/22 09:00 07/20/22 09:20 07/20/22 09:40 Temperature Pulse Rate 89 84 79 Respiratory Rate Blood Pressure 89/30 L 99/46 L 113/48 L Pulse Oximetry Oxygen Delivery 07/20/22 10:00 07/20/22 10:40 07/20/22 11:00 Temperature Pulse Rate 79 75 74 Respiratory Rate Blood Pressure 124/61 134/69 145/60 H Pulse Oximetry Oxygen Delivery 07/20/22 11:20 07/20/22 12:19 Temperature Pulse Rate 77 84 Respiratory Rate 15 Blood Pressure 124/47
[2022-07-20] MEDS: TICAGRELOR 60 MG TABLET PO ×2 (13:13→17:55)
[2022-07-20] MEDS: rOPINIRole HCL 0.25 MG TABLET PO (13:13)
[2022-07-20] MEDS: NICOTINE (*PBKC) 21 MG PATCH 1 PATCH TRANSDERM (13:14)
[2022-07-20] MEDS: SILVERGEL (ELTA) 45 ML 1 APPLIC TOPICAL (13:14)
[2022-07-20] MEDS: SERTRALINE HCL 50 MG TABLET 100 MG PO (13:14)
[2022-07-20] MEDS: PANTOPRAZOLE 40 MG TABLET PO (13:14)
[2022-07-20] MEDS: ATORVASTATIN 40 MG TABLET 80 MG PO (13:15)
[2022-07-20] MEDS: GABAPENTIN 300 MG CAPSULE PO (13:15)
[2022-07-20] MEDS: CHOLECALCIFEROL 1,000 UNITS TABLET 1000 UNITS PO (13:15)
[2022-07-20] MEDS: carvediloL 3.125 MG TABLET PO ×2 (13:16→20:29)
[2022-07-20] MEDS: ASPIRIN 81 MG ENTERIC TABLET PO (13:16)
[2022-07-20] MEDS: CYANOCOBALAMIN 1,000 MCG TABLET 1000 MCG PO (13:17)
[2022-07-20] MEDS: VITAMIN B CMPLX/VIT C/FOLIC AC 1 CAPSULE 1 CAP PO (13:17)
[2022-07-20 16:24] LABS: Glucose Point of Care 443 mg/dl (65-105)
[2022-07-20 16:25] LABS: Glucose Point of Care 134 mg/dl (65-105)
[2022-07-20] MEDS: ACETAMINOPHEN 325 MG TABLET 650 MG PO (17:39)
[2022-07-20] MEDS: diphenhydrAMINE HCl CAP 25 MG CAPSULE PO (17:39)
[2022-07-20 17:47] LABS: Glucose Point of Care 383 mg/dl (65-105)
[2022-07-20 18:19] LABS: CMV DNA Quant PCR IU/mL Not Detected; Cytomegalovirus DNA Quant PCR Not Detected log IU/mL; Cytomegalovirus DNA Source Whole Blood
[2022-07-20 20:34] LABS: Glucose Point of Care 382 mg/dl (65-105)
[2022-07-21] VITALS (11 sets, daily range): BP systolic 96–164; BP diastolic 52–59; PULSE 79–99; RESP 15–25; TEMP 36.8–37.6; O2SAT 94–100
[2022-07-21] MEDS: LORazepam (*CRX) 1 MG TABLET PO ×2 (05:15→17:23)
[2022-07-21] MEDS: CLINDAMYCIN HCL 150 MG CAP 300 MG PO ×3 (05:15→17:23)
[2022-07-21 05:47] LABS: Albumin Level 2.7 g/dL (3.5-5.1); Anion Gap 11 mmol/L (8-16); Blood Urea Nitrogen 34 mg/dL (9-20); Calcium 8.5 mg/dL (8.4-10.2); Carbon Dioxide 28 mmol/L (22-30); Chloride 93 mmol/L (98-107); Estimated CRCL calculation 11 ml/min; Estimated Glomerular Filt Rate 13; Glucose 500 mg/dL (65-110); Phosphorus 4.6 mg/dL (2.5-4.5); Potassium 5.1 mmol/L (3.4-5.0); Sodium 132 mmol/L (137-145)
[2022-07-21] MEDS: INSULIN ASPART (*BKC) 100 UNITS/ML 12 UNITS SUB-Q (06:07)
[2022-07-21] MEDS: VITAMIN B CMPLX/VIT C/FOLIC AC 1 CAPSULE 1 CAP PO (08:57)
[2022-07-21] MEDS: TICAGRELOR 60 MG TABLET PO ×2 (08:57→17:29)
[2022-07-21] MEDS: CYANOCOBALAMIN 1,000 MCG TABLET 1000 MCG PO (08:57)
[2022-07-21] MEDS: SERTRALINE HCL 50 MG TABLET 100 MG PO (08:57)
[2022-07-21] MEDS: ASPIRIN 81 MG ENTERIC TABLET PO (08:58)
[2022-07-21] MEDS: GABAPENTIN 300 MG CAPSULE PO (08:58)
[2022-07-21] MEDS: PANTOPRAZOLE 40 MG TABLET PO (08:58)
[2022-07-21] MEDS: ATORVASTATIN 40 MG TABLET 80 MG PO (08:58)
[2022-07-21] MEDS: NICOTINE (*PBKC) 21 MG PATCH 1 PATCH TRANSDERM (08:59)
[2022-07-21] MEDS: SILVERGEL (ELTA) 45 ML 1 APPLIC TOPICAL (09:01)
[2022-07-21] MEDS: ACETAMINOPHEN 325 MG TABLET 650 MG PO ×2 (09:04→13:31)
[2022-07-21] MEDS: INSULIN GLARGINE (*BKC) 100 UNITS/ML SUB-Q (09:11)
[2022-07-21] MEDS: INSULIN ASPART (*BKC) 100 UNITS/ML SUB-Q ×3 (09:12→17:27)
[2022-07-21] MEDS: carvediloL 3.125 MG TABLET PO (09:14)
[2022-07-21] MEDS: CHOLECALCIFEROL 1,000 UNITS TABLET 1000 UNITS PO (09:14)
[2022-07-21 09:17] LABS: Glucose Point of Care 381 mg/dl (65-105)
--- NOTE | 2022-07-21 10:36 | WPDNEUROPN ---
Progress Note: A&P Assessment and Plan (1) Weakness: Code(s): R53.1 - Weakness Status: Acute Assessment and Plan: Ish Corley is a 56 year old male with a history of prior L frontal and L temporal strokes, DM, CAD with stents, prior [place], CHF, ESRD on dialysis, HTN, R BKA and L AKA presenting after recent hospital admission for cellulitis, with new weakness in bilateral hands and lower extremities. Unable to get MRI due to spinal stimulator. 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 Initiated IVIG after discussion of risks and benefits with patients. He is due for his last dose today. He has had some improvement but still has residual weakness. - IVIG dosing - 0.4g/kg per day x 5 days, this will have to be coordinated around his dialysis (today is day 5 of 5) - pretreat IVIG with Tylenol 650mg and Benadryl 25mg, both 30 min before the infusion. - Recommend outpatient follow-up in Neurology clinic Subjective Date/time seen: 07/21/22 10:36 Interval history: Ish Corley is a 56 year old male with a history of DM, CAD with stents, prior [place], CHF, ESRD on dialysis, HTN, R BKA and L AKA presenting after recent hospital admission with weakness in bilateral hands and lower extremities. Patient was recently admitted to [facility] for cellulitis of his right knee stump. He was treated with antibiotics and his cultures showed no growth during the admission. He was discharged on 07/14 and was feeling fine at that time. He came home from the hospital and reportedly took two hits of medical marijuana and fell asleep. The following day on 07/15 patient reports that he was difficult to wake up. When he did finally wake up he noticed that he could not move his torso, hands, or lower extremities. This has been constant since then. He denies any bowel or bladder incontinence. He reports that he does have sensation in his genital and anal area, but reports numbness in bilateral hands and bilateral lower extremities. His strength in his arms (other than his hands) is completely is normal. He denies any vision changes such as blurry or double vision, dysphagia, chest pain, or increased shortness of breath from his baseline. At [facility] he had a CT head which showed prior L frontal and L temporal infarcts (chronic). CTA showed no stenosis of the ICAs but moderate stenosis of vertebral artery origins. He had a carotid doppler of his neck which was negative. He was admitted for further evaluation with MRI. However, patient has a spinal stimulator that was placed 20 years ago so he cannot get an MRI. Lumbar puncture was done which showed elevated protein of 182 and cell count of 4. Concern for Guillan [place]. Obtained CT complete spine to rule out cord compression or other structural lesion. CT cervical spine showed mild cervical spondylosis. The thoracic and lumbar CT showed anterior and posterior fusion procedures from L4-S1. He received his first dose of IVIG on 07/17. Interval history Patient feeling well this morning, no complaints. Receiving last dose of IVIG today. Review of Systems Constitutional: Constitutional: Denies chills and Reports weakness Eyes: Eyes: Reports no additional eye complaints and Denies blurry vision ENT: Reports Normal hearing present and Denies dysphagia Cardiovascular: Cardiovascular: Reports no additional cardiovascular complaints and Reports dyspnea on exertion Respiratory: Respiratory: Reports cough and Reports dyspnea on exertion Gastrointestinal: Gastrointestinal: Denies dysphagia Genitourinary: Genitourinary: Reports as per HPI Musculoskeletal: Musculoskeletal: Reports arthralgias Integumentary/Breasts: Skin/Breast: Reports wounds Neurologic: Reports as per HPI, Reports Normal hearing present and Reports weakness Psychiatric: Psychiatric: Reports no additional psychiatric complaints Exam Const:
[2022-07-21 12:29] LABS: Glucose Point of Care 341 mg/dl (65-105)
[2022-07-21 12:42] LABS: Varicella IgM Antibody <=0.90 (<=0.90)
--- NOTE | 2022-07-21 13:03 | PM.DS ---
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 IVIG has been started. Tolerating okay. (2) Cellulitis: Code(s): L03.90 - Cellulitis, unspecified Status: Acute Assessment and Plan: . Continue oral clindamycin (3) Anemia: Code(s): D64.9 - Anemia, unspecified Status: Chronic Assessment and Plan: Monitor (4) Diabetes mellitus: Qualifiers: Diabetes mellitus nursing home insulin use: with termite exterminator helper use Diabetes mellitus complication status: with kidney complications Code(s): E11.9 - Type 2 diabetes mellitus without complications Status: Chronic Assessment and Plan: Continue Accu-Cheks and sliding scale insulin along with Lantus (5) CAD (coronary artery disease): Code(s): I25.10 - Atherosclerotic heart disease of [place] coronary artery without angina pectoris Status: Acute Assessment and Plan: Continue Brilinta, carvedilol,aspirin (6) ESRD (end stage renal disease) on dialysis: Code(s): N18.6 - End stage renal disease; Z99.2 - Dependence on renal dialysis Status: Chronic Assessment and Plan: End-stage renal disease on dialysis -hyperkalemia -patient is being dialyzed today -further dialysis per Nephrology DS: Summary Hospital Course Hospital Course: patient was admitted for weakness. Patient had evaluation and workup which revealed a lumbar puncture that had excessive protein. This was consistent with GBS. Neurology was consulted we ruled out any other spinal pathology and IVIG was started. Patient has received his complete dose IVIG. since his IViG has started he has had some improvement in his lower extremity and upper extremity weakness. Nonetheless patient can be discharged and follow up with Neurology as an outpatient. Time Spent with Patient Time attestation: Total time spent providing and/or coordinating discharge services: Exam Narrative: appears chronically ill Patient is comfortable, NAD HEENT: eyes are clear and none icteric LUNGS: normal respiratory effort ABD: not distended Lower extremities: no edema MS: right BKA, left AKA SKIN: nonjaundiced Neuro: grossly intact. DS: Data Data Completed and Pending Labs on day of discharge: Labs from last 24 hours 07/21/22 07/21/22 07/21/22 12:17 09:11 05:14 Sodium 132 L Potassium 5.1 H Chloride 93 L Carbon Dioxide 28 Anion Gap 11 BUN 34 H D Creatinine 4.80 H Estim Creat Clear Calc 11 Estimated GFR 13 L Glucose 500 H POC Capillary Glucose 341 H 381 H Calcium 8.5 Phosphorus 4.6 H Albumin 2.7 L CMV DNA Quant PCR CMV DNA Qnt Source CMV Qnt PCR log IU/mL VZV IgG Antibody VZV IgM Antibody 07/20/22 07/20/22 07/20/22 20:28 17:45 16:22 Sodium Potassium Chloride Carbon Dioxide Anion Gap BUN Creatinine Estim Creat Clear Calc Estimated GFR Glucose POC Capillary Glucose 382 H 383 H 443 H Calcium Phosphorus Albumin CMV DNA Quant PCR CMV DNA Qnt Source CMV Qnt PCR log IU/mL VZV IgG Antibody VZV IgM Antibody 07/20/22 07/16/22 12:36 14:52 Sodium Potassium Chloride Carbon Dioxide Anion Gap BUN Creatinine Estim Creat Clear Calc Estimated GFR Glucose POC Capillary Glucose 134 H Calcium Phosphorus Albumin CMV DNA Quant PCR Not detected CMV DNA Qnt Source Whole blood CMV Qnt PCR log IU/mL Not detected VZV IgG Antibody 674.70 VZV IgM Antibody <=0.90 Preliminary micro results at discharge 07/16/22 12:27 Fungal Culture and Stain - Preliminary Cerebral Spinal Fluid 07/16/22 13:15 CSF Culture - Preliminary Cerebral Spinal Fluid
[2022-07-21] MEDS: diphenhydrAMINE HCl CAP 25 MG CAPSULE PO (13:30)
--- NOTE | 2022-07-21 14:49 | PM.PNNEP ---
Progress Note: A&P Assessment and Plan (1) ESRD (end stage renal disease): Code(s): N18.6 - End stage renal disease Status: Chronic Assessment and Plan: HD tomorrow. I will write orders in case he does not go. Volume status looks okay. Potassium 5.1, okay for a non dialysis day. 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 He is getting IVIG. He will get his 5th dose today. (3) Hypertension: Code(s): I10 - Essential (primary) hypertension Status: Chronic Assessment and Plan: Blood pressure is up and down, from 90-160. He is on carvedilol. (4) Anemia: Code(s): D64.9 - Anemia, unspecified Status: Chronic Assessment and Plan: due to ESRD and acute illness Epogen with HD (5) IDDM (insulin dependent diabetes mellitus): Status: Chronic Assessment and Plan: On Accu-Cheks and insulin sliding scale per tube washer/hospitalists. Subjective Date/time seen: 07/21/22 08:20am Interval history: Ish is feeling better. In good spirits. He says he wants to go home. I agree with him going if all others are as well. Exam Narrative: General: WD/WN male in NAD Heart: normal S1 and S2; no rub Lungs: clear to auscultation Abdomen: soft, nontender, nondistended, positive bowel sounds Extremities: no cyanosis or clubbing; no edema . Bilateral lower extremity amputations Skin: no rash or subcu nodules Objective Data Vital Signs Vital Signs: Vital Signs - 24 hr 07/20/22 15:27 07/20/22 16:29 07/20/22 16:00 Temperature 38.0 C H Pulse Rate 98 99 98 Respiratory Rate 20 20 Blood Pressure 159/61 H Pulse Oximetry 98 92 Oxygen Delivery Room Air 07/20/22 18:00 07/20/22 20:05 07/20/22 20:29 Temperature Pulse Rate 99 92 88 Respiratory Rate 24 H Blood Pressure Pulse Oximetry 95 Oxygen Delivery Room Air 07/20/22 20:00 07/20/22 20:00 07/20/22 22:00 Temperature 37.1 C Pulse Rate 89 91 88 Respiratory Rate 25 H Blood Pressure 145/56 H Pulse Oximetry 97 Oxygen Delivery 07/20/22 23:45 07/20/22 23:53 07/21/22 00:00 Temperature 37.2 C Pulse Rate 91 92 91 Respiratory Rate 23 H 25 H Blood Pressure 161/66 H Pulse Oximetry 97 97 Oxygen Delivery Room Air 07/21/22 02:00 07/21/22 04:00 07/21/22 04:00 Temperature 37.3 C Pulse Rate 94 99 99 Respiratory Rate 25 H 17 Blood Pressure 164/58 H Pulse Oximetry 97 96 Oxygen Delivery Room Air 07/21/22 04:00 07/21/22 06:00 07/21/22 09:14 Temperature Pulse Rate 95 97 96 Respiratory Rate Blood Pressure Pulse Oximetry Oxygen Delivery 07/21/22 08:00 07/21/22 08:00 07/21/22 08:00 Temperature 37.6 C Pulse Rate 92 94 Respiratory Rate 20 Blood Pressure 135/53 L Pulse Oximetry 94 Oxygen Delivery Room Air 07/21/22 10:00 07/21/22 11:54 07/21/22 12:00 Temperature Pulse Rate 91 85 Respiratory Rate Blood Pressure Pulse Oximetry Oxygen Delivery Room Air 07/21/22 12:00 07/21/22 14:00 Temperature 36.9 C Pulse Rate 86 81 Respiratory Rate 15 Blood Pressure 96/52 L Pulse Oximetry 99 Oxygen Delivery Intake/Output Intake/Output: Intake & Output 07/18/22 07/19/22 07/20/22 07/21/22 23:59 23:59 23:59 23:59 Intake Total 1517.2 1447.2 1317.2 880 Output Total 1000 0 1100 Balance 517.2 1447.2 217.2 880 Meds/Results Medications: Active Medications Generic Name Dose Route Start Last Admin Trade Name Freq PRN Reason Stop Dose Admin Acetaminophen 650 mg 07/15/22 19:19 07/21/22 09:04 Acetaminophen 325 Mg Tablet PO 650 mg Q4H PRN Administration Mild Pain (1-3) Or Fever Albuterol 1 puff 07/15/22 19:19 Albuterol Sulfate (*Sp) Aerosol 1 Puff INHA
[2022-07-21 17:37] LABS: Glucose Point of Care 352 mg/dl (65-105)
[2022-07-25 02:30] LABS: Epstein Barr Virus DNA PCR Not Detected (Not Detected); Source Epstein Barr Virus CSF
[2022-07-28 14:25] LABS: Herpes Simplex Type 1 DNA PCR Not Detected; Herpes Simplex Type 2 DNA PCR Not Detected
[2022-07-29 18:33] LABS: VDRL Quantitative CSF Nonreactive (Nonreactive)
== END 2022-07-21 18:15 | disposition home health service (06) | DRG 94 ==
LOC: ANHED 12:37 → ANH3MEDSUR 14:47 → ANHICU 07-19 16:05 → ANH3MEDSUR 07-22 08:58
PROVIDERS: Internal Medicine; Internal Medicine Nephrology; Nurse Practitioner; Student in an Organized Health Care Education/Training Program; Admitting Provider Internal Medicine; Emergency Provider Emergency Medicine; PCP Emergency Medicine; Visit Provider Chiropractor
DX: G61.0 Guillain-Barre syndrome (principal); N18.6 End stage renal disease; I13.2 Hypertensive heart and chronic kidney disease with heart failure and with stage 5 chronic kidney disease, or end stage renal disease; T87.43 Infection of amputation stump, right lower extremity; L03.115 Cellulitis of right lower limb; E10.22 Type 1 diabetes mellitus with diabetic chronic kidney disease; I50.9 Heart failure, unspecified; I25.10 Atherosclerotic heart disease of native coronary artery without angina pectoris; F41.8 Other specified anxiety disorders; N25.0 Renal osteodystrophy; E87.5 Hyperkalemia; N40.0 Benign prostatic hyperplasia without lower urinary tract symptoms; D63.1 Anemia in chronic kidney disease; K21.9 Gastro-esophageal reflux disease without esophagitis; F17.210 Nicotine dependence, cigarettes, uncomplicated; I25.2 Old myocardial infarction; Z95.5 Presence of coronary angioplasty implant and graft; Z89.612 Acquired absence of left leg above knee; Z89.511 Acquired absence of right leg below knee; Z98.49 Cataract extraction status, unspecified eye; Z99.2 Dependence on renal dialysis; Z86.73 Personal history of transient ischemic attack (TIA), and cerebral infarction without residual deficits
CPT/HCPCS: 36415; 36569; 36600; 62328; 70450; 70496; 70498; 71045; 72125; 72128; 72131; 80048; 80053; 80069; 82010; 82040; 82042; 82728; 82784; 82805; 82945; 82948; 83605; 83735; 83873; 83916; 84100; 84157; 84443; 85025; 85027; 85610; 85730; 86140; 86592; 86617; 86787; 87070; 87102; 87206; 87497; 87529; 87798; 89051; 93005; 93880; 96361; 96374; 96375; 97110; 97162; 97165; 97530; 97535; 99285; A9270; C1751; G0257; G0378; G0379; J1459; J1644; J1815; J7030; P9047; Q5105; Q9967

== ENCOUNTER 2022-07-28 03:12 | Inpatient (IN) | payer OTHER, SELFPAY ==
[2022-07-28] VITALS (39 sets, daily range): BP systolic 105–169; BP diastolic 47–72; PULSE 76–105; RESP 16–31; TEMP 36.6–36.8; O2SAT 95–100; BMI 18.3
--- NOTE | ~2022-07-28 | CT_ITS ---
EXAMINATION: CT knee RT wo con DATE: 07/28/2022 04:17 INDICATION: Wound at the stump of a right rsphl-nwm-oice amputation. Evaluate for abscess. TECHNIQUE: High resolution computed tomography (CT) of the right knee was performed without intraveno us contrast. Additional sagittal and coronal reconstructions were performed. Automated exposure contr ol and iterative reconstruction technique were employed. The dose-length product was 563.49 mGy-cm. COMPARISON: 07/09/2022 FINDINGS: Again seen is a right jorvo-iub-ebyw amputation. There is diffuse subcutaneous edema at the end of th e right knee. There is irregular contour to the skin surface with tiny foci of subcutaneous gas in th e distal margin of the stump concerning for infection. There is a small loculated fluid collection me asuring 2.2 x 1.7 cm in transaxial dimensions and 1 cm in thickness situated between the skin surface and the osteotomy margin of the distal tibia which could represent either an abscess or bursa. The o steotomy margins remains smoothly corticated with no erosion or increased density of the immediately underlying fatty marrow to suggest osteomyelitis at either the tibia or fibula. There is a small righ t knee joint effusion. Joint spaces appear relatively preserved. Prominent scattered atherosclerotic calcifications along the popliteal, proximal anterior tibial, posterior tibial and peroneal arteries and many additional smaller arterial branches. IMPRESSION: 1. Likely cellulitis with 2.2 x 1.7 x 1.0 cm loculated fluid collection along the tibial osteotomy ma rgin which is concerning for abscess with differential including an aseptic bursa. Consider aspiratio n with Gram stain and culture of the fluid collection. No erosions or loss of marrow fat signal at th e osteotomy margin to suggest osteomyelitis. Reviewed, dictated and finalized at location A. IMPRESSION: 1. Likely cellulitis with 2.2 x 1.7 x 1.0 cm loculated fluid collection along t he tibial osteotomy margin which is concerning for abscess with differential in cluding an aseptic bursa. Consider aspiration with Gram stain and culture of th e fluid collection. No erosions or loss of marrow fat signal at the osteotomy m argin to suggest osteomyelitis.
[2022-07-28 03:42] LABS: Hematocrit 25.6 % (42.0-52.0); Hemoglobin 7.6 g/dL (14.0-18.0); Mean Corpuscular HGB Conc 29.7 g/dl (32-36); Mean Corpuscular Hemoglobin 29.8 pg (26-34); Mean Corpuscular Volume 100.4 fl (80-100); Mean Platelet Volume 10.3 fl (7.4-10.4); Platelet Count Result 713 k/mm3 (150-375); Red Blood Count 2.55 M/mm3 (4.6-6.20); Red Cell Distribution Width 17.3 % (11.5-14.5); White Blood Count 14.3 K/mm3 (4.5-10.0)
[2022-07-28 04:06] LABS: Anisocytosis 1+ (NORMAL); Band Neutrophils Percent 2 % (0-6); Eosinophils Absolute Manual 0.42 K/mm3 (0.02-0.5); Eosinophils Percent Manual 3 % (0-4); Large Platelets Present; Lymphocytes Absolute Manual 0.57 K/mm3 (1.1-4.5); Monocytes Absolute Manual 0.28 K/mm3 (0.1-0.90); Monocytes Percent Manual 2 % (3-9); Neutrophils Absolute Manual 13.01 K/mm3 (1.3-6.7); Neutrophils Percent Manual 89 % (46-73); Platelet Clumps Present; Platelet Estimate Increased (Adequate); Total Cells Counted 100
[2022-07-28 04:07] LABS: Hypochromasia 2+ (NORMAL); Macrocytosis 1+ (NORMAL); Microcytosis 1+ (NORMAL); Ovalocytes 1+ (NORMAL); Poikilocytosis 2+ (NORMAL); Spherocytes 1+ (NORMAL)
[2022-07-28 04:08] LABS: Burr Cells 1+ (NORMAL)
[2022-07-28 04:21] LABS: Alanine Aminotransferase 20 U/L (6-50); Albumin Level 2.8 g/dL (3.5-5.1); Alkaline Phosphatase 104 U/L (38-126); Anion Gap 21 mmol/L (8-16); Aspartate Amino Transferase 49 U/L (17-59); Bilirubin,Total 0.5 mg/dL (0.2-1.3); Blood Urea Nitrogen 59 mg/dL (9-20); Calcium 7.4 mg/dL (8.4-10.2); Carbon Dioxide 14 mmol/L (22-30); Chloride 87 mmol/L (98-107); Estimated CRCL calculation 11 ml/min; Estimated Glomerular Filt Rate 13; Glucose 1028 mg/dL (65-110); Magnesium 1.9 mg/dL (1.6-2.3); Phosphorus 6.6 mg/dL (2.5-4.5); Potassium 5.8 mmol/L (3.4-5.0); Sodium 122 mmol/L (137-145)
--- NOTE | 2022-07-28 04:23 | ED.GENADULT ---
HPI - General Adult General Chief complaint: Recheck/Abnormal Lab/Rx <Matteo Swartz MD - Last Filed: 07/28/22 04:25> Stated complaint: HI BLOOD SUGAR, GEN MALAISE <Matteo Swartz MD - Last Filed: 07/28/22 04:25> Time Seen by Provider: 07/28/22 03:27 <Matteo Swartz MD - Last Filed: 07/28/22 04:25> History of Present Illness HPI narrative: Patient 56-year-old gentleman who presents the emergency department with chief complaint of hyperglycemia. Patient reports that he is at a new nursing facility and reports that he feels as though they have not been really taking good care of him states he has had issues with controlling his blood sugar there and also noticed that they have changed the dressing to his right stump in several days. The patient reports the area has become painful reports that he also has blood sugars have been running high. Patient states that he is having an exquisite amount of pain at the stump area. The patient reports he is also been drainage from the site <Matteo Swartz MD - Last Filed: 07/28/22 04:25> Related Data Home medications: Home Medications Medication Instructions Recorded Confirmed vitamin B complex-vitamin C-folic 1 tablet PO DAILY 07/23/20 07/15/22 acid 0.8 mg tablet (Dang-Nilsa) ropinirole 0.25 mg tablet 0.25 mg PO DIRECTED 01/11/21 07/15/22 glucagon 1 mg injection kit See Rx Instructions .Route .COMPLEX 03/27/21 07/15/22 ticagrelor 60 mg tablet (Brilinta) 60 mg PO BID 06/23/22 07/15/22 B12 1,000 mcg PO DAILY 07/09/22 07/15/22 albuterol sulfate 90 mcg/actuation 1 puff inhalation QID PRN 07/09/22 07/15/22 aerosol inhaler Shortness Of Breath aspirin 81 mg tablet 81 mg PO DAILY 07/09/22 07/15/22 cholecalciferol (vitamin D3) 25 25 mcg PO DAILY 07/09/22 07/15/22 mcg (1,000 unit) tablet (Vitamin D3) <Matteo Swartz MD - Last Filed: 07/28/22 04:25> Allergies/adverse reactions: Allergies Allergy/AdvReac Type Severity Reaction Status Date / Time scopolamine Allergy Severe Unresponsiv Verified 07/15/22 09:20 e <Matteo Swartz MD - Last Filed: 07/28/22 04:25> Review of Systems Review of Systems: A 10 system review of systems was completed on the patient and is negative except for what is stated in the HPI. Nursing and ancillary documentation was reviewed. <Matteo Swartz MD - Last Filed: 07/28/22 04:25> [facility] Past Medical History Medical History: Medical History Amputation above knee Anxiety Benign prostatic hyperplasia Bradycardic cardiac arrest (~07/23/20) In the setting of severe hyperkalemia, acute pulmonary edema, and respiratory failure Chronic anemia Congestive heart failure Echo 03/06/2021 1. Complete two-dimensional, color flow and Doppler transthoracic echocardiogram is performed. 2. Left ventricular chamber dimension is mildly enlarged. 3. Left ventricular systolic function is mildly reduced, estimated at 55-60%. 4. There is severely increased left ventricular wall thickness. Speckled appearance of the myocardium. 5. The left ventricular diastolic function is grade I diastolic dysfunction. 6. Left atrial chamber dimension is mildly enlarged. 7. There is moderate aortic valve sclerosis. 8. The mitral valve annulus is severely calcified. 9. There is mild mitral valve regurgitation. 10. The mitral valve has thickened leaflets. 11. There is mild tricuspid valve regurgitation. 12. There is mild pulmonic regurgitation. Coronary artery disease With non STEMI in December 2019, with stent placed to the LAD. Depression with anxiety End-stage renal disease on hemodialysis Erythropoietin deficiency anemia Gastric ulcer On endoscopy per Dr. Pacheco in June 2020. Gastroesophageal reflux disease Hypertension Noncompliance Pneumonia Renal osteodystrophy Seizure Secondary to hypoglycemia
[2022-07-28 04:34] LABS: SARS-CoV-2 RNA PCR Negative
[2022-07-28] MEDS: HYDROmorphone HCL INJ (*CRX) 1 MG/ML SYR IV PUSH (04:36)
[2022-07-28] MEDS: INSULIN HUMAN REGULAR (*BKC) 100 UNITS/ML 10 UNITS IV PUSH (04:38)
[2022-07-28] MEDS: SODIUM CHLORIDE 0.9% IV 500 ML 250 ML IV CONT (04:40)
[2022-07-28 04:47] LABS: Beta-Hydroxybutyrate/Acetoacetate 4.73 mmol/L (0.02-0.27)
--- NOTE | 2022-07-28 05:00 | PC.NURSE ---
Pt refused straight cath
[2022-07-28 05:35] LABS: Glucose Point of Care > 500 mg/dl (65-105)
[2022-07-28 05:35] LABS: Glucose Point of Care > 500 mg/dl (65-105)
[2022-07-28] MEDS: INSULIN HUMAN REGULAR (*BKC) 100 UNITS in SODIUM CHLORIDE 0.9% IV 99 ML 8.8 UNITS IV CONT (06:26)
[2022-07-28] MEDS: metroNIDAZOLE 500 MG/ISO 100ML 500 MG/100 ML BAG 100 MG IVPB (07:03)
--- NOTE | 2022-07-28 07:28 | PC.NURSE ---
Assumed care of pt from ADILENE Goncalves. Pt resting on stretcher at this time
[2022-07-28 07:29] LABS: Glucose Point of Care > 500 mg/dl (65-105)
--- NOTE | 2022-07-28 07:41 | PC.NURSE ---
Pt depends, and linens changed at this time. Pt rolled to the left side
--- NOTE | 2022-07-28 07:42 | PC.NURSE ---
Pt states he can't urinate at this time and is refusing to be straight cathed
[2022-07-28 08:35] LABS: Glucose Point of Care > 500 mg/dl (65-105)
[2022-07-28 09:25] LABS: Anion Gap 19 mmol/L (8-16); Blood Urea Nitrogen 62 mg/dL (9-20); Calcium 7.3 mg/dL (8.4-10.2); Carbon Dioxide 18 mmol/L (22-30); Chloride 89 mmol/L (98-107); Estimated CRCL calculation 10 ml/min; Estimated Glomerular Filt Rate 11; Glucose 890 mg/dL (65-110); Potassium 4.4 mmol/L (3.4-5.0); Sodium 126 mmol/L (137-145)
[2022-07-28] MEDS: SODIUM CHLORIDE 0.9% IV 2,000 ML 999 ML IV CONT (09:48)
--- NOTE | 2022-07-28 09:51 | PC.NURSE ---
Pt still refusing to urinate or be straight cathed
[2022-07-28 11:20] LABS: Fractional Inspired Oxygen 21 %; HCO3 VBG 20.6 mEq/l (24.0-30.0); PO2 VBG 92.2 mmHg (35.0-45.0)
[2022-07-28] MEDS: INSULIN HUMAN REGULAR (*BKC) 100 UNITS in SODIUM CHLORIDE 0.9% IV 99 ML 16.6 UNITS IV CONT (11:21)
[2022-07-28 11:24] LABS: Device ROOM AIR; PCO2 VBG 30.2 mmHg (42.0-48.0); pH VBG 7.452 (7.300-7.400)
[2022-07-28 11:39] LABS: Anion Gap 14 mmol/L (8-16); Blood Urea Nitrogen 66 mg/dL (9-20); Calcium 7.6 mg/dL (8.4-10.2); Carbon Dioxide 21 mmol/L (22-30); Chloride 92 mmol/L (98-107); Estimated CRCL calculation 10 ml/min; Estimated Glomerular Filt Rate 11; Glucose 682 mg/dL (65-110); Potassium 4.3 mmol/L (3.4-5.0); Sodium 127 mmol/L (137-145)
--- NOTE | 2022-07-28 12:30 | PC.NURSE ---
This patient, Ish Corley, was admitted to Intensive Care Unit-10. Patient/family oriented to hospital policies and general routines including ID bracelet, bed and alarms, visiting hours, pain management, procedures, bathroom and other care routines, personal items, smoking policy, room service/diet, and visiting hours. Information on how to activate the Rapid Response Team has been discussed. Patient/Family are encouraged to report perceived risks to care and to ask questions if they do not understand what they are told or what they should do.
[2022-07-28 13:03] LABS: Glucose Point of Care > 500 mg/dl (65-105)
--- NOTE | 2022-07-28 13:07 | WPDCNINT ---
Assessment and Plan Assessment and plan (1) DKA (diabetic ketoacidoses): Qualifiers: Diabetes mellitus type: type 1 Diabetes mellitus complication detail: without coma Qualified Code(s): E10.10 - Type 1 diabetes mellitus with ketoacidosis without coma Code(s): E11.10 - Type 2 diabetes mellitus with ketoacidosis without coma Status: Resolved Assessment and Plan: Patient presented with hyperglycemia with blood sugars of 890 in the ER on admission on 07/28/2022. Elevated beta hydroxybutyrate, anion gap metabolic acidosis -patient was given 2.5 L IV fluids and started on insulin infusion per DKA protocol -not giving him any maintenance IV fluids at this time as he is a dialysis patient -will transition patient to long-acting insulin and sliding scale insulins once his anion gap closes (2) Abscess of right leg: Code(s): L02.415 - Cutaneous abscess of right lower limb Status: Acute Assessment and Plan: Patient complained of right BKA stump pain, redness, swelling, discharge -07/28/[address] scan : Likely cellulitis with 2.2 x 1.7 x 1.0 cm loculated fluid collection along the tibial osteotomy margin which is concerning for abscess with differential including an aseptic bursa. Consider aspiration with Gram stain and culture of the fluid collection. No erosions or loss of marrow fat signal at the osteotomy margin to suggest osteomyelitis. -patient started on cefepime, Flagyl and vancomycin, will discontinue if cefepime and Flagyl instead Zosyn -so patient will be on vancomycin and Zosyn (07/28) -blood cultures will be obtained -will also obtain wound culture from the right BKA stump (3) Sepsis: Qualifiers: Sepsis type: sepsis due to unspecified organism Sepsis acute organ dysfunction status: with acute organ dysfunction Severe sepsis acute organ dysfunction type: acute respiratory failure Acute respiratory failure type: unspecified Severe sepsis shock status: unspecified Qualified Code(s): A41.9 - Sepsis, unspecified organism; R65.20 - Severe sepsis without septic shock; J96.00 - Acute respiratory failure, unspecified whether with hypoxia or hypercapnia Code(s): A41.9 - Sepsis, unspecified organism Status: Acute Assessment and Plan: Patient with leukocytosis, right BKA stump abscess, hyperglycemia -continue antibiotics as above -blood pressures have been stable -continue to monitor (4) End-stage renal disease on hemodialysis: Code(s): N18.6 - End stage renal disease; Z99.2 - Dependence on renal dialysis Status: Acute Assessment and Plan: History of end-stage renal disease on dialysis, Mondays, with disease, Fridays and Saturdays -nephrology has been consulted, dialysis per Nephrology Patient did receive dialysis on 07/27 (5) Pressure ulcer: Code(s): L89.90 - Pressure ulcer of unspecified site, unspecified stage Status: Acute Assessment and Plan: Pressure ulcer with eschar formation on the buttocks -wound care is following, -surgery has been consulted Plan DVT prophylaxis: No DVT prophylaxis for now as patient may get abscess drained on debridement of the right stump Stress ulcer prophylaxis: None Nutrition: Will start patient on clear liquid diet and advance as tolerated after abscess has been drained by surgery Code Status: Full code Critical Care Time Spent: 47 minutes Due to a high probability of clinically significant, life threatening deterioration, the patient required my highest level of preparedness to intervene emergently and I personally spent this critical care time directly and personally managing the patient. This critical care time included obtaining a history; examining the patient; pulse oximetry; ordering and review of studies; arranging urgent treatment with development of a management plan; evaluation of patient's response to treatment; frequent reassessment; and discussions with other provi
--- NOTE | 2022-07-28 13:44 | PM.IMHP ---
H&P: HPI History of Present Illness Date/Time: 07/28/22 13:44 Chief Complaint: General malaise and high blood sugar. Narrative: This is a 56-year-old male patient with end-stage renal disease with dialysis on Monday we Monday and Monday. The patient is currently at [facility]. The patient has been hospitalized multiple times in the past with the last 1 being Guillain-[place]. The patient has been dealing with infection to his right [id number] stump. Patient has necrotic tissue to the right [id number] amputation as well as on his buttocks. The patient stated that he has been incontinent of stool and that he does not get cleaned as well as he would like to be. The patient also stated that he has not had his dressing changed to his stump in several days. The patient is dissatisfied with the care that he has been receiving at the long term. The patient stated that his blood sugars have been running high most the time. There has also been some drainage from that to right stump. Knee x-ray was read as the following today?Likely cellulitis with 2.2 x 1.7 x 1.0 cm loculated fluid collection along the tibial osteotomy margin which is concerning for abscess with differential including an aseptic bursa. Consider aspiration with Gram stain and culture of the fluid collection. No erosions or loss of marrow fat signal at the osteotomy margin to suggest osteomyelitis. Surgery has been consulted. The patient has been started on cefepime, Flagyl and vancomycin. His white count was noted to be 14.3. H&H is 7.6 and 25.6. This is lower than previous readings. Patient's sodium levels 127 which has been chronically low. Creatinine 5.4 BUN is 66. His blood sugar was initially 1028 when he came to the emergency room. The patient was given IV insulin in the emergency room and IV fluids. He is currently on an insulin drip. Nephrology has been consulted. The patient is being admitted to inpatient status to ICU on 07/28/2022. Review of Systems Review of Systems: See HPI All systems reviewed & are unremarkable except as noted in HPI and below Constitutional: Constitutional: Reports as per HPI and Reports no additional constitutional complaints Eyes: Eyes: Reports as per HPI and Reports no additional eye complaints ENT: Reports system reviewed and no additional complaints, except as documented and Reports Normal hearing present Cardiovascular: Cardiovascular: Reports no additional cardiovascular complaints Respiratory: Respiratory: Reports no additional respiratory complaints and Reports no additional respiratory complaints Gastrointestinal: Gastrointestinal: Reports as per HPI and Reports no additional gastrointestinal complaints Musculoskeletal: Musculoskeletal: Reports no additional musculoskeletal complaints Integumentary/Breasts: Skin/Breast: Reports system reviewed and no additional complaints, except as docu and Reports as per HPI Neurologic: Reports system reviewed and no additional complaints, except as documented, Reports as per HPI and Reports Normal hearing present Psychiatric: Psychiatric: Reports no additional psychiatric complaints and Reports as per HPI Endocrine: Endocrine: Reports no additional endocrine complaints Hematologic/Lymphatic: Hematologic/Lymphatic: Reports no additional hematologic/lymphatic complaints Allergic/Immunologic: Allergic/Immunologic: Reports no additional allergic/immunologic complaints PMFSH Past Medical History Medical History Acute respiratory failure with hypoxia Amputation above knee Anemia Anxiety Benign prostatic hyperplasia Bradycardic cardiac arrest (~07/23/20) In the setting of severe hyperkalemia, acute pulmonary edema, and respiratory failure CHF (congestive heart failure) Chronic anemia Chronic kidney failure Congestive heart failure Echo 03/06/2021 1. Complete two-dimensional, color flow and Doppler transtho
[2022-07-28 14:12] LABS: Glucose Point of Care 436 mg/dl (65-105)
[2022-07-28] MEDS: MUPIROCIN 2% OINT 22 GM TUBE 1 APPLIC TOPICAL ×2 (14:14→23:46)
--- NOTE | 2022-07-28 14:28 | PM.CNGS ---
Assessment and Plan Assessment and plan (1) Abscess of right leg: Code(s): L02.415 - Cutaneous abscess of right lower limb Status: Acute Assessment and Plan: Right BKA with a large ulcer at the stump covered by black eschar. No significant surrounding cellulitis. There is possibly a small area of fluctuance just below the tip of the tibia to the medial side the black eschar. No open wounds or purulent drainage. Although, he is very tender on exam. CT suggesting a small fluid collection near the end of the tibial osteotomy. I reviewed the CT with the Radiologist and discussed the case with Dr. Hercules. He recommended needle aspiration of the fluid collection, which I was able to do at the bedside today. The fluid was sent for culture and gram stain. Continue broad-spectrum IV antibiotics and local wound care for now. Would avoid surgically debriding the black eschar since he would be left with a large open wound and likely need wound vac therapy after surgery. Will continue to monitor for any changes or signs of worsening infection. Thank you for allowing us to see the patient in consultation and we will continue to follow along with you. (2) Pressure ulcer: Code(s): L89.90 - Pressure ulcer of unspecified site, unspecified stage Status: Acute Assessment and Plan: Unstageable sacral decubitus ulcer with an eschar overlying the wound. This appears stable with a firm wound bed. No foul odor or purulent drainage. No fluctuance suggesting an abscess. No indication for surgical intervention at this time. Would recommend to continue local wound care. Frequent turning and will order a specialty mattress for his pressure ulcers. (3) DKA (diabetic ketoacidoses): Qualifiers: Diabetes mellitus complication detail: without coma Diabetes mellitus type: type 1 Qualified Code(s): E10.10 - Type 1 diabetes mellitus with ketoacidosis without coma Code(s): E11.10 - Type 2 diabetes mellitus with ketoacidosis without coma Status: Resolved Assessment and Plan: Currently in ICU. Continue insulin infusion and medical management per java software architect. (4) Guillain-[place]: Code(s): G61.0 - Guillain-[place] syndrome Status: Acute (5) End-stage renal disease on hemodialysis: Code(s): N18.6 - End stage renal disease; Z99.2 - Dependence on renal dialysis Status: Acute (6) Type 1 diabetes mellitus with long-term current use of insulin: Code(s): E10.9 - Type 1 diabetes mellitus without complications Status: Acute (7) Antiplatelet or antithrombotic long-term use: Code(s): Z79.02 - intermediate frame tender (current) use of antithrombotics/antiplatelets Status: Acute Assessment and Plan: On Brilinta. (8) Tobacco dependence: Code(s): F17.200 - Nicotine dependence, unspecified, uncomplicated Status: Acute Assessment and Plan: Recommended cessation. (9) PAD (peripheral artery disease): Code(s): I73.9 - Peripheral vascular disease, unspecified Status: Acute Assessment and Plan: Recommended outpatient follow-up with his vascular surgeon at [facility] after discharge. They could then follow the stump ulcer and decide on any further outpatient testing needed. Plan I have discussed the patient's case and plan of care with Dr. Hercules. History of Present Illness Consult details Consult date: 07/28/22 Reason for consult: other (Right stump wound, sacral decubitus ulcer) Requesting physician: Holly Cortes MD Narrative: This is a 56-year-old type 1 diabetic with multiple medical problems who was recently hospitalized from 07/15/2022 through 07/21/2022 for Guillain-[place] syndrome and was treated with IVIG. He has significant peripheral vascular disease and has a right BKA and left AKA. The patient was residing at [facility] since his last discharge. He felt he was not taking care of there and not cl
[2022-07-28 15:03] LABS: Glucose Point of Care 324 mg/dl (65-105)
--- NOTE | 2022-07-28 15:03 | P.CONNP_ITS ---
Assessment and Plan Assessment and plan (1) ESRD (end stage renal disease): Code(s): N18.6 - End stage renal disease Status: Chronic Assessment and Plan: * HD yesterday * continue 4x/week schedule of M/W/F/Sat * follow electrolytes, volume status, and clearance * plan HD tomorrow (2) DKA (diabetic ketoacidoses): Qualifiers: Diabetes mellitus type: type 1 Diabetes mellitus complication detail: without coma Qualified Code(s): E10.10 - Type 1 diabetes mellitus with ketoacidosis without coma Code(s): E11.10 - Type 2 diabetes mellitus with ketoacidosis without coma Status: Resolved Assessment and Plan: * noted blood sugar of 890 on presentation with elevated beta hydroxybutyrate and anion gap metabolic acidosis * s/p IVF resuscitation in ER (~ 2.5L IVFs given) * currently on insulin gtt per DKA protocol * transition to SQ insulin once anion gap corrects (3) Abscess of right leg: Code(s): L02.415 - Cutaneous abscess of right lower limb Status: Acute Assessment and Plan: * small fluid collection at right BKA stump by CT scan * large ulcer at right BKA stump with black eschar * on IV antibiotics * General Surgery consulted for further evaluation (4) Hypertension: Code(s): I10 - Essential (primary) hypertension Status: Inactive Assessment and Plan: * has been quite erratic in the past * history of HTN urgency leading to flash pulmonary edema and acute respiratory distress (usually requiring intubation) * this has been better controlled with dialysis 4 days/week * follow trend of hemodynamics (5) Anemia: Code(s): D64.9 - Anemia, unspecified Status: Inactive Assessment and Plan: * due to ESRD and acute illness/infection * Epogen with HD * follow trend of H/H (6) IDDM (insulin dependent diabetes mellitus): Status: Inactive Assessment and Plan: * see #2 * follow accuchecks * glycemic control Will continue to follow. History of Present Illness Reason for Consult Consult date: 07/28/22 Reason for consult: end stage renal disease Chief Complaint Chief complaint: DIABETIC HYPERGLYCEMIA,DIALYSIS,CELLULITIS History of Present Illness Narrative: The patient is a 56-year-old male patient with a past medical history as outlined below who presented to [facility] Emergency room for evaluation of hyperglycemia, along with pain/erythema from his right BKA site. The patient was just recently admitted from from 07/15/2022 TO 07/21/2022 for Guillain-[place] syndrome and was treated with IVIG.?He did reasonably well during that hospitalization and was subsequently discharged without any significant problems or issues. He returned to the ER today for the above complaints and was found to have a elevated blood sugar of 890 in associated with an elevated beta hydroxybutyrate and anion gap metabolic acidosis along with a mildly elevated white blood cell count as noted by routine blood tests. He was fluid resuscitated with 2.5 L of IV fluids and subsequently started on an insulin drip per DKA protocol. He also has noted to have significant discomfort and pain in his right BKA stump with associated swelling redness and reported discharge. There was a large wound present on his right stump with a black eschar present as well. A CT scan of the right leg demonstrated cellulitis with a 2.2 x 1.7 x 1.0 cm loculated fluid collection along the tibial ostomy margin which is concerning for an abscess. In the context of these issues / problems, he was admitt
--- NOTE | 2022-07-28 15:03 | PM.CNNEP ---
Assessment and Plan Assessment and plan (1) ESRD (end stage renal disease): Code(s): N18.6 - End stage renal disease Status: Chronic Assessment and Plan: HD yesterday continue 4x/week schedule of M/W/F/Sat follow electrolytes, volume status, and clearance plan HD tomorrow (2) DKA (diabetic ketoacidoses): Qualifiers: Diabetes mellitus type: type 1 Diabetes mellitus complication detail: without coma Qualified Code(s): E10.10 - Type 1 diabetes mellitus with ketoacidosis without coma Code(s): E11.10 - Type 2 diabetes mellitus with ketoacidosis without coma Status: Resolved Assessment and Plan: noted blood sugar of 890 on presentation with elevated beta hydroxybutyrate and anion gap metabolic acidosis s/p IVF resuscitation in ER (~ 2.5L IVFs given) currently on insulin gtt per DKA protocol transition to SQ insulin once anion gap corrects (3) Abscess of right leg: Code(s): L02.415 - Cutaneous abscess of right lower limb Status: Acute Assessment and Plan: small fluid collection at right BKA stump by CT scan large ulcer at right BKA stump with black eschar on IV antibiotics General Surgery consulted for further evaluation (4) Hypertension: Code(s): I10 - Essential (primary) hypertension Status: Inactive Assessment and Plan: has been quite erratic in the past history of HTN urgency leading to flash pulmonary edema and acute respiratory distress (usually requiring intubation) this has been better controlled with dialysis 4 days/week follow trend of hemodynamics (5) Anemia: Code(s): D64.9 - Anemia, unspecified Status: Inactive Assessment and Plan: due to ESRD and acute illness/infection Epogen with HD follow trend of H/H (6) IDDM (insulin dependent diabetes mellitus): Status: Inactive Assessment and Plan: see #2 follow accuchecks glycemic control Will continue to follow. History of Present Illness Reason for Consult Consult date: 07/28/22 Reason for consult: end stage renal disease Chief Complaint Chief complaint: DIABETIC HYPERGLYCEMIA,DIALYSIS,CELLULITIS History of Present Illness Narrative: The patient is a 56-year-old male patient with a past medical history as outlined below who presented to [facility] Emergency room for evaluation of hyperglycemia, along with pain/erythema from his right BKA site. 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 He returned to the ER today for the above complaints and was found to have a elevated blood sugar of 890 in associated with an elevated beta hydroxybutyrate and anion gap metabolic acidosis along with a mildly elevated white blood cell count as noted by routine blood tests. He was fluid resuscitated with 2.5 L of IV fluids and subsequently started on an insulin drip per DKA protocol. He also has noted to have significant discomfort and pain in his right BKA stump with associated swelling redness and reported discharge. There was a large wound present on his right stump with a black eschar present as well. A CT scan of the right leg demonstrated cellulitis with a 2.2 x 1.7 x 1.0 cm loculated fluid collection along the tibial ostomy margin which is concerning for an abscess. In the context of these issues / problems, he was admitted to the ICU for ongoing monitoring of his DKA with the use of the insulin drip as well as broad-spectrum IV antibiotic therapy after appropriate cultures were obtained for his presumed right stump cellulitis/abscess. Surgery was consulted with regard to the a for mentioned right stump abscess and further intervention if needed. Renal consultation was requested due to his end-stage sheldon
[2022-07-28] MEDS: HYDROcodone/acetaminophen (*CRX) 5-325 MG TABLET 1 TAB PO (15:04)
[2022-07-28] MEDS: LIDO 1%/EPINEPHRINE 1:100,000 10 ML VIAL 2 ML INFILTRATE (15:25)
[2022-07-28 16:22] LABS: Glucose Point of Care 244 mg/dl (65-105)
[2022-07-28 17:05] LABS: Glucose Point of Care 172 mg/dl (65-105)
[2022-07-28 17:43] LABS: Anion Gap 14 mmol/L (8-16); Blood Urea Nitrogen 68 mg/dL (9-20); Carbon Dioxide 20 mmol/L (22-30); Chloride 98 mmol/L (98-107); Estimated CRCL calculation 10 ml/min; Estimated Glomerular Filt Rate 10; Glucose 184 mg/dL (65-110); Potassium 3.8 mmol/L (3.4-5.0); Sodium 132 mmol/L (137-145)
[2022-07-28 18:01] LABS: Glucose Point of Care 119 mg/dl (65-105)
[2022-07-28] MEDS: INSULIN GLARGINE (*BKC) 100 UNITS/ML 20 UNITS SUB-Q (18:34)
[2022-07-28 19:01] LABS: Glucose Point of Care 104 mg/dl (65-105)
[2022-07-28 20:32] LABS: Glucose Point of Care 51 mg/dl (65-105)
[2022-07-28] MEDS: DEXTROSE 50% 25 GM/50 ML SYRINGE IV PUSH ×2 (20:32→23:46)
[2022-07-28 20:56] LABS: Glucose Point of Care 108 mg/dl (65-105)
[2022-07-28] MEDS: LORazepam (*CRX) 1 MG TABLET PO (21:44)
[2022-07-28] MEDS: carvediloL 3.125 MG TABLET PO (22:30)
[2022-07-28 23:36] LABS: Glucose Point of Care 32 mg/dl (65-105)
[2022-07-28] MEDS: DEXTROSE 10% 1,000 ML 30 ML IV CONT (23:47)
[2022-07-29] VITALS (49 sets, daily range): BP systolic 91–143; BP diastolic 47–80; PULSE 78–104; RESP 16–30; TEMP 36–37.8; O2SAT 96–100; BMI 18.3
[2022-07-29 01:00] LABS: Glucose Point of Care 83 mg/dl (65-105)
[2022-07-29 03:44] LABS: Glucose Point of Care 33 mg/dl (65-105)
[2022-07-29] MEDS: GLUCAGON FOR INJ 1 MG VIAL IM (03:52)
[2022-07-29] MEDS: DEXTROSE 50% 25 GM/50 ML SYRINGE IV PUSH (04:00)
[2022-07-29 04:23] LABS: Basophils Absolute Auto 0.1 K/mm3 (0.0-0.1); Basophils Percent Auto 0.4 % (0.2-1.2); Eosinophils Absolute Auto 0.3 K/mm3 (0-0.3); Eosinophils Percent Auto 1.7 % (0-4.4); Hematocrit 24.3 % (42.0-52.0); Hemoglobin 7.7 g/dL (14.0-18.0); Immature Granulocyte Absolute 0.09 K/mm3 (0.00-0.031); Immature Granulocyte Percent A 0.5 % (0-0.5); Lymphocytes Absolute Auto 1.12 K/mm3 (0.9-3.2); Lymphocytes Percent Auto 6.8 % (18.3-44.2); Mean Corpuscular HGB Conc 31.7 g/dl (32-36); Mean Corpuscular Hemoglobin 30.2 pg (26-34); Mean Corpuscular Volume 95.3 fl (80-100); Mean Platelet Volume 9.4 fl (7.4-10.4); Monocytes Absolute Auto 0.9 K/mm3 (0.1-0.6); Monocytes Percent Auto 5.1 % (2.6-8.5); Neutrophils Absolute Auto 14.2 K/mm3 (1.3-6.7); Neutrophils Percent Auto 85.5 % (45.5-73.1); Platelet Count Result 707 k/mm3 (150-375); Red Blood Count 2.55 M/mm3 (4.6-6.20); Red Cell Distribution Width 16.9 % (11.5-14.5); White Blood Count 16.6 K/mm3 (4.5-10.0)
[2022-07-29 04:28] LABS: Alanine Aminotransferase 14 U/L (6-50); Albumin Level 2.3 g/dL (3.5-5.1); Alkaline Phosphatase 64 U/L (38-126); Anion Gap 17 mmol/L (8-16); Aspartate Amino Transferase 37 U/L (17-59); Bilirubin,Total 0.3 mg/dL (0.2-1.3); Blood Urea Nitrogen 68 mg/dL (9-20); Calcium 7.6 mg/dL (8.4-10.2); Carbon Dioxide 19 mmol/L (22-30); Chloride 98 mmol/L (98-107); Estimated CRCL calculation 9 ml/min; Estimated Glomerular Filt Rate 9; Glucose 188 mg/dL (65-110); Magnesium 1.9 mg/dL (1.6-2.3); Phosphorus 6.3 mg/dL (2.5-4.5); Potassium 4.4 mmol/L (3.4-5.0); Sodium 134 mmol/L (137-145)
[2022-07-29 05:14] LABS: Glucose Point of Care 227 mg/dl (65-105)
[2022-07-29 06:29] LABS: Glucose Point of Care 207 mg/dl (65-105)
[2022-07-29 08:37] LABS: Glucose Point of Care 163 mg/dl (65-105)
--- NOTE | 2022-07-29 08:39 | PM.PNGS ---
Progress Note: A&P Assessment and Plan (1) Abscess of right leg: Code(s): L02.415 - Cutaneous abscess of right lower limb Status: Acute Assessment and Plan: await for wound to declare, cont to follow for now, await cx, cont IV abx, local wound care, suspect will likely need revision to AKA (2) Pressure ulcer: Code(s): L89.90 - Pressure ulcer of unspecified site, unspecified stage Status: Acute Assessment and Plan: no s/s active infection, pressure off loading, local wound care Subjective Subjective Date/Time Seen: 07/29/22 08:39 no acute issues, resting comfortably Review of Systems Review of Systems: All systems reviewed & are unremarkable except as noted in HPI and below Exam Const: General: cooperative, comfortable, no acute distress and ill appearing Resp: Auscultation: clear to auscultation bilaterally Cardio: Rate: regular rate Rhythm: regular rhythm GI: Inspection: normal to inspection Skin: Other: R stump - drsg C/D/I Objective Data Vital Signs Vital Signs: Vital Signs - 24 hr 07/28/22 08:48 07/28/22 09:51 07/28/22 11:08 Temperature Pulse Rate 93 91 91 Respiratory Rate 17 18 18 Blood Pressure 126/55 L 132/52 L 141/58 H Pulse Oximetry 98 96 97 Oxygen Delivery 07/28/22 12:00 07/28/22 14:00 07/28/22 14:00 Temperature 36.7 C Pulse Rate 90 81 76 Respiratory Rate 20 18 Blood Pressure 152/58 H 155/56 H Pulse Oximetry 96 99 Oxygen Delivery 07/28/22 16:00 07/28/22 16:00 07/28/22 16:00 Temperature 36.6 C Pulse Rate 79 78 Respiratory Rate 16 Blood Pressure 105/57 L Pulse Oximetry 100 100 Oxygen Delivery Room Air 07/28/22 18:00 07/28/22 18:00 07/28/22 20:00 Temperature Pulse Rate 79 79 86 Respiratory Rate 18 Blood Pressure 120/60 Pulse Oximetry 98 Oxygen Delivery 07/28/22 20:00 07/28/22 20:00 07/28/22 22:00 Temperature 36.8 C Pulse Rate 86 84 84 Respiratory Rate 18 17 Blood Pressure 105/47 L Pulse Oximetry 98 100 Oxygen Delivery Room Air 07/28/22 22:00 07/28/22 23:21 07/28/22 23:24 Temperature Pulse Rate 82 93 93 Respiratory Rate 18 18 Blood Pressure 119/69 Pulse Oximetry 100 100 Oxygen Delivery Room Air 07/29/22 00:00 07/29/22 02:00 07/29/22 02:00 Temperature Pulse Rate 85 85 87 Respiratory Rate 24 H 24 H Blood Pressure 112/55 L 121/64 Pulse Oximetry 97 97 Oxygen Delivery 07/29/22 04:00 07/29/22 04:00 07/29/22 04:00 Temperature 37.1 C Pulse Rate 78 78 79 Respiratory Rate 24 H 22 H Blood Pressure 99/54 L Pulse Oximetry 98 98 Oxygen Delivery Room Air 07/29/22 06:00 07/29/22 06:00 07/29/22 08:00 Temperature 36.9 C Pulse Rate 79 80 Respiratory Rate 22 H Blood Pressure 131/60 Pulse Oximetry 98 Oxygen Delivery Intake/Output Intake/Output: Intake & Output 07/26/22 07/27/22 07/28/22 07/29/22 23:59 23:59 23:59 23:59 Intake Total 2200 250 Balance 2200 250 Meds/Results Medications: Active Medications Generic Name Dose Route Start Last Admin Trade Name Freq PRN Reason Stop Dose Admin Hydrocodone Bitart/Acetaminophen 1 tab 07/28/22 14:57 07/28/22 15:04 Hydrocodone/Acetaminophen (*Crx) 5-325 Mg Tablet PO 1 tab Q6H PRN Administration Pain Rated 4-6 Albuterol 1 puff 07/28/22 21:24 Albuterol Sulfate (*Sp) Aerosol 1 Puff INHALATION Q6H PRN Shortness Of Breath Aspirin 81 mg 07/29/22 09:00 Aspirin 81 Mg Enteric Tablet PO QAM MARTHA Atorvastatin Calcium 80 mg 07/29/22 09:00 Atorvastatin 40 Mg Tablet PO DAILY MARTHA Carvedilol 3.125 mg 07/28/22 21:30 07/28/22 22:30 Carvedilol 3.125 Mg Tablet PO 3.125 mg Q12HR MARTHA Administration Dextrose 12.5 gm 07/28/22 18:21 07/29/22 04:00 Dextrose 50% 25 Gm/50 Ml Syringe IV PUSH 12.5 gm PRN PRN Administration Hypoglycemia Protocol Epoetin Johnnie-epbx 10,000 units 07/29/22 22:51 Epoet
[2022-07-29 08:48] LABS: Glucose Point of Care 161 mg/dl (65-105)
[2022-07-29 10:21] LABS: Glucose Point of Care 131 mg/dl (65-105)
[2022-07-29] MEDS: NICOTINE (*PBKC) 21 MG PATCH 1 PATCH TRANSDERM (10:29)
[2022-07-29] MEDS: ATORVASTATIN 40 MG TABLET 80 MG PO (10:30)
[2022-07-29] MEDS: VITAMIN B CMPLX/VIT C/FOLIC AC 1 CAPSULE 1 CAP PO (10:30)
[2022-07-29] MEDS: CHOLECALCIFEROL 1,000 UNITS TABLET 1000 UNITS PO (10:30)
[2022-07-29] MEDS: carvediloL 3.125 MG TABLET PO ×2 (10:30→20:56)
[2022-07-29] MEDS: SERTRALINE HCL 50 MG TABLET 100 MG PO (10:30)
[2022-07-29] MEDS: TICAGRELOR 60 MG TABLET PO ×2 (10:31→17:04)
[2022-07-29] MEDS: ASPIRIN 81 MG ENTERIC TABLET PO (10:31)
[2022-07-29] MEDS: GABAPENTIN 300 MG CAPSULE PO (10:31)
[2022-07-29] MEDS: LORazepam (*CRX) 1 MG TABLET PO ×3 (10:34→22:03)
[2022-07-29] MEDS: HYDROcodone/acetaminophen (*CRX) 5-325 MG TABLET 1 TAB PO ×3 (10:34→18:27)
[2022-07-29] MEDS: MUPIROCIN 2% OINT 22 GM TUBE 1 APPLIC TOPICAL ×2 (10:38→21:13)
--- NOTE | 2022-07-29 11:14 | WPDINTPN ---
Progress Note: A&P Assessment and Plan (1) DKA (diabetic ketoacidoses): Qualifiers: Diabetes mellitus complication detail: without coma Diabetes mellitus type: type 1 Qualified Code(s): E10.10 - Type 1 diabetes mellitus with ketoacidosis without coma Code(s): E11.10 - Type 2 diabetes mellitus with ketoacidosis without coma Status: Resolved Assessment and Plan: Patient presented with hyperglycemia with blood sugars of 890 in the ER on admission on 07/28/2022. Elevated beta hydroxybutyrate, anion gap metabolic acidosis -patient was given 2.5 L IV fluids and started on insulin infusion per DKA protocol -not giving him any maintenance IV fluids at this time as he is a dialysis patient -patient was transition to long-acting insulin and sliding scale insulin, was hypoglycemic requiring D10 which is currently off -patient now has been transitioned to home Lantus, sliding scale insulin diabetic diet (2) Abscess of right leg: Code(s): L02.415 - Cutaneous abscess of right lower limb Status: Acute Assessment and Plan: Patient complained of right BKA stump pain, redness, swelling, discharge -07/28/[address] scan : Likely cellulitis with 2.2 x 1.7 x 1.0 cm loculated fluid collection along the tibial osteotomy margin which is concerning for abscess with differential including an aseptic bursa. Consider aspiration with Gram stain and culture of the fluid collection. No erosions or loss of marrow fat signal at the osteotomy margin to suggest osteomyelitis. -appreciate surgery evaluation, surgery aspirated fluid from the abscess and sent for culture. Patient will need revision to right BKA - continue vancomycin and Zosyn (07/28) -07/28 blood cultures will be obtained -07/28 abscess cultures obtained and pending (3) Sepsis: Qualifiers: Acute respiratory failure type: unspecified Sepsis acute organ dysfunction status: with acute organ dysfunction Sepsis type: sepsis due to unspecified organism Severe sepsis acute organ dysfunction type: acute respiratory failure Severe sepsis shock status: unspecified Qualified Code(s): A41.9 - Sepsis, unspecified organism; R65.20 - Severe sepsis without septic shock; J96.00 - Acute respiratory failure, unspecified whether with hypoxia or hypercapnia Code(s): A41.9 - Sepsis, unspecified organism Status: Acute Assessment and Plan: Patient with leukocytosis, right BKA stump abscess, hyperglycemia -continue antibiotics as above -blood pressures have been stable -continue to monitor (4) End-stage renal disease on hemodialysis: Code(s): N18.6 - End stage renal disease; Z99.2 - Dependence on renal dialysis Status: Acute Assessment and Plan: History of end-stage renal disease on dialysis, Mondays, with disease, Fridays and Saturdays -nephrology has been consulted, dialysis per Nephrology Patient did receive dialysis on 07/27 (5) Pressure ulcer: Code(s): L89.90 - Pressure ulcer of unspecified site, unspecified stage Status: Acute Assessment and Plan: Pressure ulcer with eschar formation on the buttocks -wound care is following, -surgery following the patient, recommended offloading pressure and local wound care Plan DVT prophylaxis: No chemoprophylaxis patient is anemic Stress ulcer prophylaxis: None Nutrition: Will start diabetic diet along with supplements Code Status: Full code Critical Care Time Spent: 33 minutes Due to a high probability of clinically significant, life threatening deterioration, the patient required my highest level of preparedness to intervene emergently and I personally spent this critical care time directly and personally managing the patient. This critical care time included obtaining a history; examining the patient; pulse oximetry; ordering and review of studies; arranging urgent treatment with development of a management plan; evaluation of patient's response to
[2022-07-29 12:34] LABS: Glucose Point of Care 158 mg/dl (65-105)
[2022-07-29 12:55] LABS: Glucose Point of Care 150 mg/dl (65-105)
--- NOTE | 2022-07-29 14:26 | P.PNNP_ITS ---
Progress Note: A&P Assessment and Plan (1) ESRD (end stage renal disease): Code(s): N18.6 - End stage renal disease Status: Chronic Assessment and Plan: * HD today * continue 4x/week schedule of M/W/F/Sat * follow electrolytes, volume status, and clearance * plan HD tomorrow as well (2) DKA (diabetic ketoacidoses): Qualifiers: Diabetes mellitus complication detail: without coma Diabetes mellitus type: type 1 Qualified Code(s): E10.10 - Type 1 diabetes mellitus with ketoacidosis without coma Code(s): E11.10 - Type 2 diabetes mellitus with ketoacidosis without coma Status: Resolved Assessment and Plan: * resolved * noted blood sugar of 890 on presentation with elevated beta hydroxybutyrate and anion gap metabolic acidosis * s/p IVF resuscitation in ER (~ 2.5L IVFs given) * off insulin gtt (3) Abscess of right leg: Code(s): L02.415 - Cutaneous abscess of right lower limb Status: Acute Assessment and Plan: * small fluid collection at right BKA stump by CT scan * large ulcer at right BKA stump with black eschar * on IV antibiotics * General Surgery following - s/p needle aspiration/drainage (07/28/22) * local wound care (4) Hypertension: Code(s): I10 - Essential (primary) hypertension Status: Inactive Assessment and Plan: * has been quite erratic in the past * history of HTN urgency leading to flash pulmonary edema and acute respiratory distress (usually requiring intubation) * this has been better controlled with dialysis 4 days/week * follow trend of hemodynamics (5) Anemia: Code(s): D64.9 - Anemia, unspecified Status: Chronic Assessment and Plan: * due to ESRD and acute illness/infection * Epogen with HD * follow trend of H/H (6) IDDM (insulin dependent diabetes mellitus): Status: Chronic Assessment and Plan: * see #2 * follow accuchecks * glycemic control Will continue to follow. Subjective Date/time seen: 07/29/22 14:26 Tolerating dialysis treatment at the time of my visit (seen on HD at ~ 2:15PM); issues with hypoglycemia overnight when switched to SQ insulin (long acting + SSI) that required use of D10 IVFs -- this led to hyperglycemia this AM; awake a nd alert; remains hemodynamically stable; no apparent distress voiced currently; s/p bedside needle aspiration/drainage of right stump abscess by Surgery yesterday. Exam Narrative: General: WD/WN male in NAD Heart: normal S1 and S2; no rub Lungs: clear anteriorly but decreased at bases Abdomen: soft, nontender, nondistended, positive bowel sounds Extremities: no cyanosis or clubbing; no edema; s/p left AKA and right BKA Skin: right stump with eschar - warm/erythematous and tender to touch Objective Data Vital Signs Vital Signs: Vital Signs Temp Pulse Resp BP Pulse Ox O2 Del Method 07/29/22 13:55 36.8 C 83 18 112/56 L 98 07/29/22 12:15 79 19 100 07/29/22 12:02 79 100 07/29/22 12:13 36.9 C 07/29/22 12:01 78 122/73 100 07/29/22 12:00 83 07/29/22 11:58 79 100 07/29/22 08:30 79 17 100 07/29/22 03:30 87 22 H 100 07/29/22 03:16 84 26 H 100 07/29/22 03:07 82 22 H 100 07/29/22 02:48 83 22 H 100 07/29/22 02:30 82 2
--- NOTE | 2022-07-29 14:26 | PM.PNNEP ---
Progress Note: A&P Assessment and Plan (1) ESRD (end stage renal disease): Code(s): N18.6 - End stage renal disease Status: Chronic Assessment and Plan: HD today continue 4x/week schedule of M/W/F/Sat follow electrolytes, volume status, and clearance plan HD tomorrow as well (2) DKA (diabetic ketoacidoses): Qualifiers: Diabetes mellitus complication detail: without coma Diabetes mellitus type: type 1 Qualified Code(s): E10.10 - Type 1 diabetes mellitus with ketoacidosis without coma Code(s): E11.10 - Type 2 diabetes mellitus with ketoacidosis without coma Status: Resolved Assessment and Plan: resolved noted blood sugar of 890 on presentation with elevated beta hydroxybutyrate and anion gap metabolic acidosis s/p IVF resuscitation in ER (~ 2.5L IVFs given) off insulin gtt (3) Abscess of right leg: Code(s): L02.415 - Cutaneous abscess of right lower limb Status: Acute Assessment and Plan: small fluid collection at right BKA stump by CT scan large ulcer at right BKA stump with black eschar on IV antibiotics General Surgery following - s/p needle aspiration/drainage (07/28/22) local wound care (4) Hypertension: Code(s): I10 - Essential (primary) hypertension Status: Inactive Assessment and Plan: has been quite erratic in the past history of HTN urgency leading to flash pulmonary edema and acute respiratory distress (usually requiring intubation) this has been better controlled with dialysis 4 days/week follow trend of hemodynamics (5) Anemia: Code(s): D64.9 - Anemia, unspecified Status: Chronic Assessment and Plan: due to ESRD and acute illness/infection Epogen with HD follow trend of H/H (6) IDDM (insulin dependent diabetes mellitus): Status: Chronic Assessment and Plan: see #2 follow accuchecks glycemic control Will continue to follow. Subjective Date/time seen: 07/29/22 14:26 Tolerating dialysis treatment at the time of my visit (seen on HD at ~ 2:15PM); issues with hypoglycemia overnight when switched to SQ insulin (long acting + SSI) that required use of D10 IVFs -- this led to hyperglycemia this AM; awake and alert; remains hemodynamically stable; no apparent distress voiced currently; s/p bedside needle aspiration/drainage of right stump abscess by Surgery yesterday. Exam Narrative: General: WD/WN male in NAD Heart: normal S1 and S2; no rub Lungs: clear anteriorly but decreased at bases Abdomen: soft, nontender, nondistended, positive bowel sounds Extremities: no cyanosis or clubbing; no edema; s/p left AKA and right BKA Skin: right stump with eschar - warm/erythematous and tender to touch Objective Data Vital Signs Vital Signs: Vital Signs Temp Pulse Resp BP Pulse Ox O2 Del Method 07/29/22 13:55 36.8 C 83 18 112/56 L 98 07/29/22 12:15 79 19 100 07/29/22 12:02 79 100 07/29/22 12:13 36.9 C 07/29/22 12:01 78 122/73 100 07/29/22 12:00 83 07/29/22 11:58 79 100 07/29/22 08:30 79 17 100 07/29/22 03:30 87 22 H 100 07/29/22 03:16 84 26 H 100 07/29/22 03:07 82 22 H 100 07/29/22 02:48 83 22 H 100 07/29/22 02:30 82 23 H 100 07/29/22 02:16 82 21 H 100 07/29/22 02:01 81 20 121/64 100 07/29/22 02:00 81 21 H 99 07/29/22 01:45 82 26 H 100 07/29/22 01:30 83 23 H 100 07/29/22 01:16 84 22 H 100 07/29/22 01:00 84 24 H 100 07/29/22 00:45 84 27 H 100 07/29/22 00:30 84 24 H 100 07/29/22 00:15 84 25 H 99 07/29/22 00:01 86 30 H 112/55 L 98 07/29/22 00:00 86 30 H 97 07/28/22 23:45 91 31 H 98 07/28/22 23:30 97 25 H 100 07/28/22 23:15 89 16 07/28/22 23:00 90 25 H 100 07/28/22 22:45 86 20 95 07/28/22 22:30 85 21 H 99 07/28/22 22:15
--- NOTE | 2022-07-29 15:05 | PCPTNOTE ---
Pt getting dialysis at this time. Will follow.
[2022-07-29] MEDS: HEPARIN SODIUM 1,000 UNITS/ML VIAL 6000 UNITS (16:23)
[2022-07-29] MEDS: SODIUM CHLORIDE 0.9% IV 1,000 ML 999 ML IV CONT (16:24)
[2022-07-29] MEDS: INSULIN ASPART (*BKC) 100 UNITS/ML SUB-Q ×2 (17:08→20:55)
[2022-07-29 17:15] LABS: Glucose Point of Care 221 mg/dl (65-105)
[2022-07-29 19:03] LABS: Hepatitis B Surface Anti Res Positive
[2022-07-29 20:47] LABS: Glucose Point of Care 225 mg/dl (65-105)
[2022-07-29] MEDS: INSULIN GLARGINE (*BKC) 100 UNITS/ML 6 UNITS SUB-Q (20:57)
[2022-07-29 21:09] LABS: Vancomycin Random 11.9 ug/mL (10-20)
[2022-07-29] MEDS: rOPINIRole HCL 0.25 MG TABLET PO (21:25)
--- NOTE | 2022-07-29 21:40 | PC.NURSE ---
transfered to 313 in bed, report given to Levi Sims. Pt verb no complaints
[2022-07-29 22:41] LABS: Glucose Point of Care 282 mg/dl (65-105)
[2022-07-29] MEDS: INSULIN ASPART (*BKC) 100 UNITS/ML 6 UNITS SUB-Q (23:21)
[2022-07-30] VITALS (18 sets, daily range): BP systolic 118–170; BP diastolic 51–84; PULSE 78–102; RESP 17–20; TEMP 36–38.1; O2SAT 94–98
[2022-07-30 01:10] LABS: Glucose Point of Care 204 mg/dl (65-105)
[2022-07-30] MEDS: HYDROcodone/acetaminophen (*CRX) 5-325 MG TABLET 1 TAB PO ×3 (01:33→17:46)
[2022-07-30] MEDS: INSULIN ASPART (*BKC) 100 UNITS/ML SUB-Q ×3 (01:51→21:19)
[2022-07-30 06:36] LABS: Glucose Point of Care 113 mg/dl (65-105)
[2022-07-30 06:52] LABS: Basophils Absolute Auto 0.1 K/mm3 (0.0-0.1); Basophils Percent Auto 0.4 % (0.2-1.2); Eosinophils Absolute Auto 0.2 K/mm3 (0-0.3); Eosinophils Percent Auto 1.5 % (0-4.4); Hematocrit 23.9 % (42.0-52.0); Hemoglobin 7.3 g/dL (14.0-18.0); Immature Granulocyte Absolute 0.08 K/mm3 (0.00-0.031); Immature Granulocyte Percent A 0.5 % (0-0.5); Lymphocytes Absolute Auto 1.45 K/mm3 (0.9-3.2); Lymphocytes Percent Auto 9.1 % (18.3-44.2); Mean Corpuscular HGB Conc 30.5 g/dl (32-36); Mean Corpuscular Volume 98.4 fl (80-100); Mean Platelet Volume 9.9 fl (7.4-10.4); Neutrophils Absolute Auto 13.1 K/mm3 (1.3-6.7); Neutrophils Percent Auto 82.5 % (45.5-73.1); Platelet Count Result 676 k/mm3 (150-375); Red Blood Count 2.43 M/mm3 (4.6-6.20); Red Cell Distribution Width 17.3 % (11.5-14.5); White Blood Count 15.9 K/mm3 (4.5-10.0)
[2022-07-30 07:09] LABS: Alanine Aminotransferase 16 U/L (6-50); Albumin Level 2.7 g/dL (3.5-5.1); Alkaline Phosphatase 76 U/L (38-126); Anion Gap 15 mmol/L (8-16); Aspartate Amino Transferase 31 U/L (17-59); Bilirubin,Total 0.3 mg/dL (0.2-1.3); Blood Urea Nitrogen 51 mg/dL (9-20); Carbon Dioxide 24 mmol/L (22-30); Chloride 97 mmol/L (98-107); Estimated CRCL calculation 14 ml/min; Estimated Glomerular Filt Rate 12; Glucose 120 mg/dL (65-110); Magnesium 2.1 mg/dL (1.6-2.3); Phosphorus 6.1 mg/dL (2.5-4.5); Potassium 4.1 mmol/L (3.4-5.0); Sodium 136 mmol/L (137-145)
[2022-07-30 07:27] LABS: Glucose Point of Care 152 mg/dl (65-105)
[2022-07-30] MEDS: LORazepam (*CRX) 1 MG TABLET PO ×2 (08:50→21:56)
[2022-07-30] MEDS: carvediloL 3.125 MG TABLET PO ×2 (09:45→21:21)
[2022-07-30] MEDS: ATORVASTATIN 40 MG TABLET 80 MG PO (09:45)
[2022-07-30] MEDS: ASPIRIN 81 MG ENTERIC TABLET PO (09:45)
[2022-07-30] MEDS: GABAPENTIN 300 MG CAPSULE PO (09:46)
[2022-07-30] MEDS: CHOLECALCIFEROL 1,000 UNITS TABLET 1000 UNITS PO (09:46)
[2022-07-30] MEDS: NICOTINE (*PBKC) 21 MG PATCH 1 PATCH TRANSDERM (09:46)
[2022-07-30] MEDS: TICAGRELOR 60 MG TABLET PO ×2 (09:46→17:46)
[2022-07-30] MEDS: SERTRALINE HCL 50 MG TABLET 100 MG PO (09:46)
[2022-07-30] MEDS: VITAMIN B CMPLX/VIT C/FOLIC AC 1 CAPSULE 1 CAP PO (09:46)
[2022-07-30] MEDS: INSULIN GLARGINE (*BKC) 100 UNITS/ML SUB-Q (09:47)
[2022-07-30] MEDS: MUPIROCIN 2% OINT 22 GM TUBE 1 APPLIC TOPICAL ×2 (09:47→21:21)
--- NOTE | 2022-07-30 10:19 | PM.IMPN ---
Progress Note: A&P Assessment and Plan (1) DKA (diabetic ketoacidoses): Qualifiers: Diabetes mellitus type: type 1 Diabetes mellitus complication detail: without coma Qualified Code(s): E10.10 - Type 1 diabetes mellitus with ketoacidosis without coma Code(s): E11.10 - Type 2 diabetes mellitus with ketoacidosis without coma Status: Resolved Assessment and Plan: -the patient was given 2.5 L of IV fluids in the emergency room. No further maintenance IV fluids are required as the patient frequently goes and pulmonary edema and he is end-stage renal disease patient with dialysis on Monday and Monday. The railway signal electrician has been consulted and the patient is in the ICU. The patient will be transitioned to long-acting insulin and sliding scale insulin once his anion gap closes. 07/30/2022 interval history: pataient with ESTD on HD presented with general malaise and was found to have DKA was admitted in ICU and patient was vigorously hydrated and started on insulin infusion, his blood sugars have improved and he is now on long acting insulin and sliding scale, he is seen by his nephrologst and will have scheduled dialysis, patient has right knee BKA and now have developed wound and drainage, seen by general surgery service recommended conservative management for now wound is growing E coli and will continue Zosyn and Vancomycin pending wound senitivity and blood culture, patient remains clinically will CPM and monitor. (2) Sepsis: Qualifiers: Sepsis type: sepsis due to unspecified organism Sepsis acute organ dysfunction status: with acute organ dysfunction Severe sepsis acute organ dysfunction type: acute respiratory failure Acute respiratory failure type: unspecified Severe sepsis shock status: unspecified Qualified Code(s): A41.9 - Sepsis, unspecified organism; R65.20 - Severe sepsis without septic shock; J96.00 - Acute respiratory failure, unspecified whether with hypoxia or hypercapnia Code(s): A41.9 - Sepsis, unspecified organism Status: Acute Assessment and Plan: -due to abscess to right leg. -wound cultures and blood cultures are pending. -the patient was started on cefepime, Flagyl, and vancomycin. The antibiotics were changed to Zosyn and vanco. -continue to monitor vital signs. -monitor labs -the patient is in ICU being monitored by the railway signal electrician. 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 -nephrology consultation greatly be appreciated. Subjective Date/time seen: 07/30/22 10:19 Chief Complaint: General malaise and high blood sugar. HPI-Narrative: This is a 56-year-old male patient with end-stage renal disease with dialysis on Monday we Monday and Monday.? [facility] The patient has been hospitalized multiple times in the past with the last 1 being [facility].? The patient has been dealing with infection to his right [id number] stump.? Patient has necrotic tissue to the right [id number] amputation as well as on his buttocks.? The patient stated that he has been incontinent of stool and that he does not get cleaned as well as he would like to be.? The patient also stated that he has not had his dressing changed to his stump in several days.? The patient is dissatisfied with the care that he has been receiving at the alf.? The patient stated that his blood sugars have been running high most the time.? There has also been some drainage from that to right stump.? Knee x-ray was read as the following today?Likely cellulitis with 2.2 x 1.7 x 1.0 cm loculated fluid collection along the tibial osteotomy margin which is concerning for abscess with differential including an aseptic bursa. C
--- NOTE | 2022-07-30 10:34 | PCPTNOTE ---
Pt at dialysis for 2nd day. Will follow.
--- NOTE | 2022-07-30 11:16 | PCOTNOTE ---
Attempted OT evaluation. Patient in dialysis. Will continue to attempt.
[2022-07-30] MEDS: SODIUM CHLORIDE 0.9% IV 1,000 ML 999 ML IV CONT (11:51)
[2022-07-30] MEDS: EPOETIN ALFA-EPBX 10,000 UNITS/ML VIAL 10000 UNITS IV PUSH (11:52)
--- NOTE | 2022-07-30 12:52 | P.PNNP_ITS ---
Progress Note: A&P Assessment and Plan (1) ESRD (end stage renal disease): Code(s): N18.6 - End stage renal disease Status: Chronic Assessment and Plan: * HD today * continue 4x/week schedule of M/W/F/Sat * follow electrolytes, volume status, and clearance (2) DKA (diabetic ketoacidoses): Qualifiers: Diabetes mellitus type: type 1 Diabetes mellitus complication detail: without coma Qualified Code(s): E10.10 - Type 1 diabetes mellitus with ketoacidosis without coma Code(s): E11.10 - Type 2 diabetes mellitus with ketoacidosis without coma Status: Resolved Assessment and Plan: * resolved * noted blood sugar of 890 on presentation with elevated beta hydroxybutyrate and anion gap metabolic acidosis * s/p IVF resuscitation in ER (~ 2.5L IVFs given) * off insulin gtt (3) Abscess of right leg: Code(s): L02.415 - Cutaneous abscess of right lower limb Status: Acute Assessment and Plan: * small fluid collection at right BKA stump by CT scan * large ulcer at right BKA stump with black eschar * on IV antibiotics * General Surgery following - s/p needle aspiration/drainage (07/28/22) * follow culture data * local wound care (4) Hypertension: Code(s): I10 - Essential (primary) hypertension Status: Inactive Assessment and Plan: * has been quite erratic in the past * history of HTN urgency leading to flash pulmonary edema and acute respiratory distress (usually requiring intubation) * this has been better controlled with dialysis 4 days/week * follow trend of hemodynamics (5) Anemia: Code(s): D64.9 - Anemia, unspecified Status: Chronic Assessment and Plan: * due to ESRD and acute illness/infection * Epogen with HD * follow trend of H/H (6) IDDM (insulin dependent diabetes mellitus): Status: Chronic Assessment and Plan: * see #2 * follow accuchecks * glycemic control Will continue to follow. Subjective Date/time seen: 07/30/22 12:52 Tolerating hemodialysis treatment at the time of my visit (seen on HD at 12:40PM); tolerated dialysis treatment yesterday as well; transferred out of ICU as able to be DKA resolved and switched over to SQ insulin dosing; no apparent distress voiced. Exam Narrative: General: WD/WN male in NAD Heart: normal S1 and S2; no rub Lungs: clear anteriorly but decreased at bases Abdomen: soft, nontender, nondistended, positive bowel sounds Extremities: no cyanosis or clubbing; no edema; s/p left AKA and right BKA Skin: right stump with eschar - warm/erythematous and tender to touch Objective Data Vital Signs Vital Signs: Vital Signs Temp Pulse Resp BP Pulse Ox O2 Del Method 07/30/22 12:40 87 140/69 07/30/22 12:00 87 140/69 07/30/22 12:20 84 153/74 H 07/30/22 12:00 82 163/77 H 07/30/22 11:40 84 168/76 H 07/30/22 11:20 82 162/66 H 07/30/22 11:00 81 154/70 H 07/30/22 08:00 Room Air 07/30/22 10:40 83 144/69 H 07/30/22 10:20 83 166/77 H 07/30/22 10:08 94 170/84 H 07/30/22 10:02 37.2 C 100 18 141/72 H 07/30/22 09:45 78 07/30/22 06:00 37.3 C 91 18 153/51 H 98 07/30/22 00:00 37.2 C 102 H 17 118/52 L 98 07/29/22 22:00 37.
--- NOTE | 2022-07-30 12:52 | PM.PNNEP ---
Progress Note: A&P Assessment and Plan (1) ESRD (end stage renal disease): Code(s): N18.6 - End stage renal disease Status: Chronic Assessment and Plan: HD today continue 4x/week schedule of M/W/F/Sat follow electrolytes, volume status, and clearance (2) DKA (diabetic ketoacidoses): Qualifiers: Diabetes mellitus type: type 1 Diabetes mellitus complication detail: without coma Qualified Code(s): E10.10 - Type 1 diabetes mellitus with ketoacidosis without coma Code(s): E11.10 - Type 2 diabetes mellitus with ketoacidosis without coma Status: Resolved Assessment and Plan: resolved noted blood sugar of 890 on presentation with elevated beta hydroxybutyrate and anion gap metabolic acidosis s/p IVF resuscitation in ER (~ 2.5L IVFs given) off insulin gtt (3) Abscess of right leg: Code(s): L02.415 - Cutaneous abscess of right lower limb Status: Acute Assessment and Plan: small fluid collection at right BKA stump by CT scan large ulcer at right BKA stump with black eschar on IV antibiotics General Surgery following - s/p needle aspiration/drainage (07/28/22) follow culture data local wound care (4) Hypertension: Code(s): I10 - Essential (primary) hypertension Status: Inactive Assessment and Plan: has been quite erratic in the past history of HTN urgency leading to flash pulmonary edema and acute respiratory distress (usually requiring intubation) this has been better controlled with dialysis 4 days/week follow trend of hemodynamics (5) Anemia: Code(s): D64.9 - Anemia, unspecified Status: Chronic Assessment and Plan: due to ESRD and acute illness/infection Epogen with HD follow trend of H/H (6) IDDM (insulin dependent diabetes mellitus): Status: Chronic Assessment and Plan: see #2 follow accuchecks glycemic control Will continue to follow. Subjective Date/time seen: 07/30/22 12:52 Tolerating hemodialysis treatment at the time of my visit (seen on HD at 12:40PM); tolerated dialysis treatment yesterday as well; transferred out of ICU as able to be DKA resolved and switched over to SQ insulin dosing; no apparent distress voiced. Exam Narrative: General: WD/WN male in NAD Heart: normal S1 and S2; no rub Lungs: clear anteriorly but decreased at bases Abdomen: soft, nontender, nondistended, positive bowel sounds Extremities: no cyanosis or clubbing; no edema; s/p left AKA and right BKA Skin: right stump with eschar - warm/erythematous and tender to touch Objective Data Vital Signs Vital Signs: Vital Signs Temp Pulse Resp BP Pulse Ox O2 Del Method 07/30/22 12:40 87 140/69 07/30/22 12:00 87 140/69 07/30/22 12:20 84 153/74 H 07/30/22 12:00 82 163/77 H 07/30/22 11:40 84 168/76 H 07/30/22 11:20 82 162/66 H 07/30/22 11:00 81 154/70 H 07/30/22 08:00 Room Air 07/30/22 10:40 83 144/69 H 07/30/22 10:20 83 166/77 H 07/30/22 10:08 94 170/84 H 07/30/22 10:02 37.2 C 100 18 141/72 H 07/30/22 09:45 78 07/30/22 06:00 37.3 C 91 18 153/51 H 98 07/30/22 00:00 37.2 C 102 H 17 118/52 L 98 07/29/22 22:00 37.8 C H 104 H 18 115/51 L 96 07/29/22 20:56 80 07/29/22 19:33 90 16 98 Room Air 07/29/22 19:30 90 07/29/22 17:05 37.0 C 93 16 117/47 L 98 07/29/22 16:53 92 108/48 L 07/29/22 16:45 93 91/47 L 07/29/22 16:30 93 96/50 L 07/29/22 16:15 96 114/57 L 07/29/22 16:00 93 07/29/22 16:00 36.8 C 07/29/22 16:00 95 98/80 L Intake/Output Intake/Output: Intake & Output 07/27/22 07/28/22 07/29/22 07/30/22 23:59 23:59 23:59 23:59 Intake Total 2200 3290 540 Output Total 1667 2500 Balance 2200 1623 -1960 Meds/Results Medications: Active Medications Generic Name Dose Route
[2022-07-30] MEDS: HEPARIN SODIUM 1,000 UNITS/ML VIAL 5000 UNITS (13:14)
[2022-07-30 14:10] LABS: Glucose Point of Care 181 mg/dl (65-105)
[2022-07-30 15:40] LABS: Glucose Point of Care 251 mg/dl (65-105)
[2022-07-30 16:53] LABS: Glucose Point of Care 275 mg/dl (65-105)
[2022-07-30 20:44] LABS: Vancomycin Random 15.8 ug/mL (10-20)
[2022-07-30] MEDS: INSULIN GLARGINE (*BKC) 100 UNITS/ML 6 UNITS SUB-Q (21:19)
[2022-07-30] MEDS: rOPINIRole HCL 0.25 MG TABLET PO (21:21)
[2022-07-30 21:40] LABS: Glucose Point of Care 287 mg/dl (65-105)
[2022-07-31] MEDS: INSULIN ASPART (*BKC) 100 UNITS/ML SUB-Q ×2 (04:34→11:44)
[2022-07-31 04:59] LABS: Glucose Point of Care 321 mg/dl (65-105)
[2022-07-31 06:00] VITALS: BP 162/65; PULSE 95; RESP 18; TEMP 37.9; O2SAT 97
[2022-07-31 06:35] LABS: Hematocrit 25.4 % (42.0-52.0); Hemoglobin 7.7 g/dL (14.0-18.0); Mean Corpuscular HGB Conc 30.3 g/dl (32-36); Mean Corpuscular Hemoglobin 30.3 pg (26-34); Mean Platelet Volume 9.8 fl (7.4-10.4); Platelet Count Result 681 k/mm3 (150-375); Red Blood Count 2.54 M/mm3 (4.6-6.20); Red Cell Distribution Width 17.2 % (11.5-14.5)
[2022-07-31 06:42] LABS: Magnesium 2.1 mg/dL (1.6-2.3)
[2022-07-31 08:20] LABS: Glucose Point of Care 162 mg/dl (65-105)
[2022-07-31] MEDS: VITAMIN B CMPLX/VIT C/FOLIC AC 1 CAPSULE 1 CAP PO (09:35)
[2022-07-31] MEDS: ATORVASTATIN 40 MG TABLET 80 MG PO (09:35)
[2022-07-31] MEDS: GABAPENTIN 300 MG CAPSULE PO (09:35)
[2022-07-31] MEDS: CHOLECALCIFEROL 1,000 UNITS TABLET 1000 UNITS PO (09:35)
[2022-07-31] MEDS: TICAGRELOR 60 MG TABLET PO ×2 (09:35→16:32)
[2022-07-31] MEDS: ASPIRIN 81 MG ENTERIC TABLET PO (09:35)
[2022-07-31] MEDS: SERTRALINE HCL 50 MG TABLET 100 MG PO (09:36)
[2022-07-31] MEDS: NICOTINE (*PBKC) 21 MG PATCH 1 PATCH TRANSDERM (09:36)
[2022-07-31 09:37] VITALS: PULSE 100
[2022-07-31] MEDS: carvediloL 3.125 MG TABLET PO ×2 (09:37→21:29)
[2022-07-31 10:31] VITALS: BMI 11.0
[2022-07-31 11:23] LABS: Glucose Point of Care 329 mg/dl (65-105)
[2022-07-31 11:39] LABS: Albumin Level 2.6 g/dL (3.5-5.1); Anion Gap 14 mmol/L (8-16); Blood Urea Nitrogen 43 mg/dL (9-20); Calcium 8.6 mg/dL (8.4-10.2); Carbon Dioxide 25 mmol/L (22-30); Chloride 97 mmol/L (98-107); Estimated CRCL calculation 19 ml/min; Estimated Glomerular Filt Rate 17; Glucose 225 mg/dL (65-110); Phosphorus 5.1 mg/dL (2.5-4.5); Potassium 3.9 mmol/L (3.4-5.0); Sodium 136 mmol/L (137-145)
[2022-07-31] MEDS: INSULIN GLARGINE (*BKC) 100 UNITS/ML SUB-Q (11:40)
--- NOTE | 2022-07-31 12:02 | PM.IMPN ---
Progress Note: A&P Assessment and Plan (1) DKA (diabetic ketoacidoses): Qualifiers: Diabetes mellitus type: type 1 Diabetes mellitus complication detail: without coma Qualified Code(s): E10.10 - Type 1 diabetes mellitus with ketoacidosis without coma Code(s): E11.10 - Type 2 diabetes mellitus with ketoacidosis without coma Status: Resolved Assessment and Plan: -the patient was given 2.5 L of IV fluids in the emergency room. No further maintenance IV fluids are required as the patient frequently goes and pulmonary edema and he is end-stage renal disease patient with dialysis on Monday and Monday. The salon/spa manager has been consulted and the patient is in the ICU. The patient will be transitioned to long-acting insulin and sliding scale insulin once his anion gap closes. 07/31/2022 interval history: patient with ESRD on HD presented with general malaise and was found to have DKA was admitted in ICU and patient was vigorously hydrated and started on insulin infusion, his blood sugars have improved and he is now on long acting insulin and sliding scale, he is seen by his wealth management consultant and will have scheduled dialysis, patient has right knee BKA and now has developed wound and drainage, seen by general surgery service recommended conservative management for now wound is growing E coli and will continue Zosyn and Vancomycin pending wound sensitivity and blood culture, patient remains clinically will CPM and monitor. there are not new complaints and patient will be seen surgery services. (2) Sepsis: Qualifiers: Sepsis type: sepsis due to unspecified organism Sepsis acute organ dysfunction status: with acute organ dysfunction Severe sepsis acute organ dysfunction type: acute respiratory failure Acute respiratory failure type: unspecified Severe sepsis shock status: unspecified Qualified Code(s): A41.9 - Sepsis, unspecified organism; R65.20 - Severe sepsis without septic shock; J96.00 - Acute respiratory failure, unspecified whether with hypoxia or hypercapnia Code(s): A41.9 - Sepsis, unspecified organism Status: Acute Assessment and Plan: -due to abscess to right leg. -wound cultures and blood cultures are pending. -the patient was started on cefepime, Flagyl, and vancomycin. The antibiotics were changed to Zosyn and vanco. -continue to monitor vital signs. -monitor labs -the patient is in ICU being monitored by the salon/spa manager. 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 -nephrology consultation greatly be appreciated. Subjective Date/time seen: 07/31/22 12:02 07/31/2022 interval history: patient with ESRD on HD presented with general malaise and was found to have DKA was admitted in ICU and patient was vigorously hydrated and started on insulin infusion, his blood sugars have improved and he is now on long acting insulin and sliding scale, he is seen by his wealth management consultant and will have scheduled dialysis, patient has right knee BKA and now has developed wound and drainage, seen by general surgery service recommended conservative management for now wound is growing E coli and will continue Zosyn and Vancomycin pending wound sensitivity and blood culture, patient remains clinically will CPM and monitor. there are not new complaints and patient will be seen surgery services. Review of Systems Review of Systems: All systems reviewed & are unremarkable except as noted in HPI and below Exam Narrative: Appears chronically ill Patient is comfortable, NAD HEENT: eyes are clear and none icteric LUNGS: normal respiratory effort ABD: not distended Lower extremities: no edema SKIN: nonjaundiced Neuro: grossly intact. Objective Data Vital Signs Vital
--- NOTE | 2022-07-31 12:28 | P.PNNP_ITS ---
Progress Note: A&P Assessment and Plan (1) ESRD (end stage renal disease): Code(s): N18.6 - End stage renal disease Status: Chronic Assessment and Plan: * HD tomorrow * continue 4x/week schedule of M/W/F/Sat * follow electrolytes, volume status, and clearance (2) DKA (diabetic ketoacidoses): Qualifiers: Diabetes mellitus type: type 1 Diabetes mellitus complication detail: without coma Qualified Code(s): E10.10 - Type 1 diabetes mellitus with ketoacidosis without coma Code(s): E11.10 - Type 2 diabetes mellitus with ketoacidosis without coma Status: Resolved Assessment and Plan: * resolved * noted blood sugar of 890 on presentation with elevated beta hydroxybutyrate and anion gap metabolic acidosis * s/p IVF resuscitation in ER (~ 2.5L IVFs given) * off insulin gtt (3) Abscess of right leg: Code(s): L02.415 - Cutaneous abscess of right lower limb Status: Acute Assessment and Plan: * small fluid collection at right BKA stump by CT scan * large ulcer at right BKA stump with black eschar * on IV antibiotics * General Surgery following - s/p needle aspiration/drainage (07/28/22) * follow culture data * local wound care (4) Hypertension: Code(s): I10 - Essential (primary) hypertension Status: Inactive Assessment and Plan: * has been quite erratic in the past * history of HTN urgency leading to flash pulmonary edema and acute respiratory distress (usually requiring intubation) * this has been better controlled with dialysis 4 days/week * follow trend of hemodynamics (5) Anemia: Code(s): D64.9 - Anemia, unspecified Status: Chronic Assessment and Plan: * due to ESRD and acute illness/infection * Epogen with HD * follow trend of H/H (6) IDDM (insulin dependent diabetes mellitus): Status: Chronic Assessment and Plan: * see #2 * follow accuchecks * glycemic control Will continue to follow. Subjective Date/time seen: 07/31/22 12:28 Tolerated dialysis treatment yesterday without any issues or problems; more upset today by his fluctuating blood sugar and not being allowed to take his insulin like does at home; otherwise, no other acute complaints voiced; no apparent distress. Exam Narrative: General: WD/WN male in NAD Heart: normal S1 and S2; no rub Lungs: clear anteriorly Abdomen: soft, nontender, nondistended, positive bowel sounds Extremities: no cyanosis or clubbing; no edema; s/p left AKA and right BKA Skin: right stump with eschar - warm/erythematous and tender to touch Objective Data Vital Signs Vital Signs: Vital Signs Temp Pulse Resp BP Pulse Ox O2 Del Method 07/31/22 08:00 Room Air 07/31/22 10:31 Room Air 07/31/22 09:37 100 07/31/22 06:00 37.9 C H 95 18 162/65 H 97 07/30/22 20:00 86 19 97 Room Air 07/30/22 22:00 38.1 C H 86 19 168/78 H 97 Intake/Output Intake/Output: Intake & Output 07/28/22 07/29/22 07/30/22 07/31/22 23:59 23:59 23:59 23:59 Intake Total 2200 3290 1840 980 Output Total 1667 2500 Balance 2200 1623 -660 980 Meds/Results Medications: Active Medications Generic
--- NOTE | 2022-07-31 12:28 | PM.PNNEP ---
Progress Note: A&P Assessment and Plan (1) ESRD (end stage renal disease): Code(s): N18.6 - End stage renal disease Status: Chronic Assessment and Plan: HD tomorrow continue 4x/week schedule of M/W/F/Sat follow electrolytes, volume status, and clearance (2) DKA (diabetic ketoacidoses): Qualifiers: Diabetes mellitus type: type 1 Diabetes mellitus complication detail: without coma Qualified Code(s): E10.10 - Type 1 diabetes mellitus with ketoacidosis without coma Code(s): E11.10 - Type 2 diabetes mellitus with ketoacidosis without coma Status: Resolved Assessment and Plan: resolved noted blood sugar of 890 on presentation with elevated beta hydroxybutyrate and anion gap metabolic acidosis s/p IVF resuscitation in ER (~ 2.5L IVFs given) off insulin gtt (3) Abscess of right leg: Code(s): L02.415 - Cutaneous abscess of right lower limb Status: Acute Assessment and Plan: small fluid collection at right BKA stump by CT scan large ulcer at right BKA stump with black eschar on IV antibiotics General Surgery following - s/p needle aspiration/drainage (07/28/22) follow culture data local wound care (4) Hypertension: Code(s): I10 - Essential (primary) hypertension Status: Inactive Assessment and Plan: has been quite erratic in the past history of HTN urgency leading to flash pulmonary edema and acute respiratory distress (usually requiring intubation) this has been better controlled with dialysis 4 days/week follow trend of hemodynamics (5) Anemia: Code(s): D64.9 - Anemia, unspecified Status: Chronic Assessment and Plan: due to ESRD and acute illness/infection Epogen with HD follow trend of H/H (6) IDDM (insulin dependent diabetes mellitus): Status: Chronic Assessment and Plan: see #2 follow accuchecks glycemic control Will continue to follow. Subjective Date/time seen: 07/31/22 12:28 Tolerated dialysis treatment yesterday without any issues or problems; more upset today by his fluctuating blood sugar and not being allowed to take his insulin like does at home; otherwise, no other acute complaints voiced; no apparent distress. Exam Narrative: General: WD/WN male in NAD Heart: normal S1 and S2; no rub Lungs: clear anteriorly Abdomen: soft, nontender, nondistended, positive bowel sounds Extremities: no cyanosis or clubbing; no edema; s/p left AKA and right BKA Skin: right stump with eschar - warm/erythematous and tender to touch Objective Data Vital Signs Vital Signs: Vital Signs Temp Pulse Resp BP Pulse Ox O2 Del Method 07/31/22 08:00 Room Air 07/31/22 10:31 Room Air 07/31/22 09:37 100 07/31/22 06:00 37.9 C H 95 18 162/65 H 97 07/30/22 20:00 86 19 97 Room Air 07/30/22 22:00 38.1 C H 86 19 168/78 H 97 Intake/Output Intake/Output: Intake & Output 07/28/22 07/29/22 07/30/22 07/31/22 23:59 23:59 23:59 23:59 Intake Total 2200 3290 1840 980 Output Total 1667 2500 Balance 2200 1623 -660 980 Meds/Results Medications: Active Medications Generic Name Dose Route Start Last Admin Trade Name Freq PRN Reason Stop Dose Admin Hydrocodone Bitart/Acetaminophen 1 tab 07/28/22 14:57 07/31/22 13:44 Hydrocodone/Acetaminophen (*Crx) 5-325 Mg Tablet PO 1 tab Q6H PRN Administration Pain Rated 4-6 Albuterol 1 puff 07/28/22 21:24 Albuterol Sulfate (*Sp) Aerosol 1 Puff INHALATION Q6H PRN Shortness Of Breath Aspirin 81 mg 07/29/22 09:00 07/31/22 09:35 Aspirin 81 Mg Enteric Tablet PO 81 mg QAM MARTHA Administration Atorvastatin Calcium 80 mg 07/29/22 09:00 07/31/22 09:35 Atorvastatin 40 Mg Tablet PO 80 mg DAILY MARTHA Administration Carvedilol 3.125 mg 07/28/22 21:30 07/31/22 09:37 Carvedilol 3.125 Mg Tablet PO 3.125 mg Q12HR MARTHA Administra
[2022-07-31] MEDS: LORazepam (*CRX) 1 MG TABLET PO (13:44)
[2022-07-31] MEDS: HYDROcodone/acetaminophen (*CRX) 5-325 MG TABLET 1 TAB PO (13:44)
[2022-07-31 14:00] VITALS: BP 145/70; PULSE 104; RESP 20; TEMP 36.4; O2SAT 97
--- NOTE | 2022-07-31 14:57 | PC.NURSE ---
Pt continuously concerned about blood sugars. Pt has a dexcom that he watches regularly. Pt also received education on not eating a bunch of snacks that are carb loaded in between meals. Education provided that sugary treats will increase his blood sugar. Pt verbalized understanding. And then asked for vanilla wafers.
[2022-07-31 16:16] LABS: Glucose Point of Care 464 mg/dl (65-105)
[2022-07-31] MEDS: MUPIROCIN 2% OINT 22 GM TUBE 1 APPLIC TOPICAL ×2 (16:33→21:41)
[2022-07-31] MEDS: INSULIN ASPART (*BKC) 100 UNITS/ML 8 UNITS SUB-Q ×2 (16:49→18:41)
[2022-07-31 18:26] LABS: Glucose Point of Care > 500 mg/dl (65-105)
--- NOTE | 2022-07-31 18:32 | PC.NURSE ---
Pt blood sugar rechecked 2 hours after giving one time dose of Novolog. Pt blood sugar over 500. Call made to . Orders for one time Novolog again and Lantus. Recheck in 2 hours and remind pt to quit eating snacks until we can get his blood sugar under control.
[2022-07-31] MEDS: INSULIN GLARGINE (*BKC) 100 UNITS/ML 10 UNITS SUB-Q (18:41)
[2022-07-31] MEDS: INSULIN ASPART (*BKC) 100 UNITS/ML 6 UNITS SUB-Q (21:26)
[2022-07-31 21:29] VITALS: PULSE 82
[2022-07-31] MEDS: rOPINIRole HCL 0.25 MG TABLET PO (21:31)
[2022-07-31] MEDS: INSULIN GLARGINE (*BKC) 100 UNITS/ML 6 UNITS SUB-Q (21:40)
[2022-07-31 21:42] VITALS: BP 132/69; PULSE 101; RESP 20; TEMP 36.9; O2SAT 98
[2022-07-31 23:54] LABS: Glucose Point of Care 403 mg/dl (65-105)
[2022-08-01] VITALS (20 sets, daily range): BP systolic 101–159; BP diastolic 53–77; PULSE 85–107; RESP 16–24; TEMP 36–37.7; O2SAT 92–100
[2022-08-01 00:01] LABS: Glucose Point of Care 187 mg/dl (65-105)
[2022-08-01 03:59] LABS: Glucose Point of Care 158 mg/dl (65-105)
[2022-08-01] MEDS: INSULIN ASPART (*BKC) 100 UNITS/ML SUB-Q ×3 (06:35→21:46)
[2022-08-01 07:52] LABS: Hematocrit 24.6 % (42.0-52.0); Hemoglobin 7.5 g/dL (14.0-18.0); Mean Corpuscular HGB Conc 30.5 g/dl (32-36); Mean Corpuscular Volume 98.4 fl (80-100); Mean Platelet Volume 9.6 fl (7.4-10.4); Platelet Count Result 680 k/mm3 (150-375); Red Cell Distribution Width 16.9 % (11.5-14.5); White Blood Count 15.2 K/mm3 (4.5-10.0)
[2022-08-01 08:14] LABS: Albumin Level 2.6 g/dL (3.5-5.1); Anion Gap 14 mmol/L (8-16); Blood Urea Nitrogen 69 mg/dL (9-20); Calcium 8.5 mg/dL (8.4-10.2); Carbon Dioxide 25 mmol/L (22-30); Chloride 95 mmol/L (98-107); Estimated CRCL calculation 13 ml/min; Estimated Glomerular Filt Rate 11; Glucose 113 mg/dL (65-110); Potassium 4.9 mmol/L (3.4-5.0); Sodium 134 mmol/L (137-145)
[2022-08-01 08:28] LABS: Glucose Point of Care 125 mg/dl (65-105)
[2022-08-01 11:52] LABS: Glucose Point of Care 172 mg/dl (65-105)
[2022-08-01] MEDS: HEPARIN SODIUM 1,000 UNITS/ML VIAL 5000 UNITS (12:05)
[2022-08-01] MEDS: SODIUM CHLORIDE 0.9% IV 1,000 ML 999 ML IV CONT (12:06)
[2022-08-01] MEDS: EPOETIN ALFA-EPBX 10,000 UNITS/ML VIAL 10000 UNITS IV PUSH (12:06)
[2022-08-01] MEDS: SERTRALINE HCL 50 MG TABLET 100 MG PO (12:42)
[2022-08-01] MEDS: VITAMIN B CMPLX/VIT C/FOLIC AC 1 CAPSULE 1 CAP PO (12:42)
[2022-08-01] MEDS: TICAGRELOR 60 MG TABLET PO ×2 (12:42→17:25)
[2022-08-01] MEDS: CHOLECALCIFEROL 1,000 UNITS TABLET 1000 UNITS PO (12:43)
[2022-08-01] MEDS: ATORVASTATIN 40 MG TABLET 80 MG PO (12:43)
[2022-08-01] MEDS: GABAPENTIN 300 MG CAPSULE PO (12:43)
[2022-08-01] MEDS: ASPIRIN 81 MG ENTERIC TABLET PO (12:43)
[2022-08-01] MEDS: HYDROcodone/acetaminophen (*CRX) 5-325 MG TABLET 1 TAB PO ×3 (12:43→22:48)
[2022-08-01] MEDS: LORazepam (*CRX) 1 MG TABLET PO ×2 (12:44→20:37)
[2022-08-01] MEDS: NICOTINE (*PBKC) 21 MG PATCH 1 PATCH TRANSDERM (12:44)
[2022-08-01] MEDS: MUPIROCIN 2% OINT 22 GM TUBE 1 APPLIC TOPICAL (12:45)
[2022-08-01] MEDS: carvediloL 3.125 MG TABLET PO ×2 (12:46→20:37)
[2022-08-01] MEDS: INSULIN GLARGINE (*BKC) 100 UNITS/ML SUB-Q (12:48)
--- NOTE | 2022-08-01 15:14 | PC.NURSE ---
Per [facility], the patients longterm usually fills the prescriptions and then the longterm can send the antibiotic with him to dialysis for them to give. made aware.
[2022-08-01] MEDS: ERTAPENEM 1 GM/NS 50 ML 1 GM/50 ML BAG IVPB (15:27)
--- NOTE | 2022-08-01 16:12 | PM.DS ---
DS: Admitting Diagnosis Discharge Date 08/01/2022 Admitting Diagnosis General malaise and high blood sugar. DS: Discharge Diagnosis Discharge Diagnosis (1) DKA (diabetic ketoacidoses): Qualifiers: Diabetes mellitus complication detail: without coma Diabetes mellitus type: type 1 Qualified Code(s): E10.10 - Type 1 diabetes mellitus with ketoacidosis without coma Code(s): E11.10 - Type 2 diabetes mellitus with ketoacidosis without coma Status: Resolved Assessment and Plan: -the patient was given 2.5 L of IV fluids in the emergency room. No further maintenance IV fluids are required as the patient frequently goes and pulmonary edema and he is end-stage renal disease patient with dialysis on Monday and Monday. The block mason has been consulted and the patient is in the ICU. The patient will be transitioned to long-acting insulin and sliding scale insulin once his anion gap closes. 07/31/2022 interval history: patient with ESRD on HD presented with general malaise and was found to have DKA was admitted in ICU and patient was vigorously hydrated and started on insulin infusion, his blood sugars have improved and he is now on long acting insulin and sliding scale, he is seen by his web operations manager and will have scheduled dialysis, patient has right knee BKA and now has developed wound and drainage, seen by general surgery service recommended conservative management for now wound is growing E coli and will continue Zosyn and Vancomycin pending wound sensitivity and blood culture, patient remains clinically will CPM and monitor. there are not new complaints and patient will be seen surgery services. (2) Sepsis: Qualifiers: Acute respiratory failure type: unspecified Sepsis acute organ dysfunction status: with acute organ dysfunction Sepsis type: sepsis due to unspecified organism Severe sepsis acute organ dysfunction type: acute respiratory failure Severe sepsis shock status: unspecified Qualified Code(s): A41.9 - Sepsis, unspecified organism; R65.20 - Severe sepsis without septic shock; J96.00 - Acute respiratory failure, unspecified whether with hypoxia or hypercapnia Code(s): A41.9 - Sepsis, unspecified organism Status: Acute Assessment and Plan: -due to abscess to right leg. -wound cultures and blood cultures are pending. -the patient was started on cefepime, Flagyl, and vancomycin. The antibiotics were changed to Zosyn and vanco. -continue to monitor vital signs. -monitor labs -the patient is in ICU being monitored by the block mason. 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 -nephrology consultation greatly be appreciated. DS: Summary Hospital Course Reason for hospitalization: General malaise and high blood sugar. Narrative: This is a 56-year-old male patient with end-stage renal disease with dialysis on Monday we Monday and Monday.? [facility] The patient has been hospitalized multiple times in the past with the last 1 being Guillain-[place].? The patient has been dealing with infection to his right hwpfx-kaq-avgy stump.? Patient has necrotic tissue to the right [id number] amputation as well as on his buttocks.? The patient stated that he has been incontinent of stool and that he does not get cleaned as well as he would like to be.? The patient also stated that he has not had his dressing changed to his stump in several days.? The patient is dissatisfied with the care that he has been receiving at the intermediate.? The patient stated that his blood sugars have been running high most the time.? There has also been some drainage from that to right stump.? Knee x-ray was read as the following today?[place]
[2022-08-01 17:29] LABS: Glucose Point of Care 377 mg/dl (65-105)
--- NOTE | 2022-08-01 18:15 | PM.PNNEP ---
Progress Note: A&P Assessment and Plan (1) ESRD (end stage renal disease): Code(s): N18.6 - End stage renal disease Status: Chronic Assessment and Plan: HD done today. (2) DKA (diabetic ketoacidoses): Qualifiers: Diabetes mellitus type: type 1 Diabetes mellitus complication detail: without coma Qualified Code(s): E10.10 - Type 1 diabetes mellitus with ketoacidosis without coma Code(s): E11.10 - Type 2 diabetes mellitus with ketoacidosis without coma Status: Resolved Assessment and Plan: Sugars have settled down. (3) Abscess of right leg: Code(s): L02.415 - Cutaneous abscess of right lower limb Status: Acute Assessment and Plan: small fluid collection at right BKA stump by CT scan large ulcer at right BKA stump with black eschar on IV antibiotics General Surgery following - s/p needle aspiration/drainage (07/28/22) Growing Bacteroides and E coli. He is on Zosyn. local wound care (4) Hypertension: Code(s): I10 - Essential (primary) hypertension Status: Inactive Assessment and Plan: Systolic ranging from 100-160. Generally was in the 120 is 130s before he was on dialysis today. (5) Anemia: Code(s): D64.9 - Anemia, unspecified Status: Chronic Assessment and Plan: due to ESRD and acute illness/infection Epogen with HD hemoglobin 7.5 today. (6) IDDM (insulin dependent diabetes mellitus): Status: Chronic Assessment and Plan: On Accu-Cheks and sliding-scale insulin per hospitalist. Subjective Date/time seen: 08/01/22 18:15 Interval history: is in the room. Ish is feeling about the same. He had dialysis earlier today and did well. Exam Narrative: General: WD/WN male in NAD Heart: normal S1 and S2; no rub or gallop Lungs: clear bilaterally Abdomen: soft, nontender, nondistended, positive bowel sounds Extremities: no cyanosis or clubbing; no edema; s/p left AKA and right BKA Skin: right stump with eschar - warm/erythematous and tender to touch Objective Data Vital Signs Vital Signs: Vital Signs - 24 hr 07/31/22 21:29 07/31/22 21:42 07/31/22 20:00 Temperature 36.9 C Pulse Rate 82 101 H Respiratory Rate 20 Blood Pressure 132/69 Pulse Oximetry 98 Oxygen Delivery Room Air 08/01/22 06:00 08/01/22 09:24 08/01/22 09:28 Temperature 36.5 C 36.9 C Pulse Rate 91 92 85 Respiratory Rate 24 H 16 Blood Pressure 155/69 H 126/55 L 113/77 Pulse Oximetry 97 Oxygen Delivery 08/01/22 09:40 08/01/22 10:00 08/01/22 10:20 Temperature Pulse Rate 89 90 89 Respiratory Rate Blood Pressure 117/55 L 126/62 135/64 Pulse Oximetry Oxygen Delivery 08/01/22 10:40 08/01/22 11:00 08/01/22 11:20 Temperature Pulse Rate 92 90 87 Respiratory Rate Blood Pressure 130/63 137/70 137/68 Pulse Oximetry Oxygen Delivery 08/01/22 12:46 08/01/22 11:40 08/01/22 12:00 Temperature Pulse Rate 88 86 87 Respiratory Rate Blood Pressure 137/63 135/62 Pulse Oximetry Oxygen Delivery 08/01/22 12:20 08/01/22 12:28 08/01/22 12:31 Temperature 36.8 C Pulse Rate 90 89 87 Respiratory Rate 16 Blood Pressure 127/59 L 127/61 159/69 H Pulse Oximetry Oxygen Delivery 08/01/22 08:00 08/01/22 14:00 Temperature 37.7 C H Pulse Rate 105 H Respiratory Rate 18 Blood Pressure 101/53 L Pulse Oximetry 92 Oxygen Delivery Room Air Intake/Output Intake/Output: Intake & Output 07/29/22 07/30/22 07/31/22 08/01/22 23:59 23:59 23:59 23:59 Intake Total 3290 1840 2390 1000 Output Total 1667 2500 0 2500 Balance 1623 -660 2390 -1500 Meds/Results Medications: Active Medications Generic Name Dose Route Start Last Admin Trade Name Freq PRN Reason Stop Dose Admin Hydrocodone Bitart/Acetaminophen 1 tab 07/28/22 14:57 08/01/22 12:43 Hydrocodone/Acetaminophen (*Crx) 5-3
[2022-08-01] MEDS: rOPINIRole HCL 0.25 MG TABLET PO (20:37)
[2022-08-01 21:44] LABS: Vancomycin Random 11.4 ug/mL (10-20)
[2022-08-01 21:45] LABS: Glucose Point of Care 359 mg/dl (65-105)
[2022-08-01] MEDS: INSULIN GLARGINE (*BKC) 100 UNITS/ML 6 UNITS SUB-Q (21:48)
--- NOTE | 2022-08-02 00:27 | PC.NURSE ---
08/01/23 Ambulance is here to take Pt to [facility]. Wound photos taken. Fecal management D/Juan Daniel
== END 2022-08-01 23:10 | DRG 564 ==
LOC: ANHED 10:51 → ANHICU 11:42 → ANH3MEDSUR 07-29 17:49
PROVIDERS: Emergency Medicine; Internal Medicine; Internal Medicine Nephrology; Admitting Provider Student in an Organized Health Care Education/Training Program; Emergency Provider Emergency Medicine; PCP Emergency Medicine; Visit Provider Family Medicine
DX: T87.43 Infection of amputation stump, right lower extremity (principal); A41.9 Sepsis, unspecified organism; N18.6 End stage renal disease; R65.20 Severe sepsis without septic shock; L02.415 Cutaneous abscess of right lower limb; I13.2 Hypertensive heart and chronic kidney disease with heart failure and with stage 5 chronic kidney disease, or end stage renal disease; G61.0 Guillain-Barre syndrome; M32.14 Glomerular disease in systemic lupus erythematosus; L89.150 Pressure ulcer of sacral region, unstageable; L89.320 Pressure ulcer of left buttock, unstageable; D63.1 Anemia in chronic kidney disease; B96.20 Unspecified Escherichia coli [E. coli] as the cause of diseases classified elsewhere; Z20.822 Contact with and (suspected) exposure to COVID-19; E10.22 Type 1 diabetes mellitus with diabetic chronic kidney disease; I50.9 Heart failure, unspecified; E10.319 Type 1 diabetes mellitus with unspecified diabetic retinopathy without macular edema; E10.40 Type 1 diabetes mellitus with diabetic neuropathy, unspecified; E10.51 Type 1 diabetes mellitus with diabetic peripheral angiopathy without gangrene; L98.499 Non-pressure chronic ulcer of skin of other sites with unspecified severity; I25.10 Atherosclerotic heart disease of native coronary artery without angina pectoris; F17.210 Nicotine dependence, cigarettes, uncomplicated; K21.9 Gastro-esophageal reflux disease without esophagitis; F41.8 Other specified anxiety disorders; N40.0 Benign prostatic hyperplasia without lower urinary tract symptoms; I25.2 Old myocardial infarction; Z99.2 Dependence on renal dialysis; Z79.02 Long term (current) use of antithrombotics/antiplatelets; Z79.4 Long term (current) use of insulin; Z79.899 Other long term (current) drug therapy; Z86.74 Personal history of sudden cardiac arrest; Z89.511 Acquired absence of right leg below knee; Z89.612 Acquired absence of left leg above knee; E10.10 Type 1 diabetes mellitus with ketoacidosis without coma; J96.00 Acute respiratory failure, unspecified whether with hypoxia or hypercapnia; Z95.5 Presence of coronary angioplasty implant and graft; Z96.82 Presence of neurostimulator; Z98.49 Cataract extraction status, unspecified eye
CPT/HCPCS: 36415; 73700; 80048; 80053; 80069; 80202; 82010; 82803; 82948; 83605; 83735; 84100; 85025; 85027; 86706; 87040; 87070; 87075; 87076; 87077; 87147; 87181; 87186; 87205; 96365; 96367; 96375; 97162; 97165; 99285; A9270; C9803; G0257; J0131; J0692; J1170; J1335; J1610; J1644; J1815; J2543; J3370; J7030; J7040; Q5105; U0003; U0005

== ENCOUNTER 2022-08-25 13:05 | Inpatient (IN) | payer OTHER, SELFPAY ==
[2022-08-25] VITALS (14 sets, daily range): BP systolic 87–129; BP diastolic 43–65; PULSE 85–114; RESP 16–23; TEMP 36.7–37.9; O2SAT 95–100; BMI 17.2
--- NOTE | ~2022-08-25 | XR_ITS ---
EXAMINATION: XR chest 1V portable DATE: 08/26/2022 05:57 INDICATION: Shortness of breath. TECHNIQUE: A single frontal view of the chest was obtained. COMPARISON: Chest single view 07/16/2022 FINDINGS: There are airspace opacities in right midlung zone. No pleural effusion or pneumothorax. Th e heart size is normal. There is a right internal jugular central venous catheter with tip in right a trium. IMPRESSION: 1. Airspace opacities in right midlung zone, consistent with pulmonary edema versus pneumonia. Reviewed, dictated and finalized at location A. IMPRESSION: 1. Airspace opacities in right midlung zone, consistent with pulmonary edema ve rsus pneumonia.
--- NOTE | 2022-08-25 13:39 | ED.GENADULT ---
HPI - General Adult General Chief complaint: Wound/Laceration Stated complaint: Ulcers to sacrum Time Seen by Provider: 08/25/22 13:08 History of Present Illness HPI narrative: 56-year-old male presenting to the emergency department for evaluation of worsening sacral decubitus ulcers. Patient has history of type 2 diabetes, end-stage renal disease on dialysis. Patient has had recent hospitalizations due to infection of his right BKA stump. [facility]. On arrival patient has low-grade fever and is tachycardic. Patient does state a local penitentiary and apparently the wound care nurse was not available for 2 weeks and patient had no wound care for this entire duration. Related Data Home Medications Medication Instructions Recorded Confirmed vitamin B complex-vitamin C-folic 1 tablet PO DAILY 07/23/20 07/28/22 acid 0.8 mg tablet (Dang-Nilsa) ropinirole 0.25 mg tablet 0.25 mg PO DIRECTED 01/11/21 07/28/22 ticagrelor 60 mg tablet (Brilinta) 60 mg PO BID 06/23/22 07/28/22 albuterol sulfate 90 mcg/actuation 1 puff inhalation Q6H PRN 07/09/22 07/28/22 aerosol inhaler Shortness Of Breath aspirin 81 mg tablet 81 mg PO DAILY 07/09/22 07/28/22 cholecalciferol (vitamin D3) 25 25 mcg PO DAILY 07/09/22 07/28/22 mcg (1,000 unit) tablet (Vitamin D3) bisacodyl 10 mg rectal suppository 10 mg RECTAL DAILY PRN Constipation 07/28/22 07/28/22 insulin lispro 100 unit/mL 1 sliding scale dose subcut 07/28/22 07/28/22 subcutaneous pen USEASDIRECTD magnesium hydroxide 400 mg/5 mL 30 ml PO HS PRN Constipation 07/28/22 07/28/22 oral suspension (Milk of Magnesia) omeprazole 20 mg capsule,delayed 20 mg PO DAILY 07/28/22 07/28/22 release sodium phosphates 19 gram-7 118 ml RECTAL ONCE PRN Constipation 07/28/22 07/28/22 gram/118 mL enema (Fleet Enema) cyanocobalamin (vitamin B-12) 1,000 mcg PO DAILY 08/25/22 08/25/22 1,000 mcg capsule vitamin B complex 1 cap PO DAILY 08/25/22 08/25/22 Allergies Allergy/AdvReac Type Severity Reaction Status Date / Time scopolamine Allergy Severe Unresponsiv Verified 08/25/22 13:25 e Review of Systems Review of Systems: CONSTITUTIONAL: Denies fever, chills, or sweats. EYES: Denies visual changes, redness, or discharge. ENT: Denies rhinorrhea, congestion, sore throat, or otalgia. CARDIOVASCULAR: Denies chest pain, palpitations, or edema. RESPIRATORY: Denies cough or dyspnea. GASTROINTESTINAL: Denies abdominal pain, nausea, vomiting, or diarrhea. GENITOURINARY: Denies dysuria or hematuria. SKIN: Worsening sacral decubitus ulcers MUSCULOSKELETAL: Denies back pain, joint pain, or myalgia. NEUROLOGIC: Denies headache, numbness, or weakness. [facility] Past Medical History Medical History (Updated 08/25/22 @ 19:02 by Jesse Martinez MD) Acute respiratory failure with hypoxia Amputation above knee Anemia Anemia Anxiety Benign prostatic hyperplasia Bradycardic cardiac arrest (~07/23/20) In the setting of severe hyperkalemia, acute pulmonary edema, and respiratory failure CHF (congestive heart failure) Chronic anemia Chronic kidney failure Congestive heart failure Echo 03/06/2021 1. Complete two-dimensional, color flow and Doppler transthoracic echocardiogram is performed. 2. Left ventricular chamber dimension is mildly enlarged. 3. Left ventricular systolic function is mildly reduced, estimated at 55-60%. 4. There is severely increased left ventricular wall thickness. Speckled appearance of the myocardium. 5. The left ventricular diastolic function is grade I diastolic dysfunction. 6. Left atrial chamber dimension is mildly enlarged. 7. There is moderate aortic valve sclerosis. 8. The mitral valve annulus is severely calcified. 9. There is mild mitral valve regurgitation. 10. The mitral valve has thickened leaflets. 11. There is mild tricuspid valve regurgitation. 12. There is mild pulmonic regurgita
[2022-08-25 14:02] LABS: Hematocrit 25.2 % (42.0-52.0); Hemoglobin 7.6 g/dL (14.0-18.0); Mean Corpuscular HGB Conc 30.2 g/dl (32-36); Mean Corpuscular Hemoglobin 28.7 pg (26-34); Mean Corpuscular Volume 95.1 fl (80-100); Mean Platelet Volume 9.5 fl (7.4-10.4); Platelet Count Result 752 k/mm3 (150-375); Red Blood Count 2.65 M/mm3 (4.6-6.20); White Blood Count 23.4 K/mm3 (4.5-10.0)
[2022-08-25 14:16] LABS: INR 1.3; Prothrombin Time 15.8 Seconds (11.1-14.7)
[2022-08-25 14:17] LABS: Partial Thromboplastin Time 39.8 SECONDS (22.3-36.8)
[2022-08-25 14:32] LABS: Band Neutrophils Percent 6 % (0-6); Lymphocytes Absolute Manual 0.46 K/mm3 (1.1-4.5); Monocytes Percent Manual 3 % (3-9); Neutrophils Absolute Manual 22.23 K/mm3 (1.3-6.7); Neutrophils Percent Manual 89 % (46-73); Platelet Estimate Increased (Adequate); Total Cells Counted 100
[2022-08-25 14:33] LABS: Anisocytosis 1+ (NORMAL); Schistocytes None Seen (NORMAL)
[2022-08-25 14:34] LABS: Hypochromasia 1+ (NORMAL); Ovalocytes 1+ (NORMAL); Poikilocytosis 1+ (NORMAL); Tear Drop Cells 1+ (NORMAL); Toxic Granulation Present (NORMAL)
[2022-08-25 14:35] LABS: Lactic Acid Reflex 1.3 mmol/L (0.7-2.0)
[2022-08-25 14:47] LABS: Alanine Aminotransferase 28 U/L (6-50); Albumin Level 3.1 g/dL (3.5-5.1); Alkaline Phosphatase 117 U/L (38-126); Anion Gap 21 mmol/L (8-16); Aspartate Amino Transferase 45 U/L (17-59); Bilirubin,Total 0.6 mg/dL (0.2-1.3); Blood Urea Nitrogen 52 mg/dL (9-20); Calcium 8.5 mg/dL (8.4-10.2); Carbon Dioxide 19 mmol/L (22-30); Chloride 96 mmol/L (98-107); Estimated Glomerular Filt Rate 17; Glucose 356 mg/dL (65-110); Potassium 5.8 mmol/L (3.4-5.0); Sodium 136 mmol/L (137-145)
--- NOTE | 2022-08-25 14:56 | PM.IMHP ---
H&P: [facility] History of Present Illness Date/Time: 08/25/22 14:56 Chief Complaint: Sacral wound/scrotum-right bazka-ziv-cisv amputation wound Narrative: This is a 56-year-old male patient who is well known to our services. He has a history of sacral wound scrotum wound right sgxst-nqr-teml amputation wound. He has a history of diabetes and end-stage renal disease. The patient is currently in a residential and [place]. The patient stated that the wound care nurse his been out for 2 weeks now and he has not gotten any care for his wounds. The wound care nurse came back today and saw his wounds and sent him to the hospital. I did have to be the wound care nurse come with me and review his wounds. His sacral wound does appear worse and he has eschar tissue to his right [id number]. Patient also has eschar tissue on his scrotum as well. Patient has a low-grade fever and has tachycardia. The wound care nurse recommended that the patient be seen by surgery. Patient's white count is up to 23.4. The wounds have a odorous discharge. His H&H is 7.6 and 25.2. His potassium is 5.8 BUN is 52 creatinine is 3.8. His blood sugars 356. I called Dr. Asif who agreed to accept the patient in to the ICU for DKA. Is reported that the patient is going to surgery from ER. The patient was started on vancomycin and Zosyn. The patient is being admitted to observation status on the date of service of 08/25/2022. Review of Systems Review of Systems: See [facility] Past Medical History Medical History (Updated 08/25/22 @ 15:52 by Mary Lou Davila NP) Acute respiratory failure with hypoxia Amputation above knee Anemia Anemia Anxiety Benign prostatic hyperplasia Bradycardic cardiac arrest (~07/23/20) In the setting of severe hyperkalemia, acute pulmonary edema, and respiratory failure CHF (congestive heart failure) Chronic anemia Chronic kidney failure Congestive heart failure Echo 03/06/2021 1. Complete two-dimensional, color flow and Doppler transthoracic echocardiogram is performed. 2. Left ventricular chamber dimension is mildly enlarged. 3. Left ventricular systolic function is mildly reduced, estimated at 55-60%. 4. There is severely increased left ventricular wall thickness. Speckled appearance of the myocardium. 5. The left ventricular diastolic function is grade I diastolic dysfunction. 6. Left atrial chamber dimension is mildly enlarged. 7. There is moderate aortic valve sclerosis. 8. The mitral valve annulus is severely calcified. 9. There is mild mitral valve regurgitation. 10. The mitral valve has thickened leaflets. 11. There is mild tricuspid valve regurgitation. 12. There is mild pulmonic regurgitation. Coronary artery disease With non STEMI in December 2019, with stent placed to the LAD. Depression with anxiety Diabetic ketoacidosis DVT prophylaxis Elevated lipase Elevated troponin Employs prosthetic leg End-stage renal disease on hemodialysis Erythropoietin deficiency anemia Gastric ulcer On endoscopy per Dr. Pacheco in June 2020. Gastroesophageal reflux disease Guillain-[place] Hyperkalemia Hypertension Hypertensive urgency Leukocytosis Nausea & vomiting Noncompliance Pneumonia Pulmonary edema Renal osteodystrophy Seizure Secondary to hypoglycemia. Smoking ST elevation myocardial infarction (STEMI) (~06/26/20) Secondary to abrupt stent thrombosis of the LAD. Tobacco dependence Type 1 diabetes mellitus Diagnosed at the age of 10. Complicated by retinopathy, nephropathy, and neuropathy. Hemoglobin A1c was 7.6% in July 2020. Upper GI bleed Vitamin D deficiency disease Weakness Surgical History Surgical History History of endoscopy (~06/27/20) History of femoropopliteal bypass 02/04/21 left common femoral endarterectomy with left femoral to below-knee popliteal artery bypass History of heart artery stent Stent in the LAD in [place]
--- NOTE | 2022-08-25 15:00 | PM.CNGS ---
Assessment and Plan Assessment and plan (1) Decubitus ulcers: Code(s): L89.90 - Pressure ulcer of unspecified site, unspecified stage Status: Chronic Assessment and Plan: Multiple large decubitus ulcers as described above in my exam. His sacral, right ischial, and left greater trochanter decubitus ulcers are covered in soft necrotic tissue and eschar with a foul odor and crepitus. They are infected and appear to have deeper tissue involvement. This could be the source of his sepsis. We would recommend proceeding to the OR urgently for surgical debridement today. Will keep him NPO, continue broad-spectrum IV antibiotics, and IV fluids. He has multiple co-morbidities as well as his antiplatelet therapy that increases his risks or surgery, which they are aware. Discussed with the patient and his that his wounds are multifactorial related to his multiple chronic issues, lack of mobility, continued tobacco use, etc. Even with surgical debridement, these wounds will require long-term wound care to even have the best outcomes. Continue Marjorie's dressing changes for now and can reassess wound care following debridement. (2) Sepsis: Qualifiers: Sepsis type: sepsis due to unspecified organism Sepsis acute organ dysfunction status: with acute organ dysfunction Severe sepsis acute organ dysfunction type: acute respiratory failure Acute respiratory failure type: unspecified Severe sepsis shock status: unspecified Qualified Code(s): A41.9 - Sepsis, unspecified organism; R65.20 - Severe sepsis without septic shock; J96.00 - Acute respiratory failure, unspecified whether with hypoxia or hypercapnia Code(s): A41.9 - Sepsis, unspecified organism Status: Acute Assessment and Plan: Criteria met on admission with leukocytosis, tachycardia, and fever. Definitely possible that his necrotic infected decubitus ulcers are a source for his sepsis. Would continue with full work-up for source of the sepsis. Will proceed to the OR for source control and debridement today as mentioned above. Continue broad-spectrum IV antibiotics, IV fluids, and trend labs. Blood cultures were drawn. (3) IDDM (insulin dependent diabetes mellitus): Status: Chronic (4) ESRD (end stage renal disease): Code(s): N18.6 - End stage renal disease Status: Chronic Assessment and Plan: Nephrology consulted for management. He is a hemodialysis patient. 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 This increases risks of surgery and he is aware. Hold Brilinta for now. (6) CHF (congestive heart failure): Qualifiers: Heart failure chronicity: unspecified Heart failure type: unspecified Qualified Code(s): I50.9 - Heart failure, unspecified Code(s): I50.9 - Heart failure, unspecified Status: Acute (7) Coronary artery disease: Qualifiers: Coronary Disease-Associated Artery/Lesion type: nikolai artery [place] vs. transplanted heart: nikolai heart Associated angina: without angina Qualified Code(s): I25.10 - Atherosclerotic heart disease of nikolai coronary artery without angina pectoris Code(s): I25.10 - Atherosclerotic heart disease of nikolai coronary artery without angina pectoris Status: Acute (8) Tobacco dependence: Code(s): F17.200 - Nicotine dependence, unspecified, uncomplicated Status: Acute Assessment and Plan: Patient continues to smoke regardless of multiple conversations stressing the importance of cessation. Again strongly encourage cessation. (9) Status post below knee amputation of right lower extremity: Code(s): Z89.511 - Acquired absence of right leg below knee Status: Acute Assessment and Plan: Right BKA stump with a l
[2022-08-25 15:02] LABS: SARS-CoV-2 RNA PCR Negative
--- NOTE | 2022-08-25 15:35 | WPDANESEPPF ---
Anes - Initial Pre Proc Eval Procedure: Operation Date: 08/25/22 15:30 Proposed Procedures p Debridement Sacral Decubitus And Ischial wounds - Isabell Hercules MD Date/Time: 08/25/22 15:35 Surgeon: Isabell Hercules MD Pre Op Diagnosis: Ulcers to sacrum Patient Data Age: 56 Gender: M Height: 1.7 m Weight: 54 kg Last Vital Signs Temp 37.9 C H 08/25/22 13:04 Pulse 114 H 08/25/22 15:05 Resp 20 08/25/22 15:05 BP 124/65 08/25/22 15:05 Pulse Ox 100 08/25/22 15:05 O2 Del Method Room Air 08/25/22 13:04 Allergies Allergy/AdvReac Type Severity Reaction Status Date / Time scopolamine Allergy Severe Unresponsiv Verified 08/25/22 13:25 e Home Medications Medication Instructions Recorded Confirmed Type vitamin B complex-vitamin C-folic 1 tablet PO DAILY 07/23/20 07/28/22 History acid 0.8 mg tablet (Dang-Nilsa) ropinirole 0.25 mg tablet 0.25 mg PO DIRECTED 01/11/21 07/28/22 History acetaminophen 325 mg tablet (Mapap 650 mg PO Q4H PRN Mild Pain (1-3) 03/28/21 07/28/22 Rx (acetaminophen)) Or Fever #60 tabs nitroglycerin 0.4 mg sublingual 0.4 mg sublingual Q5MIN PRN Chest 09/08/21 07/28/22 Rx tablet (Nitrostat) Pain #30 tabs ondansetron 4 mg disintegrating 4 mg PO Q8H PRN nausea and 10/12/21 07/28/22 Rx tablet vomiting #30 tabs gabapentin 300 mg capsule 300 mg PO DAILY #90 caps 12/28/21 07/28/22 Rx atorvastatin 80 mg tablet 80 mg PO DAILY #90 tabs 02/25/22 07/28/22 Rx blood-glucose meter,continuous #1 ea 03/02/22 07/28/22 Rx (Dexcom G6 Blasting Worker misc) blood-glucose sensor (Dexcom G6 #9 ea 03/02/22 07/28/22 Rx Sensor device) blood-glucose transmitter (Dexcom #1 ea 03/02/22 07/28/22 Rx G6 Transmitter device) sertraline 100 mg tablet 100 mg PO DAILY #90 tabs 06/20/22 07/28/22 Rx ticagrelor 60 mg tablet (Brilinta) 60 mg PO BID 06/23/22 07/28/22 History nicotine 21 mg/24 hr daily 1 patch transdermal QAM #28 ea 07/05/22 07/28/22 Rx transdermal patch (Nicoderm CQ) carvedilol 3.125 mg tablet (Coreg) 3.125 mg PO Q12H #180 tabs 07/08/22 07/28/22 Rx B12 1,000 mcg PO DAILY 07/09/22 07/28/22 History albuterol sulfate 90 mcg/actuation 1 puff inhalation Q6H PRN 07/09/22 07/28/22 History aerosol inhaler Shortness Of Breath aspirin 81 mg tablet 81 mg PO DAILY 07/09/22 07/28/22 History cholecalciferol (vitamin D3) 25 25 mcg PO DAILY 07/09/22 07/28/22 History mcg (1,000 unit) tablet (Vitamin D3) foam bandage 4 X 4 (Mepilex #5 ea 07/14/22 07/28/22 Rx Border) insulin glargine 100 unit/mL (3 See Rx Instructions .Route 07/14/22 07/28/22 Rx mL) subcutaneous pen (Basaglar .COMPLEX #15 mL KwikPen U-100 Insulin) silver 200 mcg/gram topical gel 1 applic topical DAILY #45 grams 07/14/22 07/28/22 Rx (Silver-Sept) bisacodyl 10 mg rectal suppository 10 mg RECTAL DAILY PRN Constipation 07/28/22 07/28/22 History insulin lispro 100 unit/mL 1 sliding scale dose subcut 07/28/22 07/28/22 History subcutaneous pen USEASDIRECTD magnesium hydroxide 400 mg/5 mL 30 ml PO HS PRN Constipation 07/28/22 07/28/22 History oral suspension (Milk of Magnesia) omeprazole 20 mg capsule,delayed 20 mg PO DAILY 07/28/22 07/28/22 History release sodium phosphates 19 gram-7 118 ml RECTAL ONCE PRN Constipation 07/28/22 07/28/22 History gram/118 mL enema (Fleet Enema) ertapenem 1 gram solution for 1 g IM DAILY #2 ea 08/01/22 Rx injection (Invanz) hydrocodone 5 mg-acetaminophen 325 1 tablet PO Q6H PRN Pain Rated 4-6 08/01/22 Rx mg tablet #12 tabs mupirocin 2 % topical ointment 1 applic topical Q12H #26 grams 08/01/22 Rx lorazepam 0.5 mg tablet 1 mg PO BID PRN Anxiety #60 tabs 08/23/22 Rx Laboratory Tests 08/25/22 08/25/22 08/25/22 13:52 13:52 13:52 WBC 23.4 K/mm3 H K/mm3 (4.5-10.0) RBC 2.65 M/mm3 L M/mm3 (4.6-6.20) Hgb 7.6 g/dL L g/dL (14.0-18.0) Hct 25.2 % L % (42.0-52.0) MCV 95.1 fl fl (80-100) MCH 28.7 pg pg
[2022-08-25] MEDS: SODIUM CHLORIDE 0.9% IV 500 ML 30 ML IV CONT (15:54)
--- NOTE | 2022-08-25 15:54 | WPDHPUPDATE1 ---
History and Physical Update Update Date/Time: 08/25/22 15:54 History and Physical has been reviewed, including an updated exam of the patient. There are NO changes in the patient's condition. Risks, benefits, and alternatives have been discussed and questions answered. Patient agrees to proceed with procedure.
--- NOTE | 2022-08-25 16:01 | PCRCNOTE ---
Pt was transported to Pre-OP from ED, RT went down to Pre-OP to draw ABG, explained to pt about blood draw, attempted ABG once, pt while sticking stated, stop, stop . Informed nurse Jolene Oseguera RN that RT will try another attempt after surgery.
--- NOTE | 2022-08-25 16:59 | W.PM.PROC2 ---
Procedure Note - Detailed Date of Procedure 08/25/22 Pre-op Diagnosis sepsis, stage 4 sacral decubitus ulcer, left ischial ulcer, left hip ulcer Post-op Diagnosis Same Procedure Performed extensive debridement and washout stage IV sacral decubitus ulcer measuring 11 x 16 cm, left decubitus ischial ulcer measuring 10 x 6 cm, left hip ulcer measuring 7 x 5 cm Surgeon Isabell Hercules MD Anesthesia General Indications 56-year-old male with multiple medical issues including severe peripheral vascular disease status post bilateral amputation presenting with multiple infected decubitus ulcers, sepsis Findings infected stage IV sacral decubitus ulcer, left ischial ulcer, left hip ulcer Description of Procedure The patient was taken to the operating room placed in the supine position. After adequate induction of general anesthesia, the patient was switched to a prone position. The patient was then prepped and draped in the normal sterile fashion. A time-out was then done to verify the patient's identity as well as the procedure being performed. I began by debriding the large sacral ulcer. This was done by debriding the overlying eschar and underlying necrotic tissue. The necrosis extended all the way through the subcutaneous tissue, muscle, and fascia. The periosteum was noted to be viable and there was no obvious it signs or symptoms of infection in the bone itself. Once all the tissue was debrided and removed, the wound measured approximately 11 x 16 cm. There was no tunneling of the wound. Hemostasis was then gained with the Bovie cautery. I then washed out the wound with Betadine. I then proceeded to debride the left ischial wound. Again the eschar was removed and the underlying necrosis extended through the subcutaneous tissue into the underlying muscle. There was some muscle that was viable and this was left in place. Once this wound was completely debrided and measured 10 x 6 cm. Hemostasis was again gained with the Bovie cautery. The wound was again washed out with Betadine. Then proceeded to debride the wound on the left hip. Again the overlying eschar and necrotic tissue was debrided. The necrosis extended through the subcutaneous tissue into the underlying muscle. There was some viable muscle layers and this was preserved. The wound measured 7 x 5 cm. Hemostasis was gained with the Bovie cautery and the wound was washed out. I then placed a Betadine covered Kerlix in all wounds. Sterile dressing was placed on all wounds. The patient tolerated the procedure relatively well and will be extubated in the OR postop. He will be transferred to the ICU in critical condition. Estimated Blood Loss 50 Packing Yes Pathology None sent Complications No immediate complications Condition Critical Disposition ICU [facility] Billing Surgery - Charge Forward: Surgery Billing
[2022-08-25 17:19] LABS: Glucose Point of Care 422 mg/dl (65-105)
--- NOTE | 2022-08-25 18:03 | ADMGEN ---
This patient, Ish Corley, was admitted to Intensive Care Unit-3. Patient/family oriented to hospital policies and general routines including ID bracelet, bed and alarms, visiting hours, pain management, procedures, bathroom and other care routines, personal items, smoking policy, room service/diet, and visiting hours. Information on how to activate the Rapid Response Team has been discussed. Patient/Family are encouraged to report perceived risks to care and to ask questions if they do not understand what they are told or what they should do.
[2022-08-25 18:05] LABS: Glucose Point of Care 425 mg/dl (65-105)
[2022-08-25] MEDS: INSULIN HUMAN REGULAR (*BKC) 100 UNITS in SODIUM CHLORIDE 0.9% IV 99 ML 7.3 UNITS IV CONT (18:13)
[2022-08-25 18:52] LABS: Hemoglobin A1C 9.8 % (<5.7)
[2022-08-25 18:58] LABS: Anion Gap 19 mmol/L (8-16); Blood Urea Nitrogen 58 mg/dL (9-20); Calcium 7.9 mg/dL (8.4-10.2); Carbon Dioxide 14 mmol/L (22-30); Chloride 97 mmol/L (98-107); Estimated CRCL calculation 13 ml/min; Estimated Glomerular Filt Rate 15; Glucose 571 mg/dL (65-110); Magnesium 1.9 mg/dL (1.6-2.3); Potassium 6.2 mmol/L (3.4-5.0); Sodium 130 mmol/L (137-145)
[2022-08-25 19:07] LABS: Glucose Point of Care 499 mg/dl (65-105)
[2022-08-25 19:17] LABS: Beta-Hydroxybutyrate/Acetoacetate 4.71 mmol/L (0.02-0.27)
[2022-08-25] MEDS: INSULIN HUMAN REGULAR (*BKC) 100 UNITS/ML IV PUSH (19:34)
[2022-08-25] MEDS: DEXTROSE 50% 25 GM/50 ML SYRINGE IV PUSH (19:35)
[2022-08-25] MEDS: ALBUTEROL SULFATE NEB 2.5 MG/3 ML INH 10 MG INHALATION (19:41)
[2022-08-25] MEDS: HEPARIN SODIUM 5,000 UNITS/ML VIAL 5000 UNITS SUB-Q (20:14)
[2022-08-25] MEDS: SODIUM ZIRCONIUM CYCLOSILICATE 10 GM POWD.PACK PO (21:10)
[2022-08-25 21:19] LABS: Glucose Point of Care 417 mg/dl (65-105)
[2022-08-25 21:19] LABS: Glucose Point of Care 461 mg/dl (65-105)
[2022-08-25 23:01] LABS: Anion Gap 18 mmol/L (8-16); Blood Urea Nitrogen 64 mg/dL (9-20); Calcium 8.1 mg/dL (8.4-10.2); Carbon Dioxide 18 mmol/L (22-30); Chloride 97 mmol/L (98-107); Estimated CRCL calculation 12 ml/min; Estimated Glomerular Filt Rate 14; Glucose 453 mg/dL (65-110); Potassium 4.9 mmol/L (3.4-5.0); Sodium 133 mmol/L (137-145)
[2022-08-25 23:06] LABS: Glucose Point of Care 406 mg/dl (65-105)
[2022-08-25 23:06] LABS: Glucose Point of Care 395 mg/dl (65-105)
[2022-08-26] VITALS (25 sets, daily range): BP systolic 77–119; BP diastolic 47–64; PULSE 79–105; RESP 16–24; TEMP 36–37.1; O2SAT 96–100; BMI 17.3
[2022-08-26] MEDS: INSULIN HUMAN REGULAR (*BKC) 100 UNITS in SODIUM CHLORIDE 0.9% IV 99 ML 24.2 UNITS IV CONT (00:04)
[2022-08-26 02:06] LABS: Glucose Point of Care 289 mg/dl (65-105)
[2022-08-26 02:06] LABS: Glucose Point of Care 257 mg/dl (65-105)
[2022-08-26 02:06] LABS: Glucose Point of Care 347 mg/dl (65-105)
[2022-08-26 03:06] LABS: Glucose Point of Care 218 mg/dl (65-105)
[2022-08-26 04:07] LABS: Glucose Point of Care 175 mg/dl (65-105)
[2022-08-26 05:05] LABS: Glucose Point of Care 133 mg/dl (65-105)
[2022-08-26] MEDS: INSULIN HUMAN REGULAR (*BKC) 100 UNITS in SODIUM CHLORIDE 0.9% IV 99 ML 8 UNITS IV CONT (05:11)
[2022-08-26 05:35] LABS: Basophils Absolute Auto 0.1 K/mm3 (0.0-0.1); Basophils Percent Auto 0.2 % (0.2-1.2); Hematocrit 21.1 % (42.0-52.0); Immature Granulocyte Absolute 0.17 K/mm3 (0.00-0.031); Immature Granulocyte Percent A 0.8 % (0-0.5); Lymphocytes Absolute Auto 0.91 K/mm3 (0.9-3.2); Lymphocytes Percent Auto 4.2 % (18.3-44.2); Mean Corpuscular HGB Conc 29.4 g/dl (32-36); Mean Corpuscular Hemoglobin 28.1 pg (26-34); Mean Corpuscular Volume 95.5 fl (80-100); Mean Platelet Volume 9.5 fl (7.4-10.4); Monocytes Percent Auto 4.6 % (2.6-8.5); Neutrophils Absolute Auto 19.6 K/mm3 (1.3-6.7); Neutrophils Percent Auto 90.2 % (45.5-73.1); Platelet Count Result 714 k/mm3 (150-375); Red Blood Count 2.21 M/mm3 (4.6-6.20); White Blood Count 21.7 K/mm3 (4.5-10.0)
[2022-08-26 05:57] LABS: Alanine Aminotransferase 21 U/L (6-50); Albumin Level 2.7 g/dL (3.5-5.1); Alkaline Phosphatase 131 U/L (38-126); Anion Gap 16 mmol/L (8-16); Aspartate Amino Transferase 29 U/L (17-59); Bilirubin,Total 0.2 mg/dL (0.2-1.3); Blood Urea Nitrogen 68 mg/dL (9-20); Calcium 8.7 mg/dL (8.4-10.2); Carbon Dioxide 24 mmol/L (22-30); Chloride 98 mmol/L (98-107); Estimated CRCL calculation 12 ml/min; Estimated Glomerular Filt Rate 13; Glucose 155 mg/dL (65-110); Magnesium 2.1 mg/dL (1.6-2.3); Potassium 4.6 mmol/L (3.4-5.0); Sodium 138 mmol/L (137-145)
[2022-08-26 05:58] LABS: Lactic Acid Reflex 1.7 mmol/L (0.7-2.0)
[2022-08-26 06:09] LABS: Glucose Point of Care 93 mg/dl (65-105)
[2022-08-26 06:40] LABS: Hemoglobin 6.2 g/dL (14.0-18.0)
[2022-08-26 06:41] LABS: Anisocytosis 3+ (NORMAL); Hypochromasia 2+ (NORMAL); Platelet Estimate Increased (Adequate)
[2022-08-26 06:42] LABS: Ovalocytes 1+ (NORMAL); Poikilocytosis 1+ (NORMAL)
[2022-08-26 06:51] LABS: Schistocytes None Seen (NORMAL)
[2022-08-26 06:56] LABS: Glucose Point of Care 64 mg/dl (65-105)
[2022-08-26] MEDS: DEXTROSE 50% 25 GM/50 ML SYRINGE IV PUSH (07:25)
[2022-08-26 08:11] LABS: Anion Gap 14 mmol/L (8-16); Blood Urea Nitrogen 72 mg/dL (9-20); Calcium 8.5 mg/dL (8.4-10.2); Carbon Dioxide 22 mmol/L (22-30); Chloride 100 mmol/L (98-107); Estimated CRCL calculation 11 ml/min; Estimated Glomerular Filt Rate 12; Glucose 87 mg/dL (65-110); Sodium 136 mmol/L (137-145)
[2022-08-26 08:48] LABS: Hepatitis B Surface Anti Res Positive
--- NOTE | 2022-08-26 08:51 | WPDCNINT ---
Assessment and Plan Assessment and plan (1) Decubitus ulcer of sacral area: Code(s): L89.159 - Pressure ulcer of sacral region, unspecified stage Status: Acute Assessment and Plan: 08/25/2022: status post extensive debridement and washout of stage IV sacral decubitus ulcer measuring 11 x 16 cm, left decubitus history last set measuring 10 x 6 cm, left hip ulcer measuring 7 x 5 cm -Continue vancomycin and Zosyn -08/25/2022: Blood cultures cultures have been obtained and pending -surgery following -pain control with Cuthbert (2) DKA (diabetic ketoacidoses): Qualifiers: Diabetes mellitus type: type 1 Diabetes mellitus complication detail: without coma Qualified Code(s): E10.10 - Type 1 diabetes mellitus with ketoacidosis without coma Code(s): E11.10 - Type 2 diabetes mellitus with ketoacidosis without coma Status: Resolved Assessment and Plan: Patient presented with anion gap metabolic acidosis, hyperglycemia was found to be in DKA -patient is on insulin infusion has been transition to long-acting insulin and sliding scale insulin. -start diabetic diet -hemoglobin A1c is 9.8 this admission (3) ESRD (end stage renal disease): Code(s): N18.6 - End stage renal disease Status: Chronic Assessment and Plan: End-stage renal disease on dialysis, Monday, Monday, Monday and Monday -nephrology following the patient -patient is going getting dialyzed this morning -patient presented with hyperkalemia on admission, K of 6.2 -potassium this morning is 5.0 (4) Anemia: Code(s): D64.9 - Anemia, unspecified Status: Chronic Assessment and Plan: Patient dropped his hemoglobin to 6.2 on 08/26/2022 -will transfuse 1 unit of packed RBCs with dialysis -will hold Brilinta, other anticoagulation for now -likely bleeding from debridement -continue to monitor blood counts Plan DVT prophylaxis: No chemoprophylaxis as patient has anemia Stress ulcer prophylaxis: Protonix IV q.12 hours Nutrition: Diabetic diet Discussed with patient updated with his condition and plan of care. Code Status: Full code Critical Care Time Spent: 46 minutes Due to a high probability of clinically significant, life threatening deterioration, the patient required my highest level of preparedness to intervene emergently and I personally spent this critical care time directly and personally managing the patient. This critical care time included obtaining a history; examining the patient; pulse oximetry; ordering and review of studies; arranging urgent treatment with development of a management plan; evaluation of patient's response to treatment; frequent reassessment; and discussions with other providers. It was exclusive of separately billable procedures and treating other patients and teaching time. Please see Assessment and Plan section and the rest of the note for further information on patient assessment and treatment Judicial Law Clerk Consult Note Consult date: 08/26/22 Reason for consult: Sepsis, DKA, status post extensive debridement and washout of stage IV sacral decubitus ulcer measuring 11 x 16 cm, left decubitus history last set measuring 10 x 6 cm, left hip ulcer measuring 7 x 5 cm HPI: Ish Corley is a 56 year old male with past medical history off diabetes, coronary artery disease with stents, OR, CHF, end-stage renal disease on dialysis (Mon, Wed, Fri, Sat), hypertension, right BKA, left AKA, 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 Patient states that he is at a rehab and not getting appropriate wound care and insulin. According the records the wound care at the rehab center has been out for 2 weeks and his wounds have worsened. Once the rehab wound care nurse cut back and reviewed the wound she sent him to the ER. Patient has a large sacral wound, bilateral ischial wounds and
[2022-08-26 09:05] LABS: Glucose Point of Care 87 mg/dl (65-105)
[2022-08-26] MEDS: HYDROcodone/acetaminophen (*CRX) 5-325 MG TABLET 1 TAB PO (09:13)
[2022-08-26] MEDS: SOD HYPOCHLORITE 1/4 STRENGTH 473 ML 1 APPLIC TOPICAL (09:16)
[2022-08-26] MEDS: rOPINIRole HCL 0.25 MG TABLET PO (09:22)
[2022-08-26] MEDS: INSULIN GLARGINE (*BKC) 100 UNITS/ML 7 UNITS SUB-Q ×2 (10:17→18:15)
[2022-08-26 10:21] LABS: Hepatitis B Surface Antigen Negative (Negative)
--- NOTE | 2022-08-26 10:59 | PM.PNGS ---
Progress Note: A&P Assessment and Plan (1) Sepsis: Code(s): A41.9 - Sepsis, unspecified organism Status: Acute Assessment and Plan: WBC slightly improved, HD stable, cont IV abx (2) Decubitus ulcers: Code(s): L89.90 - Pressure ulcer of unspecified site, unspecified stage Status: Chronic Assessment and Plan: will have wound care evaluate for vac, cont abx, may need diverting ostomy in the future Subjective Subjective Date/Time Seen: 08/26/22 10:59 getting HD this am, reports no acute issues Review of Systems Review of Systems: All systems reviewed & are unremarkable except as noted in HPI and below Exam Const: General: cooperative, comfortable, no acute distress and ill appearing Resp: Auscultation: diminished lung sounds Cardio: Rate: regular rate Rhythm: regular rhythm GI: Inspection: normal to inspection Skin: Other: wounds - dressing C/D/I Objective Data Vital Signs Vital Signs: Vital Signs - 24 hr 08/25/22 13:04 08/25/22 15:05 08/25/22 13:21 Temperature 37.9 C H Pulse Rate 110 H 114 H 109 H Respiratory Rate 20 20 18 Blood Pressure 101/43 L 124/65 101/43 L Pulse Oximetry 98 100 98 Oxygen Delivery Room Air Oxygen Flow Rate 08/25/22 14:15 08/25/22 15:25 08/25/22 17:01 Temperature 37.1 C 36.9 C Pulse Rate 113 H 110 H 88 Respiratory Rate 23 H 16 20 Blood Pressure 115/48 L 129/59 L 100/53 L Pulse Oximetry 100 97 100 Oxygen Delivery Room Air Simple Face Mask Oxygen Flow Rate 6 08/25/22 17:18 08/25/22 17:35 08/25/22 18:00 Temperature 36.7 C Pulse Rate 92 98 85 Respiratory Rate 18 20 17 Blood Pressure 95/52 L 98/51 L 106/57 L Pulse Oximetry 100 96 95 Oxygen Delivery Room Air Room Air Oxygen Flow Rate 08/25/22 18:00 08/25/22 19:30 08/25/22 20:17 Temperature Pulse Rate 102 H 102 H Respiratory Rate 17 Blood Pressure Pulse Oximetry 96 96 Oxygen Delivery Room Air Room Air Oxygen Flow Rate 08/25/22 20:00 08/25/22 20:00 08/25/22 22:00 Temperature 36.7 C Pulse Rate 106 H 106 H 105 H Respiratory Rate 20 20 Blood Pressure 101/57 L 87/49 L Pulse Oximetry 100 97 Oxygen Delivery Oxygen Flow Rate 08/25/22 22:00 08/26/22 00:00 08/26/22 00:00 Temperature Pulse Rate 105 H 105 H 93 Respiratory Rate 20 Blood Pressure Pulse Oximetry 97 Oxygen Delivery Room Air Oxygen Flow Rate 08/26/22 00:00 08/26/22 02:00 08/26/22 02:00 Temperature 36.6 C Pulse Rate 93 83 83 Respiratory Rate 20 22 H Blood Pressure 94/49 L 93/51 L Pulse Oximetry 100 100 Oxygen Delivery Oxygen Flow Rate 08/26/22 04:00 08/26/22 04:00 08/26/22 04:00 Temperature 36.4 C L Pulse Rate 79 79 79 Respiratory Rate 22 H 16 Blood Pressure 102/55 L Pulse Oximetry 100 100 Oxygen Delivery Room Air Oxygen Flow Rate 08/26/22 06:00 08/26/22 06:00 08/26/22 09:19 Temperature 36.6 C Pulse Rate 81 80 93 Respiratory Rate 18 24 H Blood Pressure 98/56 L 97/58 L Pulse Oximetry 100 96 Oxygen Delivery Oxygen Flow Rate 08/26/22 09:35 08/26/22 08:30 08/26/22 08:46 Temperature 36.6 C 36.6 C Pulse Rate 88 84 84 Respiratory Rate 16 16 Blood Pressure 101/57 L 100/60 119/64 Pulse Oximetry 98 98 Oxygen Delivery Oxygen Flow Rate 08/26/22 09:00 08/26/22 09:15 08/26/22 09:30 Temperature Pulse Rate 91 91 91 Respiratory Rate Blood Pressure 77/48 L 97/58 L 101/57 L Pulse Oximetry Oxygen Delivery Oxygen Flow Rate 08/26/22 09:45 08/26/22 10:00 08/26/22 10:15 Temperature Pulse Rate 93 91 90 Respiratory Rate Blood Pressure 109/54 L 109/54 L 106/52 L Pulse Oximetry Oxygen Delivery Oxygen Flow Rate 08/26/22 10:30 08/26/22 10:45 08/25/22 18:59 Temperature Pulse Rate 89 90 102 H Respiratory Rate Blood Pressure 106/52 L 102/50 L Pulse Oximetry Oxygen Delivery Oxygen Flow Rate Intake/Output Intake/Output: Intake
--- NOTE | 2022-08-26 11:07 | P.CONNP_ITS ---
Assessment and Plan Assessment and plan (1) ESRD (end stage renal disease): Code(s): N18.6 - End stage renal disease Status: Chronic Assessment and Plan: * HD today and likely tomorrow to maintain Mon/Mon/Mon/ dialysis schedule * hyperkalemia noted on admission - better this AM * follow electrolytes, volume status, and clearance (2) Decubitus ulcer of sacral area: Code(s): L89.159 - Pressure ulcer of sacral region, unspecified stage Status: Acute Assessment and Plan: * as noted on admission * s/p debridement and washout of sacral/ischium/left hip decubitus ulcers (on 08/25/22) * follow trend of blood/wound cultrues * on IV antibiotics * General Surgery following * local wound care * pain control (3) Hypotension: Code(s): I95.9 - Hypotension, unspecified Status: Acute Assessment and Plan: * usually hypertensive in general but BP a bit soft * his severe and advanced vascular disease is likely a contributing factor * possible early sepsis related to #2 (?) * follow trend of hemodynamics (4) Anemia: Code(s): D64.9 - Anemia, unspecified Status: Chronic Assessment and Plan: * noted drop in H/H by AM labs * PRBC transfusion per protocol * likely secondary to debridement/operative intervention * Epogen with HD * holding blood thinners/anticoagulation * follow H/H (5) IDDM (insulin dependent diabetes mellitus): Status: Chronic Assessment and Plan: * noted to be in DKA on admission by anion gap metabolic acidosis, hyperglycemia, and positive beta-hydroxybutyrate * presumably triggered by infection/#2 * s/p insulin gtt with transition to SQ insulin (long acting and SSI) * follow accucheks * britlle control noted by history Will continue to follow. History of Present Illness Reason for Consult Consult date: 08/28/22 Reason for consult: end stage renal disease Chief Complaint Chief complaint: Ulcers to sacrum History of Present Illness Narrative: The patient is a 56-year-old male with extensive past medical history as outlined below who presented to [facility] Emergency room from his nursing facility due to worsening appearance of his sacral wounds. The patient states that since he has been at his nursing facility he is being getting proper wound care or insulin therapy. According to the records that accompany the patient when he came to the emergency room, the wound care nurse at his facility had not been there in approximately 2 weeks and in that time frame, his wounds had significantly deteriorated. Once the wound care nurse came back and exam at his wounds, she recommended transfer to the ER for f urther evaluation. Workup and evaluation emergency room demonstrated the patient to be relatively h ypotensive concerning that he usually is quite hypertensive at baseline and he was noted have a large sacral wound, bilateral ischial wounds, and a left hip wound. There is apparently significant eschar tissue on the scrotal area with maceration on his penis. The wounds themselves had a malodorous discharge and general surgery was consulted for evaluation. Given the severity of his wounds, surgery took him to the OR for extensive debridement and washout of these wounds. It was also noted on routine blood test that the patient had severe hyperglycemia in association with an anion gap metabolic acidosis highly suggestive of diabetic ketoacidosis. Following his extensive debridement in the OR, the patient was brought to the ICU for institution of an IV insulin drip as well a
--- NOTE | 2022-08-26 11:07 | PM.CNNEP ---
Assessment and Plan Assessment and plan (1) ESRD (end stage renal disease): Code(s): N18.6 - End stage renal disease Status: Chronic Assessment and Plan: HD today and likely tomorrow to maintain Mon/Mon/Mon/ dialysis schedule hyperkalemia noted on admission - better this AM follow electrolytes, volume status, and clearance (2) Decubitus ulcer of sacral area: Code(s): L89.159 - Pressure ulcer of sacral region, unspecified stage Status: Acute Assessment and Plan: as noted on admission s/p debridement and washout of sacral/ischium/left hip decubitus ulcers (on 08/25/22) follow trend of blood/wound cultrues on IV antibiotics General Surgery following local wound care pain control (3) Hypotension: Code(s): I95.9 - Hypotension, unspecified Status: Acute Assessment and Plan: usually hypertensive in general but BP a bit soft his severe and advanced vascular disease is likely a contributing factor possible early sepsis related to #2 (?) follow trend of hemodynamics (4) Anemia: Code(s): D64.9 - Anemia, unspecified Status: Chronic Assessment and Plan: noted drop in H/H by AM labs PRBC transfusion per protocol likely secondary to debridement/operative intervention Epogen with HD holding blood thinners/anticoagulation follow H/H (5) IDDM (insulin dependent diabetes mellitus): Status: Chronic Assessment and Plan: noted to be in DKA on admission by anion gap metabolic acidosis, hyperglycemia, and positive beta-hydroxybutyrate presumably triggered by infection/#2 s/p insulin gtt with transition to SQ insulin (long acting and SSI) follow milad hanks control noted by history Will continue to follow. History of Present Illness Reason for Consult Consult date: 08/28/22 Reason for consult: end stage renal disease Chief Complaint Chief complaint: Ulcers to sacrum History of Present Illness Narrative: The patient is a 56-year-old male with extensive past medical history as outlined below who presented to [facility] Emergency room from his nursing facility due to worsening appearance of his sacral wounds. The patient states that since he has been at his nursing facility he is being getting proper wound care or insulin therapy. According to the records that accompany the patient when he came to the emergency room, the wound care nurse at his facility had not been there in approximately 2 weeks and in that time frame, his wounds had significantly deteriorated. Once the wound care nurse came back and exam at his wounds, she recommended transfer to the ER for further evaluation. Workup and evaluation emergency room demonstrated the patient to be relatively hypotensive concerning that he usually is quite hypertensive at baseline and he was noted have a large sacral wound, bilateral ischial wounds, and a left hip wound. There is apparently significant eschar tissue on the scrotal area with maceration on his penis. The wounds themselves had a malodorous discharge and general surgery was consulted for evaluation. Given the severity of his wounds, surgery took him to the OR for extensive debridement and washout of these wounds. It was also noted on routine blood test that the patient had severe hyperglycemia in association with an anion gap metabolic acidosis highly suggestive of diabetic ketoacidosis. Following his extensive debridement in the OR, the patient was brought to the ICU for institution of an IV insulin drip as well as broad-spectrum IV antibiotic therapy after appropriate cultures had already been obtained in the emergency room. Overnight, the patient's blood pressure remained somewhat soft but stable. His insulin drip was continued until his anion gap closed and stability in his blood sugars were obtained. He has since been transitioned to subcutaneous insulin and is currently off of his in
[2022-08-26] MEDS: INSULIN ASPART (*BKC) 100 UNITS/ML SUB-Q ×2 (12:05→18:14)
[2022-08-26 12:06] LABS: Glucose Point of Care 269 mg/dl (65-105)
[2022-08-26] MEDS: SERTRALINE HCL 50 MG TABLET 100 MG PO (13:04)
[2022-08-26] MEDS: CYANOCOBALAMIN 1,000 MCG TABLET 1000 MCG PO (13:04)
[2022-08-26] MEDS: GABAPENTIN 300 MG CAPSULE PO (13:05)
[2022-08-26] MEDS: VITAMIN B CMPLX/VIT C/FOLIC AC 1 CAPSULE 1 CAP PO (13:05)
[2022-08-26] MEDS: CHOLECALCIFEROL 1,000 UNITS TABLET 1000 UNITS PO (13:05)
[2022-08-26 13:58] LABS: Glucose Point of Care 266 mg/dl (65-105)
--- NOTE | 2022-08-26 16:23 | PCCDE ---
Consult received 08/25; pt familiar to this underwriter mortgage loan. Pt has hx of T1D and ESRD. currently on 7 units Lantus daily and low dose correction scale. Pt was 65 this am coming off the insulin drip, but ate 100% of breakfast and lunch BG was 269mg/dl. Spoke with Dr Ibarra and recommended to add 2 units Novolog with meals.
--- NOTE | 2022-08-26 16:26 | PM.IMPN ---
Progress Note: A&P Assessment and Plan (1) Decubitus ulcers: Code(s): L89.90 - Pressure ulcer of unspecified site, unspecified stage Status: Chronic Assessment and Plan: -wound Care has been consulted. Patient has a scar tissue has increased. The patient is to being taken to surgery from the ER. -the patient is in [facility] and the patient tells me that he has not seen the wound care nurse for 2 weeks and just saw her today and she recommended that the patient come to the hospital. - The patient is febrile with leukocytosis. His white count was found to be 23.4. The patient is tachycardic and blood pressure has been low. The patient fits the sepsis criteria. Lactic level was normal. -please see photos in the chart. -the patient was started on vancomycin and Zosyn. Pharmacy to renal dose since he is a dialysis patient. -blood cultures are pending. 08/26/2022 interval history: patient is 56 male with history of DM I, ESRD on HD, presented will hyperglycemia was found to have DKA, patient was admitted into ICU, patient was started on insulin drip and gently hydrated, patient blood sugars are trending down patient was seeen by [employer] identity management consultant and asthma educator and recommended to place on insulin 2units with each, also patient is found to scaral wound as well AKA stump, appear to be infected patient is seen by surgery service and had debridement, patient was also in sepsis upon arrival most likely secondary to infected wounds, patient is being treated Zosyn and vancomycin, will follow up on blood culture and further recommendation to follow. (2) DKA (diabetic ketoacidoses): Qualifiers: Diabetes mellitus type: type 1 Diabetes mellitus complication detail: without coma Qualified Code(s): E10.10 - Type 1 diabetes mellitus with ketoacidosis without coma Code(s): E11.10 - Type 2 diabetes mellitus with ketoacidosis without coma Status: Resolved Assessment and Plan: -I have consulted the oracle identity management consultant. -the patient's blood sugars are in the 300s. -patient's anion gap is 21. It was recommended that the patient receive a 500 cc bolus of fluids and repeat again if his lungs are clear. However the patient is getting fluids in the OR. -the patient is to be an ICU on a DKA protocol. Which includes having BMPs every 4 hours. He will be on insulin drip. The patient has type 1 diabetes and is very brittle. -the patient will need a dietary consult. Not only is he a diabetic he is malnourished and on dialysis as well. (3) IDDM (insulin dependent diabetes mellitus): Status: Chronic Assessment and Plan: -once the patient is off the insulin drip then we can give him Lantus and start him on a sliding scale insulin. (4) ESRD (end stage renal disease): Code(s): N18.6 - End stage renal disease Status: Chronic Assessment and Plan: -nephrology has been consulted. Patient has hyperkalemia and was given Lokelma. -continue with Dang Nilsa. (5) Anemia: Code(s): D64.9 - Anemia, unspecified Status: Chronic Assessment and Plan: -was likely secondary to his end-stage renal disease. Please continue to monitor. -the patient is at his baseline. (6) Depression with anxiety: Code(s): F41.8 - Other specified anxiety disorders Status: Acute Assessment and Plan: -continue with sertraline (7) Hypertension: Qualifiers: Hypertension type: unspecified Qualified Code(s): I10 - Essential (primary) hypertension Code(s): I10 - Essential (primary) hypertension Status: Acute Assessment and Plan: -the patient is NPO at this time. And his blood pressure is soft. Will need to hold his blood pressure medicine at this time. (8) CHF (congestive heart failure): Qualifiers: Heart failure chronicity: unspecified Heart failure type: unspecified Qualified Code(s): I50.9 - Heart failure, unspecified Code(s): I50.9
--- NOTE | 2022-08-26 17:22 | PC.NURSE ---
This patient, Ish Corley, was transferred to [[facility] ] on 08/26/22 at 1710. Personal belongings sent with patient. Report given to [Talib ]. Appropriate documentation sent with patient.
[2022-08-26 17:37] LABS: Glucose Point of Care 406 mg/dl (65-105)
--- NOTE | 2022-08-26 17:41 | PC.NURSE ---
This patient, Ish Corley, was received from [ ICU 8] on 08/26/22 at 1710. Patient/family oriented to unit policies and routines
[2022-08-26 19:16] LABS: Vancomycin Random 7.3 ug/mL (10-20)
[2022-08-26] MEDS: PANTOPRAZOLE SODIUM IV 40 MG VIAL IV PUSH (20:34)
[2022-08-26] MEDS: INSULIN ASPART (*BKC) 100 UNITS/ML 6 UNITS SUB-Q (22:23)
[2022-08-26 22:58] LABS: Glucose Point of Care > 500 mg/dl (65-105)
[2022-08-27] VITALS (19 sets, daily range): BP systolic 77–158; BP diastolic 45–71; PULSE 91–119; RESP 16–22; TEMP 36–37.3; O2SAT 96–100
[2022-08-27 00:26] LABS: Glucose Point of Care 419 mg/dl (65-105)
[2022-08-27] MEDS: HYDROcodone/acetaminophen (*CRX) 5-325 MG TABLET 1 TAB PO (06:31)
[2022-08-27 06:40] LABS: Basophils Percent Auto 0.2 % (0.2-1.2); Eosinophils Absolute Auto 0.1 K/mm3 (0-0.3); Eosinophils Percent Auto 0.5 % (0-4.4); Hematocrit 23.2 % (42.0-52.0); Hemoglobin 7.2 g/dL (14.0-18.0); Immature Granulocyte Absolute 0.18 K/mm3 (0.00-0.031); Immature Granulocyte Percent A 0.9 % (0-0.5); Lymphocytes Absolute Auto 1.22 K/mm3 (0.9-3.2); Lymphocytes Percent Auto 6.2 % (18.3-44.2); Mean Corpuscular Hemoglobin 28.7 pg (26-34); Mean Corpuscular Volume 92.4 fl (80-100); Mean Platelet Volume 9.6 fl (7.4-10.4); Monocytes Absolute Auto 0.8 K/mm3 (0.1-0.6); Neutrophils Absolute Auto 17.4 K/mm3 (1.3-6.7); Neutrophils Percent Auto 88.2 % (45.5-73.1); Platelet Count Result 636 k/mm3 (150-375); Red Blood Count 2.51 M/mm3 (4.6-6.20); Red Cell Distribution Width 16.7 % (11.5-14.5); White Blood Count 19.7 K/mm3 (4.5-10.0)
[2022-08-27 06:53] LABS: Alanine Aminotransferase 21 U/L (6-50); Albumin Level 2.8 g/dL (3.5-5.1); Alkaline Phosphatase 100 U/L (38-126); Anion Gap 16 mmol/L (8-16); Aspartate Amino Transferase 31 U/L (17-59); Bilirubin,Total 0.3 mg/dL (0.2-1.3); Blood Urea Nitrogen 62 mg/dL (9-20); Calcium 8.6 mg/dL (8.4-10.2); Carbon Dioxide 24 mmol/L (22-30); Chloride 93 mmol/L (98-107); Estimated CRCL calculation 13 ml/min; Estimated Glomerular Filt Rate 15; Glucose 342 mg/dL (65-110); Magnesium 1.8 mg/dL (1.6-2.3); Phosphorus 7.5 mg/dL (2.5-4.5); Potassium 4.8 mmol/L (3.4-5.0); Sodium 133 mmol/L (137-145)
[2022-08-27 08:46] LABS: Glucose Point of Care 343 mg/dl (65-105)
[2022-08-27] MEDS: INSULIN ASPART (*BKC) 100 UNITS/ML SUB-Q ×5 (08:59→17:32)
[2022-08-27] MEDS: INSULIN GLARGINE (*BKC) 100 UNITS/ML 7 UNITS SUB-Q ×2 (09:00→21:16)
--- NOTE | 2022-08-27 09:30 | PC.NURSE ---
Patient off of unit to dialysis
[2022-08-27] MEDS: EPOETIN ALFA-EPBX 20,000 UNITS/ML VIAL 20000 UNITS IV PUSH (11:50)
[2022-08-27] MEDS: SODIUM CHLORIDE 0.9% IV 1,000 ML 999 ML IV CONT (11:50)
--- NOTE | 2022-08-27 12:29 | PM.PNNEP ---
Progress Note: A&P Assessment and Plan (1) ESRD (end stage renal disease): Code(s): N18.6 - End stage renal disease Status: Chronic Assessment and Plan: HD today and continue Mon/Mon/Mon/ dialysis schedule hyperkalemia noted on admission - better this AM follow electrolytes, volume status, and clearance (2) Decubitus ulcer of sacral area: Code(s): L89.159 - Pressure ulcer of sacral region, unspecified stage Status: Acute Assessment and Plan: as noted on admission s/p debridement and washout of sacral/ischium/left hip decubitus ulcers (on 08/25/22) follow trend of blood/wound cultrues on IV antibiotics General Surgery following local wound care pain control (3) Hypotension: Code(s): I95.9 - Hypotension, unspecified Status: Acute Assessment and Plan: usually hypertensive in general but BP a bit soft his severe and advanced vascular disease is likely a contributing factor possible early sepsis related to #2 (?) follow trend of hemodynamics (4) Anemia: Code(s): D64.9 - Anemia, unspecified Status: Chronic Assessment and Plan: PRBC transfusion per protocol likely secondary to debridement/operative intervention + ESRD + Epogen resistance Epogen with HD holding blood thinners/anticoagulation follow H/H (5) IDDM (insulin dependent diabetes mellitus): Status: Chronic Assessment and Plan: noted to be in DKA on admission by anion gap metabolic acidosis, hyperglycemia, and positive beta-hydroxybutyrate presumably triggered by infection/#2 s/p insulin gtt with transition to SQ insulin (long acting and SSI) follow milad hanks control noted by history Subjective Date/time seen: 08/27/22 12:29 The patient appears to be tolerating hemodialysis at the time of my visit (seen on HD at 12:15PM); tolerated dialysis yesterday as well although fluid removal was challenging due to his relative hypotension; pain control appears satisfactory; better hemodynamics noted at this time; transferred out the ICU yesterday afternoon. Exam Narrative: General: WD/WN male in NAD Heart: normal S1 and S2; no rub Lungs: clear to auscultation Abdomen: soft, nontender, nondistended, positive bowel sounds Extremities: no cyanosis or clubbing; left AKA and right BKA Skin: dressing in place over wounds Objective Data Vital Signs Vital Signs: Vital Signs Temp Pulse Resp BP Pulse Ox O2 Del Method 08/27/22 12:29 36.6 C 96 16 129/57 L 08/27/22 12:09 96 110/56 L 08/27/22 12:00 95 122/60 08/27/22 11:30 94 117/54 L 08/27/22 11:00 97 116/60 08/27/22 10:30 94 105/58 L 08/27/22 08:00 91 08/27/22 08:00 Room Air 08/27/22 10:15 97 86/50 L 08/27/22 10:00 97 77/45 L 08/27/22 09:41 94 115/60 08/27/22 09:37 36.8 C 97 16 108/55 L 08/27/22 06:00 37.2 C 97 22 H 157/71 H 96 08/27/22 04:00 96 08/27/22 00:00 101 H 08/26/22 20:00 98 08/26/22 21:04 37.1 C 98 18 111/52 L 98 08/26/22 16:00 36.8 C 101 H 16 98/54 L 100 08/26/22 16:00 99 08/26/22 14:00 99 20 97/52 L 99 08/26/22 14:00 95 Intake/Output Intake/Output: Intake & Output 08/24/22 08/25/22 08/26/22 08/27/22 23:59 23:59 23:59 23:59 Intake Total 350 2850 530 Output Total 600 1054 Balance 350 2250 -524 Meds/Results Medications: Active Medications Generic Name Dose Route Start Last Admin Trade Name Freq PRN Reason Stop Dose Admin Acetaminophen 650 mg 08/26/22 08:40 Acetaminophen 325 Mg Tablet PO Q4H PRN Mild Pain (1-3) or Fever Hydrocodone Bitart/Acetaminophen 1 tab 08/26/22 08:38 08/27/22 06:31 Hydrocodone/Acetaminophen (*Crx) 5-325 Mg Tablet PO 1 tab Q6H PRN Administration Pain Rated 4-6 Cyanocobalamin 1,000 mcg 08/26/22 11:35 08/27/22 08:51 Cyanocobalamin
--- NOTE | 2022-08-27 12:29 | P.PNNP_ITS ---
Progress Note: A&P Assessment and Plan (1) ESRD (end stage renal disease): Code(s): N18.6 - End stage renal disease Status: Chronic Assessment and Plan: * HD today and continue Mon/Mon/Mon/ dialysis schedule * hyperkalemia noted on admission - better this AM * follow electrolytes, volume status, and clearance (2) Decubitus ulcer of sacral area: Code(s): L89.159 - Pressure ulcer of sacral region, unspecified stage Status: Acute Assessment and Plan: * as noted on admission * s/p debridement and washout of sacral/ischium/left hip decubitus ulcers (on 1 ) * follow trend of blood/wound cultrues * on IV antibiotics * General Surgery following * local wound care * pain control (3) Hypotension: Code(s): I95.9 - Hypotension, unspecified Status: Acute Assessment and Plan: * usually hypertensive in general but BP a bit soft * his severe and advanced vascular disease is likely a contributing factor * possible early sepsis related to #2 (?) * follow trend of hemodynamics (4) Anemia: Code(s): D64.9 - Anemia, unspecified Status: Chronic Assessment and Plan: * PRBC transfusion per protocol * likely secondary to debridement/operative intervention + ESRD + Epogen resistance * Epogen with HD * holding blood thinners/anticoagulation * follow H/H (5) IDDM (insulin dependent diabetes mellitus): Status: Chronic Assessment and Plan: * noted to be in DKA on admission by anion gap metabolic acidosis, hyperglycemia, and positive beta-hydroxybutyrate * presumably triggered by infection/#2 * s/p insulin gtt with transition to SQ insulin (long acting and SSI) * follow accucheks * britlle control noted by history Subjective Date/time seen: 08/27/22 12:29 The patient appears to be tolerating hemodialysis at the time of my visit (seen on HD at 12:15PM); tolerated dialysis yesterday as well although fluid removal was challenging due to his relative hypotension; pain control appears satisfactory; better hemodynamics noted at this time; transferred out the ICU yesterday afternoon. Exam Narrative: General: WD/WN male in NAD Heart: normal S1 and S2; no rub Lungs: clear to auscultation Abdomen: soft, nontender, nondistended, positive bowel sounds Extremities: no cyanosis or clubbing; left AKA and right BKA Skin: dressing in place over wounds Objective Data Vital Signs Vital Signs: Vital Signs Temp Pulse Resp BP Pulse Ox O2 Del Method 08/27/22 12:29 36.6 C 96 16 129/57 L 08/27/22 12:09 96 110/56 L 08/27/22 12:00 95 122/60 08/27/22 11:30 94 117/54 L 08/27/22 11:00 97 116/60 08/27/22 10:30 94 105/58 L 08/27/22 08:00 91 08/27/22 08:00 Room Air 08/27/22 10:15 97 86/50 L 08/27/22 10:00 97 77/45 L 08/27/22 09:41 94 115/60 08/27/22 09:37 36.8 C 97 16 108/55 L 08/27/22 06:00 37.2 C 97 22 H 157/71 H 96 08/27/22 04:00 96 08/27/22 00:00 101 H 08/26/22 20:00 98 08/26/22 21:04 37.1 C 98 18 111/52 L 98 08/26/22 16:00 36.8 C 101 H 16 98/54 L 100 08/26/22 16:00 99 08/26/22 14:00 99 20 97/52 L 99 08/26/22 14:00 95
--- NOTE | 2022-08-27 12:30 | PC.NURSE ---
Patient returned from dialysis
[2022-08-27 12:47] LABS: Glucose Point of Care 279 mg/dl (65-105)
--- NOTE | 2022-08-27 13:52 | PM.IMPN ---
Progress Note: A&P Assessment and Plan (1) Decubitus ulcers: Code(s): L89.90 - Pressure ulcer of unspecified site, unspecified stage Status: Chronic Assessment and Plan: -wound Care has been consulted. Patient has a scar tissue has increased. The patient is to being taken to surgery from the ER. -the patient is in [facility] and the patient tells me that he has not seen the wound care nurse for 2 weeks and just saw her today and she recommended that the patient come to the hospital. - The patient is febrile with leukocytosis. His white count was found to be 23.4. The patient is tachycardic and blood pressure has been low. The patient fits the sepsis criteria. Lactic level was normal. -please see photos in the chart. -the patient was started on vancomycin and Zosyn. Pharmacy to renal dose since he is a dialysis patient. -blood cultures are pending. 08/27/2022 interval history: patient is 56 male with history of DM I, ESRD on HD, presented will hyperglycemia was found to have DKA, patient was admitted into ICU, patient was started on insulin drip and gently hydrated, patient blood sugars are trending down patient was seen by operations research analyst and agricultural extension educator and recommended to place on insulin 2units with each meal, also patient is found to scaral wound as well AKA stump, appear to be infected patient is seen by surgery service and had debridement, patient was also in sepsis upon arrival most likely secondary to infected wounds, patient culture no growth so fat, patient is being treated Zosyn and vancomycin, will follow up on blood culture and further recommendation to follow. (2) DKA (diabetic ketoacidoses): Qualifiers: Diabetes mellitus type: type 1 Diabetes mellitus complication detail: without coma Qualified Code(s): E10.10 - Type 1 diabetes mellitus with ketoacidosis without coma Code(s): E11.10 - Type 2 diabetes mellitus with ketoacidosis without coma Status: Resolved Assessment and Plan: -I have consulted the operations research analyst. -the patient's blood sugars are in the 300s. -patient's anion gap is 21. It was recommended that the patient receive a 500 cc bolus of fluids and repeat again if his lungs are clear. However the patient is getting fluids in the OR. -the patient is to be an ICU on a DKA protocol. Which includes having BMPs every 4 hours. He will be on insulin drip. The patient has type 1 diabetes and is very brittle. -the patient will need a dietary consult. Not only is he a diabetic he is malnourished and on dialysis as well. (3) IDDM (insulin dependent diabetes mellitus): Status: Chronic Assessment and Plan: -once the patient is off the insulin drip then we can give him Lantus and start him on a sliding scale insulin. (4) ESRD (end stage renal disease): Code(s): N18.6 - End stage renal disease Status: Chronic Assessment and Plan: -nephrology has been consulted. Patient has hyperkalemia and was given Lokelma. -continue with Dang Nilsa. (5) Anemia: Code(s): D64.9 - Anemia, unspecified Status: Chronic Assessment and Plan: -was likely secondary to his end-stage renal disease. Please continue to monitor. -the patient is at his baseline. (6) Depression with anxiety: Code(s): F41.8 - Other specified anxiety disorders Status: Acute Assessment and Plan: -continue with sertraline (7) Hypertension: Qualifiers: Hypertension type: unspecified Qualified Code(s): I10 - Essential (primary) hypertension Code(s): I10 - Essential (primary) hypertension Status: Acute Assessment and Plan: -the patient is NPO at this time. And his blood pressure is soft. Will need to hold his blood pressure medicine at this time. (8) CHF (congestive heart failure): Qualifiers: Heart failure chronicity: unspecified Heart failure type: unspecified Qualified Code(s): I50.9 - Heart failur
[2022-08-27] MEDS: SILVERGEL (ELTA) 45 ML 1 APPLIC TOPICAL (16:00)
--- NOTE | 2022-08-27 17:11 | PC.NURSE ---
Pt blood sugar is elevated (see labs). Dr Ibarra has been notified. New orders put in (see mar). Scheduled insulin at 1700 not given due to new orders received.
[2022-08-27 17:29] LABS: Glucose Point of Care 444 mg/dl (65-105)
[2022-08-27] MEDS: INSULIN GLARGINE (*BKC) 100 UNITS/ML 10 UNITS SUB-Q (17:31)
[2022-08-27 18:45] LABS: Vancomycin Random 12.9 ug/mL (10-20)
[2022-08-27] MEDS: PANTOPRAZOLE SODIUM IV 40 MG VIAL IV PUSH (21:14)
[2022-08-27] MEDS: INSULIN ASPART (*BKC) 100 UNITS/ML 6 UNITS SUB-Q (21:56)
--- NOTE | 2022-08-27 22:01 | PM.PNGS ---
Progress Note: A&P Assessment and Plan (1) Sepsis: Code(s): A41.9 - Sepsis, unspecified organism Status: Acute Assessment and Plan: WBC slightly improved, HD stable, cont IV abx. (2) Decubitus ulcers: Code(s): L89.90 - Pressure ulcer of unspecified site, unspecified stage Status: Chronic Assessment and Plan: Have had wound care evaluate for vac, cont abx, may need diverting ostomy in the future. Will see dressing change tomorrow and posibly debride some of the crusted dried scab on the left BKA stump. Subjective Subjective Date/Time Seen: 08/27/22 16:01 Post Op day: 2 ( Status post debridement of decubitus) Review of Systems Review of Systems: All systems reviewed & are unremarkable except as noted in HPI and below Exam Const: General: cooperative, comfortable, no acute distress and ill appearing Resp: Auscultation: diminished lung sounds Cardio: Rate: regular rate Rhythm: regular rhythm GI: Inspection: normal to inspection Skin: Other: wounds - dressing C/D/I some areas dry eschar on right BKA stump appeared to have possible purulence under them. Objective Data Vital Signs Vital Signs: Vital Signs - 24 hr 08/27/22 00:00 08/27/22 04:00 08/27/22 06:00 Temperature 37.2 C Pulse Rate 101 H 96 97 Respiratory Rate 22 H Blood Pressure 157/71 H Pulse Oximetry 96 Oxygen Delivery 08/27/22 09:37 08/27/22 09:41 08/27/22 10:00 Temperature 36.8 C Pulse Rate 97 94 97 Respiratory Rate 16 Blood Pressure 108/55 L 115/60 77/45 L Pulse Oximetry Oxygen Delivery 08/27/22 10:15 08/27/22 08:00 08/27/22 08:00 Temperature Pulse Rate 97 91 Respiratory Rate Blood Pressure 86/50 L Pulse Oximetry Oxygen Delivery Room Air 08/27/22 10:30 08/27/22 11:00 08/27/22 11:30 Temperature Pulse Rate 94 97 94 Respiratory Rate Blood Pressure 105/58 L 116/60 117/54 L Pulse Oximetry Oxygen Delivery 08/27/22 12:00 08/27/22 12:09 08/27/22 12:29 Temperature 36.6 C Pulse Rate 95 96 96 Respiratory Rate 16 Blood Pressure 122/60 110/56 L 129/57 L Pulse Oximetry Oxygen Delivery 08/27/22 14:00 08/27/22 12:00 08/27/22 16:00 Temperature 36.8 C Pulse Rate 110 H 94 109 H Respiratory Rate 16 Blood Pressure 113/53 L Pulse Oximetry 100 Oxygen Delivery 08/27/22 21:06 Temperature 37.3 C Pulse Rate 117 H Respiratory Rate 22 H Blood Pressure 158/57 H Pulse Oximetry 98 Oxygen Delivery Intake/Output Intake/Output: Intake & Output 08/24/22 08/25/22 08/26/22 08/27/22 23:59 23:59 23:59 23:59 Intake Total 350 2850 2020 Output Total 600 1054 Balance 350 2250 966 Meds/Results Medications: Active Medications Generic Name Dose Route Start Last Admin Trade Name Freq PRN Reason Stop Dose Admin Acetaminophen 650 mg 08/26/22 08:40 Acetaminophen 325 Mg Tablet PO Q4H PRN Mild Pain (1-3) or Fever Hydrocodone Bitart/Acetaminophen 1 tab 08/26/22 08:38 08/27/22 06:31 Hydrocodone/Acetaminophen (*Crx) 5-325 Mg Tablet PO 1 tab Q6H PRN Administration Pain Rated 4-6 Cyanocobalamin 1,000 mcg 08/26/22 11:35 08/27/22 08:51 Cyanocobalamin 1,000 Mcg Tablet PO Not Given DAILY MARTHA Dextrose 12.5 gm 08/25/22 15:27 08/26/22 07:25 Dextrose 50% 25 Gm/50 Ml Syringe IV PUSH 12.5 gm PRN PRN Administration Hypoglycemia Protocol Gabapentin 300 mg 08/26/22 11:35 08/27/22 08:51 Gabapentin 300 Mg Capsule PO Not Given DAILY MARTHA Glucagon 1 mg 08/25/22 15:27 Glucagon For Inj 1 Mg Vial IM PRN PRN Hypoglycemia Protocol Glucose 15 gm 08/25/22 15:27 Glucose Oral Gel 15 Gm Of Glucse In 37.5 Gm Tube PO PRN PRN Hypoglycemia Protocol Dextrose 1,000 mls @ 100 mls/hr 08/25/22 15:27 Dextrose 5% 1,000 Ml IVPB PRN PRN Hypoglycemia Protocol Piperacillin Sod/Tazobactam Sod 2.25 gm in 50 mls @
[2022-08-28] VITALS (12 sets, daily range): BP systolic 127–165; BP diastolic 66–78; PULSE 99–115; RESP 16–18; TEMP 35.8–37.1; O2SAT 95–100
[2022-08-28 00:34] LABS: Glucose Point of Care 371 mg/dl (65-105)
[2022-08-28 00:34] LABS: Glucose Point of Care 448 mg/dl (65-105)
[2022-08-28] MEDS: INSULIN ASPART (*BKC) 100 UNITS/ML SUB-Q ×6 (08:24→17:46)
[2022-08-28] MEDS: INSULIN GLARGINE (*BKC) 100 UNITS/ML 7 UNITS SUB-Q ×2 (08:25→20:30)
[2022-08-28] MEDS: SERTRALINE HCL 50 MG TABLET 100 MG PO (08:30)
[2022-08-28] MEDS: PANTOPRAZOLE SODIUM IV 40 MG VIAL IV PUSH ×2 (08:30→20:22)
[2022-08-28] MEDS: CHOLECALCIFEROL 1,000 UNITS TABLET 1000 UNITS PO (08:31)
[2022-08-28] MEDS: GABAPENTIN 300 MG CAPSULE PO (08:31)
[2022-08-28] MEDS: VITAMIN B CMPLX/VIT C/FOLIC AC 1 CAPSULE 1 CAP PO (08:31)
[2022-08-28] MEDS: CYANOCOBALAMIN 1,000 MCG TABLET 1000 MCG PO (08:31)
[2022-08-28] MEDS: SILVERGEL (ELTA) 45 ML 1 APPLIC TOPICAL (08:32)
[2022-08-28 08:54] LABS: Glucose Point of Care 262 mg/dl (65-105)
[2022-08-28 10:57] LABS: Hematocrit 21.6 % (42.0-52.0); Mean Corpuscular HGB Conc 31.5 g/dl (32-36); Mean Corpuscular Hemoglobin 28.5 pg (26-34); Mean Corpuscular Volume 90.4 fl (80-100); Mean Platelet Volume 9.4 fl (7.4-10.4); Platelet Count Result 530 k/mm3 (150-375); Red Blood Count 2.39 M/mm3 (4.6-6.20); Red Cell Distribution Width 16.2 % (11.5-14.5); White Blood Count 17.8 K/mm3 (4.5-10.0)
[2022-08-28 11:03] LABS: Hemoglobin 6.8 g/dL (14.0-18.0)
[2022-08-28 11:14] LABS: Albumin Level 2.5 g/dL (3.5-5.1); Anion Gap 12 mmol/L (8-16); Blood Urea Nitrogen 64 mg/dL (9-20); Calcium 8.5 mg/dL (8.4-10.2); Carbon Dioxide 25 mmol/L (22-30); Chloride 98 mmol/L (98-107); Estimated CRCL calculation 16 ml/min; Estimated Glomerular Filt Rate 18; Glucose 289 mg/dL (65-110); Magnesium 1.9 mg/dL (1.6-2.3); Phosphorus 5.6 mg/dL (2.5-4.5); Potassium 4.6 mmol/L (3.4-5.0); Sodium 135 mmol/L (137-145)
[2022-08-28 12:04] LABS: Glucose Point of Care 320 mg/dl (65-105)
--- NOTE | 2022-08-28 12:07 | PM.PNNEP ---
Progress Note: A&P Assessment and Plan (1) ESRD (end stage renal disease): Code(s): N18.6 - End stage renal disease Status: Chronic Assessment and Plan: HD tomorrow to maintain Mon/Mon/Mon/ dialysis schedule K+ doing better at this time follow electrolytes, volume status, and clearance (2) Decubitus ulcer of sacral area: Code(s): L89.159 - Pressure ulcer of sacral region, unspecified stage Status: Acute Assessment and Plan: as noted on admission s/p debridement and washout of sacral/ischium/left hip decubitus ulcers (on 08/25/22) follow trend of blood/wound cultures on IV antibiotics General Surgery following local wound care pain control (3) Anemia: Code(s): D64.9 - Anemia, unspecified Status: Chronic Assessment and Plan: noted drop in H/H by AM labs again PRBC transfusion per protocol multifactorial etiology: debridement/operative intervention ESRD status possible KRISTINA/Epogen resistance (severe inflammation can sometime do this) continue Epogen with HD holding blood thinners/anticoagulation follow H/H (4) Hypertension: Code(s): I10 - Essential (primary) hypertension Status: Acute Assessment and Plan: hypotension resolved BP closer to baseline at this time slowly re-introduce home BP medications follow trend of hemodynamics (5) IDDM (insulin dependent diabetes mellitus): Status: Chronic Assessment and Plan: noted to be in DKA on admission by anion gap metabolic acidosis, hyperglycemia, and positive beta-hydroxybutyrate presumably triggered by infection/#2 s/p insulin gtt with transition to SQ insulin (long acting and SSI) follow milad hanks control noted by history Subjective Date/time seen: 08/28/22 12:07 Tolerated dialysis treatment yesterday but ended his treatment early (which he frequently does even with his outpatient dialysis treatments); no new issues or problems to report although pain control still not optimal; blood pressure appears to be doing better (relatively hypotensive on admission) but slightly tachycardic; H/H low again by AM labs; no other issues/events overnight or earlier this AM. Exam Narrative: General: WD/WN male in NAD Heart: normal S1 and S2; no rub Lungs: clear to auscultation Abdomen: soft, nontender, nondistended, positive bowel sounds Extremities: no cyanosis or clubbing; left AKA and right BKA Skin: dressing in place over wounds Objective Data Vital Signs Vital Signs: Vital Signs Temp Pulse Resp BP Pulse Ox O2 Del Method 08/28/22 12:00 107 H 08/28/22 08:25 Room Air 08/28/22 08:00 105 H 08/28/22 05:48 37.1 C 105 H 18 165/72 H 98 08/28/22 04:00 110 H 08/28/22 00:00 115 H 08/27/22 20:00 119 H 08/27/22 21:06 37.3 C 117 H 22 H 158/57 H 98 08/27/22 16:00 109 H Intake/Output Intake/Output: Intake & Output 08/25/22 08/26/22 08/27/22 08/28/22 23:59 23:59 23:59 23:59 Intake Total 350 2850 2270 410 Output Total 600 1054 Balance 350 2250 1216 410 Meds/Results Medications: Active Medications Generic Name Dose Route Start Last Admin Trade Name Freq PRN Reason Stop Dose Admin Acetaminophen 650 mg 08/26/22 08:40 Acetaminophen 325 Mg Tablet PO Q4H PRN Mild Pain (1-3) or Fever Hydrocodone Bitart/Acetaminophen 1 tab 08/26/22 08:38 08/27/22 06:31 Hydrocodone/Acetaminophen (*Crx) 5-325 Mg Tablet PO 1 tab Q6H PRN Administration Pain Rated 4-6 Cyanocobalamin 1,000 mcg 08/26/22 11:35 08/28/22 08:31 Cyanocobalamin 1,000 Mcg Tablet PO 1,000 mcg DAILY MARTHA Administration Dextrose 12.5 gm 08/25/22 15:27 08/26/22 07:25 Dextrose 50% 25 Gm/50 Ml Syringe IV PUSH 12.5 gm PRN PRN Administration Hypoglycemia Protocol Gabapentin 300 mg 08/26/22 11:35 08/28/22 08:31 Gabapentin 300 Mg Capsule
--- NOTE | 2022-08-28 12:07 | P.PNNP_ITS ---
Progress Note: A&P Assessment and Plan (1) ESRD (end stage renal disease): Code(s): N18.6 - End stage renal disease Status: Chronic Assessment and Plan: * HD tomorrow to maintain Mon/Mon/Mon/ dialysis schedule * K+ doing better at this time * follow electrolytes, volume status, and clearance (2) Decubitus ulcer of sacral area: Code(s): L89.159 - Pressure ulcer of sacral region, unspecified stage Status: Acute Assessment and Plan: * as noted on admission * s/p debridement and washout of sacral/ischium/left hip decubitus ulcers (on 08/25/22) * follow trend of blood/wound cultures * on IV antibiotics * General Surgery following * local wound care * pain control (3) Anemia: Code(s): D64.9 - Anemia, unspecified Status: Chronic Assessment and Plan: * noted drop in H/H by AM labs again * PRBC transfusion per protocol * multifactorial etiology: * debridement/operative intervention * ESRD status * possible KRISTINA/Epogen resistance (severe inflammation can sometime do this) * continue Epogen with HD * holding blood thinners/anticoagulation * follow H/H (4) Hypertension: Code(s): I10 - Essential (primary) hypertension Status: Acute Assessment and Plan: * hypotension resolved * BP closer to baseline at this time * slowly re-introduce home BP medications * follow trend of hemodynamics (5) IDDM (insulin dependent diabetes mellitus): Status: Chronic Assessment and Plan: * noted to be in DKA on admission by anion gap metabolic acidosis, hyperglycemi a, and positive beta-hydroxybutyrate * presumably triggered by infection/#2 * s/p insulin gtt with transition to SQ insulin (long acting and SSI) * follow accucheks * britlle control noted by history Subjective Date/time seen: 08/28/22 12:07 Tolerated dialysis treatment yesterday but ended his treatment early (which he frequently does even with his outpatient dialysis treatments); no new issues or problems to report although pain control still not optimal; blood pressure appears to be doing better (relatively hypotensive on admission) but slightly tachycardic; H/H low again by AM labs; no other issues/events overnight or earlier this AM. Exam Narrative: General: WD/WN male in NAD Heart: normal S1 and S2; no rub Lungs: clear to auscultation Abdomen: soft, nontender, nondistended, positive bowel sounds Extremities: no cyanosis or clubbing; left AKA and right BKA Skin: dressing in place over wounds Objective Data Vital Signs Vital Signs: Vital Signs Temp Pulse Resp BP Pulse Ox O2 Del Method 08/28/22 12:00 107 H 08/28/22 08:25 Room Air 08/28/22 08:00 105 H 08/28/22 05:48 37.1 C 105 H 18 165/72 H 98 08/28/22 04:00 110 H 08/28/22 00:00 115 H 08/27/22 20:00 119 H 08/27/22 21:06 37.3 C 117 H 22 H 158/57 H 98 08/27/22 16:00 109 H Intake/Output Intake/Output: Intake & Output 08/25/22 08/26/22 08/27/22 08/28/22 23:59 23:59 23:59 23:59 Intake Total 350 2850 2270 410 Output Total 600 1054 Balance 350 2250 1216 410 Meds/Results Medications: Active Medications
[2022-08-28] MEDS: SODIUM CHLORIDE 0.9% IV 250 ML 30 ML IV CONT (12:12)
--- NOTE | 2022-08-28 14:16 | PM.IMPN ---
Progress Note: A&P Assessment and Plan (1) Decubitus ulcers: Code(s): L89.90 - Pressure ulcer of unspecified site, unspecified stage Status: Chronic Assessment and Plan: -wound Care has been consulted. Patient has a scar tissue has increased. The patient is to being taken to surgery from the ER. -the patient is in [facility] and the patient tells me that he has not seen the wound care nurse for 2 weeks and just saw her today and she recommended that the patient come to the hospital. - The patient is febrile with leukocytosis. His white count was found to be 23.4. The patient is tachycardic and blood pressure has been low. The patient fits the sepsis criteria. Lactic level was normal. -please see photos in the chart. -the patient was started on vancomycin and Zosyn. Pharmacy to renal dose since he is a dialysis patient. -blood cultures are pending. 08/28/2022 interval history: patient is 56 male with history of DM I, ESRD on HD, presented will hyperglycemia was found to have DKA, patient was admitted into ICU, patient was started on insulin drip and gently hydrated, patient blood sugars were trending down insulin drip was stopped and started on long acting 7U daily, and slinding scale, patient was seen by dirt shoveler and pulping machine operator and recommended to place on insulin 2units with each meal, patient was found to eating candies in his room difficult to control his blood sugars, also patient is found to scaral wound as well AKA stump, these wounds are oozing blood, appear to be infected patient is seen by surgery service and had debridement, patient was also in sepsis upon arrival most likely secondary to infected wounds, patient culture no growth so far, patient is being treated Zosyn and vancomycin, will follow up on blood culture and further recommendation to follow. (2) DKA (diabetic ketoacidoses): Qualifiers: Diabetes mellitus type: type 1 Diabetes mellitus complication detail: without coma Qualified Code(s): E10.10 - Type 1 diabetes mellitus with ketoacidosis without coma Code(s): E11.10 - Type 2 diabetes mellitus with ketoacidosis without coma Status: Resolved Assessment and Plan: -I have consulted the dirt shoveler. -the patient's blood sugars are in the 300s. -patient's anion gap is 21. It was recommended that the patient receive a 500 cc bolus of fluids and repeat again if his lungs are clear. However the patient is getting fluids in the OR. -the patient is to be an ICU on a DKA protocol. Which includes having BMPs every 4 hours. He will be on insulin drip. The patient has type 1 diabetes and is very brittle. -the patient will need a dietary consult. Not only is he a diabetic he is malnourished and on dialysis as well. (3) IDDM (insulin dependent diabetes mellitus): Status: Chronic Assessment and Plan: -once the patient is off the insulin drip then we can give him Lantus and start him on a sliding scale insulin. (4) ESRD (end stage renal disease): Code(s): N18.6 - End stage renal disease Status: Chronic Assessment and Plan: -nephrology has been consulted. Patient has hyperkalemia and was given Lokelma. -continue with Dang Nilsa. (5) Anemia: Code(s): D64.9 - Anemia, unspecified Status: Chronic Assessment and Plan: -was likely secondary to his end-stage renal disease. Please continue to monitor. -the patient is at his baseline. (6) Depression with anxiety: Code(s): F41.8 - Other specified anxiety disorders Status: Acute Assessment and Plan: -continue with sertraline (7) Hypertension: Qualifiers: Hypertension type: unspecified Qualified Code(s): I10 - Essential (primary) hypertension Code(s): I10 - Essential (primary) hypertension Status: Acute Assessment and Plan: -the patient is NPO at this time. And his blood pressure is soft. Will need to hold his blood press
[2022-08-28] MEDS: HYDROcodone/acetaminophen (*CRX) 5-325 MG TABLET 1 TAB PO (15:06)
[2022-08-28 17:31] LABS: Glucose Point of Care 230 mg/dl (65-105)
[2022-08-28] MEDS: LORazepam (*CRX) 0.5 MG TABLET PO (18:26)
--- NOTE | 2022-08-28 18:38 | PM.PNGS ---
Progress Note: A&P Assessment and Plan (1) Decubitus ulcer of sacral area: Code(s): L89.159 - Pressure ulcer of sacral region, unspecified stage Status: Acute Assessment and Plan: Because of these wounds that surround the anal opening will ask the wound clinic nurses to consider a specialized wound VAC which isolates the anal opening allows backing the tire tire surrounding wound. This cannot be a placed will consider diverting colostomy later this week. In that situation will ask them to jyoti patient for left lower quadrant colostomy. Patient indicated his willingness to proceed with colostomy if necessary. some areas dry eschar on right BKA stump appeared to have possible purulence under them (2) Sepsis: Code(s): A41.9 - Sepsis, unspecified organism Status: Acute Assessment and Plan: WBC slightly improved, HD stable, cont IV abx. Subjective Subjective Date/Time Seen: 08/28/22 15:38 Post Op day: 3 ( Sepsis seems to be clearing.) Patient reports: no new complaints and feels better Interval history: Patient alert and oriented when a 0 entered the room. He cooperated with dressing changes this date. States that he is eating okay and denies pain with any of his wounds. Review of Systems Review of Systems: All systems reviewed & are unremarkable except as noted in HPI and below Exam Const: General: cooperative, comfortable, no acute distress and ill appearing Resp: Auscultation: diminished lung sounds Cardio: Rate: regular rate Rhythm: regular rhythm GI: Inspection: normal to inspection Skin: Other: wounds - Sacral area: Some areas of necrotic tissue that are dry and brown. ( These were debrided at the bedside see separate ) redressed with Silver gel gauze and covered with ABDs Lateral trochanteric area: As approximately 8 cm round skin area of loss with exposed muscle but no exposed bone. This remains well debrided and was redressed with Silver gel 4x4s Left ischial area: Deep penetrating ulcer has a supposed muscle but no bone. Redressed with Silver gel and 4x4s. Distal and of right BKA stump. There is a dry eschar with loss of normal skin for the entire and. There appears to be some tunneling with an underlying infection. (Some of this was debrided culture sent ) this was dressed with silver gel 4x4s Kerlix roll and Osmar wrap. Because of these wounds fact the surround the anal opening will ask the wound clinic to consider a specialized wound VAC which isolates the anal opening allows backing the tire tire surrounding wound. This cannot be a placed will consider diverting colostomy later this week. In that situation will ask them to jyoti patient for left lower quadrant colostomy. Patient indicated his willingness to proceed with colostomy if necessary. some areas dry eschar on right BKA stump appeared to have possible purulence under them. Objective Data Vital Signs Vital Signs: Vital Signs - 24 hr 08/27/22 21:06 08/27/22 20:00 08/28/22 00:00 Temperature 37.3 C Pulse Rate 117 H 119 H 115 H Respiratory Rate 22 H Blood Pressure 158/57 H Pulse Oximetry 98 Oxygen Delivery 08/28/22 04:00 08/28/22 05:48 08/28/22 08:00 Temperature 37.1 C Pulse Rate 110 H 105 H 105 H Respiratory Rate 18 Blood Pressure 165/72 H Pulse Oximetry 98 Oxygen Delivery 08/28/22 08:25 08/28/22 12:00 08/28/22 13:50 Temperature 36.2 C L Pulse Rate 107 H 108 H Respiratory Rate 18 Blood Pressure 127/67 Pulse Oximetry 97 Oxygen Delivery Room Air 08/28/22 14:05 08/28/22 15:05 08/28/22 16:00 Temperature 36.2 C L 36.4 C L Pulse Rate 100 100 100 Respiratory Rate 16 16 Blood Pressure 149/75 H 137/78 Pulse Oximetry 100 97 Oxygen Delivery 08/28/22 16:00 08/28/22 17:32 Temperature 36.2 C L 35.8 C L Pulse Rate 100 99 Respiratory Rate 18 18 Blood Pressure 148/72 H 141/69 H Pulse Oximetry 100 100 Oxygen Delivery Intake/Output
[2022-08-28 19:51] LABS: Hematocrit 27.1 % (42.0-52.0); Hemoglobin 8.3 g/dL (14.0-18.0)
[2022-08-28] MEDS: NICOTINE (*PBKC) 21 MG PATCH 1 PATCH TRANSDERM (20:22)
[2022-08-28] MEDS: TOLNAFTATE 1% POWDER 45 GM BTL 1 APPLIC TOPICAL (20:23)
[2022-08-28 21:11] LABS: Glucose Point of Care 320 mg/dl (65-105)
--- NOTE | 2022-08-28 23:53 | W.PM.PROC2 ---
Procedure Note - Detailed Date of Procedure 08/28/22 Pre-op Diagnosis 1. Ulcers to sacrum, 2.Necrotic wound distal right BK stump Post-op Diagnosis Same Procedure Performed bedside debridement at sacral decubitus Bedside debridement culture of distal BK stump Surgeon Jovanny Ramirez MD Anesthesia None ( patient has diabetic neuropathy and these pressure sores had no significant innervation.) Findings Some necrotic tissue along the superior right lateral edge of the previously debrided sacral decubitus and along some of the center. Necrotic thick hardened skin overlying the distal and patient's BK stump Description of Procedure After receiving verbal permission from the patient the patient rolled on his far right side we removed all the dressings on his sacral decubitus wound. There was brownish thick necrotic tissues within the wound which was down to muscle. I debrided necrotic tendon and muscle and did not expose any bone. Approximately 5 sq cm of tissue debrided this date. After this we turned our attention to his BKA stump the entire distal end of this coming up anteriorly was a crusted hard skin. Appeared to be some purulence underneath there. Therefore along the anterolateral edge I used scissors from a suture removal kit to carefully excise a 5 x 2 cm area of this thickened hard eschar we then compressed the distal and and cultured some purulence that came up out of this area. Separate area along the medial edge I debrided a 5 by 1 cm area and also applied silver gel to both of these areas then applied 4x4s and a Kerlix roll and an Osmar wrap to dress it. Will await culture results. (Patient already on triple antibiotics ). Implants None Estimated Blood Loss 5 Urine Output 0 Drains No Packing Yes ( redressed with Silver gel 4x4s and fluffs covered with ABD) Complications No immediate complications Condition Stable Disposition No change [facility] Billing Surgery - Charge Forward: Surgery Billing ( bedside debridement of muscle and tendon sacral decubitus, debridement necrotic skin and subcutaneous tissue right BKA stump)
[2022-08-29] VITALS (20 sets, daily range): BP systolic 94–175; BP diastolic 53–85; PULSE 92–114; RESP 16–22; TEMP 36–37.1; O2SAT 94–95
[2022-08-29 05:43] LABS: Hemoglobin 8.6 g/dL (14.0-18.0); Mean Corpuscular HGB Conc 31.9 g/dl (32-36); Mean Corpuscular Hemoglobin 27.9 pg (26-34); Mean Corpuscular Volume 87.7 fl (80-100); Mean Platelet Volume 9.8 fl (7.4-10.4); Platelet Count Result 495 k/mm3 (150-375); Red Blood Count 3.08 M/mm3 (4.6-6.20); White Blood Count 17.9 K/mm3 (4.5-10.0)
[2022-08-29 05:56] LABS: Albumin Level 2.6 g/dL (3.5-5.1); Anion Gap 14 mmol/L (8-16); Blood Urea Nitrogen 81 mg/dL (9-20); Calcium 8.4 mg/dL (8.4-10.2); Carbon Dioxide 25 mmol/L (22-30); Chloride 94 mmol/L (98-107); Estimated CRCL calculation 12 ml/min; Estimated Glomerular Filt Rate 13; Glucose 312 mg/dL (65-110); Magnesium 1.9 mg/dL (1.6-2.3); Phosphorus 6.1 mg/dL (2.5-4.5); Potassium 4.8 mmol/L (3.4-5.0); Sodium 133 mmol/L (137-145)
[2022-08-29 07:35] LABS: Glucose Point of Care 278 mg/dl (65-105)
[2022-08-29] MEDS: NICOTINE (*PBKC) 21 MG PATCH 1 PATCH TRANSDERM (08:33)
[2022-08-29] MEDS: INSULIN ASPART (*BKC) 100 UNITS/ML SUB-Q ×5 (08:34→17:34)
[2022-08-29] MEDS: INSULIN GLARGINE (*BKC) 100 UNITS/ML 7 UNITS SUB-Q ×2 (08:34→23:12)
[2022-08-29] MEDS: SILVERGEL (ELTA) 45 ML 1 APPLIC TOPICAL (08:35)
[2022-08-29] MEDS: PANTOPRAZOLE SODIUM IV 40 MG VIAL IV PUSH ×2 (08:35→20:58)
[2022-08-29] MEDS: TOLNAFTATE 1% POWDER 45 GM BTL 1 APPLIC TOPICAL ×2 (08:35→21:10)
[2022-08-29] MEDS: SILVER NITRATE (*SP) STICK 2 EACH TOPICAL (08:36)
[2022-08-29] MEDS: LORazepam (*CRX) 0.5 MG TABLET PO (08:41)
--- NOTE | 2022-08-29 10:47 | P.PNNP_ITS ---
Progress Note: A&P Assessment and Plan (1) ESRD (end stage renal disease): Code(s): N18.6 - End stage renal disease Status: Chronic Assessment and Plan: * HD under way. * Potassium is normal * volume status looks pretty good. (2) Decubitus ulcer of sacral area: Code(s): L89.159 - Pressure ulcer of sacral region, unspecified stage Status: Acute Assessment and Plan: * as noted on admission * s/p debridement and washout of sacral/ischium/left hip decubitus ulcers (on 08/25/22) * getting local wound care. * follow trend of blood/wound cultures * on IV antibiotics (3) Anemia: Code(s): D64.9 - Anemia, unspecified Status: Chronic Assessment and Plan: * Hemoglobin 8.6 today. * Anemia is due to inflammation plus ESRD. He probably lost some blood during the debridement as well. * continue Epogen with HD * No need for iron levels since he has an infection. * Check a CBC tomorrow (4) Hypertension: Code(s): I10 - Essential (primary) hypertension Status: Acute Assessment and Plan: * hypotension resolved * blood pressure was backup before dialysis but it has dropped with ultrafiltration. * Will follow trends of his blood pressure to decide when to restart his outpatient antihypertensives. (5) IDDM (insulin dependent diabetes mellitus): Status: Chronic Assessment and Plan: * noted to be in DKA on admission by anion gap metabolic acidosis, hyperglycemia, and positive beta-hydroxybutyrate * presumably triggered by infection/#2 * Now on subcu insulin. * I do not feel comfortable with a regular diet. Subjective Date/time seen: 08/29/22 10:47 Interval history: Ish is feeling okay. He wants a regular diet. His wounds are getting local care. He is on dialysis now. He is tolerating it well. He was seen at 10:35 a.m. Review of Systems Cardiovascular: Cardiovascular: Reports no additional cardiovascular complaints Respiratory: Respiratory: Reports no additional respiratory complaints Gastrointestinal: Gastrointestinal: Reports no additional gastrointestinal complaints Genitourinary: Genitourinary: Reports no additional male genitourinary complaints Exam Narrative: General: WD/WN male in NAD Heart: normal S1 and S2; no rub or gallop Lungs: clear Abdomen: soft, nontender, nondistended, positive bowel sounds Extremities: no cyanosis or clubbing; left AKA and right BKA Skin: no acute rash Objective Data Vital Signs Vital Signs: Vital Signs - 24 hr 08/28/22 12:00 08/28/22 13:50 08/28/22 14:05 Temperature 36.2 C L 36.2 C L Pulse Rate 107 H 108 H 100 Respiratory Rate 18 16 Blood Pressure 127/67 149/75 H Pulse Oximetry 97 100 Oxygen Delivery 08/28/22 15:05 08/28/22 16:00 08/28/22 16:00 Temperature 36.4 C L 36.2 C L Pulse Rate 100 100 100 Respiratory Rate 16 18 Blood Pressure 137/78 148/72 H Pulse Oximetry 97 100 Oxygen Delivery 08/28/22 17:32 08/28/22 21:31 08/28/22 20:00 Temperature 35.8 C L 36.4 C Pulse Rate 99 102 H Respiratory Rate 18 18 Blood Pressure 141/69 H 150/66 H Pulse Oximetry 100 95
--- NOTE | 2022-08-29 10:47 | PM.PNNEP ---
Progress Note: A&P Assessment and Plan (1) ESRD (end stage renal disease): Code(s): N18.6 - End stage renal disease Status: Chronic Assessment and Plan: HD under way. Potassium is normal volume status looks pretty good. (2) Decubitus ulcer of sacral area: Code(s): L89.159 - Pressure ulcer of sacral region, unspecified stage Status: Acute Assessment and Plan: as noted on admission s/p debridement and washout of sacral/ischium/left hip decubitus ulcers (on 08/25/22) getting local wound care. follow trend of blood/wound cultures on IV antibiotics (3) Anemia: Code(s): D64.9 - Anemia, unspecified Status: Chronic Assessment and Plan: Hemoglobin 8.6 today. Anemia is due to inflammation plus ESRD. He probably lost some blood during the debridement as well. continue Epogen with HD No need for iron levels since he has an infection. Check a CBC tomorrow (4) Hypertension: Code(s): I10 - Essential (primary) hypertension Status: Acute Assessment and Plan: hypotension resolved blood pressure was backup before dialysis but it has dropped with ultrafiltration. Will follow trends of his blood pressure to decide when to restart his outpatient antihypertensives. (5) IDDM (insulin dependent diabetes mellitus): Status: Chronic Assessment and Plan: noted to be in DKA on admission by anion gap metabolic acidosis, hyperglycemia, and positive beta-hydroxybutyrate presumably triggered by infection/#2 Now on subcu insulin. I do not feel comfortable with a regular diet. Subjective Date/time seen: 08/29/22 10:47 Interval history: Ish is feeling okay. He wants a regular diet. His wounds are getting local care. He is on dialysis now. He is tolerating it well. He was seen at 10:35 a.m. Review of Systems Cardiovascular: Cardiovascular: Reports no additional cardiovascular complaints Respiratory: Respiratory: Reports no additional respiratory complaints Gastrointestinal: Gastrointestinal: Reports no additional gastrointestinal complaints Genitourinary: Genitourinary: Reports no additional male genitourinary complaints Exam Narrative: General: WD/WN male in NAD Heart: normal S1 and S2; no rub or gallop Lungs: clear Abdomen: soft, nontender, nondistended, positive bowel sounds Extremities: no cyanosis or clubbing; left AKA and right BKA Skin: no acute rash Objective Data Vital Signs Vital Signs: Vital Signs - 24 hr 08/28/22 12:00 08/28/22 13:50 08/28/22 14:05 Temperature 36.2 C L 36.2 C L Pulse Rate 107 H 108 H 100 Respiratory Rate 18 16 Blood Pressure 127/67 149/75 H Pulse Oximetry 97 100 Oxygen Delivery 08/28/22 15:05 08/28/22 16:00 08/28/22 16:00 Temperature 36.4 C L 36.2 C L Pulse Rate 100 100 100 Respiratory Rate 16 18 Blood Pressure 137/78 148/72 H Pulse Oximetry 97 100 Oxygen Delivery 08/28/22 17:32 08/28/22 21:31 08/28/22 20:00 Temperature 35.8 C L 36.4 C Pulse Rate 99 102 H Respiratory Rate 18 18 Blood Pressure 141/69 H 150/66 H Pulse Oximetry 100 95 Oxygen Delivery Room Air 08/28/22 20:00 08/29/22 00:00 08/29/22 01:46 Temperature Pulse Rate 104 H 114 H Respiratory Rate Blood Pressure Pulse Oximetry 94 Oxygen Delivery Room Air 08/29/22 04:10 08/29/22 04:00 08/29/22 09:11 Temperature 36.8 C 36.8 C Pulse Rate 107 H 108 H 102 H Respiratory Rate 18 18 Blood Pressure 158/74 H 164/79 H Pulse Oximetry 94 Oxygen Delivery 08/29/22 09:03 Temperature Pulse Rate 101 H Respiratory Rate Blood Pressure 175/85 H Pulse Oximetry Oxygen Delivery Intake/Output Intake/Output: Intake & Output 08/26/22 08/27/22 08/28/22 08/29/22 23:59 23:59 23:59 23:59 Intake Total 2850 2270 1106 350 Output Total 600 1054 0 Balance 2250 1216 1106 350 Meds/Results Medications: Acti
--- NOTE | 2022-08-29 11:23 | PCNFU ---
Nutrition Follow-Up Complete: Increased protein energy needs related to wound healing as evidenced by wound report. Goal:Adequate PO intake at least 75% meals Tolerate supplements Pt current nutrition is diabetic consistent carb, Nepro shakes BID, Rafal BID. Nutrition recommendation: Continue with current plan of care. Last recorded weight is 54.5 kg - up from 50.1kg on admission Bowel Motility: +BM10/17 Labs Reviewed: Hgb:8.6, HCT:27, Alb:2.6, NA:133, BUN:81, Cr:4.8, GLU:312 Meds Noted: novolog, lantus, protonix Skin: multiple areas of skin breakdown. Additional Notes: Pt continues on a diabetic diet, supplements in place for energy and protein needs r/t wounds. Intake is good at 100%. Agree with diet orders. Monitor intakes, weights, skin, labs, discharge planning. Follow up in 5 days
[2022-08-29] MEDS: EPOETIN ALFA-EPBX 10,000 UNITS/ML VIAL 10000 UNITS IV PUSH (12:11)
[2022-08-29] MEDS: SODIUM CHLORIDE 0.9% IV 1,000 ML 999 ML IV CONT (12:11)
[2022-08-29 12:36] LABS: Glucose Point of Care 190 mg/dl (65-105)
[2022-08-29] MEDS: CYANOCOBALAMIN 1,000 MCG TABLET 1000 MCG PO (13:14)
[2022-08-29] MEDS: GABAPENTIN 300 MG CAPSULE PO (13:14)
[2022-08-29] MEDS: CHOLECALCIFEROL 1,000 UNITS TABLET 1000 UNITS PO (13:14)
[2022-08-29] MEDS: VITAMIN B CMPLX/VIT C/FOLIC AC 1 CAPSULE 1 CAP PO (13:14)
[2022-08-29] MEDS: SERTRALINE HCL 50 MG TABLET 100 MG PO (13:15)
--- NOTE | 2022-08-29 14:48 | PM.PNGS ---
Progress Note: A&P Assessment and Plan (1) Decubitus ulcer of sacral area: Code(s): L89.159 - Pressure ulcer of sacral region, unspecified stage Status: Acute Assessment and Plan: The sacral decubitus ulcer extends to the anal verge and the patient continues to have frequent stool incontinence. The sacral wound would not be a candidate for a wound vac at this time due to the inability to get adequate seal at the anus with continued stool incontinence. We discussed the option of a diverting colostomy with the patient. This would divert stool and allow for wound vac placement as well as prevent continued frequent soilage of the wound that could create more complications with wound healing and infection. He agrees to proceeding with the diverting colostomy. We were able to add him onto the surgery schedule tomorrow. Will start bowel prep and pre-operative antibiotics today. Dr. Ramirez will speak with the patient again in the morning to discuss the surgery again and answer any questions. Continue local wound care with silver gel dressing changes. Could potentially apply a wound vac to his wounds once he has a diverting colostomy, will re-evaluate in 1-2 days after surgery. (2) Sepsis: Code(s): A41.9 - Sepsis, unspecified organism Status: Acute Assessment and Plan: WBC slightly improved, HD stable, cont IV antibiotics. (3) Status post below knee amputation of right lower extremity: Code(s): Z89.511 - Acquired absence of right leg below knee Status: Acute Assessment and Plan: Right BKA stump s/p bedside debridement on 08/28 now with some purulent drainage. Wound cx pending. Continue local wound care with silver gel dressing changes. May also consider doing further bedside debridement of the right BKA stump in the next 1-2 days if needed. Plan I have discussed the patient's case and plan of care with Dr. Ramirez. Subjective Subjective Date/Time Seen: 08/29/22 14:48 Patient reports: no new complaints and afebrile Interval history: Patient seen and examined with the wound care nurses. His only complaint is the chronic pain he deals with due to his wounds. No acute events overnight. Continues to have issues with frequent stool incontinence and soiling his sacral and ischial wounds. Review of Systems Review of Systems: All systems reviewed & are unremarkable except as noted in HPI and below Exam Const: General: comfortable, no acute distress and awake Orientation/consciousness: patient oriented x3 : Male General Exam: Yes Genital lesions present (superficial wound on glans with small amount of yellow slough, no drainage) Skin: Other: Large sacral decubitus ulcer still with majority of the wound bed with yellow and chun slough and a few areas of dark necrotic tissue at the skin level on the wound edges. No purulent drainage or foul odor. This ulcer extends to the anal verge. The patient had stool incontinence twice just while changing in his dressing. Left ischial ulcer with yellow and chun slough and some areas of necrotic tissue, no granulation tissue visible. No purulent drainage or foul odor. Left greater trochanter ulcer with some exposed pale gomez muscle and a small area of some pink tissue. No purulent drainage or foul odor. Right BKA stump dressing removed, the majority of the stump is still covered by a large black firm eschar, now with open wounds on the anterior aspect of the stump from debridement, with a scant amount of chun purulent drainage, necrotic tissue visible at the edges beneath the surface of the eschar. Extrem: General: amputation noted Below the knee: right and Above the knee: left Right lower extremity: no edema Left lower extremity: no edema Objective Data Vital Signs Vital Signs: Vital Signs - 24 hr 08/28/22 15:05 08/28/22 16:00 08/28/22 16:00 Temperature 97.5 F L 97.2 F L Pulse Rate 100 100 100 Respiratory Rate 16 18 Blood Pressure
--- NOTE | 2022-08-29 14:52 | PCWOUND ---
WOCN NOTE Received order to jyoti both side of abdomen for suggested ostomy placement sites. had patient lay flat, and sit up. marked both right and left abdomen with black marker X and covered spot with Tegaderm dressings.
--- NOTE | 2022-08-29 15:42 | PM.IMPN ---
Progress Note: A&P Assessment and Plan (1) Decubitus ulcers: Code(s): L89.90 - Pressure ulcer of unspecified site, unspecified stage Status: Chronic Assessment and Plan: -wound Care has been consulted. Patient has a scar tissue has increased. The patient is to being taken to surgery from the ER. -the patient is in [facility] and the patient tells me that he has not seen the wound care nurse for 2 weeks and just saw her today and she recommended that the patient come to the hospital. - The patient is febrile with leukocytosis. His white count was found to be 23.4. The patient is tachycardic and blood pressure has been low. The patient fits the sepsis criteria. Lactic level was normal. -please see photos in the chart. -the patient was started on vancomycin and Zosyn. Pharmacy to renal dose since he is a dialysis patient. -blood cultures are pending. 08/29/2022 interval history: patient is 56 male with history of DM I, ESRD on HD, presented with hyperglycemia was found to have DKA, patient was admitted into ICU, patient was started on insulin drip and gently hydrated, patient blood sugars were trending down insulin drip was stopped and started on long acting 7U daily, and slinding scale, patient was seen by public health aide and community educator and recommended to place on insulin 2units with each meal, patient was found to eating candies in his room difficult to control his blood sugars, also patient is found to scaral wound as well AKA stump, these wounds are oozing blood, appear to be infected patient is seen by surgery service and had debridement, patient sacral wound is very close to anal and wound constantly soiled, surgery is recommending diverting colostomy to prevent wound contamination and patient is agreeable, surgery will evaluate and further recommendation to follow, patient was also in sepsis upon arrival most likely secondary to infected wounds, patient culture no growth so far, patient is being treated Zosyn and vancomycin, will follow up on blood culture and further recommendation to follow. (2) DKA (diabetic ketoacidoses): Qualifiers: Diabetes mellitus type: type 1 Diabetes mellitus complication detail: without coma Qualified Code(s): E10.10 - Type 1 diabetes mellitus with ketoacidosis without coma Code(s): E11.10 - Type 2 diabetes mellitus with ketoacidosis without coma Status: Resolved Assessment and Plan: -I have consulted the public health aide. -the patient's blood sugars are in the 300s. -patient's anion gap is 21. It was recommended that the patient receive a 500 cc bolus of fluids and repeat again if his lungs are clear. However the patient is getting fluids in the OR. -the patient is to be an ICU on a DKA protocol. Which includes having BMPs every 4 hours. He will be on insulin drip. The patient has type 1 diabetes and is very brittle. -the patient will need a dietary consult. Not only is he a diabetic he is malnourished and on dialysis as well. (3) IDDM (insulin dependent diabetes mellitus): Status: Chronic Assessment and Plan: -once the patient is off the insulin drip then we can give him Lantus and start him on a sliding scale insulin. (4) ESRD (end stage renal disease): Code(s): N18.6 - End stage renal disease Status: Chronic Assessment and Plan: -nephrology has been consulted. Patient has hyperkalemia and was given Lokelma. -continue with Dang Nilsa. (5) Anemia: Code(s): D64.9 - Anemia, unspecified Status: Chronic Assessment and Plan: -was likely secondary to his end-stage renal disease. Please continue to monitor. -the patient is at his baseline. (6) Depression with anxiety: Code(s): F41.8 - Other specified anxiety disorders Status: Acute Assessment and Plan: -continue with sertraline (7) Hypertension: Qualifiers: Hypertension type: unspecified Qualified Code(s): I10 - Alex
[2022-08-29] MEDS: ERYTHROMYCIN 250 MG TABLET 1000 MG PO ×3 (16:18→23:45)
[2022-08-29] MEDS: metroNIDAZOLE 250 MG TABLET 500 MG PO ×3 (16:18→23:45)
[2022-08-29 16:37] LABS: Glucose Point of Care 400 mg/dl (65-105)
--- NOTE | 2022-08-29 16:49 | PC.NURSE ---
Pt's blood sugars have been elevated. The last blood sugar taken was 400. RN found jolly ranchers, mcdonalds, and reeses peanut butter cups in pt's room. Pt's has been bringing them into the hospital. RN asked the to not bring in outside food so we can get pt's blood sugar under control. Pt placed on a clear liquid diet for surgery tomorrow.
[2022-08-29] MEDS: polyethylene glycoL 3350 238 GM BOTTLE PO (18:30)
[2022-08-29 19:01] LABS: Vancomycin Random 14.4 ug/mL (10-20)
[2022-08-29 21:37] LABS: Glucose Point of Care > 500 mg/dl (65-105)
[2022-08-29 21:37] LABS: Glucose Point of Care > 500 mg/dl (65-105)
[2022-08-29 22:46] LABS: Glucose 686 mg/dL (65-110)
[2022-08-29] MEDS: INSULIN ASPART (*BKC) 100 UNITS/ML 10 UNITS SUB-Q (23:13)
[2022-08-29 23:30] LABS: Anion Gap 11 mmol/L (8-16); Blood Urea Nitrogen 55 mg/dL (9-20); Calcium 8.3 mg/dL (8.4-10.2); Carbon Dioxide 25 mmol/L (22-30); Chloride 93 mmol/L (98-107); Estimated CRCL calculation 20 ml/min; Estimated Glomerular Filt Rate 22; Glucose 689 mg/dL (65-110); Potassium 4.4 mmol/L (3.4-5.0); Sodium 129 mmol/L (137-145)
[2022-08-30] VITALS (18 sets, daily range): BP systolic 92–141; BP diastolic 55–75; PULSE 77–104; RESP 16–20; TEMP 36.1–37.4; O2SAT 96–100
[2022-08-30] MEDS: INSULIN ASPART (*BKC) 100 UNITS/ML 18 UNITS SUB-Q (01:52)
[2022-08-30 02:26] LABS: Glucose 675 mg/dL (65-110)
[2022-08-30 03:28] LABS: Glucose Point of Care > 500 mg/dl (65-105)
[2022-08-30 05:48] LABS: Hematocrit 25.7 % (42.0-52.0); Hemoglobin 8.1 g/dL (14.0-18.0); Mean Corpuscular HGB Conc 31.5 g/dl (32-36); Mean Corpuscular Hemoglobin 28.1 pg (26-34); Mean Corpuscular Volume 89.2 fl (80-100); Mean Platelet Volume 9.8 fl (7.4-10.4); Platelet Count Result 471 k/mm3 (150-375); Red Blood Count 2.88 M/mm3 (4.6-6.20); Red Cell Distribution Width 16.9 % (11.5-14.5); White Blood Count 16.5 K/mm3 (4.5-10.0)
[2022-08-30 06:00] LABS: Albumin Level 2.5 g/dL (3.5-5.1); Anion Gap 14 mmol/L (8-16); Blood Urea Nitrogen 59 mg/dL (9-20); Calcium 8.5 mg/dL (8.4-10.2); Carbon Dioxide 25 mmol/L (22-30); Chloride 94 mmol/L (98-107); Estimated CRCL calculation 18 ml/min; Estimated Glomerular Filt Rate 20; Glucose 391 mg/dL (65-110); Magnesium 1.8 mg/dL (1.6-2.3); Phosphorus 5.9 mg/dL (2.5-4.5); Sodium 133 mmol/L (137-145)
[2022-08-30] MEDS: INSULIN ASPART (*BKC) 100 UNITS/ML SUB-Q (06:05)
[2022-08-30 06:10] LABS: Glucose Point of Care 466 mg/dl (65-105)
[2022-08-30 06:10] LABS: Glucose Point of Care 364 mg/dl (65-105)
--- NOTE | 2022-08-30 07:44 | P.PNNP_ITS ---
Progress Note: A&P Assessment and Plan (1) ESRD (end stage renal disease): Code(s): N18.6 - End stage renal disease Status: Chronic Assessment and Plan: * HD due tomorrow. * Potassium is normal * He has a little swelling. Will try to remove some fluid tomorrow. * He is drinking a lot of fluid. Will put him on a 1800cc fluid restriction (2) Decubitus ulcer of sacral area: Code(s): L89.159 - Pressure ulcer of sacral region, unspecified stage Status: Acute Assessment and Plan: * POA * most likely result of the Guillain-[place] as he has been more sedentary lately. * s/p debridement and washout of sacral/ischium/left hip decubitus ulcers (on 08/25/22) * getting local wound care. * follow trend of blood/wound cultures * on IV antibiotics (3) Anemia: Code(s): D64.9 - Anemia, unspecified Status: Chronic Assessment and Plan: * Hemoglobin 8.1 today. * Anemia is due to inflammation plus ESRD. He probably lost some blood during the debridement as well. * continue Epogen with HD * No need for iron levels since he has an infection. * Follow the hemoglobin levels (4) Hypertension: Code(s): I10 - Essential (primary) hypertension Status: Acute Assessment and Plan: * hypotension resolved * his blood pressure was a little bit soft during dialysis yesterday. * Will limit intake to try to make it easier to get some of the fluid off. * The edema inhibits wound healing. * Will follow trends of his blood pressure to decide when to restart his outpatient antihypertensives. (5) IDDM (insulin dependent diabetes mellitus): Status: Chronic Assessment and Plan: * noted to be in DKA on admission by anion gap metabolic acidosis, hyperglyc emia, and positive beta-hydroxybutyrate * presumably triggered by infection/#2 * Now on subcu insulin. * I do not feel comfortable with a regular diet. Subjective Date/time seen: 08/30/22 07:44 Interval history: Ish is feeling okay. The rest of his dialysis went well yesterday. His wounds are getting local care. No complaints of pain. Exam Narrative: General: WD/WN male in NAD Heart: normal S1 and S2; no rub or gallop Lungs: clear bilateral Abdomen: soft, nontender, nondistended, positive bowel sounds Extremities: 1+ presacral edema. left AKA and right BKA Skin: no acute rash or subcu nodules Objective Data Vital Signs Vital Signs: Vital Signs - 24 hr 08/29/22 09:11 08/29/22 09:03 08/29/22 08:45 Temperature 36.8 C Pulse Rate 102 H 101 H 104 H Respiratory Rate 18 Blood Pressure 164/79 H 175/85 H Pulse Oximetry Oxygen Delivery 08/29/22 08:45 08/29/22 09:30 08/29/22 10:00 Temperature Pulse Rate 113 H 107 H Respiratory Rate Blood Pressure 96/57 L 115/58 L Pulse Oximetry Oxygen Delivery Room Air 08/29/22 10:30 08/29/22 11:00 08/29/22 12:00 Temperature Pulse Rate 106 H 98 93 Respiratory Rate Blood Pressure 94/53 L 120/61 Pulse Oximetry Oxygen Delivery 08/29/22 11:30 08/29/22 12:00 08/29/22 12:17 Temperature Pulse Rate 96 93 92 Resp
--- NOTE | 2022-08-30 07:44 | PM.PNNEP ---
Progress Note: A&P Assessment and Plan (1) ESRD (end stage renal disease): Code(s): N18.6 - End stage renal disease Status: Chronic Assessment and Plan: HD due tomorrow. Potassium is normal He has a little swelling. Will try to remove some fluid tomorrow. He is drinking a lot of fluid. Will put him on a 1800cc fluid restriction (2) Decubitus ulcer of sacral area: Code(s): L89.159 - Pressure ulcer of sacral region, unspecified stage Status: Acute Assessment and Plan: POA most likely result of the Guillain-[place] as he has been more sedentary lately. s/p debridement and washout of sacral/ischium/left hip decubitus ulcers (on 08/25/22) getting local wound care. follow trend of blood/wound cultures on IV antibiotics (3) Anemia: Code(s): D64.9 - Anemia, unspecified Status: Chronic Assessment and Plan: Hemoglobin 8.1 today. Anemia is due to inflammation plus ESRD. He probably lost some blood during the debridement as well. continue Epogen with HD No need for iron levels since he has an infection. Follow the hemoglobin levels (4) Hypertension: Code(s): I10 - Essential (primary) hypertension Status: Acute Assessment and Plan: hypotension resolved his blood pressure was a little bit soft during dialysis yesterday. Will limit intake to try to make it easier to get some of the fluid off. The edema inhibits wound healing. Will follow trends of his blood pressure to decide when to restart his outpatient antihypertensives. (5) IDDM (insulin dependent diabetes mellitus): Status: Chronic Assessment and Plan: noted to be in DKA on admission by anion gap metabolic acidosis, hyperglycemia, and positive beta-hydroxybutyrate presumably triggered by infection/#2 Now on subcu insulin. I do not feel comfortable with a regular diet. Subjective Date/time seen: 08/30/22 07:44 Interval history: Ish is feeling okay. The rest of his dialysis went well yesterday. His wounds are getting local care. No complaints of pain. Exam Narrative: General: WD/WN male in NAD Heart: normal S1 and S2; no rub or gallop Lungs: clear bilateral Abdomen: soft, nontender, nondistended, positive bowel sounds Extremities: 1+ presacral edema. left AKA and right BKA Skin: no acute rash or subcu nodules Objective Data Vital Signs Vital Signs: Vital Signs - 24 hr 08/29/22 09:11 08/29/22 09:03 08/29/22 08:45 Temperature 36.8 C Pulse Rate 102 H 101 H 104 H Respiratory Rate 18 Blood Pressure 164/79 H 175/85 H Pulse Oximetry Oxygen Delivery 08/29/22 08:45 08/29/22 09:30 08/29/22 10:00 Temperature Pulse Rate 113 H 107 H Respiratory Rate Blood Pressure 96/57 L 115/58 L Pulse Oximetry Oxygen Delivery Room Air 08/29/22 10:30 08/29/22 11:00 08/29/22 12:00 Temperature Pulse Rate 106 H 98 93 Respiratory Rate Blood Pressure 94/53 L 120/61 Pulse Oximetry Oxygen Delivery 08/29/22 11:30 08/29/22 12:00 08/29/22 12:17 Temperature Pulse Rate 96 93 92 Respiratory Rate Blood Pressure 138/66 152/69 H 143/72 H Pulse Oximetry Oxygen Delivery 08/29/22 12:25 08/29/22 14:00 08/29/22 16:00 Temperature 36.6 C 37.0 C Pulse Rate 94 98 103 H Respiratory Rate 16 22 H Blood Pressure 150/69 H 164/68 H Pulse Oximetry 95 Oxygen Delivery 08/29/22 21:03 08/29/22 20:00 08/30/22 00:00 Temperature 37.1 C Pulse Rate 107 H 111 H 104 H Respiratory Rate 20 Blood Pressure 156/85 H Pulse Oximetry 95 Oxygen Delivery 08/30/22 04:19 08/30/22 04:00 Temperature 37.1 C Pulse Rate 96 96 Respiratory Rate 20 Blood Pressure 141/63 H Pulse Oximetry 97 Oxygen Delivery Intake/Output Intake/Output: Intake & Output 08/27/22 08/28/22 08/29/22 08/30/22 23:59 23:59 23:59 23:59 Intake Total 7355 1106 30
[2022-08-30 08:23] LABS: Glucose Point of Care 264 mg/dl (65-105)
[2022-08-30] MEDS: INSULIN GLARGINE (*BKC) 100 UNITS/ML 7 UNITS SUB-Q ×2 (09:50→21:18)
[2022-08-30] MEDS: CHLORHEXIDINE GLUCONATE 4% SOL 120 ML BTL 1 APPLIC (09:51)
[2022-08-30] MEDS: TOLNAFTATE 1% POWDER 45 GM BTL 1 APPLIC TOPICAL ×2 (09:53→21:20)
[2022-08-30] MEDS: NICOTINE (*PBKC) 21 MG PATCH 1 PATCH TRANSDERM (09:53)
[2022-08-30] MEDS: LORazepam (*CRX) 0.5 MG TABLET PO (10:30)
[2022-08-30] MEDS: ALVIMOPAN 12 MG CAPSULE PO (11:43)
[2022-08-30] MEDS: ACETAMINOPHEN 500 MG TABLET 1000 MG PO (11:44)
--- NOTE | 2022-08-30 11:44 | WPDANESEPPF ---
Anes - Initial Pre Proc Eval Procedure: Operation Date: 08/25/22 15:30 Proposed Procedures p Debridement Sacral Decubitus And Ischial wounds - Isabell Hercules MD Operation Date: 08/30/22 12:00 Proposed Procedures p Laparoscopic Possible Hand Assisted Creation of End Sigmoid Colostomy - Jovanny Ramirez MD Date/Time: 08/30/22 11:44 Surgeon: Isabell Hercules MD Pre Op Diagnosis: Ulcers to sacrum Patient Data Age: 56 Gender: M Height: 1.7 m Weight: 54.6 kg Last Vital Signs Temp 98.7 F 08/30/22 04:19 Pulse 99 08/30/22 09:45 Resp 20 08/30/22 04:19 BP 141/63 H 08/30/22 04:19 Pulse Ox 97 08/30/22 04:19 O2 Del Method Room Air 08/30/22 09:45 O2 Flow Rate 6 08/25/22 17:18 Allergies Allergy/AdvReac Type Severity Reaction Status Date / Time scopolamine Allergy Severe Unresponsiv Verified 08/25/22 13:25 e Home Medications Medication Instructions Recorded Confirmed Type vitamin B complex-vitamin C-folic 1 tablet PO DAILY 07/23/20 08/25/22 History acid 0.8 mg tablet (Dang-Nilsa) ropinirole 0.25 mg tablet 0.25 mg PO DIRECTED 01/11/21 08/25/22 History acetaminophen 325 mg tablet (Mapap 650 mg PO Q4H PRN Mild Pain (1-3) 03/28/21 08/25/22 Rx (acetaminophen)) Or Fever #60 tabs nitroglycerin 0.4 mg sublingual 0.4 mg sublingual Q5MIN PRN Chest 09/08/21 08/25/22 Rx tablet (Nitrostat) Pain #30 tabs ondansetron 4 mg disintegrating 4 mg PO Q8H PRN nausea and 10/12/21 08/25/22 Rx tablet vomiting #30 tabs gabapentin 300 mg capsule 300 mg PO DAILY #90 caps 12/28/21 08/25/22 Rx atorvastatin 80 mg tablet 80 mg PO DAILY #90 tabs 02/25/22 08/25/22 Rx blood-glucose meter,continuous #1 ea 03/02/22 08/25/22 Rx (Dexcom G6 Salt Manager [facility] [place]) blood-glucose sensor (Dexcom G6 #9 ea 03/02/22 08/25/22 Rx Sensor device) blood-glucose transmitter (Dexcom #1 ea 03/02/22 08/25/22 Rx G6 Transmitter device) sertraline 100 mg tablet 100 mg PO DAILY #90 tabs 06/20/22 08/25/22 Rx ticagrelor 60 mg tablet (Brilinta) 60 mg PO BID 06/23/22 08/25/22 History carvedilol 3.125 mg tablet (Coreg) 3.125 mg PO Q12H #180 tabs 07/08/22 08/25/22 Rx albuterol sulfate 90 mcg/actuation 1 puff inhalation Q6H PRN 07/09/22 08/25/22 History aerosol inhaler Shortness Of Breath aspirin 81 mg tablet 81 mg PO DAILY 07/09/22 08/25/22 History cholecalciferol (vitamin D3) 25 25 mcg PO DAILY 07/09/22 08/25/22 History mcg (1,000 unit) tablet (Vitamin D3) foam bandage 4 X 4 (Mepilex #5 ea 07/14/22 08/25/22 Rx Border) insulin glargine 100 unit/mL (3 See Rx Instructions .Route 07/14/22 08/25/22 Rx mL) subcutaneous pen (Basaglar .COMPLEX #15 mL KwikPen U-100 Insulin) bisacodyl 10 mg rectal suppository 10 mg RECTAL DAILY PRN Constipation 07/28/22 08/25/22 History insulin lispro 100 unit/mL 1 sliding scale dose subcut 07/28/22 08/25/22 History subcutaneous pen USEASDIRECTD magnesium hydroxide 400 mg/5 mL 30 ml PO HS PRN Constipation 07/28/22 08/25/22 History oral suspension (Milk of Magnesia) omeprazole 20 mg capsule,delayed 20 mg PO DAILY 07/28/22 08/25/22 History release sodium phosphates 19 gram-7 118 ml RECTAL ONCE PRN Constipation 07/28/22 08/25/22 History gram/118 mL enema (Fleet Enema) hydrocodone 5 mg-acetaminophen 325 1 tablet PO Q6H PRN Pain Rated 4-6 08/01/22 08/25/22 Rx mg tablet #12 tabs lorazepam 0.5 mg tablet 1 mg PO BID PRN Anxiety #60 tabs 08/23/22 08/25/22 Rx cyanocobalamin (vitamin B-12) 1,000 mcg PO DAILY 08/25/22 08/25/22 History 1,000 mcg capsule vitamin B complex 1 cap PO DAILY 08/25/22 08/25/22 History nicotine 21 mg/24 hr daily 1 patch transdermal DAILY #28 ea 08/30/22 Rx transdermal patch Laboratory Tests 08/29/22 08/29/22 08/29/22 12:31 16:28 18:28 WBC RBC Hgb Hct MCV MCH MCHC RDW Plt Count MPV Sodium Potassium
--- NOTE | 2022-08-30 11:52 | P.HPUP_ITS ---
History and Physical Update Update Date/Time: 08/30/22 11:52 History and Physical has been reviewed, including an updated exam of the patient. There are changes in the patient's condition. Patient is having some stooling that tends to go into his large decubiti I in the pelvic region. T herefore, I recommended a diverting colostomy. Patient has agreed. He has undergone a bowel prep and we are planning to proceed with a and sigmoid diverting colostomy. There is a significant amount of very hard crusting skin and scabs present on the patient's BK stump. I have discussed this with the wound care nurses and I will d?bride any tissue there and we will consider using a wound VAC on it if it is otherwise clean tomorrow. Risks, benefits, and alternatives have been discussed and questions answered. Patient agrees to proceed with procedure.
[2022-08-30] MEDS: SODIUM CHLORIDE 0.9% IV 1,000 ML 100 ML IV CONT (12:00)
[2022-08-30] MEDS: BUPIVACAINE/EPINEPHRINE 0.25% 50 ML VIAL 20 ML INFILTRATE (12:41)
--- NOTE | 2022-08-30 15:46 | W.PM.PROC2 ---
Procedure Note - Detailed Date of Procedure 08/30/22 Pre-op Diagnosis 1. Deep decubitus Ulcers to sacrum and coccyx extending to left ilium 2. Necrotic skin subcutaneous tissue and muscle on stump of BK amputation site right leg. Post-op Diagnosis Same Procedure Performed 1. Laparoscopic creation of end sigmoid colostomy. 2. Debridement of skin, subcutaneous tissue and some necrotic muscle distal and/flap of right BK amputation site. Surgeon Jovanny Ramirez MD Fashion Stylist ADILENE Ferraro, [place] [facility] assist Anesthesia General (Via oral endotracheal tube by Allan anesthesia) Indications Patient has large necrotic decubiti which were debridedlast week by Dr. Hercules He has been having stools would so we will these and there was not enough room between the anal specialized mucosa and the wounds to allow wound VAC use. With a diverting colostomy we will divert the fecal stream and alter the contamination that is been occurring to these wounds on this fairly mobile patient. Separately the patient had previously had a [id number] amputation on the right. Evaluation this weekend revealed a thick dark cross with pus coming out from underneath it. There is necrotic skin and is suspected that there would be some necrotic subcu tissue and some muscle under this. Since the patient will be under anesthesia it was a good time to debride away all tissue and we will think about using a wound VAC on this until further decisions can be made. At least this will take away the source of possible infection but he may have osteomyelitis on his distal tibia. Findings Intra-abdominal: Fairly unremarkable as far as adhesions. This allowed us to see fairly well for the laparoscopic sigmoid dissection. Immediately upon entering the abdomen it was obvious that the urinary bladder was fairly significantly distended. We did not put a Baptiste catheter in because the patient was telling us that he was not urinating at all. (patient has chronic renal failure and on dialysis). Sigmoid colon was normal in appearance and fairly lax. I was able to divide it approximately 10-15 cm above the rectosigmoid junction and then bring the proximal end up to the site that was previously marked by the ostomy nurses just to the left of his umbilicus for a end colostomy. BK stump site: Very thick dark necrotic crust that included necrotic skin, subcutaneous tissue, and some muscle. Description of Procedure The patient was brought to the operating room and moved carefully to the operating room table. After induction of adequate general oral tracheal tube anesthesia by Gray anesthesia we carefully padded the patient secured him to the table with a pink pad. After using tape remover the abdomen was prepped and draped in usual sterile fashion. He was draped widely for laparoscopy. After appropriate time-out confirming patient site of surgery which includes the abdomen for colostomy and the right BKA stump for debridement we carefully placed local anesthetic just below the umbilicus and into the lower part of the umbilicus with a 25 gauge needle using 0.25% Marcaine with epi. Fifteen blade was used to make approximately 1.5 cm vertical incision starting in the umbilicus and going inferior but not quite to the top of his previous scar which was in the midline below the umbilicus. I carefully did a cutdown on the midline fascia. Two stay sutures of 0 Vicryl were placed on either side of the midline fascia and these were used to elevate the midline fascia. Careful serial incisions with 15 blade knife were made and then opening in the peritoneum under direct vision with the scissors was completed. It appeared that we had gotten nicely within the peritoneal cavity. This opening was dilated with the blunt Peon and then the Leiva cannula (12 mm) was slid into position. Following this we insufflated the abdomen to 14 mm of mercury pressure with CO2 gas and carefully inspected the inside of the abdomen. It wa
[2022-08-30 16:20] LABS: Glucose Point of Care 149 mg/dl (65-105)
[2022-08-30 16:22] LABS: Add Urine Microscopic? YES; Appearance Urine Cloudy (Clear); Bilirubin Urine Negative (Negative); Blood Urine 3+ (Negative); Color Urine Yellow (Yellow); Glucose Urine UA 3+ mg/dL (Negative); Ketones Urine Negative (Negative); Leukocyte Esterase Ur Negative LEU/UL (Negative); Nitrate Urine Negative (Negative); Protein Urine 2+ mg/dL (Negative); RBC Urine >75 /hpf (0-2); Specific Grav Ur 1.013 (1.001-1.035); Urobilinogen Urine Negative mg/dL (<2.0); WBC Urine 31-50 /hpf
--- NOTE | 2022-08-30 17:04 | PM.IMPN ---
Progress Note: A&P Assessment and Plan (1) Decubitus ulcers: Code(s): L89.90 - Pressure ulcer of unspecified site, unspecified stage Status: Chronic Assessment and Plan: -wound Care has been consulted. Patient has a scar tissue has increased. The patient is to being taken to surgery from the ER. -the patient is in [facility] and the patient tells me that he has not seen the wound care nurse for 2 weeks and just saw her today and she recommended that the patient come to the hospital. - The patient is febrile with leukocytosis. His white count was found to be 23.4. The patient is tachycardic and blood pressure has been low. The patient fits the sepsis criteria. Lactic level was normal. -please see photos in the chart. -the patient was started on vancomycin and Zosyn. Pharmacy to renal dose since he is a dialysis patient. -blood cultures are pending. 08/30/2022 interval history: patient is 56 male with history of DM I, ESRD on HD, presented with hyperglycemia was found to have DKA, patient was admitted into ICU, patient was started on insulin drip and gently hydrated, patient blood sugars were trending down insulin drip was stopped and started on long acting 7U daily, and slinding scale, patient was seen by coat checker and family living educator and recommended to place on insulin 2units with each meal, patient was found to eating candies in his room difficult to control his blood sugars, also patient is found to scaral wound as well AKA stump, these wounds are oozing blood, appear to be infected patient is seen by surgery service and had debridement, patient sacral wound is very close to anal and wound constantly soiled, surgery is recommending diverting colostomy to prevent wound contamination and patient is agreeable, today patient is scheduled for the surgery and will follow up, patient was also in sepsis upon arrival most likely secondary to infected wounds, patient leg wound is growing Gram-negative bacilli, patient is being treated Zosyn and vancomycin, will follow up on blood culture and further recommendation to follow. (2) DKA (diabetic ketoacidoses): Qualifiers: Diabetes mellitus type: type 1 Diabetes mellitus complication detail: without coma Qualified Code(s): E10.10 - Type 1 diabetes mellitus with ketoacidosis without coma Code(s): E11.10 - Type 2 diabetes mellitus with ketoacidosis without coma Status: Resolved Assessment and Plan: -I have consulted the coat checker. -the patient's blood sugars are in the 300s. -patient's anion gap is 21. It was recommended that the patient receive a 500 cc bolus of fluids and repeat again if his lungs are clear. However the patient is getting fluids in the OR. -the patient is to be an ICU on a DKA protocol. Which includes having BMPs every 4 hours. He will be on insulin drip. The patient has type 1 diabetes and is very brittle. -the patient will need a dietary consult. Not only is he a diabetic he is malnourished and on dialysis as well. (3) IDDM (insulin dependent diabetes mellitus): Status: Chronic Assessment and Plan: -once the patient is off the insulin drip then we can give him Lantus and start him on a sliding scale insulin. (4) ESRD (end stage renal disease): Code(s): N18.6 - End stage renal disease Status: Chronic Assessment and Plan: -nephrology has been consulted. Patient has hyperkalemia and was given Lokelma. -continue with Dang Nilsa. (5) Anemia: Code(s): D64.9 - Anemia, unspecified Status: Chronic Assessment and Plan: -was likely secondary to his end-stage renal disease. Please continue to monitor. -the patient is at his baseline. (6) Depression with anxiety: Code(s): F41.8 - Other specified anxiety disorders Status: Acute Assessment and Plan: -continue with sertraline (7) Hypertension: Qualifiers: Hypertension type: unspecified Qualifie
[2022-08-30] MEDS: LACTATED RINGERS 1,000 ML 40 ML IV CONT (18:20)
[2022-08-30] MEDS: MORPHINE SULFATE (*CRX) 2 MG/ML INJ IV PUSH (18:24)
[2022-08-30] MEDS: PANTOPRAZOLE SODIUM IV 40 MG VIAL IV PUSH (21:12)
[2022-08-30 21:24] LABS: Glucose Point of Care 174 mg/dl (65-105)
[2022-08-31] VITALS (16 sets, daily range): BP systolic 87–149; BP diastolic 53–68; PULSE 83–105; RESP 16–18; TEMP 36.5–37; O2SAT 94–95
[2022-08-31 05:56] LABS: Hematocrit 25.8 % (42.0-52.0); Hemoglobin 8.1 g/dL (14.0-18.0); Mean Corpuscular HGB Conc 31.4 g/dl (32-36); Mean Corpuscular Hemoglobin 27.9 pg (26-34); Platelet Count Result 511 k/mm3 (150-375); Red Cell Distribution Width 17.1 % (11.5-14.5); White Blood Count 16.2 K/mm3 (4.5-10.0)
[2022-08-31 06:19] LABS: Alanine Aminotransferase 15 U/L (6-50); Albumin Level 2.4 g/dL (3.5-5.1); Alkaline Phosphatase 85 U/L (38-126); Anion Gap 11 mmol/L (8-16); Aspartate Amino Transferase 22 U/L (17-59); Bilirubin,Total 0.2 mg/dL (0.2-1.3); Blood Urea Nitrogen 65 mg/dL (9-20); Calcium 8.6 mg/dL (8.4-10.2); Carbon Dioxide 23 mmol/L (22-30); Chloride 98 mmol/L (98-107); Estimated CRCL calculation 13 ml/min; Estimated Glomerular Filt Rate 13; Glucose 138 mg/dL (65-110); Magnesium 1.8 mg/dL (1.6-2.3); Phosphorus 7.4 mg/dL (2.5-4.5); Potassium 4.5 mmol/L (3.4-5.0); Sodium 132 mmol/L (137-145)
--- NOTE | 2022-08-31 07:01 | PM.PNNEP ---
Progress Note: A&P Assessment and Plan (1) ESRD (end stage renal disease): Code(s): N18.6 - End stage renal disease Status: Chronic Assessment and Plan: HD due tomorrow. Potassium is normal swelling is a little bit better. (2) Decubitus ulcer of sacral area: Code(s): L89.159 - Pressure ulcer of sacral region, unspecified stage Status: Acute Assessment and Plan: POA most likely result of the Guillain-[place] as he has been more sedentary lately. s/p debridement and washout of sacral/ischium/left hip decubitus ulcers (on 08/25/22) getting local wound care. He had a diverting colostomy to protect the wounds. on IV antibiotics (3) Anemia: Code(s): D64.9 - Anemia, unspecified Status: Chronic Assessment and Plan: Hemoglobin 8.1 today. Anemia is due to inflammation plus ESRD. He probably lost some blood during the debridement as well. Hemoglobin is stable. Getting Epogen with dialysis (4) Hypertension: Code(s): I10 - Essential (primary) hypertension Status: Acute Assessment and Plan: BP is up and down, between 87 and 115. Hold off on restarting his blood pressure meds. (5) IDDM (insulin dependent diabetes mellitus): Status: Chronic Assessment and Plan: On Accu-Cheks and sliding-scale insulin. Subjective Date/time seen: 08/31/22 7:00 am Interval history: Ish is feeling okay. he had a diverting colostomy yesterday. He feels okay today. Exam Narrative: General: WD/WN male in NAD Heart: normal S1 and S2; no rub or gallop Lungs: clear to auscultation Abdomen: soft, nontender, nondistended, positive bowel sounds Extremities: 1+ presacral edema. left AKA and right BKA Skin: no acute rash Objective Data Vital Signs Vital Signs: Vital Signs - 24 hr 08/30/22 15:48 08/30/22 16:00 08/30/22 16:15 Temperature 36.5 C Pulse Rate 80 81 80 Respiratory Rate 19 20 20 Blood Pressure 92/55 L 128/75 103/60 Pulse Oximetry 100 98 97 Oxygen Delivery Simple Face Mask Room Air Room Air Oxygen Flow Rate 8 08/30/22 16:30 08/30/22 16:45 08/30/22 17:00 Temperature Pulse Rate 79 79 79 Respiratory Rate 18 18 18 Blood Pressure 101/59 L 99/59 L 101/58 L Pulse Oximetry 99 98 98 Oxygen Delivery Room Air Room Air Room Air Oxygen Flow Rate 08/30/22 17:15 08/30/22 17:30 08/30/22 17:50 Temperature 36.1 C L Pulse Rate 79 80 77 Respiratory Rate 18 20 18 Blood Pressure 99/59 L 105/58 L 103/58 L Pulse Oximetry 100 96 100 Oxygen Delivery Room Air Room Air Oxygen Flow Rate 08/30/22 18:05 08/30/22 18:35 08/30/22 21:01 Temperature 36.2 C L 36.2 C L 36.4 C Pulse Rate 78 87 84 Respiratory Rate 18 18 18 Blood Pressure 106/56 L 133/59 L Pulse Oximetry 100 100 99 Oxygen Delivery Oxygen Flow Rate 08/30/22 20:00 08/30/22 20:00 08/31/22 00:28 Temperature 36.5 C Pulse Rate 86 87 Respiratory Rate 18 Blood Pressure 149/61 H Pulse Oximetry 95 Oxygen Delivery Room Air Oxygen Flow Rate 08/31/22 04:08 08/31/22 00:00 08/31/22 04:00 Temperature 36.6 C Pulse Rate 96 83 89 Respiratory Rate 18 Blood Pressure 133/53 L Pulse Oximetry 94 Oxygen Delivery Oxygen Flow Rate 08/31/22 09:33 08/31/22 09:36 08/31/22 10:00 Temperature 36.7 C Pulse Rate 104 H 102 H 103 H Respiratory Rate 16 Blood Pressure 123/59 L 131/68 96/55 L Pulse Oximetry Oxygen Delivery Oxygen Flow Rate 08/31/22 10:30 08/31/22 11:00 08/31/22 11:30 Temperature Pulse Rate 103 H 100 100 Respiratory Rate Blood Pressure 109/60 99/65 L 110/62 Pulse Oximetry Oxygen Delivery Oxygen Flow Rate 08/31/22 08:00 08/31/22 12:00 08/31/22 12:00 Temperature Pulse Rate 105 H 100 99 Respiratory Rate Blood Pressure 87/65 L Pulse Oximetry Oxygen Delivery Oxygen Flow Rate 08/31/22 12:19 08/31/22 12:
--- NOTE | 2022-08-31 07:46 | WPDANESPN ---
Anes - Prog Note Post-Op Date/Time: 08/31/22 07:46 Cardiovascular status: normal Respiratory status: normal Airway patency: baseline Mental status: baseline Post-Op hydration status: normal Vital Signs: Last Vital Signs Temp 36.6 C 08/31/22 04:08 Pulse 96 08/31/22 04:08 Resp 18 08/31/22 04:08 BP 133/53 L 08/31/22 04:08 Pulse Ox 94 08/31/22 04:08 O2 Del Method Room Air 08/30/22 20:00 O2 Flow Rate 8 08/30/22 15:48 Pain Score (VAS): 01/20 I/O: Intake & Output 08/30/22 08/30/22 08/31/22 15:59 23:59 07:59 Intake Total 50 50 250 Output Total 800 25 Balance 50 -750 225 Laboratory Tests 08/31/22 05:42 08/31/22 05:42 08/30/22 08/30/22 08/30/22 08:15 15:58 16:06 WBC RBC Hgb Hct MCV MCH MCHC RDW Plt Count MPV Sodium Potassium Chloride Carbon Dioxide Anion Gap BUN Creatinine Estim Creat Clear Calc Estimated GFR Glucose POC Capillary Glucose 264 H 149 H Calcium Phosphorus Magnesium Total Bilirubin AST ALT Alkaline Phosphatase Total Protein Albumin Urine Color Yellow Urine Appearance Cloudy H Urine pH 8.0 Ur Specific [place] 1.013 Urine Protein 2+ H Urine Glucose (UA) 3+ H Urine Ketones Negative Ur Blood (Man) 3+ H Urine Nitrate Negative Urine Bilirubin Negative Urine Urobilinogen Negative Leukocyte Esterase Rfl Negative Urine RBC >75 H Urine WBC 31-50 H 08/30/22 08/31/22 08/31/22 21:04 05:42 05:42 WBC 16.2 H RBC 2.90 L Hgb 8.1 L Hct 25.8 L MCV 89.0 MCH 27.9 MCHC 31.4 L RDW 17.1 H Plt Count 511 H MPV 10.0 Sodium 132 L Potassium 4.5 Chloride 98 Carbon Dioxide 23 Anion Gap 11 BUN 65 H Creatinine 4.60 H Estim Creat Clear Calc 13 Estimated GFR 13 L Glucose 138 H POC Capillary Glucose 174 H Calcium 8.6 Phosphorus 7.4 H Magnesium 1.8 Total Bilirubin 0.2 AST 22 ALT 15 Alkaline Phosphatase 85 Total Protein 6.0 L Albumin 2.4 L Urine Color Urine Appearance Urine pH Ur Specific [place] Urine Protein Urine Glucose (UA) Urine Ketones Ur Blood (Man) Urine Nitrate Urine Bilirubin Urine Urobilinogen Leukocyte Esterase Rfl Urine RBC Urine WBC Microbiology 08/25/22 13:54 Blood Blood Culture - Final 08/25/22 13:52 Blood Blood Culture - Final 08/28/22 18:01 Leg Right Wound Culture - Preliminary Gram negative bacilli isolated Post-procedural complaints: none Patient Feedback: Patient satisfied with anesthetic care.
--- NOTE | 2022-08-31 08:56 | PM.IMPN ---
Progress Note: A&P Assessment and Plan (1) Decubitus ulcers: Code(s): L89.90 - Pressure ulcer of unspecified site, unspecified stage Status: Chronic Assessment and Plan: Initially presented from home with infected wounds after having gone two weeks without wound care. Vancomycin and zosyn started 08/25/22. 08/25/22 had debridement and washout of stage IV sacral decubitus ulcer, left decubitus ischial ulcer and left hip ulcer. 08/28/22 had bedside debridement of sacral decubitus and distal below the knee stump. 08/30/22 had debridement of skin, subcutaneous tissue and necrotic muscle of the right BKA and laparoscopic creation of end colostomy. 08/28 wcx with gram negative bacilli pending speciation. Leukocytosis largely unchanged. Will see if diverting ostomy helps resolve chronic infection. If this does not significantly improve with continued treatment with vancomycin and zosyn, will need do workup to rule out osteomyelitis. -Continue vancomycin and zosyn -Discussed discharge to LTAC when appropriate with care coordination -Needs ostomy teaching (2) DKA (diabetic ketoacidoses): Qualifiers: Diabetes mellitus type: type 1 Diabetes mellitus complication detail: without coma Qualified Code(s): E10.10 - Type 1 diabetes mellitus with ketoacidosis without coma Code(s): E11.10 - Type 2 diabetes mellitus with ketoacidosis without coma Status: Resolved Assessment and Plan: Admitted to the ICU for DKA after initial presentation to the emergency department. This resolved after treatment in the ICU. Resolved. (3) IDDM (insulin dependent diabetes mellitus): Status: Chronic Assessment and Plan: S/p admission to ICU for DKA. BG improved. Will monitor. -Continue glargine 7 units BID -Continue aspart 2 units TIDWM -Low dose SSI (4) ESRD (end stage renal disease): Code(s): N18.6 - End stage renal disease Status: Chronic Assessment and Plan: ESRD with hemodialysis through a catheter. -Appreciate recommendations from Nephrology (5) Anemia: Code(s): D64.9 - Anemia, unspecified Status: Chronic Assessment and Plan: Likely secondary to his end-stage renal disease. At baseline. -Appreciate recommendations from Nephrology (6) Depression with anxiety: Code(s): F41.8 - Other specified anxiety disorders Status: Acute Assessment and Plan: -continue with sertraline (7) Hypertension: Qualifiers: Hypertension type: unspecified Qualified Code(s): I10 - Essential (primary) hypertension Code(s): I10 - Essential (primary) hypertension Status: Acute Assessment and Plan: BP soft intially, so antihypertensives held. BP normotensive. Will continue to hold BP medications for now. (8) CHF (congestive heart failure): Qualifiers: Heart failure chronicity: unspecified Heart failure type: unspecified Qualified Code(s): I50.9 - Heart failure, unspecified Code(s): I50.9 - Heart failure, unspecified Status: Acute Assessment and Plan: Last echo 03/06/21 w/ EF 55-60% with grade I diastolic dysfunction and severely increased left ventricular wall thickness. HFpEF. Stable. Will monitor. (9) Coronary artery disease: Qualifiers: Coronary Disease-Associated Artery/Lesion type: [place] artery [place] vs. transplanted heart: [place] heart Associated angina: without angina Qualified Code(s): I25.10 - Atherosclerotic heart disease of [place] coronary artery without angina pectoris Code(s): I25.10 - Atherosclerotic heart disease of [place] coronary artery without angina pectoris Status: Acute Assessment and Plan: Takes statin, aspirin, beta graciela and ticagrelor. -Continue statin -Hold BB due to BP -Holding ticagrelor and aspirin due to recent surgery. Will need clarification with camacho
[2022-08-31 08:58] LABS: Glucose Point of Care 167 mg/dl (65-105)
[2022-08-31] MEDS: CYANOCOBALAMIN 1,000 MCG TABLET 1000 MCG PO (09:06)
[2022-08-31] MEDS: SERTRALINE HCL 50 MG TABLET 100 MG PO (09:06)
[2022-08-31] MEDS: CHOLECALCIFEROL 1,000 UNITS TABLET 1000 UNITS PO (09:06)
[2022-08-31] MEDS: VITAMIN B CMPLX/VIT C/FOLIC AC 1 CAPSULE 1 CAP PO (09:06)
[2022-08-31] MEDS: GABAPENTIN 300 MG CAPSULE PO (09:06)
[2022-08-31] MEDS: PANTOPRAZOLE SODIUM IV 40 MG VIAL IV PUSH (09:07)
[2022-08-31] MEDS: NICOTINE (*PBKC) 21 MG PATCH 1 PATCH TRANSDERM (09:07)
[2022-08-31] MEDS: TOLNAFTATE 1% POWDER 45 GM BTL 1 APPLIC TOPICAL ×2 (09:07→20:50)
[2022-08-31] MEDS: HYDROcodone/acetaminophen (*CRX) 7.5-325 MG TABLET 1 TAB PO ×2 (09:08→14:58)
[2022-08-31] MEDS: INSULIN GLARGINE (*BKC) 100 UNITS/ML 7 UNITS SUB-Q ×2 (09:10→20:49)
[2022-08-31] MEDS: SOD HYPOCHLORITE 1/4 STRENGTH 473 ML 1 APPLIC TOPICAL ×2 (09:11→20:50)
[2022-08-31] MEDS: INSULIN ASPART (*BKC) 100 UNITS/ML SUB-Q ×3 (09:11→17:58)
[2022-08-31] MEDS: EPOETIN ALFA-EPBX 10,000 UNITS/ML VIAL 10000 UNITS IV PUSH (12:12)
[2022-08-31 12:47] LABS: Glucose Point of Care 133 mg/dl (65-105)
[2022-08-31] MEDS: LORazepam (*CRX) 0.5 MG TABLET PO (14:59)
[2022-08-31 17:18] LABS: Glucose Point of Care 158 mg/dl (65-105)
[2022-08-31 18:52] LABS: Vancomycin Random 16.8 ug/mL (10-20)
--- NOTE | 2022-08-31 20:09 | PM.PNGS ---
Progress Note: A&P Assessment and Plan (1) Decubitus ulcer of sacral area: Code(s): L89.159 - Pressure ulcer of sacral region, unspecified stage Status: Acute Assessment and Plan: The sacral decubitus ulcer extends to the anal verge. The sacral wound would not be a candidate for a wound vac at this time due to the inability to get adequate seal at the anus with continued stool incontinence. However, yesterday he had a diverting sigmoid colostomy. I reviewed his sacral wounds and did bedside debridement today with the ostomy nurse. She will check him tomorrow if he is not having much anal drainage she will consider placing a irrigating wound VAC on somewhat purulent sacral coccygeal area wound. We may also be able to place this such that it will VAC the 10 cm circular skin and subcutaneous defect on his right hip. Continue local wound care with silver gel dressing changes. Could potentially apply a wound vac to his wounds once he has a diverting colostomy, will re-evaluate On 09/01. (2) Sepsis: Code(s): A41.9 - Sepsis, unspecified organism Status: Acute Assessment and Plan: WBC slightly improved, HD stable, cont IV antibiotics. (3) Status post below knee amputation of right lower extremity: Code(s): Z89.511 - Acquired absence of right leg below knee Status: Acute Assessment and Plan: Right BKA stump s/p bedside debridement on 08/28 now with some purulent drainage. this also was debrided in the OR yesterday dressing was changed today with the wound care nurse. We will use Dakin solution on this dirty wound. There is tibia exposed once we get the wound cleaned up he may be a candidate for converting to above the knee amputation on this side. Will discuss with Dr. June when he returns. Wound cx pending. Continue local wound care. Plan I have discussed the patient's situation with Dr. Huynh. He knows that patient had significant urine in his bladder yesterday and possible urinary overflow incontinence. Subjective Subjective Date/Time Seen: 08/31/22 07:49 Post Op day: ( status post laparoscopic formation of end sigmoid colostomy) Interval history: Also had debridement of right BKA stump Patient states he did not have too much pain overnight. He is tolerating clear liquids but has not had much gas or stool come out into the ostomy. Review of Systems Review of Systems: All systems reviewed & are unremarkable except as noted in HPI and below Constitutional: Constitutional: Reports as per HPI, Denies chills and Denies fever(s) Cardiovascular: Cardiovascular: Denies chest pain and Denies dyspnea Respiratory: Respiratory: Reports no additional respiratory complaints and Denies dyspnea Gastrointestinal: Gastrointestinal: Reports as per HPI and Denies bloating Musculoskeletal: Musculoskeletal: Reports no additional musculoskeletal complaints Neurologic: Denies memory loss Psychiatric: Psychiatric: Denies anxiety and Denies memory loss Exam Const: General: cooperative, comfortable, alert and awake Orientation/consciousness: patient oriented x3 HENMT: Head: normal to inspection Mouth: Yes moist mucous membranes Eyes: Sclera: sclerae normal Pupils: Equal, round and reactive pupils present Neck: Neck: normal visual inspection and no JVD Chest: Chest palpation & inspection: normal inspection of the chest Resp: Effort & Inspection: normal respiratory effort Auscultation: clear to auscultation bilaterally GI: Inspection: incision ( Clean and dry) and no visible herniation Auscultation: Hypoactive bowel sounds present Other: ostomy is slightly purplish and some areas of pink. There is slight serosanguineous drainage but no stool yet. Neuro: General: patient oriented x3 Cranial nerves: Yes Equal, round and reactive pupils present Objective Data Vital Signs Vital Signs: Vital Signs - 24 hr 08/30/22 21:01 08/31/22 00:28 08/31/22 04:
[2022-08-31 20:21] LABS: Glucose Point of Care 259 mg/dl (65-105)
[2022-08-31] MEDS: ALVIMOPAN 12 MG CAPSULE PO (20:48)
[2022-09-01] VITALS (7 sets, daily range): BP systolic 110; BP diastolic 71; PULSE 96–109; RESP 18; TEMP 37.1; O2SAT 98
[2022-09-01 05:48] LABS: Hemoglobin 7.7 g/dL (14.0-18.0); Mean Corpuscular HGB Conc 30.8 g/dl (32-36); Mean Corpuscular Hemoglobin 28.6 pg (26-34); Mean Corpuscular Volume 92.9 fl (80-100); Mean Platelet Volume 9.9 fl (7.4-10.4); Platelet Count Result 437 k/mm3 (150-375); Red Blood Count 2.69 M/mm3 (4.6-6.20); Red Cell Distribution Width 17.4 % (11.5-14.5); White Blood Count 14.8 K/mm3 (4.5-10.0)
[2022-09-01 06:11] LABS: Albumin Level 2.5 g/dL (3.5-5.1); Anion Gap 8 mmol/L (8-16); Blood Urea Nitrogen 43 mg/dL (9-20); Calcium 8.3 mg/dL (8.4-10.2); Carbon Dioxide 28 mmol/L (22-30); Chloride 97 mmol/L (98-107); Estimated CRCL calculation 18 ml/min; Estimated Glomerular Filt Rate 18; Glucose 141 mg/dL (65-110); Phosphorus 5.4 mg/dL (2.5-4.5); Potassium 4.2 mmol/L (3.4-5.0); Sodium 133 mmol/L (137-145)
--- NOTE | 2022-09-01 07:26 | P.PNNP_ITS ---
Progress Note: A&P Assessment and Plan (1) ESRD (end stage renal disease): Code(s): N18.6 - End stage renal disease Status: Chronic Assessment and Plan: * HD due tomorrow. * Potassium is normal * volume status looks okay (2) Decubitus ulcer of sacral area: Code(s): L89.159 - Pressure ulcer of sacral region, unspecified stage Status: Acute Assessment and Plan: * POA * most likely result of the Guillain-[place] as he has been more sedentary lately. * s/p debridement and washout of sacral/ischium/left hip decubitus ulcers (on 08/25/22) * status post diverting colostomy * getting local wound care. * on antibiotics (3) Anemia: Code(s): D64.9 - Anemia, unspecified Status: Chronic Assessment and Plan: * Hemoglobin 7.7 today. * Anemia is due to inflammation plus ESRD. He probably lost some blood during the debridement as well. * Hemoglobin is stable. * Getting Epogen with dialysis (4) Hypertension: Code(s): I10 - Essential (primary) hypertension Status: Acute Assessment and Plan: * BP is up and down, between 87 and 115. * no need for blood pressure meds yet. (5) IDDM (insulin dependent diabetes mellitus): Status: Chronic Assessment and Plan: * On Accu-Cheks and sliding-scale insulin. Subjective Date/time seen: 09/01/22 07:26 Interval history: Ish is feeling okay. he had a diverting colostomy Monday. He feels okay today. He is having some pain in his wounds. Exam Narrative: General: WD/WN male in NAD Heart: normal S1 and S2; no rub or gallop Lungs: clear Abdomen: soft, nontender, nondistended, positive bowel sounds Extremities: 1+ presacral edema. left AKA and right BKA Skin: No rash or subcu nodules Objective Data Vital Signs Vital Signs: Vital Signs - 24 hr 08/31/22 09:33 08/31/22 09:36 08/31/22 10:00 Temperature 36.7 C Pulse Rate 104 H 102 H 103 H Respiratory Rate 16 Blood Pressure 123/59 L 131/68 96/55 L Pulse Oximetry Oxygen Delivery 08/31/22 10:30 08/31/22 11:00 08/31/22 11:30 Temperature Pulse Rate 103 H 100 100 Respiratory Rate Blood Pressure 109/60 99/65 L 110/62 Pulse Oximetry Oxygen Delivery 08/31/22 08:00 08/31/22 12:00 08/31/22 12:00 Temperature Pulse Rate 105 H 100 99 Respiratory Rate Blood Pressure 87/65 L Pulse Oximetry Oxygen Delivery 08/31/22 12:19 08/31/22 12:41 08/31/22 08:00 Temperature 36.6 C Pulse Rate 98 99 Respiratory Rate 16 Blood Pressure 115/64 115/57 L Pulse Oximetry Oxygen Delivery Room Air 08/31/22 16:00 08/31/22 20:00 08/31/22 20:00 Temperature Pulse Rate 101 H 94 Respiratory Rate Blood Pressure Pulse Oximetry Oxygen Delivery Room Air 09/01/22 00:00 09/01/22 04:00 09/01/22 06:54 Temperature 37.1 C Pulse Rate 99 102 H 96 Respiratory Rate 18 Blood Pressure 110/71 Pulse Oximetry
--- NOTE | 2022-09-01 07:26 | PM.PNNEP ---
Progress Note: A&P Assessment and Plan (1) ESRD (end stage renal disease): Code(s): N18.6 - End stage renal disease Status: Chronic Assessment and Plan: HD due tomorrow. Potassium is normal volume status looks okay (2) Decubitus ulcer of sacral area: Code(s): L89.159 - Pressure ulcer of sacral region, unspecified stage Status: Acute Assessment and Plan: POA most likely result of the Guillain-[place] as he has been more sedentary lately. s/p debridement and washout of sacral/ischium/left hip decubitus ulcers (on 08/25/22) status post diverting colostomy getting local wound care. on antibiotics (3) Anemia: Code(s): D64.9 - Anemia, unspecified Status: Chronic Assessment and Plan: Hemoglobin 7.7 today. Anemia is due to inflammation plus ESRD. He probably lost some blood during the debridement as well. Hemoglobin is stable. Getting Epogen with dialysis (4) Hypertension: Code(s): I10 - Essential (primary) hypertension Status: Acute Assessment and Plan: BP is up and down, between 87 and 115. no need for blood pressure meds yet. (5) IDDM (insulin dependent diabetes mellitus): Status: Chronic Assessment and Plan: On Accu-Cheks and sliding-scale insulin. Subjective Date/time seen: 09/01/22 07:26 Interval history: Ish is feeling okay. he had a diverting colostomy Monday. He feels okay today. He is having some pain in his wounds. Exam Narrative: General: WD/WN male in NAD Heart: normal S1 and S2; no rub or gallop Lungs: clear Abdomen: soft, nontender, nondistended, positive bowel sounds Extremities: 1+ presacral edema. left AKA and right BKA Skin: No rash or subcu nodules Objective Data Vital Signs Vital Signs: Vital Signs - 24 hr 08/31/22 09:33 08/31/22 09:36 08/31/22 10:00 Temperature 36.7 C Pulse Rate 104 H 102 H 103 H Respiratory Rate 16 Blood Pressure 123/59 L 131/68 96/55 L Pulse Oximetry Oxygen Delivery 08/31/22 10:30 08/31/22 11:00 08/31/22 11:30 Temperature Pulse Rate 103 H 100 100 Respiratory Rate Blood Pressure 109/60 99/65 L 110/62 Pulse Oximetry Oxygen Delivery 08/31/22 08:00 08/31/22 12:00 08/31/22 12:00 Temperature Pulse Rate 105 H 100 99 Respiratory Rate Blood Pressure 87/65 L Pulse Oximetry Oxygen Delivery 08/31/22 12:19 08/31/22 12:41 08/31/22 08:00 Temperature 36.6 C Pulse Rate 98 99 Respiratory Rate 16 Blood Pressure 115/64 115/57 L Pulse Oximetry Oxygen Delivery Room Air 08/31/22 16:00 08/31/22 20:00 08/31/22 20:00 Temperature Pulse Rate 101 H 94 Respiratory Rate Blood Pressure Pulse Oximetry Oxygen Delivery Room Air 09/01/22 00:00 09/01/22 04:00 09/01/22 06:54 Temperature 37.1 C Pulse Rate 99 102 H 96 Respiratory Rate 18 Blood Pressure 110/71 Pulse Oximetry 98 Oxygen Delivery Intake/Output Intake/Output: Intake & Output 08/29/22 08/30/22 08/31/22 09/01/22 23:59 23:59 23:59 23:59 Intake Total 3090 2035 1722 Output Total 2014 988 2257 400 Balance 1075 1235 -702 -400 Meds/Results Medications: Active Medications Generic Name Dose Route Start Last Admin Trade Name Freq PRN Reason Stop Dose Admin Acetaminophen 650 mg 08/26/22 08:40 Acetaminophen 325 Mg Tablet PO Q4H PRN Mild Pain (1-3) or Fever Hydrocodone Bitart/Acetaminophen 1 tab 08/26/22 08:38 08/28/22 15:06 Hydrocodone/Acetaminophen (*Crx) 5-325 Mg Tablet PO 1 tab Q6H PRN Administration Pain Rated 4-6 Hydrocodone Bitart/Acetaminophen 1 tab 08/30/22 17:38 08/31/22 14:58 Hydrocodone/Acetaminophen (*Crx) 7.5-325 Mg Tablet PO 1 tab Q6H PRN Administration Pain Rated 7-10 Alvimopan 12 mg 08/31/22 21:00 08/31/22 20:48 Alvimopan 12 Mg Capsule PO 09/07/22 20:59 12 mg Q12H
[2022-09-01] MEDS: LORazepam (*CRX) 0.5 MG TABLET PO ×2 (07:51→17:56)
[2022-09-01] MEDS: HYDROcodone/acetaminophen (*CRX) 5-325 MG TABLET 1 TAB PO ×2 (07:51→17:56)
[2022-09-01 07:59] LABS: Glucose Point of Care 140 mg/dl (65-105)
--- NOTE | 2022-09-01 08:13 | PM.IMPN ---
Progress Note: A&P Assessment and Plan (1) Decubitus ulcers: Code(s): L89.90 - Pressure ulcer of unspecified site, unspecified stage Status: Chronic Assessment and Plan: Initially presented from home with infected wounds after having gone two weeks without wound care. Vancomycin and zosyn started 08/25/22. 08/25/22 had debridement and washout of stage IV sacral decubitus ulcer, left decubitus ischial ulcer and left hip ulcer. 08/28/22 had bedside debridement of sacral decubitus and distal below the knee stump. 08/30/22 had debridement of skin, subcutaneous tissue and necrotic muscle of the right BKA and laparoscopic creation of end colostomy. 08/28 wcx with gram negative bacilli pending speciation. Leukocytosis largely unchanged. Will see if diverting ostomy helps resolve chronic infection. If this does not significantly improve with continued treatment with vancomycin and zosyn, will need do workup to rule out osteomyelitis. Contacted by care coordination and notified the patient would like to proceed with hospice. Hospice consult place. Will plan to discontinue labs and antibiotics should patient proceed with hospice. (2) DKA (diabetic ketoacidoses): Qualifiers: Diabetes mellitus type: type 1 Diabetes mellitus complication detail: without coma Qualified Code(s): E10.10 - Type 1 diabetes mellitus with ketoacidosis without coma Code(s): E11.10 - Type 2 diabetes mellitus with ketoacidosis without coma Status: Resolved Assessment and Plan: Admitted to the ICU for DKA after initial presentation to the emergency department. This resolved after treatment in the ICU. Resolved. (3) IDDM (insulin dependent diabetes mellitus): Status: Chronic Assessment and Plan: S/p admission to ICU for DKA. BG improved. Will monitor. -Continue glargine 7 units BID -Continue aspart 2 units TIDWM -Low dose SSI (4) ESRD (end stage renal disease): Code(s): N18.6 - End stage renal disease Status: Chronic Assessment and Plan: ESRD with hemodialysis through a catheter. -Appreciate recommendations from Nephrology (5) Anemia: Code(s): D64.9 - Anemia, unspecified Status: Chronic Assessment and Plan: Likely secondary to his end-stage renal disease. At baseline. -Appreciate recommendations from Nephrology (6) Depression with anxiety: Code(s): F41.8 - Other specified anxiety disorders Status: Acute Assessment and Plan: -continue with sertraline (7) Hypertension: Qualifiers: Hypertension type: unspecified Qualified Code(s): I10 - Essential (primary) hypertension Code(s): I10 - Essential (primary) hypertension Status: Acute Assessment and Plan: BP soft intially, so antihypertensives held. BP normotensive. Will continue to hold BP medications for now. (8) CHF (congestive heart failure): Qualifiers: Heart failure chronicity: unspecified Heart failure type: unspecified Qualified Code(s): I50.9 - Heart failure, unspecified Code(s): I50.9 - Heart failure, unspecified Status: Acute Assessment and Plan: Last echo 03/06/21 w/ EF 55-60% with grade I diastolic dysfunction and severely increased left ventricular wall thickness. HFpEF. Stable. Will monitor. (9) Coronary artery disease: Qualifiers: Coronary Disease-Associated Artery/Lesion type: [place] artery [place] vs. transplanted heart: [place] heart Associated angina: without angina Qualified Code(s): I25.10 - Atherosclerotic heart disease of [place] coronary artery without angina pectoris Code(s): I25.10 - Atherosclerotic heart disease of [place] coronary artery without angina pectoris Status: Acute Assessment and Plan: Takes statin, aspirin, beta graciela and ticagrelor. -Continue statin -Hold BB due to BP which fluctuati
[2022-09-01] MEDS: INSULIN GLARGINE (*BKC) 100 UNITS/ML 7 UNITS SUB-Q (09:10)
[2022-09-01] MEDS: INSULIN ASPART (*BKC) 100 UNITS/ML SUB-Q ×3 (09:10→12:15)
[2022-09-01] MEDS: NICOTINE (*PBKC) 21 MG PATCH 1 PATCH TRANSDERM (09:15)
[2022-09-01] MEDS: GABAPENTIN 300 MG CAPSULE PO (09:15)
[2022-09-01] MEDS: CHOLECALCIFEROL 1,000 UNITS TABLET 1000 UNITS PO (09:16)
[2022-09-01] MEDS: SERTRALINE HCL 50 MG TABLET 100 MG PO (09:16)
[2022-09-01] MEDS: CYANOCOBALAMIN 1,000 MCG TABLET 1000 MCG PO (09:16)
[2022-09-01] MEDS: VITAMIN B CMPLX/VIT C/FOLIC AC 1 CAPSULE 1 CAP PO (09:16)
[2022-09-01] MEDS: ALVIMOPAN 12 MG CAPSULE PO (09:16)
[2022-09-01] MEDS: TOLNAFTATE 1% POWDER 45 GM BTL 1 APPLIC TOPICAL ×2 (09:16→21:45)
[2022-09-01] MEDS: SILVERGEL (ELTA) 45 ML 1 APPLIC TOPICAL (09:17)
[2022-09-01] MEDS: SOD HYPOCHLORITE 1/4 STRENGTH 473 ML 1 APPLIC TOPICAL ×2 (09:17→21:44)
--- NOTE | 2022-09-01 11:12 | PCNFU ---
Nutrition Follow-Up Complete: Increased protein energy needs related to wound healing as evidenced by wound report. Goal:Adequate PO intake at least 75% meals Tolerate supplements Pt current nutrition is Diabetic diet. Nutrition recommendation: Resume Nepro and MADELYN BID Last recorded weight is 56.9 kg-stable Bowel Motility: +BM 08/29 Labs Reviewed: Hgb:7.7, HCT:25, ALB:2.5. NA:133, BUN:43, Cr:3.5, Glu:140 Meds Noted: novolod, lantus Skin: multiple areas of skin breakdown Additional Notes: Pt was on clear liquids, has been restarted on a diabetic diet. Asking for Nepro and MADELYN to be restarted, will order. Agree with diet orders. Monitor intakes, weights, skin, labs, discharge planning. Follow up in 5 days
[2022-09-01 11:45] LABS: Glucose Point of Care 282 mg/dl (65-105)
[2022-09-01] MEDS: LACTATED RINGERS 1,000 ML 40 ML IV CONT (12:12)
[2022-09-01] MEDS: PANTOPRAZOLE SODIUM IV 40 MG VIAL IV PUSH (12:13)
[2022-09-01] MEDS: HYDROcodone/acetaminophen (*CRX) 7.5-325 MG TABLET 1 TAB PO (12:49)
--- NOTE | 2022-09-01 17:44 | PC.NURSE ---
Pt met with [facility]. Paperwork signed. Daughter and coming up tomorrow at noon for a family meeting to decide where he will be discharged to. Pt eager to not have rules and restrictions anymore. Awaiting MD to come to the floor to sign POLST to make him a DNR.
--- NOTE | 2022-09-01 22:40 | PM.PNGS ---
Progress Note: A&P Assessment and Plan (1) Decubitus ulcer of sacral area: Code(s): L89.159 - Pressure ulcer of sacral region, unspecified stage Status: Acute Assessment and Plan: The sacral decubitus ulcer extends to the anal verge. The sacral wound would now be a candidate for a wound vac. He is not having much anal drainage we will consider placing a irrigating wound VAC on somewhat purulent sacral coccygeal area wound. However today when she went to see him wound care nurse states that he refused the wound VAC states that he wants to leave the hospital and forego further treatment. (2) Sepsis: Code(s): A41.9 - Sepsis, unspecified organism Status: Acute Assessment and Plan: WBC slightly improved, HD stable, cont IV antibiotics. (3) Status post below knee amputation of right lower extremity: Code(s): Z89.511 - Acquired absence of right leg below knee Status: Acute Assessment and Plan: Right BKA stump s/p bedside debridement on 08/28 now with some purulent drainage. This also was debrided in the OR on 08/30 & dressing was changed today. We will use Dakin solution on this dirty wound. There is tibia exposed once we get the wound cleaned up he may be a candidate for converting to above the knee amputation on this side. Will discuss with Dr. Hercules when he returns. Wound cx pending. Continue local wound care. Plan If Patient continues to refuse wound and other treatments he may go home with hospice only.. Subjective Subjective Date/Time Seen: 09/01/22 07:40 Post Op day: 2 (Ostomy remains viable.) Patient reports: no new complaints, feels better and still having pain ( Mild areas of incision for recent surgery) Interval history: patient is not nauseated tolerating clears so will increase his diet. Review of Systems Review of Systems: All systems reviewed & are unremarkable except as noted in HPI and below Constitutional: Constitutional: Reports as per HPI, Denies chills and Denies fever(s) Cardiovascular: Cardiovascular: Denies chest pain and Denies dyspnea Respiratory: Respiratory: Reports no additional respiratory complaints and Denies dyspnea Gastrointestinal: Gastrointestinal: Reports as per HPI and Denies bloating Musculoskeletal: Musculoskeletal: Reports no additional musculoskeletal complaints Neurologic: Denies memory loss Psychiatric: Psychiatric: Denies anxiety and Denies memory loss Exam Const: General: cooperative, comfortable, alert and awake Orientation/consciousness: patient oriented x3 HENMT: Head: normal to inspection Mouth: Yes moist mucous membranes Eyes: Sclera: sclerae normal Pupils: Equal, round and reactive pupils present Neck: Neck: normal visual inspection and no JVD Chest: Chest palpation & inspection: normal inspection of the chest Resp: Effort & Inspection: normal respiratory effort Auscultation: clear to auscultation bilaterally GI: Inspection: incision ( Clean and dry) and no visible herniation Auscultation: normal bowel sounds Other: ostomy is slightly purplish dark more on cephalad side and some areas of central pink mucosa. There is slight serosanguineous drainage and some gas and stool in the bag. Neuro: General: patient oriented x3 Cranial nerves: Yes Equal, round and reactive pupils present Objective Data Vital Signs Vital Signs: Vital Signs - 24 hr 09/01/22 00:00 09/01/22 04:00 09/01/22 06:54 Temperature 37.1 C Pulse Rate 99 102 H 96 Respiratory Rate 18 Blood Pressure 110/71 Pulse Oximetry 98 Oxygen Delivery 09/01/22 08:00 09/01/22 08:00 09/01/22 12:00 Temperature Pulse Rate 97 101 H Respiratory Rate Blood Pressure Pulse Oximetry Oxygen Delivery Room Air 09/01/22 16:00 09/01/22 20:00 Temperature Pulse Rate 108 H 109 H Respiratory Rate Blood Pressure Pulse Oximetry Oxygen Delivery Intake/Output Intake/Output: Inta
[2022-09-02] VITALS (25 sets, daily range): BP systolic 89–141; BP diastolic 50–73; PULSE 62–107; RESP 18–20; TEMP 36.4–37; O2SAT 97
[2022-09-02 08:09] LABS: Glucose Point of Care 484 mg/dl (65-105)
[2022-09-02 08:13] LABS: Glucose Point of Care > 500 mg/dl (65-105)
--- NOTE | 2022-09-02 08:36 | PC.NURSE ---
call to pharmacy for regular insulin as it is not stocked on the floor
[2022-09-02] MEDS: INSULIN HUMAN REGULAR (*BKC) 100 UNITS/ML 15 UNITS SUB-Q (09:08)
[2022-09-02] MEDS: LORazepam (*CRX) 0.5 MG TABLET PO ×2 (09:11→21:24)
[2022-09-02] MEDS: HYDROcodone/acetaminophen (*CRX) 7.5-325 MG TABLET 1 TAB PO ×3 (09:11→21:24)
[2022-09-02] MEDS: INSULIN GLARGINE (*BKC) 100 UNITS/ML 7 UNITS SUB-Q ×2 (09:13→21:21)
[2022-09-02] MEDS: NICOTINE (*PBKC) 21 MG PATCH 1 PATCH TRANSDERM (09:14)
[2022-09-02] MEDS: SERTRALINE HCL 50 MG TABLET 100 MG PO (09:15)
[2022-09-02] MEDS: VITAMIN B CMPLX/VIT C/FOLIC AC 1 CAPSULE 1 CAP PO (09:15)
[2022-09-02] MEDS: ATORVASTATIN 40 MG TABLET 80 MG PO (09:15)
[2022-09-02] MEDS: CYANOCOBALAMIN 1,000 MCG TABLET 1000 MCG PO (09:16)
[2022-09-02] MEDS: ASPIRIN 81 MG CHEWABLE TABLET PO (09:16)
[2022-09-02] MEDS: GABAPENTIN 300 MG CAPSULE PO (09:16)
[2022-09-02] MEDS: ALVIMOPAN 12 MG CAPSULE PO ×2 (09:16→21:21)
[2022-09-02] MEDS: CHOLECALCIFEROL 1,000 UNITS TABLET 1000 UNITS PO (09:17)
--- NOTE | 2022-09-02 09:30 | PC.NURSE ---
pt to dialysis via bed
--- NOTE | 2022-09-02 09:32 | PM.IMPN ---
Progress Note: A&P Assessment and Plan (1) Decubitus ulcers: Code(s): L89.90 - Pressure ulcer of unspecified site, unspecified stage Status: Chronic Assessment and Plan: Initially presented from home with infected wounds after having gone two weeks without wound care. Vancomycin and zosyn started 08/25/22. 08/25/22 had debridement and washout of stage IV sacral decubitus ulcer, left decubitus ischial ulcer and left hip ulcer. 08/28/22 had bedside debridement of sacral decubitus and distal below the knee stump. 08/30/22 had debridement of skin, subcutaneous tissue and necrotic muscle of the right BKA and laparoscopic creation of end colostomy. Leukocytosis largely unchanged. Diverting seemed to have helped with leukocytosis decreasing yesterday. 08/28 wcx with ESBL Escherichia coli and klebsiella pneumonia. Discussed with ID pharmacist and will attempt treatment with ertapenem for now. -Ertapenem 500 mg daily - renally dosed -Wound nurse contacted to apply vac (2) DKA (diabetic ketoacidoses): Qualifiers: Diabetes mellitus type: type 1 Diabetes mellitus complication detail: without coma Qualified Code(s): E10.10 - Type 1 diabetes mellitus with ketoacidosis without coma Code(s): E11.10 - Type 2 diabetes mellitus with ketoacidosis without coma Status: Resolved Assessment and Plan: Admitted to the ICU for DKA after initial presentation to the emergency department. This resolved after treatment in the ICU. Resolved. (3) IDDM (insulin dependent diabetes mellitus): Status: Chronic Assessment and Plan: S/p admission to ICU for DKA. BG worsened, which may be due to infection. Will monitor. -Continue glargine 7 units BID -Increase aspart to 4 units TIDWM -High dose SSI (4) ESRD (end stage renal disease): Code(s): N18.6 - End stage renal disease Status: Chronic Assessment and Plan: ESRD with hemodialysis through a catheter. -Appreciate recommendations from Nephrology (5) Anemia: Code(s): D64.9 - Anemia, unspecified Status: Chronic Assessment and Plan: Likely secondary to his end-stage renal disease. At baseline. -Appreciate recommendations from Nephrology (6) Depression with anxiety: Code(s): F41.8 - Other specified anxiety disorders Status: Acute Assessment and Plan: -continue with sertraline (7) Hypertension: Qualifiers: Hypertension type: unspecified Qualified Code(s): I10 - Essential (primary) hypertension Code(s): I10 - Essential (primary) hypertension Status: Acute Assessment and Plan: BP soft intially, so antihypertensives held. BP normotensive. Will continue to hold BP medications for now. (8) CHF (congestive heart failure): Qualifiers: Heart failure chronicity: unspecified Heart failure type: unspecified Qualified Code(s): I50.9 - Heart failure, unspecified Code(s): I50.9 - Heart failure, unspecified Status: Acute Assessment and Plan: Last echo 03/06/21 w/ EF 55-60% with grade I diastolic dysfunction and severely increased left ventricular wall thickness. HFpEF. Stable. Will monitor. (9) Coronary artery disease: Qualifiers: Coronary Disease-Associated Artery/Lesion type: [place] artery [place] vs. transplanted heart: [place] heart Associated angina: without angina Qualified Code(s): I25.10 - Atherosclerotic heart disease of [place] coronary artery without angina pectoris Code(s): I25.10 - Atherosclerotic heart disease of [place] coronary artery without angina pectoris Status: Acute Assessment and Plan: Takes statin, aspirin, beta graciela and ticagrelor. -Continue statin -Hold BB due to BP which fluctuations between hypotensive and normotensive -Will resume aspirin -Continue to hold ticagrelor (10) Hyperkalemia:
--- NOTE | 2022-09-02 11:22 | PM.PNGS ---
Progress Note: A&P Assessment and Plan (1) Decubitus ulcer of sacral area: Code(s): L89.159 - Pressure ulcer of sacral region, unspecified stage Status: Acute Assessment and Plan: Patient continues to progress status post diverting colostomy formation. Needs dressing changes at least every other day if he goes hospice on these areas of the sacrum and coccyx. (2) Status post below knee amputation of right lower extremity: Code(s): Z89.511 - Acquired absence of right leg below knee Status: Acute Assessment and Plan: Right BKA stump s/p bedside debridement on 08/28 now with some purulent drainage. This also was debrided in the OR on 08/30 & dressing was not changed by me today. We will use Dakin's solution on this dirty wound. There is tibia exposed once we get the wound cleaned up he may be a candidate for converting to above the knee amputation on this side. Patient is considering hospice so will discontinue medicated dressing changes if he decides to go that way. Will discuss with Dr. Hercules. Wound cx pending. Continue local wound care. Plan If patient continues to refuse wound and other treatments he may go home with hospice only. However, to avoid potification his wounds and worsening condition would recommend continuing simple dosing changes with Dakin's solution if he goes back to the longterm or home with hospice assistance. Subjective Subjective Date/Time Seen: 09/02/22 10:22 Post Op day: 3 ( Status post diverting sigmoid colostomy and debridement of necrotic right BKA stump) Patient reports: no new complaints and tolerating a regular diet ( renal deficiency diet) Interval history: patient has decided that he does not want to continue all treatments. He is having a family meeting and will possibly move into hospice situation after that today. Patient complains of a little leakage from his ostomy bag overnight but otherwise no problems. He is tolerating a soft diet well. Review of Systems Review of Systems: All systems reviewed & are unremarkable except as noted in HPI and below Constitutional: Constitutional: Reports as per HPI, Denies chills and Denies fever(s) Cardiovascular: Cardiovascular: Denies chest pain and Denies dyspnea Respiratory: Respiratory: Reports no additional respiratory complaints and Denies dyspnea Gastrointestinal: Gastrointestinal: Reports as per HPI and Denies bloating Musculoskeletal: Musculoskeletal: Reports no additional musculoskeletal complaints Psychiatric: Psychiatric: Denies anxiety Exam Const: General: cooperative, comfortable, alert and awake Orientation/consciousness: patient oriented x3 Other: Patient seen while on dialysis. He seemed comfortable. HENMT: Head: normal to inspection Mouth: Yes moist mucous membranes Eyes: Sclera: sclerae normal Pupils: Equal, round and reactive pupils present Neck: Neck: normal visual inspection and no JVD Chest: Chest palpation & inspection: normal inspection of the chest Resp: Effort & Inspection: normal respiratory effort Auscultation: clear to auscultation bilaterally GI: Inspection: normal to inspection, incision ( Laparoscopic trocar incisions healing well no signs of infection, ) and scaphoid Auscultation: normal bowel sounds Other: Surgical glue in place on incisions. Ostomy: The outer upper rim or superior rim is somewhat dark but centrally there was good pink tissue. He may have some sloughing on it eventually of the mucosa but it appears that the ostomy is viable. Patient states he did work with ostomy training yesterday but he has trouble manipulating his hands due to his [place] syndrome so if he goes home his would help to help with the ostomy bag. If he goes to the longterm the aids there would help him with this. Extrem: Other: Right BKA stump is dressed I did not look at this today. Objective Data Vital Signs Vital Signs: Vital Sign
--- NOTE | 2022-09-02 11:29 | PM.PNNEP ---
Progress Note: A&P Assessment and Plan (1) ESRD (end stage renal disease): Code(s): N18.6 - End stage renal disease Status: Chronic Assessment and Plan: patient is on dialysis and tolerating it well. (2) Decubitus ulcer of sacral area: Code(s): L89.159 - Pressure ulcer of sacral region, unspecified stage Status: Acute Assessment and Plan: Getting local wound care. He is on antibiotics. He had a diverting colostomy. (3) Anemia: Code(s): D64.9 - Anemia, unspecified Status: Chronic Assessment and Plan: He is getting Epogen. No need for iron because of infection. (4) Hypertension: Code(s): I10 - Essential (primary) hypertension Status: Acute Assessment and Plan: Blood pressure is under good control now. (5) IDDM (insulin dependent diabetes mellitus): Status: Chronic Assessment and Plan: On Accu-Cheks and sliding-scale insulin per hospitalists. Subjective Date/time seen: 09/02/22 11:29 Interval history: Ish is feeling okay. he is in less pain today. He is on dialysis and tolerating it well. He was seen at 10:20 a.m. Review of Systems Cardiovascular: Cardiovascular: Reports no additional cardiovascular complaints Respiratory: Respiratory: Reports no additional respiratory complaints Gastrointestinal: Gastrointestinal: Reports no additional gastrointestinal complaints Genitourinary: Genitourinary: Reports no additional male genitourinary complaints Exam Narrative: WDWN in NAD skin no rash head ncat lungs clear cor reg no rub abd BS+ nontender and soft . Colostomy present on left abdomen ext no edema. 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 Left BKA. Objective Data Vital Signs Vital Signs: Vital Signs - 24 hr 09/01/22 12:00 09/01/22 16:00 09/01/22 20:00 Temperature Pulse Rate 101 H 108 H 109 H Respiratory Rate Blood Pressure Oxygen Delivery 09/01/22 20:00 09/02/22 00:00 09/02/22 04:00 Temperature Pulse Rate 98 103 H Respiratory Rate Blood Pressure Oxygen Delivery Room Air 09/02/22 09:43 Temperature 36.6 C Pulse Rate 105 H Respiratory Rate 20 Blood Pressure 141/71 H Oxygen Delivery Intake/Output Intake/Output: Intake & Output 08/30/22 08/31/22 09/01/22/21/22 23:59 23:59 23:59 23:59 Intake Total 2033 1776 3160 240 Output Total 800 8276 750 125 Balance 1235 -652 2410 115 Meds/Results Medications: Active Medications Generic Name Dose Route Start Last Admin Trade Name Freq PRN Reason Stop Dose Admin Acetaminophen 650 mg 08/26/22 08:40 Acetaminophen 325 Mg Tablet PO Q4H PRN Mild Pain (1-3) or Fever Hydrocodone Bitart/Acetaminophen 1 tab 08/26/22 08:38 09/01/22 17:56 Hydrocodone/Acetaminophen (*Crx) 5-325 Mg Tablet PO 1 tab Q6H PRN Administration Pain Rated 4-6 Hydrocodone Bitart/Acetaminophen 1 tab 08/30/22 17:38 09/02/22 09:11 Hydrocodone/Acetaminophen (*Crx) 7.5-325 Mg Tablet PO 1 tab Q6H PRN Administration Pain Rated 7-10 Alvimopan 12 mg 08/31/22 21:00 09/02/22 09:16 Alvimopan 12 Mg Capsule PO 09/07/22 20:59 12 mg Q12HR MARTHA Administration Aspirin 81 mg 09/02/22 09:00 09/02/22 09:16 Aspirin 81 Mg Chewable Tablet PO 81 mg DAILY MARTHA Administration Atorvastatin Calcium 80 mg 09/02/22 09:00 09/02/22 09:15 Atorvastatin 40 Mg Tablet PO 80 mg DAILY MARTHA Administration Cyanocobalamin 1,000 mcg 08/26/22 11:35 09/02/22 09:16 Cyanocobalamin 1,000 Mcg Tablet PO 1,000 mcg DAILY MARTHA Administration Dextrose 12.5 gm 08/25/22 15:27 08/26/22 07:25 Dextrose 50% 25 Gm/50 Ml Syringe IV PUSH 12.5 gm PRN PRN Administration Hypoglycemia Protocol Epoetin Johnnie-epbx 10,000 units 08/31/22 08:00 08/31/22 12:12 Epoetin Johnnie-Epbx 10,000 Units/Ml Vial IV PUSH 10,000 units MOWEFR MARTHA Administration Fentanyl Citrate 25 mcg 08/13
--- NOTE | 2022-09-02 13:14 | PC.NURSE ---
after speaking to [facility] hospice today, pt has decided to decline hospice at this time, and daughter were to room and agreeable to taking pt home on hospice, he is refusing that option at this time, hospice nurse called MD to report
--- NOTE | 2022-09-02 13:40 | PC.NURSE ---
call to IV therapy RN to place IV with US for antibiotic therapy
--- NOTE | 2022-09-02 13:41 | PC.NURSE ---
pt returned to room from dialysis via bed
[2022-09-02 13:48] LABS: Glucose Point of Care 235 mg/dl (65-105)
[2022-09-02] MEDS: INSULIN ASPART (*BKC) 100 UNITS/ML SUB-Q ×4 (14:25→17:34)
[2022-09-02] MEDS: ERTAPENEM SODIUM 0.5 GM in SODIUM CHLORIDE 0.9% IV 50 ML IVPB (14:40)
[2022-09-02 17:03] LABS: Glucose Point of Care 334 mg/dl (65-105)
[2022-09-02] MEDS: SOD HYPOCHLORITE 1/4 STRENGTH 473 ML 1 APPLIC TOPICAL ×2 (17:37→21:21)
[2022-09-02] MEDS: SILVERGEL (ELTA) 45 ML 1 APPLIC TOPICAL (17:37)
[2022-09-02] MEDS: TOLNAFTATE 1% POWDER 45 GM BTL 1 APPLIC TOPICAL ×2 (17:37→21:22)
[2022-09-02] MEDS: PANTOPRAZOLE 40 MG TABLET PO (21:23)
[2022-09-02 22:09] LABS: Glucose Point of Care 349 mg/dl (65-105)
[2022-09-03] VITALS (10 sets, daily range): BP systolic 105–152; BP diastolic 51–63; PULSE 77–118; RESP 16–20; TEMP 36.5–36.9; O2SAT 95–97
[2022-09-03 05:57] LABS: Basophils Absolute Auto 0.1 K/mm3 (0.0-0.1); Basophils Percent Auto 0.3 % (0.2-1.2); Eosinophils Absolute Auto 0.2 K/mm3 (0-0.3); Eosinophils Percent Auto 1.3 % (0-4.4); Hematocrit 26.3 % (42.0-52.0); Hemoglobin 7.9 g/dL (14.0-18.0); Immature Granulocyte Absolute 0.16 K/mm3 (0.00-0.031); Immature Granulocyte Percent A 0.9 % (0-0.5); Lymphocytes Absolute Auto 1.74 K/mm3 (0.9-3.2); Lymphocytes Percent Auto 9.5 % (18.3-44.2); Mean Corpuscular Hemoglobin 27.2 pg (26-34); Mean Corpuscular Volume 90.7 fl (80-100); Mean Platelet Volume 10.1 fl (7.4-10.4); Monocytes Absolute Auto 1.3 K/mm3 (0.1-0.6); Monocytes Percent Auto 7.2 % (2.6-8.5); Neutrophils Absolute Auto 14.9 K/mm3 (1.3-6.7); Neutrophils Percent Auto 80.8 % (45.5-73.1); Platelet Count Result 554 k/mm3 (150-375); Red Cell Distribution Width 17.5 % (11.5-14.5); White Blood Count 18.4 K/mm3 (4.5-10.0)
[2022-09-03 06:08] LABS: Albumin Level 2.4 g/dL (3.5-5.1); Anion Gap 13 mmol/L (8-16); Blood Urea Nitrogen 37 mg/dL (9-20); Calcium 8.6 mg/dL (8.4-10.2); Carbon Dioxide 33 mmol/L (22-30); Chloride 94 mmol/L (98-107); Estimated CRCL calculation 18 ml/min; Estimated Glomerular Filt Rate 19; Glucose 338 mg/dL (65-110); Phosphorus 5.3 mg/dL (2.5-4.5); Potassium 4.3 mmol/L (3.4-5.0); Sodium 140 mmol/L (137-145)
[2022-09-03 08:36] LABS: Glucose Point of Care 337 mg/dl (65-105)
[2022-09-03] MEDS: INSULIN ASPART (*BKC) 100 UNITS/ML SUB-Q ×6 (09:01→17:50)
[2022-09-03] MEDS: VITAMIN B CMPLX/VIT C/FOLIC AC 1 CAPSULE 1 CAP PO (09:08)
[2022-09-03] MEDS: ASPIRIN 81 MG CHEWABLE TABLET PO (09:08)
[2022-09-03] MEDS: GABAPENTIN 300 MG CAPSULE PO (09:08)
[2022-09-03] MEDS: ATORVASTATIN 40 MG TABLET 80 MG PO (09:09)
[2022-09-03] MEDS: PANTOPRAZOLE 40 MG TABLET PO ×2 (09:09→21:34)
[2022-09-03] MEDS: CYANOCOBALAMIN 1,000 MCG TABLET 1000 MCG PO (09:09)
[2022-09-03] MEDS: CHOLECALCIFEROL 1,000 UNITS TABLET 1000 UNITS PO (09:10)
[2022-09-03] MEDS: NICOTINE (*PBKC) 21 MG PATCH 1 PATCH TRANSDERM (09:10)
[2022-09-03] MEDS: SERTRALINE HCL 50 MG TABLET 100 MG PO (09:10)
[2022-09-03] MEDS: ALVIMOPAN 12 MG CAPSULE PO (09:10)
[2022-09-03] MEDS: INSULIN GLARGINE (*BKC) 100 UNITS/ML 7 UNITS SUB-Q ×2 (09:15→21:34)
--- NOTE | 2022-09-03 09:19 | PM.IMPN ---
Progress Note: A&P Assessment and Plan (1) Decubitus ulcers: Code(s): L89.90 - Pressure ulcer of unspecified site, unspecified stage Status: Chronic Assessment and Plan: Initially presented from home with infected wounds after having gone two weeks without wound care. Vancomycin and zosyn started 08/25/22. 08/25/22 had debridement and washout of stage IV sacral decubitus ulcer, left decubitus ischial ulcer and left hip ulcer. 08/28/22 had bedside debridement of sacral decubitus and distal below the knee stump. 08/30/22 had debridement of skin, subcutaneous tissue and necrotic muscle of the right BKA and laparoscopic creation of end colostomy. Leukocytosis largely unchanged. Diverting seemed to have helped with leukocytosis decreasing yesterday. 08/28 wcx with ESBL Escherichia coli and klebsiella pneumonia. Discussed with ID pharmacist and will attempt treatment with ertapenem for now. Leukocytosis worsened today but this was somewhat expected. Will continue to monitor as patient is on appropriate antibiotics based on culture sensitivities. -Ertapenem 500 mg daily - renally dosed -Wound care consulted (2) DKA (diabetic ketoacidoses): Qualifiers: Diabetes mellitus type: type 1 Diabetes mellitus complication detail: without coma Qualified Code(s): E10.10 - Type 1 diabetes mellitus with ketoacidosis without coma Code(s): E11.10 - Type 2 diabetes mellitus with ketoacidosis without coma Status: Resolved Assessment and Plan: Admitted to the ICU for DKA after initial presentation to the emergency department. This resolved after treatment in the ICU. Resolved. (3) IDDM (insulin dependent diabetes mellitus): Status: Chronic Assessment and Plan: S/p admission to ICU for DKA. BG worsened, which may be due to infection. Gave insulin regular 6 units x1 this morning. -Continue glargine 7 units BID -Increase aspart to 4 units TIDWM -High dose SSI (4) ESRD (end stage renal disease): Code(s): N18.6 - End stage renal disease Status: Chronic Assessment and Plan: ESRD with hemodialysis through a catheter. -Appreciate recommendations from Nephrology (5) Anemia: Code(s): D64.9 - Anemia, unspecified Status: Chronic Assessment and Plan: Likely secondary to his end-stage renal disease. At baseline. -Appreciate recommendations from Nephrology (6) Depression with anxiety: Code(s): F41.8 - Other specified anxiety disorders Status: Acute Assessment and Plan: -continue with sertraline (7) Hypertension: Qualifiers: Hypertension type: unspecified Qualified Code(s): I10 - Essential (primary) hypertension Code(s): I10 - Essential (primary) hypertension Status: Acute Assessment and Plan: BP soft intially, so antihypertensives held. BP normotensive. Will continue to hold BP medications for now. (8) CHF (congestive heart failure): Qualifiers: Heart failure chronicity: unspecified Heart failure type: unspecified Qualified Code(s): I50.9 - Heart failure, unspecified Code(s): I50.9 - Heart failure, unspecified Status: Acute Assessment and Plan: Last echo 03/06/21 w/ EF 55-60% with grade I diastolic dysfunction and severely increased left ventricular wall thickness. HFpEF. Stable. Will monitor. (9) Coronary artery disease: Qualifiers: Coronary Disease-Associated Artery/Lesion type: [place] artery [place] vs. transplanted heart: [place] heart Associated angina: without angina Qualified Code(s): I25.10 - Atherosclerotic heart disease of [place] coronary artery without angina pectoris Code(s): I25.10 - Atherosclerotic heart disease of [place] coronary artery without angina pectoris Status: Acute Assessment and Plan: Takes statin, aspirin, beta graciela and ticagrel
[2022-09-03 09:52] LABS: Erythrocyte Sedimentation Rate > 140 mm/hr (0-20)
[2022-09-03] MEDS: ERTAPENEM SODIUM 0.5 GM in SODIUM CHLORIDE 0.9% IV 50 ML IVPB (09:54)
--- NOTE | 2022-09-03 09:57 | PM.PNGS ---
Progress Note: A&P Assessment and Plan (1) Decubitus ulcer of sacral area: Code(s): L89.159 - Pressure ulcer of sacral region, unspecified stage Status: Chronic Assessment and Plan: Continue dressing changes as ordered (2) Status post colostomy: Code(s): Z93.3 - Colostomy status Status: Acute Assessment and Plan: Colostomy working well. Advance to regular diabetic diet. (3) Complication of below knee amputation stump: Code(s): T87.9 - Unspecified complications of amputation stump Status: Chronic Assessment and Plan: Continue current wound care Subjective Subjective Date/Time Seen: 09/03/22 09:58 Patient reports: no new complaints, bowel movement and afebrile Exam Const: General: comfortable and awake GI: Inspection: non-distended, incision (Dry and healing well), scaphoid and other (Air and stool in colostomy bag, working nicely) GI Palp: Yes Soft to palpation, Yes Tenderness to palpation present (GI) (Minimal, appropriate tenderness), No Hernia present and No Palpable mass present Auscultation: normal bowel sounds Objective Data Vital Signs Vital Signs: Vital Signs - 24 hr 09/02/22 10:00 09/02/22 10:15 09/02/22 10:30 Temperature Pulse Rate 103 H 62 107 H Respiratory Rate Blood Pressure 131/69 108/67 105/57 L Pulse Oximetry 09/02/22 10:45 09/02/22 11:00 09/02/22 11:15 Temperature Pulse Rate 102 H 99 97 Respiratory Rate Blood Pressure 105/62 96/58 L 103/57 L Pulse Oximetry 09/02/22 11:30 09/02/22 11:45 09/02/22 12:00 Temperature Pulse Rate 98 93 92 Respiratory Rate Blood Pressure 90/53 L 89/50 L Pulse Oximetry 09/02/22 12:00 09/02/22 12:15 09/02/22 12:30 Temperature Pulse Rate 91 89 89 Respiratory Rate Blood Pressure 99/57 L 92/53 L 100/59 L Pulse Oximetry 09/02/22 12:45 09/02/22 13:00 09/02/22 13:15 Temperature Pulse Rate 89 71 86 Respiratory Rate Blood Pressure 95/58 L 98/56 L 105/57 L Pulse Oximetry 09/02/22 13:25 09/02/22 14:27 09/02/22 16:00 Temperature 36.6 C Pulse Rate 85 88 99 Respiratory Rate 18 Blood Pressure 120/58 L 101/56 L Pulse Oximetry 09/02/22 20:22 09/03/22 05:16 09/02/22 20:00 Temperature 36.4 C 36.5 C Pulse Rate 79 77 102 H Respiratory Rate 18 20 Blood Pressure 114/59 L 123/58 L Pulse Oximetry 97 96 09/03/22 00:00 09/03/22 04:00 Temperature Pulse Rate 118 H 98 Respiratory Rate Blood Pressure Pulse Oximetry Intake/Output Intake/Output: Intake & Output 08/31/22 09/01/22 09/02/22 09/03/22 23:59 23:59 23:59 23:59 Intake Total 1772 3160 992 360 Output Total 2422 750 1425 150 Balance -652 2410 -433 210 Meds/Results Medications: Active Medications Generic Name Dose Route Start Last Admin Trade Name Freq PRN Reason Stop Dose Admin Acetaminophen 650 mg 08/26/22 08:40 Acetaminophen 325 Mg Tablet PO Q4H PRN Mild Pain (1-3) or Fever Hydrocodone Bitart/Acetaminophen 1 tab 08/26/22 08:38 09/01/22 17:56 Hydrocodone/Acetaminophen (*Crx) 5-325 Mg Tablet PO 1 tab Q6H PRN Administration Pain Rated 4-6 Hydrocodone Bitart/Acetaminophen 1 tab 08/30/22 17:38 09/02/22 21:24 Hydrocodone/Acetaminophen (*Crx) 7.5-325 Mg Tablet PO 1 tab Q6H PRN Administration Pain Rated 7-10 Aspirin 81 mg 09/02/22 09:00 09/03/22 09:08 Aspirin 81 Mg Chewable Tablet PO 81 mg DAILY MARTHA Administration Atorvastatin Calcium 80 mg 09/02/22 09:00 09/03/22 09:09 Atorvastatin 40 Mg Tablet PO 80 mg DAILY MARTHA Administration Cyanocobalamin 1,000 mcg 08/26/22 11:35 09/03/22 09:09 Cyanocobalamin 1,000 Mcg Tablet PO 1,000 mcg DAILY MARTHA Administration Dextrose 12.5 gm 08/25/22 15:27 08/26/22 07:25 Dextrose 50% 25 Gm/50 Ml Syringe IV PUSH 12.5 gm PRN PRN Administration Hypoglycemia Protocol Epoetin Johnnie-epbx 10,000 units 08/31/22 08:00
[2022-09-03] MEDS: INSULIN HUMAN REGULAR (*BKC) 100 UNITS/ML 6 UNITS SUB-Q (10:05)
--- NOTE | 2022-09-03 10:50 | PM.PNNEP ---
Progress Note: A&P Assessment and Plan (1) ESRD (end stage renal disease): Code(s): N18.6 - End stage renal disease Status: Chronic Assessment and Plan: the patient is due for dialysis on Monday. (2) Decubitus ulcer of sacral area: Code(s): L89.159 - Pressure ulcer of sacral region, unspecified stage Status: Chronic Assessment and Plan: Getting local wound care. He is on antibiotics. He had a diverting colostomy. Dr. Diaz's input noted. (3) Anemia: Code(s): D64.9 - Anemia, unspecified Status: Chronic Assessment and Plan: He is getting Epogen. No need for iron because of infection. (4) Hypertension: Code(s): I10 - Essential (primary) hypertension Status: Acute Assessment and Plan: Blood pressure is under good control now. (5) IDDM (insulin dependent diabetes mellitus): Status: Chronic Assessment and Plan: On Accu-Cheks and sliding-scale insulin per hospitalists. Subjective Date/time seen: 09/03/22 10:50 Interval history: Ish is feeling okay. Still has some pain but managed by pain meds. The rest of dialysis went okay yesterday. Exam Narrative: WDWN in NAD skin no rashor subcu nodules head ncat lungs clear cor reg no rub or gallop abd BS+ nontender and soft . Colostomy present on left abdomen ext no edema. 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 Left BKA. Objective Data Vital Signs Vital Signs: Vital Signs - 24 hr 09/02/22 11:00 09/02/22 11:15 09/02/22 11:30 Temperature Pulse Rate 99 97 98 Respiratory Rate Blood Pressure 96/58 L 103/57 L 90/53 L Pulse Oximetry 09/02/22 11:45 09/02/22 12:00 09/02/22 12:00 Temperature Pulse Rate 93 92 91 Respiratory Rate Blood Pressure 89/50 L 99/57 L Pulse Oximetry 09/02/22 12:15 09/02/22 12:30 09/02/22 12:45 Temperature Pulse Rate 89 89 89 Respiratory Rate Blood Pressure 92/53 L 100/59 L 95/58 L Pulse Oximetry 09/02/22 13:00 09/02/22 13:15 09/02/22 13:25 Temperature Pulse Rate 71 86 85 Respiratory Rate Blood Pressure 98/56 L 105/57 L 120/58 L Pulse Oximetry 09/02/22 14:27 09/02/22 16:00 09/02/22 20:22 Temperature 36.6 C 36.4 C Pulse Rate 88 99 79 Respiratory Rate 18 18 Blood Pressure 101/56 L 114/59 L Pulse Oximetry 97 09/03/22 05:16 09/02/22 20:00 09/03/22 00:00 Temperature 36.5 C Pulse Rate 77 102 H 118 H Respiratory Rate 20 Blood Pressure 123/58 L Pulse Oximetry 96 09/03/22 04:00 Temperature Pulse Rate 98 Respiratory Rate Blood Pressure Pulse Oximetry Intake/Output Intake/Output: Intake & Output 08/31/22 09/01/22 09/02/22 09/03/22 23:59 23:59 23:59 23:59 Intake Total 1772 3160 992 360 Output Total 2424 987 1425 150 Balance -652 2410 -433 210 Meds/Results Medications: Active Medications Generic Name Dose Route Start Last Admin Trade Name Freq PRN Reason Stop Dose Admin Acetaminophen 650 mg 08/26/22 08:40 Acetaminophen 325 Mg Tablet PO Q4H PRN Mild Pain (1-3) or Fever Hydrocodone Bitart/Acetaminophen 1 tab 08/26/22 08:38 09/01/22 17:56 Hydrocodone/Acetaminophen (*Crx) 5-325 Mg Tablet PO 1 tab Q6H PRN Administration Pain Rated 4-6 Hydrocodone Bitart/Acetaminophen 1 tab 08/30/22 17:38 09/02/22 21:24 Hydrocodone/Acetaminophen (*Crx) 7.5-325 Mg Tablet PO 1 tab Q6H PRN Administration Pain Rated 7-10 Aspirin 81 mg 09/02/22 09:00 09/03/22 09:08 Aspirin 81 Mg Chewable Tablet PO 81 mg DAILY MARTHA Administration Atorvastatin Calcium 80 mg 09/02/22 09:00 09/03/22 09:09 Atorvastatin 40 Mg Tablet PO 80 mg DAILY MARTHA Administration Cyanocobalamin 1,000 mcg 08/26/22 11:35 09/03/22 09:09 Cyanocobalamin 1,000 Mcg Tablet PO 1,000 mcg DAILY MARTHA Administration Dextrose 12.5 gm 08/25/22 15:27 08/26/22 07:25 Dextrose 50% 25 Gm/50 Ml Syringe IV PUSH 12.5 gm
[2022-09-03] MEDS: SOD HYPOCHLORITE 1/4 STRENGTH 473 ML 1 APPLIC TOPICAL ×2 (11:06→21:36)
[2022-09-03] MEDS: SILVERGEL (ELTA) 45 ML 1 APPLIC TOPICAL (11:06)
[2022-09-03] MEDS: TOLNAFTATE 1% POWDER 45 GM BTL 1 APPLIC TOPICAL ×2 (11:07→21:36)
[2022-09-03] MEDS: HYDROcodone/acetaminophen (*CRX) 7.5-325 MG TABLET 1 TAB PO ×2 (11:49→17:47)
[2022-09-03] MEDS: LORazepam (*CRX) 0.5 MG TABLET PO (11:49)
[2022-09-03 12:22] LABS: Glucose Point of Care 315 mg/dl (65-105)
[2022-09-03] MEDS: ACETAMINOPHEN 325 MG TABLET 650 MG PO (15:23)
[2022-09-03 17:27] LABS: Glucose Point of Care 360 mg/dl (65-105)
[2022-09-03 21:05] LABS: Glucose Point of Care 268 mg/dl (65-105)
[2022-09-04] VITALS (10 sets, daily range): BP systolic 124–148; BP diastolic 60–77; PULSE 89–101; RESP 12–20; TEMP 36.7–37.1; O2SAT 96–98
[2022-09-04 05:46] LABS: Basophils Absolute Auto 0.1 K/mm3 (0.0-0.1); Basophils Percent Auto 0.3 % (0.2-1.2); Eosinophils Absolute Auto 0.4 K/mm3 (0-0.3); Eosinophils Percent Auto 2.3 % (0-4.4); Hematocrit 26.6 % (42.0-52.0); Hemoglobin 7.9 g/dL (14.0-18.0); Immature Granulocyte Absolute 0.13 K/mm3 (0.00-0.031); Immature Granulocyte Percent A 0.8 % (0-0.5); Lymphocytes Absolute Auto 2.13 K/mm3 (0.9-3.2); Lymphocytes Percent Auto 13.1 % (18.3-44.2); Mean Corpuscular HGB Conc 29.7 g/dl (32-36); Mean Corpuscular Hemoglobin 27.7 pg (26-34); Mean Corpuscular Volume 93.3 fl (80-100); Mean Platelet Volume 9.8 fl (7.4-10.4); Monocytes Percent Auto 6.2 % (2.6-8.5); Neutrophils Absolute Auto 12.6 K/mm3 (1.3-6.7); Neutrophils Percent Auto 77.3 % (45.5-73.1); Platelet Count Result 614 k/mm3 (150-375); Red Blood Count 2.85 M/mm3 (4.6-6.20); Red Cell Distribution Width 17.5 % (11.5-14.5); White Blood Count 16.3 K/mm3 (4.5-10.0)
[2022-09-04 06:00] LABS: Albumin Level 2.5 g/dL (3.5-5.1); Anion Gap 13 mmol/L (8-16); Blood Urea Nitrogen 61 mg/dL (9-20); Calcium 8.7 mg/dL (8.4-10.2); Carbon Dioxide 32 mmol/L (22-30); Chloride 93 mmol/L (98-107); Estimated CRCL calculation 13 ml/min; Estimated Glomerular Filt Rate 13; Glucose 165 mg/dL (65-110); Sodium 138 mmol/L (137-145)
[2022-09-04 06:37] LABS: Anisocytosis 1+ (NORMAL); Hypochromasia 1+ (NORMAL); Platelet Estimate Increased (Adequate); Schistocytes None Seen (NORMAL)
--- NOTE | 2022-09-04 07:58 | PM.PNNEP ---
Progress Note: A&P Assessment and Plan (1) ESRD (end stage renal disease): Code(s): N18.6 - End stage renal disease Status: Chronic Assessment and Plan: the patient is due for dialysis on Monday. (2) Decubitus ulcer of sacral area: Code(s): L89.159 - Pressure ulcer of sacral region, unspecified stage Status: Chronic Assessment and Plan: Getting local wound care. He is on antibiotics. He had a diverting colostomy. I continue to encourage him to roll from side to side To stay off those well. Dr. Diaz's input noted. (3) Anemia: Code(s): D64.9 - Anemia, unspecified Status: Chronic Assessment and Plan: He is getting Epogen. No need for iron because of infection. (4) Hypertension: Code(s): I10 - Essential (primary) hypertension Status: Acute Assessment and Plan: Blood pressure is under good control now. (5) IDDM (insulin dependent diabetes mellitus): Status: Chronic Assessment and Plan: On Accu-Cheks and sliding-scale insulin per hospitalists. Subjective Date/time seen: 09/04/22 07:58 Interval history: Ish is feeling okay. I am getting ready to role on my side eating okay. But he does not like the food. Exam Narrative: WDWN in NAD skin no rashor subcu nodules head ncat lungs clear bilateral cor reg no rub or gallop abd BS+ nontender and soft . Colostomy present on left abdomen with stool present in the bag ext no edema. 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 Left BKA. Objective Data Vital Signs Vital Signs: Vital Signs - 24 hr 09/03/22 08:00 09/03/22 12:00 09/03/22 14:00 Temperature 36.9 C Pulse Rate 92 97 100 Respiratory Rate 16 Blood Pressure 105/51 L Pulse Oximetry 97 Oxygen Delivery 09/03/22 09:10 09/03/22 16:00 09/03/22 20:48 Temperature 36.8 C Pulse Rate 98 98 95 Respiratory Rate 20 Blood Pressure 152/63 H Pulse Oximetry 95 Oxygen Delivery Room Air 09/03/22 20:00 09/04/22 00:00 09/04/22 04:33 Temperature Pulse Rate 99 89 89 Respiratory Rate Blood Pressure Pulse Oximetry Oxygen Delivery 09/04/22 05:51 Temperature 36.7 C Pulse Rate 89 Respiratory Rate 20 Blood Pressure 124/60 Pulse Oximetry 96 Oxygen Delivery Intake/Output Intake/Output: Intake & Output 09/01/22 09/02/22 09/03/22 09/04/22 23:59 23:59 23:59 23:59 Intake Total 3160 992 1290 Output Total 750 1725 450 175 Balance 2410 -733 840 -175 Meds/Results Medications: Active Medications Generic Name Dose Route Start Last Admin Trade Name Freq PRN Reason Stop Dose Admin Acetaminophen 650 mg 08/26/22 08:40 09/03/22 15:23 Acetaminophen 325 Mg Tablet PO 650 mg Q4H PRN Administration Mild Pain (1-3) or Fever Hydrocodone Bitart/Acetaminophen 1 tab 08/26/22 08:38 09/01/22 17:56 Hydrocodone/Acetaminophen (*Crx) 5-325 Mg Tablet PO 1 tab Q6H PRN Administration Pain Rated 4-6 Hydrocodone Bitart/Acetaminophen 1 tab 08/30/22 17:38 09/03/22 17:47 Hydrocodone/Acetaminophen (*Crx) 7.5-325 Mg Tablet PO 1 tab Q6H PRN Administration Pain Rated 7-10 Aspirin 81 mg 09/02/22 09:00 09/03/22 09:08 Aspirin 81 Mg Chewable Tablet PO 81 mg DAILY MARTHA Administration Atorvastatin Calcium 80 mg 09/02/22 09:00 09/03/22 09:09 Atorvastatin 40 Mg Tablet PO 80 mg DAILY MARTHA Administration Cyanocobalamin 1,000 mcg 08/26/22 11:35 09/03/22 09:09 Cyanocobalamin 1,000 Mcg Tablet PO 1,000 mcg DAILY MARTHA Administration Dextrose 12.5 gm 08/25/22 15:27 08/26/22 07:25 Dextrose 50% 25 Gm/50 Ml Syringe IV PUSH 12.5 gm PRN PRN Administration Hypoglycemia Protocol Epoetin Johnnie-epbx 10,000 units 08/31/22 08:00 09/02/22 13:59 Epoetin Johnnie-Epbx 10,000 Units/Ml Vial IV PUSH Not Given MOWEFR [facility] Epoetin Johnnie-epbx 10,000 units 09/02/22 17:00 09/02/22 17:43 Epoetin Johnnie-Ep
--- NOTE | 2022-09-04 08:06 | PM.IMPN ---
Progress Note: A&P Assessment and Plan (1) Decubitus ulcers: Code(s): L89.90 - Pressure ulcer of unspecified site, unspecified stage Status: Chronic Assessment and Plan: Initially presented from home with infected wounds after having gone two weeks without wound care. Vancomycin and zosyn started 08/25/22. 08/25/22 had debridement and washout of stage IV sacral decubitus ulcer, left decubitus ischial ulcer and left hip ulcer. 08/28/22 had bedside debridement of sacral decubitus and distal below the knee stump. 08/30/22 had debridement of skin, subcutaneous tissue and necrotic muscle of the right BKA and laparoscopic creation of end colostomy. Leukocytosis largely unchanged. Diverting seemed to have helped with leukocytosis decreasing yesterday. 08/28 wcx with ESBL Escherichia coli and klebsiella pneumonia. Discussed with ID pharmacist and will attempt treatment with ertapenem for now. Leukocytosis worsened today but this was somewhat expected. Will continue to monitor as patient is on appropriate antibiotics based on culture sensitivities. -Ertapenem 500 mg daily - renally dosed -Wound care consulted - still needs wound vac to be applied (2) DKA (diabetic ketoacidoses): Qualifiers: Diabetes mellitus type: type 1 Diabetes mellitus complication detail: without coma Qualified Code(s): E10.10 - Type 1 diabetes mellitus with ketoacidosis without coma Code(s): E11.10 - Type 2 diabetes mellitus with ketoacidosis without coma Status: Resolved Assessment and Plan: Admitted to the ICU for DKA after initial presentation to the emergency department. This resolved after treatment in the ICU. Resolved. (3) IDDM (insulin dependent diabetes mellitus): Status: Chronic Assessment and Plan: S/p admission to ICU for DKA. BG worsened, which may be due to infection. -Continue glargine 7 units BID -Aspart to 4 units TIDWM -High dose SSI (4) ESRD (end stage renal disease): Code(s): N18.6 - End stage renal disease Status: Chronic Assessment and Plan: ESRD with hemodialysis through a catheter. -Appreciate recommendations from Nephrology (5) Anemia: Code(s): D64.9 - Anemia, unspecified Status: Chronic Assessment and Plan: Likely secondary to his end-stage renal disease. At baseline. -Appreciate recommendations from Nephrology (6) Depression with anxiety: Code(s): F41.8 - Other specified anxiety disorders Status: Acute Assessment and Plan: -continue with sertraline (7) Hypertension: Qualifiers: Hypertension type: unspecified Qualified Code(s): I10 - Essential (primary) hypertension Code(s): I10 - Essential (primary) hypertension Status: Acute Assessment and Plan: BP soft intially, so antihypertensives held. BP normotensive. Will continue to hold BP medications for now. (8) CHF (congestive heart failure): Qualifiers: Heart failure chronicity: unspecified Heart failure type: unspecified Qualified Code(s): I50.9 - Heart failure, unspecified Code(s): I50.9 - Heart failure, unspecified Status: Acute Assessment and Plan: Last echo 03/06/21 w/ EF 55-60% with grade I diastolic dysfunction and severely increased left ventricular wall thickness. HFpEF. Stable. Will monitor. (9) Coronary artery disease: Qualifiers: Coronary Disease-Associated Artery/Lesion type: [place] artery [place] vs. transplanted heart: [place] heart Associated angina: without angina Qualified Code(s): I25.10 - Atherosclerotic heart disease of [place] coronary artery without angina pectoris Code(s): I25.10 - Atherosclerotic heart disease of [place] coronary artery without angina pectoris Status: Acute Assessment and Plan: Takes statin, aspirin, beta graciela and ticagrelor. -Continue
[2022-09-04 08:38] LABS: Glucose Point of Care 171 mg/dl (65-105)
[2022-09-04] MEDS: INSULIN ASPART (*BKC) 100 UNITS/ML SUB-Q ×4 (09:11→17:29)
[2022-09-04] MEDS: INSULIN GLARGINE (*BKC) 100 UNITS/ML 7 UNITS SUB-Q ×2 (09:12→20:12)
[2022-09-04] MEDS: NICOTINE (*PBKC) 21 MG PATCH 1 PATCH TRANSDERM (09:20)
[2022-09-04] MEDS: VITAMIN B CMPLX/VIT C/FOLIC AC 1 CAPSULE 1 CAP PO (09:21)
[2022-09-04] MEDS: CHOLECALCIFEROL 1,000 UNITS TABLET 1000 UNITS PO (09:21)
[2022-09-04] MEDS: CYANOCOBALAMIN 1,000 MCG TABLET 1000 MCG PO (09:21)
[2022-09-04] MEDS: ATORVASTATIN 40 MG TABLET 80 MG PO (09:21)
[2022-09-04] MEDS: ASPIRIN 81 MG CHEWABLE TABLET PO (09:21)
[2022-09-04] MEDS: PANTOPRAZOLE 40 MG TABLET PO ×2 (09:21→20:20)
[2022-09-04] MEDS: GABAPENTIN 300 MG CAPSULE PO (09:21)
[2022-09-04] MEDS: SERTRALINE HCL 50 MG TABLET 100 MG PO (09:21)
[2022-09-04] MEDS: ERTAPENEM SODIUM 0.5 GM in SODIUM CHLORIDE 0.9% IV 50 ML IVPB (09:22)
[2022-09-04] MEDS: TOLNAFTATE 1% POWDER 45 GM BTL 1 APPLIC TOPICAL ×2 (09:23→20:23)
[2022-09-04] MEDS: SOD HYPOCHLORITE 1/4 STRENGTH 473 ML 1 APPLIC TOPICAL ×2 (09:23→20:23)
[2022-09-04] MEDS: SILVERGEL (ELTA) 45 ML 1 APPLIC TOPICAL (09:23)
--- NOTE | 2022-09-04 10:02 | PM.PNGS ---
Progress Note: A&P Assessment and Plan (1) Decubitus ulcer of sacral area: Code(s): L89.159 - Pressure ulcer of sacral region, unspecified stage Status: Chronic Assessment and Plan: continue wound care (2) Status post colostomy: Code(s): Z93.3 - Colostomy status Status: Acute Assessment and Plan: stoma working well. Patient tolerating diabetic diet and eating well. (3) Complication of below knee amputation stump: Code(s): T87.9 - Unspecified complications of amputation stump Status: Chronic Assessment and Plan: May need revision or above knee amputation. Subjective Subjective Date/Time Seen: 09/04/22 10:02 Patient reports: no new complaints, feels better and tolerating a regular diet Exam Const: General: cooperative, comfortable, alert and awake GI: Inspection: non-distended and incision ( Healing well) GI Palp: Yes Soft to palpation, Yes Tenderness to palpation present (GI) and Yes Other GI palpation findings present ( good stoma output) Auscultation: normal bowel sounds Objective Data Vital Signs Vital Signs: Vital Signs - 24 hr 09/03/22 12:00 09/03/22 14:00 09/03/22 16:00 Temperature 36.9 C Pulse Rate 97 100 98 Respiratory Rate 16 Blood Pressure 105/51 L Pulse Oximetry 97 09/03/22 20:48 09/03/22 20:00 09/04/22 00:00 Temperature 36.8 C Pulse Rate 95 99 89 Respiratory Rate 20 Blood Pressure 152/63 H Pulse Oximetry 95 09/04/22 04:33 09/04/22 05:51 Temperature 36.7 C Pulse Rate 89 89 Respiratory Rate 20 Blood Pressure 124/60 Pulse Oximetry 96 Intake/Output Intake/Output: Intake & Output 09/01/22 09/02/22 09/03/22 09/04/22 23:59 23:59 23:59 23:59 Intake Total 3160 992 1290 Output Total 750 3695 450 175 Balance 2310 -993 840 -175 Meds/Results Medications: Active Medications Generic Name Dose Route Start Last Admin Trade Name Freq PRN Reason Stop Dose Admin Acetaminophen 650 mg 08/26/22 08:40 09/03/22 15:23 Acetaminophen 325 Mg Tablet PO 650 mg Q4H PRN Administration Mild Pain (1-3) or Fever Hydrocodone Bitart/Acetaminophen 1 tab 08/26/22 08:38 09/01/22 17:56 Hydrocodone/Acetaminophen (*Crx) 5-325 Mg Tablet PO 1 tab Q6H PRN Administration Pain Rated 4-6 Hydrocodone Bitart/Acetaminophen 1 tab 08/30/22 17:38 09/03/22 17:47 Hydrocodone/Acetaminophen (*Crx) 7.5-325 Mg Tablet PO 1 tab Q6H PRN Administration Pain Rated 7-10 Aspirin 81 mg 09/02/22 09:00 09/04/22 09:21 Aspirin 81 Mg Chewable Tablet PO 81 mg DAILY MARTHA Administration Atorvastatin Calcium 80 mg 09/02/22 09:00 09/04/22 09:21 Atorvastatin 40 Mg Tablet PO 80 mg DAILY MARTHA Administration Cyanocobalamin 1,000 mcg 08/26/22 11:35 09/04/22 09:21 Cyanocobalamin 1,000 Mcg Tablet PO 1,000 mcg DAILY MARTHA Administration Dextrose 12.5 gm 08/25/22 15:27 08/26/22 07:25 Dextrose 50% 25 Gm/50 Ml Syringe IV PUSH 12.5 gm PRN PRN Administration Hypoglycemia Protocol Epoetin Johnnie-epbx 10,000 units 08/31/22 08:00 09/02/22 13:59 Epoetin Johnnie-Epbx 10,000 Units/Ml Vial IV PUSH Not Given [facility]FR [facility] Epoetin Johnnie-epbx 10,000 units 09/02/22 17:00 09/02/22 17:43 Epoetin Johnnie-Epbx 10,000 Units/Ml Vial IV PUSH Not Given [email or web address] [facility] Fentanyl Citrate 25 mcg 08/30/22 11:43 Fentanyl Citrate Inj (*Crx) 100 Mcg/2 Ml Vial IV PUSH Q2M PRN Pain Gabapentin 300 mg 08/26/22 11:35 09/04/22 09:21 Gabapentin 300 Mg Capsule PO 300 mg DAILY MARTHA Administration Glucagon 1 mg 08/25/22 15:27 Glucagon For Inj 1 Mg Vial IM PRN PRN Hypoglycemia Protocol Glucose 15 gm 08/25/22 15:27 Glucose Oral Gel 15 Gm Of Glucse In 37.5 Gm Tube PO PRN PRN Hypoglycemia Protocol Dextrose 1,000 mls @ 100 mls/hr 08/25/22 15:27 Dextrose 5% 1,000 Ml IVPB PRN PRN Hypoglycemia Protocol
[2022-09-04 12:06] LABS: Glucose Point of Care 186 mg/dl (65-105)
[2022-09-04] MEDS: HYDROcodone/acetaminophen (*CRX) 5-325 MG TABLET 1 TAB PO (12:51)
[2022-09-04] MEDS: LORazepam (*CRX) 0.5 MG TABLET PO (12:52)
[2022-09-04 17:17] LABS: Glucose Point of Care 276 mg/dl (65-105)
[2022-09-04] MEDS: TICAGRELOR 60 MG TABLET PO (17:28)
[2022-09-04] MEDS: HYDROcodone/acetaminophen (*CRX) 7.5-325 MG TABLET 1 TAB PO (20:05)
[2022-09-04 20:54] LABS: Glucose Point of Care 221 mg/dl (65-105)
[2022-09-04 20:54] LABS: Glucose Point of Care 228 mg/dl (65-105)
[2022-09-05] VITALS (17 sets, daily range): BP systolic 91–142; BP diastolic 58–81; PULSE 92–111; RESP 16–18; TEMP 36.6–37; O2SAT 95–98
[2022-09-05 06:13] LABS: Basophils Absolute Auto 0.1 K/mm3 (0.0-0.1); Basophils Percent Auto 0.3 % (0.2-1.2); Eosinophils Absolute Auto 0.4 K/mm3 (0-0.3); Eosinophils Percent Auto 2.6 % (0-4.4); Hematocrit 25.5 % (42.0-52.0); Hemoglobin 7.9 g/dL (14.0-18.0); Immature Granulocyte Percent A 0.7 % (0-0.5); Lymphocytes Absolute Auto 1.96 K/mm3 (0.9-3.2); Lymphocytes Percent Auto 13.1 % (18.3-44.2); Mean Corpuscular Hemoglobin 27.7 pg (26-34); Mean Corpuscular Volume 89.5 fl (80-100); Mean Platelet Volume 9.8 fl (7.4-10.4); Monocytes Absolute Auto 0.9 K/mm3 (0.1-0.6); Monocytes Percent Auto 6.3 % (2.6-8.5); Neutrophils Absolute Auto 11.5 K/mm3 (1.3-6.7); Nucleated Red Blood Cells Perc 0.1 % (0.0-0.2); Platelet Count Result 656 k/mm3 (150-375); Red Blood Count 2.85 M/mm3 (4.6-6.20); Red Cell Distribution Width 17.5 % (11.5-14.5)
[2022-09-05 06:32] LABS: Albumin Level 2.4 g/dL (3.5-5.1); Anion Gap 12 mmol/L (8-16); Blood Urea Nitrogen 89 mg/dL (9-20); Calcium 8.3 mg/dL (8.4-10.2); Carbon Dioxide 29 mmol/L (22-30); Chloride 92 mmol/L (98-107); Estimated CRCL calculation 12 ml/min; Estimated Glomerular Filt Rate 12; Glucose 116 mg/dL (65-110); Phosphorus 6.3 mg/dL (2.5-4.5); Potassium 5.5 mmol/L (3.4-5.0); Sodium 133 mmol/L (137-145)
--- NOTE | 2022-09-05 06:57 | PM.PNNEP ---
Progress Note: A&P Assessment and Plan (1) ESRD (end stage renal disease): Code(s): N18.6 - End stage renal disease Status: Chronic Assessment and Plan: the patient is due for dialysis today. volume status looks okay K okay (2) Decubitus ulcer of sacral area: Code(s): L89.159 - Pressure ulcer of sacral region, unspecified stage Status: Chronic Assessment and Plan: Getting local wound care. He is on antibiotics. He had a diverting colostomy. I continue to encourage him to roll from side to side and to allow and nurses to help him turn. We discussed that a wedge behind his back would be comfortable as well. Dr. Diaz's input noted. (3) Anemia: Code(s): D64.9 - Anemia, unspecified Status: Chronic Assessment and Plan: Hemoglobin somewhat resistant to improving. Most likely this is because of the wounds. He is getting Epogen. No need for iron because of infection. (4) Hypertension: Code(s): I10 - Essential (primary) hypertension Status: Acute Assessment and Plan: Blood pressure is under good control currently (5) IDDM (insulin dependent diabetes mellitus): Status: Chronic Assessment and Plan: On Accu-Cheks and sliding-scale insulin per hospitalists. Subjective Date/time seen: 09/05/22 06:57 Interval history: Ish is feeling okay. He slept well. He is refusing help to be turned. he has not been turning himself either. He is always flat on his back when I see him as well. Exam Narrative: WDWN in NAD skin no rashor subcu nodules head ncat lungs clear bilaterally cor reg no rub or gallop abd BS+ nontender and soft . Colostomy present on left abdomen with stool present in the bag ext no edema. 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 Left BKA. Objective Data Vital Signs Vital Signs: Vital Signs - 24 hr 09/04/22 09:20 09/04/22 15:27 09/04/22 08:00 Temperature 37.1 C Pulse Rate 100 100 93 Respiratory Rate 20 12 Blood Pressure 126/63 Pulse Oximetry 96 96 Oxygen Delivery Room Air 09/04/22 12:00 09/04/22 16:00 09/04/22 21:13 Temperature 36.8 C Pulse Rate 96 97 100 Respiratory Rate 16 Blood Pressure 148/77 H Pulse Oximetry 98 Oxygen Delivery 09/04/22 20:00 09/05/22 00:00 09/05/22 04:00 Temperature Pulse Rate 101 H 97 92 Respiratory Rate Blood Pressure Pulse Oximetry Oxygen Delivery Intake/Output Intake/Output: Intake & Output 09/02/22 09/03/22 09/04/22 09/05/22 23:59 23:59 23:59 23:59 Intake Total 992 1290 340 Output Total 1725 450 175 Balance -733 840 165 Meds/Results Medications: Active Medications Generic Name Dose Route Start Last Admin Trade Name Freq PRN Reason Stop Dose Admin Acetaminophen 650 mg 08/26/22 08:40 09/03/22 15:23 Acetaminophen 325 Mg Tablet PO 650 mg Q4H PRN Administration Mild Pain (1-3) or Fever Hydrocodone Bitart/Acetaminophen 1 tab 08/26/22 08:38 09/04/22 12:51 Hydrocodone/Acetaminophen (*Crx) 5-325 Mg Tablet PO 1 tab Q6H PRN Administration Pain Rated 4-6 Hydrocodone Bitart/Acetaminophen 1 tab 08/30/22 17:38 09/04/22 20:05 Hydrocodone/Acetaminophen (*Crx) 7.5-325 Mg Tablet PO 1 tab Q6H PRN Administration Pain Rated 7-10 Aspirin 81 mg 09/02/22 09:00 09/04/22 09:21 Aspirin 81 Mg Chewable Tablet PO 81 mg DAILY MARTHA Administration Atorvastatin Calcium 80 mg 09/02/22 09:00 09/04/22 09:21 Atorvastatin 40 Mg Tablet PO 80 mg DAILY MARTHA Administration Cyanocobalamin 1,000 mcg 08/26/22 11:35 09/04/22 09:21 Cyanocobalamin 1,000 Mcg Tablet PO 1,000 mcg DAILY MARTHA Administration Dextrose 12.5 gm 08/25/22 15:27 08/26/22 07:25 Dextrose 50% 25 Gm/50 Ml Syringe IV PUSH 12.5 gm PRN PRN Administration Hypoglycemia Protocol Epoetin Jhonnie-epbx 10,000 units 08/31/22 08:00 09/02/22 13:59 Epoetin
[2022-09-05 08:22] LABS: Glucose Point of Care 123 mg/dl (65-105)
[2022-09-05] MEDS: LORazepam (*CRX) 0.5 MG TABLET PO (08:27)
--- NOTE | 2022-09-05 09:03 | PM.IMPN ---
Progress Note: A&P Assessment and Plan (1) Decubitus ulcers: Code(s): L89.90 - Pressure ulcer of unspecified site, unspecified stage Status: Chronic Assessment and Plan: Initially presented from home with infected wounds after having gone two weeks without wound care. Vancomycin and zosyn started 08/25/22. 08/25/22 had debridement and washout of stage IV sacral decubitus ulcer, left decubitus ischial ulcer and left hip ulcer. 08/28/22 had bedside debridement of sacral decubitus and distal below the knee stump. 08/30/22 had debridement of skin, subcutaneous tissue and necrotic muscle of the right BKA and laparoscopic creation of end colostomy. Leukocytosis largely unchanged. Diverting seemed to have helped with leukocytosis decreasing yesterday. 08/28 wcx with ESBL Escherichia coli and klebsiella pneumonia. Discussed with ID pharmacist and will attempt treatment with ertapenem for now. Leukocytosis downtrending. -Ertapenem 500 mg daily - renally dosed -Will need care for his wounds at the facility once it is appropriate for him to return (2) DKA (diabetic ketoacidoses): Qualifiers: Diabetes mellitus type: type 1 Diabetes mellitus complication detail: without coma Qualified Code(s): E10.10 - Type 1 diabetes mellitus with ketoacidosis without coma Code(s): E11.10 - Type 2 diabetes mellitus with ketoacidosis without coma Status: Resolved Assessment and Plan: Admitted to the ICU for DKA after initial presentation to the emergency department. This resolved after treatment in the ICU. Resolved. (3) IDDM (insulin dependent diabetes mellitus): Status: Chronic Assessment and Plan: S/p admission to ICU for DKA. BG worsened, which may be due to infection. Glucose control improved. -Continue glargine 7 units BID -Increased Aspart to 5 units TIDWM -High dose SSI (4) ESRD (end stage renal disease): Code(s): N18.6 - End stage renal disease Status: Chronic Assessment and Plan: ESRD with hemodialysis through a catheter. -Appreciate recommendations from Nephrology (5) Anemia: Code(s): D64.9 - Anemia, unspecified Status: Chronic Assessment and Plan: Likely secondary to his end-stage renal disease. At baseline. -Appreciate recommendations from Nephrology -Epoetin (6) Depression with anxiety: Code(s): F41.8 - Other specified anxiety disorders Status: Acute Assessment and Plan: -continue with sertraline (7) Hypertension: Qualifiers: Hypertension type: unspecified Qualified Code(s): I10 - Essential (primary) hypertension Code(s): I10 - Essential (primary) hypertension Status: Acute Assessment and Plan: BP soft initially, so antihypertensives held. Now BP has improved. Appreciate recommendations from Nephrology. (8) CHF (congestive heart failure): Qualifiers: Heart failure chronicity: unspecified Heart failure type: unspecified Qualified Code(s): I50.9 - Heart failure, unspecified Code(s): I50.9 - Heart failure, unspecified Status: Acute Assessment and Plan: Last echo 03/06/21 w/ EF 55-60% with grade I diastolic dysfunction and severely increased left ventricular wall thickness. HFpEF. Stable. Will monitor. (9) Coronary artery disease: Qualifiers: Coronary Disease-Associated Artery/Lesion type: [place] artery [place] vs. transplanted heart: [place] heart Associated angina: without angina Qualified Code(s): I25.10 - Atherosclerotic heart disease of [place] coronary artery without angina pectoris Code(s): I25.10 - Atherosclerotic heart disease of [place] coronary artery without angina pectoris Status: Acute Assessment and Plan: Takes statin, aspirin, beta graciela and ticagrelor. Carvedilol being held. -Continue statin -Continue aspirin
[2022-09-05] MEDS: HEPARIN SODIUM 1,000 UNITS/ML VIAL 1000 UNITS IV PUSH (10:24)
[2022-09-05] MEDS: SODIUM CHLORIDE 0.9% IV 1,000 ML 999 ML IV CONT (10:24)
[2022-09-05] MEDS: EPOETIN ALFA-EPBX 20,000 UNITS/ML VIAL 20000 UNITS IV PUSH (10:24)
[2022-09-05] MEDS: HEPARIN SODIUM 1,000 UNITS/ML VIAL 500 UNITS IV PUSH ×4 (12:19→12:20)
[2022-09-05 12:42] LABS: Glucose Point of Care 151 mg/dl (65-105)
[2022-09-05] MEDS: NICOTINE (*PBKC) 21 MG PATCH 1 PATCH TRANSDERM (12:54)
[2022-09-05] MEDS: ASPIRIN 81 MG CHEWABLE TABLET PO (12:54)
[2022-09-05] MEDS: CHOLECALCIFEROL 1,000 UNITS TABLET 1000 UNITS PO (12:54)
[2022-09-05] MEDS: ATORVASTATIN 40 MG TABLET 80 MG PO (12:55)
[2022-09-05] MEDS: CYANOCOBALAMIN 1,000 MCG TABLET 1000 MCG PO (12:55)
[2022-09-05] MEDS: PANTOPRAZOLE 40 MG TABLET PO ×2 (12:55→20:39)
[2022-09-05] MEDS: SERTRALINE HCL 50 MG TABLET 100 MG PO (12:55)
[2022-09-05] MEDS: GABAPENTIN 300 MG CAPSULE PO (12:56)
[2022-09-05] MEDS: VITAMIN B COMPLEX CAPSULE 1 CAP PO (12:56)
[2022-09-05] MEDS: TICAGRELOR 60 MG TABLET PO ×2 (12:56→16:04)
[2022-09-05] MEDS: VITAMIN B CMPLX/VIT C/FOLIC AC 1 CAPSULE 1 CAP PO (12:56)
[2022-09-05] MEDS: ERTAPENEM SODIUM 0.5 GM in SODIUM CHLORIDE 0.9% IV 50 ML IVPB (12:56)
[2022-09-05] MEDS: INSULIN ASPART (*BKC) 100 UNITS/ML SUB-Q ×2 (13:03→18:01)
[2022-09-05] MEDS: INSULIN GLARGINE (*BKC) 100 UNITS/ML 7 UNITS SUB-Q ×2 (13:04→20:42)
--- NOTE | 2022-09-05 14:25 | PM.PNGS ---
Progress Note: A&P Assessment and Plan (1) Decubitus ulcer of sacral area: Code(s): L89.159 - Pressure ulcer of sacral region, unspecified stage Status: Chronic Assessment and Plan: Continue local wound care with Dakin's soaked gauze dressing changes to his sacral ulcer, ischial ulcers, right BKA stump wound, and left hip ulcer. Patient refusing wound vac therapy. Okay from our standpoint to discharge the patient back to the intermediate when okay with the primary service. He can follow the wound care at the intermediate. F/u with vascular surgery. (2) Status post colostomy: Code(s): Z93.3 - Colostomy status Status: Acute Assessment and Plan: Diverting colostomy functioning well. Tolerating his diet. (3) Complication of below knee amputation stump: Code(s): T87.9 - Unspecified complications of amputation stump Status: Chronic Assessment and Plan: He needs to follow-up with vascular surgery after discharge to re-evaluate his BKA for a revision or AKA. They will also evaluate any need for further imaging with his PAD. Plan I have discussed the patient's case and plan of care with Dr. Hercules. Subjective Subjective Date/Time Seen: 09/05/22 14:25 Patient reports: no new complaints and afebrile Interval history: Patient had dialysis this morning. He has no specific complaints at this time. He is still refusing wound vac therapy. Review of Systems Review of Systems: All systems reviewed & are unremarkable except as noted in HPI and below Exam Const: General: comfortable, no acute distress, awake and ill appearing GI: Inspection: non-distended, incision ( Healing well) and other (Air and stool in colostomy bag, functioning well) GI Palp: Yes Soft to palpation and No Tenderness to palpation present (GI) Auscultation: normal bowel sounds Skin: Other: Right AKA stump s/p debridement with about 70% of the open stump now with black eschar and the anterior aspect of the wound with bone exposed and some yellow tissue and small area of pink granulation tissue visible. Left hip ulcer about 75% chun/yellow slough and 25% some pink tissue, no purulent drainage. Sacral decubitus ulcer with about 70% yellow and chun slough and about 30% pink healthier tissue, no purulent drainage Larger ischial ulcer with yellow slough in nearly the entire wound bed, no purulent drainage Extrem: General: amputation noted Below the knee: right and Above the knee: left Right lower extremity: no edema Left lower extremity: no edema Psych: Insight: Fair insight present (Psych) Judgement: Poor judgement present (Psych) Objective Data Vital Signs Vital Signs: Vital Signs - 24 hr 09/04/22 15:27 09/04/22 16:00 09/04/22 21:13 Temperature 98.7 F 98.2 F Pulse Rate 100 97 100 Respiratory Rate 12 16 Blood Pressure 126/63 148/77 H Pulse Oximetry 96 98 09/04/22 20:00 09/05/22 00:00 09/05/22 04:00 Temperature Pulse Rate 101 H 97 92 Respiratory Rate Blood Pressure Pulse Oximetry 09/05/22 08:30 09/05/22 08:40 09/05/22 09:00 Temperature 97.8 F Pulse Rate 104 H 102 H 102 H Respiratory Rate 18 Blood Pressure 139/79 142/81 H 114/71 Pulse Oximetry 09/05/22 09:30 09/05/22 10:00 09/05/22 10:30 Temperature Pulse Rate 111 H 104 H 102 H Respiratory Rate Blood Pressure 91/58 L 121/68 110/69 Pulse Oximetry 09/05/22 11:00 09/05/22 11:30 09/05/22 11:58 Temperature Pulse Rate 105 H 108 H 104 H Respiratory Rate Blood Pressure 116/67 110/66 111/62 Pulse Oximetry 09/05/22 12:12 Temperature 98 F Pulse Rate 104 H Respiratory Rate 16 Blood Pressure 135/64 Pulse Oximetry Intake/Output Intake/Output: Intake & Output 09/02/22 09/03/22 09/04/22 09/05/22 23:59 23:59 23:59 23:59 Intake Total 992 1290 390 0 Output Total 1725 713 356 5420 Balance -733 840 919 -1872 Meds/Results Medications: Active Medications Generic Name
[2022-09-05] MEDS: HYDROcodone/acetaminophen (*CRX) 7.5-325 MG TABLET 1 TAB PO (16:04)
[2022-09-05 17:32] LABS: Glucose Point of Care 146 mg/dl (65-105)
[2022-09-05] MEDS: SOD HYPOCHLORITE 1/4 STRENGTH 473 ML 1 APPLIC TOPICAL ×2 (17:59→20:41)
[2022-09-05] MEDS: TOLNAFTATE 1% POWDER 45 GM BTL 1 APPLIC TOPICAL ×2 (18:00→20:40)
[2022-09-05] MEDS: SILVERGEL (ELTA) 45 ML 1 APPLIC TOPICAL (18:00)
[2022-09-05 20:35] LABS: Glucose Point of Care 216 mg/dl (65-105)
[2022-09-06] VITALS (10 sets, daily range): BP systolic 96–138; BP diastolic 46–86; PULSE 100–108; RESP 16–18; TEMP 36.1–36.9; O2SAT 95–96
[2022-09-06 07:34] LABS: Glucose Point of Care 186 mg/dl (65-105)
[2022-09-06 07:41] LABS: Basophils Absolute Auto 0.1 K/mm3 (0.0-0.1); Basophils Percent Auto 0.5 % (0.2-1.2); Eosinophils Absolute Auto 0.2 K/mm3 (0-0.3); Hematocrit 26.7 % (42.0-52.0); Immature Granulocyte Absolute 0.14 K/mm3 (0.00-0.031); Immature Granulocyte Percent A 0.8 % (0-0.5); Lymphocytes Absolute Auto 1.88 K/mm3 (0.9-3.2); Lymphocytes Percent Auto 10.2 % (18.3-44.2); Mean Corpuscular Volume 90.2 fl (80-100); Mean Platelet Volume 9.8 fl (7.4-10.4); Monocytes Absolute Auto 1.2 K/mm3 (0.1-0.6); Monocytes Percent Auto 6.4 % (2.6-8.5); Neutrophils Absolute Auto 14.9 K/mm3 (1.3-6.7); Neutrophils Percent Auto 81.1 % (45.5-73.1); Platelet Count Result 751 k/mm3 (150-375); Red Blood Count 2.96 M/mm3 (4.6-6.20); Red Cell Distribution Width 18.4 % (11.5-14.5); White Blood Count 18.4 K/mm3 (4.5-10.0)
[2022-09-06 07:49] LABS: Albumin Level 2.5 g/dL (3.5-5.1); Anion Gap 10 mmol/L (8-16); Blood Urea Nitrogen 56 mg/dL (9-20); Calcium 8.3 mg/dL (8.4-10.2); Carbon Dioxide 32 mmol/L (22-30); Chloride 94 mmol/L (98-107); Estimated CRCL calculation 14 ml/min; Estimated Glomerular Filt Rate 16; Glucose 185 mg/dL (65-110); Phosphorus 5.8 mg/dL (2.5-4.5); Potassium 4.7 mmol/L (3.4-5.0); Sodium 136 mmol/L (137-145)
--- NOTE | 2022-09-06 08:31 | PM.IMPN ---
Progress Note: A&P Assessment and Plan (1) Decubitus ulcers: Code(s): L89.90 - Pressure ulcer of unspecified site, unspecified stage Status: Chronic Assessment and Plan: Initially presented from home with infected wounds after having gone two weeks without wound care. Vancomycin and zosyn started 08/25/22. 08/25/22 had debridement and washout of stage IV sacral decubitus ulcer, left decubitus ischial ulcer and left hip ulcer. 08/28/22 had bedside debridement of sacral decubitus and distal below the knee stump. 08/30/22 had debridement of skin, subcutaneous tissue and necrotic muscle of the right BKA and laparoscopic creation of end colostomy. Leukocytosis largely unchanged. Diverting seemed to have helped with leukocytosis decreasing yesterday. 08/28 wcx with ESBL Escherichia coli and klebsiella pneumonia. Discussed with ID pharmacist and will attempt treatment with ertapenem for now. Leukocytosis elevated but significant reactive thrombocytosis also. -Ertapenem 500 mg daily - renally dosed -Will need care for his wounds at the facility once it is appropriate for him to return -MRI pelvis to rule out osteomyelitis in sacral wound (2) DKA (diabetic ketoacidoses): Qualifiers: Diabetes mellitus type: type 1 Diabetes mellitus complication detail: without coma Qualified Code(s): E10.10 - Type 1 diabetes mellitus with ketoacidosis without coma Code(s): E11.10 - Type 2 diabetes mellitus with ketoacidosis without coma Status: Resolved Assessment and Plan: Admitted to the ICU for DKA after initial presentation to the emergency department. This resolved after treatment in the ICU. Resolved. (3) IDDM (insulin dependent diabetes mellitus): Status: Chronic Assessment and Plan: S/p admission to ICU for DKA. BG worsened, which may be due to infection. Glucose control improved. -Continue glargine 7 units BID -Increased Aspart to 5 units TIDWM -High dose SSI (4) ESRD (end stage renal disease): Code(s): N18.6 - End stage renal disease Status: Chronic Assessment and Plan: ESRD with hemodialysis through a catheter. -Appreciate recommendations from Nephrology (5) Anemia: Code(s): D64.9 - Anemia, unspecified Status: Chronic Assessment and Plan: Likely secondary to his end-stage renal disease. At baseline. -Appreciate recommendations from Nephrology -Epoetin (6) Depression with anxiety: Code(s): F41.8 - Other specified anxiety disorders Status: Acute Assessment and Plan: -continue with sertraline (7) Hypertension: Qualifiers: Hypertension type: unspecified Qualified Code(s): I10 - Essential (primary) hypertension Code(s): I10 - Essential (primary) hypertension Status: Acute Assessment and Plan: BP soft initially, so antihypertensives held. Now BP has improved. Appreciate recommendations from Nephrology. (8) CHF (congestive heart failure): Qualifiers: Heart failure chronicity: unspecified Heart failure type: unspecified Qualified Code(s): I50.9 - Heart failure, unspecified Code(s): I50.9 - Heart failure, unspecified Status: Acute Assessment and Plan: Last echo 03/06/21 w/ EF 55-60% with grade I diastolic dysfunction and severely increased left ventricular wall thickness. HFpEF. Stable. Will monitor. (9) Coronary artery disease: Qualifiers: Coronary Disease-Associated Artery/Lesion type: [place] artery [place] vs. transplanted heart: [place] heart Associated angina: without angina Qualified Code(s): I25.10 - Atherosclerotic heart disease of [place] coronary artery without angina pectoris Code(s): I25.10 - Atherosclerotic heart disease of [place] coronary artery without angina pectoris Status: Acute Assessment and Plan: Takes statin, aspiri
[2022-09-06 09:01] LABS: Glucose Point of Care 242 mg/dl (65-105)
[2022-09-06] MEDS: INSULIN ASPART (*BKC) 100 UNITS/ML SUB-Q ×5 (09:19→17:44)
[2022-09-06] MEDS: INSULIN GLARGINE (*BKC) 100 UNITS/ML 8 UNITS SUB-Q ×2 (09:22→20:58)
[2022-09-06] MEDS: ERTAPENEM SODIUM 0.5 GM in SODIUM CHLORIDE 0.9% IV 50 ML IVPB (09:26)
[2022-09-06] MEDS: SERTRALINE HCL 50 MG TABLET 100 MG PO (09:27)
[2022-09-06] MEDS: ASPIRIN 81 MG CHEWABLE TABLET PO (09:28)
[2022-09-06] MEDS: GABAPENTIN 300 MG CAPSULE PO (09:28)
[2022-09-06] MEDS: PANTOPRAZOLE 40 MG TABLET PO ×2 (09:28→20:53)
[2022-09-06] MEDS: NICOTINE (*PBKC) 21 MG PATCH 1 PATCH TRANSDERM (09:28)
[2022-09-06] MEDS: VITAMIN B COMPLEX CAPSULE 1 CAP PO (09:28)
[2022-09-06] MEDS: ATORVASTATIN 40 MG TABLET 80 MG PO (09:28)
[2022-09-06] MEDS: TICAGRELOR 60 MG TABLET PO ×2 (09:28→17:43)
[2022-09-06] MEDS: CHOLECALCIFEROL 1,000 UNITS TABLET 1000 UNITS PO (09:28)
[2022-09-06] MEDS: CYANOCOBALAMIN 1,000 MCG TABLET 1000 MCG PO (09:28)
[2022-09-06] MEDS: VITAMIN B CMPLX/VIT C/FOLIC AC 1 CAPSULE 1 CAP PO (09:29)
--- NOTE | 2022-09-06 10:12 | PCNFU ---
Nutrition Follow-Up Complete: Increased protein energy needs related to wound healing as evidenced by wound report. Goal:Adequate PO intake at least 75% meals Tolerate supplements. Pt is meeting goal. Continue with same goals. Pt current nutrition is Diabetic consistent carb. Nepro shakes and MADELYN BID. Nutrition recommendation: Continue with current plan of care. Last recorded weight is 52.7 kg - stable. Bowel Motility: None recorded at this time Labs Reviewed: Hgb:8.0, HCT:26.7, Alb:2.5, NA:136, BUN:56, Cr:4.0, Glu:242 Meds Noted: Novolog, lantus Skin: multiple areas of significant pressure ulcers Additional Notes: Pt continues on a diabetic consistent carb diet. Intake 75-100% plus outside food from family. Pt continues on supplements as recommended. Monitor intakes, weights, skin, labs, discharge planning. Follow up in 7 days
[2022-09-06 12:13] LABS: Glucose Point of Care 216 mg/dl (65-105)
[2022-09-06] MEDS: HYDROcodone/acetaminophen (*CRX) 7.5-325 MG TABLET 1 TAB PO ×2 (12:32→20:56)
[2022-09-06] MEDS: SILVERGEL (ELTA) 45 ML 1 APPLIC TOPICAL (14:02)
[2022-09-06] MEDS: SOD HYPOCHLORITE 1/4 STRENGTH 473 ML 1 APPLIC TOPICAL ×2 (14:02→20:52)
[2022-09-06] MEDS: TOLNAFTATE 1% POWDER 45 GM BTL 1 APPLIC TOPICAL ×2 (14:03→20:52)
--- NOTE | 2022-09-06 16:02 | PM.PNNEP ---
Progress Note: A&P Assessment and Plan (1) ESRD (end stage renal disease): Code(s): N18.6 - End stage renal disease Status: Chronic Assessment and Plan: the patient is due for dialysis tomorrow. Yesterday's dialysis went well. (2) Decubitus ulcer of sacral area: Code(s): L89.159 - Pressure ulcer of sacral region, unspecified stage Status: Chronic Assessment and Plan: Getting local wound care. He is on antibiotics. He had a diverting colostomy. I continue to encourage him to roll from side to side . Dr. Diaz's input noted. (3) Anemia: Code(s): D64.9 - Anemia, unspecified Status: Chronic Assessment and Plan: Hemoglobin somewhat resistant to improving. Most likely this is because of the wounds. He is getting Epogen. No need for iron because of infection. (4) Hypertension: Code(s): I10 - Essential (primary) hypertension Status: Acute Assessment and Plan: Blood pressure is under good control currently (5) IDDM (insulin dependent diabetes mellitus): Status: Chronic Assessment and Plan: On Accu-Cheks and sliding-scale insulin per hospitalists. Subjective Date/time seen: 09/06/22 16:02 Interval history: Mrs Corley is in the room. Ish is feeling okay. He slept well. I encouraged him once again to turn frequently to protect his wounds. Exam Narrative: WDWN in NAD skin no rashor subcu nodules head ncat lungs clear to auscultation cor reg no rub or gallop abd BS+ nontender and soft . Colostomy present on left abdomen with stool present in the bag ext no edema. 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 Left BKA. Objective Data Vital Signs Vital Signs: Vital Signs - 24 hr 09/05/22 20:00 09/05/22 20:50 09/05/22 20:00 Temperature 36.9 C Pulse Rate 110 H 110 H 110 H Respiratory Rate 16 16 Blood Pressure 126/60 Pulse Oximetry 95 95 Oxygen Delivery Room Air 09/06/22 00:00 09/06/22 04:00 09/06/22 06:00 Temperature 36.6 C Pulse Rate 107 H 104 H 108 H Respiratory Rate 16 Blood Pressure 124/58 L Pulse Oximetry 95 Oxygen Delivery 09/06/22 14:00 09/06/22 09:30 Temperature 36.1 C L Pulse Rate 108 H 102 H Respiratory Rate 18 Blood Pressure 96/46 L Pulse Oximetry 96 Oxygen Delivery Room Air Intake/Output Intake/Output: Intake & Output 09/03/22 09/04/22 09/05/22 09/06/22 23:59 23:59 23:59 23:59 Intake Total 1290 390 530 222 Output Total 263 055 0418 0 Balance 840 215 -1967 222 Meds/Results Medications: Active Medications Generic Name Dose Route Start Last Admin Trade Name Freq PRN Reason Stop Dose Admin Acetaminophen 650 mg 08/26/22 08:40 09/03/22 15:23 Acetaminophen 325 Mg Tablet PO 650 mg Q4H PRN Administration Mild Pain (1-3) or Fever Hydrocodone Bitart/Acetaminophen 1 tab 08/30/22 17:38 09/06/22 12:32 Hydrocodone/Acetaminophen (*Crx) 7.5-325 Mg Tablet PO 1 tab Q6H PRN Administration Pain Rated 7-10 Aspirin 81 mg 09/02/22 09:00 09/06/22 09:28 Aspirin 81 Mg Chewable Tablet PO 81 mg DAILY MARTHA Administration Atorvastatin Calcium 80 mg 09/02/22 09:00 09/06/22 09:28 Atorvastatin 40 Mg Tablet PO 80 mg DAILY MARTHA Administration Cyanocobalamin 1,000 mcg 08/26/22 11:35 09/06/22 09:28 Cyanocobalamin 1,000 Mcg Tablet PO 1,000 mcg DAILY MARTHA Administration Dextrose 12.5 gm 08/25/22 15:27 08/26/22 07:25 Dextrose 50% 25 Gm/50 Ml Syringe IV PUSH 12.5 gm PRN PRN Administration Hypoglycemia Protocol Epoetin Johnnie-epbx 20,000 units 09/05/22 07:01 09/05/22 10:24 Epoetin Johnnie-Epbx 20,000 Units/Ml Vial IV PUSH 20,000 units MOWEFR MARTHA Administration Fentanyl Citrate 25 mcg 08/30/22 11:43 Fentanyl Citrate Inj (*Crx) 100 Mcg/2 Ml Vial IV PUSH Q2M PRN Pain Gabapentin 300 mg 08/26/22 11:35 09/06/22 09:28 Gabapentin 300 Mg Cap
[2022-09-06 17:16] LABS: Glucose Point of Care 196 mg/dl (65-105)
[2022-09-06 21:25] LABS: Glucose Point of Care 170 mg/dl (65-105)
[2022-09-07] VITALS (14 sets, daily range): BP systolic 89–154; BP diastolic 52–80; PULSE 90–106; RESP 12–18; TEMP 36–37.3; O2SAT 95–96
[2022-09-07 06:17] LABS: Basophils Absolute Auto 0.1 K/mm3 (0.0-0.1); Basophils Percent Auto 0.5 % (0.2-1.2); Eosinophils Absolute Auto 0.3 K/mm3 (0-0.3); Eosinophils Percent Auto 1.8 % (0-4.4); Hematocrit 28.3 % (42.0-52.0); Hemoglobin 8.4 g/dL (14.0-18.0); Immature Granulocyte Absolute 0.13 K/mm3 (0.00-0.031); Immature Granulocyte Percent A 0.7 % (0-0.5); Lymphocytes Absolute Auto 1.95 K/mm3 (0.9-3.2); Lymphocytes Percent Auto 11.1 % (18.3-44.2); Mean Corpuscular HGB Conc 29.7 g/dl (32-36); Mean Corpuscular Hemoglobin 27.5 pg (26-34); Mean Corpuscular Volume 92.8 fl (80-100); Mean Platelet Volume 9.7 fl (7.4-10.4); Monocytes Percent Auto 5.9 % (2.6-8.5); Platelet Count Result 782 k/mm3 (150-375); Red Blood Count 3.05 M/mm3 (4.6-6.20); Red Cell Distribution Width 18.2 % (11.5-14.5); White Blood Count 17.5 K/mm3 (4.5-10.0)
[2022-09-07 06:38] LABS: Albumin Level 2.5 g/dL (3.5-5.1); Anion Gap 12 mmol/L (8-16); Blood Urea Nitrogen 68 mg/dL (9-20); Calcium 8.7 mg/dL (8.4-10.2); Carbon Dioxide 32 mmol/L (22-30); Chloride 93 mmol/L (98-107); Estimated CRCL calculation 11 ml/min; Estimated Glomerular Filt Rate 12; Glucose 54 mg/dL (65-110); Phosphorus 7.3 mg/dL (2.5-4.5); Potassium 4.7 mmol/L (3.4-5.0); Sodium 137 mmol/L (137-145)
--- NOTE | 2022-09-07 06:42 | PM.PNNEP ---
Progress Note: A&P Assessment and Plan (1) ESRD (end stage renal disease): Code(s): N18.6 - End stage renal disease Status: Chronic Assessment and Plan: the patient is due for dialysis today. Orders have been written Yesterday's dialysis went well. (2) Decubitus ulcer of sacral area: Code(s): L89.159 - Pressure ulcer of sacral region, unspecified stage Status: Chronic Assessment and Plan: Getting local wound care. He is on antibiotics. He had a diverting colostomy. he is eating fairly well. (3) Anemia: Code(s): D64.9 - Anemia, unspecified Status: Chronic Assessment and Plan: Hemoglobin somewhat resistant to improving. Most likely this is because of the wounds. He is getting Epogen. No need for iron because of infection. (4) Hypertension: Code(s): I10 - Essential (primary) hypertension Status: Acute Assessment and Plan: Blood pressure is under good control currently (5) IDDM (insulin dependent diabetes mellitus): Status: Chronic Assessment and Plan: On Accu-Cheks and sliding-scale insulin per hospitalists. Subjective Date/time seen: 09/07/22 06:42 Interval history: Patient feels okay today. Comfortable lying in bed. He is actually now lying on his left side. Exam Narrative: WDWN in NAD skin no rashor subcu nodules head ncat lungs clear cor reg no rub or gallop abd BS+ nontender and soft . Colostomy present on left abdomen ext no edema. 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 Left BKA. Objective Data Vital Signs Vital Signs: Vital Signs - 24 hr 09/06/22 14:00 09/06/22 09:30 09/06/22 08:00 Temperature 36.1 C L Pulse Rate 108 H 102 H 104 H Respiratory Rate 18 Blood Pressure 96/46 L Pulse Oximetry 96 Oxygen Delivery Room Air 09/06/22 12:00 09/06/22 16:00 09/06/22 20:00 Temperature Pulse Rate 100 108 H 103 H Respiratory Rate Blood Pressure Pulse Oximetry Oxygen Delivery 09/06/22 20:00 09/06/22 22:00 09/07/22 00:00 Temperature 36.9 C Pulse Rate 103 H 102 H 90 Respiratory Rate 18 16 Blood Pressure 138/86 Pulse Oximetry 96 95 Oxygen Delivery Room Air 09/07/22 04:00 09/07/22 06:00 Temperature 36.9 C Pulse Rate 92 99 Respiratory Rate 16 Blood Pressure 140/80 Pulse Oximetry 95 Oxygen Delivery Intake/Output Intake/Output: Intake & Output 09/04/22 09/05/22 09/06/22 09/07/22 23:59 23:59 23:59 23:59 Intake Total 367 547 2959 Output Total 175 2497 800 0 Balance 215 -1967 586 0 Meds/Results Medications: Active Medications Generic Name Dose Route Start Last Admin Trade Name Freq PRN Reason Stop Dose Admin Acetaminophen 650 mg 08/26/22 08:40 09/03/22 15:23 Acetaminophen 325 Mg Tablet PO 650 mg Q4H PRN Administration Mild Pain (1-3) or Fever Hydrocodone Bitart/Acetaminophen 1 tab 08/30/22 17:38 09/06/22 20:56 Hydrocodone/Acetaminophen (*Crx) 7.5-325 Mg Tablet PO 1 tab Q6H PRN Administration Pain Rated 7-10 Aspirin 81 mg 09/02/22 09:00 09/06/22 09:28 Aspirin 81 Mg Chewable Tablet PO 81 mg DAILY MARTHA Administration Atorvastatin Calcium 80 mg 09/02/22 09:00 09/06/22 09:28 Atorvastatin 40 Mg Tablet PO 80 mg DAILY MARTHA Administration Cyanocobalamin 1,000 mcg 08/26/22 11:35 09/06/22 09:28 Cyanocobalamin 1,000 Mcg Tablet PO 1,000 mcg DAILY MARTHA Administration Dextrose 12.5 gm 08/25/22 15:27 08/26/22 07:25 Dextrose 50% 25 Gm/50 Ml Syringe IV PUSH 12.5 gm PRN PRN Administration Hypoglycemia Protocol Epoetin Johnnie-epbx 20,000 units 09/05/22 07:01 09/05/22 10:24 Epoetin Johnnie-Epbx 20,000 Units/Ml Vial IV PUSH 20,000 units MOWEFR MARTHA Administration Fentanyl Citrate 25 mcg 08/30/22 11:43 Fentanyl Citrate Inj (*Crx) 100 Mcg/2 Ml Vial IV PUSH Q2M PRN Pain Gabapentin 300 mg 08/26/22 11:35 09/06/22
[2022-09-07 06:50] LABS: CRP 18.5 mg/dL (<1.0)
[2022-09-07 07:25] LABS: Erythrocyte Sedimentation Rate > 140 mm/hr (0-20)
[2022-09-07] MEDS: TICAGRELOR 60 MG TABLET PO ×2 (08:11→17:49)
[2022-09-07] MEDS: CHOLECALCIFEROL 1,000 UNITS TABLET 1000 UNITS PO (08:11)
[2022-09-07] MEDS: CYANOCOBALAMIN 1,000 MCG TABLET 1000 MCG PO (08:11)
[2022-09-07] MEDS: VITAMIN B COMPLEX CAPSULE 1 CAP PO (08:11)
[2022-09-07] MEDS: GABAPENTIN 300 MG CAPSULE PO (08:11)
[2022-09-07] MEDS: SERTRALINE HCL 50 MG TABLET 100 MG PO (08:12)
[2022-09-07] MEDS: PANTOPRAZOLE 40 MG TABLET PO ×2 (08:12→20:11)
[2022-09-07] MEDS: VITAMIN B CMPLX/VIT C/FOLIC AC 1 CAPSULE 1 CAP PO (08:12)
[2022-09-07] MEDS: ATORVASTATIN 40 MG TABLET 80 MG PO (08:12)
[2022-09-07] MEDS: ASPIRIN 81 MG CHEWABLE TABLET PO (08:12)
[2022-09-07] MEDS: NICOTINE (*PBKC) 21 MG PATCH 1 PATCH TRANSDERM (08:12)
[2022-09-07 08:16] LABS: Glucose Point of Care 118 mg/dl (65-105)
[2022-09-07] MEDS: ERTAPENEM SODIUM 0.5 GM in SODIUM CHLORIDE 0.9% IV 50 ML IVPB (08:16)
[2022-09-07] MEDS: INSULIN GLARGINE (*BKC) 100 UNITS/ML 8 UNITS SUB-Q ×2 (08:23→20:17)
[2022-09-07] MEDS: INSULIN ASPART (*BKC) 100 UNITS/ML SUB-Q ×4 (08:23→17:51)
[2022-09-07] MEDS: TOLNAFTATE 1% POWDER 45 GM BTL 1 APPLIC TOPICAL ×2 (08:30→20:26)
[2022-09-07] MEDS: SOD HYPOCHLORITE 1/4 STRENGTH 473 ML 1 APPLIC TOPICAL ×2 (08:30→20:26)
[2022-09-07] MEDS: SILVERGEL (ELTA) 45 ML 1 APPLIC TOPICAL (08:31)
--- NOTE | 2022-09-07 09:07 | PC.NURSE ---
Call from MRI. Unable to do scan do to the pts neurostimulator. made aware.
[2022-09-07 09:22] LABS: Glucose Point of Care 110 mg/dl (65-105)
[2022-09-07] MEDS: HYDROcodone/acetaminophen (*CRX) 7.5-325 MG TABLET 1 TAB PO ×3 (09:59→23:21)
[2022-09-07 12:12] LABS: Glucose Point of Care 141 mg/dl (65-105)
[2022-09-07] MEDS: LORazepam (*CRX) 0.5 MG TABLET PO ×2 (13:22→20:13)
--- NOTE | 2022-09-07 15:45 | PM.IMPN ---
Progress Note: A&P Assessment and Plan (1) Decubitus ulcers: Code(s): L89.90 - Pressure ulcer of unspecified site, unspecified stage Status: Chronic Assessment and Plan: Initially presented from home with infected wounds after having gone two weeks without wound care. Vancomycin and zosyn started 08/25/22. 08/25/22 had debridement and washout of stage IV sacral decubitus ulcer, left decubitus ischial ulcer and left hip ulcer. 08/28/22 had bedside debridement of sacral decubitus and distal below the knee stump. 08/30/22 had debridement of skin, subcutaneous tissue and necrotic muscle of the right BKA and laparoscopic creation of end colostomy. Leukocytosis largely unchanged. Diverting seemed to have helped with leukocytosis decreasing yesterday. 08/28 wcx with ESBL Escherichia coli and klebsiella pneumonia. Discussed with ID pharmacist and will attempt treatment with ertapenem for now. Leukocytosis elevated but significant reactive thrombocytosis also. -Ertapenem 500 mg daily - renally dosed -Will need care for his wounds at the facility once it is appropriate for him to return -MRI pelvis to rule out osteomyelitis in sacral wound 09/07/2022 interval: patient states diverting colostomy has improved wound hygiene and clinically is feeling better patient is working with a social service and planning to continue antibiotics while at the assisted, discussed with the ID pharmacist and further recommendation to follow, patient with end-stage renal disease on hemodialysis while in the dialysis center and before the start of hemodialysis patient had hypotensive episode, which was immediately corrected and patient felt better however patient did not receive for dialysis today will discuss with remote advisor and possibly patient will have a dialysis tomorrow, will continue to monitor (2) DKA (diabetic ketoacidoses): Qualifiers: Diabetes mellitus type: type 1 Diabetes mellitus complication detail: without coma Qualified Code(s): E10.10 - Type 1 diabetes mellitus with ketoacidosis without coma Code(s): E11.10 - Type 2 diabetes mellitus with ketoacidosis without coma Status: Resolved Assessment and Plan: Admitted to the ICU for DKA after initial presentation to the emergency department. This resolved after treatment in the ICU. Resolved. (3) IDDM (insulin dependent diabetes mellitus): Status: Chronic Assessment and Plan: S/p admission to ICU for DKA. BG worsened, which may be due to infection. Glucose control improved. -Continue glargine 7 units BID -Increased Aspart to 5 units TIDWM -High dose SSI (4) ESRD (end stage renal disease): Code(s): N18.6 - End stage renal disease Status: Chronic Assessment and Plan: ESRD with hemodialysis through a catheter. -Appreciate recommendations from Nephrology (5) Anemia: Code(s): D64.9 - Anemia, unspecified Status: Chronic Assessment and Plan: Likely secondary to his end-stage renal disease. At baseline. -Appreciate recommendations from Nephrology -Epoetin (6) Depression with anxiety: Code(s): F41.8 - Other specified anxiety disorders Status: Acute Assessment and Plan: -continue with sertraline (7) Hypertension: Qualifiers: Hypertension type: unspecified Qualified Code(s): I10 - Essential (primary) hypertension Code(s): I10 - Essential (primary) hypertension Status: Acute Assessment and Plan: BP soft initially, so antihypertensives held. Now BP has improved. Appreciate recommendations from Nephrology. (8) CHF (congestive heart failure): Qualifiers: Heart failure chronicity: unspecified Heart failure type: unspecified Qualified Code(s): I50.9 - Heart failure, unspecified Code(s): I50.9 - Heart failure, unspecified Status: Acute Asse
[2022-09-07] MEDS: EPOETIN ALFA-EPBX 20,000 UNITS/ML VIAL 20000 UNITS IV PUSH (15:48)
[2022-09-07 17:28] LABS: Glucose Point of Care 238 mg/dl (65-105)
[2022-09-07 20:04] LABS: Glucose Point of Care 273 mg/dl (65-105)
[2022-09-07] MEDS: MORPHINE SULFATE (*CRX) 2 MG/ML INJ IV PUSH (20:23)
[2022-09-07 22:36] LABS: Glucose Point of Care 256 mg/dl (65-105)
[2022-09-08] VITALS (9 sets, daily range): BP systolic 124–159; BP diastolic 59–68; PULSE 89–101; RESP 16; TEMP 36.6–36.8; O2SAT 96–97
[2022-09-08 05:44] LABS: Basophils Absolute Auto 0.1 K/mm3 (0.0-0.1); Basophils Percent Auto 0.7 % (0.2-1.2); Eosinophils Absolute Auto 0.4 K/mm3 (0-0.3); Eosinophils Percent Auto 2.9 % (0-4.4); Hematocrit 26.7 % (42.0-52.0); Hemoglobin 7.9 g/dL (14.0-18.0); Immature Granulocyte Absolute 0.12 K/mm3 (0.00-0.031); Immature Granulocyte Percent A 0.8 % (0-0.5); Lymphocytes Absolute Auto 1.97 K/mm3 (0.9-3.2); Lymphocytes Percent Auto 13.5 % (18.3-44.2); Mean Corpuscular HGB Conc 29.6 g/dl (32-36); Mean Corpuscular Hemoglobin 27.7 pg (26-34); Mean Corpuscular Volume 93.7 fl (80-100); Mean Platelet Volume 9.5 fl (7.4-10.4); Neutrophils Percent Auto 75.1 % (45.5-73.1); Nucleated Red Blood Cells Perc 0.1 % (0.0-0.2); Platelet Count Result 816 k/mm3 (150-375); Red Blood Count 2.85 M/mm3 (4.6-6.20); Red Cell Distribution Width 18.2 % (11.5-14.5); White Blood Count 14.6 K/mm3 (4.5-10.0)
[2022-09-08 05:57] LABS: Albumin Level 2.5 g/dL (3.5-5.1); Anion Gap 13 mmol/L (8-16); Blood Urea Nitrogen 83 mg/dL (9-20); Calcium 8.5 mg/dL (8.4-10.2); Carbon Dioxide 30 mmol/L (22-30); Chloride 93 mmol/L (98-107); Estimated CRCL calculation 12 ml/min; Estimated Glomerular Filt Rate 12; Glucose 124 mg/dL (65-110); Phosphorus 7.4 mg/dL (2.5-4.5); Potassium 5.2 mmol/L (3.4-5.0); Sodium 136 mmol/L (137-145)
--- NOTE | 2022-09-08 08:01 | PM.PNNEP ---
Progress Note: A&P Assessment and Plan (1) ESRD (end stage renal disease): Code(s): N18.6 - End stage renal disease Status: Chronic Assessment and Plan: the patient is due for dialysis tomorrow. He only had a short dialysis yesterday but he does not want to do another treatment today. (2) Decubitus ulcer of sacral area: Code(s): L89.159 - Pressure ulcer of sacral region, unspecified stage Status: Chronic Assessment and Plan: Getting local wound care. He is on antibiotics. He had a diverting colostomy. he is eating fairly well. (3) Anemia: Code(s): D64.9 - Anemia, unspecified Status: Chronic Assessment and Plan: Hemoglobin somewhat resistant to improving. Most likely this is because of the wounds. He is getting Epogen. No need for iron because of infection. (4) Hypertension: Code(s): I10 - Essential (primary) hypertension Status: Acute Assessment and Plan: Blood pressure is Variable today, ranging between 89 and 159. (5) IDDM (insulin dependent diabetes mellitus): Status: Chronic Assessment and Plan: On Accu-Cheks and sliding-scale insulin per hospitalists. Subjective Date/time seen: 09/08/22 0800 Interval history: Patient feels okay today. Comfortable lying in bed. Exam Narrative: WDWN in NAD skin no rashor subcu nodules head ncat lungs clear bilaterally cor reg no rub or gallop abd BS+ nontender and soft . Colostomy present on left abdomen ext no edema. 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 Left BKA. Objective Data Vital Signs Vital Signs: Vital Signs - 24 hr 09/07/22 12:00 09/07/22 14:00 09/07/22 16:00 Temperature 36.6 C Pulse Rate 97 98 95 Respiratory Rate 12 Blood Pressure 151/68 H Pulse Oximetry 95 09/07/22 20:59 09/07/22 20:00 09/08/22 00:00 Temperature 37.3 C Pulse Rate 106 H 105 H 101 H Respiratory Rate 18 Blood Pressure 154/61 H Pulse Oximetry 96 09/08/22 04:18 09/08/22 04:00 Temperature 36.6 C Pulse Rate 94 98 Respiratory Rate 16 Blood Pressure 159/68 H Pulse Oximetry 97 Intake/Output Intake/Output: Intake & Output 09/05/22 09/06/22 09/07/22 09/08/22 23:59 23:59 23:59 23:59 Intake Total 530 1436 1890 970 Output Total 2010 800 360 130 Balance -4422 590 4945 840 Meds/Results Medications: Active Medications Generic Name Dose Route Start Last Admin Trade Name Freq PRN Reason Stop Dose Admin Acetaminophen 650 mg 08/26/22 08:40 09/03/22 15:23 Acetaminophen 325 Mg Tablet PO 650 mg Q4H PRN Administration Mild Pain (1-3) or Fever Hydrocodone Bitart/Acetaminophen 1 tab 08/30/22 17:38 09/08/22 10:04 Hydrocodone/Acetaminophen (*Crx) 7.5-325 Mg Tablet PO 1 tab Q6H PRN Administration Pain Rated 7-10 Aspirin 81 mg 09/02/22 09:00 09/08/22 09:55 Aspirin 81 Mg Chewable Tablet PO 81 mg DAILY MARTHA Administration Atorvastatin Calcium 80 mg 09/02/22 09:00 09/08/22 09:54 Atorvastatin 40 Mg Tablet PO 80 mg DAILY MARTHA Administration Cyanocobalamin 1,000 mcg 08/26/22 11:35 09/08/22 09:54 Cyanocobalamin 1,000 Mcg Tablet PO 1,000 mcg DAILY MARTHA Administration Dextrose 12.5 gm 08/25/22 15:27 08/26/22 07:25 Dextrose 50% 25 Gm/50 Ml Syringe IV PUSH 12.5 gm PRN PRN Administration Hypoglycemia Protocol Epoetin Johnnie-epbx 20,000 units 09/05/22 07:01 09/07/22 15:48 Epoetin Johnnie-Epbx 20,000 Units/Ml Vial IV PUSH 20,000 units MOWEFR MARTHA Administration Fentanyl Citrate 25 mcg 08/30/22 11:43 Fentanyl Citrate Inj (*Crx) 100 Mcg/2 Ml Vial IV PUSH Q2M PRN Pain Gabapentin 300 mg 08/26/22 11:35 09/08/22 09:54 Gabapentin 300 Mg Capsule PO 300 mg DAILY MARTHA Administration Glucagon 1 mg 08/25/22 15:27 Glucagon For Inj 1 Mg Vial IM PRN PRN Hypoglycemia Protocol Glucose 15 gm 08/25/22 15:27 Gluc
[2022-09-08 08:13] LABS: Glucose Point of Care 103 mg/dl (65-105)
[2022-09-08 08:16] LABS: Platelet Estimate Increased (Adequate)
[2022-09-08 08:21] LABS: Hypochromasia 2+ (NORMAL)
[2022-09-08 08:24] LABS: Anisocytosis 1+ (NORMAL); Poikilocytosis 1+ (NORMAL); Schistocytes 1+ (NORMAL); Target Cells 1+ (NORMAL)
[2022-09-08] MEDS: PANTOPRAZOLE 40 MG TABLET PO ×2 (09:54→20:37)
[2022-09-08] MEDS: CHOLECALCIFEROL 1,000 UNITS TABLET 1000 UNITS PO (09:54)
[2022-09-08] MEDS: GABAPENTIN 300 MG CAPSULE PO (09:54)
[2022-09-08] MEDS: SERTRALINE HCL 50 MG TABLET 100 MG PO (09:54)
[2022-09-08] MEDS: VITAMIN B COMPLEX CAPSULE 1 CAP PO (09:54)
[2022-09-08] MEDS: ATORVASTATIN 40 MG TABLET 80 MG PO (09:54)
[2022-09-08] MEDS: VITAMIN B CMPLX/VIT C/FOLIC AC 1 CAPSULE 1 CAP PO (09:54)
[2022-09-08] MEDS: TICAGRELOR 60 MG TABLET PO ×2 (09:54→16:36)
[2022-09-08] MEDS: CYANOCOBALAMIN 1,000 MCG TABLET 1000 MCG PO (09:54)
[2022-09-08] MEDS: ERTAPENEM SODIUM 0.5 GM in SODIUM CHLORIDE 0.9% IV 50 ML IVPB (09:55)
[2022-09-08] MEDS: ASPIRIN 81 MG CHEWABLE TABLET PO (09:55)
[2022-09-08] MEDS: SOD HYPOCHLORITE 1/4 STRENGTH 473 ML 1 APPLIC TOPICAL ×2 (09:55→20:36)
[2022-09-08] MEDS: TOLNAFTATE 1% POWDER 45 GM BTL 1 APPLIC TOPICAL ×2 (09:55→20:36)
[2022-09-08] MEDS: SILVERGEL (ELTA) 45 ML 1 APPLIC TOPICAL (09:55)
[2022-09-08] MEDS: INSULIN GLARGINE (*BKC) 100 UNITS/ML 8 UNITS SUB-Q ×2 (09:56→20:38)
[2022-09-08] MEDS: INSULIN ASPART (*BKC) 100 UNITS/ML SUB-Q ×3 (09:57→17:16)
[2022-09-08] MEDS: NICOTINE (*PBKC) 21 MG PATCH 1 PATCH TRANSDERM (10:03)
[2022-09-08] MEDS: HYDROcodone/acetaminophen (*CRX) 7.5-325 MG TABLET 1 TAB PO ×2 (10:04→16:36)
[2022-09-08 12:16] LABS: Glucose Point of Care 123 mg/dl (65-105)
[2022-09-08 16:41] LABS: Glucose Point of Care 128 mg/dl (65-105)
--- NOTE | 2022-09-08 16:56 | PM.IMPN ---
Progress Note: A&P Assessment and Plan (1) Decubitus ulcers: Code(s): L89.90 - Pressure ulcer of unspecified site, unspecified stage Status: Chronic Assessment and Plan: Initially presented from home with infected wounds after having gone two weeks without wound care. Vancomycin and zosyn started 08/25/22. 08/25/22 had debridement and washout of stage IV sacral decubitus ulcer, left decubitus ischial ulcer and left hip ulcer. 08/28/22 had bedside debridement of sacral decubitus and distal below the knee stump. 08/30/22 had debridement of skin, subcutaneous tissue and necrotic muscle of the right BKA and laparoscopic creation of end colostomy. Leukocytosis largely unchanged. Diverting seemed to have helped with leukocytosis decreasing yesterday. 08/28 wcx with ESBL Escherichia coli and klebsiella pneumonia. Discussed with ID pharmacist and will attempt treatment with ertapenem for now. Leukocytosis elevated but significant reactive thrombocytosis also. -Ertapenem 500 mg daily - renally dosed -Will need care for his wounds at the facility once it is appropriate for him to return -MRI pelvis to rule out osteomyelitis in sacral wound 09/08/2022 interval: patient states diverting colostomy has improved wound hygiene and clinically is feeling better patient is working with a social service and planning to continue antibiotics while at the residential, discussed with the ID pharmacist today r recommended patient given switch over to oral antibiotic Bactrim single strength twice a day until September 11, patient with end-stage renal disease on hemodialysis on 09/07 while in the dialysis center and before the start of hemodialysis patient had hypotensive episode, which was immediately corrected and patient felt better however patient patient has showed dialysis, today patient does not want dialysis as he been contemplating hospice he will discuss with his and make a decision, will discuss with sap bpc developer and possibly patient will have a dialysis tomorrow, will continue to monitor (2) DKA (diabetic ketoacidoses): Qualifiers: Diabetes mellitus type: type 1 Diabetes mellitus complication detail: without coma Qualified Code(s): E10.10 - Type 1 diabetes mellitus with ketoacidosis without coma Code(s): E11.10 - Type 2 diabetes mellitus with ketoacidosis without coma Status: Resolved Assessment and Plan: Admitted to the ICU for DKA after initial presentation to the emergency department. This resolved after treatment in the ICU. Resolved. (3) IDDM (insulin dependent diabetes mellitus): Status: Chronic Assessment and Plan: S/p admission to ICU for DKA. BG worsened, which may be due to infection. Glucose control improved. -Continue glargine 7 units BID -Increased Aspart to 5 units TIDWM -High dose SSI (4) ESRD (end stage renal disease): Code(s): N18.6 - End stage renal disease Status: Chronic Assessment and Plan: ESRD with hemodialysis through a catheter. -Appreciate recommendations from Nephrology (5) Anemia: Code(s): D64.9 - Anemia, unspecified Status: Chronic Assessment and Plan: Likely secondary to his end-stage renal disease. At baseline. -Appreciate recommendations from Nephrology -Epoetin (6) Depression with anxiety: Code(s): F41.8 - Other specified anxiety disorders Status: Acute Assessment and Plan: -continue with sertraline (7) Hypertension: Qualifiers: Hypertension type: unspecified Qualified Code(s): I10 - Essential (primary) hypertension Code(s): I10 - Essential (primary) hypertension Status: Acute Assessment and Plan: BP soft initially, so antihypertensives held. Now BP has improved. Appreciate recommendations from Nephrology. (8) CHF (congestive heart failure): Qualifiers: H
[2022-09-08] MEDS: LORazepam (*CRX) 0.5 MG TABLET PO (17:16)
[2022-09-08 21:43] LABS: Glucose Point of Care 184 mg/dl (65-105)
[2022-09-09] VITALS (23 sets, daily range): BP systolic 80–151; BP diastolic 52–94; PULSE 92–107; RESP 18–20; TEMP 36–37; O2SAT 97
[2022-09-09] MEDS: HYDROcodone/acetaminophen (*CRX) 7.5-325 MG TABLET 1 TAB PO ×2 (00:28→09:28)
[2022-09-09] MEDS: MORPHINE SULFATE (*CRX) 2 MG/ML INJ IV PUSH (04:20)
[2022-09-09 06:00] LABS: Basophils Absolute Auto 0.1 K/mm3 (0.0-0.1); Basophils Percent Auto 0.5 % (0.2-1.2); Eosinophils Absolute Auto 0.5 K/mm3 (0-0.3); Eosinophils Percent Auto 3.5 % (0-4.4); Hematocrit 25.8 % (42.0-52.0); Hemoglobin 7.9 g/dL (14.0-18.0); Immature Granulocyte Absolute 0.11 K/mm3 (0.00-0.031); Immature Granulocyte Percent A 0.8 % (0-0.5); Lymphocytes Absolute Auto 1.59 K/mm3 (0.9-3.2); Mean Corpuscular HGB Conc 30.6 g/dl (32-36); Mean Corpuscular Hemoglobin 28.3 pg (26-34); Mean Corpuscular Volume 92.5 fl (80-100); Mean Platelet Volume 9.3 fl (7.4-10.4); Monocytes Percent Auto 6.9 % (2.6-8.5); Neutrophils Absolute Auto 11.2 K/mm3 (1.3-6.7); Neutrophils Percent Auto 77.3 % (45.5-73.1); Nucleated Red Blood Cells Perc 0.1 % (0.0-0.2); Platelet Count Result 865 k/mm3 (150-375); Red Blood Count 2.79 M/mm3 (4.6-6.20); Red Cell Distribution Width 18.5 % (11.5-14.5); White Blood Count 14.5 K/mm3 (4.5-10.0)
[2022-09-09 06:15] LABS: Anion Gap 11 mmol/L (8-16); Blood Urea Nitrogen 102 mg/dL (9-20); Calcium 8.8 mg/dL (8.4-10.2); Carbon Dioxide 32 mmol/L (22-30); Chloride 91 mmol/L (98-107); Estimated CRCL calculation 9 ml/min; Estimated Glomerular Filt Rate 9; Glucose 180 mg/dL (65-110); Potassium 5.9 mmol/L (3.4-5.0); Sodium 134 mmol/L (137-145)
[2022-09-09 08:57] LABS: Glucose Point of Care 168 mg/dl (65-105)
[2022-09-09] MEDS: LORazepam (*CRX) 0.5 MG TABLET PO ×2 (09:28→17:51)
[2022-09-09] MEDS: ASPIRIN 81 MG CHEWABLE TABLET PO (09:28)
[2022-09-09] MEDS: SERTRALINE HCL 50 MG TABLET 100 MG PO (09:28)
[2022-09-09] MEDS: CYANOCOBALAMIN 1,000 MCG TABLET 1000 MCG PO (09:29)
[2022-09-09] MEDS: CHOLECALCIFEROL 1,000 UNITS TABLET 1000 UNITS PO (09:29)
[2022-09-09] MEDS: TICAGRELOR 60 MG TABLET PO ×2 (09:29→17:51)
[2022-09-09] MEDS: SULFAMETHOXAZOLE/TRIMETHOPRIM 400/80 MG TABLET 1 TAB PO (09:29)
[2022-09-09] MEDS: NICOTINE (*PBKC) 21 MG PATCH 1 PATCH TRANSDERM (09:29)
[2022-09-09] MEDS: PANTOPRAZOLE 40 MG TABLET PO (09:29)
[2022-09-09] MEDS: VITAMIN B COMPLEX CAPSULE 1 CAP PO (09:29)
[2022-09-09] MEDS: GABAPENTIN 300 MG CAPSULE PO (09:29)
[2022-09-09] MEDS: ATORVASTATIN 40 MG TABLET 80 MG PO (09:29)
[2022-09-09] MEDS: INSULIN GLARGINE (*BKC) 100 UNITS/ML 8 UNITS SUB-Q (09:30)
[2022-09-09] MEDS: INSULIN ASPART (*BKC) 100 UNITS/ML SUB-Q ×3 (09:30→17:51)
[2022-09-09] MEDS: SILVERGEL (ELTA) 45 ML 1 APPLIC TOPICAL (09:31)
[2022-09-09] MEDS: SOD HYPOCHLORITE 1/4 STRENGTH 473 ML 1 APPLIC TOPICAL (09:31)
[2022-09-09] MEDS: TOLNAFTATE 1% POWDER 45 GM BTL 1 APPLIC TOPICAL (09:32)
[2022-09-09] MEDS: VITAMIN B CMPLX/VIT C/FOLIC AC 1 CAPSULE 1 CAP PO (09:32)
--- NOTE | 2022-09-09 11:15 | PM.PNNEP ---
Progress Note: A&P Assessment and Plan (1) ESRD (end stage renal disease): Code(s): N18.6 - End stage renal disease Status: Chronic Assessment and Plan: the patient is due for dialysis today. (2) Decubitus ulcer of sacral area: Code(s): L89.159 - Pressure ulcer of sacral region, unspecified stage Status: Chronic Assessment and Plan: Getting local wound care. He is on antibiotics. He had a diverting colostomy. he is eating fairly well. (3) Anemia: Code(s): D64.9 - Anemia, unspecified Status: Chronic Assessment and Plan: Hemoglobin somewhat resistant to improving. Most likely this is because of the wounds. He is getting Epogen. Dose increased to 20,000 (4) Hypertension: Code(s): I10 - Essential (primary) hypertension Status: Acute Assessment and Plan: Blood pressure is Variable today, ranging between 89 and 159. (5) IDDM (insulin dependent diabetes mellitus): Status: Chronic Assessment and Plan: On Accu-Cheks and sliding-scale insulin per hospitalists. Subjective Date/time seen: 09/09/22 11:15 Interval history: Patient feels okay today. Comfortable lying in bed. He considered going hospice again yesterday but family came in and they discussed and have decided to continue. So he is going to get dialysis today Exam Narrative: WDWN in NAD skin no rashor subcu nodules head ncat lungs clear to auscultate cor reg no rub or gallop abd BS+ nontender and soft . Colostomy present on left abdomen ext no edema. 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 Left BKA. Objective Data Vital Signs Vital Signs: Vital Signs - 24 hr 09/08/22 12:00 09/08/22 14:00 09/08/22 16:00 Temperature 36.6 C Pulse Rate 97 100 91 Respiratory Rate 16 Blood Pressure 124/59 L Pulse Oximetry 97 09/08/22 19:59 09/08/22 20:00 09/09/22 00:00 Temperature 36.8 C Pulse Rate 97 95 102 H Respiratory Rate 16 Blood Pressure 145/59 H Pulse Oximetry 96 09/09/22 04:11 09/09/22 04:00 Temperature 36.6 C Pulse Rate 100 101 H Respiratory Rate 18 Blood Pressure 151/81 H Pulse Oximetry 97 Intake/Output Intake/Output: Intake & Output 09/06/22 09/07/22 09/08/22 09/09/22 23:59 23:59 23:59 23:59 Intake Total 1436 1890 2100 680 Output Total 800 360 380 100 Balance 636 1530 1720 580 Meds/Results Medications: Active Medications Generic Name Dose Route Start Last Admin Trade Name Freq PRN Reason Stop Dose Admin Acetaminophen 650 mg 08/26/22 08:40 09/03/22 15:23 Acetaminophen 325 Mg Tablet PO 650 mg Q4H PRN Administration Mild Pain (1-3) or Fever Hydrocodone Bitart/Acetaminophen 1 tab 08/30/22 17:38 09/09/22 09:28 Hydrocodone/Acetaminophen (*Crx) 7.5-325 Mg Tablet PO 1 tab Q6H PRN Administration Pain Rated 7-10 Aspirin 81 mg 09/02/22 09:00 09/09/22 09:28 Aspirin 81 Mg Chewable Tablet PO 81 mg DAILY MARTHA Administration Atorvastatin Calcium 80 mg 09/02/22 09:00 09/09/22 09:29 Atorvastatin 40 Mg Tablet PO 80 mg DAILY MARTHA Administration Cyanocobalamin 1,000 mcg 08/26/22 11:35 09/09/22 09:29 Cyanocobalamin 1,000 Mcg Tablet PO 1,000 mcg DAILY MARTHA Administration Dextrose 12.5 gm 08/25/22 15:27 08/26/22 07:25 Dextrose 50% 25 Gm/50 Ml Syringe IV PUSH 12.5 gm PRN PRN Administration Hypoglycemia Protocol Epoetin Johnnie-epbx 20,000 units 09/05/22 07:01 09/07/22 15:48 Epoetin Johnnie-Epbx 20,000 Units/Ml Vial IV PUSH 20,000 units MOWEFR MARTHA Administration Fentanyl Citrate 25 mcg 08/30/22 11:43 Fentanyl Citrate Inj (*Crx) 100 Mcg/2 Ml Vial IV PUSH Q2M PRN Pain Gabapentin 300 mg 08/26/22 11:35 09/09/22 09:29 Gabapentin 300 Mg Capsule PO 300 mg DAILY MARTHA Administration Glucagon 1 mg 08/25/22 15:27 Glucagon For Inj 1 Mg Vial IM PRN PRN Hypoglycemia Pr
[2022-09-09 12:45] LABS: Glucose Point of Care 190 mg/dl (65-105)
[2022-09-09 13:11] LABS: EDCOVIDSCREEN Negative (Negative)
--- NOTE | 2022-09-09 16:13 | PM.DS ---
DS: Admitting Diagnosis Discharge Date 09/09/2022 Admitting Diagnosis sacral wound DS: Discharge Diagnosis Discharge Diagnosis (1) Decubitus ulcers: Code(s): L89.90 - Pressure ulcer of unspecified site, unspecified stage Status: Chronic Assessment and Plan: Initially presented from home with infected wounds after having gone two weeks without wound care. Vancomycin and zosyn started 08/25/22. 08/25/22 had debridement and washout of stage IV sacral decubitus ulcer, left decubitus ischial ulcer and left hip ulcer. 08/28/22 had bedside debridement of sacral decubitus and distal below the knee stump. 08/30/22 had debridement of skin, subcutaneous tissue and necrotic muscle of the right BKA and laparoscopic creation of end colostomy. Leukocytosis largely unchanged. Diverting seemed to have helped with leukocytosis decreasing yesterday. 08/28 wcx with ESBL Escherichia coli and klebsiella pneumonia. Discussed with ID pharmacist and will attempt treatment with ertapenem for now. Leukocytosis elevated but significant reactive thrombocytosis also. -Ertapenem 500 mg daily - renally dosed -Will need care for his wounds at the facility once it is appropriate for him to return -MRI pelvis to rule out osteomyelitis in sacral wound 09/08/2022 interval: patient states diverting colostomy has improved wound hygiene and clinically is feeling better patient is working with a social service and planning to continue antibiotics while at the retirement, discussed with the ID pharmacist today r recommended patient given switch over to oral antibiotic Bactrim single strength twice a day until September 11, patient with end-stage renal disease on hemodialysis on 09/07 while in the dialysis center and before the start of hemodialysis patient had hypotensive episode, which was immediately corrected and patient felt better however patient patient has showed dialysis, today patient does not want dialysis as he been contemplating hospice he will discuss with his and make a decision, will discuss with hooker inspector and possibly patient will have a dialysis tomorrow, will continue to monitor (2) DKA (diabetic ketoacidoses): Qualifiers: Diabetes mellitus type: type 1 Diabetes mellitus complication detail: without coma Qualified Code(s): E10.10 - Type 1 diabetes mellitus with ketoacidosis without coma Code(s): E11.10 - Type 2 diabetes mellitus with ketoacidosis without coma Status: Resolved Assessment and Plan: Admitted to the ICU for DKA after initial presentation to the emergency department. This resolved after treatment in the ICU. Resolved. (3) IDDM (insulin dependent diabetes mellitus): Status: Chronic Assessment and Plan: S/p admission to ICU for DKA. BG worsened, which may be due to infection. Glucose control improved. -Continue glargine 7 units BID -Increased Aspart to 5 units TIDWM -High dose SSI (4) ESRD (end stage renal disease): Code(s): N18.6 - End stage renal disease Status: Chronic Assessment and Plan: ESRD with hemodialysis through a catheter. -Appreciate recommendations from Nephrology (5) Anemia: Code(s): D64.9 - Anemia, unspecified Status: Chronic Assessment and Plan: Likely secondary to his end-stage renal disease. At baseline. -Appreciate recommendations from Nephrology -Epoetin (6) Depression with anxiety: Code(s): F41.8 - Other specified anxiety disorders Status: Acute Assessment and Plan: -continue with sertraline (7) Hypertension: Qualifiers: Hypertension type: unspecified Qualified Code(s): I10 - Essential (primary) hypertension Code(s): I10 - Essential (primary) hypertension Status: Acute Assessment and Plan: BP soft initially, so antihypertensives held. Now BP has improved. Appreciate recommendat
[2022-09-09 17:51] LABS: Glucose Point of Care 165 mg/dl (65-105)
[2022-09-09] MEDS: ACETAMINOPHEN 325 MG TABLET 650 MG PO (17:51)
== END 2022-09-09 18:46 | DRG 853 ==
LOC: ANHED 14:57 → ANHSURGERY 15:06 → ANHICU 17:01 → ANH3MED 08-26 17:19
PROVIDERS: Emergency Medicine; Family Medicine; Internal Medicine; Internal Medicine Nephrology; Nurse Practitioner; Surgery; Admitting Provider Internal Medicine; Emergency Provider Internal Medicine; PCP Emergency Medicine; Visit Provider Family Medicine
PROC: 0KDP0ZZ Extraction of Left Hip Muscle, Open Approach (ICD-10-PCS; principal; 2022-08-25 15:30)
PROC: 0DTF4ZZ Resection of Right Large Intestine, Percutaneous Endoscopic Approach (ICD-10-PCS; CPT 44204; principal; 2022-08-30 12:00)
DX: A41.9 Sepsis, unspecified organism (principal); E10.10 Type 1 diabetes mellitus with ketoacidosis without coma; J96.00 Acute respiratory failure, unspecified whether with hypoxia or hypercapnia; L89.154 Pressure ulcer of sacral region, stage 4; L89.224 Pressure ulcer of left hip, stage 4; L89.323 Pressure ulcer of left buttock, stage 3; N18.6 End stage renal disease; I13.2 Hypertensive heart and chronic kidney disease with heart failure and with stage 5 chronic kidney disease, or end stage renal disease; I50.32 Chronic diastolic (congestive) heart failure; G61.0 Guillain-Barre syndrome; R65.20 Severe sepsis without septic shock; T87.53 Necrosis of amputation stump, right lower extremity; Z20.822 Contact with and (suspected) exposure to COVID-19; F17.210 Nicotine dependence, cigarettes, uncomplicated; I25.10 Atherosclerotic heart disease of native coronary artery without angina pectoris; E10.22 Type 1 diabetes mellitus with diabetic chronic kidney disease; E10.319 Type 1 diabetes mellitus with unspecified diabetic retinopathy without macular edema; E10.40 Type 1 diabetes mellitus with diabetic neuropathy, unspecified; E10.51 Type 1 diabetes mellitus with diabetic peripheral angiopathy without gangrene; Z99.2 Dependence on renal dialysis; D63.1 Anemia in chronic kidney disease; B96.20 Unspecified Escherichia coli [E. coli] as the cause of diseases classified elsewhere; B96.1 Klebsiella pneumoniae [K. pneumoniae] as the cause of diseases classified elsewhere; F41.8 Other specified anxiety disorders; E87.6 Hypokalemia; I25.2 Old myocardial infarction; Z79.02 Long term (current) use of antithrombotics/antiplatelets; Z79.4 Long term (current) use of insulin; Z79.82 Long term (current) use of aspirin; Z79.899 Other long term (current) drug therapy; Z86.74 Personal history of sudden cardiac arrest; Z89.511 Acquired absence of right leg below knee; Z89.612 Acquired absence of left leg above knee; Z95.5 Presence of coronary angioplasty implant and graft; Z98.49 Cataract extraction status, unspecified eye
CPT/HCPCS: 36415; 36430; 71045; 80048; 80053; 80069; 80202; 81001; 82010; 82947; 82948; 83036; 83605; 83735; 84100; 85014; 85018; 85025; 85027; 85610; 85652; 85730; 86140; 86706; 86850; 86900; 86901; 86920; 87040; 87070; 87077; 87086; 87186; 87205; 87340; 87426; 88305; 96361; 96365; 96367; 99285; A9270; C9113; C9803; G0257; G0378; J0171; J1335; J1644; J1815; J2270; J2370; J2405; J2543; J2704; J2710; J3010; J3370; J7030; J7040; J7050; J7120; P9016; Q5105; U0003; U0005

== ENCOUNTER 2022-09-14 09:38 | Emergency (ER) | payer OTHER, SELFPAY ==
[2022-09-14 09:36] VITALS: BP 106/56; PULSE 84; RESP 16; TEMP 36.6; O2SAT 97
--- NOTE | 2022-09-14 09:43 | ED.LOWEXIN ---
HPI - Extremity Injury (Lower) General Chief Complaint: Extremity Injury, Lower Stated Complaint: BKA wound Time Seen by Provider: 09/14/22 09:42 Source: patient Mode of arrival: EMS Limitations: no limitations History of Present Illness HPI Narrative: Patient is a 57-year-old male with a complex past medical history type 2 diabetes, end-stage renal disease on Monday dialysis, chronic wounds to the scrotum, sacrum, and chronic right stump wound, presenting to the emergency department for evaluation of wound concern after bumping the wound on a chair during a transfer. Pt reports small amount of bleeding from the wound. Pt denies any pain. Patient denies any systemic symptoms such as fever, chills, nausea, vomiting. Patient was supposed to go to dialysis this morning at 10 AM but due to concern after bumping the wound, wanted to be evaluated. Patient denies any current active bleeding. Patient chart reviewed, has a history of complex wounds and wound infection with last admission to the hospital last week. [facility] after he was found septic from wound infection. Patient with debridement while inpatient to the right below the knee amputation stump, and it was recommended at that time that patient follow-up with vascular surgery at a tertiary care center for stump revision Related Data Home Medications Medication Instructions Recorded Confirmed vitamin B complex-vitamin C-folic 1 tablet PO DAILY 07/23/20 08/25/22 acid 0.8 mg tablet (Dang-Nilsa) ropinirole 0.25 mg tablet 0.25 mg PO DIRECTED 01/11/21 08/25/22 ticagrelor 60 mg tablet (Brilinta) 60 mg PO BID 06/23/22 08/25/22 albuterol sulfate 90 mcg/actuation 1 puff inhalation Q6H PRN 07/09/22 08/25/22 aerosol inhaler Shortness Of Breath aspirin 81 mg tablet 81 mg PO DAILY 07/09/22 08/25/22 cholecalciferol (vitamin D3) 25 25 mcg PO DAILY 07/09/22 08/25/22 mcg (1,000 unit) tablet (Vitamin D3) bisacodyl 10 mg rectal suppository 10 mg RECTAL DAILY PRN Constipation 07/28/22 08/25/22 insulin lispro 100 unit/mL 1 sliding scale dose subcut 07/28/22 08/25/22 subcutaneous pen USEASDIRECTD magnesium hydroxide 400 mg/5 mL 30 ml PO HS PRN Constipation 07/28/22 08/25/22 oral suspension (Milk of Magnesia) omeprazole 20 mg capsule,delayed 20 mg PO DAILY 07/28/22 08/25/22 release sodium phosphates 19 gram-7 118 ml RECTAL ONCE PRN Constipation 07/28/22 08/25/22 gram/118 mL enema (Fleet Enema) cyanocobalamin (vitamin B-12) 1,000 mcg PO DAILY 08/25/22 08/25/22 1,000 mcg capsule vitamin B complex 1 cap PO DAILY 08/25/22 08/25/22 Allergies Allergy/AdvReac Type Severity Reaction Status Date / Time scopolamine Allergy Severe Unresponsiv Verified 09/14/22 09:42 e Review of Systems Review of Systems: CONSTITUTIONAL: Denies fever, chills, or sweats. EYES: Denies visual changes, redness, or discharge. ENT: Denies rhinorrhea, congestion, sore throat, or otalgia. CARDIOVASCULAR: Denies chest pain, palpitations, or edema. RESPIRATORY: Denies cough or dyspnea. GASTROINTESTINAL: Denies abdominal pain, nausea, vomiting, or diarrhea. GENITOURINARY: Denies dysuria or hematuria. SKIN: Denies rash or itching. Pt reports chronic right BKA stump wound. MUSCULOSKELETAL: Denies back pain, joint pain, or myalgia. NEUROLOGIC: Denies headache, numbness, or weakness. [facility] Past Medical History Medical History Acute respiratory failure with hypoxia Amputation above knee Anemia Anemia Anxiety Benign prostatic hyperplasia Bradycardic cardiac arrest (~07/23/20) In the setting of severe hyperkalemia, acute pulmonary edema, and respiratory failure CHF (congestive heart failure) Chronic anemia Chronic kidney failure Congestive heart failure Echo 03/06/2021 1. Complete two-dimensional, color flow and Doppler transthoracic echocardiogram is performed. 2. Left ventricu
[2022-09-14 11:23] LABS: Basophils Absolute Auto 0.1 K/mm3 (0.0-0.1); Basophils Percent Auto 0.3 % (0.2-1.2); Eosinophils Absolute Auto 0.3 K/mm3 (0-0.3); Eosinophils Percent Auto 1.9 % (0-4.4); Hematocrit 26.7 % (42.0-52.0); Hemoglobin 8.1 g/dL (14.0-18.0); Immature Granulocyte Percent A 0.6 % (0-0.5); Lymphocytes Absolute Auto 0.95 K/mm3 (0.9-3.2); Mean Corpuscular HGB Conc 30.3 g/dl (32-36); Mean Corpuscular Hemoglobin 28.1 pg (26-34); Mean Corpuscular Volume 92.7 fl (80-100); Mean Platelet Volume 9.2 fl (7.4-10.4); Monocytes Absolute Auto 0.9 K/mm3 (0.1-0.6); Monocytes Percent Auto 5.5 % (2.6-8.5); Neutrophils Absolute Auto 13.5 K/mm3 (1.3-6.7); Neutrophils Percent Auto 85.7 % (45.5-73.1); Platelet Count Result 885 k/mm3 (150-375); Red Blood Count 2.88 M/mm3 (4.6-6.20); Red Cell Distribution Width 18.6 % (11.5-14.5); White Blood Count 15.8 K/mm3 (4.5-10.0)
[2022-09-14 11:38] LABS: Anion Gap 14 mmol/L (8-16); Blood Urea Nitrogen 75 mg/dL (9-20); Calcium 7.2 mg/dL (8.4-10.2); Carbon Dioxide 24 mmol/L (22-30); Chloride 94 mmol/L (98-107); Estimated Glomerular Filt Rate 12; Glucose 157 mg/dL (65-110); Potassium 5.2 mmol/L (3.4-5.0); Sodium 132 mmol/L (137-145)
[2022-09-14 13:20] VITALS: BP 107/56; PULSE 80; RESP 16; O2SAT 97
== END 2022-09-14 13:20 ==
PROVIDERS: Emergency Provider Emergency Medicine; PCP Emergency Medicine
DX: L98.8 Other specified disorders of the skin and subcutaneous tissue (principal); E10.22 Type 1 diabetes mellitus with diabetic chronic kidney disease; I13.2 Hypertensive heart and chronic kidney disease with heart failure and with stage 5 chronic kidney disease, or end stage renal disease; N18.6 End stage renal disease; I50.9 Heart failure, unspecified; E10.319 Type 1 diabetes mellitus with unspecified diabetic retinopathy without macular edema; E10.21 Type 1 diabetes mellitus with diabetic nephropathy; E10.40 Type 1 diabetes mellitus with diabetic neuropathy, unspecified; D63.1 Anemia in chronic kidney disease; I25.10 Atherosclerotic heart disease of native coronary artery without angina pectoris; N40.0 Benign prostatic hyperplasia without lower urinary tract symptoms; G61.0 Guillain-Barre syndrome; N25.0 Renal osteodystrophy; I25.2 Old myocardial infarction; K21.9 Gastro-esophageal reflux disease without esophagitis; Z89.511 Acquired absence of right leg below knee; Z89.612 Acquired absence of left leg above knee; E55.9 Vitamin D deficiency, unspecified; F41.8 Other specified anxiety disorders; Z99.2 Dependence on renal dialysis; Z87.01 Personal history of pneumonia (recurrent); Z95.5 Presence of coronary angioplasty implant and graft; Z96.82 Presence of neurostimulator; Z98.49 Cataract extraction status, unspecified eye; F17.210 Nicotine dependence, cigarettes, uncomplicated; Z93.3 Colostomy status; Z79.4 Long term (current) use of insulin; Z79.82 Long term (current) use of aspirin
CPT/HCPCS: 36415; 80048; 85025; 99283

== ENCOUNTER 2022-09-26 16:27 | Emergency (ER) | payer OTHER, SELFPAY ==
[2022-09-26] VITALS (17 sets, daily range): BP systolic 100–136; BP diastolic 60–66; PULSE 72–100; RESP 12–20; TEMP 36.6; O2SAT 93–99
--- NOTE | ~2022-09-26 | CT_ITS ---
EXAMINATION: CT brain wo con DATE: 09/26/2022 17:19 INDICATION: Slurred speech, altered mental state. Leaning to left side. TECHNIQUE: Computed tomography (CT) of the head was performed without intravenous contrast. The mA wa s adjusted according to patient size. Iterative reconstruction technique was employed. Exam dose: 60 5.33 mGy-cm total exam DLP. COMPARISON: 07/15/2022 CT brain 07/15/2022 CT brain carotid FINDINGS: Diffuse severe arterial calcifications of the neck and head; consider diabetes or hypercalc emia, hyperparathyroidism. There are prominent vertebral artery calcifications and severe carotid siphon internal carotid artery calcifications. 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 There is nonspecific diminished attenuation cerebral white matter, likely due to chronic small vessel ischemic changes. No intracranial mass lesion or hemorrhage, midline shift or mass effect effect is detected. No subdural or epidural hematoma. There is partial opacification of the left mastoid air cells. The right mastoid air cells are well-de veloped and aerated. There is a mucous retention cyst or polyp along the medial wall of the left sphenoid sinus. The paran yaritza sinuses are otherwise unremarkable. No fracture or bone destruction of the cranial vault IMPRESSION: Extensive arterial calcification involving the head and neck in particular vertebral and carotid siphon internal carotid arteries show consider diabetes, hypercalcemia, hyperparathyroidism. Chronic left frontal and anterior left temporal infarcts No acute intracranial finding or significant change since 07/15/2022 Reviewed, dictated and finalized at [facility]. Reviewed, dictated and finalized at [facility]. L [employer] IMPRESSION: Extensive arterial calcification involving the head and neck in pa rticular vertebral and carotid siphon internal carotid arteries show consider d iabetes, hypercalcemia, hyperparathyroidism. Chronic left frontal and anterior left temporal infarcts No acute intracranial finding or significant change since 07/15/2022
--- NOTE | ~2022-09-26 | XR_ITS ---
XR chest 1V portable DATE: 09/26/2022 17:30 INDICATION: Cough. Diabetes mellitus, history of hypertension, congestive heart failure. Kidney failure, dialysis TECHNIQUE: Portable AP supine chest on 09/26/2022 at 1724 hours COMPARISON: 08/26/2022 portable AP chest at 0459 hours FINDINGS: Right dual lumen internal jugular central venous catheter with tip overlying upper right at rium. Heart size is within normal limits. Is aortic arch calcification. There is mild infiltrate or atelectasis in the lower lung zones, greater on the left. Pulmonary vascu larity appears within normal limits for there is minimal if any pleural effusion. No pneumothorax. IMPRESSION: Mild infiltrate or atelectasis in the lower lungs Right internal jugular central venous catheter tip overlies upper right atrium; no pneumothorax Reviewed, dictated and finalized at [facility]. [facility] [employer] [employer]
--- NOTE | 2022-09-26 16:57 | ECG_ITS ---
Measurements Intervals [place] Rate: 95 P: 59 DC: 158 QRS: 53 QRSD: 84 T: 85 QT: 385 QTc: 485 Interpretive Statements SINUS RHYTHM VOLTAGE CRITERIA FOR LVH POOR R WAVE PROGRESSION, CONSIDER ANTERIOR INFARCT BORDERLINE T WAVE ABNORMALITY- HIGH LATERAL LEADS BASELINE ARTIFACT- I, III, AVL, V4 ABNORMAL ECG COMPARED TO ECG 07/15/2022 09:27:59 SINUS RHYTHM NOW PRESENT POOR R WAVE PROGRESSION, CONSIDER ANTERIOR INFARCT NOW PRESENT Electronically Signed On 09-26-2022 19:39:29 [employer] by Edmond Elias D.O.
--- NOTE | 2022-09-26 16:59 | ED.NEUROSD ---
HPI - Neuro Symptoms/Deficit General Chief Complaint: Neuro Symptoms/Deficit Stated Complaint: stroke like symptoms, unknown LKW Time Seen by Provider: 09/26/22 16:42 History of Present Illness HPI Narrative: Pt had slurred speech while on dialysis which has now resolved. Pt denies fever or one sided weakness. Pt denies vomiting or REY. Pt was also confused for a bit but feels fine now. Related Data Home Medications Medication Instructions Recorded Confirmed vitamin B complex-vitamin C-folic 1 tablet PO DAILY 07/23/20 08/25/22 acid 0.8 mg tablet (Dang-Nilsa) ropinirole 0.25 mg tablet 0.25 mg PO DIRECTED 01/11/21 08/25/22 ticagrelor 60 mg tablet (Brilinta) 60 mg PO BID 06/23/22 08/25/22 albuterol sulfate 90 mcg/actuation 1 puff inhalation Q6H PRN 07/09/22 08/25/22 aerosol inhaler Shortness Of Breath aspirin 81 mg tablet 81 mg PO DAILY 07/09/22 08/25/22 cholecalciferol (vitamin D3) 25 25 mcg PO DAILY 07/09/22 08/25/22 mcg (1,000 unit) tablet (Vitamin D3) bisacodyl 10 mg rectal suppository 10 mg RECTAL DAILY PRN Constipation 07/28/22 08/25/22 insulin lispro 100 unit/mL 1 sliding scale dose subcut 07/28/22 08/25/22 subcutaneous pen USEASDIRECTD magnesium hydroxide 400 mg/5 mL 30 ml PO HS PRN Constipation 07/28/22 08/25/22 oral suspension (Milk of Magnesia) omeprazole 20 mg capsule,delayed 20 mg PO DAILY 07/28/22 08/25/22 release sodium phosphates 19 gram-7 118 ml RECTAL ONCE PRN Constipation 07/28/22 08/25/22 gram/118 mL enema (Fleet Enema) cyanocobalamin (vitamin B-12) 1,000 mcg PO DAILY 08/25/22 08/25/22 1,000 mcg capsule vitamin B complex 1 cap PO DAILY 08/25/22 08/25/22 Allergies Allergy/AdvReac Type Severity Reaction Status Date / Time scopolamine Allergy Severe Unresponsiv Verified 09/26/22 16:52 e Review of Systems Review of Systems: All systems reviewed & are unremarkable except as noted in HPI and below [facility] Past Medical History Medical History Acute respiratory failure with hypoxia Amputation above knee Anemia Anemia Anxiety Benign prostatic hyperplasia Bradycardic cardiac arrest (~07/23/20) In the setting of severe hyperkalemia, acute pulmonary edema, and respiratory failure CHF (congestive heart failure) Chronic anemia Chronic kidney failure Congestive heart failure Echo 03/06/2021 1. Complete two-dimensional, color flow and Doppler transthoracic echocardiogram is performed. 2. Left ventricular chamber dimension is mildly enlarged. 3. Left ventricular systolic function is mildly reduced, estimated at 55-60%. 4. There is severely increased left ventricular wall thickness. Speckled appearance of the myocardium. 5. The left ventricular diastolic function is grade I diastolic dysfunction. 6. Left atrial chamber dimension is mildly enlarged. 7. There is moderate aortic valve sclerosis. 8. The mitral valve annulus is severely calcified. 9. There is mild mitral valve regurgitation. 10. The mitral valve has thickened leaflets. 11. There is mild tricuspid valve regurgitation. 12. There is mild pulmonic regurgitation. Coronary artery disease With non STEMI in December 2019, with stent placed to the LAD. Depression with anxiety Diabetic ketoacidosis DVT prophylaxis Elevated lipase Elevated troponin Employs prosthetic leg End-stage renal disease on hemodialysis Erythropoietin deficiency anemia Gastric ulcer On endoscopy per Dr. Pacheco in June 2020. Gastroesophageal reflux disease Guillain-[place] Hyperkalemia Hypertension Hypertensive urgency Leukocytosis Nausea & vomiting Noncompliance Pneumonia Pulmonary edema Renal osteodystrophy Seizure Secondary to hypoglycemia. Smoking ST elevation myocardial infarction (STEMI) (~06/26/20) Secondary to abrupt stent thrombosis of the LAD. Tobacco dependence Type 1 diabetes mellitus Diagnosed at the age of 10. Complicated by retinopathy, nephropathy, and neurop
[2022-09-26 18:37] LABS: Appearance Urine Turbid (Clear); Bilirubin Urine Negative (Negative); Blood Urine 3+ (Negative); Color Urine Yellow (Yellow); Glucose Urine UA Negative (Negative); Ketones Urine Negative (Negative); Leukocyte Esterase Ur 3+ LEU/UL (Negative); Nitrate Urine Negative (Negative); Protein Urine 3+ mg/dL (Negative); Specific Grav Ur 1.025 (1.001-1.035); Urobilinogen Urine 0.2 mg/dL (<2.0)
[2022-09-26 18:56] LABS: Basophils Percent Auto 0.2 % (0.2-1.2); Eosinophils Absolute Auto 0.1 K/mm3 (0-0.3); Eosinophils Percent Auto 0.3 % (0-4.4); Hematocrit 22.2 % (42.0-52.0); Immature Granulocyte Absolute 0.09 K/mm3 (0.00-0.031); Immature Granulocyte Percent A 0.5 % (0-0.5); Lymphocytes Absolute Auto 1.05 K/mm3 (0.9-3.2); Lymphocytes Percent Auto 6.4 % (18.3-44.2); Mean Corpuscular HGB Conc 30.2 g/dl (32-36); Mean Corpuscular Hemoglobin 27.3 pg (26-34); Mean Corpuscular Volume 90.6 fl (80-100); Mean Platelet Volume 8.7 fl (7.4-10.4); Monocytes Absolute Auto 0.6 K/mm3 (0.1-0.6); Monocytes Percent Auto 3.9 % (2.6-8.5); Neutrophils Absolute Auto 14.7 K/mm3 (1.3-6.7); Neutrophils Percent Auto 88.7 % (45.5-73.1); Platelet Count Result 699 k/mm3 (150-375); Red Blood Count 2.45 M/mm3 (4.6-6.20); Red Cell Distribution Width 18.6 % (11.5-14.5); White Blood Count 16.5 K/mm3 (4.5-10.0)
[2022-09-26 19:01] LABS: Influenza A QL RT-PCR Negative (Negative); Influenza B QL RT-PCR Negative (Negative); SARS-CoV-2 RNA PCR Negative
[2022-09-26 19:01] LABS: Hemoglobin 6.7 g/dL (14.0-18.0)
[2022-09-26 19:02] LABS: Add Urine Microscopic? YES; RBC Urine 21-50 /hpf (0-2); WBC Urine >75 /hpf (0-3)
[2022-09-26 19:03] LABS: Bacteria Urine 4+ /hpf; Squamous Epithelial Cell Urine Few /hpf (Few); WBC Clumps Urine Present /hpf
[2022-09-26 19:07] LABS: Alanine Aminotransferase 16 U/L (6-50); Albumin Level 2.9 g/dL (3.5-5.1); Alkaline Phosphatase 102 U/L (38-126); Anion Gap 16 mmol/L (8-16); Aspartate Amino Transferase 42 U/L (17-59); Bilirubin,Total 0.4 mg/dL (0.2-1.3); Blood Urea Nitrogen 28 mg/dL (9-20); Calcium 8.3 mg/dL (8.4-10.2); Carbon Dioxide 27 mmol/L (22-30); Chloride 97 mmol/L (98-107); Estimated Glomerular Filt Rate 30; Glucose 121 mg/dL (65-110); Potassium 4.1 mmol/L (3.4-5.0); Sodium 140 mmol/L (137-145)
[2022-09-26 19:24] LABS: Troponin I 0.066 ng/mL (0.000-0.034)
[2022-09-26 19:35] LABS: INR 1.2; Prothrombin Time 15.1 Seconds (11.1-14.7)
[2022-09-26 19:37] LABS: Partial Thromboplastin Time 45.2 SECONDS (22.3-36.8)
--- NOTE | 2022-09-26 20:06 | PC.NURSE ---
Nurse report to Elisah HEAD at [facility]. All questions answered at this time
[2022-09-26] MEDS: levoFLOXacin 500 MG TABLET PO (21:34)
== END 2022-09-26 22:26 ==
PROVIDERS: Emergency Provider Emergency Medicine; PCP Emergency Medicine
DX: G45.9 Transient cerebral ischemic attack, unspecified (principal); N39.0 Urinary tract infection, site not specified; I13.2 Hypertensive heart and chronic kidney disease with heart failure and with stage 5 chronic kidney disease, or end stage renal disease; E10.22 Type 1 diabetes mellitus with diabetic chronic kidney disease; Z20.822 Contact with and (suspected) exposure to COVID-19; D63.1 Anemia in chronic kidney disease; N18.6 End stage renal disease; I50.9 Heart failure, unspecified; E10.319 Type 1 diabetes mellitus with unspecified diabetic retinopathy without macular edema; E10.21 Type 1 diabetes mellitus with diabetic nephropathy; E10.40 Type 1 diabetes mellitus with diabetic neuropathy, unspecified; I25.10 Atherosclerotic heart disease of native coronary artery without angina pectoris; G61.0 Guillain-Barre syndrome; N25.0 Renal osteodystrophy; I25.2 Old myocardial infarction; N40.0 Benign prostatic hyperplasia without lower urinary tract symptoms; F41.8 Other specified anxiety disorders; Z99.2 Dependence on renal dialysis; Z95.1 Presence of aortocoronary bypass graft; Z89.612 Acquired absence of left leg above knee; Z89.511 Acquired absence of right leg below knee; F17.210 Nicotine dependence, cigarettes, uncomplicated; Z79.4 Long term (current) use of insulin; Z79.82 Long term (current) use of aspirin; Z79.02 Long term (current) use of antithrombotics/antiplatelets; R94.31 Abnormal electrocardiogram [ECG] [EKG]
CPT/HCPCS: 36415; 70450; 71045; 80053; 81001; 84484; 85025; 85610; 85730; 87086; 87088; 87636; 93005; 99284; A9270

== ENCOUNTER 2022-09-27 19:10 | Inpatient (IN) | payer OTHER, SELFPAY ==
[2022-09-27] VITALS (17 sets, daily range): BP systolic 161–176; BP diastolic 72–78; PULSE 97–103; RESP 12–19; TEMP 37.2; O2SAT 96–100
[2022-09-27 19:58] LABS: Basophils Absolute Auto 0.1 K/mm3 (0.0-0.1); Basophils Percent Auto 0.3 % (0.2-1.2); Eosinophils Percent Auto 0.1 % (0-4.4); Hematocrit 22.7 % (42.0-52.0); Immature Granulocyte Absolute 0.11 K/mm3 (0.00-0.031); Immature Granulocyte Percent A 0.6 % (0-0.5); Lymphocytes Absolute Auto 0.78 K/mm3 (0.9-3.2); Lymphocytes Percent Auto 4.2 % (18.3-44.2); Mean Corpuscular Hemoglobin 27.6 pg (26-34); Mean Corpuscular Volume 92.3 fl (80-100); Mean Platelet Volume 9.5 fl (7.4-10.4); Monocytes Absolute Auto 0.9 K/mm3 (0.1-0.6); Monocytes Percent Auto 4.8 % (2.6-8.5); Neutrophils Absolute Auto 16.9 K/mm3 (1.3-6.7); Platelet Count Result 683 k/mm3 (150-375); Red Blood Count 2.46 M/mm3 (4.6-6.20); Red Cell Distribution Width 18.3 % (11.5-14.5); White Blood Count 18.8 K/mm3 (4.5-10.0)
[2022-09-27 20:08] LABS: INR 1.3
[2022-09-27 20:09] LABS: Alanine Aminotransferase 15 U/L (6-50); Albumin Level 2.8 g/dL (3.5-5.1); Alkaline Phosphatase 121 U/L (38-126); Anion Gap 15 mmol/L (8-16); Aspartate Amino Transferase 30 U/L (17-59); Bilirubin,Total 0.5 mg/dL (0.2-1.3); Blood Urea Nitrogen 48 mg/dL (9-20); Calcium 8.5 mg/dL (8.4-10.2); Carbon Dioxide 21 mmol/L (22-30); Chloride 99 mmol/L (98-107); Estimated Glomerular Filt Rate 19; Glucose 292 mg/dL (65-110); Partial Thromboplastin Time 46.4 SECONDS (22.3-36.8); Potassium 4.8 mmol/L (3.4-5.0); Sodium 135 mmol/L (137-145)
--- NOTE | 2022-09-27 20:18 | PC.NURSE ---
patient removed iv per self at this time.
[2022-09-27 20:30] LABS: Hemoglobin 6.8 g/dL (14.0-18.0)
[2022-09-27 20:33] LABS: Hypochromasia 2+ (NORMAL); Platelet Estimate Increased (Adequate)
[2022-09-27 20:34] LABS: Anisocytosis 2+ (NORMAL); Schistocytes None Seen (NORMAL)
--- NOTE | 2022-09-27 21:08 | ED.AMS ---
HPI - Altered Mental Status General Chief Complaint: Altered Mental Status Stated Complaint: AMS Time Seen by Provider: 09/27/22 19:22 History of Present Illness HPI narrative: Patient is a 57-year-old male with a history of hypertension, diabetes, left AKA, right AKA with wound infections presenting with altered mental status. Patient was seen here yesterday with similar complaints. He was diagnosed with a UTI and discharged to his nursing facility. Patient's family states that since he returned to his nursing facility he has not received any antibiotics. His family is concerned that they have not been taking care of him. His family visited today and noticed that he was altered. States that he was saying very strange things. Currently, patient denies complaints. He is responding appropriately at this time. He denies headache, chest pain, shortness of breath, abdominal pain, vomiting. Patient has a chronic Baptiste catheter as well as a colostomy. Related Data Home Medications Medication Instructions Recorded Confirmed vitamin B complex-vitamin C-folic 1 tablet PO DAILY 07/23/20 09/28/22 acid 0.8 mg tablet (Dang-Nilsa) ropinirole 0.25 mg tablet 0.25 mg PO HS 01/11/21 09/28/22 ticagrelor 60 mg tablet (Brilinta) 60 mg PO BID 06/23/22 09/29/22 albuterol sulfate 90 mcg/actuation 1 puff inhalation Q6H PRN 07/09/22 09/28/22 aerosol inhaler Shortness Of Breath aspirin 81 mg tablet 81 mg PO DAILY 07/09/22 09/28/22 cholecalciferol (vitamin D3) 25 25 mcg PO DAILY 07/09/22 09/28/22 mcg (1,000 unit) tablet (Vitamin D3) magnesium hydroxide 400 mg/5 mL 30 ml PO HS PRN Constipation 07/28/22 09/28/22 oral suspension (Milk of Magnesia) omeprazole 20 mg capsule,delayed 20 mg PO DAILY 07/28/22 09/28/22 release cyanocobalamin (vitamin B-12) 1,000 mcg PO DAILY 08/25/22 09/28/22 1,000 mcg capsule vitamin B complex 1 cap PO DAILY 08/25/22 09/28/22 Adults Multivitamin 1 tab-cap PO DAILY 09/28/22 09/28/22 amino acids-protein hydrolysate 17 1 ea PO TID 09/28/22 09/28/22 gram-100 kcal/30 mL oral liquid (Pro-Stat AWC) ascorbic acid (vitamin C) 500 mg 500 mg PO DAILY 09/28/22 09/28/22 chewable tablet insulin detemir U-100 100 unit/mL 15 unit subcut BID 09/28/22 09/28/22 (3 mL) subcutaneous pen (Levemir FlexTouch U-100 Insulin) Allergies Allergy/AdvReac Type Severity Reaction Status Date / Time scopolamine Allergy Severe Unresponsiv Verified 09/26/22 16:52 e Review of Systems Review of Systems: All systems reviewed & are unremarkable except as noted in HPI and below PMFSH Past Medical History Medical History Acute respiratory failure with hypoxia Amputation above knee Anemia Anemia Anxiety Benign prostatic hyperplasia Bradycardic cardiac arrest (~07/23/20) In the setting of severe hyperkalemia, acute pulmonary edema, and respiratory failure CHF (congestive heart failure) Chronic anemia Chronic kidney failure Congestive heart failure Echo 03/06/2021 1. Complete two-dimensional, color flow and Doppler transthoracic echocardiogram is performed. 2. Left ventricular chamber dimension is mildly enlarged. 3. Left ventricular systolic function is mildly reduced, estimated at 55-60%. 4. There is severely increased left ventricular wall thickness. Speckled appearance of the myocardium. 5. The left ventricular diastolic function is grade I diastolic dysfunction. 6. Left atrial chamber dimension is mildly enlarged. 7. There is moderate aortic valve sclerosis. 8. The mitral valve annulus is severely calcified. 9. There is mild mitral valve regurgitation. 10. The mitral valve has thickened leaflets. 11. There is mild tricuspid valve regurgitation. 12. There is mild pulmonic regurgitation. Coronary artery disease With non STEMI in December 2019, with stent placed to the LAD. Depression with anxiety Diabetic ketoacidosis DVT prophylaxis Elevate
[2022-09-27 21:25] LABS: Influenza A QL RT-PCR Negative (Negative); Influenza B QL RT-PCR Negative (Negative); SARS-CoV-2 RNA PCR Negative
--- NOTE | 2022-09-27 21:41 | PC.NURSE ---
per provider ok for patient to have oral medications and fluids no iv at this time will admit and have iv team see in am for further access if needed
[2022-09-27] MEDS: CEPHALEXIN 500 MG CAPSULE PO (21:47)
--- NOTE | 2022-09-27 22:35 | PM.IMHP ---
H&P: HPI History of Present Illness Date/Time: 09/27/22 22:35 Chief Complaint: 57 years old male with past medical history of ESRD on hemodialysis diabetes mellitus recurrent UTI exposed bone of the right BKA history of left AKA history of colostomy was recently admitted to the hospital for infected wounds after having gone two weeks without wound care. Treated with Vancomycin and zosyn on 08/25/22 had debridement and washout of stage IV sacral decubitus ulcer, left decubitus ischial ulcer and left hip ulcer.? 08/28/22 had bedside debridement of sacral decubitus and distal below the knee stump. 08/30/22 had debridement of skin, subcutaneous tissue and necrotic muscle of the right BKA and laparoscopic creation of end colostomy patient was discharged to [facility] patient came yesterday to the ER was found to have possible UTI was discharged on oral antibiotics patient altered mental status continued to worsen family decided to bring the patient to the hospital for further evaluation and treatment patient has recent UTI secondary to ESBL sensitive to Zosyn pending urine culture patient also has history of anemia of chronic disease hemoglobin today 6.8 will give 1 unit blood transfusion Review of Systems Review of Systems: Twelve system review negative except above [facility] Past Medical History Medical History Acute respiratory failure with hypoxia Amputation above knee Anemia Anemia Anxiety Benign prostatic hyperplasia Bradycardic cardiac arrest (~07/23/20) In the setting of severe hyperkalemia, acute pulmonary edema, and respiratory failure CHF (congestive heart failure) Chronic anemia Chronic kidney failure Congestive heart failure Echo 03/06/2021 1. Complete two-dimensional, color flow and Doppler transthoracic echocardiogram is performed. 2. Left ventricular chamber dimension is mildly enlarged. 3. Left ventricular systolic function is mildly reduced, estimated at 55-60%. 4. There is severely increased left ventricular wall thickness. Speckled appearance of the myocardium. 5. The left ventricular diastolic function is grade I diastolic dysfunction. 6. Left atrial chamber dimension is mildly enlarged. 7. There is moderate aortic valve sclerosis. 8. The mitral valve annulus is severely calcified. 9. There is mild mitral valve regurgitation. 10. The mitral valve has thickened leaflets. 11. There is mild tricuspid valve regurgitation. 12. There is mild pulmonic regurgitation. Coronary artery disease With non STEMI in December 2019, with stent placed to the LAD. Depression with anxiety Diabetic ketoacidosis DVT prophylaxis Elevated lipase Elevated troponin Employs prosthetic leg End-stage renal disease on hemodialysis Erythropoietin deficiency anemia Gastric ulcer On endoscopy per Dr. Pacheco in June 2020. Gastroesophageal reflux disease Guillain-[place] Hyperkalemia Hypertension Hypertensive urgency Leukocytosis Nausea & vomiting Noncompliance Pneumonia Pulmonary edema Renal osteodystrophy Seizure Secondary to hypoglycemia. Smoking ST elevation myocardial infarction (STEMI) (~06/26/20) Secondary to abrupt stent thrombosis of the LAD. Tobacco dependence Type 1 diabetes mellitus Diagnosed at the age of 10. Complicated by retinopathy, nephropathy, and neuropathy. Hemoglobin A1c was 7.6% in July 2020. Upper GI bleed Vitamin D deficiency disease Weakness Surgical History Surgical History History of endoscopy (~06/27/20) History of femoropopliteal bypass 02/04/21 left common femoral endarterectomy with left femoral to below-knee popliteal artery bypass History of heart artery stent Stent in the LAD in December 2019. Patient had abrupt stent thrombosis of the previously placed stent to the LAD on June 26, 2020 left coronary with extraction thrombectomy and stenting distal to the original stent w
--- NOTE | 2022-09-27 22:55 | PC.NURSE ---
Phlebotomy called to obtain blood cultures
[2022-09-28] VITALS (28 sets, daily range): BP systolic 129–165; BP diastolic 39–84; PULSE 81–101; RESP 16–20; TEMP 36–37.1; O2SAT 96–100; BMI 34.2
--- NOTE | 2022-09-28 01:00 | PC.NURSE ---
patient colostomy bag changed per tech at this time
--- NOTE | 2022-09-28 01:52 | ADMGEN ---
This patient, Ish Corley, was admitted to 2 Medical Room 260-. Patient/family oriented to hospital policies and general routines including ID bracelet, bed and alarms, visiting hours, pain management, procedures, bathroom and other care routines, personal items, smoking policy, room service/diet, and visiting hours. Information on how to activate the Rapid Response Team has been discussed. Patient/Family are encouraged to report perceived risks to care and to ask questions if they do not understand what they are told or what they should do.
[2022-09-28 02:25] LABS: Glucose Point of Care 367 mg/dl (65-105)
[2022-09-28] MEDS: PLEASE ENTER HEIGHT AND WEIGHT 1 EACH XX (04:12)
[2022-09-28 05:38] LABS: Basophils Absolute Auto 0.1 K/mm3 (0.0-0.1); Basophils Percent Auto 0.3 % (0.2-1.2); Eosinophils Absolute Auto 0.1 K/mm3 (0-0.3); Eosinophils Percent Auto 0.3 % (0-4.4); Hematocrit 23.8 % (42.0-52.0); Immature Granulocyte Absolute 0.13 K/mm3 (0.00-0.031); Immature Granulocyte Percent A 0.7 % (0-0.5); Lymphocytes Absolute Auto 1.18 K/mm3 (0.9-3.2); Mean Corpuscular HGB Conc 29.8 g/dl (32-36); Mean Corpuscular Volume 90.5 fl (80-100); Mean Platelet Volume 9.2 fl (7.4-10.4); Monocytes Absolute Auto 0.9 K/mm3 (0.1-0.6); Monocytes Percent Auto 4.6 % (2.6-8.5); Neutrophils Absolute Auto 17.3 K/mm3 (1.3-6.7); Neutrophils Percent Auto 88.1 % (45.5-73.1); Platelet Count Result 747 k/mm3 (150-375); Red Blood Count 2.63 M/mm3 (4.6-6.20); Red Cell Distribution Width 18.3 % (11.5-14.5); White Blood Count 19.7 K/mm3 (4.5-10.0)
[2022-09-28 06:02] LABS: Hemoglobin 7.1 g/dL (14.0-18.0); Platelet Estimate Increased (Adequate)
[2022-09-28 06:03] LABS: Anisocytosis 1+ (NORMAL); Burr Cells 1+ (NORMAL); Ovalocytes 2+ (NORMAL); Poikilocytosis 1+ (NORMAL); Schistocytes 1+ (NORMAL)
[2022-09-28 06:09] LABS: Alanine Aminotransferase 14 U/L (6-50); Albumin Level 2.8 g/dL (3.5-5.1); Alkaline Phosphatase 157 U/L (38-126); Anion Gap 23 mmol/L (8-16); Aspartate Amino Transferase 23 U/L (17-59); Bilirubin,Total 0.5 mg/dL (0.2-1.3); Blood Urea Nitrogen 48 mg/dL (9-20); Calcium 8.8 mg/dL (8.4-10.2); Carbon Dioxide 18 mmol/L (22-30); Chloride 92 mmol/L (98-107); Estimated Glomerular Filt Rate 16; Glucose 447 mg/dL (65-110); Lactic Acid Reflex 0.8 mmol/L (0.7-2.0); Potassium 4.5 mmol/L (3.4-5.0); Sodium 133 mmol/L (137-145)
[2022-09-28 06:41] LABS: Hepatitis B Surface Antigen Negative (Negative)
[2022-09-28 06:59] LABS: Hepatitis B Surface Anti Res Positive
[2022-09-28] MEDS: HEPARIN SODIUM 5,000 UNITS/ML VIAL 5000 UNITS SUB-Q ×2 (08:14→20:20)
[2022-09-28] MEDS: FAMOTIDINE 20 MG TABLET PO ×2 (08:15→20:21)
[2022-09-28 09:10] LABS: Glucose Point of Care 441 mg/dl (65-105)
--- NOTE | 2022-09-28 09:21 | PM.CNGS ---
Assessment and Plan Assessment and plan (1) Sepsis: Code(s): A41.9 - Sepsis, unspecified organism Status: Acute Assessment and Plan: multifactorial, agree c broad spectrum abx, supportive care (2) Decubitus ulcer of sacral area: Code(s): L89.159 - Pressure ulcer of sacral region, unspecified stage Status: Chronic Assessment and Plan: wound care c [place], abx (3) Complication of below knee amputation stump: Code(s): T87.9 - Unspecified complications of amputation stump Status: Chronic Assessment and Plan: wound care c [place], abx, likely needs revision but needs to see vascular surgeon to address blood flow to extremity prior to further amputation History of Present Illness Consult details Consult date: 09/28/22 Reason for consult: wound care Requesting physician: Deborah Foster M.A., MD Narrative: Pt is a 57 y/o M well known to the surgical service for chronic wounds presenting to the hospital for sepsis, MS changes. Pt reports he has not felt well over last wk or so. Pt was seen in ED a few days ago and dx'd c UTI. Pt was to f/u c vascular surgeon but reports he has not at this point. Review of Systems Review of Systems: ROS unobtainable: Yes unobtainable due to medical condition and unobtainable due to mental status PMFSH Past Medical History Medical History Acute respiratory failure with hypoxia Amputation above knee Anemia Anemia Anxiety Benign prostatic hyperplasia Bradycardic cardiac arrest (~07/23/20) In the setting of severe hyperkalemia, acute pulmonary edema, and respiratory failure CHF (congestive heart failure) Chronic anemia Chronic kidney failure Congestive heart failure Echo 03/06/2021 1. Complete two-dimensional, color flow and Doppler transthoracic echocardiogram is performed. 2. Left ventricular chamber dimension is mildly enlarged. 3. Left ventricular systolic function is mildly reduced, estimated at 55-60%. 4. There is severely increased left ventricular wall thickness. Speckled appearance of the myocardium. 5. The left ventricular diastolic function is grade I diastolic dysfunction. 6. Left atrial chamber dimension is mildly enlarged. 7. There is moderate aortic valve sclerosis. 8. The mitral valve annulus is severely calcified. 9. There is mild mitral valve regurgitation. 10. The mitral valve has thickened leaflets. 11. There is mild tricuspid valve regurgitation. 12. There is mild pulmonic regurgitation. Coronary artery disease With non STEMI in December 2019, with stent placed to the LAD. Depression with anxiety Diabetic ketoacidosis DVT prophylaxis Elevated lipase Elevated troponin Employs prosthetic leg End-stage renal disease on hemodialysis Erythropoietin deficiency anemia Gastric ulcer On endoscopy per Dr. Pacheco in June 2020. Gastroesophageal reflux disease Guillain-[place] Hyperkalemia Hypertension Hypertensive urgency Leukocytosis Nausea & vomiting Noncompliance Pneumonia Pulmonary edema Renal osteodystrophy Seizure Secondary to hypoglycemia. Smoking ST elevation myocardial infarction (STEMI) (~06/26/20) Secondary to abrupt stent thrombosis of the LAD. Tobacco dependence Type 1 diabetes mellitus Diagnosed at the age of 10. Complicated by retinopathy, nephropathy, and neuropathy. Hemoglobin A1c was 7.6% in July 2020. Upper GI bleed Vitamin D deficiency disease Weakness Surgical History Surgical History History of endoscopy (~06/27/20) History of femoropopliteal bypass 02/04/21 left common femoral endarterectomy with left femoral to below-knee popliteal artery bypass History of heart artery stent Stent in the LAD in December 2019. Patient had abrupt stent thrombosis of the previously placed stent to the LAD on June 26, 2020 left coronary with extraction thrombectomy and stenting
[2022-09-28] MEDS: INSULIN ASPART (*BKC) 100 UNITS/ML 12 UNITS SUB-Q ×2 (09:36→13:08)
--- NOTE | 2022-09-28 11:02 | PM.IMPN ---
Progress Note: A&P Assessment and Plan (1) Complication of below knee amputation stump: Code(s): T87.9 - Unspecified complications of amputation stump Status: Chronic Assessment and Plan: Patient has exposed stump Has recent debridement Will get surgery re-evaluate Probable chronic osteomyelitis will continue antibiotics for now. Patient needs to be evaluated by his vascular surgeon. This is not emergent. (2) Status post colostomy: Code(s): Z93.3 - Colostomy status Status: Acute Assessment and Plan: Monitor patient has brown stool no evidence of melena (3) Hypertension: Code(s): I10 - Essential (primary) hypertension Status: Acute Assessment and Plan: Pending home medication reconciliation (4) Decubitus ulcer of sacral area: Code(s): L89.159 - Pressure ulcer of sacral region, unspecified stage Status: Chronic Assessment and Plan: Wound care consult surgery consult status post recent debridement (5) IDDM (insulin dependent diabetes mellitus): Status: Chronic Assessment and Plan: Insulin sliding scale (6) Anemia: Code(s): D64.9 - Anemia, unspecified Status: Chronic Assessment and Plan: Acute worsening of chronic anemia most likely anemia of chronic disease transfuse to keep hemoglobin above 7 (7) ESRD (end stage renal disease): Code(s): N18.6 - End stage renal disease Status: Chronic Assessment and Plan: Urology consult (8) Altered mental status: Code(s): R41.82 - Altered mental status, unspecified Status: Acute Assessment and Plan: Multifactorial probably related to UTI renal failure Improved Continue IV antibiotics Nephrology consult for dialysis (9) Erythropoietin deficiency anemia: Code(s): D63.1 - Anemia in chronic kidney disease Status: Acute Assessment and Plan: As above (10) CHF (congestive heart failure): Qualifiers: Heart failure chronicity: unspecified Heart failure type: unspecified Qualified Code(s): I50.9 - Heart failure, unspecified Code(s): I50.9 - Heart failure, unspecified Status: Acute Assessment and Plan: Euvolemic continue dialysis (11) UTI (urinary tract infection): Code(s): N39.0 - Urinary tract infection, site not specified Status: Acute Assessment and Plan: Patient has history of ESBL Continue Zosyn Follow culture results Subjective Date/time seen: 09/28/22 11:02 no new complaints Exam Narrative: GENERAL: Well appearing, well-nourished, non-toxic, in no acute distress. HEAD: Normocephalic, atraumatic. NECK: Supple. No adenopathy, no masses. RESPIRATORY: Airway patent, respirations nonlabored. Clear to auscultation bilaterally, no rales, rhonchi, wheezing. CARDIOVASCULAR: Regular rate and rhythm without murmurs, rubs, or gallops. Peripheral pulses 2+ and equal bilaterally. ABDOMINAL: Soft, nontender, nondistended, no hepatosplenomegaly. Normoactive BS. MUSCULOSKELETAL: Right BKA in dressing decubitus ulcer SKIN: Warm, dry, normal color. No rashes. NEURO: A&O X3. Moves all extremities PSYCHIATRIC: Appropriate mood and affect. Normal interaction. Objective Data Vital Signs Vital Signs: Vital Signs - 24 hr 09/27/22 19:08 09/27/22 20:44 09/27/22 20:45 Temperature 98.9 F Pulse Rate 97 103 H 103 H Respiratory Rate 12 19 15 Blood Pressure 162/72 H 176/78 H Pulse Oximetry 97 97 96 Oxygen Delivery Room Air 09/27/22 20:55 09/27/22 21:00 09/27/22 21:15 Temperature Pulse Rate 101 H 101 H 99 Respiratory Rate 15 Blood Pressure Pulse Oximetry Oxygen Delivery 09/27/22 21:30 09/27/22 21:45 09/27/22 22:00 Temperature Pulse Rate 101 H 101 H 102 H Respiratory Rate Blood Pressure Pulse Oximetry 100 96 Oxygen Delivery 09/27/22 22:17 09/27/22 22:20 09/27/22 22:30 Temperature Pulse Rate 101 H 100 97 Respira
--- NOTE | 2022-09-28 12:04 | PCPTNOTE ---
Pt dependent at baseline. Hospitalist called and agreeable to Discharge of therapy orders due to pt being at baseline at this time. cancer program coordinator and RN aware.
[2022-09-28 12:32] LABS: Glucose Point of Care > 500 mg/dl (65-105)
--- NOTE | 2022-09-28 12:59 | PCOTNOTE ---
Pt dependent at baseline. Hospitalist called and agreeable to Discharge of therapy orders due to pt being at baseline at this time. online program coordinator and RN aware.
[2022-09-28] MEDS: TOLNAFTATE 1% POWDER 45 GM BTL 1 APPLIC TOPICAL ×2 (13:53→20:23)
[2022-09-28] MEDS: SOD HYPOCHLORITE 1/4 STRENGTH 473 ML 1 APPLIC TOPICAL ×2 (13:54→20:23)
--- NOTE | 2022-09-28 14:38 | PC.NURSE ---
Patient's dressing changed and is being transported to dialysis at this time.
--- NOTE | 2022-09-28 15:07 | PM.CNNEP ---
Assessment and Plan Assessment and plan (1) ESRD (end stage renal disease): Code(s): N18.6 - End stage renal disease Status: Chronic Assessment and Plan: HD today to maintain Mon/Mon/Mon/ dialysis schedule follow electrolytes, volume status, and clearance (2) Altered mental status: Code(s): R41.82 - Altered mental status, unspecified Status: Acute Assessment and Plan: resolving due to UTI(?) follow mentation (3) Complication of below knee amputation stump: Code(s): T87.9 - Unspecified complications of amputation stump Status: Chronic Assessment and Plan: exposed stump noted possible osteomyelitis likely needs vascular assessment prior to any surgical intervention empiric IV antibiotics pending surgery evaluation (4) Decubitus ulcer of sacral area: Code(s): L89.159 - Pressure ulcer of sacral region, unspecified stage Status: Chronic Assessment and Plan: Wound care and surgery consulted unclear if any further intervention required (5) Anemia: Code(s): D64.9 - Anemia, unspecified Status: Chronic Assessment and Plan: H/H lower than basline suspect due to recent hospitalizations, surgeries/debridements, and epogen resistance PRBC transfusion per protocol Epogen with HD follow H/H (6) UTI (urinary tract infection): Code(s): N39.0 - Urinary tract infection, site not specified Status: Acute Assessment and Plan: IV antibiotics follow-up on culture results (7) IDDM (insulin dependent diabetes mellitus): Status: Chronic Assessment and Plan: follow accuchecks glycemic control Will continue to follow. History of Present Illness Reason for Consult Consult date: 09/28/22 Reason for consult: end stage renal disease Chief Complaint Chief complaint: failure to thrive History of Present Illness Narrative: The patient is a 56-year-old male with extensive past medical history as outlined below who presented to [facility] Emergency room from his nursing facility for further evaluation of altered mental status. The patient was just recently seen in the emergency room for the same issues/problems. There was initial concern for possible CVA but imaging done at that time in the emergency room did not demonstrate this. Given his given his extensive history of vascular disease, was more likely that he probably had a TIA but he is already on maximal medical therapy with regard to aspirin and Plavix for his extensive vascular disease and cardiovascular disease. His urinalysis on that you ER visit was significant for urinary tract infection although it should be noted that the urine sample was collected from a Baptiste bag that had been in place for a significant period of time. He was prescribed oral antibiotic therapy and subsequent discharge back to his nursing facility He returns today at the behest of his family do the concerns for ongoing altered mental status / confusion workup and evaluation in the emergency room demonstrated labs consistent with his known history of end-stage renal disease although his hemoglobin was somewhat lower than baseline. His mentation at the time of his visit to the ER seem to be doing somewhat better. However, given his complex medical history as well as the issues and events in the last few days, he was admitted the hospital for further evaluation and therapy. Renal consultation was requested due to his end-stage renal disease. The patient is quite familiar to me as I have taking care of him multiple times before with regard to his previous hospitalizations at [facility]. The patient normally dialyzes on a Monday, Monday, Monday, dialysis schedule under the care of Dr. Luke Huynh at [facility]. His last dialysis treatment was on Monday (09/26/22). He is currently receiving dialysis at the time of my visit
--- NOTE | 2022-09-28 15:25 | PC.NURSE ---
On 09/28/22, the student, [Haley Esparza], provided care and completed [facility] documentation on this patient. I have reviewed the student's documentation and agree with the findings.
[2022-09-28] MEDS: INSULIN GLARGINE (*BKC) 100 UNITS/ML 15 UNITS SUB-Q (17:11)
[2022-09-28] MEDS: INSULIN ASPART (*BKC) 100 UNITS/ML SUB-Q (17:14)
[2022-09-28 17:25] LABS: Glucose Point of Care 341 mg/dl (65-105)
[2022-09-28 21:08] LABS: Glucose Point of Care 364 mg/dl (65-105)
[2022-09-29] VITALS (15 sets, daily range): BP systolic 128–177; BP diastolic 51–78; PULSE 77–104; RESP 16–18; TEMP 36.4–37.3; O2SAT 99–100; BMI 36.5
[2022-09-29] MEDS: LORazepam (*CRX) 1 MG TABLET PO (01:35)
[2022-09-29] MEDS: HYDROcodone/acetaminophen (*CRX) 5-325 MG TABLET 1 TAB PO (01:37)
[2022-09-29 06:49] LABS: Basophils Percent Auto 0.3 % (0.2-1.2); Eosinophils Absolute Auto 0.1 K/mm3 (0-0.3); Eosinophils Percent Auto 0.7 % (0-4.4); Hematocrit 21.3 % (42.0-52.0); Immature Granulocyte Absolute 0.11 K/mm3 (0.00-0.031); Immature Granulocyte Percent A 0.7 % (0-0.5); Lymphocytes Absolute Auto 1.35 K/mm3 (0.9-3.2); Lymphocytes Percent Auto 8.7 % (18.3-44.2); Mean Corpuscular HGB Conc 29.1 g/dl (32-36); Mean Corpuscular Hemoglobin 27.3 pg (26-34); Mean Corpuscular Volume 93.8 fl (80-100); Mean Platelet Volume 9.6 fl (7.4-10.4); Monocytes Absolute Auto 0.7 K/mm3 (0.1-0.6); Monocytes Percent Auto 4.7 % (2.6-8.5); Neutrophils Absolute Auto 13.3 K/mm3 (1.3-6.7); Neutrophils Percent Auto 84.9 % (45.5-73.1); Platelet Count Result 554 k/mm3 (150-375); Red Blood Count 2.27 M/mm3 (4.6-6.20); Red Cell Distribution Width 17.9 % (11.5-14.5); White Blood Count 15.6 K/mm3 (4.5-10.0)
[2022-09-29 07:06] LABS: Alanine Aminotransferase 12 U/L (6-50); Albumin Level 2.5 g/dL (3.5-5.1); Alkaline Phosphatase 108 U/L (38-126); Anion Gap 15 mmol/L (8-16); Aspartate Amino Transferase 19 U/L (17-59); Bilirubin,Total 0.2 mg/dL (0.2-1.3); Blood Urea Nitrogen 26 mg/dL (9-20); Calcium 8.4 mg/dL (8.4-10.2); Carbon Dioxide 26 mmol/L (22-30); Chloride 94 mmol/L (98-107); Estimated Glomerular Filt Rate 30; Glucose 291 mg/dL (65-110); Potassium 3.7 mmol/L (3.4-5.0); Sodium 135 mmol/L (137-145)
[2022-09-29 08:24] LABS: Glucose Point of Care 278 mg/dl (65-105)
[2022-09-29] MEDS: ASPIRIN 81 MG CHEWABLE TABLET PO (08:27)
[2022-09-29] MEDS: SERTRALINE HCL 50 MG TABLET 100 MG PO (08:28)
[2022-09-29] MEDS: FAMOTIDINE 20 MG TABLET PO ×2 (08:28→20:10)
[2022-09-29] MEDS: PANTOPRAZOLE 40 MG TABLET PO ×2 (08:28→20:10)
[2022-09-29] MEDS: NICOTINE (*PBKC) 21 MG PATCH 1 PATCH TRANSDERM (08:28)
[2022-09-29] MEDS: GABAPENTIN 300 MG CAPSULE PO (08:29)
[2022-09-29] MEDS: ATORVASTATIN 40 MG TABLET 80 MG PO (08:29)
[2022-09-29] MEDS: VITAMIN B CMPLX/VIT C/FOLIC AC 1 CAPSULE 1 CAP PO (08:29)
[2022-09-29] MEDS: CYANOCOBALAMIN 1,000 MCG TABLET 1000 MCG PO (08:29)
[2022-09-29] MEDS: ASCORBIC ACID 500 MG TABLET PO (08:29)
[2022-09-29] MEDS: CHOLECALCIFEROL 1,000 UNITS TABLET 1000 UNITS PO (08:29)
[2022-09-29] MEDS: INSULIN GLARGINE (*BKC) 100 UNITS/ML 15 UNITS SUB-Q (08:30)
[2022-09-29] MEDS: HEPARIN SODIUM 5,000 UNITS/ML VIAL 5000 UNITS SUB-Q ×2 (08:30→20:10)
[2022-09-29] MEDS: INSULIN ASPART (*BKC) 100 UNITS/ML SUB-Q ×3 (08:55→17:39)
[2022-09-29 08:56] LABS: Hemoglobin 6.2 g/dL (14.0-18.0)
[2022-09-29 08:57] LABS: Crenated RBC 1+ (NORMAL); Hypochromasia 2+ (NORMAL); Ovalocytes 1+ (NORMAL); Platelet Estimate Increased (Adequate); Target Cells 1+ (NORMAL)
[2022-09-29 08:58] LABS: Schistocytes None Seen (NORMAL)
--- NOTE | 2022-09-29 10:34 | PM.IMPN ---
Progress Note: A&P Assessment and Plan (1) Complication of below knee amputation stump: Code(s): T87.9 - Unspecified complications of amputation stump Status: Chronic Assessment and Plan: Patient has exposed stump Has recent debridement Will get surgery re-evaluate Probable chronic osteomyelitis will continue antibiotics for now. Patient needs to be evaluated by his vascular surgeon. This is not emergent. (2) Status post colostomy: Code(s): Z93.3 - Colostomy status Status: Acute Assessment and Plan: Monitor patient has brown stool no evidence of melena (3) Hypertension: Code(s): I10 - Essential (primary) hypertension Status: Acute Assessment and Plan: Pending home medication reconciliation (4) Decubitus ulcer of sacral area: Code(s): L89.159 - Pressure ulcer of sacral region, unspecified stage Status: Chronic Assessment and Plan: Wound care consult surgery consult status post recent debridement (5) IDDM (insulin dependent diabetes mellitus): Status: Chronic Assessment and Plan: Insulin sliding scale (6) Anemia: Code(s): D64.9 - Anemia, unspecified Status: Chronic Assessment and Plan: Acute worsening of chronic anemia most likely anemia of chronic disease transfuse to keep hemoglobin above 7 (7) ESRD (end stage renal disease): Code(s): N18.6 - End stage renal disease Status: Chronic Assessment and Plan: Urology consult (8) Altered mental status: Code(s): R41.82 - Altered mental status, unspecified Status: Acute Assessment and Plan: Multifactorial probably related to UTI renal failure Improved Continue IV antibiotics Nephrology consult for dialysis (9) Erythropoietin deficiency anemia: Code(s): D63.1 - Anemia in chronic kidney disease Status: Acute Assessment and Plan: transfuse as needed (10) CHF (congestive heart failure): Qualifiers: Heart failure chronicity: unspecified Heart failure type: unspecified Qualified Code(s): I50.9 - Heart failure, unspecified Code(s): I50.9 - Heart failure, unspecified Status: Acute Assessment and Plan: Euvolemic continue dialysis (11) UTI (urinary tract infection): Code(s): N39.0 - Urinary tract infection, site not specified Status: Acute Assessment and Plan: Patient has history of ESBL Continue Zosyn Follow culture results Subjective Date/time seen: 09/29/22 10:34 No new complaints Exam Narrative: GENERAL: Well appearing, well-nourished, non-toxic, in no acute distress. HEAD: Normocephalic, atraumatic. NECK: Supple. No adenopathy, no masses. RESPIRATORY: Airway patent, respirations nonlabored. Clear to auscultation bilaterally, no rales, rhonchi, wheezing. CARDIOVASCULAR: Regular rate and rhythm without murmurs, rubs, or gallops. Peripheral pulses 2+ and equal bilaterally. ABDOMINAL: Soft, nontender, nondistended, no hepatosplenomegaly. Normoactive BS. MUSCULOSKELETAL: Right BKA in dressing decubitus ulcer SKIN: Warm, dry, normal color. No rashes. NEURO: A&O X3. Moves all extremities PSYCHIATRIC: Appropriate mood and affect. Normal interaction. Objective Data Vital Signs Vital Signs: Vital Signs - 24 hr 09/28/22 12:00 09/28/22 14:34 09/28/22 14:48 Temperature 98.5 F 97.5 F L Pulse Rate 95 86 86 Respiratory Rate 16 16 Blood Pressure 129/39 L 151/74 H Pulse Oximetry 100 Oxygen Delivery 09/28/22 14:52 09/28/22 15:00 09/28/22 15:15 Temperature Pulse Rate 85 85 Respiratory Rate Blood Pressure 148/78 H 161/80 H 148/77 H Pulse Oximetry Oxygen Delivery 09/28/22 15:30 09/28/22 15:45 09/28/22 16:00 Temperature Pulse Rate 88 83 84 Respiratory Rate Blood Pressure 138/69 141/66 H Pulse Oximetry Oxygen Delivery 09/28/22 16:00 09/28/22 16:15 09/28/22 16:30 Temperature Pulse Rate 83 81
--- NOTE | 2022-09-29 10:55 | PM.PNGS ---
Progress Note: A&P Assessment and Plan (1) Decubitus ulcers: Code(s): L89.90 - Pressure ulcer of unspecified site, unspecified stage Status: Chronic Assessment and Plan: cont local wound care c Dankins solution (2) Complication of below knee amputation stump: Code(s): T87.9 - Unspecified complications of amputation stump Status: Chronic Assessment and Plan: cont local wound care c Dankins solution, will need revision but will need vascular evaluation for poss revasularization (3) Sepsis: Code(s): A41.9 - Sepsis, unspecified organism Status: Acute Assessment and Plan: cont abx, likely multifactorial including UTI Subjective Subjective Date/Time Seen: 09/29/22 10:55 no acute issues overnight, resting comfortable this morning Review of Systems Review of Systems: All systems reviewed & are unremarkable except as noted in HPI and below Exam Const: General: cooperative, comfortable, no acute distress and ill appearing Resp: Auscultation: diminished lung sounds Cardio: Rate: regular rate Rhythm: regular rhythm GI: Inspection: normal to inspection Skin: Other: dressings C/D/I Objective Data Vital Signs Vital Signs: Vital Signs - 24 hr 09/28/22 12:00 09/28/22 14:34 09/28/22 14:48 Temperature 36.9 C 36.4 C L Pulse Rate 95 86 86 Respiratory Rate 16 16 Blood Pressure 129/39 L 151/74 H Pulse Oximetry 100 Oxygen Delivery 09/28/22 14:52 09/28/22 15:00 09/28/22 15:15 Temperature Pulse Rate 85 85 Respiratory Rate Blood Pressure 148/78 H 161/80 H 148/77 H Pulse Oximetry Oxygen Delivery 09/28/22 15:30 09/28/22 15:45 09/28/22 16:00 Temperature Pulse Rate 88 83 84 Respiratory Rate Blood Pressure 138/69 141/66 H Pulse Oximetry Oxygen Delivery 09/28/22 16:00 09/28/22 16:15 09/28/22 16:30 Temperature Pulse Rate 83 81 82 Respiratory Rate Blood Pressure 137/68 150/74 H 160/75 H Pulse Oximetry Oxygen Delivery 09/28/22 16:45 09/28/22 17:00 09/28/22 17:15 Temperature Pulse Rate 81 81 81 Respiratory Rate Blood Pressure 154/75 H 154/74 H 140/62 Pulse Oximetry Oxygen Delivery 09/28/22 17:30 09/28/22 17:45 09/28/22 18:00 Temperature Pulse Rate 84 83 85 Respiratory Rate Blood Pressure 163/74 H 158/81 H 165/79 H Pulse Oximetry Oxygen Delivery 09/28/22 18:12 09/28/22 18:15 09/28/22 20:36 Temperature 36.6 C 37.1 C Pulse Rate 85 86 94 Respiratory Rate 20 16 Blood Pressure 165/84 H 164/84 H 142/74 H Pulse Oximetry 98 Oxygen Delivery 09/28/22 20:00 09/29/22 00:00 09/29/22 06:47 Temperature 36.4 C Pulse Rate 100 86 77 Respiratory Rate 16 Blood Pressure 146/55 H Pulse Oximetry 99 Oxygen Delivery 09/29/22 10:04 09/29/22 10:25 Temperature Pulse Rate Respiratory Rate Blood Pressure Pulse Oximetry Oxygen Delivery Room Air Room Air Intake/Output Intake/Output: Intake & Output 09/26/22 09/27/22 09/28/22 09/29/22 23:59 23:59 23:59 23:59 Intake Total 2775 810 Output Total 2514 450 Balance 261 360 Meds/Results Medications: Active Medications Generic Name Dose Route Start Last Admin Trade Name Freq PRN Reason Stop Dose Admin Acetaminophen 650 mg 09/29/22 00:24 Acetaminophen 325 Mg Tablet PO Q4H PRN Mild Pain (1-3) Or Fever Hydrocodone Bitart/Acetaminophen 1 tab 09/29/22 00:24 09/29/22 01:37 Hydrocodone/Acetaminophen (*Crx) 5-325 Mg Tablet PO 1 tab Q6H PRN Administration Pain Rated 4-6 Albuterol 1 puff 09/29/22 00:24 Albuterol Sulfate (*Sp) Aerosol 1 Puff INHALATION Q6H PRN Shortness Of Breath Ascorbic Acid 500 mg 09/29/22 09:00 09/29/22 08:29 Ascorbic Acid 500 Mg Tablet PO 500 mg DAILY MARTHA Administration Aspirin 81 mg 09/29/22 08:00 09/29/22 08:27 Aspirin 81 Mg Chewable Tablet PO 81 mg DAILY@0800 MARTHA Administration Atorv
[2022-09-29 12:41] LABS: Glucose Point of Care 390 mg/dl (65-105)
--- NOTE | 2022-09-29 12:50 | P.PNNP_ITS ---
Progress Note: A&P Assessment and Plan (1) ESRD (end stage renal disease): Code(s): N18.6 - End stage renal disease Status: Chronic Assessment and Plan: * HD tomorrow to maintain Mon/Mon/Monday dialysis schedule * follow electrolytes, volume status, and clearance (2) Altered mental status: Code(s): R41.82 - Altered mental status, unspecified Status: Acute Assessment and Plan: * resolving * due to UTI(?) * follow mentation (3) Complication of below knee amputation stump: Code(s): T87.9 - Unspecified complications of amputation stump Status: Chronic Assessment and Plan: * exposed stump noted * possible osteomyelitis * likely needs vascular assessment prior to any surgical intervention * empiric IV antibiotics pending surgery evaluation (4) Decubitus ulcer of sacral area: Code(s): L89.159 - Pressure ulcer of sacral region, unspecified stage Status: Chronic Assessment and Plan: * Wound care and surgery consulted * unclear if any further intervention required (5) Anemia: Code(s): D64.9 - Anemia, unspecified Status: Chronic Assessment and Plan: * H/H lower than basline * suspect due to recent hospitalizations, surgeries/debridements, and epogen resistance * PRBC transfusion per protocol * Epogen with HD * follow H/H (6) UTI (urinary tract infection): Code(s): N39.0 - Urinary tract infection, site not specified Status: Acute Assessment and Plan: * IV antibiotics * follow-up on culture results (7) IDDM (insulin dependent diabetes mellitus): Status: Chronic Assessment and Plan: * follow accuchecks * glycemic control Will continue to follow. Subjective Date/time seen: 09/29/22 12:50 Tolerated dialysis treatment yesterday without any issues or problems; remain hemodynamically stable; no apparent distress noted; mentation seems back to baseline. Exam Narrative: General: WD/WN male in NAD Heart: normal S1 and S2; no rub Lungs: clear to auscultation Abdomen: soft, nontender, nondistended, positive bowel sounds Extremities: no cyanosis or clubbing; left AKA and right BKA Skin: dressing in place over wounds Objective Data Vital Signs Vital Signs: Vital Signs Temp Pulse Resp BP Pulse Ox O2 Del Method 09/29/22 11:40 37.1 C 92 16 128/54 L 100 09/29/22 11:12 36.8 C 95 16 129/51 L 100 09/29/22 10:25 Room Air 09/29/22 10:04 Room Air 09/29/22 06:47 36.4 C 77 16 146/55 H 99 09/29/22 00:00 86 09/28/22 20:00 100 09/28/22 20:36 37.1 C 94 16 142/74 H 98 09/28/22 18:15 36.6 C 86 20 164/84 H 09/28/22 18:12 85 165/84 H 09/28/22 18:00 85 165/79 H 09/28/22 17:45 83 158/81 H 09/28/22 17:30 84 163/74 H 09/28/22 17:15 81 140/62 09/28/22 17:00 81 154/74 H 09/28/22 16:45 81 154/75 H 09/28/22 16:30 82 160/75 H 09/28/22 16:15 81 150/74 H 09/28/22 16:00 83 137/68 09/28/22 16:00 84 09/28/22 15:45 83 141/66 H 09/28/22 15:30 88 138/69 09/28/22 15:15 85 148/77 H 09/28/22 15:00 161/80 H 09/28/22 14:52
--- NOTE | 2022-09-29 12:50 | PM.PNNEP ---
Progress Note: A&P Assessment and Plan (1) ESRD (end stage renal disease): Code(s): N18.6 - End stage renal disease Status: Chronic Assessment and Plan: HD tomorrow to maintain Mon/Mon/Monday dialysis schedule follow electrolytes, volume status, and clearance (2) Altered mental status: Code(s): R41.82 - Altered mental status, unspecified Status: Acute Assessment and Plan: resolving due to UTI(?) follow mentation (3) Complication of below knee amputation stump: Code(s): T87.9 - Unspecified complications of amputation stump Status: Chronic Assessment and Plan: exposed stump noted possible osteomyelitis likely needs vascular assessment prior to any surgical intervention empiric IV antibiotics pending surgery evaluation (4) Decubitus ulcer of sacral area: Code(s): L89.159 - Pressure ulcer of sacral region, unspecified stage Status: Chronic Assessment and Plan: Wound care and surgery consulted unclear if any further intervention required (5) Anemia: Code(s): D64.9 - Anemia, unspecified Status: Chronic Assessment and Plan: H/H lower than basline suspect due to recent hospitalizations, surgeries/debridements, and epogen resistance PRBC transfusion per protocol Epogen with HD follow H/H (6) UTI (urinary tract infection): Code(s): N39.0 - Urinary tract infection, site not specified Status: Acute Assessment and Plan: IV antibiotics follow-up on culture results (7) IDDM (insulin dependent diabetes mellitus): Status: Chronic Assessment and Plan: follow accuchecks glycemic control Will continue to follow. Subjective Date/time seen: 09/29/22 12:50 Tolerated dialysis treatment yesterday without any issues or problems; remain hemodynamically stable; no apparent distress noted; mentation seems back to baseline. Exam Narrative: General: WD/WN male in NAD Heart: normal S1 and S2; no rub Lungs: clear to auscultation Abdomen: soft, nontender, nondistended, positive bowel sounds Extremities: no cyanosis or clubbing; left AKA and right BKA Skin: dressing in place over wounds Objective Data Vital Signs Vital Signs: Vital Signs Temp Pulse Resp BP Pulse Ox O2 Del Method 09/29/22 11:40 37.1 C 92 16 128/54 L 100 09/29/22 11:12 36.8 C 95 16 129/51 L 100 09/29/22 10:25 Room Air 09/29/22 10:04 Room Air 09/29/22 06:47 36.4 C 77 16 146/55 H 99 09/29/22 00:00 86 09/28/22 20:00 100 09/28/22 20:36 37.1 C 94 16 142/74 H 98 09/28/22 18:15 36.6 C 86 20 164/84 H 09/28/22 18:12 85 165/84 H 09/28/22 18:00 85 165/79 H 09/28/22 17:45 83 158/81 H 09/28/22 17:30 84 163/74 H 09/28/22 17:15 81 140/62 09/28/22 17:00 81 154/74 H 09/28/22 16:45 81 154/75 H 09/28/22 16:30 82 160/75 H 09/28/22 16:15 81 150/74 H 09/28/22 16:00 83 137/68 09/28/22 16:00 84 09/28/22 15:45 83 141/66 H 09/28/22 15:30 88 138/69 09/28/22 15:15 85 148/77 H 09/28/22 15:00 161/80 H 09/28/22 14:52 85 148/78 H 09/28/22 14:48 36.4 C L 86 16 151/74 H 09/28/22 14:34 36.9 C 86 16 129/39 L 100 Intake/Output Intake/Output: Intake & Output 09/26/22 09/27/22 09/28/22 09/29/22 23:59 23:59 23:59 23:59 Intake Total 2775 810 Output Total 2514 450 Balance 261 360 Meds/Results Medications: Active Medications Generic Name Dose Route Start Last Admin Trade Name Freq PRN Reason Stop Dose Admin Acetaminophen 650 mg 09/29/22 00:24 Acetaminophen 325 Mg Tablet PO Q4H PRN Mild Pain (1-3) Or Fever Hydrocodone Bitart/Acetaminophen 1 tab 09/29/22 00:24 09/29/22 01:37 Hydrocodone/Acetaminophen (*Crx) 5-325 Mg Tablet PO 1 tab Q6H PRN Administration Pain Rated 4-6 Albuterol
[2022-09-29] MEDS: SOD HYPOCHLORITE 1/4 STRENGTH 473 ML 1 APPLIC TOPICAL ×2 (12:58→20:15)
[2022-09-29] MEDS: TOLNAFTATE 1% POWDER 45 GM BTL 1 APPLIC TOPICAL ×2 (12:59→20:15)
--- NOTE | 2022-09-29 13:45 | PC.NURSE ---
On 09/29/22, the student, [Millie Rodgers], provided care and completed [facility] documentation on this patient. I have reviewed the student's documentation and agree with the findings.
[2022-09-29 17:22] LABS: Glucose Point of Care 336 mg/dl (65-105)
[2022-09-29] MEDS: rOPINIRole HCL 0.25 MG TABLET PO (20:10)
[2022-09-29 21:28] LABS: Glucose Point of Care 250 mg/dl (65-105)
[2022-09-30] VITALS (18 sets, daily range): BP systolic 146–184; BP diastolic 41–85; PULSE 88–123; RESP 16–18; TEMP 36.5–37.6; O2SAT 93–98
[2022-09-30 06:15] LABS: Basophils Absolute Auto 0.1 K/mm3 (0.0-0.1); Basophils Percent Auto 0.3 % (0.2-1.2); Eosinophils Absolute Auto 0.1 K/mm3 (0-0.3); Eosinophils Percent Auto 0.6 % (0-4.4); Hematocrit 27.9 % (42.0-52.0); Hemoglobin 8.6 g/dL (14.0-18.0); Immature Granulocyte Absolute 0.15 K/mm3 (0.00-0.031); Immature Granulocyte Percent A 0.8 % (0-0.5); Lymphocytes Absolute Auto 1.43 K/mm3 (0.9-3.2); Mean Corpuscular HGB Conc 30.8 g/dl (32-36); Mean Corpuscular Hemoglobin 27.6 pg (26-34); Mean Corpuscular Volume 89.4 fl (80-100); Mean Platelet Volume 9.5 fl (7.4-10.4); Monocytes Absolute Auto 0.8 K/mm3 (0.1-0.6); Monocytes Percent Auto 4.7 % (2.6-8.5); Neutrophils Absolute Auto 15.2 K/mm3 (1.3-6.7); Neutrophils Percent Auto 85.6 % (45.5-73.1); Platelet Count Result 556 k/mm3 (150-375); Red Blood Count 3.12 M/mm3 (4.6-6.20); Red Cell Distribution Width 17.2 % (11.5-14.5); White Blood Count 17.8 K/mm3 (4.5-10.0)
[2022-09-30 06:32] LABS: Alanine Aminotransferase 14 U/L (6-50); Albumin Level 2.8 g/dL (3.5-5.1); Alkaline Phosphatase 121 U/L (38-126); Anion Gap 16 mmol/L (8-16); Aspartate Amino Transferase 21 U/L (17-59); Bilirubin,Total 0.6 mg/dL (0.2-1.3); Blood Urea Nitrogen 36 mg/dL (9-20); Calcium 8.6 mg/dL (8.4-10.2); Carbon Dioxide 19 mmol/L (22-30); Chloride 93 mmol/L (98-107); Estimated Glomerular Filt Rate 19; Glucose 355 mg/dL (65-110); Potassium 4.8 mmol/L (3.4-5.0); Sodium 128 mmol/L (137-145)
[2022-09-30] MEDS: SERTRALINE HCL 50 MG TABLET 100 MG PO (08:07)
[2022-09-30] MEDS: PANTOPRAZOLE 40 MG TABLET PO ×2 (08:07→20:13)
[2022-09-30] MEDS: ASPIRIN 81 MG CHEWABLE TABLET PO (08:07)
[2022-09-30] MEDS: CYANOCOBALAMIN 1,000 MCG TABLET 1000 MCG PO (08:07)
[2022-09-30] MEDS: VITAMIN B CMPLX/VIT C/FOLIC AC 1 CAPSULE 1 CAP PO (08:07)
[2022-09-30] MEDS: ASCORBIC ACID 500 MG TABLET PO (08:07)
[2022-09-30] MEDS: GABAPENTIN 300 MG CAPSULE PO (08:07)
[2022-09-30] MEDS: FAMOTIDINE 20 MG TABLET PO ×2 (08:07→20:13)
[2022-09-30] MEDS: CHOLECALCIFEROL 1,000 UNITS TABLET 1000 UNITS PO (08:07)
[2022-09-30] MEDS: NICOTINE (*PBKC) 21 MG PATCH 1 PATCH TRANSDERM (08:08)
[2022-09-30] MEDS: HEPARIN SODIUM 5,000 UNITS/ML VIAL 5000 UNITS SUB-Q ×2 (08:08→20:13)
[2022-09-30] MEDS: ATORVASTATIN 40 MG TABLET 80 MG PO (08:08)
[2022-09-30] MEDS: INSULIN GLARGINE (*BKC) 100 UNITS/ML 15 UNITS SUB-Q ×2 (08:09→17:48)
[2022-09-30 08:33] LABS: Glucose Point of Care 404 mg/dl (65-105)
[2022-09-30] MEDS: INSULIN ASPART (*BKC) 100 UNITS/ML 10 UNITS SUB-Q (09:09)
--- NOTE | 2022-09-30 09:50 | P.CDI_ITS ---
CDI Query Clarified Diagnosis Clarified Diagnosis: CHF is noted in patient history and in current problem list. Please specify type and acuity of heart failure if known. * Acute * Chronic * Acute on Chronic * Unknown * Systolic * Diastolic * Combined Systolic and Diastolic * Unknown
--- NOTE | 2022-09-30 09:50 | WPDCDIQUERY2 ---
CDI Query Clarified Diagnosis Clarified Diagnosis: CHF is noted in patient history and in current problem list. Please specify type and acuity of heart failure if known. Acute Chronic Acute on Chronic Unknown Systolic Diastolic Combined Systolic and Diastolic Unknown
[2022-09-30] MEDS: TOLNAFTATE 1% POWDER 45 GM BTL 1 APPLIC TOPICAL ×2 (10:00→20:14)
[2022-09-30] MEDS: SOD HYPOCHLORITE 1/4 STRENGTH 473 ML 1 APPLIC TOPICAL ×2 (10:00→17:48)
--- NOTE | 2022-09-30 11:25 | PM.IMPN ---
Progress Note: A&P Assessment and Plan (1) Complication of below knee amputation stump: Code(s): T87.9 - Unspecified complications of amputation stump Status: Chronic Assessment and Plan: Patient has exposed stump Has recent debridement Will get surgery re-evaluate Probable chronic osteomyelitis will continue antibiotics for now. Patient needs to be evaluated by his vascular surgeon. This is not emergent. (2) Status post colostomy: Code(s): Z93.3 - Colostomy status Status: Acute Assessment and Plan: Monitor patient has brown stool no evidence of melena (3) Hypertension: Code(s): I10 - Essential (primary) hypertension Status: Acute Assessment and Plan: Pending home medication reconciliation (4) Decubitus ulcer of sacral area: Code(s): L89.159 - Pressure ulcer of sacral region, unspecified stage Status: Chronic Assessment and Plan: Wound care consult surgery consult status post recent debridement (5) IDDM (insulin dependent diabetes mellitus): Status: Chronic Assessment and Plan: Insulin sliding scale (6) Anemia: Code(s): D64.9 - Anemia, unspecified Status: Chronic Assessment and Plan: Acute worsening of chronic anemia most likely anemia of chronic disease transfuse to keep hemoglobin above 7 (7) ESRD (end stage renal disease): Code(s): N18.6 - End stage renal disease Status: Chronic Assessment and Plan: Urology consult (8) Altered mental status: Code(s): R41.82 - Altered mental status, unspecified Status: Acute Assessment and Plan: Multifactorial probably related to UTI renal failure Improved Continue IV antibiotics Nephrology consult for dialysis (9) Erythropoietin deficiency anemia: Code(s): D63.1 - Anemia in chronic kidney disease Status: Acute Assessment and Plan: transfuse as needed (10) CHF (congestive heart failure): Qualifiers: Heart failure chronicity: unspecified Heart failure type: unspecified Qualified Code(s): I50.9 - Heart failure, unspecified Code(s): I50.9 - Heart failure, unspecified Status: Acute Assessment and Plan: Euvolemic continue dialysis (11) UTI (urinary tract infection): Code(s): N39.0 - Urinary tract infection, site not specified Status: Acute Assessment and Plan: Patient has history of ESBL Continue Zosyn Follow culture results Subjective Date/time seen: 09/30/22 11:25 no complaints Exam Narrative: GENERAL: Well appearing, well-nourished, non-toxic, in no acute distress. HEAD: Normocephalic, atraumatic. NECK: Supple. No adenopathy, no masses. RESPIRATORY: Airway patent, respirations nonlabored. Clear to auscultation bilaterally, no rales, rhonchi, wheezing. CARDIOVASCULAR: Regular rate and rhythm without murmurs, rubs, or gallops. Peripheral pulses 2+ and equal bilaterally. ABDOMINAL: Soft, nontender, nondistended, no hepatosplenomegaly. Normoactive BS. MUSCULOSKELETAL: Right BKA in dressing decubitus ulcer SKIN: Warm, dry, normal color. No rashes. NEURO: A&O X3. Moves all extremities PSYCHIATRIC: Appropriate mood and affect. Normal interaction. Objective Data Vital Signs Vital Signs: Vital Signs - 24 hr 09/29/22 11:40 09/29/22 12:40 09/29/22 13:40 Temperature 98.7 F 98.8 F 98.8 F Pulse Rate 92 90 104 H Respiratory Rate 16 16 18 Blood Pressure 128/54 L 167/78 H 169/71 H Pulse Oximetry 100 100 100 Oxygen Delivery Oxygen Flow Rate 09/29/22 14:50 09/29/22 15:11 09/29/22 12:00 Temperature 99.2 F 98.7 F Pulse Rate 96 97 88 Respiratory Rate 18 16 Blood Pressure 162/69 H 175/59 H Pulse Oximetry 100 100 Oxygen Delivery Oxygen Flow Rate 09/29/22 15:56 09/29/22 16:12 09/29/22 14:50 Temperature 98.1 F 98.8 F 99.2 F Pulse Rate 99 103 H 96 Respiratory Rate 16 16 18 Blood Pressure 148/67 H 148/72 H 162/69 H Pulse Oxim
[2022-09-30 11:59] LABS: Glucose Point of Care 431 mg/dl (65-105)
[2022-09-30] MEDS: INSULIN ASPART (*BKC) 100 UNITS/ML 12 UNITS SUB-Q (12:26)
--- NOTE | 2022-09-30 12:54 | PC.NURSE ---
On 09/30/22, the student, [Millie Rodgers], provided care and completed [facility] documentation on this patient. I have reviewed the student's documentation and agree with the findings.
--- NOTE | 2022-09-30 13:23 | PM.PNNEP ---
Progress Note: A&P Assessment and Plan (1) ESRD (end stage renal disease): Code(s): N18.6 - End stage renal disease Status: Chronic Assessment and Plan: HD today and continue Mon/Mon/Monday dialysis schedule follow electrolytes, volume status, and clearance (2) Altered mental status: Code(s): R41.82 - Altered mental status, unspecified Status: Acute Assessment and Plan: resolving due to UTI(?) follow mentation (3) Complication of below knee amputation stump: Code(s): T87.9 - Unspecified complications of amputation stump Status: Chronic Assessment and Plan: exposed stump noted possible osteomyelitis likely needs vascular assessment prior to any surgical intervention empiric IV antibiotics pending surgery evaluation (4) Decubitus ulcer of sacral area: Code(s): L89.159 - Pressure ulcer of sacral region, unspecified stage Status: Chronic Assessment and Plan: Wound care and surgery following continue dressing changes (5) Anemia: Code(s): D64.9 - Anemia, unspecified Status: Chronic Assessment and Plan: H/H lower than baseline suspect due to recent hospitalizations, surgeries/debridements, and epogen resistance PRBC transfusion per protocol Epogen with HD follow H/H (6) UTI (urinary tract infection): Code(s): N39.0 - Urinary tract infection, site not specified Status: Acute Assessment and Plan: IV antibiotics follow-up on culture results (7) IDDM (insulin dependent diabetes mellitus): Status: Chronic Assessment and Plan: follow accuchecks glycemic control Will continue to follow. Subjective Date/time seen: 09/30/22 13:23 Tolerating dialysis treatment at the time of my visit (seen on HD at 1:10PM); reasonable response to PRBC transfusion; no apparent distress voiced; no other issues/events overnight or earlier this AM. Exam Narrative: General: WD/WN male in NAD Heart: normal S1 and S2; no rub Lungs: clear to auscultation Abdomen: soft, nontender, nondistended, positive bowel sounds Extremities: no cyanosis or clubbing; left AKA and right BKA Skin: dressing in place over wounds Objective Data Vital Signs Vital Signs: Vital Signs Temp Pulse Resp BP Pulse Ox O2 Del Method O2 Flow Rate 09/30/22 13:00 92 177/49 H 09/30/22 12:52 94 178/56 H 09/30/22 12:48 36.6 C 95 16 160/54 H 09/30/22 08:00 Nasal Cannula 2 09/30/22 06:39 93 Nasal Cannula 2 09/30/22 04:50 36.7 C 100 16 175/84 H 93 09/30/22 04:00 117 H 09/30/22 00:00 99 09/29/22 20:00 Room Air 09/29/22 19:12 37.2 C 100 18 174/78 H 99 09/29/22 18:12 37.2 C 104 H 18 177/76 H 99 09/29/22 17:12 37.2 C 98 18 170/66 H 100 Intake/Output Intake/Output: Intake & Output 09/27/22 09/28/22 09/29/22 09/30/22 23:59 23:59 23:59 23:59 Intake Total 2775 2560 540 Output Total 2514 450 3100 Balance 261 2110 -2560 Meds/Results Medications: Active Medications Generic Name Dose Route Start Last Admin Trade Name Freq PRN Reason Stop Dose Admin Acetaminophen 650 mg 09/29/22 00:24 Acetaminophen 325 Mg Tablet PO Q4H PRN Mild Pain (1-3) Or Fever Hydrocodone Bitart/Acetaminophen 1 tab 09/29/22 00:24 09/29/22 01:37 Hydrocodone/Acetaminophen (*Crx) 5-325 Mg Tablet PO 1 tab Q6H PRN Administration Pain Rated 4-6 Albuterol 1 puff 09/29/22 00:24 Albuterol Sulfate (*Sp) Aerosol 1 Puff INHALATION Q6H PRN Shortness Of Breath Ascorbic Acid 500 mg 09/29/22 09:00 09/30/22 08:07 Ascorbic Acid 500 Mg Tablet PO 500 mg DAILY MARTHA Administration Aspirin 81 mg 09/29/22 08:00 09/30/22 08:07 Aspirin 81 Mg Chewable Tablet PO 81 mg DAILY@0800 [facility] Administration Atorvastatin Calcium 80 mg 09/29/22 09:00 09/30/22 08:08 Atorvastatin 40 M
--- NOTE | 2022-09-30 13:23 | P.PNNP_ITS ---
Progress Note: A&P Assessment and Plan (1) ESRD (end stage renal disease): Code(s): N18.6 - End stage renal disease Status: Chronic Assessment and Plan: * HD today and continue Mon/Mon/Monday dialysis schedule * follow electrolytes, volume status, and clearance (2) Altered mental status: Code(s): R41.82 - Altered mental status, unspecified Status: Acute Assessment and Plan: * resolving * due to UTI(?) * follow mentation (3) Complication of below knee amputation stump: Code(s): T87.9 - Unspecified complications of amputation stump Status: Chronic Assessment and Plan: * exposed stump noted * possible osteomyelitis * likely needs vascular assessment prior to any surgical intervention * empiric IV antibiotics pending surgery evaluation (4) Decubitus ulcer of sacral area: Code(s): L89.159 - Pressure ulcer of sacral region, unspecified stage Status: Chronic Assessment and Plan: * Wound care and surgery following * continue dressing changes (5) Anemia: Code(s): D64.9 - Anemia, unspecified Status: Chronic Assessment and Plan: * H/H lower than baseline * suspect due to recent hospitalizations, surgeries/debridements, and epogen resistance * PRBC transfusion per protocol * Epogen with HD * follow H/H (6) UTI (urinary tract infection): Code(s): N39.0 - Urinary tract infection, site not specified Status: Acute Assessment and Plan: * IV antibiotics * follow-up on culture results (7) IDDM (insulin dependent diabetes mellitus): Status: Chronic Assessment and Plan: * follow accuchecks * glycemic control Will continue to follow. Subjective Date/time seen: 09/30/22 13:23 Tolerating dialysis treatment at the time of my visit (seen on HD at 1:10PM); reasonable response to PRBC transfusion; no apparent distress voiced; no other issues/events overnight or earlier this AM. Exam Narrative: General: WD/WN male in NAD Heart: normal S1 and S2; no rub Lungs: clear to auscultation Abdomen: soft, nontender, nondistended, positive bowel sounds Extremities: no cyanosis or clubbing; left AKA and right BKA Skin: dressing in place over wounds Objective Data Vital Signs Vital Signs: Vital Signs Temp Pulse Resp BP Pulse Ox O2 Del Method O2 Flow Rate 09/30/22 13:00 92 177/49 H 09/30/22 12:52 94 178/56 H 09/30/22 12:48 36.6 C 95 16 160/54 H 09/30/22 08:00 Nasal Cannula 2 09/30/22 06:39 93 Nasal Cannula 2 09/30/22 04:50 36.7 C 100 16 175/84 H 93 09/30/22 04:00 117 H 09/30/22 00:00 99 09/29/22 20:00 Room Air 09/29/22 19:12 37.2 C 100 18 174/78 H 99 09/29/22 18:12 37.2 C 104 H 18 177/76 H 99 09/29/22 17:12 37.2 C 98 18 170/66 H 100 Intake/Output Intake/Output: Intake & Output 09/27/22 09/28/22 09/29/22 09/30/22 23:59 23:59 23:59 23:59 Intake Total 2775 2560 540 Output Total 2514 450 3100 Balance 261 2110 -2560 Meds/Results Medications: Active Medications Generic Name Dose Route Start Last Admin
[2022-09-30] MEDS: SODIUM CHLORIDE 0.9% IV 1,000 ML 999 ML IV CONT (16:35)
[2022-09-30] MEDS: EPOETIN ALFA-EPBX 20,000 UNITS/ML VIAL 20000 UNITS IV PUSH (16:36)
[2022-09-30 17:43] LABS: Glucose Point of Care 139 mg/dl (65-105)
[2022-09-30] MEDS: rOPINIRole HCL 0.25 MG TABLET PO (20:13)
[2022-09-30] MEDS: LORazepam (*CRX) 1 MG TABLET PO (20:20)
[2022-09-30 21:35] LABS: Vancomycin Random 7.2 ug/mL (10-20)
[2022-10-01] VITALS: PULSE 102
[2022-10-01 04:00] VITALS: PULSE 85
[2022-10-01 04:57] VITALS: BP 164/69; PULSE 82; RESP 18; TEMP 36.6; O2SAT 100
[2022-10-01 05:00] LABS: Glucose Point of Care 83 mg/dl (65-105)
[2022-10-01 07:45] LABS: Basophils Percent Auto 0.2 % (0.2-1.2); Eosinophils Absolute Auto 0.2 K/mm3 (0-0.3); Eosinophils Percent Auto 1.6 % (0-4.4); Hematocrit 26.4 % (42.0-52.0); Hemoglobin 8.2 g/dL (14.0-18.0); Immature Granulocyte Percent A 0.8 % (0-0.5); Lymphocytes Absolute Auto 1.67 K/mm3 (0.9-3.2); Lymphocytes Percent Auto 13.5 % (18.3-44.2); Mean Corpuscular HGB Conc 31.1 g/dl (32-36); Mean Corpuscular Volume 90.1 fl (80-100); Mean Platelet Volume 9.3 fl (7.4-10.4); Monocytes Absolute Auto 0.7 K/mm3 (0.1-0.6); Monocytes Percent Auto 5.9 % (2.6-8.5); Neutrophils Absolute Auto 9.7 K/mm3 (1.3-6.7); Platelet Count Result 490 k/mm3 (150-375); Red Blood Count 2.93 M/mm3 (4.6-6.20); Red Cell Distribution Width 17.3 % (11.5-14.5); White Blood Count 12.4 K/mm3 (4.5-10.0)
[2022-10-01 08:03] LABS: Albumin Level 2.5 g/dL (3.5-5.1); Anion Gap 7 mmol/L (8-16); Blood Urea Nitrogen 24 mg/dL (9-20); Calcium 8.5 mg/dL (8.4-10.2); Carbon Dioxide 30 mmol/L (22-30); Chloride 95 mmol/L (98-107); Estimated Glomerular Filt Rate 28; Glucose 80 mg/dL (65-110); Phosphorus 4.4 mg/dL (2.5-4.5); Potassium 3.7 mmol/L (3.4-5.0); Sodium 132 mmol/L (137-145)
[2022-10-01 08:28] LABS: Glucose Point of Care 84 mg/dl (65-105)
[2022-10-01] MEDS: ATORVASTATIN 40 MG TABLET 80 MG PO (09:12)
[2022-10-01] MEDS: CYANOCOBALAMIN 1,000 MCG TABLET 1000 MCG PO (09:12)
[2022-10-01] MEDS: ASCORBIC ACID 500 MG TABLET PO (09:12)
[2022-10-01] MEDS: VITAMIN B CMPLX/VIT C/FOLIC AC 1 CAPSULE 1 CAP PO (09:12)
[2022-10-01] MEDS: NICOTINE (*PBKC) 21 MG PATCH 1 PATCH TRANSDERM (09:12)
[2022-10-01] MEDS: SERTRALINE HCL 50 MG TABLET 100 MG PO (09:12)
[2022-10-01] MEDS: HEPARIN SODIUM 5,000 UNITS/ML VIAL 5000 UNITS SUB-Q (09:12)
[2022-10-01] MEDS: INSULIN GLARGINE (*BKC) 100 UNITS/ML 15 UNITS SUB-Q (09:12)
[2022-10-01] MEDS: FAMOTIDINE 20 MG TABLET PO (09:12)
[2022-10-01] MEDS: PANTOPRAZOLE 40 MG TABLET PO (09:12)
[2022-10-01] MEDS: GABAPENTIN 300 MG CAPSULE PO (09:12)
[2022-10-01] MEDS: CHOLECALCIFEROL 1,000 UNITS TABLET 1000 UNITS PO (09:12)
[2022-10-01] MEDS: ASPIRIN 81 MG CHEWABLE TABLET PO (09:12)
[2022-10-01] MEDS: SOD HYPOCHLORITE 1/4 STRENGTH 473 ML 1 APPLIC TOPICAL (09:13)
[2022-10-01] MEDS: TOLNAFTATE 1% POWDER 45 GM BTL 1 APPLIC TOPICAL (09:13)
--- NOTE | 2022-10-01 11:00 | PM.DS ---
DS: Admitting Diagnosis Discharge Date October 01, 2022 Admitting Diagnosis chronic osteomyelitis DS: Discharge Diagnosis Discharge Diagnosis (1) Complication of below knee amputation stump: Code(s): T87.9 - Unspecified complications of amputation stump Status: Chronic Assessment and Plan: Patient has exposed stump Has recent debridement Will get surgery re-evaluate Probable chronic osteomyelitis will continue antibiotics for now. Patient needs to be evaluated by his vascular surgeon. This is not emergent. (2) Status post colostomy: Code(s): Z93.3 - Colostomy status Status: Acute Assessment and Plan: Monitor patient has brown stool no evidence of melena (3) Hypertension: Code(s): I10 - Essential (primary) hypertension Status: Acute Assessment and Plan: Pending home medication reconciliation (4) Decubitus ulcer of sacral area: Code(s): L89.159 - Pressure ulcer of sacral region, unspecified stage Status: Chronic Assessment and Plan: Wound care consult surgery consult status post recent debridement (5) IDDM (insulin dependent diabetes mellitus): Status: Chronic Assessment and Plan: Insulin sliding scale (6) Anemia: Code(s): D64.9 - Anemia, unspecified Status: Chronic Assessment and Plan: Acute worsening of chronic anemia most likely anemia of chronic disease transfuse to keep hemoglobin above 7 (7) ESRD (end stage renal disease): Code(s): N18.6 - End stage renal disease Status: Chronic Assessment and Plan: Urology consult (8) Altered mental status: Code(s): R41.82 - Altered mental status, unspecified Status: Acute Assessment and Plan: Multifactorial probably related to UTI renal failure Improved Continue IV antibiotics Nephrology consult for dialysis (9) Erythropoietin deficiency anemia: Code(s): D63.1 - Anemia in chronic kidney disease Status: Acute Assessment and Plan: transfuse as needed (10) CHF (congestive heart failure): Qualifiers: Heart failure chronicity: unspecified Heart failure type: unspecified Qualified Code(s): I50.9 - Heart failure, unspecified Code(s): I50.9 - Heart failure, unspecified Status: Acute Assessment and Plan: Euvolemic continue dialysis (11) UTI (urinary tract infection): Code(s): N39.0 - Urinary tract infection, site not specified Status: Acute Assessment and Plan: Patient has history of ESBL Continue Zosyn Follow culture results DS: Summary Hospital Course Hospital Course: patient is a 57-year-old male who had a BKA done sometime ago. He follows with Dr. Mcbride a vascular surgeon for this. Nonetheless patient was admitted for an exposed bone from his prior surgery. This is likely complicated by significant vascular issues in that leg. Surgery was consulted here we start him on antibiotics and surgery felt this was most likely related to a chronic vascular issue. They did not think that any sort of infection was overwhelming. Nonetheless will be sent home on antibiotics. We did make an appointment for him to see Dr. Mcbride in the next week or two. To note the patient has history of not showing up to these appointments. Time Spent with Patient Time attestation: Total time spent providing and/or coordinating discharge services: Exam Narrative: GENERAL: Well appearing, well-nourished, non-toxic, in no acute distress. HEAD: Normocephalic, atraumatic. NECK: Supple. No adenopathy, no masses. RESPIRATORY: Airway patent, respirations nonlabored. Clear to auscultation bilaterally, no rales, rhonchi, wheezing. CARDIOVASCULAR: Regular rate and rhythm without murmurs, rubs, or gallops. Peripheral pulses 2+ and equal bilaterally. ABDOMINAL: Soft, nontender, nondistended, no hepatosplenomegaly. Normoactive BS. MUSCULOSKELETAL: Right BKA in dressing decubitus u
--- NOTE | 2022-10-01 11:56 | PM.PNNEP ---
Progress Note: A&P Assessment and Plan (1) ESRD (end stage renal disease): Code(s): N18.6 - End stage renal disease Status: Chronic Assessment and Plan: HD tomorrow and continue Mon/Mon/Monday dialysis schedule follow electrolytes, volume status, and clearance (2) Altered mental status: Code(s): R41.82 - Altered mental status, unspecified Status: Acute Assessment and Plan: resolving/resolved due to UTI(?) follow mentation (3) Complication of below knee amputation stump: Code(s): T87.9 - Unspecified complications of amputation stump Status: Chronic Assessment and Plan: exposed stump noted possible osteomyelitis likely needs vascular assessment prior to any surgical intervention (4) Decubitus ulcer of sacral area: Code(s): L89.159 - Pressure ulcer of sacral region, unspecified stage Status: Chronic Assessment and Plan: Wound care and surgery following continue dressing changes (5) Anemia: Code(s): D64.9 - Anemia, unspecified Status: Chronic Assessment and Plan: H/H lower than baseline suspect due to recent hospitalizations, surgeries/debridements, and epogen resistance PRBC transfusion per protocol Epogen with HD follow H/H (6) UTI (urinary tract infection): Code(s): N39.0 - Urinary tract infection, site not specified Status: Acute Assessment and Plan: culture results noted no need for furrther antibiotics (7) IDDM (insulin dependent diabetes mellitus): Status: Chronic Assessment and Plan: follow accuchecks glycemic control Will continue to follow. Subjective Date/time seen: 10/01/22 11:56 Tolerated hemodialysis treatment yesterday without any issues or problems; mentation continues to remain stable and at baseline; urine culture results noted; no apparent distress voiced. Exam Narrative: General: WD/WN male in NAD Heart: normal S1 and S2; no rub Lungs: clear to auscultation Abdomen: soft, nontender, nondistended, positive bowel sounds Extremities: no cyanosis or clubbing; left AKA and right BKA Skin: dressing in place over wounds Objective Data Vital Signs Vital Signs: Vital Signs Temp Pulse Resp BP Pulse Ox O2 Del Method 10/01/22 08:00 Room Air 10/01/22 04:57 36.6 C 82 18 164/69 H 100 10/01/22 04:00 85 10/01/22 00:00 102 H 09/30/22 20:00 104 H 09/30/22 20:00 98 18 93 Room Air 09/30/22 21:31 37.6 C 103 H 16 146/76 H 98 09/30/22 16:00 123 H 09/30/22 16:21 36.8 C 98 18 165/72 H 09/30/22 16:06 91 164/85 H 09/30/22 16:00 89 158/64 H 09/30/22 15:30 90 184/54 H 09/30/22 15:00 91 156/51 H 09/30/22 14:30 88 169/41 H 09/30/22 14:00 90 160/56 H Intake/Output Intake/Output: Intake & Output 09/28/22 09/29/22 09/30/22 10/01/22 23:59 23:59 23:59 23:59 Intake Total 2775 2560 1480 480 Output Total 2514 450 3100 0 Balance 261 2110 -1620 480 Meds/Results Medications: Active Medications Generic Name Dose Route Start Last Admin Trade Name Freq PRN Reason Stop Dose Admin Acetaminophen 650 mg 09/29/22 00:24 Acetaminophen 325 Mg Tablet PO Q4H PRN Mild Pain (1-3) Or Fever Hydrocodone Bitart/Acetaminophen 1 tab 09/29/22 00:24 09/29/22 01:37 Hydrocodone/Acetaminophen (*Crx) 5-325 Mg Tablet PO 1 tab Q6H PRN Administration Pain Rated 4-6 Albuterol 1 puff 09/29/22 00:24 Albuterol Sulfate (*Sp) Aerosol 1 Puff INHALATION Q6H PRN Shortness Of Breath Ascorbic Acid 500 mg 09/29/22 09:00 10/01/22 09:12 Ascorbic Acid 500 Mg Tablet PO 500 mg DAILY MARTHA Administration Aspirin 81 mg 09/29/22 08:00 10/01/22 09:12 Aspirin 81 Mg Chewable Tablet PO 81 mg DAILY@0800 MARTHA Administration Atorvastatin Calcium 80 mg 09/29/22 09:00 10/01/22 09:12 Atorvastatin 40 M
--- NOTE | 2022-10-01 11:56 | P.PNNP_ITS ---
Progress Note: A&P Assessment and Plan (1) ESRD (end stage renal disease): Code(s): N18.6 - End stage renal disease Status: Chronic Assessment and Plan: * HD tomorrow and continue Mon/Mon/Monday dialysis schedule * follow electrolytes, volume status, and clearance (2) Altered mental status: Code(s): R41.82 - Altered mental status, unspecified Status: Acute Assessment and Plan: * resolving/resolved * due to UTI(?) * follow mentation (3) Complication of below knee amputation stump: Code(s): T87.9 - Unspecified complications of amputation stump Status: Chronic Assessment and Plan: * exposed stump noted * possible osteomyelitis * likely needs vascular assessment prior to any surgical intervention (4) Decubitus ulcer of sacral area: Code(s): L89.159 - Pressure ulcer of sacral region, unspecified stage Status: Chronic Assessment and Plan: * Wound care and surgery following * continue dressing changes (5) Anemia: Code(s): D64.9 - Anemia, unspecified Status: Chronic Assessment and Plan: * H/H lower than baseline * suspect due to recent hospitalizations, surgeries/debridements, and epogen resistance * PRBC transfusion per protocol * Epogen with HD * follow H/H (6) UTI (urinary tract infection): Code(s): N39.0 - Urinary tract infection, site not specified Status: Acute Assessment and Plan: * culture results noted * no need for furrther antibiotics (7) IDDM (insulin dependent diabetes mellitus): Status: Chronic Assessment and Plan: * follow accuchecks * glycemic control Will continue to follow. Subjective Date/time seen: 10/01/22 11:56 Tolerated hemodialysis treatment yesterday without any issues or problems; mentation continues to remain stable and at baseline; urine culture results noted; no apparent distress voiced. Exam Narrative: General: WD/WN male in NAD Heart: normal S1 and S2; no rub Lungs: clear to auscultation Abdomen: soft, nontender, nondistended, positive bowel sounds Extremities: no cyanosis or clubbing; left AKA and right BKA Skin: dressing in place over wounds Objective Data Vital Signs Vital Signs: Vital Signs Temp Pulse Resp BP Pulse Ox O2 Del Method 10/01/22 08:00 Room Air 10/01/22 04:57 36.6 C 82 18 164/69 H 100 10/01/22 04:00 85 10/01/22 00:00 102 H 09/30/22 20:00 104 H 09/30/22 20:00 98 18 93 Room Air 09/30/22 21:31 37.6 C 103 H 16 146/76 H 98 09/30/22 16:00 123 H 09/30/22 16:21 36.8 C 98 18 165/72 H 09/30/22 16:06 91 164/85 H 09/30/22 16:00 89 158/64 H 09/30/22 15:30 90 184/54 H 09/30/22 15:00 91 156/51 H 09/30/22 14:30 88 169/41 H 09/30/22 14:00 90 160/56 H Intake/Output Intake/Output: Intake & Output 09/28/22 09/29/22 09/30/22 10/01/22 23:59 23:59 23:59 23:59 Intake Total 0245 2560 1480 480 Output Total 2514 450 3100 0 Balance 261 2110 -1620 480 Meds/Results Medications: Active Medications Generic Name Do
[2022-10-01 12:34] LABS: Glucose Point of Care 313 mg/dl (65-105)
[2022-10-01] MEDS: INSULIN ASPART (*BKC) 100 UNITS/ML SUB-Q (12:52)
[2022-10-01 15:47] VITALS: BP 162/70; PULSE 94; RESP 18; TEMP 36.7; O2SAT 98
== END 2022-10-01 16:09 | DRG 871 ==
LOC: ANHED 20:04 → ANH2MED 09-28 00:22
PROVIDERS: Internal Medicine Nephrology; Admitting Provider Internal Medicine; Emergency Provider Emergency Medicine; PCP Emergency Medicine; Visit Provider Chiropractor
DX: A41.9 Sepsis, unspecified organism (principal); L89.154 Pressure ulcer of sacral region, stage 4; N18.6 End stage renal disease; I13.2 Hypertensive heart and chronic kidney disease with heart failure and with stage 5 chronic kidney disease, or end stage renal disease; N39.0 Urinary tract infection, site not specified; M86.68 Other chronic osteomyelitis, other site; T87.89 Other complications of amputation stump; Z99.2 Dependence on renal dialysis; Z20.822 Contact with and (suspected) exposure to COVID-19; Z89.511 Acquired absence of right leg below knee; Z89.612 Acquired absence of left leg above knee; F41.8 Other specified anxiety disorders; F17.210 Nicotine dependence, cigarettes, uncomplicated; E11.22 Type 2 diabetes mellitus with diabetic chronic kidney disease; I50.9 Heart failure, unspecified; D63.1 Anemia in chronic kidney disease; N40.0 Benign prostatic hyperplasia without lower urinary tract symptoms; I25.10 Atherosclerotic heart disease of native coronary artery without angina pectoris; K21.9 Gastro-esophageal reflux disease without esophagitis; N25.0 Renal osteodystrophy; I25.2 Old myocardial infarction; Z79.4 Long term (current) use of insulin; Z79.82 Long term (current) use of aspirin; Z79.899 Other long term (current) drug therapy; Z93.3 Colostomy status; Z95.5 Presence of coronary angioplasty implant and graft
CPT/HCPCS: 36415; 36430; 70450; 71045; 80053; 80069; 80202; 81001; 82948; 83605; 84484; 85025; 85610; 85730; 86706; 86850; 86900; 86901; 86923; 87086; 87088; 87340; 87636; 93005; 96365; 96366; 96367; 96372; 96374; 99285; A9270; G0257; G0378; J1644; J1815; J2543; J3370; J7030; P9016; Q5105

== ENCOUNTER 2022-10-24 12:28 | Emergency (ER) | payer OTHER, SELFPAY ==
--- NOTE | ~2022-10-24 | CT_ITS ---
EXAMINATION: CT chest abdomen pelvis wo con DATE: 10/24/2022 16:51 INDICATION: Facial plethora and arm swelling. Hip infection. Lethargy. TECHNIQUE: Computed tomography (CT) of the chest, abdomen, and pelvis was performed without intraveno us contrast. Automated exposure control and iterative reconstruction technique were employed. The dos e-length product was 672.14 mGy-cm. COMPARISON: CT abdomen pelvis dated 03/29/[address] dated 03/11/2021 FINDINGS: CHEST CT: Large-bore dual-lumen right internal jugular central venous likely dialysis catheter with distal tip in the right atrium. Small bilateral pleural effusions with dependent compressive atelectasis in the bilateral upper and lower lobes. There are patchy groundglass opacities throughout both lungs most pr ominent in the lingula and right upper and middle lobes without corresponding cephalad projecting and favor atelectasis or aspiration over pneumonia. Cardiomegaly. No pericardial effusion. Atherosclerot ic coronary artery calcification is at coronary artery stenting. Aortic valve calcification. Dense mi tral annular calcific location. Thoracic aorta is normal in caliber. There is diffuse body wall and m ediastinal edema. Likely reactive mild mediastinal lymphadenopathy. ABDOMEN/PELVIS CT: There is extensive body wall edema throughout the abdomen and pelvis. There is large amount of soft t issue gas in the subcutaneous tissues posterior and lateral to the greater trochanter of the left hip , the left ischial tuberosity and posterior inferior to the right ischial tuberosity extending into t he posterolateral proximal right thigh and right perineal region. These could be related to decubitus ulcers however necrotizing fasciitis could not be excluded. Large sacral decubitus ulcer with loss o f the more dense corticated margins at the posterolateral aspect of the left ischial tuberosity which is new since the prior CT consistent with osteomyelitis. Additional loss of cortication posteriorly at the caudal aspect of both the left and right sacral ala consistent with additional osteomyelitis. Liver, gallbladder, spleen, pancreas and bilateral adrenal glands are normal. Mild bilateral renal at rophy with 1.7 cm cyst at the upper pole of the left kidney. Postoperative change of prior partial co lectomy with long Campbell's pouch and left lower quadrant and colostomy. No bowel obstruction. Baptiste catheter in the bladder. There are couple small foci of gas along the right anterior margin of the ba se of the bladder and prostate, not definitively within the bladder and could not exclude additional spread of infection/necrotizing fasciitis into the extraperitoneal tissues in the deep pelvis. Small amount of ascites in the abdomen and pelvis. Diffuse mesenteric and retroperitoneal edema. No free in traperitoneal gas. Extensive vascular calcifications throughout suggesting diabetes. Combined instrum ented L4-S1 anterior and posterior spinal fusion. Electronic device, likely bone graft stimulator in the subcutaneous tissues posterior to the mid lumbar spine with leads extending to the posterior lumbee ents at L4-S1. IMPRESSION: 1. Large amount of soft tissue gas posterior to the left hip, left ischial tuberosity and posterior i nferior to the right ischial tuberosity which could be related to decubitus ulcers of the extent also raises some concern for necrotizing fasciitis. In addition there is a foci of gas consistent along t he right anterior margin of the junction of the bladder and prostate which is not clearly intralumina l raising concern for intrapelvic, extraperitoneal spread of arising fasciitis/Thad's gangrene. Sanju Chacon discussed these findings with Dr. Sears at 5:15 PM. 2. Patchy bilateral groundglass opacities concerning for pneumonia with differential including aspira tion or pulmonary edema. 3. Small bilateral pleural effusions. 4. Cardiomeg
--- NOTE | ~2022-10-24 | US_ITS ---
EXAMINATION: US venous doppler UE RT DATE: 10/24/2022 15:04 INDICATION: Swelling. TECHNIQUE: Grayscale ultrasound images without and with compression and Doppler ultrasound images of the right upper extremity veins were obtained. COMPARISON: None. FINDINGS: Edema prevents visualization of the cephalic vein. The visualized portions of the right internal jugu lar vein, subclavian vein, axillary vein, brachial veins, basilic vein, radial vein, and ulnar vein a re patent. IMPRESSION: 1. Cephalic vein not visualized. 2. Otherwise, no deep venous thrombosis. Reviewed, dictated and finalized at location K. MANAGEMENT NURSE PRACTITIONER
[2022-10-24 12:47] VITALS: BP 185/97; PULSE 113; RESP 22; TEMP 36.9; O2SAT 100
[2022-10-24 13:03] LABS: Glucose Point of Care 257 mg/dl (65-105)
[2022-10-24 13:20] LABS: Alanine Aminotransferase 19 U/L (6-50); Albumin Level 2.8 g/dL (3.5-5.1); Alkaline Phosphatase 151 U/L (38-126); Anion Gap 9 mmol/L (8-16); Aspartate Amino Transferase 34 U/L (17-59); Bilirubin,Total 0.4 mg/dL (0.2-1.3); Blood Urea Nitrogen 68 mg/dL (9-20); Calcium 8.9 mg/dL (8.4-10.2); Carbon Dioxide 23 mmol/L (22-30); Chloride 99 mmol/L (98-107); Estimated Glomerular Filt Rate 17; Glucose 260 mg/dL (65-110); Magnesium 2.1 mg/dL (1.6-2.3); Phosphorus 5.9 mg/dL (2.5-4.5); Sodium 131 mmol/L (137-145)
[2022-10-24 13:23] LABS: Appearance Urine Cloudy (Clear); Bilirubin Urine Negative (Negative); Blood Urine 2+ (Negative); Glucose Urine UA Negative (Negative); Ketones Urine Negative (Negative); Leukocyte Esterase Ur 3+ LEU/UL (Negative); Nitrate Urine Negative (Negative); Protein Urine 2+ mg/dL (Negative); Urobilinogen Urine 0.2 mg/dL (<2.0)
[2022-10-24 13:25] LABS: Beta-Hydroxybutyrate/Acetoacetate 0.16 mmol/L (0.02-0.27)
[2022-10-24 13:32] LABS: Add Urine Microscopic? YES; Color Urine Dark Yellow (Yellow)
[2022-10-24] MEDS: ALBUTEROL SULFATE NEB 2.5 MG/3 ML INH 5 MG INHALATION (13:38)
[2022-10-24 13:40] VITALS: PULSE 117; RESP 22
[2022-10-24 13:42] LABS: Influenza A QL RT-PCR Negative (Negative); Influenza B QL RT-PCR Negative (Negative); SARS-CoV-2 RNA PCR Negative
[2022-10-24] MEDS: INSULIN HUMAN REGULAR (*BKC) 100 UNITS/ML 6 UNITS IV PUSH (13:42)
[2022-10-24] MEDS: CALCIUM GLUCONATE 1,000 MG/10 ML VIAL 1000 MG IV PUSH (13:43)
[2022-10-24] MEDS: SODIUM BICARBONATE 8.4% 50 MEQ/50 ML SYRINGE IV PUSH (13:43)
[2022-10-24 13:53] LABS: Lactic Acid Reflex 1.3 mmol/L (0.7-2.0)
[2022-10-24 13:58] LABS: Bacteria Urine 2+ /hpf; RBC Urine >75 /hpf (0-2); WBC Clumps Urine Present /HPF; WBC Urine >75 /hpf
--- NOTE | 2022-10-24 14:33 | ED.GENADULT ---
HPI - General Adult General Chief complaint: Recheck/Abnormal Lab/Rx Stated complaint: high blood sugar Time Seen by Provider: 10/24/22 12:33 History of Present Illness HPI narrative: Patient is a 57-year-old male with history of diabetes and end-stage renal disease who presents to the ER due to weakness and elevated blood sugars. Blood sugar in 500 at [facility]. They treated him with insulin and a peanut butter and jelly sandwich. They then sent him here to the ER. Last dialysis was 3 days ago. No chest pain or chest pressure. Patient is oriented x3 but withdrawn and fatigued and unable to give significant history. Patient does have indwelling Baptiste catheter that is very turbid appearing dark urine. Related Data Home Medications Medication Instructions Recorded Confirmed vitamin B complex-vitamin C-folic 1 tablet PO DAILY 07/23/20 09/28/22 acid 0.8 mg tablet (Dang-Nilsa) ropinirole 0.25 mg tablet 0.25 mg PO HS 01/11/21 09/28/22 ticagrelor 60 mg tablet (Brilinta) 60 mg PO BID 06/23/22 09/29/22 albuterol sulfate 90 mcg/actuation 1 puff inhalation Q6H PRN 07/09/22 09/28/22 aerosol inhaler Shortness Of Breath aspirin 81 mg tablet 81 mg PO DAILY 07/09/22 09/28/22 cholecalciferol (vitamin D3) 25 25 mcg PO DAILY 07/09/22 09/28/22 mcg (1,000 unit) tablet (Vitamin D3) magnesium hydroxide 400 mg/5 mL 30 ml PO HS PRN Constipation 07/28/22 09/28/22 oral suspension (Milk of Magnesia) omeprazole 20 mg capsule,delayed 20 mg PO DAILY 07/28/22 09/28/22 release cyanocobalamin (vitamin B-12) 1,000 mcg PO DAILY 08/25/22 09/28/22 1,000 mcg capsule vitamin B complex 1 cap PO DAILY 08/25/22 09/28/22 Adults Multivitamin 1 tab-cap PO DAILY 09/28/22 09/28/22 amino acids-protein hydrolysate 17 1 ea PO TID 09/28/22 09/28/22 gram-100 kcal/30 mL oral liquid (Pro-Stat AWC) ascorbic acid (vitamin C) 500 mg 500 mg PO DAILY 09/28/22 09/28/22 chewable tablet insulin detemir U-100 100 unit/mL 15 unit subcut BID 09/28/22 09/28/22 (3 mL) subcutaneous pen (Levemir FlexTouch U-100 Insulin) Allergies Allergy/AdvReac Type Severity Reaction Status Date / Time scopolamine Allergy Severe Unresponsiv Verified 09/26/22 16:52 e [facility] Past Medical History Medical History Acute respiratory failure with hypoxia Amputation above knee Anemia Anemia Anxiety Benign prostatic hyperplasia Bradycardic cardiac arrest (~07/23/20) In the setting of severe hyperkalemia, acute pulmonary edema, and respiratory failure CHF (congestive heart failure) Chronic anemia Chronic kidney failure Congestive heart failure Echo 03/06/2021 1. Complete two-dimensional, color flow and Doppler transthoracic echocardiogram is performed. 2. Left ventricular chamber dimension is mildly enlarged. 3. Left ventricular systolic function is mildly reduced, estimated at 55-60%. 4. There is severely increased left ventricular wall thickness. Speckled appearance of the myocardium. 5. The left ventricular diastolic function is grade I diastolic dysfunction. 6. Left atrial chamber dimension is mildly enlarged. 7. There is moderate aortic valve sclerosis. 8. The mitral valve annulus is severely calcified. 9. There is mild mitral valve regurgitation. 10. The mitral valve has thickened leaflets. 11. There is mild tricuspid valve regurgitation. 12. There is mild pulmonic regurgitation. Coronary artery disease With non STEMI in December 2019, with stent placed to the LAD. Depression with anxiety Diabetic ketoacidosis DVT prophylaxis Elevated lipase Elevated troponin Employs prosthetic leg End-stage renal disease on hemodialysis Erythropoietin deficiency anemia Gastric ulcer On endoscopy per Dr. Pacheco in June 2020. Gastroesophageal reflux disease Guillain-Bryan Hyperkalemia Hypertension Hypertensive urgency Leukocytosis Nausea & vomiting Noncompliance Pneumonia Pulmonary edema Robinson
[2022-10-24 15:13] VITALS: BP 161/74; PULSE 120; RESP 20; O2SAT 97
--- NOTE | 2022-10-24 15:13 | PC.NURSE ---
multiple attempts for IV access without success. ADILENE Toth trying for ultrasound IV access.
[2022-10-24 15:25] LABS: Glucose Point of Care 216 mg/dl (65-105)
--- NOTE | 2022-10-24 16:16 | PM.IMHP ---
H&P: HPI History of Present Illness Date/Time: 10/24/22 16:00 [facility] Past Medical History Medical History Acute respiratory failure with hypoxia Amputation above knee Anemia Anemia Anxiety Benign prostatic hyperplasia Bradycardic cardiac arrest (~07/23/20) In the setting of severe hyperkalemia, acute pulmonary edema, and respiratory failure CHF (congestive heart failure) Chronic anemia Chronic kidney failure Congestive heart failure Echo 03/06/2021 1. Complete two-dimensional, color flow and Doppler transthoracic echocardiogram is performed. 2. Left ventricular chamber dimension is mildly enlarged. 3. Left ventricular systolic function is mildly reduced, estimated at 55-60%. 4. There is severely increased left ventricular wall thickness. Speckled appearance of the myocardium. 5. The left ventricular diastolic function is grade I diastolic dysfunction. 6. Left atrial chamber dimension is mildly enlarged. 7. There is moderate aortic valve sclerosis. 8. The mitral valve annulus is severely calcified. 9. There is mild mitral valve regurgitation. 10. The mitral valve has thickened leaflets. 11. There is mild tricuspid valve regurgitation. 12. There is mild pulmonic regurgitation. Coronary artery disease With non STEMI in December 2019, with stent placed to the LAD. Depression with anxiety Diabetic ketoacidosis DVT prophylaxis Elevated lipase Elevated troponin Employs prosthetic leg End-stage renal disease on hemodialysis Erythropoietin deficiency anemia Gastric ulcer On endoscopy per Dr. Pacheco in June 2020. Gastroesophageal reflux disease Guillain-Florence Hyperkalemia Hypertension Hypertensive urgency Leukocytosis Nausea & vomiting Noncompliance Pneumonia Pulmonary edema Renal osteodystrophy Seizure Secondary to hypoglycemia. Smoking ST elevation myocardial infarction (STEMI) (~06/26/20) Secondary to abrupt stent thrombosis of the LAD. Tobacco dependence Type 1 diabetes mellitus Diagnosed at the age of 10. Complicated by retinopathy, nephropathy, and neuropathy. Hemoglobin A1c was 7.6% in July 2020. Upper GI bleed Vitamin D deficiency disease Weakness Surgical History Surgical History History of endoscopy (~06/27/20) History of femoropopliteal bypass 02/04/21 left common femoral endarterectomy with left femoral to below-knee popliteal artery bypass History of heart artery stent Stent in the LAD in December 2019. Patient had abrupt stent thrombosis of the previously placed stent to the LAD on June 26, 2020 left coronary with extraction thrombectomy and stenting distal to the original stent with upsizing of the original stent. History of spinal surgery Neurostimulator in place. History of transmetatarsal amputation of left foot 02/04/21 at [facility]. Status post above-knee amputation of left lower extremity February 2021 at [facility] Status post below knee amputation of right lower extremity (~12/02/19) Performed [facility]. Status post cataract extraction Status post creation of arteriovenous fistula Left upper extremity. Status post hemorrhoidectomy Family History Family History Father Hypertension Sibling Multiple myeloma Hypertension Mother Acute myelogenous leukemia Heart disease Social History Social History Social History: Mr. Corley currently resides at [facility]. 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 He designates his , Rosana, as his surrogate decision maker and he wishes to be a full code. Tobacco 1ppd for over 38 years. No alcohol use x many years now. Hx of cocaine use in the past but none for years. Code status full code Smoking packs per day
--- NOTE | 2022-10-24 17:25 | PC.NURSE ---
diabetic dinner tray ordered
[2022-10-24 18:37] LABS: Hematocrit 29.6 % (42.0-52.0); Mean Corpuscular HGB Conc 30.4 g/dl (32-36); Mean Corpuscular Hemoglobin 27.7 pg (26-34); Mean Corpuscular Volume 91.1 fl (80-100); Mean Platelet Volume 9.4 fl (7.4-10.4); Platelet Count Result 711 k/mm3 (150-375); Red Blood Count 3.25 M/mm3 (4.6-6.20); Red Cell Distribution Width 19.3 % (11.5-14.5); White Blood Count 20.8 K/mm3 (4.5-10.0)
[2022-10-24 19:33] LABS: Band Neutrophils Percent 7 % (0-6); Hypochromasia 1+ (NORMAL); Lymphocytes Absolute Manual 1.04 K/mm3 (1.1-4.5); Monocytes Absolute Manual 0.62 K/mm3 (0.1-0.90); Monocytes Percent Manual 3 % (3-9); Neutrophils Absolute Manual 19.13 K/mm3 (1.3-6.7); Neutrophils Percent Manual 85 % (46-73); Platelet Estimate Increased (Adequate); Schistocytes None Seen (NORMAL); Total Cells Counted 100
[2022-10-24 19:34] LABS: Anisocytosis 3+ (NORMAL)
--- NOTE | 2022-10-25 | WPDCN ---
HPI Data of Consult Date/Time: 10/24/22 16:00 Requesting Physician: Vivek Sears MD Consult Narrative Reason for consult: Weakness, UTI, hyperkalemia Narrative: This is an unfortunate, chronically ill 57-year-old male with multiple medical problems to include end-stage renal disease on hemodialysis, type 1 diabetes mellitus, peripheral vascular disease, coronary artery disease, hypertension, history of noncompliance, and other comorbidities who presented to the emergency department via EMS from [facility] for evaluation high blood sugar and weakness. [facility] Past Medical History Medical History Acute respiratory failure with hypoxia Amputation above knee Anemia Anemia Anxiety Benign prostatic hyperplasia Bradycardic cardiac arrest (~07/23/20) In the setting of severe hyperkalemia, acute pulmonary edema, and respiratory failure CHF (congestive heart failure) Chronic anemia Chronic kidney failure Congestive heart failure Echo 03/06/2021 1. Complete two-dimensional, color flow and Doppler transthoracic echocardiogram is performed. 2. Left ventricular chamber dimension is mildly enlarged. 3. Left ventricular systolic function is mildly reduced, estimated at 55-60%. 4. There is severely increased left ventricular wall thickness. Speckled appearance of the myocardium. 5. The left ventricular diastolic function is grade I diastolic dysfunction. 6. Left atrial chamber dimension is mildly enlarged. 7. There is moderate aortic valve sclerosis. 8. The mitral valve annulus is severely calcified. 9. There is mild mitral valve regurgitation. 10. The mitral valve has thickened leaflets. 11. There is mild tricuspid valve regurgitation. 12. There is mild pulmonic regurgitation. Coronary artery disease With non STEMI in December 2019, with stent placed to the LAD. Depression with anxiety Diabetic ketoacidosis DVT prophylaxis Elevated lipase Elevated troponin Employs prosthetic leg End-stage renal disease on hemodialysis Erythropoietin deficiency anemia Gastric ulcer On endoscopy per Dr. Pacheco in June 2020. Gastroesophageal reflux disease Guillain-Walcott Hyperkalemia Hypertension Hypertensive urgency Leukocytosis Nausea & vomiting Noncompliance Pneumonia Pulmonary edema Renal osteodystrophy Seizure Secondary to hypoglycemia. Smoking ST elevation myocardial infarction (STEMI) (~06/26/20) Secondary to abrupt stent thrombosis of the LAD. Tobacco dependence Type 1 diabetes mellitus Diagnosed at the age of 10. Complicated by retinopathy, nephropathy, and neuropathy. Hemoglobin A1c was 7.6% in July 2020. Upper GI bleed Vitamin D deficiency disease Weakness Surgical History Surgical History History of endoscopy (~06/27/20) History of femoropopliteal bypass 02/04/21 left common femoral endarterectomy with left femoral to below-knee popliteal artery bypass History of heart artery stent Stent in the LAD in December 2019. Patient had abrupt stent thrombosis of the previously placed stent to the LAD on June 26, 2020 left coronary with extraction thrombectomy and stenting distal to the original stent with upsizing of the original stent. History of spinal surgery Neurostimulator in place. History of transmetatarsal amputation of left foot 02/04/21 at [facility]. Status post above-knee amputation of left lower extremity February 2021 at [facility] Status post below knee amputation of right lower extremity (~12/02/19) Performed [facility]. Status post cataract extraction Status post creation of arteriovenous fistula Left upper extremity. Status post hemorrhoidectomy Family History Family History Father Hypertension Sibling Multiple myeloma Hypertension Mother Acute myelogenous leuke
== END 2022-10-24 18:44 | disposition short-term general hospital (02) ==
PROVIDERS: Emergency Provider Emergency Medicine; PCP Emergency Medicine
DX: A41.9 Sepsis, unspecified organism (principal); N49.3 Fournier gangrene; N39.0 Urinary tract infection, site not specified; E10.69 Type 1 diabetes mellitus with other specified complication; M86.9 Osteomyelitis, unspecified; E10.65 Type 1 diabetes mellitus with hyperglycemia; E10.52 Type 1 diabetes mellitus with diabetic peripheral angiopathy with gangrene; I73.9 Peripheral vascular disease, unspecified; E87.5 Hyperkalemia; R91.8 Other nonspecific abnormal finding of lung field; Z20.822 Contact with and (suspected) exposure to COVID-19; E10.22 Type 1 diabetes mellitus with diabetic chronic kidney disease; N18.6 End stage renal disease; I13.2 Hypertensive heart and chronic kidney disease with heart failure and with stage 5 chronic kidney disease, or end stage renal disease; I50.9 Heart failure, unspecified; D63.1 Anemia in chronic kidney disease; E10.319 Type 1 diabetes mellitus with unspecified diabetic retinopathy without macular edema; E10.21 Type 1 diabetes mellitus with diabetic nephropathy; E10.40 Type 1 diabetes mellitus with diabetic neuropathy, unspecified; I25.10 Atherosclerotic heart disease of native coronary artery without angina pectoris; G61.0 Guillain-Barre syndrome; N25.0 Renal osteodystrophy; I25.2 Old myocardial infarction; N40.0 Benign prostatic hyperplasia without lower urinary tract symptoms; F41.8 Other specified anxiety disorders; E55.9 Vitamin D deficiency, unspecified; F17.210 Nicotine dependence, cigarettes, uncomplicated; Z99.2 Dependence on renal dialysis; Z89.612 Acquired absence of left leg above knee; Z89.511 Acquired absence of right leg below knee; Z95.1 Presence of aortocoronary bypass graft; Z87.440 Personal history of urinary (tract) infections; Z87.01 Personal history of pneumonia (recurrent); Z95.5 Presence of coronary angioplasty implant and graft; Z96.82 Presence of neurostimulator; Z98.49 Cataract extraction status, unspecified eye; Z79.02 Long term (current) use of antithrombotics/antiplatelets; Z79.4 Long term (current) use of insulin; Z79.82 Long term (current) use of aspirin; I51.7 Cardiomegaly
CPT/HCPCS: 36415; 71250; 74176; 80053; 81001; 82010; 82948; 83605; 83735; 84100; 85025; 87040; 87077; 87086; 87147; 87181; 87186; 87636; 93971; 96365; 96367; 96375; 99285; J0610; J0696; J1815; J3370

== ENCOUNTER 2022-11-25 05:48 | Observation (INO) | payer OTHER, SELFPAY ==
[2022-11-25] VITALS (39 sets, daily range): BP systolic 98–161; BP diastolic 63–85; PULSE 70–102; RESP 11–20; TEMP 36–36.8; O2SAT 68–100; BMI 40.8
--- NOTE | ~2022-11-25 | XR_ITS ---
EXAMINATION: XR chest 1V portable DATE: 11/25/2022 07:01 INDICATION: Decreased responsiveness. TECHNIQUE: A single frontal view of the chest was obtained. COMPARISON: Chest single view 09/26/2022 FINDINGS: There is a diffuse interstitial pattern, consistent mild pulmonary edema. There are airspac e opacities in left mid and lower lung zones. No pleural effusion or pneumothorax. Cardiomegaly is no carson. A right internal jugular central venous catheter is seen with tip in the right atrium. IMPRESSION: 1. Mild pulmonary edema. 2. Airspace opacities in left mid and lower lung zones, consistent with atelectasis versus pneumonia. 3. Cardiomegaly. Reviewed, dictated and finalized at location A. BUILDER IMPRESSION: 1. Mild pulmonary edema. 2. Airspace opacities in left mid and lower lung zones, consistent with atelect asis versus pneumonia. 3. Cardiomegaly.
--- NOTE | ~2022-11-25 | CT_ITS ---
EXAMINATION: CT brain wo con DATE: 11/25/2022 06:42 INDICATION: Decreased responsiveness. TECHNIQUE: Computed tomography (CT) of the head was performed without intravenous contrast. The mA wa s adjusted according to patient size. Iterative reconstruction technique was employed. The dose-lengt h product was 605.33 mGy-cm. COMPARISON: Head CT 09/26/2022 FINDINGS: There is chronic encephalomalacia in anteroinferior right frontal lobe. There is chronic en cephalomalacia in anterior and anteroinferior left frontal lobe. There is chronic encephalomalacia in the anteroinferior temporal lobes. There is an old lacunar infarct in the angelito. There are scattered areas of low attenuation in the cerebral white matter. There is no intracranial hemorrhage, acute inf arction, or abnormal intracranial mass lesion. The ventricles are normal in size. There is mild mucos al thickening in the paranasal sinuses. There are likely changes of left ocular lens replacement surg tyrone. There is a small left mastoid effusion. There are widespread arterial calcifications. IMPRESSION: 1. Chronic encephalomalacia in the frontal and temporal lobes in a distribution typical of traumatic brain injury. 2. Old lacunar infarct in the angelito. 3. Stable moderate nonspecific cerebral white matter disease, which likely represents chronic small v essel ischemic disease. Reviewed, dictated and finalized at location A. [employer] IMPRESSION: 1. Chronic encephalomalacia in the frontal and temporal lobes in a distribution typical of traumatic brain injury. 2. Old lacunar infarct in the angelito. 3. Stable moderate nonspecific cerebral white matter disease, which likely repr esents chronic small vessel ischemic disease.
--- NOTE | 2022-11-25 06:01 | ECG_ITS ---
Measurements Intervals [place] Rate: 69 P: 37 ME: 169 QRS: 48 QRSD: 88 T: 140 QT: 445 QTc: 479 Interpretive Statements SINUS RHYTHM LEFT VENTRICULAR HYPERTROPHY AND ST-T CHANGE BORDERLINE ST-T WAVE ABNORMALITY- DIFFUSE LEADS BASELINE ARTIFACT- I, II, III, AVF BORDERLINE ECG COMPARED TO ECG 09/26/2022 19:07:54 ST (T WAVE) DEVIATION NOW PRESENT Electronically Signed On 11-25-2022 16:26:20 DAIRY FARMER by Edmond Elias D.O.
[2022-11-25 06:16] LABS: Base Excess ABG -0.1 mEq/l (+/-2.0); Carboxyhemoglobin 0.4 % THb (0-2.0); Fractional Inspired Oxygen 21 %; HCO3 ABG 25.4 mEq/l (22.0-26.0); Methemoglobin ABG 0.4 %THb (0-1.5); Oxygen Content ABG 12.1 %vol (16.0-22.0); Oxygen Saturation ABG 94.9 % (95.0-100.0); Oxyhemoglobin 92.9 % THb (90.0-100.0); PCO2 ABG 45.3 mmHg (35.0-45.0); PO2 ABG 76.5 mmHg (80.0-100.0); PO2 FiO2 Ratio Arterial Blood 3.64 %; Reduced Hemoglobin 6.3 %THb (0-5.0); Total Hemoglobin 9.2 g/dL (12.0-18.0); pH ABG 7.367 (7.350-7.450)
[2022-11-25 06:17] LABS: Modified Allen's Test Pass; Site Drawn LEFT RADIAL
[2022-11-25 06:41] LABS: Appearance Urine Slightly Cloudy (Clear); Bilirubin Urine Negative (Negative); Blood Urine 3+ (Negative); Color Urine Dark Yellow (Yellow); Glucose Urine UA 1+ mg/dL (Negative); Ketones Urine Negative (Negative); Leukocyte Esterase Ur 3+ LEU/UL (Negative); Nitrate Urine Negative (Negative); Protein Urine 3+ mg/dL (Negative); Urobilinogen Urine 0.2 mg/dL (<2.0); pH Urine 7.5 (5.0-9.0)
[2022-11-25 06:51] LABS: Bacteria Urine Trace /hpf; Mucus Urine Rare /lpf; Squamous Epithelial Cell Urine Rare /hpf (Few); WBC Urine >75 /hpf
[2022-11-25 07:07] LABS: Add Urine Microscopic? YES
--- NOTE | 2022-11-25 07:08 | ED.AMS ---
HPI - Altered Mental Status General Chief Complaint: Altered Mental Status Stated Complaint: lethargic Time Seen by Provider: 11/25/22 06:57 History of Present Illness HPI narrative: 57-year-old male with extensive past medical history including bilateral AKA, end-stage renal disease on dialysis, type 1 diabetes, extensive sacral decubitus ulcers requiring multiple debridements and recent history of Thad's gangrene presents to the emergency department for evaluation of altered mental status. Patient had a recent hospitalization at [facility] for debridement of a sacral decubitus ulcer with extension into his groin with concern for Thad's gangrene. Patient was discharged from [facility] emergency back to [facility] on 18 November. Patient does receive dialysis on Monday and has been getting daptomycin and ertapenem on Monday and Monday with his dialysis. [facility] states that they went to check on him today and found that he had decreased responsiveness. Upon arrival to the emergency department patient's pupils were pinpoint patient was somnolent but was responsive to adverse stimuli. Patient was treated with Narcan and had an improvement of his mental status. Patient states that he did have [place]. After treatment with Narcan patient was more alert and oriented. Patient was aware that he was at [facility] and denies any complaints. Related Data Home Medications Medication Instructions Recorded Confirmed vitamin B complex-vitamin C-folic 1 tablet PO DAILY 07/23/20 09/28/22 acid 0.8 mg tablet (Dang-Nilsa) ropinirole 0.25 mg tablet 0.25 mg PO HS 01/11/21 09/28/22 ticagrelor 60 mg tablet (Brilinta) 60 mg PO BID 06/23/22 09/29/22 albuterol sulfate 90 mcg/actuation 1 puff inhalation Q6H PRN 07/09/22 09/28/22 aerosol inhaler Shortness Of Breath aspirin 81 mg tablet 81 mg PO DAILY 07/09/22 09/28/22 cholecalciferol (vitamin D3) 25 25 mcg PO DAILY 07/09/22 09/28/22 mcg (1,000 unit) tablet (Vitamin D3) magnesium hydroxide 400 mg/5 mL 30 ml PO HS PRN Constipation 07/28/22 09/28/22 oral suspension (Milk of Magnesia) omeprazole 20 mg capsule,delayed 20 mg PO DAILY 07/28/22 09/28/22 release cyanocobalamin (vitamin B-12) 1,000 mcg PO DAILY 08/25/22 09/28/22 1,000 mcg capsule vitamin B complex 1 cap PO DAILY 08/25/22 09/28/22 Adults Multivitamin 1 tab-cap PO DAILY 09/28/22 09/28/22 amino acids-protein hydrolysate 17 1 ea PO TID 09/28/22 09/28/22 gram-100 kcal/30 mL oral liquid (Pro-Stat AWC) ascorbic acid (vitamin C) 500 mg 500 mg PO DAILY 09/28/22 09/28/22 chewable tablet insulin detemir U-100 100 unit/mL 15 unit subcut BID 09/28/22 09/28/22 (3 mL) subcutaneous pen (Levemir FlexTouch U-100 Insulin) Allergies Allergy/AdvReac Type Severity Reaction Status Date / Time scopolamine Allergy Severe Unresponsiv Verified 09/26/22 16:52 e Review of Systems Review of Systems: ROS unobtainable: Yes unobtainable due to medical condition [facility] Past Medical History Medical History (Updated 11/25/22 @ 16:13 by Jony Martino MD) Acute respiratory failure with hypoxia Amputation above knee Anemia Anemia Anxiety Benign prostatic hyperplasia Bradycardic cardiac arrest (~07/23/20) In the setting of severe hyperkalemia, acute pulmonary edema, and respiratory failure CHF (congestive heart failure) Chronic anemia Chronic kidney failure Colostomy in place Congestive heart failure Echo 03/06/2021 1. Complete two-dimensional, color flow and Doppler transthoracic echocardiogram is performed. 2. Left ventricular chamber dimension is mildly enlarged. 3. Left ventricular systolic function is mildly reduced, estimated at 55-60%. 4. There is severely increased left ventricular wall thickness. Speckled appearance of the myocardium. 5. The left ventricular diastolic function is grade I diastolic dysfunction. 6. Left atrial chamber dimension is mi
[2022-11-25] MEDS: NALOXONE HCL INJ 2 MG/2 ML AMP 1 MG IV PUSH (07:12)
[2022-11-25 07:25] LABS: Influenza A QL RT-PCR Negative (Negative); Influenza B QL RT-PCR Negative (Negative); SARS-CoV-2 RNA PCR Negative
[2022-11-25 07:27] LABS: Basophils Absolute Auto 0.2 K/mm3 (0.0-0.1); Basophils Percent Auto 0.8 % (0.2-1.2); Eosinophils Absolute Auto 0.7 K/mm3 (0-0.3); Eosinophils Percent Auto 3.2 % (0-4.4); Hematocrit 30.5 % (42.0-52.0); Hemoglobin 9.1 g/dL (14.0-18.0); Immature Granulocyte Absolute 0.23 K/mm3 (0.00-0.031); Lymphocytes Absolute Auto 2.06 K/mm3 (0.9-3.2); Lymphocytes Percent Auto 9.1 % (18.3-44.2); Mean Corpuscular HGB Conc 29.8 g/dl (32-36); Mean Corpuscular Hemoglobin 30.7 pg (26-34); Mean Platelet Volume 9.6 fl (7.4-10.4); Monocytes Absolute Auto 1.1 K/mm3 (0.1-0.6); Neutrophils Absolute Auto 18.3 K/mm3 (1.3-6.7); Neutrophils Percent Auto 80.9 % (45.5-73.1); Platelet Count Result 382 k/mm3 (150-375); Red Blood Count 2.96 M/mm3 (4.6-6.20); Red Cell Distribution Width 20.5 % (11.5-14.5); White Blood Count 22.6 K/mm3 (4.5-10.0)
[2022-11-25 07:33] LABS: INR 1.2; Prothrombin Time 14.7 Seconds (11.1-14.7)
[2022-11-25 07:34] LABS: Partial Thromboplastin Time 41.1 SECONDS (22.3-36.8)
[2022-11-25 07:39] LABS: Anisocytosis 2+ (NORMAL); Macrocytosis 1+ (NORMAL); Platelet Estimate Adequate (Adequate); Schistocytes None Seen (NORMAL)
[2022-11-25 08:18] LABS: Lactic Acid Reflex 0.8 mmol/L (0.7-2.0)
[2022-11-25 08:20] LABS: Alanine Aminotransferase 18 U/L (6-50); Albumin Level 2.2 g/dL (3.5-5.1); Alkaline Phosphatase 100 U/L (38-126); Anion Gap 5 mmol/L (8-16); Aspartate Amino Transferase 68 U/L (17-59); Bilirubin,Total 0.2 mg/dL (0.2-1.3); Blood Urea Nitrogen 39 mg/dL (9-20); CRP 7.2 mg/dL (<1.0); Calcium 8.4 mg/dL (8.4-10.2); Carbon Dioxide 22 mmol/L (22-30); Chloride 106 mmol/L (98-107); Estimated Glomerular Filt Rate 24; Glucose 175 mg/dL (65-110); Sodium 133 mmol/L (137-145)
[2022-11-25 08:34] LABS: Troponin I 0.572 ng/mL (0.000-0.034)
--- NOTE | 2022-11-25 08:46 | ECG_ITS ---
Measurements Intervals [place] Rate: 79 P: 46 MN: 167 QRS: 54 QRSD: 81 T: 89 QT: 401 QTc: 462 Interpretive Statements SINUS RHYTHM LEFT VENTRICULAR HYPERTROPHY AND ST-T CHANGE [VOLTAGE CRITERIA PLUS ST/T ABNORMALITY] ABNORMAL ECG COMPARED TO ECG 11/25/2022 06:56:48 NO SIGNIFICANT CHANGES Electronically Signed On 12-16-2022 14:26:37 FISHER SEAL by Chance Landis M.D.
[2022-11-25 10:19] LABS: Glucose Point of Care 121 mg/dl (65-105)
[2022-11-25 11:48] LABS: Troponin I 0.515 ng/mL (0.000-0.034)
--- NOTE | 2022-11-25 11:57 | PC.NURSE ---
phone number with update.
--- NOTE | 2022-11-25 12:33 | PM.IMHP ---
H&P: HPI History of Present Illness Date/Time: 11/25/22 12:33 Chief Complaint: Altered mental status Narrative: This is a 57-year-old male patient who has end-stage renal disease and has dialysis on Monday. The patient resides at a assisted facility [facility] and the staff found him to be confused today. The patient was recently released from [facility] and had wound care for his sacral area as well as his stumps. The patient is currently on IV antibiotics on the days of his dialysis. The patient now has scabs on his penis and his scrotum is healed from the last time I saw him. He currently has a colostomy in place. His white count is 22.6 today. H&H is 9.1 and 30.5. Sodium is 133 which is his baseline. Creatinine is 2.8. He is a dialysis patient. Troponin 0.572 and 0.515. Patient has no complaints of any chest pain. His C reactive protein is 7.2. Urine is positive for UTI. Patient is negative for influenza A/B and COVID. Patient was given Narcan in the emergency room and the patient did wake up but was still somewhat confused. The patient was given a L of IV fluids and Epogen. Dr. Martino was consulted. His blood pressure is 103/65. He was also given albumin. The patient is being admitted to observation status on the date of service of 11/25/2022 Review of Systems Review of Systems: See HPI All systems reviewed & are unremarkable except as noted in HPI and below Constitutional: Constitutional: Reports as per HPI and Reports no additional constitutional complaints Eyes: Eyes: Reports as per HPI and Reports no additional eye complaints ENT: Reports system reviewed and no additional complaints, except as documented and Reports Normal hearing present Cardiovascular: Cardiovascular: Reports no additional cardiovascular complaints Respiratory: Respiratory: Reports no additional respiratory complaints and Reports no additional respiratory complaints Gastrointestinal: Gastrointestinal: Reports as per HPI and Reports no additional gastrointestinal complaints Musculoskeletal: Musculoskeletal: Reports no additional musculoskeletal complaints Integumentary/Breasts: Skin/Breast: Reports system reviewed and no additional complaints, except as docu and Reports as per HPI Neurologic: Reports system reviewed and no additional complaints, except as documented, Reports as per HPI and Reports Normal hearing present Psychiatric: Psychiatric: Reports no additional psychiatric complaints and Reports as per HPI Endocrine: Endocrine: Reports no additional endocrine complaints Hematologic/Lymphatic: Hematologic/Lymphatic: Reports no additional hematologic/lymphatic complaints Allergic/Immunologic: Allergic/Immunologic: Reports no additional allergic/immunologic complaints [facility] Past Medical History Medical History Acute respiratory failure with hypoxia Amputation above knee Anemia Anemia Anxiety Benign prostatic hyperplasia Bradycardic cardiac arrest (~07/23/20) In the setting of severe hyperkalemia, acute pulmonary edema, and respiratory failure CHF (congestive heart failure) Chronic anemia Chronic kidney failure Colostomy in place Congestive heart failure Echo 03/06/2021 1. Complete two-dimensional, color flow and Doppler transthoracic echocardiogram is performed. 2. Left ventricular chamber dimension is mildly enlarged. 3. Left ventricular systolic function is mildly reduced, estimated at 55-60%. 4. There is severely increased left ventricular wall thickness. Speckled appearance of the myocardium. 5. The left ventricular diastolic function is grade I diastolic dysfunction. 6. Left atrial chamber dimension is mildly enlarged. 7. There is moderate aortic valve sclerosis. 8. The mitral valve annulus is severely calcified. 9. There is mild mitral valve regurgitation. 10. The mitral valve has thickened leaflets. 11. There is
--- NOTE | 2022-11-25 13:16 | PC.NURSE ---
Misty from [facility] updated regarding pt admit.
--- NOTE | 2022-11-25 14:06 | PC.NURSE ---
josee diego to change pt to med tele.
[2022-11-25 14:18] LABS: Glucose Point of Care 125 mg/dl (65-105)
--- NOTE | 2022-11-25 14:34 | PC.NURSE ---
wound care nurse at bedside at this time.
--- NOTE | 2022-11-25 14:57 | PC.NURSE ---
Pt to Diaylsis.
--- NOTE | 2022-11-25 15:19 | PCWOUND ---
WOCN NOTE Assessed patient in the ER. ostomy appliance is dry and intact. Stoma is red and moist. brown stool present in the appliance. ordered supplies for bedside.
--- NOTE | 2022-11-25 15:22 | PM.CNNEP ---
Assessment and Plan Assessment and plan (1) End stage renal disease: Code(s): N18.6 - End stage renal disease Status: Chronic Assessment and Plan: HD today and continue M/W/F dialysis schedule follow electrolytes, volume status, and clearance (2) Altered mental status: Code(s): R41.82 - Altered mental status, unspecified Status: Acute Assessment and Plan: suspicion falls on medications, specifically narcotics some improvement in mentation with narcan r/o possible infection uremia is possible but seems less likely give compliance with dialysis follow mentation (3) Cellulitis: Code(s): L03.90 - Cellulitis, unspecified Status: Acute Assessment and Plan: continue outpatient antibiotics as outlined follow culture data repeat culture are pending (4) Decubitus ulcers: Code(s): L89.90 - Pressure ulcer of unspecified site, unspecified stage Status: Chronic Assessment and Plan: wound care consulted follow culture data continue outpatient antibiotic therapy. (5) Diabetes: Qualifiers: Diabetes mellitus complication detail: with other circulatory complications Diabetes mellitus complication status: with circulatory complication Diabetes mellitus type: type 1 Qualified Code(s): E10.59 - Type 1 diabetes mellitus with other circulatory complications Code(s): E11.9 - Type 2 diabetes mellitus without complications Status: Chronic Assessment and Plan: follow accuchecks glycemic control Will continue to follow. History of Present Illness Reason for Consult Consult date: 11/25/22 Reason for consult: end stage renal disease Chief Complaint Chief complaint: UTI/AMS History of Present Illness Narrative: The patient is a 56-year-old male with extensive past medical history as outlined below who presented to [facility] Emergency room from his nursing facility for further evaluation of altered mental status. The patient is currently residing in nursing facility after his long / protracted hospitalization at [facility] for the last month. Apparently, the staff found him today to be quite confused. As the patient is normally alert and oriented x3, the staff was concerned that some other issues/ problem may be present and hence he was transferred to the ER for further assessment. As already mentioned above, patient was just recently discharged from [facility] for treatment of a dex extensive sacral and lower extremity wounds. he is currently on broad-spectrum IV antibiotic therapy that is being dosed with dialysis since his discharge from the hospital. Further workup and evaluation emergency room demonstrated the patient to be somewhat confused and the nursing facility Mar does mention that he has been taking narcotics for his pain. He received a dose of IV Narcan with some improvement in his mentation but he was still not back to baseline. Subsequent laboratory findings were significant for a white blood cell count of 22.6, anemia, and chronic hyponatremia. His urinalysis was suggestive of urinary tract infection and his influenza a/P in COVID-19 testing were negative. Given these constellation of symptoms as well as laboratory findings, he was admitted to the hospital for further evaluation and treatment. Renal consultation was requested due to his end-stage renal disease. The patient is quite familiar to me as I have taking care of him multiple times before with regard to his previous hospitalizations at [facility]. The patient normally dialyzes on a Monday, Monday, Monday, dialysis schedule under the care of Dr. Luke Huynh at [facility]. His last dialysis treatment was on (11/23/22). He is currently receiving dialysis at the time of my visit (seen on HD at 3:10PM). Currently, at the time my visit, he appears in no acut
[2022-11-25] MEDS: HEPARIN SODIUM 1,000 UNITS/ML VIAL 1000 UNITS IV PUSH ×2 (16:21→16:23)
[2022-11-25] MEDS: HEPARIN SODIUM 1,000 UNITS/ML VIAL 500 UNITS IV PUSH (16:22)
[2022-11-25] MEDS: SODIUM CHLORIDE 0.9% IV 1,000 ML 999 ML IV CONT (16:22)
[2022-11-25 17:03] LABS: Glucose Point of Care 175 mg/dl (65-105)
--- NOTE | 2022-11-25 18:06 | PC.NURSE ---
This patient, Ish Corley, was admitted to [facility] Surg Room 330-01. Patient/family oriented to hospital policies and general routines including ID bracelet, bed and alarms, visiting hours, pain management, procedures, bathroom and other care routines, personal items, smoking policy, room service/diet, and visiting hours. Information on how to activate the Rapid Response Team has been discussed. Patient/Family are encouraged to report perceived risks to care and to ask questions if they do not understand what they are told or what they should do.
[2022-11-25] MEDS: HEPARIN SODIUM 5,000 UNITS/ML VIAL 5000 UNITS SUB-Q (20:58)
[2022-11-25 21:57] LABS: Glucose Point of Care 356 mg/dl (65-105)
[2022-11-25] MEDS: calcitrioL 0.25 MCG CAPSULE 1.25 MCG PO (22:27)
[2022-11-25] MEDS: PANTOPRAZOLE 40 MG TABLET PO (22:27)
[2022-11-25] MEDS: NICOTINE (*PBKC) 21 MG PATCH 1 PATCH TRANSDERM (22:28)
[2022-11-25] MEDS: CINACALCET 30 MG TABLET 90 MG PO (22:28)
[2022-11-25] MEDS: INSULIN GLARGINE (*BKC) 100 UNITS/ML 10 UNITS SUB-Q (22:33)
[2022-11-25] MEDS: DAPTOmycin 600 MG in SODIUM CHLORIDE 0.9% IV 50 ML 100 MG IVPB (23:01)
[2022-11-26] VITALS (8 sets, daily range): BP systolic 160–184; BP diastolic 56–89; PULSE 90–108; RESP 16–24; TEMP 36.2–36.6; O2SAT 98–100
[2022-11-26 03:08] LABS: Glucose Point of Care 388 mg/dl (65-105)
[2022-11-26 06:40] LABS: Basophils Absolute Auto 0.1 K/mm3 (0.0-0.1); Basophils Percent Auto 0.7 % (0.2-1.2); Eosinophils Absolute Auto 0.2 K/mm3 (0-0.3); Eosinophils Percent Auto 1.2 % (0-4.4); Hematocrit 28.3 % (42.0-52.0); Hemoglobin 8.7 g/dL (14.0-18.0); Immature Granulocyte Absolute 0.09 K/mm3 (0.00-0.031); Immature Granulocyte Percent A 0.6 % (0-0.5); Lymphocytes Absolute Auto 1.36 K/mm3 (0.9-3.2); Lymphocytes Percent Auto 9.1 % (18.3-44.2); Mean Corpuscular HGB Conc 30.7 g/dl (32-36); Mean Corpuscular Hemoglobin 30.1 pg (26-34); Mean Corpuscular Volume 97.9 fl (80-100); Mean Platelet Volume 9.8 fl (7.4-10.4); Monocytes Absolute Auto 0.8 K/mm3 (0.1-0.6); Monocytes Percent Auto 5.6 % (2.6-8.5); Neutrophils Absolute Auto 12.3 K/mm3 (1.3-6.7); Neutrophils Percent Auto 82.8 % (45.5-73.1); Platelet Count Result 443 k/mm3 (150-375); Red Blood Count 2.89 M/mm3 (4.6-6.20); Red Cell Distribution Width 20.9 % (11.5-14.5); White Blood Count 14.9 K/mm3 (4.5-10.0)
[2022-11-26 06:47] LABS: Lactic Acid Reflex 2.9 mmol/L (0.7-2.0)
[2022-11-26 06:48] LABS: Alanine Aminotransferase 18 U/L (6-50); Albumin Level 2.5 g/dL (3.5-5.1); Alkaline Phosphatase 133 U/L (38-126); Anion Gap 9 mmol/L (8-16); Aspartate Amino Transferase 26 U/L (17-59); Bilirubin,Total 0.3 mg/dL (0.2-1.3); Blood Urea Nitrogen 30 mg/dL (9-20); Calcium 8.2 mg/dL (8.4-10.2); Carbon Dioxide 24 mmol/L (22-30); Chloride 98 mmol/L (98-107); Estimated Glomerular Filt Rate 31; Glucose 354 mg/dL (65-110); Magnesium 1.9 mg/dL (1.6-2.3); Potassium 4.5 mmol/L (3.4-5.0); Sodium 131 mmol/L (137-145)
[2022-11-26 08:11] LABS: Glucose Point of Care 311 mg/dl (65-105)
[2022-11-26] MEDS: INSULIN ASPART (*BKC) 100 UNITS/ML SUB-Q ×3 (08:24→17:07)
[2022-11-26] MEDS: INSULIN GLARGINE (*BKC) 100 UNITS/ML 10 UNITS SUB-Q ×2 (08:25→21:12)
[2022-11-26] MEDS: VITAMIN B COMPLEX CAPSULE 1 CAP PO (08:26)
[2022-11-26] MEDS: GABAPENTIN 300 MG CAPSULE PO (08:26)
[2022-11-26] MEDS: ASCORBIC ACID 500 MG TABLET PO (08:26)
[2022-11-26] MEDS: TICAGRELOR 60 MG TABLET PO (08:26)
[2022-11-26] MEDS: HEPARIN SODIUM 5,000 UNITS/ML VIAL 5000 UNITS SUB-Q ×2 (08:26→21:10)
[2022-11-26] MEDS: CYANOCOBALAMIN 1,000 MCG TABLET 1000 MCG PO (08:26)
[2022-11-26] MEDS: ATORVASTATIN 40 MG TABLET 80 MG PO (08:26)
[2022-11-26] MEDS: SERTRALINE HCL 50 MG TABLET 100 MG PO (08:26)
[2022-11-26] MEDS: lisinopriL 10 MG TABLET PO (08:27)
[2022-11-26] MEDS: ASPIRIN 81 MG CHEWABLE TABLET PO (08:27)
[2022-11-26] MEDS: NICOTINE (*PBKC) 21 MG PATCH 1 PATCH TRANSDERM (08:27)
[2022-11-26] MEDS: CHOLECALCIFEROL 1,000 UNITS TABLET 1000 UNITS PO (08:27)
[2022-11-26] MEDS: PANTOPRAZOLE 40 MG TABLET PO ×2 (09:05→21:13)
[2022-11-26 09:34] LABS: Reflex Lactic Acid Yes or No Add Lactic
[2022-11-26 10:20] LABS: Lactic Acid 2.2 mmol/L (0.7-2.0)
[2022-11-26] MEDS: ACETAMINOPHEN 325 MG TABLET 650 MG PO (10:27)
[2022-11-26] MEDS: LORazepam (*CRX) 0.5 MG TABLET PO ×2 (10:57→17:07)
[2022-11-26 11:52] LABS: Glucose Point of Care 269 mg/dl (65-105)
[2022-11-26] MEDS: SOD HYPOCHLORITE 1/4 STRENGTH 473 ML 1 APPLIC TOPICAL ×2 (12:15→21:13)
--- NOTE | 2022-11-26 12:38 | PM.PNNEP ---
Progress Note: A&P Assessment and Plan (1) End stage renal disease: Code(s): N18.6 - End stage renal disease Status: Chronic Assessment and Plan: HD on Monday volume status looks okay (2) Altered mental status: Code(s): R41.82 - Altered mental status, unspecified Status: Acute Assessment and Plan: he looks back to baseline now. (3) Cellulitis: Code(s): L03.90 - Cellulitis, unspecified Status: Acute Assessment and Plan: continue outpatient antibiotics as outlined Blood cultures negative so far (4) Decubitus ulcers: Code(s): L89.90 - Pressure ulcer of unspecified site, unspecified stage Status: Chronic Assessment and Plan: wound care consulted follow culture data continue outpatient antibiotic therapy. (5) Diabetes: Qualifiers: Diabetes mellitus complication detail: with other circulatory complications Diabetes mellitus complication status: with circulatory complication Diabetes mellitus type: type 1 Qualified Code(s): E10.59 - Type 1 diabetes mellitus with other circulatory complications Code(s): E11.9 - Type 2 diabetes mellitus without complications Status: Chronic Assessment and Plan: on Accu-Cheks and sliding-scale insulin per hospitalist. Patient encouraged to let the hospital control his sugar Subjective Date/time seen: 11/26/22 12:38 Interval history: 11/26/2022 patient is lying in bed. at bedside. patient is upset because he wants to control his own insulin. The nurses want to see the bottles but he has none. He actually uses pens according to Mrs. Corley but he does not have them either. I encouraged him to let the hospital control his sugars. He feels he does not get enough insulin. We discussed. Review of Systems Cardiovascular: Cardiovascular: Reports no additional cardiovascular complaints Respiratory: Respiratory: Reports no additional respiratory complaints Gastrointestinal: Gastrointestinal: Reports no additional gastrointestinal complaints Genitourinary: Genitourinary: Reports no additional male genitourinary complaints Exam Narrative: WDWN in NAD skin no rash head ncat lungs clear cor reg no rub or gallop abd BS+ nontender and soft ext no edema. Objective Data Vital Signs Vital Signs: Vital Signs - 24 hr 11/25/22 12:50 11/25/22 13:00 11/25/22 13:15 Temperature Pulse Rate 88 85 87 Respiratory Rate 14 15 13 Blood Pressure Pulse Oximetry Oxygen Delivery 11/25/22 13:30 11/25/22 13:45 11/25/22 13:58 Temperature Pulse Rate 86 85 Respiratory Rate 15 19 Blood Pressure 142/82 H Pulse Oximetry 100 Oxygen Delivery 11/25/22 14:00 11/25/22 14:57 11/25/22 15:00 Temperature 98.2 F Pulse Rate 91 89 Respiratory Rate 18 Blood Pressure 136/80 125/64 132/71 Pulse Oximetry 68 L Oxygen Delivery 11/25/22 15:30 11/25/22 16:00 11/25/22 16:30 Temperature Pulse Rate 88 90 94 Respiratory Rate Blood Pressure 149/79 H 123/65 114/65 Pulse Oximetry Oxygen Delivery 11/25/22 17:00 11/25/22 17:30 11/25/22 18:00 Temperature Pulse Rate 98 96 99 Respiratory Rate Blood Pressure 98/64 L 102/68 100/69 Pulse Oximetry Oxygen Delivery 11/25/22 18:01 11/25/22 21:34 11/25/22 20:00 Temperature 98.2 F 97.7 F Pulse Rate 93 102 H 98 Respiratory Rate 18 20 Blood Pressure 111/66 161/76 H Pulse Oximetry 100 Oxygen Delivery 11/25/22 20:00 11/26/22 00:00 11/26/22 04:00 Temperature Pulse Rate 97 108 H 97 Respiratory Rate 18 Blood Pressure Pulse Oximetry 99 Oxygen Delivery Room Air 11/26/22 05:35 Temperature 97.8 F Pulse Rate 93 Respiratory Rate 18 Blood Pressure 164/83 H Pulse Oximetry 98 Oxygen Delivery Intake/Output Intake/Output: Intake & Output 11/23/22 11/24/22 11/25/22 11/26/22 23:59 23:59 23:59 23:59 Intake Total 100 1150
--- NOTE | 2022-11-26 14:11 | PM.IMPN ---
Progress Note: A&P Assessment and Plan (1) Altered mental status: Code(s): R41.82 - Altered mental status, unspecified Status: Acute Assessment and Plan: -could be related to medication or infectious process. (2) Cellulitis: Code(s): L03.90 - Cellulitis, unspecified Status: Acute Assessment and Plan: The patient is on 2 antibiotics that he receives during dialysis. Cultures are pending. -tailor antibiotics to culture sensitivities. (3) CHF (congestive heart failure): Qualifiers: Heart failure chronicity: unspecified Heart failure type: unspecified Qualified Code(s): I50.9 - Heart failure, unspecified Code(s): I50.9 - Heart failure, unspecified Status: Acute Assessment and Plan: Diastolic grade 1 according to echo from 2020. -continue with current management. (4) Decubitus ulcers: Code(s): L89.90 - Pressure ulcer of unspecified site, unspecified stage Status: Chronic Assessment and Plan: -wound care consult but greatly be appreciated. -wound cultures have been ordered. -antibiotics will be continued with dialysis. (5) Depression with anxiety: Code(s): F41.8 - Other specified anxiety disorders Status: Acute Assessment and Plan: Continue sertraline (6) Diabetes: Qualifiers: Diabetes mellitus complication detail: with other circulatory complications Diabetes mellitus complication status: with circulatory complication Diabetes mellitus type: type 1 Qualified Code(s): E10.59 - Type 1 diabetes mellitus with other circulatory complications Code(s): E11.9 - Type 2 diabetes mellitus without complications Status: Chronic Assessment and Plan: Accu-Cheks AC and HS with sliding scale insulin and hypoglycemic protocol. Last A1c August of last year was 9.8. 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 Dr. Martino has been consulted. Continue with [facility] (8) HLD (hyperlipidemia): Qualifiers: Hyperlipidemia type: unspecified Qualified Code(s): E78.5 - Hyperlipidemia, unspecified Code(s): E78.5 - Hyperlipidemia, unspecified Status: Chronic Assessment and Plan: Continue with atorvastatin (9) Elevated troponin: Code(s): R77.8 - Other specified abnormalities of plasma proteins Status: Acute Assessment and Plan: He has no complaints of chest pain and his troponins are level. Plan Patient has a history of coronary artery disease and is on Brilinta. Subjective Date/time seen: 11/26/22 14:11 No complaints Exam Narrative: The patient appears to be a sallow color Const: General: cooperative, no acute distress, awake, ill appearing, average body habitus, well nourished and thin Nutritional Appearance: average body habitus, well nourished and thin Orientation/consciousness: oriented to person, oriented to place, oriented to time and patient oriented x3 Limitations: no limitations HENMT: Head: normal to inspection, No palpable skull fracture present, normocephalic and atraumatic Ears: hearing grossly normal bilaterally and external ears normal Face/Nose/Sinus: Normal external nose present and Normal nares present Eyes: General: appearance normal, both eyes and all related structures Alignment and Position: alignment normal Periorbital: periorbital findings normal Eyelids: eyelids normal Sclera: sclerae normal Pupils: Equal, round and reactive pupils present EOM: EOMs intact bilaterally Neck: Neck: normal visual inspection, full ROM, no lymphadenopathy, trachea midline and supple Chest: Chest palpation & inspection: normal inspection of the chest Other: Dialysis catheter intact to right upper chest Resp: Effort & Inspection:
[2022-11-26 16:20] LABS: Glucose Point of Care 247 mg/dl (65-105)
[2022-11-26 21:26] LABS: Glucose Point of Care 298 mg/dl (65-105)
[2022-11-27] VITALS (7 sets, daily range): BP systolic 134–157; BP diastolic 75–97; PULSE 90–101; RESP 14–16; TEMP 36.4–36.6; O2SAT 98–100
[2022-11-27 08:11] LABS: Glucose Point of Care 110 mg/dl (65-105)
[2022-11-27] MEDS: NICOTINE (*PBKC) 21 MG PATCH 1 PATCH TRANSDERM (09:42)
[2022-11-27] MEDS: SERTRALINE HCL 50 MG TABLET 100 MG PO (09:42)
[2022-11-27] MEDS: VITAMIN B COMPLEX CAPSULE 1 CAP PO (09:42)
[2022-11-27] MEDS: ATORVASTATIN 40 MG TABLET 80 MG PO (09:42)
[2022-11-27] MEDS: HEPARIN SODIUM 5,000 UNITS/ML VIAL 5000 UNITS SUB-Q (09:42)
[2022-11-27] MEDS: GABAPENTIN 300 MG CAPSULE PO (09:43)
[2022-11-27] MEDS: CYANOCOBALAMIN 1,000 MCG TABLET 1000 MCG PO (09:43)
[2022-11-27] MEDS: ASCORBIC ACID 500 MG TABLET PO (09:43)
[2022-11-27] MEDS: ASPIRIN 81 MG CHEWABLE TABLET PO (09:43)
[2022-11-27] MEDS: lisinopriL 10 MG TABLET PO (09:43)
[2022-11-27] MEDS: CHOLECALCIFEROL 1,000 UNITS TABLET 1000 UNITS PO (09:43)
[2022-11-27] MEDS: TICAGRELOR 60 MG TABLET PO (09:44)
[2022-11-27] MEDS: PANTOPRAZOLE 40 MG TABLET PO (09:44)
[2022-11-27] MEDS: INSULIN GLARGINE (*BKC) 100 UNITS/ML 10 UNITS SUB-Q (09:46)
--- NOTE | 2022-11-27 10:39 | PM.PNNEP ---
Progress Note: A&P Assessment and Plan (1) End stage renal disease: Code(s): N18.6 - End stage renal disease Status: Chronic Assessment and Plan: HD due on Monday volume status looks okay (2) Altered mental status: Code(s): R41.82 - Altered mental status, unspecified Status: Acute Assessment and Plan: he is a bit confused today. (3) Cellulitis: Code(s): L03.90 - Cellulitis, unspecified Status: Acute Assessment and Plan: continue outpatient antibiotics as outlined Blood cultures negative so far (4) Decubitus ulcers: Code(s): L89.90 - Pressure ulcer of unspecified site, unspecified stage Status: Chronic Assessment and Plan: wound care consulted follow culture data continue outpatient antibiotic therapy. (5) Diabetes: Qualifiers: Diabetes mellitus complication detail: with other circulatory complications Diabetes mellitus complication status: with circulatory complication Diabetes mellitus type: type 1 Qualified Code(s): E10.59 - Type 1 diabetes mellitus with other circulatory complications Code(s): E11.9 - Type 2 diabetes mellitus without complications Status: Chronic Assessment and Plan: on Accu-Cheks and sliding-scale insulin per hospitalist. Patient encouraged to let the hospital control his sugar Subjective Date/time seen: 11/27/22 10:39 Interval history: 11/26/2022 patient is lying in bed. at bedside. patient is upset because he wants to control his own insulin. The nurses want to see the bottles but he has none. He actually uses pens according to Mrs. Corley but he does not have them either. I encouraged him to let the hospital control his sugars. He feels he does not get enough insulin. We discussed. 11/27/2022 Ish is in good spirits. He is a bit confused. He is about to eat breakfast. Exam Narrative: WDWN in NAD skin no rash head ncat lungs clear Bilaterally cor reg no rub or gallop abd BS+ nontender and soft ext 1+ presacral edema. Bilateral leg amputation Objective Data Vital Signs Vital Signs: Vital Signs - 24 hr 11/26/22 14:00 11/26/22 12:00 11/26/22 21:31 Temperature 97.5 F L 97.1 F L Pulse Rate 95 101 H 94 Respiratory Rate 24 H 18 Blood Pressure 160/56 H 184/89 H Pulse Oximetry 100 100 Oxygen Delivery 11/26/22 20:00 11/26/22 20:00 11/27/22 00:00 Temperature Pulse Rate 92 92 90 Respiratory Rate 16 Blood Pressure Pulse Oximetry 99 Oxygen Delivery Room Air 11/27/22 04:00 11/27/22 06:00 11/27/22 08:00 Temperature 97.9 F Pulse Rate 92 92 Respiratory Rate 16 Blood Pressure 157/97 H Pulse Oximetry 98 Oxygen Delivery Room Air Intake/Output Intake/Output: Intake & Output 11/24/22 11/25/22 11/26/22 11/27/22 23:59 23:59 23:59 23:59 Intake Total 100 2410 50 Output Total 2500 350 Balance -2400 2060 50 Meds/Results Medications: Active Medications Generic Name Dose Route Start Last Admin Trade Name Freq PRN Reason Stop Dose Admin Acetaminophen 650 mg 11/25/22 21:02 11/26/22 10:27 Acetaminophen 325 Mg Tablet PO 650 mg Q4H PRN Administration Mild Pain (1-3) Or Fever Albuterol 1 puff 11/25/22 21:02 Albuterol Sulfate (*Sp) Aerosol 1 Puff INHALATION Q6H PRN Shortness Of Breath Ascorbic Acid 500 mg 11/26/22 09:00 11/27/22 09:43 Ascorbic Acid 500 Mg Tablet PO 500 mg DAILY MARTHA Administration Aspirin 81 mg 11/26/22 09:00 11/27/22 09:43 Aspirin 81 Mg Chewable Tablet PO 81 mg DAILY MARTHA Administration Atorvastatin Calcium 80 mg 11/26/22 09:00 11/27/22 09:42 Atorvastatin 40 Mg Tablet PO 80 mg DAILY MARTHA Administration Calcitriol 1.25 mcg 11/25/22 21:20 11/25/22 22:27 Calcitriol 0.25 Mcg Capsule PO 1.25 mcg [id number] MARTHA Administration Cinacalcet 90 mg 11/25/22 21:17 11/25/22 22:28 Cinacal
[2022-11-27 11:59] LABS: Glucose Point of Care 126 mg/dl (65-105)
--- NOTE | 2022-11-27 14:00 | PM.DS ---
DS: Admitting Diagnosis Discharge Date November 27, 2022 Admitting Diagnosis Altered mental status DS: Discharge Diagnosis Discharge Diagnosis (1) Altered mental status: Code(s): R41.82 - Altered mental status, unspecified Status: Acute Assessment and Plan: -could be related to medication or infectious process. (2) Cellulitis: Code(s): L03.90 - Cellulitis, unspecified Status: Acute Assessment and Plan: The patient is on 2 antibiotics that he receives during dialysis. Cultures are pending. -tailor antibiotics to culture sensitivities. (3) CHF (congestive heart failure): Qualifiers: Heart failure chronicity: unspecified Heart failure type: unspecified Qualified Code(s): I50.9 - Heart failure, unspecified Code(s): I50.9 - Heart failure, unspecified Status: Acute Assessment and Plan: Diastolic grade 1 according to echo from 2020. -continue with current management. (4) Decubitus ulcers: Code(s): L89.90 - Pressure ulcer of unspecified site, unspecified stage Status: Chronic Assessment and Plan: -wound care consult but greatly be appreciated. -wound cultures have been ordered. -antibiotics will be continued with dialysis. (5) Depression with anxiety: Code(s): F41.8 - Other specified anxiety disorders Status: Acute Assessment and Plan: Continue sertraline (6) Diabetes: Qualifiers: Diabetes mellitus complication detail: with other circulatory complications Diabetes mellitus complication status: with circulatory complication Diabetes mellitus type: type 1 Qualified Code(s): E10.59 - Type 1 diabetes mellitus with other circulatory complications Code(s): E11.9 - Type 2 diabetes mellitus without complications Status: Chronic Assessment and Plan: Accu-Cheks AC and HS with sliding scale insulin and hypoglycemic protocol. Last A1c August of last year was 9.8. 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 Dr. Martino has been consulted. Continue with [facility] (8) HLD (hyperlipidemia): Qualifiers: Hyperlipidemia type: unspecified Qualified Code(s): E78.5 - Hyperlipidemia, unspecified Code(s): E78.5 - Hyperlipidemia, unspecified Status: Chronic Assessment and Plan: Continue with atorvastatin (9) Elevated troponin: Code(s): R77.8 - Other specified abnormalities of plasma proteins Status: Acute Assessment and Plan: He has no complaints of chest pain and his troponins are level. Plan Patient has a history of coronary artery disease and is on Brilinta. DS: Summary Hospital Course Hospital Course: Patient was admitted for altered mental status. His home medications were continued his IV antibiotics were also continued. Dialysis was also performed. Patient returned to baseline no additional infections were noted. Patient is otherwise stable and can be discharged home he will need follow-up with Nephrology for his hemodialysis. Time Spent with Patient Time attestation: Total time spent providing and/or coordinating discharge services: Exam Narrative: The patient appears to be a sallow color Const: General: cooperative, no acute distress, awake, ill appearing, average body habitus, well nourished and thin Nutritional Appearance: average body habitus, well nourished and thin Orientation/consciousness: oriented to person, oriented to place, oriented to time and patient oriented x3 Limitations: no limitations HENMT: Head: normal to inspection, No palpable skull fracture present, normocephalic and atraumatic Ears: hearing grossly normal bilaterally and external ears normal Face/Nose/Sinus: Normal external nose present and Normal randy
[2022-11-27] MEDS: SOD HYPOCHLORITE 1/4 STRENGTH 473 ML 1 APPLIC TOPICAL (16:50)
== END 2022-11-27 16:40 | disposition home or self-care (01) ==
LOC: ANHED 06:57 → ANH3MEDSUR 14:13
PROVIDERS: General Practice; Nurse Practitioner; Admitting Provider Chiropractor; Emergency Provider Emergency Medicine; PCP Emergency Medicine; Visit Provider Chiropractor
DX: R41.82 Altered mental status, unspecified (principal); L03.90 Cellulitis, unspecified; I13.2 Hypertensive heart and chronic kidney disease with heart failure and with stage 5 chronic kidney disease, or end stage renal disease; E10.22 Type 1 diabetes mellitus with diabetic chronic kidney disease; I50.30 Unspecified diastolic (congestive) heart failure; N18.6 End stage renal disease; D63.1 Anemia in chronic kidney disease; N39.0 Urinary tract infection, site not specified; R94.31 Abnormal electrocardiogram [ECG] [EKG]; L89.159 Pressure ulcer of sacral region, unspecified stage; E10.59 Type 1 diabetes mellitus with other circulatory complications; J81.1 Chronic pulmonary edema; Z20.822 Contact with and (suspected) exposure to COVID-19; J96.01 Acute respiratory failure with hypoxia; Z89.612 Acquired absence of left leg above knee; G93.89 Other specified disorders of brain; Z89.611 Acquired absence of right leg above knee; R90.82 White matter disease, unspecified; I46.2 Cardiac arrest due to underlying cardiac condition; I25.10 Atherosclerotic heart disease of native coronary artery without angina pectoris; Z95.5 Presence of coronary angioplasty implant and graft; R77.8 Other specified abnormalities of plasma proteins; K21.9 Gastro-esophageal reflux disease without esophagitis; N40.0 Benign prostatic hyperplasia without lower urinary tract symptoms; F41.8 Other specified anxiety disorders; E55.9 Vitamin D deficiency, unspecified; Z93.3 Colostomy status; F17.210 Nicotine dependence, cigarettes, uncomplicated; F12.11 Cannabis abuse, in remission; F14.21 Cocaine dependence, in remission; Z86.74 Personal history of sudden cardiac arrest; Z86.73 Personal history of transient ischemic attack (TIA), and cerebral infarction without residual deficits; Z79.51 Long term (current) use of inhaled steroids; Z79.82 Long term (current) use of aspirin; Z79.4 Long term (current) use of insulin; Z79.899 Other long term (current) drug therapy; Z82.49 Family history of ischemic heart disease and other diseases of the circulatory system
CPT/HCPCS: 36415; 36600; 51702; 70450; 71045; 80053; 81001; 82375; 82805; 82948; 83050; 83605; 83735; 84443; 84484; 85025; 85610; 85730; 86140; 87040; 87086; 87636; 93005; 96372; 96374; 96375; 99285; A9270; G0257; G0378; J0743; J0878; J1644; J1815; J2310; J7030

== ENCOUNTER 2022-12-12 10:14 | Inpatient (IN) | payer OTHER, SELFPAY ==
[2022-12-12] VITALS (37 sets, daily range): BP systolic 85–165; BP diastolic 27–84; PULSE 64–124; RESP 20–24; TEMP 36–36.7; O2SAT 84–100
--- NOTE | ~2022-12-12 | XR_ITS ---
EXAMINATION: XR chest 1V portable DATE: 12/12/2022 10:38 INDICATION: Shortness of breath. TECHNIQUE: A single frontal view of the chest was obtained on 2 radiographs. COMPARISON: Chest single view 11/25/2022, chest CT 10/24/2022 FINDINGS: There are airspace opacities in all lung zones bilaterally with a perihilar predominance. T here is a diffuse interstitial pattern in the lungs. There are small pleural effusions. No pneumothor ax. Cardiomegaly is noted. A right internal jugular central venous catheter is seen with tip in the r ight atrium. IMPRESSION: 1. Diffuse lung disease, likely moderate pulmonary edema. 2. Small pleural effusions. 3. Cardiomegaly. Reviewed, dictated and finalized at location A. R COACH CHAUFFEUR
--- NOTE | ~2022-12-12 | XR_ITS ---
EXAMINATION: XR abdomen obstructive series DATE: 12/15/2022 18:43 INDICATION: Nausea. TECHNIQUE: Upright and supine views of the abdomen on 3 radiographs were obtained. COMPARISON: CT abdomen and pelvis 10/24/2022 FINDINGS: There are no dilated loops of bowel. There is a small volume of stool in the colon. No free intraperitoneal gas. There are airspace opacities at left lung base. There is a central venous deion ter tip in right atrium. There is instrumentation of the lumbar spine with bone stimulator. There are surgical clips overlying left inguinal region. Soft tissue gas overlies the inferior pelvis. IMPRESSION: 1. Normal bowel gas pattern. 2. Airspace opacities at left lung base, consistent with atelectasis versus pneumonia. 3. Soft tissue gas overlying the inferior pelvis. These findings correlated with decubitus ulcers on the prior CT. Reviewed, dictated and finalized at location A. FITTER AMMONIA IMPRESSION: 1. Normal bowel gas pattern. 2. Airspace opacities at left lung base, consistent with atelectasis versus pne umonia. 3. Soft tissue gas overlying the inferior pelvis. These findings correlated wit h decubitus ulcers on the prior CT.
--- NOTE | 2022-12-12 10:21 | ECG_ITS ---
Measurements Intervals [place] Rate: 106 P: 42 WV: 169 QRS: 51 QRSD: 96 T: 87 QT: 334 QTc: 444 Interpretive Statements SINUS TACHYCARDIA VOLTAGE CRIERIA FOR LVH BORDERLINE R WAVE PROGRESSION, ANTERIOR LEADS NONSPECIFIC ST & T-WAVE ABNORMALITY- INF/LAT LEADS ABNORMAL ECG COMPARED TO ECG 11/25/2022 08:46:45 SINUS TACHYCARDIA NOW PRESENT Electronically Signed On 12-12-2022 12:06:30 [employer] by Edmond Elias D.O.
[2022-12-12] MEDS: ALBUTEROL SULFATE NEB 2.5 MG/3 ML INH 15 MG INHALATION (10:43)
[2022-12-12 11:06] LABS: Basophils Absolute Auto 0.1 K/mm3 (0.0-0.1); Basophils Percent Auto 0.6 % (0.2-1.2); Eosinophils Absolute Auto 0.2 K/mm3 (0-0.3); Eosinophils Percent Auto 1.2 % (0-4.4); Hematocrit 30.3 % (42.0-52.0); Hemoglobin 9.6 g/dL (14.0-18.0); Immature Granulocyte Absolute 0.13 K/mm3 (0.00-0.031); Immature Granulocyte Percent A 0.7 % (0-0.5); Lymphocytes Absolute Auto 1.32 K/mm3 (0.9-3.2); Lymphocytes Percent Auto 7.3 % (18.3-44.2); Mean Corpuscular HGB Conc 31.7 g/dl (32-36); Mean Corpuscular Hemoglobin 30.8 pg (26-34); Mean Corpuscular Volume 97.1 fl (80-100); Mean Platelet Volume 9.1 fl (7.4-10.4); Monocytes Absolute Auto 0.8 K/mm3 (0.1-0.6); Monocytes Percent Auto 4.1 % (2.6-8.5); Neutrophils Absolute Auto 15.7 K/mm3 (1.3-6.7); Neutrophils Percent Auto 86.1 % (45.5-73.1); Platelet Count Result 613 k/mm3 (150-375); Red Blood Count 3.12 M/mm3 (4.6-6.20); Red Cell Distribution Width 18.1 % (11.5-14.5); White Blood Count 18.2 K/mm3 (4.5-10.0)
[2022-12-12 11:15] LABS: Lactic Acid Reflex 0.8 mmol/L (0.7-2.0)
[2022-12-12 11:18] LABS: INR 1.2; Prothrombin Time 14.4 Seconds (11.1-14.7)
[2022-12-12 11:19] LABS: Partial Thromboplastin Time 25.5 SECONDS (22.3-36.8)
[2022-12-12 11:22] LABS: Alanine Aminotransferase 11 U/L (6-50); Albumin Level 2.7 g/dL (3.5-5.1); Alkaline Phosphatase 120 U/L (38-126); Anion Gap 7 mmol/L (8-16); Aspartate Amino Transferase 28 U/L (17-59); Bilirubin,Total 0.5 mg/dL (0.2-1.3); Blood Urea Nitrogen 75 mg/dL (9-20); CRP 7.7 mg/dL (<1.0); Calcium 8.6 mg/dL (8.4-10.2); Carbon Dioxide 18 mmol/L (22-30); Chloride 98 mmol/L (98-107); Estimated Glomerular Filt Rate 13; Glucose 296 mg/dL (65-110); Sodium 123 mmol/L (137-145)
[2022-12-12 11:23] LABS: Influenza A QL RT-PCR Negative (Negative); Influenza B QL RT-PCR Negative (Negative); SARS-CoV-2 RNA PCR Negative
[2022-12-12 11:25] LABS: NT Pro B Type Natriuretic Pept > 30000 pg/mL (19.9-100)
[2022-12-12] MEDS: INSULIN HUMAN REGULAR (*BKC) 100 UNITS/ML IV PUSH (11:47)
[2022-12-12 12:08] LABS: Alveolar/Arterial O2 Gradient 138.6 mmHg; Base Excess ABG -9.1 mEq/l (+/-2.0); Carboxyhemoglobin 0.4 % THb (0-2.0); Fractional Inspired Oxygen 40 %; HCO3 ABG 16.5 mEq/l (22.0-26.0); Methemoglobin ABG 0.4 %THb (0-1.5); Oxygen Saturation ABG 97.4 % (95.0-100.0); Oxyhemoglobin 96.1 % THb (90.0-100.0); PCO2 ABG 34.6 mmHg (35.0-45.0); PO2 ABG 106.8 mmHg (80.0-100.0); PO2 FiO2 Ratio Arterial Blood 2.67 %; Reduced Hemoglobin 3.1 %THb (0-5.0); Total Hemoglobin 10.2 g/dL (12.0-18.0)
[2022-12-12 12:09] LABS: Device NON-INVASIVE VENT; Modified Allen's Test Pass; Non-Invasive Expiratory Pressure 10 CMH2O; Non-Invasive Inspiratory Pressure 16 CMH2O; Non-Invasive Vent Rate 20 /MIN; Site Drawn LEFT RADIAL; pH ABG 7.296 (7.350-7.450)
--- NOTE | 2022-12-12 12:43 | ED.SOB ---
HPI - SOB/Dyspnea General Chief Complaint: Shortness of Breath/Dyspnea Stated Complaint: Weakness, SOB Time Seen by Provider: 12/12/22 10:14 History of Present Illness HPI Narrative: Patient is a 57-year-old male who presents ER with respiratory distress. Patient has history of end-stage renal disease and volume overload. Patient hypoxic on room air at 84%. Placed on nasal cannula O2 with subsequent improvement. Patient has coarse rales. Patient is alert to voice and answers questions but can only tell us his name. It is reported his last dialysis was Monday by EMS. Related Data Home Medications Medication Instructions Recorded Confirmed vitamin B complex-vitamin C-folic 1 tablet PO DAILY 07/23/20 11/25/22 acid 0.8 mg tablet (Dang-Nilsa) ticagrelor 60 mg tablet (Brilinta) 60 mg PO DAILY 06/23/22 11/25/22 albuterol sulfate 90 mcg/actuation 1 puff inhalation Q6H PRN 07/09/22 11/25/22 aerosol inhaler Shortness Of Breath aspirin 81 mg tablet 81 mg PO DAILY 07/09/22 11/25/22 cholecalciferol (vitamin D3) 25 25 mcg PO DAILY 07/09/22 11/25/22 mcg (1,000 unit) tablet (Vitamin D3) magnesium hydroxide 400 mg/5 mL 30 ml PO HS PRN Constipation 07/28/22 11/25/22 oral suspension (Milk of Magnesia) cyanocobalamin (vitamin B-12) 1,000 mcg PO DAILY 08/25/22 11/25/22 1,000 mcg capsule vitamin B complex 1 cap PO DAILY 08/25/22 11/25/22 Adults Multivitamin 1 tab-cap PO DAILY 09/28/22 11/25/22 ascorbic acid (vitamin C) 500 mg 500 mg PO DAILY 09/28/22 11/25/22 chewable tablet calcitriol 0.25 mcg capsule 1.25 mcg PO QMWF 11/25/22 11/25/22 cinacalcet 90 mg tablet 90 mg PO QMWF 11/25/22 11/25/22 daptomycin 500 mg intravenous 600 mg IV QMWF 11/25/22 11/25/22 solution ertapenem 1 gram solution for 1 g IV QMWF 11/25/22 11/25/22 injection insulin glargine 100 unit/mL 10 unit subcut Q12H 11/25/22 11/25/22 subcutaneous solution (Lantus U-100 Insulin) lisinopril 10 mg tablet 10 mg PO DAILY 11/25/22 11/25/22 Allergies Allergy/AdvReac Type Severity Reaction Status Date / Time scopolamine Allergy Severe Unresponsiv Verified 12/12/22 11:13 e Review of Systems Review of Systems: ROS unobtainable: Yes unobtainable due to medical condition PMFSH Past Medical History Medical History (Updated 12/12/22 @ 12:52 by Vivek Sears MD) Acute respiratory failure with hypoxia Amputation above knee Anemia Anemia Anxiety Benign prostatic hyperplasia Bradycardic cardiac arrest (~07/23/20) In the setting of severe hyperkalemia, acute pulmonary edema, and respiratory failure CHF (congestive heart failure) Chronic anemia Chronic kidney failure Colostomy in place Congestive heart failure Echo 03/06/2021 1. Complete two-dimensional, color flow and Doppler transthoracic echocardiogram is performed. 2. Left ventricular chamber dimension is mildly enlarged. 3. Left ventricular systolic function is mildly reduced, estimated at 55-60%. 4. There is severely increased left ventricular wall thickness. Speckled appearance of the myocardium. 5. The left ventricular diastolic function is grade I diastolic dysfunction. 6. Left atrial chamber dimension is mildly enlarged. 7. There is moderate aortic valve sclerosis. 8. The mitral valve annulus is severely calcified. 9. There is mild mitral valve regurgitation. 10. The mitral valve has thickened leaflets. 11. There is mild tricuspid valve regurgitation. 12. There is mild pulmonic regurgitation. Coronary artery disease With non STEMI in December 2019, with stent placed to the LAD. Depression with anxiety Diabetic ketoacidosis DVT prophylaxis Elevated lipase Elevated troponin Employs prosthetic leg End-stage renal disease on hemodialysis Erythropoietin deficiency anemia Gastric ulcer On endoscopy per Dr. Pacheco in June 2020. Gastroesophageal reflux disease Guillain-Buskirk Hyperkalemia Hypertension Hypertensive urgency Leukocytosis Nausea & vomiting Noncompli
--- NOTE | 2022-12-12 14:00 | PM.IMHP ---
H&P: HPI History of Present Illness Date/Time: 12/12/22 14:00 Chief Complaint: Weakness and shortness of breath. Narrative: This is a chronically ill 57-year-old male with multiple medical problems including end-stage renal disease on hemodialysis, insulin-dependent diabetes, congestive heart failure, coronary artery disease, peripheral vascular disease, hypertension, Guillain-Seibert, and other comorbidities who presented to the emergency department via EMS from [facility] for evaluation of weakness and shortness of breath. He is currently on BiPAP and seems a bit confused and is not able to provide an accurate history and thus some of the following is supplemented via a review of his electronic medical records. He is well known to myself and the hospitalist service from multiple admissions over the year. Today he was reportedly found to be in respiratory distress by staff at the longterm and he was sent in for evaluation. On arrival to the ED he was in mild distress and hypoxic on room air. Initially he was started on nasal cannula without significant improvement in he was then placed on BiPAP. Pertinent labs include chronically elevated BUN and creatinine given his end-stage renal disease complicated by hyperkalemia, hyponatremia, and metabolic acidosis. CBC showed a stable anemia and leukocytosis which is not necessarily unusual for him. Chest x-ray showed moderate pulmonary edema and it is noted that he missed his dialysis treatment on Monday. In the ED he received medical treatment for hyperkalemia and he is being sent for urgent dialysis per Dr. Martino. He does not indicate that he is having any pain at this time. He does not appear to be in any acute respiratory distress and is resting comfortably. Review of Systems Review of Systems: Twelve systems were reviewed but are limited as he is currently on BiPAP and a bit confused. He denies pain, fever, chills, chest pain, nausea, and vomiting. [facility] Past Medical History Medical History (Updated 12/12/22 @ 23:33 by Anai Balderas PA-C) Anemia Anxiety Benign prostatic hyperplasia Bradycardic cardiac arrest (07/23/20) In the setting of severe hyperkalemia, acute pulmonary edema, and respiratory failure Chronic anemia Chronic kidney failure Congestive heart failure Echo 03/06/2021 1. Complete two-dimensional, color flow and Doppler transthoracic echocardiogram is performed. 2. Left ventricular chamber dimension is mildly enlarged. 3. Left ventricular systolic function is mildly reduced, estimated at 55-60%. 4. There is severely increased left ventricular wall thickness. Speckled appearance of the myocardium. 5. The left ventricular diastolic function is grade I diastolic dysfunction. 6. Left atrial chamber dimension is mildly enlarged. 7. There is moderate aortic valve sclerosis. 8. The mitral valve annulus is severely calcified. 9. There is mild mitral valve regurgitation. 10. The mitral valve has thickened leaflets. 11. There is mild tricuspid valve regurgitation. 12. There is mild pulmonic regurgitation. Coronary artery disease With non STEMI in December 2019, with stent placed to the LAD. 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 Pacheco in June 2020. Gastroesophageal reflux disease Guillain-Seibert Hypertension Noncompliance Pneumonia Pulmonary edema Renal osteodystrophy Seizure Secondary to hypoglycemia. ST elevation myocardial infarction (STEMI) (06/26/20) Secondary to abrupt stent thrombosis of the LAD. Tobacco dependence Type 1 diabetes mellitus Diagnosed at the age of 10. Complicated by retinopathy, nephropathy, and neuropathy. Hemoglobin A1c was 7.6% in July 2020. Upper GI bleed Vitamin D deficiency disease Surgical History Surgical History (Updated
--- NOTE | 2022-12-12 14:01 | ADMGEN ---
This patient, Ish Corley, was admitted to IMU Room 212-01. Patient/family oriented to hospital policies and general routines including ID bracelet, bed and alarms, visiting hours, pain management, procedures, bathroom and other care routines, personal items, smoking policy, room service/diet, and visiting hours. Information on how to activate the Rapid Response Team has been discussed. Patient/Family are encouraged to report perceived risks to care and to ask questions if they do not understand what they are told or what they should do.
[2022-12-12 14:44] LABS: Glucose Point of Care 280 mg/dl (65-105)
[2022-12-12 15:45] LABS: Hepatitis B Surface Antigen Negative (Negative)
[2022-12-12] MEDS: ALBUMIN HUMAN 25% 12.5 GM/50ML 50 ML IVPB (16:00)
[2022-12-12 16:11] LABS: Hepatitis B Surface Anti Res Positive
--- NOTE | 2022-12-12 16:21 | PM.CNNEP ---
Assessment and Plan Assessment and plan (1) End stage renal disease: Code(s): N18.6 - End stage renal disease Status: Chronic Assessment and Plan: HD today and continue M/W/F dialysis schedule follow electrolytes, volume status, and clearance (2) Volume overload: Code(s): E87.70 - Fluid overload, unspecified Status: Acute Assessment and Plan: likely etiology of respiratory distress and hypoxia on BiPAP therapy fluid removal with HD as tolerated by hemodynamics follow respiratory status (3) Altered mental status: Code(s): R41.82 - Altered mental status, unspecified Status: Acute Assessment and Plan: due to hypoxia versus something else? r/o possible infection (given elevated WBC) I suppose uremia is possible but only missed 1 treatment follow mentation (4) Hyponatremia: Code(s): E87.1 - Hypo-osmolality and hyponatremia Status: Acute Assessment and Plan: due to ESRD and likely excess fluid intake should correct to some degree with dialysis follow trend (5) Anemia: Code(s): D64.9 - Anemia, unspecified Status: Chronic Assessment and Plan: due to ESRD and possible acute illness Epogen with HD follow trend of H/H (6) Decubitus ulcers: Code(s): L89.90 - Pressure ulcer of unspecified site, unspecified stage Status: Chronic Assessment and Plan: wound care following local wound care (7) Diabetes: Qualifiers: Diabetes mellitus complication detail: with other circulatory complications Diabetes mellitus complication status: with circulatory complication Diabetes mellitus type: type 1 Qualified Code(s): E10.59 - Type 1 diabetes mellitus with other circulatory complications Code(s): E11.9 - Type 2 diabetes mellitus without complications Status: Chronic Assessment and Plan: follow accuchecks glycemic control Will continue to follow. History of Present Illness Reason for Consult Consult date: 12/12/22 Reason for consult: end stage renal disease Chief Complaint Chief complaint: acute respiratory failure,pulmonary edema,hyperkal History of Present Illness Narrative: The patient is a 56-year-old male with extensive past medical history as outlined below who presented to [facility] Emergency room from his nursing facility for further evaluation of weakness and shortness of breath. Unfortunately, due the patient's current medical status, he is unable to give me any information regarding the events that led to his presentation to the ER. From what I can tell in reviewing the electronic medical record as well as discussion with ER physician, the patient apparently was found in respiratory distress earlier this morning. He was subsequently transferred from his nursing facility to the ER for further assessment of this issue. Workup and evaluation in emergency room did demonstrate the patient to be in mild distress and hypoxic on room air. His oxygen saturations improved with application of supplemental oxygen but his respiratory status was still somewhat fluctuating. BiPAP was then applied which seemed to improve his respiratory status for the time being. Routine blood test demonstrated labs consistent with his known history of end-stage renal disease complicated by hyperkalemia, hyponatremia, and metabolic acidosis. His CBC demonstrated his chronic anemia but also an elevated white blood cell count concerning for a possible infection. His chest x-ray demonstrated moderate pulmonary edema and on further questioning to his outpatient dialysis center, he missed his outpatient dialysis treatment on Monday and hence his last dialysis treatment was on Monday () He received medical management for his hyperkalemia and he was subsequent admitted to the hospital for further evaluation and therapy as well as urgent hemodialysis in effort to optimi
[2022-12-12] MEDS: EPOETIN ALFA-EPBX 10,000 UNITS/ML VIAL 10000 UNITS IV PUSH (18:46)
--- NOTE | 2022-12-12 18:57 | PC.NURSE ---
Per Jagjit in pharmacy - when patient returns to floor from dialysis administer one time dose of azithromycin and ceftriaxone. Pharmacy will retime additional antibiotic orders once medications are administered.
--- NOTE | 2022-12-12 19:26 | PC.NURSE ---
Received report from José in dialysis at 1907. 2.7L removed during dialysis.
[2022-12-12 20:43] LABS: Glucose Point of Care 180 mg/dl (65-105)
[2022-12-12 21:49] LABS: Anion Gap 9 mmol/L (8-16); Blood Urea Nitrogen 34 mg/dL (9-20); Calcium 7.9 mg/dL (8.4-10.2); Carbon Dioxide 24 mmol/L (22-30); Chloride 98 mmol/L (98-107); Estimated Glomerular Filt Rate 31; Glucose 316 mg/dL (65-110); Potassium 5.1 mmol/L (3.4-5.0); Sodium 131 mmol/L (137-145)
[2022-12-12] MEDS: MORPHINE SULFATE (*CRX) 4 MG/ML INJ IV PUSH (22:05)
[2022-12-13] VITALS (18 sets, daily range): BP systolic 123–160; BP diastolic 57–77; PULSE 68–113; RESP 16–21; TEMP 36.1–36.9; O2SAT 94–100; BMI 37.0
[2022-12-13 05:06] LABS: Basophils Absolute Auto 0.1 K/mm3 (0.0-0.1); Basophils Percent Auto 0.4 % (0.2-1.2); Eosinophils Absolute Auto 0.1 K/mm3 (0-0.3); Eosinophils Percent Auto 0.6 % (0-4.4); Hematocrit 24.7 % (42.0-52.0); Hemoglobin 7.7 g/dL (14.0-18.0); Immature Granulocyte Absolute 0.07 K/mm3 (0.00-0.031); Immature Granulocyte Percent A 0.6 % (0-0.5); Lymphocytes Absolute Auto 1.46 K/mm3 (0.9-3.2); Lymphocytes Percent Auto 12.9 % (18.3-44.2); Mean Corpuscular HGB Conc 31.2 g/dl (32-36); Mean Corpuscular Hemoglobin 30.9 pg (26-34); Mean Corpuscular Volume 99.2 fl (80-100); Mean Platelet Volume 9.4 fl (7.4-10.4); Monocytes Absolute Auto 0.6 K/mm3 (0.1-0.6); Monocytes Percent Auto 5.3 % (2.6-8.5); Neutrophils Percent Auto 80.2 % (45.5-73.1); Platelet Count Result 515 k/mm3 (150-375); Red Blood Count 2.49 M/mm3 (4.6-6.20); Red Cell Distribution Width 18.3 % (11.5-14.5); White Blood Count 11.3 K/mm3 (4.5-10.0)
[2022-12-13 05:15] LABS: Fractional Inspired Oxygen 28 %; HCO3 VBG 24.4 mEq/l (24.0-30.0); PCO2 VBG 36.9 mmHg (42.0-48.0); PO2 VBG 43.3 mmHg (35.0-45.0)
[2022-12-13 05:17] LABS: Device NASAL CANNULA; pH VBG 7.439 (7.300-7.400)
[2022-12-13 05:29] LABS: Anion Gap 9 mmol/L (8-16); Blood Urea Nitrogen 37 mg/dL (9-20); Calcium 7.8 mg/dL (8.4-10.2); Carbon Dioxide 25 mmol/L (22-30); Chloride 95 mmol/L (98-107); Estimated Glomerular Filt Rate 24; Phosphorus 4.7 mg/dL (2.5-4.5); Potassium 4.4 mmol/L (3.4-5.0); Sodium 129 mmol/L (137-145)
[2022-12-13 05:37] LABS: Glucose 618 mg/dL (65-110)
[2022-12-13] MEDS: INSULIN GLARGINE (*BKC) 100 UNITS/ML 10 UNITS SUB-Q ×2 (06:25→22:40)
[2022-12-13] MEDS: INSULIN HUMAN REGULAR (*BKC) 100 UNITS/ML 18 UNITS SUB-Q (06:25)
[2022-12-13 08:02] LABS: Glucose Point of Care > 500 mg/dl (65-105)
[2022-12-13] MEDS: INSULIN ASPART (*BKC) 100 UNITS/ML SUB-Q ×2 (08:46→12:17)
[2022-12-13] MEDS: NICOTINE (*PBKC) 21 MG PATCH 1 PATCH TRANSDERM (08:55)
[2022-12-13] MEDS: CYANOCOBALAMIN 1,000 MCG TABLET 1000 MCG PO (08:56)
[2022-12-13] MEDS: MULTIVITAMINS THERAPEUTIC TAB (*BKC) 1 TABLET PO (08:56)
[2022-12-13] MEDS: PANTOPRAZOLE 40 MG TABLET PO ×2 (08:56→20:59)
[2022-12-13] MEDS: SERTRALINE HCL 50 MG TABLET 100 MG PO (08:56)
[2022-12-13] MEDS: TICAGRELOR 60 MG TABLET PO (08:56)
[2022-12-13] MEDS: CHOLECALCIFEROL 1,000 UNITS TABLET 1000 UNITS PO (08:57)
[2022-12-13] MEDS: ATORVASTATIN 40 MG TABLET 80 MG PO (08:57)
[2022-12-13] MEDS: GABAPENTIN 300 MG CAPSULE PO (08:57)
[2022-12-13] MEDS: lisinopriL 10 MG TABLET PO (08:57)
[2022-12-13] MEDS: VITAMIN B CMPLX/VIT C/FOLIC AC 1 CAPSULE 1 CAP PO (08:57)
[2022-12-13] MEDS: ASPIRIN 81 MG ENTERIC TABLET PO (08:57)
[2022-12-13] MEDS: ASCORBIC ACID 500 MG TABLET PO (08:57)
[2022-12-13] MEDS: VITAMIN B COMPLEX CAPSULE 1 CAP PO (08:57)
--- NOTE | 2022-12-13 09:00 | PM.PNNEP ---
Progress Note: A&P Assessment and Plan (1) End stage renal disease: Code(s): N18.6 - End stage renal disease Status: Chronic Assessment and Plan: HD tomorrow and continue M/W/F dialysis schedule follow electrolytes, volume status, and clearance (2) Volume overload: Code(s): E87.70 - Fluid overload, unspecified Status: Acute Assessment and Plan: likely etiology of respiratory distress and hypoxia was on BiPAP therapy; now on supplemental oxygen fluid removal with HD as tolerated by hemodynamics follow respiratory status (3) Altered mental status: Code(s): R41.82 - Altered mental status, unspecified Status: Acute Assessment and Plan: appears resolved due to hypoxia versus something else? r/o possible infection (given elevated WBC) I suppose uremia is possible but only missed 1 treatment follow mentation (4) Hyponatremia: Code(s): E87.1 - Hypo-osmolality and hyponatremia Status: Acute Assessment and Plan: due to ESRD, likely excess fluid intake, and hyperglycemia should correct to some degree with dialysis follow trend (5) Anemia: Code(s): D64.9 - Anemia, unspecified Status: Chronic Assessment and Plan: due to ESRD and possible acute illness Epogen with HD PRBC transfusion per protocol follow trend of H/H (6) Decubitus ulcers: Code(s): L89.90 - Pressure ulcer of unspecified site, unspecified stage Status: Chronic Assessment and Plan: wound care following local wound care (7) Diabetes: Qualifiers: Diabetes mellitus complication detail: with other circulatory complications Diabetes mellitus complication status: with circulatory complication Diabetes mellitus type: type 1 Qualified Code(s): E10.59 - Type 1 diabetes mellitus with other circulatory complications Code(s): E11.9 - Type 2 diabetes mellitus without complications Status: Chronic Assessment and Plan: follow accuchecks glycemic control as per hospitalists Will continue to follow. Subjective Date/time seen: 12/13/22 09:00 Tolerated dialysis treatment yesterday with 2.8L fluid removal; weaned off BiPAP to oxygen by nasal cannula; much more awake and alert at the time of my visit; no apparent distress voiced; no issues overnight or earlier this AM. Exam Narrative: General: WD/WN male in NAD Heart: normal S1 and S2; no rub Lungs: coarse breath sounds Abdomen: soft, nontender, nondistended, positive bowel sounds Extremities: no cyanosis or clubbing; left AKA and right BKA Skin: wound dressings in place Objective Data Vital Signs Vital Signs: Vital Signs Temp Pulse Resp BP Pulse Ox O2 Del Method O2 Flow Rate 12/13/22 08:29 97.6 F 72 18 129/72 98 12/13/22 08:20 95 Nasal Cannula 2 12/13/22 08:20 95 Nasal Cannula 12/13/22 05:09 110 H 12/13/22 04:00 113 H 18 100 Nasal Cannula 2 12/13/22 04:00 113 H 12/13/22 04:00 97 F L 68 18 129/69 100 12/13/22 01:26 111 H 12/13/22 00:00 113 H 20 100 Nasal Cannula 2 12/13/22 00:00 113 H 12/12/22 23:26 98.1 F 113 H 20 105/71 100 12/12/22 22:00 117 H 12/12/22 20:00 100 20 100 Nasal Cannula 2 12/12/22 20:00 108 H 12/12/22 20:00 97.4 F L 100 20 102/64 100 12/12/22 20:34 100 Nasal Cannula 3 12/12/22 19:00 97.6 F 99 20 106/34 L 12/12/22 18:57 100 100/42 L 12/12/22 18:40 90 103/36 L 12/12/22 18:20 98 102/46 L 12/12/22 18:00 90 87/41 L 12/12/22 17:40 100 94/49 L 12/12/22 17:20 102 H 107/27 L 12/12/22 17:00 20 99 BiPAP 12/12/22 18:00 101 H 12/12/22 16:00 104 H 12/12/22 16:00 101 H 12/12/22 14:00 BiPAP 12/12/22 17:00 94 97/52 L 12/12/22 16:40 100 103/54 L 12/12/22 16:20 96 114/38 L
--- NOTE | 2022-12-13 09:00 | P.PNNP_ITS ---
Progress Note: A&P Assessment and Plan (1) End stage renal disease: Code(s): N18.6 - End stage renal disease Status: Chronic Assessment and Plan: * HD tomorrow and continue M/W/F dialysis schedule * follow electrolytes, volume status, and clearance (2) Volume overload: Code(s): E87.70 - Fluid overload, unspecified Status: Acute Assessment and Plan: * likely etiology of respiratory distress and hypoxia * was on BiPAP therapy; now on supplemental oxygen * fluid removal with HD as tolerated by hemodynamics * follow respiratory status (3) Altered mental status: Code(s): R41.82 - Altered mental status, unspecified Status: Acute Assessment and Plan: * appears resolved * due to hypoxia versus something else? * r/o possible infection (given elevated WBC) * I suppose uremia is possible but only missed 1 treatment * follow mentation (4) Hyponatremia: Code(s): E87.1 - Hypo-osmolality and hyponatremia Status: Acute Assessment and Plan: * due to ESRD, likely excess fluid intake, and hyperglycemia * should correct to some degree with dialysis * follow trend (5) Anemia: Code(s): D64.9 - Anemia, unspecified Status: Chronic Assessment and Plan: * due to ESRD and possible acute illness * Epogen with HD * PRBC transfusion per protocol * follow trend of H/H (6) Decubitus ulcers: Code(s): L89.90 - Pressure ulcer of unspecified site, unspecified stage Status: Chronic Assessment and Plan: * wound care following * local wound care (7) Diabetes: Qualifiers: Diabetes mellitus complication detail: with other circulatory complications Diabetes mellitus complication status: with circulatory complication Diabetes mellitus type: type 1 Qualified Code(s): E10.59 - Type 1 diabetes mellitus with other circulatory complications Code(s): E11.9 - Type 2 diabetes mellitus without complications Status: Chronic Assessment and Plan: * follow accuchecks * glycemic control as per hospitalists Will continue to follow. Subjective Date/time seen: 12/13/22 09:00 Tolerated dialysis treatment yesterday with 2.8L fluid removal; weaned off BiPAP to oxygen by nasal cannula; much more awake and alert at the time of my visit; no apparent distress voiced; no issues overnight or earlier this AM. Exam Narrative: General: WD/WN male in NAD Heart: normal S1 and S2; no rub Lungs: coarse breath sounds Abdomen: soft, nontender, nondistended, positive bowel sounds Extremities: no cyanosis or clubbing; left AKA and right BKA Skin: wound dressings in place Objective Data Vital Signs Vital Signs: Vital Signs Temp Pulse Resp BP Pulse Ox O2 Del Method O2 Flow Rate 12/13/22 08:29 97.6 F 72 18 129/72 98 12/13/22 08:20 95 Nasal Cannula 2 12/13/22 08:20 95 Nasal Cannula 12/13/22 05:09 110 H 12/13/22 04:00 113 H 18 100 Nasal Cannula 2 12/13/22 04:00 113 H 12/13/22 04:00 97 F L 68 18 129/69 100 12/13/22 01:26 111 H 12/13/22 00:00 113 H 20 100 Nasal Cannula 2 12/13/22 00:00 113 H 12/12/22 23:26 98.1 F 113 H 20 105/71 100 12/12/22 22:00 117 H 12/12/22 20:00 100 20 100 Nasal Ca
[2022-12-13] MEDS: INSULIN ASPART (*BKC) 100 UNITS/ML 20 UNITS SUB-Q (09:20)
[2022-12-13 10:07] LABS: Creatine Kinase 21 U/L (55-170)
[2022-12-13] MEDS: HYDROcodone/acetaminophen (*CRX) 5-325 MG TABLET 1 TAB PO (11:26)
[2022-12-13 11:47] LABS: Glucose Point of Care 334 mg/dl (65-105)
[2022-12-13] MEDS: ERTAPENEM SODIUM 0.5 GM in SODIUM CHLORIDE 0.9% IV 50 ML IVPB (12:30)
--- NOTE | 2022-12-13 14:43 | PM.IMPN ---
Progress Note: A&P Assessment and Plan (1) Volume overload: Code(s): E87.70 - Fluid overload, unspecified Status: Acute Assessment and Plan: Resolved with dialysis, appreciate nephrology consultation (2) Hyperkalemia: Code(s): E87.5 - Hyperkalemia Status: Acute Assessment and Plan: Resolved with dialysis (3) Hyponatremia: Code(s): E87.1 - Hypo-osmolality and hyponatremia Status: Acute Assessment and Plan: worsened, defer to nephrology for further management (4) Metabolic acidosis: Code(s): E87.2 - Acidosis Status: Chronic Assessment and Plan: Resolved with dialysis (5) Leukocytosis: Qualifiers: Leukocytosis type: unspecified Qualified Code(s): D72.829 - Elevated white blood cell count, unspecified Code(s): D72.829 - Elevated white blood cell count, unspecified Status: Acute Assessment and Plan: Improving, continue antibiotic treatment with dialysis Records pending from [facility], d/c about 2-3 weeks ago on a long course of IV abx, patient being treated for possibly ?osteomyelitis per family with IV ertapenem as well as daptomycin with dialysis, he missed his doses yesterday, therefore, 500 mg of ertapenem was given x1 today, daptomycin will be resumed with the next dialysis treatment (6) Chronic anemia: Code(s): D64.9 - Anemia, unspecified Status: Chronic Assessment and Plan: Hemoglobin dropped to 7.7 today, asymptomatic, monitor, transfuse if necessary Check fecal occult (7) Hypertension: Code(s): I10 - Essential (primary) hypertension Status: Acute Assessment and Plan: Stable, continue home meds (8) Type 1 diabetes mellitus: Qualifiers: Diabetes mellitus complication status: with kidney complications Diabetes mellitus complication detail: with chronic kidney disease Chronic kidney disease stage: on chronic dialysis Qualified Code(s): E10.22 - Type 1 diabetes mellitus with diabetic chronic kidney disease; N18.6 - End stage renal disease; Z99.2 - Dependence on renal dialysis Code(s): E10.9 - Type 1 diabetes mellitus without complications Status: Chronic Assessment and Plan: Accu-Cheks, sliding scale insulin, continue home meds (9) Decubitus ulcer: Code(s): L89.90 - Pressure ulcer of unspecified site, unspecified stage Status: Acute Assessment and Plan: Severe, suspect osteomyelitis, records pending from [facility], appreciate Wound Care consult, offload as much as possible Plan DVT prophylaxis with heparin, on aspirin and brilinta GI prophylaxis not indicated Code status full code Anticipate d/c after dialysis tomorrow Subjective Date/time seen: 12/13/22 14:43 Interval history: No overnight events noted. No chest pain or shortness of breath. No nausea, vomiting or diarrhea. No fevers or chills. He states he feels much better than when he came in. Shortness of breath resolved after dialysis treatment. Review of Systems Review of Systems: 12 point review of systems was assessed and was negative except as noted in the HPI Exam Narrative: General: No acute distress, alert and oriented per baseline, appears cachectic HEENT: Atraumatic, normocephalic, mucous membranes moist CV: Regular rate and rhythm, S1, S2 Lungs: Clear to auscultation bilaterally, no rales or crackles noted, no wheezes, good air entry Abdomen: Soft, nontender, nondistended, colostomy in place with soft stool noted Extremities: Normal to inspection, bilateral [id number] amputations Skin: No rashes noted, no lesions or wounds seen Psych: Euthymic, normal affect Neuro: Cranial nerves 2-12 grossly intact, strength +4/5 upper and with limited movement in lower extremities bilaterally Objective Data Vital Signs Vital Signs: Vital Signs - 24 hr 11/15
[2022-12-13 16:08] LABS: Glucose Point of Care 100 mg/dl (65-105)
[2022-12-13 20:16] LABS: Glucose Point of Care 191 mg/dl (65-105)
[2022-12-13] MEDS: HEPARIN SODIUM 5,000 UNITS/ML VIAL 5000 UNITS SUB-Q (20:59)
[2022-12-13] MEDS: TOLNAFTATE 1% POWDER 45 GM BTL 1 APPLIC TOPICAL (21:04)
[2022-12-13] MEDS: MORPHINE SULFATE (*CRX) 2 MG/ML INJ IV PUSH (22:39)
[2022-12-13] MEDS: LORazepam (*CRX) 1 MG TABLET PO (22:54)
[2022-12-14] VITALS (25 sets, daily range): BP systolic 110–169; BP diastolic 58–86; PULSE 97–124; RESP 16–22; TEMP 36–37.3; O2SAT 94–98
[2022-12-14 04:42] LABS: Basophils Absolute Auto 0.1 K/mm3 (0.0-0.1); Basophils Percent Auto 0.9 % (0.2-1.2); Eosinophils Absolute Auto 0.4 K/mm3 (0-0.3); Eosinophils Percent Auto 4.7 % (0-4.4); Hematocrit 23.5 % (42.0-52.0); Hemoglobin 7.4 g/dL (14.0-18.0); Immature Granulocyte Absolute 0.07 K/mm3 (0.00-0.031); Immature Granulocyte Percent A 0.8 % (0-0.5); Lymphocytes Absolute Auto 1.73 K/mm3 (0.9-3.2); Lymphocytes Percent Auto 19.5 % (18.3-44.2); Mean Corpuscular HGB Conc 31.5 g/dl (32-36); Mean Corpuscular Hemoglobin 31.1 pg (26-34); Mean Corpuscular Volume 98.7 fl (80-100); Mean Platelet Volume 9.5 fl (7.4-10.4); Monocytes Absolute Auto 0.9 K/mm3 (0.1-0.6); Monocytes Percent Auto 9.7 % (2.6-8.5); Neutrophils Absolute Auto 5.7 K/mm3 (1.3-6.7); Neutrophils Percent Auto 64.4 % (45.5-73.1); Platelet Count Result 533 k/mm3 (150-375); Red Blood Count 2.38 M/mm3 (4.6-6.20); Red Cell Distribution Width 18.3 % (11.5-14.5); White Blood Count 8.9 K/mm3 (4.5-10.0)
[2022-12-14 04:58] LABS: Alanine Aminotransferase 12 U/L (6-50); Albumin Level 2.3 g/dL (3.5-5.1); Alkaline Phosphatase 105 U/L (38-126); Anion Gap 8 mmol/L (8-16); Aspartate Amino Transferase 27 U/L (17-59); Bilirubin,Total 0.3 mg/dL (0.2-1.3); Blood Urea Nitrogen 52 mg/dL (9-20); Calcium 8.2 mg/dL (8.4-10.2); Carbon Dioxide 27 mmol/L (22-30); Chloride 100 mmol/L (98-107); Estimated Glomerular Filt Rate 16; Glucose 177 mg/dL (65-110); Potassium 4.8 mmol/L (3.4-5.0); Sodium 135 mmol/L (137-145)
[2022-12-14] MEDS: HEPARIN SODIUM 5,000 UNITS/ML VIAL 5000 UNITS SUB-Q ×2 (05:48→21:32)
[2022-12-14 08:51] LABS: Glucose Point of Care 222 mg/dl (65-105)
--- NOTE | 2022-12-14 12:20 | P.PNNP_ITS ---
Progress Note: A&P Assessment and Plan (1) End stage renal disease: Code(s): N18.6 - End stage renal disease Status: Chronic Assessment and Plan: * HD today and continue M/W/ dialysis schedule * follow electrolytes, volume status, and clearance (2) Volume overload: Code(s): E87.70 - Fluid overload, unspecified Status: Acute Assessment and Plan: * likely etiology of respiratory distress and hypoxia * fluid removal with HD as tolerated by hemodynamics * follow respiratory status (3) Altered mental status: Code(s): R41.82 - Altered mental status, unspecified Status: Acute Assessment and Plan: * appears resolved * due to hypoxia versus something else? * r/o possible infection (given elevated WBC) * I suppose uremia is possible but only missed 1 treatment * follow mentation (4) Hyponatremia: Code(s): E87.1 - Hypo-osmolality and hyponatremia Status: Acute Assessment and Plan: * resolving * due to ESRD, likely excess fluid intake, and hyperglycemia * should correct to some degree with dialysis * follow trend (5) Anemia: Code(s): D64.9 - Anemia, unspecified Status: Chronic Assessment and Plan: * due to ESRD and possible acute illness * Epogen with HD * PRBC transfusion per protocol * follow trend of H/H (6) Decubitus ulcers: Code(s): L89.90 - Pressure ulcer of unspecified site, unspecified stage Status: Chronic Assessment and Plan: * wound care following * local wound care (7) Diabetes: Qualifiers: Diabetes mellitus complication detail: with other circulatory complications Diabetes mellitus complication status: with circulatory complication Diabetes mellitus type: type 1 Qualified Code(s): E10.59 - Type 1 diabetes mellitus with other circulatory complications Code(s): E11.9 - Type 2 diabetes mellitus without complications Status: Chronic Assessment and Plan: * follow accuchecks * glycemic control as per hospitalists Will continue to follow. Subjective Date/time seen: 12/14/22 12:20 Tolerating dialysis treatment at the time of my visit (seen on HD at ~ 12:00PM); breathing/respiratory status appears stable if not better; mentation seems back to baseline; no other acute issues/problems voiced currently. Exam Narrative: General: WD/WN male in NAD Heart: normal S1 and S2; no rub Lungs: decreased breath sounds at bases Abdomen: soft, nontender, nondistended, positive bowel sounds Extremities: no cyanosis or clubbing; left AKA and right BKA Skin: wound dressings in place Objective Data Vital Signs Vital Signs: Vital Signs Temp Pulse Resp BP Pulse Ox O2 Del Method FiO2 12/14/22 12:00 107 H 117/67 12/14/22 11:40 107 H 127/65 12/14/22 11:20 107 H 137/68 12/14/22 08:00 Room Air 12/14/22 11:00 106 H 115/58 L 12/14/22 10:40 108 H 138/68 12/14/22 10:20 110 H 127/64 12/14/22 10:00 112 H 110/58 L 12/14/22 09:40 116 H 143/72 H 12/14/22 09:20 116 H 163/77 H 12/14/22 09:17 116 H 152/80 H 12/14/22 09:10 97.7 F 117 H 18 155/77 H 12/14/22 08:00 99.1 F 110 H 20 164/73 H 94 12/14/22 08:00 112 H 02/0
--- NOTE | 2022-12-14 12:20 | PM.PNNEP ---
Progress Note: A&P Assessment and Plan (1) End stage renal disease: Code(s): N18.6 - End stage renal disease Status: Chronic Assessment and Plan: HD today and continue M/W/F dialysis schedule follow electrolytes, volume status, and clearance (2) Volume overload: Code(s): E87.70 - Fluid overload, unspecified Status: Acute Assessment and Plan: likely etiology of respiratory distress and hypoxia fluid removal with HD as tolerated by hemodynamics follow respiratory status (3) Altered mental status: Code(s): R41.82 - Altered mental status, unspecified Status: Acute Assessment and Plan: appears resolved due to hypoxia versus something else? r/o possible infection (given elevated WBC) I suppose uremia is possible but only missed 1 treatment follow mentation (4) Hyponatremia: Code(s): E87.1 - Hypo-osmolality and hyponatremia Status: Acute Assessment and Plan: resolving due to ESRD, likely excess fluid intake, and hyperglycemia should correct to some degree with dialysis follow trend (5) Anemia: Code(s): D64.9 - Anemia, unspecified Status: Chronic Assessment and Plan: due to ESRD and possible acute illness Epogen with HD PRBC transfusion per protocol follow trend of H/H (6) Decubitus ulcers: Code(s): L89.90 - Pressure ulcer of unspecified site, unspecified stage Status: Chronic Assessment and Plan: wound care following local wound care (7) Diabetes: Qualifiers: Diabetes mellitus complication detail: with other circulatory complications Diabetes mellitus complication status: with circulatory complication Diabetes mellitus type: type 1 Qualified Code(s): E10.59 - Type 1 diabetes mellitus with other circulatory complications Code(s): E11.9 - Type 2 diabetes mellitus without complications Status: Chronic Assessment and Plan: follow accuchecks glycemic control as per hospitalists Will continue to follow. Subjective Date/time seen: 12/14/22 12:20 Tolerating dialysis treatment at the time of my visit (seen on HD at ~ 12:00PM); breathing/respiratory status appears stable if not better; mentation seems back to baseline; no other acute issues/problems voiced currently. Exam Narrative: General: WD/WN male in NAD Heart: normal S1 and S2; no rub Lungs: decreased breath sounds at bases Abdomen: soft, nontender, nondistended, positive bowel sounds Extremities: no cyanosis or clubbing; left AKA and right BKA Skin: wound dressings in place Objective Data Vital Signs Vital Signs: Vital Signs Temp Pulse Resp BP Pulse Ox O2 Del Method FiO2 12/14/22 12:00 107 H 117/67 12/14/22 11:40 107 H 127/65 12/14/22 11:20 107 H 137/68 12/14/22 08:00 Room Air 12/14/22 11:00 106 H 115/58 L 12/14/22 10:40 108 H 138/68 12/14/22 10:20 110 H 127/64 12/14/22 10:00 112 H 110/58 L 12/14/22 09:40 116 H 143/72 H 12/14/22 09:20 116 H 163/77 H 12/14/22 09:17 116 H 152/80 H 12/14/22 09:10 97.7 F 117 H 18 155/77 H 12/14/22 08:00 99.1 F 110 H 20 164/73 H 94 12/14/22 08:00 112 H 12/14/22 04:00 112 H 12/14/22 04:00 Room Air 12/14/22 03:41 96.9 F L 97 22 H 126/86 97 12/14/22 00:00 107 H 12/14/22 00:00 Room Air 12/13/22 20:00 107 H 12/13/22 22:57 98.3 F 106 H 20 160/77 H 100 12/13/22 21:28 107 H 18 94 Room Air 21 12/13/22 20:00 Room Air 12/13/22 20:00 98.1 F 108 H 16 153/62 H 100 12/13/22 18:00 98 12/13/22 16:00 99 12/13/22 14:00 100 12/13/22 16:14 98.4 F 100 20 123/62 100 Intake/Output Intake/Output: Intake & Output 12/11/22 12/12/22 12/13/22 12/14/22 23:59 23:59 23:59 23:59 Intake Total 350 530 Output Total 2800 20
[2022-12-14] MEDS: EPOETIN ALFA-EPBX 20,000 UNITS/ML VIAL 20000 UNITS IV PUSH (12:50)
[2022-12-14 13:28] LABS: Glucose Point of Care 162 mg/dl (65-105)
--- NOTE | 2022-12-14 14:17 | PM.IMPN ---
Progress Note: A&P Assessment and Plan (1) Tachycardia: Code(s): R00.0 - Tachycardia, unspecified Status: Acute Assessment and Plan: Patient has been tachycardic since admission. Suspect this would have improved with better fluid balance but heart rate up to 124. Will check EKG. TSH was normal in November. Patient lying flat and really no evidence fluid overload at this time. Tachycardia could be related to too much fluid removal resulting in dehydration. Consider also PE although patient without complaints of chest pain and his SOB is better. Consider sepsis but unlikely given that already on abx. BCx NGTD. EKG reviewed personally showing sinus tachycardia without change. Will monitor overnight to see HR improves as he re-hydrates himself (although not eating much). If HR does not improve, consider CTA or VQ. (2) Leukocytosis: Qualifiers: Leukocytosis type: unspecified Qualified Code(s): D72.829 - Elevated white blood cell count, unspecified Code(s): D72.829 - Elevated white blood cell count, unspecified Status: Acute Assessment and Plan: WBC 18K but now normal. Continue antibiotic treatment with dialysis for probably osteomyelitis. Records pending from [facility], d/c about 2-3 weeks ago on a long course of IV abx, patient being treated for possibly ?osteomyelitis per family with IV ertapenem as well as daptomycin with dialysis. He missed his dose prior to admisison so 500 mg of ertapenem was given x1. Daptomycin resumed at dialysis treatments (3) Volume overload: Code(s): E87.70 - Fluid overload, unspecified Status: Acute Assessment and Plan: Resolved with dialysis, appreciate nephrology consultation (4) Hyperkalemia: Code(s): E87.5 - Hyperkalemia Status: Acute Assessment and Plan: Resolved with dialysis (5) Hyponatremia: Code(s): E87.1 - Hypo-osmolality and hyponatremia Status: Acute Assessment and Plan: Na 135 today. Monitor (6) Metabolic acidosis: Code(s): E87.2 - Acidosis Status: Chronic Assessment and Plan: Resolved with dialysis (7) Chronic anemia: Code(s): D64.9 - Anemia, unspecified Status: Chronic Assessment and Plan: Hemoglobin dropped to 7 range. Patient asymptomatic. Monitor and transfuse if necessary (8) Hypertension: Code(s): I10 - Essential (primary) hypertension Status: Acute Assessment and Plan: Stable, continue home meds (9) Type 1 diabetes mellitus: Qualifiers: Chronic kidney disease stage: on chronic dialysis Diabetes mellitus complication detail: with chronic kidney disease Diabetes mellitus complication status: with kidney complications Qualified Code(s): E10.22 - Type 1 diabetes mellitus with diabetic chronic kidney disease; N18.6 - End stage renal disease; Z99.2 - Dependence on renal dialysis Code(s): E10.9 - Type 1 diabetes mellitus without complications Status: Chronic Assessment and Plan: Accu-Cheks, sliding scale insulin, continue home meds (10) Decubitus ulcer: Code(s): L89.90 - Pressure ulcer of unspecified site, unspecified stage Status: Acute Assessment and Plan: Severe, suspect osteomyelitis, records still pending from [facility], appreciate Wound Care consult, offload as much as possible Plan DVT prophylaxis with heparin, on aspirin and brilinta GI prophylaxis not indicated Code status full code Subjective Date/time seen: 12/14/22 14:17 Interval history: 57yo male with ESRD here for SOB and found to have fluid overload. Feels better today. SOB much improved. No CP. HD planned for tomorrow. He states he does not have a chronic Baptiste (RN states present on admission). Patient is alert but confused. Exam Narrative: AF 98.1 123/64 118 16 95% ra Gen - NARD lying almost flat in bed Li
--- NOTE | 2022-12-14 14:25 | ECG_ITS ---
Measurements Intervals [place] Rate: 125 P: VA: 0 QRS: -9 QRSD: 77 T: 86 QT: 296 QTc: 428 Interpretive Statements SINUS TACHYCARDIA LEFT VENTRICULAR HYPERTROPHY AND ST-T CHANGE [VOLTAGE CRITERIA PLUS ST/T ABNORMALITY] COMPARED TO ECG 12/12/2022 11:10:00 NO SIGNIFICANT CHANGES Electronically Signed On 12-14-2022 15:10:34 [employer] by Jann Ash M.D.
[2022-12-14] MEDS: ASPIRIN 81 MG ENTERIC TABLET PO (14:34)
[2022-12-14] MEDS: CHOLECALCIFEROL 1,000 UNITS TABLET 1000 UNITS PO (14:34)
[2022-12-14] MEDS: ASCORBIC ACID 500 MG TABLET PO (14:34)
[2022-12-14] MEDS: CINACALCET 30 MG TABLET 90 MG PO (14:35)
[2022-12-14] MEDS: calcitrioL 0.25 MCG CAPSULE 1.25 MCG PO (14:35)
[2022-12-14] MEDS: MULTIVITAMINS THERAPEUTIC TAB (*BKC) 1 TABLET PO (14:36)
[2022-12-14] MEDS: CYANOCOBALAMIN 1,000 MCG TABLET 1000 MCG PO (14:36)
[2022-12-14] MEDS: VITAMIN B COMPLEX CAPSULE 1 CAP PO (14:36)
[2022-12-14] MEDS: lisinopriL 10 MG TABLET PO (14:37)
[2022-12-14] MEDS: GABAPENTIN 300 MG CAPSULE PO (14:37)
[2022-12-14] MEDS: SERTRALINE HCL 50 MG TABLET 100 MG PO (14:37)
[2022-12-14] MEDS: TICAGRELOR 60 MG TABLET PO (14:37)
[2022-12-14] MEDS: VITAMIN B CMPLX/VIT C/FOLIC AC 1 CAPSULE 1 CAP PO (14:37)
[2022-12-14] MEDS: PANTOPRAZOLE 40 MG TABLET PO ×2 (14:37→21:31)
[2022-12-14] MEDS: NICOTINE (*PBKC) 21 MG PATCH 1 PATCH TRANSDERM (14:38)
[2022-12-14 17:00] LABS: Glucose Point of Care 265 mg/dl (65-105)
[2022-12-14] MEDS: HYDROcodone/acetaminophen (*CRX) 5-325 MG TABLET 1 TAB PO (17:04)
[2022-12-14] MEDS: DAPTOmycin 600 MG in SODIUM CHLORIDE 0.9% IV 50 ML 100 MG IVPB (17:05)
[2022-12-14 20:08] LABS: Glucose Point of Care 375 mg/dl (65-105)
[2022-12-14] MEDS: SILVERGEL (ELTA) 45 ML 1 APPLIC TOPICAL (21:30)
[2022-12-14] MEDS: TOLNAFTATE 1% POWDER 45 GM BTL 1 APPLIC TOPICAL (21:30)
[2022-12-14] MEDS: ERTAPENEM 1 GM/NS 50 ML 1 GM/50 ML BAG IVPB (21:30)
[2022-12-14] MEDS: INSULIN ASPART (*BKC) 100 UNITS/ML 6 UNITS SUB-Q (21:32)
[2022-12-14] MEDS: INSULIN GLARGINE (*BKC) 100 UNITS/ML 10 UNITS SUB-Q (21:43)
[2022-12-14] MEDS: LORazepam (*CRX) 1 MG TABLET PO (21:43)
[2022-12-15] VITALS (18 sets, daily range): BP systolic 114–182; BP diastolic 65–89; PULSE 78–115; RESP 14–22; TEMP 36.2–37.6; O2SAT 94–100
[2022-12-15] MEDS: HYDROcodone/acetaminophen (*CRX) 5-325 MG TABLET 1 TAB PO (01:04)
[2022-12-15 04:47] LABS: Basophils Absolute Auto 0.1 K/mm3 (0.0-0.1); Eosinophils Absolute Auto 0.1 K/mm3 (0-0.3); Hematocrit 27.7 % (42.0-52.0); Hemoglobin 8.6 g/dL (14.0-18.0); Immature Granulocyte Absolute 0.04 K/mm3 (0.00-0.031); Immature Granulocyte Percent A 0.5 % (0-0.5); Lymphocytes Absolute Auto 0.78 K/mm3 (0.9-3.2); Mean Corpuscular Hemoglobin 30.4 pg (26-34); Mean Corpuscular Volume 97.9 fl (80-100); Mean Platelet Volume 9.5 fl (7.4-10.4); Monocytes Absolute Auto 0.9 K/mm3 (0.1-0.6); Monocytes Percent Auto 10.9 % (2.6-8.5); Neutrophils Percent Auto 76.6 % (45.5-73.1); Platelet Count Result 530 k/mm3 (150-375); Red Blood Count 2.83 M/mm3 (4.6-6.20); Red Cell Distribution Width 18.2 % (11.5-14.5); White Blood Count 7.8 K/mm3 (4.5-10.0)
[2022-12-15 05:19] LABS: Alanine Aminotransferase 13 U/L (6-50); Albumin Level 2.7 g/dL (3.5-5.1); Alkaline Phosphatase 118 U/L (38-126); Anion Gap 5 mmol/L (8-16); Aspartate Amino Transferase 24 U/L (17-59); Bilirubin,Total 0.3 mg/dL (0.2-1.3); Blood Urea Nitrogen 26 mg/dL (9-20); Calcium 7.9 mg/dL (8.4-10.2); Carbon Dioxide 29 mmol/L (22-30); Chloride 98 mmol/L (98-107); Estimated Glomerular Filt Rate 25; Glucose 123 mg/dL (65-110); Potassium 3.8 mmol/L (3.4-5.0); Sodium 132 mmol/L (137-145)
[2022-12-15] MEDS: HEPARIN SODIUM 5,000 UNITS/ML VIAL 5000 UNITS SUB-Q ×2 (06:04→20:41)
[2022-12-15 08:32] LABS: Glucose Point of Care 112 mg/dl (65-105)
[2022-12-15] MEDS: INSULIN GLARGINE (*BKC) 100 UNITS/ML 10 UNITS SUB-Q ×2 (09:30→20:41)
[2022-12-15] MEDS: NICOTINE (*PBKC) 21 MG PATCH 1 PATCH TRANSDERM (09:32)
[2022-12-15] MEDS: ASCORBIC ACID 500 MG TABLET PO (09:33)
[2022-12-15] MEDS: PANTOPRAZOLE 40 MG TABLET PO ×2 (09:33→20:41)
[2022-12-15] MEDS: lisinopriL 10 MG TABLET PO (09:33)
[2022-12-15] MEDS: VITAMIN B CMPLX/VIT C/FOLIC AC 1 CAPSULE 1 CAP PO (09:33)
[2022-12-15] MEDS: CYANOCOBALAMIN 1,000 MCG TABLET 1000 MCG PO (09:33)
[2022-12-15] MEDS: ASPIRIN 81 MG ENTERIC TABLET PO (09:33)
[2022-12-15] MEDS: MULTIVITAMINS THERAPEUTIC TAB (*BKC) 1 TABLET PO (09:33)
[2022-12-15] MEDS: CHOLECALCIFEROL 1,000 UNITS TABLET 1000 UNITS PO (09:33)
[2022-12-15] MEDS: TICAGRELOR 60 MG TABLET PO (09:33)
[2022-12-15] MEDS: SERTRALINE HCL 50 MG TABLET 100 MG PO (09:33)
[2022-12-15] MEDS: VITAMIN B COMPLEX CAPSULE 1 CAP PO (09:33)
[2022-12-15] MEDS: GABAPENTIN 300 MG CAPSULE PO (09:34)
[2022-12-15] MEDS: SILVERGEL (ELTA) 45 ML 1 APPLIC TOPICAL (09:34)
[2022-12-15] MEDS: TOLNAFTATE 1% POWDER 45 GM BTL 1 APPLIC TOPICAL ×2 (09:34→20:42)
[2022-12-15 11:59] LABS: Glucose Point of Care 232 mg/dl (65-105)
--- NOTE | 2022-12-15 12:24 | PM.PNNEP ---
Progress Note: A&P Assessment and Plan (1) End stage renal disease: Code(s): N18.6 - End stage renal disease Status: Chronic Assessment and Plan: HD tomorrow and continue M/W/F dialysis schedule follow electrolytes, volume status, and clearance (2) Volume overload: Code(s): E87.70 - Fluid overload, unspecified Status: Acute Assessment and Plan: resolved/resolving likely etiology of respiratory distress and hypoxia fluid removal with HD as tolerated by hemodynamics follow respiratory status (3) Altered mental status: Code(s): R41.82 - Altered mental status, unspecified Status: Acute Assessment and Plan: appears better due to hypoxia versus something else? I suppose uremia is possible but only missed 1 treatment follow mentation (4) Hyponatremia: Code(s): E87.1 - Hypo-osmolality and hyponatremia Status: Acute Assessment and Plan: resolving due to ESRD, likely excess fluid intake, and hyperglycemia should correct to some degree with dialysis follow trend (5) Anemia: Code(s): D64.9 - Anemia, unspecified Status: Chronic Assessment and Plan: due to ESRD and possible acute illness Epogen with HD PRBC transfusion per protocol follow trend of H/H (6) Decubitus ulcers: Code(s): L89.90 - Pressure ulcer of unspecified site, unspecified stage Status: Chronic Assessment and Plan: wound care following continue outpatient antibiotic therapy (7) Diabetes: Qualifiers: Diabetes mellitus complication detail: with other circulatory complications Diabetes mellitus complication status: with circulatory complication Diabetes mellitus type: type 1 Qualified Code(s): E10.59 - Type 1 diabetes mellitus with other circulatory complications Code(s): E11.9 - Type 2 diabetes mellitus without complications Status: Chronic Assessment and Plan: follow accuchecks glycemic control as per hospitalists Will continue to follow. Subjective Date/time seen: 12/15/22 12:24 Tolerated dialysis treatment yesterday with ~ 3L fluid removal; otherwise, seems to be doing significantly better; breathing/respiratory status stable if not improved; no other issues/events overnight or earlier this morning. Exam Narrative: General: WD/WN male in NAD Heart: normal S1 and S2; no rub Lungs: decreased breath sounds at bases Abdomen: soft, nontender, nondistended, positive bowel sounds Extremities: no cyanosis or clubbing; left AKA and right BKA Skin: wound dressings noted Objective Data Vital Signs Vital Signs: Vital Signs Temp Pulse Resp BP Pulse Ox O2 Del Method FiO2 12/15/22 12:00 108 H 16 100 Room Air 21 12/15/22 12:00 93 12/15/22 12:01 98.5 F 115 H 22 H 158/78 H 100 12/15/22 08:00 108 H 16 100 Room Air 12/15/22 10:00 110 H 12/15/22 08:00 93 12/15/22 08:37 97.2 F L 93 20 114/65 98 12/15/22 08:25 94 Room Air 12/15/22 05:15 97 12/15/22 04:00 97.1 F L 104 H 20 162/73 H 98 12/15/22 04:00 108 H 16 100 Room Air 21 12/15/22 04:00 108 H 12/15/22 02:00 108 H 12/15/22 00:00 98.2 F 109 H 16 148/66 H 100 12/15/22 00:00 108 H 16 98 Room Air 12/15/22 00:00 109 H 12/14/22 22:00 112 H 12/14/22 20:00 110 H 16 98 Room Air 12/14/22 20:00 110 H 12/14/22 20:00 98.2 F 114 H 16 169/77 H 98 12/14/22 18:00 120 H 12/14/22 16:00 Room Air 12/14/22 16:00 124 H 12/14/22 14:00 103 H 12/14/22 16:00 98.9 F 124 H 20 166/81 H 96 12/14/22 13:27 98.1 F 118 H 16 123/64 95 Intake/Output Intake/Output: Intake & Output 12/12/22 12/13/22 12/14/22 12/15/22 23:59 23:59 23:59 23:59 Intake Total 350 530 340 360 Output Total 2800 200 3850 401 Balance -2450 330 -3510 -4
--- NOTE | 2022-12-15 12:24 | P.PNNP_ITS ---
Progress Note: A&P Assessment and Plan (1) End stage renal disease: Code(s): N18.6 - End stage renal disease Status: Chronic Assessment and Plan: * HD tomorrow and continue M/W/ dialysis schedule * follow electrolytes, volume status, and clearance (2) Volume overload: Code(s): E87.70 - Fluid overload, unspecified Status: Acute Assessment and Plan: * resolved/resolving * likely etiology of respiratory distress and hypoxia * fluid removal with HD as tolerated by hemodynamics * follow respiratory status (3) Altered mental status: Code(s): R41.82 - Altered mental status, unspecified Status: Acute Assessment and Plan: * appears better * due to hypoxia versus something else? * I suppose uremia is possible but only missed 1 treatment * follow mentation (4) Hyponatremia: Code(s): E87.1 - Hypo-osmolality and hyponatremia Status: Acute Assessment and Plan: * resolving * due to ESRD, likely excess fluid intake, and hyperglycemia * should correct to some degree with dialysis * follow trend (5) Anemia: Code(s): D64.9 - Anemia, unspecified Status: Chronic Assessment and Plan: * due to ESRD and possible acute illness * Epogen with HD * PRBC transfusion per protocol * follow trend of H/H (6) Decubitus ulcers: Code(s): L89.90 - Pressure ulcer of unspecified site, unspecified stage Status: Chronic Assessment and Plan: * wound care following * continue outpatient antibiotic therapy (7) Diabetes: Qualifiers: Diabetes mellitus complication detail: with other circulatory complications Diabetes mellitus complication status: with circulatory complication Diabetes mellitus type: type 1 Qualified Code(s): E10.59 - Type 1 diabetes mellitus with other circulatory complications Code(s): E11.9 - Type 2 diabetes mellitus without complications Status: Chronic Assessment and Plan: * follow accuchecks * glycemic control as per hospitalists Will continue to follow. Subjective Date/time seen: 12/15/22 12:24 Tolerated dialysis treatment yesterday with ~ 3L fluid removal; otherwise, seems to be doing significantly better; breathing/respiratory status stable if not improved; no other issues/events overnight or earlier this morning. Exam Narrative: General: WD/WN male in NAD Heart: normal S1 and S2; no rub Lungs: decreased breath sounds at bases Abdomen: soft, nontender, nondistended, positive bowel sounds Extremities: no cyanosis or clubbing; left AKA and right BKA Skin: wound dressings noted Objective Data Vital Signs Vital Signs: Vital Signs Temp Pulse Resp BP Pulse Ox O2 Del Method FiO2 12/15/22 12:00 108 H 16 100 Room Air 12/15/22 12:00 93 12/15/22 12:01 98.5 F 115 H 22 H 158/78 H 100 12/15/22 08:00 108 H 16 100 Room Air 12/15/22 10:00 110 H 12/15/22 08:00 93 12/15/22 08:37 97.2 F L 93 20 114/65 98 12/15/22 08:25 94 Room Air 12/15/22 05:15 97 12/15/22 04:00 97.1 F L 104 H 20 162/73 H 98 12/15/22 04:00 108 H 16 100 Room Air 12/15/22 04:00 108 H 12/15/22 02:00 108 H 12/15/22 00:00 98.2 F 109 H 16 148/66 H 100
[2022-12-15] MEDS: INSULIN ASPART (*BKC) 100 UNITS/ML SUB-Q ×2 (13:00→17:46)
--- NOTE | 2022-12-15 13:16 | PM.DS ---
DS: Admitting Diagnosis Discharge Date 12/15/22 Admitting Diagnosis Weakness and shortness of breath DS: Discharge Diagnosis Discharge Diagnosis (1) Leukocytosis: Qualifiers: Leukocytosis type: unspecified Qualified Code(s): D72.829 - Elevated white blood cell count, unspecified Code(s): D72.829 - Elevated white blood cell count, unspecified Status: Acute (2) Volume overload: Code(s): E87.70 - Fluid overload, unspecified Status: Acute (3) Hyperkalemia: Code(s): E87.5 - Hyperkalemia Status: Acute (4) Hyponatremia: Code(s): E87.1 - Hypo-osmolality and hyponatremia Status: Acute (5) Metabolic acidosis: Code(s): E87.2 - Acidosis Status: Chronic (6) Chronic anemia: Code(s): D64.9 - Anemia, unspecified Status: Chronic (7) Hypertension: Code(s): I10 - Essential (primary) hypertension Status: Acute (8) Type 1 diabetes mellitus: Qualifiers: Diabetes mellitus complication status: with kidney complications Diabetes mellitus complication detail: with chronic kidney disease Chronic kidney disease stage: on chronic dialysis Qualified Code(s): E10.22 - Type 1 diabetes mellitus with diabetic chronic kidney disease; N18.6 - End stage renal disease; Z99.2 - Dependence on renal dialysis Code(s): E10.9 - Type 1 diabetes mellitus without complications Status: Chronic (9) Decubitus ulcer: Code(s): L89.90 - Pressure ulcer of unspecified site, unspecified stage Status: Acute DS: Summary Hospital Course Reason for hospitalization: 57yo male with ESRD here for SOB and found to have fluid overload. Please see H&P for details Hospital Course: Patient presents with SOB and found to have fluid overload. Also with elevated potassium level. Also had metabolic acidosis and hyponatremia. He was admitted and underwent dialysis with good results. Symptoms resolved and potassium normalized. Metabolic acidosis and hyponatremia resolved as well. Hemoglobin dropped to 7-8 range but stable. [place] to be chronic. Patient was noted to be tachycardic.?TSH was normal in November.? Patient lying flat and really no evidence fluid overload at this time.? Tachycardia could be related to too much fluid removal resulting in dehydration.? Considered PE but no complaints of chest pain or SOB Consider sepsis but unlikely given that already on abx. BCx NGTD. Heart rate improved as he re-hydrated himself. WBC 18K but now normalized. We continued antibiotic treatment with dialysis for probably osteomyelitis. Records pending from [facility], d/c about 2-3 weeks ago on a long course of IV abx, patient being treated for possibly ?osteomyelitis per family with IV ertapenem as well as daptomycin with dialysis. He missed his dose prior to admission so 500 mg of ertapenem was given x1. Daptomycin resumed at dialysis treatments. He overall did well as was able to be discharged on 12/15/22 Status at Discharge Cognitive/behavioral status at discharge: stable Time Spent with Patient Time attestation: Total time spent providing and/or coordinating discharge services: 34 minutes Time spent: Greater than 30 minutes Exam Narrative: AF 98.1 158/78 115 22 100% ra Gen - NARD lying almost flat in bed Chest -CTA bilaterally. tunneled HD catheter right upper chest. CV - tachycardic, regular; Tele showing occasional sinus tachycardia but NSR overnight Abd - Soft, NT/ND, Positive BS. Colostomy with brown stool in bag - Baptiste secured draining clear yellow urine Ext - bilateral AKA. Psych - Nml mood and affect Skin - warm and dry DS: Data Data Completed and Pending Labs on day of discharge: Labs from last 24 hours 12/15/22 12/15/22 12/15/22 11:45 08:27 04:27 WBC RBC Hgb Hct MCV MCH MCHC RDW Plt Count MPV Immature Gran % (Auto) Neut % (Auto) Lymph % (Auto) Bent % (A
[2022-12-15] MEDS: ONDANSETRON INJ 4 MG/2 ML VIAL IV PUSH (15:00)
[2022-12-15 15:34] LABS: Glucose Point of Care 217 mg/dl (65-105)
[2022-12-15 19:04] LABS: Lipase 11 U/L (23-300)
[2022-12-15 19:15] LABS: Hepatitis B Core Ab Total Nonreactive (Nonreactive)
[2022-12-15 20:33] LABS: Glucose Point of Care 284 mg/dl (65-105)
[2022-12-16] VITALS (19 sets, daily range): BP systolic 97–152; BP diastolic 54–81; PULSE 88–114; RESP 14–20; TEMP 36–37.1; O2SAT 99–100
[2022-12-16 04:37] LABS: Basophils Absolute Auto 0.1 K/mm3 (0.0-0.1); Basophils Percent Auto 0.6 % (0.2-1.2); Eosinophils Absolute Auto 0.1 K/mm3 (0-0.3); Eosinophils Percent Auto 0.6 % (0-4.4); Hematocrit 25.1 % (42.0-52.0); Hemoglobin 7.8 g/dL (14.0-18.0); Immature Granulocyte Absolute 0.05 K/mm3 (0.00-0.031); Immature Granulocyte Percent A 0.4 % (0-0.5); Lymphocytes Absolute Auto 1.51 K/mm3 (0.9-3.2); Lymphocytes Percent Auto 13.5 % (18.3-44.2); Mean Corpuscular HGB Conc 31.1 g/dl (32-36); Mean Corpuscular Hemoglobin 30.2 pg (26-34); Mean Corpuscular Volume 97.3 fl (80-100); Mean Platelet Volume 9.5 fl (7.4-10.4); Monocytes Absolute Auto 0.8 K/mm3 (0.1-0.6); Monocytes Percent Auto 7.3 % (2.6-8.5); Neutrophils Absolute Auto 8.7 K/mm3 (1.3-6.7); Neutrophils Percent Auto 77.6 % (45.5-73.1); Platelet Count Result 531 k/mm3 (150-375); Red Blood Count 2.58 M/mm3 (4.6-6.20); Red Cell Distribution Width 17.8 % (11.5-14.5); White Blood Count 11.2 K/mm3 (4.5-10.0)
[2022-12-16 04:57] LABS: Alanine Aminotransferase 13 U/L (6-50); Albumin Level 2.3 g/dL (3.5-5.1); Alkaline Phosphatase 93 U/L (38-126); Anion Gap 10 mmol/L (8-16); Aspartate Amino Transferase 27 U/L (17-59); Bilirubin,Total 0.3 mg/dL (0.2-1.3); Blood Urea Nitrogen 61 mg/dL (9-20); Calcium 7.3 mg/dL (8.4-10.2); Carbon Dioxide 24 mmol/L (22-30); Chloride 97 mmol/L (98-107); Estimated Glomerular Filt Rate 18; Glucose 126 mg/dL (65-110); Potassium 4.5 mmol/L (3.4-5.0); Sodium 131 mmol/L (137-145)
[2022-12-16] MEDS: HYDROcodone/acetaminophen (*CRX) 5-325 MG TABLET 1 TAB PO ×2 (05:08→09:01)
[2022-12-16] MEDS: HEPARIN SODIUM 5,000 UNITS/ML VIAL 5000 UNITS SUB-Q (05:08)
[2022-12-16 07:59] LABS: Glucose Point of Care 124 mg/dl (65-105)
[2022-12-16] MEDS: INSULIN GLARGINE (*BKC) 100 UNITS/ML 10 UNITS SUB-Q (08:30)
[2022-12-16] MEDS: NICOTINE (*PBKC) 21 MG PATCH 1 PATCH TRANSDERM (08:36)
[2022-12-16] MEDS: SERTRALINE HCL 50 MG TABLET 100 MG PO (08:37)
[2022-12-16] MEDS: TOLNAFTATE 1% POWDER 45 GM BTL 1 APPLIC TOPICAL (08:40)
--- NOTE | 2022-12-16 11:06 | PM.DS ---
DS: Admitting Diagnosis Discharge Date 12/16/22 Admitting Diagnosis Weakness and shortness of breath DS: Discharge Diagnosis Discharge Diagnosis (1) Volume overload: Code(s): E87.70 - Fluid overload, unspecified Status: Acute (2) Leukocytosis: Qualifiers: Leukocytosis type: unspecified Qualified Code(s): D72.829 - Elevated white blood cell count, unspecified Code(s): D72.829 - Elevated white blood cell count, unspecified Status: Acute (3) Hyperkalemia: Code(s): E87.5 - Hyperkalemia Status: Acute (4) Hyponatremia: Code(s): E87.1 - Hypo-osmolality and hyponatremia Status: Acute (5) Metabolic acidosis: Code(s): E87.2 - Acidosis Status: Chronic (6) Chronic anemia: Code(s): D64.9 - Anemia, unspecified Status: Chronic (7) Hypertension: Code(s): I10 - Essential (primary) hypertension Status: Acute (8) Type 1 diabetes mellitus: Qualifiers: Diabetes mellitus complication status: with kidney complications Diabetes mellitus complication detail: with chronic kidney disease Chronic kidney disease stage: on chronic dialysis Qualified Code(s): E10.22 - Type 1 diabetes mellitus with diabetic chronic kidney disease; N18.6 - End stage renal disease; Z99.2 - Dependence on renal dialysis Code(s): E10.9 - Type 1 diabetes mellitus without complications Status: Chronic (9) Decubitus ulcer: Code(s): L89.90 - Pressure ulcer of unspecified site, unspecified stage Status: Acute DS: Summary Hospital Course Reason for hospitalization: 57yo male with ESRD here for SOB and found to have fluid overload. Please see H&P for details. Hospital Course: Patient presents with SOB and found to have fluid overload. Also with elevated potassium level. Also had metabolic acidosis and hyponatremia. He was admitted and underwent dialysis with good results. Symptoms resolved and potassium normalized. Metabolic acidosis and hyponatremia resolved as well. Hemoglobin dropped to 7-8 range but stable. [place] to be chronic. Patient was noted to be tachycardic.?TSH was normal in November.? Patient lying flat and really no evidence fluid overload at this time.? Tachycardia could be related to too much fluid removal resulting in dehydration.? Considered PE but no complaints of chest pain or SOB Consider sepsis but unlikely given that already on abx. BCx NGTD. Heart rate improved as he re-hydrated himself. WBC 18K but now normalized. We continued antibiotic treatment with dialysis for probably osteomyelitis. Records pending from [facility], d/c about 2-3 weeks ago on a long course of IV abx, patient being treated for possibly ?osteomyelitis per family with IV ertapenem as well as daptomycin with dialysis. He missed his dose prior to admission so 500 mg of ertapenem was given x1. Daptomycin resumed at dialysis treatments. After discharge completed, was called back to the room with family present because patient became diaphoretic and had episode of vomiting. He stated he felt tired but denied CP or abd pain. Family wsa concerned also that patient is confused and hallucinating by saying he thought he was at the store yesterday for example. Exam is unchanged. Patient has known chronic confusion probably vascular dementia. KUB was normal. Abd exam was benign. Lipase normal. He was held overnight. No issues overnight. Patient having dialysis this morning. He overall did well as was able to be discharged on 12/16/22 Status at Discharge Cognitive/behavioral status at discharge: stable Time Spent with Patient Time attestation: Total time spent providing and/or coordinating discharge services: 35 minutes Time spent: Greater than 30 minutes Exam Narrative: AF ? 98.1 105/59 94 14 99% ra Gen - NARD lying semi-recumbent having dialysis Chest - lungs clear anteriorly. tunneled HD catheter right upper chest. CV - RRR S1/S2 Abd
[2022-12-16] MEDS: SODIUM CHLORIDE 0.9% IV 1,000 ML 999 ML IV CONT (11:22)
[2022-12-16] MEDS: EPOETIN ALFA-EPBX 20,000 UNITS/ML VIAL 20000 UNITS IV PUSH (11:23)
--- NOTE | 2022-12-16 11:54 | P.PNNP_ITS ---
Progress Note: A&P Assessment and Plan (1) End stage renal disease: Code(s): N18.6 - End stage renal disease Status: Chronic Assessment and Plan: * HD today and continue M// dialysis schedule * follow electrolytes, volume status, and clearance (2) Volume overload: Code(s): E87.70 - Fluid overload, unspecified Status: Acute Assessment and Plan: * resolved/resolving * likely etiology of respiratory distress and hypoxia * fluid removal with HD as tolerated by hemodynamics * follow respiratory status (3) Altered mental status: Code(s): R41.82 - Altered mental status, unspecified Status: Acute Assessment and Plan: * appears better * due to hypoxia versus something else? * I suppose uremia is possible but only missed 1 treatment * follow mentation (4) Hyponatremia: Code(s): E87.1 - Hypo-osmolality and hyponatremia Status: Acute Assessment and Plan: * resolving * due to ESRD, likely excess fluid intake, and hyperglycemia * should correct to some degree with dialysis * follow trend (5) Anemia: Code(s): D64.9 - Anemia, unspecified Status: Chronic Assessment and Plan: * due to ESRD and possible acute illness * Epogen with HD * PRBC transfusion per protocol * follow trend of H/H (6) Decubitus ulcers: Code(s): L89.90 - Pressure ulcer of unspecified site, unspecified stage Status: Chronic Assessment and Plan: * wound care following * continue outpatient antibiotic therapy (7) Diabetes: Qualifiers: Diabetes mellitus complication detail: with other circulatory complications Diabetes mellitus complication status: with circulatory complication Diabetes mellitus type: type 1 Qualified Code(s): E10.59 - Type 1 diabetes mellitus with other circulatory complications Code(s): E11.9 - Type 2 diabetes mellitus without complications Status: Chronic Assessment and Plan: * follow accuchecks * glycemic control as per hospitalists Will continue to follow. Subjective Date/time seen: 12/16/22 11:54 Tolerating dialysis at the time of my visit (seen on HD at ~ 11:45AM); no apparent distress voiced at this time; no issues/events overnight or earlier this morning; respiratory status/breathing as well as mentation seem back to baseline. Exam Narrative: General: WD/WN male in NAD Heart: normal S1 and S2; no rub Lungs: decreased breath sounds at bases Abdomen: soft, nontender, nondistended, positive bowel sounds Extremities: no cyanosis or clubbing; left AKA and right BKA Skin: wound dressings noted Objective Data Vital Signs Vital Signs: Vital Signs Temp Pulse Resp BP Pulse Ox O2 Del Method FiO2 12/16/22 11:40 97 124/71 12/16/22 11:20 96 120/64 12/16/22 11:00 94 105/59 L 12/16/22 10:00 88 12/16/22 10:40 93 111/60 12/16/22 10:20 94 97/54 L 12/16/22 10:00 94 98/57 L 12/16/22 09:10 98.1 F 93 14 125/68 12/16/22 09:40 99 134/74 12/16/22 09:21 96 151/81 H 12/16/22 08:00 96.8 F L 88 16 104/58 L 99 12/16/22 06:00 98 12/16/22 04:00 97.8 F 105 H 18 152/76 H 99 12/16/22 04:00 105 H 20 100 BiPAP 30 12/16/22 04
--- NOTE | 2022-12-16 11:54 | PM.PNNEP ---
Progress Note: A&P Assessment and Plan (1) End stage renal disease: Code(s): N18.6 - End stage renal disease Status: Chronic Assessment and Plan: HD today and continue M/W/F dialysis schedule follow electrolytes, volume status, and clearance (2) Volume overload: Code(s): E87.70 - Fluid overload, unspecified Status: Acute Assessment and Plan: resolved/resolving likely etiology of respiratory distress and hypoxia fluid removal with HD as tolerated by hemodynamics follow respiratory status (3) Altered mental status: Code(s): R41.82 - Altered mental status, unspecified Status: Acute Assessment and Plan: appears better due to hypoxia versus something else? I suppose uremia is possible but only missed 1 treatment follow mentation (4) Hyponatremia: Code(s): E87.1 - Hypo-osmolality and hyponatremia Status: Acute Assessment and Plan: resolving due to ESRD, likely excess fluid intake, and hyperglycemia should correct to some degree with dialysis follow trend (5) Anemia: Code(s): D64.9 - Anemia, unspecified Status: Chronic Assessment and Plan: due to ESRD and possible acute illness Epogen with HD PRBC transfusion per protocol follow trend of H/H (6) Decubitus ulcers: Code(s): L89.90 - Pressure ulcer of unspecified site, unspecified stage Status: Chronic Assessment and Plan: wound care following continue outpatient antibiotic therapy (7) Diabetes: Qualifiers: Diabetes mellitus complication detail: with other circulatory complications Diabetes mellitus complication status: with circulatory complication Diabetes mellitus type: type 1 Qualified Code(s): E10.59 - Type 1 diabetes mellitus with other circulatory complications Code(s): E11.9 - Type 2 diabetes mellitus without complications Status: Chronic Assessment and Plan: follow accuchecks glycemic control as per hospitalists Will continue to follow. Subjective Date/time seen: 12/16/22 11:54 Tolerating dialysis at the time of my visit (seen on HD at ~ 11:45AM); no apparent distress voiced at this time; no issues/events overnight or earlier this morning; respiratory status/breathing as well as mentation seem back to baseline. Exam Narrative: General: WD/WN male in NAD Heart: normal S1 and S2; no rub Lungs: decreased breath sounds at bases Abdomen: soft, nontender, nondistended, positive bowel sounds Extremities: no cyanosis or clubbing; left AKA and right BKA Skin: wound dressings noted Objective Data Vital Signs Vital Signs: Vital Signs Temp Pulse Resp BP Pulse Ox O2 Del Method FiO2 12/16/22 11:40 97 124/71 12/16/22 11:20 96 120/64 12/16/22 11:00 94 105/59 L 12/16/22 10:00 88 12/16/22 10:40 93 111/60 12/16/22 10:20 94 97/54 L 12/16/22 10:00 94 98/57 L 12/16/22 09:10 98.1 F 93 14 125/68 12/16/22 09:40 99 134/74 12/16/22 09:21 96 151/81 H 12/16/22 08:00 96.8 F L 88 16 104/58 L 99 12/16/22 06:00 98 12/16/22 04:00 97.8 F 105 H 18 152/76 H 99 12/16/22 04:00 105 H 20 100 BiPAP 12/16/22 04:00 103 H 12/16/22 02:00 105 H 12/16/22 00:00 BiPAP 30 12/16/22 00:00 114 H 12/15/22 23:16 97.4 F L 112 H 20 182/89 H 100 12/15/22 23:05 100 BiPAP 30 12/15/22 23:03 112 H 20 100 BiPAP 12/15/22 22:00 110 H 12/15/22 20:00 Room Air 12/15/22 20:00 113 H 12/15/22 20:00 99.6 F 113 H 14 166/73 H 100 12/15/22 18:00 81 12/15/22 16:00 108 H 16 100 Room Air 21 12/15/22 16:00 93 Intake/Output Intake/Output: Intake & Output 12/13/22 12/14/22 12/15/22 12/16/22 23:59 23:59 23:59 23:59 Intake Total 530 279 096 7601 Output Total 200 3850 401 50 Balance 330 -3
[2022-12-16 13:24] LABS: Glucose Point of Care 233 mg/dl (65-105)
[2022-12-16] MEDS: ONDANSETRON HCL ODT 4 MG TABLET PO (14:12)
[2022-12-16] MEDS: ONDANSETRON HCL ODT 4 MG TABLET (14:12)
== END 2022-12-16 14:24 | DRG 640 ==
LOC: ANHED 12:52 → ANHIMU 13:01
PROVIDERS: Internal Medicine Nephrology; Physician Assistant; Student in an Organized Health Care Education/Training Program; Admitting Provider Internal Medicine; Emergency Provider Emergency Medicine; PCP Emergency Medicine; Visit Provider Internal Medicine
DX: E87.70 Fluid overload, unspecified (principal); J96.01 Acute respiratory failure with hypoxia; L89.224 Pressure ulcer of left hip, stage 4; L89.154 Pressure ulcer of sacral region, stage 4; N18.6 End stage renal disease; I13.2 Hypertensive heart and chronic kidney disease with heart failure and with stage 5 chronic kidney disease, or end stage renal disease; R44.2 Other hallucinations; M86.9 Osteomyelitis, unspecified; I50.9 Heart failure, unspecified; D72.829 Elevated white blood cell count, unspecified; E87.5 Hyperkalemia; Z20.822 Contact with and (suspected) exposure to COVID-19; E87.1 Hypo-osmolality and hyponatremia; E10.22 Type 1 diabetes mellitus with diabetic chronic kidney disease; E87.21 Acute metabolic acidosis; N40.0 Benign prostatic hyperplasia without lower urinary tract symptoms; F41.8 Other specified anxiety disorders; I25.10 Atherosclerotic heart disease of native coronary artery without angina pectoris; E10.319 Type 1 diabetes mellitus with unspecified diabetic retinopathy without macular edema; E10.65 Type 1 diabetes mellitus with hyperglycemia; I73.9 Peripheral vascular disease, unspecified; E55.9 Vitamin D deficiency, unspecified; K21.9 Gastro-esophageal reflux disease without esophagitis; N25.0 Renal osteodystrophy; F17.210 Nicotine dependence, cigarettes, uncomplicated; R00.0 Tachycardia, unspecified; E86.0 Dehydration; E87.22 Chronic metabolic acidosis; D63.1 Anemia in chronic kidney disease; Z89.619 Acquired absence of unspecified leg above knee; Z99.2 Dependence on renal dialysis; Z79.82 Long term (current) use of aspirin; I25.2 Old myocardial infarction; Z89.511 Acquired absence of right leg below knee; Z89.612 Acquired absence of left leg above knee; Z98.42 Cataract extraction status, left eye; Z98.41 Cataract extraction status, right eye; Z95.5 Presence of coronary angioplasty implant and graft
CPT/HCPCS: 36415; 36600; 71045; 74019; 80048; 80053; 82375; 82550; 82803; 82805; 82948; 83050; 83605; 83690; 83735; 83880; 84100; 85025; 85610; 85730; 86140; 86704; 86706; 87040; 87340; 87636; 93005; 94002; 94003; 94640; 96374; 96375; 99285; A9270; G0257; G0378; G0379; J0456; J0696; J0878; J1335; J1644; J1815; J2270; J2405; J7030; P9047; Q5105

== ENCOUNTER 2022-12-26 10:23 | Inpatient (IN) | payer MEDICARE, MEDICAID, SELFPAY ==
[2022-12-26] VITALS (64 sets, daily range): BP systolic 58–184; BP diastolic 36–91; PULSE 60–144; RESP 13–24; TEMP 36–37.7; O2SAT 77–100
--- NOTE | ~2022-12-26 | XR_ITS ---
EXAMINATION: XR barium swallow modified DATE: 01/09/2023 09:55 INDICATION: Dysphagia. TECHNIQUE: The patient was given barium-containing material of multiple consistencies to swallow by t alis speech pathologist while I performed fluoroscopy. Dose-area product was 7.154 Gy-cm2. 2.9 minutes fluoroscopy time FINDINGS: Oral Stage: Within functional limits Pharyngeal Phase: Reduced laryngeal elevation, reduced laryngeal abduction Laryngeal penetration Aspiration with thin liquids by straw, no cough response Cervical/Esophageal Stage: Within functional limits IMPRESSION: Modified esophagram findings as above including silent aspiration with thin liquids by st raw. Please refer to the speech therapy report for specific recommendations. Reviewed, dictated and finalized at [facility]. Reviewed, dictated and finalized at location [facility]. RTMENT HEAD COLLEGE OR UNIVERSITY IMPRESSION: Modified esophagram findings as above including silent aspiration w ith thin liquids by straw. Please refer to the speech therapy report for specif ic recommendations.
--- NOTE | ~2022-12-26 | XR_ITS ---
EXAMINATION: XR chest 1V portable DATE: 12/30/2022 06:27 INDICATION: Respiratory failure. TECHNIQUE: A single frontal view of the chest was obtained. COMPARISON: Chest single view 12/29/2022 FINDINGS: There is a diffuse interstitial pattern in the lungs. There are airspace opacities in right lower lung zone and left mid and lower lung zones. No pleural effusion or pneumothorax. Cardiomegaly is noted. A left internal jugular central venous catheter is seen with tip in the superior vena cava . A right internal jugular central venous catheter is seen with tip in the right atrium. IMPRESSION: 1. Stable diffuse lung disease, consistent with pulmonary edema versus pneumonia. 2. Cardiomegaly. Reviewed, dictated and finalized at location A. OSAL ENGINEER IMPRESSION: 1. Stable diffuse lung disease, consistent with pulmonary edema versus pneumoni a. 2. Cardiomegaly.
--- NOTE | ~2022-12-26 | XR_ITS ---
XR chest 1V portable 12/28/2022 06:22 Indication: Respiratory failure Procedure: AP portable chest Comparison: Comparison to multiple prior studies sequentially, with oldest reviewed study dated 12/12. Findings: Endotracheal tube tip approximately 5 cm above the luciano. NG tube in the stomach. Left IJ central venous catheter tip in the SVC. Large bore right IJ central venous catheter tip near the cavo atrial junction. There is patchy bilateral airspace disease which may reflect edema or pneumonia. Pos sible small effusion. No pneumothorax. Impression: 1: Patchy bilateral airspace disease which may represent edema or pneumonia. Reviewed, dictated and finalized at location A. TRONICS ASSEMBLER Impression: 1: Patchy bilateral airspace disease which may represent edema or pneumonia.
--- NOTE | ~2022-12-26 | XR_ITS ---
Portable chest x-ray Comparison: 01/10/2023 Clinical History: Respiratory failure Findings: Endotracheal tube, NG tube, and bilateral central venous lines are in place. Small right p leural effusion is present. There is probable mild perihilar and upper lobe groundglass pulmonary dis ease bilaterally. Cardiomediastinal silhouette is stable. Bones and soft tissues are unremarkable. Impression: Support tubes, as above. Significant reexpansion of the right lung since prior exam. Small right pleural effusion. Mild bilateral ground glass pulmonary disease, nonspecific. Reviewed, dictated and finalized at location M. SINGER Impression: Support tubes, as above. Significant reexpansion of the right lung since prior exam. Small right pleural effusion. Mild bilateral ground glass pulmonary disease, nonspecific.
--- NOTE | ~2022-12-26 | XR_ITS ---
Portable chest x-ray Comparison: 01/03/2023 Clinical History: Tube placement Findings: Endotracheal tube, NG tube, and bilateral central venous lines are in satisfactory positio ns. Small right pleural effusion is present. There is extensive hazy right lung airspace disease. The re is minimal groundglass opacity in the left lung. Cardiomediastinal silhouette is stable. Bones an d soft tissues are unremarkable. Impression: Support tubes, as above. Small right pleural effusion with extensive hazy right lung airspace disease. Minimal hazy airspace disease in the left lung. Reviewed, dictated and finalized at location . TRY HATCHERY MANAGER Impression: Support tubes, as above. Small right pleural effusion with extensive hazy right lung airspace disease. Minimal hazy airspace disease in the left lung.
--- NOTE | ~2022-12-26 | CT_ITS ---
CT head without contrast Indication: Cardiac arrest COMPARISON: 01/02/2023 Technique: Serial scans were obtained through the brain without the administration of contrast. Dose reduction technique was used on this scan by utilizing automated exposure control and iterative recon struction technique. The dose-length product (DLP) was 605.33 mGy-cm. Findings: There is no evidence of intracranial hemorrhage, mass lesion, or acute infarct. Chronic lef t frontal lobe infarct/encephalomalacia is unchanged. The ventricles and subarachnoid spaces are dila carson, consistent with mild atrophy. Low attenuation regions are seen within the periventricular white matter bilaterally, likely representing changes from chronic microvascular ischemic disease. There i s no evidence of edema, mass effect or midline shift. The visualized paranasal sinuses and mastoid air cells are clear. Impression: No intracranial hemorrhage, mass, or acute infarct. 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 Atrophy and chronic white matter changes, as above. Reviewed, dictated and finalized at [facility]. FACTURER AGENT Impression: No intracranial hemorrhage, mass, or acute infarct. 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 Atrophy and chronic white matter changes, as above.
--- NOTE | ~2022-12-26 | XR_ITS ---
XR chest 1V portable 12/31/2022 05:53 Indication: Respiratory failure Procedure: AP portable chest Comparison: Comparison to multiple prior studies sequentially, with oldest reviewed study dated 12/27. Findings: Central line tip in the SVC. Large bore central venous catheter tip in the right atrium. Mi ld cardiomegaly. There is pulmonary edema which has progressed. Small left effusion. No pneumothorax. Impression: 1: Cardiomegaly with progression of pulmonary edema. Reviewed, dictated and finalized at location A. OSE CELLAR CHARGE HAND Impression: 1: Cardiomegaly with progression of pulmonary edema.
--- NOTE | ~2022-12-26 | XR_ITS ---
Portable chest x-ray Comparison: 01/02/2023 Clinical History: Pulmonary edema Findings: Bilateral central venous lines are unchanged. There is worsening airspace consolidation in the right lower lobe. There is mild haziness in the left perihilar region and left lower lobe, with minimal involvement in the upper lobes. Probable minimal pleural effusions present. Cardiomediastinal silhouette is stable. Bones and soft tissues are unremarkable. Impression: Probable mild to moderate pulmonary edema pattern, with worsening involvement in the right lower lobe , and improvement in the right upper lobe, since prior exam. Stable support tubes. Minimal pleural effusions. Reviewed, dictated and finalized at location . CTOR VACCINE Impression: Probable mild to moderate pulmonary edema pattern, with worsening involvement i n the right lower lobe, and improvement in the right upper lobe, since prior ex am. Stable support tubes. Minimal pleural effusions.
--- NOTE | ~2022-12-26 | CT_ITS ---
CT Scan of the Chest without Contrast: Clinical Indication: Respiratory failure Technique: Contiguous sections were acquired throughout the chest without intravenous contrast. Dose reduction technique was used on this scan by utilizing automated exposure control and iterative recon struction technique. The dose-length product (DLP) was 144.15 mGy-cm. COMPARISON: 10/24/2022 Findings: Endotracheal tube and NG tube are in place. There is no evidence of any significant mediastinal, hilar or axillary lymphadenopathy. There are ext ensive atherosclerotic calcifications of the aorta. Extensive coronary artery calcifications are pres ent. There are patchy areas of groundglass opacity in the lingula/anterior left upper lobe. There are mini mal tree-in-bud opacities in the left lower lobe. There is complete opacification of the right hemithorax, with small to small moderate pleural effusio n and complete consolidation/collapse of the right lung. There is extensive patchy hyperdense materia l/appearance of the right lung parenchyma, which could reflect aspiration. Images through the upper abdomen reveal extensive atherosclerotic calcifications of the abdominal vas culature, including the visualized abdominal aorta, celiac axis vessels, splenic vessels, and renal v essels bilaterally. Stable chronic probable nonunited fracture of the mid sternal body as compared to prior exam. Impression: Complete consolidation/atelectasis of the right lung, with extensive hyperdense material/appearance o f the lung parenchyma, suggestive of aspiration. Associated small to small moderate right pleural effusion present. Patchy groundglass opacity in the lingula/anterior left upper lobe, with minimal tree-in-bud opacitie s in the left lower lobe. Findings are consistent with pneumonia/infectious process. Reviewed, dictated and finalized at location M. CIATE PROGRAMMER Impression: Complete consolidation/atelectasis of the right lung, with extensive hyperdense material/appearance of the lung parenchyma, suggestive of aspiration. Associated small to small moderate right pleural effusion present. Patchy groundglass opacity in the lingula/anterior left upper lobe, with minima l tree-in-bud opacities in the left lower lobe. Findings are consistent with pn eumonia/infectious process.
--- NOTE | ~2022-12-26 | XR_ITS ---
Portable chest x-ray Comparison: 01/12/2023 Clinical History: Respiratory failure Findings: Endotracheal tube, NG tube, and bilateral central venous lines are unchanged. There is haz y right basilar airspace disease. Left lung is clear. Cardiomediastinal silhouette is stable. Bones and soft tissues are unremarkable. Impression: Hazy right basilar airspace disease. Correlate for asymmetric pulmonary edema/atelectasis versus pneu monia. Support tubes, as above. Reviewed, dictated and finalized at [facility]. HOTHERAPIST COUNSELOR Impression: Hazy right basilar airspace disease. Correlate for asymmetric pulmonary edema/a telectasis versus pneumonia. Support tubes, as above.
--- NOTE | ~2022-12-26 | XR_ITS ---
Portable chest x-ray Comparison: 01/08/2023 Clinical History: Respiratory failure Findings: Bilateral central venous lines are unchanged. Moderate right pleural effusion is present. There is extensive groundglass pulmonary disease in the perihilar regions upper lobes. Cardiomediast inal silhouette is stable. Bones and soft tissues are unremarkable. Impression: Moderate right pleural effusion. Perihilar and upper lobe mild groundglass pulmonary disease. Correlate for mild pulmonary edema or at ypical infection. Support tubes, as above. Reviewed, dictated and finalized at location . AIN FISHING VESSEL Impression: Moderate right pleural effusion. Perihilar and upper lobe mild groundglass pulmonary disease. Correlate for mild pulmonary edema or atypical infection. Support tubes, as above.
--- NOTE | ~2022-12-26 | XR_ITS ---
XR chest 1V portable DATE: 01/08/2023 06:31 INDICATION: Respiratory failure TECHNIQUE: Portable AP chest on January 08, 2023 at 0522 hours COMPARISON: January 07, 2022 portable AP chest at 0524 hours FINDINGS: Right internal jugular central venous line in right atrium and left internal jugular line i n superior vena cava, unchanged. 2. Low ET tube is 6.4 cm above luciano; ideal range is 2-5 cm. NG tube in stomach, proximal side-port approximately 5 cm distal to the diaphragmatic hiatus. Persistent right lower lung infiltrate and/atelectasis. Bilateral hyperinflation. Heart size appears normal. Aortic calcification. Levoscoliosis of the thoracic spine. Osteopenia. IMPRESSION: ET tube 6.4 cm above luciano; ideal range is 2 and 5 cm Persistent right lower lung infiltrate and/or atelectasis Reviewed, dictated and finalized at location A. IST PHARMACEUTICAL
--- NOTE | ~2022-12-26 | XR_ITS ---
EXAMINATION: XR chest 1V portable DATE: 12/29/2022 05:34 INDICATION: Respiratory failure. TECHNIQUE: A single frontal view of the chest was obtained. COMPARISON: Chest single view 12/28/2022, chest CT 10/24/2022 FINDINGS: There are airspace opacities in right mid and lower lung zones and all left lung zones and no pleural effusion or pneumothorax. Cardiomegaly is noted. A left internal jugular central venous ca theter is seen with tip in the superior vena cava. A right internal jugular central venous catheter i s seen with tip in the right atrium. IMPRESSION: 1. Worsened diffuse lung disease, consistent with pulmonary edema versus pneumonia. 2. Cardiomegaly. Reviewed, dictated and finalized at location A. INSERTER IMPRESSION: 1. Worsened diffuse lung disease, consistent with pulmonary edema versus pneumo tyree. 2. Cardiomegaly.
--- NOTE | ~2022-12-26 | CT_ITS ---
EXAMINATION: CT brain wo con DATE: 12/26/2022 17:09 INDICATION: AMS . TECHNIQUE: Computed tomography (CT) of the head was performed without intravenous contrast. The mA wa s adjusted according to patient size. Iterative reconstruction technique was employed. The dose-lengt h product was 605.33 mGy-cm. COMPARISON: 11/25/2022. FINDINGS: No acute intracranial hemorrhage or extra-axial fluid collection. No hydrocephalus, mass, or herniation. No acute ischemic infarct. Unremarkable dural venous sinus attenuation. No acute osseous abnormality. Retention cysts or polyps in the sphenoid sinuses, trace left mastoid fluid, the remaining aerated sp aces are clear. Moderate atrophy and moderate chronic white matter change. Bifrontal and bitemporal encephalomalacia. 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 Atherosclerotic intracranial calcification. Left lens replacement. IMPRESSION: No acute intracranial process. Reviewed, dictated and finalized at location K. STRAP SEWER
--- NOTE | ~2022-12-26 | CT_ITS ---
CT head without contrast Indication: Unresponsive COMPARISON: 12/26/2022 Technique: Serial scans were obtained through the brain without the administration of contrast. Dose reduction technique was used on this scan by utilizing automated exposure control and iterative recon struction technique. The dose-length product (DLP) was 605.33 mGy-cm. Findings: There is no evidence of intracranial hemorrhage, mass lesion, or acute infarct. Stable left frontal lobe encephalomalacia. The ventricles and subarachnoid spaces are dilated, consistent with m ild atrophy. Low attenuation regions are seen within the periventricular white matter bilaterally, l ikely representing changes from chronic microvascular ischemic disease. There is no evidence of edema , mass effect or midline shift. The visualized paranasal sinuses and mastoid air cells are clear. Impression: No intracranial hemorrhage, mass, or acute infarct. Atrophy and chronic white matter changes, as above. Stable left frontal lobe encephalomalacia. Reviewed, dictated and finalized at location . RAM COUNSELOR Impression: No intracranial hemorrhage, mass, or acute infarct. Atrophy and chronic white matter changes, as above. Stable left frontal lobe encephalomalacia.
--- NOTE | ~2022-12-26 | XR_ITS ---
EXAMINATION: XR chest ET placement DATE: 12/26/2022 11:06 INDICATION: Intubation. TECHNIQUE: A single frontal view of the chest was obtained. COMPARISON: Chest single view 12/12/2022, chest CT 10/24/2022 FINDINGS: There is a diffuse interstitial pattern. There are airspace opacities in right mid and lowe r lung zones and left mid lung zone. No pleural effusion or pneumothorax. The heart size is normal. T he endotracheal tube tip is 4.5 cm above the luciano. The nasogastric tube tip is in the stomach. A ri ght internal jugular central venous catheter is seen with tip at the superior cavoatrial junction. IMPRESSION: 1. Diffuse lung disease, consistent with pulmonary edema without or with superimposed pneumonia. Reviewed, dictated and finalized at location A. MILL OPERATOR IMPRESSION: 1. Diffuse lung disease, consistent with pulmonary edema without or with superi mposed pneumonia.
--- NOTE | ~2022-12-26 | XR_ITS ---
EXAMINATION: XR chest port-a-cath/central DATE: 12/26/2022 11:32 INDICATION: Central line placement. TECHNIQUE: A single frontal view of the chest was obtained. COMPARISON: Chest single view at 10:51 AM FINDINGS: There is a diffuse interstitial pattern in the lungs. There are airspace opacities in right mid and lower lung zones and left midlung zone. There is a small right pleural effusion. No pneumoth orax. The heart size is normal. The endotracheal tube tip is 6. Centimeters above the luciano. A left internal jugular central venous catheter is seen with tip in the superior vena cava. A right internal jugular central venous catheter is seen with tip in the proximal right atrium. The nasogastric tube tip is beyond the inferior margin of the radiograph, but at least to the stomach. IMPRESSION: 1. New central line tip in superior vena cava. 2. Stable diffuse lung disease, consistent with pulmonary edema without or with superimposed pneumoni a. 3. Small right pleural effusion. Reviewed, dictated and finalized at location A. L MOLD DRESSER IMPRESSION: 1. New central line tip in superior vena cava. 2. Stable diffuse lung disease, consistent with pulmonary edema without or with superimposed pneumonia. 3. Small right pleural effusion.
--- NOTE | ~2022-12-26 | XR_ITS ---
EXAMINATION: XR chest 1V portable DATE: 01/14/2023 05:33 INDICATION: Respiratory failure. TECHNIQUE: A single frontal view of the chest was obtained. COMPARISON: Chest single view 01/13/2023, chest CT 01/10/2023 FINDINGS: There are airspace opacities in right mid and lower lung zones and left midlung zone. No pl eural effusion or pneumothorax. The heart size is normal. The endotracheal tube tip is 5.9 cm above t he luciano. The nasogastric tube tip is in the stomach. A right internal jugular central venous cathet er is seen with tip in the proximal right atrium. A left internal jugular central venous catheter is seen with tip in the superior vena cava. IMPRESSION: 1. Airspace opacities in right mid and lower lung zones and left midlung zone with worsening in right midlung zone, consistent with pneumonia. Reviewed, dictated and finalized at location A. MACY OPERATIONS SPECIALIST IMPRESSION: 1. Airspace opacities in right mid and lower lung zones and left midlung zone w ith worsening in right midlung zone, consistent with pneumonia.
--- NOTE | ~2022-12-26 | XR_ITS ---
Supine portable view of the abdomen Clinical history: NG tube placed Findings: NG tube is in satisfactory position.. No evidence for obstruction or free air. Small right pleural effusion noted.. Osseous structures are intact. Impression: NG tube in satisfactory position. Right pleural effusion noted. Reviewed, dictated and finalized at [facility]. R MAKER Impression: NG tube in satisfactory position. Right pleural effusion noted.
--- NOTE | ~2022-12-26 | XR_ITS ---
Portable chest x-ray Comparison: 01/01/2023 Clinical History: Tachypnea Findings: Bilateral central venous lines are unchanged. Moderate pulmonary edema pattern is similar to prior exam. No definite pleural effusions. Cardiomediastinal silhouette is stable. Bones and soft tissues are unremarkable. Impression: Stable moderate pulmonary edema pattern. Stable support lines. Reviewed, dictated and finalized at [facility]. TUNER Impression: Stable moderate pulmonary edema pattern. Stable support lines.
--- NOTE | ~2022-12-26 | XR_ITS ---
Portable chest x-ray Comparison: 01/09/2023 Clinical History: Tube placement Findings: Endotracheal tube, NG tube, and bilateral central venous lines are in satisfactory positio ns. There is complete white out of the right hemithorax. Left lung is clear. Cardiomediastinal silho uette is stable. Bones and soft tissues are unremarkable. Impression: Support tubes, as above. White out of the right hemithorax. This is probably a combination of complete right lung atelectasis as well as underlying right effusion. Left lung clear. Reviewed, dictated and finalized at location M. MAN Impression: Support tubes, as above. White out of the right hemithorax. This is probably a combination of complete r ight lung atelectasis as well as underlying right effusion. Left lung clear.
--- NOTE | ~2022-12-26 | XR_ITS ---
Portable chest x-ray Comparison: 01/09/2023 Clinical History: Respiratory failure Findings: Bilateral central venous lines are unchanged. There is complete white out of the right hem ithorax. Left lung is clear. Cardiomediastinal silhouette is stable. Bones and soft tissues are unre markable. Impression: Stable support tubes. Complete white out of the right hemithorax, likely combination of atelectasis and effusion. Left lung clear. Reviewed, dictated and finalized at location M. RAIT CONSULTANT Impression: Stable support tubes. Complete white out of the right hemithorax, likely combination of atelectasis a nd effusion. Left lung clear.
--- NOTE | ~2022-12-26 | XR_ITS ---
XR chest 1V portable DATE: 12/27/2022 06:10 INDICATION: Tube placement TECHNIQUE: Portable AP chest on September 26, 2023 at 0520 hours COMPARISON: December 26, 2022 portable AP chest on 1125 hours FINDINGS: ET tube approximately 6 and is above luciano; ideal range is 2-5 cm. NG tube in stomach. Left internal jugular central venous catheter tip overlies superior vena cava. Dual lumen right internal jugular central venous catheter tip overlies the upper right atrium. Heart size is within normal range. Is aortic calcification. There is mild prominence of minor fissure suggesting subpleural edema. Mild pleural effusions are sug gested. 6 mild pulmonary vascular congestion. There are bilateral central and to a greater extent low er lung infiltrates and/atelectasis. Increased infiltrate in the left mid and lower lung zones since December 26, 2022. IMPRESSION: Congestive changes, bilateral infiltrates, increased on the left since December 26, 2022 Reviewed, dictated and finalized at location A. RWAY TRAFFIC CHECKER IMPRESSION: Congestive changes, bilateral infiltrates, increased on the left si nce December 26, 2022
--- NOTE | ~2022-12-26 | XR_ITS ---
Portable chest x-ray Comparison: 01/05/2023 Clinical History: Respiratory failure Findings: Endotracheal tube, NG tube, and bilateral central venous lines are unchanged. Small to mod erate right pleural effusion is present with right basilar consolidation. Left lung demonstrates mini mal perihilar haziness. Cardiomediastinal silhouette is stable. Bones and soft tissues are unremarka ble. Impression: [id number] right pleural effusion, with right basilar consolidation. Correlate for atelectasis versus pneumonia. Minimal nonspecific left perihilar haziness. Support tubes, as above. Reviewed, dictated and finalized at [facility]. EQUIPMENT INSPECTOR Impression: [id number] right pleural effusion, with right basilar consolidation. Cor relate for atelectasis versus pneumonia. Minimal nonspecific left perihilar haziness. Support tubes, as above.
--- NOTE | ~2022-12-26 | XR_ITS ---
XR chest 1V portable DATE: 01/07/2023 06:01 INDICATION: Respiratory failure TECHNIQUE: Portable upright AP chest on January 07, 2023 0524 hours COMPARISON: January 06, 2020 portable AP chest at 0502 hours FINDINGS: Right internal jugular central venous catheter tip overlies right atrium. Left internal jugular centr al venous catheter tip overlies superior vena cava. ET and NG tubes in satisfactory position. Bilateral hyperinflation. There is pulmonary vascular congestion and redistribution, prominence of mi nor fissure suggesting subpleural edema. Small right pleural effusion. There is right lower lobe infiltrate and/atelectasis. There are bilateral central pulmonary infiltrat es suggesting pulmonary edema. No pneumothorax. Aortic calcification. Heart size appears within normal range. Diffuse osteopenia. IMPRESSION: Persistent right lower lobe infiltrate and/atelectasis; diminished right pleural effusion since January 06, 2023 Interval bilateral central pulmonary infiltrates suggesting pulmonary edema Reviewed, dictated and finalized at location A. RTISING SALES EXECUTIVE
--- NOTE | ~2022-12-26 | XR_ITS ---
XR chest 1V portable 01/01/2023 06:04 Indication: Respiratory failure Procedure: AP portable chest Comparison: Comparison to multiple prior studies sequentially, with oldest reviewed study dated 12/28. Findings: There is persistent pulmonary edema without significant change. No significant effusion. Le ft IJ and right IJ central venous catheters are stable. No pneumothorax. Cardiomediastinal silhouette is stable. Impression: 1: Stable pulmonary edema. Reviewed, dictated and finalized at location A. AL HEALTH COORDINATOR Impression: 1: Stable pulmonary edema.
--- NOTE | ~2022-12-26 | XR_ITS ---
Supine portable view of the abdomen Clinical history: NG tube placement Findings: NG tube is in satisfactory position. Probable gaseous distention of the stomach. No definit e free air. No abnormal mass lesion or calcification is seen. Osseous structures are intact. There is extensive opacification the visualized right hemithorax. Impression: NG tube in satisfactory position. Extensive opacification the visualized right hemithorax. Findings could reflect large effusion and/or atelectatic change. Reviewed, dictated and finalized at location . MATIC LATHE OPERATOR Impression: NG tube in satisfactory position. Extensive opacification the visualized right hemithorax. Findings could reflect large effusion and/or atelectatic change.
--- NOTE | ~2022-12-26 | XR_ITS ---
EXAMINATION: XR fl guid NG/feed tube insert DATE: 12/26/2022 11:06 INDICATION: Orogastric tube placement. TECHNIQUE: A supine view of the abdomen was obtained. COMPARISON: None. FINDINGS: The lower abdomen is excluded. The nasogastric tube tip is in the stomach. An electronic de vice overlies the abdomen. IMPRESSION: 1. Nasogastric tube tip in the stomach. Reviewed, dictated and finalized at location A. ERICAN INDIAN POLICY SPECIALIST
--- NOTE | ~2022-12-26 | XR_ITS ---
Portable chest x-ray Comparison: 01/11/2023 Clinical History: Respiratory failure Findings: Endotracheal tube, NG tube, and bilateral central venous lines are in place. Small right p leural effusion is present. There is bilateral groundglass pulmonary disease, right worse than left, with sparing of the left lower lobe. Cardiomediastinal silhouette is stable. Bones and soft tissues are unremarkable. Impression: Support tubes, as above. Small right pleural effusion. Bilateral groundglass pulmonary disease, right worse than left, with sparing of the left lower lobe. Correlate for pulmonary edema versus infection. Reviewed, dictated and finalized at [facility]. OR PRINCIPAL ARCHITECT Impression: Support tubes, as above. Small right pleural effusion. Bilateral groundglass pulmonary disease, right worse than left, with sparing of the left lower lobe. Correlate for pulmonary edema versus infection.
--- NOTE | 2022-12-26 10:41 | ECG_ITS ---
Measurements Intervals [place] Rate: 114 P: 64 RI: 160 QRS: 69 QRSD: 98 T: 221 QT: 340 QTc: 469 Interpretive Statements SINUS TACHYCARDIA POSSIBLE LEFT ATRIAL ENLARGEMENT [-0.1mV P-WAVE IN V1/V2] POSSIBLE ANTERIOR MYOCARDIAL INFARCTION , VERSUS POOR R-WAVE PROGRESSION. ABNORMAL ECG COMPARED TO ECG 12/14/2022 14:55:20 ALTERED LIMB LEAD POSITION, NO OTHER DIFFERENCE Electronically Signed On 12-26-2022 12:17:46 NURSERY RN by Chance Landis M.D.
--- NOTE | 2022-12-26 10:46 | ED.GENADULT ---
HPI - General Adult General Chief complaint: Shortness of Breath/Dyspnea Stated complaint: RESP DISTRESS Time Seen by Provider: 12/26/22 10:40 History of Present Illness HPI narrative: 57-year-old male with history of diabetes, CHF, end-stage renal disease on dialysis, extensive decubitus ulcers, hypertension presented to the emergency department for evaluation of altered mental status. Patient was found to have altered mental status and hypoxia on evaluation this morning. Patient was saturating in the 70s when EMS arrived. Patient was placed on 15 L by nasal cannula and had worsening mental status upon arrival to the emergency room. Upon arrival to the ED patient had no gag reflex and was unresponsive so he was emergently intubated. Related Data Home Medications Medication Instructions Recorded Confirmed vitamin B complex-vitamin C-folic 1 tablet PO DAILY 07/23/20 12/26/22 acid 0.8 mg tablet (Dang-Nilsa) ticagrelor 60 mg tablet (Brilinta) 60 mg PO DAILY 06/23/22 12/26/22 albuterol sulfate 90 mcg/actuation 1 puff inhalation Q6H PRN 07/09/22 12/26/22 aerosol inhaler Shortness Of Breath aspirin 81 mg tablet 81 mg PO DAILY 07/09/22 12/26/22 cholecalciferol (vitamin D3) 25 25 mcg PO DAILY 07/09/22 12/26/22 mcg (1,000 unit) tablet (Vitamin D3) magnesium hydroxide 400 mg/5 mL 30 ml PO HS PRN Constipation 07/28/22 12/26/22 oral suspension (Milk of Magnesia) cyanocobalamin (vitamin B-12) 1,000 mcg PO DAILY 08/25/22 12/26/22 1,000 mcg capsule vitamin B complex 1 cap PO DAILY 08/25/22 12/26/22 Adults Multivitamin 1 tab-cap PO DAILY 09/28/22 12/26/22 ascorbic acid (vitamin C) 500 mg 500 mg PO DAILY 09/28/22 12/26/22 chewable tablet calcitriol 0.25 mcg capsule 1.25 mcg PO QMWF 11/25/22 12/26/22 cinacalcet 90 mg tablet 90 mg PO QMWF 11/25/22 12/26/22 daptomycin 500 mg intravenous 600 mg IV QMWF 11/25/22 12/26/22 solution ertapenem 1 gram solution for 1 g IV QMWF 11/25/22 12/26/22 injection insulin glargine 100 unit/mL 10 unit subcut Q12H 11/25/22 12/26/22 subcutaneous solution (Lantus U-100 Insulin) lisinopril 10 mg tablet 10 mg PO DAILY 11/25/22 12/26/22 Allergies Allergy/AdvReac Type Severity Reaction Status Date / Time scopolamine Allergy Severe Unresponsiv Verified 12/26/22 10:41 e Review of Systems Review of Systems: ROS unobtainable: Yes unobtainable due to mental status [facility] Past Medical History Medical History (Updated 12/26/22 @ 18:59 by Jesse Martinez MD) Anemia Anxiety Benign prostatic hyperplasia Bradycardic cardiac arrest (07/23/20) In the setting of severe hyperkalemia, acute pulmonary edema, and respiratory failure Chronic anemia Chronic kidney failure Congestive heart failure Echo 03/06/2021 1. Complete two-dimensional, color flow and Doppler transthoracic echocardiogram is performed. 2. Left ventricular chamber dimension is mildly enlarged. 3. Left ventricular systolic function is mildly reduced, estimated at 55-60%. 4. There is severely increased left ventricular wall thickness. Speckled appearance of the myocardium. 5. The left ventricular diastolic function is grade I diastolic dysfunction. 6. Left atrial chamber dimension is mildly enlarged. 7. There is moderate aortic valve sclerosis. 8. The mitral valve annulus is severely calcified. 9. There is mild mitral valve regurgitation. 10. The mitral valve has thickened leaflets. 11. There is mild tricuspid valve regurgitation. 12. There is mild pulmonic regurgitation. Coronary artery disease With non STEMI in December 2019, with stent placed to the LAD. 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 Pacheco in June 2020. Gastroesophageal reflux disease Guillain-[place] Hypertension Noncompliance Pneumonia Pulmonary edema Renal osteodystrop
[2022-12-26 10:47] LABS: Glucose Point of Care 199 mg/dl (65-105)
[2022-12-26 10:49] LABS: Basophils Absolute Auto 0.1 K/mm3 (0.0-0.1); Basophils Percent Auto 0.5 % (0.2-1.2); Eosinophils Absolute Auto 0.1 K/mm3 (0-0.3); Hemoglobin 8.8 g/dL (14.0-18.0); Immature Granulocyte Absolute 0.13 K/mm3 (0.00-0.031); Lymphocytes Absolute Auto 0.87 K/mm3 (0.9-3.2); Lymphocytes Percent Auto 6.6 % (18.3-44.2); Mean Corpuscular HGB Conc 30.3 g/dl (32-36); Mean Corpuscular Hemoglobin 29.4 pg (26-34); Mean Platelet Volume 9.1 fl (7.4-10.4); Monocytes Absolute Auto 0.6 K/mm3 (0.1-0.6); Monocytes Percent Auto 4.4 % (2.6-8.5); Neutrophils Absolute Auto 11.5 K/mm3 (1.3-6.7); Neutrophils Percent Auto 86.5 % (45.5-73.1); Platelet Count Result 687 k/mm3 (150-375); Red Blood Count 2.99 M/mm3 (4.6-6.20); Red Cell Distribution Width 17.8 % (11.5-14.5); White Blood Count 13.3 K/mm3 (4.5-10.0)
[2022-12-26 11:01] LABS: INR 1.2; Prothrombin Time 14.9 Seconds (11.1-14.7)
[2022-12-26 11:05] LABS: Alanine Aminotransferase 14 U/L (6-50); Albumin Level 3.2 g/dL (3.5-5.1); Alkaline Phosphatase 120 U/L (38-126); Anion Gap 5 mmol/L (8-16); Aspartate Amino Transferase 24 U/L (17-59); Bilirubin,Total 0.5 mg/dL (0.2-1.3); Blood Urea Nitrogen 52 mg/dL (9-20); Calcium 7.6 mg/dL (8.4-10.2); Carbon Dioxide 25 mmol/L (22-30); Chloride 96 mmol/L (98-107); Estimated Glomerular Filt Rate 16; Glucose 188 mg/dL (65-110); Potassium 8.8 mmol/L (3.4-5.0); Sodium 126 mmol/L (137-145)
[2022-12-26 11:25] LABS: Influenza A QL RT-PCR Negative (Negative); Influenza B QL RT-PCR Negative (Negative); RSV RNA, RT-PCR Negative (Negative); SARS-CoV-2 RNA PCR Negative
[2022-12-26] MEDS: ALBUTEROL SULFATE NEB 2.5 MG/3 ML INH 10 MG INHALATION (11:40)
--- NOTE | 2022-12-26 11:44 | PC.NURSE ---
ok to use central line per erp dr jung
[2022-12-26] MEDS: SODIUM CHLORIDE 0.9% IV 1,000 ML 999 ML IV CONT (11:46)
[2022-12-26] MEDS: NOREPINEPHRINE 8 MG/D5W 250 ML 8 MG/250 ML BAG 9.38 MG IV CONT (11:50)
[2022-12-26] MEDS: CALCIUM GLUCONATE 1,000 MG/10 ML VIAL 1000 MG IV PUSH (11:56)
[2022-12-26] MEDS: INSULIN HUMAN REGULAR (*BKC) 100 UNITS/ML IV PUSH (11:56)
[2022-12-26] MEDS: DEXTROSE 50% 25 GM/50 ML SYRINGE IV PUSH (11:56)
[2022-12-26 11:58] LABS: Alveolar/Arterial O2 Gradient 336.7 mmHg; Fractional Inspired Oxygen 100 %; HCO3 ABG 21.5 mEq/l (22.0-26.0); Oxygen Content ABG 12.1 %vol (16.0-22.0); Oxygen Saturation ABG 99.7 % (95.0-100.0); PCO2 ABG 41.4 mmHg (35.0-45.0); PO2 ABG 334.9 mmHg (80.0-100.0); PO2 FiO2 Ratio Arterial Blood 3.35 %; Total Hemoglobin 8.1 g/dL (12.0-18.0); pH ABG 7.334 (7.350-7.450)
[2022-12-26] MEDS: MIDAZOLAM HCL (*CRX) 2 MG/2 ML VIAL (11:58)
[2022-12-26 11:59] LABS: Site Drawn RIGHT BRACHIAL
[2022-12-26 12:00] LABS: Arterial Blood Gas PEEP 8 cmH2O; Arterial Blood Gas Vent Mode CMV; Arterial Blood Gas Ventilator rate 20 /MIN; Device VENTILATOR
[2022-12-26 12:01] LABS: Arterial Blood Gas Pressure Support 0 cmH2O; Arterial Blood Gas Tidal Volume 450 ml
[2022-12-26] MEDS: PROPOFOL IV EMULSION 100 ML 1.56 MG IV CONT (12:07)
[2022-12-26] MEDS: SODIUM BICARBONATE 8.4% 50 MEQ/50 ML SYRINGE IV PUSH (12:24)
--- NOTE | 2022-12-26 12:28 | PC.NURSE ---
pt intubated by EDP dr Martinez at 1037 am with 7 1/2 and 25 at the lip, good color change, chest rise and fall. Drugs given during intubation Ethomidate 20mg at 1034 and succinylcholine 100mcg given at 1035.
[2022-12-26 12:56] LABS: Troponin I 0.058 ng/mL (0.000-0.034)
[2022-12-26 14:16] LABS: Lactic Acid Reflex 1.3 mmol/L (0.7-2.0)
[2022-12-26 14:18] LABS: Anion Gap 4 mmol/L (8-16); Blood Urea Nitrogen 51 mg/dL (9-20); Calcium 7.4 mg/dL (8.4-10.2); Carbon Dioxide 26 mmol/L (22-30); Chloride 98 mmol/L (98-107); Estimated Glomerular Filt Rate 16; Glucose 187 mg/dL (65-110); Potassium 5.5 mmol/L (3.4-5.0); Sodium 128 mmol/L (137-145)
--- NOTE | 2022-12-26 14:55 | PC.NURSE ---
Pt will be transferred to [facility] [id number], accepting dr Kumar.
--- NOTE | 2022-12-26 15:25 | PM.IMHP ---
H&P: HPI History of Present Illness Date/Time: 12/26/22 15:25 Chief Complaint: Shortness of breath Narrative: This is a 57-year-old male patient who resides at longterm facility he has a history of end-stage renal disease on dialysis Monday, congestive heart failure extensive decubitus ulcers, diabetes and congestive heart failure. The patient came to the emergency room to be evaluated for altered mental status. They found him to be saturating 70% via EMS. Patient was placed on a 15 L nasal cannula and upon arrival to the emergency room the patient was found to have no gag reflex and was unresponsive so he was emergently intubated. A central line was also placed in the left IJ via ED. his initial potassium was 8.8 since he missed dialysis today. The patient was treated with 5 units of IV insulin, 25 g of glucose, bicarb and calcium gluconate with the continuous neb treatment. The case was discussed with Nephrology. Initially the patient was accepted to [facility]. However the patient was able to receive dialysis here. The case was discussed with Dr. Amin who agreed that the patient can stay here if he is going to receive dialysis. Head CT was read as no acute intracranial process. Chest x-ray was read as the following. New central line tip in superior vena cava. 2. Stable diffuse lung disease, consistent with pulmonary edema without or with superimposed pneumonia. 3. Small right pleural effusion. The patient was placed on a Levophed drip and started on Flagyl vancomycin, and cefepime. His white count 13.3 H&H is 8.829.0. ABGs pH 7.334 bicarb 41.4. His potassium came down to 5.5 from 8.8. Troponin 0.058 and now 0.211. The patient was negative for influenza A/B and COVID as well as RSV. The patient is being admitted to inpatient icu on the date of service of 12/26/2022. Review of Systems Review of Systems: See HPI All systems reviewed & are unremarkable except as noted in HPI and below Constitutional: Constitutional: Reports as per HPI and Reports no additional constitutional complaints Eyes: Eyes: Reports as per HPI and Reports no additional eye complaints ENT: Reports system reviewed and no additional complaints, except as documented and Reports Normal hearing present Cardiovascular: Cardiovascular: Reports no additional cardiovascular complaints Respiratory: Respiratory: Reports no additional respiratory complaints and Reports no additional respiratory complaints Gastrointestinal: Gastrointestinal: Reports as per HPI and Reports no additional gastrointestinal complaints Musculoskeletal: Musculoskeletal: Reports no additional musculoskeletal complaints Integumentary/Breasts: Skin/Breast: Reports system reviewed and no additional complaints, except as docu and Reports as per HPI Neurologic: Reports system reviewed and no additional complaints, except as documented, Reports as per HPI and Reports Normal hearing present Psychiatric: Psychiatric: Reports no additional psychiatric complaints and Reports as per HPI Endocrine: Endocrine: Reports no additional endocrine complaints Hematologic/Lymphatic: Hematologic/Lymphatic: Reports no additional hematologic/lymphatic complaints Allergic/Immunologic: Allergic/Immunologic: Reports no additional allergic/immunologic complaints PMFSH Past Medical History Medical History Anemia Anxiety Benign prostatic hyperplasia Bradycardic cardiac arrest (07/23/20) In the setting of severe hyperkalemia, acute pulmonary edema, and respiratory failure Chronic anemia Chronic kidney failure Congestive heart failure Echo 03/06/2021 1. Complete two-dimensional, color flow and Doppler transthoracic echocardiogram is performed. 2. Left ventricular chamber dimension is mildly enlarged. 3. Left ventricular systolic function is mildly reduced, estimated at 55-60%. 4. There is severely increased left ventricular wall
[2022-12-26 15:48] LABS: Troponin I 0.211 ng/mL (0.000-0.034)
--- NOTE | 2022-12-26 16:13 | PM.CNNEP ---
Assessment and Plan Assessment and plan (1) End stage renal disease: Code(s): N18.6 - End stage renal disease Status: Chronic Assessment and Plan: short HD today and continue M/W/F dialysis schedule follow electrolytes, volume status, and clearance may need another HD treatment tomorrow depending on volume status and K+ (2) Acute respiratory failure: Code(s): J96.00 - Acute respiratory failure, unspecified whether with hypoxia or hypercapnia Status: Acute Assessment and Plan: unresponsive and inability to protect airway on arrival to ER so intubated unclear what precipitated hypoxia fluid overload? cardiac event? infection? currently intubated and on mechanical ventilation (3) Hyperkalemia: Code(s): E87.5 - Hyperkalemia Status: Acute Assessment and Plan: quite elevated on presentation favorable response to medical managment HD today and possibly tomorrow to keep this controlled etiology?? -- dietary indiscretion?? (did receive full HD treatment on 12/23/22) follow trend (4) Altered mental status: Code(s): R41.82 - Altered mental status, unspecified Status: Acute Assessment and Plan: due to hypoxia versus something else? head CT negative follow mentation (5) Anemia: Code(s): D64.9 - Anemia, unspecified Status: Chronic Assessment and Plan: due to ESRD and possible acute illness Epogen with HD follow trend of H/H (6) Decubitus ulcers: Code(s): L89.90 - Pressure ulcer of unspecified site, unspecified stage Status: Chronic Assessment and Plan: local wound care consult wound care nurse (7) Diabetes: Qualifiers: Diabetes mellitus complication detail: with other circulatory complications Diabetes mellitus complication status: with circulatory complication Diabetes mellitus type: type 1 Qualified Code(s): E10.59 - Type 1 diabetes mellitus with other circulatory complications Code(s): E11.9 - Type 2 diabetes mellitus without complications Status: Chronic Assessment and Plan: follow accuchecks glycemic control Will continue to follow. History of Present Illness Reason for Consult Consult date: 12/26/22 Reason for consult: end stage renal disease and hyperkalemia Chief Complaint Chief complaint: Respiratory Failure/Altered Mental Status/Hyperkal History of Present Illness Narrative: The patient is a 57-year-old male with extensive past medical history as outlined below who presented to [facility] Emergency room from his nursing facility for further evaluation of alerted mental status. All of the information I have obtained is from review of the electronic medical record as well as discussion with the ER physician and nurses involved in the patient's care as the patient is unable to provide me with any history as he is currently intubated and on mechanical ventilation. Apparently, nursing staff at the facility where he resides noted that the patient seemed to be more confused and less responsive in association with hypoxia earlier this morning. The specifics and details with regard to what they witnessed is not entirely clear to me. However, because of these issues, EMS was called for further assessment. By the time of their arrival, he was reportedly 70% on room air and that placed 15 L of oxygen by nasal cannula to help with his severe hypoxia. Apparently, he remained confused despite the supplemental oxygen and by the time of his arrival to the emergency room, he was completely unresponsive and had no gag reflex or ability to protect his airway. He was subsequently emergently intubated and placed on mechanical ventilation. Routine blood work was consistent with his known history of end-stage renal disease but he had multiple abnormalities including severe hyperkalemia, mild hypocalcemia, and anemia. His lactic acid was with
--- NOTE | 2022-12-26 16:13 | P.CONNP_ITS ---
Assessment and Plan Assessment and plan (1) End stage renal disease: Code(s): N18.6 - End stage renal disease Status: Chronic Assessment and Plan: * short HD today and continue M// dialysis schedule * follow electrolytes, volume status, and clearance * may need another HD treatment tomorrow depending on volume status and K+ (2) Acute respiratory failure: Code(s): J96.00 - Acute respiratory failure, unspecified whether with hypoxia or hypercapnia Status: Acute Assessment and Plan: * unresponsive and inability to protect airway on arrival to ER so intubated * unclear what precipitated hypoxia * fluid overload? * cardiac event? * infection? * currently intubated and on mechanical ventilation (3) Hyperkalemia: Code(s): E87.5 - Hyperkalemia Status: Acute Assessment and Plan: * quite elevated on presentation * favorable response to medical managment * HD today and possibly tomorrow to keep this controlled * etiology?? -- dietary indiscretion?? (did receive full HD treatment on 12/23/22) * follow trend (4) Altered mental status: Code(s): R41.82 - Altered mental status, unspecified Status: Acute Assessment and Plan: * due to hypoxia versus something else? * head CT negative * follow mentation (5) Anemia: Code(s): D64.9 - Anemia, unspecified Status: Chronic Assessment and Plan: * due to ESRD and possible acute illness * Epogen with HD * follow trend of H/H (6) Decubitus ulcers: Code(s): L89.90 - Pressure ulcer of unspecified site, unspecified stage Status: Chronic Assessment and Plan: * local wound care * consult wound care nurse (7) Diabetes: Qualifiers: Diabetes mellitus complication detail: with other circulatory complications Diabetes mellitus complication status: with circulatory complication Diabetes mellitus type: type 1 Qualified Code(s): E10.59 - Type 1 diabetes mellitus with other circulatory complications Code(s): E11.9 - Type 2 diabetes mellitus without complications Status: Chronic Assessment and Plan: * follow accuchecks * glycemic control Will continue to follow. History of Present Illness Reason for Consult Consult date: 12/26/22 Reason for consult: end stage renal disease and hyperkalemia Chief Complaint Chief complaint: Respiratory Failure/Altered Mental Status/Hyperkal History of Present Illness Narrative: The patient is a 57-year-old male with extensive past medical history as outlined below who presented to [facility] Emergency room from his nursing facility for further evaluation of alerted mental status. All of the information I have obtained is from review of the electronic medical record as well as discussion with the ER physician and nurses involved in the patient's care as the patient is unable to provide me with any history as he is currently intubated and on mechanical ventilation. Apparently, nursing staff at the facility where he resides noted that the pa sue seemed to be more confused and less responsive in association with hypoxia earlier this morning. The specifics and details with regard to what they witnessed is not entirely clear to me. However, because of these issues, EMS was called for further assessment. By the time of their arrival, he was reportedly 70% on room air and that placed 15 L of oxygen by nasal cannula to help with his severe hypoxia. Apparently, he remained confused despite the supplemental oxyg
--- NOTE | 2022-12-26 17:34 | ADMGEN ---
This patient, Ish Corley, was admitted to Intensive Care Unit-1 at 1724. Patient/family oriented to hospital policies and general routines including ID bracelet, bed and alarms, visiting hours, pain management, procedures, bathroom and other care routines, personal items, smoking policy, room service/diet, and visiting hours. Information on how to activate the Rapid Response Team has been discussed. Patient/Family are encouraged to report perceived risks to care and to ask questions if they do not understand what they are told or what they should do.
[2022-12-26] MEDS: NOREPINEPHRINE 8 MG/D5W 250 ML 8 MG/250 ML BAG 3.75 MG IV CONT (19:30)
[2022-12-26] MEDS: PROPOFOL IV EMULSION 100 ML 15 MG IV CONT (19:30)
[2022-12-26] MEDS: EPOETIN ALFA-EPBX 10,000 UNITS/ML VIAL 10000 UNITS IV PUSH (20:35)
[2022-12-26] MEDS: metroNIDAZOLE 500 MG/ISO 100ML 500 MG/100 ML BAG 100 MG IVPB (20:36)
[2022-12-26] MEDS: CENTRAL LINE FLUSH 10 ML IV PUSH (20:37)
--- NOTE | 2022-12-26 20:50 | ECG_ITS ---
Measurements Intervals [place] Rate: 141 P: [place]: 0 QRS: 75 QRSD: 81 T: -60 QT: 277 QTc: 424 Interpretive Statements SINUS TACHYCARDIA NONSPECIFIC ST & T-WAVE ABNORMALITY COMPARED TO ECG 12/26/2022 10:50:17 HEART RATE IS FASTER NOW Electronically Signed On 12-27-2022 16:16:23 [employer] by Jann Ash M.D.
--- NOTE | 2022-12-26 20:51 | PC.NURSE ---
Pts oxygen saturation dropped into the 80s. Respiratory called to bedside and bagging patient. Physician Erik Villarreal called to bedside. PTs BP low dialysis stopped, sedation on hold and levo increased. Order for CBC, CMP, EKG, Troponin, and ABG per physician Erik Villarreal.
--- NOTE | 2022-12-26 20:52 | PC.NURSE ---
Pressures improved per Dr. Rocha hold levo at this time.
[2022-12-26 21:02] LABS: Glucose Point of Care 225 mg/dl (65-105)
[2022-12-26 21:07] LABS: Alveolar/Arterial O2 Gradient 584.6 mmHg; Base Excess ABG 1.4 mEq/l (+/-2.0); Fractional Inspired Oxygen 100 %; HCO3 ABG 25.7 mEq/l (22.0-26.0); Hematocrit 25.4 % (42.0-52.0); Hemoglobin 7.7 g/dL (14.0-18.0); Mean Corpuscular HGB Conc 30.3 g/dl (32-36); Mean Corpuscular Hemoglobin 28.5 pg (26-34); Mean Corpuscular Volume 94.1 fl (80-100); Mean Platelet Volume 9.2 fl (7.4-10.4); Oxygen Content ABG 12.2 %vol (16.0-22.0); Oxyhemoglobin 95.2 % THb (90.0-100.0); PCO2 ABG 39.4 mmHg (35.0-45.0); PO2 FiO2 Ratio Arterial Blood 0.89 %; Platelet Count Result 620 k/mm3 (150-375); Red Cell Distribution Width 17.6 % (11.5-14.5); White Blood Count 6.9 K/mm3 (4.5-10.0); pH ABG 7.433 (7.350-7.450)
[2022-12-26 21:09] LABS: Arterial Blood Gas PEEP 5 cmH2O; Arterial Blood Gas Vent Mode CMV; Arterial Blood Gas Ventilator rate 20 /MIN; Device VENTILATOR; Site Drawn LEFT BRACHIAL
[2022-12-26 21:10] LABS: Arterial Blood Gas Tidal Volume 450 ml
--- NOTE | 2022-12-26 21:35 | PM.EVENT ---
Event Note Event Note Event Note: 12/26/22 2100 ICU called providers is stated that the patient was going to code. His heart rate dropped down in the 60s and his blood pressure dropped as well. By time we came to ICU the patient's heart rate was in the 130s and 140s. His blood pressure had jumped up to 90/30 and then increase even higher. The 140s. His Levophed was held. The patient also had become hypoxic and had to be manually bagged via his ET tube. The patient had just finished up his dialysis. Labs and EKG ordered. Initially the patient was going to receive albumin but his blood pressure kevin once the Levophed was stopped. His heart rate of starting to go down now as well. Patient or any has a central line and is intubated and on a ventilator. The patient is a full code.
[2022-12-26 21:43] LABS: Alanine Aminotransferase 14 U/L (6-50); Albumin Level 2.7 g/dL (3.5-5.1); Alkaline Phosphatase 129 U/L (38-126); Anion Gap 11 mmol/L (8-16); Aspartate Amino Transferase 30 U/L (17-59); Bilirubin,Total 0.5 mg/dL (0.2-1.3); Blood Urea Nitrogen 21 mg/dL (9-20); Calcium 7.5 mg/dL (8.4-10.2); Carbon Dioxide 25 mmol/L (22-30); Chloride 98 mmol/L (98-107); Estimated Glomerular Filt Rate 39; Glucose 255 mg/dL (65-110); Potassium 3.4 mmol/L (3.4-5.0); Sodium 134 mmol/L (137-145); Troponin I 0.419 ng/mL (0.000-0.034)
[2022-12-26 21:47] LABS: D Dimer 4.66 ug/mL (<0.48)
[2022-12-26 22:11] LABS: Hepatitis B Surface Antigen Negative (Negative)
[2022-12-26 22:16] LABS: Hepatitis B Core IgM Result Negative (Negative)
[2022-12-26 23:10] LABS: Hepatitis B Surface Anti Res Positive
[2022-12-27] VITALS (60 sets, daily range): BP systolic 73–147; BP diastolic 54–80; PULSE 85–117; RESP 16–24; TEMP 0–37.6; O2SAT 96–100; BMI 32.2
--- NOTE | 2022-12-27 | ECHO_ITS ---
Patient Info Name: Ish Corley Age: 57 years : 1965 Gender: Male Ht: 48 in Wt: 106 lbs BSA: 1.31 m2 HR: 95 bpm BP: 115 / 66 mmHg Heart Rhythm: Sinus Rhythm Technical Quality: Fair Exam Date: 12/27/2022 7:55 AM Exam Location: [facility] Patient Status: Inpatient Admit Date: 12/26/2022 Staff Ordering Physician: Mary Lou Davila NP Graduating Machine Operator: Jaqueline Ackerman RDCS Attending Provider: Chance Gutierrez MD Referring Physician: Giovanni PABON; Exam Type: CA echo doppler color flow Study Info Indications - CHF Complete two-dimensional, color flow and Doppler transthoracic echocardiogram is performed. Summary 1. Complete two-dimensional, color flow and Doppler transthoracic echocardiogram is performed. 2. Left ventricular chamber dimension is normal. 3. There is moderately increased left ventricular wall thickness. 4. Left ventricular systolic function is moderately reduced, estimated at 30-35%. 5. The anterior wall and anteroseptal wall are hypokinetic. 6. The left ventricular diastolic function is grade I diastolic dysfunction. 7. Right ventricular systolic function is normal. 8. Left atrial chamber dimension is mildly enlarged. 9. There is moderate aortic valve calcification. 10. There is mild to moderate aortic valve stenosis with a peak velocity of 195 cm/s, mean gradient of 8 mmHg, and aortic valve area of 1.1 cm2. 11. The mitral valve has thickened leaflets. 12. The mitral valve annulus is severely calcified. 13. There is mild mitral valve regurgitation. 14. There is mild tricuspid valve regurgitation. 15. Dilated inferior vena cava with no collapse upon inspiration consistent with elevated right atrial pressure, 15 mmHg. 16. Large left pleural effusion. Left Ventricle The anterior wall and anteroseptal wall are hypokinetic. Left ventricular chamber dimension is normal. Left ventricular systolic function is moderately reduced, estimated at 30-35%. There is moderately increased left ventricular wall thickness. The left ventricular diastolic function is grade I diastolic dysfunction. Right Ventricle Right ventricular chamber dimension is normal. Right ventricular systolic function is normal. Left Atria Left atrial chamber dimension is mildly enlarged. Right Atria Right atrial chamber dimension is normal. Atrial Septum Intact interatrial septum visualized by color flow imaging. Aortic Valve The aortic valve is trileaflet. There is mild to moderate aortic valve stenosis with a peak velocity of 195 cm/s, mean gradient of 8 mmHg, and aortic valve area of 1.1 cm2. There is no aortic valve regurgitation. There is moderate aortic valve calcification. Pulmonic Valve The pulmonic valve is not well visualized. Mitral Valve The mitral valve has thickened leaflets. There is mild mitral valve regurgitation. The mitral valve annulus is severely calcified. Tricuspid Valve The tricuspid valve leaflets are normal. There is mild tricuspid valve regurgitation. Pericardium/Pleural Large left pleural effusion. There is no pericardial effusion. Inferior Vena Cava Dilated inferior vena cava with no collapse upon inspiration consistent with elevated right atrial pressure, 15 mmHg. Aorta The aortic root size at the sinus of Valsalva is normal. Left Ventricular Outflow Tract Name Value Normal ---------
[2022-12-27] MEDS: CENTRAL LINE FLUSH 10 ML IV PUSH ×5 (00:29→20:41)
[2022-12-27 00:44] LABS: Glucose Point of Care 256 mg/dl (65-105)
[2022-12-27] MEDS: INSULIN ASPART (*BKC) 100 UNITS/ML SUB-Q ×5 (00:46→16:51)
[2022-12-27 05:03] LABS: Basophils Percent Auto 0.3 % (0.2-1.2); Eosinophils Percent Auto 0.2 % (0-4.4); Hematocrit 21.9 % (42.0-52.0); Immature Granulocyte Absolute 0.09 K/mm3 (0.00-0.031); Immature Granulocyte Percent A 0.8 % (0-0.5); Lymphocytes Absolute Auto 0.95 K/mm3 (0.9-3.2); Lymphocytes Percent Auto 8.3 % (18.3-44.2); Mean Corpuscular HGB Conc 30.6 g/dl (32-36); Mean Corpuscular Volume 94.8 fl (80-100); Monocytes Absolute Auto 0.7 K/mm3 (0.1-0.6); Monocytes Percent Auto 6.1 % (2.6-8.5); Neutrophils Absolute Auto 9.6 K/mm3 (1.3-6.7); Neutrophils Percent Auto 84.3 % (45.5-73.1); Platelet Count Result 498 k/mm3 (150-375); Red Blood Count 2.31 M/mm3 (4.6-6.20); Red Cell Distribution Width 17.9 % (11.5-14.5); White Blood Count 11.4 K/mm3 (4.5-10.0)
[2022-12-27 05:04] LABS: Hemoglobin 6.7 g/dL (14.0-18.0)
[2022-12-27 05:15] LABS: Alanine Aminotransferase 12 U/L (6-50); Albumin Level 2.5 g/dL (3.5-5.1); Alkaline Phosphatase 108 U/L (38-126); Anion Gap 10 mmol/L (8-16); Aspartate Amino Transferase 23 U/L (17-59); Bilirubin,Total 0.5 mg/dL (0.2-1.3); Blood Urea Nitrogen 26 mg/dL (9-20); Calcium 7.2 mg/dL (8.4-10.2); Carbon Dioxide 24 mmol/L (22-30); Chloride 99 mmol/L (98-107); Estimated Glomerular Filt Rate 27; Glucose 212 mg/dL (65-110); Magnesium 1.9 mg/dL (1.6-2.3); Phosphorus 4.2 mg/dL (2.5-4.5); Potassium 3.9 mmol/L (3.4-5.0); Sodium 133 mmol/L (137-145)
[2022-12-27 06:17] LABS: Fractional Inspired Oxygen 30 %; HCO3 ABG 21.4 mEq/l (22.0-26.0); Methemoglobin ABG 0.2 %THb (0-1.5); Oxygen Content ABG 11.6 %vol (16.0-22.0); Oxygen Saturation ABG 96.2 % (95.0-100.0); Oxyhemoglobin 93.8 % THb (90.0-100.0); PCO2 ABG 27.6 mmHg (35.0-45.0); PO2 ABG 73.5 mmHg (80.0-100.0); PO2 FiO2 Ratio Arterial Blood 2.45 %; Site Drawn LEFT BRACHIAL; Total Hemoglobin 8.7 g/dL (12.0-18.0); pH ABG 7.508 (7.350-7.450)
[2022-12-27 06:18] LABS: Arterial Blood Gas PEEP 5 cmH2O; Arterial Blood Gas Tidal Volume 450 ml; Arterial Blood Gas Vent Mode CMV; Arterial Blood Gas Ventilator rate 20 /MIN; Device VENTILATOR
[2022-12-27] MEDS: TICAGRELOR 60 MG TABLET PO (09:14)
[2022-12-27] MEDS: ATORVASTATIN 40 MG TABLET 80 MG PO (09:14)
[2022-12-27 09:30] LABS: Ammonia < 9 umol/L (9-30)
[2022-12-27 09:39] LABS: Glucose Point of Care 248 mg/dl (65-105)
--- NOTE | 2022-12-27 11:18 | WPDCNINT ---
Assessment and Plan Assessment and plan (1) Respiratory failure: Code(s): J96.90 - Respiratory failure, unspecified, unspecified whether with hypoxia or hypercapnia Status: Acute Assessment and Plan: Acute Respiratory failure secondary to volume overload pulmonary edema and the encephalopathy Also possibility of pneumonia Chest x-ray reviewed - IMPRESSION: Congestive changes, bilateral infiltrates, increased on the left since December 26, 2022? ABG reviewed Continue full mechanical ventilation support to prevent hypoxemia/hypercarbia and end organ damage. Will plan to remove additional fluid with hemodialysis before attempting weaning Ventilator settings reviewed (2) Encephalopathy: Code(s): G93.40 - Encephalopathy, unspecified Status: Acute Assessment and Plan: Patient presented with altered mental status which appear to be acute as patient was alert oriented at the care home. Likely toxic metabolic encephalopathy. Hypercarbia could also be a possibility as ABG done initially was after intubation Head CT was negative Ammonia level was normal Patient now following commands on holding sedation. Monitor (3) Hypotension: Code(s): I95.9 - Hypotension, unspecified Status: Acute Assessment and Plan: Patient became hypertensive post intubation could be secondary to combination of positive pressure ventilation sedation and sepsis Lactic acid level was normal. Patient not a candidate for IV fluids due to volume overload Levophed has been weaned off at this time Monitor (4) Hyperkalemia: Code(s): E87.5 - Hyperkalemia Status: Acute Assessment and Plan: Initially treated with medications in the ED Patient received dialysis later in the ICU Potassium Level improved Plan for another hemodialysis session today (5) End stage renal disease: Code(s): N18.6 - End stage renal disease Status: Chronic Assessment and Plan: Discussed with nephrology Requested another hemodialysis session today (6) Pulmonary edema: Code(s): J81.1 - Chronic pulmonary edema Status: Acute Assessment and Plan: Remove fluid with dialysis (7) Sepsis: Code(s): A41.9 - Sepsis, unspecified organism Status: Acute Assessment and Plan: His lactic acid level was normal but he has chest x-ray suggestive infiltrates which is likely pulmonary edema but could be an ammonia Also has a sacral decubitus wound Patient on daptomycin and ertapenem IV with hemodialysis in outpatient-not sure the reason but I anticipated is likely secondary to his decubitus wound. Currently on vanc and cefepime that was started in ED Will try to obtain records from [facility] Blood sputum culture and MRSA screen has been sent Wound was evaluated by wound care (8) Decubitus ulcer of sacral area: Code(s): L89.159 - Pressure ulcer of sacral region, unspecified stage Status: Chronic Assessment and Plan: Wound care consulted (9) IDDM (insulin dependent diabetes mellitus): Status: Chronic Assessment and Plan: Sliding scale insulin Start Nepro tube feeds (10) Anemia: Code(s): D64.9 - Anemia, unspecified Status: Acute Assessment and Plan: Patient has multifactorial anemia Hemoglobin dropped to 6.7 today No signs of active bleeding Patient on IV iron and EPO Transfuse 1 unit PRBC IV PPI Continue aspirin and Brilinta. Continue Monitoring Plan DVT prophylaxis -hold anticoagulation due to significant anemia. Patient not a candidate for SCDs bed because of bilateral AKAs Stress ulcer prophylaxis -PPI Nutrition -start Tube Feeds Code Status - Full Code Case discussed with Dr. Martino from Nephrology Total Critical Care Time - 45 minutes Due to a high probability of clinically significant, life threatening deterioration, the patient required my highest level of preparedness to intervene emergently and I personally sp
[2022-12-27] MEDS: PROPOFOL IV EMULSION 100 ML 6.24 MG IV CONT (12:47)
[2022-12-27 12:54] LABS: Glucose Point of Care 220 mg/dl (65-105)
--- NOTE | 2022-12-27 12:58 | P.PNNP_ITS ---
Progress Note: A&P Assessment and Plan (1) End stage renal disease: Code(s): N18.6 - End stage renal disease Status: Chronic Assessment and Plan: * HD tomorrow and continue M/W/ dialysis schedule * follow electrolytes, volume status, and clearance (2) Acute respiratory failure: Code(s): J96.00 - Acute respiratory failure, unspecified whether with hypoxia or hypercapnia Status: Acute Assessment and Plan: * unresponsive and inability to protect airway on arrival to ER so intubated * unclear what precipitated hypoxia but suspect multifactorial: * fluid overload * cardiac event(?) * infection? * currently intubated and on mechanical ventilation * plan DUF today to facilitate further fluid removal (3) Hyperkalemia: Code(s): E87.5 - Hyperkalemia Status: Acute Assessment and Plan: * resolved * quite elevated on presentation * favorable response to medical managment * HD yesterday * etiology?? -- dietary indiscretion?? * did receive full HD treatment on 12/23/22 (outpatient) * short HD treatment on 12/26/22 * follow trend (4) Altered mental status: Code(s): R41.82 - Altered mental status, unspecified Status: Acute Assessment and Plan: * due to hypoxia versus something else? * head CT negative * follow mentation when extubated (5) Anemia: Code(s): D64.9 - Anemia, unspecified Status: Chronic Assessment and Plan: * due to ESRD and possible acute illness * Epogen with HD * drop in H/H by AM labs * PRBC transfusion per protocol * follow trend of H/H (6) Decubitus ulcers: Code(s): L89.90 - Pressure ulcer of unspecified site, unspecified stage Status: Chronic Assessment and Plan: * local wound care * consult wound care nurse (7) Diabetes: Qualifiers: Diabetes mellitus complication detail: with other circulatory complications Diabetes mellitus complication status: with circulatory complication Diabetes mellitus type: type 1 Qualified Code(s): E10.59 - Type 1 diabetes mellitus with other circulatory complications Code(s): E11.9 - Type 2 diabetes mellitus without complications Status: Chronic Assessment and Plan: * follow accuchecks * glycemic control Will continue to follow. Subjective Date/time seen: 12/27/22 12:58 Tolerating dry ultrafiltration at the time of my visit (seen on DUF on 12:50PM); had short HD treatment yesterday (treatment ended early due to fluctuating hemodynamics and bradycardia); remains intubated/sedated at the time of my visi t; stable hemodynamics at this time. Exam Narrative: General: ill appearing male intubated and on mechanical ventilation Heart: normal S1 and S2; no rub Lungs: coarse and decreased breath sounds at bases Abdomen: soft, nontender, nondistended, positive bowel sounds Extremities: no cyanosis or clubbing; left AKA and right BKA Skin: wound dressings noted Objective Data Vital Signs Vital Signs: Vital Signs Temp Pulse Resp BP Pulse Ox O2 Del Method FiO2 12/27/22 12:32 98.3 F 93 16 104/64 100 12/27/22 12:50 94 98/65 L 12/27/22 12:47 94 16 12/27/22 11:10 94 16 12/27/22 11:54 99 100 Mechanical Ventilation 30 12/27/22 11:32 98.2 F 96 18 105/62 100
--- NOTE | 2022-12-27 12:58 | PM.PNNEP ---
Progress Note: A&P Assessment and Plan (1) End stage renal disease: Code(s): N18.6 - End stage renal disease Status: Chronic Assessment and Plan: HD tomorrow and continue M/W/F dialysis schedule follow electrolytes, volume status, and clearance (2) Acute respiratory failure: Code(s): J96.00 - Acute respiratory failure, unspecified whether with hypoxia or hypercapnia Status: Acute Assessment and Plan: unresponsive and inability to protect airway on arrival to ER so intubated unclear what precipitated hypoxia but suspect multifactorial: fluid overload cardiac event(?) infection? currently intubated and on mechanical ventilation plan DUF today to facilitate further fluid removal (3) Hyperkalemia: Code(s): E87.5 - Hyperkalemia Status: Acute Assessment and Plan: resolved quite elevated on presentation favorable response to medical managment HD yesterday etiology?? -- dietary indiscretion?? did receive full HD treatment on 12/23/22 (outpatient) short HD treatment on 12/26/22 follow trend (4) Altered mental status: Code(s): R41.82 - Altered mental status, unspecified Status: Acute Assessment and Plan: due to hypoxia versus something else? head CT negative follow mentation when extubated (5) Anemia: Code(s): D64.9 - Anemia, unspecified Status: Chronic Assessment and Plan: due to ESRD and possible acute illness Epogen with HD drop in H/H by AM labs PRBC transfusion per protocol follow trend of H/H (6) Decubitus ulcers: Code(s): L89.90 - Pressure ulcer of unspecified site, unspecified stage Status: Chronic Assessment and Plan: local wound care consult wound care nurse (7) Diabetes: Qualifiers: Diabetes mellitus complication detail: with other circulatory complications Diabetes mellitus complication status: with circulatory complication Diabetes mellitus type: type 1 Qualified Code(s): E10.59 - Type 1 diabetes mellitus with other circulatory complications Code(s): E11.9 - Type 2 diabetes mellitus without complications Status: Chronic Assessment and Plan: follow accuchecks glycemic control Will continue to follow. Subjective Date/time seen: 12/27/22 12:58 Tolerating dry ultrafiltration at the time of my visit (seen on DUF on 12:50PM); had short HD treatment yesterday (treatment ended early due to fluctuating hemodynamics and bradycardia); remains intubated/sedated at the time of my visit; stable hemodynamics at this time. Exam Narrative: General: ill appearing male intubated and on mechanical ventilation Heart: normal S1 and S2; no rub Lungs: coarse and decreased breath sounds at bases Abdomen: soft, nontender, nondistended, positive bowel sounds Extremities: no cyanosis or clubbing; left AKA and right BKA Skin: wound dressings noted Objective Data Vital Signs Vital Signs: Vital Signs Temp Pulse Resp BP Pulse Ox O2 Del Method FiO2 12/27/22 12:32 98.3 F 93 16 104/64 100 12/27/22 12:50 94 98/65 L 12/27/22 12:47 94 16 12/27/22 11:10 94 16 12/27/22 11:54 99 100 Mechanical Ventilation 12/27/22 11:32 98.2 F 96 18 105/62 100 12/27/22 11:09 114 H 22 H 12/27/22 08:00 100 Mechanical Ventilation 12/27/22 10:00 100 12/27/22 08:00 100 12/27/22 10:00 98.2 F 100 18 100/59 L 98 12/27/22 08:00 98.4 F 96 20 105/80 100 12/27/22 10:32 98.4 F 104 H 16 94/63 L 100 12/27/22 10:12 98.3 F 103 H 20 101/68 98 12/27/22 08:55 94 100 Mechanical Ventilation 12/27/22 07:53 97 119/65 12/27/22 07:53 97 20 12/27/22 06:00 96 105/64 12/26/22 19:30 116 H 76/56 L 12/26/22 19:30 116 H 20 12/26/22 19:30 116 H 20 12/27/22 06:00 95 12/27/22 06:00 99.
--- NOTE | 2022-12-27 14:05 | PM.CNCAR ---
Assessment and Plan Assessment and plan (1) Anemia: Code(s): D64.9 - Anemia, unspecified Status: Acute (2) Pulmonary edema: Code(s): J81.1 - Chronic pulmonary edema Status: Acute (3) Hypotension: Code(s): I95.9 - Hypotension, unspecified Status: Acute (4) Respiratory failure: Code(s): J96.90 - Respiratory failure, unspecified, unspecified whether with hypoxia or hypercapnia Status: Acute (5) Altered mental status: Code(s): R41.82 - Altered mental status, unspecified Status: Acute (6) Hyperkalemia: Code(s): E87.5 - Hyperkalemia Status: Acute (7) End stage renal disease: Code(s): N18.6 - End stage renal disease Status: Chronic (8) Diabetes mellitus with hyperglycemia: Code(s): E11.65 - Type 2 diabetes mellitus with hyperglycemia Status: Acute (9) Peripheral vascular disease: Code(s): I73.9 - Peripheral vascular disease, unspecified Status: Acute (10) Cardiomyopathy: Code(s): I42.9 - Cardiomyopathy, unspecified Status: Acute (11) Coronary artery disease: Qualifiers: Coronary Disease-Associated Artery/Lesion type: [place] artery [place] vs. transplanted heart: [place] heart Associated angina: without angina Qualified Code(s): I25.10 - Atherosclerotic heart disease of [place] coronary artery without angina pectoris Code(s): I25.10 - Atherosclerotic heart disease of [place] coronary artery without angina pectoris Status: Acute (12) Elevated troponin: Code(s): R77.8 - Other specified abnormalities of plasma proteins Status: Acute Plan Patient has chronically elevated troponins and are within baseline level. No ischemic changes noted on EKGs. No evidence of ACS at that time. An echo has been ordered, will follow up on results. History of Present Illness History of Present Illness Consult date/time: 12/27/22 14:05 Requesting physician: Jesse Martinez MD Consult reason: Other (Elevated troponin) Reason For Visit: Respiratory Failure/Altered Mental Status/Hyperkal Narrative: We are consulted for elevated troponin. This is a 57-year-old male with a history of ESRD on HD, CAD s/p stent to the LAD and previous abrupt stent thrombosis resulting in anterior infarction with repeat LAD intervention, history of noncompliance, chronic heart failure with preserved ejection fraction, hypertension, diabetes, tobacco use. All of history is obtained from the chart as patient is intubated. Patient presented to [facility] from his nursing facility for further evaluation of altered mental status. Patient noted to be confused and hypoxic at custodial. EMS called, was noted to be satting 70% on room air. Patient was completely unresponsive and had no gag reflex or ability to protect his airway when he arrived to the ER. He was emergently intubated and placed on mechanical ventilation. CT head negative for acute findings. Had severe hyperkalemia with K of 8.8. Treated medically initially as there was no dialysis nurse available to do emergent dialysis. Potassium improved with aggressive medical management. Patient's initial troponin was 0.058, with repeat at 0.211 and then 0.419. He is known to have chronically elevated troponins. EKG on presentation with sinus tachycardia, LAE, no ischemic changes. Overnight, there was concern that patient was going to code. His heart rate dropped down to the 60s, and he became hypotensive. Per the SOFTWARE SYSTEMS ANALYST, his levophed was increased. He then became tachycardic, which improved once the Levo was weaned down. Patient is currently getting dialysis afternoon. Hypotensive with dialysis so on Levo. Review of Systems Review of Systems: ROS unobtainable: Yes unobtainable due to endotracheal tube and unobtainable due to medical condition PMFSH Past Medical History Medical History Anemia Anxiety Be
[2022-12-27] MEDS: SOD HYPOCHLORITE 1/4 STRENGTH 473 ML 1 APPLIC TOPICAL ×2 (16:51→20:38)
[2022-12-27] MEDS: EPOETIN ALFA-EPBX 20,000 UNITS/ML VIAL 20000 UNITS IV PUSH (16:52)
[2022-12-27] MEDS: TOLNAFTATE 1% POWDER 45 GM BTL 1 APPLIC TOPICAL ×2 (16:52→20:38)
[2022-12-27 17:01] LABS: Glucose Point of Care 220 mg/dl (65-105)
[2022-12-27 18:27] LABS: Vancomycin Random 11.5 ug/mL (10-20)
[2022-12-27 20:41] LABS: Glucose Point of Care 200 mg/dl (65-105)
[2022-12-27] MEDS: PROPOFOL IV EMULSION 100 ML 9.36 MG IV CONT (23:25)
[2022-12-27 23:35] LABS: Glucose Point of Care 311 mg/dl (65-105)
[2022-12-28] VITALS (34 sets, daily range): BP systolic 92–143; BP diastolic 53–85; PULSE 86–117; RESP 12–26; TEMP 36–37.4; O2SAT 92–100
[2022-12-28] MEDS: INSULIN ASPART (*BKC) 100 UNITS/ML SUB-Q ×3 (00:07→08:35)
[2022-12-28] MEDS: CENTRAL LINE FLUSH 10 ML IV PUSH ×4 (05:42→20:29)
[2022-12-28 05:44] LABS: Hemoglobin 8.8 g/dL (14.0-18.0); Mean Corpuscular HGB Conc 31.4 g/dl (32-36); Mean Corpuscular Hemoglobin 29.3 pg (26-34); Mean Corpuscular Volume 93.3 fl (80-100); Mean Platelet Volume 9.3 fl (7.4-10.4); Platelet Count Result 606 k/mm3 (150-375); Red Cell Distribution Width 17.6 % (11.5-14.5); White Blood Count 13.3 K/mm3 (4.5-10.0)
[2022-12-28 05:55] LABS: Alanine Aminotransferase 11 U/L (6-50); Albumin Level 2.8 g/dL (3.5-5.1); Alkaline Phosphatase 130 U/L (38-126); Anion Gap 12 mmol/L (8-16); Aspartate Amino Transferase 25 U/L (17-59); Bilirubin,Total 0.5 mg/dL (0.2-1.3); Blood Urea Nitrogen 37 mg/dL (9-20); Calcium 7.5 mg/dL (8.4-10.2); Carbon Dioxide 24 mmol/L (22-30); Chloride 97 mmol/L (98-107); Estimated Glomerular Filt Rate 22; Glucose 335 mg/dL (65-110); Magnesium 2.1 mg/dL (1.6-2.3); Potassium 3.9 mmol/L (3.4-5.0); Sodium 133 mmol/L (137-145)
[2022-12-28] MEDS: INSULIN GLARGINE (*BKC) 100 UNITS/ML 20 UNITS SUB-Q (08:35)
[2022-12-28] MEDS: PANTOPRAZOLE SODIUM IV 40 MG VIAL IV PUSH (08:38)
[2022-12-28] MEDS: ATORVASTATIN 40 MG TABLET 80 MG PO (08:39)
[2022-12-28] MEDS: TICAGRELOR 60 MG TABLET PO (08:39)
[2022-12-28] MEDS: ASPIRIN 325 MG TABLET FEED TUBE (08:39)
--- NOTE | 2022-12-28 08:42 | P.CDI_ITS ---
CDI Query Clarified Diagnosis Clarified Diagnosis: Documented history of CHF. CHF noted on the assessment and plan. Chest xray from 12/26/22 notes pulmonary edema. Please specify type and acuity of heart failure if known. * Acute * Chronic * Acute on Chronic * Unknown * Systolic * Diastolic * Combined Systolic and Diastolic * Unknown
--- NOTE | 2022-12-28 08:42 | WPDCDIQUERY2 ---
CDI Query Clarified Diagnosis Clarified Diagnosis: Documented history of CHF. CHF noted on the assessment and plan. Chest xray from 12/26/22 notes pulmonary edema. Please specify type and acuity of heart failure if known. Acute Chronic Acute on Chronic Unknown Systolic Diastolic Combined Systolic and Diastolic Unknown
[2022-12-28] MEDS: TOLNAFTATE 1% POWDER 45 GM BTL 1 APPLIC TOPICAL (08:56)
[2022-12-28 09:03] LABS: Glucose Point of Care 269 mg/dl (65-105)
--- NOTE | 2022-12-28 09:45 | WPDINTPN ---
Progress Note: A&P Assessment and Plan (1) Respiratory failure: Code(s): J96.90 - Respiratory failure, unspecified, unspecified whether with hypoxia or hypercapnia Status: Acute Assessment and Plan: Acute Respiratory failure secondary to volume overload pulmonary edema and the encephalopathy Also possibility of pneumonia Chest x-ray reviewed -patient still has pulmonary edema but is improved as compared to yesterday ABG reviewed Continue full mechanical ventilation support to prevent hypoxemia/hypercarbia and end organ damage. I will perform a weaning trial this morning to see patient can be extubated Will plan to remove additional fluid today with hemodialysis Ventilator settings reviewed (2) Encephalopathy: Code(s): G93.40 - Encephalopathy, unspecified Status: Acute Assessment and Plan: Patient presented with altered mental status which appear to be acute as [facility] Likely toxic metabolic encephalopathy. Hypercarbia could also be a possibility as ABG done initially was after intubation Head CT was negative Ammonia level was normal Patient now following commands on holding sedation. Monitor (3) Hypotension: Code(s): I95.9 - Hypotension, unspecified Status: Acute Assessment and Plan: Patient became hypotensive post intubation could be secondary to combination of positive pressure ventilation sedation and sepsis Lactic acid level was normal. Patient not a candidate for IV fluids due to volume overload Levophed has been weaned off at this time Monitor (4) Hyperkalemia: Code(s): E87.5 - Hyperkalemia Status: Acute Assessment and Plan: Initially treated with medications in the ED Patient received dialysis later in the ICU Potassium Level improved Plan for another hemodialysis session today (5) End stage renal disease: Code(s): N18.6 - End stage renal disease Status: Chronic Assessment and Plan: Discussed with nephrology Requested another hemodialysis session today (6) Pulmonary edema: Code(s): J81.1 - Chronic pulmonary edema Status: Acute Assessment and Plan: Remove fluid with dialysis (7) Sepsis: Code(s): A41.9 - Sepsis, unspecified organism Status: Acute Assessment and Plan: His lactic acid level was normal but he has chest x-ray suggestive infiltrates which is likely pulmonary edema but could be and pneumonia Also has a sacral decubitus wound Patient on daptomycin and ertapenem IV with hemodialysis in outpatient-not sure the reason but I anticipated is likely secondary to his decubitus wound. Currently on vanc and cefepime that was started in ED Request sent for records from [facility] Blood culture growing Gram-positive cocci in 1/2 bottles Sputum culture and MRSA screen is pending Wound was evaluated by wound care (8) Decubitus ulcer of sacral area: Code(s): L89.159 - Pressure ulcer of sacral region, unspecified stage Status: Chronic Assessment and Plan: Wound care consulted (9) IDDM (insulin dependent diabetes mellitus): Status: Chronic Assessment and Plan: Sliding scale insulin Continue Nepro tube feeds Add Lantus (10) Anemia: Code(s): D64.9 - Anemia, unspecified Status: Acute Assessment and Plan: Patient has multifactorial anemia Hemoglobin dropped to 6.7 today No signs of active bleeding Patient on IV iron and EPO 12/27 Patient was transfused 1 unit PRBC Continue IV PPI Continue aspirin and Brilinta. Continue Monitoring hemoglobin Plan DVT prophylaxis -hold anticoagulation due to significant anemia. Patient not a candidate for SCDs bed because of bilateral AKAs Stress ulcer prophylaxis -PPI Nutrition -On Tube Feeds Code Status - Full Code Case discussed with Dr. Martino from Nephrology Total Critical Care Time - 40 minutes Due to a high probability of clinically significantboo
--- NOTE | 2022-12-28 09:51 | PM.PNCARD ---
Progress Note: A&P Assessment and Plan (1) Elevated troponin: Code(s): R77.8 - Other specified abnormalities of plasma proteins Status: Acute (2) Anemia: Code(s): D64.9 - Anemia, unspecified Status: Acute (3) Respiratory failure: Code(s): J96.90 - Respiratory failure, unspecified, unspecified whether with hypoxia or hypercapnia Status: Acute (4) Hyperkalemia: Code(s): E87.5 - Hyperkalemia Status: Acute (5) End stage renal disease: Code(s): N18.6 - End stage renal disease Status: Chronic (6) Hypertension: Code(s): I10 - Essential (primary) hypertension Status: Acute (7) Sepsis: Code(s): A41.9 - Sepsis, unspecified organism Status: Acute (8) Diabetes mellitus with hyperglycemia: Code(s): E11.65 - Type 2 diabetes mellitus with hyperglycemia Status: Acute (9) Peripheral vascular disease: Code(s): I73.9 - Peripheral vascular disease, unspecified Status: Acute (10) Cardiomyopathy: Code(s): I42.9 - Cardiomyopathy, unspecified Status: Acute Plan Patient has chronically elevated troponins and are within baseline level. No ischemic changes noted on EKGs. No evidence of ACS at this time. Echocardiogram 12/27 showed LVEF 30-35% with hypokinesis of the anterior and anteroseptal wall, mild-moderate , mild MR, mild TR. Previous echo from 02/2021 showed LVEF 55-60%. Once patient is more stable, would recommend starting beta-graciela therapy for GDMT. Given his severe hyperkalemia on presentation (unclear reason for his severe hyperkalemia), would avoid ACEi/ARB/ARNI. Cannot use SGLT 2 inhibitors due to his ESRD. Will consider ischemic evaluation at a later date once patient recovers from acute illnesses. Subjective Date/time seen: 12/28/22 09:51 Interval history: Reason for visit: Elevated troponin HPI: We are consulted for elevated troponin. This is a 57-year-old male with a history of ESRD on HD, CAD s/p stent to the LAD and previous abrupt stent thrombosis resulting in anterior infarction with repeat LAD intervention, history of noncompliance, chronic heart failure with preserved ejection fraction, hypertension, diabetes, tobacco use. All of history is obtained from the chart as patient is intubated. Patient presented to [facility] from his nursing facility for further evaluation of altered mental status. Patient noted to be confused and hypoxic at residential. EMS called, was noted to be satting 70% on room air. Patient was completely unresponsive and had no gag reflex or ability to protect his airway when he arrived to the ER. He was emergently intubated and placed on mechanical ventilation. CT head negative for acute findings. Had severe hyperkalemia with K of 8.8. Treated medically initially as there was no dialysis nurse available to do emergent dialysis. Potassium improved with aggressive medical management. Patient's initial troponin was 0.058, with repeat at 0.211 and then 0.419. He is known to have chronically elevated troponins. EKG on presentation with sinus tachycardia, LAE, no ischemic changes. Overnight, there was concern that patient was going to code. His heart rate dropped down to the 60s, and he became hypotensive. Per the MANAGER OF [employer]ODUCTION, his levophed was increased. He then became tachycardic, which improved once the Levo was weaned down. Patient is currently getting dialysis afternoon. Hypotensive with dialysis so on Levo. Date of service 12/28: Patient remains intubated. Levo on standby. ICU team hoping to extubate today. Blood cultures show gram positive cocci in clusters in 1/2 bottles. Review of Systems Review of Systems: ROS unobtainable: Yes unobtainable due to endotracheal tube and unobtainable due to medical condition Exam Const: Other: Critically ill. Intubated on mechanical ventilation. Eyes: General: appearance normal, both eyes and all related structures Resp: Other: Intubated v
[2022-12-28 09:53] LABS: Alveolar/Arterial O2 Gradient 101.8 mmHg; Base Excess ABG 0.1 mEq/l (+/-2.0); Fractional Inspired Oxygen 30 %; HCO3 ABG 24.5 mEq/l (22.0-26.0); Oxygen Content ABG 13.1 %vol (16.0-22.0); Oxygen Saturation ABG 93.7 % (95.0-100.0); Oxyhemoglobin 90.7 % THb (90.0-100.0); PCO2 ABG 38.6 mmHg (35.0-45.0); PO2 ABG 66.7 mmHg (80.0-100.0); PO2 FiO2 Ratio Arterial Blood 2.22 %; Total Hemoglobin 10.2 g/dL (12.0-18.0)
[2022-12-28 09:55] LABS: Arterial Blood Gas Vent Mode SPONTANEOUS; Device VENTILATOR; Modified Allen's Test Pass; Site Drawn RIGHT RADIAL
[2022-12-28 09:56] LABS: Arterial Blood Gas PEEP 5 cmH2O; Arterial Blood Gas Pressure Support 5 cmH2O
--- NOTE | 2022-12-28 10:36 | PCFNICU ---
ICU Rounding Note: Pt current nutrition is NPO Last recorded weight is 45 kg. Bowel Motility:colostomy Labs Reviewed:Glu 335, GFR 22, Na 133, Alb 2.8 Meds Noted:Novolog, Levophed Skin: Stage IV PU-Left Hip and Sacrum Additional Notes: Patient extubated today. Diet order NPO at this time. When diet order advances recommend a Renal/Diabetic Diet with Diet supplements of Rafal BID and Nepro BID. Following daily in ICU rounds. Will reassess every 3 days.
[2022-12-28 12:30] LABS: Glucose Point of Care 174 mg/dl (65-105)
[2022-12-28] MEDS: SOD HYPOCHLORITE 1/4 STRENGTH 473 ML 1 APPLIC TOPICAL ×2 (15:20→23:19)
[2022-12-28] MEDS: DEXTROSE 50% 25 GM/50 ML SYRINGE IV PUSH (16:20)
[2022-12-28 17:02] LABS: Glucose Point of Care 105 mg/dl (65-105)
[2022-12-28 17:02] LABS: Glucose Point of Care 66 mg/dl (65-105)
--- NOTE | 2022-12-28 17:39 | PM.PNNEP ---
Progress Note: A&P Assessment and Plan (1) End stage renal disease: Code(s): N18.6 - End stage renal disease Status: Chronic Assessment and Plan: HD today and continue M/W/ dialysis schedule follow electrolytes, volume status, and clearance (2) Bacteremia: Code(s): R78.81 - Bacteremia Status: Acute Assessment and Plan: positive blood cultures noted repeat blood cultures pending on antibiotics source -- decubitus ulcers versus tunneled HD catheter versus something else? continue current therapy (3) Acute respiratory failure: Code(s): J96.00 - Acute respiratory failure, unspecified whether with hypoxia or hypercapnia Status: Acute Assessment and Plan: resolved extubated today follow respiratory status (4) Hyperkalemia: Code(s): E87.5 - Hyperkalemia Status: Acute Assessment and Plan: resolved quite elevated on presentation favorable response to medical managment HD yesterday etiology?? -- dietary indiscretion?? follow trend (5) Altered mental status: Code(s): R41.82 - Altered mental status, unspecified Status: Acute Assessment and Plan: appears back to baseline due to hypoxia versus something else? head CT negative (6) Anemia: Code(s): D64.9 - Anemia, unspecified Status: Chronic Assessment and Plan: due to ESRD and possible acute illness Epogen with HD PRBC transfusion per protocol follow trend of H/H (7) Decubitus ulcers: Code(s): L89.90 - Pressure ulcer of unspecified site, unspecified stage Status: Chronic Assessment and Plan: local wound care consult wound care nurse (8) Diabetes: Qualifiers: Diabetes mellitus complication detail: with other circulatory complications Diabetes mellitus complication status: with circulatory complication Diabetes mellitus type: type 1 Qualified Code(s): E10.59 - Type 1 diabetes mellitus with other circulatory complications Code(s): E11.9 - Type 2 diabetes mellitus without complications Status: Chronic Assessment and Plan: follow accuchecks glycemic control Will continue to follow. Subjective Date/time seen: 12/28/22 17:39 Tolerated hemodialysis treatment at the time of my visit (seen on HD at 5:30PM); successfully extubated earlier this morning; tolerated DUF treatment yesterday witohut any issue or problems; no apparent distress noted currently. Exam Narrative: General: ill appearing male in NAD Heart: normal S1 and S2; no rub Lungs: decreased breath sounds at bases Abdomen: soft, nontender, nondistended, positive bowel sounds Extremities: no cyanosis or clubbing; left AKA and right BKA Skin: wound dressings noted Objective Data Vital Signs Vital Signs: Vital Signs Temp Pulse Resp BP Pulse Ox O2 Del Method FiO2 12/28/22 14:00 95 12/28/22 14:00 97.9 F 95 13 125/75 98 12/28/22 12:00 101 H 12/28/22 10:00 117 H 12/28/22 08:00 102 H 12/28/22 12:00 98.6 F 101 H 15 109/66 96 12/28/22 10:00 99 F 117 H 20 126/67 97 12/28/22 08:00 98.7 F 102 H 22 H 92/60 L 95 12/28/22 12:00 98 Room Air 12/28/22 11:22 96 Room Air 12/28/22 10:08 113 H 92 Room Air 12/28/22 08:00 30 12/28/22 10:05 92 Room Air 12/28/22 08:57 107 H 95 Mechanical Ventilation 12/28/22 08:15 105 H 20 12/28/22 06:00 98.3 F 95 20 120/72 98 12/28/22 05:48 96 12/28/22 05:25 102 H 97 Mechanical Ventilation 12/28/22 04:00 98.7 F 96 20 110/69 100 12/28/22 02:00 99.2 F 98 20 102/61 98 12/28/22 04:00 100 Mechanical Ventilation 12/28/22 04:00 30 12/28/22 04:00 96 12/28/22 02:00 98 12/28/22 02:57 102 H 100 Mechanical Ventilation 12/28/22 00:00 98 Mechanical Ventilati
--- NOTE | 2022-12-28 17:39 | P.PNNP_ITS ---
Progress Note: A&P Assessment and Plan (1) End stage renal disease: Code(s): N18.6 - End stage renal disease Status: Chronic Assessment and Plan: * HD today and continue // dialysis schedule * follow electrolytes, volume status, and clearance (2) Bacteremia: Code(s): R78.81 - Bacteremia Status: Acute Assessment and Plan: * positive blood cultures noted * repeat blood cultures pending * on antibiotics * source -- decubitus ulcers versus tunneled HD catheter versus something else? * continue current therapy (3) Acute respiratory failure: Code(s): J96.00 - Acute respiratory failure, unspecified whether with hypoxia or hypercapnia Status: Acute Assessment and Plan: * resolved * extubated today * follow respiratory status (4) Hyperkalemia: Code(s): E87.5 - Hyperkalemia Status: Acute Assessment and Plan: * resolved * quite elevated on presentation * favorable response to medical managment * HD yesterday * etiology?? -- dietary indiscretion?? * follow trend (5) Altered mental status: Code(s): R41.82 - Altered mental status, unspecified Status: Acute Assessment and Plan: * appears back to baseline * due to hypoxia versus something else? * head CT negative (6) Anemia: Code(s): D64.9 - Anemia, unspecified Status: Chronic Assessment and Plan: * due to ESRD and possible acute illness * Epogen with HD * PRBC transfusion per protocol * follow trend of H/H (7) Decubitus ulcers: Code(s): L89.90 - Pressure ulcer of unspecified site, unspecified stage Status: Chronic Assessment and Plan: * local wound care * consult wound care nurse (8) Diabetes: Qualifiers: Diabetes mellitus complication detail: with other circulatory complications Diabetes mellitus complication status: with circulatory complication Diabetes mellitus type: type 1 Qualified Code(s): E10.59 - Type 1 diabetes mellitus with other circulatory complications Code(s): E11.9 - Type 2 diabetes mellitus without complications Status: Chronic Assessment and Plan: * follow accuchecks * glycemic control Will continue to follow. Subjective Date/time seen: 12/28/22 17:39 Tolerated hemodialysis treatment at the time of my visit (seen on HD at 5:30PM); successfully extubated earlier this morning; tolerated DUF treatment yesterday witohut any issue or problems; no apparent distress noted currently. Exam Narrative: General: ill appearing male in NAD Heart: normal S1 and S2; no rub Lungs: decreased breath sounds at bases Abdomen: soft, nontender, nondistended, positive bowel sounds Extremities: no cyanosis or clubbing; left AKA and right BKA Skin: wound dressings noted Objective Data Vital Signs Vital Signs: Vital Signs Temp Pulse Resp BP Pulse Ox O2 Del Method FiO2 12/28/22 14:00 95 12/28/22 14:00 97.9 F 95 13 125/75 98 12/28/22 12:00 101 H 12/28/22 10:00 117 H 12/28/22 08:00 102 H 12/28/22 12:00 98.6 F 101 H 15 109/66 96 12/28/22 10:00 99 F 117 H 20 126/67 97 12/28/22 08:00 98.7 F 102 H 22 H 92/60 L 95 12/28/22 12:00 98 Room Air 12/28/22 11:22 96
[2022-12-28 19:04] LABS: Vancomycin Random 15.5 ug/mL (10-20)
[2022-12-28] MEDS: EPOETIN ALFA-EPBX 10,000 UNITS/ML VIAL 10000 UNITS IV PUSH (19:20)
[2022-12-28] MEDS: CINACALCET 30 MG TABLET 90 MG PO (19:40)
[2022-12-28] MEDS: calcitrioL 0.25 MCG CAPSULE 1.25 MCG PO (19:40)
[2022-12-28 20:29] LABS: Glucose Point of Care 113 mg/dl (65-105)
[2022-12-28] MEDS: LORazepam (*CRX) 0.5 MG TABLET PO (23:39)
[2022-12-28 23:44] LABS: Glucose Point of Care 180 mg/dl (65-105)
[2022-12-29] VITALS (9 sets, daily range): BP systolic 127–160; BP diastolic 60–87; PULSE 94–102; RESP 14–24; TEMP 36.4–36.9; O2SAT 92–97
[2022-12-29 04:16] LABS: Glucose Point of Care 144 mg/dl (65-105)
[2022-12-29] MEDS: CENTRAL LINE FLUSH 10 ML IV PUSH ×4 (04:52→22:00)
[2022-12-29 05:16] LABS: Hematocrit 27.9 % (42.0-52.0); Hemoglobin 8.6 g/dL (14.0-18.0); Mean Corpuscular HGB Conc 30.8 g/dl (32-36); Mean Corpuscular Hemoglobin 29.3 pg (26-34); Mean Corpuscular Volume 94.9 fl (80-100); Mean Platelet Volume 9.2 fl (7.4-10.4); Platelet Count Result 566 k/mm3 (150-375); Red Blood Count 2.94 M/mm3 (4.6-6.20); Red Cell Distribution Width 17.5 % (11.5-14.5); White Blood Count 14.5 K/mm3 (4.5-10.0)
[2022-12-29 05:38] LABS: Alanine Aminotransferase 11 U/L (6-50); Albumin Level 2.6 g/dL (3.5-5.1); Alkaline Phosphatase 110 U/L (38-126); Anion Gap 5 mmol/L (8-16); Aspartate Amino Transferase 25 U/L (17-59); Bilirubin,Total 0.4 mg/dL (0.2-1.3); Blood Urea Nitrogen 22 mg/dL (9-20); Calcium 7.5 mg/dL (8.4-10.2); Carbon Dioxide 30 mmol/L (22-30); Chloride 101 mmol/L (98-107); Estimated Glomerular Filt Rate 37; Glucose 133 mg/dL (65-110); Potassium 3.7 mmol/L (3.4-5.0); Sodium 136 mmol/L (137-145)
[2022-12-29 07:35] LABS: Glucose Point of Care 156 mg/dl (65-105)
[2022-12-29] MEDS: PANTOPRAZOLE SODIUM IV 40 MG VIAL IV PUSH (08:22)
[2022-12-29] MEDS: ASPIRIN 325 MG TABLET FEED TUBE (08:22)
[2022-12-29] MEDS: VITAMIN B CMPLX/VIT C/FOLIC AC 1 CAPSULE 1 CAP PO (08:22)
[2022-12-29] MEDS: TICAGRELOR 60 MG TABLET PO (08:22)
[2022-12-29] MEDS: TOLNAFTATE 1% POWDER 45 GM BTL 1 APPLIC TOPICAL ×2 (08:22→21:00)
[2022-12-29] MEDS: ATORVASTATIN 40 MG TABLET 80 MG PO (08:22)
[2022-12-29] MEDS: INSULIN GLARGINE (*BKC) 100 UNITS/ML 10 UNITS SUB-Q (08:23)
--- NOTE | 2022-12-29 08:55 | WPDINTPN ---
Progress Note: A&P Assessment and Plan (1) Respiratory failure: Code(s): J96.90 - Respiratory failure, unspecified, unspecified whether with hypoxia or hypercapnia Status: Acute Assessment and Plan: Acute Respiratory failure secondary to volume overload pulmonary edema and the encephalopathy Also possibility of pneumonia Patient was extubated after a successful weaning trial on 12/28 chest x-ray reviewed -patient still has pulmonary edema but is improved as compared to yesterday. He is on room air now ABG reviewed Continue hemodialysis to remove fluid Incentive spirometry (2) Sepsis: Code(s): A41.9 - Sepsis, unspecified organism Status: Acute Assessment and Plan: His lactic acid level was normal but he has chest x-ray suggestive infiltrates which is likely pulmonary edema but could be pneumonia although patient denies any respiratory complaints at this time Also has a sacral decubitus wound Patient was on daptomycin and ertapenem IV with hemodialysis in outpatient-not sure the reason but I anticipated is likely secondary to his decubitus wound. Patient is unable to provide that information and he states that it was because of his knee although there is no open wound on the stump. He is growing Gram-positive cocci in blood cultures. Identification is pending. He is currently on vanc and cefepime that was started in ED and will be continued Request sent for records from [facility] I will repeat blood cultures today Echocardiogram done on 12/27 did not show any vegetations. He obviously may need julieth if bacteremia persists Patient is not sure when he received the tunneled dialysis catheter and where it was done. He states it was probably done at [facility] few months ago but I do not see any operative note regarding tunneled dialysis catheter placement going back last year. sputum culture is pending and nasopharyngeal MRSA screen was negative Wound was evaluated by wound care (3) Bacteremia: Code(s): R78.81 - Bacteremia Status: Acute Assessment and Plan: See above (4) Encephalopathy: Code(s): G93.40 - Encephalopathy, unspecified Status: Acute Assessment and Plan: Patient presented with altered mental status which appear to be acute as patient was alert oriented at the group home. Likely toxic metabolic encephalopathy. Hypercarbia could also be a possibility as ABG done initially was after intubation Head CT was negative Ammonia level was normal Patient now AO x3 and following commands on holding sedation. Monitor (5) Hypotension: Code(s): I95.9 - Hypotension, unspecified Status: Acute Assessment and Plan: Patient became hypotensive post intubation could be secondary to combination of positive pressure ventilation sedation and sepsis Lactic acid level was normal. Patient not a candidate for IV fluids due to volume overload Levophed has been weaned off at this time Monitor (6) Hyperkalemia: Code(s): E87.5 - Hyperkalemia Status: Acute Assessment and Plan: Initially treated with medications in the ED Patient received dialysis later in the ICU Potassium Level now improved (7) End stage renal disease: Code(s): N18.6 - End stage renal disease Status: Chronic Assessment and Plan: Discussed with nephrology Hemodialysis per Nephrology (8) Pulmonary edema: Code(s): J81.1 - Chronic pulmonary edema Status: Acute Assessment and Plan: Remove fluid with dialysis (9) Decubitus ulcer of sacral area: Code(s): L89.159 - Pressure ulcer of sacral region, unspecified stage Status: Chronic Assessment and Plan: Wound care evaluated the patient and recommendations for wound care for provided to the nursing staff (10) IDDM (insulin dependent diabetes mellitus): Status: Chronic Assessment and Plan: Sliding scale insulin Continue Nepro tube feeds Resume
--- NOTE | 2022-12-29 10:54 | PCFNICU ---
ICU Rounding Note: Pt current nutrition is DBCC. Nutrition recommendation: Rafal BID and Nepro BID Last recorded weight is 45.6 kg. Bowel Motility:colostomy Labs Reviewed:Glu 133,GFR 37, Na 136, Hct 27.9,Hgb 8.6, BUN 22, Cr 1.3 Meds Noted:Lantus, Protonix, Vancomycin Skin: Stage IV PU-left hip and saccum Additional Notes: Patient extubated. Diet order advanced to DBCC. Oral Intake good 100% of meals. Diet supplements started today of Nepro and Rafal BID for wound healing. Agree with diet orders. Following daily in ICU rounds. Will reassess every 5 days.
[2022-12-29 12:02] LABS: Glucose Point of Care 252 mg/dl (65-105)
[2022-12-29] MEDS: INSULIN ASPART (*BKC) 100 UNITS/ML SUB-Q ×2 (12:03→17:19)
[2022-12-29] MEDS: SOD HYPOCHLORITE 1/4 STRENGTH 473 ML 1 APPLIC TOPICAL ×2 (12:03→16:00)
--- NOTE | 2022-12-29 13:18 | PC.NURSE ---
This patient, Ish Corley, was transferred to [room 244] on 12/29/22 at 1250. Personal belongings sent with patient. Report given to [Jorge HEAD]. Opportunities for questions given. Appropriate documentation sent with patient.
--- NOTE | 2022-12-29 13:59 | PM.PNNEP ---
Progress Note: A&P Assessment and Plan (1) End stage renal disease: Code(s): N18.6 - End stage renal disease Status: Chronic Assessment and Plan: HD tomorrow and continue M/W/ dialysis schedule follow electrolytes, volume status, and clearance (2) Bacteremia: Code(s): R78.81 - Bacteremia Status: Acute Assessment and Plan: positive blood cultures noted repeat blood cultures pending on antibiotics source -- decubitus ulcers versus tunneled HD catheter versus something else? continue current therapy (3) Acute respiratory failure: Code(s): J96.00 - Acute respiratory failure, unspecified whether with hypoxia or hypercapnia Status: Acute Assessment and Plan: resolved extubated (on 12/28/22) follow respiratory status (4) Hyperkalemia: Code(s): E87.5 - Hyperkalemia Status: Acute Assessment and Plan: resolved quite elevated on presentation favorable response to medical managment continues to remain stable with dialytic support etiology?? -- dietary indiscretion?? follow trend (5) Altered mental status: Code(s): R41.82 - Altered mental status, unspecified Status: Acute Assessment and Plan: appears back to baseline due to hypoxia versus something else? head CT negative (6) Anemia: Code(s): D64.9 - Anemia, unspecified Status: Chronic Assessment and Plan: due to ESRD and possible acute illness Epogen with HD PRBC transfusion per protocol follow trend of H/H (7) Decubitus ulcers: Code(s): L89.90 - Pressure ulcer of unspecified site, unspecified stage Status: Chronic Assessment and Plan: local wound care consult wound care nurse (8) Diabetes: Qualifiers: Diabetes mellitus complication detail: with other circulatory complications Diabetes mellitus complication status: with circulatory complication Diabetes mellitus type: type 1 Qualified Code(s): E10.59 - Type 1 diabetes mellitus with other circulatory complications Code(s): E11.9 - Type 2 diabetes mellitus without complications Status: Chronic Assessment and Plan: follow accuchecks glycemic control Will continue to follow. Subjective Date/time seen: 12/29/22 13:59 Transferred out of ICU; tolerated dialysis yesterday evening without any issue or problems; positive blood culture results noted; remains hemodynamically stable at this time; no other acute issues/events overnight or earlier this morning. Exam Narrative: General: ill appearing male in NAD Heart: normal S1 and S2; no rub Lungs: decreased breath sounds at bases Abdomen: soft, nontender, nondistended, positive bowel sounds Extremities: no cyanosis or clubbing; left AKA and right BKA Skin: wound dressings noted Objective Data Vital Signs Vital Signs: Vital Signs Temp Pulse Resp BP Pulse Ox O2 Del Method 12/29/22 12:00 98.1 F 99 20 127/77 96 12/29/22 10:00 99 24 H 137/69 96 12/29/22 10:00 100 12/29/22 08:00 Room Air 12/29/22 08:00 96 12/29/22 07:42 97.8 F 94 18 144/73 H 95 12/29/22 06:00 97.9 F 95 16 160/87 H 92 12/29/22 06:00 95 12/29/22 04:00 97 12/29/22 04:00 Room Air 12/29/22 04:00 98.2 F 100 14 159/80 H 95 12/29/22 02:00 98.4 F 97 20 148/73 H 94 12/29/22 02:00 100 12/29/22 00:00 Room Air 12/29/22 00:00 98 12/29/22 00:00 98.3 F 99 17 137/84 94 12/28/22 20:09 98.5 F 100 24 H 129/79 95 12/28/22 19:54 97 132/82 12/28/22 22:00 99.1 F 100 12 114/53 L 98 12/28/22 22:00 100 12/28/22 20:00 97 12/28/22 20:00 Room Air 12/28/22 20:00 98.5 F 100 16 129/79 95 12/28/22 19:45 97 143/85 H 12/28/22 19:30 96 123/81 12/28/22 19:15 96 130/77 Intake/Output Intake/Output: Intake & Output 12/26/22
--- NOTE | 2022-12-29 13:59 | P.PNNP_ITS ---
Progress Note: A&P Assessment and Plan (1) End stage renal disease: Code(s): N18.6 - End stage renal disease Status: Chronic Assessment and Plan: * HD tomorrow and continue M// dialysis schedule * follow electrolytes, volume status, and clearance (2) Bacteremia: Code(s): R78.81 - Bacteremia Status: Acute Assessment and Plan: * positive blood cultures noted * repeat blood cultures pending * on antibiotics * source -- decubitus ulcers versus tunneled HD catheter versus something else? * continue current therapy (3) Acute respiratory failure: Code(s): J96.00 - Acute respiratory failure, unspecified whether with hypoxia or hypercapnia Status: Acute Assessment and Plan: * resolved * extubated (on 12/28/22) * follow respiratory status (4) Hyperkalemia: Code(s): E87.5 - Hyperkalemia Status: Acute Assessment and Plan: * resolved * quite elevated on presentation * favorable response to medical managment * continues to remain stable with dialytic support * etiology?? -- dietary indiscretion?? * follow trend (5) Altered mental status: Code(s): R41.82 - Altered mental status, unspecified Status: Acute Assessment and Plan: * appears back to baseline * due to hypoxia versus something else? * head CT negative (6) Anemia: Code(s): D64.9 - Anemia, unspecified Status: Chronic Assessment and Plan: * due to ESRD and possible acute illness * Epogen with HD * PRBC transfusion per protocol * follow trend of H/H (7) Decubitus ulcers: Code(s): L89.90 - Pressure ulcer of unspecified site, unspecified stage Status: Chronic Assessment and Plan: * local wound care * consult wound care nurse (8) Diabetes: Qualifiers: Diabetes mellitus complication detail: with other circulatory complications Diabetes mellitus complication status: with circulatory complication Diabetes mellitus type: type 1 Qualified Code(s): E10.59 - Type 1 diabetes mellitus with other circulatory complications Code(s): E11.9 - Type 2 diabetes mellitus without complications Status: Chronic Assessment and Plan: * follow accuchecks * glycemic control Will continue to follow. Subjective Date/time seen: 12/29/22 13:59 Transferred out of ICU; tolerated dialysis yesterday evening without any issue or problems; positive blood culture results noted; remains hemodynamically stable at this time; no other acute issues/events overnight or earlier this mo rning. Exam Narrative: General: ill appearing male in NAD Heart: normal S1 and S2; no rub Lungs: decreased breath sounds at bases Abdomen: soft, nontender, nondistended, positive bowel sounds Extremities: no cyanosis or clubbing; left AKA and right BKA Skin: wound dressings noted Objective Data Vital Signs Vital Signs: Vital Signs Temp Pulse Resp BP Pulse Ox O2 Del Method 12/29/22 12:00 98.1 F 99 20 127/77 96 12/29/22 10:00 99 24 H 137/69 96 12/29/22 10:00 100 12/29/22 08:00 Room Air 12/29/22 08:00 96 12/29/22 07:42 97.8 F 94 18 144/73 H 95 12/29/22 06:00 97.9 F 95 16 160/87 H 92 12/29/22 06:00 95 12/29/22 04:00 97
[2022-12-29 17:16] LABS: Glucose Point of Care 330 mg/dl (65-105)
[2022-12-29] MEDS: METOCLOPRAMIDE HCL INJ 10 MG/2 ML VIAL 5 MG IV PUSH (18:26)
[2022-12-29] MEDS: INSULIN ASPART (*BKC) 100 UNITS/ML 6 UNITS SUB-Q (20:58)
[2022-12-29] MEDS: LORazepam (*CRX) 1 MG TABLET PO (22:06)
[2022-12-30] VITALS (12 sets, daily range): BP systolic 112–188; BP diastolic 55–105; PULSE 92–111; RESP 12–20; TEMP 36–36.9; O2SAT 97–100
[2022-12-30 00:26] LABS: Glucose Point of Care 315 mg/dl (65-105)
[2022-12-30 01:32] LABS: Glucose Point of Care 374 mg/dl (65-105)
[2022-12-30] MEDS: INSULIN ASPART (*BKC) 100 UNITS/ML 8 UNITS SUB-Q (02:34)
[2022-12-30 05:20] LABS: Hematocrit 27.2 % (42.0-52.0); Hemoglobin 8.3 g/dL (14.0-18.0); Mean Corpuscular HGB Conc 30.5 g/dl (32-36); Mean Corpuscular Hemoglobin 29.3 pg (26-34); Mean Corpuscular Volume 96.1 fl (80-100); Mean Platelet Volume 9.1 fl (7.4-10.4); Platelet Count Result 539 k/mm3 (150-375); Red Blood Count 2.83 M/mm3 (4.6-6.20); Red Cell Distribution Width 17.4 % (11.5-14.5); White Blood Count 13.4 K/mm3 (4.5-10.0)
--- NOTE | 2022-12-30 05:22 | PC.NURSE ---
Addendum entered by Jung Chaparro RN 12/30/22 06:24: Patient becoming significantly more confused, spouse has been contacted and has established that nursing staff should maintain colostomy while admitted despite what patient may say otherwise. Colostomy bag will be changed when supplies are delivered from central supply. Original Note: Discussed plan to change ostomy bag this morning when able to get supplies from central. Patient states he wants to call his and have her assist with change using their home supplies today. Ostomy required small reinforcement and is intact at this time.
[2022-12-30] MEDS: CENTRAL LINE FLUSH 10 ML IV PUSH ×4 (05:27→22:03)
[2022-12-30 05:33] LABS: Alanine Aminotransferase 11 U/L (6-50); Albumin Level 2.5 g/dL (3.5-5.1); Alkaline Phosphatase 108 U/L (38-126); Anion Gap 6 mmol/L (8-16); Aspartate Amino Transferase 25 U/L (17-59); Bilirubin,Total 0.4 mg/dL (0.2-1.3); Blood Urea Nitrogen 45 mg/dL (9-20); Calcium 7.9 mg/dL (8.4-10.2); Carbon Dioxide 28 mmol/L (22-30); Chloride 99 mmol/L (98-107); Estimated Glomerular Filt Rate 23; Glucose 318 mg/dL (65-110); Magnesium 1.9 mg/dL (1.6-2.3); Potassium 4.3 mmol/L (3.4-5.0); Sodium 133 mmol/L (137-145)
[2022-12-30 06:49] LABS: Glucose Point of Care 325 mg/dl (65-105)
--- NOTE | 2022-12-30 08:06 | P.PNNP_ITS ---
Progress Note: A&P Assessment and Plan (1) End stage renal disease: Code(s): N18.6 - End stage renal disease Status: Chronic Assessment and Plan: * Hemodialysis later today. Probably early afternoon. * Volume status looks good. Lungs are clear and he has no swelling * potassium is normal today (2) Bacteremia: Code(s): R78.81 - Bacteremia Status: Acute Assessment and Plan: * staph bacteremia on 12/26. * repeat blood cultures No growth to date. * on Vancomycin. He will need this for 6 weeks. * source -- decubitus ulcers versus tunneled HD catheter versus something else? * Catheter was exchanged. * Wounds undergoing dressing changes. * continue current therapy (3) Acute respiratory failure: Code(s): J96.00 - Acute respiratory failure, unspecified whether with hypoxia or hypercapnia Status: Acute Assessment and Plan: * resolved * extubated (on 12/28/22) * E coli in the sputum. He is on cefepime. * follow respiratory status (4) Hyperkalemia: Code(s): E87.5 - Hyperkalemia Status: Acute Assessment and Plan: * resolved * Possibly due to hyper catabolic state versus diet. (5) Altered mental status: Code(s): R41.82 - Altered mental status, unspecified Status: Acute Assessment and Plan: * Back to his normal self. (6) Anemia: Code(s): D64.9 - Anemia, unspecified Status: Chronic Assessment and Plan: * due to ESRD and possible acute illness * Epogen with HD * Hemoglobin 8.3 today. Continue EPO * no need for iron since he has infection (7) Decubitus ulcers: Code(s): L89.90 - Pressure ulcer of unspecified site, unspecified stage Status: Chronic Assessment and Plan: * local wound care * consult wound care nurse * dressing changes twice a day he says (8) Diabetes: Qualifiers: Diabetes mellitus complication detail: with other circulatory complications Diabetes mellitus complication status: with circulatory complication Diabetes mellitus type: type 1 Qualified Code(s): E10.59 - Type 1 diabetes mellitus with other circulatory complications Code(s): E11.9 - Type 2 diabetes mellitus without complications Status: Chronic Assessment and Plan: * on Accu-Cheks and sliding scale insulin per hospitalist Subjective Date/time seen: 12/30/22 08:06 Interval history: Ish feels okay today he is getting his wounds change twice a day. He has a hemo catheter in the right neck and a triple-lumen in the left neck and they both feel okay Exam Narrative: General: ill appearing male in NAD Heart: normal S1 and S2; no rub Lungs: decreased breath sounds at bases Abdomen: bowel sounds positive and soft. Extremities: no cyanosis or clubbing; left AKA and right BKA Skin: no rash Objective Data Vital Signs Vital Signs: Vital Signs - 24 hr 12/29/22 10:00 12/29/22 10:00 12/29/22 12:00 Temperature 98.1 F Pulse Rate 100 99 99 Respiratory Rate 24 H 20 Blood Pressure 137/69 127/77 Pulse Oximetry 96 96 12/29/22 21:57 12/30/22 06:00 Temperature 97.5 F L 98.0 F Pulse Rate 102 H 105 H Respiratory Rate 18 20 Blood Pressure 153/60 H 134/64 Pulse Oximetry 97 99
--- NOTE | 2022-12-30 08:06 | PM.PNNEP ---
Progress Note: A&P Assessment and Plan (1) End stage renal disease: Code(s): N18.6 - End stage renal disease Status: Chronic Assessment and Plan: Hemodialysis later today. Probably early afternoon. Volume status looks good. Lungs are clear and he has no swelling potassium is normal today (2) Bacteremia: Code(s): R78.81 - Bacteremia Status: Acute Assessment and Plan: staph bacteremia on 12/26. repeat blood cultures No growth to date. on Vancomycin. He will need this for 6 weeks. source -- decubitus ulcers versus tunneled HD catheter versus something else? Catheter was exchanged. Wounds undergoing dressing changes. continue current therapy (3) Acute respiratory failure: Code(s): J96.00 - Acute respiratory failure, unspecified whether with hypoxia or hypercapnia Status: Acute Assessment and Plan: resolved extubated (on 12/28/22) E coli in the sputum. He is on cefepime. follow respiratory status (4) Hyperkalemia: Code(s): E87.5 - Hyperkalemia Status: Acute Assessment and Plan: resolved Possibly due to hyper catabolic state versus diet. (5) Altered mental status: Code(s): R41.82 - Altered mental status, unspecified Status: Acute Assessment and Plan: Back to his normal self. (6) Anemia: Code(s): D64.9 - Anemia, unspecified Status: Chronic Assessment and Plan: due to ESRD and possible acute illness Epogen with HD Hemoglobin 8.3 today. Continue EPO no need for iron since he has infection (7) Decubitus ulcers: Code(s): L89.90 - Pressure ulcer of unspecified site, unspecified stage Status: Chronic Assessment and Plan: local wound care consult wound care nurse dressing changes twice a day he says (8) Diabetes: Qualifiers: Diabetes mellitus complication detail: with other circulatory complications Diabetes mellitus complication status: with circulatory complication Diabetes mellitus type: type 1 Qualified Code(s): E10.59 - Type 1 diabetes mellitus with other circulatory complications Code(s): E11.9 - Type 2 diabetes mellitus without complications Status: Chronic Assessment and Plan: on Accu-Cheks and sliding scale insulin per hospitalist Subjective Date/time seen: 12/30/22 08:06 Interval history: Ish feels okay today he is getting his wounds change twice a day. He has a hemo catheter in the right neck and a triple-lumen in the left neck and they both feel okay Exam Narrative: General: ill appearing male in NAD Heart: normal S1 and S2; no rub Lungs: decreased breath sounds at bases Abdomen: bowel sounds positive and soft. Extremities: no cyanosis or clubbing; left AKA and right BKA Skin: no rash Objective Data Vital Signs Vital Signs: Vital Signs - 24 hr 12/29/22 10:00 12/29/22 10:00 12/29/22 12:00 Temperature 98.1 F Pulse Rate 100 99 99 Respiratory Rate 24 H 20 Blood Pressure 137/69 127/77 Pulse Oximetry 96 96 12/29/22 21:57 12/30/22 06:00 Temperature 97.5 F L 98.0 F Pulse Rate 102 H 105 H Respiratory Rate 18 20 Blood Pressure 153/60 H 134/64 Pulse Oximetry 97 99 Intake/Output Intake/Output: Intake & Output 12/27/22 12/28/22 12/29/22 12/30/22 23:59 23:59 23:59 23:59 Intake Total 787 1300 1550 1180 Output Total 4100 2560 250 100 Balance -3313 -1260 1300 1080 Meds/Results Medications: Active Medications Generic Name Dose Route Start Last Admin Trade Name Freq PRN Reason Stop Dose Admin Albuterol 2.5 mg 12/26/22 21:25 Albuterol Sulfate Neb 2.5 Mg/3 Ml Inh INHALATION Q4HRT PRN Shortness Of Breath Aspirin 325 mg 12/28/22 08:00 12/29/22 08:22 Aspirin 325 Mg Tablet FEED TUBE 325 mg DAILY@0800 MARTHA Administration Atorvastatin Calcium 80 mg 12/27/22 09:00 12/29/22 08:22 Atorvastat
[2022-12-30 08:36] LABS: Glucose Point of Care 390 mg/dl (65-105)
[2022-12-30] MEDS: PANTOPRAZOLE SODIUM IV 40 MG VIAL IV PUSH (08:39)
[2022-12-30] MEDS: SOD HYPOCHLORITE 1/4 STRENGTH 473 ML 1 APPLIC TOPICAL ×2 (08:39→22:02)
[2022-12-30] MEDS: ASPIRIN 325 MG TABLET FEED TUBE (08:39)
[2022-12-30] MEDS: TOLNAFTATE 1% POWDER 45 GM BTL 1 APPLIC TOPICAL ×2 (08:39→22:02)
[2022-12-30] MEDS: ATORVASTATIN 40 MG TABLET 80 MG PO (08:39)
[2022-12-30] MEDS: INSULIN ASPART (*BKC) 100 UNITS/ML SUB-Q (08:40)
[2022-12-30] MEDS: VITAMIN B CMPLX/VIT C/FOLIC AC 1 CAPSULE 1 CAP PO (08:40)
[2022-12-30] MEDS: TICAGRELOR 60 MG TABLET PO (08:40)
[2022-12-30] MEDS: INSULIN GLARGINE (*BKC) 100 UNITS/ML 10 UNITS SUB-Q (08:41)
--- NOTE | 2022-12-30 09:18 | PM.PNCARD ---
Progress Note: A&P Assessment and Plan (1) Elevated troponin: Code(s): R77.8 - Other specified abnormalities of plasma proteins Status: Acute (2) Anemia: Code(s): D64.9 - Anemia, unspecified Status: Acute (3) Respiratory failure: Code(s): J96.90 - Respiratory failure, unspecified, unspecified whether with hypoxia or hypercapnia Status: Acute (4) Hyperkalemia: Code(s): E87.5 - Hyperkalemia Status: Acute (5) End stage renal disease: Code(s): N18.6 - End stage renal disease Status: Chronic (6) Hypertension: Code(s): I10 - Essential (primary) hypertension Status: Acute (7) Sepsis: Code(s): A41.9 - Sepsis, unspecified organism Status: Acute (8) Diabetes mellitus with hyperglycemia: Code(s): E11.65 - Type 2 diabetes mellitus with hyperglycemia Status: Acute (9) Peripheral vascular disease: Code(s): I73.9 - Peripheral vascular disease, unspecified Status: Acute (10) Cardiomyopathy: Code(s): I42.9 - Cardiomyopathy, unspecified Status: Acute Plan Patient has chronically elevated troponins and are within baseline level. No ischemic changes noted on EKGs. No evidence of ACS at this time. Echocardiogram 12/27 showed LVEF 30-35% with hypokinesis of the anterior and anteroseptal wall, mild-moderate , mild MR, mild TR. Previous echo from 02/2021 showed LVEF 55-60%. Will initiate beta-graciela therapy for GDMT. Given his severe hyperkalemia on presentation (unclear reason for his severe hyperkalemia), would avoid ACEi/ARB/ARNI. Cannot use SGLT 2 inhibitors due to his ESRD. Can consider ischemic evaluation at a later date once patient recovers from acute illnesses. Subjective Date/time seen: 12/30/22 09:18 Cardiology follow up for elevated troponin, cardiomyopathy He is feeling well today. Denies shortness of breath, chest pain, or palpitations. Exam Const: Other: Alert and oriented, lying comfortably in bed. No distress. Eyes: General: appearance normal, both eyes and all related structures Resp: Effort & Inspection: normal respiratory effort Auscultation: clear to auscultation bilaterally Cardio: Rate: regular rate and tachycardic Rhythm: regular rhythm Heart sounds: no murmurs GI: Inspection: abnormal to inspection and other (colostomy) Neuro: General: patient oriented x3 and moves all extremities Extrem: Other: bilateral AKA Psych: Appearance: grossly normal Mental Status: mental status grossly normal Objective Data Vital Signs Vital Signs: Vital Signs - 24 hr 12/29/22 10:00 12/29/22 10:00 12/29/22 12:00 Temperature 36.7 C Pulse Rate 100 99 99 Respiratory Rate 24 H 20 Blood Pressure 137/69 127/77 Pulse Oximetry 96 96 12/29/22 21:57 12/30/22 06:00 Temperature 36.4 C L 36.7 C Pulse Rate 102 H 105 H Respiratory Rate 18 20 Blood Pressure 153/60 H 134/64 Pulse Oximetry 97 99 Intake/Output Intake/Output: Intake & Output 12/27/22 12/28/22 12/29/22 12/30/22 23:59 23:59 23:59 23:59 Intake Total 787 1300 1550 1180 Output Total 4100 2560 250 100 Balance -3313 -1260 1300 1080 Meds/Results Medications: Active Medications Generic Name Dose Route Start Last Admin Trade Name Freq PRN Reason Stop Dose Admin Albuterol 2.5 mg 12/26/22 21:25 Albuterol Sulfate Neb 2.5 Mg/3 Ml Inh INHALATION Q4HRT PRN Shortness Of Breath Aspirin 325 mg 12/28/22 08:00 12/30/22 08:39 Aspirin 325 Mg Tablet FEED TUBE 325 mg DAILY@0800 [facility] Administration Atorvastatin Calcium 80 mg 12/27/22 09:00 12/30/22 08:39 Atorvastatin 40 Mg Tablet PO 80 mg DAILY MARTHA Administration Calcitriol 1.25 mcg 12/26/22 21:25 12/28/22 19:40 Calcitriol 0.25 Mcg Capsule PO 1.25 mcg MoWeFr@1800 MARTHA Administration Cinacalcet 90 mg 12/26/22 21:25 12/28/22 19:40 Cinacalcet 30 Mg Tablet PO 90 mg MoWeFr@1800 MARTHA Administration Dextros
[2022-12-30 12:12] LABS: Glucose Point of Care 476 mg/dl (65-105)
[2022-12-30] MEDS: INSULIN ASPART (*BKC) 100 UNITS/ML 15 UNITS SUB-Q (12:19)
--- NOTE | 2022-12-30 13:00 | PM.IMPN ---
Progress Note: A&P Assessment and Plan (1) Sepsis: Code(s): A41.9 - Sepsis, unspecified organism Status: Acute (2) ESRD (end stage renal disease): Code(s): N18.6 - End stage renal disease Status: Chronic (3) Diabetes mellitus with hyperglycemia: Code(s): E11.65 - Type 2 diabetes mellitus with hyperglycemia Status: Acute (4) Altered mental status: Code(s): R41.82 - Altered mental status, unspecified Status: Acute (5) Respiratory failure: Code(s): J96.90 - Respiratory failure, unspecified, unspecified whether with hypoxia or hypercapnia Status: Acute Plan (1) Respiratory failure: ?Code(s): J96.90 - Respiratory failure, unspecified, unspecified whether with hypoxia or hypercapnia ?Status:?Acute ?Assessment and Plan: Acute Respiratory failure secondary to volume overload pulmonary edema and the encephalopathy Also possibility of pneumonia Chest x-ray reviewed -patient still has pulmonary edema but is improved as compared to yesterday ABG reviewed Patient was extubated successfully, patient is on nasal cannula (2) Encephalopathy: ?Code(s): G93.40 - Encephalopathy, unspecified ?Status:?Acute ?Assessment and Plan: Patient was confused pOA.? Likely toxic metabolic encephalopathy.? Hypercarbia could also be a possibility Currently patient is a mentally clear Head CT was negative Ammonia level was normal Patient now following commands on holding sedation. Monitor (3) Hypotension: ?Code(s): I95.9 - Hypotension, unspecified ?Status:?Acute ?Assessment and Plan: Resulting from sepsis Levophed has been weaned off at this time Blood pressure stable Monitor (4) Hyperkalemia: ?Code(s): E87.5 - Hyperkalemia ?Status:?Acute ?Assessment and Plan: Initially treated with medications in the ED Patient received dialysis later in the ICU Potassium Level improved Plan for another hemodialysis session today (5) End stage renal disease: ?Code(s): N18.6 - End stage renal disease ?Status:?Chronic ?Assessment and Plan: Discussed with nephrology Requested another hemodialysis session today (6) Pulmonary edema: ?Code(s): J81.1 - Chronic pulmonary edema ?Status:?Acute ?Assessment and Plan: Remove fluid with dialysis (7) Sepsis: ?Code(s): A41.9 - Sepsis, unspecified organism ?Status:?Acute ?Assessment and Plan: His lactic acid level was normal but he has chest x-ray suggestive infiltrates which is likely pulmonary edema but could be and pneumonia Also has a sacral decubitus wound Patient on daptomycin and ertapenem IV with hemodialysis in outpatient-not sure the reason but I anticipated is likely secondary to his decubitus wound.? Currently on vanc and cefepime that was started in ED Blood culture growing Staphylococcus epidermidis and Staphylococcus hominis Sputum culture growing ESBL Wound was evaluated by wound care Change cefepime to ertapenem and IV (8) Decubitus ulcer of sacral area: ?Code(s): L89.159 - Pressure ulcer of sacral region, unspecified stage ?Status:?Chronic ?Assessment and Plan: Wound care consulted (9) IDDM (insulin dependent diabetes mellitus): ?Status:?Chronic ?Assessment and Plan: Sliding scale insulin Continue Nepro tube feeds Add Lantus (10) Anemia: ?Code(s): D64.9 - Anemia, unspecified ?Status:?Acute ?Assessment and Plan: Patient has multifactorial anemia No signs? of active bleeding Patient on IV iron and EPO 12/27 Patient was transfused 1 unit PRBC Continue IV PPI ?Continue aspirin and Brilinta.? Continue Monitoring hemoglobin Subjective Date/time seen: 12/30/22 13:00 Interval history: Saw the patient today. Patient still has short of breath and some cough. Dyspnea is improving. Glucose is not well controlled No new issue events over the night Exam Narrative: General: Pt is alert awake
[2022-12-30] MEDS: METOCLOPRAMIDE HCL INJ 10 MG/2 ML VIAL 5 MG IV PUSH (14:22)
[2022-12-30 14:27] LABS: Glucose Point of Care 435 mg/dl (65-105)
[2022-12-30] MEDS: INSULIN ASPART (*BKC) 100 UNITS/ML 10 UNITS SUB-Q (15:05)
[2022-12-30] MEDS: ERTAPENEM SODIUM 0.5 GM in SODIUM CHLORIDE 0.9% IV 50 ML IVPB (16:58)
[2022-12-30] MEDS: CINACALCET 30 MG TABLET 90 MG PO (17:01)
[2022-12-30] MEDS: calcitrioL 0.25 MCG CAPSULE 1.25 MCG PO (17:01)
[2022-12-30 17:11] LABS: Glucose Point of Care 187 mg/dl (65-105)
[2022-12-30] MEDS: LORazepam (*CRX) 1 MG TABLET PO (18:34)
[2022-12-30 19:00] LABS: Vancomycin Random 20.5 ug/mL (10-20)
[2022-12-30] MEDS: carvediloL 3.125 MG TABLET PO (22:00)
[2022-12-31 03:44] LABS: Glucose Point of Care 202 mg/dl (65-105)
[2022-12-31] MEDS: CENTRAL LINE FLUSH 10 ML IV PUSH ×4 (05:13→20:48)
[2022-12-31 06:00] VITALS: BP 174/76; PULSE 98; RESP 16; TEMP 36.6; O2SAT 96
[2022-12-31 06:29] LABS: Hematocrit 26.5 % (42.0-52.0); Hemoglobin 8.2 g/dL (14.0-18.0); Mean Corpuscular HGB Conc 30.9 g/dl (32-36); Mean Corpuscular Hemoglobin 29.1 pg (26-34); Mean Platelet Volume 9.4 fl (7.4-10.4); Platelet Count Result 524 k/mm3 (150-375); Red Blood Count 2.82 M/mm3 (4.6-6.20); Red Cell Distribution Width 17.2 % (11.5-14.5); White Blood Count 14.9 K/mm3 (4.5-10.0)
[2022-12-31 06:47] LABS: Alanine Aminotransferase 10 U/L (6-50); Albumin Level 2.5 g/dL (3.5-5.1); Alkaline Phosphatase 106 U/L (38-126); Anion Gap 3 mmol/L (8-16); Aspartate Amino Transferase 32 U/L (17-59); Bilirubin,Total 0.4 mg/dL (0.2-1.3); Blood Urea Nitrogen 40 mg/dL (9-20); Calcium 7.9 mg/dL (8.4-10.2); Carbon Dioxide 30 mmol/L (22-30); Chloride 97 mmol/L (98-107); Estimated Glomerular Filt Rate 27; Glucose 304 mg/dL (65-110); Magnesium 1.8 mg/dL (1.6-2.3); Phosphorus 2.7 mg/dL (2.5-4.5); Potassium 4.3 mmol/L (3.4-5.0); Sodium 130 mmol/L (137-145)
[2022-12-31 07:19] LABS: Vancomycin Random 20.8 ug/mL (10-20)
[2022-12-31 08:15] LABS: Glucose Point of Care 347 mg/dl (65-105)
[2022-12-31 08:37] VITALS: PULSE 98
[2022-12-31] MEDS: carvediloL 3.125 MG TABLET PO ×2 (08:37→20:47)
[2022-12-31] MEDS: ASPIRIN 325 MG TABLET FEED TUBE (08:41)
[2022-12-31] MEDS: VITAMIN B CMPLX/VIT C/FOLIC AC 1 CAPSULE 1 CAP PO (08:41)
[2022-12-31] MEDS: ATORVASTATIN 40 MG TABLET 80 MG PO (08:42)
[2022-12-31] MEDS: TICAGRELOR 60 MG TABLET PO (08:42)
[2022-12-31] MEDS: PANTOPRAZOLE SODIUM IV 40 MG VIAL IV PUSH (08:43)
[2022-12-31] MEDS: INSULIN ASPART (*BKC) 100 UNITS/ML SUB-Q ×5 (08:46→17:08)
[2022-12-31] MEDS: INSULIN GLARGINE (*BKC) 100 UNITS/ML 20 UNITS SUB-Q (08:46)
--- NOTE | 2022-12-31 09:26 | P.PNNP_ITS ---
Progress Note: A&P Assessment and Plan (1) End stage renal disease: Code(s): N18.6 - End stage renal disease Status: Chronic Assessment and Plan: * Hemodialysis due on Monday. * He signed off dialysis early yesterday. We discussed at length how he needs to be on treatment the entire duration * Volume status looks good. Lungs are clear and he has no swelling * potassium is normal today * check labs tomorrow. (2) Bacteremia: Code(s): R78.81 - Bacteremia Status: Acute Assessment and Plan: * staph bacteremia on 12/26. * repeat blood cultures No growth to date. * on Vancomycin. He will need this for 6 weeks. * source -- decubitus ulcers versus tunneled HD catheter versus something else? * Catheter was exchanged. * Wounds undergoing dressing changes. * Still on antibiotics. (3) Acute respiratory failure: Code(s): J96.00 - Acute respiratory failure, unspecified whether with hypoxia or hypercapnia Status: Acute Assessment and Plan: * resolved * extubated (on 12/28/22) * E coli in the sputum. He is on cefepime. * No cough or shortness of breath currently. * follow respiratory status (4) Hyperkalemia: Code(s): E87.5 - Hyperkalemia Status: Acute Assessment and Plan: * resolved * Possibly due to hyper catabolic state versus diet. (5) Altered mental status: Code(s): R41.82 - Altered mental status, unspecified Status: Acute Assessment and Plan: * Back to his normal self. (6) Anemia: Code(s): D64.9 - Anemia, unspecified Status: Chronic Assessment and Plan: * due to ESRD and possible acute illness * Epogen with HD * Hemoglobin stable at 8.2. * no need for iron since he has infection (7) Decubitus ulcers: Code(s): L89.90 - Pressure ulcer of unspecified site, unspecified stage Status: Chronic Assessment and Plan: * local wound care * wound care nurse following * dressing changes twice a day he says (8) Diabetes: Qualifiers: Diabetes mellitus complication detail: with other circulatory complications Diabetes mellitus complication status: with circulatory complication Diabetes mellitus type: type 1 Qualified Code(s): E10.59 - Type 1 diabetes mellitus with other circulatory complications Code(s): E11.9 - Type 2 diabetes mellitus without complications Status: Chronic Assessment and Plan: * on Accu-Cheks and sliding scale insulin per hospitalist Subjective Date/time seen: 12/31/22 09:26 Interval history: Ish feels okay today He is eager for discharge. he is getting his wounds change twice a day. He is getting antibiotics He had dialysis yesterday. He signed off early. I encouraged him to stay on dialysis for the prescribed time so it helps heal his wounds. Exam Narrative: General: ill appearing male in NAD Heart: normal S1 and S2; no rub or gallop Lungs: decreased breath sounds at bases Abdomen: bowel sounds positive and soft. Extremities: no cyanosis or clubbing; left AKA and right BKA Skin: no rash or subQ nodules Objective Data Vital Signs Vital Signs: Vital Signs - 24 hr 12/30/22 14:00 12/30/22 14:40 12/30/22 15:00 Temperature 98.5 F Pulse Rate 92 104 H 104 H Respiratory Rate 16 Blood Pressure 131/72 184/10
--- NOTE | 2022-12-31 09:26 | PM.PNNEP ---
Progress Note: A&P Assessment and Plan (1) End stage renal disease: Code(s): N18.6 - End stage renal disease Status: Chronic Assessment and Plan: Hemodialysis due on Monday. He signed off dialysis early yesterday. We discussed at length how he needs to be on treatment the entire duration Volume status looks good. Lungs are clear and he has no swelling potassium is normal today check labs tomorrow. (2) Bacteremia: Code(s): R78.81 - Bacteremia Status: Acute Assessment and Plan: staph bacteremia on 12/26. repeat blood cultures No growth to date. on Vancomycin. He will need this for 6 weeks. source -- decubitus ulcers versus tunneled HD catheter versus something else? Catheter was exchanged. Wounds undergoing dressing changes. Still on antibiotics. (3) Acute respiratory failure: Code(s): J96.00 - Acute respiratory failure, unspecified whether with hypoxia or hypercapnia Status: Acute Assessment and Plan: resolved extubated (on 12/28/22) E coli in the sputum. He is on cefepime. No cough or shortness of breath currently. follow respiratory status (4) Hyperkalemia: Code(s): E87.5 - Hyperkalemia Status: Acute Assessment and Plan: resolved Possibly due to hyper catabolic state versus diet. (5) Altered mental status: Code(s): R41.82 - Altered mental status, unspecified Status: Acute Assessment and Plan: Back to his normal self. (6) Anemia: Code(s): D64.9 - Anemia, unspecified Status: Chronic Assessment and Plan: due to ESRD and possible acute illness Epogen with HD Hemoglobin stable at 8.2. no need for iron since he has infection (7) Decubitus ulcers: Code(s): L89.90 - Pressure ulcer of unspecified site, unspecified stage Status: Chronic Assessment and Plan: local wound care wound care nurse following dressing changes twice a day he says (8) Diabetes: Qualifiers: Diabetes mellitus complication detail: with other circulatory complications Diabetes mellitus complication status: with circulatory complication Diabetes mellitus type: type 1 Qualified Code(s): E10.59 - Type 1 diabetes mellitus with other circulatory complications Code(s): E11.9 - Type 2 diabetes mellitus without complications Status: Chronic Assessment and Plan: on Accu-Cheks and sliding scale insulin per hospitalist Subjective Date/time seen: 12/31/22 09:26 Interval history: Ish feels okay today He is eager for discharge. he is getting his wounds change twice a day. He is getting antibiotics He had dialysis yesterday. He signed off early. I encouraged him to stay on dialysis for the prescribed time so it helps heal his wounds. Exam Narrative: General: ill appearing male in NAD Heart: normal S1 and S2; no rub or gallop Lungs: decreased breath sounds at bases Abdomen: bowel sounds positive and soft. Extremities: no cyanosis or clubbing; left AKA and right BKA Skin: no rash or subQ nodules Objective Data Vital Signs Vital Signs: Vital Signs - 24 hr 12/30/22 14:00 12/30/22 14:40 12/30/22 15:00 Temperature 98.5 F Pulse Rate 92 104 H 104 H Respiratory Rate 16 Blood Pressure 131/72 184/105 H 179/97 H Pulse Oximetry 97 Oxygen Delivery Fraction of Inspired Oxygen 12/30/22 15:20 12/30/22 14:30 12/30/22 15:40 Temperature 98.2 F Pulse Rate 104 H 107 H 111 H Respiratory Rate 18 Blood Pressure 161/91 H 188/104 H 133/86 Pulse Oximetry Oxygen Delivery Fraction of Inspired Oxygen 12/30/22 16:00 12/30/22 16:20 12/30/22 17:01 Temperature 98.3 F Pulse Rate 110 H 107 H 104 H Respiratory Rate 14 Blood Pressure 138/71 112/55 L 128/76 Pulse Oximetry Oxygen Delivery Fraction of Inspired Oxygen 12/30/22 21:41 12/30/22 20:00 12/31/22 06:
--- NOTE | 2022-12-31 11:52 | PM.IMPN ---
Progress Note: A&P Assessment and Plan (1) Sepsis: Code(s): A41.9 - Sepsis, unspecified organism Status: Acute (2) ESRD (end stage renal disease): Code(s): N18.6 - End stage renal disease Status: Chronic (3) Diabetes mellitus with hyperglycemia: Code(s): E11.65 - Type 2 diabetes mellitus with hyperglycemia Status: Acute (4) Altered mental status: Code(s): R41.82 - Altered mental status, unspecified Status: Acute (5) Respiratory failure: Code(s): J96.90 - Respiratory failure, unspecified, unspecified whether with hypoxia or hypercapnia Status: Acute Plan (1) Respiratory failure: ?Code(s): J96.90 - Respiratory failure, unspecified, unspecified whether with hypoxia or hypercapnia ?Status:?Acute ?Assessment and Plan: Acute Respiratory failure secondary to volume overload pulmonary edema and the encephalopathy Also possibility of pneumonia Chest x-ray reviewed -patient still has pulmonary edema but is improved as compared to yesterday ABG reviewed Patient was extubated successfully, patient is on nasal cannula (2) Encephalopathy: ?Code(s): G93.40 - Encephalopathy, unspecified ?Status:?Acute ?Assessment and Plan: Patient was confused pOA.? Likely toxic metabolic encephalopathy.? Hypercarbia could also be a possibility Currently patient is a mentally clear Head CT was negative Ammonia level was normal Patient now following commands on holding sedation. Monitor (3) Hypotension: ?Code(s): I95.9 - Hypotension, unspecified ?Status:?Acute ?Assessment and Plan: Resulting from sepsis Levophed has been weaned off at this time Blood pressure stable Monitor (4) Hyperkalemia: ?Code(s): E87.5 - Hyperkalemia ?Status:?Acute ?Assessment and Plan: Initially treated with medications in the ED Patient received dialysis later in the ICU Potassium Level improved Plan for another hemodialysis session today (5) End stage renal disease: ?Code(s): N18.6 - End stage renal disease ?Status:?Chronic ?Assessment and Plan: Discussed with nephrology Requested another hemodialysis session today (6) Pulmonary edema: ?Code(s): J81.1 - Chronic pulmonary edema ?Status:?Acute ?Assessment and Plan: Remove fluid with dialysis (7) Sepsis: ?Code(s): A41.9 - Sepsis, unspecified organism ?Status:?Acute ?Assessment and Plan: His lactic acid level was normal but he has chest x-ray suggestive infiltrates which is likely pulmonary edema but could be and pneumonia Also has a sacral decubitus wound Patient on daptomycin and ertapenem IV with hemodialysis in outpatient-not sure the reason but I anticipated is likely secondary to his decubitus wound.? Currently on vanc and cefepime that was started in ED Blood culture growing Staphylococcus epidermidis and Staphylococcus hominis Sputum culture growing ESBL Wound was evaluated by wound care Change cefepime to ertapenem and IV Continue vancomycin iv for 6 weeks (8) Decubitus ulcer of sacral area: ?Code(s): L89.159 - Pressure ulcer of sacral region, unspecified stage ?Status:?Chronic ?Assessment and Plan: Wound care consulted (9) IDDM (insulin dependent diabetes mellitus): ?Status:?Chronic ?Assessment and Plan: Sliding scale insulin Continue Nepro tube feeds Add Lantus (10) Anemia: ?Code(s): D64.9 - Anemia, unspecified ?Status:?Acute ?Assessment and Plan: Patient has multifactorial anemia No signs? of active bleeding Patient on IV iron and EPO 12/27 Patient was transfused 1 unit PRBC Continue IV PPI ?Continue aspirin and Brilinta.? Continue Monitoring hemoglobin Subjective Date/time seen: 12/31/22 11:52 I saw the patient today. Patient feels better today, has general weakness, appetite is improving. No new issue even or events over the night Exam Narrative: General: Pt is alert awake and in no
[2022-12-31 12:21] LABS: Glucose Point of Care 414 mg/dl (65-105)
[2022-12-31] MEDS: TOLNAFTATE 1% POWDER 45 GM BTL 1 APPLIC TOPICAL ×2 (12:52→20:48)
[2022-12-31] MEDS: SOD HYPOCHLORITE 1/4 STRENGTH 473 ML 1 APPLIC TOPICAL ×2 (12:52→20:48)
[2022-12-31 14:00] VITALS: BP 165/75; PULSE 98; RESP 16; TEMP 36.2; O2SAT 94
[2022-12-31 16:07] LABS: Glucose Point of Care 258 mg/dl (65-105)
[2022-12-31 17:03] LABS: Glucose Point of Care 255 mg/dl (65-105)
[2022-12-31] MEDS: ERTAPENEM SODIUM 0.5 GM in SODIUM CHLORIDE 0.9% IV 50 ML IVPB (17:07)
[2022-12-31 20:00] VITALS: PULSE 100; RESP 12; O2SAT 98
[2022-12-31] MEDS: LORazepam (*CRX) 1 MG TABLET PO (20:52)
[2022-12-31 21:01] LABS: Glucose Point of Care 207 mg/dl (65-105)
[2022-12-31 21:25] VITALS: BP 159/76; PULSE 100; RESP 12; TEMP 36.6; O2SAT 98
[2023-01-01] MEDS: CENTRAL LINE FLUSH 10 ML IV PUSH ×3 (05:29→20:47)
[2023-01-01 05:39] VITALS: BP 163/82; PULSE 108; RESP 16; TEMP 36.6; O2SAT 96
[2023-01-01 05:45] LABS: Hematocrit 24.3 % (42.0-52.0); Hemoglobin 7.5 g/dL (14.0-18.0); Mean Corpuscular HGB Conc 30.9 g/dl (32-36); Mean Corpuscular Hemoglobin 29.2 pg (26-34); Mean Corpuscular Volume 94.6 fl (80-100); Mean Platelet Volume 9.5 fl (7.4-10.4); Platelet Count Result 519 k/mm3 (150-375); Red Blood Count 2.57 M/mm3 (4.6-6.20); Red Cell Distribution Width 17.7 % (11.5-14.5); White Blood Count 15.3 K/mm3 (4.5-10.0)
[2023-01-01 05:57] LABS: Alanine Aminotransferase 10 U/L (6-50); Albumin Level 2.5 g/dL (3.5-5.1); Alkaline Phosphatase 92 U/L (38-126); Anion Gap 4 mmol/L (8-16); Aspartate Amino Transferase 32 U/L (17-59); Bilirubin,Total 0.4 mg/dL (0.2-1.3); Blood Urea Nitrogen 63 mg/dL (9-20); Calcium 8.5 mg/dL (8.4-10.2); Carbon Dioxide 28 mmol/L (22-30); Chloride 97 mmol/L (98-107); Estimated Glomerular Filt Rate 19; Glucose 112 mg/dL (65-110); Magnesium 1.8 mg/dL (1.6-2.3); Phosphorus 2.9 mg/dL (2.5-4.5); Potassium 4.8 mmol/L (3.4-5.0); Sodium 129 mmol/L (137-145)
--- NOTE | 2023-01-01 07:46 | PM.IMPN ---
Progress Note: A&P Assessment and Plan (1) Sepsis: Code(s): A41.9 - Sepsis, unspecified organism Status: Acute (2) ESRD (end stage renal disease): Code(s): N18.6 - End stage renal disease Status: Chronic (3) Diabetes mellitus with hyperglycemia: Code(s): E11.65 - Type 2 diabetes mellitus with hyperglycemia Status: Acute (4) Altered mental status: Code(s): R41.82 - Altered mental status, unspecified Status: Acute (5) Respiratory failure: Code(s): J96.90 - Respiratory failure, unspecified, unspecified whether with hypoxia or hypercapnia Status: Acute Plan (1) Respiratory failure: ?Code(s): J96.90 - Respiratory failure, unspecified, unspecified whether with hypoxia or hypercapnia ?Status:?Acute ?Assessment and Plan: Acute Respiratory failure secondary to volume overload pulmonary edema and the encephalopathy Also possibility of pneumonia Chest x-ray reviewed -patient still has pulmonary edema but is improved as compared to yesterday ABG reviewed Patient was extubated successfully, patient is on nasal cannula prn (2) Encephalopathy: ?Code(s): G93.40 - Encephalopathy, unspecified ?Status:?Acute ?Assessment and Plan: Patient was confused pOA.? Likely toxic metabolic encephalopathy.? Hypercarbia could also be a possibility Currently patient is a mentally clear Head CT was negative Ammonia level was normal resolved now, A&O X 3 Monitor (3) Hypotension: ?Code(s): I95.9 - Hypotension, unspecified ?Status:?Acute ?Assessment and Plan: Resulting from sepsis Levophed has been weaned off at this time Blood pressure stable Monitor (4) Hyperkalemia: ?Code(s): E87.5 - Hyperkalemia ?Status:?Acute ?Assessment and Plan: Initially treated with medications in the ED Patient received dialysis later in the ICU corrected (5) End stage renal disease: ?Code(s): N18.6 - End stage renal disease ?Status:?Chronic ?Assessment and Plan: on HD hemodialysis per clamshell engineer (6) Pulmonary edema: ?Code(s): J81.1 - Chronic pulmonary edema ?Status:?Acute ?Assessment and Plan: Remove fluid with dialysis EUVOLEMIA TODAY (7) Sepsis: ?Code(s): A41.9 - Sepsis, unspecified organism ?Status:?Acute ?Assessment and Plan: His lactic acid level was normal but he has chest x-ray suggestive infiltrates which is likely pulmonary edema but could be and pneumonia Also has a sacral decubitus wound Patient on daptomycin and ertapenem IV with hemodialysis in outpatient-not sure the reason but I anticipated is likely secondary to his decubitus wound.? Currently on vanc and cefepime that was started in ED Blood culture growing Staphylococcus epidermidis and Staphylococcus hominis Sputum culture growing ESBL Wound was evaluated by wound care Change cefepime to ertapenem and IV Continue vancomycin iv for 6 weeks (8) Decubitus ulcer of sacral area: ?Code(s): L89.159 - Pressure ulcer of sacral region, unspecified stage ?Status:?Chronic ?Assessment and Plan: Wound care consulted (9) IDDM (insulin dependent diabetes mellitus): ?Status:?Chronic ?Assessment and Plan: Sliding scale insulin Continue Nepro tube feeds Add Lantus 30 units am, lipro 4 ac and high dose ISS better controlled now (10) Anemia: ?Code(s): D64.9 - Anemia, unspecified ?Status:?Acute ?Assessment and Plan: Patient has multifactorial anemia No signs? of active bleeding Patient on IV iron and EPO 12/27 Patient was transfused 1 unit PRBC Continue IV PPI ?Continue aspirin and Brilinta.? Continue Monitoring hemoglobin patient may be discharged to long term in 48 hours Subjective Date/time seen: 01/01/23 07:46 Interval history: Saw and examined patient today. Patient feels better, still has weakness, afebrile, denies chest pain shortness of breath, abdomen pain. No new issue e
[2023-01-01 08:22] LABS: Glucose Point of Care 200 mg/dl (65-105)
[2023-01-01] MEDS: ATORVASTATIN 40 MG TABLET 80 MG PO (08:33)
[2023-01-01] MEDS: ASPIRIN 325 MG TABLET PO (08:33)
[2023-01-01] MEDS: PANTOPRAZOLE SODIUM IV 40 MG VIAL IV PUSH (08:35)
[2023-01-01] MEDS: VITAMIN B CMPLX/VIT C/FOLIC AC 1 CAPSULE 1 CAP PO (08:35)
[2023-01-01] MEDS: TICAGRELOR 60 MG TABLET PO (08:35)
[2023-01-01 08:37] VITALS: PULSE 109
[2023-01-01] MEDS: carvediloL 3.125 MG TABLET PO ×2 (08:37→20:44)
[2023-01-01] MEDS: INSULIN ASPART (*BKC) 100 UNITS/ML SUB-Q ×2 (08:39→12:19)
[2023-01-01] MEDS: INSULIN GLARGINE (*BKC) 100 UNITS/ML 30 UNITS SUB-Q (08:40)
--- NOTE | 2023-01-01 08:58 | P.PNNP_ITS ---
Progress Note: A&P Assessment and Plan (1) End stage renal disease: Code(s): N18.6 - End stage renal disease Status: Chronic Assessment and Plan: * Hemodialysis due on Monday. * He looks euvolemic. * potassium is normal today * Sodium is a little low. Will fluid restrict to about 1800cc just so he does not drink a whole lot. * check labs tomorrow. (2) Bacteremia: Code(s): R78.81 - Bacteremia Status: Acute Assessment and Plan: * staph bacteremia on 12/26. * repeat blood cultures No growth to date. * on Vancomycin. He will need this for 6 weeks. * source -- decubitus ulcers versus tunneled HD catheter versus something else? * Catheter was exchanged. * Wounds undergoing dressing changes. * Still on ertapenem per triple-lumen catheter (3) Acute respiratory failure: Code(s): J96.00 - Acute respiratory failure, unspecified whether with hypoxia or hypercapnia Status: Acute Assessment and Plan: * resolved (4) Hyperkalemia: Code(s): E87.5 - Hyperkalemia Status: Acute Assessment and Plan: * resolved * Possibly due to hyper catabolic state versus diet. (5) Altered mental status: Code(s): R41.82 - Altered mental status, unspecified Status: Acute Assessment and Plan: * Back to his normal self. (6) Anemia: Code(s): D64.9 - Anemia, unspecified Status: Chronic Assessment and Plan: * due to ESRD and possible acute illness * Epogen with HD * Hemoglobin stable at 8.2. * no need for iron since he has infection (7) Decubitus ulcers: Code(s): L89.90 - Pressure ulcer of unspecified site, unspecified stage Status: Chronic Assessment and Plan: * local wound care * wound care nurse following * dressing changes twice a day he says (8) Diabetes: Qualifiers: Diabetes mellitus complication detail: with other circulatory complications Diabetes mellitus complication status: with circulatory complication Diabetes mellitus type: type 1 Qualified Code(s): E10.59 - Type 1 diabetes mellitus with other circulatory complications Code(s): E11.9 - Type 2 diabetes mellitus without complications Status: Chronic Assessment and Plan: * on Accu-Cheks and sliding scale insulin per hospitalist Subjective Date/time seen: 02/19/23 08:58 Interval history: Ish feels okay today He misses his . She will be by later. He is hungry. Nursing staff is going to feed him soon. Exam Narrative: General: ill appearing male in NAD Heart: normal S1 and S2; no rub or gallop Lungs: decreased breath sounds at bases Abdomen: bowel sounds positive and soft. Extremities: no cyanosis or clubbing; left AKA and right BKA Skin: no rash Objective Data Vital Signs Vital Signs: Vital Signs - 24 hr 12/31/22 14:00 12/31/22 21:25 12/31/22 20:00 Temperature 97.1 F L 98 F Pulse Rate 98 100 100 Respiratory Rate 16 12 12 Blood Pressure 165/75 H 159/76 H Pulse Oximetry 94 98 98 Oxygen Delivery Room Air Fraction of Inspired Oxygen 01/01/23 05:39 01/01/23 08:37 Temperature 97.9 F Pulse Rate 108 H 109 H Respiratory Rate 16 Blood Pressure 163/82 H Pulse Oximetry 96
--- NOTE | 2023-01-01 08:58 | PM.PNNEP ---
Progress Note: A&P Assessment and Plan (1) End stage renal disease: Code(s): N18.6 - End stage renal disease Status: Chronic Assessment and Plan: Hemodialysis due on Monday. He looks euvolemic. potassium is normal today Sodium is a little low. Will fluid restrict to about 1800cc just so he does not drink a whole lot. check labs tomorrow. (2) Bacteremia: Code(s): R78.81 - Bacteremia Status: Acute Assessment and Plan: staph bacteremia on 12/26. repeat blood cultures No growth to date. on Vancomycin. He will need this for 6 weeks. source -- decubitus ulcers versus tunneled HD catheter versus something else? Catheter was exchanged. Wounds undergoing dressing changes. Still on ertapenem per triple-lumen catheter (3) Acute respiratory failure: Code(s): J96.00 - Acute respiratory failure, unspecified whether with hypoxia or hypercapnia Status: Acute Assessment and Plan: resolved (4) Hyperkalemia: Code(s): E87.5 - Hyperkalemia Status: Acute Assessment and Plan: resolved Possibly due to hyper catabolic state versus diet. (5) Altered mental status: Code(s): R41.82 - Altered mental status, unspecified Status: Acute Assessment and Plan: Back to his normal self. (6) Anemia: Code(s): D64.9 - Anemia, unspecified Status: Chronic Assessment and Plan: due to ESRD and possible acute illness Epogen with HD Hemoglobin stable at 8.2. no need for iron since he has infection (7) Decubitus ulcers: Code(s): L89.90 - Pressure ulcer of unspecified site, unspecified stage Status: Chronic Assessment and Plan: local wound care wound care nurse following dressing changes twice a day he says (8) Diabetes: Qualifiers: Diabetes mellitus complication detail: with other circulatory complications Diabetes mellitus complication status: with circulatory complication Diabetes mellitus type: type 1 Qualified Code(s): E10.59 - Type 1 diabetes mellitus with other circulatory complications Code(s): E11.9 - Type 2 diabetes mellitus without complications Status: Chronic Assessment and Plan: on Accu-Cheks and sliding scale insulin per hospitalist Subjective Date/time seen: 01/01/23 08:58 Interval history: Ish feels okay today He misses his . She will be by later. He is hungry. Nursing staff is going to feed him soon. Exam Narrative: General: ill appearing male in NAD Heart: normal S1 and S2; no rub or gallop Lungs: decreased breath sounds at bases Abdomen: bowel sounds positive and soft. Extremities: no cyanosis or clubbing; left AKA and right BKA Skin: no rash Objective Data Vital Signs Vital Signs: Vital Signs - 24 hr 12/31/22 14:00 12/31/22 21:25 12/31/22 20:00 Temperature 97.1 F L 98 F Pulse Rate 98 100 100 Respiratory Rate 16 12 12 Blood Pressure 165/75 H 159/76 H Pulse Oximetry 94 98 98 Oxygen Delivery Room Air Fraction of Inspired Oxygen 01/01/23 05:39 01/01/23 08:37 Temperature 97.9 F Pulse Rate 108 H 109 H Respiratory Rate 16 Blood Pressure 163/82 H Pulse Oximetry 96 Oxygen Delivery Fraction of Inspired Oxygen Intake/Output Intake/Output: Intake & Output 12/29/22 12/30/22 12/31/22 01/01/23 23:59 23:59 23:59 23:59 Intake Total 1550 3830 2334 100 Output Total 250 1950 225 0 Balance 1300 1880 2109 100 Meds/Results Medications: Active Medications Generic Name Dose Route Start Last Admin Trade Name Freq PRN Reason Stop Dose Admin Albuterol 2.5 mg 12/26/22 21:25 Albuterol Sulfate Neb 2.5 Mg/3 Ml Inh INHALATION Q4HRT PRN Shortness Of Breath Aspirin 325 mg 01/01/23 08:35 01/01/23 08:33 Aspirin 325 Mg Tablet PO 325 mg DAILY@0800 MARTHA Administration Atorvastatin Calcium 80 mg 12/27/22 09:00 02
[2023-01-01 09:39] LABS: Iron 29 ug/dL (49-181)
[2023-01-01 09:49] LABS: Percent Iron Saturation 26 % (20-50)
[2023-01-01 12:14] LABS: Glucose Point of Care 188 mg/dl (65-105)
[2023-01-01 13:31] LABS: Glucose Point of Care 187 mg/dl (65-105)
[2023-01-01] MEDS: SOD HYPOCHLORITE 1/4 STRENGTH 473 ML 1 APPLIC TOPICAL ×2 (13:40→20:47)
[2023-01-01] MEDS: TOLNAFTATE 1% POWDER 45 GM BTL 1 APPLIC TOPICAL ×2 (13:40→20:47)
[2023-01-01 14:00] VITALS: BP 136/76; PULSE 107; RESP 24; TEMP 37.3; O2SAT 98
[2023-01-01 17:16] LABS: Glucose Point of Care 117 mg/dl (65-105)
[2023-01-01] MEDS: ERTAPENEM SODIUM 0.5 GM in SODIUM CHLORIDE 0.9% IV 50 ML IVPB (18:15)
[2023-01-01 20:00] VITALS: PULSE 98; RESP 26; O2SAT 98
[2023-01-01 21:32] VITALS: BP 153/82; PULSE 104; RESP 26; TEMP 36.7; O2SAT 97
[2023-01-01 21:44] LABS: Glucose Point of Care 88 mg/dl (65-105)
[2023-01-01 21:44] LABS: Glucose Point of Care 109 mg/dl (65-105)
[2023-01-02] VITALS (42 sets, daily range): BP systolic 96–215; BP diastolic 62–114; PULSE 104–133; RESP 18–36; TEMP 36.2–37; O2SAT 92–100
[2023-01-02 02:17] LABS: Hematocrit 28.8 % (42.0-52.0); Hemoglobin 8.7 g/dL (14.0-18.0); Mean Corpuscular HGB Conc 30.2 g/dl (32-36); Mean Corpuscular Hemoglobin 29.6 pg (26-34); Mean Platelet Volume 9.4 fl (7.4-10.4); Platelet Count Result 610 k/mm3 (150-375); Red Blood Count 2.94 M/mm3 (4.6-6.20); Red Cell Distribution Width 18.5 % (11.5-14.5); White Blood Count 18.7 K/mm3 (4.5-10.0)
[2023-01-02 02:37] LABS: Albumin Level 2.9 g/dL (3.5-5.1); Anion Gap 6 mmol/L (8-16); Blood Urea Nitrogen 86 mg/dL (9-20); Carbon Dioxide 29 mmol/L (22-30); Chloride 98 mmol/L (98-107); Estimated Glomerular Filt Rate 17; Glucose 145 mg/dL (65-110); Phosphorus 4.7 mg/dL (2.5-4.5); Potassium 5.3 mmol/L (3.4-5.0); Sodium 133 mmol/L (137-145)
--- NOTE | 2023-01-02 02:38 | ECG_ITS ---
Measurements Intervals Adams Rate: 125 P: 9 TN: 155 QRS: 39 QRSD: 86 T: -41 QT: 299 QTc: 432 Interpretive Statements SINUS TACHYCARDIA LEFT VENTRICULAR HYPERTROPHY WITH SECONDARY REPOLARIZATION ABNORMALITY ABNORMAL ECG COMPARED TO ECG 12/26/2022 20:55:13 NO SIGNIFICANT CHANGES Electronically Signed On 01-02-2023 12:43:[address] JUSTICE by Chance Landis M.D.
--- NOTE | 2023-01-02 02:39 | PM.CCN ---
Critical Care Event Note Summary Code activated: No Narrative: 01/02/2022 approximately 01:10 rapid response was called as patient was found to be profoundly hypoglycemic. Nursing staff reports that at bedtime the patient's glucoses were 80. REFRIGERATION SYSTEM INSTALLER went in to obtain routine vitals and found the patient minimally responsive and profusely diaphoretic. Accu-Chek at that time demonstrated glucoses in the 30s. Patient oxygen saturation also picking up if 50%. Patient was placed on 8 L nasal cannula. Patient received chews and glucose gel. The patient also received a half of amp of D50. The patient's glucoses improved to around 160. The patient had 2 more Accu-Cheks but by the 3rd Accu-Chek the patient's glucoses were trending down to 110. Subsequently patient received another half amp of dextrose. After dextrose patient was more home wake. He was still refusing to follow directions. He was refusing to give answer orientation questions. However he reported that he felt better. He was no longer diaphoretic. The patient received 30 of Lantus subQ daily. Nursing staff reported the patient had not wanted eat dinner. But when his glucoses were 80s in the evening he did some snacks. Patient is known brittle diabetic and tense have wide fluctuations of his glucose. It appears that the patient's Lantus was increased to 30 units daily with his home doses 10 units q.12. Patient is extremely sensitive insulin and has had similar episodes in the past whenever large adjustments were made to his insulin regimen. In the past the patient is seemed to do better with b.i.d. Lantus dosing. It may be beneficial instead put the patient on Lantus 12 units b.i.d. instead of the 30 units at once. I will defer adjustment of patient's Lantus to the daytime provider. His blood pressures had been markedly elevated during initial rapid response but with improving glucoses patient's blood pressures came down out of the 200 systolic and to the 170s. The patient is known to have labile blood pressures at baseline. He is due for dialysis today. Initially during the rapid response patient was placed on non-rebreather due to his sats reading 50%. Both improvement in the patient's glucose patient's oxygen saturations normalized. He is now weaned down to 2 L nasal cannula satting in the upper 90s. He still is having rattling respirations with coarse crackles throughout. I suspect that there was some airway transmission of the patient's respiratory sounds. Patient may benefit from swallow eval given his encephalopathy and I suspect he may be at risk for some aspiration. He is not having any significant coughing after drinking. Speech therapy order has been placed for assessment. Patient remains afebrile but on ertapenem for sacral decubitus ulcer. His white count did go up today but I suspect that this may be in part due to acute stress response due to patient's severe hypoglycemia. Will continue to monitor for other signs of infection. 45 minute spent in critical care activities. Due to a high probability of clinically significant, life threatening deterioration, the patient required my highest level of preparedness to intervene emergently and I personally spent this critical care time directly and personally managing the patient. This critical care time included obtaining a history; examining the patient; pulse oximetry; ordering and review of studies; arranging urgent treatment with development of a management plan; evaluation of patient's response to treatment; frequent reassessment; and discussions with other providers. It was exclusive of separately billable procedures and treating other patients and teaching time. Please see Assessment and Plan section and the rest of the note for further information on patient assessment and treatment. Critical care time: 30 - 74 mins
[2023-01-02 03:39] LABS: Glucose Point of Care 141 mg/dl (65-105)
[2023-01-02 03:39] LABS: Glucose Point of Care 155 mg/dl (65-105)
[2023-01-02 03:39] LABS: Glucose Point of Care 59 mg/dl (65-105)
[2023-01-02 03:39] LABS: Glucose Point of Care 160 mg/dl (65-105)
[2023-01-02 03:39] LABS: Glucose Point of Care 83 mg/dl (65-105)
[2023-01-02 03:39] LABS: Glucose Point of Care 30 mg/dl (65-105)
[2023-01-02 03:39] LABS: Glucose Point of Care 194 mg/dl (65-105)
[2023-01-02 04:17] LABS: Glucose Point of Care 189 mg/dl (65-105)
[2023-01-02] MEDS: CENTRAL LINE FLUSH 10 ML IV PUSH ×4 (06:10→21:12)
[2023-01-02 06:18] LABS: Glucose Point of Care 195 mg/dl (65-105)
[2023-01-02 07:38] LABS: Glucose Point of Care 200 mg/dl (65-105)
[2023-01-02] MEDS: SOD HYPOCHLORITE 1/4 STRENGTH 473 ML 1 APPLIC TOPICAL ×2 (08:35→21:12)
[2023-01-02] MEDS: TOLNAFTATE 1% POWDER 45 GM BTL 1 APPLIC TOPICAL ×2 (08:35→21:12)
[2023-01-02] MEDS: VITAMIN B CMPLX/VIT C/FOLIC AC 1 CAPSULE 1 CAP PO (08:35)
[2023-01-02] MEDS: PANTOPRAZOLE SODIUM IV 40 MG VIAL IV PUSH (08:35)
[2023-01-02] MEDS: ATORVASTATIN 40 MG TABLET 80 MG PO (08:36)
[2023-01-02] MEDS: carvediloL 3.125 MG TABLET PO ×2 (08:46→21:12)
[2023-01-02 11:14] LABS: Glucose Point of Care 281 mg/dl (65-105)
--- NOTE | 2023-01-02 11:39 | PM.IMPN ---
Progress Note: A&P Assessment and Plan (1) Sepsis: Code(s): A41.9 - Sepsis, unspecified organism Status: Acute (2) ESRD (end stage renal disease): Code(s): N18.6 - End stage renal disease Status: Chronic (3) Diabetes mellitus with hyperglycemia: Code(s): E11.65 - Type 2 diabetes mellitus with hyperglycemia Status: Acute (4) Altered mental status: Code(s): R41.82 - Altered mental status, unspecified Status: Acute (5) Respiratory failure: Code(s): J96.90 - Respiratory failure, unspecified, unspecified whether with hypoxia or hypercapnia Status: Acute Plan (1) Respiratory failure: ?Code(s): J96.90 - Respiratory failure, unspecified, unspecified whether with hypoxia or hypercapnia ?Status:?Acute ?Assessment and Plan: Acute Respiratory failure secondary to volume overload pulmonary edema and the encephalopathy Also possibility of pneumonia Chest x-ray reviewed -patient still has pulmonary edema but is improved as compared to yesterday ABG reviewed Patient was extubated successfully, patient is on nasal cannula prn (2) Encephalopathy: ?Code(s): G93.40 - Encephalopathy, unspecified ?Status:?Acute ?Assessment and Plan: Patient was confused pOA.? Likely toxic metabolic encephalopathy.? Hypercarbia could also be a possibility Currently patient is a mentally clear Head CT was negative Ammonia level was normal resolved now, A&O X 3 Monitor (3) Hypotension: ?Code(s): I95.9 - Hypotension, unspecified ?Status:?Acute ?Assessment and Plan: Resulting from sepsis Levophed has been weaned off at this time Blood pressure stable Monitor (4) Hyperkalemia: ?Code(s): E87.5 - Hyperkalemia ?Status:?Acute ?Assessment and Plan: Initially treated with medications in the ED Patient received dialysis later in the ICU corrected (5) End stage renal disease: ?Code(s): N18.6 - End stage renal disease ?Status:?Chronic ?Assessment and Plan: on HD hemodialysis per mail carriers supervisor (6) Pulmonary edema: ?Code(s): J81.1 - Chronic pulmonary edema ?Status:?Acute ?Assessment and Plan: Remove fluid with dialysis EUVOLEMIA TODAY (7) Sepsis: ?Code(s): A41.9 - Sepsis, unspecified organism ?Status:?Acute ?Assessment and Plan: His lactic acid level was normal but he has chest x-ray suggestive infiltrates which is likely pulmonary edema but could be and pneumonia Also has a sacral decubitus wound Patient on daptomycin and ertapenem IV with hemodialysis in outpatient-not sure the reason but I anticipated is likely secondary to his decubitus wound.? Currently on vanc and cefepime that was started in ED Blood culture growing Staphylococcus epidermidis and Staphylococcus hominis Sputum culture growing ESBL Wound was evaluated by wound care Changed cefepime to ertapenem IV on 12/30/22, complete 7 days Continue vancomycin iv for 6 weeks (8) Decubitus ulcer of sacral area: ?Code(s): L89.159 - Pressure ulcer of sacral region, unspecified stage ?Status:?Chronic ?Assessment and Plan: Wound care consulted (9) IDDM (insulin dependent diabetes mellitus): ?Status:?Chronic ?Assessment and Plan: Had hypoglycemia overnight, thus hold Lantus and continue SSI with accucheks Will modify with clinical course (10) Anemia: ?Code(s): D64.9 - Anemia, unspecified ?Status:?Acute ?Assessment and Plan: Patient has multifactorial anemia No signs? of active bleeding Patient on IV iron and EPO 12/27 Patient was transfused 1 unit PRBC Continue IV PPI ?Continue aspirin and Brilinta.? Continue Monitoring hemoglobin Discharge planning in place Subjective Date/time seen: 01/02/23 11:39 Interval history: Patient seen and examined at bedside this morning, had RR overnight got hypoglycemia and hypoxia. Was alert but non verbal at the time of this encounter. Had Sp
--- NOTE | 2023-01-02 12:06 | ECG_ITS ---
Measurements Intervals [place] Rate: 112 P: 47 ME: 157 QRS: 58 QRSD: 90 T: 96 QT: 326 QTc: 447 Interpretive Statements SINUS TACHYCARDIA NONSPECIFIC ST & T-WAVE ABNORMALITY ABNORMAL RHYTHM ECG COMPARED TO ECG 01/02/2023 02:50:06 NO SIGNIFICANT CHANGE Electronically Signed On 01-02-2023 12:53:18 GIS INSTRUCTOR by Chance Landis M.D.
[2023-01-02 12:19] LABS: Glucose Point of Care 291 mg/dl (65-105)
[2023-01-02 12:20] LABS: Alveolar/Arterial O2 Gradient 219.4 mmHg; Base Excess ABG -0.9 mEq/l (+/-2.0); Fractional Inspired Oxygen 44 %; Oxygen Content ABG 12.3 %vol (16.0-22.0); Oxygen Saturation ABG 89.6 % (95.0-100.0); PO2 ABG 54.4 mmHg (80.0-100.0); PO2 FiO2 Ratio Arterial Blood 1.24 %; Total Hemoglobin 10.1 g/dL (12.0-18.0); pH ABG 7.435 (7.350-7.450)
[2023-01-02 12:22] LABS: Device NASAL CANNULA; Modified Allen's Test Pass; Oxyhemoglobin 86.3 % THb (90.0-100.0); Site Drawn LEFT RADIAL
--- NOTE | 2023-01-02 12:22 | PCSTNOTE ---
[place] Swallow Evaluation not completed at 9:30 as patient not able according to nurse. Rapid Response called around 12:00.
[2023-01-02 12:35] LABS: Hematocrit 26.9 % (42.0-52.0); Hemoglobin 8.1 g/dL (14.0-18.0); Mean Corpuscular HGB Conc 30.1 g/dl (32-36); Mean Corpuscular Hemoglobin 28.9 pg (26-34); Mean Corpuscular Volume 96.1 fl (80-100); Mean Platelet Volume 9.5 fl (7.4-10.4); Platelet Count Result 549 k/mm3 (150-375); Red Cell Distribution Width 18.5 % (11.5-14.5); White Blood Count 18.8 K/mm3 (4.5-10.0)
[2023-01-02] MEDS: FUROSEMIDE INJ 100 MG/10 ML VIAL IV PUSH (12:36)
[2023-01-02] MEDS: NALOXONE HCL 0.4 MG/ML VIAL IV PUSH (12:42)
[2023-01-02 12:45] LABS: Lactic Acid Reflex 0.9 mmol/L (0.7-2.0)
--- NOTE | 2023-01-02 12:47 | P.PNCROSS_ITS ---
Event Note Event Note Event Note: Rapid response was called on the patient on account of acute respiratory decomp ensation. Nurse noted that patient has been less responsive with respiratory rate in 36. At bedside patient was barely responsive will open his eyes to verbal stimulation and respond with head gestures but nom verbal. RS rales to auscultation, CVS S1 and S2, fast regular rhythm, sift non tender and non distended. Neuro alert to vverbal stimulation and uses head gestures for response otherwise not moving extremities to command EKG showed ST no acute St-T changes, ABG notable for Po in 50s, CXR showed pulm edema. Assessment Acute respiratory decompensation Pulm edema AMS Plan Stat CBC, CMP, lactic and Troponin. Nephrology called and noted they will take patient for dialysis in 3 hrs and recommended 100mg lasix in the meantime, thus spin table operator Dr Cortes was consulted he evaluated patient at bedside and accepted to take patient to ICU for intensive care.
--- NOTE | 2023-01-02 12:47 | PC.NURSE ---
Rapid response called at 1207 due to increased respirations and unresponsiveness. At 1245 patient transferred to ICU/06 via bed. notified of transfer at 1247.
--- NOTE | 2023-01-02 12:55 | WPDINTPN ---
Progress Note: A&P Assessment and Plan (1) Encephalopathy: Code(s): G93.40 - Encephalopathy, unspecified Status: Acute Assessment and Plan: 01/02/2023: Encephalopathy could be related to uremia, hypoxemia, infection, stroke -will obtain stat noncontrast CT of the brain -patient was given Narcan with no response -continue supplemental oxygen -patient will require emergent dialysis -check ammonia level -hold all sedation meds (2) Respiratory failure: Code(s): J96.90 - Respiratory failure, unspecified, unspecified whether with hypoxia or hypercapnia Status: Acute Assessment and Plan: Patient replaced on Airvo for adequate oxygenation -if patient's oxygenation decreases goes into impending respiratory failure due to volume overload, have a low threshold of intubating the patient -01/02 chest x-ray shows Stable moderate pulmonary edema pattern. -he is showed hypoxemia, currently on Airvo -patient will be benefit from continue dialysis -continue bronchodilators (3) Sepsis: Code(s): A41.9 - Sepsis, unspecified organism Status: Acute Assessment and Plan: 01/02: Lactic acid is normal, patient was tachycardic, hypothermic, -blood pressures have been stable -he does have a large sacral decubitus ulcer -12/26/2022 blood cultures are positive for Staph epidermidis and Staph hominis 2/2 bottles -12/27/2022 respiratory cultures grew ESBL E coli -12/27/2022 MRSA screen was negative -patient currently on vancomycin and ertapenem -12/29/2022 repeat blood cultures: Preliminary report is negative x2 bottles -12/27/2022 Echocardiogram did not show any vegetations. He obviously may need julieth if bacteremia persists -Patient is not sure when he received the tunneled dialysis catheter and where it was done. He states it was probably done at [facility] few months ago but I do not see any operative note regarding tunneled dialysis catheter placement going back last year. -wound care team is following the patient (4) Hyperkalemia: Code(s): E87.5 - Hyperkalemia Status: Acute Assessment and Plan: 01/02/2023 potassium was 6.0 -will treat with sodium bicarb, albuterol, insulin and D50, rectal Kayexalate (5) End stage renal disease: Code(s): N18.6 - End stage renal disease Status: Chronic Assessment and Plan: Patient has a history of end-stage renal disease, on dialysis -he is very sensitive to volume overload and has been admitted to the hospital multiple times for the same reason -chest x-ray did rapid response showed moderate diffuse pulmonary edema (6) Pulmonary edema: Code(s): J81.1 - Chronic pulmonary edema Status: Acute Assessment and Plan: Patient will require urgent dialysis (7) Decubitus ulcer of sacral area: Code(s): L89.159 - Pressure ulcer of sacral region, unspecified stage Status: Chronic Assessment and Plan: Wound care evaluated the patient and recommendations for wound care appreciated (8) IDDM (insulin dependent diabetes mellitus): Status: Chronic Assessment and Plan: Continue sliding scale insulin Accu-Chek On Lantus (9) Anemia: Code(s): D64.9 - Anemia, unspecified Status: Acute Assessment and Plan: Equal COVID-19 is remained stable since 12/28 -anemia is likely multifactorial -patient is on Epogen per Nephrology -status post IV iron 12/27 Patient was transfused 1 unit PRBC Continue IV PPI Continue aspirin and Brilinta. Continue Monitoring hemoglobin which has been stable Plan DVT prophylaxis -hold anticoagulation due to significant anemia. Patient not a candidate for SCDs bed because of bilateral AKAs Stress ulcer prophylaxis -PPI Nutrition -On Tube Feeds Code Status - Full Code Critical Care Time Spent: 47 minutes Due to a high probability of clinically significant, life threatening deterioration, the patient required my highest level of prep
[2023-01-02 12:58] LABS: Alanine Aminotransferase 12 U/L (6-50); Alkaline Phosphatase 106 U/L (38-126); Anion Gap 9 mmol/L (8-16); Aspartate Amino Transferase 28 U/L (17-59); Bilirubin,Total 0.5 mg/dL (0.2-1.3); Blood Urea Nitrogen 92 mg/dL (9-20); Carbon Dioxide 25 mmol/L (22-30); Chloride 95 mmol/L (98-107); Estimated Glomerular Filt Rate 16; Glucose 331 mg/dL (65-110); Sodium 129 mmol/L (137-145); Troponin I 0.053 ng/mL (0.000-0.034)
[2023-01-02] MEDS: hydrALAZINE HCL 20 MG/ML VIAL 10 MG IV PUSH (13:34)
[2023-01-02] MEDS: INSULIN ASPART (*BKC) 100 UNITS/ML SUB-Q (13:37)
[2023-01-02] MEDS: ALBUTEROL SULFATE NEB 2.5 MG/3 ML INH 10 MG INHALATION (13:45)
--- NOTE | 2023-01-02 13:46 | PCSTNOTE ---
Therapist spoke with nursing in ICU who requested no BSE today but check in the morning to assess for progress and ability to participate.
[2023-01-02] MEDS: SODIUM BICARBONATE 8.4% 50 MEQ/50 ML SYRINGE IV PUSH (14:16)
[2023-01-02] MEDS: SODIUM POLYSTYRENE SULFONONATE 15 GM/60 ML BTL 30 GM RECTAL (14:16)
[2023-01-02 15:31] LABS: Ammonia < 9 umol/L (9-30)
[2023-01-02] MEDS: DEXTROSE 50% 25 GM/50 ML SYRINGE IV PUSH (15:57)
[2023-01-02] MEDS: INSULIN HUMAN REGULAR (*BKC) 100 UNITS/ML 10 UNITS IV PUSH (16:01)
--- NOTE | 2023-01-02 17:13 | P.PNNP_ITS ---
Progress Note: A&P Assessment and Plan (1) End stage renal disease: Code(s): N18.6 - End stage renal disease Status: Chronic Assessment and Plan: * HD today and continue // schedule * follow electrolytes, volume status, and clearance * suspect his limited fluid removal and shortened HD treatment (patient ended treatment early) on Monday responsible to current situation... (2) Bacteremia: Code(s): R78.81 - Bacteremia Status: Acute Assessment and Plan: * staph bacteremia on 12/26. * repeat blood culturesn - growth to date. * on Vancomycin - will need this for 6 weeks * source -- decubitus ulcers versus tunneled HD catheter versus something else? * HD catheter was recently exchanged * wounds undergoing dressing changes. * still on ertapenem per triple-lumen catheter (3) Acute respiratory failure: Code(s): J96.00 - Acute respiratory failure, unspecified whether with hypoxia or hypercapnia Status: Acute Assessment and Plan: * as noted by rapid reponse earlier today * fluid removal with HD * follow respiratory status (4) Hyperkalemia: Code(s): E87.5 - Hyperkalemia Status: Acute Assessment and Plan: * as noted by recent labs * possibly due to hyper-catabolic state versus diet versus shortened dialysis treatments (5) Altered mental status: Code(s): R41.82 - Altered mental status, unspecified Status: Acute Assessment and Plan: * fluctuating at this time * follow mentation (6) Anemia: Code(s): D64.9 - Anemia, unspecified Status: Chronic Assessment and Plan: * due to ESRD and possible acute illness * Epogen with HD * follow H/H (7) Decubitus ulcers: Code(s): L89.90 - Pressure ulcer of unspecified site, unspecified stage Status: Chronic Assessment and Plan: * local wound care * wound care nurse following (8) Diabetes: Qualifiers: Diabetes mellitus complication detail: with other circulatory complications Diabetes mellitus complication status: with circulatory co mplication Diabetes mellitus type: type 1 Qualified Code(s): E10.59 - Type 1 diabetes mellitus with other circulatory complications Code(s): E11.9 - Type 2 diabetes mellitus without complications Status: Chronic Assessment and Plan: * on Accu-Cheks * glycemic control per hospitalist Will continue to follow. Subjective Date/time seen: 01/02/23 17:13 Chart reviewed since last seem -- rapid response earlier today due to altered me ntal status and hypoxia; given high dose diuretics and transferred to ICU for closer monitoring; tolerating dialysis treatment at the time of my visit (seen on HD at 5:00PM); apparently, he ended his dialysis treatment on Monday early resulting in limited fluid removal. Exam Narrative: General: ill appearing male in NAD Heart: normal S1 and S2; no rub or gallop Lungs: coarse breath sounds Abdomen: bowel sounds positive and soft. Extremities: no cyanosis or clubbing; left AKA and right BKA Skin: warm and dry Objective Data Vital Signs Vital Signs: Vital Signs Temp Pulse Resp BP Pulse Ox O2 Del Method O2 Flow Rate 01/02/23 16:00 98.3 F 116 H 18 134/89 100 01/02/23 14:00 97.7 F 119 H 23 H 158/92 H 97 01/02/23 15:17 121 H 25 H 95 High Flow T
--- NOTE | 2023-01-02 17:13 | PM.PNNEP ---
Progress Note: A&P Assessment and Plan (1) End stage renal disease: Code(s): N18.6 - End stage renal disease Status: Chronic Assessment and Plan: HD today and continue M/W/ schedule follow electrolytes, volume status, and clearance suspect his limited fluid removal and shortened HD treatment (patient ended treatment early) on Monday responsible to current situation... (2) Bacteremia: Code(s): R78.81 - Bacteremia Status: Acute Assessment and Plan: staph bacteremia on 12/26. repeat blood culturesn - growth to date. on Vancomycin - will need this for 6 weeks source -- decubitus ulcers versus tunneled HD catheter versus something else? HD catheter was recently exchanged wounds undergoing dressing changes. still on ertapenem per triple-lumen catheter (3) Acute respiratory failure: Code(s): J96.00 - Acute respiratory failure, unspecified whether with hypoxia or hypercapnia Status: Acute Assessment and Plan: as noted by rapid reponse earlier today fluid removal with HD follow respiratory status (4) Hyperkalemia: Code(s): E87.5 - Hyperkalemia Status: Acute Assessment and Plan: as noted by recent labs possibly due to hyper-catabolic state versus diet versus shortened dialysis treatments (5) Altered mental status: Code(s): R41.82 - Altered mental status, unspecified Status: Acute Assessment and Plan: fluctuating at this time follow mentation (6) Anemia: Code(s): D64.9 - Anemia, unspecified Status: Chronic Assessment and Plan: due to ESRD and possible acute illness Epogen with HD follow H/H (7) Decubitus ulcers: Code(s): L89.90 - Pressure ulcer of unspecified site, unspecified stage Status: Chronic Assessment and Plan: local wound care wound care nurse following (8) Diabetes: Qualifiers: Diabetes mellitus complication detail: with other circulatory complications Diabetes mellitus complication status: with circulatory complication Diabetes mellitus type: type 1 Qualified Code(s): E10.59 - Type 1 diabetes mellitus with other circulatory complications Code(s): E11.9 - Type 2 diabetes mellitus without complications Status: Chronic Assessment and Plan: on Accu-Cheks glycemic control per hospitalist Will continue to follow. Subjective Date/time seen: 01/02/23 17:13 Chart reviewed since last seem -- rapid response earlier today due to altered mental status and hypoxia; given high dose diuretics and transferred to ICU for closer monitoring; tolerating dialysis treatment at the time of my visit (seen on HD at 5:00PM); apparently, he ended his dialysis treatment on Monday early resulting in limited fluid removal. Exam Narrative: General: ill appearing male in NAD Heart: normal S1 and S2; no rub or gallop Lungs: coarse breath sounds Abdomen: bowel sounds positive and soft. Extremities: no cyanosis or clubbing; left AKA and right BKA Skin: warm and dry Objective Data Vital Signs Vital Signs: Vital Signs Temp Pulse Resp BP Pulse Ox O2 Del Method O2 Flow Rate 01/02/23 16:00 98.3 F 116 H 18 134/89 100 01/02/23 14:00 97.7 F 119 H 23 H 158/92 H 97 01/02/23 15:17 121 H 25 H 95 High Flow Therapy with Na 50 01/02/23 14:40 121 H 26 H 01/02/23 13:55 113 H 28 H 01/02/23 12:07 113 H 34 H 172/90 H 99 Nasal Cannula 3 01/02/23 13:17 116 H 23 H 96 High Flow Therapy with Na 60 01/02/23 12:10 115 H 176/88 H 94 01/02/23 12:04 120 H 01/02/23 11:32 97.2 F L 117 H 36 H 175/94 H 93 01/02/23 07:50 114 H 24 H 100 Nasal Cannula 3 01/02/23 08:00 126 H 01/02/23 08:46 114 H 01/02/23 05:59 98 F 114 H 24 H 171/91 H 100 01/02/23 04:00 120 H 01/02/23 01:20 97.2 F L 133 H 26 H 210/103 H 100 Non-Rebrea
[2023-01-02 17:50] LABS: Glucose Point of Care 178 mg/dl (65-105)
[2023-01-02 18:16] LABS: Vancomycin Random 14.6 ug/mL (10-20)
[2023-01-02] MEDS: ALBUMIN HUMAN 25% 12.5 GM/50ML 50 ML IVPB (19:04)
[2023-01-02] MEDS: EPOETIN ALFA-EPBX 10,000 UNITS/ML VIAL 10000 UNITS IV PUSH (19:05)
--- NOTE | 2023-01-02 19:27 | PC.NURSE ---
This patient, Ish Corley, was received from [facility] on 01/02/23 at 1245. Patient/family oriented to unit policies and routines
[2023-01-02] MEDS: ERTAPENEM SODIUM 0.5 GM in SODIUM CHLORIDE 0.9% IV 50 ML IVPB (21:11)
[2023-01-02] MEDS: CINACALCET 30 MG TABLET 90 MG PO (21:15)
[2023-01-02] MEDS: calcitrioL 0.25 MCG CAPSULE 1.25 MCG PO (21:15)
[2023-01-02 21:50] LABS: Anion Gap 7 mmol/L (8-16); Blood Urea Nitrogen 27 mg/dL (9-20); Calcium 8.3 mg/dL (8.4-10.2); Carbon Dioxide 31 mmol/L (22-30); Chloride 95 mmol/L (98-107); Estimated Glomerular Filt Rate 45; Glucose 213 mg/dL (65-110); Potassium 3.2 mmol/L (3.4-5.0); Sodium 133 mmol/L (137-145)
[2023-01-03] VITALS (35 sets, daily range): BP systolic 130–168; BP diastolic 71–95; PULSE 96–112; RESP 16–29; TEMP 31.9–37.1; O2SAT 90–100
[2023-01-03 05:04] LABS: Basophils Absolute Auto 0.1 K/mm3 (0.0-0.1); Eosinophils Absolute Auto 0.1 K/mm3 (0-0.3); Eosinophils Percent Auto 0.9 % (0-4.4); Hematocrit 25.5 % (42.0-52.0); Hemoglobin 7.7 g/dL (14.0-18.0); Immature Granulocyte Absolute 0.11 K/mm3 (0.00-0.031); Immature Granulocyte Percent A 0.9 % (0-0.5); Lymphocytes Absolute Auto 1.18 K/mm3 (0.9-3.2); Lymphocytes Percent Auto 9.3 % (18.3-44.2); Mean Corpuscular HGB Conc 30.2 g/dl (32-36); Mean Corpuscular Hemoglobin 29.4 pg (26-34); Mean Corpuscular Volume 97.3 fl (80-100); Monocytes Absolute Auto 0.9 K/mm3 (0.1-0.6); Monocytes Percent Auto 6.9 % (2.6-8.5); Neutrophils Absolute Auto 10.2 K/mm3 (1.3-6.7); Platelet Count Result 465 k/mm3 (150-375); Red Blood Count 2.62 M/mm3 (4.6-6.20); Red Cell Distribution Width 19.1 % (11.5-14.5); White Blood Count 12.6 K/mm3 (4.5-10.0)
[2023-01-03 05:18] LABS: Alanine Aminotransferase 11 U/L (6-50); Albumin Level 2.8 g/dL (3.5-5.1); Alkaline Phosphatase 102 U/L (38-126); Anion Gap 11 mmol/L (8-16); Aspartate Amino Transferase 25 U/L (17-59); Bilirubin,Total 0.5 mg/dL (0.2-1.3); Blood Urea Nitrogen 35 mg/dL (9-20); Calcium 8.6 mg/dL (8.4-10.2); Carbon Dioxide 27 mmol/L (22-30); Chloride 98 mmol/L (98-107); Estimated Glomerular Filt Rate 33; Glucose 432 mg/dL (65-110); Magnesium 1.9 mg/dL (1.6-2.3); Phosphorus 3.9 mg/dL (2.5-4.5); Potassium 3.7 mmol/L (3.4-5.0); Sodium 136 mmol/L (137-145)
[2023-01-03] MEDS: CENTRAL LINE FLUSH 10 ML IV PUSH ×4 (05:23→21:27)
--- NOTE | 2023-01-03 05:31 | PC.NURSE ---
0530 Dr Ponce informed of blood glucose of 432. Orders received.
[2023-01-03] MEDS: INSULIN ASPART (*BKC) 100 UNITS/ML SUB-Q ×6 (05:40→17:15)
[2023-01-03] MEDS: SOD HYPOCHLORITE 1/4 STRENGTH 473 ML 1 APPLIC TOPICAL ×2 (08:29→21:26)
[2023-01-03] MEDS: TICAGRELOR 60 MG TABLET PO (08:29)
[2023-01-03] MEDS: carvediloL 3.125 MG TABLET PO ×2 (08:29→21:09)
[2023-01-03] MEDS: ATORVASTATIN 40 MG TABLET 80 MG PO (08:29)
[2023-01-03] MEDS: TOLNAFTATE 1% POWDER 45 GM BTL 1 APPLIC TOPICAL ×2 (08:29→21:26)
[2023-01-03] MEDS: PANTOPRAZOLE SODIUM IV 40 MG VIAL IV PUSH (08:29)
[2023-01-03] MEDS: ASPIRIN 325 MG TABLET PO (08:29)
[2023-01-03] MEDS: INSULIN GLARGINE (*BKC) 100 UNITS/ML 30 UNITS SUB-Q (08:33)
[2023-01-03] MEDS: VITAMIN B CMPLX/VIT C/FOLIC AC 1 CAPSULE 1 CAP PO (08:52)
--- NOTE | 2023-01-03 09:24 | PM.PNNEP ---
Progress Note: A&P Assessment and Plan (1) End stage renal disease: Code(s): N18.6 - End stage renal disease Status: Chronic Assessment and Plan: HD yesterday and continue // schedule follow electrolytes, volume status, and clearance suspect his limited fluid removal and shortened HD treatment (patient ended treatment early) on Monday responsible to current situation... (2) Bacteremia: Code(s): R78.81 - Bacteremia Status: Acute Assessment and Plan: staph bacteremia on 12/26 by admission cultures repeat blood cultures - growth to date. on Vancomycin - will need this for 6 weeks source -- decubitus ulcers versus tunneled HD catheter versus something else? HD catheter was recently exchanged wounds undergoing dressing changes still on ertapenem as well (3) Acute respiratory failure: Code(s): J96.00 - Acute respiratory failure, unspecified whether with hypoxia or hypercapnia Status: Acute Assessment and Plan: as noted by rapid reponse on 01/02/23 fluid removal with HD plan another HD treatment today with fluid removal as tolerated follow respiratory status (4) Hyperkalemia: Code(s): E87.5 - Hyperkalemia Status: Acute Assessment and Plan: resolved possibly due to hyper-catabolic state versus diet versus shortened dialysis treatments last week (5) Altered mental status: Code(s): R41.82 - Altered mental status, unspecified Status: Acute Assessment and Plan: appears better follow mentation (6) Anemia: Code(s): D64.9 - Anemia, unspecified Status: Chronic Assessment and Plan: due to ESRD and possible acute illness Epogen with HD follow H/H (7) Decubitus ulcers: Code(s): L89.90 - Pressure ulcer of unspecified site, unspecified stage Status: Chronic Assessment and Plan: local wound care wound care nurse following (8) Diabetes: Qualifiers: Diabetes mellitus complication detail: with other circulatory complications Diabetes mellitus complication status: with circulatory complication Diabetes mellitus type: type 1 Qualified Code(s): E10.59 - Type 1 diabetes mellitus with other circulatory complications Code(s): E11.9 - Type 2 diabetes mellitus without complications Status: Chronic Assessment and Plan: on Accu-Cheks glycemic control per hospitalist Will continue to follow. Subjective Date/time seen: 01/03/23 09:24 Tolerated dialysis treatment last night but issues/problems with hypotension which limited fluid removal; mentation seems to be doing better but still requiring oxygen support; no other acute issues/events overnight or this morning. Exam Narrative: General: ill appearing male in NAD Heart: normal S1 and S2; no rub or gallop Lungs: coarse breath sounds Abdomen: bowel sounds positive and soft. Extremities: no cyanosis or clubbing; left AKA and right BKA Skin: wound with dressings in place Objective Data Vital Signs Vital Signs: Vital Signs Temp Pulse Resp BP Pulse Ox O2 Del Method O2 Flow Rate 01/03/23 08:00 105 H 01/03/23 08:00 98.2 F 105 H 25 H 146/76 H 96 01/03/23 08:00 92 High Flow Therapy with Na 30 01/03/23 08:29 105 H 01/03/23 08:13 104 H 22 H 92 High Flow Therapy with Na 30 01/03/23 06:00 98.3 F 102 H 22 H 136/78 99 01/03/23 06:00 108 H 01/03/23 04:00 102 H 24 H 100 High Flow Therapy with Na 30 01/03/23 04:00 102 H 01/03/23 04:00 98 F 102 H 24 H 151/82 H 100 01/02/23 22:45 106 H 97 High Flow Therapy with Na 40 01/03/23 02:00 105 H 01/03/23 02:00 98.2 F 105 H 20 155/84 H 100 01/03/23 00:00 103 H 20 100 High Flow Therapy with Na 30 01/03/23 00:00 103 H 01/03/23 00:00 98 F 103 H 20 136/86 100 01/02/23 20:22 107 H 115/74 01/02/23 20:30
--- NOTE | 2023-01-03 09:24 | P.PNNP_ITS ---
Progress Note: A&P Assessment and Plan (1) End stage renal disease: Code(s): N18.6 - End stage renal disease Status: Chronic Assessment and Plan: * HD yesterday and continue // schedule * follow electrolytes, volume status, and clearance * suspect his limited fluid removal and shortened HD treatment (patient ended treatment early) on Monday responsible to current situation... (2) Bacteremia: Code(s): R78.81 - Bacteremia Status: Acute Assessment and Plan: * staph bacteremia on 12/26 by admission cultures * repeat blood cultures - growth to date. * on Vancomycin - will need this for 6 weeks * source -- decubitus ulcers versus tunneled HD catheter versus something else? * HD catheter was recently exchanged * wounds undergoing dressing changes * still on ertapenem as well (3) Acute respiratory failure: Code(s): J96.00 - Acute respiratory failure, unspecified whether with hypoxia or hypercapnia Status: Acute Assessment and Plan: * as noted by rapid reponse on 01/02/23 * fluid removal with HD * plan another HD treatment today with fluid removal as tolerated * follow respiratory status (4) Hyperkalemia: Code(s): E87.5 - Hyperkalemia Status: Acute Assessment and Plan: * resolved * possibly due to hyper-catabolic state versus diet versus shortened dialysis treatments last week (5) Altered mental status: Code(s): R41.82 - Altered mental status, unspecified Status: Acute Assessment and Plan: * appears better * follow mentation (6) Anemia: Code(s): D64.9 - Anemia, unspecified Status: Chronic Assessment and Plan: * due to ESRD and possible acute illness * Epogen with HD * follow H/H (7) Decubitus ulcers: Code(s): L89.90 - Pressure ulcer of unspecified site, unspecified stage Status: Chronic Assessment and Plan: * local wound care * wound care nurse following (8) Diabetes: Qualifiers: Diabetes mellitus complication detail: with other circulatory complications Diabetes mellitus complication status: with circulatory complication Diabetes mellitus type: type 1 Qualified Code(s): E10.59 - Type 1 diabetes mellitus with other circulatory complications Code(s): E11.9 - Type 2 diabetes mellitus without complications Status: Chronic Assessment and Plan: * on Accu-Cheks * glycemic control per hospitalist Will continue to follow. Subjective Date/time seen: 01/03/23 09:24 Tolerated dialysis treatment last night but issues/problems with hypotension which limited fluid removal; mentation seems to be doing better but still requiring oxygen support; no other acute issues/events overnight or this morn ing. Exam Narrative: General: ill appearing male in NAD Heart: normal S1 and S2; no rub or gallop Lungs: coarse breath sounds Abdomen: bowel sounds positive and soft. Extremities: no cyanosis or clubbing; left AKA and right BKA Skin: wound with dressings in place Objective Data Vital Signs Vital Signs: Vital Signs Temp Pulse Resp BP Pulse Ox O2 Del Method O2 Flow Rate 01/03/23 08:00 105 H 01/03/23 08:00 98.2 F 105 H 25 H 146/76 H 96 01/03/23 08:00 92 High Flow Therapy with Na 30 01/03/23 08:29 105 H
--- NOTE | 2023-01-03 11:01 | PCFNICU ---
ICU Rounding Note: Pt current nutrition is DBCC with 1800 ml FR. Last recorded weight is 47.2 kg. Bowel Motility:colostomy Labs Reviewed:Glu 432,GFR 33,BUN 35, Cr 2.10,Na 136, Alb 2.8 Meds Noted:Protonix, Lantus,NovoLog, Lipitor Skin: IV Pressure Ulcer-Left hip and Saccum Additional Notes: Patient eating greater than 75% with assist of DBCC diet. Diet supplements of Nepro providing an additional 425 kcals and 19 gms protein. Rafal BID for wound healing providing 90 kcals and 2.5 gms protein. Agree with diet orders. Following daily in ICU rounds. Will reassess every 5 days.
--- NOTE | 2023-01-03 11:13 | WPDINTPN ---
Progress Note: A&P Assessment and Plan (1) Encephalopathy: Code(s): G93.40 - Encephalopathy, unspecified Status: Acute Assessment and Plan: 01/02/2023: Encephalopathy could be related to uremia, hypoxemia, infection, stroke -01/02: CT brain noncontrast: No intracranial hemorrhage, mass or acute infarct, atrophy and chronic white matter changes, stable left frontal lobe encephalomalacia -encephalopathy improving, patient more awake and alert after dialysis, which makes me think that it was more uremic and also related to hypoxemia secondary to pulmonary vascular congestion as seen on chest x-ray -continue supplemental oxygen -discussed with kiln burner helper regarding dialyzing patient again today -ammonia level is normal (2) Respiratory failure: Code(s): J96.90 - Respiratory failure, unspecified, unspecified whether with hypoxia or hypercapnia Status: Acute Assessment and Plan: Patient replaced on Airvo for adequate oxygenation -if patient's oxygenation decreases goes into impending respiratory failure due to volume overload, have a low threshold of intubating the patient -01/02 chest x-ray shows Probable mild to moderate pulmonary edema pattern, with worsening involvement in the right lower lobe, and improvement in the right upper lobe, since prior exam -continue Airvo with adequate O2 sats, wean FiO2 to maintain O2 sats greater than 92% -have requested Nephrology to dialyze the patient again today -continue bronchodilators (3) Sepsis: Code(s): A41.9 - Sepsis, unspecified organism Status: Acute Assessment and Plan: 01/02: Lactic acid is normal, patient was tachycardic, hypothermic, -blood pressures have been stable -he does have a large sacral decubitus ulcer -12/26/2022 blood cultures are positive for Staph epidermidis and Staph hominis 2/2 bottles -12/27/2022 respiratory cultures grew ESBL E coli -12/27/2022 MRSA screen was negative -patient currently on vancomycin and ertapenem -12/29/2022 repeat blood cultures: Preliminary report is negative x2 bottles -12/27/2022 Echocardiogram did not show any vegetations. He obviously may need julieth if bacteremia persists -Patient is not sure when he received the tunneled dialysis catheter and where it was done. He states it was probably done at [facility] few months ago but I do not see any operative note regarding tunneled dialysis catheter placement going back last year. -wound care team is following the patient (4) Hyperkalemia: Code(s): E87.5 - Hyperkalemia Status: Acute Assessment and Plan: 01/02/2023 potassium was 6.0 -will treat with sodium bicarb, albuterol, insulin and D50, rectal Kayexalate -hyperkalemia has resolved with treatment as above and dialysis (5) End stage renal disease: Code(s): N18.6 - End stage renal disease Status: Chronic Assessment and Plan: Patient has a history of end-stage renal disease, on dialysis -he is very sensitive to volume overload and has been admitted to the hospital multiple times for the same reason -chest x-ray showed moderate diffuse pulmonary edema -will benefit from dialysis again today (6) Pulmonary edema: Code(s): J81.1 - Chronic pulmonary edema Status: Acute Assessment and Plan: Continue dialysis per Nephrology (7) Decubitus ulcer of sacral area: Code(s): L89.159 - Pressure ulcer of sacral region, unspecified stage Status: Chronic Assessment and Plan: Wound care evaluated the patient and recommendations for wound care appreciated (8) IDDM (insulin dependent diabetes mellitus): Status: Chronic Assessment and Plan: Continue sliding scale insulin Accu-Chek On Lantus (9) Anemia: Code(s): D64.9 - Anemia, unspecified Status: Acute Assessment and Plan: Hemoglobin has remained stable since 12/28 -anemia is likely multifactorial -patient is on Epogen per Nephrology -status pos
[2023-01-03 11:48] LABS: Glucose Point of Care 263 mg/dl (65-105)
[2023-01-03 11:53] LABS: Glucose Point of Care 357 mg/dl (65-105)
[2023-01-03] MEDS: ALBUTEROL SULFATE NEB 2.5 MG/3 ML INH INHALATION ×3 (12:26→20:16)
--- NOTE | 2023-01-03 13:43 | PCSTNOTE ---
Therapist spoke with Fallon; patient was offered breakfast by nursing who stated patient did fine and exhibited no clinical signs of aspiration, therefore Bedside Swallow Order is discontinued.
[2023-01-03] MEDS: ERTAPENEM SODIUM 0.5 GM in SODIUM CHLORIDE 0.9% IV 50 ML IVPB (16:45)
[2023-01-03] MEDS: EPOETIN ALFA-EPBX 10,000 UNITS/ML VIAL 10000 UNITS IV PUSH (16:49)
[2023-01-03 17:49] LABS: Glucose Point of Care 114 mg/dl (65-105)
--- NOTE | 2023-01-03 18:17 | PC.NURSE ---
This patient, Ish Corley, was transferred to [ [id number]] on 01/03/23 at 1817. Personal belongings sent with patient. Report given to [ADILENE Colon @ [id number] ]. Appropriate documentation sent with patient.
[2023-01-03 20:33] LABS: Glucose Point of Care 140 mg/dl (65-105)
[2023-01-03] MEDS: LORazepam (*CRX) 1 MG TABLET PO (22:32)
[2023-01-04] VITALS (35 sets, daily range): BP systolic 113–197; BP diastolic 63–107; PULSE 92–123; RESP 16–32; TEMP 36.5–37.7; O2SAT 91–96
[2023-01-04] MEDS: ALBUTEROL SULFATE NEB 2.5 MG/3 ML INH INHALATION ×4 (00:23→19:53)
--- NOTE | 2023-01-04 04:06 | PCRCNOTE ---
per RN request, RT is not to wake pt for 0400 UPD treatment. next available UPD is at 0800.
[2023-01-04] MEDS: CENTRAL LINE FLUSH 10 ML IV PUSH ×4 (05:20→20:16)
[2023-01-04 05:43] LABS: Basophils Absolute Auto 0.1 K/mm3 (0.0-0.1); Basophils Percent Auto 0.6 % (0.2-1.2); Eosinophils Absolute Auto 0.3 K/mm3 (0-0.3); Eosinophils Percent Auto 2.2 % (0-4.4); Hematocrit 26.2 % (42.0-52.0); Hemoglobin 7.9 g/dL (14.0-18.0); Immature Granulocyte Absolute 0.14 K/mm3 (0.00-0.031); Lymphocytes Absolute Auto 1.89 K/mm3 (0.9-3.2); Lymphocytes Percent Auto 14.1 % (18.3-44.2); Mean Corpuscular HGB Conc 30.2 g/dl (32-36); Mean Corpuscular Hemoglobin 29.5 pg (26-34); Mean Corpuscular Volume 97.8 fl (80-100); Mean Platelet Volume 9.3 fl (7.4-10.4); Monocytes Absolute Auto 1.3 K/mm3 (0.1-0.6); Neutrophils Absolute Auto 9.7 K/mm3 (1.3-6.7); Neutrophils Percent Auto 72.1 % (45.5-73.1); Nucleated Red Blood Cells Perc 0.1 % (0.0-0.2); Platelet Count Result 503 k/mm3 (150-375); Red Blood Count 2.68 M/mm3 (4.6-6.20); Red Cell Distribution Width 19.7 % (11.5-14.5); White Blood Count 13.4 K/mm3 (4.5-10.0)
[2023-01-04 05:54] LABS: Alanine Aminotransferase 11 U/L (6-50); Albumin Level 2.8 g/dL (3.5-5.1); Alkaline Phosphatase 97 U/L (38-126); Anion Gap 4 mmol/L (8-16); Aspartate Amino Transferase 23 U/L (17-59); Bilirubin,Total 0.3 mg/dL (0.2-1.3); Blood Urea Nitrogen 33 mg/dL (9-20); Calcium 8.8 mg/dL (8.4-10.2); Carbon Dioxide 33 mmol/L (22-30); Chloride 101 mmol/L (98-107); Estimated Glomerular Filt Rate 39; Glucose 98 mg/dL (65-110); Magnesium 1.9 mg/dL (1.6-2.3); Phosphorus 3.1 mg/dL (2.5-4.5); Potassium 3.8 mmol/L (3.4-5.0); Sodium 138 mmol/L (137-145)
[2023-01-04 07:56] LABS: Glucose Point of Care 89 mg/dl (65-105)
[2023-01-04] MEDS: VITAMIN B CMPLX/VIT C/FOLIC AC 1 CAPSULE 1 CAP PO (08:53)
[2023-01-04] MEDS: ASPIRIN 325 MG TABLET PO (08:53)
[2023-01-04] MEDS: TICAGRELOR 60 MG TABLET PO (08:53)
[2023-01-04] MEDS: carvediloL 3.125 MG TABLET PO ×2 (08:53→20:15)
[2023-01-04] MEDS: PANTOPRAZOLE SODIUM IV 40 MG VIAL IV PUSH (08:53)
[2023-01-04] MEDS: ATORVASTATIN 40 MG TABLET 80 MG PO (08:53)
[2023-01-04] MEDS: SOD HYPOCHLORITE 1/4 STRENGTH 473 ML 1 APPLIC TOPICAL (08:54)
[2023-01-04] MEDS: INSULIN GLARGINE (*BKC) 100 UNITS/ML 30 UNITS SUB-Q (08:59)
[2023-01-04] MEDS: LORazepam (*CRX) 1 MG TABLET PO ×2 (08:59→20:15)
[2023-01-04] MEDS: TOLNAFTATE 1% POWDER 45 GM BTL 1 APPLIC TOPICAL (09:08)
--- NOTE | 2023-01-04 11:24 | PM.IMPN ---
Progress Note: A&P Assessment and Plan (1) Encephalopathy: Code(s): G93.40 - Encephalopathy, unspecified Status: Acute Assessment and Plan: Likely related from uremia. hemodialysis resumed (2) Respiratory failure: Code(s): J96.90 - Respiratory failure, unspecified, unspecified whether with hypoxia or hypercapnia Status: Acute Assessment and Plan: Patient is on room air currently (3) Sepsis: Code(s): A41.9 - Sepsis, unspecified organism Status: Acute Assessment and Plan: 01/02: Lactic acid is normal, patient was tachycardic, hypothermic, -blood pressures have been stable -he does have a large sacral decubitus ulcer -12/26/2022 blood cultures are positive for Staph epidermidis and Staph hominis 2/2 bottles -12/27/2022 respiratory cultures grew ESBL E coli -12/27/2022 MRSA screen was negative -patient currently on vancomycin and ertapenem -12/29/2022 repeat blood cultures: Preliminary report is negative x2 bottles -12/27/2022 Echocardiogram did not show any vegetations. He obviously may need julieth if bacteremia persists -Patient is not sure when he received the tunneled dialysis catheter and where it was done. He states it was probably done at [facility] few months ago but I do not see any operative note regarding tunneled dialysis catheter placement going back last year. -wound care team is following the patient (4) Hyperkalemia: Code(s): E87.5 - Hyperkalemia Status: Acute Assessment and Plan: 01/02/2023 potassium was 6.0 -will treat with sodium bicarb, albuterol, insulin and D50, rectal Kayexalate -hyperkalemia has resolved with treatment as above and dialysis (5) End stage renal disease: Code(s): N18.6 - End stage renal disease Status: Chronic Assessment and Plan: Patient has a history of end-stage renal disease, on dialysis -he is very sensitive to volume overload and has been admitted to the hospital multiple times for the same reason -chest x-ray showed moderate diffuse pulmonary edema -will benefit from dialysis again today (6) Pulmonary edema: Code(s): J81.1 - Chronic pulmonary edema Status: Acute Assessment and Plan: Continue dialysis per Nephrology (7) Decubitus ulcer of sacral area: Code(s): L89.159 - Pressure ulcer of sacral region, unspecified stage Status: Chronic Assessment and Plan: Wound care evaluated the patient and recommendations for wound care appreciated (8) IDDM (insulin dependent diabetes mellitus): Status: Chronic Assessment and Plan: Continue sliding scale insulin Accu-Chek On Lantus (9) Anemia: Code(s): D64.9 - Anemia, unspecified Status: Acute Assessment and Plan: Hemoglobin has remained stable since 12/28 -anemia is likely multifactorial -patient is on Epogen per Nephrology -status post IV iron 12/27 Patient was transfused 1 unit PRBC Continue IV PPI Continue aspirin and Brilinta. Continue Monitoring hemoglobin which has been stable Subjective Date/time seen: 01/04/23 11:24 No new complaints Exam Narrative: General: Patient is less responsive, in no acute distress Lungs/Chest: Coarse breath sounds bilaterally, decreased in bases, adequate air entry. Hemodialysis tunnel catheter in right anterior chest, left IJ central venous catheter Cardiac: Regular rate and rhythm, S1-S2 is normal Abdomen: Hypoactive bowel sounds. Soft. NT. ND. Left lower quadrant colostomy with greenish yellow stool output Extremities: Bilateral BKA, : Baptiste in place Neurologic: Patient awake, alert, answers to questions with speech is also tangential. Follows commands. Skin: Large decubitus wound in sacral area and hip Objective Data Vital Signs Vital Signs: Vital Signs - 24 hr 01/03/23 11:33 01/03/23 12:00 01/03/23 12:25 Temperature 98.4 F Pulse Rate 99 101 H 103 H Respiratory Rate 27 H 22 H Blood Pressure
[2023-01-04 11:28] LABS: Glucose Point of Care 152 mg/dl (65-105)
[2023-01-04] MEDS: EPOETIN ALFA-EPBX 10,000 UNITS/ML VIAL 10000 UNITS IV PUSH (11:49)
[2023-01-04] MEDS: ALBUMIN HUMAN 25% 12.5 GM/50ML 50 ML IVPB (11:52)
[2023-01-04] MEDS: INSULIN ASPART (*BKC) 100 UNITS/ML SUB-Q (12:51)
--- NOTE | 2023-01-04 12:55 | P.PNNP_ITS ---
Progress Note: A&P Assessment and Plan (1) End stage renal disease: Code(s): N18.6 - End stage renal disease Status: Chronic Assessment and Plan: * HD today and continue M/W/ schedule * follow electrolytes, volume status, and clearance (2) Bacteremia: Code(s): R78.81 - Bacteremia Status: Acute Assessment and Plan: * staph bacteremia on 12/26 by admission cultures * repeat blood cultures - growth to date. * on Vancomycin - will need this for 6 weeks * source -- decubitus ulcers versus tunneled HD catheter versus something else? * HD catheter was recently exchanged * wounds undergoing dressing changes * still on ertapenem as well (3) Acute respiratory failure: Code(s): J96.00 - Acute respiratory failure, unspecified whether with hypoxia or hypercapnia Status: Acute Assessment and Plan: * as noted by rapid reponse on 01/02/23 * fluid removal with HD * follow respiratory status (4) Hyperkalemia: Code(s): E87.5 - Hyperkalemia Status: Acute Assessment and Plan: * resolved * possibly due to hyper-catabolic state versus diet versus shortened dialysis treatments last week (5) Altered mental status: Code(s): R41.82 - Altered mental status, unspecified Status: Acute Assessment and Plan: * appears better * follow mentation (6) Anemia: Code(s): D64.9 - Anemia, unspecified Status: Chronic Assessment and Plan: * due to ESRD and possible acute illness * Epogen with HD * follow H/H (7) Decubitus ulcers: Code(s): L89.90 - Pressure ulcer of unspecified site, unspecified stage Status: Chronic Assessment and Plan: * local wound care * wound care nurse following (8) Diabetes: Qualifiers: Diabetes mellitus complication detail: with other circulatory complications Diabetes mellitus complication status: with circulatory complication Diabetes mellitus type: type 1 Qualified Code(s): E10.59 - Type 1 diabetes mellitus with other circulatory complications Code(s): E11.9 - Type 2 diabetes mellitus without complications Status: Chronic Assessment and Plan: * on Accu-Cheks * glycemic control per hospitalist Will continue to follow. Subjective Date/time seen: 01/04/23 12:55 Tolerating hemodialysis treatment at the time of my visit (seen on HD at 12:45PM); mentation seems relatively stable; tolerated short HD treatment yesterday as well; he was asking to end his treatment early but both myself, HD nurse, and at bedside were able to convince him to stay on HD treatment given events earlier this week; no apparent distress voiced currently. Exam Narrative: General: ill appearing male in NAD Heart: normal S1 and S2; no rub or gallop Lungs: coarse breath sounds Abdomen: bowel sounds positive and soft. Extremities: no cyanosis or clubbing; left AKA and right BKA Skin: wound with dressings in place Objective Data Vital Signs Vital Signs: Vital Signs Temp Pulse Resp BP Pulse Ox O2 Del Method O2 Flow Rate 01/04/23 12:40 110 H 170/106 H 01/04/23 12:20 109 H 155/99 H 01/04/23 12:08 104 H 22 H 01/04/23 11:58 101 H 22 H 01/04/23 11:58 101 H 22 H 94 Room Air 01/04/23 11:40 107 H 153/94 H 0
--- NOTE | 2023-01-04 12:55 | PM.PNNEP ---
Progress Note: A&P Assessment and Plan (1) End stage renal disease: Code(s): N18.6 - End stage renal disease Status: Chronic Assessment and Plan: HD today and continue M/W/ schedule follow electrolytes, volume status, and clearance (2) Bacteremia: Code(s): R78.81 - Bacteremia Status: Acute Assessment and Plan: staph bacteremia on 12/26 by admission cultures repeat blood cultures - growth to date. on Vancomycin - will need this for 6 weeks source -- decubitus ulcers versus tunneled HD catheter versus something else? HD catheter was recently exchanged wounds undergoing dressing changes still on ertapenem as well (3) Acute respiratory failure: Code(s): J96.00 - Acute respiratory failure, unspecified whether with hypoxia or hypercapnia Status: Acute Assessment and Plan: as noted by rapid reponse on 01/02/23 fluid removal with HD follow respiratory status (4) Hyperkalemia: Code(s): E87.5 - Hyperkalemia Status: Acute Assessment and Plan: resolved possibly due to hyper-catabolic state versus diet versus shortened dialysis treatments last week (5) Altered mental status: Code(s): R41.82 - Altered mental status, unspecified Status: Acute Assessment and Plan: appears better follow mentation (6) Anemia: Code(s): D64.9 - Anemia, unspecified Status: Chronic Assessment and Plan: due to ESRD and possible acute illness Epogen with HD follow H/H (7) Decubitus ulcers: Code(s): L89.90 - Pressure ulcer of unspecified site, unspecified stage Status: Chronic Assessment and Plan: local wound care wound care nurse following (8) Diabetes: Qualifiers: Diabetes mellitus complication detail: with other circulatory complications Diabetes mellitus complication status: with circulatory complication Diabetes mellitus type: type 1 Qualified Code(s): E10.59 - Type 1 diabetes mellitus with other circulatory complications Code(s): E11.9 - Type 2 diabetes mellitus without complications Status: Chronic Assessment and Plan: on Accu-Cheks glycemic control per hospitalist Will continue to follow. Subjective Date/time seen: 01/04/23 12:55 Tolerating hemodialysis treatment at the time of my visit (seen on HD at 12:45PM); mentation seems relatively stable; tolerated short HD treatment yesterday as well; he was asking to end his treatment early but both myself, HD nurse, and at bedside were able to convince him to stay on HD treatment given events earlier this week; no apparent distress voiced currently. Exam Narrative: General: ill appearing male in NAD Heart: normal S1 and S2; no rub or gallop Lungs: coarse breath sounds Abdomen: bowel sounds positive and soft. Extremities: no cyanosis or clubbing; left AKA and right BKA Skin: wound with dressings in place Objective Data Vital Signs Vital Signs: Vital Signs Temp Pulse Resp BP Pulse Ox O2 Del Method O2 Flow Rate 01/04/23 12:40 110 H 170/106 H 01/04/23 12:20 109 H 155/99 H 01/04/23 12:08 104 H 22 H 01/04/23 11:58 101 H 22 H 01/04/23 11:58 101 H 22 H 94 Room Air 01/04/23 11:40 107 H 153/94 H 01/04/23 11:20 113 H 167/92 H 01/04/23 11:00 112 H 173/107 H 01/04/23 10:40 114 H 172/97 H 01/04/23 12:00 105 H 145/89 H 01/04/23 10:28 112 H 184/105 H 01/04/23 10:20 99.0 F 113 H 16 164/93 H 01/04/23 08:00 95 Nasal Cannula 2 01/04/23 08:53 103 H 01/04/23 07:25 103 H 18 01/04/23 07:15 102 H 20 01/04/23 07:08 97.9 F 107 H 18 173/85 H 95 01/04/23 00:00 97.7 F 106 H 18 185/90 H 95 01/03/23 20:00 92 Nasal Cannula 2 01/04/23 00:23 101 H 20 01/03/23 20:27 112 H 20 01/03/23 20:21 92 Nasal Cannula 3 12/15
[2023-01-04] MEDS: hydrALAZINE HCL 20 MG/ML VIAL 10 MG IV PUSH (15:14)
[2023-01-04 15:40] LABS: Glucose Point of Care 60 mg/dl (65-105)
[2023-01-04] MEDS: GLUCOSE ORAL GEL 15 GM OF GLUCSE IN 37.5 GM TUBE PO (16:08)
[2023-01-04 16:18] LABS: Glucose Point of Care 62 mg/dl (65-105)
[2023-01-04 16:29] LABS: Glucose Point of Care 84 mg/dl (65-105)
[2023-01-04] MEDS: ERTAPENEM SODIUM 0.5 GM in SODIUM CHLORIDE 0.9% IV 50 ML IVPB (18:00)
[2023-01-04] MEDS: METOCLOPRAMIDE HCL INJ 10 MG/2 ML VIAL 5 MG IV PUSH (18:02)
--- NOTE | 2023-01-04 19:49 | PC.NURSE ---
reported labored breathing, informed CONSULTING NURSE Giovanni, pt assess with labored breathing, wet sounding, bp 197/93, hr 120, RR 32, 91% RA will not keep o2 on reports, ABG, cbc, and bmp stat ordered. CONSULTING NURSE Giovanni to assess pt at bedside.
[2023-01-04 20:09] LABS: Vancomycin Random 13.1 ug/mL (10-20)
[2023-01-04 20:16] LABS: Alveolar/Arterial O2 Gradient 78.5 mmHg; Base Excess ABG 2.2 mEq/l (+/-2.0); Fractional Inspired Oxygen 26 %; HCO3 ABG 26.1 mEq/l (22.0-26.0); Oxyhemoglobin 90.3 % THb (90.0-100.0); PCO2 ABG 37.8 mmHg (35.0-45.0); PO2 ABG 62.1 mmHg (80.0-100.0); PO2 FiO2 Ratio Arterial Blood 2.39 %; Total Hemoglobin 10.2 g/dL (12.0-18.0); pH ABG 7.457 (7.350-7.450)
[2023-01-04 20:17] LABS: Device NASAL CANNULA; Liters per Minute 1.5 LPM; Modified Allen's Test Pass; Site Drawn RIGHT RADIAL
[2023-01-04] MEDS: METOPROLOL TARTRATE INJ 5 MG/5 ML VIAL IV PUSH (20:22)
--- NOTE | 2023-01-04 20:23 | PC.NURSE ---
stat bmp and cbc sent to lab for analysis
[2023-01-04 20:24] LABS: Hematocrit 29.5 % (42.0-52.0); Hemoglobin 8.9 g/dL (14.0-18.0); Mean Corpuscular HGB Conc 30.2 g/dl (32-36); Mean Corpuscular Hemoglobin 30.1 pg (26-34); Mean Corpuscular Volume 99.7 fl (80-100); Mean Platelet Volume 9.4 fl (7.4-10.4); Platelet Count Result 534 k/mm3 (150-375); Red Blood Count 2.96 M/mm3 (4.6-6.20); Red Cell Distribution Width 20.2 % (11.5-14.5); White Blood Count 19.5 K/mm3 (4.5-10.0)
[2023-01-04 20:40] LABS: Anion Gap 6 mmol/L (8-16); Blood Urea Nitrogen 18 mg/dL (9-20); Calcium 8.7 mg/dL (8.4-10.2); Carbon Dioxide 29 mmol/L (22-30); Chloride 104 mmol/L (98-107); Estimated Glomerular Filt Rate 52; Glucose 145 mg/dL (65-110); Potassium 4.3 mmol/L (3.4-5.0); Sodium 139 mmol/L (137-145)
[2023-01-04] MEDS: ACETAMINOPHEN 325 MG TABLET 650 MG PO (20:48)
--- NOTE | 2023-01-04 21:02 | PC.NURSE ---
pt aspiration risk NPO and bedside swallow study ordered per LUMBER HANDLER Giovanni
[2023-01-04 22:22] LABS: Glucose Point of Care 143 mg/dl (65-105)
[2023-01-05] VITALS (40 sets, daily range): BP systolic 74–191; BP diastolic 55–110; PULSE 85–120; RESP 12–24; TEMP 36.6–38.2; O2SAT 92–100
[2023-01-05] MEDS: ALBUTEROL SULFATE NEB 2.5 MG/3 ML INH INHALATION ×5 (00:10→20:00)
[2023-01-05 01:17] LABS: Glucose Point of Care 60 mg/dl (65-105)
[2023-01-05] MEDS: hydrALAZINE HCL 20 MG/ML VIAL 10 MG IV PUSH (01:21)
[2023-01-05] MEDS: DEXTROSE 5% 1,000 ML 1,000 ML 100 ML IVPB (01:21)
[2023-01-05] MEDS: DEXTROSE 50% 25 GM/50 ML SYRINGE IV PUSH (01:21)
[2023-01-05 02:00] LABS: Glucose Point of Care 95 mg/dl (65-105)
[2023-01-05 04:45] LABS: Glucose Point of Care 55 mg/dl (65-105)
--- NOTE | 2023-01-05 05:03 | PM.CCN ---
Critical Care Event Note Summary Code activated: Yes Narrative: code katheryn was called to patient's room after patient went unresponsive and had sinus bradycardia a blood sugar was 50 at that moment. upon arrival chest compressions ongoing bag-valve ventilation ongoing. objective: Unresponsive subjective: unresponsive 57-year-old male well-known to Critical Care Service after multiple hospitalizations, patient is double bilateral lower extremity amputee, end-stage renal disease on hemodialysis, bacteremia, positive blood cultures while on this admission. Patient growing E coli ESBL in sputum Staph hominis and Staph epidermidis in blood. General: Patient unresponsive HEENT: Atraumatic normocephalic, pupils 4 mm in diameter nonreactive bilaterally, extraocular movements intact. Neck supple no JVD no lymphadenopathy respiratory: Diminished breath sounds right base cardiovascular: S1-S2 heard no murmurs rubs or gallops abdomen: Colostomy in place extremities: Bilateral above the knee amputation central nervous system: Unresponsive assessment and plan: 1. Cardiac arrest: ROSC achieved 2. acute hypoxic respiratory failure: Currently on ventilator support, vent management as per Critical Care. 3: Bacteremia: Added vancomycin and Zosyn new set of cultures repeated 4. END-STAGE RENAL DISEASE: ON HEMODIALYSIS 5. DECUBITUS ULCER: LOCAL CARE , [id number] rotation is schedule. 6. INSULIN-DEPENDENT DIABETES MELLITUS: patient had hypoglycemic episode continue to monitor blood sugars 7. Bilateral lower extremity amputation: Above the knee. This case had a high probability of a clinically significant, sudden, or life threatening deterioration of this patient's condition which required my full and direct attention, intervention and personal management. Critical care time: 105 - 134 mins
--- NOTE | 2023-01-05 05:03 | WPDPROCEDUR ---
Procedures Intubation Intubation Date: 01/05/23 Intubation Time: 04:45 Sedative: none Paralytic: other (none) Laryngoscope: fiber optic video scope Assist device used: fiber optic device ET tube size: cuffed Tube secured depth (cm): 26 Tube secured location: lips Tube placement confirmation: visualized tube passing through cords, equal breath sounds bilaterally, no breath sounds over epigastrium and confirmation by capnometry Patient tolerated procedure: no complications Intubation complications: none
--- NOTE | 2023-01-05 05:03 | PDCODEBLUE ---
Code Blue Note Code Blue Note Time Arrived at Code Blue: 4:35 Initial Rhythm on Arrival: Sinus Bradycardia Airway Management: Pt being bagged on arrival Chest Compressions: In process on arrival to bedside Result of Code Blue: Pt transferred to ICU Cardiac Rhythm Post Code: Sinus tachy Code Blue Summary: Epi 1 mg given iv push x 1 Bicarb 1 amp given iv push x 1 Calcium Chloride 1 amp iv push x 1 ROSC achieved
[2023-01-05 05:05] LABS: Glucose Point of Care 209 mg/dl (65-105)
[2023-01-05] MEDS: FENTANYL 2,500MCG/NS250ML(*CRX 2,500 MCG/250 ML BAG IV CONT (05:12)
--- NOTE | 2023-01-05 05:12 | PC.NURSE ---
informed that pt in code blue and CRP started. Pt transferred to ICU.
[2023-01-05] MEDS: MIDAZOLAM 100MG/NS 100ML(*CRX) 100 MG/100 ML BAG IV CONT (05:13)
[2023-01-05 05:22] LABS: Basophils Absolute Auto 0.1 K/mm3 (0.0-0.1); Basophils Percent Auto 0.7 % (0.2-1.2); Eosinophils Absolute Auto 0.2 K/mm3 (0-0.3); Hematocrit 28.2 % (42.0-52.0); Hemoglobin 8.5 g/dL (14.0-18.0); Immature Granulocyte Absolute 0.15 K/mm3 (0.00-0.031); Immature Granulocyte Percent A 0.8 % (0-0.5); Lymphocytes Absolute Auto 1.13 K/mm3 (0.9-3.2); Lymphocytes Percent Auto 5.7 % (18.3-44.2); Mean Corpuscular HGB Conc 30.1 g/dl (32-36); Mean Corpuscular Hemoglobin 30.1 pg (26-34); Mean Platelet Volume 9.1 fl (7.4-10.4); Monocytes Absolute Auto 1.4 K/mm3 (0.1-0.6); Monocytes Percent Auto 7.3 % (2.6-8.5); Neutrophils Absolute Auto 16.6 K/mm3 (1.3-6.7); Neutrophils Percent Auto 84.5 % (45.5-73.1); Nucleated Red Blood Cells Absolute Auto 0.1 K/mm3 (0.0-0.012); Nucleated Red Blood Cells Perc 0.3 % (0.0-0.2); Platelet Count Result 478 k/mm3 (150-375); Red Blood Count 2.82 M/mm3 (4.6-6.20); Red Cell Distribution Width 20.5 % (11.5-14.5); White Blood Count 19.7 K/mm3 (4.5-10.0)
[2023-01-05 05:31] LABS: Lactic Acid Reflex 2.2 mmol/L (0.7-2.0)
[2023-01-05 05:32] LABS: Alanine Aminotransferase 23 U/L (6-50); Albumin Level 2.9 g/dL (3.5-5.1); Alkaline Phosphatase 105 U/L (38-126); Anion Gap 5 mmol/L (8-16); Aspartate Amino Transferase 71 U/L (17-59); Bilirubin,Total 0.4 mg/dL (0.2-1.3); Blood Urea Nitrogen 24 mg/dL (9-20); Calcium 8.4 mg/dL (8.4-10.2); Carbon Dioxide 30 mmol/L (22-30); Chloride 103 mmol/L (98-107); Estimated Glomerular Filt Rate 42; Glucose 208 mg/dL (65-110); Magnesium 1.9 mg/dL (1.6-2.3); Phosphorus 3.9 mg/dL (2.5-4.5); Potassium 4.2 mmol/L (3.4-5.0); Sodium 138 mmol/L (137-145)
[2023-01-05 05:44] LABS: Troponin I 0.034 ng/mL (0.000-0.034)
[2023-01-05 05:45] LABS: INR 1.2; Prothrombin Time 15.1 Seconds (11.1-14.7)
[2023-01-05] MEDS: CENTRAL LINE FLUSH 10 ML IV PUSH ×4 (05:45→21:45)
[2023-01-05 05:46] LABS: Partial Thromboplastin Time 40.7 SECONDS (22.3-36.8)
[2023-01-05 06:01] LABS: Alveolar/Arterial O2 Gradient 506.8 mmHg; Base Excess ABG 2.3 mEq/l (+/-2.0); Fractional Inspired Oxygen 100 %; HCO3 ABG 25.7 mEq/l (22.0-26.0); Methemoglobin ABG 0.2 %THb (0-1.5); Oxygen Saturation ABG 99.3 % (95.0-100.0); Oxyhemoglobin 98.5 % THb (90.0-100.0); PCO2 ABG 35.5 mmHg (35.0-45.0); PO2 ABG 170.7 mmHg (80.0-100.0); PO2 FiO2 Ratio Arterial Blood 1.71 %; Reduced Hemoglobin 1.3 %THb (0-5.0); Total Hemoglobin 9.8 g/dL (12.0-18.0); pH ABG 7.478 (7.350-7.450)
[2023-01-05 06:02] LABS: Arterial Blood Gas PEEP 5 cmH2O; Arterial Blood Gas Tidal Volume 420 ml; Arterial Blood Gas Vent Mode CMV; Arterial Blood Gas Ventilator rate 18 /MIN; Device VENTILATOR; Site Drawn RIGHT BRACHIAL
[2023-01-05] MEDS: NOREPINEPHRINE 8 MG/D5W 250 ML 8 MG/250 ML BAG 9.38 MG IV CONT (06:36)
[2023-01-05 08:19] LABS: Reflex Lactic Acid Yes or No Add Lactic
[2023-01-05 08:32] LABS: Glucose Point of Care 187 mg/dl (65-105)
[2023-01-05 08:53] LABS: Lactic Acid 1.2 mmol/L (0.7-2.0)
[2023-01-05] MEDS: TICAGRELOR 60 MG TABLET PO (09:11)
[2023-01-05] MEDS: MINERAL OIL/WHITE PETROLATUM OINTMENT 1 APPLIC EACH EYE ×2 (09:12→21:45)
[2023-01-05] MEDS: ASPIRIN 325 MG TABLET PO (09:12)
[2023-01-05] MEDS: ATORVASTATIN 40 MG TABLET 80 MG PO (09:12)
[2023-01-05] MEDS: PANTOPRAZOLE SODIUM IV 40 MG VIAL IV PUSH (09:13)
[2023-01-05] MEDS: SOD HYPOCHLORITE 1/4 STRENGTH 473 ML 1 APPLIC TOPICAL ×2 (09:13→21:45)
[2023-01-05] MEDS: carvediloL 3.125 MG TABLET PO ×2 (09:13→21:44)
--- NOTE | 2023-01-05 09:14 | WPDINTPN ---
Progress Note: A&P Assessment and Plan (1) Cardiac arrest: Code(s): I46.9 - Cardiac arrest, cause unspecified Status: Acute Assessment and Plan: Cardiac arrest could be related to hypoglycemia, bradycardia secondary to multiple causes -patient received 1 round of epi, bicarb, calcium chloride before ROSC, time was approximately 5 minutes -patient's initial rhythm according the code blue sheet was bradycardia, patient had more so a respiratory arrest. -was intubated during the code. -patient was started on Levophed post code (2) Respiratory failure: Code(s): J96.90 - Respiratory failure, unspecified, unspecified whether with hypoxia or hypercapnia Status: Acute Assessment and Plan: Respiratory failure/respiratory arrest which may have led to the cardiac arrest -currently on CMV mode of ventilation, peep of 5, 100% FiO2 and 420 mL tidal volume -ABGs reviewed -chest x-ray this morning: Small right pleural effusion with extensive hazy right lung airspace disease.Minimal hazy airspace disease in the left lung. -ventilator was adjusted, tidal volume a decreased to 400, FiO2 to 60% -patient currently on Zosyn, vancomycin, imipenem -off sedation at this time, need to evaluate him for his neurological status off all sedation -continue bronchodilators (3) Encephalopathy: Code(s): G93.40 - Encephalopathy, unspecified Status: Acute Assessment and Plan: Encephalopathy: Post cardiac arrest -off all sedation -continue to monitor neurological status -01/05 CT brain: No intracranial hemorrhage, mass, or acute infarct. 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 Atrophy and chronic white matter changes -keep off all sedation for now -ammonia levels within normal limits l (4) Sepsis: Code(s): A41.9 - Sepsis, unspecified organism Status: Acute Assessment and Plan: -12/26/2022 blood cultures are positive for Staph epidermidis and Staph hominis 2/2 bottles -12/27/2022 respiratory cultures grew ESBL E coli -12/27/2022 MRSA screen was negative -12/29/2022 repeat blood cultures: Negative x2 -01/05/2023 blood cultures have been obtained 01/05/2023: post arrest patient was hypotensive requiring Levophed -continue to maintain MAP > 65 mmHg for adequate end organ perfusion -patient was started on Zosyn by hospitalist, question of aspiration, Zosyn was discontinued -continues to be on vancomycin ertapenem -12/27/2022 Echocardiogram did not show any vegetations. He obviously may need julieth if bacteremia persists -Patient is not sure when he received the tunneled dialysis catheter and where it was done. He states it was probably done at [facility] few months ago but I do not see any operative note regarding tunneled dialysis catheter placement going back last year. -wound care team is following the patient (5) Hyperkalemia: Code(s): E87.5 - Hyperkalemia Status: Acute Assessment and Plan: Resolved -continue to monitor (6) End stage renal disease: Code(s): N18.6 - End stage renal disease Status: Chronic Assessment and Plan: Patient has a history of end-stage renal disease, on dialysis -he is very sensitive to volume overload and has been admitted to the hospital multiple times for the same reason -dialysis per Nephrology, last dialysis was done on 01/04/2023 with 2500 mL in fluid removal (7) Pulmonary edema: Code(s): J81.1 - Chronic pulmonary edema Status: Acute Assessment and Plan: Continue dialysis per Nephrology (8) Decubitus ulcer of sacral area: Code(s): L89.159 - Pressure ulcer of sacral region, unspecified stage Status: Chronic Assessment and Plan: Wound care evaluated the patient and recommendations for wound care appreciated (9) IDDM (insulin dependent diabetes mellitus): Status: Chronic Assessment and Plan: Continue sliding scale insulin Accu-Chek Hold Lantus as patie
[2023-01-05] MEDS: TOLNAFTATE 1% POWDER 45 GM BTL 1 APPLIC TOPICAL ×2 (09:20→21:45)
[2023-01-05 10:26] LABS: Ammonia < 9 umol/L (9-30)
[2023-01-05 11:35] LABS: Glucose Point of Care 162 mg/dl (65-105)
--- NOTE | 2023-01-05 11:41 | PCFNICU ---
ICU Rounding Note: Pt current nutrition is NPO. Last recorded weight is 49 kg. Bowel Motility:colotomy-no output reported. Labs Reviewed:Cr 1.7,BUN 24, Alb 2.9 Meds Noted:Protonix,Lantus, Fentanyl, Versed,NovoLog Skin: IV PU-saccum and left hip Additional Notes: Patient current with mechanical vent. No plans for nutrition today. Nutrition recommendations: Nepro at 40ml/hr with Rafal BID flush for wound healing. Following daily in ICU rounds. Will reassess every Monday and Monday.
--- NOTE | 2023-01-05 12:25 | PM.PNNEP ---
Progress Note: A&P Assessment and Plan (1) End stage renal disease: Code(s): N18.6 - End stage renal disease Status: Chronic Assessment and Plan: HD today and continue M/W/ schedule follow electrolytes, volume status, and clearance (2) Cardiac arrest: Code(s): I46.9 - Cardiac arrest, cause unspecified Status: Acute Assessment and Plan: precipitated by hypoglycemia and bradycardia ROSC after ~ 5 minuts s/p 1 round of epinephritine, bicarb, calcium chloride seemed more a respiratory arrest based on code blue note on levophed post cardiac arrest (3) Bacteremia: Code(s): R78.81 - Bacteremia Status: Acute Assessment and Plan: staph bacteremia on 12/26 by admission cultures repeat blood cultures - growth to date. on Vancomycin - will need this for 6 weeks source -- decubitus ulcers versus tunneled HD catheter versus something else? HD catheter was recently exchanged wounds undergoing dressing changes still on ertapenem as well (4) Acute respiratory failure: Code(s): J96.00 - Acute respiratory failure, unspecified whether with hypoxia or hypercapnia Status: Acute Assessment and Plan: ongoing issues during this hosptial stay (on 01/02/23 and today) suspect this may have led to cardiac arrest on mechanical ventilation on bronchodilators weaning once better assessement of neurological status (5) Hyperkalemia: Code(s): E87.5 - Hyperkalemia Status: Acute Assessment and Plan: resolved possibly due to hyper-catabolic state versus diet versus shortened dialysis treatments last week (6) Altered mental status: Code(s): R41.82 - Altered mental status, unspecified Status: Acute Assessment and Plan: was improving prior to cardiac arrest follow mentation off sedation CT of brain noted (7) Anemia: Code(s): D64.9 - Anemia, unspecified Status: Chronic Assessment and Plan: due to ESRD and possible acute illness Epogen with HD follow H/H (8) Decubitus ulcers: Code(s): L89.90 - Pressure ulcer of unspecified site, unspecified stage Status: Chronic Assessment and Plan: local wound care wound care nurse following (9) Diabetes: Qualifiers: Diabetes mellitus complication detail: with other circulatory complications Diabetes mellitus complication status: with circulatory complication Diabetes mellitus type: type 1 Qualified Code(s): E10.59 - Type 1 diabetes mellitus with other circulatory complications Code(s): E11.9 - Type 2 diabetes mellitus without complications Status: Chronic Assessment and Plan: on Accu-Cheks glycemic control per hospitalist/ed transporter Will continue to follow. Subjective Date/time seen: 01/05/23 12:25 Events noted earlier this morning -- cardiac arrest/code blue/rapid response due to bradycardia in association with hypoglycemia; initiated on ACLS protocol with susequent intubation and initiation of vasopressor therapy; STAT brain CT without any acute pathology; tolerated dialysis treatment yesterday without any issues. Exam Narrative: General: ill appearing male intubated and on mechanical ventilation Heart: normal S1 and S2; no rub or gallop Lungs: coarse breath sounds; decrease at bases Abdomen: bowel sounds positive and soft. Extremities: no cyanosis or clubbing; left AKA and right BKA Skin: wounds with dressings in place Objective Data Vital Signs Vital Signs: Vital Signs Temp Pulse Resp BP Pulse Ox O2 Del Method O2 Flow Rate 01/05/23 12:00 01/05/23 11:49 100.5 F H 104 H 20 131/74 100 01/05/23 10:34 102 H 100 Mechanical Ventilation 01/05/23 08:00 97 16 100 Mechanical Ventilation 01/05/23 08:00 01/05/23 10:00 104 H 18 90/65 L 100 01/05/23 07:15 99 18 01/05/23 07:15 99 18
--- NOTE | 2023-01-05 12:25 | P.PNNP_ITS ---
Progress Note: A&P Assessment and Plan (1) End stage renal disease: Code(s): N18.6 - End stage renal disease Status: Chronic Assessment and Plan: * HD today and continue // schedule * follow electrolytes, volume status, and clearance (2) Cardiac arrest: Code(s): I46.9 - Cardiac arrest, cause unspecified Status: Acute Assessment and Plan: * precipitated by hypoglycemia and bradycardia * ROSC after ~ 5 minuts * s/p 1 round of epinephritine, bicarb, calcium chloride * seemed more a respiratory arrest based on code blue note * on levophed post cardiac arrest (3) Bacteremia: Code(s): R78.81 - Bacteremia Status: Acute Assessment and Plan: * staph bacteremia on 12/26 by admission cultures * repeat blood cultures - growth to date. * on Vancomycin - will need this for 6 weeks * source -- decubitus ulcers versus tunneled HD catheter versus something else? * HD catheter was recently exchanged * wounds undergoing dressing changes * still on ertapenem as well (4) Acute respiratory failure: Code(s): J96.00 - Acute respiratory failure, unspecified whether with hypoxia or hypercapnia Status: Acute Assessment and Plan: * ongoing issues during this hosptial stay (on 01/02/23 and today) * suspect this may have led to cardiac arrest * on mechanical ventilation * on bronchodilators * weaning once better assessement of neurological status (5) Hyperkalemia: Code(s): E87.5 - Hyperkalemia Status: Acute Assessment and Plan: * resolved * possibly due to hyper-catabolic state versus diet versus shortened dialysis tr eatments last week (6) Altered mental status: Code(s): R41.82 - Altered mental status, unspecified Status: Acute Assessment and Plan: * was improving prior to cardiac arrest * follow mentation off sedation * CT of brain noted (7) Anemia: Code(s): D64.9 - Anemia, unspecified Status: Chronic Assessment and Plan: * due to ESRD and possible acute illness * Epogen with HD * follow H/H (8) Decubitus ulcers: Code(s): L89.90 - Pressure ulcer of unspecified site, unspecified stage Status: Chronic Assessment and Plan: * local wound care * wound care nurse following (9) Diabetes: Qualifiers: Diabetes mellitus complication detail: with other circulatory complications Diabetes mellitus complication status: with circulatory co mplication Diabetes mellitus type: type 1 Qualified Code(s): E10.59 - Type 1 diabetes mellitus with other circulatory complications Code(s): E11.9 - Type 2 diabetes mellitus without complications Status: Chronic Assessment and Plan: * on Accu-Cheks * glycemic control per hospitalist/tobacco baler Will continue to follow. Subjective Date/time seen: 01/05/23 12:25 Events noted earlier this morning -- cardiac arrest/code blue/rapid response due to bradycardia in association with hypoglycemia; initiated on ACLS protocol with susequent intubation and initiation of vasopressor therapy; STAT brain CT without any acute pathology; tolerated dialysis treatment yesterday without any issues. Exam Narrative: General: ill appearing male intubated and on mechanical ventilation Heart: normal S1 and S2; no rub or gallop Lungs: coarse breath sounds; decrease at bases Abdomen: bowel sounds positive and soft. Extremities: no cyanosis or clubbing; left AKA and
--- NOTE | 2023-01-05 12:26 | PM.PNCARD ---
Progress Note: A&P Assessment and Plan (1) Elevated troponin: Code(s): R77.8 - Other specified abnormalities of plasma proteins Status: Acute (2) Anemia: Code(s): D64.9 - Anemia, unspecified Status: Acute (3) Respiratory failure: Code(s): J96.90 - Respiratory failure, unspecified, unspecified whether with hypoxia or hypercapnia Status: Acute (4) Hyperkalemia: Code(s): E87.5 - Hyperkalemia Status: Acute (5) End stage renal disease: Code(s): N18.6 - End stage renal disease Status: Chronic (6) Hypertension: Code(s): I10 - Essential (primary) hypertension Status: Acute (7) Sepsis: Code(s): A41.9 - Sepsis, unspecified organism Status: Acute (8) Diabetes mellitus with hyperglycemia: Code(s): E11.65 - Type 2 diabetes mellitus with hyperglycemia Status: Acute (9) Peripheral vascular disease: Code(s): I73.9 - Peripheral vascular disease, unspecified Status: Acute (10) Cardiomyopathy: Code(s): I42.9 - Cardiomyopathy, unspecified Status: Acute (11) Cardiac arrest: Code(s): I46.9 - Cardiac arrest, cause unspecified Status: Acute Assessment and Plan: in part related to severe hypoglycemia. The patient also bradycardic and time. He is currently stable. On small dose of Levophed. Wean as able. No further cardiac recommendations at this point. Discussion was had with family regarding his severe and multiple healthcare issues. Family considering hospice but want to discuss with him once extubated Plan Patient has chronically elevated troponins and are within baseline level. No ischemic changes noted on EKGs. No evidence of ACS at this time. Subjective Date/time seen: 01/05/23 12:26 Interval history: Reason for visit: Elevated troponin HPI: We are consulted for elevated troponin. This is a 57-year-old male with a history of ESRD on HD, CAD s/p stent to the LAD and previous abrupt stent thrombosis resulting in anterior infarction with repeat LAD intervention, history of noncompliance, chronic heart failure with preserved ejection fraction, hypertension, diabetes, tobacco use. All of history is obtained from the chart as patient is intubated. Patient presented to [facility] from his nursing facility for further evaluation of altered mental status. Patient noted to be confused and hypoxic at long term. EMS called, was noted to be satting 70% on room air. Patient was completely unresponsive and had no gag reflex or ability to protect his airway when he arrived to the ER. He was emergently intubated and placed on mechanical ventilation. CT head negative for acute findings. Had severe hyperkalemia with K of 8.8. Treated medically initially as there was no dialysis nurse available to do emergent dialysis. Potassium improved with aggressive medical management. Patient's initial troponin was 0.058, with repeat at 0.211 and then 0.419. He is known to have chronically elevated troponins. EKG on presentation with sinus tachycardia, LAE, no ischemic changes. Overnight, there was concern that patient was going to code. His heart rate dropped down to the 60s, and he became hypotensive. Per the AIRCRAFT PAINTER APPRENTICE, his levophed was increased. He then became tachycardic, which improved once the Levo was weaned down. Patient is currently getting dialysis afternoon. Hypotensive with dialysis so on Levo. Date of service 12/28: Patient remains intubated. Levo on standby. ICU team hoping to extubate today. Blood cultures show gram positive cocci in clusters in 1/2 bottles. date of service 01/05/2023: Events of last night noted. Patient was found to be unresponsive. He was hypoglycemic bradycardic. There was return of spontaneous circulation as detailed in the code note. he is currently intubated. He is responsive. Review of Systems Review of Systems: ROS unobtainable: Yes unobtainable due to endotracheal tube and unob
[2023-01-05 16:11] LABS: Glucose Point of Care 152 mg/dl (65-105)
[2023-01-05] MEDS: ERTAPENEM SODIUM 0.5 GM in SODIUM CHLORIDE 0.9% IV 50 ML IVPB (17:46)
[2023-01-06] VITALS (50 sets, daily range): BP systolic 75–157; BP diastolic 54–126; PULSE 96–146; RESP 18–30; TEMP 36–37.9; O2SAT 95–100
[2023-01-06] MEDS: ALBUTEROL SULFATE NEB 2.5 MG/3 ML INH INHALATION ×3 (04:32→08:17)
[2023-01-06 05:00] LABS: Basophils Absolute Auto 0.1 K/mm3 (0.0-0.1); Basophils Percent Auto 0.6 % (0.2-1.2); Eosinophils Absolute Auto 0.2 K/mm3 (0-0.3); Eosinophils Percent Auto 1.5 % (0-4.4); Hematocrit 25.7 % (42.0-52.0); Hemoglobin 7.7 g/dL (14.0-18.0); Immature Granulocyte Percent A 0.7 % (0-0.5); Lymphocytes Absolute Auto 1.33 K/mm3 (0.9-3.2); Lymphocytes Percent Auto 9.3 % (18.3-44.2); Mean Corpuscular Hemoglobin 30.2 pg (26-34); Mean Corpuscular Volume 100.8 fl (80-100); Mean Platelet Volume 9.8 fl (7.4-10.4); Monocytes Absolute Auto 1.2 K/mm3 (0.1-0.6); Monocytes Percent Auto 8.1 % (2.6-8.5); Neutrophils Absolute Auto 11.4 K/mm3 (1.3-6.7); Neutrophils Percent Auto 79.8 % (45.5-73.1); Nucleated Red Blood Cells Perc 0.2 % (0.0-0.2); Platelet Count Result 426 k/mm3 (150-375); Red Blood Count 2.55 M/mm3 (4.6-6.20); Red Cell Distribution Width 21.2 % (11.5-14.5); White Blood Count 14.3 K/mm3 (4.5-10.0)
[2023-01-06 05:13] LABS: Alanine Aminotransferase 17 U/L (6-50); Albumin Level 2.9 g/dL (3.5-5.1); Alkaline Phosphatase 110 U/L (38-126); Anion Gap 11 mmol/L (8-16); Aspartate Amino Transferase 25 U/L (17-59); Bilirubin,Total 0.5 mg/dL (0.2-1.3); Blood Urea Nitrogen 35 mg/dL (9-20); Calcium 9.1 mg/dL (8.4-10.2); Carbon Dioxide 25 mmol/L (22-30); Chloride 101 mmol/L (98-107); Estimated Glomerular Filt Rate 25; Glucose 372 mg/dL (65-110); Magnesium 2.1 mg/dL (1.6-2.3); Phosphorus 5.5 mg/dL (2.5-4.5); Potassium 3.6 mmol/L (3.4-5.0); Sodium 137 mmol/L (137-145)
[2023-01-06] MEDS: CENTRAL LINE FLUSH 10 ML IV PUSH ×4 (05:24→20:53)
[2023-01-06 06:11] LABS: Alveolar/Arterial O2 Gradient 93.3 mmHg; Base Excess ABG -1.4 mEq/l (+/-2.0); Carboxyhemoglobin 0.1 % THb (0-2.0); Fractional Inspired Oxygen 30 %; HCO3 ABG 22.5 mEq/l (22.0-26.0); Methemoglobin ABG 0.3 %THb (0-1.5); Oxygen Content ABG 11.7 %vol (16.0-22.0); Oxygen Saturation ABG 96.4 % (95.0-100.0); Oxyhemoglobin 94.4 % THb (90.0-100.0); PCO2 ABG 33.9 mmHg (35.0-45.0); PO2 ABG 80.8 mmHg (80.0-100.0); PO2 FiO2 Ratio Arterial Blood 2.69 %; Reduced Hemoglobin 5.2 %THb (0-5.0); Total Hemoglobin 8.7 g/dL (12.0-18.0); pH ABG 7.439 (7.350-7.450)
[2023-01-06 06:12] LABS: Device VENTILATOR; Site Drawn RIGHT BRACHIAL
[2023-01-06 06:13] LABS: Arterial Blood Gas PEEP 5 cmH2O; Arterial Blood Gas Tidal Volume 400 ml; Arterial Blood Gas Vent Mode CMV; Arterial Blood Gas Ventilator rate 18 /MIN
[2023-01-06] MEDS: ATORVASTATIN 40 MG TABLET 80 MG PO (07:45)
[2023-01-06] MEDS: TICAGRELOR 60 MG TABLET PO (07:45)
[2023-01-06] MEDS: carvediloL 3.125 MG TABLET PO ×2 (07:46→20:53)
[2023-01-06] MEDS: ASPIRIN 325 MG TABLET PO (07:46)
[2023-01-06] MEDS: PANTOPRAZOLE SODIUM IV 40 MG VIAL IV PUSH (07:46)
[2023-01-06] MEDS: MINERAL OIL/WHITE PETROLATUM OINTMENT 1 APPLIC EACH EYE ×2 (07:46→20:53)
[2023-01-06] MEDS: calcitrioL 0.25 MCG CAPSULE 1.25 MCG PO (07:47)
[2023-01-06] MEDS: CINACALCET 30 MG TABLET 90 MG PO (07:48)
[2023-01-06] MEDS: INSULIN ASPART (*BKC) 100 UNITS/ML SUB-Q ×4 (07:55→20:59)
[2023-01-06] MEDS: SOD HYPOCHLORITE 1/4 STRENGTH 473 ML 1 APPLIC TOPICAL ×2 (07:56→20:57)
[2023-01-06] MEDS: EPOETIN ALFA-EPBX 10,000 UNITS/ML VIAL 10000 UNITS IV PUSH (09:26)
[2023-01-06] MEDS: SODIUM CHLORIDE 0.9% IV 1,000 ML 999 ML IV CONT (09:27)
[2023-01-06 09:59] LABS: Glucose Point of Care 188 mg/dl (65-105)
--- NOTE | 2023-01-06 10:39 | P.PNNP_ITS ---
Progress Note: A&P Assessment and Plan (1) End stage renal disease: Code(s): N18.6 - End stage renal disease Status: Chronic Assessment and Plan: * HD today and continue // schedule * follow electrolytes, volume status, and clearance (2) Cardiac arrest: Code(s): I46.9 - Cardiac arrest, cause unspecified Status: Acute Assessment and Plan: * precipitated by hypoglycemia and bradycardia * ROSC after ~ 5 minuts * s/p 1 round of epinephritine, bicarb, calcium chloride * seemed more a respiratory arrest based on code blue note * was on levophed post cardiac arrest but this has been weaned off (3) Bacteremia: Code(s): R78.81 - Bacteremia Status: Acute Assessment and Plan: * staph bacteremia on 12/26 by admission cultures * repeat blood cultures - growth to date. * on Vancomycin - will need this for 6 weeks * source -- decubitus ulcers versus tunneled HD catheter versus something else? * HD catheter was recently exchanged * wounds undergoing dressing changes * still on ertapenem as well (4) Acute respiratory failure: Code(s): J96.00 - Acute respiratory failure, unspecified whether with hypoxia or hypercapnia Status: Acute Assessment and Plan: * ongoing issues during this hosptial stay (on 01/02/23 and today) * suspect this may have led to cardiac arrest * on mechanical ventilation * on bronchodilators * weaning as tolerated (5) Hyperkalemia: Code(s): E87.5 - Hyperkalemia Status: Acute Assessment and Plan: * resolved * possibly due to hyper-catabolic state versus diet versus shortened dialysis treatments last week (6) Altered mental status: Code(s): R41.82 - Altered mental status, unspecified Status: Acute Assessment and Plan: * was improving prior to cardiac arrest * follow mentation off sedation * CT of brain noted (7) Anemia: Code(s): D64.9 - Anemia, unspecified Status: Chronic Assessment and Plan: * due to ESRD and possible acute illness * Epogen with HD * follow H/H (8) Decubitus ulcers: Code(s): L89.90 - Pressure ulcer of unspecified site, unspecified stage Status: Chronic Assessment and Plan: * local wound care * wound care nurse following (9) Diabetes: Qualifiers: Diabetes mellitus complication detail: with other circulatory complications Diabetes mellitus complication status: with circulatory com plication Diabetes mellitus type: type 1 Qualified Code(s): E10.59 - Type 1 diabetes mellitus with other circulatory complications Code(s): E11.9 - Type 2 diabetes mellitus without complications Status: Chronic Assessment and Plan: * on Accu-Cheks * glycemic control per hospitalist/pe manager Will continue to follow. Subjective Date/time seen: 01/06/23 10:39 Patient tolerating dialysis treatment although issue with hypotension noted requiring reducing blood flow rate as well as IV albumin (seen on HD at 10:30AM); remains intubated at this time; at bedside and we discussed the situation; off sedation and off Levophed at this time. Exam Narrative: General: ill appearing male intubated and on mechanical ventilation Heart: normal S1 and S2; no rub or gallop Lungs: coarse breath sounds; decrease at bases Abdomen: bowel sounds positive and soft. Extremities: no cyanosis or clubbing; left AKA and right BKA Skin: wounds with dressings i
--- NOTE | 2023-01-06 10:39 | PM.PNNEP ---
Progress Note: A&P Assessment and Plan (1) End stage renal disease: Code(s): N18.6 - End stage renal disease Status: Chronic Assessment and Plan: HD today and continue M/W/ schedule follow electrolytes, volume status, and clearance (2) Cardiac arrest: Code(s): I46.9 - Cardiac arrest, cause unspecified Status: Acute Assessment and Plan: precipitated by hypoglycemia and bradycardia ROSC after ~ 5 minuts s/p 1 round of epinephritine, bicarb, calcium chloride seemed more a respiratory arrest based on code blue note was on levophed post cardiac arrest but this has been weaned off (3) Bacteremia: Code(s): R78.81 - Bacteremia Status: Acute Assessment and Plan: staph bacteremia on 12/26 by admission cultures repeat blood cultures - growth to date. on Vancomycin - will need this for 6 weeks source -- decubitus ulcers versus tunneled HD catheter versus something else? HD catheter was recently exchanged wounds undergoing dressing changes still on ertapenem as well (4) Acute respiratory failure: Code(s): J96.00 - Acute respiratory failure, unspecified whether with hypoxia or hypercapnia Status: Acute Assessment and Plan: ongoing issues during this hosptial stay (on 01/02/23 and today) suspect this may have led to cardiac arrest on mechanical ventilation on bronchodilators weaning as tolerated (5) Hyperkalemia: Code(s): E87.5 - Hyperkalemia Status: Acute Assessment and Plan: resolved possibly due to hyper-catabolic state versus diet versus shortened dialysis treatments last week (6) Altered mental status: Code(s): R41.82 - Altered mental status, unspecified Status: Acute Assessment and Plan: was improving prior to cardiac arrest follow mentation off sedation CT of brain noted (7) Anemia: Code(s): D64.9 - Anemia, unspecified Status: Chronic Assessment and Plan: due to ESRD and possible acute illness Epogen with HD follow H/H (8) Decubitus ulcers: Code(s): L89.90 - Pressure ulcer of unspecified site, unspecified stage Status: Chronic Assessment and Plan: local wound care wound care nurse following (9) Diabetes: Qualifiers: Diabetes mellitus complication detail: with other circulatory complications Diabetes mellitus complication status: with circulatory complication Diabetes mellitus type: type 1 Qualified Code(s): E10.59 - Type 1 diabetes mellitus with other circulatory complications Code(s): E11.9 - Type 2 diabetes mellitus without complications Status: Chronic Assessment and Plan: on Accu-Cheks glycemic control per hospitalist/beam doffer Will continue to follow. Subjective Date/time seen: 01/06/23 10:39 Patient tolerating dialysis treatment although issue with hypotension noted requiring reducing blood flow rate as well as IV albumin (seen on HD at 10:30AM); remains intubated at this time; at bedside and we discussed the situation; off sedation and off Levophed at this time. Exam Narrative: General: ill appearing male intubated and on mechanical ventilation Heart: normal S1 and S2; no rub or gallop Lungs: coarse breath sounds; decrease at bases Abdomen: bowel sounds positive and soft. Extremities: no cyanosis or clubbing; left AKA and right BKA Skin: wounds with dressings in place Objective Data Vital Signs Vital Signs: Vital Signs Temp Pulse Resp BP Pulse Ox O2 Del Method FiO2 01/06/23 10:00 98.8 F 122 H 26 H 104/67 100 01/06/23 10:00 122 H 01/06/23 08:00 112 H 26 H 100 Mechanical Ventilation 30 01/06/23 08:00 99.1 F 112 H 26 H 131/74 100 01/06/23 08:00 112 H 01/06/23 10:30 113 H 76/57 L 01/06/23 10:15 119 H 89/54 L 01/06/23 10:00 122 H 75/65 L 01/06/23 09:45 130 H 102/68
[2023-01-06 10:42] LABS: Glucose Point of Care 273 mg/dl (65-105)
--- NOTE | 2023-01-06 11:25 | PCNFU ---
Nutrition Follow-Up Complete: Inadequate Oral Intake as related to mechanical ventilation as evidenced by NPO. Goal: Meet estimated nutritional needs Patient is progressing towards goal. We will continue current goal Pt current nutrition is Nepro at 40 ml/hr. Last recorded weight is 46.3 kg. Bowel Motility:colostomy Labs Reviewed:Cr 2.7,BUN 35, Alb 2.9 Meds Noted:Lipitor, NovoLog, Lantus, Protonix,Fentanyl, Versed Skin: Stage IV Pressure Ulcer-left hip and saccum Additional Notes: Patient remains on mechanical vent and tube feedings of Nepro at 40 ml/hr. Tolerating tube feedings per nursing. Patient having dialysis today. Agree with diet orders. Will reassess every Monday and Monday.
[2023-01-06 11:45] LABS: Glucose Point of Care 143 mg/dl (65-105)
--- NOTE | 2023-01-06 13:23 | WPDINTPN ---
Progress Note: A&P Assessment and Plan (1) Cardiac arrest: Code(s): I46.9 - Cardiac arrest, cause unspecified Status: Acute Assessment and Plan: 01/05:Cardiac arrest could be related to hypoglycemia, bradycardia secondary to multiple causes. Received 1 round of epi, bicarb, calcium chloride before ROSC, time was approximately 5 minutes.Patient's initial rhythm according the code blue sheet was bradycardia, patient had more so a respiratory arrest. He was intubated during the code. -initially he was on Levophed briefly which was turned off after sedation was stopped -cardiac likely related to severe hypoglycemia, no further recommendations from Cardiology -chronically elevated troponins, within baseline level. No ischemic changes noted on EKG, no evidence of ACS per Cardiology (2) Respiratory failure: Code(s): J96.90 - Respiratory failure, unspecified, unspecified whether with hypoxia or hypercapnia Status: Acute Assessment and Plan: Respiratory failure/respiratory arrest which may have led to the cardiac arrest -currently on CMV mode of ventilation, peep of 5, 30% FiO2 -ABGs reviewed -chest x-ray this morning:[id number] right pleural effusion, with right basilar consolidation. Correlate for atelectasis versus pneumonia.Minimal nonspecific left perihilar haziness -patient currently on vancomycin, imipenem -off sedation at this time, -continue bronchodilators -will trial place patient on SBT after dialysis (3) Encephalopathy: Code(s): G93.40 - Encephalopathy, unspecified Status: Acute Assessment and Plan: Encephalopathy: Post cardiac arrest -off all sedation -continue to monitor neurological status -01/05 CT brain: No intracranial hemorrhage, mass, or acute infarct. 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 Atrophy and chronic white matter changes -keep off all sedation for now -ammonia levels within normal limits -patient definitely more awake, responsive, nods to questions (4) Sepsis: Code(s): A41.9 - Sepsis, unspecified organism Status: Acute Assessment and Plan: -12/26/2022 blood cultures are positive for Staph epidermidis and Staph hominis 2/ bottles -12/27/2022 respiratory cultures grew ESBL E coli -12/27/2022 MRSA screen was negative -12/29/2022 repeat blood cultures: Negative x2 -01/05/2023 blood cultures have been obtained 01/05/2023: post arrest patient was hypotensive requiring Levophed -continue to maintain MAP > 65 mmHg for adequate end organ perfusion -patient was started on Zosyn by hospitalist, question of aspiration, Zosyn was discontinued -continues to be on vancomycin ertapenem -12/27/2022 Echocardiogram did not show any vegetations. He obviously may need julieth if bacteremia persists -Patient is not sure when he received the tunneled dialysis catheter and where it was done. He states it was probably done at [facility] few months ago but I do not see any operative note regarding tunneled dialysis catheter placement going back last year. -wound care team is following the patient (5) Hyperkalemia: Code(s): E87.5 - Hyperkalemia Status: Acute Assessment and Plan: Resolved -continue to monitor (6) End stage renal disease: Code(s): N18.6 - End stage renal disease Status: Chronic Assessment and Plan: Patient has a history of end-stage renal disease, on dialysis -he is very sensitive to volume overload and has been admitted to the hospital multiple times for the same reason -dialysis per Nephrology, (7) Pulmonary edema: Code(s): J81.1 - Chronic pulmonary edema Status: Acute Assessment and Plan: Continue dialysis per Nephrology (8) Decubitus ulcer of sacral area: Code(s): L89.159 - Pressure ulcer of sacral region, unspecified stage Status: Chronic Assessment and Plan: Wound care evaluated the patient and recommendations for wound care phylicia
[2023-01-06] MEDS: LEVALBUTEROL NEB 1.25 MG/3 ML 0.63 MG INHALATION ×2 (13:57→20:19)
[2023-01-06 16:04] LABS: Glucose Point of Care 302 mg/dl (65-105)
[2023-01-06] MEDS: ERTAPENEM SODIUM 0.5 GM in SODIUM CHLORIDE 0.9% IV 50 ML IVPB (17:22)
[2023-01-06 19:17] LABS: Vancomycin Random 18.2 ug/mL (10-20)
[2023-01-06] MEDS: TOLNAFTATE 1% POWDER 45 GM BTL 1 APPLIC TOPICAL (20:58)
[2023-01-06 21:00] LABS: Glucose Point of Care 348 mg/dl (65-105)
[2023-01-06 23:28] LABS: Glucose Point of Care 320 mg/dl (65-105)
[2023-01-07] VITALS (41 sets, daily range): BP systolic 94–148; BP diastolic 59–92; PULSE 84–115; RESP 13–28; TEMP 0–37.7; O2SAT 87–100
[2023-01-07] MEDS: INSULIN ASPART (*BKC) 100 UNITS/ML SUB-Q ×4 (00:47→13:29)
[2023-01-07 00:54] LABS: Glucose Point of Care 324 mg/dl (65-105)
[2023-01-07] MEDS: LEVALBUTEROL NEB 1.25 MG/3 ML 0.63 MG INHALATION ×4 (02:39→20:20)
[2023-01-07 05:31] LABS: Alveolar/Arterial O2 Gradient 116.7 mmHg; Base Excess ABG 4.3 mEq/l (+/-2.0); Carboxyhemoglobin 0.5 % THb (0-2.0); Fractional Inspired Oxygen 30 %; HCO3 ABG 26.9 mEq/l (22.0-26.0); Methemoglobin ABG 0.3 %THb (0-1.5); Oxygen Content ABG 11.1 %vol (16.0-22.0); Oxygen Saturation ABG 93.5 % (95.0-100.0); Oxyhemoglobin 90.4 % THb (90.0-100.0); PCO2 ABG 32.5 mmHg (35.0-45.0); PO2 FiO2 Ratio Arterial Blood 1.97 %; Reduced Hemoglobin 8.8 %THb (0-5.0); Total Hemoglobin 8.7 g/dL (12.0-18.0)
[2023-01-07 05:33] LABS: Device VENTILATOR; Site Drawn RIGHT BRACHIAL; pH ABG 7.536 (7.350-7.450)
[2023-01-07 05:34] LABS: Arterial Blood Gas PEEP 5 cmH2O; Arterial Blood Gas Tidal Volume 400 ml; Arterial Blood Gas Vent Mode CMV; Arterial Blood Gas Ventilator rate 18 /MIN
[2023-01-07 05:36] LABS: Glucose Point of Care 131 mg/dl (65-105)
[2023-01-07 05:40] LABS: Basophils Absolute Auto 0.1 K/mm3 (0.0-0.1); Basophils Percent Auto 0.8 % (0.2-1.2); Eosinophils Absolute Auto 0.3 K/mm3 (0-0.3); Eosinophils Percent Auto 2.6 % (0-4.4); Hematocrit 24.6 % (42.0-52.0); Hemoglobin 7.4 g/dL (14.0-18.0); Immature Granulocyte Absolute 0.07 K/mm3 (0.00-0.031); Immature Granulocyte Percent A 0.5 % (0-0.5); Lymphocytes Absolute Auto 1.16 K/mm3 (0.9-3.2); Lymphocytes Percent Auto 8.9 % (18.3-44.2); Mean Corpuscular HGB Conc 30.1 g/dl (32-36); Mean Corpuscular Hemoglobin 30.3 pg (26-34); Mean Corpuscular Volume 100.8 fl (80-100); Mean Platelet Volume 9.8 fl (7.4-10.4); Monocytes Absolute Auto 1.1 K/mm3 (0.1-0.6); Monocytes Percent Auto 8.7 % (2.6-8.5); Neutrophils Absolute Auto 10.2 K/mm3 (1.3-6.7); Neutrophils Percent Auto 78.5 % (45.5-73.1); Nucleated Red Blood Cells Perc 0.3 % (0.0-0.2); Platelet Count Result 462 k/mm3 (150-375); Red Blood Count 2.44 M/mm3 (4.6-6.20); Red Cell Distribution Width 21.3 % (11.5-14.5)
[2023-01-07] MEDS: CENTRAL LINE FLUSH 10 ML IV PUSH ×5 (05:43→20:54)
[2023-01-07 05:57] LABS: Alanine Aminotransferase 16 U/L (6-50); Albumin Level 2.9 g/dL (3.5-5.1); Alkaline Phosphatase 119 U/L (38-126); Anion Gap 7 mmol/L (8-16); Aspartate Amino Transferase 28 U/L (17-59); Bilirubin,Total 0.4 mg/dL (0.2-1.3); Blood Urea Nitrogen 26 mg/dL (9-20); Carbon Dioxide 28 mmol/L (22-30); Chloride 103 mmol/L (98-107); Estimated Glomerular Filt Rate 37; Glucose 306 mg/dL (65-110); Magnesium 2.2 mg/dL (1.6-2.3); Phosphorus 2.9 mg/dL (2.5-4.5); Potassium 3.2 mmol/L (3.4-5.0); Sodium 138 mmol/L (137-145)
[2023-01-07] MEDS: ASPIRIN 325 MG TABLET PO (09:00)
[2023-01-07] MEDS: ATORVASTATIN 40 MG TABLET 80 MG PO (09:01)
[2023-01-07] MEDS: carvediloL 3.125 MG TABLET PO ×2 (09:02→20:55)
[2023-01-07] MEDS: TICAGRELOR 60 MG TABLET PO (09:02)
[2023-01-07] MEDS: PANTOPRAZOLE SODIUM IV 40 MG VIAL IV PUSH (09:02)
[2023-01-07] MEDS: INSULIN GLARGINE (*BKC) 100 UNITS/ML 12 UNITS SUB-Q (09:03)
[2023-01-07] MEDS: TOLNAFTATE 1% POWDER 45 GM BTL 1 APPLIC TOPICAL ×2 (09:03→20:57)
[2023-01-07] MEDS: VITAMIN B CMPLX/VIT C/FOLIC AC 1 CAPSULE 1 CAP PO (09:03)
[2023-01-07] MEDS: SOD HYPOCHLORITE 1/4 STRENGTH 473 ML 1 APPLIC TOPICAL ×2 (09:03→20:56)
[2023-01-07 09:25] LABS: Glucose Point of Care 300 mg/dl (65-105)
--- NOTE | 2023-01-07 11:39 | WPDINTPN ---
Progress Note: A&P Assessment and Plan (1) Cardiac arrest: Code(s): I46.9 - Cardiac arrest, cause unspecified Status: Acute Assessment and Plan: 01/05:Cardiac arrest could be related to hypoglycemia, bradycardia secondary to multiple causes. Received 1 round of epi, bicarb, calcium chloride before ROSC, time was approximately 5 minutes.Patient's initial rhythm according the code blue sheet was bradycardia, patient had more so a respiratory arrest. He was intubated during the code. -initially he was on Levophed briefly which was turned off after sedation was stopped -cardiac arrest likely related to severe hypoglycemia, no further recommendations from Cardiology -chronically elevated troponins, within baseline level. No ischemic changes noted on EKG, no evidence of ACS per Cardiology (2) Respiratory failure: Code(s): J96.90 - Respiratory failure, unspecified, unspecified whether with hypoxia or hypercapnia Status: Acute Assessment and Plan: Respiratory failure/respiratory arrest which may have led to the cardiac arrest -currently on CMV mode of ventilation, peep of 5, 30% FiO2 -ABGs reviewed -chest x-ray this morning: ?Persistent right lower lobe infiltrate and/atelectasis; diminished right pleural effusion since January 06, 2023 Interval bilateral central pulmonary infiltrates suggesting pulmonary edema -patient currently on vancomycin, imipenem -off sedation at this time, -continue bronchodilators -patient to get dialyzed again today, will place patient on SBT after dialysis (3) Encephalopathy: Code(s): G93.40 - Encephalopathy, unspecified Status: Acute Assessment and Plan: Post cardiac arrest Encephalopathy: Much improved -off all sedation -continue to monitor neurological status -01/05 CT brain: No intracranial hemorrhage, mass, or acute infarct. 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 Atrophy and chronic white matter changes -keep off all sedation for now -ammonia levels within normal limits -patient definitely more awake, responsive, nods to questions (4) Sepsis: Code(s): A41.9 - Sepsis, unspecified organism Status: Acute Assessment and Plan: -12/26/2022 blood cultures are positive for Staph epidermidis and Staph hominis 2/2 bottles -12/27/2022 respiratory cultures grew ESBL E coli -12/27/2022 MRSA screen was negative -12/29/2022 repeat blood cultures: Negative x2 -01/05/2023 blood cultures have been obtained 01/05/2023: post arrest patient was hypotensive requiring Levophed -continue to maintain MAP > 65 mmHg for adequate end organ perfusion -patient was started on Zosyn by hospitalist, question of aspiration, Zosyn was discontinued -continues to be on vancomycin ertapenem -12/27/2022 Echocardiogram did not show any vegetations. He obviously may need julieth if bacteremia persists -Patient is not sure when he received the tunneled dialysis catheter and where it was done. He states it was probably done at [facility] few months ago but I do not see any operative note regarding tunneled dialysis catheter placement going back last year. -wound care team is following the patient (5) Hyperkalemia: Code(s): E87.5 - Hyperkalemia Status: Acute Assessment and Plan: Resolved -continue to monitor (6) End stage renal disease: Code(s): N18.6 - End stage renal disease Status: Chronic Assessment and Plan: Patient has a history of end-stage renal disease, on dialysis -he is very sensitive to volume overload and has been admitted to the hospital multiple times for the same reason -dialysis per Nephrology, (7) Pulmonary edema: Code(s): J81.1 - Chronic pulmonary edema Status: Acute Assessment and Plan: Continue dialysis per Nephrology (8) Decubitus ulcer of sacral area: Code(s): L89.159 - Pressure ulcer of sacral region, unspecified stage Status: Chronic Assessment a
--- NOTE | 2023-01-07 12:40 | P.PNNP_ITS ---
Progress Note: A&P Assessment and Plan (1) End stage renal disease: Code(s): N18.6 - End stage renal disease Status: Chronic Assessment and Plan: * HD yesterday and continue // schedule * follow electrolytes, volume status, and clearance * plan DUF session today for fluid removal (2) Cardiac arrest: Code(s): I46.9 - Cardiac arrest, cause unspecified Status: Acute Assessment and Plan: * precipitated by hypoglycemia and bradycardia * ROSC after ~ 5 minuts * s/p 1 round of epinephritine, bicarb, calcium chloride * seemed more a respiratory arrest based on code blue note * was on levophed post cardiac arrest but this has been weaned off (3) Bacteremia: Code(s): R78.81 - Bacteremia Status: Acute Assessment and Plan: * staph bacteremia on 12/26 by admission cultures * repeat blood cultures - growth to date. * on Vancomycin - will need this for 6 weeks * source -- decubitus ulcers versus tunneled HD catheter versus something else? * HD catheter was recently exchanged * wounds undergoing dressing changes * still on ertapenem as well (4) Acute respiratory failure: Code(s): J96.00 - Acute respiratory failure, unspecified whether with hypoxia or hyp ercapnia Status: Acute Assessment and Plan: * ongoing issues during this hosptial stay (on 01/02/23 and today) * suspect this may have led to cardiac arrest * on mechanical ventilation * on bronchodilators * weaning as tolerated (5) Hyperkalemia: Code(s): E87.5 - Hyperkalemia Status: Acute Assessment and Plan: * resolved * possibly due to hyper-catabolic state versus diet versus shortened dialysis treatments last week (6) Altered mental status: Code(s): R41.82 - Altered mental status, unspecified Status: Acute Assessment and Plan: * was improving prior to cardiac arrest * follow mentation off sedation * CT of brain noted (7) Anemia: Code(s): D64.9 - Anemia, unspecified Status: Chronic Assessment and Plan: * due to ESRD and possible acute illness * Epogen with HD * follow H/H (8) Decubitus ulcers: Code(s): L89.90 - Pressure ulcer of unspecified site, unspecified stage Status: Chronic Assessment and Plan: * local wound care * wound care nurse following (9) Diabetes: Qualifiers: Diabetes mellitus complication detail: with other circulatory complications Diabetes mellitus complication status: with circulatory complication Diabetes mellitus type: type 1 Qualified Code(s): E10.59 - Type 1 diabetes mellitus with other circulatory complications Code(s): E11.9 - Type 2 diabetes mellitus without complications Status: Chronic Assessment and Plan: * on Accu-Cheks * glycemic control per hospitalist/mix maker Will continue to follow. Subjective Date/time seen: 01/07/23 12:40 Remains intubated and on mechanical ventilation; tolerated hemodialysis yesterday but his fluctuating blood pressure resulted in limited fluid removal; off sedation and vasopressor therapy with relatively stable hemodynamics; no issues/events overnight or earlier this AM. Exam Narrative: General: ill appearing male intubated and on mechanical ventilation Heart: normal S1 and S2; no rub or gallop Lungs: coarse breath sounds; decrease at bases Abdomen: soft with + bowel sounds; colostomy noted Extremities: no cyanosis or clubbing; left A
--- NOTE | 2023-01-07 12:40 | PM.PNNEP ---
Progress Note: A&P Assessment and Plan (1) End stage renal disease: Code(s): N18.6 - End stage renal disease Status: Chronic Assessment and Plan: HD yesterday and continue M// schedule follow electrolytes, volume status, and clearance plan DUF session today for fluid removal (2) Cardiac arrest: Code(s): I46.9 - Cardiac arrest, cause unspecified Status: Acute Assessment and Plan: precipitated by hypoglycemia and bradycardia ROSC after ~ 5 minuts s/p 1 round of epinephritine, bicarb, calcium chloride seemed more a respiratory arrest based on code blue note was on levophed post cardiac arrest but this has been weaned off (3) Bacteremia: Code(s): R78.81 - Bacteremia Status: Acute Assessment and Plan: staph bacteremia on 12/26 by admission cultures repeat blood cultures - growth to date. on Vancomycin - will need this for 6 weeks source -- decubitus ulcers versus tunneled HD catheter versus something else? HD catheter was recently exchanged wounds undergoing dressing changes still on ertapenem as well (4) Acute respiratory failure: Code(s): J96.00 - Acute respiratory failure, unspecified whether with hypoxia or hypercapnia Status: Acute Assessment and Plan: ongoing issues during this hosptial stay (on 01/02/23 and today) suspect this may have led to cardiac arrest on mechanical ventilation on bronchodilators weaning as tolerated (5) Hyperkalemia: Code(s): E87.5 - Hyperkalemia Status: Acute Assessment and Plan: resolved possibly due to hyper-catabolic state versus diet versus shortened dialysis treatments last week (6) Altered mental status: Code(s): R41.82 - Altered mental status, unspecified Status: Acute Assessment and Plan: was improving prior to cardiac arrest follow mentation off sedation CT of brain noted (7) Anemia: Code(s): D64.9 - Anemia, unspecified Status: Chronic Assessment and Plan: due to ESRD and possible acute illness Epogen with HD follow H/H (8) Decubitus ulcers: Code(s): L89.90 - Pressure ulcer of unspecified site, unspecified stage Status: Chronic Assessment and Plan: local wound care wound care nurse following (9) Diabetes: Qualifiers: Diabetes mellitus complication detail: with other circulatory complications Diabetes mellitus complication status: with circulatory complication Diabetes mellitus type: type 1 Qualified Code(s): E10.59 - Type 1 diabetes mellitus with other circulatory complications Code(s): E11.9 - Type 2 diabetes mellitus without complications Status: Chronic Assessment and Plan: on Accu-Cheks 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 Subjective Date/time seen: 01/07/23 12:40 Remains intubated and on mechanical ventilation; tolerated hemodialysis yesterday but his fluctuating blood pressure resulted in limited fluid removal; off sedation and vasopressor therapy with relatively stable hemodynamics; no issues/events overnight or earlier this AM. Exam Narrative: General: ill appearing male intubated and on mechanical ventilation Heart: normal S1 and S2; no rub or gallop Lungs: coarse breath sounds; decrease at bases Abdomen: soft with + bowel sounds; colostomy noted Extremities: no cyanosis or clubbing; left AKA and right BKA Skin: wounds with dressings in place Objective Data Vital Signs Vital Signs: Vital Signs Temp Pulse Resp BP Pulse Ox O2 Del Method FiO2 01/07/23 12:00 99.6 F 90 16 109/69 100 01/07/23 12:00 90 16 100 Mechanical Ventilation 01/07/23 12:00 89 01/07/23 10:55 94 100 Mechanical Ventilation 01/07/23 10:00 99.8 F H 115 H 25 H 120/66 100 01/07/23 08:00 100 28 H 90 Mechanical Ventilation 01/07/23 08:00 99.2 F
[2023-01-07 13:30] LABS: Glucose Point of Care 216 mg/dl (65-105)
[2023-01-07 18:00] LABS: Glucose Point of Care 105 mg/dl (65-105)
[2023-01-07] MEDS: ALBUMIN HUMAN 25% 12.5 GM/50ML 50 ML IVPB (18:33)
[2023-01-07] MEDS: HEPARIN SODIUM 1,000 UNITS/ML VIAL 5000 UNITS (18:38)
[2023-01-07] MEDS: EPOETIN ALFA-EPBX 20,000 UNITS/ML VIAL 20000 UNITS IV PUSH (18:50)
[2023-01-07] MEDS: ERTAPENEM SODIUM 0.5 GM in SODIUM CHLORIDE 0.9% IV 50 ML IVPB (20:52)
[2023-01-07] MEDS: MINERAL OIL/WHITE PETROLATUM OINTMENT 1 APPLIC EACH EYE (20:56)
[2023-01-08] VITALS (29 sets, daily range): BP systolic 123–168; BP diastolic 72–104; PULSE 84–103; RESP 13–27; TEMP 36.8–37.8; O2SAT 95–100
[2023-01-08 00:30] LABS: Glucose Point of Care 298 mg/dl (65-105)
[2023-01-08] MEDS: INSULIN ASPART (*BKC) 100 UNITS/ML SUB-Q ×2 (01:38→04:42)
[2023-01-08] MEDS: LEVALBUTEROL NEB 1.25 MG/3 ML 0.63 MG INHALATION ×4 (02:40→19:43)
[2023-01-08 04:07] LABS: Glucose Point of Care 301 mg/dl (65-105)
[2023-01-08 04:57] LABS: Alveolar/Arterial O2 Gradient 71.4 mmHg; Base Excess ABG 4.9 mEq/l (+/-2.0); Carboxyhemoglobin 0.3 % THb (0-2.0); Fractional Inspired Oxygen 30 %; HCO3 ABG 28.3 mEq/l (22.0-26.0); Methemoglobin ABG 0.3 %THb (0-1.5); Oxyhemoglobin 96.5 % THb (90.0-100.0); PCO2 ABG 36.5 mmHg (35.0-45.0); PO2 ABG 99.6 mmHg (80.0-100.0); PO2 FiO2 Ratio Arterial Blood 3.32 %; Reduced Hemoglobin 2.9 %THb (0-5.0); Total Hemoglobin 8.7 g/dL (12.0-18.0)
[2023-01-08 05:00] LABS: Device VENTILATOR; Site Drawn RIGHT BRACHIAL; pH ABG 7.507 (7.350-7.450)
[2023-01-08 05:01] LABS: Arterial Blood Gas PEEP 5 cmH2O; Arterial Blood Gas Vent Mode ASV
[2023-01-08 05:02] LABS: Basophils Absolute Auto 0.1 K/mm3 (0.0-0.1); Basophils Percent Auto 0.8 % (0.2-1.2); Eosinophils Absolute Auto 0.6 K/mm3 (0-0.3); Eosinophils Percent Auto 4.2 % (0-4.4); Hematocrit 25.4 % (42.0-52.0); Hemoglobin 7.6 g/dL (14.0-18.0); Immature Granulocyte Absolute 0.08 K/mm3 (0.00-0.031); Immature Granulocyte Percent A 0.6 % (0-0.5); Lymphocytes Percent Auto 9.3 % (18.3-44.2); Mean Corpuscular HGB Conc 29.9 g/dl (32-36); Mean Corpuscular Hemoglobin 30.3 pg (26-34); Mean Corpuscular Volume 101.2 fl (80-100); Mean Platelet Volume 9.8 fl (7.4-10.4); Monocytes Absolute Auto 1.2 K/mm3 (0.1-0.6); Monocytes Percent Auto 8.7 % (2.6-8.5); Neutrophils Absolute Auto 10.7 K/mm3 (1.3-6.7); Neutrophils Percent Auto 76.4 % (45.5-73.1); Nucleated Red Blood Cells Perc 0.2 % (0.0-0.2); Platelet Count Result 500 k/mm3 (150-375); Red Blood Count 2.51 M/mm3 (4.6-6.20); Red Cell Distribution Width 21.1 % (11.5-14.5)
[2023-01-08 05:16] LABS: Alanine Aminotransferase 15 U/L (6-50); Albumin Level 3.6 g/dL (3.5-5.1); Alkaline Phosphatase 101 U/L (38-126); Anion Gap 9 mmol/L (8-16); Aspartate Amino Transferase 30 U/L (17-59); Bilirubin,Total 0.4 mg/dL (0.2-1.3); Blood Urea Nitrogen 43 mg/dL (9-20); Calcium 9.8 mg/dL (8.4-10.2); Carbon Dioxide 29 mmol/L (22-30); Chloride 100 mmol/L (98-107); Estimated Glomerular Filt Rate 25; Glucose 318 mg/dL (65-110); Magnesium 2.2 mg/dL (1.6-2.3); Phosphorus 3.7 mg/dL (2.5-4.5); Potassium 3.6 mmol/L (3.4-5.0); Sodium 138 mmol/L (137-145)
[2023-01-08 05:26] LABS: Anisocytosis 1+ (NORMAL); Hypochromasia 2+ (NORMAL); Platelet Estimate Increased (Adequate); Poikilocytosis 1+ (NORMAL)
[2023-01-08 05:28] LABS: Schistocytes None Seen (NORMAL)
[2023-01-08 05:30] LABS: Glucose Point of Care 133 mg/dl (65-105)
[2023-01-08] MEDS: ASPIRIN 325 MG TABLET PO (07:31)
[2023-01-08 07:36] LABS: Glucose Point of Care 167 mg/dl (65-105)
[2023-01-08] MEDS: ATORVASTATIN 40 MG TABLET 80 MG PO (08:01)
[2023-01-08] MEDS: carvediloL 3.125 MG TABLET PO ×2 (08:02→20:35)
[2023-01-08] MEDS: TICAGRELOR 60 MG TABLET PO (08:02)
[2023-01-08] MEDS: INSULIN GLARGINE (*BKC) 100 UNITS/ML 12 UNITS SUB-Q (08:02)
[2023-01-08] MEDS: VITAMIN B CMPLX/VIT C/FOLIC AC 1 CAPSULE 1 CAP PO (08:02)
[2023-01-08] MEDS: SOD HYPOCHLORITE 1/4 STRENGTH 473 ML 1 APPLIC TOPICAL ×2 (08:03→21:09)
[2023-01-08] MEDS: PANTOPRAZOLE SODIUM IV 40 MG VIAL IV PUSH (08:03)
[2023-01-08] MEDS: TOLNAFTATE 1% POWDER 45 GM BTL 1 APPLIC TOPICAL ×2 (08:03→21:09)
--- NOTE | 2023-01-08 09:22 | WPDINTPN ---
Progress Note: A&P Assessment and Plan (1) Cardiac arrest: Code(s): I46.9 - Cardiac arrest, cause unspecified Status: Acute Assessment and Plan: 01/05:Cardiac arrest could be related to hypoglycemia, bradycardia secondary to multiple causes. Received 1 round of epi, bicarb, calcium chloride before ROSC, time was approximately 5 minutes.Patient's initial rhythm according the code blue sheet was bradycardia, patient had more so a respiratory arrest. He was intubated during the code. -initially he was on Levophed briefly which was turned off after sedation was stopped -cardiac arrest likely related to severe hypoglycemia, no further recommendations from Cardiology -chronically elevated troponins, within baseline level. No ischemic changes noted on EKG, no evidence of ACS per Cardiology (2) Respiratory failure: Code(s): J96.90 - Respiratory failure, unspecified, unspecified whether with hypoxia or hypercapnia Status: Acute Assessment and Plan: Respiratory failure/respiratory arrest which may have led to the cardiac arrest -currently on CMV mode of ventilation, peep of 5, 30% FiO2 -ABGs reviewed -chest x-ray this morning: ??ET tube 6.4 cm above luciano; ideal range is 2 and 5 cm Persistent right lower lung infiltrate and/or atelectasis? -patient currently on vancomycin, imipenem -off sedation at this time, -continue bronchodilators -will place patient on pressure support ventilation and SBT and evaluate for extubation (3) Encephalopathy: Code(s): G93.40 - Encephalopathy, unspecified Status: Acute Assessment and Plan: Post cardiac arrest Encephalopathy: Much improved -off all sedation -continue to monitor neurological status -01/05 CT brain: No intracranial hemorrhage, mass, or acute infarct. 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 Atrophy and chronic white matter changes -keep off all sedation for now -ammonia levels within normal limits -patient definitely more awake, responsive, nods to questions (4) Sepsis: Code(s): A41.9 - Sepsis, unspecified organism Status: Acute Assessment and Plan: -12/26/2022 blood cultures are positive for Staph epidermidis and Staph hominis 2/2 bottles -12/27/2022 respiratory cultures grew ESBL E coli -12/27/2022 MRSA screen was negative -12/29/2022 repeat blood cultures: Negative x2 -01/05/2023 blood cultures have been obtained 01/05/2023: post arrest patient was hypotensive requiring Levophed -continue to maintain MAP > 65 mmHg for adequate end organ perfusion -patient was started on Zosyn by hospitalist, question of aspiration, Zosyn was discontinued -continues to be on vancomycin ertapenem -12/27/2022 Echocardiogram did not show any vegetations. He obviously may need julieth if bacteremia persists -Patient is not sure when he received the tunneled dialysis catheter and where it was done. He states it was probably done at [facility] few months ago but I do not see any operative note regarding tunneled dialysis catheter placement going back last year. -wound care team is following the patient (5) Hyperkalemia: Code(s): E87.5 - Hyperkalemia Status: Acute Assessment and Plan: Resolved -continue to monitor (6) End stage renal disease: Code(s): N18.6 - End stage renal disease Status: Chronic Assessment and Plan: Patient has a history of end-stage renal disease, on dialysis -he is very sensitive to volume overload and has been admitted to the hospital multiple times for the same reason -dialysis per Nephrology, (7) Pulmonary edema: Code(s): J81.1 - Chronic pulmonary edema Status: Acute Assessment and Plan: Continue dialysis per Nephrology (8) Decubitus ulcer of sacral area: Code(s): L89.159 - Pressure ulcer of sacral region, unspecified stage Status: Chronic Assessment and Plan: Wound care evaluated the patient and recommendations fo
--- NOTE | 2023-01-08 11:20 | PM.IMPN ---
Progress Note: A&P Assessment and Plan (1) Cardiac arrest: Code(s): I46.9 - Cardiac arrest, cause unspecified Status: Acute Assessment and Plan: Cardiac arrest could be related to hypoglycemia, bradycardia secondary to multiple causes. Received 1 round of epi, bicarb, calcium chloride before ROSC, time was approximately 5 minutes.Patient's initial rhythm according the code blue sheet was bradycardia, patient had more so a respiratory arrest. He was intubated during the code. -initially he was on Levophed briefly which was turned off after sedation was stopped (2) Respiratory failure: Code(s): J96.90 - Respiratory failure, unspecified, unspecified whether with hypoxia or hypercapnia Status: Acute Assessment and Plan: Respiratory failure/respiratory arrest which may have led to the cardiac arrest -currently on CMV mode of ventilation, peep of 5, 30% FiO2 (3) Encephalopathy: Code(s): G93.40 - Encephalopathy, unspecified Status: Acute Assessment and Plan: Post cardiac arrest Encephalopathy: Much improved -off all sedation (4) Sepsis: Code(s): A41.9 - Sepsis, unspecified organism Status: Acute Assessment and Plan: continue supportive care (5) Hyperkalemia: Code(s): E87.5 - Hyperkalemia Status: Acute Assessment and Plan: Resolved -continue to monitor (6) End stage renal disease: Code(s): N18.6 - End stage renal disease Status: Chronic Assessment and Plan: Patient has a history of end-stage renal disease, on dialysis -he is very sensitive to volume overload and has been admitted to the hospital multiple times for the same reason -dialysis per Nephrology, (7) Pulmonary edema: Code(s): J81.1 - Chronic pulmonary edema Status: Acute Assessment and Plan: Continue dialysis per Nephrology (8) Decubitus ulcer of sacral area: Code(s): L89.159 - Pressure ulcer of sacral region, unspecified stage Status: Chronic Assessment and Plan: Wound care evaluated the patient and recommendations for wound care appreciated (9) IDDM (insulin dependent diabetes mellitus): Status: Chronic Assessment and Plan: Continue sliding scale insulin Accu-Chek Patient was hyperglycemic this morning, increase to high-dose sliding scale -blood sugars have been elevated, continue Lantus (10) Anemia: Code(s): D64.9 - Anemia, unspecified Status: Acute Assessment and Plan: Hemoglobin has remained stable since 12/28 -anemia is likely multifactorial -patient is on Epogen per Nephrology -status post IV iron 12/27 Patient was transfused 1 unit PRBC Continue IV PPI Continue aspirin and Brilinta. Continue Monitoring hemoglobin which has been stable Subjective Date/time seen: 01/08/23 11:20 Still intubated Exam Narrative: General: Is intubated, not on sedation, in no distress Lungs/Chest: Coarse breath sounds bilaterally right > left , decreased in bases, adequate air entry. Hemodialysis tunnel catheter in right anterior chest, left IJ central venous catheter Cardiac: Sinus tachycardia Abdomen: Normoactive bowel sounds bowel sounds. Soft. NT. ND. Left lower quadrant colostomy with brown stool Extremities: Bilateral BKA, : Baptiste in place Neurologic: Patient is intubated, off all sedation, he is more awake this morning, moving his upper extremities, nods to questions. Skin: Large decubitus wound in sacral area and hip Objective Data Vital Signs Vital Signs: Vital Signs - 24 hr 01/07/23 12:00 01/07/23 12:00 01/07/23 12:00 Temperature 99.6 F Pulse Rate 89 90 90 Respiratory Rate 16 16 Blood Pressure 109/69 Pulse Oximetry 100 100 Oxygen Delivery Mechanical Ventilation Fraction of Inspired Oxygen 30 01/07/23 12:00 01/07/23 14:00 01/07/23 14:00 Temperature 99.6 F Pulse Rate 88 88 Respiratory Rate 15 Blood Pressure 109/66 Pul
--- NOTE | 2023-01-08 11:43 | P.PNNP_ITS ---
Progress Note: A&P Assessment and Plan (1) End stage renal disease: Code(s): N18.6 - End stage renal disease Status: Chronic Assessment and Plan: * HD tomorrow and continue // schedule * follow electrolytes, volume status, and clearance (2) Cardiac arrest: Code(s): I46.9 - Cardiac arrest, cause unspecified Status: Acute Assessment and Plan: * precipitated by hypoglycemia and bradycardia * ROSC after ~ 5 minuts * s/p 1 round of epinephritine, bicarb, calcium chloride * seemed more a respiratory arrest based on code blue note * was on levophed post cardiac arrest but this has been weaned off (3) Bacteremia: Code(s): R78.81 - Bacteremia Status: Acute Assessment and Plan: * Staph bacteremia on 12/26 by admission cultures * repeat blood cultures - growth to date. * on Vancomycin - will need this for 6 weeks * source -- decubitus ulcers versus tunneled HD catheter versus something else? * HD catheter was recently exchanged * wounds undergoing dressing changes * still on ertapenem as well (4) Acute respiratory failure: Code(s): J96.00 - Acute respiratory failure, unspecified whether with hypoxia or hypercapnia Status: Acute Assessment and Plan: * ongoing issues during this hosptial stay (on 01/02/23 and 01/06/23) * suspect this may have led to cardiac arrest * on mechanical ventilation * on bronchodilators * weaning as tolerated (5) Hyperkalemia: Code(s): E87.5 - Hyperkalemia Status: Acute Assessment and Plan: * resolved * possibly due to hyper-catabolic state versus diet versus shortened dialysis treatments last week (6) Altered mental status: Code(s): R41.82 - Altered mental status, unspecified Status: Acute Assessment and Plan: * was improving prior to cardiac arrest * appears stable at this time * follow mentation off sedation * CT of brain noted (7) Anemia: Code(s): D64.9 - Anemia, unspecified Status: Chronic Assessment and Plan: * due to ESRD and possible acute illness * Epogen with HD * follow H/H (8) Decubitus ulcers: Code(s): L89.90 - Pressure ulcer of unspecified site, unspecified stage Status: Chronic Assessment and Plan: * local wound care * wound care nurse following (9) Diabetes: Qualifiers: Diabetes mellitus complication detail: with other circulatory complications Diabetes mellitus complication status: with circulatory complication Diabetes mellitus type: type 1 Qualified Code(s): E10.59 - Type 1 diabetes mellitus with other circulatory complications Code(s): E11.9 - Type 2 diabetes mellitus without complications Status: Chronic Assessment and Plan: * on Accu-Cheks * glycemic control per hospitalist/[place] operator Will continue to follow. Subjective Date/time seen: 01/08/23 11:43 Tolerated DUF treatment yesterday with 2L fluid removal; remains intubated and on mechanical ventilation but off sedation; remains hemodynamically stable with the need of vasopressor therapy; nods head to yes/no questions and follows si mple commands; no apparent distress noted at the time of my visit. Exam Narrative: General: ill appearing male intubated and on mechanical ventilation Heart: normal S1 and S2; no rub or gallop Lungs: coarse breath sounds; decrease at bases Abdomen: soft with + bowel sounds; colostomy noted Extremities: no cyanosis or
--- NOTE | 2023-01-08 11:43 | PM.PNNEP ---
Progress Note: A&P Assessment and Plan (1) End stage renal disease: Code(s): N18.6 - End stage renal disease Status: Chronic Assessment and Plan: HD tomorrow and continue M/W/ schedule follow electrolytes, volume status, and clearance (2) Cardiac arrest: Code(s): I46.9 - Cardiac arrest, cause unspecified Status: Acute Assessment and Plan: precipitated by hypoglycemia and bradycardia ROSC after ~ 5 minuts s/p 1 round of epinephritine, bicarb, calcium chloride seemed more a respiratory arrest based on code blue note was on levophed post cardiac arrest but this has been weaned off (3) Bacteremia: Code(s): R78.81 - Bacteremia Status: Acute Assessment and Plan: Staph bacteremia on 12/26 by admission cultures repeat blood cultures - growth to date. on Vancomycin - will need this for 6 weeks source -- decubitus ulcers versus tunneled HD catheter versus something else? HD catheter was recently exchanged wounds undergoing dressing changes still on ertapenem as well (4) Acute respiratory failure: Code(s): J96.00 - Acute respiratory failure, unspecified whether with hypoxia or hypercapnia Status: Acute Assessment and Plan: ongoing issues during this hosptial stay (on 01/02/23 and 01/06/23) suspect this may have led to cardiac arrest on mechanical ventilation on bronchodilators weaning as tolerated (5) Hyperkalemia: Code(s): E87.5 - Hyperkalemia Status: Acute Assessment and Plan: resolved possibly due to hyper-catabolic state versus diet versus shortened dialysis treatments last week (6) Altered mental status: Code(s): R41.82 - Altered mental status, unspecified Status: Acute Assessment and Plan: was improving prior to cardiac arrest appears stable at this time follow mentation off sedation CT of brain noted (7) Anemia: Code(s): D64.9 - Anemia, unspecified Status: Chronic Assessment and Plan: due to ESRD and possible acute illness Epogen with HD follow H/H (8) Decubitus ulcers: Code(s): L89.90 - Pressure ulcer of unspecified site, unspecified stage Status: Chronic Assessment and Plan: local wound care wound care nurse following (9) Diabetes: Qualifiers: Diabetes mellitus complication detail: with other circulatory complications Diabetes mellitus complication status: with circulatory complication Diabetes mellitus type: type 1 Qualified Code(s): E10.59 - Type 1 diabetes mellitus with other circulatory complications Code(s): E11.9 - Type 2 diabetes mellitus without complications Status: Chronic Assessment and Plan: on Accu-Cheks glycemic control per 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 Subjective Date/time seen: 01/08/23 11:43 Tolerated DUF treatment yesterday with 2L fluid removal; remains intubated and on mechanical ventilation but off sedation; remains hemodynamically stable with the need of vasopressor therapy; nods head to yes/no questions and follows simple commands; no apparent distress noted at the time of my visit. Exam Narrative: General: ill appearing male intubated and on mechanical ventilation Heart: normal S1 and S2; no rub or gallop Lungs: coarse breath sounds; decrease at bases Abdomen: soft with + bowel sounds; colostomy noted Extremities: no cyanosis or clubbing; left AKA and right BKA Skin: wounds with dressings in place Objective Data Vital Signs Vital Signs: Vital Signs Temp Pulse Resp BP Pulse Ox O2 Del Method FiO2 01/08/23 10:00 99.5 F 86 22 H 130/76 100 01/08/23 10:00 86 01/08/23 10:41 86 100 Mechanical Ventilation 01/08/23 10:29 84 100 Mechanical Ventilation 01/08/23 08:30 85 21 H 01/08/23 08:28 85 100 Mechanical Ventilation 01/08/23 08:18 88 15 12/15
[2023-01-08 13:07] LABS: Glucose Point of Care 167 mg/dl (65-105)
[2023-01-08 14:25] LABS: Alveolar/Arterial O2 Gradient 87.2 mmHg; Base Excess ABG 1.5 mEq/l (+/-2.0); Fractional Inspired Oxygen 30 %; HCO3 ABG 24.8 mEq/l (22.0-26.0); Oxygen Content ABG 12.2 %vol (16.0-22.0); Oxygen Saturation ABG 97.3 % (95.0-100.0); Oxyhemoglobin 94.6 % THb (90.0-100.0); PCO2 ABG 33.8 mmHg (35.0-45.0); Total Hemoglobin 9.1 g/dL (12.0-18.0); pH ABG 7.483 (7.350-7.450)
[2023-01-08 14:26] LABS: Device VENTILATOR; Modified Allen's Test Pass; Site Drawn RIGHT RADIAL
[2023-01-08 14:27] LABS: Arterial Blood Gas PEEP 5 cmH2O; Arterial Blood Gas Pressure Support 8 cmH2O; Arterial Blood Gas Vent Mode SPONTANEOUS
[2023-01-08] MEDS: ACETAMINOPHEN 325 MG TABLET 650 MG FEED TUBE (14:37)
[2023-01-08] MEDS: CENTRAL LINE FLUSH 10 ML IV PUSH ×3 (14:38→21:09)
[2023-01-08 18:04] LABS: Glucose Point of Care 83 mg/dl (65-105)
[2023-01-08 19:05] LABS: Glucose Point of Care 65 mg/dl (65-105)
[2023-01-08] MEDS: DEXTROSE 50% 25 GM/50 ML SYRINGE IV PUSH (19:05)
[2023-01-08 19:44] LABS: Glucose Point of Care 141 mg/dl (65-105)
[2023-01-09] VITALS (41 sets, daily range): BP systolic 104–176; BP diastolic 74–100; PULSE 30–120; RESP 22–37; TEMP 36.5–37.4; O2SAT 91–99
[2023-01-09 00:04] LABS: Glucose Point of Care 100 mg/dl (65-105)
[2023-01-09] MEDS: LEVALBUTEROL NEB 1.25 MG/3 ML 0.63 MG INHALATION ×4 (02:17→20:48)
[2023-01-09 05:08] LABS: Alveolar/Arterial O2 Gradient 46.2 mmHg; Base Excess ABG 3.1 mEq/l (+/-2.0); Carboxyhemoglobin 1.2 % THb (0-2.0); Fractional Inspired Oxygen 21 %; HCO3 ABG 27.5 mEq/l (22.0-26.0); Methemoglobin ABG 0.3 %THb (0-1.5); Oxygen Content ABG 13.2 %vol (16.0-22.0); Oxygen Saturation ABG 89.4 % (95.0-100.0); PCO2 ABG 41.1 mmHg (35.0-45.0); PO2 ABG 54.3 mmHg (80.0-100.0); PO2 FiO2 Ratio Arterial Blood 2.59 %; pH ABG 7.443 (7.350-7.450)
[2023-01-09 05:11] LABS: Modified Allen's Test Pass; Oxyhemoglobin 85.5 % THb (90.0-100.0); Site Drawn RIGHT RADIAL
[2023-01-09 05:12] LABS: Device ROOM AIR
[2023-01-09 05:58] LABS: Basophils Absolute Auto 0.1 K/mm3 (0.0-0.1); Basophils Percent Auto 0.9 % (0.2-1.2); Eosinophils Absolute Auto 0.6 K/mm3 (0-0.3); Hematocrit 29.3 % (42.0-52.0); Hemoglobin 8.8 g/dL (14.0-18.0); Immature Granulocyte Absolute 0.07 K/mm3 (0.00-0.031); Immature Granulocyte Percent A 0.5 % (0-0.5); Lymphocytes Absolute Auto 1.51 K/mm3 (0.9-3.2); Lymphocytes Percent Auto 10.2 % (18.3-44.2); Mean Corpuscular Hemoglobin 30.1 pg (26-34); Mean Corpuscular Volume 100.3 fl (80-100); Mean Platelet Volume 10.1 fl (7.4-10.4); Monocytes Absolute Auto 1.1 K/mm3 (0.1-0.6); Monocytes Percent Auto 7.2 % (2.6-8.5); Neutrophils Absolute Auto 11.4 K/mm3 (1.3-6.7); Neutrophils Percent Auto 77.2 % (45.5-73.1); Nucleated Red Blood Cells Perc 0.2 % (0.0-0.2); Platelet Count Result 628 k/mm3 (150-375); Red Blood Count 2.92 M/mm3 (4.6-6.20); White Blood Count 14.8 K/mm3 (4.5-10.0)
[2023-01-09] MEDS: CENTRAL LINE FLUSH 10 ML IV PUSH ×4 (06:07→20:30)
[2023-01-09 06:22] LABS: Alanine Aminotransferase 12 U/L (6-50); Albumin Level 3.5 g/dL (3.5-5.1); Alkaline Phosphatase 120 U/L (38-126); Anion Gap 9 mmol/L (8-16); Aspartate Amino Transferase 29 U/L (17-59); Bilirubin,Total 0.5 mg/dL (0.2-1.3); Blood Urea Nitrogen 55 mg/dL (9-20); Calcium 9.8 mg/dL (8.4-10.2); Carbon Dioxide 28 mmol/L (22-30); Chloride 100 mmol/L (98-107); Estimated Glomerular Filt Rate 17; Glucose 235 mg/dL (65-110); Magnesium 2.3 mg/dL (1.6-2.3); Phosphorus 4.4 mg/dL (2.5-4.5); Potassium 3.7 mmol/L (3.4-5.0); Sodium 137 mmol/L (137-145)
[2023-01-09] MEDS: INSULIN ASPART (*BKC) 100 UNITS/ML SUB-Q ×4 (06:41→20:29)
[2023-01-09 07:32] LABS: Glucose Point of Care 257 mg/dl (65-105)
[2023-01-09 07:58] LABS: Glucose Point of Care 247 mg/dl (65-105)
[2023-01-09 08:54] LABS: Vancomycin Random 27.4 ug/mL (10-20)
--- NOTE | 2023-01-09 09:21 | WPDINTPN ---
Progress Note: A&P Assessment and Plan (1) Cardiac arrest: Code(s): I46.9 - Cardiac arrest, cause unspecified Status: Acute Assessment and Plan: 01/05:Cardiac arrest could be related to hypoglycemia, bradycardia secondary to multiple causes. Received 1 round of epi, bicarb, calcium chloride before ROSC, time was approximately 5 minutes.Patient's initial rhythm according the code blue sheet was bradycardia, patient had more so a respiratory arrest. He was intubated during the code. -initially he was on Levophed briefly which was turned off after sedation was stopped -cardiac arrest likely related to severe hypoglycemia, no further recommendations from Cardiology -chronically elevated troponins, within baseline level. No ischemic changes noted on EKG, no evidence of ACS per Cardiology (2) Respiratory failure: Code(s): J96.90 - Respiratory failure, unspecified, unspecified whether with hypoxia or hypercapnia Status: Acute Assessment and Plan: Respiratory failure/respiratory arrest which may have led to the cardiac arrest, intubated on 01/05/2023 -extubated on 01/08/2023 - -patient currently on vancomycin, imipenem -continue bronchodilators -speech therapy evaluated the patient early this morning, I have recommended modified barium swallow which has been ordered (3) Encephalopathy: Code(s): G93.40 - Encephalopathy, unspecified Status: Acute Assessment and Plan: RESOLVED Post cardiac arrest Encephalopathy: Much improved -off all sedation -continue to monitor neurological status -01/05 CT brain: No intracranial hemorrhage, mass, or acute infarct. 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 Atrophy and chronic white matter changes -ammonia levels within normal limits -patien awake, talking, answers to questions and follows commands (4) Sepsis: Code(s): A41.9 - Sepsis, unspecified organism Status: Acute Assessment and Plan: -12/26/2022 blood cultures are positive for Staph epidermidis and Staph hominis 2/2 bottles -12/27/2022 respiratory cultures grew ESBL E coli -12/27/2022 MRSA screen was negative -12/29/2022 repeat blood cultures: Negative x2 -01/05/2023 blood cultures have been obtained 01/05/2023: post arrest patient was hypotensive requiring Levophed -continue to maintain MAP > 65 mmHg for adequate end organ perfusion -patient was started on Zosyn by hospitalist, question of aspiration, Zosyn was discontinued -continues to be on vancomycin ertapenem -12/27/2022 Echocardiogram did not show any vegetations. He obviously may need julieth if bacteremia persists -Patient is not sure when he received the tunneled dialysis catheter and where it was done. He states it was probably done at [facility] few months ago but I do not see any operative note regarding tunneled dialysis catheter placement going back last year. -wound care team is following the patient (5) Hyperkalemia: Code(s): E87.5 - Hyperkalemia Status: Acute Assessment and Plan: Resolved -continue to monitor (6) End stage renal disease: Code(s): N18.6 - End stage renal disease Status: Chronic Assessment and Plan: Patient has a history of end-stage renal disease, on dialysis -he is very sensitive to volume overload and has been admitted to the hospital multiple times for the same reason -dialysis per Nephrology, (7) Pulmonary edema: Code(s): J81.1 - Chronic pulmonary edema Status: Acute Assessment and Plan: Continue dialysis per Nephrology (8) Decubitus ulcer of sacral area: Code(s): L89.159 - Pressure ulcer of sacral region, unspecified stage Status: Chronic Assessment and Plan: Wound care evaluated the patient and recommendations for wound care appreciated (9) IDDM (insulin dependent diabetes mellitus): Status: Chronic Assessment and Plan: Continue sliding scale insulin Accu-Chek Patient
--- NOTE | 2023-01-09 10:20 | PCSTNOTE ---
Please refer to the Modified Barium Swallow Evaluation in the EMR.
--- NOTE | 2023-01-09 10:20 | PCSTNOTE ---
Please refer to the Bedside Swallow Evaluation in the EMR. Please note, silent aspiration cannot be ruled out at bedside.
--- NOTE | 2023-01-09 11:10 | PCFNICU ---
ICU Rounding Note: Pt current nutrition is Just advanced to moderately thick liquids, minced & moist level 5 diet per speech eval. Nutrition recommendation: Ensure Enlive TID for additional 350 kcals and 20 g protein each. Raafl BID for additional 90 kcals, 2.5 g protein, arginine and glutamine to support wound healing. Last recorded weight is 38.9 kg. 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 Speech eval today, okay for oral diet. Adding supplements. Need to be honey/moderately thick. Following daily in ICU rounds. Will reassess every Monday and Monday..
--- NOTE | 2023-01-09 11:18 | PM.IMPN ---
Progress Note: A&P Assessment and Plan (1) Cardiac arrest: Code(s): I46.9 - Cardiac arrest, cause unspecified Status: Acute Assessment and Plan: Resolved (2) Respiratory failure: Code(s): J96.90 - Respiratory failure, unspecified, unspecified whether with hypoxia or hypercapnia Status: Acute Assessment and Plan: Respiratory failure/respiratory arrest which may have led to the cardiac arrest, intubated on 01/05/2023 -extubated on 01/08/2023 - -patient currently on vancomycin, ertapenem -continue bronchodilators (3) Encephalopathy: Code(s): G93.40 - Encephalopathy, unspecified Status: Acute Assessment and Plan: Improved (4) Sepsis: Code(s): A41.9 - Sepsis, unspecified organism Status: Acute Assessment and Plan: -12/26/2022 blood cultures are positive for Staph epidermidis and Staph hominis / bottles -12/27/2022 respiratory cultures grew ESBL E coli -12/27/2022 MRSA screen was negative -12/29/2022 repeat blood cultures: Negative x2 -01/05/2023 blood cultures have been obtained 01/05/2023: post arrest patient was hypotensive requiring Levophed -continue to maintain MAP > 65 mmHg for adequate end organ perfusion -patient was started on Zosyn by hospitalist, question of aspiration, Zosyn was discontinued -continues to be on vancomycin ertapenem -12/27/2022 Echocardiogram did not show any vegetations. He obviously may need julieth if bacteremia persists -Patient is not sure when he received the tunneled dialysis catheter and where it was done. He states it was probably done at [facility] few months ago but I do not see any operative note regarding tunneled dialysis catheter placement going back last year. -wound care team is following the patient (5) Hyperkalemia: Code(s): E87.5 - Hyperkalemia Status: Acute Assessment and Plan: Resolved -continue to monitor (6) End stage renal disease: Code(s): N18.6 - End stage renal disease Status: Chronic Assessment and Plan: Patient has a history of end-stage renal disease, on dialysis -he is very sensitive to volume overload and has been admitted to the hospital multiple times for the same reason -dialysis per Nephrology, (7) Pulmonary edema: Code(s): J81.1 - Chronic pulmonary edema Status: Acute Assessment and Plan: Continue dialysis per Nephrology (8) Decubitus ulcer of sacral area: Code(s): L89.159 - Pressure ulcer of sacral region, unspecified stage Status: Chronic Assessment and Plan: Wound care evaluated the patient and recommendations for wound care appreciated (9) IDDM (insulin dependent diabetes mellitus): Status: Chronic Assessment and Plan: Monitor blood sugar. (10) Anemia: Code(s): D64.9 - Anemia, unspecified Status: Acute Assessment and Plan: Continue to monitor H&H Transfuse as needed Subjective Date/time seen: 01/09/23 11:18 Patient has been extubated. Appears to be breathing his own without any issues. Currently on 3L of oxygen Exam Narrative: General: Patient is awake, alert, in no distress Lungs/Chest: Coarse breath sounds bilaterally right > left , decreased in bases, adequate air entry. Hemodialysis tunnel catheter in right anterior chest, left IJ central venous catheter Cardiac: Sinus tachycardia Abdomen: Normoactive bowel sounds bowel sounds. Soft. NT. ND. Left lower quadrant colostomy with brown stool Extremities: Bilateral BKA, : Baptiste in place Neurologic: Patient has been extubated on 01/08, is awake, alert, able to answer questions and follows simple commands upper extremities, Skin: Large decubitus wound in sacral area and hip Objective Data Vital Signs Vital Signs: Vital Signs - 24 hr 01/08/23 12:00 01/08/23 12:00 01/08/23 12:00 Temperature 99.7 F H Pulse Rate 92 90 Respiratory Rate 22 H Blood Pressure 123/76 Pul
[2023-01-09] MEDS: TOLNAFTATE 1% POWDER 45 GM BTL 1 APPLIC TOPICAL ×2 (11:32→20:15)
[2023-01-09] MEDS: VITAMIN B CMPLX/VIT C/FOLIC AC 1 CAPSULE 1 CAP PO (11:32)
[2023-01-09] MEDS: PANTOPRAZOLE SODIUM IV 40 MG VIAL IV PUSH (11:33)
[2023-01-09] MEDS: TICAGRELOR 60 MG TABLET PO (11:33)
[2023-01-09] MEDS: carvediloL 3.125 MG TABLET PO ×2 (11:33→20:14)
[2023-01-09] MEDS: SOD HYPOCHLORITE 1/4 STRENGTH 473 ML 1 APPLIC TOPICAL ×2 (11:33→20:15)
[2023-01-09] MEDS: ATORVASTATIN 40 MG TABLET 80 MG PO (11:34)
[2023-01-09] MEDS: ALTEPLASE 2 MG VIAL (CATHFLO) IV PUSH (11:35)
[2023-01-09 11:38] LABS: Glucose Point of Care 314 mg/dl (65-105)
[2023-01-09 14:56] LABS: Glucose Point of Care 289 mg/dl (65-105)
[2023-01-09] MEDS: ASPIRIN 325 MG TABLET PO (15:05)
[2023-01-09] MEDS: EPOETIN ALFA-EPBX 10,000 UNITS/ML VIAL 10000 UNITS IV PUSH (16:17)
[2023-01-09] MEDS: HEPARIN SODIUM 1,000 UNITS/ML VIAL 6000 UNITS (16:19)
[2023-01-09] MEDS: SODIUM CHLORIDE 0.9% IV 1,000 ML 999 ML IV CONT ×2 (16:32→16:33)
--- NOTE | 2023-01-09 16:48 | P.PNNP_ITS ---
Progress Note: A&P Assessment and Plan (1) End stage renal disease: Code(s): N18.6 - End stage renal disease Status: Chronic Assessment and Plan: * HD today and continue // schedule * follow electrolytes, volume status, and clearance (2) Cardiac arrest: Code(s): I46.9 - Cardiac arrest, cause unspecified Status: Acute Assessment and Plan: * precipitated by hypoglycemia and bradycardia * ROSC after ~ 5 minuts * s/p 1 round of epinephritine, bicarb, calcium chloride * seemed more a respiratory arrest based on code blue note * was on levophed post cardiac arrest but this has been weaned off (3) Bacteremia: Code(s): R78.81 - Bacteremia Status: Acute Assessment and Plan: * Staph bacteremia on 12/26 by admission cultures * repeat blood cultures - growth to date. * on Vancomycin - will need this for 6 weeks * source -- decubitus ulcers versus tunneled HD catheter versus something else? * HD catheter was recently exchanged * wounds undergoing dressing changes * still on ertapenem as well (4) Acute respiratory failure: Code(s): J96.00 - Acute respiratory failure, unspecified whether with hypoxia or hypercapnia Status: Acute Assessment and Plan: * resolving - extubated today * ongoing issues during this hosptial stay (on 01/02/23 and 01/06/23) * suspect this may have led to cardiac arrest (5) Altered mental status: Code(s): R41.82 - Altered mental status, unspecified Status: Acute Assessment and Plan: * improving prior to cardiac arrest * appears stable at this time * follow mentation * CT of brain noted (6) Anemia: Code(s): D64.9 - Anemia, unspecified Status: Chronic Assessment and Plan: * due to ESRD and possible acute illness * Epogen with HD * follow H/H (7) Decubitus ulcers: Code(s): L89.90 - Pressure ulcer of unspecified site, unspecified stage Status: Chronic Assessment and Plan: * local wound care * wound care nurse following (8) Diabetes: Qualifiers: Diabetes mellitus complication detail: with other circulatory complications Diabetes mellitus complication status: with circulatory complication Diabetes mellitus type: type 1 Qualified Code(s): E10.59 - Type 1 diabetes mellitus with other circulatory complications Code(s): E11.9 - Type 2 diabetes mellitus without complications Status: Chronic Assessment and Plan: * on Accu-Cheks * glycemic control per hospitalist/staffing manager Will continue to follow. Subjective Date/time seen: 01/09/23 16:48 Tolerating dialysis treament at the time of my visit (seen on HD at 4:30PM); successfully extubated earlier today without any issue or problems; hemodynamically stable; mentation seems intact; no other acute issues/events overnight or earlier this AM. Exam Narrative: General: ill appearing male in NAD Heart: normal S1 and S2; no rub or gallop Lungs: coarse breath sounds; decrease at bases Abdomen: soft with + bowel sounds; colostomy noted Extremities: no cyanosis or clubbing; left AKA and right BKA Skin: wounds with dressings in place Objective Data Vital Signs Vital Signs: Vital Signs Temp Pulse Resp BP Pulse Ox O2 Del Method O2 Flow Rate 01/09/23 16:45 115 H 149/96 H 01/09/23 16:30 109 H
--- NOTE | 2023-01-09 16:48 | PM.PNNEP ---
Progress Note: A&P Assessment and Plan (1) End stage renal disease: Code(s): N18.6 - End stage renal disease Status: Chronic Assessment and Plan: HD today and continue M/W/ schedule follow electrolytes, volume status, and clearance (2) Cardiac arrest: Code(s): I46.9 - Cardiac arrest, cause unspecified Status: Acute Assessment and Plan: precipitated by hypoglycemia and bradycardia ROSC after ~ 5 minuts s/p 1 round of epinephritine, bicarb, calcium chloride seemed more a respiratory arrest based on code blue note was on levophed post cardiac arrest but this has been weaned off (3) Bacteremia: Code(s): R78.81 - Bacteremia Status: Acute Assessment and Plan: Staph bacteremia on 12/26 by admission cultures repeat blood cultures - growth to date. on Vancomycin - will need this for 6 weeks source -- decubitus ulcers versus tunneled HD catheter versus something else? HD catheter was recently exchanged wounds undergoing dressing changes still on ertapenem as well (4) Acute respiratory failure: Code(s): J96.00 - Acute respiratory failure, unspecified whether with hypoxia or hypercapnia Status: Acute Assessment and Plan: resolving - extubated today ongoing issues during this hosptial stay (on 01/02/23 and 01/06/23) suspect this may have led to cardiac arrest (5) Altered mental status: Code(s): R41.82 - Altered mental status, unspecified Status: Acute Assessment and Plan: improving prior to cardiac arrest appears stable at this time follow mentation CT of brain noted (6) Anemia: Code(s): D64.9 - Anemia, unspecified Status: Chronic Assessment and Plan: due to ESRD and possible acute illness Epogen with HD follow H/H (7) Decubitus ulcers: Code(s): L89.90 - Pressure ulcer of unspecified site, unspecified stage Status: Chronic Assessment and Plan: local wound care wound care nurse following (8) Diabetes: Qualifiers: Diabetes mellitus complication detail: with other circulatory complications Diabetes mellitus complication status: with circulatory complication Diabetes mellitus type: type 1 Qualified Code(s): E10.59 - Type 1 diabetes mellitus with other circulatory complications Code(s): E11.9 - Type 2 diabetes mellitus without complications Status: Chronic Assessment and Plan: on Accu-Cheks glycemic control per hospitalist/material handler floorperson Will continue to follow. Subjective Date/time seen: 01/09/23 16:48 Tolerating dialysis treament at the time of my visit (seen on HD at 4:30PM); successfully extubated earlier today without any issue or problems; hemodynamically stable; mentation seems intact; no other acute issues/events overnight or earlier this AM. Exam Narrative: General: ill appearing male in NAD Heart: normal S1 and S2; no rub or gallop Lungs: coarse breath sounds; decrease at bases Abdomen: soft with + bowel sounds; colostomy noted Extremities: no cyanosis or clubbing; left AKA and right BKA Skin: wounds with dressings in place Objective Data Vital Signs Vital Signs: Vital Signs Temp Pulse Resp BP Pulse Ox O2 Del Method O2 Flow Rate 01/09/23 16:45 115 H 149/96 H 01/09/23 16:30 109 H 146/91 H 01/09/23 16:15 108 H 144/90 H 01/09/23 16:00 106 H 140/90 01/09/23 16:00 107 H 01/09/23 17:15 100 141/92 H 01/09/23 15:40 2 01/09/23 15:15 99.3 F 105 H 28 H 163/96 H 01/09/23 15:54 106 H 171/99 H 01/09/23 16:00 99.3 F 108 H 24 H 144/90 H 96 01/09/23 13:50 106 H 30 H 01/09/23 13:40 105 H 28 H 01/09/23 12:00 115 H 01/09/23 11:33 112 H 01/09/23 10:00 99.3 F 111 H 28 H 151/90 H 98 01/09/23 10:00 111 H 01/09/23 08:00 109 H 01/09/23 08:00 30 L 95 Nasal C
[2023-01-09] MEDS: LORazepam (*CRX) 1 MG TABLET PO (17:57)
[2023-01-09] MEDS: ACETAMINOPHEN 325 MG TABLET 650 MG FEED TUBE (17:57)
[2023-01-09 18:14] LABS: Glucose Point of Care 254 mg/dl (65-105)
[2023-01-09] MEDS: ERTAPENEM SODIUM 0.5 GM in SODIUM CHLORIDE 0.9% IV 50 ML IVPB (20:12)
[2023-01-09] MEDS: calcitrioL 0.25 MCG CAPSULE 1.25 MCG PO (20:13)
[2023-01-09] MEDS: MINERAL OIL/WHITE PETROLATUM OINTMENT 1 APPLIC EACH EYE (20:14)
[2023-01-09] MEDS: CINACALCET 30 MG TABLET 90 MG PO (20:14)
[2023-01-09 20:22] LABS: Glucose Point of Care 211 mg/dl (65-105)
[2023-01-09 23:39] LABS: Glucose Point of Care 155 mg/dl (65-105)
[2023-01-10] VITALS (41 sets, daily range): BP systolic 57–173; BP diastolic 46–84; PULSE 91–112; RESP 18–28; TEMP 36.5–38.5; O2SAT 90–100
[2023-01-10] MEDS: LEVALBUTEROL NEB 1.25 MG/3 ML 0.63 MG INHALATION ×4 (03:06→20:24)
[2023-01-10 04:49] LABS: Basophils Absolute Auto 0.2 K/mm3 (0.0-0.1); Basophils Percent Auto 1.4 % (0.2-1.2); Eosinophils Absolute Auto 0.4 K/mm3 (0-0.3); Eosinophils Percent Auto 2.6 % (0-4.4); Hematocrit 36.2 % (42.0-52.0); Hemoglobin 10.5 g/dL (14.0-18.0); Immature Granulocyte Absolute 0.09 K/mm3 (0.00-0.031); Immature Granulocyte Percent A 0.7 % (0-0.5); Lymphocytes Absolute Auto 1.38 K/mm3 (0.9-3.2); Lymphocytes Percent Auto 10.1 % (18.3-44.2); Mean Corpuscular Hemoglobin 29.7 pg (26-34); Mean Corpuscular Volume 102.3 fl (80-100); Mean Platelet Volume 9.9 fl (7.4-10.4); Monocytes Percent Auto 7.3 % (2.6-8.5); Neutrophils Absolute Auto 10.6 K/mm3 (1.3-6.7); Neutrophils Percent Auto 77.9 % (45.5-73.1); Nucleated Red Blood Cells Perc 0.3 % (0.0-0.2); Platelet Count Result 762 k/mm3 (150-375); Red Blood Count 3.54 M/mm3 (4.6-6.20); Red Cell Distribution Width 21.6 % (11.5-14.5); White Blood Count 13.6 K/mm3 (4.5-10.0)
[2023-01-10 05:24] LABS: Alanine Aminotransferase 13 U/L (6-50); Albumin Level 4.1 g/dL (3.5-5.1); Alkaline Phosphatase 132 U/L (38-126); Anion Gap 14 mmol/L (8-16); Aspartate Amino Transferase 26 U/L (17-59); Bilirubin,Total 0.6 mg/dL (0.2-1.3); Blood Urea Nitrogen 40 mg/dL (9-20); Calcium 9.8 mg/dL (8.4-10.2); Carbon Dioxide 24 mmol/L (22-30); Chloride 100 mmol/L (98-107); Estimated Glomerular Filt Rate 30; Glucose 325 mg/dL (65-110); Magnesium 2.3 mg/dL (1.6-2.3); Phosphorus 4.1 mg/dL (2.5-4.5); Potassium 4.3 mmol/L (3.4-5.0); Sodium 138 mmol/L (137-145)
[2023-01-10 05:28] LABS: Glucose Point of Care 343 mg/dl (65-105)
[2023-01-10 05:32] LABS: Alveolar/Arterial O2 Gradient 114.7 mmHg; Base Excess ABG -3.3 mEq/l (+/-2.0); Carboxyhemoglobin 0.3 % THb (0-2.0); Fractional Inspired Oxygen 30 %; HCO3 ABG 21.8 mEq/l (22.0-26.0); Methemoglobin ABG 0.4 %THb (0-1.5); Oxygen Content ABG 12.7 %vol (16.0-22.0); PCO2 ABG 39.1 mmHg (35.0-45.0); PO2 ABG 53.3 mmHg (80.0-100.0); PO2 FiO2 Ratio Arterial Blood 1.78 %; Reduced Hemoglobin 15.5 %THb (0-5.0); Total Hemoglobin 10.8 g/dL (12.0-18.0); pH ABG 7.364 (7.350-7.450)
[2023-01-10 05:34] LABS: Oxygen Saturation ABG 86.7 % (95.0-100.0); Oxyhemoglobin 83.8 % THb (90.0-100.0)
[2023-01-10 05:35] LABS: Device NON-INVASIVE VENT; Non-Invasive Expiratory Pressure 6 CMH2O; Non-Invasive Inspiratory Pressure 12 CMH2O; Non-Invasive Vent Rate 14 /MIN; Site Drawn RIGHT BRACHIAL
[2023-01-10] MEDS: CENTRAL LINE FLUSH 10 ML IV PUSH ×4 (06:17→19:54)
[2023-01-10] MEDS: INSULIN ASPART (*BKC) 100 UNITS/ML SUB-Q ×2 (06:17→09:18)
--- NOTE | 2023-01-10 06:22 | PC.NURSE ---
0530 Patient diaphoretic, o2 sats 82-85% on 2l nasal cannula. Blood glucose 343 per accuchek. Placed on bipap 12/5 and 30% fio2. Dr. Mitchell informed, orders received for stat abgs and chest xray 0545 Dr Mitchell notified of abgs and chest xray. changed to imu status 0610 Rosana () informed of change in status and possible need of intubation. Agreeable to intubation. 0620 Dr Mitchell here to see patient and prepare for intubation.
[2023-01-10] MEDS: ETOMIDATE 40 MG/20 ML VIAL IV PUSH (06:25)
[2023-01-10] MEDS: ROCURONIUM BROMIDE 50 MG/5 ML VIAL 40 MG IV PUSH (06:25)
--- NOTE | 2023-01-10 06:46 | WPDPROCEDUR ---
Procedures Intubation Intubation Date: 01/10/23 Intubation Time: 06:30 Sedative: etomidate Mg given: 15 Paralytic: rocuronium Mg given: 40 Laryngoscope: fiber optic video scope Assist device used: fiber optic device ET tube size: 8 Tube secured depth (cm): 25 Tube secured location: lips Tube placement confirmation: visualized tube passing through cords, equal breath sounds bilaterally, no breath sounds over epigastrium and confirmation by capnometry Patient tolerated procedure: no complications Intubation complications: none
--- NOTE | 2023-01-10 06:48 | PC.NURSE ---
0625 Meds given and intubation done. see intubation sheet
[2023-01-10] MEDS: PANTOPRAZOLE SODIUM IV 40 MG VIAL IV PUSH (07:33)
[2023-01-10] MEDS: SODIUM CHLORIDE 0.9% IV 500 ML IV CONT (07:40)
[2023-01-10 07:59] LABS: Base Excess ABG -1.3 mEq/l (+/-2.0); Carboxyhemoglobin 0.3 % THb (0-2.0); Fractional Inspired Oxygen 60 %; HCO3 ABG 22.8 mEq/l (22.0-26.0); Methemoglobin ABG 0.1 %THb (0-1.5); Oxygen Content ABG 12.4 %vol (16.0-22.0); Oxygen Saturation ABG 89.2 % (95.0-100.0); PCO2 ABG 35.8 mmHg (35.0-45.0); PO2 ABG 54.4 mmHg (80.0-100.0); PO2 FiO2 Ratio Arterial Blood 0.91 %; Total Hemoglobin 10.2 g/dL (12.0-18.0); pH ABG 7.422 (7.350-7.450)
[2023-01-10] MEDS: FENTANYL 2,500MCG/NS250ML(*CRX 2,500 MCG/250 ML BAG IV CONT (08:00)
[2023-01-10] MEDS: MIDAZOLAM 100MG/NS 100ML(*CRX) 100 MG/100 ML BAG IV CONT (08:00)
[2023-01-10 08:03] LABS: Oxyhemoglobin 86.6 % THb (90.0-100.0)
[2023-01-10 08:04] LABS: Device VENTILATOR; Site Drawn RIGHT BRACHIAL
[2023-01-10 08:05] LABS: Arterial Blood Gas PEEP 5 cmH2O; Arterial Blood Gas Pressure Support 0 cmH2O; Arterial Blood Gas Tidal Volume 400 ml; Arterial Blood Gas Vent Mode CMV; Arterial Blood Gas Ventilator rate 18 /MIN
[2023-01-10 09:18] LABS: Glucose Point of Care 224 mg/dl (65-105)
[2023-01-10] MEDS: INSULIN GLARGINE (*BKC) 100 UNITS/ML 12 UNITS SUB-Q (09:18)
--- NOTE | 2023-01-10 09:26 | WPDINTPN ---
Progress Note: A&P Assessment and Plan (1) Respiratory failure: Code(s): J96.90 - Respiratory failure, unspecified, unspecified whether with hypoxia or hypercapnia Status: Acute Assessment and Plan: Respiratory failure/respiratory arrest which may have led to the cardiac arrest, intubated on 01/05/2023 -extubated on 01/08/2023 -reintubated to 01/10 -chest x-ray showed whiteout of right hemithorax likely combination of atelectasis and effusion -check CT chest -may need bronchoscopy -ABG reviewed and will increase PEEP to 8 -patient currently on vancomycin, imipenem which will be continued -continue bronchodilators (2) Cardiac arrest: Code(s): I46.9 - Cardiac arrest, cause unspecified Status: Acute Assessment and Plan: 01/05:Cardiac arrest could be related to hypoglycemia, bradycardia secondary to multiple causes. Received 1 round of epi, bicarb, calcium chloride before ROSC, time was approximately 5 minutes.Patient's initial rhythm according the code blue sheet was bradycardia, patient had more so a respiratory arrest. He was intubated during the code. -initially he was on Levophed briefly which was turned off after sedation was stopped -cardiac arrest likely related to severe hypoglycemia, no further recommendations from Cardiology -chronically elevated troponins, within baseline level. No ischemic changes noted on EKG, no evidence of ACS per Cardiology (3) Encephalopathy: Code(s): G93.40 - Encephalopathy, unspecified Status: Acute Assessment and Plan: RESOLVED Post cardiac arrest Encephalopathy: Much improved Now sedated with Versed and fentanyl for acute respiratory failure and mechanical ventilation -continue to monitor neurological status -01/05 CT brain: No intracranial hemorrhage, mass, or acute infarct. 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 Atrophy and chronic white matter changes -most recent ammonia levels within normal limits (4) Sepsis: Code(s): A41.9 - Sepsis, unspecified organism Status: Acute Assessment and Plan: -12/26/2022 blood cultures are positive for Staph epidermidis and Staph hominis / bottles -12/27/2022 respiratory cultures grew ESBL E coli -12/27/2022 MRSA screen was negative -12/29/2022 repeat blood cultures: Negative x2 -01/05/2023 blood cultures have been obtained 01/05/2023: post arrest patient was hypotensive requiring Levophed but later Levophed was weaned off -continue to maintain MAP > 65 mmHg for adequate end organ perfusion -patient was started on Zosyn by hospitalist, question of aspiration, Zosyn was discontinued and patient was started on vancomycin and ertapenem -continues to be on vancomycin ertapenem -12/27/2022 Echocardiogram did not show any vegetations. Repeat cultures done on 01/05 have been negative -Patient is not sure when he received the tunneled dialysis catheter and where it was done. He states it was probably done at [facility] few months ago but I do not see any operative note regarding tunneled dialysis catheter placement going back last year. -wound care team is following the patient (5) End stage renal disease: Code(s): N18.6 - End stage renal disease Status: Chronic Assessment and Plan: Patient has a history of end-stage renal disease, on dialysis -he is very sensitive to volume overload and has been admitted to the hospital multiple times for the same reason -dialysis per Nephrology, (6) Pulmonary edema: Code(s): J81.1 - Chronic pulmonary edema Status: Acute Assessment and Plan: Continue dialysis per Nephrology (7) Decubitus ulcer of sacral area: Code(s): L89.159 - Pressure ulcer of sacral region, unspecified stage Status: Chronic Assessment and Plan: Wound care evaluated the patient and recommendations for wound care appreciated (8) IDDM (insulin dependent diabetes mellitus): Status: Chronic Assessm
--- NOTE | 2023-01-10 10:52 | PCNFU ---
Nutrition Follow-Up Complete: Inadequate Oral Intake as related to mechanical ventilation as evidenced by NPO. Goal: Meet estimated nutritional needs Patient will continue current goal. Pt current nutrition is Nepro at 40 ml/hr. Last recorded weight is 40.1 kg. Bowel Motility:colostomy Labs Reviewed:Glu 325, Cr 2.3,BUN 40, Hct 36.2,Hgb 10.5 Meds Noted:Levophed, Versed, Fentanyl, Lantus, NovoLog, Lipitor, Protonix Skin: Stage IV PU-sacrum and left hip Additional Notes: Patient reintubated today. Tube feeding orders for Nepro goal rate at 40 ml/hr, providing 1584 kcals/72 gms protein/640 ml water. Flush 30 ml q 4 hours. Recommend starting protein modular of Rafal BID for wound healing. Will monitor in ICU rounds and reassess every Monday and Monday.
--- NOTE | 2023-01-10 10:57 | PM.IMPN ---
Progress Note: A&P Assessment and Plan (1) Respiratory failure: Code(s): J96.90 - Respiratory failure, unspecified, unspecified whether with hypoxia or hypercapnia Status: Acute Assessment and Plan: Respiratory failure/respiratory arrest which may have led to the cardiac arrest, intubated on 01/05/2023 -extubated on 01/08/2023 -reintubated on 01/10 -chest x-ray showed whiteout of right hemithorax likely combination of atelectasis and effusion -check CT chest -may need bronchoscopy -ABG reviewed and will increase PEEP to 8 -patient currently on vancomycin, imipenem which will be continued -continue bronchodilators (2) Cardiac arrest: Code(s): I46.9 - Cardiac arrest, cause unspecified Status: Acute Assessment and Plan: 01/05:Cardiac arrest could be related to hypoglycemia, bradycardia secondary to multiple causes. Received 1 round of epi, bicarb, calcium chloride before ROSC, time was approximately 5 minutes.Patient's initial rhythm according the code blue sheet was bradycardia, patient had more so a respiratory arrest. He was intubated during the code. (3) Encephalopathy: Code(s): G93.40 - Encephalopathy, unspecified Status: Acute Assessment and Plan: Currently intubated. (4) Sepsis: Code(s): A41.9 - Sepsis, unspecified organism Status: Acute Assessment and Plan: -12/26/2022 blood cultures are positive for Staph epidermidis and Staph hominis 2/2 bottles -12/27/2022 respiratory cultures grew ESBL E coli -12/27/2022 MRSA screen was negative -12/29/2022 repeat blood cultures: Negative x2 -01/05/2023 blood cultures have been obtained 01/05/2023: post arrest patient was hypotensive requiring Levophed but later Levophed was weaned off -continue to maintain MAP > 65 mmHg for adequate end organ perfusion -patient was started on Zosyn by hospitalist, question of aspiration, Zosyn was discontinued and patient was started on vancomycin and ertapenem -continues to be on vancomycin ertapenem -12/27/2022 Echocardiogram did not show any vegetations. Repeat cultures done on 01/05 have been negative -Patient is not sure when he received the tunneled dialysis catheter and where it was done. He states it was probably done at [facility] few months ago but I do not see any operative note regarding tunneled dialysis catheter placement going back last year. -wound care team is following the patient (5) End stage renal disease: Code(s): N18.6 - End stage renal disease Status: Chronic Assessment and Plan: Patient has a history of end-stage renal disease, on dialysis -he is very sensitive to volume overload and has been admitted to the hospital multiple times for the same reason -dialysis per Nephrology, (6) Pulmonary edema: Code(s): J81.1 - Chronic pulmonary edema Status: Acute Assessment and Plan: Continue dialysis per Nephrology (7) Decubitus ulcer of sacral area: Code(s): L89.159 - Pressure ulcer of sacral region, unspecified stage Status: Chronic Assessment and Plan: Wound care evaluated the patient and recommendations for wound care appreciated (8) IDDM (insulin dependent diabetes mellitus): Status: Chronic Assessment and Plan: -blood sugars are fluctuating -continue Lantus and sliding scale -start tube feeds (9) Anemia: Code(s): D64.9 - Anemia, unspecified Status: Acute Assessment and Plan: Hemoglobin has remained stable since 12/28 -anemia is likely multifactorial -patient is on Epogen per Nephrology -status post IV iron Continue IV PPI Continue aspirin and Brilinta. Continue Monitoring hemoglobin which has been stable (10) Shock: Code(s): R57.9 - Shock, unspecified Status: Acute Assessment and Plan: Pressors as needed Subjective Date/time seen: 01/10/23 10:57 Patient had to be intubated early this morning again for respirat
--- NOTE | 2023-01-10 11:03 | PM.PNNEP ---
Progress Note: A&P Assessment and Plan (1) End stage renal disease: Code(s): N18.6 - End stage renal disease Status: Chronic Assessment and Plan: HD tomorrow and continue M/W/F schedule follow electrolytes, volume status, and clearance (2) Acute respiratory failure: Code(s): J96.00 - Acute respiratory failure, unspecified whether with hypoxia or hypercapnia Status: Acute Assessment and Plan: extubated on 01/08/23 -- reintubated today ongoing issues during this hospital stay (on 01/02/23 and 01/06/23) suspect this may have led to cardiac arrest on 01/02/23 (3) Cardiac arrest: Code(s): I46.9 - Cardiac arrest, cause unspecified Status: Acute Assessment and Plan: precipitated by hypoglycemia and bradycardia (occurred on 01/02/23) ROSC after ~ 5 minuts s/p 1 round of epinephritine, bicarb, calcium chloride seemed more a respiratory arrest based on code blue note was on levophed post cardiac arrest but this has been weaned off (4) Bacteremia: Code(s): R78.81 - Bacteremia Status: Acute Assessment and Plan: Staph bacteremia on 12/26 by admission cultures repeat blood cultures - growth to date. on Vancomycin - will need this for 6 weeks source -- decubitus ulcers versus tunneled HD catheter versus something else? HD catheter was recently exchanged wounds undergoing dressing changes still on ertapenem as well (5) Altered mental status: Code(s): R41.82 - Altered mental status, unspecified Status: Acute Assessment and Plan: improving prior to cardiac arrest was stable at the time of last extubation follow mentation CT of brain noted (6) Anemia: Code(s): D64.9 - Anemia, unspecified Status: Chronic Assessment and Plan: due to ESRD and possible acute illness Epogen with HD follow H/H (7) Decubitus ulcers: Code(s): L89.90 - Pressure ulcer of unspecified site, unspecified stage Status: Chronic Assessment and Plan: local wound care wound care nurse following (8) Diabetes: Qualifiers: Diabetes mellitus complication detail: with other circulatory complications Diabetes mellitus complication status: with circulatory complication Diabetes mellitus type: type 1 Qualified Code(s): E10.59 - Type 1 diabetes mellitus with other circulatory complications Code(s): E11.9 - Type 2 diabetes mellitus without complications Status: Chronic Assessment and Plan: on Accu-Cheks glycemic control 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 Subjective Date/time seen: 01/10/23 11:03 Intubated earlier this AM due to worsening hypoxia and respiratory distress after failing to respond to BiPAP therapy; remains intubated/sedated and on mechanical ventilation at the time of my visit; tolerated hemodialysis yesterday afternoon with ~ 2.5L fluid removal; hypotension noted but thought to be related to positive pressure ventilation and sedation. Exam Narrative: General: ill appearing male intubated and on mechanical ventilation Heart: normal S1 and S2; no rub or gallop Lungs: coarse breath sounds; decrease at bases Abdomen: soft with + bowel sounds; colostomy noted Extremities: no cyanosis or clubbing; left AKA and right BKA Skin: wounds with dressings in place Objective Data Vital Signs Vital Signs: Vital Signs Temp Pulse Resp BP Pulse Ox O2 Del Method O2 Flow Rate 01/10/23 10:15 100 95 Mechanical Ventilation 01/10/23 09:00 57/46 L 01/10/23 08:00 84/54 L 01/10/23 07:30 70/53 L 01/10/23 08:00 92 18 01/10/23 08:00 93
--- NOTE | 2023-01-10 11:03 | P.PNNP_ITS ---
Progress Note: A&P Assessment and Plan (1) End stage renal disease: Code(s): N18.6 - End stage renal disease Status: Chronic Assessment and Plan: * HD tomorrow and continue M/W/ schedule * follow electrolytes, volume status, and clearance (2) Acute respiratory failure: Code(s): J96.00 - Acute respiratory failure, unspecified whether with hypoxia or hype rcapnia Status: Acute Assessment and Plan: * extubated on 01/08/23 -- reintubated today * ongoing issues during this hospital stay (on 01/02/23 and 01/06/23) * suspect this may have led to cardiac arrest on 01/02/23 (3) Cardiac arrest: Code(s): I46.9 - Cardiac arrest, cause unspecified Status: Acute Assessment and Plan: * precipitated by hypoglycemia and bradycardia (occurred on 01/02/23) * ROSC after ~ 5 minuts * s/p 1 round of epinephritine, bicarb, calcium chloride * seemed more a respiratory arrest based on code blue note * was on levophed post cardiac arrest but this has been weaned off (4) Bacteremia: Code(s): R78.81 - Bacteremia Status: Acute Assessment and Plan: * Staph bacteremia on 12/26 by admission cultures * repeat blood cultures - growth to date. * on Vancomycin - will need this for 6 weeks * source -- decubitus ulcers versus tunneled HD catheter versus something else? * HD catheter was recently exchanged * wounds undergoing dressing changes * still on ertapenem as well (5) Altered mental status: Code(s): R41.82 - Altered mental status, unspecified Status: Acute Assessment and Plan: * improving prior to cardiac arrest * was stable at the time of last extubation * follow mentation * CT of brain noted (6) Anemia: Code(s): D64.9 - Anemia, unspecified Status: Chronic Assessment and Plan: * due to ESRD and possible acute illness * Epogen with HD * follow H/H (7) Decubitus ulcers: Code(s): L89.90 - Pressure ulcer of unspecified site, unspecified stage Status: Chronic Assessment and Plan: * local wound care * wound care nurse following (8) Diabetes: Qualifiers: Diabetes mellitus complication detail: with other circulatory compl ications Diabetes mellitus complication status: with circulatory complication Diabetes mellitus type: type 1 Qualified Code(s): E10.59 - Type 1 diabetes mellitus with other circulatory complications Code(s): E11.9 - Type 2 diabetes mellitus without complications Status: Chronic Assessment and Plan: * on Accu-Cheks * 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 Subjective Date/time seen: 01/10/23 11:03 Intubated earlier this AM due to worsening hypoxia and respiratory distress after failing to respond to BiPAP therapy; remains intubated/sedated and on mechanical ventilation at the time of my visit; tolerated hemodialysis yesterday afternoon with ~ 2.5L fluid removal; hypotension noted but thought to be related to positive pressure ventilation and sedation. Exam Narrative: General: ill appearing male intubated and on mechanical ventilation Heart: normal S1 and S2; no rub or gallop Lungs: coarse breath sounds; decrease at bases Abdomen: soft wit
[2023-01-10] MEDS: TOLNAFTATE 1% POWDER 45 GM BTL 1 APPLIC TOPICAL ×2 (12:32→19:53)
[2023-01-10] MEDS: SOD HYPOCHLORITE 1/4 STRENGTH 473 ML 1 APPLIC TOPICAL ×2 (12:32→19:53)
[2023-01-10] MEDS: MINERAL OIL/WHITE PETROLATUM OINTMENT 1 APPLIC EACH EYE ×2 (13:48→19:53)
[2023-01-10 14:35] LABS: Glucose Point of Care 58 mg/dl (65-105)
[2023-01-10] MEDS: DEXTROSE 50% 25 GM/50 ML SYRINGE IV PUSH ×2 (14:50→18:25)
[2023-01-10] MEDS: ERTAPENEM SODIUM 0.5 GM in SODIUM CHLORIDE 0.9% IV 50 ML IVPB (18:20)
[2023-01-10] MEDS: ACETAMINOPHEN 325 MG TABLET 650 MG FEED TUBE (18:34)
[2023-01-10 18:38] LABS: Glucose Point of Care 61 mg/dl (65-105)
[2023-01-10 19:51] LABS: Glucose Point of Care 106 mg/dl (65-105)
[2023-01-10] MEDS: NOREPINEPHRINE 8 MG/D5W 250 ML 8 MG/250 ML BAG 26.25 MG IV CONT (21:00)
[2023-01-11] VITALS (44 sets, daily range): BP systolic 66–208; BP diastolic 40–139; PULSE 90–111; RESP 18; TEMP 36.7–38.8; O2SAT 93–100
[2023-01-11] MEDS: DEXTROSE 50% 25 GM/50 ML SYRINGE IV PUSH (01:29)
[2023-01-11 01:33] LABS: Glucose Point of Care 34 mg/dl (65-105)
--- NOTE | 2023-01-11 01:36 | PC.NURSE ---
0120 accuchek 34. D50 1 amp given per protocol
[2023-01-11 01:42] LABS: Glucose Point of Care 103 mg/dl (65-105)
[2023-01-11] MEDS: LEVALBUTEROL NEB 1.25 MG/3 ML 0.63 MG INHALATION ×4 (02:33→19:43)
[2023-01-11 02:41] LABS: Glucose Point of Care 93 mg/dl (65-105)
[2023-01-11 04:21] LABS: Glucose Point of Care 105 mg/dl (65-105)
[2023-01-11] MEDS: CENTRAL LINE FLUSH 10 ML IV PUSH ×4 (04:29→21:14)
[2023-01-11 04:57] LABS: Hematocrit 30.2 % (42.0-52.0); Hemoglobin 9.1 g/dL (14.0-18.0); Mean Corpuscular HGB Conc 30.1 g/dl (32-36); Mean Corpuscular Hemoglobin 30.3 pg (26-34); Mean Corpuscular Volume 100.7 fl (80-100); Mean Platelet Volume 9.9 fl (7.4-10.4); Platelet Count Result 624 k/mm3 (150-375); Red Cell Distribution Width 21.3 % (11.5-14.5); White Blood Count 16.7 K/mm3 (4.5-10.0)
[2023-01-11 05:11] LABS: Alveolar/Arterial O2 Gradient 178.5 mmHg; Base Excess ABG 2.1 mEq/l (+/-2.0); Carboxyhemoglobin 0.5 % THb (0-2.0); Fractional Inspired Oxygen 40 %; Methemoglobin ABG 0.3 %THb (0-1.5); Oxyhemoglobin 90.2 % THb (90.0-100.0); PCO2 ABG 38.4 mmHg (35.0-45.0); PO2 ABG 62.5 mmHg (80.0-100.0); PO2 FiO2 Ratio Arterial Blood 1.56 %; Total Hemoglobin 12.6 g/dL (12.0-18.0); pH ABG 7.449 (7.350-7.450)
[2023-01-11 05:12] LABS: Arterial Blood Gas PEEP 10 cmH2O; Arterial Blood Gas Tidal Volume 400 ml; Arterial Blood Gas Vent Mode CMV; Arterial Blood Gas Ventilator rate 18 /MIN; Device VENTILATOR; Site Drawn RIGHT BRACHIAL
[2023-01-11 05:18] LABS: Alanine Aminotransferase 11 U/L (6-50); Albumin Level 3.4 g/dL (3.5-5.1); Alkaline Phosphatase 101 U/L (38-126); Anion Gap 9 mmol/L (8-16); Aspartate Amino Transferase 19 U/L (17-59); Bilirubin,Total 0.5 mg/dL (0.2-1.3); Blood Urea Nitrogen 58 mg/dL (9-20); Calcium 9.2 mg/dL (8.4-10.2); Carbon Dioxide 30 mmol/L (22-30); Chloride 101 mmol/L (98-107); Estimated Glomerular Filt Rate 22; Glucose 113 mg/dL (65-110); Magnesium 2.4 mg/dL (1.6-2.3); Potassium 3.9 mmol/L (3.4-5.0); Sodium 140 mmol/L (137-145)
[2023-01-11 05:28] LABS: Vancomycin Random 18.3 ug/mL (10-20)
[2023-01-11 07:47] LABS: Glucose Point of Care 124 mg/dl (65-105)
[2023-01-11] MEDS: ACETAMINOPHEN 325 MG TABLET 650 MG FEED TUBE (08:05)
[2023-01-11] MEDS: TOLNAFTATE 1% POWDER 45 GM BTL 1 APPLIC TOPICAL ×2 (08:07→21:16)
[2023-01-11] MEDS: TICAGRELOR 60 MG TABLET PO (08:07)
[2023-01-11] MEDS: SOD HYPOCHLORITE 1/4 STRENGTH 473 ML 1 APPLIC TOPICAL (08:08)
[2023-01-11] MEDS: PANTOPRAZOLE SODIUM IV 40 MG VIAL IV PUSH (08:08)
[2023-01-11] MEDS: MINERAL OIL/WHITE PETROLATUM OINTMENT 1 APPLIC EACH EYE ×2 (08:09→21:07)
[2023-01-11] MEDS: ASPIRIN 325 MG TABLET PO (08:13)
[2023-01-11] MEDS: ATORVASTATIN 40 MG TABLET 80 MG PO (08:13)
--- NOTE | 2023-01-11 09:27 | WPDINTPN ---
Progress Note: A&P Assessment and Plan (1) Respiratory failure: Code(s): J96.90 - Respiratory failure, unspecified, unspecified whether with hypoxia or hypercapnia Status: Acute Assessment and Plan: Respiratory failure/respiratory arrest which may have led to the cardiac arrest, intubated on 01/05/2023 -extubated on 01/08/2023 -reintubated to 01/10 -chest x-ray showed whiteout of right hemithorax likely combination of atelectasis and effusion -01/10 CT chest Complete consolidation/atelectasis of the right lung, with extensive hyperdense material/appearance of the lung parenchyma, suggestive of aspiration. Associated small to small moderate right pleural effusion present. Patchy ground glass opacity in the lingula/anterior left upper lobe, with minimal tree-in-bud opacities in the left lower lobe. Findings are consistent with pneumonia/infectious process. -chest x-ray this morning shows improvement of aeration on the right hemithorax -FiO2 down to 40%. I will decrease the PEEP to 8 -consult pulmonology for bronchoscopy -repeat blood and sputum cultures -continue vancomycin and ertapenem -continue bronchodilators (2) Cardiac arrest: Code(s): I46.9 - Cardiac arrest, cause unspecified Status: Acute Assessment and Plan: 01/05:Cardiac arrest could be related to hypoglycemia, bradycardia secondary to multiple causes. Received 1 round of epi, bicarb, calcium chloride before ROSC, time was approximately 5 minutes.Patient's initial rhythm according the code blue sheet was bradycardia, patient had more so a respiratory arrest. He was intubated during the code. -initially he was on Levophed briefly which was turned off after sedation was stopped -cardiac arrest likely related to severe hypoglycemia, no further recommendations from Cardiology -chronically elevated troponins, within baseline level. No ischemic changes noted on EKG, no evidence of ACS per Cardiology (3) Encephalopathy: Code(s): G93.40 - Encephalopathy, unspecified Status: Acute Assessment and Plan: RESOLVED Post cardiac arrest Encephalopathy: Much improved Now sedated with Versed and fentanyl for acute respiratory failure and mechanical ventilation -continue to monitor neurological status -01/05 CT brain: No intracranial hemorrhage, mass, or acute infarct. 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 Atrophy and chronic white matter changes -most recent ammonia levels within normal limits (4) Sepsis: Code(s): A41.9 - Sepsis, unspecified organism Status: Acute Assessment and Plan: -12/26/2022 blood cultures are positive for Staph epidermidis and Staph hominis 2/2 bottles -12/27/2022 respiratory cultures grew ESBL E coli -12/27/2022 MRSA screen was negative -12/29/2022 repeat blood cultures: Negative x2 -01/05/2023 blood cultures have been obtained 01/05/2023: post arrest patient was hypotensive requiring Levophed but later Levophed was weaned off -patient was started on Zosyn by hospitalist, question of aspiration, Zosyn was discontinued and patient was started on vancomycin and ertapenem Patient now intubated and appears to have right-sided pneumonia which could be aspiration Continue vancomycin ertapenem 01/11 repeat sputum and blood cultures -12/27/2022 Echocardiogram did not show any vegetations. Repeat cultures done on 01/05 have been negative -Patient is not sure when he received the tunneled dialysis catheter and where it was done. He states it was probably done at [facility] few months ago but I do not see any operative note regarding tunneled dialysis catheter placement going back last year. -wound care team is following the patient (5) End stage renal disease: Code(s): N18.6 - End stage renal disease Status: Chronic Assessment and Plan: Patient has a history of end-stage renal disease, on dialysis -he is very sensitive to volume overload and has been admitted to the hosp
[2023-01-11] MEDS: NOREPINEPHRINE 8 MG/D5W 250 ML 8 MG/250 ML BAG 20.63 MG IV CONT (10:36)
[2023-01-11] MEDS: SODIUM CHLORIDE 0.9% IV 500 ML IV CONT (11:00)
--- NOTE | 2023-01-11 11:29 | PM.CNPUL ---
Assessment and Plan Assessment and plan (1) Difficulty clearing secretions: Status: Acute Assessment and Plan: Patient was extubated on 01/08/2023 and on he had a right lower lobe infiltrate. On 01/09 the right lower lobe infiltrate increased and there was consolidation and on 01/10 the patient developed opacification of the right hemithorax and was intubated. On 01/11/2023 the right lung is re-expanded. The patient likely had mucus plugging and speaking to the significant other he is very weak and debilitated. Currently there is no indication for bronchoscopy as the patient is on minimal oxygen support of 30% and a peep of 8 with saturations 97% and the chest x-ray this morning shows that the right lung has re-expanded. Agree with current antibiotics of ertepenem should there be a pneumonia. Continue aggressive suctioning through the ET tube while the patient is intubated. Once the patient is extubated would consider aggressive measures to aid in expectorations including levalbuterol 0.63 nebulized Q 6 hours, guaifenesin 1200 mg p.o. b.i.d., Cornet flutter valve and vibratory vest therapy. I spoke with the significant other and I am concerned that given the patient's weakness and debility recurrent mucus plugging is likely. Discussed with Dr. Amin. Will sign off call with questions. History of Present Illness History of Present Illness Consult date: 01/11/23 Chief complaint: Respiratory Failure/Altered Mental Status/Hyperkal Narrative: 01/11/2023: This is a new pulmonary consult for atelectasis and bronchoscopy 57-year-old man with a history of diabetes, end-stage renal disease on hemodialysis, frequent admissions for fluid overload and acute respiratory failure. Patient was intubated on 01/05/2023 and extubated on 01/08/2023. On 01/08/2023 his x-ray demonstrated a right lower lobe infiltrate. Repeat chest x-ray on 01/09/2022 showed increased consolidation of the right lower lobe. Patient developed respiratory distress and a chest x-ray on 01/10 demonstrated right lung opacification and the patient was intubated. Chest x-ray on 01/11/2023 demonstrates re-expansion of the right lung with right lower lobe consolidation. Patient is currently intubated on 30% FiO2 with a peep of 8 and a peak airway pressure of 22. He is sedated with fentanyl and on Levophed 11 mcg. Review of Systems Review of Systems: ROS unobtainable: Yes unobtainable due to endotracheal tube PMFSH Past Medical History Medical History Anemia Anxiety Benign prostatic hyperplasia Bradycardic cardiac arrest (07/23/20) In the setting of severe hyperkalemia, acute pulmonary edema, and respiratory failure Chronic anemia Chronic kidney failure Congestive heart failure Echo 03/06/2021 1. Complete two-dimensional, color flow and Doppler transthoracic echocardiogram is performed. 2. Left ventricular chamber dimension is mildly enlarged. 3. Left ventricular systolic function is mildly reduced, estimated at 55-60%. 4. There is severely increased left ventricular wall thickness. Speckled appearance of the myocardium. 5. The left ventricular diastolic function is grade I diastolic dysfunction. 6. Left atrial chamber dimension is mildly enlarged. 7. There is moderate aortic valve sclerosis. 8. The mitral valve annulus is severely calcified. 9. There is mild mitral valve regurgitation. 10. The mitral valve has thickened leaflets. 11. There is mild tricuspid valve regurgitation. 12. There is mild pulmonic regurgitation. Coronary artery disease With non STEMI in December 2019, with stent placed to the LAD. 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 Pacheco in June 2020. Gastroesophageal reflux disease [place]
[2023-01-11 11:38] LABS: Glucose Point of Care 267 mg/dl (65-105)
--- NOTE | 2023-01-11 11:56 | PM.PNNEP ---
Progress Note: A&P Assessment and Plan (1) End stage renal disease: Code(s): N18.6 - End stage renal disease Status: Chronic Assessment and Plan: HD schedule for today but given hypotension, need for pressors, and fever, will hold HD today tentatively plan HD tomorrow follow electrolytes, volume status, and clearance (2) Acute respiratory failure: Code(s): J96.00 - Acute respiratory failure, unspecified whether with hypoxia or hypercapnia Status: Acute Assessment and Plan: extubated on 01/08/23 -- reintubated 01/10/23 ongoing issues during this hospital stay (on 01/02/23 and 01/06/23) suspect this may have led to cardiac arrest on 01/02/23 Pulmonary recommendations reviewed (3) Cardiac arrest: Code(s): I46.9 - Cardiac arrest, cause unspecified Status: Acute Assessment and Plan: precipitated by hypoglycemia and bradycardia (occurred on 01/02/23) ROSC after ~ 5 minutes s/p 1 round of epinephritine, bicarb, calcium chloride seemed more a respiratory arrest based on code blue note was on levophed post cardiac arrest but this has been weaned off (4) Bacteremia: Code(s): R78.81 - Bacteremia Status: Acute Assessment and Plan: Staph bacteremia on 12/26 by admission cultures repeat blood cultures - growth to date previously on intermittent vancomycin source -- decubitus ulcers versus tunneled HD catheter versus something else? HD catheter was recently exchanged wounds undergoing dressing changes on ertapenem (5) Altered mental status: Code(s): R41.82 - Altered mental status, unspecified Status: Acute Assessment and Plan: improving prior to cardiac arrest was stable at the time of last extubation follow mentation CT of brain noted (6) Anemia: Code(s): D64.9 - Anemia, unspecified Status: Chronic Assessment and Plan: due to ESRD and possible acute illness Epogen with HD follow H/H (7) Decubitus ulcers: Code(s): L89.90 - Pressure ulcer of unspecified site, unspecified stage Status: Chronic Assessment and Plan: local wound care wound care nurse following (8) Diabetes: Qualifiers: Diabetes mellitus complication detail: with other circulatory complications Diabetes mellitus complication status: with circulatory complication Diabetes mellitus type: type 1 Qualified Code(s): E10.59 - Type 1 diabetes mellitus with other circulatory complications Code(s): E11.9 - Type 2 diabetes mellitus without complications Status: Chronic Assessment and Plan: on [facility] glycemic control 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 Subjective Date/time seen: 01/11/23 11:56 Remains intubated/sedated and on mechanical ventilation; requiring vasopressor therapy as well to maintain BP/MAP; febrile in the last 24 hours as well. Exam Narrative: General: ill appearing male intubated and on mechanical ventilation Heart: normal S1 and S2; no rub or gallop Lungs: coarse breath sounds; decrease at bases Abdomen: soft with + bowel sounds; colostomy noted Extremities: no cyanosis or clubbing; left AKA and right BKA Skin: wounds with dressings in place Objective Data Vital Signs Vital Signs: Vital Signs Temp Pulse Resp BP Pulse Ox O2 Del Method FiO2 01/11/23 11:00 100 01/11/23 10:00 106 H 01/11/23 08:00 107 H 01/11/23 08:00 30 01/11/23 11:54 103 H 18 114/76 99 01/11/23 10:41 105 H 96 Mechanical Ventilation 30 01/11/23 11:07 98 169/107 H 01/11/23 11:56 101 H 66/40 L 01/11/23 11:44 101 H 135/102 H 01/11/23 11:35 100 147/97 H 01/11/23 11:11 104 H 112/98 H 01/11/23 10:37 101 F H 01/11/23 10:36 108 H 87/67 L 01/11/23 08:04 109 H 87/67 L 01/11/23 10:00 101.8 F H 109 H 18 92/58 L 97 01/11/23
--- NOTE | 2023-01-11 11:56 | P.PNNP_ITS ---
Progress Note: A&P Assessment and Plan (1) End stage renal disease: Code(s): N18.6 - End stage renal disease Status: Chronic Assessment and Plan: * HD schedule for today but given hypotension, need for pressors, and fever, will hold HD today * tentatively plan HD tomorrow * follow electrolytes, volume status, and clearance (2) Acute respiratory failure: Code(s): J96.00 - Acute respiratory failure, unspecified whether with hypoxia or hypercapnia Status: Acute Assessment and Plan: * extubated on 01/08/23 -- reintubated 01/10/23 * ongoing issues during this hospital stay (on 01/02/23 and 01/06/23) * suspect this may have led to cardiac arrest on 01/02/23 * Pulmonary recommendations reviewed (3) Cardiac arrest: Code(s): I46.9 - Cardiac arrest, cause unspecified Status: Acute Assessment and Plan: * precipitated by hypoglycemia and bradycardia (occurred on 01/02/23) * ROSC after ~ 5 minutes * s/p 1 round of epinephritine, bicarb, calcium chloride * seemed more a respiratory arrest based on code blue note * was on levophed post cardiac arrest but this has been weaned off (4) Bacteremia: Code(s): R78.81 - Bacteremia Status: Acute Assessment and Plan: * Staph bacteremia on 12/26 by admission cultures * repeat blood cultures - growth to date * previously on intermittent vancomycin * source -- decubitus ulcers versus tunneled HD catheter versus something else? * HD catheter was recently exchanged * wounds undergoing dressing changes * on ertapenem (5) Altered mental status: Code(s): R41.82 - Altered mental status, unspecified Status: Acute Assessment and Plan: * improving prior to cardiac arrest * was stable at the time of last extubation * follow mentation * CT of brain noted (6) Anemia: Code(s): D64.9 - Anemia, unspecified Status: Chronic Assessment and Plan: * due to ESRD and possible acute illness * Epogen with HD * follow H/H (7) Decubitus ulcers: Code(s): L89.90 - Pressure ulcer of unspecified site, unspecified stage Status: Chronic Assessment and Plan: * local wound care * wound care nurse following (8) Diabetes: Qualifiers: Diabetes mellitus complication detail: with other circulatory complications Diabetes mellitus complication status: with circulatory comp lication Diabetes mellitus type: type 1 Qualified Code(s): E10.59 - Type 1 diabetes mellitus with other circulatory complications Code(s): E11.9 - Type 2 diabetes mellitus without complications Status: Chronic Assessment and Plan: * on Accu-Cheks * glycemic control per hospitalist/lump roller Will continue to follow. Subjective Date/time seen: 01/11/23 11:56 Remains intubated/sedated and on mechanical ventilation; requiring vasopressor therapy as well to maintain BP/MAP; febrile in the last 24 hours as well. Exam Narrative: General: ill appearing male intubated and on mechanical ventilation Heart: normal S1 and S2; no rub or gallop Lungs: coarse breath sounds; decrease at bases Abdomen: soft with + bowel sounds; colostomy noted Extremities: no cyanosis or clubbing; left AKA and right BKA Skin: wounds with dressings in place Objective Data Vital Signs Vital Signs: Vital Signs Temp Pulse Resp BP Pulse Ox O2 Del
--- NOTE | 2023-01-11 12:05 | PCFNICU ---
ICU Rounding Note: Pt current nutrition is Nepro at 40 ml/hr Last recorded weight is 40.6 kg. Bowel Motility: colostomy Labs Reviewed: Glu 113, BUN 58,Cr 3.0 Meds Noted:Fentanyl, Versed, Lipitor, NovoLog, Protonix Skin: Stage IV PU-sacrum, left hip Additional Notes: Patient remains on mechanical vent and tube feedings of Nepro at 40 ml/hr and tolerating per nursing. Protein Modular of Rafal BID for wound healing restarted. Dialysis on hold today,fever reported. Patient was made a DNR. Agree with diet orders. Following daily in ICU rounds. Will reassess every Monday and Monday.
[2023-01-11] MEDS: INSULIN ASPART (*BKC) 100 UNITS/ML SUB-Q ×3 (12:06→21:10)
[2023-01-11] MEDS: ALBUMIN HUMAN 5% 25 GM/500 ML BTL IV CONT (15:55)
[2023-01-11] MEDS: HYDROCORTISONE SODIUM SUCCINATE 100 MG/2 ML VIAL IV PUSH ×2 (15:55→21:14)
--- NOTE | 2023-01-11 16:40 | PM.IMPN ---
Progress Note: A&P Assessment and Plan (1) Respiratory failure: Code(s): J96.90 - Respiratory failure, unspecified, unspecified whether with hypoxia or hypercapnia Status: Acute Assessment and Plan: Respiratory failure/respiratory arrest which may have led to the cardiac arrest, intubated on 01/05/2023 -extubated on 01/08/2023 -reintubated on 01/10 -chest x-ray showed whiteout of right hemithorax likely combination of atelectasis and effusion -check CT chest -may need bronchoscopy -ABG reviewed and will increase PEEP to 8 -patient currently on vancomycin, imipenem which will be continued -continue bronchodilators 01/11/2023 interval history: 57-year-old male with history of diabetes end-stage renal disease on hemodialysis currently on ventilator unable to provide any review of symptoms or history, respiratory failure suspect due to pneumonia and secretion as patient is quite debilitated, patient is present in the room, answered all her questions. (2) Cardiac arrest: Code(s): I46.9 - Cardiac arrest, cause unspecified Status: Acute Assessment and Plan: 01/05:Cardiac arrest could be related to hypoglycemia, bradycardia secondary to multiple causes. Received 1 round of epi, bicarb, calcium chloride before ROSC, time was approximately 5 minutes.Patient's initial rhythm according the code blue sheet was bradycardia, patient had more so a respiratory arrest. He was intubated during the code. (3) Encephalopathy: Code(s): G93.40 - Encephalopathy, unspecified Status: Acute Assessment and Plan: Currently intubated. (4) Sepsis: Code(s): A41.9 - Sepsis, unspecified organism Status: Acute Assessment and Plan: -12/26/2022 blood cultures are positive for Staph epidermidis and Staph hominis 2/2 bottles -12/27/2022 respiratory cultures grew ESBL E coli -12/27/2022 MRSA screen was negative -12/29/2022 repeat blood cultures: Negative x2 -01/05/2023 blood cultures have been obtained 01/05/2023: post arrest patient was hypotensive requiring Levophed but later Levophed was weaned off -continue to maintain MAP > 65 mmHg for adequate end organ perfusion -patient was started on Zosyn by hospitalist, question of aspiration, Zosyn was discontinued and patient was started on vancomycin and ertapenem -continues to be on vancomycin ertapenem -12/27/2022 Echocardiogram did not show any vegetations. Repeat cultures done on 01/05 have been negative -Patient is not sure when he received the tunneled dialysis catheter and where it was done. He states it was probably done at [facility] few months ago but I do not see any operative note regarding tunneled dialysis catheter placement going back last year. -wound care team is following the patient (5) End stage renal disease: Code(s): N18.6 - End stage renal disease Status: Chronic Assessment and Plan: Patient has a history of end-stage renal disease, on dialysis -he is very sensitive to volume overload and has been admitted to the hospital multiple times for the same reason -dialysis per Nephrology, (6) Pulmonary edema: Code(s): J81.1 - Chronic pulmonary edema Status: Acute Assessment and Plan: Continue dialysis per Nephrology (7) Decubitus ulcer of sacral area: Code(s): L89.159 - Pressure ulcer of sacral region, unspecified stage Status: Chronic Assessment and Plan: Wound care evaluated the patient and recommendations for wound care appreciated (8) IDDM (insulin dependent diabetes mellitus): Status: Chronic Assessment and Plan: -blood sugars are fluctuating -continue Lantus and sliding scale -start tube feeds (9) Anemia: Code(s): D64.9 - Anemia, unspecified Status: Acute Assessment and Plan: Hemoglobin has remained stable since 12/28 -anemia is likely multifactorial -patient is on Epogen per Nephrology -status post IV iron
[2023-01-11 17:20] LABS: Glucose Point of Care 295 mg/dl (65-105)
[2023-01-11] MEDS: ERTAPENEM SODIUM 0.5 GM in SODIUM CHLORIDE 0.9% IV 50 ML IVPB (18:00)
[2023-01-11] MEDS: INSULIN GLARGINE (*BKC) 100 UNITS/ML 12 UNITS SUB-Q (21:10)
[2023-01-11 21:14] LABS: Glucose Point of Care 363 mg/dl (65-105)
[2023-01-12] VITALS (60 sets, daily range): BP systolic 74–202; BP diastolic 53–98; PULSE 73–101; RESP 18–28; TEMP 35.8–36.8; O2SAT 95–100
[2023-01-12] MEDS: INSULIN ASPART (*BKC) 100 UNITS/ML SUB-Q ×5 (00:37→20:38)
[2023-01-12] MEDS: FENTANYL 2,500MCG/NS250ML(*CRX 2,500 MCG/250 ML BAG 7.5 MCG IV CONT (00:40)
[2023-01-12 00:55] LABS: Glucose Point of Care 341 mg/dl (65-105)
[2023-01-12] MEDS: LEVALBUTEROL NEB 1.25 MG/3 ML 0.63 MG INHALATION ×4 (02:48→20:34)
[2023-01-12] MEDS: MIDAZOLAM 100MG/NS 100ML(*CRX) 100 MG/100 ML BAG IV CONT (03:07)
[2023-01-12 05:08] LABS: Base Excess ABG -0.5 mEq/l (+/-2.0); Carboxyhemoglobin 0.3 % THb (0-2.0); Fractional Inspired Oxygen 80 %; HCO3 ABG 22.7 mEq/l (22.0-26.0); Methemoglobin ABG 0.4 %THb (0-1.5); Oxygen Content ABG 12.8 %vol (16.0-22.0); Oxygen Saturation ABG 99.1 % (95.0-100.0); Oxyhemoglobin 97.6 % THb (90.0-100.0); PCO2 ABG 31.5 mmHg (35.0-45.0); PO2 ABG 147.3 mmHg (80.0-100.0); PO2 FiO2 Ratio Arterial Blood 1.84 %; Reduced Hemoglobin 1.7 %THb (0-5.0); Total Hemoglobin 9.1 g/dL (12.0-18.0); pH ABG 7.475 (7.350-7.450)
[2023-01-12 05:09] LABS: Arterial Blood Gas PEEP 5 cmH2O; Arterial Blood Gas Tidal Volume 400 ml; Arterial Blood Gas Vent Mode CMV; Arterial Blood Gas Ventilator rate 18 /MIN; Device VENTILATOR; Modified Allen's Test Unable to perform; Site Drawn RIGHT BRACHIAL
[2023-01-12] MEDS: HYDROCORTISONE SODIUM SUCCINATE 100 MG/2 ML VIAL IV PUSH ×3 (05:42→20:41)
[2023-01-12] MEDS: CENTRAL LINE FLUSH 10 ML IV PUSH ×4 (05:44→20:42)
[2023-01-12] MEDS: SOD HYPOCHLORITE 1/4 STRENGTH 473 ML 1 APPLIC TOPICAL ×2 (05:51→08:15)
[2023-01-12 05:53] LABS: Glucose Point of Care 346 mg/dl (65-105)
[2023-01-12 06:07] LABS: Hematocrit 26.1 % (42.0-52.0); Mean Corpuscular HGB Conc 30.7 g/dl (32-36); Mean Corpuscular Volume 97.8 fl (80-100); Mean Platelet Volume 10.3 fl (7.4-10.4); Platelet Count Result 562 k/mm3 (150-375); Red Blood Count 2.67 M/mm3 (4.6-6.20); Red Cell Distribution Width 21.2 % (11.5-14.5); White Blood Count 14.2 K/mm3 (4.5-10.0)
[2023-01-12 06:14] LABS: Alanine Aminotransferase 10 U/L (6-50); Albumin Level 3.5 g/dL (3.5-5.1); Alkaline Phosphatase 97 U/L (38-126); Anion Gap 13 mmol/L (8-16); Aspartate Amino Transferase 18 U/L (17-59); Bilirubin,Total 0.5 mg/dL (0.2-1.3); Blood Urea Nitrogen 71 mg/dL (9-20); Calcium 9.7 mg/dL (8.4-10.2); Carbon Dioxide 26 mmol/L (22-30); Chloride 97 mmol/L (98-107); Estimated Glomerular Filt Rate 17; Glucose 383 mg/dL (65-110); Magnesium 2.5 mg/dL (1.6-2.3); Potassium 3.6 mmol/L (3.4-5.0); Sodium 136 mmol/L (137-145)
[2023-01-12] MEDS: TOLNAFTATE 1% POWDER 45 GM BTL 1 APPLIC TOPICAL ×2 (08:13→20:13)
[2023-01-12] MEDS: ENOXAPARIN 30 MG/0.3 ML SYRINGE SUB-Q (08:15)
[2023-01-12] MEDS: ATORVASTATIN 40 MG TABLET 80 MG PO (08:15)
[2023-01-12] MEDS: MINERAL OIL/WHITE PETROLATUM OINTMENT 1 APPLIC EACH EYE ×2 (08:15→20:13)
[2023-01-12] MEDS: PANTOPRAZOLE SODIUM IV 40 MG VIAL IV PUSH (08:15)
[2023-01-12] MEDS: TICAGRELOR 60 MG TABLET PO (08:15)
[2023-01-12] MEDS: ASPIRIN 325 MG TABLET PO (08:16)
[2023-01-12] MEDS: INSULIN GLARGINE (*BKC) 100 UNITS/ML 12 UNITS SUB-Q ×2 (08:21→20:37)
[2023-01-12 08:45] LABS: Glucose Point of Care 302 mg/dl (65-105)
--- NOTE | 2023-01-12 09:25 | PC.NURSE ---
Spoke with Dr. Martino. May increase levo 2mcg to accommodate dialysis.
--- NOTE | 2023-01-12 09:29 | WPDINTPN ---
Progress Note: A&P Assessment and Plan (1) Respiratory failure: Code(s): J96.90 - Respiratory failure, unspecified, unspecified whether with hypoxia or hypercapnia Status: Acute Assessment and Plan: Respiratory failure/respiratory arrest which may have led to the cardiac arrest, intubated on 01/05/2023 -extubated on 01/08/2023 -reintubated to 01/10 -chest x-ray showed whiteout of right hemithorax likely combination of atelectasis and effusion -01/10 CT chest Complete consolidation/atelectasis of the right lung, with extensive hyperdense material/appearance of the lung parenchyma, suggestive of aspiration. Associated small to small moderate right pleural effusion present. Patchy ground glass opacity in the lingula/anterior left upper lobe, with minimal tree-in-bud opacities in the left lower lobe. Findings are consistent with pneumonia/infectious process. - since then right lung has re-expanded and chest x-ray is improved - FiO2 increased overnight to 80%. I have increase PEEP back up to 8 and decrease FiO2 to 60%. continue weaning - will request Nephrology to attempt hemodialysis - patient was evaluated by pulmonology And Dr. Levy did not feel that bronchoscopy will giveany additional benefit at this time -repeat blood and sputum cultures are pending -continue ertapenem. he will complete a 14 day course of vancomycin today -continue bronchodilators (2) Cardiac arrest: Code(s): I46.9 - Cardiac arrest, cause unspecified Status: Acute Assessment and Plan: 01/05:Cardiac arrest could be related to hypoglycemia, bradycardia secondary to multiple causes. Received 1 round of epi, bicarb, calcium chloride before ROSC, time was approximately 5 minutes.Patient's initial rhythm according the code blue sheet was bradycardia, patient had more so a respiratory arrest. He was intubated during the code. -initially he was on Levophed briefly which was turned off after sedation was stopped -cardiac arrest likely related to severe hypoglycemia, no further recommendations from Cardiology -chronically elevated troponins, within baseline level. No ischemic changes noted on EKG, no evidence of ACS per Cardiology (3) Encephalopathy: Code(s): G93.40 - Encephalopathy, unspecified Status: Acute Assessment and Plan: RESOLVED Post cardiac arrest Encephalopathy: Much improved Now sedated with Versed and fentanyl for acute respiratory failure and mechanical ventilation -continue to monitor neurological status -01/05 CT brain: No intracranial hemorrhage, mass, or acute infarct. 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 Atrophy and chronic white matter changes -most recent ammonia levels within normal limits (4) Sepsis: Code(s): A41.9 - Sepsis, unspecified organism Status: Acute Assessment and Plan: -12/26/2022 blood cultures are positive for Staph epidermidis and Staph hominis 2/2 bottles -12/27/2022 respiratory cultures grew ESBL E coli -12/27/2022 MRSA screen was negative -12/29/2022 repeat blood cultures: Negative x2 -01/05/2023 blood cultures have been obtained 01/05/2023: post arrest patient was hypotensive requiring Levophed but later Levophed was weaned off -patient was started on Zosyn by hospitalist, question of aspiration, Zosyn was discontinued and patient was started on vancomycin and ertapenem Patient now intubated and appears to have right-sided pneumonia which could be aspiration Continue ertapenem. he has completed 2 week course of vancomycin 01/11 repeat sputum and blood cultures are pending -12/27/2022 Echocardiogram did not show any vegetations. Repeat cultures done on 01/05 have been negative -Patient is not sure when he received the tunneled dialysis catheter and where it was done. He states it was probably done at [facility] few months ago but I do not see any operative note regarding tunneled dialysis catheter placement going back last year. -wound care te
--- NOTE | 2023-01-12 10:52 | PCFNICU ---
ICU Rounding Note: Pt current nutrition is Nepro at 40 ml/hr. Last recorded weight is 45 kg. Bowel Motility:colostomy Labs Reviewed:Hgb 8.0, Hct 26.1,Alb 3.4,BUN 58, Cr 3.8,Glu 113 Meds Noted:NovoLog, Lantus, Protonix, Reglan Skin: Stage IV PU-left hip, Saccum Additional Notes: Patient remains on mechanical vent and tube feedings of Nepro at 40 ml/hr. Patient had elevated residuals. Tube feedings on hold, plans to resume at noon. Reglan starting for GI motility. Dialysis today. Protein Modular of Rafal BID for wound healing. Agree with diet orders. Following daily in ICU rounds. Will reassess every Monday and Monday.
[2023-01-12] MEDS: EPOETIN ALFA-EPBX 10,000 UNITS/ML VIAL 10000 UNITS IV PUSH (10:54)
[2023-01-12] MEDS: ALBUMIN HUMAN 25% 12.5 GM/50ML 50 ML IVPB (11:05)
[2023-01-12] MEDS: NOREPINEPHRINE 8 MG/D5W 250 ML 8 MG/250 ML BAG 20.63 MG IV CONT (12:04)
[2023-01-12] MEDS: METOCLOPRAMIDE HCL 10 MG TABLET FEED TUBE ×3 (12:04→23:46)
--- NOTE | 2023-01-12 12:52 | P.PNNP_ITS ---
Progress Note: A&P Assessment and Plan (1) End stage renal disease: Code(s): N18.6 - End stage renal disease Status: Chronic Assessment and Plan: * HD today * tentatively plan next HD on Monday (off schedule currently -- usually M/W/F) * follow electrolytes, volume status, and clearance (2) Acute respiratory failure: Code(s): J96.00 - Acute respiratory failure, unspecified whether with hypoxia or hypercapnia Status: Acute Assessment and Plan: * extubated on 01/08/23 -- reintubated 01/10/23 * ongoing issue during this hospital stay (on 01/02/23 and 01/06/23) * suspect this may have led to cardiac arrest on 01/02/23 * Pulmonary recommendations reviewed (3) Cardiac arrest: Code(s): I46.9 - Cardiac arrest, cause unspecified Status: Acute Assessment and Plan: * precipitated by hypoglycemia and bradycardia (occurred on 01/02/23) * ROSC after ~ 5 minutes * s/p 1 round of epinephritine, bicarb, calcium chloride * seemed more a respiratory arrest based on code blue note * was on levophed post cardiac arrest but this has been weaned off (4) Bacteremia: Code(s): R78.81 - Bacteremia Status: Acute Assessment and Plan: * Staph bacteremia on 12/26 by admission cultures * repeat blood cultures - growth to date * previously on intermittent vancomycin * source -- decubitus ulcers versus tunneled HD catheter versus something else? * HD catheter was recently exchanged * wounds undergoing dressing changes * on ertapenem (5) Altered mental status: Code(s): R41.82 - Altered mental status, unspecified Status: Acute Assessment and Plan: * improving prior to cardiac arrest * was stable at the time of last extubation * follow mentation * CT of brain noted (6) Anemia: Code(s): D64.9 - Anemia, unspecified Status: Chronic Assessment and Plan: * due to ESRD and possible acute illness * Epogen with HD * follow H/H (7) Decubitus ulcers: Code(s): L89.90 - Pressure ulcer of unspecified site, unspecified stage Status: Chronic Assessment and Plan: * local wound care * wound care nurse following (8) Diabetes: Qualifiers: Diabetes mellitus complication detail: with other circulatory complications Diabetes mellitus complication status: with circulatory complication Diabetes mellitus type: type 1 Qualified Code(s): E10.59 - Type 1 diabetes mellitus with other circulatory complications Code(s): E11.9 - Type 2 diabetes mellitus without complications Status: Chronic Assessment and Plan: * on Accu-Cheks * glycemic control per hospitalist/shell press operator Will continue to follow. Subjective Date/time seen: 01/12/23 12:52 Tolerating hemodialysis treatment at the time of my visit (seen on HD at 12:45PM); requiring higher doses of levophed to maintain blood pressure during dialysis treatment; remains intubated and on mechanical ventilation; higher oxygen requirements noted overnight; and daughter at bedside and we disc ussed the situation. Exam Narrative: General: ill appearing male intubated and on mechanical ventilation Heart: normal S1 and S2; no rub or gallop Lungs: coarse breath sounds throughout; decreased at bases Abdomen: soft with + bowel sounds; colostomy noted Extremities: no cyanosis or clubbing; left AKA and right BKA Skin: wounds with dressings in place Objective Data Vital Signs Vital Sign
--- NOTE | 2023-01-12 12:52 | PM.PNNEP ---
Progress Note: A&P Assessment and Plan (1) End stage renal disease: Code(s): N18.6 - End stage renal disease Status: Chronic Assessment and Plan: HD today tentatively plan next HD on Monday (off schedule currently -- usually M/W/F) follow electrolytes, volume status, and clearance (2) Acute respiratory failure: Code(s): J96.00 - Acute respiratory failure, unspecified whether with hypoxia or hypercapnia Status: Acute Assessment and Plan: extubated on 01/08/23 -- reintubated 01/10/23 ongoing issue during this hospital stay (on 01/02/23 and 01/06/23) suspect this may have led to cardiac arrest on 01/02/23 Pulmonary recommendations reviewed (3) Cardiac arrest: Code(s): I46.9 - Cardiac arrest, cause unspecified Status: Acute Assessment and Plan: precipitated by hypoglycemia and bradycardia (occurred on 01/02/23) ROSC after ~ 5 minutes s/p 1 round of epinephritine, bicarb, calcium chloride seemed more a respiratory arrest based on code blue note was on levophed post cardiac arrest but this has been weaned off (4) Bacteremia: Code(s): R78.81 - Bacteremia Status: Acute Assessment and Plan: Staph bacteremia on 12/26 by admission cultures repeat blood cultures - growth to date previously on intermittent vancomycin source -- decubitus ulcers versus tunneled HD catheter versus something else? HD catheter was recently exchanged wounds undergoing dressing changes on ertapenem (5) Altered mental status: Code(s): R41.82 - Altered mental status, unspecified Status: Acute Assessment and Plan: improving prior to cardiac arrest was stable at the time of last extubation follow mentation CT of brain noted (6) Anemia: Code(s): D64.9 - Anemia, unspecified Status: Chronic Assessment and Plan: due to ESRD and possible acute illness Epogen with HD follow H/H (7) Decubitus ulcers: Code(s): L89.90 - Pressure ulcer of unspecified site, unspecified stage Status: Chronic Assessment and Plan: local wound care wound care nurse following (8) Diabetes: Qualifiers: Diabetes mellitus complication detail: with other circulatory complications Diabetes mellitus complication status: with circulatory complication Diabetes mellitus type: type 1 Qualified Code(s): E10.59 - Type 1 diabetes mellitus with other circulatory complications Code(s): E11.9 - Type 2 diabetes mellitus without complications Status: Chronic Assessment and Plan: on [facility] glycemic control per hospitalist/pumper gager Will continue to follow. Subjective Date/time seen: 01/12/23 12:52 Tolerating hemodialysis treatment at the time of my visit (seen on HD at 12:45PM); requiring higher doses of levophed to maintain blood pressure during dialysis treatment; remains intubated and on mechanical ventilation; higher oxygen requirements noted overnight; and daughter at bedside and we discussed the situation. Exam Narrative: General: ill appearing male intubated and on mechanical ventilation Heart: normal S1 and S2; no rub or gallop Lungs: coarse breath sounds throughout; decreased at bases Abdomen: soft with + bowel sounds; colostomy noted Extremities: no cyanosis or clubbing; left AKA and right BKA Skin: wounds with dressings in place Objective Data Vital Signs Vital Signs: Vital Signs Temp Pulse Resp BP Pulse Ox O2 Del Method FiO2 01/12/23 12:00 40 01/12/23 08:00 80 01/12/23 12:00 98 01/12/23 10:00 87 01/12/23 08:00 78 01/12/23 12:00 98.2 F 99 18 101/79 100 01/12/23 10:00 98.2 F 88 18 88/71 L 100 01/12/23 08:00 96.8 F L 81 18 81/60 L 100 01/12/23 08:00 Mechanical Ventilation 80 01/12/23 13:03 101 H 75/53 L 01/12/23 12:45 100 93/66 L 01/12/23 12:30
[2023-01-12 13:57] LABS: Glucose Point of Care 157 mg/dl (65-105)
--- NOTE | 2023-01-12 17:09 | PM.IMPN ---
Progress Note: A&P Assessment and Plan (1) Respiratory failure: Code(s): J96.90 - Respiratory failure, unspecified, unspecified whether with hypoxia or hypercapnia Status: Acute Assessment and Plan: Respiratory failure/respiratory arrest which may have led to the cardiac arrest, intubated on 01/05/2023 -extubated on 01/08/2023 -reintubated on 01/10 -chest x-ray showed whiteout of right hemithorax likely combination of atelectasis and effusion -check CT chest -may need bronchoscopy -ABG reviewed and will increase PEEP to 8 -patient currently on vancomycin, imipenem which will be continued -continue bronchodilators 01/12/2023 interval history: 57-year-old male with history of diabetes end-stage renal disease on hemodialysis currently on ventilator unable to provide any review of symptoms or history, respiratory failure suspect due to pneumonia and secretion as patient is quite debilitated, patient family is considering withdrawal of care waiting for the other family member to arrive from out of town, will continue to monitor, patient is present in the room, answered all her questions. (2) Cardiac arrest: Code(s): I46.9 - Cardiac arrest, cause unspecified Status: Acute Assessment and Plan: 01/05:Cardiac arrest could be related to hypoglycemia, bradycardia secondary to multiple causes. Received 1 round of epi, bicarb, calcium chloride before ROSC, time was approximately 5 minutes.Patient's initial rhythm according the code blue sheet was bradycardia, patient had more so a respiratory arrest. He was intubated during the code. (3) Encephalopathy: Code(s): G93.40 - Encephalopathy, unspecified Status: Acute Assessment and Plan: Currently intubated. (4) Sepsis: Code(s): A41.9 - Sepsis, unspecified organism Status: Acute Assessment and Plan: -12/26/2022 blood cultures are positive for Staph epidermidis and Staph hominis 2/2 bottles -12/27/2022 respiratory cultures grew ESBL E coli -12/27/2022 MRSA screen was negative -12/29/2022 repeat blood cultures: Negative x2 -01/05/2023 blood cultures have been obtained 01/05/2023: post arrest patient was hypotensive requiring Levophed but later Levophed was weaned off -continue to maintain MAP > 65 mmHg for adequate end organ perfusion -patient was started on Zosyn by hospitalist, question of aspiration, Zosyn was discontinued and patient was started on vancomycin and ertapenem -continues to be on vancomycin ertapenem -12/27/2022 Echocardiogram did not show any vegetations. Repeat cultures done on 01/05 have been negative -Patient is not sure when he received the tunneled dialysis catheter and where it was done. He states it was probably done at [facility] few months ago but I do not see any operative note regarding tunneled dialysis catheter placement going back last year. -wound care team is following the patient (5) End stage renal disease: Code(s): N18.6 - End stage renal disease Status: Chronic Assessment and Plan: Patient has a history of end-stage renal disease, on dialysis -he is very sensitive to volume overload and has been admitted to the hospital multiple times for the same reason -dialysis per Nephrology, (6) Pulmonary edema: Code(s): J81.1 - Chronic pulmonary edema Status: Acute Assessment and Plan: Continue dialysis per Nephrology (7) Decubitus ulcer of sacral area: Code(s): L89.159 - Pressure ulcer of sacral region, unspecified stage Status: Chronic Assessment and Plan: Wound care evaluated the patient and recommendations for wound care appreciated (8) IDDM (insulin dependent diabetes mellitus): Status: Chronic Assessment and Plan: -blood sugars are fluctuating -continue Lantus and sliding scale -start tube feeds (9) Anemia: Code(s): D64.9 - Anemia, unspecified Status: Acute Assessment and Ricardo
[2023-01-12 17:15] LABS: Glucose Point of Care 269 mg/dl (65-105)
[2023-01-12] MEDS: ERTAPENEM SODIUM 0.5 GM in SODIUM CHLORIDE 0.9% IV 50 ML IVPB (17:18)
[2023-01-12] MEDS: ALTEPLASE 2 MG VIAL (CATHFLO) IV PUSH (21:45)
[2023-01-12 21:55] LABS: Glucose Point of Care 290 mg/dl (65-105)
--- NOTE | 2023-01-12 22:36 | PC.NURSE ---
No blood return from blue or brown ports from central line. Cathflo administered per PRN order. Afetr 30 min still no blood return, will continue to dwell and assess at 2350.
[2023-01-13] VITALS (43 sets, daily range): BP systolic 94–137; BP diastolic 55–86; PULSE 79–97; RESP 18–22; TEMP 36.4–36.9; O2SAT 94–100
[2023-01-13] MEDS: INSULIN ASPART (*BKC) 100 UNITS/ML SUB-Q ×5 (00:01→20:40)
[2023-01-13] MEDS: ALTEPLASE 2 MG VIAL (CATHFLO) IV PUSH (00:46)
[2023-01-13] MEDS: LEVALBUTEROL NEB 1.25 MG/3 ML 0.63 MG INHALATION ×3 (02:26→20:15)
[2023-01-13] MEDS: SOD HYPOCHLORITE 1/4 STRENGTH 473 ML 1 APPLIC TOPICAL ×3 (02:27→23:00)
[2023-01-13 04:41] LABS: Glucose Point of Care 322 mg/dl (65-105)
[2023-01-13] MEDS: METOCLOPRAMIDE HCL 10 MG TABLET FEED TUBE ×3 (05:06→18:00)
[2023-01-13] MEDS: HYDROCORTISONE SODIUM SUCCINATE 100 MG/2 ML VIAL IV PUSH ×3 (05:06→21:37)
[2023-01-13] MEDS: CENTRAL LINE FLUSH 10 ML IV PUSH ×4 (05:07→21:37)
[2023-01-13 05:14] LABS: Hematocrit 28.6 % (42.0-52.0); Hemoglobin 8.4 g/dL (14.0-18.0); Mean Corpuscular HGB Conc 29.4 g/dl (32-36); Mean Corpuscular Hemoglobin 30.2 pg (26-34); Mean Corpuscular Volume 102.9 fl (80-100); Mean Platelet Volume 10.3 fl (7.4-10.4); Platelet Count Result 634 k/mm3 (150-375); Red Blood Count 2.78 M/mm3 (4.6-6.20); Red Cell Distribution Width 21.9 % (11.5-14.5); White Blood Count 18.9 K/mm3 (4.5-10.0)
[2023-01-13] MEDS: FENTANYL 2,500MCG/NS250ML(*CRX 2,500 MCG/250 ML BAG 7.5 MCG IV CONT (05:21)
[2023-01-13] MEDS: MIDAZOLAM 100MG/NS 100ML(*CRX) 100 MG/100 ML BAG IV CONT (05:22)
[2023-01-13 05:26] LABS: Alanine Aminotransferase 12 U/L (6-50); Albumin Level 3.8 g/dL (3.5-5.1); Alkaline Phosphatase 108 U/L (38-126); Anion Gap 10 mmol/L (8-16); Aspartate Amino Transferase 24 U/L (17-59); Bilirubin,Total 0.5 mg/dL (0.2-1.3); Blood Urea Nitrogen 51 mg/dL (9-20); Calcium 10.5 mg/dL (8.4-10.2); Carbon Dioxide 27 mmol/L (22-30); Chloride 105 mmol/L (98-107); Estimated Glomerular Filt Rate 27; Glucose 318 mg/dL (65-110); Magnesium 2.6 mg/dL (1.6-2.3); Potassium 3.7 mmol/L (3.4-5.0); Sodium 142 mmol/L (137-145)
[2023-01-13 06:16] LABS: Alveolar/Arterial O2 Gradient 78.1 mmHg; Arterial Blood Gas Vent Mode CMV; Arterial Blood Gas Ventilator rate 18 /MIN; Carboxyhemoglobin 0.3 % THb (0-2.0); Device VENTILATOR; Fractional Inspired Oxygen 30 %; HCO3 ABG 22.8 mEq/l (22.0-26.0); Methemoglobin ABG 0.3 %THb (0-1.5); Oxygen Content ABG 12.4 %vol (16.0-22.0); Oxygen Saturation ABG 97.6 % (95.0-100.0); Oxyhemoglobin 95.8 % THb (90.0-100.0); PCO2 ABG 34.1 mmHg (35.0-45.0); PO2 ABG 95.7 mmHg (80.0-100.0); PO2 FiO2 Ratio Arterial Blood 3.19 %; Reduced Hemoglobin 3.6 %THb (0-5.0); Site Drawn RIGHT BRACHIAL; Total Hemoglobin 9.1 g/dL (12.0-18.0); pH ABG 7.443 (7.350-7.450)
[2023-01-13 06:17] LABS: Arterial Blood Gas PEEP 8 cmH2O; Arterial Blood Gas Tidal Volume 400 ml
[2023-01-13 06:25] LABS: Glucose Point of Care 250 mg/dl (65-105)
[2023-01-13] MEDS: INSULIN GLARGINE (*BKC) 100 UNITS/ML 12 UNITS SUB-Q ×2 (07:32→20:40)
[2023-01-13 07:33] LABS: Glucose Point of Care 239 mg/dl (65-105)
[2023-01-13] MEDS: ENOXAPARIN 30 MG/0.3 ML SYRINGE SUB-Q (07:35)
[2023-01-13] MEDS: TOLNAFTATE 1% POWDER 45 GM BTL 1 APPLIC TOPICAL ×2 (07:36→20:41)
[2023-01-13] MEDS: PANTOPRAZOLE SODIUM IV 40 MG VIAL IV PUSH (07:37)
[2023-01-13] MEDS: ASPIRIN 325 MG TABLET PO (07:37)
[2023-01-13] MEDS: TICAGRELOR 60 MG TABLET PO (07:37)
[2023-01-13] MEDS: MINERAL OIL/WHITE PETROLATUM OINTMENT 1 APPLIC EACH EYE ×2 (07:37→20:41)
[2023-01-13] MEDS: ATORVASTATIN 40 MG TABLET 80 MG PO (07:37)
--- NOTE | 2023-01-13 08:57 | WPDINTPN ---
Progress Note: A&P Assessment and Plan (1) Respiratory failure: Code(s): J96.90 - Respiratory failure, unspecified, unspecified whether with hypoxia or hypercapnia Status: Acute Assessment and Plan: Respiratory failure/respiratory arrest which may have led to the cardiac arrest, intubated on 01/05/2023 -extubated on 01/08/2023 -reintubated to 01/10 -chest x-ray showed whiteout of right hemithorax likely combination of atelectasis and effusion -01/10 CT chest Complete consolidation/atelectasis of the right lung, with extensive hyperdense material/appearance of the lung parenchyma, suggestive of aspiration. Associated small to small moderate right pleural effusion present. Patchy ground glass opacity in the lingula/anterior left upper lobe, with minimal tree-in-bud opacities in the left lower lobe. Findings are consistent with pneumonia/infectious process. - since then right lung has re-expanded and chest x-ray is improved - FiO2 down to 30%. will decrease the PEEP to 5. - if patient maintains oxygenation will evaluate attempt a weaning trial - continue hemodialysis per Nephrology - patient was evaluated by pulmonology And Dr. Levy did not feel that bronchoscopy will give any additional benefit at this time since his lung has re-expanded -repeat blood and sputum cultures are negative till now -continue ertapenem. he has completed a 14 day course of vancomycin today -continue bronchodilators (2) Cardiac arrest: Code(s): I46.9 - Cardiac arrest, cause unspecified Status: Acute Assessment and Plan: 01/05:Cardiac arrest could be related to hypoglycemia, bradycardia secondary to multiple causes. Received 1 round of epi, bicarb, calcium chloride before ROSC, time was approximately 5 minutes.Patient's initial rhythm according the code blue sheet was bradycardia, patient had more so a respiratory arrest. He was intubated during the code. -cardiac arrest likely related to severe hypoglycemia, no further recommendations from Cardiology -chronically elevated troponins, within baseline level. No ischemic changes noted on EKG, no evidence of ACS per Cardiology (3) Encephalopathy: Code(s): G93.40 - Encephalopathy, unspecified Status: Acute Assessment and Plan: RESOLVED Post cardiac arrest Encephalopathy: Much improved Now sedated with Versed and fentanyl for acute respiratory failure and mechanical ventilation -continue to monitor neurological status -01/05 CT brain: No intracranial hemorrhage, mass, or acute infarct. 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 Atrophy and chronic white matter changes -most recent ammonia levels within normal limits (4) Sepsis: Code(s): A41.9 - Sepsis, unspecified organism Status: Acute Assessment and Plan: -12/26/2022 blood cultures are positive for Staph epidermidis and Staph hominis 2/2 bottles -12/27/2022 respiratory cultures grew ESBL E coli -12/27/2022 MRSA screen was negative -12/29/2022 repeat blood cultures: Negative x2 -01/05/2023 blood cultures have been obtained 01/05/2023: post arrest patient was hypotensive requiring Levophed but later Levophed was weaned off -patient was started on Zosyn by hospitalist, question of aspiration, Zosyn was discontinued and patient was started on vancomycin and ertapenem Patient now intubated and appears to have right-sided pneumonia which could be aspiration Continue ertapenem. he has completed 2 week course of vancomycin 01/11 repeat sputum and blood cultures are negative now - elevated WBC partially secondary to steroids that he is on -12/27/2022 Echocardiogram did not show any vegetations. Repeat cultures done on 01/05 have been negative -Patient is not sure when he received the tunneled dialysis catheter and where it was done. He states it was probably done at [facility] few months ago but I do not see any operative note regarding tunneled dialysis catheter placement going chi
--- NOTE | 2023-01-13 11:12 | PM.PNNEP ---
Progress Note: A&P Assessment and Plan (1) End stage renal disease: Code(s): N18.6 - End stage renal disease Status: Chronic Assessment and Plan: HD yesterday tentatively plan next HD tomorrow/on Monday (off schedule currently -- usually M/W/F) follow electrolytes, volume status, and clearance (2) Acute respiratory failure: Code(s): J96.00 - Acute respiratory failure, unspecified whether with hypoxia or hypercapnia Status: Acute Assessment and Plan: extubated on 01/08/23 -- reintubated 01/10/23 ongoing issue during this hospital stay (on 01/02/23 and 01/06/23) suspect this may have led to cardiac arrest on 01/02/23 Pulmonary recommendations noted (3) Cardiac arrest: Code(s): I46.9 - Cardiac arrest, cause unspecified Status: Acute Assessment and Plan: occurred on 01/02/23 precipitated by hypoglycemia and bradycardia ROSC after ~ 5 minutes s/p 1 round of epinephritine, bicarb, calcium chloride seemed more a respiratory arrest based on code blue note (4) Bacteremia: Code(s): R78.81 - Bacteremia Status: Acute Assessment and Plan: Staph bacteremia on 12/26 by admission cultures repeat blood cultures - growth to date previously on intermittent vancomycin source -- decubitus ulcers versus tunneled HD catheter versus something else? HD catheter was recently exchanged wounds undergoing dressing changes on ertapenem (5) Altered mental status: Code(s): R41.82 - Altered mental status, unspecified Status: Acute Assessment and Plan: improving prior to cardiac arrest was stable at the time of last extubation follow mentation CT of brain noted (6) Anemia: Code(s): D64.9 - Anemia, unspecified Status: Chronic Assessment and Plan: due to ESRD and possible acute illness Epogen with HD follow H/H (7) Decubitus ulcers: Code(s): L89.90 - Pressure ulcer of unspecified site, unspecified stage Status: Chronic Assessment and Plan: local wound care wound care nurse following (8) Diabetes: Qualifiers: Diabetes mellitus complication detail: with other circulatory complications Diabetes mellitus complication status: with circulatory complication Diabetes mellitus type: type 1 Qualified Code(s): E10.59 - Type 1 diabetes mellitus with other circulatory complications Code(s): E11.9 - Type 2 diabetes mellitus without complications Status: Chronic Assessment and Plan: on [facility]u-[facility] glycemic control per hospitalist/claims supervisor Will continue to follow. Subjective Date/time seen: 01/13/23 11:12 Tolerated dialysis treatment yesterday with 2L fluid removal but required increased vasopressor support to acheive this; remains intubated/sedated and on mechanical ventilation; remains on levophed gtt for blood pressure support; no other acute issues/events overnight or earlier this AM. Exam Narrative: General: ill appearing male intubated and on mechanical ventilation Heart: normal S1 and S2; no rub or gallop Lungs: coarse breath sounds throughout; decreased at bases Abdomen: soft with + bowel sounds; colostomy noted Extremities: no cyanosis or clubbing; left AKA and right BKA Skin: wounds with dressings present Objective Data Vital Signs Vital Signs: Vital Signs Temp Pulse Resp BP Pulse Ox O2 Del Method FiO2 01/13/23 11:12 94 110/66 01/13/23 11:11 89 22 H 100 Mechanical Ventilation 30 01/13/23 10:00 90 18 94/61 L 100 01/13/23 09:58 91 01/13/23 09:55 85 18 01/13/23 09:54 85 18 01/13/23 09:54 86 120/75 01/13/23 08:00 84 01/13/23 08:05 91 20 01/13/23 08:05 82 100 Mechanical Ventilation 30 01/13/23 07:50 30 01/13/23 07:35 80 18 01/13/23 07:35 80 18 01/13/23 07:32 82 96/65 L 01/13/23 07:31 3
--- NOTE | 2023-01-13 11:12 | P.PNNP_ITS ---
Progress Note: A&P Assessment and Plan (1) End stage renal disease: Code(s): N18.6 - End stage renal disease Status: Chronic Assessment and Plan: * HD yesterday * tentatively plan next HD tomorrow/on Monday (off schedule currently -- usually M/W/F) * follow electrolytes, volume status, and clearance (2) Acute respiratory failure: Code(s): J96.00 - Acute respiratory failure, unspecified whether with hypoxia or hypercapnia Status: Acute Assessment and Plan: * extubated on 01/08/23 -- reintubated 01/10/23 * ongoing issue during this hospital stay (on 01/02/23 and 01/06/23) * suspect this may have led to cardiac arrest on 01/02/23 * Pulmonary recommendations noted (3) Cardiac arrest: Code(s): I46.9 - Cardiac arrest, cause unspecified Status: Acute Assessment and Plan: * occurred on 01/02/23 * precipitated by hypoglycemia and bradycardia * ROSC after ~ 5 minutes * s/p 1 round of epinephritine, bicarb, calcium chloride * seemed more a respiratory arrest based on code blue note (4) Bacteremia: Code(s): R78.81 - Bacteremia Status: Acute Assessment and Plan: * Staph bacteremia on 12/26 by admission cultures * repeat blood cultures - growth to date * previously on intermittent vancomycin * source -- decubitus ulcers versus tunneled HD catheter versus something else? * HD catheter was recently exchanged * wounds undergoing dressing changes * on ertapenem (5) Altered mental status: Code(s): R41.82 - Altered mental status, unspecified Status: Acute Assessment and Plan: * improving prior to cardiac arrest * was stable at the time of last extubation * follow mentation * CT of brain noted (6) Anemia: Code(s): D64.9 - Anemia, unspecified Status: Chronic Assessment and Plan: * due to ESRD and possible acute illness * Epogen with HD * follow H/H (7) Decubitus ulcers: Code(s): L89.90 - Pressure ulcer of unspecified site, unspecified stage Status: Chronic Assessment and Plan: * local wound care * wound care nurse following (8) Diabetes: Qualifiers: Diabetes mellitus complication detail: with other circulatory complications Diabetes mellitus complication status: with circulatory complication Diabetes mellitus type: type 1 Qualified Code(s): E10.59 - Type 1 diabetes mellitus with other circulatory complications Code(s): E11.9 - Type 2 diabetes mellitus without complications Status: Chronic Assessment and Plan: * on Accu-Cheks * glycemic control per hospitalist/ticket speculator Will continue to follow. Subjective Date/time seen: 01/13/23 11:12 Tolerated dialysis treatment yesterday with 2L fluid removal but required increased vasopressor support to acheive this; remains intubated/sedated and on mechanical ventilation; remains on levophed gtt for blood pressure support; no other acute issues/events overnight or earlier this AM. Exam Narrative: General: ill appearing male intubated and on mechanical ventilation Heart: normal S1 and S2; no rub or gallop Lungs: coarse breath sounds throughout; decreased at bases Abdomen: soft with + bowel sounds; colostomy noted Extremities: no cyanosis or clubbing; left AKA and right BKA Skin: wounds with dressings present Objective Data Vital Signs Vital Signs: Vi
[2023-01-13 11:57] LABS: Glucose Point of Care 180 mg/dl (65-105)
--- NOTE | 2023-01-13 12:12 | PCNFU ---
Nutrition Follow-Up Complete: Inadequate Oral Intake as related to mechanical ventilation as evidenced by NPO. Goal: Meet estimated nutritional needs Patient is meeting goal. We will continue current goal. Pt current nutrition is Nepro at 40 ml/hr Last recorded weight is 41.2 kg. Bowel Motility:colostomy Labs Reviewed:Mg 2.6,Glu 318, BUN 51, Hct 28.6,Hgb 8.4 Meds Noted:Lantus, Lipitor, Reglan, Versed, Fentanyl, NovoLog. Skin: IV PU-saccum, left hip Additional Notes: Patient remains on mechanical vent and tube feedings of Nepro at 40 ml/hr and tolerating per nursing. Tube feeding providing 1584 kcals/72 gms protein/640 ml water. Flush 30 ml q 4hours. Protein Modular of Rafal BID for wound healing. Agree with diet orders. Will monitor in ICU rounds and reassess every Monday and Monday.
--- NOTE | 2023-01-13 14:57 | PM.IMPN ---
Progress Note: A&P Assessment and Plan (1) Respiratory failure: Code(s): J96.90 - Respiratory failure, unspecified, unspecified whether with hypoxia or hypercapnia Status: Acute Assessment and Plan: Respiratory failure/respiratory arrest which may have led to the cardiac arrest, intubated on 01/05/2023 -extubated on 01/08/2023 -reintubated on 01/10 -chest x-ray showed whiteout of right hemithorax likely combination of atelectasis and effusion -check CT chest -may need bronchoscopy -ABG reviewed and will increase PEEP to 8 -patient currently on vancomycin, imipenem which will be continued -continue bronchodilators 01/13/2023 interval history: 57-year-old male with history of diabetes end-stage renal disease on hemodialysis currently on ventilator unable to provide any review of symptoms or history, respiratory failure suspect due to pneumonia and secretion as patient is quite debilitated, patient family is considering withdrawal of care waiting for the other family member to arrive from out of town, will continue to monitor, patient daughter and freinds are present in the room, answered all her questions. (2) Cardiac arrest: Code(s): I46.9 - Cardiac arrest, cause unspecified Status: Acute Assessment and Plan: 01/05:Cardiac arrest could be related to hypoglycemia, bradycardia secondary to multiple causes. Received 1 round of epi, bicarb, calcium chloride before ROSC, time was approximately 5 minutes.Patient's initial rhythm according the code blue sheet was bradycardia, patient had more so a respiratory arrest. He was intubated during the code. (3) Encephalopathy: Code(s): G93.40 - Encephalopathy, unspecified Status: Acute Assessment and Plan: Currently intubated. (4) Sepsis: Code(s): A41.9 - Sepsis, unspecified organism Status: Acute Assessment and Plan: -12/26/2022 blood cultures are positive for Staph epidermidis and Staph hominis 2/ bottles -12/27/2022 respiratory cultures grew ESBL E coli -12/27/2022 MRSA screen was negative -12/29/2022 repeat blood cultures: Negative x2 -01/05/2023 blood cultures have been obtained 01/05/2023: post arrest patient was hypotensive requiring Levophed but later Levophed was weaned off -continue to maintain MAP > 65 mmHg for adequate end organ perfusion -patient was started on Zosyn by hospitalist, question of aspiration, Zosyn was discontinued and patient was started on vancomycin and ertapenem -continues to be on vancomycin ertapenem -12/27/2022 Echocardiogram did not show any vegetations. Repeat cultures done on 01/05 have been negative -Patient is not sure when he received the tunneled dialysis catheter and where it was done. He states it was probably done at [facility] few months ago but I do not see any operative note regarding tunneled dialysis catheter placement going back last year. -wound care team is following the patient (5) End stage renal disease: Code(s): N18.6 - End stage renal disease Status: Chronic Assessment and Plan: Patient has a history of end-stage renal disease, on dialysis -he is very sensitive to volume overload and has been admitted to the hospital multiple times for the same reason -dialysis per Nephrology, (6) Pulmonary edema: Code(s): J81.1 - Chronic pulmonary edema Status: Acute Assessment and Plan: Continue dialysis per Nephrology (7) Decubitus ulcer of sacral area: Code(s): L89.159 - Pressure ulcer of sacral region, unspecified stage Status: Chronic Assessment and Plan: Wound care evaluated the patient and recommendations for wound care appreciated (8) IDDM (insulin dependent diabetes mellitus): Status: Chronic Assessment and Plan: -blood sugars are fluctuating -continue Lantus and sliding scale -start tube feeds (9) Anemia: Code(s): D64.9 - Anemia, unspecified Status: Acute
[2023-01-13 16:13] LABS: Glucose Point of Care 279 mg/dl (65-105)
[2023-01-13] MEDS: NOREPINEPHRINE 8 MG/D5W 250 ML 8 MG/250 ML BAG 3.75 MG IV CONT (16:45)
[2023-01-13] MEDS: ERTAPENEM SODIUM 0.5 GM in SODIUM CHLORIDE 0.9% IV 50 ML IVPB (18:00)
[2023-01-13 20:33] LABS: Glucose Point of Care 269 mg/dl (65-105)
[2023-01-14] VITALS (62 sets, daily range): BP systolic 74–140; BP diastolic 51–86; PULSE 78–106; RESP 14–29; TEMP 35.9–36.9; O2SAT 89–100
[2023-01-14 00:15] LABS: Glucose Point of Care 209 mg/dl (65-105)
[2023-01-14] MEDS: METOCLOPRAMIDE HCL 10 MG TABLET FEED TUBE ×4 (00:54→17:08)
[2023-01-14] MEDS: INSULIN ASPART (*BKC) 100 UNITS/ML SUB-Q ×3 (00:54→20:41)
[2023-01-14] MEDS: LEVALBUTEROL NEB 1.25 MG/3 ML 0.63 MG INHALATION ×4 (02:00→20:25)
[2023-01-14 04:50] LABS: Glucose Point of Care 173 mg/dl (65-105)
[2023-01-14 04:52] LABS: Hematocrit 28.6 % (42.0-52.0); Hemoglobin 8.5 g/dL (14.0-18.0); Mean Corpuscular HGB Conc 29.7 g/dl (32-36); Mean Corpuscular Hemoglobin 30.2 pg (26-34); Mean Corpuscular Volume 101.8 fl (80-100); Platelet Count Result 608 k/mm3 (150-375); Red Blood Count 2.81 M/mm3 (4.6-6.20); Red Cell Distribution Width 22.4 % (11.5-14.5); White Blood Count 18.6 K/mm3 (4.5-10.0)
[2023-01-14] MEDS: CENTRAL LINE FLUSH 10 ML IV PUSH ×3 (05:02→20:33)
[2023-01-14] MEDS: HYDROCORTISONE SODIUM SUCCINATE 100 MG/2 ML VIAL IV PUSH ×3 (05:02→20:43)
[2023-01-14 05:12] LABS: Alanine Aminotransferase 11 U/L (6-50); Albumin Level 3.6 g/dL (3.5-5.1); Alkaline Phosphatase 105 U/L (38-126); Anion Gap 10 mmol/L (8-16); Aspartate Amino Transferase 36 U/L (17-59); Bilirubin,Total 0.4 mg/dL (0.2-1.3); Blood Urea Nitrogen 82 mg/dL (9-20); Calcium 10.9 mg/dL (8.4-10.2); Carbon Dioxide 31 mmol/L (22-30); Chloride 101 mmol/L (98-107); Estimated Glomerular Filt Rate 20; Glucose 169 mg/dL (65-110); Magnesium 2.7 mg/dL (1.6-2.3); Potassium 3.3 mmol/L (3.4-5.0); Sodium 142 mmol/L (137-145)
[2023-01-14 06:13] LABS: Alveolar/Arterial O2 Gradient 97.1 mmHg; Base Excess ABG 3.6 mEq/l (+/-2.0); Carboxyhemoglobin 0.3 % THb (0-2.0); Fractional Inspired Oxygen 30 %; Methemoglobin ABG 0.5 %THb (0-1.5); Oxygen Content ABG 12.9 %vol (16.0-22.0); Oxyhemoglobin 93.2 % THb (90.0-100.0); PCO2 ABG 36.3 mmHg (35.0-45.0); PO2 ABG 74.2 mmHg (80.0-100.0); PO2 FiO2 Ratio Arterial Blood 2.47 %; Total Hemoglobin 9.8 g/dL (12.0-18.0)
[2023-01-14 06:14] LABS: Arterial Blood Gas PEEP 5 cmH2O; Arterial Blood Gas Tidal Volume 400 ml; Arterial Blood Gas Vent Mode CMV; Arterial Blood Gas Ventilator rate 18 /MIN; Device VENTILATOR; Site Drawn RIGHT BRACHIAL
--- NOTE | 2023-01-14 07:56 | WPDINTPN ---
Progress Note: A&P Assessment and Plan (1) Respiratory failure: Code(s): J96.90 - Respiratory failure, unspecified, unspecified whether with hypoxia or hypercapnia Status: Acute Assessment and Plan: Respiratory failure/respiratory arrest which may have led to the cardiac arrest, intubated on 01/05/2023 -extubated on 01/08/2023 -reintubated to 01/10 -chest x-ray showed whiteout of right hemithorax likely combination of atelectasis and effusion -01/10 CT chest Complete consolidation/atelectasis of the right lung, with extensive hyperdense material/appearance of the lung parenchyma, suggestive of aspiration. Associated small to small moderate right pleural effusion present. Patchy ground glass opacity in the lingula/anterior left upper lobe, with minimal tree-in-bud opacities in the left lower lobe. Findings are consistent with pneumonia/infectious process. - since then right lung has re-expanded and chest x-ray is improved - FiO2 down to 30%. will decrease the PEEP to 5. - will attempt a weaning trial today. Even if patient is able to be weaned from the ventilator he is at high risk of re-intubation due to weakness including airway and risk of aspiration - continue hemodialysis per Nephrology - patient was evaluated by pulmonology And Dr. Levy did not feel that bronchoscopy will give any additional benefit at this time since his lung has re-expanded -repeat blood and sputum cultures are negative till now -continue ertapenem. he has completed a 14 day course of vancomycin today -continue bronchodilators (2) Cardiac arrest: Code(s): I46.9 - Cardiac arrest, cause unspecified Status: Acute Assessment and Plan: 01/05:Cardiac arrest could be related to hypoglycemia, bradycardia secondary to multiple causes. Received 1 round of epi, bicarb, calcium chloride before ROSC, time was approximately 5 minutes.Patient's initial rhythm according the code blue sheet was bradycardia, patient had more so a respiratory arrest. He was intubated during the code. -cardiac arrest likely related to severe hypoglycemia, no further recommendations from Cardiology -chronically elevated troponins, within baseline level. No ischemic changes noted on EKG, no evidence of ACS per Cardiology (3) Encephalopathy: Code(s): G93.40 - Encephalopathy, unspecified Status: Acute Assessment and Plan: RESOLVED Post cardiac arrest Encephalopathy: Much improved Now sedated with Versed and fentanyl for acute respiratory failure and mechanical ventilation -continue to monitor neurological status -01/05 CT brain: No intracranial hemorrhage, mass, or acute infarct. 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 Atrophy and chronic white matter changes -most recent ammonia levels within normal limits (4) Sepsis: Code(s): A41.9 - Sepsis, unspecified organism Status: Acute Assessment and Plan: -12/26/2022 blood cultures are positive for Staph epidermidis and Staph hominis 2/ bottles -12/27/2022 respiratory cultures grew ESBL E coli -12/27/2022 MRSA screen was negative -12/29/2022 repeat blood cultures: Negative x2 -01/05/2023 blood cultures have been obtained 01/05/2023: post arrest patient was hypotensive requiring Levophed but later Levophed was weaned off -patient was started on Zosyn by hospitalist, question of aspiration, Zosyn was discontinued and patient was started on vancomycin and ertapenem Patient now intubated and appears to have right-sided pneumonia which could be aspiration Continue ertapenem. he has completed 2 week course of vancomycin 01/11 repeat sputum and blood cultures are negative now - elevated WBC partially secondary to steroids that he is on -12/27/2022 Echocardiogram did not show any vegetations. Repeat cultures done on 01/05 have been negative -Patient is not sure when he received the tunneled dialysis catheter and where it was done. He states it was probably done at [facility]
[2023-01-14] MEDS: SODIUM CHLORIDE 0.9% IV 1,000 ML 999 ML IV CONT (08:54)
[2023-01-14] MEDS: ALBUMIN HUMAN 25% 12.5 GM/50ML 50 ML IVPB ×6 (08:55→10:39)
[2023-01-14] MEDS: INSULIN GLARGINE (*BKC) 100 UNITS/ML 12 UNITS SUB-Q ×2 (09:43→20:42)
[2023-01-14] MEDS: ATORVASTATIN 40 MG TABLET 80 MG PO (09:43)
[2023-01-14] MEDS: ASPIRIN 325 MG TABLET PO (09:43)
[2023-01-14] MEDS: ENOXAPARIN 30 MG/0.3 ML SYRINGE SUB-Q (09:43)
[2023-01-14] MEDS: PANTOPRAZOLE SODIUM IV 40 MG VIAL IV PUSH (09:44)
[2023-01-14] MEDS: MINERAL OIL/WHITE PETROLATUM OINTMENT 1 APPLIC EACH EYE ×2 (09:44→20:33)
[2023-01-14] MEDS: TICAGRELOR 60 MG TABLET PO (09:44)
[2023-01-14] MEDS: SOD HYPOCHLORITE 1/4 STRENGTH 473 ML 1 APPLIC TOPICAL ×2 (09:45→20:20)
[2023-01-14] MEDS: TOLNAFTATE 1% POWDER 45 GM BTL 1 APPLIC TOPICAL ×2 (09:45→20:20)
[2023-01-14 09:53] LABS: Glucose Point of Care 184 mg/dl (65-105)
[2023-01-14] MEDS: EPOETIN ALFA-EPBX 10,000 UNITS/ML VIAL 10000 UNITS IV PUSH (10:00)
--- NOTE | 2023-01-14 11:36 | PM.PNNEP ---
Progress Note: A&P Assessment and Plan (1) End stage renal disease: Code(s): N18.6 - End stage renal disease Status: Chronic Assessment and Plan: HD today and continues dialysis 3x/week follow electrolytes, volume status, and clearance (2) Acute respiratory failure: Code(s): J96.00 - Acute respiratory failure, unspecified whether with hypoxia or hypercapnia Status: Acute Assessment and Plan: extubated on 01/08/23 -- reintubated 01/10/23 ongoing issue during this hospital stay (on 01/02/23 and 01/06/23) suspect this may have led to cardiac arrest on 01/02/23 Pulmonary recommendations noted (3) Cardiac arrest: Code(s): I46.9 - Cardiac arrest, cause unspecified Status: Acute Assessment and Plan: occurred on 01/02/23 precipitated by hypoglycemia and bradycardia ROSC after ~ 5 minutes s/p 1 round of epinephritine, bicarb, calcium chloride seemed more a respiratory arrest based on code blue note (4) Bacteremia: Code(s): R78.81 - Bacteremia Status: Acute Assessment and Plan: Staph bacteremia on 12/26 by admission cultures repeat blood cultures - growth to date previously on intermittent vancomycin source -- decubitus ulcers versus tunneled HD catheter versus something else? HD catheter was recently exchanged wounds undergoing dressing changes on ertapenem (5) Altered mental status: Code(s): R41.82 - Altered mental status, unspecified Status: Acute Assessment and Plan: improving prior to cardiac arrest was stable at the time of last extubation follow mentation CT of brain noted (6) Anemia: Code(s): D64.9 - Anemia, unspecified Status: Chronic Assessment and Plan: due to ESRD and possible acute illness Epogen with HD follow H/H (7) Decubitus ulcers: Code(s): L89.90 - Pressure ulcer of unspecified site, unspecified stage Status: Chronic Assessment and Plan: local wound care wound care nurse following (8) Diabetes: Qualifiers: Diabetes mellitus complication detail: with other circulatory complications Diabetes mellitus complication status: with circulatory complication Diabetes mellitus type: type 1 Qualified Code(s): E10.59 - Type 1 diabetes mellitus with other circulatory complications Code(s): E11.9 - Type 2 diabetes mellitus without complications Status: Chronic Assessment and Plan: on Accu-Cheks glycemic control per hospitalist/performance improvement coordinator Noted family discussion regarding possible withdrawal of care -- this seems reasonable and patient's quality of life has significantly deteriorated in the last several months as evidenced by his recurrent hospitalizations due to his chronic medical issues and problems as noted by this hospitalization as well. Will continue to follow. Subjective Date/time seen: 01/14/23 11:36 Tolerating hemodialysis treatment at the time of my visit (see on HD at ~ 11:20AM); remains intubated/sedated and on mechanical ventilation as well as levophed gtt to maintain MAP/blood pressure; no real significant change noted at this time; at bedside currently. Exam Narrative: General: ill appearing male intubated and on mechanical ventilation Heart: normal S1 and S2; no rub or gallop Lungs: coarse breath sounds throughout; decreased at bases Abdomen: soft with + bowel sounds; colostomy noted Extremities: no cyanosis or clubbing; left AKA and right BKA Skin: wounds present with dressings in place Objective Data Vital Signs Vital Signs: Vital Signs Temp Pulse Resp BP Pulse Ox O2 Del Method FiO2 01/14/23 11:17 92 100 Mechanical Ventilation 30 01/14/23 11:07 106/75 01/14/23 10:38 79/57 L 01/14/23 11:25 95 89/70 L 01/14/23 11:30 92 82/61 L 01/14/23 11:15 91 81/62 L 01/14/23 11:00 90 106/75 01/14/23 10:45
--- NOTE | 2023-01-14 11:36 | P.PNNP_ITS ---
Progress Note: A&P Assessment and Plan (1) End stage renal disease: Code(s): N18.6 - End stage renal disease Status: Chronic Assessment and Plan: * HD today and continues dialysis 3x/week * follow electrolytes, volume status, and clearance (2) Acute respiratory failure: Code(s): J96.00 - Acute respiratory failure, unspecified whether with hypoxia or hype rcapnia Status: Acute Assessment and Plan: * extubated on 01/08/23 -- reintubated 01/10/23 * ongoing issue during this hospital stay (on 01/02/23 and 01/06/23) * suspect this may have led to cardiac arrest on 01/02/23 * Pulmonary recommendations noted (3) Cardiac arrest: Code(s): I46.9 - Cardiac arrest, cause unspecified Status: Acute Assessment and Plan: * occurred on 01/02/23 * precipitated by hypoglycemia and bradycardia * ROSC after ~ 5 minutes * s/p 1 round of epinephritine, bicarb, calcium chloride * seemed more a respiratory arrest based on code blue note (4) Bacteremia: Code(s): R78.81 - Bacteremia Status: Acute Assessment and Plan: * Staph bacteremia on 12/26 by admission cultures * repeat blood cultures - growth to date * previously on intermittent vancomycin * source -- decubitus ulcers versus tunneled HD catheter versus something else? * HD catheter was recently exchanged * wounds undergoing dressing changes * on ertapenem (5) Altered mental status: Code(s): R41.82 - Altered mental status, unspecified Status: Acute Assessment and Plan: * improving prior to cardiac arrest * was stable at the time of last extubation * follow mentation * CT of brain noted (6) Anemia: Code(s): D64.9 - Anemia, unspecified Status: Chronic Assessment and Plan: * due to ESRD and possible acute illness * Epogen with HD * follow H/H (7) Decubitus ulcers: Code(s): L89.90 - Pressure ulcer of unspecified site, unspecified stage Status: Chronic Assessment and Plan: * local wound care * wound care nurse following (8) Diabetes: Qualifiers: Diabetes mellitus complication detail: with other circulatory complications Diabetes mellitus complication status: with circulatory complication Diabetes mellitus type: type 1 Qualified Code(s): E10.59 - Type 1 diabetes mellitus with other circulatory complications Code(s): E11.9 - Type 2 diabetes mellitus without complications Status: Chronic Assessment and Plan: * on Accu-Cheks * glycemic 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 Will continue to follow. Subjective Date/time seen: 01/14/23 11:36 Tolerating hemodialysis treatment at the time of my visit (see on HD at ~ 11:20AM); remains intubated/sedated and on mechanical ventilation as well as levophed gtt to maintain MAP/blood pressure; no real significant change noted at this time; at bedside currently. Exam Narrative: General: ill appearing male intubated and on mechanical ventilation Heart: normal S1 and S2; no rub or gallop Lungs: coarse breath sounds throughout; decreased at bases Abdomen: soft with + bowel sounds; colostomy noted Extremities: no cyanosi
--- NOTE | 2023-01-14 12:26 | PC.NURSE ---
Dialysis treatment noted to be done on noon assessment of patient. Sedation paused at [address] Amin.
[2023-01-14 12:32] LABS: Glucose Point of Care 158 mg/dl (65-105)
--- NOTE | 2023-01-14 14:35 | PM.IMPN ---
Progress Note: A&P Assessment and Plan (1) Respiratory failure: Code(s): J96.90 - Respiratory failure, unspecified, unspecified whether with hypoxia or hypercapnia Status: Acute Assessment and Plan: Respiratory failure/respiratory arrest which may have led to the cardiac arrest, intubated on 01/05/2023 -extubated on 01/08/2023 -reintubated on 01/10 -chest x-ray showed whiteout of right hemithorax likely combination of atelectasis and effusion -check CT chest -may need bronchoscopy -ABG reviewed and will increase PEEP to 8 -patient currently on vancomycin, imipenem which will be continued -continue bronchodilators 01/14/2023 interval history: 57-year-old male with history of diabetes end-stage renal disease on hemodialysis currently on ventilator unable to provide any review of symptoms or history, respiratory failure suspect due to pneumonia and secretion as patient is quite debilitated, patient family is considering withdrawal of care waiting for the other family member to arrive from out of town, will continue to monitor, on 01/13 patient daughter and freinds were present in the room, answered all their questions. today no family member is present, patient is receiving dialysis. (2) Cardiac arrest: Code(s): I46.9 - Cardiac arrest, cause unspecified Status: Acute Assessment and Plan: 01/05:Cardiac arrest could be related to hypoglycemia, bradycardia secondary to multiple causes. Received 1 round of epi, bicarb, calcium chloride before ROSC, time was approximately 5 minutes.Patient's initial rhythm according the code blue sheet was bradycardia, patient had more so a respiratory arrest. He was intubated during the code. (3) Encephalopathy: Code(s): G93.40 - Encephalopathy, unspecified Status: Acute Assessment and Plan: Currently intubated. (4) Sepsis: Code(s): A41.9 - Sepsis, unspecified organism Status: Acute Assessment and Plan: -12/26/2022 blood cultures are positive for Staph epidermidis and Staph hominis 2/2 bottles -12/27/2022 respiratory cultures grew ESBL E coli -12/27/2022 MRSA screen was negative -12/29/2022 repeat blood cultures: Negative x2 -01/05/2023 blood cultures have been obtained 01/05/2023: post arrest patient was hypotensive requiring Levophed but later Levophed was weaned off -continue to maintain MAP > 65 mmHg for adequate end organ perfusion -patient was started on Zosyn by hospitalist, question of aspiration, Zosyn was discontinued and patient was started on vancomycin and ertapenem -continues to be on vancomycin ertapenem -12/27/2022 Echocardiogram did not show any vegetations. Repeat cultures done on 01/05 have been negative -Patient is not sure when he received the tunneled dialysis catheter and where it was done. He states it was probably done at [facility] few months ago but I do not see any operative note regarding tunneled dialysis catheter placement going back last year. -wound care team is following the patient (5) End stage renal disease: Code(s): N18.6 - End stage renal disease Status: Chronic Assessment and Plan: Patient has a history of end-stage renal disease, on dialysis -he is very sensitive to volume overload and has been admitted to the hospital multiple times for the same reason -dialysis per Nephrology, (6) Pulmonary edema: Code(s): J81.1 - Chronic pulmonary edema Status: Acute Assessment and Plan: Continue dialysis per Nephrology (7) Decubitus ulcer of sacral area: Code(s): L89.159 - Pressure ulcer of sacral region, unspecified stage Status: Chronic Assessment and Plan: Wound care evaluated the patient and recommendations for wound care appreciated (8) IDDM (insulin dependent diabetes mellitus): Status: Chronic Assessment and Plan: -blood sugars are fluctuating -continue Lantus and sliding scale -start tube feeds (9) Ane
[2023-01-14] MEDS: ERTAPENEM SODIUM 0.5 GM in SODIUM CHLORIDE 0.9% IV 50 ML IVPB (17:07)
[2023-01-14] MEDS: NOREPINEPHRINE 8 MG/D5W 250 ML 8 MG/250 ML BAG 9.38 MG IV CONT (17:50)
[2023-01-14] MEDS: MIDAZOLAM 100MG/NS 100ML(*CRX) 100 MG/100 ML BAG IV CONT (18:07)
[2023-01-14] MEDS: FENTANYL 2,500MCG/NS250ML(*CRX 2,500 MCG/250 ML BAG IV CONT (18:08)
[2023-01-14 18:55] LABS: Glucose Point of Care 235 mg/dl (65-105)
[2023-01-14 20:48] LABS: Glucose Point of Care 318 mg/dl (65-105)
[2023-01-15] VITALS (45 sets, daily range): BP systolic 74–143; BP diastolic 53–85; PULSE 77–114; RESP 16–34; TEMP 36.6–36.9; O2SAT 92–100
[2023-01-15] MEDS: METOCLOPRAMIDE HCL 10 MG TABLET FEED TUBE ×4 (00:17→18:30)
[2023-01-15 00:20] LABS: Glucose Point of Care 254 mg/dl (65-105)
[2023-01-15] MEDS: INSULIN ASPART (*BKC) 100 UNITS/ML SUB-Q ×3 (00:20→16:43)
[2023-01-15] MEDS: LEVALBUTEROL NEB 1.25 MG/3 ML 0.63 MG INHALATION ×4 (02:25→20:19)
[2023-01-15] MEDS: CENTRAL LINE FLUSH 10 ML IV PUSH ×2 (05:07→13:56)
[2023-01-15] MEDS: HYDROCORTISONE SODIUM SUCCINATE 100 MG/2 ML VIAL IV PUSH ×3 (05:07→21:12)
[2023-01-15 05:17] LABS: Hematocrit 29.8 % (42.0-52.0); Hemoglobin 8.6 g/dL (14.0-18.0); Mean Corpuscular HGB Conc 28.9 g/dl (32-36); Mean Corpuscular Volume 103.8 fl (80-100); Mean Platelet Volume 10.3 fl (7.4-10.4); Platelet Count Result 614 k/mm3 (150-375); Red Blood Count 2.87 M/mm3 (4.6-6.20); Red Cell Distribution Width 22.3 % (11.5-14.5); White Blood Count 21.5 K/mm3 (4.5-10.0)
[2023-01-15 05:21] LABS: Alanine Aminotransferase 12 U/L (6-50); Albumin Level 4.2 g/dL (3.5-5.1); Alkaline Phosphatase 117 U/L (38-126); Anion Gap 8 mmol/L (8-16); Aspartate Amino Transferase 30 U/L (17-59); Bilirubin,Total 0.4 mg/dL (0.2-1.3); Blood Urea Nitrogen 75 mg/dL (9-20); Calcium 11.2 mg/dL (8.4-10.2); Carbon Dioxide 28 mmol/L (22-30); Chloride 104 mmol/L (98-107); Estimated Glomerular Filt Rate 31; Glucose 105 mg/dL (65-110); Magnesium 2.5 mg/dL (1.6-2.3); Potassium 3.3 mmol/L (3.4-5.0); Sodium 140 mmol/L (137-145)
--- NOTE | 2023-01-15 08:01 | WPDINTPN ---
Progress Note: A&P Assessment and Plan (1) Respiratory failure: Code(s): J96.90 - Respiratory failure, unspecified, unspecified whether with hypoxia or hypercapnia Status: Acute Assessment and Plan: Respiratory failure/respiratory arrest which may have led to the cardiac arrest, intubated on 01/05/2023 -extubated on 01/08/2023 -reintubated to 01/10 -chest x-ray showed whiteout of right hemithorax likely combination of atelectasis and effusion -01/10 CT chest Complete consolidation/atelectasis of the right lung, with extensive hyperdense material/appearance of the lung parenchyma, suggestive of aspiration. Associated small to small moderate right pleural effusion present. Patchy ground glass opacity in the lingula/anterior left upper lobe, with minimal tree-in-bud opacities in the left lower lobe. Findings are consistent with pneumonia/infectious process. - since then right lung has re-expanded and chest x-ray is improved - FiO2 down to 30%. PEEP to 5. - will attempt a weaning trial today. patient placed on PSV 5/5. Even if patient is able to be weaned from the ventilator he is at high risk of re-intubation due to weakness including airway and risk of aspiration - continue hemodialysis per Nephrology - patient was evaluated by pulmonology And Dr. Levy did not feel that bronchoscopy will give any additional benefit at this time since his lung has re-expanded -repeat blood are negative till now - Repeat sputum cultures are growing Pseudomonas - antibiotics as mention below -continue bronchodilators (2) Sepsis: Code(s): A41.9 - Sepsis, unspecified organism Status: Acute Assessment and Plan: -12/26/2022 blood cultures are positive for Staph epidermidis and Staph hominis / bottles -12/27/2022 respiratory cultures grew ESBL E coli -12/27/2022 MRSA screen was negative -12/29/2022 repeat blood cultures: Negative x2 -01/05/2023 blood cultures have been obtained 01/05/2023: post arrest patient was hypotensive requiring Levophed but later Levophed was weaned off -patient was started on Zosyn by hospitalist, question of aspiration, Zosyn was discontinued and patient was started on vancomycin and ertapenem Patient now intubated and appears to have right-sided pneumonia which could be aspiration he has completed 2 week course of vancomycin 3/1 repeat blood cultures are negative now 01/11 sputum cultures grew Pseudomonas 01/15 change are Ertapenem to cefepime - elevated WBC partially secondary to steroids that he is on as he is now afebrile -12/27/2022 Echocardiogram did not show any vegetations. Repeat cultures done on 01/05 have been negative -Patient is not sure when he received the tunneled dialysis catheter and where it was done. He states it was probably done at [facility] few months ago but I do not see any operative note regarding tunneled dialysis catheter placement going back last year. -wound care team is following the patient (3) Cardiac arrest: Code(s): I46.9 - Cardiac arrest, cause unspecified Status: Acute Assessment and Plan: 01/05:Cardiac arrest could be related to hypoglycemia, bradycardia secondary to multiple causes. Received 1 round of epi, bicarb, calcium chloride before ROSC, time was approximately 5 minutes.Patient's initial rhythm according the code blue sheet was bradycardia, patient had more so a respiratory arrest. He was intubated during the code. -cardiac arrest likely related to severe hypoglycemia, no further recommendations from Cardiology -chronically elevated troponins, within baseline level. No ischemic changes noted on EKG, no evidence of ACS per Cardiology (4) Encephalopathy: Code(s): G93.40 - Encephalopathy, unspecified Status: Acute Assessment and Plan: RESOLVED Post cardiac arrest Encephalopathy: Much improved Now sedated with Versed and fentanyl for acute respiratory failure and mechanical ventilation -continue to mo
[2023-01-15] MEDS: POTASSIUM CHLORIDE 20 MEQ PACKET (FOR LIQUID) 40 MEQ FEED TUBE (08:14)
[2023-01-15] MEDS: ATORVASTATIN 40 MG TABLET 80 MG PO (08:16)
[2023-01-15] MEDS: TICAGRELOR 60 MG TABLET PO (08:16)
[2023-01-15] MEDS: ASPIRIN 325 MG TABLET PO (08:16)
[2023-01-15] MEDS: MINERAL OIL/WHITE PETROLATUM OINTMENT 1 APPLIC EACH EYE ×2 (08:16→21:10)
[2023-01-15] MEDS: ENOXAPARIN 30 MG/0.3 ML SYRINGE SUB-Q (08:16)
[2023-01-15] MEDS: PANTOPRAZOLE SODIUM IV 40 MG VIAL IV PUSH (08:17)
[2023-01-15] MEDS: INSULIN GLARGINE (*BKC) 100 UNITS/ML 12 UNITS SUB-Q ×2 (08:21→21:23)
[2023-01-15] MEDS: TOLNAFTATE 1% POWDER 45 GM BTL 1 APPLIC TOPICAL ×2 (08:22→21:11)
[2023-01-15] MEDS: SOD HYPOCHLORITE 1/4 STRENGTH 473 ML 1 APPLIC TOPICAL ×2 (08:22→21:13)
[2023-01-15 09:26] LABS: Glucose Point of Care 140 mg/dl (65-105)
--- NOTE | 2023-01-15 11:38 | PM.PNNEP ---
Progress Note: A&P Assessment and Plan (1) End stage renal disease: Code(s): N18.6 - End stage renal disease Status: Chronic Assessment and Plan: HD yesterday and continues dialysis 3x/week follow electrolytes, volume status, and clearance (2) Acute respiratory failure: Code(s): J96.00 - Acute respiratory failure, unspecified whether with hypoxia or hypercapnia Status: Acute Assessment and Plan: extubated on 01/08/23 -- reintubated 01/10/23 ongoing issue during this hospital stay (on 01/02/23 and 01/06/23) suspect this may have led to cardiac arrest on 01/02/23 (3) Cardiac arrest: Code(s): I46.9 - Cardiac arrest, cause unspecified Status: Acute Assessment and Plan: occurred on 01/02/23 precipitated by hypoglycemia and bradycardia ROSC after ~ 5 minutes s/p 1 round of epinephritine, bicarb, calcium chloride seemed more a respiratory arrest based on code blue note (4) Bacteremia: Code(s): R78.81 - Bacteremia Status: Acute Assessment and Plan: Staph bacteremia on 12/26 by admission cultures repeat blood cultures - growth to date previously on intermittent vancomycin source -- decubitus ulcers versus tunneled HD catheter versus something else? HD catheter was recently exchanged wounds undergoing dressing changes on ertapenem (5) Altered mental status: Code(s): R41.82 - Altered mental status, unspecified Status: Acute Assessment and Plan: improving prior to cardiac arrest was stable at the time of last extubation follow mentation CT of brain noted (6) Anemia: Code(s): D64.9 - Anemia, unspecified Status: Chronic Assessment and Plan: due to ESRD and possible acute illness Epogen with HD follow H/H (7) Decubitus ulcers: Code(s): L89.90 - Pressure ulcer of unspecified site, unspecified stage Status: Chronic Assessment and Plan: local wound care wound care nurse following (8) Diabetes: Qualifiers: Diabetes mellitus complication detail: with other circulatory complications Diabetes mellitus complication status: with circulatory complication Diabetes mellitus type: type 1 Qualified Code(s): E10.59 - Type 1 diabetes mellitus with other circulatory complications Code(s): E11.9 - Type 2 diabetes mellitus without complications Status: Chronic Assessment and Plan: on Accu-Cheks 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 Will continue to follow. Subjective Date/time seen: 01/15/23 11:38 Tolerated dialysis yesterday with 1.8L fluid removal although it required increasing levophed gtt and and multiple doses of IV albumin to acheive this intervention; remains intubated/sedated and on mechanical ventilation with ongoing need for vasopressor support; no other issues/events overnight or earlier this morning. Exam Narrative: General: ill appearing male intubated and on mechanical ventilation Heart: normal S1 and S2; no rub Lungs: coarse breath sounds throughout; decreased at bases Abdomen: soft with + bowel sounds; colostomy noted Extremities: no cyanosis or clubbing; left AKA and right BKA Skin: dressings covering wounds Objective Data Vital Signs Vital Signs: Vital Signs Temp Pulse Resp BP Pulse Ox O2 Del Method FiO2 01/15/23 11:15 93 97 Mechanical Ventilation 30 01/15/23 11:38 114/72 01/15/23 08:00 100 Mechanical Ventilation 30 01/15/23 10:00 89 01/15/23 08:00 81 01/15/23 11:31 121/66 01/15/23 10:00 87 22 H 99/68 L 100 01/15
--- NOTE | 2023-01-15 11:38 | P.PNNP_ITS ---
Progress Note: A&P Assessment and Plan (1) End stage renal disease: Code(s): N18.6 - End stage renal disease Status: Chronic Assessment and Plan: * HD yesterday and continues dialysis 3x/week * follow electrolytes, volume status, and clearance (2) Acute respiratory failure: Code(s): J96.00 - Acute respiratory failure, unspecified whether with hypoxia or hypercapnia Status: Acute Assessment and Plan: * extubated on 01/08/23 -- reintubated 01/10/23 * ongoing issue during this hospital stay (on 01/02/23 and 01/06/23) * suspect this may have led to cardiac arrest on 01/02/23 (3) Cardiac arrest: Code(s): I46.9 - Cardiac arrest, cause unspecified Status: Acute Assessment and Plan: * occurred on 01/02/23 * precipitated by hypoglycemia and bradycardia * ROSC after ~ 5 minutes * s/p 1 round of epinephritine, bicarb, calcium chloride * seemed more a respiratory arrest based on code blue note (4) Bacteremia: Code(s): R78.81 - Bacteremia Status: Acute Assessment and Plan: * Staph bacteremia on 12/26 by admission cultures * repeat blood cultures - growth to date * previously on intermittent vancomycin * source -- decubitus ulcers versus tunneled HD catheter versus something else? * HD catheter was recently exchanged * wounds undergoing dressing changes * on ertapenem (5) Altered mental status: Code(s): R41.82 - Altered mental status, unspecified Status: Acute Assessment and Plan: * improving prior to cardiac arrest * was stable at the time of last extubation * follow mentation * CT of brain noted (6) Anemia: Code(s): D64.9 - Anemia, unspecified Status: Chronic Assessment and Plan: * due to ESRD and possible acute illness * Epogen with HD * follow H/H (7) Decubitus ulcers: Code(s): L89.90 - Pressure ulcer of unspecified site, unspecified stage Status: Chronic Assessment and Plan: * local wound care * wound care nurse following (8) Diabetes: Qualifiers: Diabetes mellitus complication detail: with other circulatory complications Diabetes mellitus complication status: with circulatory complication Diabetes mellitus type: type 1 Qualified Code(s): E10.59 - Type 1 diabetes mellitus with other circulatory complications Code(s): E11.9 - Type 2 diabetes mellitus without complications Status: Chronic Assessment and Plan: * on Accu-Cheks * glycemic control per hospitalist/dermatology nurse Noted family discussion regarding possible withdrawal of care -- this seems reasonable as patient's quality of life has significantly deteriorated in the last several months as evidenced by his recurrent hospitalizations due to his chronic medical issues and problems as noted by this hospitalization as well. Will continue to follow. Subjective Date/time seen: 01/15/23 11:38 Tolerated dialysis yesterday with 1.8L fluid removal although it required increasing levophed gtt and and multiple doses of IV albumin to acheive this intervention; remains intubated/sedated and on mechanical ventilation with ongoing need for vasopressor support; no other issues/events overnight or earlier this morning. Exam Narrative: General: ill appearing male intubated and on mechanical ventilation Heart: normal S1 and S2; no rub Lungs: coarse breath sounds throughout; decreased at bases Abdomen: soft with + bowel sounds; colostomy noted Extremities
[2023-01-15 12:26] LABS: Glucose Point of Care 296 mg/dl (65-105)
--- NOTE | 2023-01-15 14:07 | PM.IMPN ---
Progress Note: A&P Assessment and Plan (1) Respiratory failure: Code(s): J96.90 - Respiratory failure, unspecified, unspecified whether with hypoxia or hypercapnia Status: Acute Assessment and Plan: Respiratory failure/respiratory arrest which may have led to the cardiac arrest, intubated on 01/05/2023 -extubated on 01/08/2023 -reintubated on 01/10 -chest x-ray showed whiteout of right hemithorax likely combination of atelectasis and effusion -check CT chest -may need bronchoscopy -ABG reviewed and will increase PEEP to 8 -patient currently on vancomycin, imipenem which will be continued -continue bronchodilators 01/15/2023 interval history: 57-year-old male with history of diabetes end-stage renal disease on hemodialysis currently on ventilator unable to provide any review of symptoms or history, respiratory failure suspect due to pneumonia and secretion as patient is quite debilitated, patient family is considering withdrawal of care waiting for the other family member to arrive from out of town, will continue to monitor, on 01/13 patient daughter and freinds were present in the room, answered all their questions. today no family member is present, will continue to monitor and further recommendation to follow. (2) Cardiac arrest: Code(s): I46.9 - Cardiac arrest, cause unspecified Status: Acute Assessment and Plan: 01/05:Cardiac arrest could be related to hypoglycemia, bradycardia secondary to multiple causes. Received 1 round of epi, bicarb, calcium chloride before ROSC, time was approximately 5 minutes.Patient's initial rhythm according the code blue sheet was bradycardia, patient had more so a respiratory arrest. He was intubated during the code. (3) Encephalopathy: Code(s): G93.40 - Encephalopathy, unspecified Status: Acute Assessment and Plan: Currently intubated. (4) Sepsis: Code(s): A41.9 - Sepsis, unspecified organism Status: Acute Assessment and Plan: -12/26/2022 blood cultures are positive for Staph epidermidis and Staph hominis / bottles -12/27/2022 respiratory cultures grew ESBL E coli -12/27/2022 MRSA screen was negative -12/29/2022 repeat blood cultures: Negative x2 -01/05/2023 blood cultures have been obtained 01/05/2023: post arrest patient was hypotensive requiring Levophed but later Levophed was weaned off -continue to maintain MAP > 65 mmHg for adequate end organ perfusion -patient was started on Zosyn by hospitalist, question of aspiration, Zosyn was discontinued and patient was started on vancomycin and ertapenem -continues to be on vancomycin ertapenem -12/27/2022 Echocardiogram did not show any vegetations. Repeat cultures done on 01/05 have been negative -Patient is not sure when he received the tunneled dialysis catheter and where it was done. He states it was probably done at [facility] few months ago but I do not see any operative note regarding tunneled dialysis catheter placement going back last year. -wound care team is following the patient (5) End stage renal disease: Code(s): N18.6 - End stage renal disease Status: Chronic Assessment and Plan: Patient has a history of end-stage renal disease, on dialysis -he is very sensitive to volume overload and has been admitted to the hospital multiple times for the same reason -dialysis per Nephrology, (6) Pulmonary edema: Code(s): J81.1 - Chronic pulmonary edema Status: Acute Assessment and Plan: Continue dialysis per Nephrology (7) Decubitus ulcer of sacral area: Code(s): L89.159 - Pressure ulcer of sacral region, unspecified stage Status: Chronic Assessment and Plan: Wound care evaluated the patient and recommendations for wound care appreciated (8) IDDM (insulin dependent diabetes mellitus): Status: Chronic Assessment and Plan: -blood sugars are fluctuating -continue Lantus and sliding
--- NOTE | 2023-01-15 16:28 | PC.NURSE ---
Addendum entered by Brisa Gotti RN 01/15/23 16:34: Patient now reporting improvement in respiratory condition. Oxygen saturations noted to be 100% on 30% FiO2 with a respiratory rate of 19 breaths per minute. Original Note: At 1620, patient call light went off and patients family stated that patient was having difficulty breathing. Patients respiratory rate noted to be 43 breaths per minute. Patient diaphoretic with a heart rate of 106 and oxygen saturations of 91% on 30% FiO2. Patient stating that he is having difficulty breathing. Auscultation of lung sounds noted no difference to previous assessment. Lungs suctioned with moderate amount of thick creamy secretions. After suctioning, it was noted that patient was having little chest wall movement during inspiration, patients respiratory rate noted to be only 6 to 7 breaths per minute. After stimulation, no change in patients respiratory rate. Patients ventilator adjusted back to CMV mode with previously ordered settings, respiratory therapy and physician notified.
[2023-01-15 16:47] LABS: Glucose Point of Care 350 mg/dl (65-105)
[2023-01-15] MEDS: calcitrioL 0.25 MCG CAPSULE 1.25 MCG PO (21:08)
[2023-01-15 21:40] LABS: Glucose Point of Care 411 mg/dl (65-105)
[2023-01-15] MEDS: INSULIN ASPART (*BKC) 100 UNITS/ML 10 UNITS SUB-Q (22:56)
[2023-01-16] VITALS (25 sets, daily range): BP systolic 82–97; BP diastolic 64–70; PULSE 80–102; RESP 12–20; TEMP 36.4–36.7; O2SAT 99–100
[2023-01-16] MEDS: CENTRAL LINE FLUSH 20 ML IV PUSH (00:04)
[2023-01-16] MEDS: METOCLOPRAMIDE HCL 10 MG TABLET FEED TUBE ×2 (00:07→05:40)
[2023-01-16 00:11] LABS: Glucose Point of Care 295 mg/dl (65-105)
[2023-01-16] MEDS: LEVALBUTEROL NEB 1.25 MG/3 ML 0.63 MG INHALATION ×2 (02:44→07:20)
[2023-01-16 04:47] LABS: Glucose Point of Care 199 mg/dl (65-105)
[2023-01-16] MEDS: HYDROCORTISONE SODIUM SUCCINATE 100 MG/2 ML VIAL IV PUSH (05:39)
[2023-01-16] MEDS: CENTRAL LINE FLUSH 10 ML IV PUSH ×3 (05:41→23:56)
[2023-01-16 07:30] LABS: Glucose Point of Care 209 mg/dl (65-105)
--- NOTE | 2023-01-16 08:33 | WPDINTPN ---
Progress Note: A&P Assessment and Plan (1) Respiratory failure: Code(s): J96.90 - Respiratory failure, unspecified, unspecified whether with hypoxia or hypercapnia Status: Acute Assessment and Plan: Respiratory failure/respiratory arrest which may have led to the cardiac arrest, intubated on 01/05/2023 -extubated on 01/08/2023 -reintubated to 01/10 -chest x-ray showed whiteout of right hemithorax likely combination of atelectasis and effusion -01/10 CT chest Complete consolidation/atelectasis of the right lung, with extensive hyperdense material/appearance of the lung parenchyma, suggestive of aspiration. Associated small to small moderate right pleural effusion present. Patchy ground glass opacity in the lingula/anterior left upper lobe, with minimal tree-in-bud opacities in the left lower lobe. Findings are consistent with pneumonia/infectious process. - since then right lung has re-expanded and chest x-ray is improved - FiO2 down to 30%. PEEP to 5. - 3/5 failed weaning trial due to low tidal volumes. he was placed on pressure support of 10 which did improve rate and tidal volume and tolerated for few hours. Not ready for extubation at this time. Even if patient is able to be weaned from the ventilator he is at high risk of re-intubation due to weakness including airway and risk of aspiration - patient was evaluated by pulmonology And Dr. Levy did not feel that bronchoscopy will give any additional benefit at this time since his lung has re-expanded -repeat blood are negative till now - Repeat sputum cultures are growing Pseudomonas And patient on Pseudomonas - antibiotics as mention below -continue bronchodilators (2) Sepsis: Code(s): A41.9 - Sepsis, unspecified organism Status: Acute Assessment and Plan: -12/26/2022 blood cultures are positive for Staph epidermidis and Staph hominis 12/15 bottles -12/27/2022 respiratory cultures grew ESBL E coli -12/27/2022 MRSA screen was negative -12/29/2022 repeat blood cultures: Negative x2 -01/05/2023 blood cultures have been obtained 01/05/2023: post arrest patient was hypotensive requiring Levophed but later Levophed was weaned off -patient was started on Zosyn by hospitalist, question of aspiration, Zosyn was discontinued and patient was started on vancomycin and ertapenem Patient now intubated and appears to have right-sided pneumonia which could be aspiration he has completed 2 week course of vancomycin / repeat blood cultures are negative now 01/11 sputum cultures grew Pseudomonas 01/15 change are Ertapenem to cefepime - elevated WBC partially secondary to steroids that he is on as he is now afebrile -12/27/2022 Echocardiogram did not show any vegetations. Repeat cultures done on 01/05 have been negative -Patient is not sure when he received the tunneled dialysis catheter and where it was done. He states it was probably done at [facility] few months ago but I do not see any operative note regarding tunneled dialysis catheter placement going back last year. -wound care team is following the patient (3) Cardiac arrest: Code(s): I46.9 - Cardiac arrest, cause unspecified Status: Acute Assessment and Plan: 01/05:Cardiac arrest could be related to hypoglycemia, bradycardia secondary to multiple causes. Received 1 round of epi, bicarb, calcium chloride before ROSC, time was approximately 5 minutes.Patient's initial rhythm according the code blue sheet was bradycardia, patient had more so a respiratory arrest. He was intubated during the code. -cardiac arrest likely related to severe hypoglycemia, no further recommendations from Cardiology -chronically elevated troponins, within baseline level. No ischemic changes noted on EKG, no evidence of ACS per Cardiology (4) Encephalopathy: Code(s): G93.40 - Encephalopathy, unspecified Status: Acute Assessment and Plan: RESOLVED Post cardiac arrest Encephalopathy: M
[2023-01-16] MEDS: INSULIN ASPART (*BKC) 100 UNITS/ML SUB-Q (09:35)
[2023-01-16] MEDS: MINERAL OIL/WHITE PETROLATUM OINTMENT 1 APPLIC EACH EYE (09:36)
[2023-01-16] MEDS: INSULIN GLARGINE (*BKC) 100 UNITS/ML 12 UNITS SUB-Q (09:36)
--- NOTE | 2023-01-16 11:08 | PCFNICU ---
ICU Rounding Note: Pt current nutrition is NPO. Last recorded weight is 38.5 kg. Bowel Motility:colostomy Labs Reviewed:no labs to report Meds Noted:Reglan, Fentanyl, Versed, Lantus,Protonix, NovoLog Skin: Stage IV PU-Left Hip, Saccum Additional Notes: Patient remains on mechanical vent. Tube feedings discontinued at this time with plans for terminal wean today. Following daily in ICU rounds. Will reassess every 3 days.
--- NOTE | 2023-01-16 11:10 | P.PNCROSS_ITS ---
Event Note Event Note Event Note: Family has decided to proceed with comfort care and palliative extubation. I w ill use opioids, anxiolytics and other agents on as needed basis to promote comfort and discontinue all medical therapy, lab testing and invasive monitoring. all necessary orders placed I have discussed with primary physician who is also in agreement with plan
[2023-01-16] MEDS: LORazepam INJ (*CRX) 2 MG/ML VIAL IV PUSH ×10 (11:18→23:56)
[2023-01-16] MEDS: MORPHINE SULFATE INJ (*CRX) 10 MG/ML AMP 5 MG IV PUSH (11:18)
[2023-01-16] MEDS: MORPHINE SULFATE (*CRX) 2 MG/ML INJ 4 MG IV PUSH ×8 (12:23→22:24)
[2023-01-16] MEDS: MORPHINE 50 MG/NS 100ML (*CRX) 50 MG/100 ML BAG 8 MG IV CONT (23:56)
[2023-01-17] VITALS: PULSE 85
[2023-01-17 02:00] VITALS: PULSE 86
[2023-01-17] MEDS: LORazepam INJ (*CRX) 2 MG/ML VIAL IV PUSH ×5 (02:15→11:19)
[2023-01-17 03:57] VITALS: PULSE 88
[2023-01-17] MEDS: CENTRAL LINE FLUSH 10 ML IV PUSH (03:58)
[2023-01-17 06:00] VITALS: PULSE 89
--- NOTE | 2023-01-17 07:27 | PM.IMPN ---
Progress Note: A&P Assessment and Plan (1) Respiratory failure: Code(s): J96.90 - Respiratory failure, unspecified, unspecified whether with hypoxia or hypercapnia Status: Acute Assessment and Plan: Respiratory failure/respiratory arrest which may have led to the cardiac arrest, intubated on 01/05/2023 -extubated on 01/08/2023 -reintubated on 01/10 -chest x-ray showed whiteout of right hemithorax likely combination of atelectasis and effusion -check CT chest -may need bronchoscopy -ABG reviewed and will increase PEEP to 8 -patient currently on vancomycin, imipenem which will be continued -continue bronchodilators 01/16/2023 interval history:? 57-year-old male with history of diabetes end-stage renal disease on hemodialysis currently on ventilator unable to provide any review of symptoms or history,? respiratory failure suspect due to pneumonia and secretion as patient is quite debilitated,? patient family is considering withdrawal of care waiting for the other family member to arrive from out of town today and later today patient will be extubated, will continue to monitor, patient is present in the room, (2) Sepsis: Code(s): A41.9 - Sepsis, unspecified organism Status: Acute Assessment and Plan: -12/26/2022 blood cultures are positive for Staph epidermidis and Staph hominis / bottles -12/27/2022 respiratory cultures grew ESBL E coli -12/27/2022 MRSA screen was negative -12/29/2022 repeat blood cultures: Negative x2 -01/05/2023 blood cultures have been obtained 01/05/2023: post arrest patient was hypotensive requiring Levophed but later Levophed was weaned off -continue to maintain MAP > 65 mmHg for adequate end organ perfusion -patient was started on Zosyn by hospitalist, question of aspiration, Zosyn was discontinued and patient was started on vancomycin and ertapenem -continues to be on vancomycin ertapenem -12/27/2022 Echocardiogram did not show any vegetations. Repeat cultures done on 01/05 have been negative -Patient is not sure when he received the tunneled dialysis catheter and where it was done. He states it was probably done at [facility] few months ago but I do not see any operative note regarding tunneled dialysis catheter placement going back last year. -wound care team is following the patient (3) Cardiac arrest: Code(s): I46.9 - Cardiac arrest, cause unspecified Status: Acute Assessment and Plan: 01/05:Cardiac arrest could be related to hypoglycemia, bradycardia secondary to multiple causes. Received 1 round of epi, bicarb, calcium chloride before ROSC, time was approximately 5 minutes.Patient's initial rhythm according the code blue sheet was bradycardia, patient had more so a respiratory arrest. He was intubated during the code. (4) Encephalopathy: Code(s): G93.40 - Encephalopathy, unspecified Status: Acute Assessment and Plan: Currently intubated. (5) End stage renal disease: Code(s): N18.6 - End stage renal disease Status: Chronic Assessment and Plan: Patient has a history of end-stage renal disease, on dialysis -he is very sensitive to volume overload and has been admitted to the hospital multiple times for the same reason -dialysis per Nephrology, Subjective Date/time seen: 01/16/23 07:27 01/16/2023 interval history:? 57-year-old male with history of diabetes end-stage renal disease on hemodialysis currently on ventilator unable to provide any review of symptoms or history,? respiratory failure suspect due to pneumonia and secretion as patient is quite debilitated,? patient family is considering withdrawal of care waiting for the other family member to arrive from out of town today and later today patient will be extubated, will continue to monitor, patient is present in the room, Exam Narrative: Patient is comfortable, NAD HEENT: ET tube in place LUNGS: normal respiratory effort
--- NOTE | 2023-01-17 09:20 | PC.NURSE ---
This patient, Ish Corley, was received from icu on 01/17/23 at 0900. Patient/family oriented to unit policies and routines
[2023-01-17 11:20] VITALS: PULSE 89; RESP 14
[2023-01-17] MEDS: MORPHINE 50 MG/NS 100ML (*CRX) 50 MG/100 ML BAG 8 MG IV CONT (11:20)
--- NOTE | 2023-01-17 12:03 | PCNFU ---
Nutrition Follow-Up Complete: Inadequate Oral Intake as related to mechanical ventilation as evidenced by NPO. goal: Meet estimated nutritional needs patient is not meeting current goal. Pt current nutrition is NPO. Last recorded weight is 38.5 kg. Bowel Motility: colostomy Labs Reviewed:no labs to report Meds Noted:Ativan, Morphine Skin:left hip/sacrum-stage IV pressure ulcer. Additional Notes: Patient was extubated /. Comfort measures in place. Diet order: NPO. No further nutritional needs. Will monitor for LOS every 7 days.
--- NOTE | 2023-01-17 16:00 | PM.DS ---
DS: Admitting Diagnosis Discharge Date 01/17/2023 Admitting Diagnosis Shortness of breath DS: Discharge Diagnosis Discharge Diagnosis (1) Respiratory failure: Code(s): J96.90 - Respiratory failure, unspecified, unspecified whether with hypoxia or hypercapnia Status: Acute Assessment and Plan: Respiratory failure/respiratory arrest which may have led to the cardiac arrest, intubated on 01/05/2023 -extubated on 01/08/2023 -reintubated on 01/10 -chest x-ray showed whiteout of right hemithorax likely combination of atelectasis and effusion -check CT chest -may need bronchoscopy -ABG reviewed and will increase PEEP to 8 -patient currently on vancomycin, imipenem which will be continued -continue bronchodilators 01/16/2023 interval history:? 57-year-old male with history of diabetes end-stage renal disease on hemodialysis currently on ventilator unable to provide any review of symptoms or history,? respiratory failure suspect due to pneumonia and secretion as patient is quite debilitated,? patient family is considering withdrawal of care waiting for the other family member to arrive from out of town today and later today patient will be extubated, will continue to monitor, patient is present in the room, (2) Sepsis: Code(s): A41.9 - Sepsis, unspecified organism Status: Acute Assessment and Plan: -12/26/2022 blood cultures are positive for Staph epidermidis and Staph hominis 12/15 bottles -12/27/2022 respiratory cultures grew ESBL E coli -12/27/2022 MRSA screen was negative -12/29/2022 repeat blood cultures: Negative x2 -01/05/2023 blood cultures have been obtained 01/05/2023: post arrest patient was hypotensive requiring Levophed but later Levophed was weaned off -continue to maintain MAP > 65 mmHg for adequate end organ perfusion -patient was started on Zosyn by hospitalist, question of aspiration, Zosyn was discontinued and patient was started on vancomycin and ertapenem -continues to be on vancomycin ertapenem -12/27/2022 Echocardiogram did not show any vegetations. Repeat cultures done on 01/05 have been negative -Patient is not sure when he received the tunneled dialysis catheter and where it was done. He states it was probably done at [facility] few months ago but I do not see any operative note regarding tunneled dialysis catheter placement going back last year. -wound care team is following the patient (3) Cardiac arrest: Code(s): I46.9 - Cardiac arrest, cause unspecified Status: Acute Assessment and Plan: 01/05:Cardiac arrest could be related to hypoglycemia, bradycardia secondary to multiple causes. Received 1 round of epi, bicarb, calcium chloride before ROSC, time was approximately 5 minutes.Patient's initial rhythm according the code blue sheet was bradycardia, patient had more so a respiratory arrest. He was intubated during the code. (4) Encephalopathy: Code(s): G93.40 - Encephalopathy, unspecified Status: Acute Assessment and Plan: Currently intubated. (5) End stage renal disease: Code(s): N18.6 - End stage renal disease Status: Chronic Assessment and Plan: Patient has a history of end-stage renal disease, on dialysis -he is very sensitive to volume overload and has been admitted to the hospital multiple times for the same reason -dialysis per Nephrology, DS: Summary Hospital Course Reason for hospitalization: Shortness of breath Narrative: This is a 57-year-old male patient who resides at long-term facility he has a history of end-stage renal disease on dialysis Monday, congestive heart failure extensive decubitus ulcers, diabetes and congestive heart failure.? The patient came to the emergency room to be evaluated for altered mental status.? They found him to be saturating 70% via EMS.? Patient was placed on a 15 L nasal cannula and upon arrival to the emergency room the patient was foun
== END 2023-01-17 12:29 | disposition hospice, inpatient (51) | DRG 870 ==
LOC: ANHED 10:40 → ANHICU 15:55 → ANH2MED 12-29 13:40 → ANHICU 01-02 12:45 → ANH3MEDSUR 01-03 17:39 → ANHICU 01-05 05:16 → ANH2MED 01-18 10:34
PROVIDERS: Hospitalist; Internal Medicine; Internal Medicine Nephrology; Nurse Practitioner; Admitting Provider Chiropractor; Emergency Provider Emergency Medicine; PCP Internal Medicine; Visit Provider Family Medicine
DX: A41.9 Sepsis, unspecified organism (principal); N18.6 End stage renal disease; J96.90 Respiratory failure, unspecified, unspecified whether with hypoxia or hypercapnia; I46.9 Cardiac arrest, cause unspecified; R65.21 Severe sepsis with septic shock; J81.1 Chronic pulmonary edema; G93.49 Other encephalopathy; E11.22 Type 2 diabetes mellitus with diabetic chronic kidney disease; E16.2 Hypoglycemia, unspecified; L89.159 Pressure ulcer of sacral region, unspecified stage; Z66 Do not resuscitate; Z51.5 Encounter for palliative care; Z20.822 Contact with and (suspected) exposure to COVID-19
CPT/HCPCS: 31500; 36415; 36430; 36556; 36600; 70450; 71045; 71250; 80048; 80053; 80069; 80202; 82140; 82375; 82728; 82805; 82948; 83050; 83540; 83550; 83605; 83735; 84100; 84443; 84484; 85025; 85027; 85380; 85610; 85730; 86705; 86706; 86850; 86900; 86901; 86923; 87040; 87070; 87077; 87081; 87186; 87205; 87340; 87637; 92610; 93005; 93306; 94002; 94003; 94640; 96361; 96365; 96366; 96367; 96375; 99291; A9270; C1751; C9113; G0257; J0131; J0171; J0330; J0360; J0610; J0692; J1335; J1644; J1650; J1720; J1815; J1940; J2060; J2250; J2270; J2310; J2543; J2704; J2765; J2997; J3010; J3370; J7030; J7040; J7070; P9016; P9045; P9047; Q5105

== ENCOUNTER 2023-01-17 12:30 | HOS | payer OTHER, MEDICARE, MEDICAID, SELFPAY ==
[2023-01-17] MEDS: HYDROmorphone HCL/PF (*CRX) 50 MG in SODIUM CHLORIDE 0.9% IV 95 ML IV CONT (13:33)
[2023-01-17 14:00] VITALS: BP 91/52; PULSE 101; RESP 8; TEMP 36.7; O2SAT 72
--- NOTE | 2023-01-17 15:44 | PM.IMPN ---
Subjective Date/time seen: 01/17/23 15:44 Objective Data Vital Signs Vital Signs: Vital Signs - 24 hr 01/17/23 14:00 Temperature 98.1 F Pulse Rate 101 H Respiratory Rate 8 L Blood Pressure 91/52 L Pulse Oximetry 72 L Meds/Results Medications: Active Medications Generic Name Dose Route Start Last Admin Trade Name Freq PRN Reason Stop Dose Admin Artificial Tears 0 drop 01/17/23 12:40 Artificial Tears Ophth Soln 15 Ml Bottle EACH EYE Q12H PRN Dry Eye(s) Glycopyrrolate 0.1 mg 01/17/23 12:40 Glycopyrrolate Inj (*Sp) 0.2 Mg/Ml Vial IV PUSH Q4H PRN secretions Hydromorphone HCl 1 mg 01/17/23 12:44 Hydromorphone Hcl Inj (*Crx) 1 Mg/Ml Syr IV PUSH Q30M PRN Pain/SOB Hydromorphone HCl 50 mg/ 100 mls @ 2 mls/hr 01/17/23 13:00 01/17/23 13:33 Sodium Chloride IV CONT 1 mg/hr .Q24H MARTHA 2 mls/hr Administration 1 MG/HR Lorazepam 2 mg 01/17/23 12:40 Lorazepam Inj (*Crx) 2 Mg/Ml Vial IV PUSH Q1H PRN ANXIETY/RESTLESSNESS/SOB Prochlorperazine Edisylate 10 mg 01/17/23 12:40 Prochlorperazine Edisylate 10 Mg/2 Ml Vial IV PUSH Q6H PRN Nausea And Vomiting
--- NOTE | 2023-01-17 16:00 | PM.DS ---
DS: Summary Time Spent with Patient Time attestation: Total time spent providing and/or coordinating discharge services: Discharge Plan Discharge Attending physician on discharge: Jaleel Ibarra Discharging Clinician: Jaleel Ibarra Patient Disposition: Hospice - Home Activity: as tolerated Diet: as tolerated Discharge Instructions: patient is being discharged and will be admitted in the hospice care. Stand Alone Forms: General Discharge Information Discharge Medications: Continued acetaminophen [Mapap (acetaminophen)] 325 mg Tablet 650 mg PO Q4H PRN (Reason: Mild Pain (1-3) Or Fever) Qty: 60 0RF Brilinta 60 mg tablet 60 mg PO DAILY magnesium hydroxide [Milk of Magnesia] 400 mg/5 mL Suspension 30 ml PO HS PRN (Reason: Constipation) Rx Instructions: if no bm for 3 days vitamin B complex Capsule 1 cap PO DAILY cyanocobalamin (vitamin B-12) 1,000 mcg Capsule 1,000 mcg PO DAILY pantoprazole 40 mg Tablet,Delayed Release (Dr/Ec) 40 mg PO Q12HR Qty: 60 0RF Dang-Nilsa 0.8 mg Tablet 1 tablet PO DAILY aspirin 81 mg Tablet 81 mg PO DAILY cholecalciferol (vitamin D3) [Vitamin D3] 25 mcg (1,000 unit) Tablet 25 mcg PO DAILY albuterol sulfate 90 mcg/actuation HFA aerosol inhaler 1 puff INHALATION Q6H PRN (Reason: Shortness Of Breath) Adults Multivitamin 1 tab-cap PO DAILY ascorbic acid (vitamin C) 500 mg Tablet,Chewable 500 mg PO DAILY insulin glargine [Lantus U-100 Insulin] 100 unit/mL solution 10 unit SUBCUT Q12H lisinopril 10 mg tablet 10 mg PO DAILY calcitriol 0.25 mcg Capsule 1.25 mcg PO QMWF Rx Instructions: WITH DIALYSIS ertapenem 1 gram recon soln 1 g IV QMWF daptomycin 500 mg recon soln 600 mg IV QMWF cinacalcet 90 mg Tablet 90 mg PO QMWF Rx Instructions: AT DIALYSIS hydrocodone-acetaminophen 5-325 mg Tablet 1 tablet PO Q6H PRN (Reason: Pain Rated 4-6) Qty: 12 0RF lorazepam 0.5 mg tablet 1 mg PO BID PRN (Reason: Anxiety) Qty: 12 2RF nitroglycerin [Nitrostat] 0.4 mg tablet, sublingual 0.4 mg sublingual Q5MIN PRN (Reason: Chest Pain) Qty: 30 0RF ondansetron 4 mg tablet,disintegrating 4 mg PO Q8H PRN (Reason: nausea and vomiting) Qty: 30 1RF atorvastatin 80 mg tablet 80 mg PO DAILY Qty: 90 1RF nicotine 21 mg/24 hr patch 24 hour See Rx Instructions .ROUTE .COMPLEX Qty: 28 3RF Dose Instruction: APPLY 1 PATCH TRANSDERMALLY DAILY Rx Instructions: APPLY 1 PATCH TRANSDERMALLY DAILY sertraline 100 mg tablet See Rx Instructions .ROUTE .COMPLEX Qty: 90 1RF Dose Instruction: TAKE 1 TABLET BY MOUTH DAILY Rx Instructions: TAKE 1 TABLET BY MOUTH DAILY famotidine 20 mg tablet See Rx Instructions .ROUTE .COMPLEX Qty: 90 3RF Dose Instruction: TAKE 1 TABLET BY MOUTH EVERY DAY Rx Instructions: TAKE 1 TABLET BY MOUTH EVERY DAY gabapentin 300 mg capsule See Rx Instructions .ROUTE .COMPLEX Qty: 90 3RF Dose Instruction: TAKE 1 CAPSULE BY MOUTH EVERY DAY Rx Instructions: TAKE 1 CAPSULE BY MOUTH EVERY DAY No Action (DME) Mepilex Border 4 X 4 bandage See Rx Instructions .Route Qty: 5 0RF Rx Instructions: Right stump wound (DME) Dexcom G6 Transmitter Device See Rx Instructions .Route Qty: 1 3RF Rx Instructions: Use as directed replacing once every 90 days (DME) Dexcom G6 Sensor Device See Rx Instructions .Route Qty: 9 1RF Rx Instructions: Use as directed to monitor blood sugars. Change sensor every 10 days (DME) Dexcom G6 Harmonic Analyst Misc See Rx Instructions .Route Qty: 1 1RF Rx Instructions: Use as directed changing once per year Date of admission: 01/17/23 12:30 Primary Care Provider: FredyWade Admitting Provider: Sera Nicholson Attending physician on admission: Sera Nicholson
--- NOTE | 2023-01-17 16:24 | PM.IMHP ---
H&P: HPI History of Present Illness Date/Time: 01/17/23 16:24 Chief Complaint: respiratory failure Narrative: THis is a 58 year old male with history of type ! diabetes since age 10, CAD, B AKAs, ESRD on dialysis who presented to [facility] on 12/26/2022 with hypoxic respiratory failure. FOR[facility]LY [facility], [facility] Past Medical History Medical History Anemia Anxiety Benign prostatic hyperplasia Bradycardic cardiac arrest (07/23/20) In the setting of severe hyperkalemia, acute pulmonary edema, and respiratory failure Chronic anemia Chronic kidney failure Congestive heart failure Echo 03/06/2021 1. Complete two-dimensional, color flow and Doppler transthoracic echocardiogram is performed. 2. Left ventricular chamber dimension is mildly enlarged. 3. Left ventricular systolic function is mildly reduced, estimated at 55-60%. 4. There is severely increased left ventricular wall thickness. Speckled appearance of the myocardium. 5. The left ventricular diastolic function is grade I diastolic dysfunction. 6. Left atrial chamber dimension is mildly enlarged. 7. There is moderate aortic valve sclerosis. 8. The mitral valve annulus is severely calcified. 9. There is mild mitral valve regurgitation. 10. The mitral valve has thickened leaflets. 11. There is mild tricuspid valve regurgitation. 12. There is mild pulmonic regurgitation. Coronary artery disease With non STEMI in December 2019, with stent placed to the LAD. 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 Pacheco in June 2020. Gastroesophageal reflux disease Guillain-[place] Hypertension Noncompliance Pneumonia Pulmonary edema Renal osteodystrophy Seizure Secondary to hypoglycemia. ST elevation myocardial infarction (STEMI) (06/26/20) Secondary to abrupt stent thrombosis of the LAD. Tobacco dependence Type 1 diabetes mellitus Diagnosed at the age of 10. Complicated by retinopathy, nephropathy, and neuropathy. Hemoglobin A1c was 7.6% in July 2020. Upper GI bleed Vitamin D deficiency disease Surgical History Surgical History History of colostomy History of endoscopy (~06/27/20) History of femoropopliteal bypass 02/04/21 left common femoral endarterectomy with left femoral to below-knee popliteal artery bypass History of heart artery stent Stent in the LAD in December 2019. Patient had abrupt stent thrombosis of the previously placed stent to the LAD on June 26, 2020 left coronary with extraction thrombectomy and stenting distal to the original stent with upsizing of the original stent. History of spinal surgery Neurostimulator in place. History of transmetatarsal amputation of left foot 02/04/21 at [facility]. Status post above-knee amputation of left lower extremity February 2021 at [facility] Status post below knee amputation of right lower extremity (12/02/19) Performed as [facility]. Status post cataract extraction Status post creation of arteriovenous fistula Left upper extremity. Status post debridement Debridement of multiple wounds on several occasions including sacral, ischial, and stump wounds. Status post hemorrhoidectomy Family History Family History Father Hypertension Sibling Multiple myeloma Hypertension Mother Acute myelogenous leukemia Heart disease Social History Social History Social History: Patient resides in a fpc. Surrogate medical decision maker: Rosana Corley, spouse. Code status: Full code. Smoking packs per day: 1 Smoking cigarettes per day: 20.0 Years smoked: 40 Smoking pack-years: 40.00 Smoking status:
--- NOTE | 2023-01-17 16:33 | PM.IMHP ---
H&P: HPI History of Present Illness Date/Time: 01/17/23 16:33 Chief Complaint: respiratory failure Narrative: This is a 57 yo male with history of ESRD on hemodialysis, DM type 1 since age 10, CAD, and B AKA.He was admitted to [facility] on 12/26/2022 in hypoxic respiratory failure and required intubation. He required intubation, was extubated but required reintubation. He coded and was on pressors. Family decided on hospice care and he was extubated yesterday; he has not been awake since. He is on dilaudid and ativan for comfort and appears comfortable. His and 24 yo daughter are in the room with him. Review of Systems Review of Systems: He is unresponsive. Appears comfortable. states she believes he is comfortable. [facility] Past Medical History Medical History Anemia Anxiety Benign prostatic hyperplasia Bradycardic cardiac arrest (07/23/20) In the setting of severe hyperkalemia, acute pulmonary edema, and respiratory failure Chronic anemia Chronic kidney failure Congestive heart failure Echo 03/06/2021 1. Complete two-dimensional, color flow and Doppler transthoracic echocardiogram is performed. 2. Left ventricular chamber dimension is mildly enlarged. 3. Left ventricular systolic function is mildly reduced, estimated at 55-60%. 4. There is severely increased left ventricular wall thickness. Speckled appearance of the myocardium. 5. The left ventricular diastolic function is grade I diastolic dysfunction. 6. Left atrial chamber dimension is mildly enlarged. 7. There is moderate aortic valve sclerosis. 8. The mitral valve annulus is severely calcified. 9. There is mild mitral valve regurgitation. 10. The mitral valve has thickened leaflets. 11. There is mild tricuspid valve regurgitation. 12. There is mild pulmonic regurgitation. Coronary artery disease With non STEMI in December 2019, with stent placed to the LAD. 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 Pacheco in June 2020. Gastroesophageal reflux disease Guillain-[place] Hypertension Noncompliance Pneumonia Pulmonary edema Renal osteodystrophy Seizure Secondary to hypoglycemia. ST elevation myocardial infarction (STEMI) (06/26/20) Secondary to abrupt stent thrombosis of the LAD. Tobacco dependence Type 1 diabetes mellitus Diagnosed at the age of 10. Complicated by retinopathy, nephropathy, and neuropathy. Hemoglobin A1c was 7.6% in July 2020. Upper GI bleed Vitamin D deficiency disease Surgical History Surgical History History of colostomy History of endoscopy (~06/27/20) History of femoropopliteal bypass 02/04/21 left common femoral endarterectomy with left femoral to below-knee popliteal artery bypass History of heart artery stent Stent in the LAD in December 2019. Patient had abrupt stent thrombosis of the previously placed stent to the LAD on June 26, 2020 left coronary with extraction thrombectomy and stenting distal to the original stent with upsizing of the original stent. History of spinal surgery Neurostimulator in place. History of transmetatarsal amputation of left foot 02/04/21 at [facility]. Status post above-knee amputation of left lower extremity February 2021 at [facility] Status post below knee amputation of right lower extremity (12/02/19) Performed as [facility]. Status post cataract extraction Status post creation of arteriovenous fistula Left upper extremity. Status post debridement Debridement of multiple wounds on several occasions including sacral, ischial, and stump wounds. Status post hemorrhoidectomy Family History Family History Father Baljeete
--- NOTE | 2023-01-17 18:21 | PM.DDS ---
Discharge Summary Date and Time Date of : 01/17/23 Time of : 16:20 Probable Cause of Probable Cause of : End Stage renal disease, respiratory failure Summary Hospital Course: 57 yo male admitted with respiratory failure thought to be due to pneumonia. Developed sepsis, cardiac arrest. Worsened clinically in spite of aggressive treatment. Started on hospice care today. Additional Data Confirmation of as documented by pronouncing clinician: Pupillary Reflex, Palpable Pulses, Response to Stimuli, Heart Tones and Breath Sounds Name of Provider Notified: Dr Nicholson Time Provider Notified: 08:14 Provider Requests Autopsy: No Family Requests Autopsy: No Director Sales Training Notified: Yes Date [facility] Notified of : 01/17/23 Time [facility] Notified of : 16:39
== END 2023-01-17 16:20 | disposition expired | DRG 871 ==
PROVIDERS: Admitting Provider Internal Medicine Adolescent Medicine; PCP Internal Medicine; Visit Provider Internal Medicine Adolescent Medicine
DX: A41.9 Sepsis, unspecified organism (principal); G93.41 Metabolic encephalopathy; J96.90 Respiratory failure, unspecified, unspecified whether with hypoxia or hypercapnia; J18.9 Pneumonia, unspecified organism; N18.6 End stage renal disease; I13.2 Hypertensive heart and chronic kidney disease with heart failure and with stage 5 chronic kidney disease, or end stage renal disease; I50.40 Unspecified combined systolic (congestive) and diastolic (congestive) heart failure; E10.22 Type 1 diabetes mellitus with diabetic chronic kidney disease; I25.10 Atherosclerotic heart disease of native coronary artery without angina pectoris; Z89.612 Acquired absence of left leg above knee; Z89.611 Acquired absence of right leg above knee; Z51.5 Encounter for palliative care; Z99.2 Dependence on renal dialysis; Z87.891 Personal history of nicotine dependence
CPT/HCPCS: A9270; J1170